=== PATIENT | male | born 1955 | race Caucasian/White ===

== ENCOUNTER 2016-02-24 10:28 | Emergency (ER) | payer MEDICARE ==
[2016-02-24 10:49] VITALS: RESP 18
[2016-02-24] MEDS ORDERED: DIPHENOX-ATROP STARTER PACK 8 TAB BTL PO STA (11:06)
[2016-02-24] MEDS ORDERED: DIPHENOX-ATROP 2.5-0.025 MG 1 EACH TAB PO STA (11:06)
[2016-02-24] MEDS ORDERED: SODIUM CHLORIDE 0.9% 1,000 ML IV ONE (11:06)
--- NOTE | 2016-02-24 11:08 | ED ---
General Adult HPI - General Chief complaint: Nausea/Vomiting/Diarrhea Stated complaint: Vomiting/diarrhea Time Seen by Provider: 02/24/16 10:50 Source: patient, RN notes reviewed Mode of arrival: ambulatory Limitations: no limitations - History of Present Illness Initial comments: This is a 60-year-old male with a past medical history significant for prerenal renal failure. Patient comes in today because he has been vomiting for the last couple of days though he has not vomited at all in the last 24 hours. Patient states he started having significant diarrhea yesterday and continues today. Patient comes in because he believes he is dehydrated and is worried about having cause more renal failure. Patient denies any other significant medical problems he denies any drinking or smoking. Patient denies any chest pain palpitations difficulty breathing shortness of breath per patient denies any abdominal pain. Patient denies headache patient denies numbness weakness. Patient denies any lightheadedness dizziness or near syncopal episode. - Related Data Home Medications Medication Instructions Recorded Confirmed Escitalopram [Lexapro] 30 mg PO DAILY 06/05/13 02/24/16 Nitroglycerin Sl Tabs [Nitrostat] 0.4 mg SUBLINGUAL Q5M PRN 10/30/14 02/24/16 Albuterol Inhaler [Ventolin Hfa 1 - 2 puff INHALATION RT-Q6H PRN 07/22/15 Inhaler] Diphenox-Atrop 2.5-0.025 mg 2 tab PO QID PRN 07/22/15 02/24/16 [Lomotil] Levothyroxine Sodium [Synthroid] 50 mcg PO DAILY 07/22/15 02/24/16 Omeprazole [PriLOSEC] 40 mg PO DAILY 07/22/15 02/24/16 Promethazine [Phenergan] 25 mg PO Q8H PRN 07/22/15 02/24/16 Dicyclomine [Bentyl] 20 mg PO QID 10/03/15 02/24/16 cloNIDine HCL [Clonidine HCl] 0.1 mg PO TID 11/16/15 02/24/16 Allergies Allergy/AdvReac Type Severity Reaction Status Date / Time Beta-Blockers Allergy Rash/Hives Verified 02/24/16 10:49 (Beta-Adrenergic Bloc paroxetine HCl [From Paxil] AdvReac Severe ABD PAIN & Verified 02/24/16 10:49 CRAMPING Review of Systems ROS Statement: Those systems with pertinent positive or pertinent negative responses have been documented in the HPI. ROS Other: All systems not noted in ROS Statement are negative. Past Medical History Past Medical History: Coronary Artery Disease (CAD), Chest Pain / Angina, Eye Disorder, Hypertension, Myocardial Infarction ([place]), Musculoskeletal Disorder, Osteoarthritis (OA), Pneumonia, Renal Disease Additional Past Medical History / Comment(s): READING GLASSES, lumbar sacral spinal stenosis,DIVERTICULITIS, 10 MIs, blood clot in left ascending artery. Last Myocardial Infarction Date:: 2013 History of Any Multi-Drug Resistant Organisms: None Reported Past Surgical History: Back Surgery, Cholecystectomy, Heart Catheterization With Stent, Hernia Repair Additional Past Surgical History / Comment(s): COLONOSCOPY.EGD, ORIF LT ANKLE. BACK SURG. LT HAND SURGERY. RT KNEE ARTHROSC. RT ELBOW SURG. LUMBAR SPINE FUSION L3-L5 IN 1999. LUMBAR SPINE CYST REMOVAL AT L2 IN 2013. HIATAL HERNIA REPAIR, right shoulder arthroscopy, back injections, Past Anesthesia/Blood Transfusion Reactions: No Reported Reaction Date of Last Stent Placement:: 2013 Past Psychological History: No Psychological Hx Reported Smoking Status: Former smoker Past Alcohol Use History: None Reported Additional Past Alcohol Use History / Comment(s): quit smoking in 1983 SMOKED 10 -11 YEARS-1 PPD Past Drug Use History: Marijuana Additional Drug Use History / Comment(s): CURRENTLY USES MEDICAL MARIJUANA- USUALLY 2 JOINTS A DAY - Past Family History Mother Family Medical History: Thyroid Disorder Father Family Medical History: Diabetes Mellitus, Myocardial Infarction ([place]) Additional Family Medical History / Comment(s): TRIPLE BYPASS Sister(s) Family Medical History: Cancer Additional Family Medical History / Comment(s): SKIN CA General Exam - General Exam Comments Initial Comments: GENERAL: Patient is well-developed and well-nourished. Patient is nontoxic and well- hydrated and is in mild distress. ENT: Neck is soft and supple. No significant lymphadenopathy is noted. Oropharynx is clear. Slightly dry mucous membranes. Neck has full range of motion without eliciting any EYES: The sclera were anicteric and conjunctiva were pink and moist. Extraocular movements were intact and pupils were equal round and reactive to light. Eyelids were unremarkable. PULMONARY: Unlabored respirations. Good breath sounds bilaterally. No audible rales rhonchi or wheezing was noted. CARDIOVASCULAR: There is a regular rate and rhythm without any murmurs gallops or rubs. ABDOMEN: Soft and nontender with normal bowel sounds. SKIN: Skin is clear with no lesions or rashes and otherwise unremarkable. NEUROLOGIC: Patient is alert and oriented x3. Cranial nerves II through XII are grossly intact. Motor and sensory are also intact. Normal speech, volume and content. Symmetrical smile. MUSCULOSKELETAL: Normal extremities with adequate strength and full range of motion. LYMPHATICS: No significant lymphadenopathy is noted PSYCHIATRIC: Normal psychiatric evaluation. Limitations: no limitations Course Vital Signs 02/24/16 10:45 Temperature 99.0 F Pulse Rate 114 H Respiratory 18 Rate Blood Pressure 147/105 Medical Decision Making - Medical Decision Making Patient's creatinine is 1.4 to slightly elevated from norm. Patient was given a liter fluid in the emergency department. Patient was feeling better in the emergency department after he had some Lomotil as well. Patient will follow up with his primary medical care doctor in 2 days. - Lab Data Result diagrams: 02/24/16 11:13 02/24/16 11:13 Lab Results 02/24/16 02/24/16 Range/Units 11:13 11:13 WBC 10.5 (3.8-10.6) k/uL RBC 5.85 (4.30-5.90) m/uL Hgb 17.6 H D (13.0-17.5) gm/dL Hct 48.4 (39.0-53.0) % MCV 82.7 D (80.0-100.0) fL MCH 30.0 (25.0-35.0) pg MCHC 36.3 (31.0-37.0) g/dL RDW 13.3 (11.5-15.5) % Plt Count 294 (150-450) k/uL Neutrophils % 74 % Lymphocytes % 15 % Monocytes % 7 % Eosinophils % 1 % Basophils % 0 % Neutrophils # 7.8 H (1.3-7.7) k/uL Lymphocytes # 1.6 (1.0-4.8) k/uL Monocytes # 0.8 (0-1.0) k/uL Eosinophils # 0.1 (0-0.7) k/uL Basophils # 0.0 (0-0.2) k/uL Hyperchromasia Slight Sodium 136 L (137-145) mmol/L Potassium 3.8 (3.5-5.1) mmol/L Chloride 96 L (98-107) mmol/L Carbon Dioxide 21 L (22-30) mmol/L Anion Gap 19 mmol/L BUN 48 H (9-20) mg/dL Creatinine 1.42 H (0.66-1.25) mg/dL Est GFR (MDRD) Af Amer >60 (>60 ml/min/1.73 sqM) Est GFR (MDRD) Non-Af 51 (>60 ml/min/1.73 sqM) Glucose 123 H (74-99) mg/dL Calcium 9.8 (8.4-10.2) mg/dL Total Bilirubin 1.0 (0.2-1.3) mg/dL AST 36 (17-59) U/L ALT 59 (21-72) U/L Alkaline Phosphatase 115 (38-126) U/L Total Protein 7.9 (6.3-8.2) g/dL Albumin 4.8 (3.5-5.0) g/dL Disposition Clinical Impression: Renal insufficiency, Diarrhea, Dehydration Disposition: HOME SELF-CARE Instructions: Acute Diarrhea (ED) Additional Instructions: Patient she get blood drawn on the . And follow-up with his primary that afternoon. Referrals: Miki Nava DO [Primary Care Provider] - 1-2 days Time of Disposition: 12:16
[2016-02-24 11:43] LABS: Basophils % (A) 0 %; CH 30.9; CHCM 37.4; Eosinophils # (A) 0.1 k/uL (0-0.7); Eosinophils % (A) 1 %; HCT 48.4 % (39.0-53.0); HDW 2.91; Hyperchromasia Slight; Luc # (Auto) 0.23; Luc % (Auto) 2; Lymphocytes # (A) 1.6 k/uL (1.0-4.8); Lymphocytes % (A) 15 %; MCHC 36.3 g/dL (31.0-37.0); Mean Platelet Volume 6.7; Monocytes # (A) 0.8 k/uL (0-1.0); Monocytes % (A) 7 %; Neutrophils # (A) 7.8 k/uL (1.3-7.7); Neutrophils % (A) 74 %; RBC 5.85 m/uL (4.30-5.90); RDW 13.3 % (11.5-15.5); WBC 10.5 k/uL (3.8-10.6); WBC (Perox) 11.15
[2016-02-24 11:52] LABS: HGB 17.6 gm/dL (13.0-17.5); MCV 82.7 fL (80.0-100.0)
[2016-02-24 11:56] LABS: ALT 59 U/L (21-72); AST 36 U/L (17-59); Alkaline Phosphatase 115 U/L (38-126); Anion Gap 19 mmol/L; Blood Urea Nitrogen 48 mg/dL (9-20); Calcium 9.8 mg/dL (8.4-10.2); Carbon Dioxide 21 mmol/L (22-30); Chloride 96 mmol/L (98-107); Glucose 123 mg/dL (74-99); Non-African American GFR(MDRD) 51 (>60 ml/min/1.73 sqM); Potassium 3.8 mmol/L (3.5-5.1); Sodium 136 mmol/L (137-145); Total Protein 7.9 g/dL (6.3-8.2)
[2016-02-24 12:44] VITALS: BP 157/89; PULSE 68; TEMP 97.9
== END 2016-02-24 12:44 | disposition home or self-care (01) ==
LOC: EC 10:28
DX: N28.9 Disorder of kidney and ureter, unspecified (principal); E86.0 Dehydration; R19.7 Diarrhea, unspecified; Z79.899 Other long term (current) drug therapy; Z88.8 Allergy status to other drugs, medicaments and biological substances; Z87.891 Personal history of nicotine dependence; I10 Essential (primary) hypertension
CPT/HCPCS: 36415; 80053; 85025; 96360; 99284

== ENCOUNTER → 2016-02-26 | Outpatient (CLI) | payer MEDICARE ==
[2016-02-26 13:50] LABS: ALT 47 U/L (21-72); AST 35 U/L (17-59); Alkaline Phosphatase 109 U/L (38-126); Anion Gap 10 mmol/L; Blood Urea Nitrogen 17 mg/dL (9-20); Calcium 9.5 mg/dL (8.4-10.2); Carbon Dioxide 32 mmol/L (22-30); Chloride 98 mmol/L (98-107); Glucose 91 mg/dL (74-99); Non-African American GFR(MDRD) >60 (>60 ml/min/1.73 sqM); Potassium 4.3 mmol/L (3.5-5.1); Sodium 140 mmol/L (137-145); Total Bilirubin 0.5 mg/dL (0.2-1.3); Total Protein 6.7 g/dL (6.3-8.2)
== END | disposition home or self-care (01) ==
LOC: LABWHC1 12:36
PROVIDERS: ATTEND Emergency Medicine
DX: R19.7 Diarrhea, unspecified (principal); E86.0 Dehydration
CPT/HCPCS: 36415; 80053

== ENCOUNTER 2016-05-04 08:12 | Inpatient (IN) | payer MEDICARE ==
[2016-05-04] MEDS ORDERED: ONDANSETRON 4 MG/2 ML VIAL IVP STA (08:24)
[2016-05-04] MEDS ORDERED: SODIUM CHLORIDE 0.9% 1,000 ML IV ONE ×2 (08:24→09:16)
[2016-05-04] MEDS ORDERED: DICYCLOMINE 10 MG/ML 2 ML AMP IM STA (08:24)
--- NOTE | 2016-05-04 08:33 | ED ---
Nausea/Vomiting/Diarrhea HPI - General Chief complaint: Nausea/Vomiting/Diarrhea Stated complaint: Vomiting/dehydration Time Seen by Provider: 05/04/16 08:19 Source: patient Mode of arrival: wheelchair Limitations: no limitations - History of Present Illness Initial comments: This is a 61-year-old male with a history of what appears to be irritable bowel syndrome with multiple hospital visits and admissions in the past who presents emergency department for nausea, vomiting, and diarrhea. He states that the symptoms started yesterday. He's had multiple episodes of vomiting and has not been able to count them. He states that the last couple of times that he's vomited he has noticed some blood mixed in his vomit. It did not start out this way. He also admits to generalized abdominal cramping and one episode of diarrhea that was nonbloody. He does not state that the abdominal pain is located in the 1 spot of the abdomen. He states that just feels a generalized cramping. The patient is on Bentyl at home and also Protonix. He is seen Dr. Garland in the past who has worked him up for this recurring problem. He's also had an upper GI study performed. The patient denies any fevers or chills. No chest pain or shortness of breath. No dysuria or hematuria. He states that when this happens he gets very dehydrated and gets kidney failure. - Related Data Home Medications Medication Instructions Recorded Confirmed Escitalopram [Lexapro] 20 mg PO DAILY 06/05/13 05/04/16 Nitroglycerin Sl Tabs [Nitrostat] 0.4 mg SUBLINGUAL Q5M PRN 10/30/14 05/04/16 Albuterol Inhaler [Ventolin Hfa 1 - 2 puff INHALATION RT-Q6H PRN 07/22/15 Inhaler] cloNIDine HCL [Clonidine HCl] 0.1 mg PO TID 11/16/15 05/04/16 Levothyroxine Sodium [Synthroid] 75 mcg PO DAILY 05/04/16 05/04/16 Omeprazole 20 mg PO DAILY 05/04/16 05/04/16 Allergies Allergy/AdvReac Type Severity Reaction Status Date / Time Beta-Blockers Allergy Rash/Hives Verified 05/04/16 08:17 (Beta-Adrenergic Bloc paroxetine HCl [From Paxil] AdvReac Severe ABD PAIN & Verified 05/04/16 08:17 CRAMPING Review of Systems ROS Statement: Those systems with pertinent positive or pertinent negative responses have been documented in the HPI. ROS Other: All systems not noted in ROS Statement are negative. Past Medical History Past Medical History: Coronary Artery Disease (CAD), Chest Pain / Angina, Eye Disorder, Hypertension, Myocardial Infarction ([place]), Musculoskeletal Disorder, Osteoarthritis (OA), Pneumonia, Renal Disease Additional Past Medical History / Comment(s): READING GLASSES, lumbar sacral spinal stenosis,DIVERTICULITIS, 10 MIs, blood clot in left ascending artery. Last Myocardial Infarction Date:: 2013 History of Any Multi-Drug Resistant Organisms: None Reported Past Surgical History: Back Surgery, Cholecystectomy, Heart Catheterization With Stent, Hernia Repair Additional Past Surgical History / Comment(s): COLONOSCOPY.EGD, ORIF LT ANKLE. BACK SURG. LT HAND SURGERY. RT KNEE ARTHROSC. RT ELBOW SURG. LUMBAR SPINE FUSION L3-L5 IN 1999. LUMBAR SPINE CYST REMOVAL AT L2 IN 2013. HIATAL HERNIA REPAIR, right shoulder arthroscopy, back injections, Past Anesthesia/Blood Transfusion Reactions: No Reported Reaction Date of Last Stent Placement:: 2013 Past Psychological History: No Psychological Hx Reported Smoking Status: Former smoker Past Alcohol Use History: None Reported Additional Past Alcohol Use History / Comment(s): quit smoking in 1983 SMOKED 10 -11 YEARS-1 PPD Past Drug Use History: Marijuana Additional Drug Use History / Comment(s): CURRENTLY USES MEDICAL MARIJUANA- USUALLY 2 JOINTS A DAY - Past Family History Mother Family Medical History: Thyroid Disorder Father Family Medical History: Diabetes Mellitus, Myocardial Infarction ([place]) Additional Family Medical History / Comment(s): TRIPLE BYPASS Sister(s) Family Medical History: Cancer Additional Family Medical History / Comment(s): SKIN CA General Exam - General Exam Comments Initial Comments: Constitutional: Awake alert the patient appears uncomfortable Head: Normocephalic atraumatic Eyes: no conjunctival injection No scleral icterus EOMI Neck: No JVD Supple Heart: Tachycardia normal S1-S2 no murmurs Lungs: Clear to auscultation bilaterally No wheezing No rales Abdomen: Soft nondistended no objective tenderness on examination Extremities: Non edematous DP pulses intact Radial pulses intact Neuro: A&Ox3 No focal neurologic deficits Psych: Appropriate mood and affect Limitations: no limitations Course Vital Signs 05/04/16 05/04/1605/04/17 08:14 09:17 10:44 Temperature 96.4 F L 97.9 F Pulse Rate 114 H 94 95 Respiratory 22 18 18 Rate Blood Pressure 138/98 165/110 165/95 O2 Sat by Pulse 99 97 94 L Oximetry 05/04/16 11:30 Temperature Pulse Rate 94 Respiratory 18 Rate Blood Pressure 170/107 O2 Sat by Pulse 96 Oximetry - Reevaluation(s) Reevaluation #1: 05/04/16 08:42 EKG showing sinus tachycardia with a rate of 106. No ST segment changes or T- wave inversions. QTC is 470. Other intervals are normal. No ectopy. Medical Decision Making - Medical Decision Making This is a 61-year-old male presents emergency room for nausea and vomiting. He states that he's had this multiple times. The patient has multiple metabolic derangements including an acute kidney injury and lactic acidosis which is typical for him when this happens. The patient has not been hypotensive and has no signs of sepsis and thus I do not feel that the lactic acidosis is from a infectious cause. I did get a computed tomography scan because of his significant leukocytosis and it shows a possible small bowel obstruction proximally. I spoke with Dr. Malagon about this who recommended an NG tube and we placed on consult. Dr. Nava accepts the admission for fluid hydration. The patient is currently comfortable and has not had any episodes of vomiting since getting Zofran. Will be admitted for monitoring. All questions were answered. - Lab Data Result diagrams: 05/04/16 08:32 05/04/16 08:32 Lab Results 05/04/16 05/04/16 05/04/16 Range/Units 08:32 08:32 08:32 WBC 25.1 H* (3.8-10.6) k/uL RBC 6.34 H (4.30-5.90) m/uL Hgb 18.7 H D (13.0-17.5) gm/dL Hct 52.3 (39.0-53.0) % MCV 82.5 (80.0-100.0) fL MCH 29.6 (25.0-35.0) pg MCHC 35.8 (31.0-37.0) g/dL RDW 13.9 (11.5-15.5) % Plt Count 374 (150-450) k/uL Neutrophils % (Manual) 80.0 % Band Neutrophils % 2.0 % Lymphocytes % (Manual) 10.5 % Monocytes % (Manual) 7.5 % Neutrophils # (Manual) 20.6 H (1.3-7.7) k/uL Lymphocytes # (Manual) 2.6 (1.0-4.8) k/uL Monocytes # (Manual) 1.9 H (0-1.0) k/uL Nucleated RBCs 0 (0-0) /100 WBC Manual Slide Review Performed Large Platelets Present Hyperchromasia Slight Sodium 139 (137-145) mmol/L Potassium 3.8 (3.5-5.1) mmol/L Chloride 93 L (98-107) mmol/L Carbon Dioxide 13 L (22-30) mmol/L Anion Gap 33 mmol/L BUN 30 H (9-20) mg/dL Creatinine 4.96 H (0.66-1.25) mg/dL Est GFR (MDRD) Af Amer 14 (>60 ml/min/1.73 sqM) Est GFR (MDRD) Non-Af 12 (>60 ml/min/1.73 sqM) Glucose 182 H (74-99) mg/dL Plasma Lactic Acid [place] (0.7-2.0) mmol/L Calcium 12.0 H (8.4-10.2) mg/dL Magnesium 2.2 (1.6-2.3) mg/dL Total Bilirubin 1.5 H (0.2-1.3) mg/dL AST 45 (17-59) U/L ALT 47 (21-72) U/L Alkaline Phosphatase 175 H (38-126) U/L Total Protein 11.0 H (6.3-8.2) g/dL Albumin 6.3 H (3.5-5.0) g/dL Amylase 87 (30-110) U/L Lipase 122 (23-300) U/L Blood Type B Negative Blood Type Recheck No Antibody Screen NEGATIVE Spec Expiration Date 05/07/2016 - 233105/04/16 Range/Units 08:32 WBC (3.8-10.6) k/uL RBC (4.30-5.90) m/uL Hgb (13.0-17.5) gm/dL Hct (39.0-53.0) % MCV (80.0-100.0) fL MCH (25.0-35.0) pg MCHC (31.0-37.0) g/dL RDW (11.5-15.5) % Plt Count (150-450) k/uL Neutrophils % (Manual) % Band Neutrophils % % Lymphocytes % (Manual) % Monocytes % (Manual) % Neutrophils # (Manual) (1.3-7.7) k/uL Lymphocytes # (Manual) (1.0-4.8) k/uL Monocytes # (Manual) (0-1.0) k/uL Nucleated RBCs (0-0) /100 WBC Manual Slide Review Large Platelets Hyperchromasia Sodium (137-145) mmol/L Potassium (3.5-5.1) mmol/L Chloride (98-107) mmol/L Carbon Dioxide (22-30) mmol/L Anion Gap mmol/L BUN (9-20) mg/dL Creatinine (0.66-1.25) mg/dL Est GFR (MDRD) Af Amer (>60 ml/min/1.73 sqM) Est GFR (MDRD) Non-Af (>60 ml/min/1.73 sqM) Glucose (74-99) mg/dL Plasma Lactic Acid [place] 5.2 H* (0.7-2.0) mmol/L Calcium (8.4-10.2) mg/dL Magnesium (1.6-2.3) mg/dL Total Bilirubin (0.2-1.3) mg/dL AST (17-59) U/L ALT (21-72) U/L Alkaline Phosphatase (38-126) U/L Total Protein (6.3-8.2) g/dL Albumin (3.5-5.0) g/dL Amylase (30-110) U/L Lipase (23-300) U/L Blood Type Blood Type Recheck Antibody Screen Spec Expiration Date Disposition Clinical Impression: JOSIE (acute kidney injury), Lactic acidosis, SBO (small bowel obstruction) Disposition: ADMITTED IP TO THIS [facility] Condition: Stable
[2016-05-04 08:53] LABS: CH 30.9; CHCM 37.5; HCT 52.3 % (39.0-53.0); HDW 2.93; HGB 18.7 gm/dL (13.0-17.5); Hyperchromasia Slight; MCH 29.6 pg (25.0-35.0); MCHC 35.8 g/dL (31.0-37.0); MCV 82.5 fL (80.0-100.0); Mean Platelet Volume 6.9; RBC 6.34 m/uL (4.30-5.90); RDW 13.9 % (11.5-15.5); WBC (Perox) 27.22
[2016-05-04 08:55] LABS: WBC 25.1 k/uL (3.8-10.6)
[2016-05-04 08:59] LABS: Magnesium 2.2 mg/dL (1.6-2.3); Potassium 3.8 mmol/L (3.5-5.1); Total Bilirubin 1.5 mg/dL (0.2-1.3)
[2016-05-04 09:13] LABS: Add Differential Manual Differential
[2016-05-04 09:15] LABS: Large Platelets Present; Manual Review Performed; Nucleated Red Blood Cells 0 /100 WBC (0-0); Total Cells Counted 200
--- NOTE | 2016-05-04 09:17 | XR ---
EXAMINATION TYPE: XR abdomen acute w cxr DATE OF EXAM: 05/04/2016 9:01 AM COMPARISON: Previous exam, multiple view abdomen with chest x-ray 30 March 2015 HISTORY: Pain TECHNIQUE: Supine, upright, and left side down lateral decubitus views of the abdomen are obtained. FINDINGS: Surgical clips are present within the abdomen as on prior exam, postop change status post lumbar fusion. Sclerotic density and lucency may be indicative of osteonecrosis within the femoral he ads, there is no collapse. There are air-fluid levels without bowel obstruction. No pneumoperitoneum. Lung bases are clear. Cardiomediastinal silhouette, pulmonary vascularity and farhad no evident pneumo thorax or pleural effusion. IMPRESSION: Nonobstructive bowel gas pattern.
[2016-05-04] MEDS: SODIUM CHLORIDE 0.9% 1,000 ML IV SCH ×2 (09:21→16:51)
--- NOTE | 2016-05-04 10:06 | CT ---
EXAMINATION TYPE: CT abdomen pelvis wo con DATE OF EXAM: 05/04/2016 9:51 AM HISTORY: hematemesis CT DLP: 1133 mGycm. Automated Exposure Control for Dose Reduction was Utilized. TECHNIQUE: CT scan of the abdomen and pelvis is performed without oral or IV contrast. COMPARISON: CT abdomen and pelvis January 09, 2016. FINDINGS: Within the limitations of a non-contrast study, the following observations are made. LUNG BASES: Some linear scarring in both lung bases is redemonstrated and felt stable. Coronary arter y calcification or stent in the RCA distribution is redemonstrated. LIVER/GB: Cholecystectomy clips are again seen. Liver is diffusely low dense consistent with fatty in filtration. There is simple appearing 1.5 cm cyst in the inferior right hepatic lobe on axial image 2 8 redemonstrated. PANCREAS: No significant abnormality is seen. SPLEEN: There is 1.2 cm splenule in the inferior splenic hilum on axial image 32 redemonstrated. ADRENALS: No significant abnormality is seen. KIDNEYS: No renal stones or hydronephrosis is evident bilaterally. BOWEL: Evaluation bowel is suboptimal due to lack of enteric contrast. There is stable small hiatal h ernia. There is air-fluid level in distended stomach. There is air-fluid level and prominent first po rtion of duodenum. There is fluid prominence of the duodenal sweep. After ligament of Treitz proximal jejunum extends to right of abdomen with transition into nondistended small bowel in the remainder o f abdomen. There is nondistended colon identified. Normal-appearing appendix is seen from cecum. Ther e is occasional diverticula in the colon. No acute diverticulitis is evident. GENITAL ORGANS: No gross abnormality seen. LYMPH NODES: No greater than 1cm abdominal or pelvic lymph nodes are appreciated. OSSEOUS STRUCTURES: Postsurgical change in lower lumbar spine with bilateral laminectomy defects and spinous process resection is redemonstrated. There are posterior interpedicular rods and screws from L3 through L5 levels bilaterally redemonstrated. There is hemangioma in the right L1 vertebral body l evel redemonstrated. There is multilevel spurring in the visualized thoracic spine. There is linear sclerosis in both femoral heads superior aspect consistent with bilateral avascular n ecrosis. OTHER: Surgical clips left midabdomen is noted anteriorly on axial image 38. Additional clip is seen just right of midline on axial image 29. There is moderate calcified atherosclerotic change of aorta and branch vessels. IMPRESSION: There is dilated fluid still filled stomach with distention of duodenal sweep, just past ligament of Treitz jejunum goes back to right of midline with transition into nondistended bowel. A p roximal small bowel obstruction related to adhesions needs to BE considered. Advise nasogastric tube decompression and surgical consultation.
[2016-05-04] MEDS ORDERED: ACETAMINOPHEN IV (For NPO) 1,000 MG in EMPTY BAG 1 BAG IVPB ONE (11:36)
[2016-05-04] MEDS ORDERED: FAMOTIDINE 20 MG/2 ML VIAL IV STA (11:50)
[2016-05-04] MEDS ORDERED: NALOXONE 0.4 MG/ML 1 ML VIAL IV PRN (11:52)
[2016-05-04 13:54] LABS: Appearance,Urine Cloudy (Clear); Bacteria,Urine Rare /hpf; Bilirubin,Urine Negative (Negative); Glucose,Urine (UA) Negative (Negative); Ketones,Urine Trace (Negative); Leukocyte Esterase,Urine Negative (Negative); Mucus,Urine Few /hpf; Nitrite,Urine Negative (Negative); PH, Urine 5.5 (5.0-8.0); Particle Count 18183; Protein,Urine 2+ (Negative); RBC,Urine 1 /hpf (0-5); Specific Gravity,Urine 1.015 (1.001-1.035); UA Billing (MACRO vs. MICRO) MICRO; Urobilinogen,Urine <2.0 mg/dL (<2.0); WBC,Urine 9 /hpf (0-5)
[2016-05-04] MEDS: ACETAMINOPHEN IV (For NPO) 1,000 MG in EMPTY BAG 1 BAG IVPB PRN (18:10)
[2016-05-04] MEDS: hydrALAZINE HCL 20 MG/ML 1 ML VIAL IVP PRN (18:13)
[2016-05-04] MEDS: ONDANSETRON 4 MG/2 ML VIAL IVP PRN (19:45)
[2016-05-04] MEDS: FAMOTIDINE 20 MG TAB PO SCH (21:29)
[2016-05-05] MEDS: ACETAMINOPHEN IV (For NPO) 1,000 MG in EMPTY BAG 1 BAG IVPB PRN ×2 (00:03→07:31)
[2016-05-05] MEDS: SODIUM CHLORIDE 0.9% 1,000 ML IV SCH ×3 (00:44→16:51)
[2016-05-05] MEDS: LEVOTHYROXINE 75 MCG TAB PO SCH (05:07)
[2016-05-05] MEDS: FAMOTIDINE 20 MG TAB PO SCH (07:31)
[2016-05-05] MEDS: ESCITALOPRAM 20 MG TAB PO SCH (07:31)
[2016-05-05] MEDS: ONDANSETRON 4 MG/2 ML VIAL IVP PRN ×3 (07:35→23:05)
[2016-05-05 07:57] LABS: Basophils # (A) 0.1 k/uL (0-0.2); Basophils % (A) 0 %; CH 30.7; CHCM 36.9; Eosinophils % (A) 0 %; HCT 43.5 % (39.0-53.0); HDW 2.95; Luc # (Auto) 0.31; Luc % (Auto) 2; Lymphocytes # (A) 1.9 k/uL (1.0-4.8); Lymphocytes % (A) 12 %; MCH 29.9 pg (25.0-35.0); MCHC 35.7 g/dL (31.0-37.0); MCV 83.7 fL (80.0-100.0); Mean Platelet Volume 7.5; Monocytes # (A) 0.9 k/uL (0-1.0); Monocytes % (A) 6 %; Neutrophils # (A) 12.7 k/uL (1.3-7.7); Neutrophils % (A) 80 %; RDW 13.9 % (11.5-15.5); WBC 15.9 k/uL (3.8-10.6)
[2016-05-05 08:08] LABS: HGB 15.5 gm/dL (13.0-17.5)
[2016-05-05 08:20] LABS: Calcium 9.6 mg/dL (8.4-10.2); Potassium 4.2 mmol/L (3.5-5.1); Total Bilirubin 1.5 mg/dL (0.2-1.3); Total Protein 7.4 g/dL (6.3-8.2)
[2016-05-05] MEDS ORDERED: Magnesium Replacement Protocol 1 EACH MISC MISCELLANE PRN (08:28)
[2016-05-05] MEDS: hydrALAZINE HCL 20 MG/ML 1 ML VIAL IVP PRN ×2 (09:05→15:29)
[2016-05-05] MEDS: MAGNESIUM SULFATE-D5W PMX 1 GM in DEXTROSE/WATER 1 100ML.BAG IVPB SCH ×2 (09:08→09:38)
[2016-05-05] MEDS: PANTOPRAZOLE 40 MG/10 ML VIAL IVP SCH (09:44)
[2016-05-05] MEDS: IOHEXOL 350 MG/ML 25 ML BOTTLE (ORAL USE) PO PRN ×2 (11:51→13:05)
--- NOTE | 2016-05-05 13:12 | P.GSCN ---
History of Present Illness Consult date: 05/04/16 Reason for Consult: Possible small bowel obstruction Requesting physician: Ebenezer Doran History of present illness: Patient is a 61-year-old male, referred from Dr. Nava, with a medical history significant for diverticulitis and irritable bowel syndrome. Surgical history significant for cholecystectomy, hernia repair, colonoscopy, and EGD. Patient presented to the hospital with chief complaint of nausea and vomiting that started 1 day prior to admission associated with abdominal cramping and one episode of diarrhea that was nonbloody. No history of fevers, chills, shortness of breath, or chest pain. Acute abdominal series with nonobstructive bowel gas pattern. CT of the abdomen and pelvis with evidence of proximal bowel obstruction possible secondary to adhesions. Surgical consult requested for possible small bowel obstruction. Upon evaluation, patient is feeling better. Patient denies chills, nausea, or vomiting. Patient denies abdominal pain. Patient reports flatus without bowel movement. Nasogastric drainage with 1400 mL of brownish output in last 24 hours. Urine output adequate. Patient is urinating without difficulty. WBC decreased to 15.9. Hemoglobin 15.5. Past Medical History Past Medical History: Coronary Artery Disease (CAD), Chest Pain / Angina, Hyperlipidemia, Hypertension, Myocardial Infarction ([place]), Musculoskeletal Disorder, Osteoarthritis (OA), Pneumonia, Renal Disease Additional Past Medical History / Comment(s): Past abdominal pain with N/V and dehydration, renal problems with dehydration, lumbar sacral spinal stenosis, chronic low back pain with bilateral sciatica, pinched nerves in back, DIVERTICULITIS, 10 MIs, blood clot in left ascending artery, IBS, bronchitis, migraines, numbness/tingling bilateral feet. Last Myocardial Infarction Date:: 2013 History of Any Multi-Drug Resistant Organisms: None Reported Past Surgical History: Back Surgery, Cholecystectomy, Heart Catheterization With Stent, Hernia Repair, Orthopedic Surgery Additional Past Surgical History / Comment(s): COLONOSCOPY, EGD, ORIF LT ANKLE. BACK SURGERIES L/S fusion L3-L5, LT HAND SURGERY, RT KNEE ARTHROSC, RT ELBOW SURG, LUMBAR SPINE CYST REMOVAL AT L2 IN 2013, HIATAL HERNIA REPAIR, right shoulder arthroscopy, back injections. Past Anesthesia/Blood Transfusion Reactions: No Reported Reaction Date of Last Stent Placement:: 2013 Past Psychological History: No Psychological Hx Reported Additional Psychological History / Comment(s): Pt resides with his spouse. He uses a cane to ambulate. He drives. Smoking Status: Former smoker Past Alcohol Use History: None Reported Additional Past Alcohol Use History / Comment(s): Pt started smoking in 1971 and quit smoking in 1983. Past Drug Use History: Marijuana Additional Drug Use History / Comment(s): CURRENTLY USES MEDICAL MARIJUANA- USUALLY 2 JOINTS A DAY - Past Family History Mother Family Medical History: Thyroid Disorder Father Family Medical History: Diabetes Mellitus, Myocardial Infarction ([place]) Additional Family Medical History / Comment(s): [place], [place] in his 50's or 60's. from MVA when he was in his 80's Sister(s) Family Medical History: Cancer Additional Family Medical History / Comment(s): SKIN CA Medications and Allergies Home Medications Medication Instructions Recorded Confirmed Type Escitalopram [Lexapro] 20 mg PO DAILY 06/05/13 05/04/16 History Nitroglycerin Sl Tabs [Nitrostat] 0.4 mg SUBLINGUAL Q5M PRN 10/30/14 05/04/16 History Albuterol Inhaler [Ventolin Hfa 1 - 2 puff INHALATION RT-Q6H PRN 07/22/15 History Inhaler] cloNIDine HCL [Clonidine HCl] 0.1 mg PO TID 11/16/15 05/04/16 History Levothyroxine Sodium [Synthroid] 75 mcg PO DAILY 05/04/16 05/04/16 History Omeprazole 20 mg PO DAILY 05/04/16 05/04/16 History Allergies Allergy/AdvReac Type Severity Reaction Status Date / Time Beta-Blockers Allergy Rash/Hives Verified 05/04/16 08:17 (Beta-Adrenergic Bloc paroxetine HCl [From Paxil] AdvReac Severe ABD PAIN & Verified 05/04/16 08:17 CRAMPING Surgical - Exam Vital Signs Temp Pulse Resp BP Pulse Ox 96.4 F L 114 H 22 138/98 99 05/04/16 08:14 05/04/16 08:14 05/04/16 08:14 05/04/16 08:14 05/04/16 08:14 GENERAL: Pt awake and alert, well-appearing, well-nourished, and in no acute distress. HEAD: Atraumatic, normocephalic. EYES: Pupils equal, round, and reactive to light, extraocular movements intact, sclera anicteric, conjunctiva are normal. ENT: Moist mucous membranes. Nasogastric tube to low intermittent suction with brownish output. NECK:Supple without lymphadenopathy or JVD. LUNGS: Breath sounds clear to auscultation bilaterally. No wheezes, rales, or rhonchi. HEART: Heart S1, S2, no S3 or S4. Regular rate and rhythm. No murmurs, rubs or gallops. ABDOMEN: Soft, nontender, nondistended, normoactive bowel sounds. No guarding, no rebound. No masses or organomegaly appreciated. EXTREMITIES: Palpable peripheral pulses. No edema. No calf tenderness. NEUROLOGICAL: Pt oriented x 3. No focal deficits noted. Strength and sensation grossly intact. PSYCH: Normal mood, normal affect. SKIN: Warm, dry, intact. No rashes or lesions. Results - Labs 05/05/16 07:23 05/05/16 07:23 Abnormal Lab Results - Last 24 Hours (Table) 05/04/16 05/05/16 05/05/16 Range/Units 13:36 07:23 07:23 WBC 15.9 H (3.8-10.6) k/uL Neutrophils # 12.7 H (1.3-7.7) k/uL BUN 30 H (9-20) mg/dL Creatinine 1.49 H (0.66-1.25) mg/dL Glucose 112 H (74-99) mg/dL Total Bilirubin 1.5 H (0.2-1.3) mg/dL AST 125 H (17-59) U/L Urine Protein 2+ H (Negative) Urine Ketones Trace H (Negative) Urine Blood Moderate H (Negative) Urine WBC 9 H (0-5) /hpf Urine Bacteria Rare H (None) /hpf Hyaline Casts 7 H (0-2) /lpf Urine Mucus Few H (None) /hpf Diabetes panel 05/05/16 Range/Units 07:23 Sodium 141 (137-145) mmol/L Potassium 4.2 (3.5-5.1) mmol/L Chloride 104 (98-107) mmol/L Carbon Dioxide 22 (22-30) mmol/L BUN 30 H (9-20) mg/dL Creatinine 1.49 H (0.66-1.25) mg/dL Glucose 112 H (74-99) mg/dL Calcium 9.6 (8.4-10.2) mg/dL AST 125 H (17-59) U/L ALT 48 (21-72) U/L Alkaline Phosphatase 115 (38-126) U/L Total Protein 7.4 (6.3-8.2) g/dL Albumin 4.5 (3.5-5.0) g/dL Calcium panel 05/05/16 Range/Units 07:23 Calcium 9.6 (8.4-10.2) mg/dL Albumin 4.5 (3.5-5.0) g/dL Pituitary panel 05/05/16 Range/Units 07:23 Sodium 141 (137-145) mmol/L Potassium 4.2 (3.5-5.1) mmol/L Chloride 104 (98-107) mmol/L Carbon Dioxide 22 (22-30) mmol/L BUN 30 H (9-20) mg/dL Creatinine 1.49 H (0.66-1.25) mg/dL Glucose 112 H (74-99) mg/dL Calcium 9.6 (8.4-10.2) mg/dL Adrenal panel 05/05/16 Range/Units 07:23 Sodium 141 (137-145) mmol/L Potassium 4.2 (3.5-5.1) mmol/L Chloride 104 (98-107) mmol/L Carbon Dioxide 22 (22-30) mmol/L BUN 30 H (9-20) mg/dL Creatinine 1.49 H (0.66-1.25) mg/dL Glucose 112 H (74-99) mg/dL Calcium 9.6 (8.4-10.2) mg/dL Total Bilirubin 1.5 H (0.2-1.3) mg/dL AST 125 H (17-59) U/L ALT 48 (21-72) U/L Alkaline Phosphatase 115 (38-126) U/L Total Protein 7.4 (6.3-8.2) g/dL Albumin 4.5 (3.5-5.0) g/dL - Imaging Abdominal x-ray: report reviewed CT scan - chest: report reviewed US - abdomen: report reviewed Assessment and Plan Plan: Impression: 1. Abdominal pain associated with nausea and vomiting, present on admission, suspect secondary to small bowel obstruction. Plan: 1. Repeat computed tomography scan of abdomen and pelvis with oral contrast. Continue IV hydration. Continue PPI. Continue supportive treatment and pain management. Keep patient nothing by mouth. Continue to follow medical service. The above impression and plan have been discussed and directed by Dr. Fermin. Adryan KONG acting as scribe for Dr. Fermin.
--- NOTE | 2016-05-05 15:29 | P.HPIM ---
History of Present Illness H&P Date: 05/05/16 Chief Complaint: Nausea and vomiting Patient is a 61-year-old male, patient of Dr. Miki Nava in the outpatient setting with medical history significant for coronary artery disease with previous stent placement, angina, GERD, hypertension, myocardial infarction , osteoarthritis, renal disease, lumbosacral spinal stenosis, and opiate dependence with last opioid ingestion several months ago. Patient presented to the emergency department with complaints of abdominal pain associated with nausea, vomiting, and diarrhea onset 1 day. No history of fevers, chills, shortness of breath, chest pain, melena, hematemesis, or hematochezia. Admission lab work with evidence of severe dehydration and acute kidney injury. CT of abdomen and pelvis with evidence of possible small bowel obstruction. Patient was fluid resuscitated with 2 L of normal saline, nasogastric tube was inserted for small bowel decompression, and consult was requested to Dr. Fermin for surgical service. This morning, patient is feeling better. Currently denies nausea, vomiting, or diarrhea. Patient denies abdominal pain. Afebrile. Nasogastric tube remains in place to low intermittent suction with 1400 mL of brownish output in last 24 hours. Patient is urinating without difficulty. Passing flatus without bowel movement. Past Medical History Past Medical History: Coronary Artery Disease (CAD), Chest Pain / Angina, Hyperlipidemia, Hypertension, Myocardial Infarction ([place]), Musculoskeletal Disorder, Osteoarthritis (OA), Pneumonia, Renal Disease Additional Past Medical History / Comment(s): Past abdominal pain with N/V and dehydration, renal problems with dehydration, lumbar sacral spinal stenosis, chronic low back pain with bilateral sciatica, pinched nerves in back, DIVERTICULITIS, 10 MIs, blood clot in left ascending artery, IBS, bronchitis, migraines, numbness/tingling bilateral feet. Last Myocardial Infarction Date:: 2013 History of Any Multi-Drug Resistant Organisms: None Reported Past Surgical History: Back Surgery, Cholecystectomy, Heart Catheterization With Stent, Hernia Repair, Orthopedic Surgery Additional Past Surgical History / Comment(s): COLONOSCOPY, EGD, ORIF LT ANKLE. BACK SURGERIES L/S fusion L3-L5, LT HAND SURGERY, RT KNEE ARTHROSC, RT ELBOW SURG, LUMBAR SPINE CYST REMOVAL AT L2 IN 2014, HIATAL HERNIA REPAIR, right shoulder arthroscopy, back injections. Past Anesthesia/Blood Transfusion Reactions: No Reported Reaction Date of Last Stent Placement:: 2013 Past Psychological History: No Psychological Hx Reported Additional Psychological History / Comment(s): Pt resides with his spouse. He uses a cane to ambulate. He drives. Smoking Status: Former smoker Past Alcohol Use History: None Reported Additional Past Alcohol Use History / Comment(s): Pt started smoking in 1971 and quit smoking in 1983. Past Drug Use History: Marijuana Additional Drug Use History / Comment(s): CURRENTLY USES MEDICAL MARIJUANA- USUALLY 2 JOINTS A DAY - Past Family History Mother Family Medical History: Thyroid Disorder Father Family Medical History: Diabetes Mellitus, Myocardial Infarction ([place]) Additional Family Medical History / Comment(s): TRIPLE [place], [place] in his 50's or 60's. from MVA when he was in his 80's Sister(s) Family Medical History: Cancer Additional Family Medical History / Comment(s): SKIN CA Medications and Allergies Home Medications Medication Instructions Recorded Confirmed Type Escitalopram [Lexapro] 20 mg PO DAILY 06/05/13 05/04/16 History Nitroglycerin Sl Tabs [Nitrostat] 0.4 mg SUBLINGUAL Q5M PRN 10/30/14 05/04/16 History Albuterol Inhaler [Ventolin Hfa 1 - 2 puff INHALATION RT-Q6H PRN 07/22/15 History Inhaler] cloNIDine HCL [Clonidine HCl] 0.1 mg PO TID 11/16/15 05/04/16 History Levothyroxine Sodium [Synthroid] 75 mcg PO DAILY 05/04/16 05/04/16 History Omeprazole 20 mg PO DAILY 05/04/16 05/04/16 History Allergies Allergy/AdvReac Type Severity Reaction Status Date / Time Beta-Blockers Allergy Rash/Hives Verified 05/04/16 08:17 (Beta-Adrenergic Bloc paroxetine HCl [From Paxil] AdvReac Severe ABD PAIN & Verified 05/04/16 08:17 CRAMPING Physical Exam Vitals: Vital Signs Temp Pulse Resp BP Pulse Ox 05/05/16 12:12 110 H 157/91 05/05/16 07:00 97.4 F L 94 17 166/96 96 05/04/16 21:51 97.9 F 118 H 16 120/73 93 L 05/04/16 19:16 108 H 16 164/74 95 Intake and Output 0305/05/16 05/05/16 06:59 14:59 22:59 Intake Total 1000 2600 Output Total 1400 800 Balance -400 1800 Intake: IV 1000 1000 Sodium Chloride 0.9% 1, 1000 1000 000 ml @ 125 mls/hr IV . Q8H CYNDIE Rx#:[id number] Intake, IV Titration 400 Amount ACETAMINOPHEN IV (For NPO 400 ) 1,000 mg In Empty Bag 1 bag @ 400 mls/hr IVPB Q6HR PRN Rx#:[id number] Oral 1200 Output: Gastric Drainage 1400 800 Other: Voiding Method Urinal # Voids 2 3 # Bowel Movements 2 GENERAL: Pt awake and alert, well-appearing, well-nourished, and in no acute distress. HEAD: Atraumatic, normocephalic. EYES: Pupils equal, round, and reactive to light, extraocular movements intact, sclera anicteric, conjunctiva are normal. ENT: Moist mucous membranes. Nasogastric tube to low intermittent suction with brownish output. NECK:Supple without lymphadenopathy or JVD. LUNGS: Breath sounds clear to auscultation bilaterally. No wheezes, rales, or rhonchi. HEART: Heart S1, S2, no S3 or S4. Regular rate and rhythm. No murmurs, rubs or gallops. ABDOMEN: Soft, nontender, nondistended, normoactive bowel sounds. No guarding, no rebound. No masses or organomegaly appreciated. EXTREMITIES: Palpable peripheral pulses. No edema. No calf tenderness. NEUROLOGICAL: Pt oriented x 3. No focal deficits noted. Strength and sensation grossly intact. PSYCH: Normal mood, normal affect. SKIN: Warm, dry, intact. No rashes or lesions. Results CBC & Chem 7: 05/05/16 07:23 05/05/16 07:23 Labs: Abnormal Lab Results - Last 24 Hours (Table) 05/05/16 05/05/16 Range/Units 07:23 07:23 WBC 15.9 H (3.8-10.6) k/uL Neutrophils # 12.7 H (1.3-7.7) k/uL BUN 30 H (9-20) mg/dL Creatinine 1.49 H (0.66-1.25) mg/dL Glucose 112 H (74-99) mg/dL Total Bilirubin 1.5 H (0.2-1.3) mg/dL AST 125 H (17-59) U/L Abdominal x-ray: report reviewed CT scan - chest: report reviewed CT scan - pelvis: report reviewed Thrombosis Risk Factor Assmnt - DVT/VTE Prophylaxis DVT/VTE Prophylaxis: Pharmacologic Prophylaxis ordered - Choose All That Apply Any of the Below Risk Factors Present?: Yes Each Factor Represents 1 point: Obesity (BMI >25) Other Risk Factors: Yes Each Risk Factor Represents 2 Points: Age 61-74 years Other congenital or acquired thrombophilia - If yes, enter type in comment: No Thrombosis Risk Factor Assessment Total Risk Factor Score: 3 Thrombosis Risk Factor Assessment Level: Moderate Risk Assessment and Plan Plan: Impression: 1. Abdominal pain associated with nausea and vomiting, present on admission, suspect secondary to small bowel obstruction. 2. Acute renal failure suspect secondary to hypovolemic intravascular perfusion suspect secondary to GI losses. 2. Leukocytosis, present on admission, suspect reactive. 3. Hypercalcemia suspect due to acute renal failure, suspect secondary to dehydration. 4. Coronary artery disease with history of myocardial infarction. 5. Hypertension. 6. Lumbosacral spinal stenosis with history of chronic back pain. 7. Anxiety and depression, stable. 8. History of diverticulitis. 9. History of nicotine dependence. 10. History of opiate dependence. 11. Medical marijuana use. Plan: 1. Repeat computed tomography scan of abdomen and pelvis with oral contrast. Continue IV hydration. Continue PPI. Continue supportive treatment and pain management. Keep patient nothing by mouth. Continue to follow with surgical service. The above impression and plan have been discussed and directed by Dr. Fermin. Adryan KONG acting as scribe for Dr. Fermin.
--- NOTE | 2016-05-05 15:47 | CT ---
EXAMINATION TYPE: CT abdomen pelvis wo con DATE OF EXAM: 05/05/2016 1:36 PM COMPARISON: Prior CT abdomen pelvis April HISTORY: Patient has no complaints at time of study. Follow up study for known small bowel obstructi on. CT DLP: 866.4 mGycm Automated exposure control for dose reduction was used. TECHNIQUE: Helical acquisition of images from the lung bases through the pelvis. FINDINGS: LUNG BASES: No significant abnormality is appreciated. AORTA: Stable LIVER/GB: Stable PANCREAS: Stable SPLEEN: Stable ADRENALS: Stable KIDNEYS: Stable REPRODUCTIVE ORGANS: No significant abnormality is seen. URINARY BLADDER: No significant abnormality is seen. BOWEL: Colonic wall thickening especially in the sigmoid is indeterminate and could be due to lack o f distention or muscular hypertrophy, colonic interposition anterior to the inferior aspect of the li maria elena is noted. NG tube is present with distal tip likely in the stomach. No bowel obstruction evident. FREE AIR: No Free Air is visible. ASCITES: None visible. PELVIC ADENOPATHY: None visualized. RETROPERITONEAL ADENOPATHY: No Retroperitoneal Adenopathy visible. OSSEOUS STRUCTURES: Stable IMPRESSION: Bowel obstruction is not evident.
[2016-05-05] MEDS: ACETAMINOPHEN IV (For NPO) 1,000 MG in EMPTY BAG 1 BAG IVPB SCH ×2 (18:06→23:06)
[2016-05-05] MEDS: HEPARIN SODIUM,PORCINE 5,000 UNIT/ML 1 ML VIAL SQ SCH (20:37)
[2016-05-06] MEDS: hydrALAZINE HCL 20 MG/ML 1 ML VIAL IVP PRN ×2 (04:12→23:02)
[2016-05-06] MEDS: ACETAMINOPHEN IV (For NPO) 1,000 MG in EMPTY BAG 1 BAG IVPB SCH ×2 (05:06→13:16)
[2016-05-06] MEDS: LEVOTHYROXINE 75 MCG TAB PO SCH (05:13)
[2016-05-06] MEDS: SODIUM CHLORIDE 0.9% 1,000 ML IV SCH ×2 (05:17→11:10)
[2016-05-06] MEDS: PANTOPRAZOLE 40 MG/10 ML VIAL IVP SCH (07:50)
[2016-05-06] MEDS: HEPARIN SODIUM,PORCINE 5,000 UNIT/ML 1 ML VIAL SQ SCH ×2 (07:50→21:10)
[2016-05-06] MEDS: ONDANSETRON 4 MG/2 ML VIAL IVP PRN (07:50)
[2016-05-06 08:39] LABS: Basophils % (A) 0 %; CH 30.4; CHCM 35.9; Eosinophils % (A) 0 %; HCT 43.2 % (39.0-53.0); HDW 2.89; HGB 14.7 gm/dL (13.0-17.5); Luc # (Auto) 0.26; Luc % (Auto) 3; Lymphocytes # (A) 1.9 k/uL (1.0-4.8); Lymphocytes % (A) 18 %; MCH 28.9 pg (25.0-35.0); MCHC 34.1 g/dL (31.0-37.0); Mean Platelet Volume 6.8; Monocytes # (A) 0.7 k/uL (0-1.0); Monocytes % (A) 7 %; Neutrophils # (A) 7.4 k/uL (1.3-7.7); Neutrophils % (A) 72 %; RBC 5.09 m/uL (4.30-5.90); WBC 10.4 k/uL (3.8-10.6); WBC (Perox) 10.91
[2016-05-06 09:01] LABS: ALT 52 U/L (21-72); AST 118 U/L (17-59); Alkaline Phosphatase 99 U/L (38-126); Anion Gap 13 mmol/L; Blood Urea Nitrogen 20 mg/dL (9-20); Calcium 9.3 mg/dL (8.4-10.2); Carbon Dioxide 22 mmol/L (22-30); Chloride 105 mmol/L (98-107); Glucose 106 mg/dL (74-99); Non-African American GFR(MDRD) >60 (>60 ml/min/1.73 sqM); Potassium 3.7 mmol/L (3.5-5.1); Sodium 140 mmol/L (137-145); Total Bilirubin 1.5 mg/dL (0.2-1.3); Total Protein 6.8 g/dL (6.3-8.2)
[2016-05-06] MEDS: cloNIDine HCL 0.1 MG TAB PO SCH ×3 (11:11→21:56)
[2016-05-06] MEDS: ESCITALOPRAM 20 MG TAB PO SCH (11:11)
--- NOTE | 2016-05-06 13:05 | P.PN ---
Subjective Patient is a 61-year-old male admitted with possible small bowel obstruction. Repeat Computed tomography scan of abdomen and pelvis from yesterday afternoon shows no evidence of bowel obstruction. Nasogastric tube has been removed. Patient is feeling better. Patient reports mild left upper quadrant abdominal pain. Denies chills, fevers, nausea, vomiting, shortness of breath, or chest pain. Patient is passing flatus and had 2 bowel movements. Patient urinating without difficulty. Patient is tolerating a clear liquid diet. Patient is asking to have his diet advanced, reports hunger. Afebrile. No evidence of leukocytosis. Objective - Vital Signs Vital signs: Vital Signs Temp 97.7 F 05/06/16 07:00 Pulse 102 H 05/06/16 07:00 Resp 17 05/06/16 07:00 BP 128/69 05/06/16 07:00 Pulse Ox 94 L 05/06/16 07:00 Intake & Output 05/05/16 05/06/16 05/06/16 18:59 06:59 18:59 Intake Total 2600 1120 720 Output Total 800 1600 400 Balance 1800 -480 320 Weight 99.79 kg Intake: IV 1000 1000 Sodium Chloride 0.9% 1, 1000 1000 000 ml @ 125 mls/hr IV . Q8H CYNDIE Rx#:[id number] Intake, IV Titration 400 Amount ACETAMINOPHEN IV (For NPO 400 ) 1,000 mg In Empty Bag 1 bag @ 400 mls/hr IVPB Q6HR PRN Rx#:[id number] Oral 1200 120 720 Output: Gastric Drainage 800 1000 400 Urine 600 Other: Voiding Method Urinal Urinal Urinal # Voids 3 2 # Bowel Movements 2 - Exam GENERAL: Pt awake and alert, well-appearing, well-nourished, and in no acute distress. HEAD: Atraumatic, normocephalic. EYES: Pupils equal, round, and reactive to light, extraocular movements intact, sclera anicteric, conjunctiva are normal. ENT: Moist mucous membranes. NECK:Supple without lymphadenopathy or JVD. LUNGS: Breath sounds clear to auscultation bilaterally. No wheezes, rales, or rhonchi. HEART: Heart S1, S2, no S3 or S4. Regular rate and rhythm. No murmurs, rubs or gallops. ABDOMEN: Soft, nontender, nondistended, normoactive bowel sounds. No guarding, no rebound. No masses or organomegaly appreciated. EXTREMITIES: Palpable peripheral pulses. No edema. No calf tenderness. NEUROLOGICAL: Pt oriented x 3. No focal deficits noted. Strength and sensation grossly intact. PSYCH: Normal mood, normal affect. SKIN: Warm, dry, intact. No rashes or lesions. - Labs CBC & Chem 7: 05/06/16 07:36 05/06/16 07:36 Labs: Abnormal Lab Results - Last 24 Hours (Table) 05/06/16 Range/Units 07:36 Glucose 106 H (74-99) mg/dL Total Bilirubin 1.5 H (0.2-1.3) mg/dL AST 118 H (17-59) U/L Assessment and Plan Plan: Impression: 1. Abdominal pain associated with nausea and vomiting, present on admission, suspect secondary to small bowel obstruction, resolved. Plan: 1. Advance diet to full liquids. Continue IV hydration. Continue PPI. Continue supportive treatment and pain management. Continue to follow with medical service. The above impression and plan have been discussed and directed by Dr. Fermin. Adryan KONG acting as scribe for Dr. Fermin.
--- NOTE | 2016-05-06 13:37 | P.PN ---
Subjective Patient is a 61-year-old male admitted with possible small bowel obstruction. Repeat Computed tomography scan of abdomen and pelvis from yesterday afternoon shows no evidence of bowel obstruction. Nasogastric tube has been removed. Patient is feeling better. Patient reports mild left upper quadrant abdominal pain. Denies chills, fevers, nausea, vomiting, shortness of breath, or chest pain. Patient is passing flatus and had 2 bowel movements. Patient urinating without difficulty. Patient is tolerating a clear liquid diet. Patient is asking to have his diet advanced, reports hunger. Afebrile. No evidence of leukocytosis. Objective - Vital Signs Vital signs: Vital Signs Temp 97.7 F 05/06/16 07:00 Pulse 102 H 05/06/16 07:00 Resp 17 05/06/16 07:00 BP 128/69 05/06/16 07:00 Pulse Ox 94 L 05/06/16 07:00 Intake & Output 05/05/16 05/06/16 05/06/16 18:59 06:59 18:59 Intake Total 2600 1120 720 Output Total 800 1600 400 Balance 1800 -480 320 Weight 99.79 kg Intake: IV 1000 1000 Sodium Chloride 0.9% 1, 1000 1000 000 ml @ 125 mls/hr IV . Q8H CYNDIE Rx#:[id number] Intake, IV Titration 400 Amount ACETAMINOPHEN IV (For NPO 400 ) 1,000 mg In Empty Bag 1 bag @ 400 mls/hr IVPB Q6HR PRN Rx#:[id number] Oral 1200 120 720 Output: Gastric Drainage 800 1000 400 Urine 600 Other: Voiding Method Urinal Urinal Urinal # Voids 3 2 # Bowel Movements 2 - Exam GENERAL: Pt awake and alert, well-appearing, well-nourished, and in no acute distress. HEAD: Atraumatic, normocephalic. EYES: Pupils equal, round, and reactive to light, extraocular movements intact, sclera anicteric, conjunctiva are normal. ENT: Moist mucous membranes. NECK:Supple without lymphadenopathy or JVD. LUNGS: Breath sounds clear to auscultation bilaterally. No wheezes, rales, or rhonchi. HEART: Heart S1, S2, no S3 or S4. Regular rate and rhythm. No murmurs, rubs or gallops. ABDOMEN: Soft, nontender, nondistended, normoactive bowel sounds. No guarding, no rebound. No masses or organomegaly appreciated. EXTREMITIES: Palpable peripheral pulses. No edema. No calf tenderness. NEUROLOGICAL: Pt oriented x 3. No focal deficits noted. Strength and sensation grossly intact. PSYCH: Normal mood, normal affect. SKIN: Warm, dry, intact. No rashes or lesions. - Labs CBC & Chem 7: 05/06/16 07:36 05/06/16 07:36 Labs: Abnormal Lab Results - Last 24 Hours (Table) 05/06/16 Range/Units 07:36 Glucose 106 H (74-99) mg/dL Total Bilirubin 1.5 H (0.2-1.3) mg/dL AST 118 H (17-59) U/L Assessment and Plan Plan: Impression and plan: 1. Abdominal pain associated with nausea and vomiting, present on admission, suspect secondary to small bowel obstruction, resolved. 2. Acute renal failure suspect secondary to hypovolemic intravascular perfusion suspect secondary to GI losses, resolved. 2. Leukocytosis, present on admission, suspect reactive, resolved. 3. Hypercalcemia suspect due to acute renal failure, suspect secondary to dehydration, resolved. 4. Coronary artery disease with history of myocardial infarction. 5. Hypertension. Will restart clonidine home dose 0.1 mg by mouth 3 times a day. 6. Lumbosacral spinal stenosis with history of chronic back pain. 7. Anxiety and depression, stable. Continue Lexapro. 8. History of diverticulitis. 9. History of nicotine dependence. 10. History of opiate dependence. 11. Medical marijuana use. Advance diet per surgery recommendations. Continue current medications. Increase activity. Continue GI and DVT prophylaxis. Repeat CMP in a.m. The above impression and plan have been discussed and directed by Dr. Nava. Adryan KONG acting as scribe for Dr. Nava.
[2016-05-06 16:17] VITALS: RESP 16
[2016-05-07] MEDS: SODIUM CHLORIDE 0.9% 1,000 ML IV SCH ×3 (05:25→11:34)
[2016-05-07] MEDS: LEVOTHYROXINE 75 MCG TAB PO SCH (06:14)
[2016-05-07] MEDS: HEPARIN SODIUM,PORCINE 5,000 UNIT/ML 1 ML VIAL SQ SCH (07:35)
[2016-05-07] MEDS: ESCITALOPRAM 20 MG TAB PO SCH (07:35)
[2016-05-07] MEDS: PANTOPRAZOLE 40 MG/10 ML VIAL IVP SCH (07:35)
[2016-05-07] MEDS: cloNIDine HCL 0.1 MG TAB PO SCH (07:36)
[2016-05-07 08:06] VITALS: PULSE 87; TEMP 98.1
[2016-05-07 08:25] LABS: ALT 55 U/L (21-72); AST 101 U/L (17-59); Alkaline Phosphatase 95 U/L (38-126); Anion Gap 13 mmol/L; Blood Urea Nitrogen 15 mg/dL (9-20); Calcium 9.3 mg/dL (8.4-10.2); Carbon Dioxide 25 mmol/L (22-30); Chloride 105 mmol/L (98-107); Glucose 111 mg/dL (74-99); Non-African American GFR(MDRD) >60 (>60 ml/min/1.73 sqM); Potassium 3.7 mmol/L (3.5-5.1); Sodium 143 mmol/L (137-145); Total Protein 6.5 g/dL (6.3-8.2)
[2016-05-07 09:36] VITALS: BP 134/74
--- NOTE | 2016-05-07 14:11 | P.DS ---
Providers Date of admission: 05/04/16 11:52 Expected date of discharge: 05/07/16 Attending physician: Miki Nava Consults: Dr. Fermin from general surgery Primary care physician: Miki Nava [place] [facility] Course: Patient is a 61-year-old male, patient of Dr. Miki Nava in the outpatient setting with medical history significant for coronary artery disease with previous stent placement, angina, GERD, hypertension, myocardial infarction , osteoarthritis, renal disease, lumbosacral spinal stenosis, and opiate dependence with last opioid ingestion several months ago. Patient presented to the emergency department with complaints of abdominal pain associated with nausea, vomiting, and diarrhea onset 1 day. No history of fevers, chills, shortness of breath, chest pain, melena, hematemesis, or hematochezia. Admission lab work with evidence of severe dehydration and acute kidney injury. CT of abdomen and pelvis with evidence of possible small bowel obstruction. Patient was fluid resuscitated with 2 L of normal saline, nasogastric tube was inserted for small bowel decompression, and consult was requested to Dr. Fermin for surgical service. Patient improved dramatically and repeat CT of abdomen and pelvis with no evidence of small bowel obstruction. Patient was felt stable for discharge to home with close follow-up with the outpatient setting. Discharge diagnoses: 1. Abdominal pain associated with nausea and vomiting, present on admission, suspect secondary to small bowel obstruction, resolved. 2. Acute renal failure suspect secondary to hypovolemic intravascular perfusion suspect secondary to GI losses, resolved. 2. Leukocytosis, present on admission, suspect reactive, resolved. 3. Hypercalcemia suspect due to acute renal failure, suspect secondary to dehydration, resolved. 4. Coronary artery disease with history of myocardial infarction. 5. Hypertension. Will restart clonidine home dose 0.1 mg by mouth 3 times a day. 6. Lumbosacral spinal stenosis with history of chronic back pain. 7. Anxiety and depression, stable. Continue Lexapro. 8. History of diverticulitis. 9. History of nicotine dependence. 10. History of opiate dependence. 11. Medical marijuana use. The above impression and plan have been discussed and directed by Dr. Nava. Adryan KONG acting as scribe for Dr. Nava. Pertinent Studies: EKG; acute abdomen series; abdomen/pelvis CT Patient Condition at Discharge: Stable Plan - Discharge Summary Discharge Medication List Escitalopram [Lexapro] 20 mg PO DAILY 06/05/13 [History] Nitroglycerin Sl Tabs [Nitrostat] 0.4 mg SUBLINGUAL Q5M PRN 10/30/14 [History] Albuterol Inhaler [Ventolin Hfa Inhaler] 1 - 2 puff INHALATION RT-Q6H PRN [History] cloNIDine HCL [Clonidine HCl] 0.1 mg PO TID 11/16/15 [History] Levothyroxine Sodium [Synthroid] 75 mcg PO DAILY 05/04/16 [History] Omeprazole 20 mg PO DAILY 05/04/16 [History] Follow up Appointment(s)/Referral(s): Miki Nava DO [Primary Care Provider] - 2 Weeks Kirill Fermin MD [STAFF PHYSICIAN] - 1 Week Patient Instructions/Handouts: Acute Kidney Injury (DC), Bowel Obstruction (DC) Activity/Diet/Wound Care/Special Instructions: May resume metamucil upon discharge. Discharge Disposition: HOME SELF-CARE
[2016-05-08] MEDS ORDERED: PANTOPRAZOLE 40 MG TABLET PO SCH (09:00)
== END 2016-05-07 12:10 | disposition home or self-care (01) | DRG 389 ==
LOC: EC 08:12 → 5MS5E 11:52
PROVIDERS: ADMIT Family Medicine; ATTEND Family Medicine
DX: K56.60 Unspecified intestinal obstruction (principal); N17.9 Acute kidney failure, unspecified; E87.2 Acidosis; E83.52 Hypercalcemia; I25.10 Atherosclerotic heart disease of native coronary artery without angina pectoris; E78.5 Hyperlipidemia, unspecified; K21.9 Gastro-esophageal reflux disease without esophagitis; M19.91 Primary osteoarthritis, unspecified site; M48.07 Spinal stenosis, lumbosacral region; E86.0 Dehydration; I10 Essential (primary) hypertension; K58.9 Irritable bowel syndrome, unspecified; G89.29 Other chronic pain; G43.909 Migraine, unspecified, not intractable, without status migrainosus; F32.9 Major depressive disorder, single episode, unspecified; F11.21 Opioid dependence, in remission; F41.9 Anxiety disorder, unspecified; I25.2 Old myocardial infarction; Z98.1 Arthrodesis status; Z95.5 Presence of coronary angioplasty implant and graft; Z79.899 Other long term (current) drug therapy; Z90.49 Acquired absence of other specified parts of digestive tract; Z87.891 Personal history of nicotine dependence
CPT/HCPCS: 36415; 74022; 74176; 80053; 81001; 82150; 83605; 83690; 83735; 85025; 86850; 86900; 86901; 93005; 96361; 96372; 96374; 96375; 99285

== ENCOUNTER 2016-05-14 01:06 | Observation (INO) | payer MEDICARE ==
[2016-05-14] MEDS ORDERED: SODIUM CHLORIDE 0.9% 1,000 ML IV STA (01:41)
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
--- NOTE | 2016-05-14 01:59 | XR ---
Exam: XR CXR 2 VIEWS History: Weakness. Comparison: 05/04/16. Technique: 2 views. Findings: No definite focal consolidation or significant effusion. Heart shadow is top normal. Minimal prominence of interstitial lung markings, probably accentuated by technique. Impression: No focal consolidation or significant effusion.
[2016-05-14 02:05] LABS: Basophils # (A) 0.1 k/uL (0-0.2); Basophils % (A) 1 %; CH 31.1; CHCM 35.8; Eosinophils # (A) 0.2 k/uL (0-0.7); Eosinophils % (A) 2 %; HCT 39.8 % (39.0-53.0); HDW 2.84; HGB 13.5 gm/dL (13.0-17.5); Luc # (Auto) 0.21; Luc % (Auto) 2; Lymphocytes # (A) 2.8 k/uL (1.0-4.8); Lymphocytes % (A) 32 %; MCH 29.7 pg (25.0-35.0); MCV 87.3 fL (80.0-100.0); Mean Platelet Volume 7.1; Monocytes # (A) 0.6 k/uL (0-1.0); Monocytes % (A) 6 %; Neutrophils % (A) 57 %; RBC 4.57 m/uL (4.30-5.90); RDW 14.2 % (11.5-15.5); WBC 8.8 k/uL (3.8-10.6); WBC (Perox) 8.81
[2016-05-14 02:20] LABS: Partial Thromboplastin Time 23.1 sec (22.0-30.0); Prothrombin Time 10.1 sec (9.0-12.0)
[2016-05-14 02:21] LABS: ALT 52 U/L (21-72); AST 29 U/L (17-59); Alkaline Phosphatase 109 U/L (38-126); Anion Gap 9 mmol/L; Blood Urea Nitrogen 15 mg/dL (9-20); Calcium 9.6 mg/dL (8.4-10.2); Carbon Dioxide 25 mmol/L (22-30); Chloride 104 mmol/L (98-107); Glucose 102 mg/dL (74-99); Magnesium 2.1 mg/dL (1.6-2.3); Non-African American GFR(MDRD) >60 (>60 ml/min/1.73 sqM); Phosphorous 2.7 mg/dL (2.5-4.5); Potassium 3.9 mmol/L (3.5-5.1); Sodium 138 mmol/L (137-145); Total Bilirubin 0.4 mg/dL (0.2-1.3); Total Protein 6.7 g/dL (6.3-8.2)
[2016-05-14 02:36] LABS: Creatine Kinase 356 U/L (55-170)
[2016-05-14 02:47] LABS: Troponin I <0.012 ng/mL (0.000-0.034)
[2016-05-14] MEDS ORDERED: ASPIRIN 81 MG CHEW PO STA (02:48)
[2016-05-14] MEDS ORDERED: HEPARIN SODIUM,PORCINE 5,000 UNIT/ML 1 ML VIAL IV ONE (02:48)
[2016-05-14] MEDS ORDERED: HYDROmorphone 2 MG/ML 1 ML SYRINGE IVP STA ×2 (02:48)
[2016-05-14] MEDS ORDERED: HEPARIN SODIUM,PORCINE 5,000 UNIT/ML 1 ML VIAL IV PRN (02:48)
[2016-05-14] MEDS ORDERED: NITROGLYCERIN SL TABS 0.4 MG TAB SUBLINGUAL PRN ×2 (02:48→10:55)
[2016-05-14] MEDS ORDERED: HEPARIN SODIUM,PORCINE/D5W PMX 25,000 UNIT in DEXTROSE/WATER 1 500ML.BAG IV SCH (03:00)
[2016-05-14 03:03] LABS: Creatine Kinase MB 4.5 ng/mL (0.0-2.4)
[2016-05-14 03:43] VITALS: BMI 32.1
[2016-05-14] MEDS: HYDROmorphone 1 MG/ML 1 ML SYRINGE IVP PRN ×2 (05:47→10:31)
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
[2016-05-14 08:49] VITALS: RESP 16; TEMP 96.8
[2016-05-14] MEDS ORDERED: cloNIDine HCL 0.1 MG TAB PO SCH (09:00)
[2016-05-14 09:24] LABS: Mean Platelet Volume 6.8
[2016-05-14 09:46] LABS: Creatine Kinase 372 U/L (55-170)
[2016-05-14 09:58] LABS: Troponin I <0.012 ng/mL (0.000-0.034)
[2016-05-14 10:15] LABS: Creatine Kinase MB 4.7 ng/mL (0.0-2.4)
[2016-05-14] MEDS ORDERED: DICYCLOMINE 20 MG TAB PO PRN (10:55)
[2016-05-14] MEDS ORDERED: DIPHENOX-ATROP 2.5-0.025 MG 1 EACH TAB PO PRN (10:55)
[2016-05-14] MEDS ORDERED: LEVOTHYROXINE 75 MCG TAB PO SCH (11:00)
[2016-05-14] MEDS ORDERED: PANTOPRAZOLE 40 MG/10 ML VIAL IVP SCH (11:00)
--- NOTE | 2016-05-14 11:11 | ECHOF ---
Referral Reason:Chest Pain MEASUREMENTS -------- HEIGHT: 157.5 cm WEIGHT: 101.2 kg BP: 159/90 RVIDd: 3.9 cm (< 3.3) IVSd: 1.5 cm (0.6 - 1.1) LVIDd: 4.8 cm (3.9 - 5.3) LVPWd: 1.4 cm (0.6 - 1.1) IVSs: 1.6 cm LVIDs: 3.6 cm LVPWs: 1.7 cm LA Diam: 4.7 cm (2.7 - 3.8) LAESV Index (A-L): 36.95 ml/m Ao Diam: 4.1 cm (2.0 - 3.7) AV Cusp: 2.1 cm (1.5 - 2.6) LA Diam: 4.5 cm (2.7 - 3.8) MV EXCURSION: 21.388 mm (> 18.000) MV EF SLOPE: 109 mm/s (70 - 150) EPSS: 0.6 cm MV E [place]: 0.55 m/s MV DecT: 226 ms MV A [place]: 0.56 m/s MV E/A Ratio: 0.98 RAP: 5.00 mmHg RVSP: 16.42 mmHg FINDINGS -------- Sinus rhythm. This was a technically adequate study. There is moderate concentric left ventricular hypertrophy. Overall left ventricular systolic function is low-normal with, an EF between 50 - 55 %. The right ventricle is normal in size. LA is moderately dilated 34-39 ml/m2 The right atrial size is normal. There is mild aortic valve sclerosis. There is no evidence of aortic regurgitation. Mild mitral annular calcification present. Mild mitral regurgitation is present. Mild tricuspid regurgitation present. There is no evidence of pulmonary hypertension. The right ventricular systolic pressure, as measured by Doppler, is 16.42mmHg. There is no pulmonic regurgitation present. The aortic root size is normal. There is no pericardial effusion. CONCLUSIONS -------- 1. There is moderate concentric left ventricular hypertrophy. 2. Overall left ventricular systolic function is low-normal with, an EF between 50 - 55 %. 3. LA is moderately dilated 34-39 ml/m2 4. There is mild aortic valve sclerosis. 5. Mild mitral annular calcification present. 6. Mild mitral regurgitation is present. 7. Mild tricuspid regurgitation present. 8. There is no evidence of pulmonary hypertension. 9. The right ventricular systolic pressure, as measured by Doppler, is 16.42mmHg. PARTS SALES MANAGER: Cherelle Moura RDCS
[2016-05-14] MEDS ORDERED: LOSARTAN 25 MG TAB PO SCH (11:45)
[2016-05-14] MEDS ORDERED: LOSARTAN 50 MG TAB PO SCH (12:00)
[2016-05-14 12:10] VITALS: BP 153/86; PULSE 62
--- NOTE | 2016-05-14 14:17 | HP ---
DATE OF ADMISSION: HISTORY AND PHYSICAL AND DISCHARGE SUMMARY This patient is a pleasant 61-year-old gentleman who came in with complaints of chest pressure-like sensation, which started yesterday. It lasted about 2 seconds, exertional when he was working in his garage. Denied any nausea. Denied any diaphoresis associated with that. Patient used to be on statin, which he cannot take anymore because of possible statin-induced rhabdomyolysis. Patient had a stent to RCA in 2013 and patient's chest pain is pressure-like sensation about 7/10 in severity, nonradiating. Patient was having some shortness of breath, not associated with chest pain, but has been lately getting deconditioned and short of breath and after he gained weight. Patient's chest pain is nonpleuritic in nature, not associated with food and denied any cough, runny nose. Patient's troponins are negative. EKG did not show any acute ST-T wave changes. The patient had a recent stress test in month of January and Cardiology is recommending an echocardiogram. If that is okay, patient will be discharged. Patient denied any nausea associated with that. REVIEW OF SYSTEMS: CONSTITUTIONAL: No fever, no malaise, no fatigue. HEENT: No recent visual problems or hearing problems. Denied any sore throat. CARDIOVASCULAR: As described in HPI. PULMONARY: No shortness of breath, no cough, no hemoptysis. GASTROINTESTINAL: No diarrhea, no nausea, no vomiting, no abdominal pain. Normoactive bowel sounds. NEUROLOGICAL: No headaches, no weakness, no numbness. HEMATOLOGICAL: Denies any bleeding or petechiae. GENITOURINARY: Denies any burning micturition, frequency, or urgency. MUSCULOSKELETAL/RHEUMATOLOGICAL: Denies any joint pain, swelling, or any muscle pain. ENDOCRINE: Denies any polyuria or polydipsia. The rest of the 14 point review of systems is negative. PAST MEDICAL HISTORY: Coronary artery disease, hyperlipidemia, hypertension, myocardial infarction in the past, osteoarthritis, pneumonia and renal disease and lumbosacral spinal stenosis, chronic low back pain, diverticulitis, irritable bowel syndrome. Had a myocardial infarction in 2013, stent to RCA, back surgery, cholecystectomy. SOCIAL HISTORY: Former smoker. Denied any alcohol abuse or any drug abuse. Quit smoking in 1983. Patient occasionally uses marijuana. FAMILY HISTORY: Mother had hypothyroidism. Father had diabetes mellitus and myocardial infarction. Sister had cancer and thyroid disorder. HOME MEDICATIONS: 1. Escitalopram. 2. Nitroglycerin. 3. Clonidine. 4. Levothyroxine. 5. Amitriptyline. 6. Aspirin. 7. Dicyclomine. 8. Diphenoxylate. 9. Ondansetron. ALLERGIES: Allergic to BETA BLOCKERS and PAROXETINE. PHYSICAL EXAMINATION: Temperature 96.8, pulse of 62, respiratory rate of 16, blood pressure is 153/86, saturating at 96% on room air. GENERAL: The patient is alert and oriented x3, not in any acute distress. Well developed, well nourished. HEENT: Pupils are round and equally reacting to light. EOMI. No scleral icterus. No conjunctival pallor. Normocephalic, atraumatic. No pharyngeal erythema. No thyromegaly. CARDIOVASCULAR: S1 and S2 present. No murmurs, rubs, or gallops. PULMONARY: Chest is clear to auscultation, no wheezing or crackles. ABDOMEN: Soft, nontender, nondistended, normoactive bowel sounds. No palpable organomegaly. MUSCULOSKELETAL: No joint swelling or deformity. EXTREMITIES: No cyanosis, clubbing, or pedal edema. NEUROLOGICAL: Gross neurological examination did not reveal any focal deficits. SKIN: No rashes. LABORATORY DATA: CBC, CMP, essentially within normal limits. Troponins as mentioned above. Echocardiogram was ordered and echocardiogram did not show any significant new abnormalities. Chest x-ray was reviewed. Did not show any pneumonic process. ASSESSMENT AND PLAN: 1. Chest pain, appears to be atypical. Patient was ruled out acute coronary syndrome and unstable angina. Patient will be discharged today. I am not sure of the exact etiology of his chest pain, may be musculoskeletal. 2. History of coronary artery disease. 3. Hyperlipidemia. 4. Depression. 5. Gastroesophageal reflux disease. All the other chronic medical problems are stable at this point of time. Patient will follow with Dr. Miki Nava in 3 to 7 days. Activity as tolerated. Cardiac diet. Counseling regarding obesity was provided. Patient may benefit from sleep study as an outpatient.
[2016-05-14] MEDS ORDERED: AMITRIPTYLINE HCL 50 MG TAB PO SCH (21:00)
[2016-05-15] MEDS ORDERED: ASPIRIN 325 MG TAB PO SCH (09:00)
[2016-05-15] MEDS ORDERED: ESCITALOPRAM 20 MG TAB PO SCH (09:00)
[2016-05-15] MEDS ORDERED: ASPIRIN 81 MG CHEW PO SCH (09:00)
[2016-05-15] MEDS ORDERED: NON-FORMULARY DRUG (Omeprazole [Omeprazole] 20 MG) PO SCH (09:00)
== END 2016-05-14 14:57 | disposition home or self-care (01) ==
LOC: EC 01:06 → 6SEL 02:49
PROVIDERS: ADMIT Family Medicine; ATTEND Family Medicine
DX: R07.89 Other chest pain (principal); I25.10 Atherosclerotic heart disease of native coronary artery without angina pectoris; I10 Essential (primary) hypertension; E78.5 Hyperlipidemia, unspecified; I25.2 Old myocardial infarction; E66.9 Obesity, unspecified; F12.90 Cannabis use, unspecified, uncomplicated; F32.9 Major depressive disorder, single episode, unspecified; K21.9 Gastro-esophageal reflux disease without esophagitis; K58.9 Irritable bowel syndrome, unspecified; Z79.82 Long term (current) use of aspirin; Z79.899 Other long term (current) drug therapy; Z87.891 Personal history of nicotine dependence; Z95.5 Presence of coronary angioplasty implant and graft; R06.02 Shortness of breath; M19.90 Unspecified osteoarthritis, unspecified site
CPT/HCPCS: 99291 ×2; 96374 ×2; 96376 ×2; 96361 ×2; 36415; 93005; 93306; 83880; 80053; 82550; 82553; 83735; 84100; 84484; 85025; 85049; 85610; 85730; 71020; G0378; J1170 ×2; J1644 ×2; C9113

== ENCOUNTER 2016-05-31 16:52 | Inpatient (IN) | payer MEDICARE ==
[2016-05-31] MEDS ORDERED: SODIUM CHLORIDE 0.9% 500 ML IV STA (17:17)
[2016-05-31] MEDS ORDERED: SODIUM CHLORIDE 0.9% 1,000 ML IV STA ×2 (17:17)
[2016-05-31] MEDS ORDERED: PANTOPRAZOLE 40 MG/10 ML VIAL IVP STA (17:17)
[2016-05-31] MEDS ORDERED: LORazepam 2 MG/ML SYRINGE IV STA (17:17)
[2016-05-31] MEDS ORDERED: HYDROmorphone 1 MG/ML 1 ML SYRINGE IVP STA (17:17)
[2016-05-31] MEDS ORDERED: ONDANSETRON 4 MG/2 ML VIAL IVP STA (17:17)
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
--- NOTE | 2016-05-31 17:51 | XR ---
EXAMINATION TYPE: XR chest 2V DATE OF EXAM: 05/31/2016 5:46 PM COMPARISON: Prior chest x-ray May 14, 2016. HISTORY: Weakness and diaphoresis. TECHNIQUE: Frontal and lateral views of the chest are obtained. FINDINGS: There is no focal air space opacity, pleural effusion, or pneumothorax seen. The cardiac silhouette size is stable and mildly enlarged. The osseous structures are intact. Cholecystectomy c lips are redemonstrated. IMPRESSION: Mild cardiomegaly without acute pulmonary process. No significant change from prior.
[2016-05-31 17:52] LABS: Basophils % (A) 0 %; CH 30.7; CHCM 36.4; Eosinophils % (A) 0 %; HCT 49.7 % (39.0-53.0); Luc # (Auto) 0.07; Luc % (Auto) 1; Lymphocytes % (A) 8 %; MCH 29.3 pg (25.0-35.0); MCHC 34.6 g/dL (31.0-37.0); MCV 84.8 fL (80.0-100.0); Mean Platelet Volume 7.2; Monocytes # (A) 0.4 k/uL (0-1.0); Monocytes % (A) 3 %; Neutrophils # (A) 11.3 k/uL (1.3-7.7); Neutrophils % (A) 88 %; RBC 5.86 m/uL (4.30-5.90); RDW 13.9 % (11.5-15.5); WBC 12.8 k/uL (3.8-10.6); WBC (Perox) 12.73
[2016-05-31 17:53] LABS: HGB 17.2 gm/dL (13.0-17.5)
[2016-05-31 18:00] LABS: Partial Thromboplastin Time 22.3 sec (22.0-30.0); Prothrombin Time 10.4 sec (9.0-12.0)
[2016-05-31 18:04] LABS: Calcium 11.7 mg/dL (8.4-10.2); Magnesium 1.7 mg/dL (1.6-2.3); Phosphorous 2.7 mg/dL (2.5-4.5); Potassium 4.2 mmol/L (3.5-5.1); Total Protein 9.9 g/dL (6.3-8.2)
[2016-05-31 18:25] LABS: Troponin I 0.022 ng/mL (0.000-0.034)
[2016-05-31 18:27] LABS: Creatine Kinase MB 3.7 ng/mL (0.0-2.4)
[2016-05-31] MEDS ORDERED: ONDANSETRON 4 MG/2 ML VIAL IVP PRN (19:17)
[2016-05-31] MEDS ORDERED: METOCLOPRAMIDE 5 MG/ML 2 ML VIAL IVP STA (19:17)
[2016-05-31] MEDS ORDERED: SODIUM CHLORIDE 0.9% 1,000 ML IV ONE (19:17)
[2016-05-31] MEDS ORDERED: DICYCLOMINE 10 MG/ML 2 ML AMP IM STA (19:17)
[2016-05-31] MEDS ORDERED: HYDROmorphone 2 MG/ML 1 ML SYRINGE IVP STA (20:53)
[2016-05-31 21:27] LABS: Appearance,Urine Cloudy (Clear); Bacteria,Urine Rare /hpf; Bilirubin,Urine Negative (Negative); Glucose,Urine (UA) Negative (Negative); Ketones,Urine Negative (Negative); Leukocyte Esterase,Urine Negative (Negative); Mucus,Urine Rare /hpf; Nitrite,Urine Negative (Negative); PH, Urine 5.5 (5.0-8.0); Particle Count 9193; Protein,Urine 2+ (Negative); RBC,Urine 1 /hpf (0-5); Specific Gravity,Urine 1.011 (1.001-1.035); Squamous Epithelial Cell,Urine <1 /hpf (0-4); UA Billing (MACRO vs. MICRO) MICRO; Urobilinogen,Urine <2.0 mg/dL (<2.0); WBC,Urine 3 /hpf (0-5)
[2016-05-31 22:34] VITALS: BMI 30.9
[2016-05-31] MEDS: METOCLOPRAMIDE 5 MG/ML 2 ML VIAL IVP SCH (23:29)
[2016-06-01] MEDS: ESCITALOPRAM 10 MG TAB PO SCH ×2 (00:38→08:06)
[2016-06-01] MEDS: AMITRIPTYLINE HCL 50 MG TAB PO SCH ×2 (00:38→19:48)
[2016-06-01] MEDS: KETOROLAC 30 MG/ML 1 ML VIAL IVP PRN ×2 (01:59→19:49)
[2016-06-01] MEDS: LEVOTHYROXINE 75 MCG TAB PO SCH ×2 (05:48→08:06)
[2016-06-01] MEDS: METOCLOPRAMIDE 5 MG/ML 2 ML VIAL IVP SCH ×3 (05:48→18:04)
[2016-06-01] MEDS: ENOXAPARIN 40 MG/0.4 ML SYRINGE SQ SCH (08:06)
[2016-06-01] MEDS: cloNIDine HCL 0.1 MG TAB PO SCH ×3 (08:06→19:48)
[2016-06-01] MEDS: LOSARTAN 50 MG TAB PO SCH (08:06)
[2016-06-01 09:21] LABS: Basophils % (A) 0 %; CH 30.5; CHCM 35.5; Eosinophils # (A) 0.1 k/uL (0-0.7); Eosinophils % (A) 1 %; HCT 40.7 % (39.0-53.0); HDW 3.04; HGB 14.5 gm/dL (13.0-17.5); Luc # (Auto) 0.15; Luc % (Auto) 2; Lymphocytes % (A) 22 %; MCH 30.7 pg (25.0-35.0); MCHC 35.5 g/dL (31.0-37.0); MCV 86.4 fL (80.0-100.0); Mean Platelet Volume 7.1; Monocytes # (A) 0.4 k/uL (0-1.0); Monocytes % (A) 4 %; Neutrophils # (A) 6.5 k/uL (1.3-7.7); Neutrophils % (A) 71 %; RBC 4.71 m/uL (4.30-5.90); RDW 13.9 % (11.5-15.5); WBC 9.2 k/uL (3.8-10.6); WBC (Perox) 9.84
[2016-06-01 09:30] LABS: Anion Gap 11 mmol/L; Blood Urea Nitrogen 24 mg/dL (9-20); Calcium 8.8 mg/dL (8.4-10.2); Carbon Dioxide 21 mmol/L (22-30); Chloride 107 mmol/L (98-107); Glucose 145 mg/dL (74-99); Non-African American GFR(MDRD) >60 (>60 ml/min/1.73 sqM); Potassium 3.7 mmol/L (3.5-5.1); Sodium 139 mmol/L (137-145)
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
[2016-06-01] MEDS ORDERED: PRAVASTATIN SODIUM 40 MG TAB PO SCH (21:00)
[2016-06-01 22:53] VITALS: TEMP 98.1
[2016-06-01] MEDS ORDERED: PANTOPRAZOLE 40 MG TABLET PO SCH (23:40)
[2016-06-02] MEDS: METOCLOPRAMIDE 5 MG/ML 2 ML VIAL IVP SCH ×2 (02:41→03:32)
[2016-06-02] MEDS: LEVOTHYROXINE 75 MCG TAB PO SCH (06:28)
[2016-06-02] MEDS: KETOROLAC 30 MG/ML 1 ML VIAL IVP PRN (06:28)
[2016-06-02] MEDS: ESCITALOPRAM 10 MG TAB PO SCH (07:33)
[2016-06-02] MEDS: ENOXAPARIN 40 MG/0.4 ML SYRINGE SQ SCH (07:33)
[2016-06-02] MEDS: cloNIDine HCL 0.1 MG TAB PO SCH (07:33)
[2016-06-02] MEDS: LOSARTAN 50 MG TAB PO SCH (07:34)
[2016-06-02 07:45] VITALS: BP 174/108; PULSE 83; RESP 16
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
--- NOTE | 2016-06-02 11:38 | P.DS ---
Providers Date of admission: 05/31/16 19:17 Expected date of discharge: 06/02/16 Attending physician: Miki Nava Consults: Gastrointestinal service Primary care physician: Miki Nava [facility] Course: Patient is a 61-year-old male, patient of Dr. Miki Nava in the outpatient setting with medical history significant for coronary artery disease with previous stent placement, angina, GERD, hypertension, myocardial infarction , osteoarthritis, renal disease, lumbosacral spinal stenosis, and remote opiate dependence. Patient presented to the emergency department with complaints of severe abdominal cramping associated with nausea and vomiting. No history of fevers, chills, shortness of breath, chest pain, diarrhea, constipation, melena , hematemesis, or hematochezia. Patient has had numerous admissions for similar presentation with last admission about 3 weeks ago. Admission lab work with evidence of severe dehydration and acute kidney injury. In the emergency department, patient was fluid resuscitated with 2.5 L of normal saline, treated with antiemetics and pain medicine and transferred to the medical floor. Patient improved significantly overnight with symptoms completely resolved the next day. Patient was evaluated by gastrointestinal service during his hospital stay was planning for patient to undergo EGD on 06/04/2016. If EGD is negative GI service is considering repeating small bowel follow- through with possible small bowel enterography versus conservative measures with medical treatment for suspected underlying history of IBS. Patient was deemed stable for discharge to home with follow-up in the outpatient setting. Discharge diagnoses: 1. Abdominal pain associated with intractable nausea and vomiting, present on admission, etiology unknown. 2. Lactic acidosis, present on admission, suspect secondary to severe dehydration, resolved. 3. Acute renal failure suspect secondary to hypovolemic intravascular perfusion suspect secondary to GI losses, resolved. 4. Leukocytosis, present on admission, suspect reactive, resolved. 5. Hypercalcemia suspect due to acute renal failure, suspect secondary to dehydration, resolved. 6. Coronary artery disease with history of myocardial infarction. 7. Hypertension. 8. Lumbosacral spinal stenosis with history of chronic back pain. 9. Anxiety and depression, stable. 10. History of diverticulitis. 11. History of nicotine dependence. 12. History of opiate dependence. 13.. Medical marijuana use. The above impression and plan have been discussed and directed by Dr. Nava. Adryan KONG acting as scribe for Dr. Nava. Pertinent Studies: EKG; chest x-ray Patient Condition at Discharge: Fair Plan - Discharge Summary Discharge Medication List Escitalopram [Lexapro] 30 mg PO DAILY 06/05/13 [History] cloNIDine HCL [Clonidine HCl] 0.1 mg PO TID 11/16/15 [History] Levothyroxine Sodium [Synthroid] 75 mcg PO DAILY 05/04/16 [History] Omeprazole 20 mg PO HS 05/04/16 [History] Amitriptyline HCl [Elavil] 50 mg PO HS 05/14/16 [History] Clotrimazole/Betameth Cream [Lotrisone] 1 applic TOPICAL BID 05/31/16 [History] Dicyclomine [Bentyl] 20 cap PO AC-TID PRN 05/31/16 [History] Ibuprofen [Motrin] 800 mg PO Q8HR PRN 05/31/16 [History] Losartan [Cozaar] 50 mg PO DAILY 05/31/16 [History] Pravastatin Sodium [Pravachol] 40 mg PO HS 05/31/16 [History] Follow up Appointment(s)/Referral(s): Miki Nava DO [Primary Care Provider] - 06/10/16 11:40 am Caridad Patrick MD [STAFF PHYSICIAN] - 06/10/16 4:30 pm Ambulatory/Diagnostic Orders: Miscellaneous Radiology Order [RAD.AMB] Time Frame: 1 Week, Location: Determined By Patient Activity/Diet/Wound Care/Special Instructions: EGD - Kim Marquez on Tuesday06/04/[address] Patrick- the hospital will call you on with instructions Discharge Disposition: HOME SELF-CARE
== END 2016-06-02 10:26 | disposition home or self-care (01) | DRG 683 ==
LOC: EC 16:52 → 5MS5E 19:17
PROVIDERS: ADMIT Family Medicine; ATTEND Family Medicine
DX: N17.9 Acute kidney failure, unspecified (principal); E87.2 Acidosis; E78.5 Hyperlipidemia, unspecified; E83.52 Hypercalcemia; E86.0 Dehydration; F12.90 Cannabis use, unspecified, uncomplicated; F32.9 Major depressive disorder, single episode, unspecified; F41.9 Anxiety disorder, unspecified; I10 Essential (primary) hypertension; I25.10 Atherosclerotic heart disease of native coronary artery without angina pectoris; I25.2 Old myocardial infarction; K21.9 Gastro-esophageal reflux disease without esophagitis; K57.90 Diverticulosis of intestine, part unspecified, without perforation or abscess without bleeding; K58.9 Irritable bowel syndrome, unspecified; M48.07 Spinal stenosis, lumbosacral region; G43.909 Migraine, unspecified, not intractable, without status migrainosus; G62.9 Polyneuropathy, unspecified; G89.29 Other chronic pain; M19.90 Unspecified osteoarthritis, unspecified site; M54.32 Sciatica, left side; M54.31 Sciatica, right side; E86.1 Hypovolemia; R11.2 Nausea with vomiting, unspecified; R10.9 Unspecified abdominal pain; Z79.899 Other long term (current) drug therapy; Z88.8 Allergy status to other drugs, medicaments and biological substances; Z95.5 Presence of coronary angioplasty implant and graft; Z87.891 Personal history of nicotine dependence; Z98.1 Arthrodesis status; Z82.49 Family history of ischemic heart disease and other diseases of the circulatory system
CPT/HCPCS: 36415; 71020; 80048; 80053; 81001; 82550; 82553; 83605; 83735; 84100; 84484; 85025; 85610; 85730; 87086; 93005; 96361; 96372; 96374; 96375; 96376; 99285

== ENCOUNTER 2016-06-04 12:25 | Day surgery (SDC) | payer MEDICARE ==
[2016-06-02 14:28] VITALS: BMI 30.2
[~2016-06-04 12:25] MED LIST: LACTATED RINGERS 1,000 ML IV SCH; LIDOCAINE 1% 20 ML VIAL (10MG/ML) FOR IV START INTRADERMA PRN
[2016-06-04 12:43] VITALS: TEMP 97.7
[2016-06-04] MEDS ORDERED: LIDOCAINE 1% INJ 10MG/ML (20 ML MDV) ONE (13:14)
[2016-06-04] MEDS ORDERED: PROPOFOL 10 MG/ML 20 ML VIAL IV ONE (13:14)
--- NOTE | 2016-06-04 13:26 | P.PCN ---
Date of Procedure: 06/04/16 Procedure(s) Performed: BRIEF HISTORY: Patient is a 61-year-old, pleasant, white male, scheduled for an upper endoscopy as a part of evaluation of abdominal pain, abdominal cramping and intermittent nausea vomiting, on and off for the last 1 month duration. He was in the hospital 3 different times in the last 1 month and recently was about 3 years ago. He scheduled for an upper endoscopy to evaluate further. PROCEDURE PERFORMED: Esophagogastroduodenoscopy with biopsy. PREOPERATIVE DIAGNOSIS: Abdominal pain, nausea and vomiting. IV sedation per anesthesia. PROCEDURE: After informed consent was obtained, the patient was brought into the endoscopy unit. IV sedation was administered by Anesthesia under continuous monitoring. Initially the Olympus GIF-140 video endoscope was inserted into the mouth. Esophagus intubated without any difficulty. It was gradually advanced into the stomach and duodenum and carefully examined. The bulb and the second part of the duodenum appeared normal. The scope at this time was withdrawn to the stomach, adequately insufflated with air, and upon careful examination, mucosa of the antrum had mild gastritis and biopsies were done from this area. The body, cardia and the fundus appeared normal. The scope was then withdrawn into the esophagus. Small sliding Hiatal hernia noted. The GE junction was located at 39 cm from the incisors. The esophagus appeared normal. There were no erosions or ulcerations seen and the patient tolerated the procedure well. IMPRESSION: 1. Mild antral gastritis but no evidence of peptic ulcer disease . 2. Small hiatal hernia. RECOMMENDATIONS: The findings of this examination were discussed with the patient as well as his family. He was advised to follow with the biopsy results. He'll continue his with the same medications and he'll be seen in office in 2 weeks.
[2016-06-04 13:45] VITALS: BP 121/80; PULSE 69; RESP 16
== END 2016-06-04 14:05 | disposition home or self-care (01) ==
LOC: ORWHC2ENDO 12:25
PROVIDERS: ATTEND Internal Medicine Gastroenterology
DX: K29.50 Unspecified chronic gastritis without bleeding (principal); K44.9 Diaphragmatic hernia without obstruction or gangrene; I25.10 Atherosclerotic heart disease of native coronary artery without angina pectoris; I10 Essential (primary) hypertension; Z87.891 Personal history of nicotine dependence; E78.5 Hyperlipidemia, unspecified; I25.2 Old myocardial infarction; E07.9 Disorder of thyroid, unspecified; F39 Unspecified mood [affective] disorder; Z79.899 Other long term (current) drug therapy; Z79.1 Long term (current) use of non-steroidal anti-inflammatories (NSAID); Z88.8 Allergy status to other drugs, medicaments and biological substances
CPT/HCPCS: 88305; 88342; 43239; J2001; J2704

== ENCOUNTER 2016-06-24 09:11 | Day surgery (SDC) | payer MEDICARE ==
[2016-06-22 14:00] VITALS: BMI 30.2
--- NOTE | 2016-06-23 17:27 | HP ---
DATE OF SURGERY: 06/24/2016 Anjum Rueda is a 61-year-old patient seen with progressive right knee pain. After options regarding treatment were discussed with him, he elected to proceed with right knee arthroscopy. Consent was obtained. Medical clearance provided by Dr. Miki Nava. Past medical history is hypothyroidism, gastroesophageal reflux disease, depression. Past surgical history is left ankle surgery, right knee arthroscopy, right elbow surgery, lumbar spine surgery, cholecystectomy, cardiac catheterization with stent insertion. DAILY MEDICATIONS: 1. Clonidine. 2. Aspirin. 3. Levothyroxine. 4. Nitrostat. 5. Omeprazole. ALLERGIES: CODEINE, BETA SAMEERA, PAXIL, INDERAL. SOCIAL HISTORY: Patient denies tobacco use currently. PHYSICAL EVALUATION OF THE RIGHT KNEE: Range of motion is -3 to 120 degrees. Mild effusion, tenderness to medial joint line. Positive medial Dariel's. Tenderness lateral joint line. Positive lateral Dariel's. Ligaments stable. Hip rotation without pain. Distal neurovascular exam intact. Crepitus along the patellar compartment with range of motion. Radiographs of the right knee revealed moderate medial compartment osteoarthritis. An MRI of the right knee revealed lateral meniscal tear. IMPRESSION: Internal derangement of right knee with meniscal tear. PLAN: Right knee arthroscopy with partial meniscectomy and debridement.
[~2016-06-24 09:11] MED LIST changes: +DEXAMETHASONE SOD PHOSPHATE 10 MG/ML 1 ML VIAL IV ONE; -LIDOCAINE 1% 20 ML VIAL (10MG/ML) FOR IV START INTRADERMA PRN; +MIDAZOLAM 2 MG/2 ML VIAL IV PRN; +ONDANSETRON 4 MG/2 ML VIAL IVP ONE; +ceFAZolin 2 GM in SODIUM CHLORIDE 0.9% 100 ML IVPB ONE
[2016-06-24] MEDS ORDERED: ePHEDrine 50 MG/ML 1 ML AMP ONE (11:16)
[2016-06-24] MEDS ORDERED: LIDOCAINE 1% INJ 10MG/ML (20 ML MDV) ONE (11:16)
[2016-06-24] MEDS ORDERED: MIDAZOLAM 2 MG/2 ML VIAL ONE (11:16)
[2016-06-24] MEDS ORDERED: fentaNYL (PF) 50 MCG/ML 2 ML AMP ONE (11:16)
[2016-06-24] MEDS ORDERED: SUCCINYLCHOLINE CHLORIDE 100 MG/5 ML SYR IV ONE (11:16)
[2016-06-24] MEDS ORDERED: PROPOFOL 10 MG/ML 20 ML VIAL IV ONE (11:16)
[2016-06-24] MEDS ORDERED: BUPIVACAIN-EPI 0.25%-1:200,000 30 ML VIAL INTRAARTIC ONE ×2 (11:22→11:50)
--- NOTE | 2016-06-24 12:06 | P.OP ---
Date of Procedure: 06/24/16 Preoperative Diagnosis: Internal derangement right knee Postoperative Diagnosis: 1. Tear medial and lateral meniscus right knee 2. Grade 2 chondromalacia medial femoral condyle right knee 3. Grade 3/4 chondromalacia medial tibial plateau right knee 4. Grade 2/3 chondromalacia patella right knee 5. Grade 1/2 chondromalacia lateral tibial plateau right knee 6. Reactive synovitis medial and suprapatellar compartments right knee Procedure(s) Performed: 1. Arthroscopic partial medial and lateral meniscectomy right knee 2. Arthroscopic chondroplasty medial femoral condyle right knee 3. Arthroscopic chondroplasty medial tibial plateau right knee 4. Arthroscopic chondroplasty patella right knee 5. Arthroscopic chondroplasty lateral tibial plateau right knee 6. Arthroscopic partial synovectomy medial and suprapatellar compartments right knee Implants: Anesthesia: CHRIS local Surgeon: [facility] Care Coordinator #1: Milo Correa Estimated Blood Loss (ml): 10 Pathology: none sent Condition: stable Disposition: PACU Indications for Procedure: 61-year-old patient seen with progressive right knee pain. After having treatment options discussed, he elected to proceed with right knee arthroscopy. Operative Findings: See description of procedure Description of Procedure: Patient was taken to the operative suite. Patient underwent a general anesthetic by the department of anesthesia. Patient was given preoperative antibiotics. The right lower extremity was placed in a well-padded arthroscopic leg weeks. The right leg was prepped and draped in the normal sterile orthopedic fashion. A lateral parapatellar and suprapatellar incision was made. Trochars were inserted. Arthroscopy was initiated. Suprapatellar pouch revealed thick reactive synovitis. The patellofemoral joint appeared to articulate congruently. There was grade 2/3 chondromalacia of the patella. The scope was guided into the medial gutter. No loose bodies or plica were identified. The scope was then guided into the medial compartment. A medial parapatellar incision was made. Trocar inserted followed by probe. There was radial tearing posterior horn medial meniscus. Grade 2 chondromalacia changes medial femoral condyle and grade 3/4 chondromalacia changes of the tibial plateau with osteochondral tears present. Thick synovitis anteriorly. No loose bodies. A partial medial meniscectomy was performed on a stable tissue. A chondroplasty was performed both of the medial femoral condyle and tibial plateau getting stone to stable articular tissue. A partial synovectomy was performed. The residual meniscus was probed and found to be stable. The residual osteochondral surface was stable. There were 2 areas of eburnation along the medial aspect of the medial tibial plateau with bone exposure. Scope and probe were then guided into the intercondylar notch. Cruciates were identified, probed and found to be stable. The scope and probe were then guided into lateral compartment. There was a complex tear of the posterior horn lateral meniscus which extended into the midbody. Grade 1/2, changes of the tibial plateau a small osteochondral tears were noted.. Lateral femoral condyle was stable. I performed a partial lateral meniscectomy down to stable tissue. I performed a chondroplasty the tibial plateau down to stable tissue. The residual meniscus and osteochondral surface were probed and found to be stable. The scope was in guided back into the suprapatellar compartment. A motorized shaver was now introduced into the super patellar compartment. I performed a chondroplasty of the patella getting down to stable tissue. I debrided piecemeal fragments of meniscus and contour. I performed a partial synovectomy. Shaver was removed. Instruments were now removed from the joint. The joint was infiltrated with .25% Marcaine. Steri-Strips were applied to the portal sites. Sterile dressings were applied. The patient was placed into a SAMSON hose. No tourniquet was utilized. The patient was awakened, transferred to a bed and taken to recovery stable satisfactory condition.
[2016-06-24 12:13] VITALS: TEMP 97
[2016-06-24] MEDS ORDERED: KETOROLAC 30 MG/ML 1 ML VIAL IVP ONE (12:22)
[2016-06-24] MEDS: HYDROmorphone 1 MG/ML 1 ML SYRINGE IVP PRN ×4 (12:28→12:46)
[2016-06-24 13:13] VITALS: BP 124/82; PULSE 87; RESP 18
== END 2016-06-24 13:34 | disposition home or self-care (01) ==
LOC: OR 09:11
PROVIDERS: ATTEND Orthopaedic Surgery
DX: S83.241A Other tear of medial meniscus, current injury, right knee, initial encounter (principal); S83.281A Other tear of lateral meniscus, current injury, right knee, initial encounter; X58.XXXA Exposure to other specified factors, initial encounter; M22.41 Chondromalacia patellae, right knee; M65.861 Other synovitis and tenosynovitis, right lower leg; E03.9 Hypothyroidism, unspecified; K21.9 Gastro-esophageal reflux disease without esophagitis; F32.9 Major depressive disorder, single episode, unspecified; K44.9 Diaphragmatic hernia without obstruction or gangrene; Z79.82 Long term (current) use of aspirin; Z79.899 Other long term (current) drug therapy; Z88.5 Allergy status to narcotic agent; Z88.8 Allergy status to other drugs, medicaments and biological substances
CPT/HCPCS: 29880; J2250; J1100; J0690; J2405; J2001; J3010; J1885; J1170; J0330; J2704

== ENCOUNTER → 2016-07-06 | Outpatient (CLI) | payer MEDICARE ==
--- NOTE | 2016-07-06 11:32 | FL ---
EXAMINATION TYPE: FL small bowel follow through DATE OF EXAM: 07/06/2016 10:42 AM CLINICAL HISTORY: History of prior small bowel obstruction April 2016 presents with recurrent pain. H istory of hiatal hernia surgery in gallbladder surgery. Irritable bowel syndrome per order. TECHNIQUE: A single contrast small bowel follow through is performed utilizing barium. A total of 0.28 minutes of fluoroscopic time was utilized during procedure. COMPARISON: CT abdomen and pelvis May 05, 2016. FINDINGS: Binder Stripper Machine image of the abdomen shows overall nonobstructive bowel gas pattern. Cholecystectomy clips are present. Additional surgical clips are scattered throughout the upper abdomen. There are s mall caliber clips near gastroesophageal junction from prior hiatal hernia repair surgery. Postsurgic al change in the mid to lower lumbar spine is redemonstrated. Sclerosis of bilateral femoral heads is consistent with avascular necrosis. The small bowel study shows normal transit to the colon in less than 120 minutes. There is a normal mucosal fold pattern throughout the small bowel. There is no evidence of any stricture or filling de fect noted. The terminal ileum is spotted and appears unremarkable. IMPRESSION: Small bowel follow-through felt within normal limits. Other findings as noted above.
== END | disposition home or self-care (01) ==
LOC: RADFLMAIN 08:00
PROVIDERS: ATTEND Internal Medicine Gastroenterology
DX: K58.9 Irritable bowel syndrome, unspecified (principal)
CPT/HCPCS: 74250

== ENCOUNTER 2016-07-10 18:18 | Inpatient (IN) | payer MEDICARE ==
[2016-07-10] MEDS ORDERED: HYDROmorphone 2 MG/ML 1 ML SYRINGE IVP STA (18:43)
[2016-07-10] MEDS ORDERED: ONDANSETRON 4 MG/2 ML VIAL IVP STA (18:43)
--- NOTE | 2016-07-10 18:48 | ED ---
Nausea/Vomiting/Diarrhea HPI - General Source: patient, RN notes reviewed Mode of arrival: wheelchair Limitations: no limitations <Selene Sanon - Last Filed: 07/10/16 20:13> <Acosta Marquez - Last Filed: 07/10/16 20:24> - General Chief complaint: Nausea/Vomiting/Diarrhea Stated complaint: cramps all over/nausea/vomiting Time Seen by Provider: 07/10/16 18:33 - History of Present Illness Initial comments: Patient is a 61-year-old male presents to the emergency room for evaluation of abdominal pain, nausea and vomiting. Patient states he has had similar symptoms in the past. Patient states symptoms began this morning. Patient states he's been having extreme diffuse abdominal pain, all over body cramping and vomiting. Patient states he usually becomes dehydrated and goes in to renal failure. Patient states he has a history of cholecystectomy and hiatal hernia repair. Patient denies any pain or burning during urination, trouble urinating or blood in urine. Patient denies chest pain. Patient states he feels short of breath secondary to retching. Patient denies fevers or chills. ( Selene Sanon) - Related Data Home Medications Medication Instructions Recorded Confirmed Escitalopram [Lexapro] 30 mg PO DAILY 06/05/13 07/10/16 cloNIDine HCL [Clonidine HCl] 0.1 mg PO TID 11/16/15 07/10/16 Levothyroxine Sodium [Synthroid] 75 mcg PO DAILY 05/04/16 07/10/16 Omeprazole 20 mg PO DAILY 05/04/16 07/10/16 Amitriptyline HCl [Elavil] 50 mg PO HS 05/14/16 07/10/16 Dicyclomine [Bentyl] 20 cap PO AC-TID PRN 05/31/16 07/10/16 Ibuprofen [Motrin] 800 mg PO Q8HR PRN 05/31/16 07/10/16 Losartan [Cozaar] 50 mg PO DAILY 05/31/16 07/10/16 Aspirin [Adult Low Dose Aspirin EC] 81 mg PO DAILY 06/24/16 07/10/16 Allergies Allergy/AdvReac Type Severity Reaction Status Date / Time Beta-Blockers Allergy Rash/Hives Verified 07/10/16 20:16 (Beta-Adrenergic Bloc paroxetine HCl [From Paxil] AdvReac Unknown Abdominal Verified 07/10/16 20:16 Pain Review of Systems ROS Other: All systems not noted in ROS Statement are negative. <Selene Sanon - Last Filed: 07/10/16 20:13> ROS Other: All systems not noted in ROS Statement are negative. <Acosta Marquez - Last Filed: 07/10/16 20:24> ROS Statement: Those systems with pertinent positive or pertinent negative responses have been documented in the HPI. Past Medical History Past Medical History: Coronary Artery Disease (CAD), Chest Pain / Angina, Hyperlipidemia, Hypertension, Myocardial Infarction (MS), Musculoskeletal Disorder, Osteoarthritis (OA), Pneumonia, Renal Disease Additional Past Medical History / Comment(s): Past abdominal pain with N/V and dehydration, renal problems with dehydration, lumbar sacral spinal stenosis, chronic low back pain with bilateral sciatica, pinched nerves in back, DIVERTICULITIS, 10 MIs, blood clot in left ascending artery, IBS, bronchitis, migraines, numbness/tingling bilateral feet. Last Myocardial Infarction Date:: 2013 History of Any Multi-Drug Resistant Organisms: None Reported Past Surgical History: Back Surgery, Cholecystectomy, Heart Catheterization With Stent, Hernia Repair, Orthopedic Surgery Additional Past Surgical History / Comment(s): COLONOSCOPY, EGD, ORIF LT ANKLE. BACK SURGERIES L/S fusion L3-L5, LT HAND SURGERY, RT KNEE ARTHROSC, RT ELBOW SURG, LUMBAR SPINE CYST REMOVAL AT L2 IN 2013, HIATAL HERNIA REPAIR, right shoulder arthroscopy, back injections. Past Anesthesia/Blood Transfusion Reactions: No Reported Reaction Date of Last Stent Placement:: 2013 Past Psychological History: No Psychological Hx Reported Additional Psychological History / Comment(s): Pt resides with his spouse. He uses a cane to ambulate. He drives. Smoking Status: Former smoker Past Alcohol Use History: None Reported Additional Past Alcohol Use History / Comment(s): Pt started smoking in 1971 and quit smoking in 1983. Past Drug Use History: None Reported Additional Drug Use History / Comment(s): CURRENTLY USES MEDICAL MARIJUANA- USUALLY 2 JOINTS A DAY - Past Family History Mother Family Medical History: Thyroid Disorder Father Family Medical History: Diabetes Mellitus, Myocardial Infarction (MS) Additional Family Medical History / Comment(s): TRIPLE BYPASS, MS in his 50's or 60's. from MVA when he was in his 80's Sister(s) Family Medical History: Cancer, Thyroid Disorder Additional Family Medical History / Comment(s): SKIN CA <Selene Sanon - Last Filed: 07/10/16 20:13> General Exam Limitations: no limitations General appearance: alert, anxious Head exam: Present: atraumatic, normocephalic, normal inspection Eye exam: Present: normal appearance ENT exam: Present: normal exam Neck exam: Present: normal inspection Respiratory exam: Present: normal lung sounds bilaterally. Absent: respiratory distress Cardiovascular Exam: Present: normal rhythm, tachycardia, normal heart sounds GI/Abdominal exam: Present: soft, tenderness (Diffuse tenderness), normal bowel sounds. Absent: distended, guarding, rebound, rigid Extremities exam: Present: normal inspection Back exam: Present: normal inspection Neurological exam: Present: alert, oriented X3, CN II-XII intact, normal gait Psychiatric exam: Present: normal affect, normal mood Skin exam: Present: warm, dry, intact, normal color. Absent: rash <Selene Sanon - Last Filed: 07/10/16 20:13> <Acosta Marquez - Last Filed: 07/10/16 20:24> - General Exam Comments Initial Comments: Moving around in bed in exam room, anxious (Selene Sanon) Medical Decision Making - Lab Data Result diagrams: 07/10/16 18:45 07/10/16 18:45 - Radiology Data Radiology results: report reviewed, image reviewed <Selene Sanon - Last Filed: 07/10/16 20:13> - Lab Data Result diagrams: 07/10/16 18:45 07/10/16 18:45 <Acosta Marquez - Last Filed: 07/10/16 20:24> - Medical Decision Making Patient is a 61-year-old male since emergency room for evaluation of diffuse abdominal pain and vomiting. Patient does appear to have acute on chronic renal failure. WBC elevated. Will admit patient for acute on chronic renal failure and intractable vomiting. Case discussed with Dr. Marquez. Case discussed with [employer], who agreed to admit for Dr. Nava. (Selene Sanon) EKG was done and reviewed at 1903 showing sinus tachycardia age undetermined inferior infarct. Rate 106 AR interval is 174 QRS 102 QT 346 QTc [address] No acute ST elevation. Probable old inferior infarct. This EKG was compared to one done on 05/14/[address] Marquez (Acosta Marquez) - Lab Data Lab Results 07/10/16 07/10/16 07/10/16 Range/Units 18:45 18:45 18:45 WBC 24.2 H (3.8-10.6) k/uL RBC 5.92 H (4.30-5.90) m/uL Hgb 17.5 (13.0-17.5) gm/dL Hct 50.8 (39.0-53.0) % MCV 85.7 (80.0-100.0) fL MCH 29.6 (25.0-35.0) pg MCHC 34.5 (31.0-37.0) g/dL RDW 13.9 (11.5-15.5) % Plt Count 296 (150-450) k/uL Neutrophils % 89 % Lymphocytes % 5 % Monocytes % 4 % Eosinophils % 0 % Basophils % 0 % Neutrophils # 21.5 H (1.3-7.7) k/uL Lymphocytes # 1.3 (1.0-4.8) k/uL Monocytes # 1.0 (0-1.0) k/uL Eosinophils # 0.1 (0-0.7) k/uL Basophils # 0.1 (0-0.2) k/uL PT 10.5 (9.0-12.0) sec INR 1.0 (<1.1) APTT 23.1 (22.0-30.0) sec Sodium 136 L (137-145) mmol/L Potassium 5.6 H (3.5-5.1) mmol/L Chloride 98 (98-107) mmol/L Carbon Dioxide 14 L (22-30) mmol/L Anion Gap 24 mmol/L BUN 26 H (9-20) mg/dL Creatinine 2.11 H (0.66-1.25) mg/dL Est GFR (MDRD) Af Amer 39 (>60 ml/min/1.73 sqM) Est GFR (MDRD) Non-Af 32 (>60 ml/min/1.73 sqM) Glucose 155 H (74-99) mg/dL Calcium 11.0 H (8.4-10.2) mg/dL Magnesium 1.8 (1.6-2.3) mg/dL Total Bilirubin 1.8 H (0.2-1.3) mg/dL AST 50 (17-59) U/L ALT 31 (21-72) U/L Alkaline Phosphatase 165 H (38-126) U/L Troponin I (0.000-0.034) ng/mL Total Protein 9.7 H (6.3-8.2) g/dL Albumin 5.8 H (3.5-5.0) g/dL Amylase 67 (30-110) U/L Lipase 78 (23-300) U/L 07/10/16 Range/Units 18:45 WBC (3.8-10.6) k/uL RBC (4.30-5.90) m/uL Hgb (13.0-17.5) gm/dL Hct (39.0-53.0) % MCV (80.0-100.0) fL MCH (25.0-35.0) pg MCHC (31.0-37.0) g/dL RDW (11.5-15.5) % Plt Count (150-450) k/uL Neutrophils % % Lymphocytes % % Monocytes % % Eosinophils % % Basophils % % Neutrophils # (1.3-7.7) k/uL Lymphocytes # (1.0-4.8) k/uL Monocytes # (0-1.0) k/uL Eosinophils # (0-0.7) k/uL Basophils # (0-0.2) k/uL PT (9.0-12.0) sec INR (<1.1) APTT (22.0-30.0) sec Sodium (137-145) mmol/L Potassium (3.5-5.1) mmol/L Chloride (98-107) mmol/L Carbon Dioxide (22-30) mmol/L Anion Gap mmol/L BUN (9-20) mg/dL Creatinine (0.66-1.25) mg/dL Est GFR (MDRD) Af Amer (>60 ml/min/1.73 sqM) Est GFR (MDRD) Non-Af (>60 ml/min/1.73 sqM) Glucose (74-99) mg/dL Calcium (8.4-10.2) mg/dL Magnesium (1.6-2.3) mg/dL Total Bilirubin (0.2-1.3) mg/dL AST (17-59) U/L ALT (21-72) U/L Alkaline Phosphatase (38-126) U/L Troponin I 0.012 (0.000-0.034) ng/mL Total Protein (6.3-8.2) g/dL Albumin (3.5-5.0) g/dL Amylase (30-110) U/L Lipase (23-300) U/L Disposition Decision Date: 07/10/16 <Selene Sanon - Last Filed: 07/10/16 20:13> <Acosta Marquez - Last Filed: 07/10/16 20:24> Clinical Impression: Intractable vomiting, Acute on chronic renal failure Disposition: ADMITTED IP TO THIS [facility] Condition: Stable Referrals: Miki Nava DO [Primary Care Provider] - 1-2 days
[2016-07-10 19:06] LABS: Basophils # (A) 0.1 k/uL (0-0.2); Basophils % (A) 0 %; CH 30.6; CHCM 35.8; Eosinophils # (A) 0.1 k/uL (0-0.7); Eosinophils % (A) 0 %; HCT 50.8 % (39.0-53.0); HDW 2.71; HGB 17.5 gm/dL (13.0-17.5); Luc # (Auto) 0.19; Luc % (Auto) 1; Lymphocytes # (A) 1.3 k/uL (1.0-4.8); Lymphocytes % (A) 5 %; MCH 29.6 pg (25.0-35.0); MCHC 34.5 g/dL (31.0-37.0); MCV 85.7 fL (80.0-100.0); Mean Platelet Volume 6.9; Monocytes % (A) 4 %; Neutrophils # (A) 21.5 k/uL (1.3-7.7); Neutrophils % (A) 89 %; RBC 5.92 m/uL (4.30-5.90); RDW 13.9 % (11.5-15.5); WBC 24.2 k/uL (3.8-10.6); WBC (Perox) 24.76
[2016-07-10 19:15] LABS: Partial Thromboplastin Time 23.1 sec (22.0-30.0); Prothrombin Time 10.5 sec (9.0-12.0)
[2016-07-10 19:17] LABS: Magnesium 1.8 mg/dL (1.6-2.3); Potassium 5.6 mmol/L (3.5-5.1); Total Bilirubin 1.8 mg/dL (0.2-1.3); Total Protein 9.7 g/dL (6.3-8.2)
[2016-07-10] MEDS ORDERED: NALOXONE 0.4 MG/ML 1 ML VIAL IV PRN (19:51)
[2016-07-10] MEDS ORDERED: ONDANSETRON 4 MG/2 ML VIAL IVP PRN (19:51)
[2016-07-10] MEDS ORDERED: SODIUM CHLORIDE 0.9% 1,000 ML IV STA ×2 (20:15→20:43)
[2016-07-10] MEDS: SODIUM CHLORIDE 0.9% 1,000 ML IV SCH (20:17)
--- NOTE | 2016-07-10 20:17 | XR ---
EXAMINATION TYPE: XR abdomen acute w cxr DATE OF EXAM: 07/10/2016 8:02 PM COMPARISON: 05/04/2016 HISTORY: Pain TECHNIQUE: 4 views FINDINGS: The lungs are clear. There is no heart failure. Diaphragm is normal. There are clips from cholecystec noe. There is no sign of intestinal obstruction or pneumoperitoneum. Fecal pattern is normal. There is amorphous density in the right lower quadrant but is probably some residual oral contrast. There i s lumbar spine fusion surgery noted. There is no evidence of a mass. IMPRESSION: Normal chest. Nonacute abdomen. No adverse change compared to old exam.
[2016-07-10] MEDS: HYDROmorphone 1 MG/ML 1 ML SYRINGE IV PRN (21:40)
[2016-07-10] MEDS ORDERED: DICYCLOMINE 20 MG TAB PO PRN (22:35)
[2016-07-10] MEDS ORDERED: hydrALAZINE HCL 20 MG/ML 1 ML VIAL IVP PRN (22:48)
[2016-07-11] MEDS: HYDROmorphone 1 MG/ML 1 ML SYRINGE IV PRN ×8 (00:13→21:43)
[2016-07-11] MEDS: metroNIDAZOLE-NS PMX 500 MG in SALINE 1 100ML.BAG IVPB SCH ×2 (00:16→09:01)
[2016-07-11] MEDS: AMITRIPTYLINE HCL 50 MG TAB PO SCH ×2 (00:16→20:50)
[2016-07-11] MEDS: cloNIDine HCL 0.1 MG TAB PO SCH ×2 (00:16→08:16)
[2016-07-11] MEDS: LEVOTHYROXINE 75 MCG TAB PO SCH (06:27)
[2016-07-11] MEDS: SODIUM CHLORIDE 0.9% 1,000 ML IV SCH ×4 (06:27→23:10)
[2016-07-11] MEDS: PANTOPRAZOLE 40 MG/10 ML VIAL IVP SCH (06:31)
[2016-07-11 08:06] LABS: Basophils % (A) 0 %; CH 30.5; CHCM 35.7; Eosinophils # (A) 0.1 k/uL (0-0.7); Eosinophils % (A) 1 %; HDW 2.77; HGB 14.6 gm/dL (13.0-17.5); Luc # (Auto) 0.22; Luc % (Auto) 2; Lymphocytes # (A) 2.2 k/uL (1.0-4.8); Lymphocytes % (A) 16 %; MCH 29.8 pg (25.0-35.0); MCHC 34.7 g/dL (31.0-37.0); MCV 85.7 fL (80.0-100.0); Mean Platelet Volume 6.8; Monocytes # (A) 0.8 k/uL (0-1.0); Monocytes % (A) 6 %; Neutrophils # (A) 10.2 k/uL (1.3-7.7); Neutrophils % (A) 75 %; RDW 13.5 % (11.5-15.5); WBC 13.6 k/uL (3.8-10.6); WBC (Perox) 14.11
[2016-07-11] MEDS: ASPIRIN 81 MG CHEW PO SCH (08:16)
[2016-07-11] MEDS: ESCITALOPRAM 20 MG TAB PO SCH (08:16)
[2016-07-11 08:17] LABS: ALT 36 U/L (21-72); AST 63 U/L (17-59); Alkaline Phosphatase 105 U/L (38-126); Anion Gap 12 mmol/L; Blood Urea Nitrogen 19 mg/dL (9-20); Calcium 9.2 mg/dL (8.4-10.2); Carbon Dioxide 21 mmol/L (22-30); Chloride 102 mmol/L (98-107); Glucose 121 mg/dL (74-99); Magnesium 1.9 mg/dL (1.6-2.3); Non-African American GFR(MDRD) >60 (>60 ml/min/1.73 sqM); Potassium 4.4 mmol/L (3.5-5.1); Sodium 135 mmol/L (137-145); Total Bilirubin 1.1 mg/dL (0.2-1.3); Total Protein 7.1 g/dL (6.3-8.2)
[2016-07-11] MEDS ORDERED: LOSARTAN 50 MG TAB PO SCH (09:00)
--- NOTE | 2016-07-11 22:09 | HP ---
DATE OF ADMISSION: 07/10/2016 Patient is a 61-year-old gentleman who came in with severe nausea, vomiting and multiple episodes yesterday and denied any hematemesis and hematochezia. The patient has some abdominal discomfort, which improved at this point of time. Patient has crampy abdominal pain, generalized body cramps and patient felt severely dehydrated. Patient came to the ER and found to have elevated creatinine. Patient denied any fever, chills abdominal pain completely resolved. Diarrhea is improving at this point of time. Patient's creatinine improved. The patient has lactic acidosis, which improved. Anion metabolic acidosis, which improved. WBC count was 24,200 which has come down to 13,600 today. Patient is concerned about his nausea, vomiting and wanted to stay one more night. Although symptoms resolved at this point of time. I do not have any Clostridium difficile testing available. Patient was hyperkalemic with slight hemolysis with the potassium of 5.6. Repeat one today is 4.4. REVIEW OF SYSTEMS: CONSTITUTIONAL: No fever, no malaise, no fatigue. HEENT: No recent visual problems or hearing problems. Denied any sore throat. CARDIOVASCULAR: No chest pain, orthopnea, PND, no palpitations, no syncope. PULMONARY: No shortness of breath, no cough, no hemoptysis. GASTROINTESTINAL: As described in HPI. NEUROLOGICAL: No headaches, no weakness, no numbness. HEMATOLOGICAL: Denies any bleeding or petechiae. GENITOURINARY: Denies any burning micturition, frequency, or urgency. MUSCULOSKELETAL/RHEUMATOLOGICAL: Denies any joint pain, swelling, or any muscle pain. ENDOCRINE: Denies any polyuria or polydipsia. The rest of the 14 point review of systems is negative. Home medications include: 1. Escitalopram. 2. Clonidine. 3. Levothyroxine. 4. Omeprazole. 5. Amitriptyline. 6. Dicyclomine. Patient has chronic diarrhea, uses this medication whenever he has diarrhea. 7. Ibuprofen. 8. Losartan. 9. Ibuprofen discontinued at this point of time. 10. Patient is on Protonix secondary to gastritis or peptic ulcer disease. 11. Aspirin. ALLERGIES: BETA BLOCKERS AND PAROXETINE. PAST MEDICAL HISTORY: Coronary artery disease, hyperlipidemia, hypertension, myocardial infarction. Osteoarthritis, pneumonia, myocardial infarction in the past, irritable bowel syndrome, migraines, back surgery, cholecystectomy, cardiac catheterization and stent placement, hernia repair, orthopedic surgery, former smoker. Denied any alcohol abuse. The patient is on medical marijuana. FAMILY HISTORY: Mother had hypothyroidism. Father had diabetes mellitus, myocardial infarction and sister had hypothyroidism and cancer that is ( ) cancer. PHYSICAL EXAMINATION: Temperature 97.1, pulse of 88, respiratory rate of 16, blood pressure 144/78, saturating at 94% on room air. GENERAL: The patient is alert and oriented x3, not in any acute distress. Well developed, well nourished. HEENT: Pupils are round and equally reacting to light. EOMI. No scleral icterus. No conjunctival pallor. Normocephalic, atraumatic. No pharyngeal erythema. No thyromegaly. CARDIOVASCULAR: S1 and S2 present. No murmurs, rubs, or gallops. PULMONARY: Chest is clear to auscultation, no wheezing or crackles. ABDOMEN: The patient has mild abdominal distention, and tympanic abdomen. MUSCULOSKELETAL: No joint swelling or deformity. EXTREMITIES: No cyanosis, clubbing, or pedal edema. NEUROLOGICAL: Gross neurological examination did not reveal any focal deficits. SKIN: No rashes. LABORATORY DATA: Significant ones discussed in the HPI itself. ASSESSMENT AND PLAN: 1. Acute renal failure secondary to nausea, vomiting and which is again secondary to either gastritis or peptic ulcer disease or event viral gastroenteritis which is improving at this point in time. C with IV fluids. Lactic acidosis improved. I do not believe patient will need antibiotics. Antibiotics will be discontinued. Avoid NSAIDS. Continue with Protonix. Possibility of discharge tomorrow. His primary care physician, Dr. Miki Nava will evaluate him tomorrow before discharge. 2. Leukocytosis, reactive response. I do not believe patient has colitis at this point of time. 3. Anion gap metabolic acidosis secondary to lactic acidosis. 4. History of coronary artery disease, continue home medications. 5. Acute renal failure, because of acute renal failure I am holding off losartan. 6. Hypertension. Hold off losartan as mentioned above. 7. Hypothyroidism, continue with levothyroxine. 8. Patient has chronic diarrhea, which is being evaluated as an outpatient by Dr. Caridad Patrick. At this point of time, patient does not have any diarrhea. Patient does have abdominal distention and a bit tympanic at this time. Which I failed to dictate earlier.
[2016-07-12] MEDS: HYDROmorphone 1 MG/ML 1 ML SYRINGE IV PRN ×3 (00:43→06:13)
[2016-07-12] MEDS: SODIUM CHLORIDE 0.9% 1,000 ML IV SCH (04:07)
[2016-07-12] MEDS: LEVOTHYROXINE 75 MCG TAB PO SCH (06:13)
[2016-07-12 07:48] VITALS: BP 143/92; PULSE 80; RESP 20; TEMP 97.1
[2016-07-12 07:58] LABS: CH 30.2; CHCM 34.1; HCT 40.6 % (39.0-53.0); HGB 13.5 gm/dL (13.0-17.5); MCH 29.5 pg (25.0-35.0); MCHC 33.3 g/dL (31.0-37.0); MCV 88.7 fL (80.0-100.0); Mean Platelet Volume 6.7; RBC 4.58 m/uL (4.30-5.90); RDW 13.6 % (11.5-15.5); WBC 9.8 k/uL (3.8-10.6)
[2016-07-12 08:59] LABS: Anion Gap 10 mmol/L; Blood Urea Nitrogen 17 mg/dL (9-20); Calcium 9.8 mg/dL (8.4-10.2); Carbon Dioxide 28 mmol/L (22-30); Chloride 99 mmol/L (98-107); Glucose 88 mg/dL (74-99); Non-African American GFR(MDRD) >60 (>60 ml/min/1.73 sqM); Sodium 137 mmol/L (137-145)
[2016-07-12] MEDS: ESCITALOPRAM 20 MG TAB PO SCH (09:02)
[2016-07-12] MEDS: ASPIRIN 81 MG CHEW PO SCH (09:02)
[2016-07-12] MEDS: PANTOPRAZOLE 40 MG/10 ML VIAL IVP SCH (09:02)
--- NOTE | 2016-09-01 18:23 | DS ---
DATE OF ADMISSION: 07/10/16 DATE OF DISCHARGE: 07/12/16 DISCHARGE MEDICATIONS: 1. Elavil 50 mg at bedtime. 2. Aspirin 81 once daily. 3. Bentyl 20 mg before meals. 4. Lexapro 30 mg daily. 5. Lotrin 800 q8. 6. Synthroid 75 one daily. 7. Cozaar 50 once daily. 8. Omeprazole 20 once daily. 9. Clonidine 0.1 t.i.d. The patient is to follow-up with me in one week. HOSPITAL COURSE/DIAGNOSES: Mr. Rueda is here for another admission to the hospital. Pleasant 61 -year-old white male who was admitted for severe nausea and vomiting. He denied any hematemesis and hematochezia. His abdominal cramps and pain have completely resolved after administration of opiate medication in the emergency department in the form of Dilaudid. His cramps went entirely away. His nausea and vomiting completely stopped. His repeat on his labs after hydration with several units of fluid have completely returned to normal. He does have acute kidney secondary to hypovolemia and dehydration but this is completely resolved as it always does. He was advised by Dr. Perez to change his blood pressure medications at this time with normal kidney function. We are going to cautiously keep him on the medication and try to avoid further opiate administration which I believe is causing his problem to begin with. He has had extensive workup with infectious disease. The patient will follow up in the office in one week. FINAL DIAGNOSES: 1. Acute gastroenteritis. 2. Acute diarrhea. 3. Acute kidney injury secondary to dehydration. 4. Chronic opioid abuse, misuse. MTDD
== END 2016-07-12 11:00 | disposition home or self-care (01) | DRG 683 ==
LOC: EC 18:18 → 4MS4W 19:49
PROVIDERS: ADMIT Family Medicine; ATTEND Family Medicine
DX: N17.9 Acute kidney failure, unspecified (principal); E87.2 Acidosis; E86.0 Dehydration; K52.9 Noninfective gastroenteritis and colitis, unspecified; E87.5 Hyperkalemia; K29.70 Gastritis, unspecified, without bleeding; R14.0 Abdominal distension (gaseous); D72.829 Elevated white blood cell count, unspecified; I12.9 Hypertensive chronic kidney disease with stage 1 through stage 4 chronic kidney disease, or unspecified chronic kidney disease; N18.9 Chronic kidney disease, unspecified; I25.10 Atherosclerotic heart disease of native coronary artery without angina pectoris; M54.42 Lumbago with sciatica, left side; M48.06 Spinal stenosis, lumbar region; R06.02 Shortness of breath; E03.9 Hypothyroidism, unspecified; E78.5 Hyperlipidemia, unspecified; I25.2 Old myocardial infarction; M54.41 Lumbago with sciatica, right side; R00.0 Tachycardia, unspecified; F11.10 Opioid abuse, uncomplicated; K27.9 Peptic ulcer, site unspecified, unspecified as acute or chronic, without hemorrhage or perforation; E86.1 Hypovolemia; G89.29 Other chronic pain; M19.90 Unspecified osteoarthritis, unspecified site; F12.90 Cannabis use, unspecified, uncomplicated; G43.909 Migraine, unspecified, not intractable, without status migrainosus; R20.0 Anesthesia of skin; Z79.82 Long term (current) use of aspirin; Z79.899 Other long term (current) drug therapy; Z82.49 Family history of ischemic heart disease and other diseases of the circulatory system; Z83.3 Family history of diabetes mellitus; Z90.49 Acquired absence of other specified parts of digestive tract; Z87.891 Personal history of nicotine dependence; Z98.1 Arthrodesis status; Z88.8 Allergy status to other drugs, medicaments and biological substances; Z86.19 Personal history of other infectious and parasitic diseases; Z87.19 Personal history of other diseases of the digestive system; Z87.09 Personal history of other diseases of the respiratory system; Z87.81 Personal history of (healed) traumatic fracture; Z95.5 Presence of coronary angioplasty implant and graft; Z87.01 Personal history of pneumonia (recurrent); Z80.8 Family history of malignant neoplasm of other organs or systems; Z79.1 Long term (current) use of non-steroidal anti-inflammatories (NSAID)
CPT/HCPCS: 36415; 74022; 80048; 80053; 82150; 83605; 83690; 83735; 84484; 85025; 85027; 85610; 85730; 93005; 94760; 96361; 96374; 96375; 99285

== ENCOUNTER → 2016-07-19 | Outpatient (CLI) | payer MEDICARE ==
[2016-07-19 15:26] VITALS: BP 152/100; PULSE 81; RESP 16; TEMP 98.4
--- NOTE | 2016-07-20 13:09 | P.PN ---
Subjective This is follow-up visit for this patient with a history of severe and chronic low back pain secondary to lumbar degenerative disc diseases , lumbar spondylosis with facet arthropathy, And failed back surgery syndrome and lumbar area, we have done interventional pain management injection,, caudal epidural steroid injections, and later on we did diagnostic medial branch block ,and followed with radiofrequency ablation of the medial branch , he got good pain relief for more than a year , and he is currently complaining of severe low back pain , radiation to the buttock,, denies excessive drowsiness or sleepiness, denies suicidal ideation, and reports that the current pain (medical marijuana ) medication is NOT helping To control the pain and improve activity of daily living ,Patient denies any motor or sensory deficit , patient denies any fever or night sweats, denies any change in the bowel movements or urination Objective - Vital Signs Vital signs: Vital Signs Temp 98.4 F 07/19/16 15:18 Pulse 81 07/19/16 15:18 Resp 16 07/19/16 15:18 BP 152/100 07/19/16 15:18 Pulse Ox 96 07/19/16 15:18 Intake & Output 07/19/16 07/20/16 07/20/16 18:59 06:59 18:59 Weight 96.615 kg - Exam Physical Examinations : 1-Constitutiona : Cooperative , not in acute distress . 2-HEENT : nech ; supple , no Lymphadenopathy , normal thyroid size . eyes : no ptosis , no icterus, no photophobia . ENT : normal of hearing , normal oropharynx , no Thrush . 3- Respiratory : Chest clear to auscultations Bilaterally , no wheezing , no Rhonchi . 4- Cardiovascular : regular rate and rhythem , S1 , S2 , no S3 , no S4. 5- Gastrointestinal : abdomen soft no tenderness , bowel sounds positive all four quadrents , no organomegally . 6- Genitourinary : Defferred . 7- neurologic : Cranial nerve II to XII intact , no focal neurological deffecit . 8-psychatric : alert , oriented X 3 , appropriate affect , intact judgment and insight . 9-Lymphatic : no Lymphadenopathy . 10- musculoskeltal : , Lumber spine = normal moter stegnth lower extremities ,thigh and legs .5/5 deep tendon reflexes : normal Knee Jerk , normal ankle Jerk . positive lumber facet Loading Test strait leg raising test positive at 30 degree , RT ,LT , Fabere test positive RT and positive LT . Assessment and Plan Plan: Assessment and plan= -chronic low back pain secondary to lumbar degenerative disc disease , lumbar spondylosis with lumbar facet arthropathy without myelopathy, failed back surgery syndrome and lumbar , patient had a good result after the radiofrequency ablation of the medial branch lumbar area, and the pain relief lasted more than one year , currently patient had a mostly secondary to a facetogenic component, he will be good candidate to have, repeates radiofrequency ablation of the medial branch lumbar area, L4 5 and L5-S1, Time with Patient: Less than 30
== END ==
LOC: PNWHC3 14:10
PROVIDERS: ATTEND Specialist
DX: M51.36 Other intervertebral disc degeneration, lumbar region (principal); M47.816 Spondylosis without myelopathy or radiculopathy, lumbar region; M46.86 Other specified inflammatory spondylopathies, lumbar region; G89.29 Other chronic pain; Z79.891 Long term (current) use of opiate analgesic
CPT/HCPCS: 99211

== ENCOUNTER → 2016-07-20 | Outpatient (CLI) | payer MEDICARE ==
[2016-07-20 14:09] LABS: ALT 49 U/L (21-72); AST 26 U/L (17-59); Cholesterol 200 mg/dL (<200); HDL Cholesterol 56 mg/dL (40-60); Triglycerides 107 mg/dL (<150)
== END | disposition home or self-care (01) ==
LOC: LABWHC1 13:33
PROVIDERS: ATTEND Internal Medicine Cardiovascular Disease
DX: E78.2 Mixed hyperlipidemia (principal)
CPT/HCPCS: 36415; 80061; 84450; 84460

== ENCOUNTER 2016-07-22 17:53 | Emergency (ER) | payer MEDICARE ==
[2016-07-22] MEDS ORDERED: HYDROmorphone 1 MG/ML 1 ML SYRINGE IVP STA (18:49)
[2016-07-22] MEDS ORDERED: ONDANSETRON 4 MG/2 ML VIAL IVP STA (18:49)
[2016-07-22] MEDS ORDERED: SODIUM CHLORIDE 0.9% 1,000 ML IV STA (18:49)
[2016-07-22 19:05] LABS: Basophils # (A) 0.1 k/uL (0-0.2); Basophils % (A) 1 %; CHCM 37.2; Eosinophils # (A) 0.1 k/uL (0-0.7); Eosinophils % (A) 1 %; HDW 2.78; Luc # (Auto) 0.12; Luc % (Auto) 1; Lymphocytes # (A) 1.5 k/uL (1.0-4.8); Lymphocytes % (A) 12 %; MCH 29.4 pg (25.0-35.0); MCHC 35.2 g/dL (31.0-37.0); Mean Platelet Volume 7.2; Monocytes # (A) 0.5 k/uL (0-1.0); Monocytes % (A) 4 %; Neutrophils # (A) 10.2 k/uL (1.3-7.7); Neutrophils % (A) 82 %; RBC 5.64 m/uL (4.30-5.90); RDW 14.2 % (11.5-15.5); WBC 12.5 k/uL (3.8-10.6); WBC (Perox) 11.74
--- NOTE | 2016-07-22 19:14 | ED ---
Nausea/Vomiting/Diarrhea HPI - General Chief complaint: Nausea/Vomiting/Diarrhea Stated complaint: VOMITING, NAUSEA Time Seen by Provider: 07/22/16 18:44 Source: patient, RN notes reviewed, old records reviewed Mode of arrival: wheelchair Limitations: no limitations - History of Present Illness Initial comments: This is a 61-year-old male presenting to emergency Department chief complaint of 1 day of nausea and vomiting. Patient reports that he feels dehydrated. He states that he's had a history of kidney failure and the symptoms occur when this occurred. Patient reports that all the symptoms began this morning. Patient reports he's had diffuse abdominal pain and it's cramping sensation. He has a history of cholecystectomy and hiatal hernia repair, he reports that they told him that his hiatal hernia has returned. Patient denies any difficulty urinating or blood in the urine. Denies any chest pain or shortness of breath. - Related Data Home Medications Medication Instructions Recorded Confirmed Escitalopram [Lexapro] 30 mg PO DAILY 06/05/13 07/22/16 cloNIDine HCL [Clonidine HCl] 0.1 mg PO TID 11/16/15 07/22/16 Levothyroxine Sodium [Synthroid] 75 mcg PO DAILY 05/04/16 07/22/16 Omeprazole 20 mg PO DAILY 05/04/16 07/22/16 Amitriptyline HCl [Elavil] 50 mg PO HS 05/14/16 07/22/16 Dicyclomine [Bentyl] 20 cap PO AC-TID PRN 05/31/16 07/22/16 Losartan [Cozaar] 50 mg PO DAILY 05/31/16 07/22/16 Aspirin [Adult Low Dose Aspirin EC] 81 mg PO DAILY 06/24/16 07/22/16 Diphenoxylate HCl/Atropine 1 - 2 tab PO Q8H PRN 07/19/16 07/22/16 [Lomotil 2.5-0.025 mg Tablet] Nitroglycerin Sl Tabs [Nitrostat] 1 tab SUBLINGUAL DIRECTED PRN 07/19/16 Ondansetron [Zofran] 4 mg PO Q8H PRN 07/19/16 07/22/16 Previous Rx's Medication Instructions Recorded Ondansetron Odt [Zofran Odt] 4 mg PO Q8HR PRN #12 tab 07/22/16 Allergies Allergy/AdvReac Type Severity Reaction Status Date / Time Beta-Blockers Allergy Rash/Hives Verified 07/22/16 19:58 (Beta-Adrenergic Bloc paroxetine HCl [From Paxil] AdvReac Unknown Abdominal Verified 07/22/16 19:58 Pain Review of Systems ROS Statement: Those systems with pertinent positive or pertinent negative responses have been documented in the HPI. ROS Other: All systems not noted in ROS Statement are negative. Past Medical History Past Medical History: Coronary Artery Disease (CAD), Chest Pain / Angina, Hyperlipidemia, Hypertension, Myocardial Infarction ([place]), Musculoskeletal Disorder, Osteoarthritis (OA), Pneumonia, Renal Disease, Thyroid Disorder Additional Past Medical History / Comment(s): Past abdominal pain with N/V and dehydration, renal problems with dehydration, lumbar sacral spinal stenosis, chronic low back pain with bilateral sciatica, pinched nerves in back, DIVERTICULITIS, 10 MIs, blood clot in left ascending artery, IBS, bronchitis, migraines, numbness/tingling bilateral feet. Last Myocardial Infarction Date:: 2013 History of Any Multi-Drug Resistant Organisms: None Reported Past Surgical History: Back Surgery, Cholecystectomy, Heart Catheterization With Stent, Hernia Repair, Orthopedic Surgery Additional Past Surgical History / Comment(s): COLONOSCOPY, EGD, ORIF LT ANKLE. BACK SURGERIES L/S fusion L3-L5, LT HAND SURGERY, RT KNEE ARTHROSC, RT ELBOW SURG, LUMBAR SPINE CYST REMOVAL AT L2 IN 2013, HIATAL HERNIA REPAIR, right shoulder arthroscopy, back injections. Past Anesthesia/Blood Transfusion Reactions: No Reported Reaction Date of Last Stent Placement:: 2013 Past Psychological History: No Psychological Hx Reported Smoking Status: Former smoker - Past Family History Mother Family Medical History: Thyroid Disorder Father Family Medical History: Diabetes Mellitus, Myocardial Infarction ([place]) Additional Family Medical History / Comment(s): TRIPLE BYPASS, [place] in his 50's or 60's. from MVA when he was in his 80's Sister(s) Family Medical History: Cancer, Thyroid Disorder Additional Family Medical History / Comment(s): SKIN CA General Exam - General Exam Comments Initial Comments: 61-year-old male. She was writhing about in pain. Limitations: no limitations General appearance: alert, in no apparent distress Head exam: Present: atraumatic, normocephalic, normal inspection Eye exam: Present: normal appearance, PERRL, EOMI. Absent: scleral icterus, conjunctival injection, periorbital swelling ENT exam: Present: normal exam, mucous membranes moist Neck exam: Present: normal inspection. Absent: tenderness, meningismus, lymphadenopathy Respiratory exam: Present: normal lung sounds bilaterally. Absent: respiratory distress, wheezes, rales, rhonchi, stridor Cardiovascular Exam: Present: regular rate, normal rhythm, normal heart sounds. Absent: systolic murmur, diastolic murmur, rubs, gallop, clicks GI/Abdominal exam: Present: soft (Diffuse abdominal tenderness.), tenderness, normal bowel sounds. Absent: distended, guarding, rebound, rigid Extremities exam: Present: normal inspection, full ROM, normal capillary refill. Absent: tenderness, pedal edema, joint swelling, calf tenderness Back exam: Present: normal inspection Neurological exam: Present: alert, oriented X3, CN II-XII intact Psychiatric exam: Present: normal affect, normal mood Skin exam: Present: warm, dry, intact, normal color. Absent: rash Course Vital Signs 07/22/16 07/22/16 07/22/16 18:09 19:22 20:47 Temperature 98.3 F 97.9 F 97.9 F Pulse Rate 110 H 90 67 Respiratory 20 18 18 Rate Blood Pressure 175/118 143/89 155/90 O2 Sat by Pulse 99 96 96 Oximetry Medical Decision Making - Medical Decision Making 61-year-old male with chief complaint of nausea, vomiting and diffuse abdominal cramping pain. Patient's lab work was reviewed. Patient does have an elevated lactic acid of 4.6. White count was 12.5. He does have the elevated kidney function BUN of 25 and creatinine 1.7. Patient lab work was discussed with Dr. Rodriguez. He also examined the patient as well. Patient is resting comfortably but after nausea medication and pain medication. We will discuss this case with Dr. Nava the patient's physician. Patient's physician, Dr. Nava states that he frequently comes to the emergency department for abdominal pain. Patient's primary care provider states that he is taking Dilaudid. Patient reports that he will be off of opiates for the next few days and then come to emergency department for further pain medication. Patient primary care provider is not concerned with his lactic acid her elevated BUN and creatinine at this time. Patient's primary care provider reports it's been much worse. Discussed with us to hydrate the patient and have him take nausea medication and follow-up L patiently with him tomorrow or the next day. Patient agrees to going home today. Patient understands treatment plan will comply. Return parameters were discussed. - Lab Data Result diagrams: 07/22/16 18:55 07/22/16 18:55 Lab Results 07/22/16 07/22/16 07/22/16 Range/Units 18:55 18:55 18:55 WBC 12.5 H (3.8-10.6) k/uL RBC 5.64 (4.30-5.90) m/uL Hgb 16.6 D (13.0-17.5) gm/dL Hct 47.0 (39.0-53.0) % MCV 83.4 D (80.0-100.0) fL MCH 29.4 (25.0-35.0) pg MCHC 35.2 (31.0-37.0) g/dL RDW 14.2 (11.5-15.5) % Plt Count 336 (150-450) k/uL Neutrophils % 82 % Lymphocytes % 12 % Monocytes % 4 % Eosinophils % 1 % Basophils % 1 % Neutrophils # 10.2 H (1.3-7.7) k/uL Lymphocytes # 1.5 (1.0-4.8) k/uL Monocytes # 0.5 (0-1.0) k/uL Eosinophils # 0.1 (0-0.7) k/uL Basophils # 0.1 (0-0.2) k/uL Sodium 138 (137-145) mmol/L Potassium 4.1 (3.5-5.1) mmol/L Chloride 98 (98-107) mmol/L Carbon Dioxide 16 L (22-30) mmol/L Anion Gap 24 mmol/L BUN 25 H (9-20) mg/dL Creatinine 1.70 H (0.66-1.25) mg/dL Est GFR (MDRD) Af Amer 50 (>60 ml/min/1.73 sqM) Est GFR (MDRD) Non-Af 41 (>60 ml/min/1.73 sqM) Glucose 140 H (74-99) mg/dL Plasma Lactic Acid Chacorta (0.7-2.0) mmol/L Calcium 12.4 H (8.4-10.2) mg/dL Total Bilirubin 0.8 (0.2-1.3) mg/dL AST 31 (17-59) U/L ALT 58 (21-72) U/L Alkaline Phosphatase 145 H (38-126) U/L Total Creatine Kinase 142 (55-170) U/L CK-MB (CK-2) 2.5 H* (0.0-2.4) ng/mL CK-MB (CK-2) Rel Index 1.8 Troponin I <0.012 (0.000-0.034) ng/mL Total Protein 9.2 H (6.3-8.2) g/dL Albumin 5.8 H (3.5-5.0) g/dL Amylase 45 (30-110) U/L Lipase 71 (23-300) U/L 07/22/16 Range/Units 18:55 WBC (3.8-10.6) k/uL RBC (4.30-5.90) m/uL Hgb (13.0-17.5) gm/dL Hct (39.0-53.0) % MCV (80.0-100.0) fL MCH (25.0-35.0) pg MCHC (31.0-37.0) g/dL RDW (11.5-15.5) % Plt Count (150-450) k/uL Neutrophils % % Lymphocytes % % Monocytes % % Eosinophils % % Basophils % % Neutrophils # (1.3-7.7) k/uL Lymphocytes # (1.0-4.8) k/uL Monocytes # (0-1.0) k/uL Eosinophils # (0-0.7) k/uL Basophils # (0-0.2) k/uL Sodium (137-145) mmol/L Potassium (3.5-5.1) mmol/L Chloride (98-107) mmol/L Carbon Dioxide (22-30) mmol/L Anion Gap mmol/L BUN (9-20) mg/dL Creatinine (0.66-1.25) mg/dL Est GFR (MDRD) Af Amer (>60 ml/min/1.73 sqM) Est GFR (MDRD) Non-Af (>60 ml/min/1.73 sqM) Glucose (74-99) mg/dL Plasma Lactic Acid Chcaorta 4.8 H* (0.7-2.0) mmol/L Calcium (8.4-10.2) mg/dL Total Bilirubin (0.2-1.3) mg/dL AST (17-59) U/L ALT (21-72) U/L Alkaline Phosphatase (38-126) U/L Total Creatine Kinase (55-170) U/L CK-MB (CK-2) (0.0-2.4) ng/mL CK-MB (CK-2) Rel Index Troponin I (0.000-0.034) ng/mL Total Protein (6.3-8.2) g/dL Albumin (3.5-5.0) g/dL Amylase (30-110) U/L Lipase (23-300) U/L - Radiology Data Radiology results: report reviewed Chest x-ray and KUB x-ray reviewed and are negative for any acute process. Disposition Clinical Impression: Abdominal pain Disposition: HOME SELF-CARE Condition: Good Instructions: Abdominal Pain (ED) Additional Instructions: Patient advised to rest, take nausea medication. Follow-up with primary care provider within the next 1-2 days. Return to the emergency department if any alarming signs or symptoms occur. Prescriptions: Ondansetron Odt [Zofran Odt] 4 mg PO Q8HR PRN #12 tab PRN Reason: Nausea Referrals: Miki Nava DO [Primary Care Provider] - 1-2 days Time of Disposition: 20:32
[2016-07-22 19:22] LABS: Calcium 12.4 mg/dL (8.4-10.2); Potassium 4.1 mmol/L (3.5-5.1); Total Bilirubin 0.8 mg/dL (0.2-1.3); Total Protein 9.2 g/dL (6.3-8.2)
[2016-07-22 19:23] VITALS: RESP 18; TEMP 97.9
[2016-07-22 19:23] LABS: HGB 16.6 gm/dL (13.0-17.5); MCV 83.4 fL (80.0-100.0)
[2016-07-22] MEDS ORDERED: SODIUM CHLORIDE 0.9% 1,000 ML IV ONE (19:41)
[2016-07-22 19:45] LABS: Creatine Kinase 142 U/L (55-170)
--- NOTE | 2016-07-22 19:50 | XR ---
Abdomen HISTORY: Pain Frontal view of the abdomen on 2 images correlated to 07/06/2016 upper GI small bowel follow-through, abdomen film 07/10/2016 Surgical clips are present in the right upper quadrant and abdomen. Postop change noted the lumbar sp ine. No pneumoperitoneum or bowel obstruction. IMPRESSION: Nonobstructive bowel gas pattern, follow-up as indicated
--- NOTE | 2016-07-22 19:51 | XR ---
EXAMINATION TYPE: XR chest 2V DATE OF EXAM: 07/22/2016 COMPARISON: Prior chest x-ray 05/31/2016 HISTORY: Abdominal pain TECHNIQUE: Frontal and lateral views of the chest are obtained. FINDINGS: There is no focal air space opacity, pleural effusion, or pneumothorax seen. The cardiac silhouette size is stable. The osseous structures are intact. IMPRESSION: No acute cardiopulmonary process.
[2016-07-22 19:57] LABS: Troponin I <0.012 ng/mL (0.000-0.034)
[2016-07-22 19:58] LABS: Creatine Kinase MB 2.5 ng/mL (0.0-2.4)
[2016-07-22 20:48] VITALS: BP 155/90; PULSE 67
== END 2016-07-22 20:48 | disposition home or self-care (01) ==
LOC: EC 17:53
DX: R10.84 Generalized abdominal pain (principal); R11.2 Nausea with vomiting, unspecified; R74.0 Nonspecific elevation of levels of transaminase and lactic acid dehydrogenase [LDH]; R94.4 Abnormal results of kidney function studies; I25.10 Atherosclerotic heart disease of native coronary artery without angina pectoris; E78.5 Hyperlipidemia, unspecified; I10 Essential (primary) hypertension; I25.2 Old myocardial infarction; M19.90 Unspecified osteoarthritis, unspecified site; E07.9 Disorder of thyroid, unspecified; K58.9 Irritable bowel syndrome, unspecified; Z87.891 Personal history of nicotine dependence; Z79.899 Other long term (current) drug therapy; Z79.82 Long term (current) use of aspirin; Z88.8 Allergy status to other drugs, medicaments and biological substances; Z95.5 Presence of coronary angioplasty implant and graft
CPT/HCPCS: 36415; 80053; 82150; 82550; 82553; 83605; 83690; 84484; 85025; 87040; 71020; 74000; 99284; 96374; 96375; 96361 ×2; J2405; J1170

== ENCOUNTER → 2016-08-06 | Outpatient (CLI) | payer MEDICARE | END | disposition home or self-care (01) | LOC: LABWHC1 09:12 | PROVIDERS: ATTEND Family Medicine | DX: E86.0 Dehydration (principal) | CPT/HCPCS: 36415; 87040 ==

== ENCOUNTER 2016-08-09 17:36 | Inpatient (IN) | payer MEDICARE ==
[2016-08-09] MEDS ORDERED: DICYCLOMINE 10 MG/ML 2 ML AMP IM STA (18:20)
[2016-08-09] MEDS ORDERED: SODIUM CHLORIDE 0.9% 1,000 ML IV ONE (18:20)
[2016-08-09] MEDS ORDERED: METOCLOPRAMIDE 5 MG/ML 2 ML VIAL IVP STA (18:20)
[2016-08-09] MEDS ORDERED: diphenhydrAMINE 50 MG/ML 1 ML VIAL IVP STA (18:20)
[2016-08-09 18:48] LABS: Basophils % (A) 0 %; CH 30.1; Eosinophils # (A) 0.1 k/uL (0-0.7); Eosinophils % (A) 0 %; HCT 52.3 % (39.0-53.0); HDW 2.97; Luc # (Auto) 0.17; Luc % (Auto) 1; Lymphocytes # (A) 1.4 k/uL (1.0-4.8); Lymphocytes % (A) 6 %; MCH 30.5 pg (25.0-35.0); MCHC 36.2 g/dL (31.0-37.0); Mean Platelet Volume 7.5; Monocytes # (A) 0.8 k/uL (0-1.0); Monocytes % (A) 4 %; Neutrophils # (A) 19.1 k/uL (1.3-7.7); Neutrophils % (A) 88 %; RBC 6.23 m/uL (4.30-5.90); RDW 13.8 % (11.5-15.5); WBC 21.6 k/uL (3.8-10.6); WBC (Perox) 22.25
--- NOTE | 2016-08-09 18:56 | ED ---
General Adult HPI - General Chief complaint: Abdominal Pain Stated complaint: Vomiting/stomach cramping Time Seen by Provider: 08/09/16 18:00 Source: patient Mode of arrival: wheelchair Limitations: no limitations - History of Present Illness Initial comments: This is a 61-year-old male with a history of recurrent hospital admissions for intractable nausea, vomiting, diarrhea and dehydration. The patient is actively being worked up by Dr. Garland for this problem. It appears that they believe he may have irritable bowel syndrome. There is unclear etiology of his symptoms. He seems to come in every couple of weeks for the symptoms. Patient states he started having vomiting and diarrhea yesterday. He denies any blood in the vomit. No lightheadedness or dizziness. No chest pain or shortness of breath. He does have a history of small bowel diverticulosis. He admits to abdominal discomfort however he believes this is from the vomiting. No other complaints. - Related Data Home Medications Medication Instructions Recorded Confirmed Escitalopram [Lexapro] 30 mg PO DAILY 06/05/13 08/09/16 cloNIDine HCL [Clonidine HCl] 0.1 mg PO BID 11/16/15 08/09/16 Levothyroxine Sodium [Synthroid] 75 mcg PO DAILY 05/04/16 08/09/16 Omeprazole 20 mg PO DAILY 05/04/16 08/09/16 Amitriptyline HCl [Elavil] 50 mg PO HS 05/14/16 08/09/16 Dicyclomine [Bentyl] 20 mg PO AC-TID PRN 05/31/16 08/09/16 Losartan [Cozaar] 50 mg PO DAILY 05/31/16 08/09/16 Aspirin [Adult Low Dose Aspirin EC] 81 mg PO DAILY 06/24/16 08/09/16 Diphenoxylate HCl/Atropine 1 tab PO Q8H PRN 07/19/16 08/09/16 [Lomotil 2.5-0.025 mg Tablet] Nitroglycerin Sl Tabs [Nitrostat] 0.4 mg SUBLINGUAL Q5M PRN 07/19/16 08/09/16 Previous Rx's Medication Instructions Recorded Ondansetron Odt [Zofran Odt] 4 mg PO Q8HR PRN #12 tab 07/22/16 Allergies Allergy/AdvReac Type Severity Reaction Status Date / Time Beta-Blockers Allergy Rash/Hives Verified 07/22/16 19:58 (Beta-Adrenergic Bloc paroxetine HCl [From Paxil] AdvReac Unknown Abdominal Verified 07/22/16 19:58 Pain Review of Systems ROS Statement: Those systems with pertinent positive or pertinent negative responses have been documented in the HPI. ROS Other: All systems not noted in ROS Statement are negative. Past Medical History Past Medical History: Coronary Artery Disease (CAD), Chest Pain / Angina, Hyperlipidemia, Hypertension, Myocardial Infarction ([place]), Musculoskeletal Disorder, Osteoarthritis (OA), Pneumonia, Renal Disease, Thyroid Disorder Additional Past Medical History / Comment(s): Past abdominal pain with N/V and dehydration, renal problems with dehydration, lumbar sacral spinal stenosis, chronic low back pain with bilateral sciatica, pinched nerves in back, DIVERTICULITIS, 10 MIs, blood clot in left ascending artery, IBS, bronchitis, migraines, numbness/tingling bilateral feet. Last Myocardial Infarction Date:: 2013 History of Any Multi-Drug Resistant Organisms: None Reported Past Surgical History: Back Surgery, Cholecystectomy, Heart Catheterization With Stent, Hernia Repair, Orthopedic Surgery Additional Past Surgical History / Comment(s): COLONOSCOPY, EGD, ORIF LT ANKLE. BACK SURGERIES L/S fusion L3-L5, LT HAND SURGERY, RT KNEE ARTHROSC, RT ELBOW SURG, LUMBAR SPINE CYST REMOVAL AT L2 IN 2013, HIATAL HERNIA REPAIR, right shoulder arthroscopy, back injections. Past Anesthesia/Blood Transfusion Reactions: No Reported Reaction Date of Last Stent Placement:: 2013 Past Psychological History: No Psychological Hx Reported Smoking Status: Former smoker Past Alcohol Use History: None Reported Past Drug Use History: None Reported - Past Family History Mother Family Medical History: Thyroid Disorder Father Family Medical History: Diabetes Mellitus, Myocardial Infarction ([place]) Additional Family Medical History / Comment(s): TRIPLE [place]PASS, [place] in his 50's or 60's. from MVA when he was in his 80's Sister(s) Family Medical History: Cancer, Thyroid Disorder Additional Family Medical History / Comment(s): SKIN CA General Exam - General Exam Comments Initial Comments: Constitutional: Awake alert appears uncomfortable and the patient is actively retching Head: Normocephalic atraumatic Eyes: no conjunctival injection No scleral icterus EOMI Neck: No JVD Supple Heart: Regular rate rhythm normal S1-S2 no murmurs Lungs: Clear to auscultation bilaterally No wheezing No rales Abdomen: Soft nondistended mild epigastric tenderness without rebound or guarding Extremities: Non edematous DP pulses intact Radial pulses intact Neuro: A&Ox3 No focal neurologic deficits Psych: Appropriate mood and affect Limitations: no limitations Course Vital Signs 08/09/16 17:54 Temperature 96.7 F L Pulse Rate 124 H Respiratory 22 Rate Blood Pressure 136/91 O2 Sat by Pulse 97 Oximetry EKG Findings - EKG Comments: EKG Findings:: EKG showing normal sinus rhythm with rate of 99. No abnormal ST segment changes or T-wave inversions. QTC is 451. Other intervals are normal. No ectopy. Medical Decision Making - Medical Decision Making This is a 61-year-old male with acute nausea and vomiting. Labwork was performed and showed severe hemoconcentration and acute kidney injury. His baseline creatinine is around 0.8 and his creatinine today is 2.6. He is given a liter of fluids. He was still complaining of some abdominal cramping and nausea and thus allotted and Zofran were ordered. Going to keep the patient in the hospital for fluid administration and GI consultation. Dr. Barbosa accepts the admission for Dr. Nava. Dr. Garland was placed on consult. - Lab Data Result diagrams: 08/09/16 18:35 08/09/16 18:35 Lab Results 08/09/16 08/09/16 Range/Units 18:35 18:35 WBC 21.6 H (3.8-10.6) k/uL RBC 6.23 H (4.30-5.90) m/uL Hgb 19.0 H (13.0-17.5) gm/dL Hct 52.3 (39.0-53.0) % MCV 84.0 (80.0-100.0) fL MCH 30.5 (25.0-35.0) pg MCHC 36.2 (31.0-37.0) g/dL RDW 13.8 (11.5-15.5) % Plt Count 369 (150-450) k/uL Neutrophils % 88 % Lymphocytes % 6 % Monocytes % 4 % Eosinophils % 0 % Basophils % 0 % Neutrophils # 19.1 H (1.3-7.7) k/uL Lymphocytes # 1.4 (1.0-4.8) k/uL Monocytes # 0.8 (0-1.0) k/uL Eosinophils # 0.1 (0-0.7) k/uL Basophils # 0.0 (0-0.2) k/uL Sodium 143 (137-145) mmol/L Potassium 4.4 (3.5-5.1) mmol/L Chloride 96 L (98-107) mmol/L Carbon Dioxide 16 L (22-30) mmol/L Anion Gap 31 mmol/L BUN 17 (9-20) mg/dL Creatinine 2.60 H (0.66-1.25) mg/dL Est GFR (MDRD) Af Amer 30 (>60 ml/min/1.73 sqM) Est GFR (MDRD) Non-Af 25 (>60 ml/min/1.73 sqM) Glucose 172 H (74-99) mg/dL Calcium 12.7 H (8.4-10.2) mg/dL Magnesium 2.2 (1.6-2.3) mg/dL Total Bilirubin 1.2 (0.2-1.3) mg/dL AST 37 (17-59) U/L ALT 48 (21-72) U/L Alkaline Phosphatase 174 H (38-126) U/L Total Protein 10.8 H (6.3-8.2) g/dL Albumin >6.0 H (3.5-5.0) g/dL Amylase 73 (30-110) U/L Lipase 128 (23-300) U/L Disposition Clinical Impression: JOSIE (acute kidney injury), Nausea & vomiting Disposition: ADMITTED IP TO THIS [facility] Condition: Stable Referrals: Miki Nava DO [Primary Care Provider] - 1-2 days
[2016-08-09 18:57] LABS: ALT 48 U/L (21-72); AST 37 U/L (17-59); Alkaline Phosphatase 174 U/L (38-126); Amylase 73 U/L (30-110); Anion Gap 31 mmol/L; Blood Urea Nitrogen 17 mg/dL (9-20); Calcium 12.7 mg/dL (8.4-10.2); Carbon Dioxide 16 mmol/L (22-30); Chloride 96 mmol/L (98-107); Glucose 172 mg/dL (74-99); Magnesium 2.2 mg/dL (1.6-2.3); Non-African American GFR(MDRD) 25 (>60 ml/min/1.73 sqM); Potassium 4.4 mmol/L (3.5-5.1); Sodium 143 mmol/L (137-145); Total Bilirubin 1.2 mg/dL (0.2-1.3); Total Protein 10.8 g/dL (6.3-8.2)
--- NOTE | 2016-08-09 19:09 | XR ---
EXAMINATION TYPE: XR abdomen acute w cxr DATE OF EXAM: 08/09/2016 COMPARISON: 07/10/2016 HISTORY: Vomiting TECHNIQUE: 3 views FINDINGS: Lungs are clear of infiltrate. There is no heart failure. Heart size is normal. There is no sign of intestinal obstruction or pneumoperitoneum. Fecal pattern is normal. There are ro ds and screws fusing the lower lumbar spine. There are clips from cholecystectomy. IMPRESSION: Nonacute abdomen. No active cardiopulmonary disease. No adverse change compared to old exam.
[2016-08-09] MEDS ORDERED: HYDROmorphone 1 MG/ML 1 ML SYRINGE IVP STA (19:23)
[2016-08-09] MEDS ORDERED: ONDANSETRON 4 MG/2 ML VIAL IVP STA (19:23)
[2016-08-09] MEDS ORDERED: ONDANSETRON 4 MG/2 ML VIAL IVP PRN (19:27)
[2016-08-09] MEDS ORDERED: MORPHINE SULFATE 4 MG/ML SYRINGE IV PRN (19:27)
[2016-08-09] MEDS ORDERED: NALOXONE 0.4 MG/ML 1 ML VIAL IV PRN (19:27)
[2016-08-09] MEDS: SODIUM CHLORIDE 0.9% 1,000 ML IV SCH (20:30)
[2016-08-09] MEDS: AMITRIPTYLINE HCL 50 MG TAB PO SCH (22:28)
[2016-08-09] MEDS: cloNIDine HCL 0.1 MG TAB PO SCH (22:28)
[2016-08-10] MEDS ORDERED: DICYCLOMINE 20 MG TAB PO PRN (00:19)
[2016-08-10] MEDS ORDERED: DIPHENOX-ATROP 2.5-0.025 MG 1 EACH TAB PO PRN (00:19)
[2016-08-10] MEDS ORDERED: NITROGLYCERIN SL TABS 0.4 MG TAB SUBLINGUAL PRN (00:19)
[2016-08-10] MEDS: TEMAZEPAM 15 MG CAP PO PRN ×2 (00:40→23:36)
[2016-08-10] MEDS: HYDROmorphone 1 MG/ML 1 ML SYRINGE IVP PRN ×6 (00:42→23:36)
[2016-08-10] MEDS: SODIUM CHLORIDE 0.9% 1,000 ML IV SCH ×3 (04:56→17:21)
[2016-08-10] MEDS: LEVOTHYROXINE 75 MCG TAB PO SCH ×2 (06:27→08:09)
[2016-08-10 08:01] LABS: Calcium 9.5 mg/dL (8.4-10.2); Potassium 4.6 mmol/L (3.5-5.1)
[2016-08-10 08:05] LABS: Basophils % (A) 0 %; CH 30.4; CHCM 35.9; Eosinophils % (A) 0 %; HCT 42.4 % (39.0-53.0); Luc # (Auto) 0.17; Luc % (Auto) 1; Lymphocytes % (A) 15 %; MCH 29.7 pg (25.0-35.0); MCHC 34.9 g/dL (31.0-37.0); MCV 85.1 fL (80.0-100.0); Mean Platelet Volume 7.3; Monocytes # (A) 0.7 k/uL (0-1.0); Monocytes % (A) 5 %; Neutrophils # (A) 10.1 k/uL (1.3-7.7); Neutrophils % (A) 78 %; RBC 4.98 m/uL (4.30-5.90); RDW 14.2 % (11.5-15.5); WBC 13.1 k/uL (3.8-10.6); WBC (Perox) 12.78
[2016-08-10] MEDS: cloNIDine HCL 0.1 MG TAB PO SCH ×2 (08:08→20:01)
[2016-08-10] MEDS: HEPARIN SODIUM,PORCINE 5,000 UNIT/ML 1 ML VIAL SQ SCH ×2 (08:09→20:01)
[2016-08-10] MEDS: PANTOPRAZOLE 40 MG/10 ML VIAL IVP SCH ×2 (08:09→20:01)
[2016-08-10 08:28] LABS: HGB 14.8 gm/dL (13.0-17.5)
[2016-08-10 16:34] LABS: Appearance,Urine Clear (Clear); Bilirubin,Urine Negative (Negative); Glucose,Urine (UA) Negative (Negative); Ketones,Urine Negative (Negative); Leukocyte Esterase,Urine Negative (Negative); Nitrite,Urine Negative (Negative); PH, Urine 5.5 (5.0-8.0); Protein,Urine Negative (Negative); Specific Gravity,Urine 1.003 (1.001-1.035); UA Billing (MACRO vs. MICRO) CHEM; Urobilinogen,Urine <2.0 mg/dL (<2.0)
[2016-08-10] MEDS: AMITRIPTYLINE HCL 50 MG TAB PO SCH (20:01)
[2016-08-10 23:18] VITALS: RESP 18
[2016-08-11] MEDS: SODIUM CHLORIDE 0.9% 1,000 ML IV SCH ×2 (03:46→10:29)
[2016-08-11] MEDS: HYDROmorphone 1 MG/ML 1 ML SYRINGE IVP PRN ×3 (03:47→11:43)
[2016-08-11 07:13] LABS: Basophils # (A) 0.1 k/uL (0-0.2); Basophils % (A) 1 %; CH 30.3; CHCM 35.5; Eosinophils # (A) 0.1 k/uL (0-0.7); Eosinophils % (A) 1 %; HDW 2.81; HGB 13.6 gm/dL (13.0-17.5); Luc # (Auto) 0.15; Luc % (Auto) 2; Lymphocytes # (A) 2.7 k/uL (1.0-4.8); Lymphocytes % (A) 33 %; MCH 30.6 pg (25.0-35.0); MCHC 35.7 g/dL (31.0-37.0); MCV 85.6 fL (80.0-100.0); Mean Platelet Volume 7.6; Monocytes # (A) 0.5 k/uL (0-1.0); Monocytes % (A) 6 %; Neutrophils # (A) 4.7 k/uL (1.3-7.7); Neutrophils % (A) 58 %; RBC 4.44 m/uL (4.30-5.90); WBC 8.1 k/uL (3.8-10.6)
[2016-08-11 07:32] VITALS: BP 150/68; PULSE 78; TEMP 97.5
[2016-08-11 07:34] LABS: Anion Gap 9 mmol/L; Blood Urea Nitrogen 20 mg/dL (9-20); Calcium 9.1 mg/dL (8.4-10.2); Carbon Dioxide 26 mmol/L (22-30); Chloride 105 mmol/L (98-107); Glucose 97 mg/dL (74-99); Non-African American GFR(MDRD) >60 (>60 ml/min/1.73 sqM); Potassium 4.9 mmol/L (3.5-5.1); Sodium 140 mmol/L (137-145)
[2016-08-11] MEDS: HEPARIN SODIUM,PORCINE 5,000 UNIT/ML 1 ML VIAL SQ SCH (07:44)
[2016-08-11] MEDS: PANTOPRAZOLE 40 MG/10 ML VIAL IVP SCH (07:44)
[2016-08-11] MEDS: LEVOTHYROXINE 75 MCG TAB PO SCH (07:45)
[2016-08-11] MEDS: cloNIDine HCL 0.1 MG TAB PO SCH (07:45)
--- NOTE | 2016-08-11 18:44 | HP ---
HISTORY AND PHYSICAL DATE OF ADMISSION/SERVICE: 08/09/2016 CHIEF COMPLAINT: Abdominal pain, vomiting and cramping. HISTORY OF PRESENT ILLNESS: This 61-year-old gentleman with a past medical history of multiple medical problems and a long-standing history of irritable bowel syndrome, history of CAD, hypertension, hyperlipidemia, history of pneumonia, history of diverticulosis, being followed by Dr. Nava in the outpatient setting, was complaining of abdominal pain and vomiting. The patient came to [facility] and was admitted for further evaluation and treatment. Dr. Patrick has diagnosed the patient with irritable bowel syndrome. There is no history of any fever, rigor or chills. No history of headache, loss of consciousness, seizures. The pain was diffuse in character. The patient had acute abdominal series on admission which showed non-acute abdomen. PAST MEDICAL HISTORY: 1. History of CAD. 2. Hypertension. 3. Hyperlipidemia. 4. History of myocardial infarction. 5. History of pneumonia. 6. History of renal disease. 7. History of diverticulitis. 8. History of back surgery. HOME MEDICATIONS: 1. Clonidine 0.1 p.o. b.i.d. 2. Zofran 4 mg q.8 p.r.n. 3. Omeprazole 20 mg daily. 4. Nitro 0.4 sublingually p.r.n. 5. Cozaar 50 mg daily. 6. Synthroid 75 mcg p.o. daily. 7. Lexapro 30 mg daily. 8. Lomotil 1 tablet q.8 p.r.n. 9. Bentyl 20 mg t.i.d. p.r.n. 10. Aspirin 81 mg daily. 11. Elavil 50 mg at bedtime. ALLERGIES: BETA BLOCKERS AND PAXIL. FAMILY HISTORY: History of diabetes mellitus and myocardial infarction and CABG in the family. SOCIAL HISTORY: Previous history of smoking. Occasional THC. REVIEW OF SYSTEMS: ENT: No diminished hearing. No diminished vision. CARDIOVASCULAR SYSTEM: No angina, palpitations. RESPIRATORY SYSTEM: No cough, hemoptysis. GI: No nausea, vomiting. As mentioned earlier. : No dysuria, retention. NERVOUS SYSTEM: No numbness, weakness. ALLERGY/IMMUNOLOGY: No asthma, hayfever. ENDOCRINE: Hypothyroidism. MUSCULOSKELETAL: As mentioned earlier. HEMATOLOGY/ONCOLOGY: No history of anemia. CONSTITUTIONAL: As mentioned earlier. DERMATOLOGIC: Negative. RHEUMATOLOGIC: Negative. PSYCHIATRY: As mentioned earlier. PHYSICAL EXAMINATION: Patient is alert and oriented x3. Pulse is 99, blood pressure 158/100, respirations 18, temperature 98.2, pulse ox 97% on room air. HEENT: Conjunctivae normal. Oral mucosa moist. NECK: No jugular venous congestion. No carotid bruit. No lymph node enlargement. CARDIAC: S1, S2 muffled. No S3. No S4. RESPIRATORY: Breath sounds diminished at the bases. No rhonchi. No crackles. ABDOMEN: Soft. Mild diffuse tenderness present. Otherwise, no guarding. No rigidity. No mass palpable. LEGS: No edema. No swelling. NERVOUS SYSTEM: Higher functions as mentioned earlier. Moves all 4 limbs. No focal motor or sensory deficit. LYMPHATICS: No lymph node palpable in neck, axillae or groin. SKIN: No ulcer, rash or bleeding. LABS AT THIS TIME: WBC 21.6. Creatinine is 2.6. Calcium is 12.7. Alkaline phosphatase 174. ASSESSMENT: 1. Acute abdominal pain, nausea, vomiting, possible acute gastritis. 2. Acute renal failure, possibly prerenal renal failure and acute tubular necrosis. 3. Increased white count. Rule out infection. 4. Increased hemoglobin.\ 5. History of irritable bowel syndrome. RECOMMENDATIONS AND DISCUSSION: In this 61-year-old gentleman who presented with multiple complex medical issues, we will monitor the patient closely, continue the current medications, continue with IV fluids, monitor creatinine closely. Will obtain the cultures. Symptomatic treatment provided. Will continue to monitor. Discussed with the patient. Prognosis guarded. We will follow the patient closely with you. Patient may be asked to follow up with Dr. Nava closely after discharge. BASIL
--- NOTE | 2016-08-11 18:51 | PN ---
DATE OF SERVICE: 08/11/2016 This 61-year-old gentleman who was admitted with dehydration, abdominal pain, gastritis and renal failure is being closely monitored. The patient is on IV fluids. No chest pain. No palpitations. No fever. On exam, alert and oriented x3. The pulse is 78, blood pressure 142/81, respiratory rate 16, temperature 98.1, pulse ox 94% on room air. HEENT: Conjunctivae normal. NECK: No jugular venous distention. CARDIOVASCULAR: S1, S2 muffled. RESPIRATORY: Breath sounds diminished at the bases. No rhonchi. No crackles. ABDOMEN: Soft, non-tender. No mass palpable. LEGS: No edema. No swelling. NERVOUS SYSTEM: No focal deficit. LABS: WBC 13.1. Creatinine is 2.16. ASSESSMENT: 1. Acute renal failure; possible acute tubular necrosis. 2. Vomiting and abdominal pain; acute gastritis. 3. Increased white count. 4. History of irritable bowel syndrome. 5. Multiple medical issues. RECOMMENDATIONS AND DISCUSSION: In this 61-year-old gentlemen who presented with multiple complex medical issues, we will monitor the patient closely, continue the current medications, continue with symptomatic treatment. Otherwise , at this time I recommend continuing with the IV fluids. Monitor creatinine closely. Further recommendations to follow. MTDD
--- NOTE | 2016-08-11 22:39 | DS ---
DATE OF DISCHARGE: 08/11/2016 FINAL DIAGNOSES: 1. Abdominal pain, nausea, vomiting; possible acute gastritis. 2. Acute renal failure, possibly prerenal renal failure, with acute tubular necrosis. 3. Increased white count, reactive. 4. Increased hemoglobin, improved. 5. History of irritable bowel syndrome. 6. Multiple complex medical issues. DISCHARGE DISPOSITION: The patient will be discharged in stable condition with guarded prognosis. HISTORY OF PRESENT ILLNESS: This 61-year-old gentleman with a past medical history of multiple medical problems, admitted with abdominal pain and vomiting , had features of acute gastritis. Treated symptomatically. The patient also had acute renal failure. With IV fluids he improved significantly. On exam, vitals are stable. CARDIOVASCULAR: S1, S2 muffled. ABDOMEN: Soft. NERVOUS SYSTEM: No focal deficit. DISCHARGE ADVICE AND MEDICATIONS: 1. Diet is cardiac. 2. Activity limited until followup. 3. Follow up with Dr. Nava in 2 to 3 days with CBC, BMP. 4. Elavil 50 mg at bedtime. 5. Ecotrin 81 mg p.o. daily. 6. Clonidine 0.1 mg p.o. b.i.d. 7. Bentyl 20 mg before meals t.i.d. p.r.n. 8. Lexapro 30 mg p.o. daily. 9. Synthroid 75 mcg p.o. daily. 10. Cozaar 50 mg p.o. daily. 11. Nitro 0.4 sublingually p.r.n. 12. Omeprazole 20 mg p.o. daily. 13. Zofran 4 mg q.8 p.r.n. Once again, the patient will be discharged in stable condition with guarded prognosis. MTDD
== END 2016-08-11 13:41 | disposition home or self-care (01) | DRG 684 ==
LOC: EC 17:36 → 4MS4W 19:27
PROVIDERS: ADMIT Hospitalist; ATTEND Hospitalist
DX: N17.0 Acute kidney failure with tubular necrosis (principal); I10 Essential (primary) hypertension; K29.00 Acute gastritis without bleeding; K57.10 Diverticulosis of small intestine without perforation or abscess without bleeding; I25.10 Atherosclerotic heart disease of native coronary artery without angina pectoris; D72.829 Elevated white blood cell count, unspecified; K58.0 Irritable bowel syndrome with diarrhea; E86.0 Dehydration; F12.90 Cannabis use, unspecified, uncomplicated; E78.5 Hyperlipidemia, unspecified; M48.07 Spinal stenosis, lumbosacral region; G89.29 Other chronic pain; G43.909 Migraine, unspecified, not intractable, without status migrainosus; M54.31 Sciatica, right side; M54.32 Sciatica, left side; M19.90 Unspecified osteoarthritis, unspecified site; I25.2 Old myocardial infarction; Z83.3 Family history of diabetes mellitus; Z87.01 Personal history of pneumonia (recurrent); Z87.891 Personal history of nicotine dependence; Z79.82 Long term (current) use of aspirin; Z79.899 Other long term (current) drug therapy; Z82.49 Family history of ischemic heart disease and other diseases of the circulatory system; Z88.8 Allergy status to other drugs, medicaments and biological substances; Z87.19 Personal history of other diseases of the digestive system; Z86.19 Personal history of other infectious and parasitic diseases; Z87.09 Personal history of other diseases of the respiratory system; Z87.81 Personal history of (healed) traumatic fracture; Z95.5 Presence of coronary angioplasty implant and graft; Z98.1 Arthrodesis status; Z80.8 Family history of malignant neoplasm of other organs or systems; Z83.49 Family history of other endocrine, nutritional and metabolic diseases; Z87.448 Personal history of other diseases of urinary system; Z86.39 Personal history of other endocrine, nutritional and metabolic disease
CPT/HCPCS: 36415; 74022; 80048; 80053; 80306; 81003; 82150; 83690; 83735; 85025; 87086; 93005

== ENCOUNTER 2016-08-26 07:19 | Day surgery (SDC) | payer MEDICARE ==
[2016-08-20 12:51] VITALS: BMI 30.2
[2016-08-26] MEDS ORDERED: LACTATED RINGERS 1,000 ML IV SCH (07:30)
[2016-08-26] MEDS ORDERED: LIDOCAINE 1% 20 ML VIAL (10MG/ML) FOR IV START INTRADERMA ONE (07:58)
[2016-08-26 08:01] VITALS: RESP 16; TEMP 97.8
[2016-08-26] MEDS ORDERED: IV FLUID CONTINUATION 700 ML IV ONE (09:05)
--- NOTE | 2016-08-26 09:12 | FL ---
EXAMINATION TYPE: FL guided pain mgmt statistic DATE OF EXAM: 08/26/2016 HISTORY: Flouroscopy time 17 seconds of fluoroscopy provided. IMPRESSION: 1. Fluoroscopy time.
[2016-08-26 09:18] VITALS: BP 115/65; PULSE 70
--- NOTE | 2016-08-26 12:57 | P.PCN ---
Date of Procedure: 08/26/16 Preoperative Diagnosis: Postoperative Diagnosis: Procedure(s) Performed: Implants: Surgeon: Husam Apple Pathology: none sent Condition: stable Disposition: PACU Indications for Procedure: Operative Findings: Description of Procedure: PREOPERATIVE DIAGNOSIS: Lumbar spondylosis without myelopathy and facet arthropathy POSTOPERATIVE DIAGNOSIS: Lumbar spondylosis without myelopathy and facet arthropathy PROCEDURES: Left Radiofrequency thermocoagulation, L2-L3, L4-L5, and L5-S1 medial branch, with fluoroscopic guidance. ANESTHESIA: 1% lidocaine plain; Conscious sedation with versed/fentanyl EBL: Minimal PROCEDURE INDICATION: The patient with low back pain secondary to lumbar arthropathy who had more than 50% relief of pain with previous diagnostic lumbar medial branch block with bupivacaine. Patient presents for repeat left lumbar RFA today; no use of blood thinners. PROCEDURE DESCRIPTION / TECHNIQUE: The patient was seen and identified in the preoperative area. Risks, benefits, complications, and alternatives were discussed with the patient (including but not limited to incomplete pain relief , bleeding, infection, nerve damage, and allergies to medications), the patient agreed to proceed with the procedure and signed the consent after all questions were answered. Patient was taken to the OR and time out was completed to verify proper patient , position, laterality of pain, and allergies. Pt was placed in the prone position. IV was started. Vital signs remained stable throughout the procedure. A pillow was placed under the patients chest to decrease lordosis. The lumbosacral area was prepped and draped in the usual sterile fashion. Vital signs were closely monitored during the procedure. Conscious sedation was used during the procedure to decrease patients anxiety. Using AP and then oblique fluoroscopy, the eye of the Saroj dog corresponding to the connection between the superior and transverse articular processes of left L3, L5 and top of the sacrum were identified, marked, and localized with 1% lidocaine. Subsequently, a 20 gauge, 100-mm radiofrequency cannula with a 10-mm active tip was advanced guided by fluoroscopy to each of the eyes of the Saroj dog at left L2, L4, and L5 medial branches. Each site then underwent sensory testing at 50 Hz and 0 to 1 volt and motor testing at 2 Hz and 0 to 3 volt with local stimulation, but no radicular symptoms down the legs. Thereafter the left L2, L4, and L5 medial branch sites underwent radiofrequency thermocoagulation at 80 degrees Celsius for 90 seconds after injecting 0.5 ml of PF lidocaine 1%. After thermocoagulation, 1 ml of the block solution containing Kenalog 40 mg and 2 mL of preservative-free normal saline was injected at the left L2, L4, and L5 medial branch levels after negative aspiration of CSF and blood and with no paresthesias. Cannulas were retracted while injecting lidocaine 1% until the needles were removed. At the end of the procedure, the skin was cleansed and bandages were applied. COMPLICATIONS: No acute complications. DISPOSITION / PLANS: The patient was placed in a supine position and transferred to the recovery area in a stable condition for observation and was discharged from the recovery room after meeting discharge criteria. Home discharge instructions given to the patient by the staff. The patient was reexamined prior to discharge. The patient will schedule a right lumbar RFA in 2 -4 weeks. L2, L4, and L5 were done today due to difficult visualization as patient has interpedicular screws at multiple levels.
== END 2016-08-26 09:26 | disposition home or self-care (01) ==
LOC: ORPAIN 07:19
PROVIDERS: ATTEND Anesthesiology
DX: G89.29 Other chronic pain (principal); M47.816 Spondylosis without myelopathy or radiculopathy, lumbar region; M46.96 Unspecified inflammatory spondylopathy, lumbar region; I10 Essential (primary) hypertension; Z88.8 Allergy status to other drugs, medicaments and biological substances; Z79.01 Long term (current) use of anticoagulants; Z79.82 Long term (current) use of aspirin; Z95.5 Presence of coronary angioplasty implant and graft
CPT/HCPCS: 64635; 64636 ×2; 99152; J2250; J3301; J3010; 99153

== ENCOUNTER 2016-09-05 16:23 | Emergency (ER) | payer MEDICARE ==
[2016-09-05] MEDS ORDERED: METOCLOPRAMIDE 5 MG/ML 2 ML VIAL IVP STA (16:54)
[2016-09-05] MEDS ORDERED: FAMOTIDINE 20 MG/2 ML VIAL IV STA (16:54)
[2016-09-05] MEDS ORDERED: SODIUM CHLORIDE 0.9% 1,000 ML IV STA (16:54)
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
[2016-09-05] MEDS ORDERED: MORPHINE SULFATE 4 MG/ML SYRINGE IV STA (17:02)
[2016-09-05 17:29] LABS: Basophils % (A) 0 %; CH 30.5; CHCM 36.1; Eosinophils % (A) 0 %; HDW 2.78; HGB 15.3 gm/dL (13.0-17.5); Luc # (Auto) 0.14; Luc % (Auto) 1; Lymphocytes # (A) 1.2 k/uL (1.0-4.8); Lymphocytes % (A) 7 %; MCH 30.2 pg (25.0-35.0); MCHC 35.6 g/dL (31.0-37.0); MCV 84.9 fL (80.0-100.0); Monocytes % (A) 6 %; Neutrophils # (A) 14.3 k/uL (1.3-7.7); Neutrophils % (A) 86 %; RBC 5.06 m/uL (4.30-5.90); RDW 13.7 % (11.5-15.5); WBC 16.7 k/uL (3.8-10.6); WBC (Perox) 16.84
[2016-09-05 17:41] LABS: ALT 38 U/L (21-72); AST 20 U/L (17-59); Alkaline Phosphatase 115 U/L (38-126); Amylase 34 U/L (30-110); Anion Gap 16 mmol/L; Blood Urea Nitrogen 16 mg/dL (9-20); Calcium 10.4 mg/dL (8.4-10.2); Carbon Dioxide 22 mmol/L (22-30); Chloride 103 mmol/L (98-107); Glucose 83 mg/dL (74-99); Non-African American GFR(MDRD) >60 (>60 ml/min/1.73 sqM); Potassium 3.7 mmol/L (3.5-5.1); Sodium 141 mmol/L (137-145); Total Bilirubin 0.6 mg/dL (0.2-1.3); Total Protein 7.9 g/dL (6.3-8.2)
[2016-09-05 18:05] VITALS: RESP 18
--- NOTE | 2016-09-05 18:08 | XR ---
EXAMINATION TYPE: XR KUB DATE OF EXAM: 09/05/2016 CLINICAL DATA: 61-year-old male with pain and vomiting, H COMPARISON: 07/22/2016 FINDINGS: Lung bases are clear. No evidence for free intraperitoneal air. Cholecystectomy clips are present. Additional lumbar fusion hardware with laminectomies. No dilated small bowel. A view small air-fluid levels are noted in the lower abdomen. Moderate stool in the right hemicolon. IMPRESSION: 1. No evidence for free air. Overall nonobstructive bowel gas pattern. 2. A few small air-fluid levels in the lower abdomen could reflect an enteritis or regional ileus.
[2016-09-05 18:34] VITALS: BP 133/80; PULSE 80; TEMP 98.6
== END 2016-09-05 18:39 | disposition home or self-care (01) ==
LOC: EC 16:23
DX: R11.2 Nausea with vomiting, unspecified (principal); M54.9 Dorsalgia, unspecified; R10.9 Unspecified abdominal pain; I25.10 Atherosclerotic heart disease of native coronary artery without angina pectoris; E78.5 Hyperlipidemia, unspecified; I10 Essential (primary) hypertension; I25.2 Old myocardial infarction; E07.9 Disorder of thyroid, unspecified; K58.9 Irritable bowel syndrome, unspecified; Z87.891 Personal history of nicotine dependence; Z79.82 Long term (current) use of aspirin; Z79.899 Other long term (current) drug therapy; Z88.8 Allergy status to other drugs, medicaments and biological substances
CPT/HCPCS: 36415; 80053; 82150; 83690; 85025; 74000; 99284; 96374; 96375 ×2; 96361; J2270; J2765

== ENCOUNTER 2016-09-10 15:29 | Emergency (ER) | payer MEDICARE ==
[2016-09-10] MEDS ORDERED: SODIUM CHLORIDE 0.9% 1,000 ML IV STA (16:17)
[2016-09-10] MEDS ORDERED: SODIUM CHLORIDE 0.9% 500 ML IV STA (16:17)
[2016-09-10] MEDS ORDERED: METOCLOPRAMIDE 5 MG/ML 2 ML VIAL IVP STA (16:17)
[2016-09-10] MEDS ORDERED: MORPHINE SULFATE 4 MG/ML SYRINGE IVP STA (16:18)
[2016-09-10] MEDS ORDERED: FAMOTIDINE 20 MG/2 ML VIAL IV STA (16:18)
[2016-09-10 17:40] LABS: Basophils % (A) 0 %; CH 31.2; CHCM 37.2; Eosinophils % (A) 0 %; HCT 45.6 % (39.0-53.0); HDW 2.79; HGB 16.6 gm/dL (13.0-17.5); Luc # (Auto) 0.15; Luc % (Auto) 1; Lymphocytes # (A) 1.4 k/uL (1.0-4.8); Lymphocytes % (A) 7 %; MCH 30.6 pg (25.0-35.0); MCHC 36.4 g/dL (31.0-37.0); MCV 84.3 fL (80.0-100.0); Mean Platelet Volume 7.2; Monocytes % (A) 6 %; Neutrophils # (A) 15.7 k/uL (1.3-7.7); Neutrophils % (A) 86 %; RBC 5.41 m/uL (4.30-5.90); RDW 13.7 % (11.5-15.5); WBC 18.4 k/uL (3.8-10.6); WBC (Perox) 18.17
[2016-09-10 18:00] LABS: Calcium 11.3 mg/dL (8.4-10.2); Potassium 4.1 mmol/L (3.5-5.1); Total Protein 8.9 g/dL (6.3-8.2)
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
[2016-09-10 19:12] VITALS: BP 142/63; PULSE 74; RESP 16; TEMP 98.2
== END 2016-09-10 19:11 | disposition home or self-care (01) ==
LOC: EC 15:29
DX: E86.0 Dehydration (principal); N17.9 Acute kidney failure, unspecified; I25.10 Atherosclerotic heart disease of native coronary artery without angina pectoris; E78.5 Hyperlipidemia, unspecified; I10 Essential (primary) hypertension; I25.2 Old myocardial infarction; M19.90 Unspecified osteoarthritis, unspecified site; K58.9 Irritable bowel syndrome, unspecified; E07.9 Disorder of thyroid, unspecified; Z87.891 Personal history of nicotine dependence; Z79.82 Long term (current) use of aspirin; Z79.899 Other long term (current) drug therapy; Z88.8 Allergy status to other drugs, medicaments and biological substances; Z90.49 Acquired absence of other specified parts of digestive tract
CPT/HCPCS: 36415; 80053; 82150; 83690; 85025; 99284; 96374; 96375 ×2; 96361 ×2; J2270; J2765

== ENCOUNTER → 2016-09-13 | Outpatient (CLI) | payer MEDICARE ==
[2016-09-13 11:24] LABS: Basophils % (A) 0 %; CH 30.3; Eosinophils # (A) 0.2 k/uL (0-0.7); Eosinophils % (A) 2 %; HCT 42.9 % (39.0-53.0); HDW 2.73; Luc # (Auto) 0.14; Luc % (Auto) 2; Lymphocytes # (A) 2.2 k/uL (1.0-4.8); Lymphocytes % (A) 27 %; MCH 30.4 pg (25.0-35.0); MCV 86.7 fL (80.0-100.0); Mean Platelet Volume 6.8; Monocytes # (A) 0.4 k/uL (0-1.0); Monocytes % (A) 5 %; Neutrophils # (A) 5.2 k/uL (1.3-7.7); Neutrophils % (A) 63 %; RBC 4.95 m/uL (4.30-5.90); RDW 13.7 % (11.5-15.5); WBC 8.2 k/uL (3.8-10.6); WBC (Perox) 8.14
[2016-09-13 11:52] LABS: Anion Gap 10 mmol/L; Blood Urea Nitrogen 21 mg/dL (9-20); Carbon Dioxide 27 mmol/L (22-30); Chloride 104 mmol/L (98-107); Glucose 106 mg/dL (74-99); Iron 64 ug/dL (49-181); Non-African American GFR(MDRD) >60 (>60 ml/min/1.73 sqM); Phosphorous 3.4 mg/dL (2.5-4.5); Potassium 5.1 mmol/L (3.5-5.1); Sodium 141 mmol/L (137-145); Uric Acid 7.2 mg/dL (3.5-8.5)
[2016-09-13 12:00] LABS: % Iron Saturation 17.7 % (20-50); Total Iron Binding Capacity 361 ug/dL (261-462)
== END | disposition home or self-care (01) ==
LOC: LABWHC1 10:53
PROVIDERS: ATTEND Internal Medicine Nephrology
DX: N17.9 Acute kidney failure, unspecified (principal); D50.9 Iron deficiency anemia, unspecified; E55.9 Vitamin D deficiency, unspecified; N25.81 Secondary hyperparathyroidism of renal origin; M10.9 Gout, unspecified; N39.0 Urinary tract infection, site not specified
CPT/HCPCS: 36415; 80048; 82306; 82728; 83540; 83550; 83735; 83970; 84100; 84550; 85025

== ENCOUNTER 2016-09-20 15:37 | Inpatient (IN) | payer MEDICARE ==
[2016-09-20] MEDS ORDERED: ONDANSETRON 4 MG/2 ML VIAL IVP STA (16:54)
[2016-09-20] MEDS ORDERED: SODIUM CHLORIDE 0.9% 500 ML IV STA (16:54)
[2016-09-20] MEDS ORDERED: SODIUM CHLORIDE 0.9% 1,000 ML IV STA (16:54)
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
[2016-09-20 17:25] LABS: Basophils # (A) 0.1 k/uL (0-0.2); Basophils % (A) 0 %; CH 30.8; CHCM 35.9; Eosinophils # (A) 0.1 k/uL (0-0.7); Eosinophils % (A) 0 %; HCT 50.6 % (39.0-53.0); HDW 2.81; HGB 17.7 gm/dL (13.0-17.5); Luc # (Auto) 0.26; Luc % (Auto) 1; Lymphocytes # (A) 1.7 k/uL (1.0-4.8); Lymphocytes % (A) 8 %; MCHC 34.9 g/dL (31.0-37.0); MCV 85.9 fL (80.0-100.0); Mean Platelet Volume 7.2; Monocytes # (A) 1.3 k/uL (0-1.0); Monocytes % (A) 6 %; Neutrophils # (A) 19.5 k/uL (1.3-7.7); Neutrophils % (A) 85 %; RBC 5.89 m/uL (4.30-5.90); RDW 13.9 % (11.5-15.5); WBC (Perox) 23.49
[2016-09-20 17:32] LABS: Magnesium 1.8 mg/dL (1.6-2.3); Potassium 4.4 mmol/L (3.5-5.1); Total Bilirubin 1.2 mg/dL (0.2-1.3)
[2016-09-20 19:52] LABS: Appearance,Urine Turbid (Clear); Bilirubin,Urine Negative (Negative); Glucose,Urine (UA) Trace (Negative); Ketones,Urine Negative (Negative); Leukocyte Esterase,Urine Negative (Negative); Mucus,Urine Moderate /hpf; Nitrite,Urine Negative (Negative); Particle Count 20150; Protein,Urine 3+ (Negative); RBC,Urine 3 /hpf (0-5); Specific Gravity,Urine 1.012 (1.001-1.035); UA Billing (MACRO vs. MICRO) MICRO
--- NOTE | 2016-09-20 20:25 | XR ---
EXAMINATION TYPE: XR chest 2V DATE OF EXAM: 09/20/2016 COMPARISON: 07/22/2016 HISTORY: Dehydration. Difficulty breathing TECHNIQUE: Frontal and lateral views of the chest are obtained. FINDINGS: Heart and mediastinum are normal. Lungs are clear of consolidation. There are small linear density at the left lung base. There are no hilar masses. There is no pleural effusion. IMPRESSION: Minimal scarring or subsegmental atelectasis at the left lung base. Normal heart. No migue nge.
[2016-09-20] MEDS ORDERED: ONDANSETRON 4 MG/2 ML VIAL IVP PRN (20:51)
[2016-09-20] MEDS ORDERED: SODIUM CHLORIDE 0.9% 1,000 ML IV ONE (20:52)
[2016-09-20] MEDS: SODIUM CHLORIDE 0.9% 1,000 ML IV SCH (21:25)
[2016-09-20] MEDS ORDERED: PANTOPRAZOLE 40 MG/10 ML VIAL IVP STA (22:03)
[2016-09-20 23:26] VITALS: RESP 16; BMI 28.1
[2016-09-21] MEDS ORDERED: DIPHENOX-ATROP 2.5-0.025 MG 1 EACH TAB PO PRN (08:07)
[2016-09-21] MEDS ORDERED: DICYCLOMINE 20 MG TAB PO PRN (08:07)
[2016-09-21] MEDS ORDERED: ONDANSETRON ODT 4 MG TAB PO PRN (08:07)
[2016-09-21] MEDS: cloNIDine HCL 0.1 MG TAB PO SCH ×2 (08:32→20:39)
[2016-09-21] MEDS: ESCITALOPRAM 10 MG TAB PO SCH (08:54)
[2016-09-21] MEDS: LOSARTAN 50 MG TAB PO SCH (08:54)
[2016-09-21] MEDS: LEVOTHYROXINE 75 MCG TAB PO SCH (08:54)
[2016-09-21] MEDS: ASPIRIN 81 MG CHEW PO SCH (08:54)
[2016-09-21] MEDS: PANTOPRAZOLE 40 MG TABLET PO SCH (08:54)
[2016-09-21 09:19] LABS: ALT 43 U/L (21-72); AST 36 U/L (17-59); Alkaline Phosphatase 84 U/L (38-126); Anion Gap 8 mmol/L; Basophils % (A) 0 %; Blood Urea Nitrogen 16 mg/dL (9-20); CH 31.3; CHCM 35.2; Calcium 8.9 mg/dL (8.4-10.2); Carbon Dioxide 19 mmol/L (22-30); Chloride 108 mmol/L (98-107); Eosinophils # (A) 0.1 k/uL (0-0.7); Eosinophils % (A) 1 %; Glucose 109 mg/dL (74-99); HCT 40.2 % (39.0-53.0); HDW 2.63; Luc # (Auto) 0.15; Luc % (Auto) 2; Lymphocytes # (A) 1.9 k/uL (1.0-4.8); Lymphocytes % (A) 18 %; MCH 29.8 pg (25.0-35.0); MCHC 33.4 g/dL (31.0-37.0); MCV 89.1 fL (80.0-100.0); Mean Platelet Volume 7.5; Monocytes # (A) 0.5 k/uL (0-1.0); Monocytes % (A) 5 %; Neutrophils # (A) 7.7 k/uL (1.3-7.7); Neutrophils % (A) 74 %; Non-African American GFR(MDRD) 59 (>60 ml/min/1.73 sqM); Potassium 4.8 mmol/L (3.5-5.1); RBC 4.51 m/uL (4.30-5.90); RDW 14.8 % (11.5-15.5); Sodium 135 mmol/L (137-145); Total Protein 6.5 g/dL (6.3-8.2); WBC 10.3 k/uL (3.8-10.6); WBC (Perox) 10.18
[2016-09-21 09:24] LABS: HGB 13.4 gm/dL (13.0-17.5)
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
--- NOTE | 2016-09-21 12:58 | P.NPCON ---
History of Present Illness - Reason for Consult acute renal failure - History of Present Illness Reason for consultation: Acute kidney injury History of present illness: Patient is a 61-year-old male seen in renal consultation for acute kidney injury. Patient presented to hospital for nausea and vomiting that has been quite intermittent for him. Patient states he woke up yesterday morning and was dry heaving. He had multiple episodes of emesis and was not able to tolerate much oral intake. He denies any diarrhea. He denies use of NSAIDs. Denies any family history of renal disease. No fever or chills. Admits to good urine output. No hematuria or dysuria. His baseline creatinine is 1 and was elevated at 2.15 on admission. He is currently maintained on normal saline at 100 mL an hour and creatinine is down to 1.24 this morning. He is currently resting in bed. Hemodynamically he is stable. No other complaints at this time. Vital signs are stable. General: The patient appeared well nourished and normally developed. HEENT: Head exam is unremarkable. Neck is without jugular venous distension. LUNGS: Lungs are clear to auscultation and percussion. Breath sounds decreased. HEART: Rate and Rhythm are regular. First and second heart sounds normal. No murmurs, rubs or gallops. ABDOMEN: Abdominal exam reveals normal bowel sounds. Non-tender and non- distended. No evidence of peritonitis. EXTREMITITES: No clubbing, cyanosis, or edema. Past Medical History Past Medical History: Coronary Artery Disease (CAD), Chest Pain / Angina, Hyperlipidemia, Hypertension, Myocardial Infarction (AR), Musculoskeletal Disorder, Osteoarthritis (OA), Renal Disease, Thyroid Disorder Additional Past Medical History / Comment(s): lumbar sacral spinal stenosis, chronic low back pain with bilateral sciatica, pinched nerves in back, DIVERTICULITIS, IBS, bronchitis, migraines, numbness/tingling bilateral feet. Last Myocardial Infarction Date:: 2013 History of Any Multi-Drug Resistant Organisms: None Reported Past Surgical History: Back Surgery, Cholecystectomy, Heart Catheterization With Stent, Hernia Repair, Orthopedic Surgery Additional Past Surgical History / Comment(s): COLONOSCOPY, EGD, ORIF LT ANKLE. BACK SURGERIES L/S fusion L3-L5, LT HAND SURGERY, RT KNEE ARTHROSC, RT ELBOW SURG, LUMBAR SPINE CYST REMOVAL AT L2 IN 2014, HIATAL HERNIA REPAIR, right shoulder arthroscopy, back injections. Past Anesthesia/Blood Transfusion Reactions: No Reported Reaction Date of Last Stent Placement:: 2013 Past Psychological History: No Psychological Hx Reported Additional Psychological History / Comment(s): pt resides with his spouse in a ranch style home that has 2 front steps. He uses a cane as needed. He drives.has 2 pet dogs(1 pit bull and 1 english comer) Smoking Status: Former smoker Past Alcohol Use History: None Reported Additional Past Alcohol Use History / Comment(s): smoked from 1971 to 1983 Past Drug Use History: Marijuana Additional Drug Use History / Comment(s): smokes 3 joints a day - Past Family History Mother Family Medical History: Thyroid Disorder Father Family Medical History: Diabetes Mellitus, Myocardial Infarction (AR) Additional Family Medical History / Comment(s): TRIPLE BYPASS, [place] in his 50's or 60's. from MVA when he was in his 80's Sister(s) Family Medical History: Cancer, Thyroid Disorder Additional Family Medical History / Comment(s): SKIN CA Medications and Allergies Home Medications Medication Instructions Recorded Confirmed Type Escitalopram [Lexapro] 30 mg PO DAILY 06/05/13 09/20/16 History cloNIDine HCL [Clonidine HCl] 0.1 mg PO BID 11/16/15 09/20/16 History Levothyroxine Sodium [Synthroid] 75 mcg PO DAILY 05/04/16 09/20/16 History Omeprazole 20 mg PO DAILY 05/04/16 09/20/16 History Amitriptyline HCl [Elavil] 50 mg PO HS 05/14/16 09/20/16 History Dicyclomine [Bentyl] 20 mg PO AC-TID PRN 05/31/16 09/20/16 History Losartan [Cozaar] 50 mg PO DAILY 05/31/16 09/20/16 History Aspirin [Adult Low Dose Aspirin EC] 81 mg PO DAILY 06/24/16 09/20/16 History Diphenoxylate HCl/Atropine 1 tab PO Q8H PRN 07/19/16 09/20/16 History [Lomotil 2.5-0.025 mg Tablet] Nitroglycerin Sl Tabs [Nitrostat] 0.4 mg SUBLINGUAL Q5M PRN 07/19/16 09/20/16 History Allergies Allergy/AdvReac Type Severity Reaction Status Date / Time Beta-Blockers Allergy Rash/Hives Verified 09/20/16 16:55 (Beta-Adrenergic Bloc paroxetine HCl [From Paxil] AdvReac Unknown Abdominal Verified 09/20/16 16:55 Pain Physical Exam Vitals: Vital Signs Temp Pulse Pulse Resp BP BP BP 09/21/16 09:26 85 145/88 09/21/16 08:00 85 16 09/21/16 07:00 98.1 F 86 16 173/100 172/87 09/21/16 00:00 78 16 09/20/16 23:25 98.2 F 78 16 148/83 09/20/16 22:55 98.0 F 76 20 146/65 09/20/16 22:05 83 18 146/84 09/20/16 20:46 98.8 F 87 16 130/78 09/20/16 19:57 86 18 143/91 09/20/16 16:04 97.0 F L 119 H 26 H 147/105 Pulse Ox 09/21/16 09:26 09/21/16 08:00 09/21/16 07:00 95 09/21/16 00:00 09/20/16 23:25 97 09/20/16 22:55 99 09/20/16 22:05 96 09/20/16 20:46 96 09/20/16 19:57 97 09/20/16 16:04 98 Intake and Output 09/20/16 09/21/16 09/21/16 22:59 06:59 14:59 Intake Total 800 Output Total 360 900 Balance -360 -100 Intake: Intake, IV Titration 800 Amount Sodium Chloride 0.9% 1, 800 000 ml @ 100 mls/hr IV . Q10H [facility] Rx#:[id number] Output: Urine 360 900 Straight 30 Other: Voiding Method Toilet Toilet Urinal Urinal # Voids 5 Weight 91.5 kg Results - Lab Results Most recent lab results Calcium 8.9 mg/dL (8.4-10.2) 09/21/16 08:35 Magnesium 1.8 mg/dL (1.6-2.3) 09/20/16 17:10 09/21/16 08:35 09/21/16 08:35 Assessment and Plan Plan: Assessment: #1. Nonoliguric acute kidney injury mostly prerenal secondary to severe intravascular volume depletion from nausea and vomiting. Improving with IV hydration. Creatinine was 2.15 on admission and is down to 1.24 today. #2. Nausea and vomiting. Questionable gastroenteritis. #3. Metabolic acidosis secondary to acute kidney injury. Improved. #4. Benign hypertension. Plan: Continue normal saline to be run at 100 mL an hour. Encouraged oral intake as able to tolerate. Repeat electrolytes in the morning. He is noted to have proteinuria on urinalysis which can be nonspecific in the setting of acute kidney injury. Prior urinalysis did not reveal any proteinuria. Will reevaluate once GFR returns to baseline. Thank you for the consultation. I will continue to follow the patient with you during his hospital stay.
[2016-09-21] MEDS: SODIUM CHLORIDE 0.9% 1,000 ML IV SCH ×2 (20:40→20:42)
[2016-09-21] MEDS ORDERED: ACETAMINOPHEN TAB 325 MG TAB PO STA (20:43)
[2016-09-21] MEDS ORDERED: AMITRIPTYLINE HCL 50 MG TAB PO SCH (21:00)
[2016-09-22] MEDS ORDERED: KETOROLAC 30 MG/ML 1 ML VIAL IVP STA (00:11)
[2016-09-22] MEDS ORDERED: CYCLOBENZAPRINE 10 MG TAB PO STA (00:11)
[2016-09-22] MEDS: SODIUM CHLORIDE 0.9% 1,000 ML IV SCH (05:40)
[2016-09-22] MEDS: LEVOTHYROXINE 75 MCG TAB PO SCH (06:17)
[2016-09-22 07:41] VITALS: BP 178/91; PULSE 75; TEMP 97.6
[2016-09-22 08:20] LABS: Anion Gap 9 mmol/L; Blood Urea Nitrogen 15 mg/dL (9-20); Calcium 9.3 mg/dL (8.4-10.2); Carbon Dioxide 24 mmol/L (22-30); Chloride 106 mmol/L (98-107); Creatine Kinase 325 U/L (55-170); Glucose 99 mg/dL (74-99); Non-African American GFR(MDRD) >60 (>60 ml/min/1.73 sqM); Potassium 4.9 mmol/L (3.5-5.1); Sodium 139 mmol/L (137-145)
[2016-09-22] MEDS: ESCITALOPRAM 10 MG TAB PO SCH (09:32)
[2016-09-22] MEDS: LOSARTAN 50 MG TAB PO SCH (09:32)
[2016-09-22] MEDS: PANTOPRAZOLE 40 MG TABLET PO SCH (09:32)
[2016-09-22] MEDS: ASPIRIN 81 MG CHEW PO SCH (09:32)
[2016-09-22] MEDS: cloNIDine HCL 0.1 MG TAB PO SCH (09:32)
--- NOTE | 2016-09-22 09:58 | P.PN ---
Subjective Principal diagnosis: Nausea vomiting dehydration and acute kidney injury 61-year-old male well-known to the GI service for history of IBS chronic nausea vomiting abdominal pain with history of of opioid dependency. He did with acute kidney injury nausea muscle cramps. Feels better this morning. Tolerating diet. Intermittent nausea no emesis. Creatinine improved to 0.9. Objective - Vital Signs Vital signs: Vital Signs Temp 97.6 F 09/22/16 07:00 Pulse 75 09/22/16 08:00 Resp 16 09/22/16 08:00 BP 178/91 09/22/16 07:00 Pulse Ox 99 09/22/16 07:00 Intake & Output 09/21/16 09/22/16 09/22/16 18:59 06:59 18:59 Intake Total 700 1200 Balance 700 1200 Intake: Intake, IV Titration 700 1200 Amount Sodium Chloride 0.9% 1, 700 1200 000 ml @ 100 mls/hr IV . Q10H [facility] Rx#:[id number] Other: Voiding Method Toilet Toilet Toilet Urinal Urinal Urinal # Voids 2 3 - Exam General appearance: The patient is alert, oriented, in no acute distress. HET: Head is normocephalic and atraumatic. Pupils are equal and reactive. Oropharynx is clear without lesions. Neck: Supple without lymphadenopathy. Trachea midline. Heart: S1 S2. Regular rate and rhythm. Lungs: No crackles or wheezes are heard. Abdomen: Soft, nontender, nondistended with bowel sounds. No peritoneal signs. No palpable organomegaly or masses. Extremities: Normal skin color and turgor. No cyanosis, rash, ulceration, clubbing, or edema. Radial and pedal pulses are 2/4 bilaterally. Neurological: No focal deficits. Strength and sensation are grossly intact. - Labs CBC & Chem 7: 09/21/16 08:35 09/22/16 07:40 Labs: Abnormal Lab Results - Last 24 Hours (Table) 09/21/16 09/22/16 Range/Units 08:35 07:40 Creatine Kinase 1093 H 325 H (55-170) U/L Microbiology - Last 24 Hours (Table) 09/20/16 21:28 Blood Culture - Preliminary Blood No Growth after 24 hours Assessment and Plan (1) Nausea & vomiting Narrative/Plan: 61-year-old male presents with acute kidney injury with nausea vomiting muscle cramps without fever or bleeding. Etiology of presentation is unclear possible gastroenteritis possible dehydration exacerbated nausea vomiting. History of IBS mixed with chronic nausea vomiting abdominal pain greater than 5 years duration. Status: Acute (2) JOSIE (acute kidney injury) Status: Acute Plan: 1. Overall patient is feeling better. Charge per medicine. Dr. Patrick discuss antinausea medications with patient on discharge will provide Phenergan 12.5 mg 4 times daily as needed. Return to office in 2-3 weeks for reevaluation. Continue with GI prophylaxis. IV hydration. Biochemically improving. Assessment and plan a care discussed with Dr. Patrick
[2016-09-22] MEDS ORDERED: PROMETHAZINE 25 MG TAB PO PRN (10:00)
--- NOTE | 2016-09-22 11:56 | P.PN ---
Subjective Patient is seen in follow-up for acute kidney injury. Baseline creatinine is 1 and was elevated at 2.15 this admission. With IV hydration his creatinine is down to 0.93. Patient presented with nausea and vomiting which is now resolved. He is tolerating oral intake. Admits to good urine output. Denies chest pain or shortness of breath. No active complaints at this time. Vital signs are stable. General: The patient appeared well nourished and normally developed. HEENT: Head exam is unremarkable. Neck is without jugular venous distension. LUNGS: Lungs are clear to auscultation and percussion. Breath sounds decreased. HEART: Rate and Rhythm are regular. First and second heart sounds normal. No murmurs, rubs or gallops. ABDOMEN: Abdominal exam reveals normal bowel sounds. Non-tender and non- distended. No evidence of peritonitis. EXTREMITITES: No clubbing, cyanosis, or edema. Objective - Vital Signs Vital signs: Vital Signs Temp 97.6 F 09/22/16 07:00 Pulse 75 09/22/16 08:00 Resp 16 09/22/16 08:00 BP 178/91 09/22/16 07:00 Pulse Ox 99 09/22/16 07:00 Intake & Output 09/21/16 09/22/16 09/22/16 18:59 06:59 18:59 Intake Total 700 1200 Balance 700 1200 Intake: Intake, IV Titration 700 1200 Amount Sodium Chloride 0.9% 1, 700 1200 000 ml @ 100 mls/hr IV . Q10H [facility] Rx#:[id number] Other: Voiding Method Toilet Toilet Toilet Urinal Urinal Urinal # Voids 2 3 - Labs CBC & Chem 7: 09/21/16 08:35 09/22/16 07:40 Labs: Abnormal Lab Results - Last 24 Hours (Table) 09/21/16 09/22/16 Range/Units 08:35 07:40 Creatine Kinase 1093 H 325 H (55-170) U/L Microbiology - Last 24 Hours (Table) 09/20/16 21:28 Blood Culture - Preliminary Blood No Growth after 24 hours Assessment and Plan Plan: Assessment: #1. Nonoliguric acute kidney injury mostly prerenal secondary to severe intravascular volume depletion from nausea and vomiting. Improving with IV hydration. Creatinine was 2.15 on admission and is down to 0.93 today. #2. Nausea and vomiting. Questionable gastroenteritis. #3. Metabolic acidosis secondary to acute kidney injury. Improved. #4. Benign hypertension. Blood pressures in the higher side. Partially related to IV fluids. Plan: Hep-Lock IV fluids. Encouraged oral intake as able to tolerate. Repeat electrolytes in the morning. He is noted to have proteinuria on urinalysis which can be nonspecific in the setting of acute kidney injury. Prior urinalysis did not reveal any proteinuria. Will reevaluate as outpatient once GFR returns to baseline. Potential discharge today.
--- NOTE | 2016-09-22 13:11 | HP ---
DATE OF SERVICE: 09/21/2016 Patient is a pleasant 61-year-old white male who was admitted last evening with acute nausea, vomiting and apparent kidney injury with rising creatinine. Patient had 3 days of nausea and he woke up yesterday morning with dry heaves and vomiting, multiple episodes of emesis and dehydration. Patient has had numerous bouts of emesis and intermittent nausea and vomiting related to this above problem. He has suffered from opiate withdrawal as well as irritable bowel syndrome, GERD, and acute kidney injury on multiple occasions. Past medical history is significant for coronary artery disease, GERD, hyperlipidemia, hypertension, history of myocardial infarction, musculoskeletal disease in the form of degenerative osteoarthritis, degenerative spinal disease , lumbar and sacral stenosis, chronic low back pain with history of chronic pain and chronic pain abuse. He has been on medication such as OxyContin, [place] , Vicodin, fentanyl patch, Dilaudid, morphine. He is on a pattern of every 10 to 14 days receiving an injection through the ER of some type of narcotic analgesic, mostly in the form of morphine or Dilaudid. History of diverticulitis, IBS. Past surgical history is significant for lumbar fusion, lumbar injections, cholecystectomy, heart catheterization with stent, hernia repair and orthopedic surgeries including hand surgery, right knee arthroscopy, elbow surgery, right shoulder surgery. Former alcohol abuse, former smoker, quite in 1983. Past marijuana use and probable current marijuana use. Family history of thyroid disorder in his mom. Father of myocardial infarction. MEDICATIONS: 1. Lexapro. 2. Clonidine. 3. Synthroid. 4. Omeprazole. 5. Elavil. 6. Bentyl. 7. Cozaar. 8. Aspirin. 9. Lomotil. 10. Nitrostat sublingual. Allergy to BETA BLOCKERS and PAXIL. PHYSICAL EXAM: Patient is alert and oriented x3. Feels much better this morning. He is answering questions appropriately. HEENT is normocephalic and atraumatic. Neck is supple, no JVD. HEART: Regular rate and rhythm. Lungs clear to auscultation. ABDOMEN: Soft, nontender, no rebound, rigidity, guarding. There is no rashes. Skin is arm, dry to palpation. EXTREMITIES: No cyanosis, clubbing or jaundice. PSYCHOLOGICAL: Answers questions appropriately. IMPRESSION: 1. Acute kidney injury secondary to intravascular volume depletion. 2. Persistent intermittent nausea and vomiting. 3. Metabolic acidosis. 4. Hypertension. 5. Coronary artery disease. 6. Gastroesophageal reflux disease. 7. Irritable bowel syndrome. 8. Chronic opioid misuse and use which he has been weaning off for several months. PLAN: Continue with Nephrology consult, GI consultation, hydration. Continue to follow patient's overall progress. [facility]IL
--- NOTE | 2016-09-24 20:25 | DS ---
DATE OF ADMISSION: 09/20/2016 DATE OF DISCHARGE: 09/22/2016 DISCHARGE MEDICATIONS include: 1. Phenergan 12.5 mg q.6 p.r.n. nausea. 2. Lexapro 30 mg daily. 3. Klonopin 0.1 b.i.d. 4. Synthroid 75 one daily. 5. Omeprazole 20 one daily. 6. Amitriptyline 50 at bedtime. 7. Cozaar 50 once daily. 8. Bentyl 20 mg p.o. before meals t.i.d. for abdominal cramping. 9. Aspirin 81 mg once daily. 10. Nitroglycerin sublingually p.r.n. 11. Lomotil 2.5 caps p.r.n. 12. Zofran ODT 4 mg q.8 p.r.n. FINAL DIAGNOSES: 1. Acute kidney injury secondary to intravascular volume depletion. 2. Persistent ( ) nausea and vomiting. 3. Metabolic acidosis. 4. Hypertension. 5. Coronary artery disease, stable. 6. Gastroesophageal reflux disease. 7. Irritable bowel syndrome. 8. Chronic opioid misuse and abuse. HOSPITAL COURSE: This is a pleasant 61-year-old white male who was admitted ( ) last evening with acute nausea, vomiting and apparent acute kidney injury. He was hydrated and seen by Nephrology as well as GI. Both have cleared patient for discharge, with almost complete resolution of renal failure. Plan is to discharge patient with above medication. [facility]
== END 2016-09-22 15:05 | disposition home or self-care (01) | DRG 683 ==
LOC: EC 15:37 → 4MS4W 20:49 → 5MS5E 22:16
PROVIDERS: ADMIT Family Medicine; ATTEND Family Medicine
DX: N17.9 Acute kidney failure, unspecified (principal); E87.2 Acidosis; E78.5 Hyperlipidemia, unspecified; D72.829 Elevated white blood cell count, unspecified; E86.0 Dehydration; F12.90 Cannabis use, unspecified, uncomplicated; I10 Essential (primary) hypertension; I25.10 Atherosclerotic heart disease of native coronary artery without angina pectoris; I25.2 Old myocardial infarction; K21.9 Gastro-esophageal reflux disease without esophagitis; K58.0 Irritable bowel syndrome with diarrhea; G43.909 Migraine, unspecified, not intractable, without status migrainosus; G62.9 Polyneuropathy, unspecified; G89.29 Other chronic pain; M19.90 Unspecified osteoarthritis, unspecified site; M48.06 Spinal stenosis, lumbar region; M54.41 Lumbago with sciatica, right side; M54.42 Lumbago with sciatica, left side; E07.9 Disorder of thyroid, unspecified; K57.90 Diverticulosis of intestine, part unspecified, without perforation or abscess without bleeding; R11.2 Nausea with vomiting, unspecified; Z79.82 Long term (current) use of aspirin; Z79.899 Other long term (current) drug therapy; Z87.891 Personal history of nicotine dependence; Z88.8 Allergy status to other drugs, medicaments and biological substances; Z95.5 Presence of coronary angioplasty implant and graft; Z82.49 Family history of ischemic heart disease and other diseases of the circulatory system
CPT/HCPCS: 36415; 51798; 71020; 80048; 80053; 80306; 81001; 82150; 82550; 83690; 83735; 85025; 87040; 96361; 96374; 96375; 99285

== ENCOUNTER 2016-09-28 15:48 | Emergency (ER) | payer MEDICARE ==
[2016-09-28] MEDS ORDERED: METOCLOPRAMIDE 5 MG/ML 2 ML VIAL IVP STA (16:17)
[2016-09-28] MEDS ORDERED: diphenhydrAMINE 50 MG/ML 1 ML VIAL IVP STA (16:17)
[2016-09-28] MEDS ORDERED: SODIUM CHLORIDE 0.9% 2,000 ML IV STA (16:17)
[2016-09-28] MEDS ORDERED: MORPHINE SULFATE 2 MG/ML SYRINGE IVP ONE (16:17)
[2016-09-28 16:46] LABS: Basophils # (A) 0.1 k/uL (0-0.2); Basophils % (A) 0 %; CH 30.8; CHCM 36.1; Eosinophils % (A) 0 %; HCT 49.8 % (39.0-53.0); HDW 2.93; Luc # (Auto) 0.33; Luc % (Auto) 2; Lymphocytes # (A) 1.8 k/uL (1.0-4.8); Lymphocytes % (A) 8 %; MCH 29.9 pg (25.0-35.0); MCHC 34.9 g/dL (31.0-37.0); MCV 85.6 fL (80.0-100.0); Monocytes # (A) 1.2 k/uL (0-1.0); Monocytes % (A) 6 %; Neutrophils # (A) 18.1 k/uL (1.3-7.7); Neutrophils % (A) 84 %; RBC 5.82 m/uL (4.30-5.90); RDW 13.8 % (11.5-15.5); WBC 21.5 k/uL (3.8-10.6); WBC (Perox) 22.27
[2016-09-28 16:49] LABS: HGB 17.4 gm/dL (13.0-17.5)
[2016-09-28 16:52] LABS: Calcium 12.3 mg/dL (8.4-10.2); Potassium 4.2 mmol/L (3.5-5.1); Total Protein 9.5 g/dL (6.3-8.2)
[2016-09-28] MEDS ORDERED: PANTOPRAZOLE 40 MG/10 ML VIAL IVP STA (17:28)
--- NOTE | 2016-09-28 17:32 | ED ---
General Adult HPI - General Chief complaint: Nausea/Vomiting/Diarrhea Stated complaint: Vomiting Time Seen by Provider: 09/28/16 15:57 Source: patient, EMS, RN notes reviewed, old records reviewed Mode of arrival: EMS Limitations: no limitations - History of Present Illness Initial comments: This is a 61-year-old male presenting to the emergency department with chief complaint of increased nausea and vomiting and cramping for the past day. Patient was recently discharged for similar episode. He was noted to have elevated creatinine and white blood cell count at the time. Patient has been admitted multiple times for similar symptoms. The patient's reports a primary care provider is concerned that maybe it related to receiving narcotics , and when he starts to withdrawal he has these episodes. Patient is not currently receiving any narcotic pain medications primary care provider wants him to see if this will stop having the symptoms. Patient reports that he's had multiple episodes of vomiting and feels very dehydrated. Patient denies any recent fever or chills, chest pain, shortness of breath. - Related Data Home Medications Medication Instructions Recorded Confirmed Escitalopram [Lexapro] 30 mg PO DAILY 06/05/13 09/28/16 cloNIDine HCL [Clonidine HCl] 0.1 mg PO BID 11/16/15 09/28/16 Levothyroxine Sodium [Synthroid] 75 mcg PO DAILY 05/04/16 09/28/16 Omeprazole 20 mg PO DAILY 05/04/16 09/28/16 Amitriptyline HCl [Elavil] 50 mg PO HS 05/14/16 09/28/16 Dicyclomine [Bentyl] 20 mg PO AC-TID PRN 05/31/16 09/28/16 Losartan [Cozaar] 50 mg PO DAILY 05/31/16 09/28/16 Aspirin [Adult Low Dose Aspirin EC] 81 mg PO DAILY 06/24/16 09/28/16 Diphenoxylate HCl/Atropine 1 tab PO Q8H PRN 07/19/16 09/28/16 [Lomotil 2.5-0.025 mg Tablet] Nitroglycerin Sl Tabs [Nitrostat] 0.4 mg SUBLINGUAL Q5M PRN 07/19/16 09/28/16 Cholecalciferol [Vitamin D3] 1,000 unit PO DAILY 09/23/16 09/28/16 Ferrous Sulfate [Feosol] 325 mg PO DAILY 09/23/16 09/28/16 Previous Rx's Medication Instructions Recorded Ondansetron Odt [Zofran Odt] 4 mg PO Q8HR PRN #10 tab 09/10/16 Promethazine [Phenergan] 12.5 mg PO Q6HR PRN #120 tablet 09/22/16 Allergies Allergy/AdvReac Type Severity Reaction Status Date / Time Beta-Blockers Allergy Rash/Hives Verified 09/23/16 13:15 (Beta-Adrenergic Bloc paroxetine HCl [From Paxil] AdvReac Unknown Abdominal Verified 09/23/16 13:15 Pain Review of Systems ROS Statement: Those systems with pertinent positive or pertinent negative responses have been documented in the HPI. ROS Other: All systems not noted in ROS Statement are negative. Past Medical History Past Medical History: Coronary Artery Disease (CAD), Chest Pain / Angina, Hyperlipidemia, Hypertension, Myocardial Infarction ([place]), Musculoskeletal Disorder, Osteoarthritis (OA), Renal Disease, Thyroid Disorder Additional Past Medical History / Comment(s): lumbar sacral spinal stenosis, chronic low back pain with bilateral sciatica, pinched nerves in back, DIVERTICULITIS, IBS, bronchitis, migraines, numbness/tingling bilateral feet. Last Myocardial Infarction Date:: 2013 History of Any Multi-Drug Resistant Organisms: None Reported Past Surgical History: Back Surgery, Cholecystectomy, Heart Catheterization With Stent, Hernia Repair, Orthopedic Surgery Additional Past Surgical History / Comment(s): COLONOSCOPY, EGD, ORIF LT ANKLE. BACK SURGERIES L/S fusion L3-L5, LT HAND SURGERY, RT KNEE ARTHROSC, RT ELBOW SURG, LUMBAR SPINE CYST REMOVAL AT L2 IN 2013, HIATAL HERNIA REPAIR, right shoulder arthroscopy, back injections. Past Anesthesia/Blood Transfusion Reactions: No Reported Reaction Date of Last Stent Placement:: 2013 Past Psychological History: No Psychological Hx Reported Smoking Status: Former smoker - Past Family History Mother Family Medical History: Thyroid Disorder Father Family Medical History: Diabetes Mellitus, Myocardial Infarction ([place]) Additional Family Medical History / Comment(s): TRIPLE BYPASS, [place] in his 50's or 60's. from MVA when he was in his 80's Sister(s) Family Medical History: Cancer, Thyroid Disorder Additional Family Medical History / Comment(s): SKIN CA General Exam - General Exam Comments Initial Comments: Is a 61-year-old male. Patient is actively vomiting when walking in exam room. Patient appears in mild to moderate discomfort. Limitations: no limitations General appearance: alert Head exam: Present: atraumatic, normocephalic, normal inspection Eye exam: Present: normal appearance, PERRL, EOMI. Absent: scleral icterus, conjunctival injection, periorbital swelling ENT exam: Present: normal exam, mucous membranes moist Neck exam: Present: normal inspection. Absent: tenderness, meningismus, lymphadenopathy Respiratory exam: Present: normal lung sounds bilaterally. Absent: respiratory distress, wheezes, rales, rhonchi, stridor Cardiovascular Exam: Present: regular rate, normal rhythm, normal heart sounds. Absent: systolic murmur, diastolic murmur, rubs, gallop, clicks GI/Abdominal exam: Present: soft, tenderness (Mild to moderate abdominal tenderness. Patient is tender over her entire abdomen.), normal bowel sounds. Absent: distended, guarding, rebound, rigid Extremities exam: Present: normal inspection, full ROM, normal capillary refill. Absent: tenderness, pedal edema, joint swelling, calf tenderness Back exam: Present: normal inspection Neurological exam: Present: alert, oriented X3, CN II-XII intact Psychiatric exam: Present: normal affect, normal mood Skin exam: Present: warm, dry, intact, normal color. Absent: rash Course Vital Signs 09/28/16 09/28/16 09/28/16 15:57 16:38 17:01 Temperature 98.7 F Pulse Rate 116 H 101 H Respiratory 26 H 22 Rate Blood Pressure 163/115 188/108 O2 Sat by Pulse 98 97 Oximetry Medical Decision Making - Medical Decision Making This is a 61-year-old male presents emergency Department with chief complaint of vomiting, abdominal pain and concern for dehydration. He has been admitted multiple times for similar complaints. Patient received Reglan, Benadryl and Protonix and some morphine and emergency department. Patient also received 2 L of fluid. She is noted to have a elevated white blood count of 22,000, as well as increased creatinine of 2.2. The patient flatly all of his lab work on admission has been similar to this with elevated white count and the acute kidney injury. Injury instructions. Patient does have better blood work the following morning after receiving approximately 3 L of fluids. We discussed this case with Dr. Doran. Dr. Velazquez called Dr. Nava, patient's primary care physician. Dr. Nava recommends that the patient is comfortable we can hydrate the patient with 3 L of fluid and have her follow-up tomorrow morning in the office for repeat blood redrawn. Patient was reevaluated and is agreeable to this plan. Patient will be discharged after receiving 3 L of fluids. - Lab Data Result diagrams: 09/28/16 16:29 09/28/16 16:29 Lab Results 09/28/16 09/28/16 Range/Units 16:29 16:29 WBC 21.5 H (3.8-10.6) k/uL RBC 5.82 (4.30-5.90) m/uL Hgb 17.4 D (13.0-17.5) gm/dL Hct 49.8 (39.0-53.0) % MCV 85.6 (80.0-100.0) fL MCH 29.9 (25.0-35.0) pg MCHC 34.9 (31.0-37.0) g/dL RDW 13.8 (11.5-15.5) % Plt Count 409 (150-450) k/uL Neutrophils % 84 % Lymphocytes % 8 % Monocytes % 6 % Eosinophils % 0 % Basophils % 0 % Neutrophils # 18.1 H (1.3-7.7) k/uL Lymphocytes # 1.8 (1.0-4.8) k/uL Monocytes # 1.2 H (0-1.0) k/uL Eosinophils # 0.0 (0-0.7) k/uL Basophils # 0.1 (0-0.2) k/uL Sodium 145 (137-145) mmol/L Potassium 4.2 (3.5-5.1) mmol/L Chloride 103 (98-107) mmol/L Carbon Dioxide 16 L (22-30) mmol/L Anion Gap 26 mmol/L BUN 22 H (9-20) mg/dL Creatinine 2.20 H (0.66-1.25) mg/dL Est GFR (MDRD) Af Amer 37 (>60 ml/min/1.73 sqM) Est GFR (MDRD) Non-Af 30 (>60 ml/min/1.73 sqM) Glucose 121 H (74-99) mg/dL Calcium 12.3 H (8.4-10.2) mg/dL Total Bilirubin 1.0 (0.2-1.3) mg/dL AST 30 (17-59) U/L ALT 45 (21-72) U/L Alkaline Phosphatase 150 H (38-126) U/L Total Protein 9.5 H (6.3-8.2) g/dL Albumin 5.9 H (3.5-5.0) g/dL Amylase 62 (30-110) U/L Lipase 139 (23-300) U/L Disposition Clinical Impression: Leukocytosis, Dehydration, Vomiting Disposition: HOME SELF-CARE Condition: Good Instructions: Acute Nausea and Vomiting (ED) Additional Instructions: Patient advised to follow-up with primary care physician, patient needs to have blood work redrawn tomorrow morning at discretion of PCP. Patient is to return to the emergency department if any alarming signs or symptoms occur. Referrals: Miki Nava DO [Primary Care Provider] - 1-2 days Time of Disposition: 18:20
[2016-09-28] MEDS ORDERED: SODIUM CHLORIDE 0.9% 1,000 ML IV ONE (18:16)
[2016-09-28 19:21] VITALS: BP 163/95; PULSE 85; RESP 18; TEMP 98.1
== END 2016-09-28 19:21 | disposition home or self-care (01) ==
LOC: EC 15:48
DX: E86.0 Dehydration (principal); D72.829 Elevated white blood cell count, unspecified; I25.10 Atherosclerotic heart disease of native coronary artery without angina pectoris; I10 Essential (primary) hypertension; M19.90 Unspecified osteoarthritis, unspecified site; E07.9 Disorder of thyroid, unspecified; Z87.19 Personal history of other diseases of the digestive system; Z87.891 Personal history of nicotine dependence; Z90.49 Acquired absence of other specified parts of digestive tract; Z98.890 Other specified postprocedural states; Z88.8 Allergy status to other drugs, medicaments and biological substances; Z79.82 Long term (current) use of aspirin; Z79.899 Other long term (current) drug therapy
CPT/HCPCS: 36415; 80053; 82150; 83690; 85025; 99285; 96374; 96375 ×3; 96361 ×3; J1200; J2765; J2270; C9113

== ENCOUNTER 2016-09-29 11:41 | Day surgery (SDC) | payer MEDICARE ==
[2016-09-23 13:27] VITALS: BMI 30.5
[2016-09-29 09:21] VITALS: TEMP 98.8
[2016-09-29 11:12] VITALS: RESP 18
--- NOTE | 2016-09-29 11:17 | FL ---
EXAMINATION TYPE: FL guided pain mgmt statistic DATE OF EXAM: 09/29/2016 COMPARISON: NONE HISTORY: Back pain. TECHNIQUE: Fluoroscopy. FINDINGS/IMPRESSION: Fluoroscopic guidance was provided during procedure performed by Dr. Barger. A total of 14 seconds of fluoroscopic time was utilized during the procedure and 5 spot images was a cquired.
[2016-09-29 11:27] VITALS: BP 138/88; PULSE 78
[~2016-09-29 11:41] MED LIST changes: -DEXAMETHASONE SOD PHOSPHATE 10 MG/ML 1 ML VIAL IV ONE; +IV FLUID CONTINUATION 250 ML IV ONE; +LIDOCAINE 1% 20 ML VIAL (10MG/ML) FOR IV START INTRADERMA ONE; -MIDAZOLAM 2 MG/2 ML VIAL IV PRN; -ONDANSETRON 4 MG/2 ML VIAL IVP ONE; -ceFAZolin 2 GM in SODIUM CHLORIDE 0.9% 100 ML IVPB ONE
--- NOTE | 2016-09-29 20:30 | P.PCN ---
Date of Procedure: 09/29/16 Preoperative Diagnosis: Postoperative Diagnosis: Procedure(s) Performed: PREOPERATIVE DIAGNOSIS: 1-Lumbar Spondylosis with Facet Arthropathy without myelopathy. 2- Lumber degenerative disc disease POSTOPERATIVE DIAGNOSIS: 1- Lumbar Spondylosis with Facet Arthropathy without myelopathy. 2- Lumber degenerative disc disease PROCEDURES : Right Radiofrequency thermocoagulation, L2-3, L4-L5, and L5-S1 medial branch, with fluoroscopic guidance ( 3 Levels ) ANESTHESIA: IV sedation with versed 2 mg and fentaneyl 200 mcg and local infiltration with lidocaine 1% 6 ml EBL: Minimal PROCEDURE INDICATION: The patient with low back pain secondary to lumbar facet arthropathy who had more than 50% relief of her pain with previous diagnostic lumbar medial branch block with bupivacaine. PROCEDURE DESCRIPTION / TECHNIQUE: The patient was seen and identified in the preoperative area. Risks, benefits, complications, including but not limited to risk of infection ,bleeding , allergic reactions to the medications and no complete pain releife , and alternatives were discussed with the patient, the patient agreed to proceed with the procedure and signed the consent. IV was started. Vital signs remained stable throughout the procedure. Patient was taken to the OR and time out was completed. The patient was placed in the prone position on the procedure table. The lumber area was prepped and draped in the usual sterile fashion. . Vital signs were closely monitored during the procedure .IV sedation was used during the procedure to decrease patients anxiety. Using AP and then oblique fluoroscopy, the ``eye of the Saroj dog corresponding to the connection between the superior and transverse articular processes of right L2, L4, and L5 were identified, marked, and localized with 1 % lidocaine. Subsequently, a [id number] radiofrequency cannula with a 10- mm active tip was advanced guided by fluoroscopy to each of the ``eyes of the Saroj dog at right L2, L4, and L5. Each site then underwent sensory testing at 50 Hz and 0 to 1 volt and motor testing at 2.5 Hz and 0 to 3 volt with local stimulation, but no radicular symptoms down the legs. Thereafter the right L2-3, L4-5, and L5-S1 sites underwent radiofrequency thermocoagulation at 80 degrees celsius for 90 seconds after injecting 0.5 ml of PF lidocaine 1%. then After the thermocoagulation done , 1 ml of the block solution containing Kenalog 40 mg and 3 ml of marain 0.5% was injected at the right L2-3 , L4-5 , and L5-S1, levels after negative aspiration of CSF and blood and with no paresthesias. Cannulas were retracted while injecting lidocaine 1% until the needle is out. At the end of the procedure, the skin was cleansed and bandages were applied. COMPLICATIONS: No acute complications. DISPOSITION / PLANS: The patient was placed in a supine position and transferred to the recovery area in a stable condition for observation and was discharged from the recovery room after meeting discharge criteria. Home discharge instructions given to the patient by the staff. The patient was reexamined prior to discharge. The patient will schedule a follow up in the clinic in 2-4 weeks. Implants: Indications for Procedure: Operative Findings: Description of Procedure:
== END 2016-09-29 11:42 | disposition home or self-care (01) ==
LOC: ORPAIN 11:41
PROVIDERS: ATTEND Specialist
DX: M47.816 Spondylosis without myelopathy or radiculopathy, lumbar region (principal); M46.96 Unspecified inflammatory spondylopathy, lumbar region; M51.36 Other intervertebral disc degeneration, lumbar region; Z88.8 Allergy status to other drugs, medicaments and biological substances
CPT/HCPCS: 64635; 64636 ×2; 99152; J2250; J1100; J3010; 99153

== ENCOUNTER 2016-10-07 17:39 | Emergency (ER) | payer MEDICARE ==
[2016-10-07] MEDS ORDERED: FAMOTIDINE 20 MG/2 ML VIAL IV STA (17:51)
[2016-10-07] MEDS ORDERED: SODIUM CHLORIDE 0.9% 2,000 ML IV STA (17:51)
[2016-10-07] MEDS ORDERED: MORPHINE SULFATE 4 MG/ML SYRINGE IVP STA (17:51)
[2016-10-07] MEDS ORDERED: ONDANSETRON 4 MG/2 ML VIAL IVP STA (17:51)
--- NOTE | 2016-10-07 18:42 | ED ---
Nausea/Vomiting/Diarrhea HPI - General Chief complaint: Nausea/Vomiting/Diarrhea Stated complaint: Dehydration Time Seen by Provider: 10/07/16 17:50 Source: patient, RN notes reviewed Mode of arrival: wheelchair Limitations: no limitations - History of Present Illness Initial comments: 61-year-old male presents emergency Department with nausea vomiting with abdominal discomfort. Patient has recurrent episodes of nausea vomiting and has been seen emergency Department several times. Patient states she is scheduled see a specialist for this next week. Patient denies any fever or chills denies chest pain, shortness breath, headache, dizziness. Patient's diffuse abdominal discomfort and states that his been vomiting for the last few hours. She states is in the hospital last week. He denies any dysuria or hematuria. - Related Data Home Medications Medication Instructions Recorded Confirmed cloNIDine HCL [Clonidine HCl] 0.1 mg PO BID 11/16/15 10/07/16 Levothyroxine Sodium [Synthroid] 75 mcg PO DAILY 05/04/16 10/07/16 Omeprazole 20 mg PO DAILY 05/04/16 10/07/16 Amitriptyline HCl [Elavil] 50 mg PO HS 05/14/16 10/07/16 Dicyclomine [Bentyl] 20 mg PO AC-TID PRN 05/31/16 10/07/16 Losartan [Cozaar] 50 mg PO DAILY 05/31/16 10/07/16 Aspirin [Adult Low Dose Aspirin EC] 81 mg PO DAILY 06/24/16 10/07/16 Diphenoxylate HCl/Atropine 1 tab PO Q8H PRN 07/19/16 10/07/16 [Lomotil 2.5-0.025 mg Tablet] Nitroglycerin Sl Tabs [Nitrostat] 0.4 mg SUBLINGUAL Q5M PRN 07/19/16 10/07/16 Cholecalciferol [Vitamin D3] 1,000 unit PO DAILY 09/23/16 10/07/16 Ferrous Sulfate [Feosol] 325 mg PO DAILY 09/23/16 10/07/16 Escitalopram [Lexapro] 30 mg PO DAILY 10/07/16 10/07/16 Promethazine HCl 12.5 mg PO Q6H PRN 10/07/16 10/07/16 Previous Rx's Medication Instructions Recorded Ondansetron Odt [Zofran Odt] 4 mg PO Q8HR PRN #10 tab 09/10/16 Allergies Allergy/AdvReac Type Severity Reaction Status Date / Time Beta-Blockers Allergy Rash/Hives Verified 10/07/16 17:46 (Beta-Adrenergic Bloc paroxetine HCl [From Paxil] AdvReac Unknown Abdominal Verified 10/07/16 17:46 Pain Review of Systems ROS Statement: Those systems with pertinent positive or pertinent negative responses have been documented in the HPI. ROS Other: All systems not noted in ROS Statement are negative. Past Medical History Past Medical History: Coronary Artery Disease (CAD), Chest Pain / Angina, Hyperlipidemia, Hypertension, Myocardial Infarction ([place]), Musculoskeletal Disorder, Osteoarthritis (OA), Renal Disease, Thyroid Disorder Additional Past Medical History / Comment(s): lumbar sacral spinal stenosis, chronic low back pain with bilateral sciatica, pinched nerves in back, DIVERTICULITIS, IBS, bronchitis, migraines, numbness/tingling bilateral feet. Last Myocardial Infarction Date:: 2013 History of Any Multi-Drug Resistant Organisms: None Reported Past Surgical History: Back Surgery, Cholecystectomy, Heart Catheterization With Stent, Hernia Repair, Orthopedic Surgery Additional Past Surgical History / Comment(s): COLONOSCOPY, EGD, ORIF LT ANKLE. BACK SURGERIES L/S fusion L3-L5, LT HAND SURGERY, RT KNEE ARTHROSC, RT ELBOW SURG, LUMBAR SPINE CYST REMOVAL AT L2 IN 2013, HIATAL HERNIA REPAIR, right shoulder arthroscopy, back injections. Past Anesthesia/Blood Transfusion Reactions: No Reported Reaction Date of Last Stent Placement:: 2013 Past Psychological History: No Psychological Hx Reported Smoking Status: Former smoker Past Alcohol Use History: None Reported Past Drug Use History: Marijuana - Past Family History Mother Family Medical History: Thyroid Disorder Father Family Medical History: Diabetes Mellitus, Myocardial Infarction ([place]) Additional Family Medical History / Comment(s): TRIPLE BYPASS, [place] in his 50's or 60's. from MVA when he was in his 80's Sister(s) Family Medical History: Cancer, Thyroid Disorder Additional Family Medical History / Comment(s): SKIN CA General Exam Limitations: no limitations General appearance: alert, in no apparent distress Head exam: Present: atraumatic, normocephalic, normal inspection Eye exam: Present: normal appearance, PERRL, EOMI. Absent: scleral icterus, conjunctival injection, periorbital swelling ENT exam: Present: normal exam, normal oropharynx, mucous membranes dry Neck exam: Present: normal inspection, full ROM. Absent: tenderness, meningismus, lymphadenopathy Respiratory exam: Present: normal lung sounds bilaterally. Absent: respiratory distress, wheezes, rales, rhonchi, stridor Cardiovascular Exam: Present: normal rhythm, tachycardia, normal heart sounds. Absent: systolic murmur, diastolic murmur, rubs, gallop, clicks GI/Abdominal exam: Present: soft, tenderness (Diffuse mild), normal bowel sounds. Absent: distended, guarding, rebound, rigid Back exam: Absent: CVA tenderness (R), CVA tenderness (L) Skin exam: Present: warm, dry, intact, normal color. Absent: rash Course Vital Signs 10/07/16 10/07/16 10/07/16 17:44 18:47 19:25 Temperature 97 F L Pulse Rate 120 H 100 81 Respiratory 20 22 16 Rate Blood Pressure 164/110 166/105 150/96 O2 Sat by Pulse 98 98 99 Oximetry Medical Decision Making - Medical Decision Making 61-year-old male presented for nausea vomiting abdominal discomfort. Patient is feeling much improved after IV fluids, pain medication and antiemetics. Dr. Sherman discussed the case with Dr. Nava who recommended IV fluids and follow- up tomorrow. Patient does have acute renal failure, leukocytosis. Patient had recurrent episodes of this. Return parameters were discussed. - Lab Data Result diagrams: 10/07/16 18:29 10/07/16 18:29 Lab Results 10/07/16 10/07/16 Range/Units 18:29 18:29 WBC 19.4 H (3.8-10.6) k/uL RBC 6.17 H (4.30-5.90) m/uL Hgb 18.5 H D (13.0-17.5) gm/dL Hct 53.1 H (39.0-53.0) % MCV 86.1 (80.0-100.0) fL MCH 30.0 (25.0-35.0) pg MCHC 34.8 (31.0-37.0) g/dL RDW 13.8 (11.5-15.5) % Plt Count 439 (150-450) k/uL Neutrophils % 82 % Lymphocytes % 13 % Monocytes % 3 % Eosinophils % 1 % Basophils % 0 % Neutrophils # 16.0 H (1.3-7.7) k/uL Lymphocytes # 2.4 (1.0-4.8) k/uL Monocytes # 0.7 (0-1.0) k/uL Eosinophils # 0.1 (0-0.7) k/uL Basophils # 0.1 (0-0.2) k/uL Sodium 145 (137-145) mmol/L Potassium 5.0 (3.5-5.1) mmol/L Chloride 103 (98-107) mmol/L Carbon Dioxide 14 L (22-30) mmol/L Anion Gap 28 mmol/L BUN 15 (9-20) mg/dL Creatinine 2.27 H (0.66-1.25) mg/dL Est GFR (MDRD) Af Amer 36 (>60 ml/min/1.73 sqM) Est GFR (MDRD) Non-Af 29 (>60 ml/min/1.73 sqM) Glucose 183 H (74-99) mg/dL Calcium 12.5 H (8.4-10.2) mg/dL Total Bilirubin 1.0 (0.2-1.3) mg/dL AST 32 (17-59) U/L ALT 32 (21-72) U/L Alkaline Phosphatase 157 H (38-126) U/L Total Protein 10.3 H (6.3-8.2) g/dL Albumin >6.0 H (3.5-5.0) g/dL Amylase 70 (30-110) U/L Lipase 118 (23-300) U/L Disposition Clinical Impression: JOSIE (acute kidney injury), Nausea & vomiting, Leukocytosis, Dehydration, moderate Disposition: HOME SELF-CARE Condition: Stable Instructions: Acute Nausea and Vomiting (ED) Additional Instructions: Please return to the Emergency Department if symptoms worsen or any other concerns. Referrals: Miki Nava DO [Primary Care Provider] - 1-2 days Time of Disposition: 20:39
[2016-10-07] MEDS ORDERED: METOCLOPRAMIDE 5 MG/ML 2 ML VIAL IVP STA (18:52)
[2016-10-07 18:55] LABS: ALT 32 U/L (21-72); AST 32 U/L (17-59); Alkaline Phosphatase 157 U/L (38-126); Amylase 70 U/L (30-110); Anion Gap 28 mmol/L; Basophils # (A) 0.1 k/uL (0-0.2); Basophils % (A) 0 %; Blood Urea Nitrogen 15 mg/dL (9-20); CH 30.7; CHCM 35.8; Calcium 12.5 mg/dL (8.4-10.2); Carbon Dioxide 14 mmol/L (22-30); Chloride 103 mmol/L (98-107); Eosinophils # (A) 0.1 k/uL (0-0.7); Eosinophils % (A) 1 %; Glucose 183 mg/dL (74-99); HCT 53.1 % (39.0-53.0); HDW 2.89; Luc # (Auto) 0.19; Luc % (Auto) 1; Lymphocytes # (A) 2.4 k/uL (1.0-4.8); Lymphocytes % (A) 13 %; MCHC 34.8 g/dL (31.0-37.0); MCV 86.1 fL (80.0-100.0); Mean Platelet Volume 7.3; Monocytes # (A) 0.7 k/uL (0-1.0); Monocytes % (A) 3 %; Neutrophils % (A) 82 %; Non-African American GFR(MDRD) 29 (>60 ml/min/1.73 sqM); RBC 6.17 m/uL (4.30-5.90); RDW 13.8 % (11.5-15.5); Sodium 145 mmol/L (137-145); WBC 19.4 k/uL (3.8-10.6); WBC (Perox) 20.63
[2016-10-07 19:02] LABS: HGB 18.5 gm/dL (13.0-17.5)
[2016-10-07 19:04] LABS: Total Protein 10.3 g/dL (6.3-8.2)
[2016-10-07] MEDS: MORPHINE SULFATE 2 MG/ML SYRINGE IVP ONE ×2 (19:28→19:39)
[2016-10-07] MEDS ORDERED: MORPHINE SULFATE 2 MG/ML SYRINGE IVP ONE (19:39)
[2016-10-07] MEDS ORDERED: SODIUM CHLORIDE 0.9% 1,000 ML IV ONE (20:01)
[2016-10-07 20:48] VITALS: BP 135/85; PULSE 88; RESP 18; TEMP 98.3
== END 2016-10-07 21:47 | disposition home or self-care (01) ==
LOC: EC 17:39
DX: N17.9 Acute kidney failure, unspecified (principal); D72.829 Elevated white blood cell count, unspecified; E86.0 Dehydration; E07.9 Disorder of thyroid, unspecified; I25.10 Atherosclerotic heart disease of native coronary artery without angina pectoris; I25.2 Old myocardial infarction; Z90.49 Acquired absence of other specified parts of digestive tract; Z87.891 Personal history of nicotine dependence; Z95.5 Presence of coronary angioplasty implant and graft; Z79.82 Long term (current) use of aspirin; Z88.8 Allergy status to other drugs, medicaments and biological substances; Z53.8 Procedure and treatment not carried out for other reasons
CPT/HCPCS: 36415; 80053; 82150; 83690; 85025; 99284; 96374; 96375 ×3; 96376; 96361 ×3; J2270 ×2; J2765; J2405

== ENCOUNTER 2016-10-09 21:11 | Inpatient (IN) | payer MEDICARE ==
[2016-10-09] MEDS ORDERED: SODIUM CHLORIDE 0.9% 1,000 ML IV STA ×2 (21:37)
[2016-10-09] MEDS ORDERED: ONDANSETRON 4 MG/2 ML VIAL IVP STA (21:37)
--- NOTE | 2016-10-09 21:41 | ED ---
General Adult HPI - General Chief complaint: Nausea/Vomiting/Diarrhea Stated complaint: Nause/Vomiting/Cramping Time Seen by Provider: 10/09/16 21:31 Source: patient, RN notes reviewed, old records reviewed Mode of arrival: ambulatory Limitations: no limitations - History of Present Illness Initial comments: 61-year-old male with history of chronic nausea and vomiting presents with nausea vomiting for the past 24 hours. Patient states he vomited 6 times today. He does have a history of repeated episodes of nausea vomiting, kidney injury, dehydration. Denies abdominal pain at this time. States he did have some crampy abdominal pain earlier in the day which is resolved. Patient is not unable to tolerate anything by mouth for the last 12 hours. Denies any change in his bowels. No diarrhea. No fever. No chest pain or shortness of breath. Patient is not currently on any opiates, he states in the past he was on prescription opiates, he's been off these for approximately one year. - Related Data Home Medications Medication Instructions Recorded Confirmed cloNIDine HCL [Clonidine HCl] 0.1 mg PO BID 11/16/15 10/09/16 Levothyroxine Sodium [Synthroid] 75 mcg PO DAILY 05/04/16 10/09/16 Omeprazole 20 mg PO DAILY 05/04/16 10/09/16 Amitriptyline HCl [Elavil] 50 mg PO HS 05/14/16 10/09/16 Dicyclomine [Bentyl] 20 mg PO AC-TID PRN 05/31/16 10/09/16 Losartan [Cozaar] 50 mg PO DAILY 05/31/16 10/09/16 Aspirin [Adult Low Dose Aspirin EC] 81 mg PO DAILY 06/24/16 10/09/16 Diphenoxylate HCl/Atropine 1 tab PO Q8H PRN 07/19/16 10/09/16 [Lomotil 2.5-0.025 mg Tablet] Nitroglycerin Sl Tabs [Nitrostat] 0.4 mg SUBLINGUAL Q5M PRN 07/19/16 10/09/16 Cholecalciferol [Vitamin D3] 1,000 unit PO DAILY 09/23/16 10/09/16 Ferrous Sulfate [Feosol] 325 mg PO DAILY 09/23/16 10/09/16 Escitalopram [Lexapro] 30 mg PO DAILY 10/07/16 10/09/16 Promethazine HCl 12.5 mg PO Q6H PRN 10/07/16 10/09/16 Previous Rx's Medication Instructions Recorded Ondansetron Odt [Zofran Odt] 4 mg PO Q8HR PRN #10 tab 09/10/16 Allergies Allergy/AdvReac Type Severity Reaction Status Date / Time Beta-Blockers Allergy Rash/Hives Verified 10/09/16 21:23 (Beta-Adrenergic Bloc paroxetine HCl [From Paxil] AdvReac Unknown Abdominal Verified 10/09/16 21:23 Pain Review of Systems ROS Statement: Those systems with pertinent positive or pertinent negative responses have been documented in the HPI. ROS Other: All systems not noted in ROS Statement are negative. Past Medical History Past Medical History: Coronary Artery Disease (CAD), Chest Pain / Angina, Hyperlipidemia, Hypertension, Myocardial Infarction (CA), Musculoskeletal Disorder, Osteoarthritis (OA), Renal Disease, Thyroid Disorder Additional Past Medical History / Comment(s): lumbar sacral spinal stenosis, chronic low back pain with bilateral sciatica, pinched nerves in back, DIVERTICULITIS, IBS, bronchitis, migraines, numbness/tingling bilateral feet. Last Myocardial Infarction Date:: 2013 History of Any Multi-Drug Resistant Organisms: None Reported Past Surgical History: Back Surgery, Cholecystectomy, Heart Catheterization With Stent, Hernia Repair, Orthopedic Surgery Additional Past Surgical History / Comment(s): COLONOSCOPY, EGD, ORIF LT ANKLE. BACK SURGERIES L/S fusion L3-L5, LT HAND SURGERY, RT KNEE ARTHROSC, RT ELBOW SURG, LUMBAR SPINE CYST REMOVAL AT L2 IN 2013, HIATAL HERNIA REPAIR, right shoulder arthroscopy, back injections. Past Anesthesia/Blood Transfusion Reactions: No Reported Reaction Date of Last Stent Placement:: 2013 Past Psychological History: No Psychological Hx Reported Smoking Status: Former smoker Past Alcohol Use History: None Reported Past Drug Use History: Marijuana - Past Family History Mother Family Medical History: Thyroid Disorder Father Family Medical History: Diabetes Mellitus, Myocardial Infarction (CA) Additional Family Medical History / Comment(s): TRIPLE BYPASS, CA in his 50's or 60's. from MVA when he was in his 80's Sister(s) Family Medical History: Cancer, Thyroid Disorder Additional Family Medical History / Comment(s): SKIN CA General Exam Limitations: no limitations General appearance: alert, in no apparent distress Head exam: Present: atraumatic, normocephalic Eye exam: Present: normal appearance, PERRL ENT exam: Present: normal exam, mucous membranes dry Neck exam: Present: normal inspection. Absent: tenderness, meningismus Respiratory exam: Present: normal lung sounds bilaterally. Absent: respiratory distress, wheezes Cardiovascular Exam: Present: normal rhythm, tachycardia GI/Abdominal exam: Present: soft, normal bowel sounds. Absent: distended, tenderness, guarding Extremities exam: Present: normal inspection, full ROM, normal capillary refill. Absent: pedal edema Neurological exam: Present: alert, oriented X3, CN II-XII intact. Absent: motor sensory deficit Psychiatric exam: Present: normal affect, normal mood Skin exam: Present: warm, dry, intact. Absent: cyanosis, diaphoretic Course Vital Signs 10/09/16 21:20 Temperature 97 F L Pulse Rate 112 H Respiratory 20 Rate Blood Pressure 179/103 O2 Sat by Pulse 96 Oximetry - Reevaluation(s) Reevaluation #1: 10/09/16 22:38 I reevaluation, patient is having persistent nausea and vomiting. Medical Decision Making - Medical Decision Making 61-year-old male presenting with nausea and vomiting. Patient does have chronic history of vomiting with unknown exact cause. X-rays obtained, negative for obstruction. Laboratory studies reveal a white blood cell count 15.4 which is likely reactive, hemoglobin is 17.9 secondary to concentration and dehydration. Creatinine 2.1 elevated from baseline of 1. Lactic acid is 3.9. Patient received 2 L IV bolus in the emergency department. On reevaluation. He is still having significant vomiting. He is given additional antiemetics. He will be admitted for rehydration and repeat laboratory studies. Diagnosis: Acute kidney injury, dehydration, lactic acidosis - Lab Data Result diagrams: 10/09/16 21:50 10/09/16 21:50 Lab Results 10/09/16 10/09/16 10/09/16 Range/Units 21:50 21:50 21:50 WBC 15.4 H (3.8-10.6) k/uL RBC 5.92 H (4.30-5.90) m/uL Hgb 17.9 H (13.0-17.5) gm/dL Hct 50.7 (39.0-53.0) % MCV 85.6 (80.0-100.0) fL MCH 30.2 (25.0-35.0) pg MCHC 35.3 (31.0-37.0) g/dL RDW 13.8 (11.5-15.5) % Plt Count 361 (150-450) k/uL Neutrophils % 84 % Lymphocytes % 10 % Monocytes % 5 % Eosinophils % 0 % Basophils % 0 % Neutrophils # 13.0 H (1.3-7.7) k/uL Lymphocytes # 1.5 (1.0-4.8) k/uL Monocytes # 0.7 (0-1.0) k/uL Eosinophils # 0.1 (0-0.7) k/uL Basophils # 0.0 (0-0.2) k/uL Sodium 138 (137-145) mmol/L Potassium 4.6 (3.5-5.1) mmol/L Chloride 96 L (98-107) mmol/L Carbon Dioxide 19 L (22-30) mmol/L Anion Gap 23 mmol/L BUN 25 H (9-20) mg/dL Creatinine 2.10 H (0.66-1.25) mg/dL Est GFR (MDRD) Af Amer 39 (>60 ml/min/1.73 sqM) Est GFR (MDRD) Non-Af 32 (>60 ml/min/1.73 sqM) Glucose 115 H (74-99) mg/dL Plasma Lactic Acid Chacorta 3.9 H* (0.7-2.0) mmol/L Calcium 12.3 H (8.4-10.2) mg/dL Total Bilirubin 1.3 (0.2-1.3) mg/dL AST 31 (17-59) U/L ALT 51 (21-72) U/L Alkaline Phosphatase 143 H (38-126) U/L Total Protein 10.0 H (6.3-8.2) g/dL Albumin >6.0 H (3.5-5.0) g/dL Lipase 127 (23-300) U/L Disposition Clinical Impression: Lactic acidosis, Dehydration, Acute kidney injury (nontraumatic) Disposition: ADMITTED IP TO THIS [facility] Condition: Stable Referrals: Miki Nava DO [Primary Care Provider] - 1-2 days Decision to Admit Reason: Admit from EC Decision Date: 10/09/16 Decision Time: 22:40
[2016-10-09 22:11] LABS: Basophils % (A) 0 %; CHCM 36.4; Eosinophils # (A) 0.1 k/uL (0-0.7); Eosinophils % (A) 0 %; HCT 50.7 % (39.0-53.0); HGB 17.9 gm/dL (13.0-17.5); Luc # (Auto) 0.14; Luc % (Auto) 1; Lymphocytes # (A) 1.5 k/uL (1.0-4.8); Lymphocytes % (A) 10 %; MCH 30.2 pg (25.0-35.0); MCHC 35.3 g/dL (31.0-37.0); MCV 85.6 fL (80.0-100.0); Monocytes # (A) 0.7 k/uL (0-1.0); Monocytes % (A) 5 %; Neutrophils % (A) 84 %; RBC 5.92 m/uL (4.30-5.90); RDW 13.8 % (11.5-15.5); WBC 15.4 k/uL (3.8-10.6); WBC (Perox) 15.78
[2016-10-09 22:17] LABS: Calcium 12.3 mg/dL (8.4-10.2); Potassium 4.6 mmol/L (3.5-5.1); Total Bilirubin 1.3 mg/dL (0.2-1.3)
--- NOTE | 2016-10-09 22:19 | XR ---
EXAM: XR Abdomen, 1 View CLINICAL HISTORY: Vomiting and abdominal pain. TECHNIQUE: Frontal supine view of the abdomen/pelvis. COMPARISON: 09/05/2016. FINDINGS: Gastrointestinal tract: Mild mucosal thickening of a few small bowel loops is suggested, likely representing enteritis. No definitive evidence of free air. No dilation. Bones/joints: Postsurgical changes are again seen involving the lower lumbar spine. Mild degenerative changes involving both hips. Degenerative changes of the lumbar spine are unchanged. Soft tissues: Surgical clips are again seen in the right upper quadrant, consistent with cholecystectomy. IMPRESSION: Mild mucosal thickening of a few small bowel loops, likely representing infectious versus inflammatory enteritis. No evidence of obstruction. Clinical correlation recommended.
[2016-10-09] MEDS ORDERED: SODIUM CHLORIDE 0.9% 1,000 ML IV ONE (22:26)
[2016-10-09] MEDS ORDERED: HYDROmorphone 1 MG/ML 1 ML SYRINGE IVP STA (22:28)
[2016-10-09] MEDS ORDERED: METOCLOPRAMIDE 5 MG/ML 2 ML VIAL IVP STA (22:28)
[2016-10-09] MEDS ORDERED: NALOXONE 0.4 MG/ML 1 ML VIAL IV PRN (22:34)
[2016-10-09] MEDS ORDERED: ONDANSETRON 4 MG/2 ML VIAL IVP PRN (22:34)
[2016-10-09] MEDS ORDERED: cloNIDine HCL 0.1 MG TAB PO STA (23:43)
[2016-10-09 23:55] VITALS: BMI 30.2
--- NOTE | 2016-10-10 00:42 | XR ---
EXAM: XR Chest, 1 View CLINICAL HISTORY: Congestive heart failure TECHNIQUE: Frontal view of the chest. COMPARISON: 09/20/2016 FINDINGS: Lungs: Unremarkable. No consolidation. Pleural space: Unremarkable. No pneumothorax. Heart: Stable cardiomediastinal silhouette. Mediastinum: See above. Bones/joints: No acute osseous abnormality. Tubes, lines and devices: Telemetry leads overlie the patient. IMPRESSION: No acute cardiopulmonary process.
[2016-10-10] MEDS ORDERED: ONDANSETRON ODT 4 MG TAB PO PRN (00:48)
[2016-10-10] MEDS ORDERED: DICYCLOMINE 20 MG TAB PO PRN (00:48)
[2016-10-10] MEDS ORDERED: NITROGLYCERIN SL TABS 0.4 MG TAB SUBLINGUAL PRN (00:48)
[2016-10-10] MEDS ORDERED: hydrALAZINE HCL 20 MG/ML 1 ML VIAL IVP PRN (00:49)
[2016-10-10] MEDS ORDERED: cloNIDine HCL 0.1 MG TAB PO PRN (00:49)
[2016-10-10 00:55] LABS: Amorphous Sediment,Urine Rare /hpf; Appearance,Urine Clear (Clear); Bilirubin,Urine Negative (Negative); Glucose,Urine (UA) Negative (Negative); Ketones,Urine Negative (Negative); Leukocyte Esterase,Urine Negative (Negative); Mucus,Urine Rare /hpf; Nitrite,Urine Negative (Negative); PH, Urine 5.5 (5.0-8.0); Particle Count 5784; Protein,Urine 1+ (Negative); RBC,Urine 1 /hpf (0-5); Specific Gravity,Urine 1.005 (1.001-1.035); Squamous Epithelial Cell,Urine <1 /hpf (0-4); UA Billing (MACRO vs. MICRO) MICRO; Urobilinogen,Urine <2.0 mg/dL (<2.0); WBC,Urine 6 /hpf (0-5)
[2016-10-10] MEDS: SODIUM CHLORIDE 0.9% 1,000 ML IV SCH ×4 (01:18→17:18)
[2016-10-10] MEDS: HYDROmorphone 1 MG/ML 1 ML SYRINGE IV PRN ×7 (01:48→22:53)
[2016-10-10 06:35] LABS: Basophils % (A) 0 %; CH 30.6; CHCM 35.7; Eosinophils # (A) 0.1 k/uL (0-0.7); Eosinophils % (A) 1 %; HCT 37.8 % (39.0-53.0); HDW 2.78; Luc # (Auto) 0.22; Luc % (Auto) 2; Lymphocytes # (A) 2.7 k/uL (1.0-4.8); Lymphocytes % (A) 23 %; MCH 31.1 pg (25.0-35.0); MCHC 36.2 g/dL (31.0-37.0); Mean Platelet Volume 6.7; Monocytes # (A) 0.6 k/uL (0-1.0); Monocytes % (A) 5 %; Neutrophils # (A) 8.2 k/uL (1.3-7.7); Neutrophils % (A) 70 %; RDW 13.9 % (11.5-15.5); WBC 11.9 k/uL (3.8-10.6); WBC (Perox) 12.86
[2016-10-10 06:38] LABS: HGB 13.7 gm/dL (13.0-17.5)
[2016-10-10 06:44] LABS: ALT 33 U/L (21-72); AST 23 U/L (17-59); Alkaline Phosphatase 82 U/L (38-126); Anion Gap 10 mmol/L; Blood Urea Nitrogen 24 mg/dL (9-20); Carbon Dioxide 23 mmol/L (22-30); Chloride 104 mmol/L (98-107); Glucose 98 mg/dL (74-99); Non-African American GFR(MDRD) 51 (>60 ml/min/1.73 sqM); Potassium 4.4 mmol/L (3.5-5.1); Sodium 137 mmol/L (137-145); Total Bilirubin 0.9 mg/dL (0.2-1.3); Total Protein 6.6 g/dL (6.3-8.2)
[2016-10-10] MEDS: ASPIRIN 81 MG CHEW PO SCH (08:26)
[2016-10-10] MEDS: cloNIDine HCL 0.1 MG TAB PO SCH ×2 (08:26→20:59)
[2016-10-10] MEDS ORDERED: ESCITALOPRAM 10 MG TAB PO SCH (09:00)
[2016-10-10] MEDS ORDERED: NON-FORMULARY DRUG (Omeprazole [Omeprazole] 20 MG) PO SCH (09:00)
[2016-10-10] MEDS ORDERED: LOSARTAN 50 MG TAB PO SCH (09:00)
--- NOTE | 2016-10-10 09:30 | HP ---
HISTORY AND PHYSICAL I am covering for Dr. Miki Nava. DATE OF SERVICE: 10/09/2016. CHIEF COMPLAINT: Nausea, vomiting and renal failure. HISTORY OF PRESENT ILLNESS: This 61-year-old gentleman with a past medical history of CAD, hypertension, hyperlipidemia, history of renal failure, history of irritable bowel syndrome, recurrent nausea and vomiting, being followed by Dr. Nava in the outpatient setting, had episodes of upper abdominal cramping and repeated episodes of vomiting. Today the patient came to [facility]. Creatinine was elevated. The patient was found to be dehydrated. IV fluids were given at 150 mL/hour. There is no history of fever or rigors. No history of headache, loss of consciousness or seizures. PAST MEDICAL HISTORY: Hypertension, hyperlipidemia, myocardial infarction, history of CAD. MEDICATIONS: 1. Clonidine 0.1 p.o. b.i.d. 2. Promethazine 12.5 every 6 hours as needed. 3. Zofran 4 mg every 8 hours. 4. Omeprazole 20 mg p.o. daily. 5. Nitrostat 0.4 sublingual p.r.n. 6. Cozaar 50 mg daily. 7. Synthroid 100 mcg p.o. daily. 8. Iron sulfate 320 mg p.o. daily. 9. Lexapro 30 mg p.o. daily. 10.Lomotil 1 tab every 8 hours p.r.n. 11.Bentyl 20 mg t.i.d. p.r.n. 12.Vitamin D 3000 daily. 13.Aspirin 81 mg. 14.Elavil 50 mg p.o. at bedtime. ALLERGIES: Beta blockers, Paxil. FAMILY HISTORY: History of diabetes, myocardial infarction and CABG. SOCIAL HISTORY: History of THC use. Previous history of smoking. REVIEW OF SYSTEMS: ENT: No diminished hearing or vision. CARDIOVASCULAR: None. GI: As mentioned earlier. RESPIRATORY: No cough or hemoptysis. : As mentioned earlier. NERVOUS SYSTEM: No numbness or weakness. ALLERGY/IMMUNOLOGY: No asthma or hay fever. MUSCULOSKELETAL: As mentioned earlier. HEMATOLOGY: No history of anemia. ENDOCRINE: Hypothyroidism. CONSTITUTIONAL: As mentioned. HEMATOLOGY: Negative. DERMATOLOGY: Negative. PSYCHIATRY: As mentioned. PHYSICAL EXAMINATION: GENERAL: Alert, oriented x3. VITAL SIGNS: Pulse is 93, blood pressure 154/94, respirations 18, temperature 98.4, pulse ox 98% on room air. HEENT: HEENT: Conjunctivae normal. Oral mucosa is dry. NECK: No JVD. No carotid bruits. No lymph node enlargement. CARDIOVASCULAR SYSTEM: S1, S2. No murmur. No S3. No rhonchi at the bases. Few rhonchi. No crackles. ABDOMEN: Soft, nontender. No mass palpable. No ascites. EXTREMITIES: Legs no edema. NERVOUS SYSTEMS: Higher functions as mentioned. Moves all four limbs. No focal motor or sensory deficits. LYMPHATICS: No lymph nodes palpable in the neck or axilla. SKIN: No rashes. LAB DATA: WBC 15, hemoglobin 17.9, creatinine 2.10. Other labs are noted. ASSESSMENT: 1. Dehydration with acute renal failure. Possible acute tubular necrosis. Prerenal factors. 2. Increased WBC of undetermined etiology. 3. Vomiting. Possible acute gastritis. 4. History of irritable bowel syndrome. 5. History of coronary artery disease. 6. History of hypertension. 7. Gastroesophageal reflux disease. 8. Chronic opiate use and abuse per chart. RECOMMENDATIONS AND DISCUSSION: In this 61-year-old gentleman who presented with multiple complex medical issues, we will monitor patient closely. Also recommend UA with micro and urine drug screen also. Otherwise continue with IV fluids. Resume the rest of the medications. Hold Cozaar for now. Guarded prognosis because of multiple complex medical issues. Further recommendations to follow. The patient is followed by Dr. Nava in the outpatient setting. I would recommend close followup with Dr. Nava in the outpatient setting as well. Discussed with the patient who understands. Further recommendations to follow. MMODL / IJN: [id number] /
[2016-10-10] MEDS: LEVOTHYROXINE 75 MCG TAB PO SCH (10:04)
[2016-10-10] MEDS: PANTOPRAZOLE 40 MG/10 ML VIAL IV SCH (10:05)
[2016-10-10 15:30] LABS: Appearance,Urine Clear (Clear); Bilirubin,Urine Negative (Negative); Glucose,Urine (UA) Negative (Negative); Ketones,Urine Negative (Negative); Leukocyte Esterase,Urine Negative (Negative); Nitrite,Urine Negative (Negative); PH, Urine 5.5 (5.0-8.0); Protein,Urine Negative (Negative); Specific Gravity,Urine 1.004 (1.001-1.035); UA Billing (MACRO vs. MICRO) CHEM; Urobilinogen,Urine <2.0 mg/dL (<2.0)
[2016-10-10] MEDS ORDERED: ESCITALOPRAM 20 MG TAB PO SCH (19:12)
[2016-10-10] MEDS ORDERED: AMITRIPTYLINE HCL 50 MG TAB PO SCH (21:00)
--- NOTE | 2016-10-10 21:18 | PN ---
PROGRESS NOTE I am covering for Dr. Nava. DATE OF SERVICE: 10/10/2016 This is a progress note. This 61-year-old gentleman who was admitted with acute renal failure. He is being closely monitored. The creatinine is improved to 1.4 and after IV fluids, plasma lactic acid also improved. No chest pain. No palpitations. No fever. EXAM: Alert and oriented times three. Pulse 86, blood pressure 140/88, respiration 17, temperature 98.2, pulse ox 94% room air. HEENT: Conjunctivae normal. Neck: No jugular venous distention. Cardiovascular: S1, S2 muffled. Respiratory: Breath sounds diminished in the bases. Bilateral scattered rhonchi. No crackles. ABDOMEN: Soft, nontender. Legs no edema. central nervous system: No focal deficits. LABS: WBC 11.9, and creatinine is 1.4, BUN is 24. ASSESSMENT: 1. Dehydration with acute renal failure. Possible acute tubular necrosis. Prerenal factors. 2. Increased WBC, of indeterminate etiology. 3. Vomiting possible acute gastritis. 4. History of irritable bowel syndrome. 5. History of coronary artery disease. 6. History of hypertension. 7. Gastroesophageal reflux disease. 8. Chronic opiate use and abuse per chart. Recommend to continue current medications. Continue symptomatic treatment. Otherwise at this time I would recommend to continue with IV fluids. Symptomatic treatment. Monitor creatinine closely. Guarded prognosis because of multiple complex medical issues. Further recommendations to follow. MMARNAVL / MAURO: [id number] /
[2016-10-11] MEDS: HYDROmorphone 1 MG/ML 1 ML SYRINGE IV PRN ×4 (01:53→11:49)
[2016-10-11 07:13] LABS: Basophils # (A) 0.1 k/uL (0-0.2); Basophils % (A) 1 %; CH 30.5; CHCM 34.8; Eosinophils # (A) 0.1 k/uL (0-0.7); Eosinophils % (A) 1 %; HCT 39.2 % (39.0-53.0); HDW 2.77; HGB 13.7 gm/dL (13.0-17.5); Luc # (Auto) 0.26; Luc % (Auto) 3; Lymphocytes # (A) 3.2 k/uL (1.0-4.8); Lymphocytes % (A) 34 %; MCH 30.7 pg (25.0-35.0); MCHC 34.9 g/dL (31.0-37.0); MCV 87.8 fL (80.0-100.0); Monocytes # (A) 0.6 k/uL (0-1.0); Monocytes % (A) 6 %; Neutrophils # (A) 5.3 k/uL (1.3-7.7); Neutrophils % (A) 56 %; RBC 4.46 m/uL (4.30-5.90); RDW 13.8 % (11.5-15.5); WBC 9.5 k/uL (3.8-10.6); WBC (Perox) 9.98
[2016-10-11 07:36] LABS: Anion Gap 9 mmol/L; Blood Urea Nitrogen 14 mg/dL (9-20); Calcium 9.6 mg/dL (8.4-10.2); Carbon Dioxide 27 mmol/L (22-30); Chloride 102 mmol/L (98-107); Glucose 85 mg/dL (74-99); Non-African American GFR(MDRD) >60 (>60 ml/min/1.73 sqM); Potassium 4.9 mmol/L (3.5-5.1); Sodium 138 mmol/L (137-145)
[2016-10-11 08:26] VITALS: BP 156/92; PULSE 77; RESP 18; TEMP 98.9
[2016-10-11] MEDS: SODIUM CHLORIDE 0.9% 1,000 ML IV SCH ×2 (08:51→11:01)
[2016-10-11] MEDS: PANTOPRAZOLE 40 MG/10 ML VIAL IV SCH (08:52)
[2016-10-11] MEDS: LEVOTHYROXINE 75 MCG TAB PO SCH (08:52)
[2016-10-11] MEDS: cloNIDine HCL 0.1 MG TAB PO SCH (08:52)
[2016-10-11] MEDS: ASPIRIN 81 MG CHEW PO SCH (08:52)
[2016-10-11] MEDS ORDERED: LEVOTHYROXINE 75 MCG TAB PO SCH (08:57)
--- NOTE | 2016-10-12 00:46 | P.DS ---
Providers Date of admission: 10/09/16 22:36 Attending physician: Miki Nava Primary care physician: Miki Nava [place] [facility] Course: This 67-year-old gentleman who is being followed by Dr. Nava in the outpatient setting was admitted with the nausea abdominal pain and dehydration. He is noted features of acute renal failure. Treated with IV fluids. Patient possibly had acute tubular necrosis due to prerenal factors. Patient improved significantly. WBC was increased improved. On exam vitals stable. S1-S2 normal. Chest clear to auscultation. Abdomen soft nontender. Creatinine normalized. The patient will be discharged in a stable condition with guarded prognosis to follow-up with Dr. Nava in the outpatient setting with labs. Final diagnosis 1. Dehydration with acute renal failure possibly acute tubular necrosis and prerenal factors. Improved. 2. Increased WBC of undetermined etiology. 3. Vomiting possible acute gastritis improved 4. History of irritable bowel syndrome. 5. History of CAD. 6. History of hypertension 7. GERD 8. Chronic opiate use and abuse per chart Patient Condition at Discharge: Stable Plan - Discharge Summary New Discharge Prescriptions: Continue cloNIDine HCL [Clonidine HCl] 0.1 mg PO BID Levothyroxine Sodium [Synthroid] 75 mcg PO DAILY Omeprazole 20 mg PO DAILY Amitriptyline HCl [Elavil] 50 mg PO HS Losartan [Cozaar] 50 mg PO DAILY Dicyclomine [Bentyl] 20 mg PO AC-TID PRN PRN Reason: Abdominal Cramping Aspirin [Adult Low Dose Aspirin EC] 81 mg PO DAILY Nitroglycerin Sl Tabs [Nitrostat] 0.4 mg SUBLINGUAL Q5M PRN PRN Reason: Chest Pain Diphenoxylate HCl/Atropine [Lomotil 2.5-0.025 mg Tablet] 1 tab PO Q8H PRN PRN Reason: Diarrhea Ondansetron Odt [Zofran ODT] 4 mg PO Q8HR PRN #10 tab PRN Reason: Nausea Ferrous Sulfate [Iron (65 MG Elemental)] 325 mg PO DAILY Cholecalciferol [Vitamin D3] 1,000 unit PO DAILY Escitalopram [Lexapro] 30 mg PO DAILY Promethazine HCl 12.5 mg PO Q6H PRN PRN Reason: Nausea Discharge Medication List cloNIDine HCL [Clonidine HCl] 0.1 mg PO BID 11/16/15 [History] Levothyroxine Sodium [Synthroid] 75 mcg PO DAILY 05/04/16 [History] Omeprazole 20 mg PO DAILY 05/04/16 [History] Amitriptyline HCl [Elavil] 50 mg PO HS 05/14/16 [History] Dicyclomine [Bentyl] 20 mg PO AC-TID PRN 05/31/16 [History] Losartan [Cozaar] 50 mg PO DAILY 05/31/16 [History] Aspirin [Adult Low Dose Aspirin EC] 81 mg PO DAILY 06/24/16 [History] Diphenoxylate HCl/Atropine [Lomotil 2.5-0.025 mg Tablet] 1 tab PO Q8H PRN [History] Nitroglycerin Sl Tabs [Nitrostat] 0.4 mg SUBLINGUAL Q5M PRN 07/19/16 [History] Ondansetron Odt [Zofran ODT] 4 mg PO Q8HR PRN #10 tab 09/10/16 [Rx] Cholecalciferol [Vitamin D3] 1,000 unit PO DAILY 09/23/16 [History] Ferrous Sulfate [Iron (65 MG Elemental)] 325 mg PO DAILY 09/23/16 [History] Escitalopram [Lexapro] 30 mg PO DAILY 10/07/16 [History] Promethazine HCl 12.5 mg PO Q6H PRN 10/07/16 [History] Follow up Appointment(s)/Referral(s): Miki Nava DO [Primary Care Provider] - 1-2 days (Patient to call Dr. Nava's office Tuesday morning to schedule follow up appointment. The office is closed at time of discharge.) Ambulatory/Diagnostic Orders: Complete Blood Count w/diff [LAB.AMB] Location: Determined By Patient Patient Instructions/Handouts: Dehydration (DC), Acute Kidney Injury (DC), Lactic Acidosis (GEN) Activity/Diet/Wound Care/Special Instructions: diet soft bland act as tolerated Discharge Disposition: HOME SELF-CARE
== END 2016-10-11 12:45 | disposition home or self-care (01) | DRG 683 ==
LOC: EC 21:11 → OBSVTOIN 22:36 → 6SEL 22:36 → 5MS5E 10-10 18:45
PROVIDERS: ADMIT Family Medicine; ATTEND Family Medicine
DX: N17.0 Acute kidney failure with tubular necrosis (principal); E87.2 Acidosis; K29.00 Acute gastritis without bleeding; E78.5 Hyperlipidemia, unspecified; E86.0 Dehydration; I10 Essential (primary) hypertension; I25.10 Atherosclerotic heart disease of native coronary artery without angina pectoris; I25.2 Old myocardial infarction; K21.9 Gastro-esophageal reflux disease without esophagitis; K58.0 Irritable bowel syndrome with diarrhea; Z79.82 Long term (current) use of aspirin; Z79.891 Long term (current) use of opiate analgesic; Z79.899 Other long term (current) drug therapy; Z82.49 Family history of ischemic heart disease and other diseases of the circulatory system; Z83.3 Family history of diabetes mellitus; Z87.891 Personal history of nicotine dependence
CPT/HCPCS: 36415; 71010; 74000; 80048; 80053; 80306; 81001; 81003; 83605; 83690; 85025; 96361; 96374; 96375; 99285

== ENCOUNTER 2016-10-18 16:29 | Emergency (ER) | payer MEDICARE ==
[2016-10-18] MEDS ORDERED: SODIUM CHLORIDE 0.9% 1,000 ML IV STA ×2 (17:37→18:53)
[2016-10-18] MEDS ORDERED: HALOPERIDOL LACTATE 5 MG/ML 1 ML VIAL IVP STA (17:38)
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
[2016-10-18 18:24] LABS: Potassium 4.8 mmol/L (3.5-5.1); Total Protein 9.5 g/dL (6.3-8.2)
[2016-10-18 18:38] LABS: CH 31.4; CHCM 37.3; HCT 50.5 % (39.0-53.0); HDW 2.87; MCH 30.8 pg (25.0-35.0); MCHC 36.4 g/dL (31.0-37.0); MCV 84.4 fL (80.0-100.0); Mean Platelet Volume 8.2; RBC 5.98 m/uL (4.30-5.90); RDW 13.6 % (11.5-15.5); WBC 14.1 k/uL (3.8-10.6); WBC (Perox) 16.08
[2016-10-18 18:42] LABS: HGB 18.4 gm/dL (13.0-17.5)
--- NOTE | 2016-10-18 18:44 | XR ---
EXAMINATION TYPE: XR abdomen 2V DATE OF EXAM: 10/18/2016 COMPARISON: 10/09/2016 HISTORY: Abdominal pain TECHNIQUE: 2 views FINDINGS: There is no sign of intestinal obstruction or pneumoperitoneum. Fecal pattern is normal. Th ere are clips from cholecystectomy. There are clips over left and right kidney. There is multilevel p osterior lumbar spine fusion surgery. Lung bases are clear. IMPRESSION: Nonacute abdomen. No change.
[2016-10-18 18:56] LABS: Add Differential Manual Differential; Manual Review Performed; Nucleated Red Blood Cells 0 /100 WBC (0-0); RBC Morphology Normal; Total Cells Counted 100
[2016-10-18 21:24] VITALS: BP 153/89; PULSE 94; RESP 18; TEMP 98.5
== END 2016-10-18 21:23 | disposition home or self-care (01) ==
LOC: EC 16:29
DX: N17.9 Acute kidney failure, unspecified (principal); E86.0 Dehydration; R10.84 Generalized abdominal pain; I10 Essential (primary) hypertension; E07.9 Disorder of thyroid, unspecified; I25.2 Old myocardial infarction; Z87.891 Personal history of nicotine dependence; Z79.82 Long term (current) use of aspirin; Z79.899 Other long term (current) drug therapy; Z88.8 Allergy status to other drugs, medicaments and biological substances; Z87.19 Personal history of other diseases of the digestive system
CPT/HCPCS: 36415; 80053; 85025; 74020; 99284; 96374; 96361 ×3; J1630

== ENCOUNTER 2016-11-03 08:08 | Inpatient (IN) | payer MEDICARE ==
[2016-11-03] MEDS ORDERED: NITROGLYCERIN SL TABS 0.4 MG TAB SUBLINGUAL STA ×3 (08:23)
[2016-11-03] MEDS ORDERED: ASPIRIN 81 MG PO STA (08:23)
[2016-11-03] MEDS ORDERED: SODIUM CHLORIDE 0.9% 1,000 ML IV STA (08:23)
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
[2016-11-03 08:49] LABS: Basophils # (A) 0.1 k/uL (0-0.2); Basophils % (A) 1 %; CH 32.1; CHCM 36.6; Eosinophils # (A) 0.1 k/uL (0-0.7); Eosinophils % (A) 1 %; HDW 2.71; HGB 17.8 gm/dL (13.0-17.5); Luc # (Auto) 0.09; Luc % (Auto) 1; Lymphocytes # (A) 1.7 k/uL (1.0-4.8); Lymphocytes % (A) 9 %; MCH 29.7 pg (25.0-35.0); MCHC 33.7 g/dL (31.0-37.0); MCV 88.2 fL (80.0-100.0); Mean Platelet Volume 7.4; Monocytes # (A) 0.5 k/uL (0-1.0); Monocytes % (A) 3 %; Neutrophils # (A) 16.5 k/uL (1.3-7.7); Neutrophils % (A) 87 %; RDW 14.7 % (11.5-15.5); WBC 18.9 k/uL (3.8-10.6); WBC (Perox) 20.33
[2016-11-03 09:01] LABS: INR 1.1 (<1.2); Partial Thromboplastin Time 22.9 sec (22.0-30.0); Prothrombin Time 10.8 sec (9.0-12.0)
[2016-11-03 09:03] LABS: Potassium 4.5 mmol/L (3.5-5.1)
[2016-11-03 09:04] LABS: Calcium 11.9 mg/dL (8.4-10.2); Magnesium 1.8 mg/dL (1.6-2.3); Total Bilirubin 1.2 mg/dL (0.2-1.3); Total Protein 10.4 g/dL (6.3-8.2)
--- NOTE | 2016-11-03 09:06 | XR ---
EXAMINATION TYPE: XR chest 2V DATE OF EXAM: 11/03/2016 COMPARISON: 10/10/2016 TECHNIQUE: PA and lateral views submitted. HISTORY: Chest pain FINDINGS: The lungs are clear and there is no pneumothorax, pleural effusion, or focal pneumonia. Hyperinflat ion suggests COPD. Atherosclerotic change of aorta. Arthropathy of the shoulders. IMPRESSION: 1. No acute process.
[2016-11-03 09:35] LABS: Creatine Kinase MB 16.2 ng/mL (0.0-2.4); Troponin I 0.781 ng/mL (0.000-0.034)
[2016-11-03] MEDS ORDERED: HEPARIN SODIUM,PORCINE 5,000 UNIT/ML 1 ML VIAL IV ONE (09:37)
[2016-11-03] MEDS ORDERED: SODIUM CHLORIDE 0.9% 500 ML IV STA (09:37)
[2016-11-03] MEDS ORDERED: NITROGLYCERIN SL TABS 0.4 MG TAB SUBLINGUAL PRN ×2 (09:45→12:57)
[2016-11-03] MEDS ORDERED: SODIUM CHLORIDE 0.9% 1,000 ML IV SCH (09:45)
[2016-11-03] MEDS ORDERED: ONDANSETRON ODT 4 MG TAB PO PRN (09:46)
[2016-11-03] MEDS ORDERED: PANTOPRAZOLE 40 MG/10 ML VIAL IVP STA (10:45)
[2016-11-03] MEDS: HEPARIN SODIUM,PORCINE/D5W PMX 25,000 UNIT in DEXTROSE/WATER 1 500ML.BAG IV SCH (11:00)
--- NOTE | 2016-11-03 11:07 | NM ---
EXAMINATION TYPE: NM pul vent and perfuse DATE OF EXAM: 11/03/2016 COMPARISON: 12/23/2013 HISTORY: Chest pain TECHNIQUE: Utilizing inhalation of 70.9 mCi Tc 99m DTPA aerosol and intravenous injection of 5.5 mCi of Tc 99m MAA, ventilation and perfusion images are acquired post injection in multiple projections. FINDINGS: Normal radiotracer distribution is noted in the lungs. There is no evidence of mismatched defects. IMPRESSION: No evidence for pulmonary embolism.
[2016-11-03] MEDS: cloNIDine HCL 0.1 MG TAB PO SCH ×2 (11:44→16:43)
[2016-11-03] MEDS: NITROGLYCERIN OINT 1 INCH/GM PACKET TOPICAL SCH ×2 (12:14→17:14)
[2016-11-03] MEDS: LOSARTAN 50 MG TAB PO SCH (12:22)
[2016-11-03] MEDS ORDERED: Magnesium Replacement Protocol 1 EACH MISC MISCELLANE PRN (12:35)
[2016-11-03] MEDS ORDERED: ONDANSETRON 4 MG/2 ML VIAL IVP PRN (12:56)
[2016-11-03] MEDS ORDERED: DIPHENOX-ATROP 2.5-0.025 MG 1 EACH TAB PO PRN (12:57)
[2016-11-03] MEDS ORDERED: DICYCLOMINE 20 MG TAB PO PRN (12:57)
[2016-11-03] MEDS ORDERED: PROMETHAZINE 25 MG TAB PO PRN (12:57)
[2016-11-03] MEDS: SODIUM CHLORIDE 0.9% 1,000 ML IV SCH ×2 (13:07→22:10)
[2016-11-03] MEDS: MAGNESIUM SULFATE-D5W PMX 1 GM in DEXTROSE/WATER 1 100ML.BAG IVPB SCH ×2 (13:09→15:01)
[2016-11-03] MEDS: LORazepam 2 MG/ML INJ IV PRN ×2 (13:09→19:57)
--- NOTE | 2016-11-03 13:18 | P.HPIM ---
History of Present Illness H&P Date: 11/03/16 Chief Complaint: Chest pain, nausea 61-year-old male who presented to the emergency room on 11/03/2016 with a chief complaint of chest pain and nausea. The patient states he has had nausea, vomiting, and diarrhea since Tuesday. He stated he began to experience chest pain this morning and came to the emergency room for evaluation. In the emergency room a chest x-ray was completed which was unremarkable. An EKG was performed which showed sinus rhythm with Q waves in the inferior leads. His troponin was elevated at 0.781 and his CK-MB was elevated at 16.2. His d-dimer was elevated at 1.05. A VQ scan was performed which was negative for pulmonary embolism. The patient has a history of chronic kidney disease. His creatinine was elevated on admission of 4.73 with a BUN of 29. His creatinine on 10-18-16 was 1.80. The patient was started on a heparin drip and admitted to the hospital under the care of Dr. Nava. Consults were placed to cardiology and nephrology. The patient had a recent admission to the hospital from 10/09/2016 to 2016 for nausea, vomiting, and acute kidney injury. The patient was given IV fluids and his creatinine returned to the baseline. The patient has a history of irritable bowel syndrome and persistant GI symptoms of nausea, vomiting, and diarrhea for at least five years. The patient takes Bentyl and Lomotil at home. He underwent a GI workup earlier this year. EGD was performed in May of 2016 which showed mild antral gastritis, small hiatal hernia, and no evidence of peptic ulcer disease. The patieent has a history of coronary artery disease. He states he has had " 10 heart attacks". He has had 2 stents placed in 2007 and 2013 per the patient. His last available echo is from 05/14/16 which showed an EF between 50-55 % and moderate left ventricular hypertrophy. He also has a history of hypertension, chronic renal disease, osteoarthritis, and hyperlipidemia. He has a history of chronic back pain. The patient uses medical marijuana. Upon reviewing old records, the patient also has a history of opioid dependency and abuse for many years . Upon evaluation in assessment, the patient is complaining of leg cramps and requesting 2 mg of Dilaudid. He states he does not have chest pain or pressure at this time. He denies shortness of breath. He does complain of some acid reflux which he relates to his vomiting. He denies abdominal pain. He states he does not have much of an appetite. He was started on a cardiac diet. Per nursing, the patient only ate a few bites of his lunch. Review of Systems Those systems with pertinent positive or pertinent negative responses have been documented in the HPI Past Medical History Past Medical History: Coronary Artery Disease (CAD), Chest Pain / Angina, GERD/ Reflux, Hyperlipidemia, Hypertension, Myocardial Infarction (IN), Musculoskeletal Disorder, Osteoarthritis (OA), Pneumonia, Renal Disease, Thyroid Disorder Additional Past Medical History / Comment(s): Pt recently admitted to [facility] on 10/09/16 with abdominal pain, nausea/vomiting and dehydration. Other hx: Pt states he has had numerous MIs, lumbar sacral spinal stenosis, chronic low back pain with bilateral sciatica, pinched nerves in back, DIVERTICULITIS, IBS, bronchitis, migraines, numbness/tingling bilateral feet. Last Myocardial Infarction Date:: 2013 History of Any Multi-Drug Resistant Organisms: None Reported Past Surgical History: Back Surgery, Cholecystectomy, Heart Catheterization With Stent, Hernia Repair, Orthopedic Surgery Additional Past Surgical History / Comment(s): COLONOSCOPY, EGD, ORIF LT ANKLE. BACK SURGERIES fusion L3-L5, LT HAND SURGERY, RT KNEE ARTHROSC, RT ELBOW SURG, LUMBAR SPINE CYST REMOVAL AT L2 IN 2013, HIATAL HERNIA REPAIR, right shoulder arthroscopy, back injections. Past Anesthesia/Blood Transfusion Reactions: No Reported Reaction Date of Last Stent Placement:: 2013 Past Psychological History: No Psychological Hx Reported Additional Psychological History / Comment(s): pt resides with his spouse in a ranch style home that has 2 front steps. He uses a cane as needed. He drives.has 2 pet dogs(1 pit bull and 1 slovak comer) Smoking Status: Former smoker Past Alcohol Use History: None Reported Additional Past Alcohol Use History / Comment(s): smoked from 1971 to 1983 Past Drug Use History: Marijuana Additional Drug Use History / Comment(s): Smokes marijuana nearly daily. Last smoked on 10/31/16. Pt states he used alot of opiates in the past for back pain but has been weaned off now. UDS dated 10/10/16 +opiate. - Past Family History Mother Family Medical History: Thyroid Disorder Father Family Medical History: Diabetes Mellitus, Myocardial Infarction ([place]) Additional Family Medical History / Comment(s): TRIPLE [place]PASS, [place] in his 50's or 60's. from MVA when he was in his 80's Sister(s) Family Medical History: Cancer, Thyroid Disorder Additional Family Medical History / Comment(s): SKIN CA Medications and Allergies Home Medications Medication Instructions Recorded Confirmed Type cloNIDine HCL [Clonidine HCl] 0.1 mg PO TID 11/16/15 11/03/16 History Levothyroxine Sodium [Synthroid] 75 mcg PO DAILY 05/04/16 11/03/16 History Omeprazole 20 mg PO DAILY 05/04/16 11/03/16 History Amitriptyline HCl [Elavil] 50 mg PO HS 05/14/16 11/03/16 History Dicyclomine [Bentyl] 20 mg PO AC-TID PRN 05/31/16 11/03/16 History Losartan [Cozaar] 50 mg PO DAILY 05/31/16 11/03/16 History Aspirin [Adult Low Dose Aspirin EC] 81 mg PO DAILY 06/24/16 11/03/16 History Diphenoxylate HCl/Atropine 1 tab PO Q8H PRN 07/19/16 11/03/16 History [Lomotil 2.5-0.025 mg Tablet] Nitroglycerin Sl Tabs [Nitrostat] 0.4 mg SUBLINGUAL Q5M PRN 07/19/16 11/03/16 History Ondansetron Odt [Zofran ODT] 4 mg PO Q8HR PRN #10 tab 09/10/16 11/03/16 Rx Cholecalciferol [Vitamin D3] 2,000 unit PO DAILY 09/23/16 11/03/16 History Ferrous Sulfate [Iron (65 MG 325 mg PO DAILY 09/23/16 11/03/16 History Elemental)] Escitalopram [Lexapro] 30 mg PO DAILY 10/07/16 11/03/16 History Promethazine HCl 12.5 mg PO Q6H PRN 10/07/16 11/03/16 History Allergies Allergy/AdvReac Type Severity Reaction Status Date / Time Beta-Blockers Allergy Rash/Hives Verified 11/03/16 08:49 (Beta-Adrenergic Bloc paroxetine HCl [From Paxil] AdvReac Unknown Abdominal Verified 11/03/16 08:49 Pain Physical Exam Vitals: Vital Signs Temp Pulse Resp BP Pulse Ox 11/03/16 11:00 99.1 F 101 H 22 163/98 99 11/03/16 09:42 98 20 139/98 98 11/03/16 08:41 107 H 139/87 11/03/16 08:17 96.9 F L 82 18 175/119 95 Intake and Output 11/02/16 11/03/16 11/03/16 22:59 06:59 14:59 Other: Weight 99.79 kg Patient Weight 11/04/16 06:59 Weight 99.79 kg GENERAL: Alert and oriented. Appears in no acute distress. Pleasant and cooperative. RESPIRATORY: Lungs clear bilaterally. No use of accessory muscles. Patient maintaining oxygen saturation greater than 92%. CARDIOVASCULAR: Slightly tachycardic. S1 and S2 noted. No JVD noted. EXTREMITIES: No edema noted. Palpable pedal pulses +2. ABDOMEN: No distention noted. Abdomen soft and round. Normal active bowel sounds auscultated 4 quadrants. No pain or tenderness noted upon palpation. Results CBC & Chem 7: 11/04/16 05:52 11/04/16 05:52 Labs: Abnormal Lab Results - Last 24 Hours (Table) 11/03/16 11/03/16 11/03/16 Range/Units 08:38 08:38 08:38 WBC 18.9 H (3.8-10.6) k/uL RBC 6.00 H (4.30-5.90) m/uL Hgb 17.8 H (13.0-17.5) gm/dL Neutrophils # 16.5 H (1.3-7.7) k/uL D-Dimer (<0.60) mg/L FEU Chloride 89 L (98-107) mmol/L Carbon Dioxide 17 L (22-30) mmol/L BUN 29 H (9-20) mg/dL Creatinine 4.73 H (0.66-1.25) mg/dL Glucose 228 H (74-99) mg/dL Calcium 11.9 H (8.4-10.2) mg/dL Alkaline Phosphatase 130 H (38-126) U/L Total Creatine Kinase 416 H (55-170) U/L CK-MB (CK-2) 16.2 H* (0.0-2.4) ng/mL Troponin I 0.781 H* (0.000-0.034) ng/mL Total Protein 10.4 H (6.3-8.2) g/dL Albumin 6.2 H (3.5-5.0) g/dL 11/03/16 Range/Units 08:38 WBC (3.8-10.6) k/uL RBC (4.30-5.90) m/uL Hgb (13.0-17.5) gm/dL Neutrophils # (1.3-7.7) k/uL D-Dimer 1.05 H (<0.60) mg/L FEU Chloride (98-107) mmol/L Carbon Dioxide (22-30) mmol/L BUN (9-20) mg/dL Creatinine (0.66-1.25) mg/dL Glucose (74-99) mg/dL Calcium (8.4-10.2) mg/dL Alkaline Phosphatase (38-126) U/L Total Creatine Kinase (55-170) U/L CK-MB (CK-2) (0.0-2.4) ng/mL Troponin I (0.000-0.034) ng/mL Total Protein (6.3-8.2) g/dL Albumin (3.5-5.0) g/dL Thrombosis Risk Factor Assmnt - Choose All That Apply Any of the Below Risk Factors Present?: Yes Each Factor Represents 1 point: Acute [place], Obesity (BMI >25) Other Risk Factors: Yes Each Risk Factor Represents 2 Points: Age 61-74 years Other congenital or acquired thrombophilia - If yes, enter type in comment: No Thrombosis Risk Factor Assessment Total Risk Factor Score: 4 Thrombosis Risk Factor Assessment Level: Moderate Risk Assessment and Plan Plan: ASSESSMENT: -Non-ST elevated myocardial infarction, present on admission, ruled out by cardiology, EKG shows PRIOR inferior IN and nonspecific ST-T wave abnormalities -Acute on chronic kidney disease, creatinine 4.73 on admission -Metabolic acidosis, secondary to acute kidney injury -Leg cramps, electrolytes within normal range, suspect due to dehydration secondary to nausea, vomiting, and diarrhea or from statin therapy. -Coronary artery disease with previous stenting 2 -Elevated d-dimer, present on admission, VQ scan negative for PE -Leukocytosis, present on admission, no evidence of sepsis -History of chronic pain with opioid dependency and abuse per previous records -Essential hypertension -Hyperlipidemia -Obesity, BMI 30.7 PLAN: -Cardiology on consult. Appreciate recommendations and input -Nephrology on consult. Appreciate recommendations and input -Continue heparin drip -Obtain echo -NO narcotics per Dr. Nava -Will order 1 mg Ativan every [address] Nava -Spoke with pharmacy regarding possible muscle rub/cream. Will order Menthol cream to be applied to legs QID PRN for muscle cramps. -Monitor electrolytes -Replace magnesium per protocol -Increase IV fluids to 125 mL an hour -Resume home meds as appropriate -Resume home meds for nausea. Patient takes Zofran and Phenergan PO PRN -Monitor labs -GI prophylaxis: Protonix 40 mg IV daily -DVT prophylaxis: Patient currently on heparin drip -Monitor vital signs and address as appropriate The above impression and plan of care have been discussed and directed by signing physician. Viv Barragan, nurse practitioner, acting as scribe for signing physician.
[2016-11-03] MEDS ORDERED: MENTHOL-ZINC OXIDE OINT 113 GM TUBE TOPICAL PRN (13:34)
[2016-11-03] MEDS ORDERED: hydrALAZINE HCL 20 MG/ML 1 ML VIAL IVP PRN (13:53)
--- NOTE | 2016-11-03 14:22 | P.CRDCN ---
History of Present Illness Consult date: 11/03/16 Requesting physician: Miki Nava Reason for Consult (text): Non-STEMI Chief complaint: chest pressure History of present illness: This is a pleasant 1-year-old gentleman who follows with Dr. Patrick in the office. Has known history of hyperlipidemia, coronary artery disease, prior MT and prior stenting, most recent to the RCA in 2013, statin-induced myopathy. Patient presented to the emergency department with complaints of chest pressure. He also complained of nausea and vomiting that started yesterday. This morning around 4 AM he was in bed after vomiting and developed pressure in his chest. Upon presentation, EKG shows sinus rhythm with prior inferior MT and nonspecific ST-T wave abnormalities, similar to previous. A value showed elevated white blood cell count 18.9, BUN of 29, creatinine 4.73 which is significantly elevated from his baseline and a BNP of 2270. First troponin came back to be abnormal at 0.781. His d-dimer was elevated however subsequent VQ scan showed no evidence for PE. Chest x-ray showed no acute process. The pressure was elevated on admission however patient did not take his morning blood pressure medications at that time. Upon examination, patient is resting comfortably in bed. He denies further complaints of chest pressure. He does say that the pressure he felt this morning was similar to the discomfort he felt prior to his most recent stent in 2013. His been initiated on a heparin drip and IV fluids going at 125 mL an hour. Past Medical History Past Medical History: Coronary Artery Disease (CAD), Chest Pain / Angina, GERD/ Reflux, Hyperlipidemia, Hypertension, Myocardial Infarction (MT), Musculoskeletal Disorder, Osteoarthritis (OA), Pneumonia, Renal Disease, Thyroid Disorder Additional Past Medical History / Comment(s): Pt recently admitted to [facility] on 10/09/16 with abdominal pain, nausea/vomiting and dehydration. Other hx: Pt states he has had numerous MIs, lumbar sacral spinal stenosis, chronic low back pain with bilateral sciatica, pinched nerves in back, DIVERTICULITIS, IBS, bronchitis, migraines, numbness/tingling bilateral feet. Last Myocardial Infarction Date:: 2013 History of Any Multi-Drug Resistant Organisms: None Reported Past Surgical History: Back Surgery, Cholecystectomy, Heart Catheterization With Stent, Hernia Repair, Orthopedic Surgery Additional Past Surgical History / Comment(s): COLONOSCOPY, EGD, ORIF LT ANKLE. BACK SURGERIES fusion L3-L5, LT HAND SURGERY, RT KNEE ARTHROSC, RT ELBOW SURG, LUMBAR SPINE CYST REMOVAL AT L2 IN 2014, HIATAL HERNIA REPAIR, right shoulder arthroscopy, back injections. Past Anesthesia/Blood Transfusion Reactions: No Reported Reaction Date of Last Stent Placement:: 2013 Past Psychological History: No Psychological Hx Reported Additional Psychological History / Comment(s): pt resides with his spouse in a ranch style home that has 2 front steps. He uses a cane as needed. He drives.has 2 pet dogs(1 pit bull and 1 swedish comer) Smoking Status: Former smoker Past Alcohol Use History: None Reported Additional Past Alcohol Use History / Comment(s): smoked from 1971 to 1983 Past Drug Use History: Marijuana Additional Drug Use History / Comment(s): Smokes marijuana nearly daily. Last smoked on 10/31/16. Pt states he used alot of opiates in the past for back pain but has been weaned off now. UDS dated 10/10/16 +opiate. - Past Family History Mother Family Medical History: Thyroid Disorder Father Family Medical History: Diabetes Mellitus, Myocardial Infarction ([place]) Additional Family Medical History / Comment(s): TRIPLE [place], [place] in his 50's or 60's. from MVA when he was in his 80's Sister(s) Family Medical History: Cancer, Thyroid Disorder Additional Family Medical History / Comment(s): SKIN CA Medications and Allergies Home Medications Medication Instructions Recorded Confirmed Type cloNIDine HCL [Clonidine HCl] 0.1 mg PO TID 11/16/15 11/03/16 History Levothyroxine Sodium [Synthroid] 75 mcg PO DAILY 05/04/16 11/03/16 History Omeprazole 20 mg PO DAILY 05/04/16 11/03/16 History Amitriptyline HCl [Elavil] 50 mg PO HS 05/14/16 11/03/16 History Dicyclomine [Bentyl] 20 mg PO AC-TID PRN 05/31/16 11/03/16 History Losartan [Cozaar] 50 mg PO DAILY 05/31/16 11/03/16 History Aspirin [Adult Low Dose Aspirin EC] 81 mg PO DAILY 06/24/16 11/03/16 History Diphenoxylate HCl/Atropine 1 tab PO Q8H PRN 07/19/16 11/03/16 History [Lomotil 2.5-0.025 mg Tablet] Nitroglycerin Sl Tabs [Nitrostat] 0.4 mg SUBLINGUAL Q5M PRN 07/19/16 11/03/16 History Ondansetron Odt [Zofran ODT] 4 mg PO Q8HR PRN #10 tab 09/10/16 11/03/16 Rx Cholecalciferol [Vitamin D3] 2,000 unit PO DAILY 09/23/16 11/03/16 History Ferrous Sulfate [Iron (65 MG 325 mg PO DAILY 09/23/16 11/03/16 History Elemental)] Escitalopram [Lexapro] 30 mg PO DAILY 10/07/16 11/03/16 History Promethazine HCl 12.5 mg PO Q6H PRN 10/07/16 11/03/16 History Allergies Allergy/AdvReac Type Severity Reaction Status Date / Time Beta-Blockers Allergy Rash/Hives Verified 11/03/16 08:49 (Beta-Adrenergic Bloc paroxetine HCl [From Paxil] AdvReac Unknown Abdominal Verified 11/03/16 08:49 Pain Physical Exam Vitals: Vital Signs Temp Pulse Resp BP Pulse Ox 11/03/16 11:00 99.1 F 101 H 22 163/98 99 11/03/16 09:42 98 20 139/98 98 11/03/16 08:41 107 H 139/87 11/03/16 08:17 96.9 F L 82 18 175/119 95 Intake and Output 11/02/16 11/03/16 11/03/16 22:59 06:59 14:59 Intake Total 200 Balance 200 Intake: Oral 200 Other: Weight 99.79 kg Patient Weight 11/04/16 06:59 Weight 99.79 kg PHYSICAL EXAMINATION: HEENT: Head is atraumatic, normocephalic. Pupils equal, round. Neck is supple. There is no elevated jugular venous pressure. HEART EXAMINATION: Heart sounds regular, S1 and S2 normal. No murmur or gallop heard. CHEST EXAMINATION: Lungs are clear to auscultation and precussion. No chest wall tenderness is noted on palpation or with deep breathing. ABDOMEN: Soft, nontender. Bowel sounds are heard. No organomegaly noted. EXTREMITIES: 2+ peripheral pulses with no evidence of peripheral edema and no calf tenderness noted. NEUROLOGIC patient is awake, alert and oriented x3. . Results 11/03/16 08:38 11/03/16 08:38 Cardiac Enzymes 11/03/16 11/03/16 Range/Units 08:38 08:38 AST 39 (17-59) U/L CK-MB (CK-2) 16.2 H* (0.0-2.4) ng/mL Troponin I 0.781 H* (0.000-0.034) ng/mL Coagulation 11/03/16 Range/Units 08:38 PT 10.8 (9.0-12.0) sec APTT 22.9 (22.0-30.0) sec CBC 11/03/16 Range/Units 08:38 WBC 18.9 H (3.8-10.6) k/uL RBC 6.00 H (4.30-5.90) m/uL Hgb 17.8 H (13.0-17.5) gm/dL Hct 53.0 (39.0-53.0) % Plt Count 321 (150-450) k/uL Comprehensive Metabolic Panel 11/03/16 Range/Units 08:38 Sodium 138 (137-145) mmol/L Potassium 4.5 (3.5-5.1) mmol/L Chloride 89 L (98-107) mmol/L Carbon Dioxide 17 L (22-30) mmol/L BUN 29 H (9-20) mg/dL Creatinine 4.73 H (0.66-1.25) mg/dL Glucose 228 H (74-99) mg/dL Calcium 11.9 H (8.4-10.2) mg/dL AST 39 (17-59) U/L ALT 40 (21-72) U/L Alkaline Phosphatase 130 H (38-126) U/L Total Protein 10.4 H (6.3-8.2) g/dL Albumin 6.2 H (3.5-5.0) g/dL Current Medications Generic Name Dose Route Start Last Admin Trade Name Freq PRN Reason Stop Dose Admin Amitriptyline HCl 50 mg 11/03/16 21:00 Elavil PO HS CYNDIE Aspirin 325 mg 11/04/16 09:00 Aspirin PO DAILY CYNDIE Calamine/Phenol 1 applic 11/03/16 13:34 Risamine Oint TOPICAL QID PRN muscle cramps Cholecalciferol 2,000 unit 11/04/16 12:00 Vitamin D3 PO 1200 CYNDIE Clonidine 0.1 mg 11/03/16 10:00 11/03/16 11:44 Catapres PO 0.1 mg TID CYNDIE Administration Dicyclomine HCl 20 mg 11/03/16 12:57 Bentyl PO AC-TID PRN Abdominal Cramping Diphenoxylate HCl/Atropine 1 each 11/03/16 12:57 Lomotil PO Q8H PRN Diarrhea Escitalopram Oxalate 30 mg 11/04/16 09:00 Lexapro PO DAILY CYNDIE Ferrous Sulfate 325 mg 11/04/16 12:00 Feosol PO 1200 CYNDIE Heparin Sodium (Porcine) 0 unit 11/03/16 09:37 Heparin IV PER PROTOCOL PRN Low PTT Protocol Hydralazine HCl 10 mg 11/03/16 13:53 Apresoline IVP Q6HR PRN Blood Pressure - High Heparin Sodium/Dextrose 25,000 500 mls @ 19.95 mls/hr 11/03/16 09:45 11:00 unit/ IV Solution IV 10 units/kg/hr .Q24H CYNDIE 19.95 mls/hr Protocol Administration 10 UNITS/KG/HR Magnesium Sulfate/Dextrose 1 100 mls @ 100 mls/hr 11/03/16 12:45 11/03/16 13: 09 gm/ IV Solution IVPB 11/03/16 14:44 100 mls/hr Q1H CYNDIE Administration Sodium Chloride 1,000 mls @ 125 mls/hr 11/03/16 13:00 11/03/16 13:07 Saline 0.9% IV Not Given .Q8H CYNDIE Levothyroxine Sodium 75 mcg 11/04/16 06:30 Synthroid PO 0630 CYNDIE Lorazepam 1 mg 11/03/16 12:44 11/03/16 13:09 Ativan IV 1 mg Q6HR PRN Administration Anxiety Losartan Potassium 50 mg 11/03/16 10:00 11/03/16 12:22 Cozaar PO 50 mg DAILY CYNDIE Administration Miscellaneous Information 1 each 11/03/16 12:35 Magnesium Per Protocol MISCELLANE DAILY PRN Per Protocol Protocol Nitroglycerin 1 inch 11/03/16 12:00 11/03/16 12:14 Nitro-Bid Oint TOPICAL Not Given Q6HR [facility] Nitroglycerin 0.4 mg 11/03/16 12:57 Nitrostat SUBLINGUAL Q5M PRN Chest Pain Ondansetron HCl 4 mg 11/03/16 09:46 11/03/16 10:50 Zofran Odt PO 4 mg Q8HR PRN Administration Nausea Pantoprazole Sodium 40 mg 11/04/16 09:00 Protonix IVP DAILY CYNDIE Promethazine HCl 12.5 mg 11/03/16 12:57 Phenergan PO Q6H PRN Nausea Intake and Output 11/02/16 11/03/16 11/03/16 22:59 06:59 14:59 Intake Total 200 Balance 200 Intake: Oral 200 Other: Weight 99.79 kg Patient Weight 11/04/16 06:59 Weight 99.79 kg 11/03/16 08:38 11/03/16 08:38 EKG Interpretations (text) Sinus rhythm with evidence of prior inferior MT and nonspecific ST-T wave abnormalities Assessment and Plan Plan: Assessment and plan #1 elevated troponin #2 acute renal failure #3 hypertension #4 hyperlipidemia #5 coronary artery disease with prior stenting #6 history of statin induced myopathy #7 chest pressure #8 dehydration From cardiology's perspective, we'll obtain a 2-D echo with Doppler. We will review subsequent troponin levels to monitor trend. Hydrate the patient. Continue to monitor renal function. Further recommendations to follow. PYR[employer]CH[employer]ER note has been reviewed, I agree with a documented findings and plan of care. Patient was seen and examined.
[2016-11-03 16:57] LABS: Creatine Kinase MB 23.1 ng/mL (0.0-2.4); Troponin I 0.814 ng/mL (0.000-0.034)
[2016-11-03] MEDS: HEPARIN SODIUM,PORCINE 5,000 UNIT/ML 1 ML VIAL IV PRN (18:10)
[2016-11-03] MEDS: AMITRIPTYLINE HCL 50 MG TAB PO SCH (19:57)
[2016-11-03 22:12] LABS: Creatine Kinase MB 27.1 ng/mL (0.0-2.4); Troponin I 0.719 ng/mL (0.000-0.034)
[2016-11-04] MEDS: cloNIDine HCL 0.1 MG TAB PO SCH ×4 (00:24→21:20)
[2016-11-04] MEDS: NITROGLYCERIN OINT 1 INCH/GM PACKET TOPICAL SCH ×5 (00:27→23:21)
[2016-11-04] MEDS: LORazepam 2 MG/ML INJ IV PRN ×3 (02:17→22:06)
[2016-11-04] MEDS: HEPARIN SODIUM,PORCINE/D5W PMX 25,000 UNIT in DEXTROSE/WATER 1 500ML.BAG IV SCH (05:25)
[2016-11-04] MEDS: LEVOTHYROXINE 75 MCG TAB PO SCH (05:47)
[2016-11-04] MEDS: SODIUM CHLORIDE 0.9% 1,000 ML IV SCH ×3 (05:48→22:26)
[2016-11-04 06:40] LABS: Basophils # (A) 0.1 k/uL (0-0.2); Basophils % (A) 0 %; CH 30.9; CHCM 34.7; Eosinophils # (A) 0.1 k/uL (0-0.7); Eosinophils % (A) 1 %; HCT 41.2 % (39.0-53.0); HGB 14.2 gm/dL (13.0-17.5); Luc # (Auto) 0.22; Luc % (Auto) 2; Lymphocytes # (A) 2.2 k/uL (1.0-4.8); Lymphocytes % (A) 17 %; MCH 30.9 pg (25.0-35.0); MCHC 34.5 g/dL (31.0-37.0); MCV 89.5 fL (80.0-100.0); Monocytes # (A) 0.6 k/uL (0-1.0); Monocytes % (A) 5 %; Neutrophils # (A) 9.9 k/uL (1.3-7.7); Neutrophils % (A) 76 %; RDW 13.9 % (11.5-15.5); WBC 13.1 k/uL (3.8-10.6); WBC (Perox) 13.22
[2016-11-04 07:05] LABS: Calcium 9.6 mg/dL (8.4-10.2); Magnesium 2.6 mg/dL (1.6-2.3); Total Bilirubin 0.5 mg/dL (0.2-1.3); Total Protein 6.7 g/dL (6.3-8.2)
[2016-11-04] MEDS: HEPARIN SODIUM,PORCINE 5,000 UNIT/ML 1 ML VIAL IV PRN (07:44)
[2016-11-04] MEDS: ASPIRIN 325 MG TAB PO SCH (08:45)
[2016-11-04] MEDS: LOSARTAN 50 MG TAB PO SCH (08:45)
[2016-11-04] MEDS: ESCITALOPRAM 10 MG TAB PO SCH (08:46)
[2016-11-04] MEDS: CHOLECALCIFEROL 1,000 UNIT TAB PO SCH (08:47)
[2016-11-04] MEDS: FERROUS SULFATE 325 MG TAB PO SCH (08:47)
[2016-11-04] MEDS ORDERED: PANTOPRAZOLE 40 MG/10 ML VIAL IVP SCH (09:00)
--- NOTE | 2016-11-04 09:38 | P.PN ---
Subjective Principal diagnosis: 11-03-16 61-year-old male who presented to the emergency room on 11/03/2016 with a chief complaint of chest pain and nausea. The patient states he has had nausea, vomiting, and diarrhea since Tuesday. He stated he began to experience chest pain this morning and came to the emergency room for evaluation. In the emergency room a chest x-ray was completed which was unremarkable. An EKG was performed which showed sinus rhythm with Q waves in the inferior leads. His troponin was elevated at 0.781 and his CK-MB was elevated at 16.2. His d-dimer was elevated at 1.05. A VQ scan was performed which was negative for pulmonary embolism. The patient has a history of chronic kidney disease. His creatinine was elevated on admission of 4.73 with a BUN of 29. His creatinine on 10-18-16 was 1.80. The patient was started on a heparin drip and admitted to the hospital under the care of Dr. Nava. Consults were placed to cardiology and nephrology. The patient had a recent admission to the hospital from 10/09/2016 to 2016 for nausea, vomiting, and acute kidney injury. The patient was given IV fluids and his creatinine returned to the baseline. The patient has a history of irritable bowel syndrome and persistant GI symptoms of nausea, vomiting, and diarrhea for at least five years. The patient takes Bentyl and Lomotil at home. He underwent a GI workup earlier this year. EGD was performed in May of 2016 which showed mild antral gastritis, small hiatal hernia, and no evidence of peptic ulcer disease. The patient has a history of coronary artery disease. He states he has had "10 heart attacks". He has had 2 stents placed in 2007 and 2013 per the patient. His last available echo is from 05/14/16 which showed an EF between 50-55% and moderate left ventricular hypertrophy. He also has a history of hypertension, chronic renal disease, osteoarthritis, and hyperlipidemia. He has a history of chronic back pain. The patient uses medical marijuana. Upon reviewing old records, the patient also has a history of opioid dependency and abuse for many years . Upon evaluation in assessment, the patient is complaining of leg cramps and requesting 2 mg of Dilaudid. He states he does not have chest pain or pressure at this time. He denies shortness of breath. He does complain of some acid reflux which he relates to his vomiting. He denies abdominal pain. He states he does not have much of an appetite. He was started on a cardiac diet. Per nursing, the patient only ate a few bites of his lunch. 11-04-16 Patient seen and examined at the bedside. Patient states he is feeling much better today. He states his leg cramps have resolved. Denies chest pain or pressure. Patient receiving IV fluid at 125 mL an hour. His creatinine has improved this morning. It is down to 2.78 from 4.73. His vital signs have been stable. He is afebrile. He is maintaining oxygen saturation greater than 92% on room air. His lab work from this morning was reviewed. His WBC is down to 13.1 from 18.9. Spoke with Ericka, cardiology WEATHERIZATION ADMINISTRATOR, and okay to discontinue heparin drip Objective - Vital Signs Vital signs: Vital Signs Temp 97.5 F L 11/04/16 04:00 Pulse 78 11/04/16 04:00 Resp 18 11/04/16 04:00 BP 115/65 11/04/16 04:00 Pulse Ox 96 11/04/16 04:00 Intake & Output 11/03/16 11/04/16 11/04/16 18:59 06:59 18:59 Intake Total 947.975 4548.122 60.959 Output Total 800 200 Balance 861.245 6601.122 -139.041 Weight 99.79 kg 99.4 kg Intake: IV 2360 Heparin Sodium,Porcine/ 360 D5w Pmx 25,000 unit In Dextrose/Water 1 500ml. bag @ 10 UNITS/KG/HR 19. 95 mls/hr IV .Q24H [facility] Rx #:[id number] Sodium Chloride 0.9% 1, 2000 000 ml @ 125 mls/hr IV . Q8H [facility] Rx#:[id number] Intake, IV Titration 141.978 293.122 60.959 Amount Heparin Sodium,Porcine/ 141.978 293.122 60.959 D5w Pmx 25,000 unit In Dextrose/Water 1 500ml. bag @ 10 UNITS/KG/HR 19. 95 mls/hr IV .Q24H [facility] Rx #:[id number] Oral 436 100 0 Output: Urine 800 200 Other: Voiding Method Urinal - Exam GENERAL: Alert and oriented. Appears in no acute distress. Pleasant and cooperative. RESPIRATORY: Lungs clear bilaterally. No use of accessory muscles. Patient maintaining oxygen saturation greater than 92%. CARDIOVASCULAR: Rhythm regular. S1 and S2 noted. No JVD noted. EXTREMITIES: No edema noted. Palpable pedal pulses +2. ABDOMEN: No distention noted. Abdomen soft and round. Normal active bowel sounds auscultated 4 quadrants. No pain or tenderness noted upon palpation. - Labs CBC & Chem 7: 11/04/16 05:52 11/04/16 05:52 Labs: Abnormal Lab Results - Last 24 Hours (Table) 11/03/16 11/03/16 11/03/16 Range/Units 08:38 08:38 15:07 WBC (3.8-10.6) k/uL Neutrophils # (1.3-7.7) k/uL APTT (22.0-30.0) sec Sodium (137-145) mmol/L Carbon Dioxide (22-30) mmol/L BUN (9-20) mg/dL Creatinine (0.66-1.25) mg/dL Glucose (74-99) mg/dL Magnesium (1.6-2.3) mg/dL Total Creatine Kinase 416 H 982 H (55-170) U/L CK-MB (CK-2) 16.2 H* 23.1 H* (0.0-2.4) ng/mL Troponin I 0.781 H* 0.814 H* (0.000-0.034) ng/mL Albumin 6.2 H (3.5-5.0) g/dL Triglycerides (<150) mg/dL Cholesterol (<200) mg/dL LDL Cholesterol, Calc (0-99) mg/dL 11/03/16 11/03/16 11/04/16 Range/Units 17:00 21:05 01:01 WBC (3.8-10.6) k/uL Neutrophils # (1.3-7.7) k/uL APTT 30.1 H 49.7 H (22.0-30.0) sec Sodium (137-145) mmol/L Carbon Dioxide (22-30) mmol/L BUN (9-20) mg/dL Creatinine (0.66-1.25) mg/dL Glucose (74-99) mg/dL Magnesium (1.6-2.3) mg/dL Total Creatine Kinase 1198 H (55-170) U/L CK-MB (CK-2) 27.1 H* (0.0-2.4) ng/mL Troponin I 0.719 H* (0.000-0.034) ng/mL Albumin (3.5-5.0) g/dL Triglycerides (<150) mg/dL Cholesterol (<200) mg/dL LDL Cholesterol, Calc (0-99) mg/dL 11/04/16 11/04/16 11/04/16 Range/Units 05:52 05:52 05:52 WBC 13.1 H (3.8-10.6) k/uL Neutrophils # 9.9 H (1.3-7.7) k/uL APTT 41.6 H (22.0-30.0) sec Sodium 135 L (137-145) mmol/L Carbon Dioxide 21 L (22-30) mmol/L BUN 39 H (9-20) mg/dL Creatinine 2.78 H (0.66-1.25) mg/dL Glucose 107 H (74-99) mg/dL Magnesium 2.6 H (1.6-2.3) mg/dL Total Creatine Kinase (55-170) U/L CK-MB (CK-2) (0.0-2.4) ng/mL Troponin I (0.000-0.034) ng/mL Albumin (3.5-5.0) g/dL Triglycerides 191 H (<150) mg/dL Cholesterol 200 H (<200) mg/dL LDL Cholesterol, Calc 107 H (0-99) mg/dL Assessment and Plan Plan: ASSESSMENT: -Non-ST elevated myocardial infarction, present on admission, ruled out by cardiology, EKG shows PRIOR inferior AR and nonspecific ST-T wave abnormalities -Acute on chronic kidney disease, creatinine 4.73 on admission, improving -Metabolic acidosis, secondary to acute kidney injury -Leg cramps, electrolytes within normal range, suspect due to dehydration secondary to nausea, vomiting, and diarrhea, resolved -Coronary artery disease with previous stenting 2 -Elevated d-dimer, present on admission, VQ scan negative for PE -Leukocytosis, present on admission, no evidence of sepsis, improving -History of chronic pain with opioid dependency and abuse per previous records -Essential hypertension -Hyperlipidemia -Obesity, BMI 30.7 PLAN: -Cardiology on consult. Appreciate recommendations and input -Nephrology on consult. Appreciate recommendations and input -Discontinue heparin drip -Await results of echo -NO narcotics per Dr. Nava -Will order 1 mg Ativan every [address] Nava -Monitor electrolytes -Continue IV fluids at 125cc/hr -Continue home meds for nausea. Patient takes Zofran and Phenergan PO PRN -Monitor labs -GI prophylaxis: Protonix 40 mg PO daily -DVT prophylaxis: Heparin 5000 units subcu Q8 hours -Monitor vital signs and address as appropriate -Anticipate discharge in the next 24-48 hrs. The above impression and plan of care have been discussed and directed by signing physician. Viv Barragan, nurse practitioner, acting as scribe for signing physician.
--- NOTE | 2016-11-04 10:08 | P.NPCON ---
History of Present Illness - Reason for Consult acute renal failure - History of Present Illness Reason for consultation: Acute kidney injury History of present illness: Patient is a 61-year-old male seen in renal consultation for acute kidney injury. His baseline creatinine is 1 and was elevated at 4.7 on admission. It is down to 2.78 today. Patient has had multiple hospitalizations and multiple acute kidney injury episodes in the past. Patient presented to the hospital with chest pain. Patient states he's been having sharp left-sided chest pain which resolved spontaneously for the last few days. However Tuesday morning he woke up with a chest pressure and presented to the hospital. His oral intake for the last 2-3 days has been poor. States he had dinner last night. He was also having quite a bit of vomiting prior to admission. A VQ scan was done which revealed no evidence of PE. States his chest pain is currently resolved. He admits to good urine output. No hematuria or dysuria. His urinalysis from earlier this month was benign. His blood pressures have been well controlled although there was one reading of 94/52. Currently he is maintained on normal saline at 1 25 mL an hour as well as a heparin drip. Denies use of NSAIDs. Vital signs are stable. General: The patient appeared well nourished and normally developed. HEENT: Head exam is unremarkable. Neck is without jugular venous distension. LUNGS: Lungs are clear to auscultation and percussion. Breath sounds decreased. HEART: Rate and Rhythm are regular. First and second heart sounds normal. No murmurs, rubs or gallops. ABDOMEN: Abdominal exam reveals normal bowel sounds. Non-tender and non- distended. No evidence of peritonitis. EXTREMITITES: No clubbing, cyanosis, or edema. Past Medical History Past Medical History: Coronary Artery Disease (CAD), Chest Pain / Angina, GERD/ Reflux, Hyperlipidemia, Hypertension, Myocardial Infarction ([place]), Musculoskeletal Disorder, Osteoarthritis (OA), Pneumonia, Renal Disease, Thyroid Disorder Additional Past Medical History / Comment(s): Pt recently admitted to [facility] on 10/09/16 with abdominal pain, nausea/vomiting and dehydration. Other hx: Pt states he has had numerous MIs, lumbar sacral spinal stenosis, chronic low back pain with bilateral sciatica, pinched nerves in back, DIVERTICULITIS, IBS, bronchitis, migraines, numbness/tingling bilateral feet. Last Myocardial Infarction Date:: 2013 History of Any Multi-Drug Resistant Organisms: None Reported Past Surgical History: Back Surgery, Cholecystectomy, Heart Catheterization With Stent, Hernia Repair, Orthopedic Surgery Additional Past Surgical History / Comment(s): COLONOSCOPY, EGD, ORIF LT ANKLE. BACK SURGERIES fusion L3-L5, LT HAND SURGERY, RT KNEE ARTHROSC, RT ELBOW SURG, LUMBAR SPINE CYST REMOVAL AT L2 IN 2014, HIATAL HERNIA REPAIR, right shoulder arthroscopy, back injections. Past Anesthesia/Blood Transfusion Reactions: No Reported Reaction Date of Last Stent Placement:: 2013 Past Psychological History: No Psychological Hx Reported Additional Psychological History / Comment(s): pt resides with his spouse in a ranch style home that has 2 front steps. He uses a cane as needed. He drives.has 2 pet dogs(1 pit bull and 1 kiswahili comer) Smoking Status: Former smoker Past Alcohol Use History: None Reported Additional Past Alcohol Use History / Comment(s): smoked from 1971 to 1983 Past Drug Use History: Marijuana Additional Drug Use History / Comment(s): Smokes marijuana nearly daily. Last smoked on 10/31/16. Pt states he used alot of opiates in the past for back pain but has been weaned off now. UDS dated 10/10/16 +opiate. - Past Family History Mother Family Medical History: Thyroid Disorder Father Family Medical History: Diabetes Mellitus, Myocardial Infarction ([place]) Additional Family Medical History / Comment(s): [place], [place] in his 50's or 60's. from MVA when he was in his 80's Sister(s) Family Medical History: Cancer, Thyroid Disorder Additional Family Medical History / Comment(s): SKIN CA Medications and Allergies Home Medications Medication Instructions Recorded Confirmed Type cloNIDine HCL [Clonidine HCl] 0.1 mg PO TID 11/16/15 11/03/16 History Levothyroxine Sodium [Synthroid] 75 mcg PO DAILY 05/04/16 11/03/16 History Omeprazole 20 mg PO DAILY 05/04/16 11/03/16 History Amitriptyline HCl [Elavil] 50 mg PO HS 05/14/16 11/03/16 History Dicyclomine [Bentyl] 20 mg PO AC-TID PRN 05/31/16 11/03/16 History Losartan [Cozaar] 50 mg PO DAILY 05/31/16 11/03/16 History Aspirin [Adult Low Dose Aspirin EC] 81 mg PO DAILY 06/24/16 11/03/16 History Diphenoxylate HCl/Atropine 1 tab PO Q8H PRN 07/19/16 11/03/16 History [Lomotil 2.5-0.025 mg Tablet] Nitroglycerin Sl Tabs [Nitrostat] 0.4 mg SUBLINGUAL Q5M PRN 07/19/16 11/03/16 History Ondansetron Odt [Zofran ODT] 4 mg PO Q8HR PRN #10 tab 09/10/16 11/03/16 Rx Cholecalciferol [Vitamin D3] 2,000 unit PO DAILY 09/23/16 11/03/16 History Ferrous Sulfate [Iron (65 MG 325 mg PO DAILY 09/23/16 11/03/16 History Elemental)] Escitalopram [Lexapro] 30 mg PO DAILY 10/07/16 11/03/16 History Promethazine HCl 12.5 mg PO Q6H PRN 10/07/16 11/03/16 History Allergies Allergy/AdvReac Type Severity Reaction Status Date / Time Beta-Blockers Allergy Rash/Hives Verified 11/03/16 08:49 (Beta-Adrenergic Bloc paroxetine HCl [From Paxil] AdvReac Unknown Abdominal Verified 11/03/16 08:49 Pain Physical Exam Vitals: Vital Signs Temp Pulse Pulse Resp BP BP Pulse Ox 11/04/16 04:00 97.5 F L 78 18 115/65 96 11/04/16 00:00 96.9 F L 75 18 94/52 96 11/03/16 19:50 97.4 F L 83 16 111/63 97 11/03/16 16:00 97 F L 88 16 129/68 96 11/03/16 12:00 98.1 F 96 18 156/98 97 11/03/16 11:00 99.1 F 101 H 22 163/98 99 Intake and Output 11/03/16 11/04/16 11/04/16 22:59 06:59 14:59 Intake Total 3242.432 3220.122 60.959 Output Total 800 200 Balance 1637.978 693.122 -139.041 Intake: IV 1160 1200 Heparin Sodium,Porcine/ 160 200 D5w Pmx 25,000 unit In Dextrose/Water 1 500ml. bag @ 10 UNITS/KG/HR 19. 95 mls/hr IV .Q24H [facility] Rx #:[id number] Sodium Chloride 0.9% 1, 1000 1000 000 ml @ 125 mls/hr IV . Q8H [facility] Rx#:[id number] Intake, IV Titration 141.978 293.122 60.959 Amount Heparin Sodium,Porcine/ 141.978 293.122 60.959 D5w Pmx 25,000 unit In Dextrose/Water 1 500ml. bag @ 10 UNITS/KG/HR 19. 95 mls/hr IV .Q24H [facility] Rx #:[id number] Oral 336 0 0 Output: Urine 800 200 Other: Voiding Method Urinal Urinal Weight 99.4 kg Results - Lab Results Most recent lab results Calcium 9.6 mg/dL (8.4-10.2) 11/04/16 05:52 Magnesium 2.6 mg/dL (1.6-2.3) H 11/04/16 05:52 11/04/16 05:52 11/04/16 05:52 Assessment and Plan Plan: Assessment: #1. Nonoliguric acute kidney injury mostly prerenal from intravascular volume depletion from vomiting further worsened with the use of Cozaar. Creatinine was 1.73 on admission and is down to 2.78 today. UA from earlier this month was benign. #2. Benign hypertension. Blood pressures are now on the lower side. #3. Chest pain with elevated troponin levels. Cardiology following. He does have history of coronary artery disease with stent placement in the past. #4. Mild rhabdomyolysis with CK level of 1198 from yesterday. Not on statin. No falls or crush injuries. #5. Non-gap metabolic acidosis from acute kidney injury as well as IV fluids. Plan: Continue normal saline at 1 25 mL an hour. Discontinue Cozaar for now. Hold clonidine for systolic blood pressure less than 120. Follow-up echocardiogram results. Repeat CK level in the morning. Repeat electrolytes in the morning. Repeat UA. Thank you for the consultation. I will continue to follow the patient with you during his hospital stay.
--- NOTE | 2016-11-04 10:13 | ECHOF ---
Referral Reason:nstemi MEASUREMENTS -------- HEIGHT: 180.3 cm WEIGHT: 99.8 kg BP: 163/98 IVSd: 1.7 cm (0.6 - 1.1) LVIDd: 4.1 cm (3.9 - 5.3) LVPWd: 1.7 cm (0.6 - 1.1) IVSs: 2.5 cm LVIDs: 3.3 cm LVPWs: 1.7 cm Ao Diam: 3.3 cm (2.0 - 3.7) AV Cusp: 2.0 cm (1.5 - 2.6) LA Diam: 3.7 cm (2.7 - 3.8) MV EXCURSION: 22.646 mm (> 18.000) MV EF SLOPE: 62 mm/s (70 - 150) EPSS: 0.3 cm MV E Cholo: 0.42 m/s MV DecT: 242 ms MV A [place]: 0.71 m/s MV E/A Ratio: 0.59 RAP: 5.00 mmHg RVSP: 17.49 mmHg FINDINGS -------- Sinus rhythm. This was a technically good study. The left ventricular size is normal. There is moderate concentric left ventricular hypertrophy. Overall left ventricular systolic function is normal with, an EF between 55 - 60 %. The right ventricle is normal in size and function. The left atrium is normal in size. The right atrium is normal in size. The aortic valve is trileaflet, and appears structurally normal. No aortic stenosis or regurgitation. There is trace mitral regurgitation. Trace tricuspid regurgitation present. The right ventricular systolic pressure, as measured by Doppler, is 17.49mmHg. Pulmonic valve appears structurally normal. The aortic root, ascending aorta and aortic arch are normal. The pericardium is normal. CONCLUSIONS -------- 1. Sinus rhythm. 2. There is trace mitral regurgitation. 3. Trace tricuspid regurgitation present. 4. The right ventricular systolic pressure, as measured by Doppler, is 17.49mmHg. 5. Pulmonic valve appears structurally normal. 6. The aortic root, ascending aorta and aortic arch are normal. 7. The pericardium is normal. 8. This was a technically good study. 9. The left ventricular size is normal. 10. There is moderate concentric left ventricular hypertrophy. 11. Overall left ventricular systolic function is normal with, an EF between 55 - 60 %. 12. The right ventricle is normal in size and function. 13. The left atrium is normal in size. 14. The right atrium is normal in size. 15. The aortic valve is trileaflet, and appears structurally normal. No aortic stenosis or regurgitation. SUPERVISOR EDGING: Amy Martin RDCS
[2016-11-04 13:30] LABS: Appearance,Urine Cloudy (Clear); Bacteria,Urine Rare /hpf; Bilirubin,Urine Negative (Negative); Glucose,Urine (UA) 3+ (Negative); Ketones,Urine Negative (Negative); Leukocyte Esterase,Urine Negative (Negative); Mucus,Urine Rare /hpf; Nitrite,Urine Negative (Negative); PH, Urine 5.5 (5.0-8.0); Particle Count 1265; Protein,Urine Negative (Negative); Specific Gravity,Urine 1.011 (1.001-1.035); Squamous Epithelial Cell,Urine <1 /hpf (0-4); UA Billing (MACRO vs. MICRO) MICRO; Uric Acid Crystals,Urine Few /hpf; Urobilinogen,Urine <2.0 mg/dL (<2.0); WBC,Urine 1 /hpf (0-5)
--- NOTE | 2016-11-04 14:49 | P.PN ---
Subjective Principal diagnosis: ARF This is a pleasant 1-year-old gentleman who follows with Dr. aPtrick in the office. Has known history of hyperlipidemia, coronary artery disease, prior UT and prior stenting, most recent to the RCA in 2013, statin-induced myopathy. Patient presented to the emergency department with complaints of chest pressure. He also complained of nausea and vomiting that started yesterday. This morning around 4 AM he was in bed after vomiting and developed pressure in his chest. Upon presentation, EKG shows sinus rhythm with prior inferior UT and nonspecific ST-T wave abnormalities, similar to previous. Laboratory values showed elevated white blood cell count 18.9, BUN of 29, creatinine 4.73 which is significantly elevated from his baseline and a BNP of 2270. First troponin came back to be abnormal at 0.781. Subsequent troponins of 0.814 and 0.719. His d-dimer was elevated however subsequent VQ scan showed no evidence for PE. Chest x-ray showed no acute process. Blood pressure was elevated on admission however patient did not take his morning blood pressure medications at that time. Labs this morning show improvement in renal function with a BUN of 39 and creatinine 2.78, nephrology has been consult it. She underwent echocardiogram shows normal LV systolic function with an ejection fraction of 55 -60% without significant valvular abnormalities. He remains on a heparin drip and IV fluids going at 125 mL an hour. Upon examination, patient is resting comfortably in bed. He is feeling quite a bit better today denies further complaints of chest pressure which was relieved on admission. His appetite has improved and he has no further complaints of nausea or vomiting. Objective - Vital Signs Vital signs: Vital Signs Temp 97.2 F L 11/04/16 12:00 Pulse 102 H 11/04/16 12:00 Resp 16 11/04/16 12:00 BP 131/74 11/04/16 12:00 Pulse Ox 95 11/04/16 12:00 Intake & Output 11/03/16 11/04/16 11/04/16 18:59 06:59 18:59 Intake Total 277.328 6114.122 1455.959 Output Total 800 600 Balance 059.785 8355.122 855.959 Weight 99.79 kg 99.4 kg Intake: IV 2360 1158 Heparin Sodium,Porcine/ 360 158 D5w Pmx 25,000 unit In Dextrose/Water 1 500ml. bag @ 10 UNITS/KG/HR 19. 95 mls/hr IV .Q24H [facility] Rx #:[id number] Sodium Chloride 0.9% 1, 2000 1000 000 ml @ 125 mls/hr IV . Q8H [facility] Rx#:[id number] Intake, IV Titration 141.978 293.122 60.959 Amount Heparin Sodium,Porcine/ 141.978 293.122 60.959 D5w Pmx 25,000 unit In Dextrose/Water 1 500ml. bag @ 10 UNITS/KG/HR 19. 95 mls/hr IV .Q24H [facility] Rx #:[id number] Oral 436 100 237 Output: Urine 800 600 Other: Voiding Method Urinal - Exam PHYSICAL EXAMINATION: HEENT: Head is atraumatic, normocephalic. Pupils equal, round. Neck is supple. There is no elevated jugular venous pressure. HEART EXAMINATION: Heart sounds regular, S1 and S2 normal. No murmur or gallop heard. CHEST EXAMINATION: Lungs are clear to auscultation and precussion. No chest wall tenderness is noted on palpation or with deep breathing. ABDOMEN: Soft, nontender. Bowel sounds are heard. No organomegaly noted. EXTREMITIES: 2+ peripheral pulses with no evidence of peripheral edema and no calf tenderness noted. NEUROLOGIC patient is awake, alert and oriented x3. - Labs CBC & Chem 7: 11/04/16 05:52 11/04/16 05:52 Labs: Abnormal Lab Results - Last 24 Hours (Table) 11/03/16 11/03/16 11/03/16 Range/Units 15:07 17:00 21:05 WBC (3.8-10.6) k/uL Neutrophils # (1.3-7.7) k/uL APTT 30.1 H (22.0-30.0) sec Sodium (137-145) mmol/L Carbon Dioxide (22-30) mmol/L BUN (9-20) mg/dL Creatinine (0.66-1.25) mg/dL Glucose (74-99) mg/dL Magnesium (1.6-2.3) mg/dL Total Creatine Kinase 982 H 1198 H (55-170) U/L CK-MB (CK-2) 23.1 H* 27.1 H* (0.0-2.4) ng/mL Troponin I 0.814 H* 0.719 H* (0.000-0.034) ng/mL Triglycerides (<150) mg/dL Cholesterol (<200) mg/dL LDL Cholesterol, Calc (0-99) mg/dL Urine Glucose (UA) (Negative) Uric Acid Crystals (None) /hpf Urine Bacteria (None) /hpf Urine Mucus (None) /hpf 11/04/16 11/04/16 11/04/16 Range/Units 01:01 05:52 05:52 WBC 13.1 H (3.8-10.6) k/uL Neutrophils # 9.9 H (1.3-7.7) k/uL APTT 49.7 H (22.0-30.0) sec Sodium 135 L (137-145) mmol/L Carbon Dioxide 21 L (22-30) mmol/L BUN 39 H (9-20) mg/dL Creatinine 2.78 H (0.66-1.25) mg/dL Glucose 107 H (74-99) mg/dL Magnesium 2.6 H (1.6-2.3) mg/dL Total Creatine Kinase (55-170) U/L CK-MB (CK-2) (0.0-2.4) ng/mL Troponin I (0.000-0.034) ng/mL Triglycerides 191 H (<150) mg/dL Cholesterol 200 H (<200) mg/dL LDL Cholesterol, Calc 107 H (0-99) mg/dL Urine Glucose (UA) (Negative) Uric Acid Crystals (None) /hpf Urine Bacteria (None) /hpf Urine Mucus (None) /hpf 11/04/16 11/04/16 Range/Units 05:52 12:40 WBC (3.8-10.6) k/uL Neutrophils # (1.3-7.7) k/uL APTT 41.6 H (22.0-30.0) sec Sodium (137-145) mmol/L Carbon Dioxide (22-30) mmol/L BUN (9-20) mg/dL Creatinine (0.66-1.25) mg/dL Glucose (74-99) mg/dL Magnesium (1.6-2.3) mg/dL Total Creatine Kinase (55-170) U/L CK-MB (CK-2) (0.0-2.4) ng/mL Troponin I (0.000-0.034) ng/mL Triglycerides (<150) mg/dL Cholesterol (<200) mg/dL LDL Cholesterol, Calc (0-99) mg/dL Urine Glucose (UA) 3+ H (Negative) Uric Acid Crystals Few H (None) /hpf Urine Bacteria Rare H (None) /hpf Urine Mucus Rare H (None) /hpf Assessment and Plan Plan: Assessment and plan #1 elevated troponin, which is likely related to acute renal failure #2 acute renal failure #3 hypertension #4 hyperlipidemia #5 coronary artery disease with prior stenting #6 history of statin induced myopathy #7 chest pressure #8 dehydration From cardiology's perspective, continue to hydrate the patient. Patient has had no recurrence of chest pressure. Discontinue IV heparin. We will continue to follow the patient and provide further recommendations accordingly. LADLE REPAIRMAN note has been reviewed, I agree with a documented findings and plan of care. Patient was seen and examined.
[2016-11-04] MEDS: HEPARIN SODIUM,PORCINE 5,000 UNIT/ML 1 ML VIAL SQ SCH ×2 (16:12→23:21)
[2016-11-04] MEDS: AMITRIPTYLINE HCL 50 MG TAB PO SCH (20:33)
[2016-11-04 23:56] VITALS: RESP 16
[2016-11-05] MEDS: LORazepam 2 MG/ML INJ IV PRN ×2 (03:28→11:39)
[2016-11-05] MEDS: SODIUM CHLORIDE 0.9% 1,000 ML IV SCH (05:48)
[2016-11-05 05:54] LABS: Basophils % (A) 1 %; CH 31.7; CHCM 35.6; Eosinophils # (A) 0.1 k/uL (0-0.7); Eosinophils % (A) 1 %; HCT 38.2 % (39.0-53.0); HDW 2.68; HGB 13.2 gm/dL (13.0-17.5); Luc # (Auto) 0.14; Luc % (Auto) 2; Lymphocytes # (A) 1.8 k/uL (1.0-4.8); Lymphocytes % (A) 28 %; MCH 31.1 pg (25.0-35.0); MCHC 34.7 g/dL (31.0-37.0); MCV 89.6 fL (80.0-100.0); Mean Platelet Volume 7.4; Monocytes # (A) 0.6 k/uL (0-1.0); Monocytes % (A) 9 %; Neutrophils # (A) 3.9 k/uL (1.3-7.7); Neutrophils % (A) 60 %; RBC 4.26 m/uL (4.30-5.90); RDW 14.4 % (11.5-15.5); WBC 6.6 k/uL (3.8-10.6); WBC (Perox) 6.92
[2016-11-05 06:04] LABS: ALT 34 U/L (21-72); AST 31 U/L (17-59); Alkaline Phosphatase 75 U/L (38-126); Anion Gap 9 mmol/L; Blood Urea Nitrogen 27 mg/dL (9-20); Calcium 9.4 mg/dL (8.4-10.2); Carbon Dioxide 23 mmol/L (22-30); Chloride 107 mmol/L (98-107); Creatine Kinase 528 U/L (55-170); Glucose 98 mg/dL (74-99); Non-African American GFR(MDRD) 54 (>60 ml/min/1.73 sqM); Potassium 4.5 mmol/L (3.5-5.1); Sodium 139 mmol/L (137-145); Total Bilirubin 0.3 mg/dL (0.2-1.3)
[2016-11-05] MEDS: NITROGLYCERIN OINT 1 INCH/GM PACKET TOPICAL SCH ×3 (06:28→11:45)
[2016-11-05] MEDS: LEVOTHYROXINE 75 MCG TAB PO SCH (06:30)
[2016-11-05] MEDS ORDERED: PANTOPRAZOLE 40 MG TABLET PO SCH (07:30)
[2016-11-05] MEDS: HEPARIN SODIUM,PORCINE 5,000 UNIT/ML 1 ML VIAL SQ SCH (08:44)
[2016-11-05] MEDS: ESCITALOPRAM 10 MG TAB PO SCH (08:45)
[2016-11-05] MEDS: ASPIRIN 325 MG TAB PO SCH (08:45)
[2016-11-05] MEDS: cloNIDine HCL 0.1 MG TAB PO SCH (08:45)
--- NOTE | 2016-11-05 10:09 | P.PN ---
Subjective Patient is seen in follow-up for acute kidney injury. Creatinine was 4.7 on admission and is down to 1.33 today. Patient presented with nausea and vomiting and is currently maintained on IV fluids. He was also having chest pain which is now resolved. Currently sitting up in bed. No active complaints at this time. Vital signs are stable. General: The patient appeared well nourished and normally developed. HEENT: Head exam is unremarkable. Neck is without jugular venous distension. LUNGS: Lungs are clear to auscultation and percussion. Breath sounds decreased. HEART: Rate and Rhythm are regular. First and second heart sounds normal. No murmurs, rubs or gallops. ABDOMEN: Abdominal exam reveals normal bowel sounds. Non-tender and non- distended. No evidence of peritonitis. EXTREMITITES: No clubbing, cyanosis, or edema. Objective - Vital Signs Vital signs: Vital Signs Temp 97.4 F L 11/05/16 03:30 Pulse 86 11/05/16 03:30 Resp 16 11/05/16 03:30 BP 136/78 11/05/16 03:30 Pulse Ox 97 11/05/16 09:14 Intake & Output 11/04/16 11/05/16 11/05/16 18:59 06:59 18:59 Intake Total 6907.327 7007 180 Output Total 900 625 Balance 864.769 1320 180 Weight 100.8 kg Intake: IV 1158 1500 Heparin Sodium,Porcine/ 158 D5w Pmx 25,000 unit In Dextrose/Water 1 500ml. bag @ 10 UNITS/KG/HR 19. 95 mls/hr IV .Q24H [facility] Rx #:[id number] Sodium Chloride 0.9% 1, 1000 1500 000 ml @ 125 mls/hr IV . Q8H [facility] Rx#:[id number] Intake, IV Titration 60.959 Amount Heparin Sodium,Porcine/ 60.959 D5w Pmx 25,000 unit In Dextrose/Water 1 500ml. bag @ 10 UNITS/KG/HR 19. 95 mls/hr IV .Q24H CYND[facility] Rx #:[id number] Oral 474 1500 180 Output: Urine 900 625 Other: Voiding Method Urinal # Voids 1 # Bowel Movements 1 - Labs CBC & Chem 7: 11/05/16 05:31 11/05/16 05:31 Labs: Abnormal Lab Results - Last 24 Hours (Table) 11/04/16 11/05/16 11/05/16 Range/Units 12:40 05:31 05:31 RBC 4.26 L (4.30-5.90) m/uL Hct 38.2 L (39.0-53.0) % BUN 27 H (9-20) mg/dL Creatinine 1.33 H (0.66-1.25) mg/dL Creatine Kinase 528 H (55-170) U/L Total Protein 6.0 L (6.3-8.2) g/dL Urine Glucose (UA) 3+ H (Negative) Uric Acid Crystals Few H (None) /hpf Urine Bacteria Rare H (None) /hpf Urine Mucus Rare H (None) /hpf Assessment and Plan Plan: Assessment: #1. Nonoliguric acute kidney injury mostly prerenal from intravascular volume depletion from vomiting further worsened with the use of Cozaar. Creatinine was 4.73 on admission and is down to 1.33 today. UA from earlier this month was benign. #2. Benign hypertension. Blood pressures are now on the lower side. #3. Chest pain with elevated troponin levels. Cardiology following. He does have history of coronary artery disease with stent placement in the past. #4. Mild rhabdomyolysis with CK level of 1198. Not on statin. No falls or crush injuries. CK level trending down. #5. Non-gap metabolic acidosis from acute kidney injury as well as IV fluids. Improved. Plan: Hep-Lock IV fluids. Hold clonidine for systolic blood pressure less than 120. May resume Cozaar if systolic blood pressure >140. Potential discharge today - to f/u as outpatient in 2-3 weeks.
[2016-11-05] MEDS: FERROUS SULFATE 325 MG TAB PO SCH (11:40)
[2016-11-05] MEDS: CHOLECALCIFEROL 1,000 UNIT TAB PO SCH (11:40)
--- NOTE | 2016-11-05 12:57 | P.PN ---
Subjective Principal diagnosis: ARF This is a pleasant 1-year-old gentleman who follows with Dr. Patrick in the office. Has known history of hyperlipidemia, coronary artery disease, prior IN and prior stenting, most recent to the RCA in 2013, statin-induced myopathy. Patient presented to the emergency department with complaints of chest pressure. He also complained of nausea and vomiting that started yesterday. This morning around 4 AM he was in bed after vomiting and developed pressure in his chest. Upon presentation, EKG shows sinus rhythm with prior inferior IN and nonspecific ST-T wave abnormalities, similar to previous. Laboratory values showed elevated white blood cell count 18.9, BUN of 29, creatinine 4.73 which is significantly elevated from his baseline and a BNP of 2270. First troponin came back to be abnormal at 0.781. Subsequent troponins of 0.814 and 0.719. His d-dimer was elevated however subsequent VQ scan showed no evidence for PE. Chest x-ray showed no acute process. Blood pressure was elevated on admission however patient did not take his morning blood pressure medications at that time. Labs this morning show continued improvement in renal function with a BUN of 27 and creatinine 1.33, nephrology is on consult. He underwent echocardiogram shows normal LV systolic function with an ejection fraction of 55 -60% without significant valvular abnormalities. He remains on IV fluids going at 125 mL an hour. Upon examination, patient is sitting up on the edge of the bed. He is feeling quite a bit better today denies further complaints of chest pressure which was relieved on admission. His appetite has improved and he has no further complaints of nausea or vomiting. He has been up ambulating in the halls without complaints of shortness of breath, dizziness, or chest discomfort. Objective - Vital Signs Vital signs: Vital Signs Temp 97.9 F 11/05/16 08:00 Pulse 76 11/05/16 08:00 Resp 16 11/05/16 08:00 BP 125/82 11/05/16 08:00 Pulse Ox 97 11/05/16 09:14 Intake & Output 11/04/16 11/05/16 11/05/16 18:59 06:59 18:59 Intake Total 3860.974 6885 180 Output Total 900 625 Balance 461.382 2227 180 Weight 100.8 kg Intake: IV 1158 1500 Heparin Sodium,Porcine/ 158 D5w Pmx 25,000 unit In Dextrose/Water 1 500ml. bag @ 10 UNITS/KG/HR 19. 95 mls/hr IV .Q24H [facility] Rx #:[id number] Sodium Chloride 0.9% 1, 1000 1500 000 ml @ 125 mls/hr IV . Q8H [facility] Rx#:[id number] Intake, IV Titration 60.959 Amount Heparin Sodium,Porcine/ 60.959 D5w Pmx 25,000 unit In Dextrose/Water 1 500ml. bag @ 10 UNITS/KG/HR 19. 95 mls/hr IV .Q24H [facility] Rx #:[id number] Oral 474 1500 180 Output: Urine 900 625 Other: Voiding Method Urinal # Voids 1 # Bowel Movements 1 - Exam PHYSICAL EXAMINATION: HEENT: Head is atraumatic, normocephalic. Pupils equal, round. Neck is supple. There is no elevated jugular venous pressure. HEART EXAMINATION: Heart sounds regular, S1 and S2 normal. No murmur or gallop heard. CHEST EXAMINATION: Lungs reveal expiratory wheezing to bilateral lower lobes. No chest wall tenderness is noted on palpation or with deep breathing. ABDOMEN: Soft, nontender. Bowel sounds are heard. No organomegaly noted. EXTREMITIES: 2+ peripheral pulses with no evidence of peripheral edema and no calf tenderness noted. NEUROLOGIC patient is awake, alert and oriented x3. - Labs CBC & Chem 7: 11/05/16 05:31 11/05/16 05:31 Labs: Abnormal Lab Results - Last 24 Hours (Table) 11/04/16 11/05/16 11/05/16 Range/Units 12:40 05:31 05:31 RBC 4.26 L (4.30-5.90) m/uL Hct 38.2 L (39.0-53.0) % BUN 27 H (9-20) mg/dL Creatinine 1.33 H (0.66-1.25) mg/dL Creatine Kinase 528 H (55-170) U/L Total Protein 6.0 L (6.3-8.2) g/dL Urine Glucose (UA) 3+ H (Negative) Uric Acid Crystals Few H (None) /hpf Urine Bacteria Rare H (None) /hpf Urine Mucus Rare H (None) /hpf Assessment and Plan Plan: Assessment and plan #1 elevated troponin, which is likely related to acute renal failure #2 acute renal failure #3 hypertension #4 hyperlipidemia #5 coronary artery disease with prior stenting #6 history of statin induced myopathy #7 chest pressure #8 dehydration From cardiology's perspective, patient is stable for discharge home. He will follow-up in the office with Dr. Patrick as an outpatient. PROCESS DEVELOPMENT ENGINEER note has been reviewed, I agree with a documented findings and plan of care. Patient was seen and examined.
--- NOTE | 2016-11-05 13:44 | P.DS ---
Providers Date of admission: 11/03/16 09:46 Expected date of discharge: 11/05/16 Attending physician: Miki Nava Consults: 11/03/16 09:45 Consult Physician Urgent Consulting Provider: Martin Jain Consult Reason/Comments: nstemi Do you want consulting provider notified?: Already Contacted Consult Physician Urgent Consulting Provider: Rafaela Browne Consult Reason/Comments: arf Do you want consulting provider notified?: Yes Primary care physician: Miki Nava [facility] Course: 61-year-old male who presented to the emergency room on 11/03/2016 with a chief complaint of chest pain and nausea. The patient states he has had nausea, vomiting, and diarrhea since Tuesday. He stated he began to experience chest pain this morning and came to the emergency room for evaluation. In the emergency room a chest x-ray was completed which was unremarkable. An EKG was performed which showed sinus rhythm with Q waves in the inferior leads. His troponin was elevated at 0.781 and his CK-MB was elevated at 16.2. His d-dimer was elevated at 1.05. A VQ scan was performed which was negative for pulmonary embolism. The patient has a history of chronic kidney disease. His creatinine was elevated on admission of 4.73 with a BUN of 29. His creatinine on 10-18-16 was 1.80. The patient had a recent admission to the hospital from 10/09/2016 to 2016 for nausea, vomiting, and acute kidney injury. The patient was given IV fluids and his creatinine returned to the baseline. The patient has a history of irritable bowel syndrome and persistant GI symptoms of nausea, vomiting, and diarrhea for at least five years. The patient takes Bentyl and Lomotil at home. He underwent a GI workup earlier this year. EGD was performed in May of 2016 which showed mild antral gastritis, small hiatal hernia, and no evidence of peptic ulcer disease. The patient has a history of coronary artery disease. He states he has had "10 heart attacks". He has had 2 stents placed in 2007 and 2013 per the patient. His last available echo is from 05/14/16 which showed an EF between 50-55% and moderate left ventricular hypertrophy. He also has a history of hypertension, chronic renal disease, osteoarthritis, and hyperlipidemia. He has a history of chronic back pain. The patient uses medical marijuana. Upon reviewing old records, the patient also has a history of opioid dependency and abuse for many years . The patient was started on a heparin drip and admitted to the hospital under the care of Dr. Nava. Consults were placed to cardiology and nephrology. Cardiology felt that his EKG did not show a new NSTEMI but rather it was from a prior CA. His heparin drip was discontinued. The patient has remained chest pain-free. His nausea and vomiting have subsided. He had leg cramps initially which were most likely due to dehydration and have resolved at this time. The patient does not take a statin due to myopathy. He received IV hydration at 125 mL an hour during his admission. His creatinine is 1.3 this morning and his acute kidney injury has resolved. The patient is stable for discharge per Dr. Nava. He is to follow-up in the office. Per Dr. Nava, the patient may have a prescription for Ativan 1 mg to take as needed and the patient was informed that this would be only a temporary medication. DISCHARGE DIAGNOSIS: -Non-ST elevated myocardial infarction, present on admission, ruled out by cardiology, EKG shows PRIOR inferior CA and nonspecific ST-T wave abnormalities -Acute kidney injury, creatinine 4.73 on admission, resolved -Metabolic acidosis, secondary to acute kidney injury, resolving -Leg cramps, electrolytes within normal range, suspect due to dehydration secondary to nausea, vomiting, and diarrhea, resolved -Coronary artery disease with previous stenting 2 -Elevated d-dimer, present on admission, VQ scan negative for PE -Leukocytosis, present on admission, no evidence of sepsis, improving -History of chronic pain with opioid dependency and abuse per previous records -Essential hypertension -Hyperlipidemia -Obesity, BMI 30.7 The above impression and plan of care have been discussed and directed by signing physician. Viv Barragan, nurse practitioner, acting as scribe for signing physician. Patient Condition at Discharge: Stable Plan - Discharge Summary New Discharge Prescriptions: New LORazepam [Ativan] 1 mg PO BID PRN #20 tab PRN Reason: Anxiety Continue cloNIDine HCL [Clonidine HCl] 0.1 mg PO TID Levothyroxine Sodium [Synthroid] 75 mcg PO DAILY Omeprazole 20 mg PO DAILY Amitriptyline HCl [Elavil] 50 mg PO HS Losartan [Cozaar] 50 mg PO DAILY Dicyclomine [Bentyl] 20 mg PO AC-TID PRN PRN Reason: Abdominal Cramping Aspirin [Adult Low Dose Aspirin EC] 81 mg PO DAILY Nitroglycerin Sl Tabs [Nitrostat] 0.4 mg SUBLINGUAL Q5M PRN PRN Reason: Chest Pain Diphenoxylate HCl/Atropine [Lomotil 2.5-0.025 mg Tablet] 1 tab PO Q8H PRN PRN Reason: Diarrhea Ondansetron Odt [Zofran ODT] 4 mg PO Q8HR PRN #10 tab PRN Reason: Nausea Ferrous Sulfate [Iron (65 MG Elemental)] 325 mg PO DAILY Cholecalciferol [Vitamin D3] 2,000 unit PO DAILY Escitalopram [Lexapro] 30 mg PO DAILY Promethazine HCl 12.5 mg PO Q6H PRN PRN Reason: Nausea Discharge Medication List cloNIDine HCL [Clonidine HCl] 0.1 mg PO TID 11/16/15 [History] Levothyroxine Sodium [Synthroid] 75 mcg PO DAILY 05/04/16 [History] Omeprazole 20 mg PO DAILY 05/04/16 [History] Amitriptyline HCl [Elavil] 50 mg PO HS 05/14/16 [History] Dicyclomine [Bentyl] 20 mg PO AC-TID PRN 05/31/16 [History] Losartan [Cozaar] 50 mg PO DAILY 05/31/16 [History] Aspirin [Adult Low Dose Aspirin EC] 81 mg PO DAILY 06/24/16 [History] Diphenoxylate HCl/Atropine [Lomotil 2.5-0.025 mg Tablet] 1 tab PO Q8H PRN [History] Nitroglycerin Sl Tabs [Nitrostat] 0.4 mg SUBLINGUAL Q5M PRN 07/19/16 [History] Ondansetron Odt [Zofran ODT] 4 mg PO Q8HR PRN #10 tab 09/10/16 [Rx] Cholecalciferol [Vitamin D3] 2,000 unit PO DAILY 09/23/16 [History] Ferrous Sulfate [Iron (65 MG Elemental)] 325 mg PO DAILY 09/23/16 [History] Escitalopram [Lexapro] 30 mg PO DAILY 10/07/16 [History] Promethazine HCl 12.5 mg PO Q6H PRN 10/07/16 [History] LORazepam [Ativan] 1 mg PO BID PRN #20 tab 11/05/16 [Rx] Follow up Appointment(s)/Referral(s): Miki Nava DO [Primary Care Provider] - 1-2 days Kashmir Patrick MD [STAFF PHYSICIAN] - 1 Week Discharge Disposition: HOME SELF-CARE
[2016-11-05 14:42] VITALS: BP 107/63; PULSE 74; TEMP 98
== END 2016-11-05 15:02 | disposition home or self-care (01) | DRG 683 ==
LOC: EC 08:08 → 6SEL 09:46
PROVIDERS: ADMIT Family Medicine; ATTEND Family Medicine
DX: N17.9 Acute kidney failure, unspecified (principal); E87.2 Acidosis; I13.10 Hypertensive heart and chronic kidney disease without heart failure, with stage 1 through stage 4 chronic kidney disease, or unspecified chronic kidney disease; M62.82 Rhabdomyolysis; F11.20 Opioid dependence, uncomplicated; I25.2 Old myocardial infarction; E86.0 Dehydration; T46.5X5A Adverse effect of other antihypertensive drugs, initial encounter; R07.9 Chest pain, unspecified; R74.8 Abnormal levels of other serum enzymes; R00.0 Tachycardia, unspecified; M48.06 Spinal stenosis, lumbar region; M54.41 Lumbago with sciatica, right side; M54.42 Lumbago with sciatica, left side; F12.90 Cannabis use, unspecified, uncomplicated; M19.90 Unspecified osteoarthritis, unspecified site; E66.9 Obesity, unspecified; R11.2 Nausea with vomiting, unspecified; K58.0 Irritable bowel syndrome with diarrhea; G89.29 Other chronic pain; E07.9 Disorder of thyroid, unspecified; I25.10 Atherosclerotic heart disease of native coronary artery without angina pectoris; N18.9 Chronic kidney disease, unspecified; E78.5 Hyperlipidemia, unspecified; K21.9 Gastro-esophageal reflux disease without esophagitis; K29.60 Other gastritis without bleeding; D72.829 Elevated white blood cell count, unspecified; K44.9 Diaphragmatic hernia without obstruction or gangrene; Z88.8 Allergy status to other drugs, medicaments and biological substances; Z87.01 Personal history of pneumonia (recurrent); Z87.81 Personal history of (healed) traumatic fracture; Z87.19 Personal history of other diseases of the digestive system; Z79.899 Other long term (current) drug therapy; Z79.82 Long term (current) use of aspirin; Z95.5 Presence of coronary angioplasty implant and graft; Z82.49 Family history of ischemic heart disease and other diseases of the circulatory system; Z83.3 Family history of diabetes mellitus; Z86.19 Personal history of other infectious and parasitic diseases; Z87.09 Personal history of other diseases of the respiratory system; Z86.69 Personal history of other diseases of the nervous system and sense organs; Z87.891 Personal history of nicotine dependence; Z90.49 Acquired absence of other specified parts of digestive tract; Z98.1 Arthrodesis status
CPT/HCPCS: 36415; 71020; 78582; 80053; 80061; 81001; 82150; 82272; 82550; 82553; 83690; 83735; 83880; 84484; 85025; 85379; 85610; 85730; 93005; 93306; 94760; 96361; 96365; 96375; 96376; 99291

== ENCOUNTER 2016-12-16 12:55 | Inpatient (IN) | payer MEDICARE ==
[2016-12-16] MEDS ORDERED: ONDANSETRON 4 MG/2 ML VIAL IVP STA (13:39)
[2016-12-16] MEDS ORDERED: FAMOTIDINE 20 MG/2 ML VIAL IV STA (13:39)
--- NOTE | 2016-12-16 13:47 | ED ---
General Adult HPI - General Chief complaint: Nausea/Vomiting/Diarrhea Stated complaint: Vomiting/Abd Pain Time Seen by Provider: 12/16/16 13:30 Source: patient, RN notes reviewed Mode of arrival: ambulatory Limitations: no limitations - History of Present Illness Initial comments: 61-year-old male presents emergency Department chief complaint of nausea vomiting and abdominal cramping. Patient states this happened he all day yesterday and into the night. Patient states he feels as if on Tuesday he pushed himself too far when he went to set up a pierced hand. Patient states that he just feels gassy. Patient states he has not had a bowel movement in 3 days either. Patient was concerned due to the pain in the gas so he thought that he should be evaluated.Patient denies any recent fever, chills, shortness of breath, chest pain, back pain, numbness or tingling, dysuria or hematuria, constipation or diarrhea, headaches or visual changes, or any other current symptoms. - Related Data Home Medications Medication Instructions Recorded Confirmed cloNIDine HCL [Clonidine HCl] 0.1 mg PO TID 11/16/15 12/16/16 Levothyroxine Sodium [Synthroid] 75 mcg PO DAILY 05/04/16 12/16/16 Omeprazole 20 mg PO DAILY 05/04/16 12/16/16 Amitriptyline HCl [Elavil] 50 mg PO HS 05/14/16 12/16/16 Dicyclomine [Bentyl] 20 mg PO AC-TID PRN 05/31/16 12/16/16 Losartan [Cozaar] 50 mg PO DAILY 05/31/16 12/16/16 Aspirin [Adult Low Dose Aspirin EC] 81 mg PO DAILY 06/24/16 12/16/16 Diphenoxylate HCl/Atropine 1 tab PO Q8H PRN 07/19/16 12/16/16 [Lomotil 2.5-0.025 mg Tablet] Nitroglycerin Sl Tabs [Nitrostat] 0.4 mg SUBLINGUAL Q5M PRN 07/19/16 12/16/16 Cholecalciferol [Vitamin D3] 2,000 unit PO DAILY 09/23/16 12/16/16 Escitalopram [Lexapro] 30 mg PO DAILY 12/16/16 12/16/16 Previous Rx's Medication Instructions Recorded Ondansetron Odt [Zofran ODT] 4 mg PO Q8HR PRN #10 tab 09/10/16 Allergies Allergy/AdvReac Type Severity Reaction Status Date / Time Beta-Blockers Allergy Rash/Hives Verified 12/16/16 13:52 (Beta-Adrenergic Bloc paroxetine HCl [From Paxil] AdvReac Unknown Abdominal Verified 12/16/16 13:52 Pain Review of Systems ROS Statement: Those systems with pertinent positive or pertinent negative responses have been documented in the HPI. ROS Other: All systems not noted in ROS Statement are negative. Past Medical History Past Medical History: Coronary Artery Disease (CAD), Chest Pain / Angina, GERD/ Reflux, Hyperlipidemia, Hypertension, Myocardial Infarction ([place]), Musculoskeletal Disorder, Osteoarthritis (OA), Pneumonia, Renal Disease, Thyroid Disorder Additional Past Medical History / Comment(s): Pt recently admitted to [facility] on 10/09/16 with abdominal pain, nausea/vomiting and dehydration. Other hx: Pt states he has had numerous MIs, lumbar sacral spinal stenosis, chronic low back pain with bilateral sciatica, pinched nerves in back, DIVERTICULITIS, IBS, bronchitis, migraines, numbness/tingling bilateral feet. Last Myocardial Infarction Date:: 2013 History of Any Multi-Drug Resistant Organisms: None Reported Past Surgical History: Back Surgery, Cholecystectomy, Heart Catheterization With Stent, Hernia Repair, Orthopedic Surgery Additional Past Surgical History / Comment(s): COLONOSCOPY, EGD, ORIF LT ANKLE. BACK SURGERIES fusion L3-L5, LT HAND SURGERY, RT KNEE ARTHROSC, RT ELBOW SURG, LUMBAR SPINE CYST REMOVAL AT L2 IN 2013, HIATAL HERNIA REPAIR, right shoulder arthroscopy, back injections. Past Anesthesia/Blood Transfusion Reactions: No Reported Reaction Date of Last Stent Placement:: 2013 Past Psychological History: No Psychological Hx Reported Smoking Status: Former smoker Past Alcohol Use History: None Reported Past Drug Use History: Marijuana - Past Family History Mother Family Medical History: Thyroid Disorder Father Family Medical History: Diabetes Mellitus, Myocardial Infarction ([place]) Additional Family Medical History / Comment(s): TRIPLE BYPASS, [place] in his 50's or 60's. from MVA when he was in his 80's Sister(s) Family Medical History: Cancer, Thyroid Disorder Additional Family Medical History / Comment(s): SKIN CA General Exam - General Exam Comments Initial Comments: General: The patient is awake and alert, in no distress, and does not appear acutely ill. Eye: Pupils are equal, round and reactive to light, extra-ocular movements are intact; there is normal conjunctiva bilaterally. No signs of icterus. Ears, nose, mouth and throat: There are moist mucous membranes and no oral lesions. Neck: The neck is supple, there is no tenderness. Cardiovascular: There is a regular rate and rhythm. No murmur, rub or gallop is appreciated. Respiratory: Lungs are clear to auscultation, respirations are non-labored, breath sounds are equal. No wheezes, stridor, rales, or rhonchi. Gastrointestinal: Soft, non-distended, non-tender abdomen without masses or organomegaly noted. There is no rebound or guarding present. No CVA tenderness. Bowel sounds are unremarkable. Back: There is no tenderness to palpation in the midline. There is no obvious deformity. No rashes noted. Musculoskeletal: Normal ROM, no tenderness, There is no pedal edema. There is no calf tenderness or swelling. Sensation intact. Pulses equal bilaterally 2+. Neurological: CN II-XII intact, There are no obvious motor or sensory deficits. Coordination appears grossly intact. Speech is normal. Skin: Skin is warm and dry and no rashes or lesions are noted. Psychiatric: Cooperative, appropriate mood & affect, normal judgment. Limitations: no limitations Course Vital Signs 12/16/16 12/16/16 12/16/16 13: 13:50 15:37 Temperature 97.8 F 98.1 F 99.3 F Pulse Rate 95 98 89 Respiratory 20 18 18 Rate Blood Pressure 181/94 152/99 143/96 O2 Sat by Pulse 98 98 95 Oximetry Medical Decision Making - Medical Decision Making 61-year-old male presents to the emergency Department chief complaint abdominal pain. At this time the patient's lab work has been reviewed. At this time patient does appear to have acute on chronic kidney injury. At this time we will admit the patient for IV hydration. As well as leukocytosis which is most likely reactive. The CAT scan has been reviewed. Patient is agreement this plan all questions have been answered. Patient will be admitted at this time. - Lab Data Result diagrams: 12/16/16 13:50 12/16/16 13:50 Lab Results 12/16/16 12/16/16 12/16/16 Range/Units 13:50 13:50 14:35 WBC 20.4 H (3.8-10.6) k/uL RBC 5.43 (4.30-5.90) m/uL Hgb 16.3 D (13.0-17.5) gm/dL Hct 47.1 (39.0-53.0) % MCV 86.7 (80.0-100.0) fL MCH 30.1 (25.0-35.0) pg MCHC 34.7 (31.0-37.0) g/dL RDW 13.2 (11.5-15.5) % Plt Count 311 (150-450) k/uL Neutrophils % 83 % Lymphocytes % 11 % Monocytes % 5 % Eosinophils % 1 % Basophils % 0 % Neutrophils # 16.8 H (1.3-7.7) k/uL Lymphocytes # 2.2 (1.0-4.8) k/uL Monocytes # 1.0 (0-1.0) k/uL Eosinophils # 0.2 (0-0.7) k/uL Basophils # 0.1 (0-0.2) k/uL Sodium 132 L (137-145) mmol/L Potassium 4.4 (3.5-5.1) mmol/L Chloride 91 L (98-107) mmol/L Carbon Dioxide 21 L (22-30) mmol/L Anion Gap 20 mmol/L BUN 62 H (9-20) mg/dL Creatinine 2.83 H (0.66-1.25) mg/dL Est GFR (MDRD) Af Amer 28 (>60 ml/min/1.73 sqM) Est GFR (MDRD) Non-Af 23 (>60 ml/min/1.73 sqM) Glucose 125 H (74-99) mg/dL Calcium 10.8 H (8.4-10.2) mg/dL Total Bilirubin 1.2 (0.2-1.3) mg/dL AST 43 (17-59) U/L ALT 45 (21-72) U/L Alkaline Phosphatase 102 (38-126) U/L Total Protein 8.8 H (6.3-8.2) g/dL Albumin 5.3 H (3.5-5.0) g/dL Amylase 41 (30-110) U/L Lipase 94 (23-300) U/L Urine Color Yellow Urine Appearance Clear (Clear) Urine pH 5.0 (5.0-8.0) Ur Specific [place] 1.017 (1.001-1.035) Urine Protein 1+ H (Negative) Urine Glucose (UA) Negative (Negative) Urine Ketones Negative (Negative) Urine Blood Negative (Negative) Urine Nitrite Negative (Negative) Urine Bilirubin Negative (Negative) Urine Urobilinogen <2.0 (<2.0) mg/dL Ur Leukocyte Esterase Negative (Negative) Urine RBC <1 (0-5) /hpf Urine WBC 3 (0-5) /hpf Urine Bacteria Rare H (None) /hpf Hyaline Casts 64 H (0-2) /lpf Urine Mucus Rare H (None) /hpf Urine Sperm Occasional H (None) /hpf - Radiology Data Radiology results: report reviewed, image reviewed Disposition Clinical Impression: [id number] kidney injury, Intractable vomiting, Dehydration, moderate Disposition: ADMITTED IP TO THIS [facility] Condition: Stable Referrals: Miki Nava DO [Primary Care Provider] - 1-2 days Time of Disposition: 16:02 Decision Date: 12/16/16 Decision Time: 16:02
[2016-12-16 14:06] LABS: Basophils # (A) 0.1 k/uL (0-0.2); Basophils % (A) 0 %; CH 31.5; CHCM 36.5; Eosinophils # (A) 0.2 k/uL (0-0.7); Eosinophils % (A) 1 %; HCT 47.1 % (39.0-53.0); HDW 2.65; Luc # (Auto) 0.19; Luc % (Auto) 1; Lymphocytes # (A) 2.2 k/uL (1.0-4.8); Lymphocytes % (A) 11 %; MCH 30.1 pg (25.0-35.0); MCHC 34.7 g/dL (31.0-37.0); MCV 86.7 fL (80.0-100.0); Mean Platelet Volume 6.8; Monocytes % (A) 5 %; Neutrophils # (A) 16.8 k/uL (1.3-7.7); Neutrophils % (A) 83 %; RBC 5.43 m/uL (4.30-5.90); RDW 13.2 % (11.5-15.5); WBC 20.4 k/uL (3.8-10.6); WBC (Perox) 20.41
[2016-12-16 14:09] LABS: HGB 16.3 gm/dL (13.0-17.5)
[2016-12-16 14:14] LABS: Calcium 10.8 mg/dL (8.4-10.2); Potassium 4.4 mmol/L (3.5-5.1); Total Bilirubin 1.2 mg/dL (0.2-1.3); Total Protein 8.8 g/dL (6.3-8.2)
--- NOTE | 2016-12-16 14:27 | XR ---
EXAMINATION TYPE: XR abdomen 2V DATE OF EXAM: 12/16/2016 CLINICAL HISTORY: Lower abdominal pain with constipation. TECHNIQUE: Supine and upright views of the abdomen are obtained. COMPARISON: Abdominal x-ray October 18, 2016 FINDINGS: Scattered gas is seen in non-distended small bowel loops. Gas and fecal material is seen in non-distended colon. Cholecystectomy clips are redemonstrated. Surgical sutures near upper epigast devon region are again seen. Surgical clips left upper quadrant is redemonstrated. No pneumoperitoneum is identified. Posterior fusion hardware L3-L5 levels is redemonstrated. Moderate joint space loss in both hips is seen. Cannot exclude new early left basilar atelectasis and/or infiltrate. Correlate cl inically. IMPRESSION: Overall nonobstructive bowel gas pattern.
[2016-12-16] MEDS ORDERED: KETOROLAC 30 MG/ML 1 ML VIAL IVP STA (14:44)
[2016-12-16 14:59] LABS: Appearance,Urine Clear (Clear); Bacteria,Urine Rare /hpf; Bilirubin,Urine Negative (Negative); Glucose,Urine (UA) Negative (Negative); Ketones,Urine Negative (Negative); Leukocyte Esterase,Urine Negative (Negative); Mucus,Urine Rare /hpf; Nitrite,Urine Negative (Negative); Particle Count 6424; Protein,Urine 1+ (Negative); RBC,Urine <1 /hpf (0-5); Specific Gravity,Urine 1.017 (1.001-1.035); Sperm,Urine Occasional /hpf; UA Billing (MACRO vs. MICRO) MICRO; Urobilinogen,Urine <2.0 mg/dL (<2.0); WBC,Urine 3 /hpf (0-5)
[2016-12-16] MEDS ORDERED: SODIUM CHLORIDE 0.9% 1,000 ML IV STA (15:15)
--- NOTE | 2016-12-16 15:40 | CT ---
EXAMINATION TYPE: CT abdomen pelvis wo con DATE OF EXAM: 12/16/2016 HISTORY: Vomiting, abdominal pain CT DLP: 1126.6 mGycm. Automated Exposure Control for Dose Reduction was Utilized. TECHNIQUE: CT scan of the abdomen and pelvis is performed without oral and IV contrast. COMPARISON: CT abdomen pelvis September 04, 2016 FINDINGS: Within the limitations of a non-contrast study, the following observations are made. Evalu ation is suboptimal as axial images are noncontiguous. LUNG BASES: Linear scarring anteriorly right lung base and medially left lung base is stable. There i s coronary artery calcification in the mid to distal RCA redemonstrated. LIVER/GB: Visualized liver is heterogeneously hypodense consistent with diffuse fatty infiltration. T here is simple appearing 1 cm cyst inferiorly right hepatic lobe seen on coronal image 48. Cholecyste ctomy clips are noted. PANCREAS: No significant abnormality is seen. SPLEEN: Few small splenules inferiorly near spleen are redemonstrated. ADRENALS: No significant abnormality is seen. KIDNEYS: No renal stones or hydronephrosis is seen bilaterally. BOWEL: Small sized hiatal hernia is redemonstrated. There is no suspicious small or large bowel dilat ation. Appendix is within normal limits from cecum GENITAL ORGANS: No gross abnormality seen. LYMPH NODES: No greater than 1cm abdominal or pelvic lymph nodes are appreciated. OSSEOUS STRUCTURES: Osseous structures are demineralized.. There is posterior interpedicular rods and screws transfixing L3-L5 levels, artificial disc material is felt present at these levels. There is spinous process resection L4 level redemonstrated. Hemangioma right L1 level is redemonstrated. There is moderate joint space loss in both hips. There is avascular necrosis of both femoral heads redemon strated. OTHER: There is stable small fat-containing right inguinal hernia. IMPRESSION: No bowel obstruction is seen. No suspicious new finding is seen to account for patient's symptoms.
[2016-12-16] MEDS ORDERED: NALOXONE 0.4 MG/ML 1 ML VIAL IV PRN (16:02)
[2016-12-16] MEDS ORDERED: ONDANSETRON 4 MG/2 ML VIAL IVP PRN (16:02)
[2016-12-16] MEDS ORDERED: DICYCLOMINE 20 MG TAB PO PRN (16:03)
[2016-12-16] MEDS ORDERED: ONDANSETRON ODT 4 MG TAB PO PRN (16:03)
[2016-12-16] MEDS ORDERED: DIPHENOX-ATROP 2.5-0.025 MG 1 EACH TAB PO PRN (16:03)
[2016-12-16] MEDS ORDERED: NITROGLYCERIN SL TABS 0.4 MG TAB SUBLINGUAL PRN (16:03)
[2016-12-16] MEDS: SODIUM CHLORIDE 0.9% 1,000 ML IV SCH (20:45)
[2016-12-16] MEDS: LORazepam 1 MG TAB PO PRN (20:45)
[2016-12-16] MEDS: AMITRIPTYLINE HCL 50 MG TAB PO SCH (20:45)
[2016-12-16] MEDS: cloNIDine HCL 0.1 MG TAB PO SCH (22:03)
[2016-12-16] MEDS: KETOROLAC 30 MG/ML 1 ML VIAL IVP PRN (22:07)
[2016-12-17] MEDS: KETOROLAC 30 MG/ML 1 ML VIAL IVP PRN ×4 (03:57→22:51)
[2016-12-17] MEDS: SODIUM CHLORIDE 0.9% 1,000 ML IV SCH ×3 (03:57→11:59)
[2016-12-17] MEDS: LORazepam 1 MG TAB PO PRN ×3 (04:30→20:22)
[2016-12-17] MEDS: LEVOTHYROXINE 75 MCG TAB PO SCH (06:04)
[2016-12-17 07:41] LABS: Basophils % (A) 0 %; CH 31.2; CHCM 35.4; Eosinophils # (A) 0.1 k/uL (0-0.7); Eosinophils % (A) 1 %; HCT 44.4 % (39.0-53.0); HDW 2.61; Luc # (Auto) 0.18; Luc % (Auto) 2; Lymphocytes # (A) 2.7 k/uL (1.0-4.8); Lymphocytes % (A) 27 %; MCH 29.9 pg (25.0-35.0); MCHC 33.9 g/dL (31.0-37.0); MCV 88.4 fL (80.0-100.0); Mean Platelet Volume 7.1; Monocytes # (A) 0.8 k/uL (0-1.0); Monocytes % (A) 8 %; Neutrophils # (A) 6.3 k/uL (1.3-7.7); Neutrophils % (A) 62 %; RBC 5.02 m/uL (4.30-5.90); RDW 13.3 % (11.5-15.5); WBC 10.1 k/uL (3.8-10.6); WBC (Perox) 9.45
[2016-12-17 07:57] LABS: Calcium 9.3 mg/dL (8.4-10.2); Potassium 4.3 mmol/L (3.5-5.1)
[2016-12-17] MEDS: PANTOPRAZOLE 40 MG TABLET PO SCH (08:38)
[2016-12-17] MEDS: LOSARTAN 50 MG TAB PO SCH (08:39)
[2016-12-17] MEDS: cloNIDine HCL 0.1 MG TAB PO SCH ×3 (08:39→20:22)
[2016-12-17] MEDS: ASPIRIN 81 MG PO SCH (08:39)
[2016-12-17] MEDS: ESCITALOPRAM 10 MG TAB PO SCH (08:39)
--- NOTE | 2016-12-17 11:39 | P.HPIM ---
History of Present Illness H&P Date: 12/17/16 Chief Complaint: Nausea, Vomiting 61 year old male who presented to emergency room on 12/16/2016 with a chief complaint of nausea and vomiting and abdominal pain. In the emergency room an abdominal x-ray was completed which revealed a nonobstructive gas pattern. A computed tomography scan of the abdomen and pelvis was completed which was negative for a bowel obstruction and did not reveal any other acute abnormalities. He was started on IV fluids at 100 mL an hour. His sodium was 132. Potassium 4.4. BUN 62. Creatinine 2.83. White count was 20.4. Hemoglobin 16.3. The patient was recently hospitalized from 11/03/2016 until 11/05/2016 with similar symptoms of nausea and vomiting abdominal pain. The patient was found to be dehydrated with an acute kidney injury. He was given IV fluids and his symptoms resolved and he was discharged home in stable condition. The patient has a history of coronary artery disease, gastroesophageal reflux disease, hypertension, hyperlipidemia, and a history of opioid abuse. The patient has a history of multiple heart attacks in the patient states he has had "over 10 heart attacks". He states he had stent placement in 2007 and 2013. Echocardiogram from October 2016 reveals an ejection fraction between 55-60%. The patient also has a history of irritable bowel syndrome and persistent GI symptoms of nausea, vomiting, diarrhea for approximately the last 5 years. The patient takes Bentyl and Lomotil at home. He underwent a GI workup earlier this year. EGD was performed in May 2016 which showed mild antral gastritis, small hiatal hernia, no evidence of peptic ulcer disease. The patient was seen and examined at the bedside this morning. He states that Tuesday morning he started feeling unwell and had one episode of emesis. He states he started feeling better on Tuesday and went to help his son and was doing strenuous activity all day out in a field. He states Tuesday morning he started having abdominal pain and episodes of nausea and vomiting. He states he was drinking some fluids but states it was probably not enough and feels he overdid and became dehydrated. He denies nausea or vomiting at this time. He states he tolerated his breakfast well. He states his abdominal pain has improved. He denies any chest pain or shortness of breath. He is receiving IV fluids at 100 mL an hour. His creatinine today has improved from 2.83 to 1.59. His white count is improved from 20.4 to 10.1. He is afebrile. His blood pressure is stable. He's maintaining an oxygen saturation greater than 92% on room air. Review of Systems GENERAL: Patient denies fever. Denies chills. EYES: Denies blurred vision. Denies vision changes. Denies eye pain. EARS, NOSE, MOUTH, & THROAT: Denies headache. Denies sore throat. Denies ear pain. RESPIRATORY: Denies cough. Denies shortness of breath. Denies sputum production. Denies hemoptysis. CARDIOVASCULAR: Denies chest pain or pressure. Denies palpitations. Denies arrhythmias. GASTROINTESTINAL: Positive for recent episodes of nausea and vomiting, which have resolved. Positive for abdominal pain yesterday but currently denies abdominal pain. Denies heartburn. Denies blood in the stool. GENITOURINARY: Denies urinary frequency. Denies burning. Denies dysuria. Denies cloudy urine. Denies blood in the urine. MUSCULOSKELETAL: Positive for muscle cramps, which patient relates to dehydration. Denies joint swelling. Denies decreased range of motion beyond patients baseline. INTEGUMENTARY: Denies pruitis. Denies rash. PSYCHIATRIC: Denies suicidal or homicial ideations. ENDOCRINE: Denies weight change. Denies polydipsia. Denies polyuria. HEMATOLOGIC: Denies bleeding disorders. Past Medical History Past Medical History: Coronary Artery Disease (CAD), Chest Pain / Angina, GERD/ Reflux, Hyperlipidemia, Hypertension, Myocardial Infarction ([place]), Musculoskeletal Disorder, Osteoarthritis (OA), Pneumonia, Renal Disease, Thyroid Disorder Additional Past Medical History / Comment(s): Pt recently admitted to [facility] on 10/09/16 with abdominal pain, nausea/vomiting and dehydration. Other hx: Pt states he has had numerous MIs, lumbar sacral spinal stenosis, chronic low back pain with bilateral sciatica, pinched nerves in back, DIVERTICULITIS, IBS, bronchitis, migraines, numbness/tingling bilateral feet.SMALL HIATAL HERNIA PER EGD Last Myocardial Infarction Date:: 2013 History of Any Multi-Drug Resistant Organisms: None Reported Past Surgical History: Back Surgery, Cholecystectomy, Heart Catheterization With Stent, Hernia Repair, Orthopedic Surgery Additional Past Surgical History / Comment(s): COLONOSCOPY, EGD, ORIF LT ANKLE. BACK SURGERIES fusion L3-L5, LT HAND SURGERY, RT KNEE ARTHROSC, RT ELBOW SURG, LUMBAR SPINE CYST REMOVAL AT L2 IN 2014, HIATAL HERNIA REPAIR, right shoulder arthroscopy, back injections. Past Anesthesia/Blood Transfusion Reactions: No Reported Reaction Date of Last Stent Placement:: 2013 Smoking Status: Former smoker - Past Family History Mother Family Medical History: Thyroid Disorder Father Family Medical History: Diabetes Mellitus, Myocardial Infarction ([place]) Additional Family Medical History / Comment(s): TRIPLE BYPASS, [place] in his 50's or 60's. from MVA when he was in his 80's Sister(s) Family Medical History: Cancer, Thyroid Disorder Additional Family Medical History / Comment(s): SKIN CA Medications and Allergies Home Medications Medication Instructions Recorded Confirmed Type cloNIDine HCL [Clonidine HCl] 0.1 mg PO TID 11/16/15 12/16/16 History Levothyroxine Sodium [Synthroid] 75 mcg PO DAILY 05/04/16 12/16/16 History Omeprazole 20 mg PO DAILY 05/04/16 12/16/16 History Amitriptyline HCl [Elavil] 50 mg PO HS 05/14/16 12/16/16 History Dicyclomine [Bentyl] 20 mg PO AC-TID PRN 05/31/16 12/16/16 History Losartan [Cozaar] 50 mg PO DAILY 05/31/16 12/16/16 History Aspirin [Adult Low Dose Aspirin EC] 81 mg PO DAILY 06/24/16 12/16/16 History Diphenoxylate HCl/Atropine 1 tab PO Q8H PRN 07/19/16 12/16/16 History [Lomotil 2.5-0.025 mg Tablet] Nitroglycerin Sl Tabs [Nitrostat] 0.4 mg SUBLINGUAL Q5M PRN 07/19/16 12/16/16 History Ondansetron Odt [Zofran ODT] 4 mg PO Q8HR PRN #10 tab 09/10/16 12/16/16 Rx Cholecalciferol [Vitamin D3] 2,000 unit PO DAILY 09/23/16 12/16/16 History Escitalopram [Lexapro] 30 mg PO DAILY 12/16/16 12/16/16 History Allergies Allergy/AdvReac Type Severity Reaction Status Date / Time Beta-Blockers Allergy Rash/Hives Verified 12/16/16 13:52 (Beta-Adrenergic Bloc paroxetine HCl [From Paxil] AdvReac Unknown Abdominal Verified 12/16/16 13:52 Pain Physical Exam Vitals: Vital Signs Temp Pulse Pulse Resp BP BP BP 12/17/16 07:00 97.8 F 78 136/86 12/16/16 21:00 98.3 F 93 18 148/95 12/16/16 17:29 98.5 F 88 16 148/87 12/16/16 15:37 99.3 F 89 18 143/96 12/16/16 13:50 98.1 F 98 18 152/99 12/16/16 13:09 97.8 F 95 20 181/94 Pulse Ox 12/17/16 07:00 97 12/16/16 21:00 12/16/16 17:29 95 12/16/16 15:37 95 12/16/16 13:50 98 12/16/16 13:09 98 Intake and Output 12/16/16 12/17/16 12/17/16 22:59 06:59 14:59 Intake Total 400 1000 Balance 400 1000 Intake: Intake, IV Titration 400 800 Amount Sodium Chloride 0.9% 1, 800 000 ml @ 100 mls/hr IV . Q10H CYNDIE Rx#:[id number] Sodium Chloride 0.9% 1, 400 000 ml @ 999 mls/hr IV . Q1H1M STA Rx#:[id number] Oral 200 Other: Voiding Method Toilet Toilet GENERAL: This is a 61-year-old male in no apparent distress at the time of examination. Pleasant and cooperative. HEENT: Head is atraumatic, normocephalic. Pupils are equal, round, and reactive to light. Sclerae anicteric. Conjunctivae are clear. Mucus membranes of the mouth are moist. Neck is supple. RESPIRATORY: Clear to ausculation. No wheezes, rales, or rhonchi. No use of accessory muscles. Patient maintaining oxygen saturation greater than 92%. No chest wall tenderness is noted on palpation or with deep breathing. CARDIOVASCULAR: Regular rate and rhythm. S1 and S2 noted. No systolic or diastolic murmur auscultated. No JVD noted. No S3 or S4 noted. GASTROINTESTINAL: No distention noted. Abdomen soft and round. Normal active bowel sounds auscultated X 4 quadrants. No pain or tenderness noted upon palpation. INTEGUMENTARY: No cyanosis. No jaundice. No rashes noted. No cellulitis noted. EXTREMITIES: 2+ peripheral pulses. No evidence of peripheral edema. No calf tenderness noted. NEUROLOGIC: Cranial nerves II-XII intact. PSYCHIATRIC: Awake, alert, and oriented X 3. Appropriate affect. Intact judgement and insight. Results CBC & Chem 7: 12/17/16 07:27 12/17/16 07:27 Labs: Abnormal Lab Results - Last 24 Hours (Table) 12/16/16 12/16/16 12/16/16 Range/Units 13:50 13:50 14:35 WBC 20.4 H (3.8-10.6) k/uL Neutrophils # 16.8 H (1.3-7.7) k/uL Sodium 132 L (137-145) mmol/L Chloride 91 L (98-107) mmol/L Carbon Dioxide 21 L (22-30) mmol/L BUN 62 H (9-20) mg/dL Creatinine 2.83 H (0.66-1.25) mg/dL Glucose 125 H (74-99) mg/dL Calcium 10.8 H (8.4-10.2) mg/dL Total Protein 8.8 H (6.3-8.2) g/dL Albumin 5.3 H (3.5-5.0) g/dL Urine Protein 1+ H (Negative) Urine Bacteria Rare H (None) /hpf Hyaline Casts 64 H (0-2) /lpf Urine Mucus Rare H (None) /hpf Urine Sperm Occasional H (None) /hpf 12/17/16 Range/Units 07:27 WBC (3.8-10.6) k/uL Neutrophils # (1.3-7.7) k/uL Sodium 136 L (137-145) mmol/L Chloride (98-107) mmol/L Carbon Dioxide (22-30) mmol/L BUN 51 H (9-20) mg/dL Creatinine 1.59 H (0.66-1.25) mg/dL Glucose 110 H (74-99) mg/dL Calcium (8.4-10.2) mg/dL Total Protein (6.3-8.2) g/dL Albumin (3.5-5.0) g/dL Urine Protein (Negative) Urine Bacteria (None) /hpf Hyaline Casts (0-2) /lpf Urine Mucus (None) /hpf Urine Sperm (None) /hpf Thrombosis Risk Factor Assmnt - Choose All That Apply Any of the Below Risk Factors Present?: Yes Other Risk Factors: Yes Each Risk Factor Represents 2 Points: Age 61-74 years Other congenital or acquired thrombophilia - If yes, enter type in comment: No Thrombosis Risk Factor Assessment Total Risk Factor Score: 2 Thrombosis Risk Factor Assessment Level: Low Risk Assessment and Plan Plan: ASSESSMENT: Acute kidney injury, creatinine 1.59 on admission, baseline 0.8-1.2, likely secondary to dehydration Multiple recent hospital admissions for acute kidney injury secondary to dehydration related to nausea and vomiting Abdominal pain, present on admission, imaging negative for acute process, resolved Nausea and vomiting, which has been persistant for patient over the last 5 years , improving Leukocytosis, present on admission, no evidence of sepsis, resolved Coronary artery disease with previous stenting 2 History of chronic pain with opioid dependency and abuse per previous records Essential hypertension Hyperlipidemia Cannabis use disorder, patient is a daily marijuana smoker PLAN: -Increase IV fluids to 125 mL an hour -Clear liquid diet. Advance as tolerated -Home meds as appropriate -No narcotics to be ordered as patient has history of opioid abuse -Monitor labs. Repeat in a.m. -GI prophylaxis: Protonix 40 mg by mouth daily -DVT prophylaxis: Heparin 5000 units subcu every 8 hours -Monitor vital signs and address as appropriate -Discharge planning: Patient to return home -Further recommendations pending patient's course -Anticipate discharge home tomorrow per Dr. Nava Nurse practitioner note has been reviewed by physician. Signing provider agrees with the documented findings, assessment, and plan of care.
[2016-12-17] MEDS: CHOLECALCIFEROL 1,000 UNIT TAB PO SCH (12:55)
[2016-12-17] MEDS: HEPARIN SODIUM,PORCINE 5,000 UNIT/ML 1 ML VIAL SQ SCH ×2 (16:17→23:47)
[2016-12-17] MEDS: AMITRIPTYLINE HCL 50 MG TAB PO SCH (20:22)
[2016-12-18] MEDS: SODIUM CHLORIDE 0.9% 1,000 ML IV SCH ×3 (04:40→07:28)
[2016-12-18] MEDS: KETOROLAC 30 MG/ML 1 ML VIAL IVP PRN (04:48)
[2016-12-18] MEDS: LORazepam 1 MG TAB PO PRN (04:52)
[2016-12-18] MEDS: LEVOTHYROXINE 75 MCG TAB PO SCH (06:05)
[2016-12-18 07:12] LABS: Basophils % (A) 1 %; CH 30.9; CHCM 34.3; Eosinophils # (A) 0.1 k/uL (0-0.7); Eosinophils % (A) 2 %; HCT 42.9 % (39.0-53.0); HDW 2.62; HGB 14.1 gm/dL (13.0-17.5); Luc # (Auto) 0.11; Luc % (Auto) 2; Lymphocytes # (A) 2.4 k/uL (1.0-4.8); Lymphocytes % (A) 36 %; MCH 29.8 pg (25.0-35.0); MCV 90.3 fL (80.0-100.0); Mean Platelet Volume 6.9; Monocytes # (A) 0.5 k/uL (0-1.0); Monocytes % (A) 8 %; Neutrophils # (A) 3.6 k/uL (1.3-7.7); Neutrophils % (A) 53 %; RBC 4.75 m/uL (4.30-5.90); RDW 13.3 % (11.5-15.5); WBC 6.8 k/uL (3.8-10.6)
[2016-12-18 07:22] LABS: Anion Gap 6 mmol/L; Blood Urea Nitrogen 30 mg/dL (9-20); Calcium 9.4 mg/dL (8.4-10.2); Carbon Dioxide 25 mmol/L (22-30); Chloride 106 mmol/L (98-107); Glucose 104 mg/dL (74-99); Non-African American GFR(MDRD) >60 (>60 ml/min/1.73 sqM); Potassium 4.8 mmol/L (3.5-5.1); Sodium 137 mmol/L (137-145)
[2016-12-18] MEDS: HEPARIN SODIUM,PORCINE 5,000 UNIT/ML 1 ML VIAL SQ SCH (07:29)
[2016-12-18] MEDS: PANTOPRAZOLE 40 MG TABLET PO SCH (07:29)
[2016-12-18 08:28] VITALS: BP 132/97; PULSE 77; RESP 18; TEMP 96.9
[2016-12-18] MEDS: ESCITALOPRAM 10 MG TAB PO SCH (09:00)
[2016-12-18] MEDS: cloNIDine HCL 0.1 MG TAB PO SCH (09:00)
[2016-12-18] MEDS: ASPIRIN 81 MG PO SCH (09:00)
[2016-12-18] MEDS: LOSARTAN 50 MG TAB PO SCH (09:01)
[2016-12-18] MEDS: CHOLECALCIFEROL 1,000 UNIT TAB PO SCH (11:30)
--- NOTE | 2016-12-18 17:37 | P.DS ---
Providers Date of admission: 12/16/16 15:58 Attending physician: Miki Nava Primary care physician: Miki Nava [facility] Course: This 67-year-old gentleman being followed by Dr. Nava in the preceding was admitted with nausea and diarrhea and as well as renal failure. Patient treated symptomatically. Patient was significantly. Patient be discharged in a stable condition with guarded prognosis. On exam vitals are stable. Cardio S1 and S2 normal. Respirator system clear to auscultation. Abdomen soft nontender. Nervous system no focal deficit. Final diagnosis 1. Acute kidney injury possibly secondary to dehydration. 2. Multiple hospital admissions acute kidney injury secondary to dehydration related to. 3.Abdominal pain possibly acute gastritis. 4.CAD stent stable. 5.Chronic pain syndrome and opiate dependency and abuse per previous records. 5.Essential hypertension. 6.Hyperlipidemia. Patient Condition at Discharge: Stable Plan - Discharge Summary Discharge Rx Participant: Yes New Discharge Prescriptions: Continue cloNIDine HCL [Clonidine HCl] 0.1 mg PO TID Levothyroxine Sodium [Synthroid] 75 mcg PO DAILY Omeprazole 20 mg PO DAILY Amitriptyline HCl [Elavil] 50 mg PO HS Losartan [Cozaar] 50 mg PO DAILY Dicyclomine [Bentyl] 20 mg PO AC-TID PRN PRN Reason: Abdominal Cramping Aspirin [Adult Low Dose Aspirin EC] 81 mg PO DAILY Nitroglycerin Sl Tabs [Nitrostat] 0.4 mg SUBLINGUAL Q5M PRN PRN Reason: Chest Pain Diphenoxylate HCl/Atropine [Lomotil 2.5-0.025 mg Tablet] 1 tab PO Q8H PRN PRN Reason: Diarrhea Ondansetron Odt [Zofran ODT] 4 mg PO Q8HR PRN #10 tab PRN Reason: Nausea Cholecalciferol [Vitamin D3] 2,000 unit PO DAILY Escitalopram [Lexapro] 30 mg PO DAILY Discharge Medication List cloNIDine HCL [Clonidine HCl] 0.1 mg PO TID 11/16/15 [History] Levothyroxine Sodium [Synthroid] 75 mcg PO DAILY 05/04/16 [History] Omeprazole 20 mg PO DAILY 05/04/16 [History] Amitriptyline HCl [Elavil] 50 mg PO HS 05/14/16 [History] Dicyclomine [Bentyl] 20 mg PO AC-TID PRN 05/31/16 [History] Losartan [Cozaar] 50 mg PO DAILY 05/31/16 [History] Aspirin [Adult Low Dose Aspirin EC] 81 mg PO DAILY 06/24/16 [History] Diphenoxylate HCl/Atropine [Lomotil 2.5-0.025 mg Tablet] 1 tab PO Q8H PRN [History] Nitroglycerin Sl Tabs [Nitrostat] 0.4 mg SUBLINGUAL Q5M PRN 07/19/16 [History] Ondansetron Odt [Zofran ODT] 4 mg PO Q8HR PRN #10 tab 09/10/16 [Rx] Cholecalciferol [Vitamin D3] 2,000 unit PO DAILY 09/23/16 [History] Escitalopram [Lexapro] 30 mg PO DAILY 12/16/16 [History] Follow up Appointment(s)/Referral(s): Miki Nava DO [Primary Care Provider] - 1-2 days Ambulatory/Diagnostic Orders: Complete Blood Count w/diff [LAB.AMB] Location: Determined By Patient Patient Instructions/Handouts: Acute Kidney Injury (DC) Activity/Diet/Wound Care/Special Instructions: diet cardiac act as tolerated Discharge Disposition: HOME SELF-CARE
== END 2016-12-18 10:45 | disposition home or self-care (01) | DRG 683 ==
LOC: EC 12:55 → 5MS5E 15:58
PROVIDERS: ADMIT Family Medicine; ATTEND Family Medicine
DX: N17.9 Acute kidney failure, unspecified (principal); F11.20 Opioid dependence, uncomplicated; I12.9 Hypertensive chronic kidney disease with stage 1 through stage 4 chronic kidney disease, or unspecified chronic kidney disease; E86.0 Dehydration; R11.2 Nausea with vomiting, unspecified; I25.10 Atherosclerotic heart disease of native coronary artery without angina pectoris; M19.90 Unspecified osteoarthritis, unspecified site; G89.4 Chronic pain syndrome; N18.9 Chronic kidney disease, unspecified; K29.00 Acute gastritis without bleeding; E78.5 Hyperlipidemia, unspecified; K21.9 Gastro-esophageal reflux disease without esophagitis; F12.90 Cannabis use, unspecified, uncomplicated; Z83.3 Family history of diabetes mellitus; Z82.49 Family history of ischemic heart disease and other diseases of the circulatory system; Z95.5 Presence of coronary angioplasty implant and graft; Z79.82 Long term (current) use of aspirin; Z79.899 Other long term (current) drug therapy; Z80.8 Family history of malignant neoplasm of other organs or systems; Z87.891 Personal history of nicotine dependence; Z90.49 Acquired absence of other specified parts of digestive tract; Z98.1 Arthrodesis status; Z87.19 Personal history of other diseases of the digestive system; I25.2 Old myocardial infarction; Z87.01 Personal history of pneumonia (recurrent)
CPT/HCPCS: 36415; 74020; 74176; 80048; 80053; 81001; 82150; 83690; 85025; 96361; 96374; 96375; 99285

== ENCOUNTER 2016-12-19 12:34 | Emergency (ER) | payer MEDICARE ==
[2016-12-19] MEDS ORDERED: ONDANSETRON 4 MG/2 ML VIAL IVP STA (13:30)
[2016-12-19] MEDS ORDERED: SODIUM CHLORIDE 0.9% 1,000 ML IV ONE (13:34)
--- NOTE | 2016-12-19 13:34 | ED ---
General Adult HPI - General Chief complaint: Nausea/Vomiting/Diarrhea Stated complaint: Vomiting Time Seen by Provider: 12/19/16 12:45 Source: patient, RN notes reviewed Mode of arrival: wheelchair Limitations: no limitations - History of Present Illness Initial comments: This is a 61-year-old male who has been to the emergency department and admitted multiple times for dehydration acute renal failure and persistent vomiting. Patient comes in again today stating he has vomiting since last night and feels like he is dehydrated again. Patient states she was in the hospital for a few days and was just released yesterday. Patient complains of diffuse abdominal pain. Patient denies any fever chills per patient denies any difficulty breathing shortness of breath or cough. Patient denies any chest pain. Patient denies any diarrhea. Patient denies headache patient denies lightheadedness dizziness or near syncopal episode. - Related Data Home Medications Medication Instructions Recorded Confirmed cloNIDine HCL [Clonidine HCl] 0.1 mg PO TID 11/16/15 12/19/16 Levothyroxine Sodium [Synthroid] 75 mcg PO DAILY 05/04/16 12/19/16 Omeprazole 20 mg PO DAILY 05/04/16 12/19/16 Amitriptyline HCl [Elavil] 50 mg PO HS 05/14/16 12/19/16 Dicyclomine [Bentyl] 20 mg PO AC-TID PRN 05/31/16 12/19/16 Losartan [Cozaar] 50 mg PO DAILY 05/31/16 12/19/16 Aspirin [Adult Low Dose Aspirin EC] 81 mg PO DAILY 06/24/16 12/19/16 Diphenoxylate HCl/Atropine 1 tab PO Q8H PRN 07/19/16 12/19/16 [Lomotil 2.5-0.025 mg Tablet] Nitroglycerin Sl Tabs [Nitrostat] 0.4 mg SUBLINGUAL Q5M PRN 07/19/16 12/19/16 Cholecalciferol [Vitamin D3] 2,000 unit PO DAILY 09/23/16 12/19/16 Escitalopram [Lexapro] 30 mg PO DAILY 12/16/16 12/19/16 Previous Rx's Medication Instructions Recorded Ondansetron Odt [Zofran ODT] 4 mg PO Q8HR PRN #10 tab 09/10/16 Allergies Allergy/AdvReac Type Severity Reaction Status Date / Time Beta-Blockers Allergy Rash/Hives Verified 12/19/16 12:55 (Beta-Adrenergic Bloc paroxetine HCl [From Paxil] AdvReac Unknown Abdominal Verified 12/19/16 12:55 Pain Review of Systems ROS Statement: Those systems with pertinent positive or pertinent negative responses have been documented in the HPI. ROS Other: All systems not noted in ROS Statement are negative. Past Medical History Past Medical History: Coronary Artery Disease (CAD), Chest Pain / Angina, GERD/ Reflux, Hyperlipidemia, Hypertension, Myocardial Infarction (ID), Musculoskeletal Disorder, Osteoarthritis (OA), Pneumonia, Renal Disease, Thyroid Disorder Additional Past Medical History / Comment(s): Pt recently admitted to [facility] on 10/09/16 with abdominal pain, nausea/vomiting and dehydration. Other hx: Pt states he has had numerous MIs, lumbar sacral spinal stenosis, chronic low back pain with bilateral sciatica, pinched nerves in back, DIVERTICULITIS, IBS, bronchitis, migraines, numbness/tingling bilateral feet.SMALL HIATAL HERNIA PER EGD Last Myocardial Infarction Date:: 2013 History of Any Multi-Drug Resistant Organisms: None Reported Past Surgical History: Back Surgery, Cholecystectomy, Heart Catheterization With Stent, Hernia Repair, Orthopedic Surgery Additional Past Surgical History / Comment(s): COLONOSCOPY, EGD, ORIF LT ANKLE. BACK SURGERIES fusion L3-L5, LT HAND SURGERY, RT KNEE ARTHROSC, RT ELBOW SURG, LUMBAR SPINE CYST REMOVAL AT L2 IN 2013, HIATAL HERNIA REPAIR, right shoulder arthroscopy, back injections. Past Anesthesia/Blood Transfusion Reactions: No Reported Reaction Date of Last Stent Placement:: 2013 Past Psychological History: No Psychological Hx Reported Smoking Status: Former smoker Past Alcohol Use History: None Reported Past Drug Use History: None Reported - Past Family History Mother Family Medical History: Thyroid Disorder Father Family Medical History: Diabetes Mellitus, Myocardial Infarction ([place]) Additional Family Medical History / Comment(s): TRIPLE BYPASS, [place] in his 50's or 60's. from MVA when he was in his 80's Sister(s) Family Medical History: Cancer, Thyroid Disorder Additional Family Medical History / Comment(s): SKIN CA General Exam - General Exam Comments Initial Comments: GENERAL: Patient is well-developed and well-nourished. Patient is nontoxic and well- hydrated and is in mild distress. ENT: Neck is soft and supple. No significant lymphadenopathy is noted. Oropharynx is clear. Moist mucous membranes. Neck has full range of motion without eliciting any pain. EYES: The sclera were anicteric and conjunctiva were pink and moist. Extraocular movements were intact and pupils were equal round and reactive to light. Eyelids were unremarkable. PULMONARY: Unlabored respirations. Good breath sounds bilaterally. No audible rales rhonchi or wheezing was noted. CARDIOVASCULAR: There is a regular rate and rhythm without any murmurs gallops or rubs. ABDOMEN: Soft and nontender with normal bowel sounds. SKIN: Skin is clear with no lesions or rashes and otherwise unremarkable. NEUROLOGIC: Patient is alert and oriented x3. Cranial nerves II through XII are grossly intact. Motor and sensory are also intact. Normal speech, volume and content. Symmetrical smile. MUSCULOSKELETAL: Normal extremities with adequate strength and full range of motion. LYMPHATICS: No significant lymphadenopathy is noted PSYCHIATRIC: Normal psychiatric evaluation. Limitations: no limitations Course Vital Signs 12/19/16 12:42 Temperature 97.7 F Pulse Rate 101 H Respiratory 18 Rate Blood Pressure 139/96 O2 Sat by Pulse 100 Oximetry Medical Decision Making - Medical Decision Making I went back into the room to reevaluate the patient he was no longer vomiting and stated he felt considerably better. Patient's kidney function was normal and he did not appear to be dehydrated numerically so he wanted to go home so I discharged home to follow-up with Dr. Nava. - Lab Data Result diagrams: 12/19/16 13:57 12/19/16 13:57 Lab Results 12/19/16 12/19/16 12/19/16 Range/Units 13:57 13:57 13:57 WBC 9.8 (3.8-10.6) k/uL RBC 5.08 (4.30-5.90) m/uL Hgb 15.1 (13.0-17.5) gm/dL Hct 44.0 (39.0-53.0) % MCV 86.7 (80.0-100.0) fL MCH 29.7 (25.0-35.0) pg MCHC 34.3 (31.0-37.0) g/dL RDW 14.1 (11.5-15.5) % Plt Count 276 (150-450) k/uL Neutrophils % 68 % Lymphocytes % 23 % Monocytes % 7 % Eosinophils % 1 % Basophils % 0 % Neutrophils # 6.7 (1.3-7.7) k/uL Lymphocytes # 2.3 (1.0-4.8) k/uL Monocytes # 0.7 (0-1.0) k/uL Eosinophils # 0.1 (0-0.7) k/uL Basophils # 0.0 (0-0.2) k/uL Sodium 141 (137-145) mmol/L Potassium 4.7 (3.5-5.1) mmol/L Chloride 106 (98-107) mmol/L Carbon Dioxide 23 (22-30) mmol/L Anion Gap 12 mmol/L BUN 17 (9-20) mg/dL Creatinine 1.05 (0.66-1.25) mg/dL Est GFR (MDRD) Af Amer >60 (>60 ml/min/1.73 sqM) Est GFR (MDRD) Non-Af >60 (>60 ml/min/1.73 sqM) Glucose 96 (74-99) mg/dL Calcium 10.9 H (8.4-10.2) mg/dL Total Bilirubin 0.6 (0.2-1.3) mg/dL AST 64 H (17-59) U/L ALT 53 (21-72) U/L Alkaline Phosphatase 96 (38-126) U/L Total Protein 7.7 (6.3-8.2) g/dL Albumin 4.7 (3.5-5.0) g/dL Amylase 44 (30-110) U/L Lipase 118 (23-300) U/L Serum Alcohol <10 mg/dL Disposition Clinical Impression: Acute vomiting Disposition: HOME SELF-CARE Condition: Good Instructions: Acute Nausea and Vomiting (ED) Referrals: Miki Nava DO [Primary Care Provider] - 1-2 days Time of Disposition: 15:25
[2016-12-19 14:45] LABS: Basophils % (A) 0 %; CH 30.4; CHCM 35.2; Eosinophils # (A) 0.1 k/uL (0-0.7); Eosinophils % (A) 1 %; HDW 2.47; HGB 15.1 gm/dL (13.0-17.5); Luc % (Auto) 1; Lymphocytes # (A) 2.3 k/uL (1.0-4.8); Lymphocytes % (A) 23 %; MCH 29.7 pg (25.0-35.0); MCHC 34.3 g/dL (31.0-37.0); MCV 86.7 fL (80.0-100.0); Mean Platelet Volume 7.8; Monocytes # (A) 0.7 k/uL (0-1.0); Monocytes % (A) 7 %; Neutrophils # (A) 6.7 k/uL (1.3-7.7); Neutrophils % (A) 68 %; RBC 5.08 m/uL (4.30-5.90); RDW 14.1 % (11.5-15.5); WBC 9.8 k/uL (3.8-10.6)
[2016-12-19 14:56] LABS: ALT 53 U/L (21-72); AST 64 U/L (17-59); Alkaline Phosphatase 96 U/L (38-126); Amylase 44 U/L (30-110); Anion Gap 12 mmol/L; Blood Urea Nitrogen 17 mg/dL (9-20); Calcium 10.9 mg/dL (8.4-10.2); Carbon Dioxide 23 mmol/L (22-30); Chloride 106 mmol/L (98-107); Glucose 96 mg/dL (74-99); Non-African American GFR(MDRD) >60 (>60 ml/min/1.73 sqM); Potassium 4.7 mmol/L (3.5-5.1); Sodium 141 mmol/L (137-145); Total Bilirubin 0.6 mg/dL (0.2-1.3); Total Protein 7.7 g/dL (6.3-8.2)
[2016-12-19 15:37] VITALS: BP 144/86; PULSE 78; RESP 16; TEMP 99
== END 2016-12-19 15:37 | disposition home or self-care (01) ==
LOC: EC 12:34
DX: R11.10 Vomiting, unspecified (principal); I25.10 Atherosclerotic heart disease of native coronary artery without angina pectoris; K21.9 Gastro-esophageal reflux disease without esophagitis; E78.5 Hyperlipidemia, unspecified; I10 Essential (primary) hypertension; I25.2 Old myocardial infarction; E07.9 Disorder of thyroid, unspecified; Z90.49 Acquired absence of other specified parts of digestive tract; Z95.5 Presence of coronary angioplasty implant and graft; Z88.8 Allergy status to other drugs, medicaments and biological substances; Z79.82 Long term (current) use of aspirin; Z79.899 Other long term (current) drug therapy; Z87.891 Personal history of nicotine dependence
CPT/HCPCS: 99284; 96374; 96361; 36415; 80053; 82150; 83690; 85025; 80320; J2405

== ENCOUNTER 2017-02-14 21:19 | Inpatient (IN) | payer MEDICARE ==
[2017-02-15] MEDS ORDERED: DIAZEPAM 5 MG/ML 2 ML INJ IVP STA (00:52)
[2017-02-15 01:03] LABS: Basophils % (A) 0 %; Eosinophils % (A) 0 %; HCT 51.6 % (39.0-53.0); HGB 17.6 gm/dL (13.0-17.5); Lymphocytes # (A) 1.1 k/uL (1.0-4.8); Lymphocytes % (A) 7 %; MCH 28.9 pg (25.0-35.0); MCHC 34.2 g/dL (31.0-37.0); MCV 84.7 fL (80.0-100.0); Mean Platelet Volume 7.8; Monocytes # (A) 0.5 k/uL (0-1.0); Monocytes % (A) 3 %; Neutrophils # (A) 12.7 k/uL (1.3-7.7); Neutrophils % (A) 88 %; Platelet Count 308 k/uL (150-450); RBC 6.09 m/uL (4.30-5.90); RDW 14.6 % (11.5-15.5); WBC 14.4 k/uL (3.8-10.6)
--- NOTE | 2017-02-15 01:13 | ED ---
General Adult HPI - General Chief complaint: Abdominal Pain Stated complaint: Abd Pain/Crams Time Seen by Provider: 02/15/17 00:41 Source: patient Mode of arrival: wheelchair Limitations: no limitations - History of Present Illness Initial comments: This patient is 61-year-old man who presents today with complaint that he is having muscle spasms and cramps. This been going on for number of hours now. He states that initially started with his abdominal wall. The cramps and spasms are currently in his legs. He does have a long intermittent history of this. Patient also has had vomiting and diarrhea. Patient denies chest pain, dyspnea, diaphoresis. -: hour(s) Location: abdomen, lower extremity Quality: other (Spasms) Consistency: colicky Improves with: none Worsens with: none Associated Symptoms: nausea/vomiting, other (diarrhea) - Related Data Home Medications Medication Instructions Recorded Confirmed cloNIDine HCL [Clonidine HCl] 0.1 mg PO TID 11/16/15 02/15/17 Levothyroxine Sodium [Synthroid] 75 mcg PO DAILY 05/04/16 02/15/17 Omeprazole 20 mg PO DAILY 05/04/16 02/15/17 Amitriptyline HCl [Elavil] 50 mg PO HS 05/14/16 02/15/17 Dicyclomine [Bentyl] 20 mg PO AC-TID PRN 05/31/16 02/15/17 Losartan [Cozaar] 50 mg PO DAILY 05/31/16 02/15/17 Aspirin [Adult Low Dose Aspirin EC] 81 mg PO DAILY 06/24/16 02/15/17 Diphenoxylate HCl/Atropine 1 tab PO Q8H PRN 07/19/16 02/15/17 [Lomotil 2.5-0.025 mg Tablet] Nitroglycerin Sl Tabs [Nitrostat] 0.4 mg SUBLINGUAL Q5M PRN 07/19/16 02/15/17 Cholecalciferol [Vitamin D3] 2,000 unit PO DAILY 09/23/16 02/15/17 Escitalopram [Lexapro] 30 mg PO DAILY 12/16/16 02/15/17 Previous Rx's Medication Instructions Recorded Ondansetron Odt [Zofran ODT] 4 mg PO Q8HR PRN #10 tab 08/04/17 Allergies Allergy/AdvReac Type Severity Reaction Status Date / Time Beta-Blockers Allergy Rash/Hives Verified 02/15/17 07:13 (Beta-Adrenergic Bloc paroxetine HCl [From Paxil] AdvReac Unknown Abdominal Verified 02/15/17 07:13 Pain Review of Systems ROS Statement: Those systems with pertinent positive or pertinent negative responses have been documented in the HPI. ROS Other: All systems not noted in ROS Statement are negative. Constitutional: Denies: fever, chills Respiratory: Denies: cough, dyspnea, wheezes Cardiovascular: Denies: chest pain, palpitations, edema, syncope Gastrointestinal: Reports: abdominal pain, nausea, vomiting, diarrhea. Denies: constipation, hematemesis, melena, hematochezia Genitourinary: Denies: dysuria, hematuria Musculoskeletal: Reports: other (Spasms). Denies: back pain Skin: Denies: rash Neurological: Denies: headache, weakness, numbness Past Medical History Past Medical History: Coronary Artery Disease (CAD), Chest Pain / Angina, GERD/ Reflux, Hyperlipidemia, Hypertension, Myocardial Infarction ([place]), Musculoskeletal Disorder, Osteoarthritis (OA), Pneumonia, Renal Disease, Thyroid Disorder Additional Past Medical History / Comment(s): Pt recently admitted to [facility] on 10/09/16 with abdominal pain, nausea/vomiting and dehydration. Other hx: Pt states he has had numerous MIs, lumbar sacral spinal stenosis, chronic low back pain with bilateral sciatica, pinched nerves in back, DIVERTICULITIS, IBS, bronchitis, migraines, numbness/tingling bilateral feet.SMALL HIATAL HERNIA PER EGD Last Myocardial Infarction Date:: 2013 History of Any Multi-Drug Resistant Organisms: None Reported Past Surgical History: Back Surgery, Cholecystectomy, Heart Catheterization With Stent, Hernia Repair, Orthopedic Surgery Additional Past Surgical History / Comment(s): COLONOSCOPY, EGD, ORIF LT ANKLE. BACK SURGERIES fusion L3-L5, LT HAND SURGERY, RT KNEE ARTHROSC, RT ELBOW SURG, LUMBAR SPINE CYST REMOVAL AT L2 IN 2013, HIATAL HERNIA REPAIR, right shoulder arthroscopy, back injections. Past Anesthesia/Blood Transfusion Reactions: No Reported Reaction Date of Last Stent Placement:: 2013 Past Psychological History: No Psychological Hx Reported Smoking Status: Former smoker Past Alcohol Use History: None Reported Past Drug Use History: Marijuana - Past Family History Mother Family Medical History: Thyroid Disorder Father Family Medical History: Diabetes Mellitus, Myocardial Infarction ([place]) Additional Family Medical History / Comment(s): [place], [place] in his 50's or 60's. from MVA when he was in his 80's Sister(s) Family Medical History: Cancer, Thyroid Disorder Additional Family Medical History / Comment(s): SKIN CA General Exam Limitations: no limitations General appearance: alert, in no apparent distress, anxious Head exam: Present: atraumatic, normocephalic Eye exam: Present: normal appearance. Absent: scleral icterus, conjunctival injection ENT exam: Present: normal oropharynx Neck exam: Present: normal inspection, full ROM Respiratory exam: Present: normal lung sounds bilaterally. Absent: respiratory distress, wheezes, rales, rhonchi, stridor Cardiovascular Exam: Present: regular rate, normal rhythm, normal heart sounds. Absent: systolic murmur, diastolic murmur, rubs, gallop GI/Abdominal exam: Present: soft. Absent: distended, tenderness, guarding, rebound, rigid, mass Extremities exam: Present: normal inspection, normal capillary refill. Absent: pedal edema, calf tenderness Back exam: Present: normal inspection. Absent: CVA tenderness (R), CVA tenderness (L) Neurological exam: Present: alert Skin exam: Present: warm, dry, intact, normal color. Absent: rash Course Vital Signs 02/14/17 02/15/17 02/15/17 21:49 03:11 07:00 Temperature 96.9 F L Pulse Rate 105 H 60 Respiratory 19 18 Rate Blood Pressure 136/89 160/80 148/87 O2 Sat by Pulse 98 98 Oximetry EKG Findings - EKG Results: EKG: interpreted by ERMD, sinus rhythm, normal axis, normal ST/T, not changed from: (Similar to comparison EKG) EKG shows: tachycardia (Rate approximately 101 bpm) - [place], Pacemaker, Normal: Myocardial infarction: inferior [place] (old age indeterminate) (Q waves in 2-3 and aVF.) Medical Decision Making - Medical Decision Making Patient is 61-year-old man presenting with spasms diffusely and found to have multiple lab abnormalities. Patient has history of multiple presentations for the same. Case discussed with his primary physician, who did reinforce that patient should not receive narcotics given past history of problems with improper use. In addition, we discussed nephrology and it turns at the patient has resolution with IV fluids of multiple similar episodes in the past and at this point consult held as expected that fluids will correct his creatinine. The patient did receive Valium for the spasms which did give some relief. - Lab Data Result diagrams: 02/15/17 00:20 02/15/17 00:20 Lab Results 02/15/17 02/15/17 02/15/17 Range/Units 00:20 00:20 00:20 WBC 14.4 H (3.8-10.6) k/uL RBC 6.09 H (4.30-5.90) m/uL Hgb 17.6 H (13.0-17.5) gm/dL Hct 51.6 (39.0-53.0) % MCV 84.7 (80.0-100.0) fL MCH 28.9 (25.0-35.0) pg MCHC 34.2 (31.0-37.0) g/dL RDW 14.6 (11.5-15.5) % Plt Count 308 (150-450) k/uL Neutrophils % 88 % Lymphocytes % 7 % Monocytes % 3 % Eosinophils % 0 % Basophils % 0 % Neutrophils # 12.7 H (1.3-7.7) k/uL Lymphocytes # 1.1 (1.0-4.8) k/uL Monocytes # 0.5 (0-1.0) k/uL Eosinophils # 0.0 (0-0.7) k/uL Basophils # 0.0 (0-0.2) k/uL Sodium 140 (137-145) mmol/L Potassium 4.3 (3.5-5.1) mmol/L Chloride 92 L (98-107) mmol/L Carbon Dioxide 19 L (22-30) mmol/L Anion Gap 29 mmol/L BUN 23 H (9-20) mg/dL Creatinine 3.20 H (0.66-1.25) mg/dL Est GFR (MDRD) Af Amer 24 (>60 ml/min/1.73 sqM) Est GFR (MDRD) Non-Af 20 (>60 ml/min/1.73 sqM) Glucose 137 H (74-99) mg/dL Calcium 12.2 H (8.4-10.2) mg/dL Magnesium 1.9 (1.6-2.3) mg/dL Total Bilirubin 1.3 (0.2-1.3) mg/dL AST 26 (17-59) U/L ALT 43 (21-72) U/L Alkaline Phosphatase 131 H (38-126) U/L Total Creatine Kinase 151 (55-170) U/L CK-MB (CK-2) 4.2 H* (0.0-2.4) ng/mL CK-MB (CK-2) Rel Index 2.8 Troponin I 0.028 (0.000-0.034) ng/mL Total Protein 9.6 H (6.3-8.2) g/dL Albumin 5.9 H (3.5-5.0) g/dL Amylase 63 (30-110) U/L Lipase 97 (23-300) U/L Disposition Clinical Impression: Acute on chronic renal failure, Nausea & vomiting, Muscle spasm Disposition: ADMITTED IP TO THIS HOSP Condition: Fair
[2017-02-15 01:16] LABS: Albumin 5.9 g/dL (3.5-5.0); Calcium 12.2 mg/dL (8.4-10.2); Magnesium 1.9 mg/dL (1.6-2.3); Potassium 4.3 mmol/L (3.5-5.1); Total Bilirubin 1.3 mg/dL (0.2-1.3); Total Protein 9.6 g/dL (6.3-8.2)
--- NOTE | 2017-02-15 01:20 | XR ---
EXAMINATION TYPE: XR abdomen acute w cxr DATE OF EXAM: 02/15/2017 COMPARISON: 12/16/2016 HISTORY: Vomiting and cramping TECHNIQUE: 5 views FINDINGS: There is no heart failure nor confluent pneumonic infiltrate. There is some coarsening of interstitia l markings. There is no sign of intestinal obstruction or pneumoperitoneum. Fecal pattern is normal. There are clips from cholecystectomy. There are chest leads. There is no sign of pleural effusion. Th ere is multilevel lumbar fusion surgery. IMPRESSION: Mild pulmonary fibrotic changes. Nonacute abdomen.
[2017-02-15 02:14] LABS: Troponin I 0.028 ng/mL (0.000-0.034)
[2017-02-15 02:23] LABS: Creatine Kinase MB 4.2 ng/mL (0.0-2.4)
[2017-02-15] MEDS ORDERED: ONDANSETRON 4 MG/2 ML VIAL IVP STA (03:14)
[2017-02-15] MEDS ORDERED: PANTOPRAZOLE 40 MG TABLET PO STA (03:48)
[2017-02-15] MEDS ORDERED: NALOXONE 0.4 MG/ML 1 ML VIAL IV PRN (05:36)
[2017-02-15] MEDS ORDERED: ONDANSETRON 4 MG/2 ML VIAL IVP PRN (05:36)
[2017-02-15] MEDS ORDERED: ENALAPRILAT 1.25 MG/ML 1 ML VIAL IVP STA (06:47)
[2017-02-15] MEDS: SODIUM CHLORIDE 0.9% 1,000 ML IV SCH ×2 (08:04→15:09)
[2017-02-15] MEDS ORDERED: NITROGLYCERIN SL TABS 0.4 MG TAB SUBLINGUAL PRN (11:39)
[2017-02-15] MEDS ORDERED: ONDANSETRON ODT 4 MG TAB PO PRN (11:39)
[2017-02-15] MEDS ORDERED: DICYCLOMINE 20 MG TAB PO PRN (11:39)
[2017-02-15] MEDS ORDERED: DIPHENOX-ATROP 2.5-0.025 MG 1 EACH TAB PO PRN (11:39)
[2017-02-15] MEDS: FAMOTIDINE 20 MG TAB PO SCH ×2 (11:44→20:11)
--- NOTE | 2017-02-15 13:07 | P.HPIM ---
History of Present Illness H&P Date: 02/15/17 Chief Complaint: Leg cramps 61-year-old male presented to emergency room on 02/15/2017 with a chief complaint of leg cramps, nausea, and vomiting. In the emergency room an abdominal x-ray was completed which was negative for an acute process. Chest x-ray was completed which revealed mild pulmonary fibrotic changes. EKG was completed revealing sinus tachycardia and no significant changes from previous EKG. Laboratory studies revealed sodium 140. Potassium 4.3. B UN 23. Creatinine 3.2. Diabetes 14.4. Hemoglobin 17.6. Magnesium 1.9. Troponin 0.028. The patient has a history of coronary artery disease, gastroesophageal reflux disease, hypertension, hyperlipidemia, and history of opioid abuse. Patient has a history of multiple heart attacks and the patient states he has had "over 10 heart attacks". He states he had a stent placement in 2007 and 2013. Most recent echocardiogram is from October 2016 which reveals an ejection fraction of 55-60%. The patient has had multiple hospitalizations with similar symptoms of nausea, vomiting, and abdominal pain including October 2016 and December 2016. During his hospitalizations, the patient has found to be in acute renal failure. He was hydrated with IV fluids and his kidney function normalizes and his symptoms subside. The patient also has a history of irritable bowel syndrome and persistent GI symptoms of nausea, vomiting, and diarrhea lasting for the past 5 years. The patient takes Bentyl and Lomotil at home. He underwent GI workup in 2016 including EGD in May 2016 which showed mild antral gastritis, small hiatal hernia, and no evidence of peptic ulcer disease. The patient's GI symptoms seem to coincide with his daily cannabis use. The patient has been encouraged multiple times to discontinue marijuana use. The patient was seen and examined at the bedside in the emergency room. He is currently awaiting a bed assignment on general medical floor. He states he is feeling slightly better than when he presented to the emergency room. He states his abdominal pain has improved. He was having episodes of nausea and vomiting earlier, which he states has resolved at the moment. He states he did notice a small amount of blood in his emesis at home. He continues to complain of leg cramps. The patient is requesting medication to help him sleep at night and is requesting the "same medication Dr. Nava gave me last time". The patient states he continues to smoke marijuana on a daily basis, but states he has decreased the amount. He reports the last time he smoked marijuana was Tuesday night and his symptoms started Tuesday morning. Review of Systems GENERAL: Patient denies fever. Denies chills. EYES: Denies blurred vision. Denies vision changes. Denies eye pain. EARS, NOSE, MOUTH, & THROAT: Denies headache. Denies sore throat. Denies ear pain. RESPIRATORY: Denies cough. Denies shortness of breath. Denies sputum production. Denies hemoptysis. CARDIOVASCULAR: Denies chest pain or pressure. Denies palpitations. Denies arrhythmias. GASTROINTESTINAL: Positive for nausea, vomiting, diarrhea, heartburn, and abdominal pain. Positive for episode of blood in emesis. GENITOURINARY: Denies urinary frequency. Denies burning. Denies dysuria. Denies cloudy urine. Denies blood in the urine. MUSCULOSKELETAL: Positive for bilateral lower extremity cramping and spasms. Denies joint swelling. Denies decreased range of motion beyond patients baseline. INTEGUMENTARY: Denies pruitis. Denies rash. PSYCHIATRIC: Denies suicidal or homicial ideations. ENDOCRINE: Denies weight change. Denies polydipsia. Denies polyuria. HEMATOLOGIC: Denies bleeding disorders. Past Medical History Past Medical History: Coronary Artery Disease (CAD), Chest Pain / Angina, GERD/ Reflux, Hyperlipidemia, Hypertension, Myocardial Infarction ([place]), Musculoskeletal Disorder, Osteoarthritis ([place]), Pneumonia, Renal Disease, Thyroid Disorder Additional Past Medical History / Comment(s): Pt states he has had numerous MIs , lumbar sacral spinal stenosis, chronic low back pain with bilateral sciatica, pinched nerves in back, abdominal pain, DIVERTICULITIS, IBS, renal insufficiency with dehydration, bronchitis, migraines, numbness/tingling bilateral feet.SMALL HIATAL HERNIA. Last Myocardial Infarction Date:: 2013 History of Any Multi-Drug Resistant Organisms: None Reported Past Surgical History: Back Surgery, Cholecystectomy, Heart Catheterization With Stent, Hernia Repair, Orthopedic Surgery Additional Past Surgical History / Comment(s): COLONOSCOPY, EGD, ORIF LT ANKLE, 2ND L ANKLE SX, BACK SURGERIES fusion L3-L5, LT HAND SURGERY D/T FRACTURE, RT KNEE ARTHROSCOPIC X 2, RT ELBOW TENDON RELEASE SURG, LUMBAR SPINE CYST REMOVAL AT L2 IN 2014, HIATAL HERNIA REPAIR, right shoulder arthroscopy, back injections. Past Anesthesia/Blood Transfusion Reactions: No Reported Reaction Date of Last Stent Placement:: 2013 Smoking Status: Former smoker - Past Family History Mother Family Medical History: Thyroid Disorder Additional Family Medical History / Comment(s): Mother is living. Father Family Medical History: Diabetes Mellitus, Myocardial Infarction ([place]) Additional Family Medical History / Comment(s): [place] in his 50's or 60's. from MVA when he was in his 80's Sister(s) Family Medical History: Cancer, Thyroid Disorder Additional Family Medical History / Comment(s): SKIN CA Medications and Allergies Home Medications Medication Instructions Recorded Confirmed Type cloNIDine HCL [Clonidine HCl] 0.1 mg PO TID 11/16/15 02/15/17 History Levothyroxine Sodium [Synthroid] 75 mcg PO DAILY 05/04/16 02/15/17 History Omeprazole 20 mg PO DAILY 05/04/16 02/15/17 History Amitriptyline HCl [Elavil] 50 mg PO HS 05/14/16 02/15/17 History Dicyclomine [Bentyl] 20 mg PO AC-TID PRN 05/31/16 02/15/17 History Losartan [Cozaar] 50 mg PO DAILY 05/31/16 02/15/17 History Aspirin [Adult Low Dose Aspirin EC] 81 mg PO DAILY 06/24/16 02/15/17 History Diphenoxylate HCl/Atropine 1 tab PO Q8H PRN 07/19/16 02/15/17 History [Lomotil 2.5-0.025 mg Tablet] Nitroglycerin Sl Tabs [Nitrostat] 0.4 mg SUBLINGUAL Q5M PRN 07/19/16 02/15/17 History Ondansetron Odt [Zofran ODT] 4 mg PO Q8HR PRN #10 tab 09/10/16 02/15/17 Rx Cholecalciferol [Vitamin D3] 2,000 unit PO DAILY 09/23/16 02/15/17 History Escitalopram [Lexapro] 30 mg PO DAILY 12/16/16 02/15/17 History Allergies Allergy/AdvReac Type Severity Reaction Status Date / Time Beta-Blockers Allergy Rash/Hives Verified 02/15/17 07:13 (Beta-Adrenergic Bloc paroxetine HCl [From Paxil] AdvReac Unknown Abdominal Verified 02/15/17 07:13 Pain Physical Exam Vitals: Vital Signs Temp Pulse Resp BP Pulse Ox 02/15/17 11:20 94 18 170/90 98 02/15/17 10:16 94 18 188/100 97 02/15/17 08:07 96 20 157/89 02/15/17 07:44 67 18 139/79 97 02/15/17 07:00 60 18 148/87 98 02/15/17 03:11 160/80 02/14/17 21:49 96.9 F L 105 H 19 136/89 98 Intake and Output 02/14/17 02/15/17 02/15/17 22:59 06:59 14:59 Other: Weight 99.79 kg GENERAL: This is a 61-year-old male in no apparent distress at the time of examination. Pleasant and cooperative. HEENT: Head is atraumatic, normocephalic. Pupils are equal, round, and reactive to light. Sclerae anicteric. Conjunctivae are clear. Mucus membranes of the mouth are moist. Neck is supple. RESPIRATORY: Clear to ausculation. No wheezes, rales, or rhonchi. No use of accessory muscles. Patient maintaining oxygen saturation greater than 92%. No chest wall tenderness is noted on palpation or with deep breathing. CARDIOVASCULAR: Regular rate and rhythm. S1 and S2 noted. No systolic or diastolic murmur auscultated. No JVD noted. No S3 or S4 noted. GASTROINTESTINAL: No distention noted. Abdomen soft and round. Normal active bowel sounds auscultated x 4 quadrants. Pain and tenderness noted upon palpation. INTEGUMENTARY: No cyanosis. No jaundice. No rashes noted. No cellulitis noted. EXTREMITIES: 2+ peripheral pulses. No evidence of peripheral edema. No calf tenderness noted. NEUROLOGIC: Cranial nerves II-XII intact. PSYCHIATRIC: Awake, alert, and oriented X 3. Appropriate affect. Intact judgement and insight. Results CBC & Chem 7: 02/15/17 00:20 02/15/17 00:20 Labs: Abnormal Lab Results - Last 24 Hours (Table) 02/15/17 02/15/17 02/15/17 Range/Units 00:20 00:20 00:20 WBC 14.4 H (3.8-10.6) k/uL RBC 6.09 H (4.30-5.90) m/uL Hgb 17.6 H (13.0-17.5) gm/dL Neutrophils # 12.7 H (1.3-7.7) k/uL Chloride 92 L (98-107) mmol/L Carbon Dioxide 19 L (22-30) mmol/L BUN 23 H (9-20) mg/dL Creatinine 3.20 H (0.66-1.25) mg/dL Glucose 137 H (74-99) mg/dL Calcium 12.2 H (8.4-10.2) mg/dL Alkaline Phosphatase 131 H (38-126) U/L CK-MB (CK-2) 4.2 H* (0.0-2.4) ng/mL Total Protein 9.6 H (6.3-8.2) g/dL Albumin 5.9 H (3.5-5.0) g/dL Thrombosis Risk Factor Assmnt - Choose All That Apply Any of the Below Risk Factors Present?: Yes Each Factor Represents 1 point: Obesity (BMI >25) Other Risk Factors: Yes Each Risk Factor Represents 2 Points: Age 61-74 years Other congenital or acquired thrombophilia - If yes, enter type in comment: No Thrombosis Risk Factor Assessment Total Risk Factor Score: 3 Thrombosis Risk Factor Assessment Level: Moderate Risk Assessment and Plan Plan: ASSESSMENT: Acute kidney injury, creatinine 3.20 on admission, baseline 0.8-1.2, likely secondary to dehydration Nausea, vomiting, and abdominal pain, present on admission, abdominal x-ray negative, possible cannabinoid hyperemesis syndrome Bilateral lower extremity myalgias, likely secondary to dehydration Leukocytosis, present on admission, no evidence of sepsis Coronary artery disease with previous stenting 2 History of chronic pain with opioid dependency and abuse Essential hypertension Hyperlipidemia Cannabis use disorder, patient is a daily marijuana smoker Obesity: BMI 30.7 PLAN: -Defer consult to nephrology at this time -Continue IV fluids at 125 mL an hour -Home meds as appropriate -Monitor labs. Recheck in a.m. -No narcotics to be ordered as patient has history of opioid abuse -Patient requesting Ativan at HS. Coay per Dr. Nava -Urinalysis and urine drug screen -Encourage cannabis cessation -GI prophylaxis: Pepcid 40 mg by mouth twice a day -DVT prophylaxis: Heparin 5000 units subcu every 8 hours -Monitor vital signs and address as appropriate -Discharge planning: patient to return home when stable -Further recommendations pending patient's course Nurse practitioner note has been reviewed by physician. Signing provider agrees with the documented findings, assessment, and plan of care.
[2017-02-15] MEDS ORDERED: LORazepam 2 MG/ML INJ IV PRN (13:13)
[2017-02-15 13:26] LABS: Amphetamine Screen,Urine Not Detected (NotDetected); Barbiturate Screen,Urine Not Detected (NotDetected); Benzodiazepines Screen,Urine Detected (NotDetected); Cocaine Screen,Urine Not Detected (NotDetected); Methadone Screen, Urine Not Detected (NotDetected); Opiate Screen,Urine Not Detected (NotDetected); Oxycodone Screen, Urine Not Detected (NotDetected); Phencyclidine Screen,Urine Not Detected (NotDetected); Tricyclic Antidepressant,Urine Not Detected (NotDetected); Urn Cannabinoid Scrn Detected (NotDetected)
[2017-02-15 13:42] LABS: Appearance,Urine Cloudy (Clear); Bacteria,Urine Rare /hpf; Bilirubin,Urine Negative (Negative); Blood,Urine Trace (Negative); Color,Urine Yellow; Glucose,Urine (UA) Trace (Negative); Granular Casts,Urine 1 /lpf (0); Hyaline Casts,Urine 57 /lpf (0-2); Ketones,Urine Trace (Negative); Leukocyte Esterase,Urine Negative (Negative); Mucus,Urine Few /hpf; Nitrite,Urine Negative (Negative); Protein,Urine 2+ (Negative); RBC,Urine 2 /hpf (0-5); Specific Gravity,Urine 1.018 (1.001-1.035); Squamous Epithelial Cell,Urine 1 /hpf (0-4); Urobilinogen,Urine <2.0 mg/dL (<2.0); WBC,Urine 12 /hpf (0-5); White Blood Cell Casts,Urine 4 /lpf (0)
[2017-02-15 14:20] VITALS: RESP 16
[2017-02-15] MEDS: LOSARTAN 50 MG TAB PO SCH (14:51)
[2017-02-15] MEDS: HEPARIN SODIUM,PORCINE 5,000 UNIT/ML 1 ML VIAL SQ SCH ×2 (15:29→22:11)
[2017-02-15] MEDS: cloNIDine HCL 0.1 MG TAB PO SCH ×2 (15:31→22:11)
[2017-02-15] MEDS ORDERED: AMITRIPTYLINE HCL 50 MG TAB PO SCH (21:00)
[2017-02-16 00:29] VITALS: TEMP 97.4
[2017-02-16] MEDS: SODIUM CHLORIDE 0.9% 1,000 ML IV SCH ×2 (05:53→08:05)
[2017-02-16] MEDS ORDERED: LEVOTHYROXINE 75 MCG TAB PO SCH (06:30)
[2017-02-16] MEDS ORDERED: PANTOPRAZOLE 40 MG TABLET PO SCH (07:30)
[2017-02-16 07:34] VITALS: BP 134/87; PULSE 80
[2017-02-16] MEDS: HEPARIN SODIUM,PORCINE 5,000 UNIT/ML 1 ML VIAL SQ SCH (08:05)
[2017-02-16] MEDS: FAMOTIDINE 20 MG TAB PO SCH (08:05)
[2017-02-16] MEDS: LOSARTAN 50 MG TAB PO SCH (08:05)
[2017-02-16] MEDS: cloNIDine HCL 0.1 MG TAB PO SCH (08:05)
[2017-02-16 08:20] LABS: Basophils % (A) 0 %; Eosinophils # (A) 0.1 k/uL (0-0.7); Eosinophils % (A) 1 %; HCT 41.6 % (39.0-53.0); Lymphocytes # (A) 1.8 k/uL (1.0-4.8); Lymphocytes % (A) 18 %; MCH 29.9 pg (25.0-35.0); MCHC 34.5 g/dL (31.0-37.0); MCV 86.7 fL (80.0-100.0); Mean Platelet Volume 7.2; Monocytes # (A) 0.7 k/uL (0-1.0); Monocytes % (A) 7 %; Neutrophils # (A) 7.1 k/uL (1.3-7.7); Neutrophils % (A) 72 %; Platelet Count 232 k/uL (150-450); RDW 13.4 % (11.5-15.5); WBC 9.8 k/uL (3.8-10.6)
[2017-02-16 08:21] LABS: ALT 38 U/L (21-72); AST 39 U/L (17-59); Albumin 4.1 g/dL (3.5-5.0); Alkaline Phosphatase 84 U/L (38-126); Anion Gap 11 mmol/L; Blood Urea Nitrogen 28 mg/dL (9-20); Calcium 9.7 mg/dL (8.4-10.2); Carbon Dioxide 21 mmol/L (22-30); Chloride 105 mmol/L (98-107); Glucose 103 mg/dL (74-99); Potassium 4.2 mmol/L (3.5-5.1); Sodium 137 mmol/L (137-145); Total Protein 6.5 g/dL (6.3-8.2)
[2017-02-16 08:26] LABS: HGB 14.3 gm/dL (13.0-17.5)
[2017-02-16] MEDS ORDERED: ESCITALOPRAM 10 MG TAB PO SCH (09:00)
[2017-02-16] MEDS ORDERED: ASPIRIN 81 MG PO SCH (09:00)
--- NOTE | 2017-02-16 10:44 | P.DS ---
Providers Date of admission: 02/15/17 05:45 Expected date of discharge: 02/16/17 Attending physician: Miki Nava Primary care physician: Miki Nava [facility] Course: 61-year-old male presented to emergency room on 02/15/2017 with a chief complaint of leg cramps, nausea, and vomiting. In the emergency room an abdominal x-ray was completed which was negative for an acute process. Chest x-ray was completed which revealed mild pulmonary fibrotic changes. EKG was completed revealing sinus tachycardia and no significant changes from previous EKG. Laboratory studies revealed sodium 140. Potassium 4.3. B UN 23. Creatinine 3.2. WBC 14.4. Hemoglobin 17.6. Magnesium 1.9. Troponin 0.028. The patient has a history of coronary artery disease, gastroesophageal reflux disease, hypertension, hyperlipidemia, and history of opioid abuse. Patient has a history of multiple heart attacks and the patient states he has had "over 10 heart attacks". He states he had a stent placement in 2007 and 2013. Most recent echocardiogram is from October 2016 which reveals an ejection fraction of 55-60%. The patient has had multiple hospitalizations with similar symptoms of nausea, vomiting, and abdominal pain including October 2016 and December 2016. During his hospitalizations, the patient has found to be in acute renal failure. He was hydrated with IV fluids and his kidney function normalizes and his symptoms subside. The patient also has a history of irritable bowel syndrome and persistent GI symptoms of nausea, vomiting, and diarrhea lasting for the past 5 years. The patient takes Bentyl and Lomotil at home. He underwent GI workup in 2016 including EGD in May 2016 which showed mild antral gastritis, small hiatal hernia, and no evidence of peptic ulcer disease. The patient's GI symptoms seem to coincide with his daily cannabis use. The patient has been encouraged multiple times to discontinue marijuana use. The patient states he continues to smoke marijuana on a daily basis, but states he has decreased the amount. He reports the last time he smoked marijuana was Tuesday night and his symptoms started Tuesday morning. He was evaluated on 02/16/[address] Nava and was deemed stable for discharge. He is no longer having nausea or vomiting. His leg cramps have improved. His creatinine is down to 1.26 this morning. He is to follow up with Dr. Nava on an outpatient basis. He was encouraged to avoid marijuana use. DISCHARGE DIAGNOSIS: Acute kidney injury, creatinine 3.20 on admission, baseline 0.8-1.2, likely secondary to dehydration, resolved at the time of discharge Nausea, vomiting, and abdominal pain, present on admission, abdominal x-ray negative, possible cannabinoid hyperemesis syndrome, resolved at the time of discharge Bilateral lower extremity myalgias, likely secondary to dehydration, resolved at the time of discharge Leukocytosis, present on admission, no evidence of sepsis Coronary artery disease with previous stenting 2 History of chronic pain with opioid dependency and abuse Essential hypertension Hyperlipidemia Cannabis use disorder, patient is a daily marijuana smoker Obesity: BMI 30.7 Nurse practitioner note has been reviewed by physician. Signing provider agrees with the documented findings, assessment, and plan of care. Patient Condition at Discharge: Stable Plan - Discharge Summary Discharge Rx Participant: No New Discharge Prescriptions: Continue cloNIDine HCL [Clonidine HCl] 0.1 mg PO TID Levothyroxine Sodium [Synthroid] 75 mcg PO DAILY Omeprazole 20 mg PO DAILY Amitriptyline HCl [Elavil] 50 mg PO HS Losartan [Cozaar] 50 mg PO DAILY Dicyclomine [Bentyl] 20 mg PO AC-TID PRN PRN Reason: Abdominal Cramping Aspirin [Adult Low Dose Aspirin EC] 81 mg PO DAILY Nitroglycerin Sl Tabs [Nitrostat] 0.4 mg SUBLINGUAL Q5M PRN PRN Reason: Chest Pain Diphenoxylate HCl/Atropine [Lomotil 2.5-0.025 mg Tablet] 1 tab PO Q8H PRN PRN Reason: Diarrhea Ondansetron Odt [Zofran ODT] 4 mg PO Q8HR PRN #10 tab PRN Reason: Nausea Cholecalciferol [Vitamin D3] 2,000 unit PO DAILY Escitalopram [Lexapro] 30 mg PO DAILY Discharge Medication List cloNIDine HCL [Clonidine HCl] 0.1 mg PO TID 11/16/15 [History] Levothyroxine Sodium [Synthroid] 75 mcg PO DAILY 05/04/16 [History] Omeprazole 20 mg PO DAILY 05/04/16 [History] Amitriptyline HCl [Elavil] 50 mg PO HS 05/14/16 [History] Dicyclomine [Bentyl] 20 mg PO AC-TID PRN 05/31/16 [History] Losartan [Cozaar] 50 mg PO DAILY 05/31/16 [History] Aspirin [Adult Low Dose Aspirin EC] 81 mg PO DAILY 06/24/16 [History] Diphenoxylate HCl/Atropine [Lomotil 2.5-0.025 mg Tablet] 1 tab PO Q8H PRN [History] Nitroglycerin Sl Tabs [Nitrostat] 0.4 mg SUBLINGUAL Q5M PRN 07/19/16 [History] Ondansetron Odt [Zofran ODT] 4 mg PO Q8HR PRN #10 tab 09/10/16 [Rx] Cholecalciferol [Vitamin D3] 2,000 unit PO DAILY 09/23/16 [History] Escitalopram [Lexapro] 30 mg PO DAILY 12/16/16 [History] Follow up Appointment(s)/Referral(s): Miki Nava DO [Primary Care Provider] - 1 Week Activity/Diet/Wound Care/Special Instructions: Avoid marijuana use Discharge Disposition: HOME SELF-CARE
[2017-02-16] MEDS ORDERED: CHOLECALCIFEROL 1,000 UNIT TAB PO SCH (12:00)
== END 2017-02-16 11:34 | disposition home or self-care (01) | DRG 683 ==
LOC: EC 21:19 → 4MS4W 02-15 05:45
PROVIDERS: ADMIT Family Medicine; ATTEND Family Medicine
DX: N17.9 Acute kidney failure, unspecified (principal); F11.20 Opioid dependence, uncomplicated; D72.829 Elevated white blood cell count, unspecified; E86.0 Dehydration; F12.90 Cannabis use, unspecified, uncomplicated; I25.10 Atherosclerotic heart disease of native coronary artery without angina pectoris; I25.2 Old myocardial infarction; E66.9 Obesity, unspecified; E78.5 Hyperlipidemia, unspecified; K21.9 Gastro-esophageal reflux disease without esophagitis; K58.0 Irritable bowel syndrome with diarrhea; E07.9 Disorder of thyroid, unspecified; G43.909 Migraine, unspecified, not intractable, without status migrainosus; G89.29 Other chronic pain; K44.9 Diaphragmatic hernia without obstruction or gangrene; M19.90 Unspecified osteoarthritis, unspecified site; M54.41 Lumbago with sciatica, right side; M54.42 Lumbago with sciatica, left side; M79.1 Myalgia; I10 Essential (primary) hypertension; M48.07 Spinal stenosis, lumbosacral region; K57.90 Diverticulosis of intestine, part unspecified, without perforation or abscess without bleeding; F12.988 Cannabis use, unspecified with other cannabis-induced disorder; R11.2 Nausea with vomiting, unspecified; Z68.30 Body mass index [BMI] 30.0-30.9, adult; Z79.82 Long term (current) use of aspirin; Z79.899 Other long term (current) drug therapy; Z87.891 Personal history of nicotine dependence; Z95.5 Presence of coronary angioplasty implant and graft; Z88.8 Allergy status to other drugs, medicaments and biological substances; Z98.1 Arthrodesis status; Z82.49 Family history of ischemic heart disease and other diseases of the circulatory system
CPT/HCPCS: 36415; 74022; 80053; 80306; 81001; 82150; 82550; 82553; 83690; 83735; 84484; 85025; 93005; 96360; 96361; 96374; 96375; 96376; 99285

== ENCOUNTER → 2017-02-17 | Outpatient (CLI) | payer MEDICARE ==
[2017-02-17 12:53] VITALS: PULSE 82; RESP 16
--- NOTE | 2017-02-17 13:25 | P.PN ---
Subjective Progress Note Date: 02/17/17 This is follow-up visit for this patient with a history of severe and chronic low back pain secondary to lumbar degenerative disc diseases , lumbar spondylosis with facet arthropathy, And patient had postlaminectomy surgery syndrome ,we have done radiofrequency ablation of the medial branch lumbar area in August 2016, and this helped his low back pain significantly currently is complaining of severe radicular pain to the left lower extremity associated with numbness and tingling sensation Patient denies any motor or sensory deficit , patient denies any fever or night sweats, denies any change in the bowel movements or urination Physical Examinations : 1-Constitutiona : Cooperative , not in acute distress . 2-HEENT : nech ; supple , no Lymphadenopathy , no Thyromegaly , normal thyroid size . eyes : no ptosis , no icterus, no photophobia . ENT : normal of hearing , normal oropharynx , no Thrush . 3- Respiratory : Chest clear to auscultations Bilaterally , no wheezing , no Rhonchi . 4- Cardiovascular : regular rate and rhythem , S1 , S2 , no S3 , no S4. 5- Gastrointestinal : abdomen soft no tenderness , bowel sounds positive all four quadrents , no organomegally . 6- Genitourinary : Defferred . 7- neurologic : Cranial nerve II to XII intact , no focal neurological deffecit . 8-psychatric : alert , oriented X 3 , appropriate affect , intact judgment and insight . 9-Lymphatic : no Lymphadenopathy . 10- musculoskeltal : exams of the cervical spine = motor strength normal bilateral upper extremities facet loading test cervical area positive. exams of the Lumber spine = motor strength lower extremities ,thigh and legs .5/5 deep tendon reflexes : normal Knee Jerk , normal ankle Jerk . lumber facet Loading Test negative strait leg raising test positive at 30 degree , RT ,LT , Fabere test positive RT and positive LT . Range of motion: Range of motion in flexion of the lumbar spine 30 degrees Range of motion range of motion of extension of the lumbar spine 10 Assessment and plan = Chronic low back pain secondary to lumbar degenerative disc disease , lumbar spondylosis with facet arthropathy without myelopathy , postlaminectomy pain syndrome lumbar area, low back pain improved after the radiofrequency ablation of the medial branch which was done more than 6 months ago, currently patient complaining of radicular symptoms L5 and S1 distribution, mainly on the left side. This reason patient could benefit from caudal epidural steroid injections with lysis of epidural adhesions Procedure risk and benefits and alternatives discussed with the patient and he agreed with proceeding also patient could benefit from Neurontin 100 mg every 8 hours ,it will be increasd, in the future to 300 mg every 8 hours Objective - Vital Signs Vital signs: Vital Signs Temp Pulse 82 02/17/17 12:36 Resp 16 02/17/17 12:36 BP Pulse Ox 98 02/17/17 12:36 Intake & Output 02/16/17 02/17/17 02/17/17 18:59 06:59 18:59 Weight 99.79 kg
== END | disposition home or self-care (01) ==
LOC: PNWHC3 12:18
PROVIDERS: ATTEND Specialist
DX: G89.29 Other chronic pain (principal); M54.5 Low back pain; M51.36 Other intervertebral disc degeneration, lumbar region; M47.816 Spondylosis without myelopathy or radiculopathy, lumbar region; M46.86 Other specified inflammatory spondylopathies, lumbar region; M96.1 Postlaminectomy syndrome, not elsewhere classified
CPT/HCPCS: 99211

== ENCOUNTER 2017-03-16 08:43 | Day surgery (SDC) | payer MEDICARE ==
[2017-03-14 08:57] VITALS: BMI 30.2
[2017-03-16 09:48] VITALS: TEMP 96.7
[2017-03-16] MEDS: LACTATED RINGERS 1,000 ML IV ONE ×2 (09:56→10:38)
[2017-03-16] MEDS ORDERED: LIDOCAINE 1% 20 ML VIAL (10MG/ML) FOR IV START INTRADERMA ONE (09:57)
--- NOTE | 2017-03-16 10:58 | P.PCN ---
Date of Procedure: 03/16/17 Procedure(s) Performed: PREOPERATIVE DIAGNOSIS: Lumbar post laminectomy syndrome. POSTOPERATIVE DIAGNOSIS: Lumbar post laminectomy syndrome. PROCEDURE: 1. Caudal epidural steroid injection under fluoroscopic guidance. 2. Caudal epidurogra ANESTHESIA: Local with 1% lidocaine; 5ml for subcutaneous infiltrations and IV versed 2 mg ,and fentanyl 100 mcg EBL: None. PROCEDURE INDICATION: The patient with neuropathic pain radiating distally returns for caudal epidural steroid injection. PROCEDURE DESCRIPTION: The patient was seen and identified in the preoperative area. Risks, benefits, complications, and alternatives were discussed with the patient. The patient agreed to proceed with the procedure and signed the consent. IV was started, and vital signs were stable. Patient was taken to the OR and time out was completed. The patient was placed in the prone position on procedure table and a pillow was placed under the abdomen to reduce lumbar lordosis. The lumbosacral area was prepped and draped in the usual sterile fashion. Critical pause was taken. Vital signs were closely monitored during the procedure. Using lateral fluoroscopy the anterior-posterior plates of the sacrum were identified and the skin and deeper tissues corresponding into sacrococcygeal ligament were anesthetized using approximately 3 mL of 1% lidocaine. Then under fluoroscopy, a 3-1/2-inch 20-gauge Tuohy epidural needle was guided through the sacrococcygeal ligament, and into the epidural space. After negative aspiration , a 2 mL of omnipaque-180 contrast dye was injected with excellent epidurogram. Again after negative aspiration for CSF, blood, and with no paresthesias, Kenalog 80mg, 2ml of 1% preservative free Lidocaine with 6 ml of preservative free normal saline(total of 10ml)solution was injected with washout of epidurogram. Needle was withdrawn intact. Skin was cleansed, and bandage was applied. COMPLICATIONS: None DISPOSITION / PLANS: The patient was placed in a supine position and transferred to the recovery area in a stable condition for observation and was discharged from the recovery room after meeting discharge criteria. Home discharge instructions given to the patient by the staff. The patient was reexamined prior to discharge. The patient will schedule a follow up in the clinic in 2-4 weeks.
[2017-03-16] MEDS ORDERED: IV FLUID CONTINUATION 1,000 ML IV ONE (11:10)
[2017-03-16 11:19] VITALS: RESP 16
--- NOTE | 2017-03-16 11:19 | FL ---
EXAMINATION TYPE: FL guided pain mgmt statistic DATE OF EXAM: 03/16/2017 HISTORY: Flouroscopy time 7 seconds of fluoroscopy provided. IMPRESSION: 1. Fluoroscopy time.
[2017-03-16 11:47] VITALS: BP 143/90; PULSE 69
== END 2017-03-16 11:45 | disposition home or self-care (01) ==
LOC: ORPAIN 08:43
PROVIDERS: ATTEND Specialist
DX: M96.1 Postlaminectomy syndrome, not elsewhere classified (principal); Z88.8 Allergy status to other drugs, medicaments and biological substances
CPT/HCPCS: 62323; J2250; J3301; Q9965; J3010; 99152

== ENCOUNTER 2017-04-07 06:32 | Day surgery (SDC) | payer MEDICARE ==
[2017-04-05 10:34] VITALS: BMI 30.9
[~2017-04-07 06:32] MED LIST changes: -IV FLUID CONTINUATION 250 ML IV ONE; -LIDOCAINE 1% 20 ML VIAL (10MG/ML) FOR IV START INTRADERMA ONE
[2017-04-07] MEDS ORDERED: LIDOCAINE 1% 20 ML VIAL (10MG/ML) FOR IV START INTRADERMA ONE (06:53)
[2017-04-07 06:57] VITALS: RESP 16; TEMP 98
--- NOTE | 2017-04-07 07:24 | P.PCN ---
Date of Procedure: 04/07/17 Procedure(s) Performed: PREOPERATIVE DIAGNOSIS: Lumbar post laminectomy syndrome. POSTOPERATIVE DIAGNOSIS: Lumbar post laminectomy syndrome. PROCEDURE: 1. Caudal epidural steroid injection under fluoroscopic guidance. 2. Caudal epidurogra ANESTHESIA: Local with 1% lidocaine; 5ml for subcutaneous infiltrations and IV versed 4 mg ,and fentanyl 100 mcg EBL: None. PROCEDURE INDICATION: The patient with neuropathic pain radiating distally returns for caudal epidural steroid injection. PROCEDURE DESCRIPTION: The patient was seen and identified in the preoperative area. Risks, benefits, complications, and alternatives were discussed with the patient. The patient agreed to proceed with the procedure and signed the consent. IV was started, and vital signs were stable. Patient was taken to the OR and time out was completed. The patient was placed in the prone position on procedure table and a pillow was placed under the abdomen to reduce lumbar lordosis. The lumbosacral area was prepped and draped in the usual sterile fashion. Critical pause was taken. Vital signs were closely monitored during the procedure. Using lateral fluoroscopy the anterior-posterior plates of the sacrum were identified and the skin and deeper tissues corresponding into sacrococcygeal ligament were anesthetized using approximately 3 mL of 1% lidocaine. Then under fluoroscopy, a 3-1/2-inch 20-gauge Tuohy epidural needle was guided through the sacrococcygeal ligament, and into the epidural space. After negative aspiration , a 2 mL of omnipaque-180 contrast dye was injected with excellent epidurogram. Again after negative aspiration for CSF, blood, and with no paresthesias, Kenalog 80mg, 2ml of 1% preservative free Lidocaine with 6 ml of preservative free normal saline(total of 10ml)solution was injected with washout of epidurogram. Needle was withdrawn intact. Skin was cleansed, and bandage was applied. COMPLICATIONS: None DISPOSITION / PLANS: The patient was placed in a supine position and transferred to the recovery area in a stable condition for observation and was discharged from the recovery room after meeting discharge criteria. Home discharge instructions given to the patient by the staff. The patient was reexamined prior to discharge. The patient will schedule a follow up in the clinic in few weeks. Patient was given prescription refill for Neurontin 100 mg tablet 2 tablets by mouth every 8 hours dispense 180 with 3 refills
[2017-04-07] MEDS ORDERED: IV FLUID CONTINUATION 1,000 ML IV ONE (07:27)
[2017-04-07 07:41] VITALS: BP 148/92; PULSE 69
--- NOTE | 2017-04-07 15:37 | FL ---
EXAMINATION TYPE: FL guided pain mgmt statistic DATE OF EXAM: 04/07/2017 CLINICAL HISTORY: Neck and sacral pain. TECHNIQUE: Fluoroscopy. COMPARISON: None. FINDINGS: Fluoroscopic guidance was provided during pain relief procedure performed by Dr. Barger . A total of 5 seconds of fluoroscopic time was utilized during the procedure and two spot images ar e acquired. Images acquired shows needle localization from posterior inferior approach towards mid s acrum. IMPRESSION: As Above.
== END 2017-04-07 07:54 | disposition home or self-care (01) ==
LOC: ORPAIN 06:32
PROVIDERS: ATTEND Specialist
DX: M96.1 Postlaminectomy syndrome, not elsewhere classified (principal); M53.3 Sacrococcygeal disorders, not elsewhere classified; I25.10 Atherosclerotic heart disease of native coronary artery without angina pectoris; I10 Essential (primary) hypertension; E07.9 Disorder of thyroid, unspecified; Z88.8 Allergy status to other drugs, medicaments and biological substances
CPT/HCPCS: 62323; J2250; J3301; Q9965; J3010; 99152

== ENCOUNTER 2017-06-27 05:53 | Day surgery (SDC) | payer MEDICARE ==
[2017-06-22 11:49] VITALS: BMI 31.4
[2017-06-27 06:22] VITALS: RESP 16; TEMP 98.2
[2017-06-27] MEDS ORDERED: LACTATED RINGERS 1,000 ML IV ONE (06:32)
[2017-06-27] MEDS ORDERED: LIDOCAINE 1% 20 ML VIAL (10MG/ML) FOR IV START INTRADERMA ONE (06:32)
--- NOTE | 2017-06-27 07:17 | P.PCN ---
Date of Procedure: 06/27/17 Postoperative Diagnosis: PREOPERATIVE DIAGNOSIS: Lumbar post laminectomy syndrome. POSTOPERATIVE DIAGNOSIS: Lumbar post laminectomy syndrome. PROCEDURE: 1. Caudal epidural steroid injection under fluoroscopic guidance. 2. Caudal epidurogra ANESTHESIA: Local with 1% lidocaine. IV sedation. EBL: None. Surgeon: Gianluca Benavides MD PROCEDURE INDICATION: This is a very pleasant 62-year-old gentleman with a history of post laminotomy syndrome. He reports significant benefit from his previous caudal epidural steroid injection. He has burning in his feet and legs. He also is requesting an increase in his dosage of gabapentin from 200 mg by mouth 3 times a day 2 300 mg by mouth 3 times a day. PROCEDURE DESCRIPTION: The patient was seen and identified in the preoperative area. Risks, benefits, complications, and alternatives were discussed with the patient. The patient agreed to proceed with the procedure and signed the consent. IV was started, and vital signs were stable. Patient was taken to the OR and time out was completed. The patient was placed in the prone position on procedure table and a pillow was placed under the abdomen to reduce lumbar lordosis. The lumbosacral area was prepped and draped in the usual sterile fashion. Critical pause was taken. Vital signs were closely monitored during the procedure. Using lateral fluoroscopy the anterior-posterior plates of the sacrum were identified and the skin and deeper tissues corresponding into sacrococcygeal ligament were anesthetized using approximately 3 mL of 1% lidocaine. Then under fluoroscopy, a 3-1/2-inch 20-gauge spinal needle was guided through the sacrococcygeal ligament, and into the epidural space. After negative aspiration , a 2 mL of omnipaque-180 contrast dye was injected with excellent epidurogram. Again after negative aspiration, depomedrol 80mg,with 4 ml of preservative free normal saline solution was injected with washout of epidurogram. Needle was withdrawn intact. Skin was cleansed, and bandage was applied. COMPLICATIONS: None DISPOSITION / PLANS: The patient was placed in a supine position and transferred to the recovery area in a stable condition for observation and was discharged from the recovery room after meeting discharge criteria. Home discharge instructions given to the patient by the staff. The patient was reexamined prior to discharge. The patient will schedule a follow up in the clinic in 2-4 weeks. He will be evaluated for possible repeat of radiofrequency ablation of the lumbar medial branch nerves. He had this performed approximately 8 or 9 months ago. Surgeon: Gianluca Benavides
[2017-06-27] MEDS ORDERED: IV FLUID CONTINUATION 1,000 ML IV ONE (07:28)
[2017-06-27 07:58] VITALS: BP 117/76; PULSE 66
--- NOTE | 2017-06-27 08:20 | FL ---
Fluoroscopy HISTORY: Pain 2 seconds fluoroscopy time supplied to the referring clinician. 1 intraoperative C-arm images docume nt the procedure. See dictated report from anesthesia.
== END 2017-06-27 08:02 | disposition home or self-care (01) ==
LOC: ORPAIN 05:53
PROVIDERS: ATTEND Pain Medicine Pain Medicine
DX: M96.1 Postlaminectomy syndrome, not elsewhere classified (principal); Z79.899 Other long term (current) drug therapy; Z88.8 Allergy status to other drugs, medicaments and biological substances
CPT/HCPCS: 62323; J2250; J1030

== ENCOUNTER 2017-07-13 16:57 | Inpatient (IN) | payer MEDICARE ==
[2017-07-13] MEDS ORDERED: SODIUM CHLORIDE 0.9% 500 ML IV STA (17:13)
[2017-07-13 17:33] LABS: Glucose,Whole Blood 118 mg/dL (75-99)
--- NOTE | 2017-07-13 17:49 | ED ---
General Adult HPI - General Source: patient Mode of arrival: wheelchair Limitations: no limitations <Kirstin Schofield - Last Filed: 07/13/17 19:39> <Omar Shane - Last Filed: 07/13/17 19:53> - General Chief complaint: Dizziness Stated complaint: chest pain/dizzy/syncope Time Seen by Provider: 07/13/17 17:07 - History of Present Illness Initial comments: 62-year-old male patient with past medical history significant for coronary artery disease, hypertension, myocardial infarction, and kidney disease presents to the emergency department today for evaluation after experiencing 2 syncopal episodes. Patient states that both times he got up and walked into the kitchen and next he knew he woke up on the floor. Patient states that he did have chest pressure and some shortness of breath today that has now resolved. Patient states he is also been experiencing generalized abdominal cramping has had one episode of diarrhea and one episode of vomiting. Patient states he has been experiencing some leg pain. He has been feeling very dizzy today. Yesterday he did also have some sharp left-sided chest pain that did resolve on its own. He denies any fever or chills. Denies any difficulty with urination. Patient denies any recent rash, shortness breath, back pain, numbness , tingling, dizziness, weakness, hematuria, dysuria, urinary urgency, urinary frequency, headache, visual changes, or any other complaints. (Kirstin Schofield) - Related Data Home Medications Medication Instructions Recorded Confirmed cloNIDine HCL [Clonidine HCl] 0.1 mg PO TID 11/16/15 07/13/17 Levothyroxine Sodium [Synthroid] 75 mcg PO DAILY 05/04/16 07/13/17 Omeprazole 20 mg PO DAILY 05/04/16 07/13/17 Dicyclomine [Bentyl] 20 mg PO AC-TID PRN 05/31/16 07/13/17 Losartan [Cozaar] 50 mg PO DAILY 05/31/16 07/13/17 Aspirin [Adult Low Dose Aspirin EC] 81 mg PO DAILY 06/24/16 06/22/17 Diphenoxylate HCl/Atropine 1 tab PO Q8H PRN 07/19/16 07/13/17 [Lomotil 2.5-0.025 mg Tablet] Nitroglycerin Sl Tabs [Nitrostat] 0.4 mg SUBLINGUAL Q5M PRN 07/19/16 07/13/17 Cholecalciferol [Vitamin D3] 2,000 unit PO DAILY 09/23/16 07/13/17 Escitalopram [Lexapro] 30 mg PO DAILY 12/16/16 07/13/17 Ferrous Sulfate [Feosol] 325 mg PO DAILY 03/01/17 07/13/17 LORazepam [Ativan] 1 mg PO HS PRN 04/05/17 07/13/17 Gabapentin [Neurontin] 300 mg PO TID 07/13/17 07/13/17 Allergies Allergy/AdvReac Type Severity Reaction Status Date / Time Beta-Blockers Allergy Rash/Hives Verified 07/13/17 17:20 (Beta-Adrenergic Bloc paroxetine HCl [From Paxil] AdvReac Unknown Abdominal Verified 07/13/17 17:20 Pain Review of Systems ROS Other: All systems not noted in ROS Statement are negative. <Kirstin Schofield - Last Filed: 07/13/17 19:39> ROS Other: All systems not noted in ROS Statement are negative. <Omar Shane - Last Filed: 07/13/17 19:53> ROS Statement: Those systems with pertinent positive or pertinent negative responses have been documented in the HPI. Past Medical History Past Medical History: Coronary Artery Disease (CAD), Chest Pain / Angina, GERD/ Reflux, Hyperlipidemia, Hypertension, Myocardial Infarction (NM), Musculoskeletal Disorder, Osteoarthritis (OA), Renal Disease, Thyroid Disorder Additional Past Medical History / Comment(s): Chronic low back pain DIVERTICULITIS, IBS, renal insufficiency with dehydration. Hx bronchitis & pneumonia, migraines, SMALL HIATAL HERNIA. Last Myocardial Infarction Date:: 2013 History of Any Multi-Drug Resistant Organisms: None Reported Past Surgical History: Back Surgery, Cholecystectomy, Heart Catheterization With Stent, Hernia Repair, Orthopedic Surgery Additional Past Surgical History / Comment(s): COLONOSCOPY, EGD, ORIF LT ANKLE, L ANKLE SX, BACK SURGERIES fusion L3-L5, LT HAND SURGERY D/T FRACTURE, RT KNEE ARTHROSCOPIC X 2, RT ELBOW TENDON RELEASE SURG, LUMBAR SPINE CYST REMOVAL, HIATAL HERNIA REPAIR, right shoulder arthroscopy, back injections. Past Anesthesia/Blood Transfusion Reactions: No Reported Reaction Date of Last Stent Placement:: 2013 Past Psychological History: No Psychological Hx Reported Smoking Status: Former smoker Past Alcohol Use History: None Reported Past Drug Use History: Marijuana - Past Family History Mother Family Medical History: Thyroid Disorder Additional Family Medical History / Comment(s): Mother is living. Father Family Medical History: Diabetes Mellitus, Myocardial Infarction (NM) Additional Family Medical History / Comment(s): TRIPLE BYPASS, [place] in his 50's or 60's. from MVA when he was in his 80's Sister(s) Family Medical History: Cancer, Thyroid Disorder Additional Family Medical History / Comment(s): SKIN CA/ #2 sister had thyroid cancer <Kirstin Schofield - Last Filed: 07/13/17 19:39> General Exam Limitations: no limitations General appearance: alert, in no apparent distress, other (Physical well- developed, well-nourished adult male patient in no acute distress. Vital signs upon presentation are temperature 98.4F, pulse 79, respirations 18, blood pressure 100/63, pulse ox 97% on room air.) Eye exam: Present: normal appearance, PERRL, EOMI. Absent: scleral icterus, conjunctival injection, periorbital swelling ENT exam: Present: normal exam, normal oropharynx, mucous membranes moist Respiratory exam: Present: normal lung sounds bilaterally. Absent: respiratory distress, wheezes, rales, rhonchi, stridor Cardiovascular Exam: Present: regular rate, normal rhythm, normal heart sounds. Absent: systolic murmur, diastolic murmur, rubs, gallop, clicks GI/Abdominal exam: Present: soft, normal bowel sounds. Absent: distended, tenderness, guarding, rebound, rigid Neurological exam: Present: alert, oriented X3, CN II-XII intact Psychiatric exam: Present: normal affect, normal mood Skin exam: Present: warm, dry, intact, normal color. Absent: rash <Kirstin Schofield - Last Filed: 07/13/17 19:39> Course <Kirstin Schofield - Last Filed: 07/13/17 19:39> <Omar Shane - Last Filed: 07/13/17 19:53> Vital Signs 07/13/17 07/13/17 07/13/17 16:59 17:30 17:45 Temperature 98.4 F 98.2 F 98.2 F Pulse Rate 79 73 68 Respiratory 18 17 15 Rate Blood Pressure 100/63 99/58 000/59 O2 Sat by Pulse 97 97 98 Oximetry 07/13/17 07/13/17 18:00 19:14 Temperature 98.2 F Pulse Rate 68 72 Respiratory 18 18 Rate Blood Pressure 101/60 89/51 O2 Sat by Pulse 97 97 Oximetry - Reevaluation(s) Reevaluation #1: 07/13/17 19:37 Respect history supervision: I did personally do a [id number] evaluation the patient did discuss the findings with him and his . Patient 2 syncopal episodes today and episodes of chest pressure yesterday and today. He also demonstrates evidence of renal insufficiency/failure though his numbers are similar to when she's had in the past and is not been like this recently. The patient will be admitted case is discussed with Dr. Nava. Cardiology will be consulted. (Omar Shane) EKG Findings - EKG Comments: EKG Findings:: EKG obtained at 1725 shows normal sinus rhythm ventricular rate is 71, DC interval 208, QR zoroastrian 102, QT 420, QTC 456. No evidence of ST elevation or depression. This read is compared to EKG obtained at 02/15/2017, changes appear chronic. <Kirstin Schofield - Last Filed: 07/13/17 19:39> Medical Decision Making - Lab Data Result diagrams: 07/13/17 17:40 07/13/17 17:40 - Radiology Data Radiology results: report reviewed, image reviewed <Kirstin Schofield - Last Filed: 07/13/17 19:39> - Lab Data Result diagrams: 07/13/17 17:40 07/13/17 17:40 <Omar Shane - Last Filed: 07/13/17 19:53> - Medical Decision Making 61-year-old male patient presented to the emergency department today for evaluation after expressing 2 syncopal episodes at home. Patient is also complaining of some chest heaviness and shortness of breath with this. Physical examination was relatively unremarkable. Patient did exhibit some hypotension here in the emergency department. He was given 1 L bolus. Labs reviewed and showed a white blood cell count of 11.2. BUN and creatinine are elevated at 46 and 3.70 respectively. CK-MB is 6.2. Given patient's history of CAD and NM we will start patient on heparin for anticoagulation. Chest x- ray did show possible infiltrate versus atelectasis in the left lower lung. Patient is not coughing has had no fevers therefore clinically I believe this is more related to atelectasis and infiltrate. We'll consult cardiology for chest pain and syncope. He'll be admitted to Dr. Nava. (Kirstin Schofield) - Lab Data Lab Results 07/13/17 07/13/17 07/13/17 Range/Units 17:31 17:40 17:40 WBC (3.8-10.6) k/uL RBC (4.30-5.90) m/uL Hgb (13.0-17.5) gm/dL Hct (39.0-53.0) % MCV (80.0-100.0) fL MCH (25.0-35.0) pg MCHC (31.0-37.0) g/dL RDW (11.5-15.5) % Plt Count (150-450) k/uL Neutrophils % % Lymphocytes % % Monocytes % % Eosinophils % % Basophils % % Neutrophils # (1.3-7.7) k/uL Lymphocytes # (1.0-4.8) k/uL Monocytes # (0-1.0) k/uL Eosinophils # (0-0.7) k/uL Basophils # (0-0.2) k/uL PT (9.0-12.0) sec INR (<1.2) APTT (22.0-30.0) sec D-Dimer (<0.60) mg/L FEU Sodium 136 L (137-145) mmol/L Potassium 4.1 (3.5-5.1) mmol/L Chloride 100 (98-107) mmol/L Carbon Dioxide 18 L (22-30) mmol/L Anion Gap 18 mmol/L BUN 46 H (9-20) mg/dL Creatinine 3.70 H (0.66-1.25) mg/dL Est GFR (CKD-EPI)AfAm 19 (>60 ml/min/1.73 sqM) Est GFR (CKD-EPI)NonAf 16 (>60 ml/min/1.73 sqM) Glucose 104 H (74-99) mg/dL POC Glucose (mg/dL) 118 H (75-99) mg/dL POC Glu Computer Teacher ID Sydney Davis Calcium 9.4 (8.4-10.2) mg/dL Magnesium 2.0 (1.6-2.3) mg/dL Total Bilirubin 0.6 (0.2-1.3) mg/dL AST 23 (17-59) U/L ALT 32 (21-72) U/L Alkaline Phosphatase 85 (38-126) U/L Total Creatine Kinase 359 H (55-170) U/L CK-MB (CK-2) 6.2 H* (0.0-2.4) ng/mL CK-MB (CK-2) Rel Index 1.7 Troponin I 0.018 (0.000-0.034) ng/mL Total Protein 6.7 (6.3-8.2) g/dL Albumin 4.5 (3.5-5.0) g/dL Amylase 67 (30-110) U/L Lipase 139 (23-300) U/L 07/13/17 07/13/17 Range/Units 17:40 17:40 WBC 11.2 H (3.8-10.6) k/uL RBC 4.35 (4.30-5.90) m/uL Hgb 14.1 (13.0-17.5) gm/dL Hct 38.6 L (39.0-53.0) % MCV 88.8 (80.0-100.0) fL MCH 32.3 (25.0-35.0) pg MCHC 36.4 (31.0-37.0) g/dL RDW 13.9 (11.5-15.5) % Plt Count 273 (150-450) k/uL Neutrophils % 69 % Lymphocytes % 21 % Monocytes % 7 % Eosinophils % 1 % Basophils % 0 % Neutrophils # 7.7 (1.3-7.7) k/uL Lymphocytes # 2.4 (1.0-4.8) k/uL Monocytes # 0.8 (0-1.0) k/uL Eosinophils # 0.1 (0-0.7) k/uL Basophils # 0.0 (0-0.2) k/uL PT 9.9 (9.0-12.0) sec INR 1.0 (<1.2) APTT 22.5 (22.0-30.0) sec D-Dimer 0.19 (<0.60) mg/L FEU Sodium (137-145) mmol/L Potassium (3.5-5.1) mmol/L Chloride (98-107) mmol/L Carbon Dioxide (22-30) mmol/L Anion Gap mmol/L BUN (9-20) mg/dL Creatinine (0.66-1.25) mg/dL Est GFR (CKD-EPI)AfAm (>60 ml/min/1.73 sqM) Est GFR (CKD-EPI)NonAf (>60 ml/min/1.73 sqM) Glucose (74-99) mg/dL POC Glucose (mg/dL) (75-99) mg/dL POC Glu Computer Teacher ID Calcium (8.4-10.2) mg/dL Magnesium (1.6-2.3) mg/dL Total Bilirubin (0.2-1.3) mg/dL AST (17-59) U/L ALT (21-72) U/L Alkaline Phosphatase (38-126) U/L Total Creatine Kinase (55-170) U/L CK-MB (CK-2) (0.0-2.4) ng/mL CK-MB (CK-2) Rel Index Troponin I (0.000-0.034) ng/mL Total Protein (6.3-8.2) g/dL Albumin (3.5-5.0) g/dL Amylase (30-110) U/L Lipase (23-300) U/L - Radiology Data Two-view x-ray of the chest was obtained. Report was reviewed in its entirety. Impression by Dr. Samuel Tong shows no definite acute process, although left costophrenic angle finding is as discussed, possible infiltrate versus atelectasis. Six-week follow-up chest is advised. (Kirstin Schofield) Disposition Decision to Admit Reason: Admit from EC Decision Date: 07/13/17 Decision Time: 19:43 <Kirstin Schofield - Last Filed: 07/13/17 19:39> <Omar Shane - Last Filed: 07/13/17 19:53> Clinical Impression: Syncope, Chest pain, Hypotension, Renal insufficiency syndrome Disposition: ADMITTED IP TO THIS [facility] Condition: Serious Referrals: Miki Nava DO [Primary Care Provider] - 1-2 days
[2017-07-13 18:05] LABS: Basophils % (A) 0 %; Eosinophils # (A) 0.1 k/uL (0-0.7); Eosinophils % (A) 1 %; HCT 38.6 % (39.0-53.0); HGB 14.1 gm/dL (13.0-17.5); Lymphocytes # (A) 2.4 k/uL (1.0-4.8); Lymphocytes % (A) 21 %; MCH 32.3 pg (25.0-35.0); MCHC 36.4 g/dL (31.0-37.0); MCV 88.8 fL (80.0-100.0); Mean Platelet Volume 7.1; Monocytes # (A) 0.8 k/uL (0-1.0); Monocytes % (A) 7 %; Neutrophils # (A) 7.7 k/uL (1.3-7.7); Neutrophils % (A) 69 %; Platelet Count 273 k/uL (150-450); RBC 4.35 m/uL (4.30-5.90); RDW 13.9 % (11.5-15.5); WBC 11.2 k/uL (3.8-10.6)
[2017-07-13 18:21] LABS: D-Dimer 0.19 mg/L FEU (<0.60); Partial Thromboplastin Time 22.5 sec (22.0-30.0); Prothrombin Time 9.9 sec (9.0-12.0)
[2017-07-13 18:24] LABS: Albumin 4.5 g/dL (3.5-5.0); Calcium 9.4 mg/dL (8.4-10.2); Potassium 4.1 mmol/L (3.5-5.1); Total Bilirubin 0.6 mg/dL (0.2-1.3); Total Protein 6.7 g/dL (6.3-8.2)
[2017-07-13 18:34] LABS: Troponin I 0.018 ng/mL (0.000-0.034)
--- NOTE | 2017-07-13 18:38 | XR ---
EXAMINATION: XR chest 2V DATE AND TIME: 07/13/2017 6:02 PM ORDERING PROVIDER: Kirstin Schofield CLINICAL INDICATION: Chest Pain TECHNIQUE: PA and lateral COMPARISON: 11/03/2016 DESCRIPTION: The lungs are nearly entirely clear and well expanded. However, at the left costophrenic angle there is a 3 cm horizontally oriented ill-defined opacity which appears to project posteriorly within the l eft lower lobe on the lateral radiograph. This radiographically is most likely to represent subsegmen nestor atelectasis, although clinical exclusion of bronchopneumonia will be useful. The pleural spaces are negative. The cardiac silhouette is not top normal in size. The mediastinal and pleural silhouettes are unremarkable. The skeletal structures are intact without focal findings. The soft tissues are unremarkable. IMPRESSION: NO DEFINITE ACUTE PROCESS, ALTHOUGH LEFT COSTOPHRENIC ANGLE FINDING DISCUSSED. 6 week follow-up PA and lateral chest radiographs at full inspiration advised to prove resolution.
[2017-07-13 18:47] LABS: Creatine Kinase MB 6.2 ng/mL (0.0-2.4)
[2017-07-13] MEDS ORDERED: SODIUM CHLORIDE 0.9% 500 ML IV ONE (19:21)
[2017-07-13] MEDS ORDERED: NITROGLYCERIN SL TABS 0.4 MG TAB SUBLINGUAL PRN (19:33)
[2017-07-13] MEDS ORDERED: HEPARIN SODIUM,PORCINE 5,000 UNIT/ML 1 ML VIAL IV ONE (19:33)
[2017-07-13] MEDS ORDERED: DICYCLOMINE 20 MG TAB PO PRN (19:43)
[2017-07-13] MEDS ORDERED: HEPARIN SODIUM,PORCINE/D5W PMX 25,000 UNIT in DEXTROSE/WATER 1 500ML.BAG IV SCH (19:45)
[2017-07-13] MEDS: cloNIDine HCL 0.1 MG TAB PO SCH (22:01)
[2017-07-13] MEDS: LORazepam 1 MG TAB PO PRN (22:03)
[2017-07-13] MEDS: GABAPENTIN 300 MG CAP PO SCH (22:03)
[2017-07-14 01:05] LABS: Creatine Kinase 329 U/L (55-170)
[2017-07-14 01:18] LABS: Troponin I <0.012 ng/mL (0.000-0.034)
[2017-07-14 01:25] LABS: Creatine Kinase MB 5.8 ng/mL (0.0-2.4)
[2017-07-14 06:08] LABS: Cholesterol 175 mg/dL (<200); HDL Cholesterol 46 mg/dL (40-60); LDL Cholesterol,Calculated 98 mg/dL (0-99); Triglycerides 154 mg/dL (<150)
[2017-07-14 06:20] LABS: Creatine Kinase 282 U/L (55-170)
[2017-07-14] MEDS: LEVOTHYROXINE 75 MCG TAB PO SCH (06:26)
[2017-07-14] MEDS: PANTOPRAZOLE 40 MG TABLET PO SCH (06:26)
[2017-07-14 06:27] LABS: Troponin I <0.012 ng/mL (0.000-0.034)
[2017-07-14 06:33] LABS: Creatine Kinase MB 5.1 ng/mL (0.0-2.4)
[2017-07-14] MEDS ORDERED: KETOROLAC 30 MG/ML 1 ML VIAL IVP STA (08:59)
[2017-07-14] MEDS ORDERED: ASPIRIN 325 MG TAB PO SCH (09:00)
--- NOTE | 2017-07-14 11:23 | P.CRDCN ---
History of Present Illness Consult date: 07/14/17 Requesting physician: Miki Nava Consult reason: sycope, chest pain Chief complaint: Chest pain, syncope History of present illness: This is a 62-year-old gentleman who follows with Dr. Garland in the office. He has a known history of coronary artery disease with prior stent placement in 2007 and 2013 according to the patient, history also of hypertension, hyperlipidemia, patient has been intolerant of statins, was initiated on Crestor after that and developed significant lower extremity muscle weakness. After the Crestor was discontinued symptoms seemed to resolve. Patient also has chronic pain issues for which he follows with the pain specialist, he was recently started on Neurontin as an outpatient. Patient presents to the hospital on this occasion with symptoms of chest tightness as well as 2 syncopal episodes. He states that the day before yesterday patient was in the kitchen and experienced a brief episode of chest tightness which somewhat reminded him of what he had prior to his stent placement. Yesterday according to the patient, he was walking in his house became dizzy and passed out on 2 separate occasions a waking up on the floor. He states that he did not injure himself. He was mildly confused upon wakening but oriented himself quickly after he woke up. Patient also has been having diarrhea quite regularly at home with symptoms of abdominal pain. This appears to be a chronic issue for the patient as he has had multiple hospital admissions with abdominal pain. He does have a history of chronic pain syndrome and opiate dependency. also has been noted to have hospital admissions related to acute kidney injury secondary to dehydration duration related to vomiting and diarrhea. EKG on admission showed normal sinus rhythm with inferior Q waves. Repeat EKG this morning shows normal sinus rhythm with first-degree AV block and inferior Q waves. Asked x-ray does not reveal any acute process. Blood pressure 114/70 with a heart rate in the 60s to 70s, temperature 97.7, he is 98% on 2 L oxygen. White blood cell count 11.2, hemoglobin 14.1, platelet count 273. D-dimer 0.19. Sodium 136, potassium 4.1, BUN 46, creatinine 3.7. Troponin 0.018, 0.012, 0.012. It appears that the most recent stress test was performed in the office on February 022015. At the time of my examination this morning, patient denies any dizziness or lightheadedness, no chest discomfort. Past Medical History Past Medical History: Coronary Artery Disease (CAD), Chest Pain / Angina, GERD/ Reflux, Hyperlipidemia, Hypertension, Myocardial Infarction ([place]), Musculoskeletal Disorder, Osteoarthritis (OA), Renal Disease, Thyroid Disorder Additional Past Medical History / Comment(s): Chronic low back pain DIVERTICULITIS, IBS, renal insufficiency with dehydration. Hx bronchitis & pneumonia, migraines, SMALL HIATAL HERNIA.lumbar ddd(pain clinic procedures) Last Myocardial Infarction Date:: 2013 History of Any Multi-Drug Resistant Organisms: None Reported Past Surgical History: Back Surgery, Cholecystectomy, Heart Catheterization With Stent, Hernia Repair, Orthopedic Surgery Additional Past Surgical History / Comment(s): COLONOSCOPY, EGD, ORIF LT ANKLE, L ANKLE SX, BACK SURGERIES fusion L3-L5, LT HAND SURGERY D/T FRACTURE, RT KNEE ARTHROSCOPIC X 2, RT ELBOW TENDON RELEASE SURG, LUMBAR SPINE CYST REMOVAL, HIATAL HERNIA REPAIR, right shoulder arthroscopy, back injections. Past Anesthesia/Blood Transfusion Reactions: No Reported Reaction Date of Last Stent Placement:: 2013 Smoking Status: Former smoker - Past Family History Mother Family Medical History: Thyroid Disorder Additional Family Medical History / Comment(s): Mother is living. Father Family Medical History: Diabetes Mellitus, Myocardial Infarction ([place]) Additional Family Medical History / Comment(s): [place], [place] in his 50's or 60's. from MVA when he was in his 80's Sister(s) Family Medical History: Cancer, Thyroid Disorder Additional Family Medical History / Comment(s): SKIN CA/ #2 sister had thyroid cancer Medications and Allergies Home Medications Medication Instructions Recorded Confirmed Type cloNIDine HCL [Clonidine HCl] 0.1 mg PO TID 11/16/15 07/13/17 History Levothyroxine Sodium [Synthroid] 75 mcg PO DAILY 05/04/16 07/13/17 History Omeprazole 20 mg PO DAILY 05/04/16 07/13/17 History Dicyclomine [Bentyl] 20 mg PO AC-TID PRN 05/31/16 07/13/17 History Losartan [Cozaar] 50 mg PO DAILY 05/31/16 07/13/17 History Aspirin [Adult Low Dose Aspirin EC] 81 mg PO DAILY 06/24/16 06/22/17 History Diphenoxylate HCl/Atropine 1 tab PO Q8H PRN 07/19/16 07/13/17 History [Lomotil 2.5-0.025 mg Tablet] Nitroglycerin Sl Tabs [Nitrostat] 0.4 mg SUBLINGUAL Q5M PRN 07/19/16 07/13/17 History Cholecalciferol [Vitamin D3] 2,000 unit PO DAILY 09/23/16 07/13/17 History Escitalopram [Lexapro] 30 mg PO DAILY 12/16/16 07/13/17 History Ferrous Sulfate [Feosol] 325 mg PO DAILY 03/01/17 07/13/17 History LORazepam [Ativan] 1 mg PO HS PRN 04/05/17 07/13/17 History Gabapentin [Neurontin] 300 mg PO TID 07/13/17 07/13/17 History Allergies Allergy/AdvReac Type Severity Reaction Status Date / Time Beta-Blockers Allergy Rash/Hives Verified 07/13/17 17:20 (Beta-Adrenergic Bloc paroxetine HCl [From Paxil] AdvReac Unknown Abdominal Verified 07/13/17 17:20 Pain Physical Exam Vitals: Vital Signs Temp Pulse Pulse Pulse Resp BP BP 07/14/17 08:19 97.7 F 68 59 L 16 114/71 07/14/17 03:06 68 65 16 110/66 07/14/17 00:00 68 74 16 102/50 07/13/17 20:49 98.4 F 57 L 16 126/72 07/13/17 19:14 72 18 89/51 07/13/17 18:00 98.2 F 68 18 101/60 07/13/17 17:45 98.2 F 68 15 000/59 07/13/17 17:30 98.2 F 73 17 99/58 07/13/17 16:59 98.4 F 79 18 100/63 Pulse Ox 07/14/17 08:19 98 07/14/17 03:06 99 07/14/17 00:00 99 07/13/17 20:49 97 07/13/17 19:14 97 07/13/17 18:00 97 07/13/17 17:45 98 07/13/17 17:30 97 07/13/17 16:59 97 Intake and Output 07/13/17 07/14/17 07/14/17 22:59 06:59 14:59 Intake Total 138.333 Output Total 700 Balance -561.667 Intake: Intake, IV Titration 138.333 Amount Heparin Sodium,Porcine/ 138.333 D5w Pmx 25,000 unit In Dextrose/Water 1 500ml. bag @ 10.022 UNITS/KG/HR 20 mls/hr IV .Q24H [facility] Rx #:[id number] Oral 0 Output: Urine 700 Other: Voiding Method Toilet Toilet Urinal Urinal # Voids 2 Weight 99.79 kg 100.3 kg PHYSICAL EXAMINATION: GENERAL: 22-year-old gentleman in no apparent distress at the time of my examination. HEENT: Head is atraumatic, normocephalic. Pupils equal, round. Sclera anicteric. Conjunctiva are clear. Mucous membranes of the mouth are moist. Neck is supple. There is no elevated jugular venous pressure.] bruit is heard. HEART EXAMINATION: Heart S1, S2 normal. No murmur or gallop heard. CHEST EXAMINATION: Lungs are clear to auscultation and precussion. No chest wall tenderness is noted on palpation or with deep breathing. ABDOMEN: Soft, nontender. Bowel sounds are heard. No organomegaly noted. EXTREMITIES: 2+ peripheral pulses with no evidence of peripheral edema and no calf tenderness noted. NEUROLOGIC patient is awake, alert and oriented -3. . Results 07/13/17 17:40 07/13/17 17:40 Cardiac Enzymes 07/13/17 07/13/17 07/14/17 Range/Units 17:40 17:40 00:20 AST 23 (17-59) U/L CK-MB (CK-2) 6.2 H* 5.8 H* (0.0-2.4) ng/mL Troponin I 0.018 <0.012 (0.000-0.034) ng/mL 07/14/17 Range/Units 05:34 AST (17-59) U/L CK-MB (CK-2) 5.1 H* (0.0-2.4) ng/mL Troponin I <0.012 (0.000-0.034) ng/mL Coagulation 07/13/17 07/14/17 Range/Units 17:40 02:09 PT 9.9 (9.0-12.0) sec APTT 22.5 34.8 H (22.0-30.0) sec Lipids 07/14/17 Range/Units 05:34 Triglycerides 154 H (<150) mg/dL Cholesterol 175 (<200) mg/dL HDL Cholesterol 46 (40-60) mg/dL CBC 07/13/17 Range/Units 17:40 WBC 11.2 H (3.8-10.6) k/uL RBC 4.35 (4.30-5.90) m/uL Hgb 14.1 (13.0-17.5) gm/dL Hct 38.6 L (39.0-53.0) % Plt Count 273 (150-450) k/uL Comprehensive Metabolic Panel 07/13/17 Range/Units 17:40 Sodium 136 L (137-145) mmol/L Potassium 4.1 (3.5-5.1) mmol/L Chloride 100 (98-107) mmol/L Carbon Dioxide 18 L (22-30) mmol/L BUN 46 H (9-20) mg/dL Creatinine 3.70 H (0.66-1.25) mg/dL Glucose 104 H (74-99) mg/dL Calcium 9.4 (8.4-10.2) mg/dL AST 23 (17-59) U/L ALT 32 (21-72) U/L Alkaline Phosphatase 85 (38-126) U/L Total Protein 6.7 (6.3-8.2) g/dL Albumin 4.5 (3.5-5.0) g/dL Current Medications Generic Name Dose Route Start Last Admin Trade Name Freq PRN Reason Stop Dose Admin Aspirin 325 mg 07/14/17 09:00 Aspirin PO DAILY [facility] Cholecalciferol 2,000 unit 07/14/17 12:00 Vitamin D3 PO DAILY@1200 [facility] Clonidine 0.1 mg 07/13/17 22:00 07/13/17 22:01 Catapres PO Not Given TID [facility] Dicyclomine HCl 20 mg 07/13/17 19:43 Bentyl PO AC-TID PRN Abdominal Cramping Escitalopram Oxalate 30 mg 07/14/17 09:00 Lexapro PO DAILY [facility] Ferrous Sulfate 325 mg 07/14/17 09:00 Feosol PO DAILY [facility] Gabapentin 300 mg 07/13/17 22:00 07/13/17 22:03 Neurontin PO 300 mg TID [facility] Administration Heparin Sodium/Dextrose 25,000 500 mls @ 20 mls/hr 07/13/17 19:45 07/14/17 03 :03 unit/ IV Solution IV 13 units/kg/hr .Q24H [facility] 25.94 mls/hr Protocol Titration 10.022 UNITS/KG/HR Sodium Chloride 1,000 mls @ 150 mls/hr 07/14/17 09:00 Saline 0.9% IV .Q6H40M [facility] Levothyroxine Sodium 75 mcg 07/14/17 06:30 07/14/17 06:26 Synthroid PO 75 mcg DAILY@0630 [facility] Administration Lorazepam 1 mg 07/13/17 19:43 07/13/17 22:03 Ativan PO 1 mg HS PRN Administration FOR ANXIETY/SLEEP Nitroglycerin 0.4 mg 07/13/17 19:33 Nitrostat SUBLINGUAL Q5M PRN Chest Pain Pantoprazole Sodium 40 mg 07/14/17 07:30 07/14/17 06:26 Protonix PO 40 mg AC-BRKFST [facility] Administration Intake and Output 07/13/17 07/14/17 07/14/17 22:59 06:59 14:59 Intake Total 138.333 Output Total 700 Balance -561.667 Intake: Intake, IV Titration 138.333 Amount Heparin Sodium,Porcine/ 138.333 D5w Pmx 25,000 unit In Dextrose/Water 1 500ml. bag @ 10.022 UNITS/KG/HR 20 mls/hr IV .Q24H [facility] Rx #:[id number] Oral 0 Output: Urine 700 Other: Voiding Method Toilet Toilet Urinal Urinal # Voids 2 Weight 99.79 kg 100.3 kg 07/13/17 17:40 07/13/17 17:40 EKG Interpretations (text) EKG shows normal sinus rhythm with inferior Q waves. Assessment and Plan Plan: Assessment and plan #1 chest discomfort in the form of chest tightness, somewhat atypical for acute coronary syndrome. Troponin 0.018, 0.012, 0.012. D-dimer negative. EKG shows normal sinus rhythm with inferior Q waves. #2 acute renal failure likely secondary to dehydration from vomiting and diarrhea. Patient has had multiple hospitalizations with similar situation, renal failure improves after hydration. #3 known history of coronary artery disease with prior stent placement #4 hypertension #5 syncope, rule out cardiac causes #6 hyperlipidemia #7 chronic pain syndrome with history of opiate abuse Plan We will obtain an echocardiogram with Doppler study. The most recent echo was performed in October 2016 which revealed an ejection fraction of 55-60%. Continue hydration at 150 mL per hour and recheck lytes BUN and creatinine in the morning. We will discontinue the IV heparin. Check orthostatic blood pressure and heart rate every shift. Continue to monitor for any tachycardia or bradycardia arrhythmias. Patient may also need a stress test to rule out progression of coronary artery disease. Further recommendations to follow. DNP note has been reviewed, I agree with a documented findings and plan of care. Patient was seen and examined.
[2017-07-14] MEDS: ESCITALOPRAM 10 MG TAB PO SCH (12:36)
[2017-07-14] MEDS: cloNIDine HCL 0.1 MG TAB PO SCH ×3 (12:36→20:32)
[2017-07-14] MEDS: GABAPENTIN 300 MG CAP PO SCH ×3 (12:36→20:32)
[2017-07-14] MEDS: CHOLECALCIFEROL 1,000 UNIT TAB PO SCH (12:36)
[2017-07-14] MEDS: FERROUS SULFATE 325 MG TAB PO SCH (12:36)
[2017-07-14] MEDS: SODIUM CHLORIDE 0.9% 1,000 ML IV SCH ×3 (12:38→20:32)
[2017-07-14 13:00] LABS: Calcium 9.1 mg/dL (8.4-10.2); Potassium 4.6 mmol/L (3.5-5.1); Total Bilirubin 0.9 mg/dL (0.2-1.3); Total Protein 6.1 g/dL (6.3-8.2)
--- NOTE | 2017-07-14 13:13 | P.HPIM ---
History of Present Illness H&P Date: 07/14/17 Chief Complaint: Chest pain/syncope 62-year-old male who presented to the emergency room with a chief complaint of chest pain. The patient reports he was at home in his kitchen doing dishes when he began to have chest pain that he describes as a heavy pressure. He also states he had associated shortness of breath. He states that he went to sit down and it subsided for a little while but then he decided to come to the emergency room for further evaluation. The patient also reports 2 days ago he was outside mowing the grass and he began to feel very lightheaded and dizzy. The patient reports 2 syncopal episodes at this time. The patient also reports he was started on gabapentin recently. He states his dose was started at 100 mg and he is up to 300 mg 3 times a day. He reports abdominal pain with diarrhea shortly after taking his Neurontin. The patient has a history of coronary artery disease, gastroesophageal reflux disease, hypertension, hyperlipidemia, and history of opioid abuse. Patient has a history of multiple heart attacks and the patient states he has had "over 10 heart attacks". He states he had a stent placement in 2007 and 2013. Most recent echocardiogram is from October 2016 which reveals an ejection fraction of 55-60%. The patient has had multiple hospitalizations secondary to nausea, vomiting, and abdominal pain. During his hospitalizations, the patient has found to be in acute renal failure. He is hydrated with IV fluids and his kidney function normalizes and his symptoms subside. The patient also has a history of irritable bowel syndrome and persistent GI symptoms of nausea, vomiting, and diarrhea lasting for the past 5 years. He underwent GI workup in 2016 including EGD in May 2016 which showed mild antral gastritis, small hiatal hernia, and no evidence of peptic ulcer disease. The patient's GI symptoms seem to coincide with his daily cannabis use. The patient has been encouraged multiple times to discontinue marijuana use. Chest x-ray: Negative for an acute process. However at the left costophrenic angle is a 3 cm horizontally oriented ill-defined opacity which appears to project posteriorly within the left lobe on the lateral radiograph. Most likely representing atelectasis. 6 week follow-up x-ray recommended. Laboratory data: WBC 11.2. Hemoglobin 14.1. Platelet count 273. Sodium 136. Potassium 4.1. BUN 46. Creatinine 3.70. Glucose 104. Magnesium 2.0. Troponin: 0.018, less than 0.012, less than 0.012 CK-MB: 6.2, 5.8, 5.1 Total creatinine kinase: 359, 329, 282 D-dimer: 0.19 The patient was admitted to the hospital under the care of Dr. Nava. Consultations were placed to cardiology. Review of Systems Constitutional: Denies chills, Denies fatigue, Denies fever, Denies lethargy, Denies sweats, Denies weakness Ears, nose, mouth and throat: Denies dysphagia, Denies headache, Denies sinus pain, Denies sinus pressure Cardiovascular: Reports chest pain, Reports lightheadedness, Reports shortness of breath, Reports syncope, Denies irregular heart beat, Denies leg edema, Denies palpitations Respiratory: Denies congestion, Denies cough, Denies cough with sputum, Denies excessive sputum, Denies home oxygen, Denies wheezing Gastrointestinal: Reports abdominal pain, Reports diarrhea, Denies heartburn, Denies hematemesis, Denies hematochezia Musculoskeletal: Denies arm numbness/tingling, Denies fractures, Denies leg numbness/tingling Integumentary: Denies pruritus, Denies rash, Denies sores, Denies wounds Neurological: Reports syncope, Denies double vision, Denies headaches, Denies hearing difficulties, Denies lack of coordination, Denies loss of vision, Denies memory loss, Denies numbness, Denies paralysis, Denies seizures Psychiatric: Denies anxiety, Denies confusion, Denies hallucinations, Denies insomnia, Denies sleep disturbances Past Medical History Past Medical History: Coronary Artery Disease (CAD), Chest Pain / Angina, GERD/ Reflux, Hyperlipidemia, Hypertension, Myocardial Infarction ([place]), Musculoskeletal Disorder, Osteoarthritis (OA), Renal Disease, Thyroid Disorder Additional Past Medical History / Comment(s): Chronic low back pain DIVERTICULITIS, IBS, renal insufficiency with dehydration. Hx bronchitis & pneumonia, migraines, SMALL HIATAL HERNIA.lumbar ddd(pain clinic procedures) Last Myocardial Infarction Date:: 2013 History of Any Multi-Drug Resistant Organisms: None Reported Past Surgical History: Back Surgery, Cholecystectomy, Heart Catheterization With Stent, Hernia Repair, Orthopedic Surgery Additional Past Surgical History / Comment(s): COLONOSCOPY, EGD, ORIF LT ANKLE, L ANKLE SX, BACK SURGERIES fusion L3-L5, LT HAND SURGERY D/T FRACTURE, RT KNEE ARTHROSCOPIC X 2, RT ELBOW TENDON RELEASE SURG, LUMBAR SPINE CYST REMOVAL, HIATAL HERNIA REPAIR, right shoulder arthroscopy, back injections. Past Anesthesia/Blood Transfusion Reactions: No Reported Reaction Date of Last Stent Placement:: 2013 Smoking Status: Former smoker - Past Family History Mother Family Medical History: Thyroid Disorder Additional Family Medical History / Comment(s): Mother is living. Father Family Medical History: Diabetes Mellitus, Myocardial Infarction ([place]) Additional Family Medical History / Comment(s): [place], [place] in his 50's or 60's. from MVA when he was in his 80's Sister(s) Family Medical History: Cancer, Thyroid Disorder Additional Family Medical History / Comment(s): SKIN CA/ #2 sister had thyroid cancer Medications and Allergies Home Medications Medication Instructions Recorded Confirmed Type cloNIDine HCL [Clonidine HCl] 0.1 mg PO TID 11/16/15 07/13/17 History Levothyroxine Sodium [Synthroid] 75 mcg PO DAILY 05/04/16 07/13/17 History Omeprazole 20 mg PO DAILY 05/04/16 07/13/17 History Dicyclomine [Bentyl] 20 mg PO AC-TID PRN 05/31/16 07/13/17 History Losartan [Cozaar] 50 mg PO DAILY 05/31/16 07/13/17 History Aspirin [Adult Low Dose Aspirin EC] 81 mg PO DAILY 06/24/16 06/22/17 History Diphenoxylate HCl/Atropine 1 tab PO Q8H PRN 07/19/16 07/13/17 History [Lomotil 2.5-0.025 mg Tablet] Nitroglycerin Sl Tabs [Nitrostat] 0.4 mg SUBLINGUAL Q5M PRN 07/19/16 07/13/17 History Cholecalciferol [Vitamin D3] 2,000 unit PO DAILY 09/23/16 07/13/17 History Escitalopram [Lexapro] 30 mg PO DAILY 12/16/16 07/13/17 History Ferrous Sulfate [Feosol] 325 mg PO DAILY 03/01/17 07/13/17 History LORazepam [Ativan] 1 mg PO HS PRN 04/05/17 07/13/17 History Gabapentin [Neurontin] 300 mg PO TID 07/13/17 07/13/17 History Allergies Allergy/AdvReac Type Severity Reaction Status Date / Time Beta-Blockers Allergy Rash/Hives Verified 07/13/17 17:20 (Beta-Adrenergic Bloc paroxetine HCl [From Paxil] AdvReac Unknown Abdominal Verified 07/13/17 17:20 Pain Physical Exam Vitals: Vital Signs Temp Pulse Pulse Pulse Resp BP BP 07/14/17 12:15 110/83 07/14/17 12:00 97.6 F 68 69 16 07/14/17 08:19 97.7 F 68 59 L 16 07/14/17 03:06 68 65 16 07/14/17 00:00 68 74 16 07/13/17 20:49 98.4 F 57 L 16 126/72 07/13/17 19:14 72 18 89/51 07/13/17 18:00 98.2 F 68 18 101/60 07/13/17 17:45 98.2 F 68 15 000/59 07/13/17 17:30 98.2 F 73 17 99/58 07/13/17 16:59 98.4 F 79 18 100/63 BP BP BP Pulse Ox 07/14/17 12:15 123/69 111/73 07/14/17 12:00 118/66 99 07/14/17 08:19 114/71 98 07/14/17 03:06 110/66 99 07/14/17 00:00 102/50 99 07/13/17 20:49 97 07/13/17 19:14 97 07/13/17 18:00 97 07/13/17 17:45 98 07/13/17 17:30 97 07/13/17 16:59 97 Intake and Output 07/13/17 07/14/17 07/14/17 22:59 06:59 14:59 Intake Total 138.333 Output Total 700 Balance -561.667 Intake: Intake, IV Titration 138.333 Amount Heparin Sodium,Porcine/ 138.333 D5w Pmx 25,000 unit In Dextrose/Water 1 500ml. bag @ 10.022 UNITS/KG/HR 20 mls/hr IV .Q24H [facility] Rx #:[id number] Oral 0 Output: Urine 700 Other: Voiding Method Toilet Toilet Urinal Urinal # Voids 2 Weight 99.79 kg 100.3 kg 62-year-old male - Constitutional General appearance: cooperative, no acute distress - EENT Eyes: EOMI, PERRLA ENT: hearing grossly normal, no pharyngeal erythema, no thrush - Neck Neck: normal ROM, no rigidity, no stridor - Respiratory Respiratory: bilateral: CTA, negative: rales, rhonchi, wheezing - Cardiovascular Rhythm: regular Heart sounds: normal: S1, S2 Abnormal Heart Sounds: no systolic murmur, no diastolic murmur - Gastrointestinal General gastrointestinal: no distended, no hyperactive bowel sounds, normal bowel sounds, no rigid, soft - Integumentary Integumentary: no cellulitis, no cyanotic, no jaundiced, normal - Neurologic Neurologic: CNII-XII intact - Musculoskeletal Musculoskeletal: strength equal bilaterally - Psychiatric Psychiatric: A&O x's 3, appropriate affect, intact judgment & insight Results CBC & Chem 7: 07/13/17 17:40 07/13/17 17:40 Labs: Abnormal Lab Results - Last 24 Hours (Table) 07/13/17 07/13/17 07/13/17 Range/Units 17:31 17:40 17:40 WBC (3.8-10.6) k/uL Hct (39.0-53.0) % APTT (22.0-30.0) sec Sodium 136 L (137-145) mmol/L Carbon Dioxide 18 L (22-30) mmol/L BUN 46 H (9-20) mg/dL Creatinine 3.70 H (0.66-1.25) mg/dL Glucose 104 H (74-99) mg/dL POC Glucose (mg/dL) 118 H (75-99) mg/dL Total Creatine Kinase 359 H (55-170) U/L CK-MB (CK-2) 6.2 H* (0.0-2.4) ng/mL Triglycerides (<150) mg/dL 07/13/17 07/14/17 07/14/17 Range/Units 17:40 00:20 02:09 WBC 11.2 H (3.8-10.6) k/uL Hct 38.6 L (39.0-53.0) % APTT 34.8 H (22.0-30.0) sec Sodium (137-145) mmol/L Carbon Dioxide (22-30) mmol/L BUN (9-20) mg/dL Creatinine (0.66-1.25) mg/dL Glucose (74-99) mg/dL POC Glucose (mg/dL) (75-99) mg/dL Total Creatine Kinase 329 H (55-170) U/L CK-MB (CK-2) 5.8 H* (0.0-2.4) ng/mL Triglycerides (<150) mg/dL 07/14/17 07/14/17 07/14/17 Range/Units 05:34 05:34 10:42 WBC (3.8-10.6) k/uL Hct (39.0-53.0) % APTT 40.3 H (22.0-30.0) sec Sodium (137-145) mmol/L Carbon Dioxide (22-30) mmol/L BUN (9-20) mg/dL Creatinine (0.66-1.25) mg/dL Glucose (74-99) mg/dL POC Glucose (mg/dL) (75-99) mg/dL Total Creatine Kinase 282 H (55-170) U/L CK-MB (CK-2) 5.1 H* (0.0-2.4) ng/mL Triglycerides 154 H (<150) mg/dL Thrombosis Risk Factor Assmnt - Choose All That Apply Each Factor Represents 1 point: Obesity (BMI >25) Each Risk Factor Represents 2 Points: Age 61-74 years Thrombosis Risk Factor Assessment Total Risk Factor Score: 3 Thrombosis Risk Factor Assessment Level: Moderate Risk Assessment and Plan Plan: ASSESSMENT: Chest pain with shortness of breath, troponin 0.018, 0.012, 0.012, rule out acute coronary syndrome Syncope 2, rule out cardiac etiology Acute renal failure likely secondary to hypovolemia secondary to diarrhea and decreased oral intake, creatinine 3.70 on admission, baseline 1.0 Multiple hospitalizations secondary to acute renal failure secondary to hypovolemia due to diarrhea and decreased oral intake, which improved with IV hydration Chronic abdominal pain with diarrhea, GI workup negative, suspected cannabinoid hyperemesis syndrome Coronary artery disease with previous stenting 2 History of chronic pain with opioid dependency and abuse Essential hypertension Hyperlipidemia Cannabis use disorder, patient is a daily marijuana smoker Obesity: BMI 30.7 PLAN: Cardiology on consult. Appreciate recommendations and input Echocardiogram ordered. Await results IV fluid @ 150 mL an hour Monitor renal function. Daily CMP Patient is not to be prescribed narcotics during hospitalization. Patient may have Toradol IV per Dr Nava, only 15mg due to renal failure Home meds as appropriate Monitor labs GI prophylaxis: Protonix 40 mg PO Daily DVT prophylaxis: Heparin 5000 units subcu every 8 hours Monitor vital signs and address as appropriate Discharge planning: Patient to return home when stable Further recommendations pending patient's course Nurse practitioner note has been reviewed by physician. Signing provider agrees with the documented findings, assessment, and plan of care.
[2017-07-14] MEDS: KETOROLAC 30 MG/ML 1 ML VIAL IVP PRN ×2 (15:42→22:03)
[2017-07-14] MEDS: LORazepam 1 MG TAB PO PRN (22:03)
[2017-07-15] MEDS: SODIUM CHLORIDE 0.9% 1,000 ML IV SCH (00:20)
[2017-07-15] MEDS: KETOROLAC 30 MG/ML 1 ML VIAL IVP PRN (04:47)
[2017-07-15] MEDS: PANTOPRAZOLE 40 MG TABLET PO SCH (05:53)
[2017-07-15] MEDS: LEVOTHYROXINE 75 MCG TAB PO SCH (05:53)
[2017-07-15 06:54] LABS: ALT 29 U/L (21-72); AST 20 U/L (17-59); Albumin 3.8 g/dL (3.5-5.0); Alkaline Phosphatase 69 U/L (38-126); Anion Gap 9 mmol/L; Blood Urea Nitrogen 22 mg/dL (9-20); Carbon Dioxide 26 mmol/L (22-30); Chloride 106 mmol/L (98-107); Glucose 98 mg/dL (74-99); Sodium 141 mmol/L (137-145); Total Bilirubin 0.6 mg/dL (0.2-1.3); Total Protein 5.9 g/dL (6.3-8.2)
[2017-07-15] MEDS: FERROUS SULFATE 325 MG TAB PO SCH (08:28)
[2017-07-15] MEDS: GABAPENTIN 300 MG CAP PO SCH (08:28)
[2017-07-15] MEDS: ESCITALOPRAM 10 MG TAB PO SCH (08:28)
[2017-07-15] MEDS: cloNIDine HCL 0.1 MG TAB PO SCH (08:28)
[2017-07-15] MEDS: CHOLECALCIFEROL 1,000 UNIT TAB PO SCH (08:30)
[2017-07-15] MEDS ORDERED: ASPIRIN 81 MG PO SCH (09:00)
--- NOTE | 2017-07-15 10:02 | ECHOF ---
Referral Reason:chest pain MEASUREMENTS -------- HEIGHT: 162.6 cm WEIGHT: 100.2 kg BP: 114/71 RVIDd: 3.6 cm (< 3.3) IVSd: 1.3 cm (0.6 - 1.1) LVIDd: 4.7 cm (3.9 - 5.3) LVPWd: 1.4 cm (0.6 - 1.1) IVSs: 1.7 cm LVIDs: 4.0 cm LVPWs: 1.5 cm LA Diam: 3.6 cm (2.7 - 3.8) LAESV Index (A-L): 28.08 ml/m Ao Diam: 4.1 cm (2.0 - 3.7) AV Cusp: 2.3 cm (1.5 - 2.6) LA Diam: 4.7 cm (2.7 - 3.8) MV EXCURSION: 24.729 mm (> 18.000) MV EF SLOPE: 125 mm/s (70 - 150) EPSS: 0.2 cm MV E Ch[place]: 0.65 m/s MV DecT: 226 ms MV A [place]: 0.67 m/s MV E/A Ratio: 0.97 RAP: 5.00 mmHg RVSP: 17.81 mmHg FINDINGS -------- Sinus rhythm. This was a technically good study. The left ventricular size is normal. There is mild concentric left ventricular hypertrophy. Overa ll left ventricular systolic function is low-normal with, an EF between 50 - 55 %. The right ventricle is normal in size. The left atrial size is normal. Normal LA size by volume 22+/-6 ml/m2. The right atrial size is normal. The aortic valve is trileaflet, and appears structurally normal. No aortic stenosis or regurgitation. Mild mitral annular calcification present. Mild mitral regurgitation is present. Mild tricuspid regurgitation present. There is no evidence of pulmonary hypertension. The right v entricular systolic pressure, as measured by Doppler, is 17.81mmHg. There is no pulmonic regurgitation present. The aortic root size is normal. There is no pericardial effusion. CONCLUSIONS -------- 1. This was a technically good study. 2. The left ventricular size is normal. 3. There is mild concentric left ventricular hypertrophy. 4. Overall left ventricular systolic function is low-normal with, an EF between 50 - 55 %. 5. The right ventricle is normal in size. 6. The left atrial size is normal. 7. Normal LA size by volume 22+/-6 ml/m2. 8. The right atrial size is normal. 9. The aortic valve is trileaflet, and appears structurally normal. No aortic stenosis or regurgitati on. 10. Mild mitral annular calcification present. 11. Mild mitral regurgitation is present. 12. Mild tricuspid regurgitation present. 13. There is no evidence of pulmonary hypertension. 14. The right ventricular systolic pressure, as measured by Doppler, is 17.81mmHg. 15. There is no pulmonic regurgitation present. 16. The aortic root size is normal. 17. There is no pericardial effusion. NURSE PLASTICS: Cherelle Moura RDCS
--- NOTE | 2017-07-15 10:52 | P.PN ---
Subjective Progress Note Date: 07/15/17 Principal diagnosis: Syncope This is a 62-year-old gentleman who follows with Dr. Garland in the office. He has a known history of coronary artery disease with prior stent placement in 2007 and 2013 according to the patient, history also of hypertension, hyperlipidemia, patient has been intolerant of statins, was initiated on Crestor after that and developed significant lower extremity muscle weakness. After the Crestor was discontinued symptoms seemed to resolve. Patient also has chronic pain issues for which he follows with the pain specialist, he was recently started on Neurontin as an outpatient. Patient presents to the hospital on this occasion with symptoms of chest tightness as well as 2 syncopal episodes. He states that the day before yesterday patient was in the kitchen and experienced a brief episode of chest tightness which somewhat reminded him of what he had prior to his stent placement. Yesterday according to the patient, he was walking in his house became dizzy and passed out on 2 separate occasions a waking up on the floor. He states that he did not injure himself. He was mildly confused upon wakening but oriented himself quickly after he woke up. Patient also has been having diarrhea quite regularly at home with symptoms of abdominal pain. This appears to be a chronic issue for the patient as he has had multiple hospital admissions with abdominal pain. He does have a history of chronic pain syndrome and opiate dependency. also has been noted to have hospital admissions related to acute kidney injury secondary to dehydration duration related to vomiting and diarrhea. EKG on admission showed normal sinus rhythm with inferior Q waves. Repeat EKG this morning shows normal sinus rhythm with first-degree AV block and inferior Q waves. Asked x-ray does not reveal any acute process. Blood pressure 114/70 with a heart rate in the 60s to 70s, temperature 97.7, he is 98% on 2 L oxygen. White blood cell count 11.2, hemoglobin 14.1, platelet count 273. D-dimer 0.19. Sodium 136, potassium 4.1, BUN 46, creatinine 3.7. Troponin 0.018, 0.012, 0.012. It appears that the most recent stress test was performed in the office on February 022015. At the time of my examination this morning, patient denies any dizziness or lightheadedness, no chest discomfort. 07/15/2017 Patient seen and examined this morning, he's been up ambulating in the hallway without any difficulty. Denies any chest discomfort, no dizziness or lightheadedness. Orthostatics were obtained which came back to be negative. Blood pressure 128/78, heart rate in the 60s, 97% on room air. Sodium 141, potassium 4.5, BUN 22, creatinine 0.8. No significant tachycardia or bradycardia arrhythmias have been noted on the monitor. Objective - Vital Signs Vital signs: Vital Signs Temp 97.2 F L 07/15/17 04:00 Pulse 68 07/15/17 04:00 Resp 18 07/15/17 04:00 BP 128/79 07/15/17 04:00 Pulse Ox 97 07/15/17 04:00 Intake & Output 07/14/17 07/15/17 07/15/17 18:59 06:59 18:59 Intake Total 1580 840 180 Output Total 1700 550 Balance -120 290 180 Weight 99.9 kg Intake: Intake, IV Titration 1350 Amount Sodium Chloride 0.9% 1, 1350 000 ml @ 150 mls/hr IV . Q6H40M [facility] Rx#:[id number] Oral 230 840 180 Output: Urine 1700 550 Other: Voiding Method Toilet Toilet Urinal Urinal # Voids 3 - Exam PHYSICAL EXAMINATION: GENERAL: 22-year-old gentleman in no apparent distress at the time of my examination. HEENT: Head is atraumatic, normocephalic. Pupils equal, round. Sclera anicteric. Conjunctiva are clear. Mucous membranes of the mouth are moist. Neck is supple. There is no elevated jugular venous pressure.] bruit is heard. HEART EXAMINATION: Heart S1, S2 normal. No murmur or gallop heard. CHEST EXAMINATION: Lungs are clear to auscultation and precussion. No chest wall tenderness is noted on palpation or with deep breathing. ABDOMEN: Soft, nontender. Bowel sounds are heard. No organomegaly noted. EXTREMITIES: 2+ peripheral pulses with no evidence of peripheral edema and no calf tenderness noted. NEUROLOGIC patient is awake, alert and oriented -3. - Labs CBC & Chem 7: 07/13/17 17:40 07/15/17 06:15 Labs: Abnormal Lab Results - Last 24 Hours (Table) 07/14/17 07/14/17 07/15/17 Range/Units 10:42 10:42 06:15 APTT 40.3 H (22.0-30.0) sec BUN 33 H 22 H (9-20) mg/dL Glucose 110 H (74-99) mg/dL Total Protein 6.1 L 5.9 L (6.3-8.2) g/dL Assessment and Plan Plan: Assessment and plan #1 chest discomfort in the form of chest tightness, somewhat atypical for acute coronary syndrome. Troponin 0.018, 0.012, 0.012. D-dimer negative. EKG shows normal sinus rhythm with inferior Q waves. #2 acute renal failure likely secondary to dehydration from vomiting and diarrhea. Patient has had multiple hospitalizations with similar situation, renal failure improves after hydration. #3 known history of coronary artery disease with prior stent placement #4 hypertension #5 syncope, rule out cardiac causes #6 hyperlipidemia #7 chronic pain syndrome with history of opiate abuse Plan Echocardiogram with Doppler study was performed which revealed an ejection fraction of 50-55%. BUN today 22, creatinine 0.8. From cardiology's perspective, patient may be able to be discharged home today. He will have a 30 day event monitor on discharge and then a follow-up appointment will be made with Dr. Patrick in 6 weeks. DNP note has been reviewed, I agree with a documented findings and plan of care. Patient was seen and examined.
[2017-07-15 11:12] VITALS: BP 163/86; PULSE 85; RESP 16; TEMP 97.8
--- NOTE | 2017-07-15 12:20 | P.DS ---
Providers Date of admission: 07/13/17 19:37 Expected date of discharge: 07/15/17 Attending physician: Miki Nava Consults: 07/13/17 19:33 Consult Physician Urgent Consulting Provider: [facility] Consult Reason/Comments: Chest Pain; Syncope Do you want consulting provider notified?: Yes Primary care physician: Miki Nava [facility] Hospital Course: 62-year-old male who presented to the emergency room with a chief complaint of chest pain. The patient reports he was at home in his kitchen doing dishes when he began to have chest pain that he describes as a heavy pressure. He also states he had associated shortness of breath. He states that he went to sit down and it subsided for a little while but then he decided to come to the emergency room for further evaluation. The patient also reports 2 days ago he was outside mowing the grass and he began to feel very lightheaded and dizzy. The patient reports 2 syncopal episodes at this time. The patient also reports he was started on gabapentin recently. He states his dose was started at 100 mg and he is up to 300 mg 3 times a day. He reports abdominal pain with diarrhea shortly after taking his Neurontin. The patient has a history of coronary artery disease, gastroesophageal reflux disease, hypertension, hyperlipidemia, and history of opioid abuse. Patient has a history of multiple heart attacks and the patient states he has had "over 10 heart attacks". He states he had a stent placement in 2007 and 2013. Most recent echocardiogram is from October 2016 which reveals an ejection fraction of 55-60%. The patient has had multiple hospitalizations secondary to nausea, vomiting, and abdominal pain. During his hospitalizations, the patient has found to be in acute renal failure. He is hydrated with IV fluids and his kidney function normalizes and his symptoms subside. The patient also has a history of irritable bowel syndrome and persistent GI symptoms of nausea, vomiting, and diarrhea lasting for the past 5 years. He underwent GI workup in 2017 including EGD in May 2016 which showed mild antral gastritis, small hiatal hernia, and no evidence of peptic ulcer disease. The patient's GI symptoms seem to coincide with his daily cannabis use. The patient has been encouraged multiple times to discontinue marijuana use. Chest x-ray: Negative for an acute process. However at the left costophrenic angle is a 3 cm horizontally oriented ill-defined opacity which appears to project posteriorly within the left lobe on the lateral radiograph. Most likely representing atelectasis. 6 week follow-up x-ray recommended. Laboratory data: WBC 11.2. Hemoglobin 14.1. Platelet count 273. Sodium 136. Potassium 4.1. BUN 46. Creatinine 3.70. Glucose 104. Magnesium 2.0. Troponin: 0.018, less than 0.012, less than 0.012 CK-MB: 6.2, 5.8, 5.1 Total creatinine kinase: 359, 329, 282 D-dimer: 0.19 The patient was admitted to the hospital under the care of Dr. Nava. Consultations were placed to cardiology. Cardiology evaluated the patient. No arrhythmias were seen on telemetry tracings. Cardiology states they may do a stress test on an outpatient basis. The patient was cleared for discharge from a cardiac standpoint. No acute intervention during hospitalization from their standpoint. Patient is to receive an event monitor per cardiology at the time of discharge. The patient received IV hydration during hospitalization. His renal function has normalized and is back to his baseline. The patient denies any further episodes of chest pain or pressure. The patient was deemed stable for discharge per Dr. Nava. He is to follow up on an outpatient basis. DISCHARGE DIAGNOSIS: Chest pain with shortness of breath, troponin 0.018, 0.012, 0.012, acute coronary syndrome ruled out per cardiology Syncope 2, etiology unclear, patient to receive event monitor at the time of discharge Acute renal failure likely secondary to hypovolemia secondary to diarrhea and decreased oral intake, creatinine 3.70 on admission, baseline 1.0 Multiple hospitalizations secondary to acute renal failure secondary to hypovolemia due to diarrhea and decreased oral intake, which improved with IV hydration Chronic abdominal pain with diarrhea, GI workup negative, suspected cannabinoid hyperemesis syndrome Coronary artery disease with previous stenting 2 History of chronic pain with opioid dependency and abuse Essential hypertension Hyperlipidemia Cannabis use disorder, patient is a daily marijuana smoker Obesity: BMI 30.7 Nurse practitioner note has been reviewed by physician. Signing provider agrees with the documented findings, assessment, and plan of care. Patient Condition at Discharge: Stable Plan - Discharge Summary Discharge Rx Participant: Yes New Discharge Prescriptions: Continue cloNIDine HCL [Clonidine HCl] 0.1 mg PO TID Levothyroxine Sodium [Synthroid] 75 mcg PO DAILY Omeprazole 20 mg PO DAILY Losartan [Cozaar] 50 mg PO DAILY Dicyclomine [Bentyl] 20 mg PO AC-TID PRN PRN Reason: Abdominal Cramping Aspirin [Adult Low Dose Aspirin EC] 81 mg PO DAILY Nitroglycerin Sl Tabs [Nitrostat] 0.4 mg SUBLINGUAL Q5M PRN PRN Reason: Chest Pain Diphenoxylate HCl/Atropine [Lomotil 2.5-0.025 mg Tablet] 1 tab PO Q8H PRN PRN Reason: Diarrhea Cholecalciferol [Vitamin D3] 2,000 unit PO DAILY Escitalopram [Lexapro] 30 mg PO DAILY Ferrous Sulfate [Iron (65 MG Elemental)] 325 mg PO DAILY LORazepam [Ativan] 1 mg PO HS PRN PRN Reason: FOR ANXIETY/SLEEP Gabapentin [Neurontin] 300 mg PO TID Discharge Medication List cloNIDine HCL [Clonidine HCl] 0.1 mg PO TID 11/16/15 [History] Levothyroxine Sodium [Synthroid] 75 mcg PO DAILY 05/04/16 [History] Omeprazole 20 mg PO DAILY 05/04/16 [History] Dicyclomine [Bentyl] 20 mg PO AC-TID PRN 05/31/16 [History] Losartan [Cozaar] 50 mg PO DAILY 05/31/16 [History] Aspirin [Adult Low Dose Aspirin EC] 81 mg PO DAILY 06/24/16 [History] Diphenoxylate HCl/Atropine [Lomotil 2.5-0.025 mg Tablet] 1 tab PO Q8H PRN [History] Nitroglycerin Sl Tabs [Nitrostat] 0.4 mg SUBLINGUAL Q5M PRN 07/19/16 [History] Cholecalciferol [Vitamin D3] 2,000 unit PO DAILY 09/23/16 [History] Escitalopram [Lexapro] 30 mg PO DAILY 12/16/16 [History] Ferrous Sulfate [Iron (65 MG Elemental)] 325 mg PO DAILY 03/01/17 [History] LORazepam [Ativan] 1 mg PO HS PRN 04/05/17 [History] Gabapentin [Neurontin] 300 mg PO TID 07/13/17 [History] Follow up Appointment(s)/Referral(s): Miki Nava DO [Primary Care Provider] - 07/22/17 10:50 am (Tuesday) Kashmir Patrick MD [STAFF PHYSICIAN] - 08/26/17 9:45 am (TUESDAY) Patient Instructions/Handouts: Holter Monitoring (DC), Syncope (DC) Activity/Diet/Wound Care/Special Instructions: 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
== END 2017-07-15 10:58 | disposition home or self-care (01) | DRG 313 ==
LOC: EC 16:57 → 6SEL 19:37
PROVIDERS: ADMIT Family Medicine; ATTEND Family Medicine
DX: R07.89 Other chest pain (principal); J98.11 Atelectasis; N17.9 Acute kidney failure, unspecified; E66.9 Obesity, unspecified; E78.5 Hyperlipidemia, unspecified; E86.0 Dehydration; F12.90 Cannabis use, unspecified, uncomplicated; G89.4 Chronic pain syndrome; I10 Essential (primary) hypertension; I25.10 Atherosclerotic heart disease of native coronary artery without angina pectoris; I25.2 Old myocardial infarction; I44.0 Atrioventricular block, first degree; K21.9 Gastro-esophageal reflux disease without esophagitis; K58.0 Irritable bowel syndrome with diarrhea; E07.9 Disorder of thyroid, unspecified; G43.909 Migraine, unspecified, not intractable, without status migrainosus; M19.90 Unspecified osteoarthritis, unspecified site; M51.36 Other intervertebral disc degeneration, lumbar region; I95.9 Hypotension, unspecified; M54.5 Low back pain; R55 Syncope and collapse; K57.90 Diverticulosis of intestine, part unspecified, without perforation or abscess without bleeding; Z68.30 Body mass index [BMI] 30.0-30.9, adult; Z79.82 Long term (current) use of aspirin; Z79.899 Other long term (current) drug therapy; Z95.5 Presence of coronary angioplasty implant and graft; Z87.891 Personal history of nicotine dependence; Z87.01 Personal history of pneumonia (recurrent); Z88.8 Allergy status to other drugs, medicaments and biological substances; Z90.49 Acquired absence of other specified parts of digestive tract; Z80.8 Family history of malignant neoplasm of other organs or systems; Z82.49 Family history of ischemic heart disease and other diseases of the circulatory system; Z83.3 Family history of diabetes mellitus; Z83.49 Family history of other endocrine, nutritional and metabolic diseases
CPT/HCPCS: 36415; 71046; 80053; 80061; 82150; 82550; 82553; 83690; 83735; 84484; 85025; 85379; 85610; 85730; 93005; 93306; 96365; 96366; 96376; 99285

== ENCOUNTER 2017-07-28 11:05 | Inpatient (IN) | payer MEDICARE ==
[2017-07-28] MEDS ORDERED: SODIUM CHLORIDE 0.9% 2,000 ML IV STA (11:16)
[2017-07-28] MEDS ORDERED: ONDANSETRON 4 MG/2 ML VIAL IVP STA (11:16)
[2017-07-28] MEDS ORDERED: MORPHINE SULFATE 2 MG/ML SYRINGE IVP STA (11:17)
--- NOTE | 2017-07-28 12:01 | ED ---
Nausea/Vomiting/Diarrhea HPI - General Chief complaint: Nausea/Vomiting/Diarrhea Stated complaint: POSS DEHYDRATION, KIDNEY PROBLEM Time Seen by Provider: 07/28/17 11:16 Source: patient, RN notes reviewed Mode of arrival: ambulatory Limitations: no limitations - History of Present Illness Initial comments: This a 62-year-old male presents emergency Department chief complaint of nausea vomiting dehydration. Patient states he's been sick for last day or so. Patient states that he's had problems with his kidneys when he gets dehydrated. Patient also states that he's had ongoing vomiting and which this was found to be was by cannabis use. Patient denies any fever or chills. He does have some diarrhea. Patient complains of diffuse abdominal pain. Patient denies any chest pain or shortness of breath. - Related Data Home Medications Medication Instructions Recorded Confirmed cloNIDine HCL [Clonidine HCl] 0.1 mg PO TID 11/16/15 07/28/17 Levothyroxine Sodium [Synthroid] 75 mcg PO DAILY 05/04/16 07/28/17 Omeprazole 20 mg PO DAILY 05/04/16 07/28/17 Dicyclomine [Bentyl] 20 mg PO AC-TID PRN 05/31/16 07/28/17 Losartan [Cozaar] 50 mg PO DAILY 05/31/16 07/28/17 Aspirin [Adult Low Dose Aspirin EC] 81 mg PO DAILY 06/24/16 07/28/17 Diphenoxylate HCl/Atropine 1 tab PO Q8H PRN 07/19/16 07/28/17 [Lomotil 2.5-0.025 mg Tablet] Nitroglycerin Sl Tabs [Nitrostat] 0.4 mg SUBLINGUAL Q5M PRN 07/19/16 07/28/17 Cholecalciferol [Vitamin D3] 2,000 unit PO DAILY 09/23/16 07/28/17 Escitalopram [Lexapro] 30 mg PO DAILY 12/16/16 07/28/17 Ferrous Sulfate [Iron (65 MG 325 mg PO DAILY 03/01/17 07/28/17 Elemental)] LORazepam [Ativan] 1 mg PO HS PRN 04/05/17 07/28/17 Allergies Allergy/AdvReac Type Severity Reaction Status Date / Time Beta-Blockers Allergy Rash/Hives Verified 07/28/17 12:09 (Beta-Adrenergic Bloc paroxetine HCl [From Paxil] AdvReac Unknown Abdominal Verified 07/28/17 12:09 Pain Review of Systems ROS Statement: Those systems with pertinent positive or pertinent negative responses have been documented in the HPI. ROS Other: All systems not noted in ROS Statement are negative. Past Medical History Past Medical History: Coronary Artery Disease (CAD), Chest Pain / Angina, GERD/ Reflux, Hyperlipidemia, Hypertension, Myocardial Infarction ([place]), Musculoskeletal Disorder, Osteoarthritis (OA), Renal Disease, Thyroid Disorder Additional Past Medical History / Comment(s): Chronic low back pain DIVERTICULITIS, IBS, renal insufficiency with dehydration. Hx bronchitis & pneumonia, migraines, SMALL HIATAL HERNIA.lumbar ddd(pain clinic procedures) Last Myocardial Infarction Date:: 2013 History of Any Multi-Drug Resistant Organisms: None Reported Past Surgical History: Back Surgery, Cholecystectomy, Heart Catheterization With Stent, Hernia Repair, Orthopedic Surgery Additional Past Surgical History / Comment(s): COLONOSCOPY, EGD, ORIF LT ANKLE, L ANKLE SX, BACK SURGERIES fusion L3-L5, LT HAND SURGERY D/T FRACTURE, RT KNEE ARTHROSCOPIC X 2, RT ELBOW TENDON RELEASE SURG, LUMBAR SPINE CYST REMOVAL, HIATAL HERNIA REPAIR, right shoulder arthroscopy, back injections. Past Anesthesia/Blood Transfusion Reactions: No Reported Reaction Date of Last Stent Placement:: 2013 Past Psychological History: No Psychological Hx Reported Smoking Status: Former smoker - Past Family History Mother Family Medical History: Thyroid Disorder Additional Family Medical History / Comment(s): Mother is living. Father Family Medical History: Diabetes Mellitus, Myocardial Infarction ([place]) Additional Family Medical History / Comment(s): [place], [place] in his 50's or 60's. from MVA when he was in his 80's Sister(s) Family Medical History: Cancer, Thyroid Disorder Additional Family Medical History / Comment(s): SKIN CA/ #2 sister had thyroid cancer General Exam Limitations: no limitations General appearance: alert, in no apparent distress Head exam: Present: atraumatic, normocephalic, normal inspection Eye exam: Present: normal appearance, PERRL, EOMI. Absent: scleral icterus, conjunctival injection, periorbital swelling Respiratory exam: Present: normal lung sounds bilaterally. Absent: respiratory distress, wheezes, rales, rhonchi, stridor Cardiovascular Exam: Present: regular rate, normal rhythm, normal heart sounds. Absent: systolic murmur, diastolic murmur, rubs, gallop, clicks GI/Abdominal exam: Present: soft, tenderness (Mild to moderate diffuse), normal bowel sounds. Absent: distended, guarding, rebound, rigid Back exam: Absent: CVA tenderness (R), CVA tenderness (L) Skin exam: Present: warm, dry, intact, normal color. Absent: rash Course Vital Signs 07/28/17 07/28/17 11:10 13:12 Temperature 97.9 F Pulse Rate 105 H 78 Respiratory 18 16 Rate Blood Pressure 164/124 167/84 O2 Sat by Pulse 99 98 Oximetry Medical Decision Making - Lab Data Result diagrams: 07/28/17 11:54 07/28/17 11:54 Lab Results 07/28/17 07/28/17 Range/Units 11:54 11:54 WBC 16.1 H (3.8-10.6) k/uL RBC 5.47 (4.30-5.90) m/uL Hgb 17.1 (13.0-17.5) gm/dL Hct 48.1 (39.0-53.0) % MCV 87.8 (80.0-100.0) fL MCH 31.2 (25.0-35.0) pg MCHC 35.6 (31.0-37.0) g/dL RDW 13.2 (11.5-15.5) % Plt Count 337 (150-450) k/uL Neutrophils % 85 % Lymphocytes % 9 % Monocytes % 4 % Eosinophils % 0 % Basophils % 0 % Neutrophils # 13.8 H (1.3-7.7) k/uL Lymphocytes # 1.5 (1.0-4.8) k/uL Monocytes # 0.7 (0-1.0) k/uL Eosinophils # 0.0 (0-0.7) k/uL Basophils # 0.0 (0-0.2) k/uL Sodium 142 (137-145) mmol/L Potassium 4.5 (3.5-5.1) mmol/L Chloride 103 (98-107) mmol/L Carbon Dioxide 12 L (22-30) mmol/L Anion Gap 27 mmol/L BUN 30 H (9-20) mg/dL Creatinine 2.88 H (0.66-1.25) mg/dL Est GFR (CKD-EPI)AfAm 26 (>60 ml/min/1.73 sqM) Est GFR (CKD-EPI)NonAf 22 (>60 ml/min/1.73 sqM) Glucose 188 H (74-99) mg/dL Calcium 11.6 H (8.4-10.2) mg/dL Total Bilirubin 1.2 (0.2-1.3) mg/dL AST 24 (17-59) U/L ALT 32 (21-72) U/L Alkaline Phosphatase 112 (38-126) U/L Total Protein 9.2 H (6.3-8.2) g/dL Albumin 5.9 H (3.5-5.0) g/dL Amylase 61 (30-110) U/L Lipase 126 (23-300) U/L Disposition Clinical Impression: Intractable vomiting with nausea, Acute kidney failure Disposition: ADMITTED IP TO THIS [facility] Condition: Stable Referrals: Miki Nava DO [Primary Care Provider] - 1-2 days
[2017-07-28 12:11] LABS: Basophils % (A) 0 %; Eosinophils % (A) 0 %; HCT 48.1 % (39.0-53.0); HGB 17.1 gm/dL (13.0-17.5); Lymphocytes # (A) 1.5 k/uL (1.0-4.8); Lymphocytes % (A) 9 %; MCH 31.2 pg (25.0-35.0); MCHC 35.6 g/dL (31.0-37.0); MCV 87.8 fL (80.0-100.0); Mean Platelet Volume 7.2; Monocytes # (A) 0.7 k/uL (0-1.0); Monocytes % (A) 4 %; Neutrophils # (A) 13.8 k/uL (1.3-7.7); Neutrophils % (A) 85 %; Platelet Count 337 k/uL (150-450); RBC 5.47 m/uL (4.30-5.90); RDW 13.2 % (11.5-15.5); WBC 16.1 k/uL (3.8-10.6)
[2017-07-28] MEDS ORDERED: METOCLOPRAMIDE 5 MG/ML 2 ML VIAL IVP STA (12:23)
[2017-07-28 12:36] LABS: Albumin 5.9 g/dL (3.5-5.0); Calcium 11.6 mg/dL (8.4-10.2); Potassium 4.5 mmol/L (3.5-5.1); Total Bilirubin 1.2 mg/dL (0.2-1.3); Total Protein 9.2 g/dL (6.3-8.2)
[2017-07-28] MEDS ORDERED: NALOXONE 0.4 MG/ML 1 ML VIAL IV PRN (13:53)
[2017-07-28] MEDS ORDERED: ONDANSETRON 4 MG/2 ML VIAL IVP PRN (13:54)
[2017-07-28 14:12] LABS: Appearance,Urine Cloudy (Clear); Bacteria,Urine Rare /hpf; Bilirubin,Urine 1+ (Negative); Blood,Urine Trace (Negative); Color,Urine Dark Yellow; Glucose,Urine (UA) Trace (Negative); Hyaline Casts,Urine 71 /lpf (0-2); Ketones,Urine Trace (Negative); Leukocyte Esterase,Urine Trace (Negative); Mucus,Urine Many /hpf; Nitrite,Urine Negative (Negative); PH, Urine 5.5 (5.0-8.0); Protein,Urine 2+ (Negative); RBC,Urine 3 /hpf (0-5); Squamous Epithelial Cell,Urine 1 /hpf (0-4); WBC,Urine 4 /hpf (0-5)
[2017-07-28] MEDS: SODIUM CHLORIDE 0.9% 1,000 ML IV SCH (14:27)
[2017-07-28] MEDS ORDERED: NITROGLYCERIN SL TABS 0.4 MG TAB SUBLINGUAL PRN (17:01)
[2017-07-28] MEDS ORDERED: DICYCLOMINE 20 MG TAB PO PRN (17:01)
[2017-07-28] MEDS ORDERED: LORazepam 1 MG TAB PO PRN (17:01)
[2017-07-28] MEDS ORDERED: LOSARTAN 50 MG TAB PO SCH (17:15)
[2017-07-28] MEDS: ACETAMINOPHEN TAB 500 MG TAB PO PRN ×2 (17:17→22:28)
[2017-07-28] MEDS: PANTOPRAZOLE 40 MG TABLET PO SCH (17:18)
[2017-07-28] MEDS: LEVOTHYROXINE 75 MCG TAB PO SCH (17:18)
[2017-07-28] MEDS: cloNIDine HCL 0.1 MG TAB PO SCH ×2 (17:18→22:28)
[2017-07-28] MEDS: ESCITALOPRAM 10 MG TAB PO SCH (17:18)
[2017-07-28] MEDS: ASPIRIN 81 MG PO SCH (17:18)
[2017-07-29] MEDS: ACETAMINOPHEN TAB 500 MG TAB PO PRN ×2 (04:44→16:36)
[2017-07-29] MEDS: SODIUM CHLORIDE 0.9% 1,000 ML IV SCH ×2 (05:22→15:54)
[2017-07-29] MEDS: LEVOTHYROXINE 75 MCG TAB PO SCH (06:48)
[2017-07-29] MEDS: ASPIRIN 81 MG PO SCH (07:51)
[2017-07-29 07:52] LABS: HCT 37.6 % (39.0-53.0); MCH 32.5 pg (25.0-35.0); MCHC 35.2 g/dL (31.0-37.0); MCV 92.3 fL (80.0-100.0); Mean Platelet Volume 6.9; Platelet Count 218 k/uL (150-450); RBC 4.08 m/uL (4.30-5.90); RDW 13.6 % (11.5-15.5); WBC 8.7 k/uL (3.8-10.6)
[2017-07-29] MEDS: cloNIDine HCL 0.1 MG TAB PO SCH ×2 (07:52→15:54)
[2017-07-29] MEDS: PANTOPRAZOLE 40 MG TABLET PO SCH (07:52)
[2017-07-29] MEDS: ESCITALOPRAM 10 MG TAB PO SCH (07:52)
[2017-07-29 08:05] LABS: HGB 13.2 gm/dL (13.0-17.5)
[2017-07-29 08:29] LABS: Potassium 4.6 mmol/L (3.5-5.1)
--- NOTE | 2017-07-29 08:57 | P.CONS ---
History of Present Illness - Reason for Consult Consult date: 07/29/17 nausea vomiting Requesting physician: Miki Nava - History of Present Illness 62-year-old gentleman known to Dr. Darnell mosher with a past medical history of opiate dependency 15 years duration discontinued 2015, IBS-mixed, chronic nausea vomiting abdominal pain greater than 5 years, cholecystectomy, PSBO, CAD , hyperlipidemia, hypertension, chronic back pain, VT, and neuropathy. Patient admitted with intractable nausea vomiting abdominal cramping. He was hospitalized 2 weeks ago with chest pain shortness of breath and lightheadedness dizziness as well as intermittent nausea vomiting abdominal cramping. Patient states 4 months ago he was prescribed gabapentin and since then he has been experiencing nausea vomiting and abdominal cramps prior to that his symptoms of nausea vomiting abdominal pain were controlled. He discontinued gabapentin 3 days ago. Over the last few days he's had persistent intermittent nausea vomiting abdominal cramping and loose stools. Denies fever chills hematemesis hematochezia or melena. EGD May 2016 no evidence of peptic ulcer disease small hiatal hernia. Admission BUN creatinine elevated at 30 and 2.8. White count 16.1 hemoglobin 17.1. Presently white count is 8.7. Hemoglobin 13.2. Creatinine improved 1.1. BUN 23. Feels better today denies abdominal pain. Requesting diet advancement. No bowel movements 24 hours. Patient feels his symptoms are possibly related to gabapentin. Review of Systems Constitutional: Denies fever, chills, sweats, weight gain, or loss. HEENT: Negative for migraines, blurred vision or loss, earaches, drainage, tinnitus, oral mucosal lesions, dysphagia, or odynophagia. Cardiac: Negative for chest pain, arrhythmias, or palpitation. Respiratory: Negative for shortness of breath, hemoptysis, cough, or sputum production. Gastrointestinal: See HPI for pertinent findings. Genitourinary: Negative for hematuria, urgency, frequency, polyuria, dysuria, or penile discharge. Musculoskeletal: Negative for muscle aches, swelling, arthritis, and arthralgias. Neurologic: Negative for stroke or TIA. Endocrine: Negative for thyroid problems. Skin: Negative for rash or itching. Psychiatric: Negative history for depression and anxiety Past Medical History Past Medical History: Coronary Artery Disease (CAD), Chest Pain / Angina, GERD/ Reflux, Hyperlipidemia, Hypertension, Myocardial Infarction (VT), Musculoskeletal Disorder, Osteoarthritis (OA), Renal Disease, Syncope, Thyroid Disorder Additional Past Medical History / Comment(s): Chronic low back pain DIVERTICULITIS, IBS, renal insufficiency with dehydration. Hx bronchitis & pneumonia, migraines, SMALL HIATAL HERNIA.lumbar ddd(pain clinic procedures) Last Myocardial Infarction Date:: 2013 History of Any Multi-Drug Resistant Organisms: None Reported Past Surgical History: Back Surgery, Cholecystectomy, Heart Catheterization With Stent, Hernia Repair, Orthopedic Surgery Additional Past Surgical History / Comment(s): COLONOSCOPY, EGD, ORIF LT ANKLE, L ANKLE SX, BACK SURGERIES fusion L3-L5, LT HAND SURGERY D/T FRACTURE, RT KNEE ARTHROSCOPIC X 2, RT ELBOW TENDON RELEASE SURG, LUMBAR SPINE CYST REMOVAL, HIATAL HERNIA REPAIR, right shoulder arthroscopy, back injections. Past Anesthesia/Blood Transfusion Reactions: No Reported Reaction Date of Last Stent Placement:: 2013 Past Psychological History: Depression Additional Psychological History / Comment(s): pt resides with his spouse in a ranch style home that has 2 front steps. He uses a cane as needed. He drives.has 2 pet dogs(1 pit bull and 1 serbian comer) Smoking Status: Former smoker Past Alcohol Use History: None Reported Additional Past Alcohol Use History / Comment(s): Smoked from 1971 to 1983 SMOKED 1PPD Past Drug Use History: Marijuana Additional Drug Use History / Comment(s): was smoking MEDICAL marijuana nearly daily but quit 2 days ago(07-26-). Pt states he used opiates in the past- does not take since 2014 - Past Family History Mother Family Medical History: Thyroid Disorder Additional Family Medical History / Comment(s): Mother is living. Father Family Medical History: Coronary Artery Disease (CAD), Diabetes Mellitus Additional Family Medical History / Comment(s): triple bypass Sister(s) Family Medical History: Cancer, Thyroid Disorder Additional Family Medical History / Comment(s): SKIN CA/ #2 sister had thyroid cancer Medications and Allergies Home Medications Medication Instructions Recorded Confirmed Type cloNIDine HCL [Clonidine HCl] 0.1 mg PO TID 11/16/15 07/28/17 History Levothyroxine Sodium [Synthroid] 75 mcg PO DAILY 05/04/16 07/28/17 History Omeprazole 20 mg PO DAILY 05/04/16 07/28/17 History Dicyclomine [Bentyl] 20 mg PO AC-TID PRN 04/24/17 06/21/18 History Losartan [Cozaar] 50 mg PO DAILY 05/31/16 07/28/17 History Aspirin [Adult Low Dose Aspirin EC] 81 mg PO DAILY 06/24/16 07/28/17 History Diphenoxylate HCl/Atropine 1 tab PO Q8H PRN 07/19/16 07/28/17 History [Lomotil 2.5-0.025 mg Tablet] Nitroglycerin Sl Tabs [Nitrostat] 0.4 mg SUBLINGUAL Q5M PRN 07/19/16 07/28/17 History Cholecalciferol [Vitamin D3] 2,000 unit PO DAILY 09/23/16 07/28/17 History Escitalopram [Lexapro] 30 mg PO DAILY 12/16/16 07/28/17 History Ferrous Sulfate [Iron (65 MG 325 mg PO DAILY 03/01/17 07/28/17 History Elemental)] LORazepam [Ativan] 1 mg PO HS PRN 04/05/17 07/28/17 History Allergies Allergy/AdvReac Type Severity Reaction Status Date / Time Beta-Blockers Allergy Rash/Hives Verified 07/28/17 12:09 (Beta-Adrenergic Bloc paroxetine HCl [From Paxil] AdvReac Unknown Abdominal Verified 07/28/17 12:09 Pain Physical Exam Vitals: Vital Signs Temp Pulse Pulse Resp BP BP Pulse Ox 07/29/17 06:02 97.3 F L 63 17 102/62 97 07/28/17 22:55 97.5 F L 71 16 123/72 95 07/28/17 15:00 99.3 F 88 16 153/101 96 07/28/17 14:23 99.7 F H 78 18 154/86 98 07/28/17 13:12 78 16 167/84 98 07/28/17 11:10 97.9 F 105 H 18 164/124 99 Intake and Output 07/28/17 07/29/17 07/29/17 22:59 06:59 14:59 Intake Total 540 420 Output Total 525 475 Balance 15 -55 Intake: Oral 540 420 Output: Urine 525 475 Other: Voiding Method Toilet Toilet General appearance: The patient is alert, oriented, in no acute distress. HET: Head is normocephalic and atraumatic. Pupils are equal and reactive. Oropharynx is clear without lesions. Neck: Supple without lymphadenopathy. Trachea midline. Heart: S1 S2. Regular rate and rhythm. Lungs: No crackles or wheezes are heard. Abdomen: Soft, nontender, nondistended with bowel sounds. No peritoneal signs. No palpable organomegaly or masses. Extremities: Normal skin color and turgor. No cyanosis, rash, ulceration, clubbing, or edema. Radial and pedal pulses are 2/4 bilaterally. Neurological: No focal deficits. Strength and sensation are grossly intact. Results CBC & Chem 7: 07/29/17 07:40 07/29/17 07:40 Labs: Abnormal Lab Results - Last 24 Hours (Table) 07/28/17 07/28/17 07/28/17 Range/Units 11:54 11:54 13:37 WBC 16.1 H (3.8-10.6) k/uL RBC (4.30-5.90) m/uL Hct (39.0-53.0) % Neutrophils # 13.8 H (1.3-7.7) k/uL Carbon Dioxide 12 L (22-30) mmol/L BUN 30 H (9-20) mg/dL Creatinine 2.88 H (0.66-1.25) mg/dL Glucose 188 H (74-99) mg/dL Calcium 11.6 H (8.4-10.2) mg/dL Total Protein 9.2 H (6.3-8.2) g/dL Albumin 5.9 H (3.5-5.0) g/dL Urine Protein 2+ H (Negative) Urine Glucose (UA) Trace H (Negative) Urine Ketones Trace H (Negative) Urine Blood Trace H (Negative) Urine Bilirubin 1+ H (Negative) Ur Leukocyte Esterase Trace H (Negative) Urine Bacteria Rare H (None) /hpf Hyaline Casts 71 H (0-2) /lpf Urine Mucus Many H (None) /hpf 07/29/17 07/29/17 Range/Units 07:40 07:40 WBC (3.8-10.6) k/uL RBC 4.08 L (4.30-5.90) m/uL Hct 37.6 L (39.0-53.0) % Neutrophils # (1.3-7.7) k/uL Carbon Dioxide (22-30) mmol/L BUN 23 H (9-20) mg/dL Creatinine (0.66-1.25) mg/dL Glucose 100 H (74-99) mg/dL Calcium (8.4-10.2) mg/dL Total Protein (6.3-8.2) g/dL Albumin (3.5-5.0) g/dL Urine Protein (Negative) Urine Glucose (UA) (Negative) Urine Ketones (Negative) Urine Blood (Negative) Urine Bilirubin (Negative) Ur Leukocyte Esterase (Negative) Urine Bacteria (None) /hpf Hyaline Casts (0-2) /lpf Urine Mucus (None) /hpf Assessment and Plan (1) Intractable vomiting with nausea Narrative/Plan: 62-year-old male admitted with intractable nausea vomiting abdominal pain dehydration suspect medication gabapentin related as well as an effect from acute kidney injury. GI symptoms abdominal pain resolving with improvement in kidney function. Current Visit: Yes Status: Acute Code(s): R11.2 - NAUSEA WITH VOMITING, UNSPECIFIED SNOMED Code(s): 287422373 (2) Mixed irritable bowel syndrome Current Visit: Yes Status: Acute Code(s): K58.2 - MIXED IRRITABLE BOWEL SYNDROME SNOMED Code(s): 575958725 (3) JOSIE (acute kidney injury) Current Visit: No Status: Acute Code(s): N17.9 - ACUTE KIDNEY FAILURE, UNSPECIFIED SNOMED Code(s): 55472413 (4) Abdominal pain Current Visit: No Status: Acute Code(s): R10.9 - UNSPECIFIED ABDOMINAL PAIN SNOMED Code(s): 34285730 Plan: 1. Will advance diet; patient is requesting. Inpatient endoscopic exams not planned at this time. Continue supportive measures. Thank you for this kind referral and the opportunity to participate in the care of your patient. This consultation was discussed with Dr. West. The impression and plan of care have been directed as dictated.
[2017-07-29] MEDS ORDERED: FERROUS SULFATE 325 MG TAB PO SCH (09:00)
--- NOTE | 2017-07-29 11:35 | CONS ---
CONSULTATION REASON FOR CONSULT: Renal failure. HISTORY OF PRESENT ILLNESS: The patient is a 62-year-old male who has had a previous history of multiple episodes of acute kidney injury associated with intravascular volume depletion. He was admitted again with the history of nausea and vomiting and abdominal cramps. He did have some diarrhea which is now improved. Patient relates this to having been on gabapentin, which he is now off of. No fevers. No urinary symptoms. Serum creatinine was 2.8 mg/dL on admission and it is now down to 1.10. The patient is maintained on IV fluids. His blood pressure has been slightly on the lower side. Overall, patient states he is feeling better. PAST MEDICAL HISTORY: Significant for multiple episodes of acute kidney injury associated with intravascular volume depletion, history of opiate dependency and IBS, coronary artery disease, hypertension, chronic back pain, history of [place], bronchitis, diverticulitis. PAST SURGICAL HISTORY: Colonoscopy, cholecystectomy, cardiac catheterization, coronary stent placement, hernia repair, right knee arthroscopy, left hand surgery, back surgeries with fusion, right elbow surgery, lumbar spinal cyst removal, right shoulder arthroscopy. SOCIAL HISTORY: Negative for smoking, drug abuse or alcohol abuse. Patient did use marijuana and he is a former smoker. MEDICATIONS: Medications prior to admission included clonidine, Bentyl, Cozaar, Synthroid, omeprazole, vitamin D3, Lexapro, Ativan, iron. ALLERGIES: Allergies include BETA BLOCKERS, which cause rash and hives and PAXIL causes abdominal pain. REVIEW OF SYSTEMS: As per HPI. Other systems negative. PHYSICAL EXAMINATION: On examination, patient is comfortable, awake, alert, oriented x3. He is not in any acute distress. Blood pressure is 102/62, heart rate 63 per minute. He is afebrile. EXAMINATION OF THE HEART: S1, S2. EXAMINATION OF THE LUNGS: Bilateral breath sounds are heard. Abdomen is soft, nontender. Examination of the lower extremities shows no evidence of edema. ANIMAL CARE SPECIALIST exam is grossly intact. Patient moving all 4 extremities. LABS: Labs show sodium 137, potassium 4.6, chloride 103, BUN 23, serum creatinine 1.1, hemoglobin 13.2 g/dL. UA shows 2+ protein, trace ketones, trace blood. ASSESSMENT: 1. Acute kidney injury secondary to intravascular volume depletion, currently significantly improved. Will continue the IV fluids for now. Patient is not on any nephrotoxic medications. 2. Hypothyroidism, maintained on supplementation. 3. History of irritable bowel syndrome and chronic abdominal pain seems to have improved. 4. Hypertension, currently controlled. 5. Gastroesophageal reflux disease, now on omeprazole. PLAN: Continue IV fluids. The blood pressure is currently low. Therefore, we can hold off on the angiotensin receptor blockers, however, if patient's blood pressure is high we can resume the Cozaar given that the renal function has significantly improved. Thank you for this consultation. We will continue to follow the patient with you during his hospitalization. MMODL / IJN: [id number] /
[2017-07-29 15:38] VITALS: BP 113/63; PULSE 59; RESP 14; TEMP 97
== END 2017-07-29 16:55 | disposition home or self-care (01) | DRG 392 ==
LOC: EC 11:05 → 4MS4W 14:01
PROVIDERS: ADMIT Family Medicine; ATTEND Family Medicine
DX: R11.2 Nausea with vomiting, unspecified (principal); N17.9 Acute kidney failure, unspecified; T42.6X5A Adverse effect of other antiepileptic and sedative-hypnotic drugs, initial encounter; E86.0 Dehydration; F12.90 Cannabis use, unspecified, uncomplicated; I10 Essential (primary) hypertension; I25.10 Atherosclerotic heart disease of native coronary artery without angina pectoris; I25.2 Old myocardial infarction; K21.9 Gastro-esophageal reflux disease without esophagitis; K58.2 Mixed irritable bowel syndrome; E03.9 Hypothyroidism, unspecified; E78.5 Hyperlipidemia, unspecified; Z79.82 Long term (current) use of aspirin; Z80.8 Family history of malignant neoplasm of other organs or systems; Z82.49 Family history of ischemic heart disease and other diseases of the circulatory system; Z83.3 Family history of diabetes mellitus; Z87.891 Personal history of nicotine dependence; Z95.5 Presence of coronary angioplasty implant and graft; Z79.84 Long term (current) use of oral hypoglycemic drugs; Z88.8 Allergy status to other drugs, medicaments and biological substances; F11.21 Opioid dependence, in remission; M51.36 Other intervertebral disc degeneration, lumbar region; G89.29 Other chronic pain; M19.90 Unspecified osteoarthritis, unspecified site; G62.9 Polyneuropathy, unspecified; Z98.1 Arthrodesis status; Z87.01 Personal history of pneumonia (recurrent); K44.9 Diaphragmatic hernia without obstruction or gangrene
CPT/HCPCS: 36415; 80048; 80053; 81001; 82150; 83690; 85025; 85027; 96361; 96374; 96375; 99284

== ENCOUNTER → 2017-08-11 | Outpatient (CLI) | payer MEDICARE ==
[2017-08-11 14:58] VITALS: BP 145/91; PULSE 88; RESP 18
--- NOTE | 2017-08-13 22:10 | P.PAINPG ---
Subjective Progress Note Date: 08/11/17 Principal diagnosis: Low back pain, lumbar facet syndrome, lumbar spondylosis this is very pleasant 62-year-old gentleman with a history of low back pain. He 's undergone previous diagnostic Medial branch nerve blocks and radiofrequency ablation in the past. these have been very helpful in relieving his low back pain. Currently, he complains of right-sided low back pain consistent with his previous patterns of facet mediated pain. He denies any lumbar radicular symptoms, he denies bowel or bladder dysfunction. He is interested in having a radiofrequency ablation to help with his pain. Objective - Vital Signs Vital signs: Vital Signs Temp Pulse 88 08/11/17 14:51 Resp 18 08/11/17 14:51 BP 145/91 08/11/17 14:51 Pulse Ox 97 08/11/17 14:51 - Exam General: he is alert and oriented. He appears in no acute distress. He is not sedated. Respiratory: clear to auscultation bilaterally cardiovascular: regular in rate and rhythm abdomen: nontender nondistended extremities: no clubbing cyanosis or edema muscle skeletal: straight leg raise is negative bilaterally. The settling maneuvers are positive in the lumbar spine on the right as well as the left but much more on the right. Neurologic: he demonstrates no focal motor or sensory deficits in the lower extremities. Assessment and Plan (1) Spondylosis of lumbar region without myelopathy or radiculopathy Narrative/Plan: We will schedule a patient for repeat of right lumbar medial branch radiofrequency ablation at L4, L5, sacral ala Current Visit: Yes Status: Acute Code(s): M47.816 - SPONDYLOSIS W/O MYELOPATHY OR RADICULOPATHY, LUMBAR REGION SNOMED Code(s): 17508894 PQRS Measure Charge Sheet Measure #226: Tobacco Use: Screen & Cessation Intervention: Pt not a tobacco user Measure #111: Pneumonia Vaccination: Pneumococcal vaccine NOT administered or previously given Measure #47: Advance Care Plan: Advance care planning discussed & documented, pt chose/unable to give Measure #412: Opioid Treatment Agreement: No documentation of signed opioid treatment agreement Measure #408: Opioid Therapy Follow-up Evaluation: Patient had NO f/u eval minimum every 3 months during opioid therapy Measure #317: Preventitive Care & Scrn High Bld Press & F/U: Normal blood pressure, f/u not required Measure #128: Body Mass Index (BMI) Screening & Follow-up: BMI documented within normal parameters Measure #131: Pain Assessment & Follow-up: Pain positive & plan documented Measure #431: Unhealthy Alcohol Use Preventative Care & Scrn: Patient not identified as an unhealthy alcohol user PQRS Narrative: Smoking Status Former smoker Do You Want the Pneumonia No Vaccine AT THIS TIME? Narcotic Agreement Date Signed 12/25/14 Blood Pressure 145/91 Pain Intensity [Lower Back] 5 Scale Used Numeric (1 - 10) Home Medications: Ambulatory Orders cloNIDine HCL [Clonidine HCl] 0.1 mg PO TID 11/16/15 Levothyroxine Sodium [Synthroid] 75 mcg PO DAILY 05/04/16 Omeprazole 20 mg PO DAILY 05/04/16 Dicyclomine [Bentyl] 20 mg PO AC-TID PRN 05/31/16 Aspirin [Adult Low Dose Aspirin EC] 81 mg PO DAILY 06/24/16 Nitroglycerin Sl Tabs [Nitrostat] 0.4 mg SUBLINGUAL Q5M PRN 07/19/16 Cholecalciferol [Vitamin D3] 2,000 unit PO DAILY 09/23/16 Escitalopram [Lexapro] 30 mg PO DAILY 12/16/16 Ferrous Sulfate [Iron (65 MG Elemental)] 325 mg PO DAILY 03/01/17 LORazepam [Ativan] 1 mg PO HS PRN 04/05/17 Acetaminophen Tab [Tylenol] 500 mg PO Q6HR PRN tab 07/29/17 Controlled Substance Measures - Controlled Substance Measures Is patient prescribed a controlled substance at discharge?: No
== END | disposition home or self-care (01) ==
LOC: PNWHC3 13:55
PROVIDERS: ATTEND Pain Medicine Pain Medicine
DX: M47.816 Spondylosis without myelopathy or radiculopathy, lumbar region (principal); Z87.891 Personal history of nicotine dependence; Z79.891 Long term (current) use of opiate analgesic; Z79.82 Long term (current) use of aspirin; Z79.899 Other long term (current) drug therapy
CPT/HCPCS: 99211

== ENCOUNTER 2017-08-30 07:11 | Day surgery (SDC) | payer MEDICARE ==
[2017-08-24 10:23] VITALS: BMI 30.2
[2017-08-30] MEDS ORDERED: LIDOCAINE 1% 20 ML VIAL (10MG/ML) FOR IV START INTRADERMA ONE (08:23)
[2017-08-30 08:27] VITALS: RESP 16; TEMP 97.5
--- NOTE | 2017-08-30 09:23 | P.PCN ---
Date of Procedure: 08/30/17 Surgeon: Yuko Jolley Pathology: none sent Condition: stable Disposition: PACU Description of Procedure: PREOPERATIVE DIAGNOSIS: Lumbar spondylosis without myelopathy, morbid obesity POSTOPERATIVE DIAGNOSIS: Lumbar spondylosis without myelopathy,morbid obesity PROCEDURES : Right Radiofrequency thermocoagulation L2-3,L3-4, and L5-S1 medial branch, with fluoroscopic guidance ANESTHESIA: IV moderate conscious sedation with versed and fentanyl and local infiltration with lidocaine 1% 5 ml EBL: Minimal PROCEDURE INDICATION: The patient with low back pain secondary to lumbar facet arthropathy who had more than 50% relief of her pain with previous diagnostic lumbar medial branch block with bupivacaine. PROCEDURE DESCRIPTION / TECHNIQUE: The patient was seen and identified in the preoperative area. Risks, benefits, complications, including but not limited to risk of infection ,bleeding , allergic reactions to the medications and no complete pain relief , and alternatives were discussed with the patient, the patient agreed to proceed with the procedure and signed the consent. IV was started. Vital signs remained stable throughout the procedure. Patient was taken to the OR and time out was completed. The patient was placed in the prone position on the procedure table. The lumber area was prepped and draped in the usual sterile fashion. . Vital signs were closely monitored during the procedure .IV sedation was used during the procedure to decrease patients anxiety. The patient had lumbar fusion between L4 and L5 and S1 and the RFA was done at the L5-S1 level and at the 2 levels above his fusion as mentioned above. The target points were identified as follows: For the L5-S1 level which corresponds to the dorsal ramus of L5 the target point was at the superior medial aspect of the sacral ala on the Rt side of the spine on the AP view of fluoroscopy and for the L2, L3, and L4 medial branches the target points were at the connection between the transverse process and the superior articular process of L2, and L3, vertebra respectively on the Rtoblique view of fluoroscopy. skin was marked, and localized with 1% lidocaineat these points. Subsequently, an 18 [id number] radiofrequency needles with a 10-mm curved active tips were advanced guided by fluoroscopy to each of the target points mentioned above in a superior medial direction to get the active tips as parallel as possible to the medial branches tracks. AP, oblique, and lateral views of fluoroscopy were used to verify needle tips position. Each level then underwent motor testing at 2.5 Hz and 0 to 3 volt with local stimulation, but no radicular symptoms down the legs. Thereafter radiofrequency thermocoagulation at 80 degrees celsius for 90 seconds after injecting 1 ml of PF lidocaine 1%. After the thermocoagulation was done I then injected 0.5 MLS of a solution made up of Ropivacaine 0.5%(3 mls) with 40 mg of Kenalog at each level. At the end of the procedure, the skin was cleansed and bandages were applied. COMPLICATIONS: No acute complications. DISPOSITION / PLANS: The patient was placed in a supine position and transferred to the recovery area in a stable condition for observation and was discharged from the recovery room after meeting discharge criteria. Home discharge instructions given to the patient by the staff. The patient was reexamined prior to discharge. The patient will schedule a follow up in the clinic in 2-4 weeks.
[2017-08-30] MEDS ORDERED: IV FLUID CONTINUATION 1,000 ML IV ONE ×2 (09:38)
--- NOTE | 2017-08-30 09:38 | FL ---
EXAMINATION TYPE: FL guided pain mgmt statistic DATE OF EXAM: 08/30/2017 HISTORY: Flouroscopy time 18 seconds of fluoroscopy provided. IMPRESSION: 1. Fluoroscopy time.
[2017-08-30 09:46] VITALS: BP 149/93; PULSE 65
== END 2017-08-30 09:55 | disposition home or self-care (01) ==
LOC: ORPAIN 07:11
PROVIDERS: ATTEND Anesthesiology
DX: M47.816 Spondylosis without myelopathy or radiculopathy, lumbar region (principal); E66.01 Morbid (severe) obesity due to excess calories; Z68.30 Body mass index [BMI] 30.0-30.9, adult; Z87.19 Personal history of other diseases of the digestive system; Z88.8 Allergy status to other drugs, medicaments and biological substances
CPT/HCPCS: 64635; 64636 ×2; J2250; J1030; J2001; J3010; 99152

== ENCOUNTER 2017-09-15 06:54 | Day surgery (SDC) | payer MEDICARE ==
[2017-09-09 09:00] VITALS: BMI 30.2
[2017-09-15 07:23] VITALS: RESP 16; TEMP 98.1
[2017-09-15] MEDS ORDERED: LIDOCAINE 1% 20 ML VIAL (10MG/ML) FOR IV START INTRADERMA ONE (07:38)
--- NOTE | 2017-09-15 08:35 | P.PCN ---
Date of Procedure: 09/15/17 Description of Procedure: Date of Procedure: 09/15/2017 Surgeon: Kade Boothe Condition: stable Disposition: PACU Description of Procedure: PREOPERATIVE DIAGNOSIS: Lumbar spondylosis without myelopathy, morbid obesity POSTOPERATIVE DIAGNOSIS: Lumbar spondylosis without myelopathy,morbid obesity PROCEDURES : Left Radiofrequency thermocoagulation L2-3,L3-4, and L5-S1 medial branch, with fluoroscopic guidance ANESTHESIA: IV moderate conscious sedation with versed 2 mg and fentanyl 100 mcq and local infiltration with lidocaine 1% 5 ml EBL: Minimal PROCEDURE INDICATION: The patient with low back pain secondary to lumbar facet arthropathy who had more than 50% relief of her pain with previous diagnostic lumbar medial branch block with bupivacaine. PROCEDURE DESCRIPTION / TECHNIQUE: The patient was seen and identified in the preoperative area. Risks, benefits, complications, including but not limited to risk of infection ,bleeding , allergic reactions to the medications and no complete pain relief , and alternatives were discussed with the patient, the patient agreed to proceed with the procedure and signed the consent. IV was started. Vital signs remained stable throughout the procedure. Patient was taken to the OR and time out was completed. The patient was placed in the prone position on the procedure table. The lumber area was prepped and draped in the usual sterile fashion. . Vital signs were closely monitored during the procedure .IV sedation was used during the procedure to decrease patients anxiety. The patient had lumbar fusion between L4 and L5 and S1 and the RFA was done at the L5-S1 level and at the 2 levels above his fusion as mentioned above. The target points were identified as follows: For the L5-S1 level which corresponds to the dorsal ramus of L5 the target point was at the superior medial aspect of the sacral ala on the left side of the spine on the AP view of fluoroscopy and for the L2, L3, and L4 medial branches the target points were at the connection between the transverse process and the superior articular process of L2, and L3, vertebra respectively on the oblique view of fluoroscopy. skin was marked, and localized with 1% lidocaine at these points. Subsequently, an 18 [id number] radiofrequency needles with a 10-mm curved active tips were advanced guided by fluoroscopy to each of the target points mentioned above in a superior medial direction to get the active tips as parallel as possible to the medial branches tracks. AP, oblique, and lateral views of fluoroscopy were used to verify needle tips position. Each level then underwent motor testing at 2.5 Hz and 0 to 3 volt with local stimulation, but no radicular symptoms down the legs. Thereafter radiofrequency thermocoagulation at 80 degrees celsius for 90 seconds after injecting 1 ml of PF lidocaine 1%. After the thermocoagulation was done I then injected 0.5 MLS of a solution made up of Ropivacaine 0.5%(3 mls) with 40 mg of Kenalog at each level. At the end of the procedure, the skin was cleansed and bandages were applied. COMPLICATIONS: No acute complications. DISPOSITION / PLANS: The patient was placed in a supine position and transferred to the recovery area in a stable condition for observation and was discharged from the recovery room after meeting discharge criteria. Home discharge instructions given to the patient by the staff. The patient was reexamined prior to discharge. The patient will schedule a follow up in the clinic in 2-4 weeks.
[2017-09-15] MEDS ORDERED: IV FLUID CONTINUATION 1,000 ML IV ONE ×2 (08:39)
[2017-09-15 08:46] VITALS: BP 133/68; PULSE 61
--- NOTE | 2017-09-15 09:55 | FL ---
Fluoroscopy HISTORY: Pain 42 seconds fluoroscopy time supplied to the referring clinician. 3 intraoperative C-arm images docum ent the procedure. See dictated report from anesthesia.
== END 2017-09-15 09:02 | disposition home or self-care (01) ==
LOC: ORPAIN 06:54
PROVIDERS: ATTEND Anesthesiology
DX: M47.816 Spondylosis without myelopathy or radiculopathy, lumbar region (principal); E66.01 Morbid (severe) obesity due to excess calories; Z68.30 Body mass index [BMI] 30.0-30.9, adult; Z88.8 Allergy status to other drugs, medicaments and biological substances; Z98.1 Arthrodesis status
CPT/HCPCS: 64635; 64636 ×2; J2250; J3301; J2001; J3010; 99152

== ENCOUNTER → 2017-10-05 | Outpatient (CLI) | payer MEDICARE ==
[2017-10-05 12:05] VITALS: BP 145/100; PULSE 90; RESP 16
--- NOTE | 2017-10-05 12:32 | P.PAINPG ---
Subjective Progress Note Date: 10/05/17 This 62 years old male with a chronic history of severe low back pain patient diagnosed with lumbar spondylosis, with done diagnostic medial branch block which was positive later on was followed with the radiofrequency ablation of the medial branch lumbar area, he reported that his pain improved significantly , he denies any motor or sensory deficit he is able to do activities of daily livings, he had no fever or night sweats he has no change in the bowel movement or urination Objective - Vital Signs Vital signs: Vital Signs Temp Pulse 90 10/05/17 11:59 Resp 16 10/05/17 11:59 BP 145/100 10/05/17 11:59 Pulse Ox 96 10/05/17 11:59 Intake & Output 10/04/17 10/05/17 10/05/17 18:59 06:59 18:59 Weight 98.883 kg - Exam Physical Examinations : 1-Constitutiona : Cooperative , not in acute distress . Lymphadenopathy . 2- musculoskeltal : Lumber spine moter stegnth lower extremities ,thigh and legs 5/5 Right side , 5/5 Left side Assessment and Plan Plan: Assessment and plan= chronic low back pain secondary to , lumbar spondylosis with lumbar facet arthropathy Patient doing very well after the radiofrequency ablation of the medial branch lumbar area, he will follow up with the pain clinic when necessary. Time with Patient: Less than 30 PQRS Measure Charge Sheet Measure #130: Documentation of Current Meds in Medical Chart: Patient's medications documented in chart Measure #226: Tobacco Use: Screen & Cessation Intervention: Pt not a tobacco user Measure #111: Pneumonia Vaccination: Pneumococcal vaccine NOT administered or previously given Measure #47: Advance Care Plan: Advance care planning discussed & documented, pt chose/unable to give Measure #412: Opioid Treatment Agreement: No documentation of signed opioid treatment agreement Measure #408: Opioid Therapy Follow-up Evaluation: Patient had NO f/u eval minimum every 3 months during opioid therapy Measure #317: Preventitive Care & Scrn High Bld Press & F/U: Pre-hypertensive or hypertensive BP documented, pt will f/u with PCP Measure #128: Body Mass Index (BMI) Screening & Follow-up: BMI documented ABOVE normal parameters - f/u documented Measure #131: Pain Assessment & Follow-up: Pain positive & plan documented, Pain negative & plan not documented Measure #431: Unhealthy Alcohol Use Preventative Care & Scrn: Patient not identified as an unhealthy alcohol user PQRS Narrative: Smoking Status Former smoker Do You Want the Pneumonia No Vaccine AT THIS TIME? Narcotic Agreement Date Signed 12/25/14 Blood Pressure 145/100 Pain Intensity [Bilateral 4 Lower Back] Scale Used Numeric (1 - 10) Home Medications: Ambulatory Orders cloNIDine HCL [Clonidine HCl] 0.1 mg PO BID 11/16/15 Levothyroxine Sodium [Synthroid] 75 mcg PO DAILY 05/04/16 Omeprazole 20 mg PO DAILY 05/04/16 Aspirin [Adult Low Dose Aspirin EC] 81 mg PO DAILY 06/24/16 Nitroglycerin Sl Tabs [Nitrostat] 0.4 mg SUBLINGUAL Q5M PRN 07/19/16 Cholecalciferol [Vitamin D3] 2,000 unit PO DAILY 09/23/16 Escitalopram [Lexapro] 30 mg PO DAILY 12/16/16 Ferrous Sulfate [Iron (65 MG Elemental)] 325 mg PO DAILY 03/01/17 LORazepam [Ativan] 1 mg PO HS PRN 04/05/17 Acetaminophen Tab [Tylenol] 500 mg PO Q6HR PRN tab 07/29/17 Controlled Substance Measures - Controlled Substance Measures Is patient prescribed a controlled substance at discharge?: No When asked, does pt state using other controlled substances?: No If prescribed controlled substance>3 days was MAPS reviewed?: No If Rx opioid, was Start Talking consent form obtained?: No If opioid is for acute pain is fill amount 7 days or less?: No Was information provided regarding opioid addiction?: No
== END | disposition home or self-care (01) ==
LOC: PNWHC3 11:38
PROVIDERS: ATTEND Specialist
DX: G89.29 Other chronic pain (principal); M54.5 Low back pain; M47.816 Spondylosis without myelopathy or radiculopathy, lumbar region; M46.86 Other specified inflammatory spondylopathies, lumbar region; Z87.891 Personal history of nicotine dependence
CPT/HCPCS: 99211

== ENCOUNTER 2017-11-03 15:21 | Inpatient (IN) | payer MEDICARE ==
[2017-11-03] MEDS ORDERED: ONDANSETRON 4 MG/2 ML VIAL IVP STA (15:41)
[2017-11-03] MEDS ORDERED: SODIUM CHLORIDE 0.9% 1,000 ML IV ONE ×2 (15:41→18:31)
[2017-11-03] MEDS ORDERED: DIAZEPAM 5 MG/ML 2 ML INJ IVP STA (15:42)
--- NOTE | 2017-11-03 15:45 | ED ---
General Adult HPI - General Chief complaint: Nausea/Vomiting/Diarrhea Stated complaint: dehydration Time Seen by Provider: 11/03/17 15:25 Source: patient, RN notes reviewed Mode of arrival: wheelchair Limitations: no limitations - History of Present Illness Initial comments: This is a 62-year-old male who presents emergency Department complaining of vomiting since yesterday morning. Patient states he used to be addicted to opiates and so he got himself off full feeds by smoking quite a bit of marijuana. Patient states that the marijuana makes him have a lot of vomiting so he is decreased the amount of marijuana that he does but he has taken up alcohol on occasion to help with the pain. Patient states she drank about a sixpack 2 nights ago woke up very nauseated and vomiting. Patient denies any abdominal pain. Patient states he has a little bit of diarrhea. Patient denies any chest pain palpitations difficulty breathing or shortness of breath. Patient states she does continue to smoke marijuana but not as much as he used to. - Related Data Home Medications Medication Instructions Recorded Confirmed cloNIDine HCL [Clonidine HCl] 0.1 mg PO BID 11/16/15 11/03/17 Levothyroxine Sodium [Synthroid] 75 mcg PO DAILY 05/04/16 11/03/17 Omeprazole 20 mg PO DAILY 05/04/16 11/03/17 Nitroglycerin Sl Tabs [Nitrostat] 0.4 mg SUBLINGUAL Q5M PRN 07/19/16 11/03/17 Escitalopram [Lexapro] 30 mg PO DAILY 12/16/16 11/03/17 LORazepam [Ativan] 1 mg PO HS PRN 11/03/17 11/03/17 Losartan [Cozaar] 25 mg PO DAILY 11/03/17 11/03/17 Allergies Allergy/AdvReac Type Severity Reaction Status Date / Time Beta-Blockers Allergy Rash/Hives Verified 11/03/17 15:44 (Beta-Adrenergic Bloc paroxetine HCl [From Paxil] AdvReac Unknown Abdominal Verified 11/03/17 15:44 Pain gabapentin AdvReac Abdominal Verified 11/03/17 15:44 Pain Review of Systems ROS Statement: Those systems with pertinent positive or pertinent negative responses have been documented in the HPI. ROS Other: All systems not noted in ROS Statement are negative. Past Medical History Past Medical History: Coronary Artery Disease (CAD), Chest Pain / Angina, GERD/ Reflux, Hyperlipidemia, Hypertension, Myocardial Infarction ([place]), Musculoskeletal Disorder, Osteoarthritis (OA), Renal Disease, Syncope, Thyroid Disorder Additional Past Medical History / Comment(s): Chronic low back pain DIVERTICULITIS, IBS, renal insufficiency with dehydration. Hx bronchitis & pneumonia, migraines, SMALL HIATAL HERNIA.lumbar ddd(pain clinic procedures) Last Myocardial Infarction Date:: 2013 History of Any Multi-Drug Resistant Organisms: None Reported Past Surgical History: Back Surgery, Cholecystectomy, Heart Catheterization With Stent, Hernia Repair, Orthopedic Surgery Additional Past Surgical History / Comment(s): COLONOSCOPY, EGD, ORIF LT ANKLE, L ANKLE SX, BACK SURGERIES fusion L3-L5, LT HAND SURGERY D/T FRACTURE, RT KNEE ARTHROSCOPIC X 2, RT ELBOW TENDON RELEASE SURG, LUMBAR SPINE CYST REMOVAL, HIATAL HERNIA REPAIR, right shoulder arthroscopy, back injections. PAIN CLINIC Past Anesthesia/Blood Transfusion Reactions: No Reported Reaction Date of Last Stent Placement:: 2013 Past Psychological History: Depression Smoking Status: Former smoker Past Alcohol Use History: Rare Past Drug Use History: Marijuana - Past Family History Mother Family Medical History: Thyroid Disorder Additional Family Medical History / Comment(s): Mother is living. Father Family Medical History: Coronary Artery Disease (CAD), Diabetes Mellitus Additional Family Medical History / Comment(s): triple bypass Sister(s) Family Medical History: Cancer, Thyroid Disorder Additional Family Medical History / Comment(s): SKIN CA/ #2 sister had thyroid cancer General Exam - General Exam Comments Initial Comments: GENERAL: Patient is well-developed and well-nourished. Patient is nontoxic and well- hydrated and is in mild distress. ENT: Neck is soft and supple. No significant lymphadenopathy is noted. Oropharynx is clear. Moist mucous membranes. Neck has full range of motion without eliciting any pain. EYES: The sclera were anicteric and conjunctiva were pink and moist. Extraocular movements were intact and pupils were equal round and reactive to light. Eyelids were unremarkable. PULMONARY: Unlabored respirations. Good breath sounds bilaterally. No audible rales rhonchi or wheezing was noted. CARDIOVASCULAR: There is a regular rate and rhythm without any murmurs gallops or rubs. ABDOMEN: Soft and nontender with normal bowel sounds. No palpable organomegaly was noted. There is no palpable pulsatile mass. SKIN: Skin is clear with no lesions or rashes and otherwise unremarkable. NEUROLOGIC: Patient is alert and oriented x3. Cranial nerves II through XII are grossly intact. Motor and sensory are also intact. Normal speech, volume and content. Symmetrical smile. MUSCULOSKELETAL: Normal extremities with adequate strength and full range of motion. LYMPHATICS: No significant lymphadenopathy is noted PSYCHIATRIC: Normal psychiatric evaluation. Limitations: no limitations Course Vital Signs 11/03/17 11/03/17 15:27 17:37 Temperature 97.6 F Pulse Rate 104 H 96 Respiratory 20 16 Rate Blood Pressure 151/98 147/89 O2 Sat by Pulse 96 99 Oximetry Medical Decision Making - Medical Decision Making Patient's creatinine was elevated at 5.6. I spoke with Dr. Nava he agreed to admit the patient admitted the patient I consult nephrology. - Lab Data Result diagrams: 11/03/17 15:51 11/03/17 15:51 Lab Results 11/03/17 11/03/17 11/03/17 Range/Units 15:51 15:51 17:30 WBC 18.1 H (3.8-10.6) k/uL RBC 5.95 H (4.30-5.90) m/uL Hgb 18.4 H (13.0-17.5) gm/dL Hct 52.4 (39.0-53.0) % MCV 88.0 (80.0-100.0) fL MCH 30.8 (25.0-35.0) pg MCHC 35.0 (31.0-37.0) g/dL RDW 12.8 (11.5-15.5) % Plt Count 255 (150-450) k/uL Neutrophils % 83 % Lymphocytes % 9 % Monocytes % 7 % Eosinophils % 0 % Basophils % 0 % Neutrophils # 15.1 H (1.3-7.7) k/uL Lymphocytes # 1.6 (1.0-4.8) k/uL Monocytes # 1.2 H (0-1.0) k/uL Eosinophils # 0.1 (0-0.7) k/uL Basophils # 0.0 (0-0.2) k/uL Sodium 138 (137-145) mmol/L Potassium 4.0 (3.5-5.1) mmol/L Chloride 97 L (98-107) mmol/L Carbon Dioxide 17 L (22-30) mmol/L Anion Gap 24 mmol/L BUN 37 H (9-20) mg/dL Creatinine 5.65 H (0.66-1.25) mg/dL Est GFR (CKD-EPI)AfAm 11 (>60 ml/min/1.73 sqM) Est GFR (CKD-EPI)NonAf 10 (>60 ml/min/1.73 sqM) Glucose 148 H (74-99) mg/dL Calcium 11.3 H (8.4-10.2) mg/dL Total Bilirubin 1.1 (0.2-1.3) mg/dL AST 32 (17-59) U/L ALT 22 (21-72) U/L Alkaline Phosphatase 93 (38-126) U/L Total Protein 9.5 H (6.3-8.2) g/dL Albumin 5.7 H (3.5-5.0) g/dL Urine Color Yellow Urine Appearance Cloudy (Clear) Urine pH 5.5 (5.0-8.0) Ur Specific [place] 1.016 (1.001-1.035) Urine Protein 2+ H (Negative) Urine Glucose (UA) Trace H (Negative) Urine Ketones Negative (Negative) Urine Blood Moderate H (Negative) Urine Nitrite Negative (Negative) Urine Bilirubin 1+ H (Negative) Urine Urobilinogen 2.0 (<2.0) mg/dL Ur Leukocyte Esterase Small H (Negative) Urine RBC 4 (0-5) /hpf Urine WBC 11 H (0-5) /hpf Ur Squamous Epith Cells 1 (0-4) /hpf Amorphous Sediment Rare H (None) /hpf Hyaline Casts 28 H (0-2) /lpf Urine Mucus Rare H (None) /hpf Serum Alcohol <10 mg/dL Disposition Clinical Impression: Acute renal failure, Acute vomiting Disposition: ADMITTED IP TO THIS HOSP Referrals: Miki Nava DO [Primary Care Provider] - 1-2 days Time of Disposition: 18:30
[2017-11-03 16:28] LABS: ALT 22 U/L (21-72); AST 32 U/L (17-59); Albumin 5.7 g/dL (3.5-5.0); Alcohol <10 mg/dL; Alkaline Phosphatase 93 U/L (38-126); Anion Gap 24 mmol/L; Basophils % (A) 0 %; Blood Urea Nitrogen 37 mg/dL (9-20); Calcium 11.3 mg/dL (8.4-10.2); Carbon Dioxide 17 mmol/L (22-30); Chloride 97 mmol/L (98-107); Eosinophils # (A) 0.1 k/uL (0-0.7); Eosinophils % (A) 0 %; Glucose 148 mg/dL (74-99); HCT 52.4 % (39.0-53.0); HGB 18.4 gm/dL (13.0-17.5); Lymphocytes # (A) 1.6 k/uL (1.0-4.8); Lymphocytes % (A) 9 %; MCH 30.8 pg (25.0-35.0); Mean Platelet Volume 7.7; Monocytes # (A) 1.2 k/uL (0-1.0); Monocytes % (A) 7 %; Neutrophils # (A) 15.1 k/uL (1.3-7.7); Neutrophils % (A) 83 %; Platelet Count 255 k/uL (150-450); RBC 5.95 m/uL (4.30-5.90); RDW 12.8 % (11.5-15.5); Sodium 138 mmol/L (137-145); Total Bilirubin 1.1 mg/dL (0.2-1.3); Total Protein 9.5 g/dL (6.3-8.2); WBC 18.1 k/uL (3.8-10.6)
[2017-11-03] MEDS ORDERED: KETOROLAC 60 MG/2 ML VIAL IVP STA (17:02)
[2017-11-03] MEDS ORDERED: HYDROmorphone 1 MG/ML 1 ML SYRINGE IVP STA (18:00)
[2017-11-03 18:26] LABS: Amorphous Sediment,Urine Rare /hpf; Appearance,Urine Cloudy (Clear); Bilirubin,Urine 1+ (Negative); Blood,Urine Moderate (Negative); Color,Urine Yellow; Glucose,Urine (UA) Trace (Negative); Hyaline Casts,Urine 28 /lpf (0-2); Ketones,Urine Negative (Negative); Leukocyte Esterase,Urine Small (Negative); Mucus,Urine Rare /hpf; Nitrite,Urine Negative (Negative); PH, Urine 5.5 (5.0-8.0); Protein,Urine 2+ (Negative); RBC,Urine 4 /hpf (0-5); Specific Gravity,Urine 1.016 (1.001-1.035); Squamous Epithelial Cell,Urine 1 /hpf (0-4); WBC,Urine 11 /hpf (0-5)
[2017-11-03] MEDS ORDERED: ONDANSETRON 4 MG/2 ML VIAL IVP PRN (18:32)
[2017-11-03] MEDS ORDERED: SODIUM CHLORIDE 0.9% 1,000 ML IV STA (18:33)
[2017-11-03 19:55] VITALS: BMI 30.7
[2017-11-03] MEDS ORDERED: ACETAMINOPHEN IV (For NPO) 1,000 MG in EMPTY BAG 1 BAG IVPB PRN (20:21)
[2017-11-03] MEDS: LORazepam 1 MG TAB PO PRN (21:12)
[2017-11-03] MEDS: cloNIDine HCL 0.1 MG TAB PO SCH (21:13)
[2017-11-03] MEDS: LOSARTAN 25 MG TAB PO SCH (21:13)
[2017-11-04] MEDS: LEVOTHYROXINE 75 MCG TAB PO SCH (06:17)
[2017-11-04] MEDS: PANTOPRAZOLE 40 MG TABLET PO SCH (06:17)
[2017-11-04 06:45] LABS: MCH 31.2 pg (25.0-35.0); MCHC 34.1 g/dL (31.0-37.0); MCV 91.5 fL (80.0-100.0); Mean Platelet Volume 6.9; Platelet Count 166 k/uL (150-450); RBC 4.48 m/uL (4.30-5.90); RDW 13.4 % (11.5-15.5); WBC 11.8 k/uL (3.8-10.6)
[2017-11-04 06:53] LABS: Calcium 8.9 mg/dL (8.4-10.2); Potassium 3.7 mmol/L (3.5-5.1)
--- NOTE | 2017-11-04 08:15 | P.NPCON ---
History of Present Illness - Reason for Consult acute renal failure - History of Present Illness Reason for consultation: Acute kidney injury History of present illness: Patient is a 62-year-old male seen in consultation for acute kidney injury. Creatinine was 5.65 on admission and is down to 2.9 today. He is currently maintained on normal saline at 150 mL an hour. Patient also received 1 L of normal saline bolus on admission. Patient presented to the hospital with poor oral intake along with gagging and vomiting along with intermittent episodes of diarrhea. Overall he's feeling better today. He did eat dinner last night. No further vomiting or diarrhea. Denies chest pain or shortness of breath. Hemodynamically stable. Denies use of NSAIDs. However he did receive a dose of Toradol 30 mg yesterday. No history of diabetes. Denies family history of renal disease. Admits to good urine output. No hematuria or dysuria. Patient has been admitted with similar complaints and multiple episodes of acute kidney injury in the past which tends to improve with IV hydration. His baseline creatinine is near 1. Vital signs are stable. General: The patient appeared well nourished and normally developed. HEENT: Head exam is unremarkable. Neck is without jugular venous distension. LUNGS: Lungs are clear to auscultation and percussion. Breath sounds decreased. HEART: Rate and Rhythm are regular. First and second heart sounds normal. No murmurs, rubs or gallops. ABDOMEN: Abdominal exam reveals normal bowel sounds. Non-tender and non- distended. No evidence of peritonitis. EXTREMITITES: No clubbing, cyanosis, or edema. Past Medical History Past Medical History: Coronary Artery Disease (CAD), Chest Pain / Angina, GERD/ Reflux, Hyperlipidemia, Hypertension, Myocardial Infarction ([place]), Musculoskeletal Disorder, Osteoarthritis (OA), Renal Disease, Syncope, Thyroid Disorder Additional Past Medical History / Comment(s): Chronic low back pain DIVERTICULITIS, IBS, renal insufficiency with dehydration. Hx bronchitis & pneumonia, migraines, SMALL HIATAL HERNIA.lumbar ddd(pain clinic procedures) Last Myocardial Infarction Date:: 2013 History of Any Multi-Drug Resistant Organisms: None Reported Past Surgical History: Back Surgery, Cholecystectomy, Heart Catheterization With Stent, Hernia Repair, Orthopedic Surgery Additional Past Surgical History / Comment(s): COLONOSCOPY, EGD, ORIF LT ANKLE, L ANKLE SX, BACK SURGERIES fusion L3-L5, LT HAND SURGERY D/T FRACTURE, RT KNEE ARTHROSCOPIC X 2, RT ELBOW TENDON RELEASE SURG, LUMBAR SPINE CYST REMOVAL, HIATAL HERNIA REPAIR, right shoulder arthroscopy, back injections. PAIN CLINIC Past Anesthesia/Blood Transfusion Reactions: No Reported Reaction Date of Last Stent Placement:: 2013 Past Psychological History: Depression Additional Psychological History / Comment(s): pt resides with his spouse in a ranch style home that has 2 front steps. He uses a cane as needed. He drives.has 2 pet dogs(1 pit bull and 1 estonian comer) Smoking Status: Former smoker Past Alcohol Use History: Rare Additional Past Alcohol Use History / Comment(s): Smoked from 1971 to 1983 SMOKED 1PPD Past Drug Use History: Marijuana Additional Drug Use History / Comment(s): was smoking MEDICAL marijuana - OCCASIONAL USE Pt states he used opiates in the past- does not take since 2014 -INSTRUCTED TO REFRAIN FROM USE FOR AT LEAST 24 HOURS PRIOR TO PROCEDURE - Past Family History Mother Family Medical History: Thyroid Disorder Additional Family Medical History / Comment(s): Mother is living. Father Family Medical History: Coronary Artery Disease (CAD), Diabetes Mellitus Additional Family Medical History / Comment(s): triple bypass Sister(s) Family Medical History: Cancer, Thyroid Disorder Additional Family Medical History / Comment(s): SKIN CA/ #2 sister had thyroid cancer Medications and Allergies Home Medications Medication Instructions Recorded Confirmed Type cloNIDine HCL [Clonidine HCl] 0.1 mg PO BID 11/16/15 11/03/17 History Levothyroxine Sodium [Synthroid] 75 mcg PO DAILY 05/04/16 11/03/17 History Omeprazole 20 mg PO DAILY 05/04/16 11/03/17 History Nitroglycerin Sl Tabs [Nitrostat] 0.4 mg SUBLINGUAL Q5M PRN 07/19/16 11/03/17 History Escitalopram [Lexapro] 30 mg PO DAILY 12/16/16 11/03/17 History LORazepam [Ativan] 1 mg PO HS PRN 11/03/17 11/03/17 History Losartan [Cozaar] 25 mg PO DAILY 11/03/17 11/03/17 History Allergies Allergy/AdvReac Type Severity Reaction Status Date / Time Beta-Blockers Allergy Rash/Hives Verified 11/03/17 15:44 (Beta-Adrenergic Bloc paroxetine HCl [From Paxil] AdvReac Unknown Abdominal Verified 11/03/17 15:44 Pain gabapentin AdvReac Abdominal Verified 11/03/17 15:44 Pain Physical Exam Vitals: Vital Signs Temp Pulse Pulse Resp BP BP Pulse Ox 11/04/17 07:59 99.1 F 76 16 112/55 11/04/17 04:00 80 16 113/55 94 L 11/04/17 00:00 97.1 F L 87 16 126/67 94 L 11/03/17 20:00 16 11/03/17 18:54 98.1 F 85 16 174/99 94 L 11/03/17 18:41 99 18 145/106 95 11/03/17 17:37 96 16 147/89 99 11/03/17 15:27 97.6 F 104 H 20 151/98 96 Intake and Output 11/03/17 11/04/17 11/04/17 22:59 06:59 14:59 Intake Total 1000 1200 Output Total 450 200 Balance 1000 750 -200 Intake: IV 1000 1200 Sodium Chloride 0.9% 1, 1200 000 ml @ 150 mls/hr IV . Q6H40M STA Rx#:[id number] Sodium Chloride 0.9% 1, 1000 000 ml @ 999 mls/hr IV . Q1H1M ONE Rx#:[id number] Output: Urine 450 200 Other: # Voids 1 Weight 95.7 kg 97.4 kg Results - Lab Results Most recent lab results Calcium 8.9 mg/dL (8.4-10.2) 11/04/17 06:13 11/04/17 06:13 11/04/17 06:13 Assessment and Plan Plan: Assessment: 1. Nonoliguric acute kidney injury mostly prerenal secondary to intravascular volume depletion from vomiting and diarrhea. Improved with IV hydration. Rettman was 5.65 on admission and is down to 2.9 today. Baseline creatinine is 1. 2. Hypercalcemia secondary to volume contraction. Improved with IV hydration. 3. Metabolic acidosis secondary to acute kidney injury. Improved. 4. Nausea and vomiting. Possible viral gastroenteritis. Improved. 5. Benign hypertension. Controlled. Plan: I will decrease rate of normal saline to 100 mL an hour. Encourage oral intake. Hold Cozaar if systolic blood pressure less than 120. Repeat electrolytes in the morning. Avoid nephrotoxins. Thank you for the consultation. I will continue to follow the patient with you during his hospital stay.
[2017-11-04] MEDS: LOSARTAN 25 MG TAB PO SCH (08:33)
[2017-11-04] MEDS: SODIUM CHLORIDE 0.9% 1,000 ML IV SCH ×2 (08:39→17:40)
[2017-11-04] MEDS: cloNIDine HCL 0.1 MG TAB PO SCH ×2 (08:40→21:39)
[2017-11-04] MEDS: ESCITALOPRAM 10 MG TAB PO SCH (08:40)
--- NOTE | 2017-11-04 11:01 | P.HPIM ---
History of Present Illness H&P Date: 11/04/17 Chief Complaint: Nausea, vomiting 62-year-old male who presented to the emergency room with a chief complaint of nausea and vomiting. The patient states on Tuesday he had approximately 6-8 beers and the following morning started feeling unwell. He reports that he was having dry heaves. He reports decreased PO intake. His symptoms did not improve so he came to the emergency room for further evaluation. The patient has been admitted multiple times due to nausea, vomiting, and acute renal failure. During his hospitalizations, the patient has found to be in acute renal failure. He is hydrated with IV fluids and his kidney function normalizes and his symptoms subside. The patient also has a history of irritable bowel syndrome and persistent GI symptoms of nausea, vomiting, and diarrhea lasting for the past 5 years. He underwent GI workup in 2016 including EGD in May 2016 which showed mild antral gastritis, small hiatal hernia, and no evidence of peptic ulcer disease. The patient's GI symptoms seem to coincide with his daily cannabis use. The patient has been encouraged multiple times to discontinue marijuana use. The patient states he has decreased the amount of marijuana use but continues to use it regularly. The patient has a history of coronary artery disease, gastroesophageal reflux disease, hypertension, hyperlipidemia, and history of opioid abuse. Patient has a history of multiple heart attacks and the patient states he has had "over 10 heart attacks". He states he had a stent placement in 2007 and 2013. Most recent echocardiogram is from October 2016 which reveals an ejection fraction of 55-60%. Laboratory data on admission reveals white count 18.1. Hemoglobin 18.4. Platelet count 255. Sodium 138. Potassium 4.0. BUN 37. Creatinine 5.67. The patient was admitted to the hospital under the care of Dr. Nvaa. Consultations were placed to nephrology. Review of Systems Those systems with pertinent positive or pertinent negative responses have been documented in the HPI Past Medical History Past Medical History: Coronary Artery Disease (CAD), Chest Pain / Angina, GERD/ Reflux, Hyperlipidemia, Hypertension, Myocardial Infarction (CA), Musculoskeletal Disorder, Osteoarthritis (OA), Renal Disease, Syncope, Thyroid Disorder Additional Past Medical History / Comment(s): Chronic low back pain DIVERTICULITIS, IBS, renal insufficiency with dehydration. Hx bronchitis & pneumonia, migraines, SMALL HIATAL HERNIA.lumbar ddd(pain clinic procedures) Last Myocardial Infarction Date:: 2013 History of Any Multi-Drug Resistant Organisms: None Reported Past Surgical History: Back Surgery, Cholecystectomy, Heart Catheterization With Stent, Hernia Repair, Orthopedic Surgery Additional Past Surgical History / Comment(s): COLONOSCOPY, EGD, ORIF LT ANKLE, L ANKLE SX, BACK SURGERIES fusion L3-L5, LT HAND SURGERY D/T FRACTURE, RT KNEE ARTHROSCOPIC X 2, RT ELBOW TENDON RELEASE SURG, LUMBAR SPINE CYST REMOVAL, HIATAL HERNIA REPAIR, right shoulder arthroscopy, back injections. PAIN CLINIC Past Anesthesia/Blood Transfusion Reactions: No Reported Reaction Date of Last Stent Placement:: 2013 Past Psychological History: Depression Additional Psychological History / Comment(s): pt resides with his spouse in a ranch style home that has 2 front steps. He uses a cane as needed. He drives.has 2 pet dogs(1 pit bull and 1 occitan comer) Smoking Status: Former smoker Past Alcohol Use History: Rare Additional Past Alcohol Use History / Comment(s): Smoked from 1971 to 1983 SMOKED 1PPD Past Drug Use History: Marijuana Additional Drug Use History / Comment(s): was smoking MEDICAL marijuana - OCCASIONAL USE Pt states he used opiates in the past- does not take since 2014 -INSTRUCTED TO REFRAIN FROM USE FOR AT LEAST 24 HOURS PRIOR TO PROCEDURE - Past Family History Mother Family Medical History: Thyroid Disorder Additional Family Medical History / Comment(s): Mother is living. Father Family Medical History: Coronary Artery Disease (CAD), Diabetes Mellitus Additional Family Medical History / Comment(s): triple bypass Sister(s) Family Medical History: Cancer, Thyroid Disorder Additional Family Medical History / Comment(s): SKIN CA/ #2 sister had thyroid cancer Medications and Allergies Home Medications Medication Instructions Recorded Confirmed Type cloNIDine HCL [Clonidine HCl] 0.1 mg PO BID 11/16/15 11/03/17 History Levothyroxine Sodium [Synthroid] 75 mcg PO DAILY 05/04/16 11/03/17 History Omeprazole 20 mg PO DAILY 05/04/16 11/03/17 History Nitroglycerin Sl Tabs [Nitrostat] 0.4 mg SUBLINGUAL Q5M PRN 07/19/16 11/03/17 History Escitalopram [Lexapro] 30 mg PO DAILY 12/16/16 11/03/17 History LORazepam [Ativan] 1 mg PO HS PRN 11/03/17 11/03/17 History Losartan [Cozaar] 25 mg PO DAILY 11/03/17 11/03/17 History Allergies Allergy/AdvReac Type Severity Reaction Status Date / Time Beta-Blockers Allergy Rash/Hives Verified 11/03/17 15:44 (Beta-Adrenergic Bloc paroxetine HCl [From Paxil] AdvReac Unknown Abdominal Verified 11/03/17 15:44 Pain gabapentin AdvReac Abdominal Verified 11/03/17 15:44 Pain Physical Exam Vitals: Vital Signs Temp Pulse Pulse Resp BP BP Pulse Ox 11/04/17 07:59 99.1 F 76 16 112/55 11/04/17 04:00 80 16 113/55 94 L 11/04/17 00:00 97.1 F L 87 16 126/67 94 L 11/03/17 20:00 16 11/03/17 18:54 98.1 F 85 16 174/99 94 L 11/03/17 18:41 99 18 145/106 95 11/03/17 17:37 96 16 147/89 99 11/03/17 15:27 97.6 F 104 H 20 151/98 96 Intake and Output 11/03/17 11/04/17 11/04/17 22:59 06:59 14:59 Intake Total 1000 1200 260 Output Total 450 200 Balance 1000 750 60 Intake: IV 1000 1200 Sodium Chloride 0.9% 1, 1200 000 ml @ 150 mls/hr IV . Q6H40M STA Rx#:[id number] Sodium Chloride 0.9% 1, 1000 000 ml @ 999 mls/hr IV . Q1H1M ONE Rx#:[id number] Oral 260 Output: Urine 450 200 Other: # Voids 1 Weight 95.7 kg 97.4 kg GENERAL: This is a 62-year-old male in no apparent distress at the time of examination. Pleasant and cooperative. HEENT: Head is atraumatic, normocephalic. Pupils are equal, round, and reactive to light. Sclerae anicteric. Conjunctivae are clear. Mucus membranes of the mouth are moist. Neck is supple. RESPIRATORY: Clear to ausculation. No wheezes, rales, or rhonchi. No use of accessory muscles. Patient maintaining oxygen saturation greater than 92%. No chest wall tenderness is noted on palpation or with deep breathing. CARDIOVASCULAR: Regular rate and rhythm. S1 and S2 noted. No systolic or diastolic murmur auscultated. No JVD noted. No S3 or S4 noted. GASTROINTESTINAL: No distention noted. Abdomen soft and round. Normal active bowel sounds auscultated x 4 quadrants. No pain or tenderness noted upon palpation. INTEGUMENTARY: No cyanosis. No jaundice. No rashes noted. No cellulitis noted. EXTREMITIES: 2+ peripheral pulses. No evidence of peripheral edema. No calf tenderness noted. NEUROLOGIC: Cranial nerves II-XII intact. PSYCHIATRIC: Awake, alert, and oriented X 3. Appropriate affect. Intact judgement and insight. Results CBC & Chem 7: 11/04/17 06:13 11/04/17 06:13 Labs: Abnormal Lab Results - Last 24 Hours (Table) 11/03/17 11/03/17 11/03/17 Range/Units 15:51 15:51 17:30 WBC 18.1 H (3.8-10.6) k/uL RBC 5.95 H (4.30-5.90) m/uL Hgb 18.4 H (13.0-17.5) gm/dL Neutrophils # 15.1 H (1.3-7.7) k/uL Monocytes # 1.2 H (0-1.0) k/uL Sodium (137-145) mmol/L Chloride 97 L (98-107) mmol/L Carbon Dioxide 17 L (22-30) mmol/L BUN 37 H (9-20) mg/dL Creatinine 5.65 H (0.66-1.25) mg/dL Glucose 148 H (74-99) mg/dL Calcium 11.3 H (8.4-10.2) mg/dL Total Protein 9.5 H (6.3-8.2) g/dL Albumin 5.7 H (3.5-5.0) g/dL Urine Protein 2+ H (Negative) Urine Glucose (UA) Trace H (Negative) Urine Blood Moderate H (Negative) Urine Bilirubin 1+ H (Negative) Ur Leukocyte Esterase Small H (Negative) Urine WBC 11 H (0-5) /hpf Amorphous Sediment Rare H (None) /hpf Hyaline Casts 28 H (0-2) /lpf Urine Mucus Rare H (None) /hpf 11/04/17 11/04/17 Range/Units 06:13 06:13 WBC 11.8 H (3.8-10.6) k/uL RBC (4.30-5.90) m/uL Hgb (13.0-17.5) gm/dL Neutrophils # (1.3-7.7) k/uL Monocytes # (0-1.0) k/uL Sodium 135 L (137-145) mmol/L Chloride (98-107) mmol/L Carbon Dioxide 21 L (22-30) mmol/L BUN 39 H (9-20) mg/dL Creatinine 2.98 H (0.66-1.25) mg/dL Glucose 103 H (74-99) mg/dL Calcium (8.4-10.2) mg/dL Total Protein (6.3-8.2) g/dL Albumin (3.5-5.0) g/dL Urine Protein (Negative) Urine Glucose (UA) (Negative) Urine Blood (Negative) Urine Bilirubin (Negative) Ur Leukocyte Esterase (Negative) Urine WBC (0-5) /hpf Amorphous Sediment (None) /hpf Hyaline Casts (0-2) /lpf Urine Mucus (None) /hpf Thrombosis Risk Factor Assmnt - Choose All That Apply Any of the Below Risk Factors Present?: Yes Each Factor Represents 1 point: Acute CA, Obesity (BMI >25) Other Risk Factors: Yes Each Risk Factor Represents 2 Points: Age 61-74 years Other congenital or acquired thrombophilia - If yes, enter type in comment: No Thrombosis Risk Factor Assessment Total Risk Factor Score: 4 Thrombosis Risk Factor Assessment Level: Moderate Risk Assessment and Plan Plan: ASSESSMENT: Acute renal failure secondary to hypovolemia secondary to diarrhea and decreased oral intake, creatinine 5.65 on admission, baseline creatinine 1.0 Nausea and vomiting, may be secondary to gastroenteritis, also suspect secondary to cannabinoid hyperemesis syndrome Multiple hospitalizations secondary to acute renal failure secondary to hypovolemia due to diarrhea and decreased oral intake, which improved with IV hydration Chronic abdominal pain with diarrhea, GI workup negative, suspected cannabinoid hyperemesis syndrome Coronary artery disease with previous stenting 2 History of chronic pain with opioid dependency and abuse Essential hypertension Hyperlipidemia Cannabis use disorder, patient is a daily marijuana smoker PLAN: Nephrology on consult. Appreciate recommendations and input Continue IV fluids Avoid nephrotoxic agents Recheck kidney function in a.m. Patient is to have no narcotics ordered during hospitalization secondary to previous dependency and abuse Home meds as appropriate Monitor labs GI prophylaxis: Protonix 40 mg PO Daily DVT prophylaxis: SCDs to bilateral lower extremities Monitor vital signs and address as appropriate Discharge planning: Patient to return home when stable Further recommendations pending patient's course Possible discharge home tomorrow if kidney function has returned to baseline Nurse practitioner note has been reviewed by physician. Signing provider agrees with the documented findings, assessment, and plan of care.
[2017-11-04] MEDS: LORATADINE 10 MG TAB PO SCH (14:29)
[2017-11-04] MEDS: guaiFENesin 600 MG TABLET.ER PO SCH ×2 (14:29→21:39)
[2017-11-04] MEDS: ACETAMINOPHEN TAB 325 MG TAB PO PRN (20:28)
[2017-11-04] MEDS: LORazepam 1 MG TAB PO PRN (21:42)
[2017-11-05 06:31] VITALS: RESP 18; TEMP 97.1
[2017-11-05] MEDS: LEVOTHYROXINE 75 MCG TAB PO SCH (06:38)
[2017-11-05] MEDS: SODIUM CHLORIDE 0.9% 1,000 ML IV SCH ×2 (06:38→14:34)
[2017-11-05] MEDS: cloNIDine HCL 0.1 MG TAB PO SCH (07:20)
[2017-11-05] MEDS: PANTOPRAZOLE 40 MG TABLET PO SCH (07:20)
[2017-11-05] MEDS: ESCITALOPRAM 10 MG TAB PO SCH (07:20)
[2017-11-05] MEDS: guaiFENesin 600 MG TABLET.ER PO SCH (07:21)
[2017-11-05] MEDS: LORATADINE 10 MG TAB PO SCH (07:21)
[2017-11-05] MEDS: LOSARTAN 25 MG TAB PO SCH (07:21)
[2017-11-05] MEDS: ACETAMINOPHEN TAB 325 MG TAB PO PRN (07:26)
[2017-11-05 08:20] LABS: Calcium 9.4 mg/dL (8.4-10.2); Potassium 4.3 mmol/L (3.5-5.1)
[2017-11-05] MEDS ORDERED: DOCUSATE 100 MG CAP PO SCH (11:30)
[2017-11-05 14:18] VITALS: BP 141/83; PULSE 78
--- NOTE | 2017-11-05 14:51 | P.DS ---
Providers Date of admission: 11/03/17 18:31 Attending physician: Miki Nava Consults: 11/03/17 18:31 Consult Physician Urgent Consulting Provider: Rafaela Browne Consult Reason/Comments: Acute renal failure Do you want consulting provider notified?: Yes Primary care physician: Miki Nava [facility] Course: HPI : Mr. Rueda is a 62-year-old male who presented to the emergency room with a chief complaint of nausea and vomiting. The patient states on Tuesday he had approximately 6-8 beers and the following morning started feeling unwell. He reports that he was having dry heaves. He reports decreased PO intake. His symptoms did not improve so he came to the emergency room for further evaluation. The patient has been admitted multiple times due to nausea, vomiting, and acute renal failure. During his hospitalizations, the patient has found to be in acute renal failure. He is hydrated with IV fluids and his kidney function normalizes and his symptoms subside. The patient also has a history of irritable bowel syndrome and persistent GI symptoms of nausea, vomiting, and diarrhea lasting for the past 5 years. He underwent GI workup in 2016 including EGD in May 2016 which showed mild antral gastritis, small hiatal hernia, and no evidence of peptic ulcer disease. The patient's GI symptoms seem to coincide with his daily cannabis use. The patient has been encouraged multiple times to discontinue marijuana use. The patient states he has decreased the amount of marijuana use but continues to use it regularly. The patient has a history of coronary artery disease, gastroesophageal reflux disease, hypertension, hyperlipidemia, and history of opioid abuse. Patient has a history of multiple heart attacks and the patient states he has had "over 10 heart attacks". He states he had a stent placement in 2007 and 2013. Most recent echocardiogram is from October 2016 which reveals an ejection fraction of 55-60%. Laboratory data on admission reveals white count 18.1. Hemoglobin 18.4. Platelet count 255. Sodium 138. Potassium 4.0. BUN 37. Creatinine 5.67. The patient was admitted to the hospital under the care of Dr. Nava. Consultations were placed to nephrology. Hospital course: Patient was given IV fluids after which his creatinine decreased from 5.65- to 2.98 to 1.24 this morning. Patient is able to tolerate foods by mouth and feels that his back to his baseline. He has been cleared by nephrology to be discharged home today. Vitals and physical exam within normal limits at the time of discharge. DISCHARGE DIAGNOSIS Acute renal failure secondary to hypovolemia secondary to diarrhea and decreased oral intake, creatinine 5.65 on admission back to baseline creatinine 1.25 today Nausea and vomiting, may be secondary to gastroenteritis, also suspect secondary to cannabinoid hyperemesis syndrome - resolved Multiple hospitalizations secondary to acute renal failure secondary to hypovolemia due to diarrhea and decreased oral intake, which improved with IV hydration Chronic abdominal pain with diarrhea, GI workup negative, suspected cannabinoid hyperemesis syndrome Coronary artery disease with previous stenting 2 History of chronic pain with opioid dependency and abuse Essential hypertension Hyperlipidemia Cannabis use disorder, patient is a daily marijuana smoker Patient counseled on discontinue marijuana use as it is aggravating his symptoms and his is requiring multiple hospitalizations. Patient Condition at Discharge: Stable Plan - Discharge Summary Discharge Rx Participant: No New Discharge Prescriptions: Continue cloNIDine HCL [Clonidine HCl] 0.1 mg PO BID Levothyroxine Sodium [Synthroid] 75 mcg PO DAILY Omeprazole 20 mg PO DAILY Nitroglycerin Sl Tabs [Nitrostat] 0.4 mg SUBLINGUAL Q5M PRN PRN Reason: Chest Pain Escitalopram [Lexapro] 30 mg PO DAILY Losartan [Cozaar] 25 mg PO DAILY LORazepam [Ativan] 1 mg PO HS PRN PRN Reason: Insomnia Discharge Medication List cloNIDine HCL [Clonidine HCl] 0.1 mg PO BID 11/16/15 [History] Levothyroxine Sodium [Synthroid] 75 mcg PO DAILY 05/04/16 [History] Omeprazole 20 mg PO DAILY 05/04/16 [History] Nitroglycerin Sl Tabs [Nitrostat] 0.4 mg SUBLINGUAL Q5M PRN 07/19/16 [History] Escitalopram [Lexapro] 30 mg PO DAILY 12/16/16 [History] LORazepam [Ativan] 1 mg PO HS PRN 11/03/17 [History] Losartan [Cozaar] 25 mg PO DAILY 11/03/17 [History] Follow up Appointment(s)/Referral(s): Miki Nava DO [Primary Care Provider] - 1-2 days
== END 2017-11-05 15:09 | disposition home or self-care (01) | DRG 683 ==
LOC: EC 15:21 → 6SEL 18:31 → 4MS4W 11-04 16:35
PROVIDERS: ADMIT Family Medicine; ATTEND Family Medicine
DX: N17.9 Acute kidney failure, unspecified (principal); K52.1 Toxic gastroenteritis and colitis; E87.2 Acidosis; I25.10 Atherosclerotic heart disease of native coronary artery without angina pectoris; K21.9 Gastro-esophageal reflux disease without esophagitis; E86.1 Hypovolemia; T40.7X1A Poisoning by cannabis (derivatives), accidental (unintentional), initial encounter; I25.2 Old myocardial infarction; M19.90 Unspecified osteoarthritis, unspecified site; M51.36 Other intervertebral disc degeneration, lumbar region; Z87.891 Personal history of nicotine dependence; F12.988 Cannabis use, unspecified with other cannabis-induced disorder; Z80.8 Family history of malignant neoplasm of other organs or systems; Z83.3 Family history of diabetes mellitus; Z82.49 Family history of ischemic heart disease and other diseases of the circulatory system; E07.9 Disorder of thyroid, unspecified; Z79.890 Hormone replacement therapy; Z79.899 Other long term (current) drug therapy; G89.29 Other chronic pain; I10 Essential (primary) hypertension; E78.5 Hyperlipidemia, unspecified; F11.21 Opioid dependence, in remission; Z71.51 Drug abuse counseling and surveillance of drug abuser; G43.909 Migraine, unspecified, not intractable, without status migrainosus; Z95.5 Presence of coronary angioplasty implant and graft; E83.52 Hypercalcemia
CPT/HCPCS: 36415; 80048; 80053; 80320; 81001; 83735; 85025; 85027; 96361; 96374; 96375; 99285

== ENCOUNTER 2017-12-05 20:34 | Emergency (ER) | payer MEDICARE ==
[2017-12-05] MEDS ORDERED: PANTOPRAZOLE 40 MG/10 ML VIAL IVP STA (21:00)
[2017-12-05] MEDS ORDERED: LORazepam 2 MG/ML INJ IV STA (21:00)
[2017-12-05] MEDS ORDERED: ONDANSETRON 4 MG/2 ML VIAL IVP STA (21:00)
[2017-12-05] MEDS ORDERED: SODIUM CHLORIDE 0.9% 500 ML 500 ML IV STA (21:00)
[2017-12-05] MEDS ORDERED: SODIUM CHLORIDE 0.9% 1,000 ML IV STA ×3 (21:00→22:35)
--- NOTE | 2017-12-05 21:01 | ED ---
Nausea/Vomiting/Diarrhea HPI - General Chief complaint: Nausea/Vomiting/Diarrhea Stated complaint: vomiting/dehydration Time Seen by Provider: 12/05/17 20:58 Source: patient, RN notes reviewed, old records reviewed Mode of arrival: ambulatory Limitations: no limitations - History of Present Illness Initial comments: This is a 62 male to the ED complains of persistent nausea vomiting abdominal pain. Patient states he has history of small bowel obstruction, he is unable to keep his medications down at this time. No recent hospital evaluations will he has been to the ER multiple times for symptoms in the past. She denies any fevers, no persistent diarrhea, no other medication changes MD complaint: nausea, vomiting, abdominal pain -: days(s) Description of Vomiting: watery Associated Abdominal Pain: Yes Location: diffuse Severity: severe Severity scale (1-10): 9 Quality: cramping, aching Consistency: constant Improves with: none Associated Symptoms: loss of appetite, nausea/vomiting, weakness - Related Data Home Medications Medication Instructions Recorded Confirmed cloNIDine HCL [Clonidine HCl] 0.1 mg PO BID 11/16/15 11/03/17 Levothyroxine Sodium [Synthroid] 75 mcg PO DAILY 05/04/16 11/03/17 Omeprazole 20 mg PO DAILY 05/04/16 11/03/17 Nitroglycerin Sl Tabs [Nitrostat] 0.4 mg SUBLINGUAL Q5M PRN 07/19/16 11/03/17 Escitalopram [Lexapro] 30 mg PO DAILY 12/16/16 11/03/17 LORazepam [Ativan] 1 mg PO HS PRN 11/03/17 11/03/17 Losartan [Cozaar] 25 mg PO DAILY 11/03/17 11/03/17 Allergies Allergy/AdvReac Type Severity Reaction Status Date / Time Beta-Blockers Allergy Rash/Hives Verified 12/05/17 20:51 (Beta-Adrenergic Bloc paroxetine HCl [From Paxil] AdvReac Unknown Abdominal Verified 12/05/17 20:51 Pain gabapentin AdvReac Abdominal Verified 12/05/17 20:51 Pain Review of Systems ROS Statement: Those systems with pertinent positive or pertinent negative responses have been documented in the HPI. ROS Other: All systems not noted in ROS Statement are negative. Past Medical History Past Medical History: Coronary Artery Disease (CAD), Chest Pain / Angina, GERD/ Reflux, Hyperlipidemia, Hypertension, Myocardial Infarction ([place]), Musculoskeletal Disorder, Osteoarthritis (OA), Renal Disease, Syncope, Thyroid Disorder Additional Past Medical History / Comment(s): Chronic low back pain DIVERTICULITIS, IBS, renal insufficiency with dehydration. Hx bronchitis & pneumonia, migraines, SMALL HIATAL HERNIA.lumbar ddd(pain clinic procedures) Last Myocardial Infarction Date:: 2013 History of Any Multi-Drug Resistant Organisms: None Reported Past Surgical History: Back Surgery, Cholecystectomy, Heart Catheterization With Stent, Hernia Repair, Orthopedic Surgery Additional Past Surgical History / Comment(s): COLONOSCOPY, EGD, ORIF LT ANKLE, L ANKLE SX, BACK SURGERIES fusion L3-L5, LT HAND SURGERY D/T FRACTURE, RT KNEE ARTHROSCOPIC X 2, RT ELBOW TENDON RELEASE SURG, LUMBAR SPINE CYST REMOVAL, HIATAL HERNIA REPAIR, right shoulder arthroscopy, back injections. PAIN CLINIC Past Anesthesia/Blood Transfusion Reactions: No Reported Reaction Date of Last Stent Placement:: 2013 Past Psychological History: Depression Smoking Status: Former smoker Past Alcohol Use History: Rare Past Drug Use History: Marijuana - Past Family History Mother Family Medical History: Thyroid Disorder Additional Family Medical History / Comment(s): Mother is living. Father Family Medical History: Coronary Artery Disease (CAD), Diabetes Mellitus Additional Family Medical History / Comment(s): triple bypass Sister(s) Family Medical History: Cancer, Thyroid Disorder Additional Family Medical History / Comment(s): SKIN CA/ #2 sister had thyroid cancer General Exam Limitations: no limitations General appearance: alert, in no apparent distress, anxious Head exam: Present: atraumatic, normocephalic, normal inspection Eye exam: Present: normal appearance, PERRL, EOMI. Absent: scleral icterus, conjunctival injection, periorbital swelling ENT exam: Present: normal exam, mucous membranes dry Neck exam: Present: normal inspection. Absent: tenderness, meningismus, lymphadenopathy Respiratory exam: Present: normal lung sounds bilaterally. Absent: respiratory distress, wheezes, rales, rhonchi, stridor Cardiovascular Exam: Present: normal rhythm, tachycardia, normal heart sounds. Absent: systolic murmur, diastolic murmur, rubs, gallop, clicks GI/Abdominal exam: Present: soft, normal bowel sounds. Absent: distended, tenderness, guarding, rebound, rigid Extremities exam: Present: normal inspection, full ROM, normal capillary refill. Absent: tenderness, pedal edema, joint swelling, calf tenderness Back exam: Present: normal inspection Neurological exam: Present: alert, oriented X3, CN II-XII intact Psychiatric exam: Present: normal affect, normal mood Skin exam: Present: warm, dry, intact, normal color. Absent: rash Course Vital Signs 12/05/17 12/05/17 12/05/17 20:39 21:50 22:30 Temperature 98.3 F Pulse Rate 122 H 78 Respiratory 20 16 Rate Blood Pressure 163/121 176/115 138/95 O2 Sat by Pulse 98 92 L Oximetry - Reevaluation(s) Reevaluation #1: 12/05/17 21:36 Medical record is reviewed Reevaluation #2: 12/05/17 21:36 Patient won't this emergency room for psych vomiting persistent nausea and vomiting and recurrent SBO's. Reevaluation #3: 12/05/17 23:10 Patient is tolerating oral intake encouraged increased water intake Medical Decision Making - Medical Decision Making 59 female the ER with persistent nausea vomiting abdominal pain. All symptoms resolved currently. Labwork is bumped from prior but patient encouraged increased fluid intake, feels better he will and right without difficulty, tolerating oral fluid intake and can be discharged home - Lab Data Result diagrams: 12/05/17 20:53 12/05/17 20:53 Lab Results 12/05/17 12/05/17 12/05/17 Range/Units 20:53 20:53 20:53 WBC 14.3 H (3.8-10.6) k/uL RBC 5.97 H (4.30-5.90) m/uL Hgb 18.3 H D (13.0-17.5) gm/dL Hct 53.3 H (39.0-53.0) % MCV 89.2 (80.0-100.0) fL MCH 30.7 (25.0-35.0) pg MCHC 34.4 (31.0-37.0) g/dL RDW 13.4 (11.5-15.5) % Plt Count 300 (150-450) k/uL Neutrophils % 84 % Lymphocytes % 10 % Monocytes % 5 % Eosinophils % 1 % Basophils % 0 % Neutrophils # 12.0 H (1.3-7.7) k/uL Lymphocytes # 1.4 (1.0-4.8) k/uL Monocytes # 0.7 (0-1.0) k/uL Eosinophils # 0.1 (0-0.7) k/uL Basophils # 0.0 (0-0.2) k/uL Sodium 140 (137-145) mmol/L Potassium 4.3 (3.5-5.1) mmol/L Chloride 100 (98-107) mmol/L Carbon Dioxide 18 L (22-30) mmol/L Anion Gap 22 mmol/L BUN 21 H (9-20) mg/dL Creatinine 2.42 H (0.66-1.25) mg/dL Est GFR (CKD-EPI)AfAm 32 (>60 ml/min/1.73 sqM) Est GFR (CKD-EPI)NonAf 28 (>60 ml/min/1.73 sqM) Glucose 141 H (74-99) mg/dL Plasma Lactic Acid Chacorta (0.7-2.0) mmol/L Calcium 12.4 H (8.4-10.2) mg/dL Total Bilirubin 1.1 (0.2-1.3) mg/dL AST 29 (17-59) U/L ALT 27 (21-72) U/L Alkaline Phosphatase 125 (38-126) U/L Total Creatine Kinase 123 (55-170) U/L CK-MB (CK-2) 2.4 (0.0-2.4) ng/mL CK-MB (CK-2) Rel Index 2.0 Troponin I <0.012 (0.000-0.034) ng/mL Total Protein 10.0 H (6.3-8.2) g/dL Albumin 5.9 H (3.5-5.0) g/dL Amylase 67 (30-110) U/L Lipase 106 (23-300) U/L Urine Color Urine Appearance (Clear) Urine pH (5.0-8.0) Ur Specific Ross (1.001-1.035) Urine Protein (Negative) Urine Glucose (UA) (Negative) Urine Ketones (Negative) Urine Blood (Negative) Urine Nitrite (Negative) Urine Bilirubin (Negative) Urine Urobilinogen (<2.0) mg/dL Ur Leukocyte Esterase (Negative) Urine RBC (0-5) /hpf Urine WBC (0-5) /hpf Ur Squamous Epith Cells (0-4) /hpf Amorphous Sediment (None) /hpf Urine Bacteria (None) /hpf Hyaline Casts (0-2) /lpf Urine Mucus (None) /hpf Serum Alcohol <10 mg/dL 12/05/17 12/05/17 Range/Units 20:53 22:50 WBC (3.8-10.6) k/uL RBC (4.30-5.90) m/uL Hgb (13.0-17.5) gm/dL Hct (39.0-53.0) % MCV (80.0-100.0) fL MCH (25.0-35.0) pg MCHC (31.0-37.0) g/dL RDW (11.5-15.5) % Plt Count (150-450) k/uL Neutrophils % % Lymphocytes % % Monocytes % % Eosinophils % % Basophils % % Neutrophils # (1.3-7.7) k/uL Lymphocytes # (1.0-4.8) k/uL Monocytes # (0-1.0) k/uL Eosinophils # (0-0.7) k/uL Basophils # (0-0.2) k/uL Sodium (137-145) mmol/L Potassium (3.5-5.1) mmol/L Chloride (98-107) mmol/L Carbon Dioxide (22-30) mmol/L Anion Gap mmol/L BUN (9-20) mg/dL Creatinine (0.66-1.25) mg/dL Est GFR (CKD-EPI)AfAm (>60 ml/min/1.73 sqM) Est GFR (CKD-EPI)NonAf (>60 ml/min/1.73 sqM) Glucose (74-99) mg/dL Plasma Lactic Acid Chacorta 3.6 H* (0.7-2.0) mmol/L Calcium (8.4-10.2) mg/dL Total Bilirubin (0.2-1.3) mg/dL AST (17-59) U/L ALT (21-72) U/L Alkaline Phosphatase (38-126) U/L Total Creatine Kinase (55-170) U/L CK-MB (CK-2) (0.0-2.4) ng/mL CK-MB (CK-2) Rel Index Troponin I (0.000-0.034) ng/mL Total Protein (6.3-8.2) g/dL Albumin (3.5-5.0) g/dL Amylase (30-110) U/L Lipase (23-300) U/L Urine Color Dark Brown Urine Appearance Turbid (Clear) Urine pH 5.5 (5.0-8.0) Ur Specific Ross 1.023 (1.001-1.035) Urine Protein 2+ H (Negative) Urine Glucose (UA) Trace H (Negative) Urine Ketones Trace H (Negative) Urine Blood Small H (Negative) Urine Nitrite Negative (Negative) Urine Bilirubin 1+ H (Negative) Urine Urobilinogen 3.0 (<2.0) mg/dL Ur Leukocyte Esterase Trace H (Negative) Urine RBC 5 (0-5) /hpf Urine WBC 6 H (0-5) /hpf Ur Squamous Epith Cells 1 (0-4) /hpf Amorphous Sediment Rare H (None) /hpf Urine Bacteria Occasional H (None) /hpf Hyaline Casts 675 H (0-2) /lpf Urine Mucus Moderate H (None) /hpf Serum Alcohol mg/dL Disposition Clinical Impression: Dehydration, moderate, JOSIE (acute kidney injury), Acute vomiting Disposition: HOME SELF-CARE Condition: Good Instructions: Acute Nausea and Vomiting (ED) Is patient prescribed a controlled substance at d/c from ED?: No Referrals: Miki Nava DO [Primary Care Provider] - 1-2 days
[2017-12-05 21:28] LABS: Basophils % (A) 0 %; Eosinophils # (A) 0.1 k/uL (0-0.7); Eosinophils % (A) 1 %; HCT 53.3 % (39.0-53.0); HGB 18.3 gm/dL (13.0-17.5); Lymphocytes # (A) 1.4 k/uL (1.0-4.8); Lymphocytes % (A) 10 %; MCH 30.7 pg (25.0-35.0); MCHC 34.4 g/dL (31.0-37.0); MCV 89.2 fL (80.0-100.0); Mean Platelet Volume 7.2; Monocytes # (A) 0.7 k/uL (0-1.0); Monocytes % (A) 5 %; Neutrophils % (A) 84 %; Platelet Count 300 k/uL (150-450); RBC 5.97 m/uL (4.30-5.90); RDW 13.4 % (11.5-15.5); WBC 14.3 k/uL (3.8-10.6)
[2017-12-05] MEDS ORDERED: HYDROmorphone 1 MG/ML 1 ML SYRINGE IVP STA (21:34)
[2017-12-05 21:35] LABS: Creatine Kinase 123 U/L (55-170)
[2017-12-05 21:47] LABS: Creatine Kinase MB 2.4 ng/mL (0.0-2.4); Troponin I <0.012 ng/mL (0.000-0.034)
[2017-12-05 21:54] LABS: ALT 27 U/L (21-72); AST 29 U/L (17-59); Albumin 5.9 g/dL (3.5-5.0); Alcohol <10 mg/dL; Alkaline Phosphatase 125 U/L (38-126); Amylase 67 U/L (30-110); Anion Gap 22 mmol/L; Blood Urea Nitrogen 21 mg/dL (9-20); Calcium 12.4 mg/dL (8.4-10.2); Carbon Dioxide 18 mmol/L (22-30); Chloride 100 mmol/L (98-107); Glucose 141 mg/dL (74-99); Lipase 106 U/L (23-300); Potassium 4.3 mmol/L (3.5-5.1); Sodium 140 mmol/L (137-145); Total Bilirubin 1.1 mg/dL (0.2-1.3)
[2017-12-05 22:39] VITALS: PULSE 78
[2017-12-05 23:06] LABS: Amorphous Sediment,Urine Rare /hpf; Appearance,Urine Turbid (Clear); Bacteria,Urine Occasional /hpf; Bilirubin,Urine 1+ (Negative); Blood,Urine Small (Negative); Color,Urine Dark Brown; Glucose,Urine (UA) Trace (Negative); Hyaline Casts,Urine 675 /lpf (0-2); Ketones,Urine Trace (Negative); Leukocyte Esterase,Urine Trace (Negative); Mucus,Urine Moderate /hpf; Nitrite,Urine Negative (Negative); PH, Urine 5.5 (5.0-8.0); Protein,Urine 2+ (Negative); RBC,Urine 5 /hpf (0-5); Specific Gravity,Urine 1.023 (1.001-1.035); Squamous Epithelial Cell,Urine 1 /hpf (0-4); WBC,Urine 6 /hpf (0-5)
[2017-12-05 23:14] VITALS: RESP 18
[2017-12-05 23:19] VITALS: BP 128/80; TEMP 98
== END 2017-12-05 23:17 | disposition home or self-care (01) ==
LOC: EC 20:34
DX: N17.9 Acute kidney failure, unspecified (principal); E86.0 Dehydration; R11.2 Nausea with vomiting, unspecified; R19.7 Diarrhea, unspecified; R10.84 Generalized abdominal pain; I25.119 Atherosclerotic heart disease of native coronary artery with unspecified angina pectoris; K21.9 Gastro-esophageal reflux disease without esophagitis; I10 Essential (primary) hypertension; I25.2 Old myocardial infarction; M19.90 Unspecified osteoarthritis, unspecified site; E07.9 Disorder of thyroid, unspecified; F32.9 Major depressive disorder, single episode, unspecified; Z87.891 Personal history of nicotine dependence; Z79.899 Other long term (current) drug therapy; Z88.8 Allergy status to other drugs, medicaments and biological substances; Z90.49 Acquired absence of other specified parts of digestive tract; Z95.5 Presence of coronary angioplasty implant and graft
CPT/HCPCS: 36415; 80053; 82150; 82550; 82553; 83605; 83690; 84484; 85025; 81001; 87086; 99284; 96374; 96375 ×3; 96361 ×3; G0480; J2060; J2405; J1170; C9113; 80320

== ENCOUNTER 2017-12-25 01:04 | Emergency (ER) | payer MEDICARE ==
[2017-12-25 01:12] VITALS: BP 134/89; PULSE 121; RESP 26; TEMP 97.8
[2017-12-25] MEDS ORDERED: SODIUM CHLORIDE 0.9% 1,000 ML IV STA (01:30)
[2017-12-25] MEDS ORDERED: MORPHINE SULFATE 4 MG/ML SYRINGE IVP STA (01:31)
[2017-12-25] MEDS ORDERED: RX INFO: IV CONTRAST WAS GIVEN 1 EACH MISC MISCELLANE PRN (01:31)
[2017-12-25] MEDS ORDERED: HEPARIN SODIUM,PORCINE 5,000 UNIT/ML 1 ML VIAL IV PRN (01:34)
[2017-12-25] MEDS ORDERED: HEPARIN SODIUM,PORCINE 5,000 UNIT/ML 1 ML VIAL IV ONE (01:34)
--- NOTE | 2017-12-25 01:37 | ED ---
Extremity Problem HPI - General Chief complaint: Extremity Problem,Nontraumatic Stated complaint: Foot Pain Time Seen by Provider: 12/25/17 01:21 Source: patient Mode of arrival: wheelchair Limitations: no limitations - History of Present Illness Initial comments: Anjum is a 62-year-old gentleman with a history of hypertension hyperlipidemia coronary artery disease who presents to the emergency department today for evaluation of left foot pain. Patient reports that today afternoon he began to feel an aching in his left foot, throughout the evening it became progressively worse. This evening he reports the foot now feels as though he has severe frostbite. Patient reports he's been inside his home and warm all evening despite this his foot is cold to the touch feels tingly and overwhelmingly painful. Patient denies any recent injury to this foot. He is not on any anticoagulant medication he takes a baby aspirin daily. He does have a history of CAD with 2 stents of the heart. He denies any chest pain today. He has no history of atrial fibrillation or arrhythmia. He has no history of blood clots in the past. - Related Data Home Medications Medication Instructions Recorded Confirmed cloNIDine HCL [Clonidine HCl] 0.1 mg PO BID 11/16/15 11/03/17 Levothyroxine Sodium [Synthroid] 75 mcg PO DAILY 05/04/16 11/03/17 Omeprazole 20 mg PO DAILY 05/04/16 11/03/17 Nitroglycerin Sl Tabs [Nitrostat] 0.4 mg SUBLINGUAL Q5M PRN 07/19/16 11/03/17 Escitalopram [Lexapro] 30 mg PO DAILY 12/16/16 11/03/17 LORazepam [Ativan] 1 mg PO HS PRN 11/03/17 11/03/17 Losartan [Cozaar] 25 mg PO DAILY 11/03/17 11/03/17 Allergies Allergy/AdvReac Type Severity Reaction Status Date / Time Beta-Blockers Allergy Rash/Hives Verified 12/25/17 01:12 (Beta-Adrenergic Bloc paroxetine HCl [From Paxil] AdvReac Unknown Abdominal Verified 12/25/17 01:12 Pain gabapentin AdvReac Abdominal Verified 12/25/17 01:12 Pain Review of Systems ROS Statement: Those systems with pertinent positive or pertinent negative responses have been documented in the HPI. ROS Other: All systems not noted in ROS Statement are negative. Past Medical History Past Medical History: Coronary Artery Disease (CAD), Chest Pain / Angina, GERD/ Reflux, Hyperlipidemia, Hypertension, Myocardial Infarction ([place]), Musculoskeletal Disorder, Osteoarthritis (OA), Renal Disease, Syncope, Thyroid Disorder Additional Past Medical History / Comment(s): Chronic low back pain DIVERTICULITIS, IBS, renal insufficiency with dehydration. Hx bronchitis & pneumonia, migraines, SMALL HIATAL HERNIA.lumbar ddd(pain clinic procedures) Last Myocardial Infarction Date:: 2013 History of Any Multi-Drug Resistant Organisms: None Reported Past Surgical History: Back Surgery, Cholecystectomy, Heart Catheterization With Stent, Hernia Repair, Orthopedic Surgery Additional Past Surgical History / Comment(s): COLONOSCOPY, EGD, ORIF LT ANKLE, L ANKLE SX, BACK SURGERIES fusion L3-L5, LT HAND SURGERY D/T FRACTURE, RT KNEE ARTHROSCOPIC X 2, RT ELBOW TENDON RELEASE SURG, LUMBAR SPINE CYST REMOVAL, HIATAL HERNIA REPAIR, right shoulder arthroscopy, back injections. PAIN CLINIC Past Anesthesia/Blood Transfusion Reactions: No Reported Reaction Date of Last Stent Placement:: 2013 Past Psychological History: Depression Smoking Status: Former smoker Past Alcohol Use History: Rare Past Drug Use History: Marijuana - Past Family History Mother Family Medical History: Thyroid Disorder Additional Family Medical History / Comment(s): Mother is living. Father Family Medical History: Coronary Artery Disease (CAD), Diabetes Mellitus Additional Family Medical History / Comment(s): triple bypass Sister(s) Family Medical History: Cancer, Thyroid Disorder Additional Family Medical History / Comment(s): SKIN CA/ #2 sister had thyroid cancer General Exam - General Exam Comments Initial Comments: GENERAL: Patient is well-developed and well-nourished. Patient is in acute pain and appears distressed HENT: Normocephalic, Atraumatic. Neck is soft and supple. No significant lymphadenopathy is noted. Oropharynx is clear. Moist mucous membranes. Neck has full range of motion without eliciting any pain. EYES: The sclera were anicteric and conjunctiva were pink and moist. Extraocular movements were intact and pupils were equal round and reactive to light. Eyelids were unremarkable. PULMONARY: Tachypneic, no wheezing CARDIOVASCULAR: Tachycardic, regular Strong radial pulses bilaterally Right lower extremity a strong DP and PT pulses Left lower extremity with no palpable DP or PT pulses. No DP or PT signals on Doppler Palpable popliteal pulse in the left lower extremity ABDOMEN: Soft and nontender with normal bowel sounds. SKIN: Left foot appears pale and mottled NEUROLOGIC: Patient is alert and oriented x3. Cranial nerves II through XII are grossly intact. Paresthesias of the left lower extremity MUSCULOSKELETAL: Decreased range of motion of the left ankle due to pain LYMPHATICS: No significant lymphadenopathy is noted PSYCHIATRIC: Appropriately anxious Limitations: no limitations Limitations: no limitations Course Vital Signs 12/25/17 01:09 Temperature 97.8 F Pulse Rate 121 H Respiratory 26 H Rate Blood Pressure 134/89 O2 Sat by Pulse 99 Oximetry Medical Decision Making - Medical Decision Making Patient was seen and evaluated immediately upon arrival to the emergency department, physical exam reveals a cold pulseless foot. Doppler was obtained. There were no Doppler signals audible. EKG was obtained and reveals sinus tachycardia Patient care was discussed with ER physician at [facility] who discussed case with Vascular Surgery signs and displays salesperson, they accept patient transfer to ER Dr. Sanz , no CTA indicated at this time per vascular surgery. Labs pending at time of transfer. Critical Care Time Critical Care Time: Yes Total Critical Care Time: 30 Critical Care Time: Critical care time was exclusive of separately billable procedures and treating other patients Critical care was necessary to treat or prevent imminent or life or limb threatening deterioration. Critical care was time spent personally by me on the following activities: development of treatment plan with patient or surrogate, discussions with consultants, discussions with primary provider, evaluation of patient's response to treatment, examination of patient, obtaining history from patient or surrogate, ordering and performing treatments and interventions, ordering and review of laboratory studies, ordering and review of radiographic studies, pulse oximetry, re-evaluation of patient's condition and review of old charts. Disposition Clinical Impression: Ischemic leg Disposition: OTHER INSTITUTION NOT DEFINED Condition: Serious Referrals: Miki Nava DO [Primary Care Provider] - 1-2 days - Out of Hospital Transfer - Req. Specs Out of Hospital Transfer - Requested Specifics: Other Emergency Center ([facility] - vascular surgery)
[2017-12-25] MEDS ORDERED: HEPARIN SOD,PORK IN 0.45% NACL 25,000 UNIT in 0.45% NACL 1 500ML.BAG IV SCH (01:45)
[2017-12-25] MEDS ORDERED: HYDROmorphone 1 MG/ML 1 ML SYRINGE IVP STA (02:01)
[2017-12-25 02:45] LABS: Basophils % (A) 0 %; Eosinophils % (A) 0 %; HCT 53.7 % (39.0-53.0); HGB 18.4 gm/dL (13.0-17.5); Lymphocytes # (A) 1.1 k/uL (1.0-4.8); Lymphocytes % (A) 7 %; MCH 30.6 pg (25.0-35.0); MCHC 34.2 g/dL (31.0-37.0); MCV 89.3 fL (80.0-100.0); Mean Platelet Volume 7.4; Monocytes # (A) 0.8 k/uL (0-1.0); Monocytes % (A) 5 %; Neutrophils # (A) 15.3 k/uL (1.3-7.7); Neutrophils % (A) 88 %; Platelet Count 230 k/uL (150-450); RBC 6.02 m/uL (4.30-5.90); RDW 13.1 % (11.5-15.5); WBC 17.5 k/uL (3.8-10.6)
[2017-12-25 02:55] LABS: Calcium 11.8 mg/dL (8.4-10.2); Potassium 4.8 mmol/L (3.5-5.1); Total Bilirubin 1.2 mg/dL (0.2-1.3); Total Protein 10.4 g/dL (6.3-8.2)
[2017-12-25 03:05] LABS: Partial Thromboplastin Time 22.8 sec (22.0-30.0)
[2017-12-25 03:13] LABS: Creatine Kinase 237 U/L (55-170)
[2017-12-25 03:22] LABS: Albumin 6.4 g/dL (3.5-5.0)
[2017-12-25 03:26] LABS: Troponin I <0.012 ng/mL (0.000-0.034)
== END 2017-12-25 02:13 | disposition short-term general hospital (02) ==
LOC: EC 01:04
DX: I99.8 Other disorder of circulatory system (principal); R00.0 Tachycardia, unspecified; R06.82 Tachypnea, not elsewhere classified; I10 Essential (primary) hypertension; I25.10 Atherosclerotic heart disease of native coronary artery without angina pectoris; E07.9 Disorder of thyroid, unspecified; K21.9 Gastro-esophageal reflux disease without esophagitis; M19.90 Unspecified osteoarthritis, unspecified site; F32.9 Major depressive disorder, single episode, unspecified; I25.2 Old myocardial infarction; Z87.891 Personal history of nicotine dependence; Z88.8 Allergy status to other drugs, medicaments and biological substances; Z79.82 Long term (current) use of aspirin; Z79.899 Other long term (current) drug therapy; Z95.818 Presence of other cardiac implants and grafts; Z98.1 Arthrodesis status; Z82.49 Family history of ischemic heart disease and other diseases of the circulatory system; Z98.890 Other specified postprocedural states
CPT/HCPCS: 93005; 36415; 80053; 82550; 82553; 83605; 84484; 85025; 85610; 85730; 99285; 96365; 96375 ×2; 96376; J2270; J1644 ×2; J1170

== ENCOUNTER 2018-02-07 12:24 | Inpatient (IN) | payer MEDICARE ==
[2018-02-07] MEDS ORDERED: SODIUM CHLORIDE 0.9% 1,000 ML IV ONE ×2 (15:03→16:20)
--- NOTE | 2018-02-07 15:05 | ED ---
General Adult HPI - General Chief complaint: Recheck/Abnormal Lab/Rx Stated complaint: "renal failure and blood clot in leg" Time Seen by Provider: 02/07/18 14:38 Source: patient, RN notes reviewed, old records reviewed Mode of arrival: wheelchair Limitations: no limitations - History of Present Illness Initial comments: 62-year-old male presents for evaluation of left foot pain and concern for renal failure. Patient has history of renal failure in the past, he is concerned that he may have developed some renal failure secondary to nausea and vomiting. He had previous arterial obstruction approximately one month ago in the left leg. This was treated by vascular surgery clinic [facility]. He states he has been on sotalol to that has noticed a dose, he attributes his vomiting and diarrhea to those results are. He states his foot became slightly painful and cold at approximately 8 AM. He is presenting for evaluation at 2 PM. - Related Data Home Medications Medication Instructions Recorded Confirmed cloNIDine HCL [Clonidine HCl] 0.1 mg PO BID 11/16/15 02/07/18 Levothyroxine Sodium [Synthroid] 75 mcg PO DAILY 05/04/16 02/07/18 Omeprazole 20 mg PO DAILY 05/04/16 02/07/18 Nitroglycerin Sl Tabs [Nitrostat] 0.4 mg SUBLINGUAL Q5M PRN 07/19/16 02/07/18 Escitalopram [Lexapro] 20 mg PO DAILY 12/16/16 02/07/18 LORazepam [Ativan] 1 mg PO HS PRN 11/03/17 02/07/18 Aspirin EC [Ecotrin Low Dose] 81 mg PO DAILY 02/07/18 02/07/18 Rivaroxaban [Xarelto] 20 mg PO BID 02/07/18 02/07/18 amLODIPine [Norvasc] 5 mg PO DAILY 02/07/18 02/07/18 Allergies Allergy/AdvReac Type Severity Reaction Status Date / Time Beta-Blockers Allergy Rash/Hives Verified 02/07/18 15:00 (Beta-Adrenergic Bloc paroxetine HCl [From Paxil] AdvReac Unknown Abdominal Verified 02/07/18 15:00 Pain gabapentin AdvReac Abdominal Verified 02/07/18 15:00 Pain Review of Systems ROS Statement: Those systems with pertinent positive or pertinent negative responses have been documented in the HPI. ROS Other: All systems not noted in ROS Statement are negative. Past Medical History Past Medical History: Coronary Artery Disease (CAD), Chest Pain / Angina, GERD/ Reflux, Hyperlipidemia, Hypertension, Myocardial Infarction (ID), Musculoskeletal Disorder, Osteoarthritis (OA), Renal Disease, Syncope, Thyroid Disorder Additional Past Medical History / Comment(s): Chronic low back pain DIVERTICULITIS, IBS, renal insufficiency with dehydration. Hx bronchitis & pneumonia, migraines, SMALL HIATAL HERNIA.lumbar ddd(pain clinic procedures) Last Myocardial Infarction Date:: 2013 History of Any Multi-Drug Resistant Organisms: None Reported Past Surgical History: Back Surgery, Cholecystectomy, Heart Catheterization With Stent, Hernia Repair, Orthopedic Surgery Additional Past Surgical History / Comment(s): COLONOSCOPY, EGD, ORIF LT ANKLE, L ANKLE SX, BACK SURGERIES fusion L3-L5, LT HAND SURGERY D/T FRACTURE, RT KNEE ARTHROSCOPIC X 2, RT ELBOW TENDON RELEASE SURG, LUMBAR SPINE CYST REMOVAL, HIATAL HERNIA REPAIR, right shoulder arthroscopy, back injections. PAIN CLINIC. DVT removed left leg Past Anesthesia/Blood Transfusion Reactions: No Reported Reaction Date of Last Stent Placement:: 2013 Past Psychological History: Depression Smoking Status: Former smoker Past Alcohol Use History: Rare Past Drug Use History: Marijuana - Past Family History Mother Family Medical History: Thyroid Disorder Additional Family Medical History / Comment(s): Mother is living. Father Family Medical History: Coronary Artery Disease (CAD), Diabetes Mellitus Additional Family Medical History / Comment(s): triple bypass Sister(s) Family Medical History: Cancer, Thyroid Disorder Additional Family Medical History / Comment(s): SKIN CA/ #2 sister had thyroid cancer General Exam Limitations: no limitations General appearance: alert, in no apparent distress Head exam: Present: atraumatic, normocephalic Eye exam: Present: normal appearance, PERRL ENT exam: Present: mucous membranes dry Neck exam: Present: normal inspection. Absent: tenderness, meningismus Respiratory exam: Present: normal lung sounds bilaterally. Absent: respiratory distress, wheezes Cardiovascular Exam: Present: normal rhythm, tachycardia GI/Abdominal exam: Present: soft. Absent: distended, tenderness, guarding, rebound Extremities exam: Present: other (Lower extremity within normal limits, left lower extremity, foot is cold to the touch, pale, no DP or PT pulse, no Doppler signal, there is Doppler signal in the popliteal artery, 2+ femoral pulse on the left.). Absent: pedal edema, calf tenderness Neurological exam: Present: alert, oriented X3, CN II-XII intact. Absent: motor sensory deficit Psychiatric exam: Present: normal affect, normal mood Skin exam: Present: warm, dry, intact. Absent: cyanosis, diaphoretic Course Vital Signs 02/07/18 02/07/18 12:59 15:49 Temperature 98.3 F Pulse Rate 118 H 100 Respiratory 20 20 Rate Blood Pressure 150/96 182/100 O2 Sat by Pulse 98 98 Oximetry EKG Findings - EKG Comments: EKG Findings:: EKG: Normal sinus rhythm, rate 94, MO interval 190, QRS duration 98, QTC 447, no ST segment changes Medical Decision Making - Medical Decision Making 62-year-old male presenting for evaluation nausea vomiting diarrhea, concern for renal failure and complaint of left foot pain. Patient recently had arterial occlusion of the left lower extremity, he did receive treatment at outside hospital. At the time of initial evaluation I discussed the case with Dr. Rollins, he is familiar with this patient. At the time of discharge patient had a pulse in his foot. At the time my evaluation he has left femoral pulse, popliteal signal, and no signals in the foot. He recommends heparin and will evaluate the patient tomorrow morning at this institution. Laboratory studies obtained in the emergency department, show white blood cell count 23,000, this may be reactive secondary to vomiting and diarrhea, stable hemoglobin, creatinine elevated 5.34, lactic acid 4.0, uncertain if this is related more to dehydration from vomiting diarrhea rather than the possibility of limb ischemia. Vitals are stable in the emergency department. Patient will be continued on IV heparin, admitted to internal medicine, case discussed with admitting physician, with vascular surgery on consult. - Lab Data Result diagrams: 02/07/18 15:32 02/07/18 15:32 Lab Results 02/07/18 02/07/18 02/07/18 Range/Units 15:32 15:32 15:32 WBC 23.0 H (3.8-10.6) k/uL RBC 5.65 (4.30-5.90) m/uL Hgb 15.6 (13.0-17.5) gm/dL Hct 46.1 (39.0-53.0) % MCV 81.6 D (80.0-100.0) fL MCH 27.6 (25.0-35.0) pg MCHC 33.8 (31.0-37.0) g/dL RDW 14.6 (11.5-15.5) % Plt Count 268 (150-450) k/uL Neutrophils % 87 % Lymphocytes % 7 % Monocytes % 5 % Eosinophils % 0 % Basophils % 0 % Neutrophils # 19.9 H (1.3-7.7) k/uL Lymphocytes # 1.6 (1.0-4.8) k/uL Monocytes # 1.2 H (0-1.0) k/uL Eosinophils # 0.1 (0-0.7) k/uL Basophils # 0.0 (0-0.2) k/uL Poikilocytosis Slight PT 10.0 (9.0-12.0) sec INR 0.9 (<1.2) APTT 20.7 L (22.0-30.0) sec Sodium 139 (137-145) mmol/L Potassium 4.2 (3.5-5.1) mmol/L Chloride 95 L (98-107) mmol/L Carbon Dioxide 17 L (22-30) mmol/L Anion Gap 27 mmol/L BUN 32 H (9-20) mg/dL Creatinine 5.34 H (0.66-1.25) mg/dL Est GFR (CKD-EPI)AfAm 12 (>60 ml/min/1.73 sqM) Est GFR (CKD-EPI)NonAf 11 (>60 ml/min/1.73 sqM) Glucose 127 H (74-99) mg/dL Plasma Lactic Acid Chacorta (0.7-2.0) mmol/L Calcium 12.0 H (8.4-10.2) mg/dL Total Bilirubin 1.0 (0.2-1.3) mg/dL AST 48 (17-59) U/L ALT 26 (21-72) U/L Alkaline Phosphatase 120 (38-126) U/L Total Protein 10.4 H (6.3-8.2) g/dL Albumin 6.3 H (3.5-5.0) g/dL 02/07/18 Range/Units 15:32 WBC (3.8-10.6) k/uL RBC (4.30-5.90) m/uL Hgb (13.0-17.5) gm/dL Hct (39.0-53.0) % MCV (80.0-100.0) fL MCH (25.0-35.0) pg MCHC (31.0-37.0) g/dL RDW (11.5-15.5) % Plt Count (150-450) k/uL Neutrophils % % Lymphocytes % % Monocytes % % Eosinophils % % Basophils % % Neutrophils # (1.3-7.7) k/uL Lymphocytes # (1.0-4.8) k/uL Monocytes # (0-1.0) k/uL Eosinophils # (0-0.7) k/uL Basophils # (0-0.2) k/uL Poikilocytosis PT (9.0-12.0) sec INR (<1.2) APTT (22.0-30.0) sec Sodium (137-145) mmol/L Potassium (3.5-5.1) mmol/L Chloride (98-107) mmol/L Carbon Dioxide (22-30) mmol/L Anion Gap mmol/L BUN (9-20) mg/dL Creatinine (0.66-1.25) mg/dL Est GFR (CKD-EPI)AfAm (>60 ml/min/1.73 sqM) Est GFR (CKD-EPI)NonAf (>60 ml/min/1.73 sqM) Glucose (74-99) mg/dL Plasma Lactic Acid Chacorta 4.0 H* (0.7-2.0) mmol/L Calcium (8.4-10.2) mg/dL Total Bilirubin (0.2-1.3) mg/dL AST (17-59) U/L ALT (21-72) U/L Alkaline Phosphatase (38-126) U/L Total Protein (6.3-8.2) g/dL Albumin (3.5-5.0) g/dL Disposition Clinical Impression: Acute vomiting, Dehydration, Acute kidney injury (nontraumatic), Renal insufficiency, Nausea & vomiting, Limb ischemia Disposition: ADMITTED IP TO THIS [facility] Condition: Serious Is patient prescribed a controlled substance at d/c from ED?: No Referrals: Miki Nava DO [Primary Care Provider] - 1-2 days Decision to Admit Reason: Admit from EC Decision Date: 02/07/18 Decision Time: 16:30
[2018-02-07] MEDS: HEPARIN SOD,PORK IN 0.45% NACL 25,000 UNIT in 0.45% NACL 1 250ML.BAG IV SCH (15:47)
[2018-02-07 15:50] LABS: Basophils % (A) 0 %; Eosinophils # (A) 0.1 k/uL (0-0.7); Eosinophils % (A) 0 %; HCT 46.1 % (39.0-53.0); HGB 15.6 gm/dL (13.0-17.5); Lymphocytes # (A) 1.6 k/uL (1.0-4.8); Lymphocytes % (A) 7 %; MCH 27.6 pg (25.0-35.0); MCHC 33.8 g/dL (31.0-37.0); Mean Platelet Volume 7.6; Monocytes # (A) 1.2 k/uL (0-1.0); Monocytes % (A) 5 %; Neutrophils # (A) 19.9 k/uL (1.3-7.7); Neutrophils % (A) 87 %; Platelet Count 268 k/uL (150-450); Poikilocytosis Slight; RBC 5.65 m/uL (4.30-5.90); RDW 14.6 % (11.5-15.5)
[2018-02-07 15:52] LABS: MCV 81.6 fL (80.0-100.0)
[2018-02-07] MEDS ORDERED: MORPHINE SULFATE 4 MG/ML SYRINGE IVP STA ×2 (15:56→17:56)
[2018-02-07 15:59] LABS: Potassium 4.2 mmol/L (3.5-5.1); Total Protein 10.4 g/dL (6.3-8.2)
[2018-02-07 16:04] LABS: INR 0.9 (<1.2)
[2018-02-07 16:10] LABS: Partial Thromboplastin Time 20.7 sec (22.0-30.0)
[2018-02-07 16:18] LABS: Albumin 6.3 g/dL (3.5-5.0)
[2018-02-07] MEDS ORDERED: NALOXONE 0.4 MG/ML 1 ML VIAL IV PRN (16:31)
[2018-02-07] MEDS ORDERED: ONDANSETRON 4 MG/2 ML VIAL IVP PRN (16:31)
[2018-02-07] MEDS ORDERED: cloNIDine HCL 0.1 MG TAB PO STA (18:03)
[2018-02-07] MEDS ORDERED: NITROGLYCERIN SL TABS 0.4 MG TAB SUBLINGUAL PRN (18:24)
[2018-02-07] MEDS ORDERED: ALPRAZolam 0.25 MG TAB PO PRN (18:25)
[2018-02-07] MEDS ORDERED: HYDROcodone/APAP 5-325MG 1 EACH TAB PO PRN (18:25)
[2018-02-07] MEDS: SODIUM CHLORIDE 0.9% 1,000 ML IV SCH (18:55)
[2018-02-07 20:28] LABS: Basophils # (A) 0.1 k/uL (0-0.2); Basophils % (A) 0 %; Eosinophils # (A) 0.1 k/uL (0-0.7); Eosinophils % (A) 0 %; HCT 38.3 % (39.0-53.0); Lymphocytes # (A) 1.8 k/uL (1.0-4.8); Lymphocytes % (A) 9 %; MCV 84.2 fL (80.0-100.0); Monocytes # (A) 1.1 k/uL (0-1.0); Monocytes % (A) 6 %; Neutrophils # (A) 15.6 k/uL (1.3-7.7); Neutrophils % (A) 82 %; Platelet Count 214 k/uL (150-450); Poikilocytosis Slight; RBC 4.55 m/uL (4.30-5.90); RDW 14.8 % (11.5-15.5)
[2018-02-07 20:31] LABS: HGB 12.3 gm/dL (13.0-17.5)
[2018-02-07] MEDS: MORPHINE SULFATE 4 MG/ML SYRINGE IV PRN (23:07)
[2018-02-07] MEDS: LORazepam 1 MG TAB PO PRN (23:38)
[2018-02-07] MEDS: cloNIDine HCL 0.1 MG TAB PO SCH (23:39)
[2018-02-07] MEDS ORDERED: ACETAMINOPHEN TAB 500 MG TAB PO PRN (23:52)
[2018-02-08 00:02] VITALS: BMI 29.4
[2018-02-08] MEDS: MORPHINE SULFATE 4 MG/ML SYRINGE IV PRN ×6 (02:56→23:57)
[2018-02-08] MEDS: SODIUM CHLORIDE 0.9% 1,000 ML IV SCH ×2 (02:56→13:10)
[2018-02-08 03:04] LABS: Appearance,Urine Cloudy (Clear); Bilirubin,Urine Negative (Negative); Blood,Urine Moderate (Negative); Color,Urine Yellow; Glucose,Urine (UA) 1+ (Negative); Hyaline Casts,Urine 83 /lpf (0-2); Ketones,Urine Negative (Negative); Leukocyte Esterase,Urine Small (Negative); Mucus,Urine Rare /hpf; Nitrite,Urine Negative (Negative); PH, Urine 5.5 (5.0-8.0); Protein,Urine 2+ (Negative); RBC,Urine 2 /hpf (0-5); Specific Gravity,Urine 1.012 (1.001-1.035); Urobilinogen,Urine <2.0 mg/dL (<2.0); WBC,Urine 23 /hpf (0-5)
[2018-02-08 05:15] LABS: Basophils % (A) 0 %; Eosinophils # (A) 0.1 k/uL (0-0.7); Eosinophils % (A) 0 %; HCT 35.2 % (39.0-53.0); HGB 11.5 gm/dL (13.0-17.5); Lymphocytes # (A) 2.2 k/uL (1.0-4.8); Lymphocytes % (A) 15 %; MCHC 32.8 g/dL (31.0-37.0); MCV 85.3 fL (80.0-100.0); Mean Platelet Volume 7.8; Monocytes # (A) 0.9 k/uL (0-1.0); Monocytes % (A) 6 %; Neutrophils # (A) 11.4 k/uL (1.3-7.7); Neutrophils % (A) 76 %; Platelet Count 170 k/uL (150-450); RBC 4.12 m/uL (4.30-5.90); RDW 14.8 % (11.5-15.5); WBC 14.9 k/uL (3.8-10.6)
[2018-02-08 05:27] LABS: Calcium 9.1 mg/dL (8.4-10.2); Magnesium 1.9 mg/dL (1.6-2.3); Potassium 4.4 mmol/L (3.5-5.1)
[2018-02-08] MEDS: HEPARIN SODIUM,PORCINE 5,000 UNIT/ML 1 ML VIAL IV PRN (06:08)
[2018-02-08] MEDS: LEVOTHYROXINE 75 MCG TAB PO SCH (06:08)
--- NOTE | 2018-02-08 07:06 | HP ---
HISTORY AND PHYSICAL DATE OF SERVICE: 02/07/2018 I am covering for Dr. Nava. CHIEF COMPLAINTS: Leg pain as well as nausea, vomiting and renal failure. HISTORY OF PRESENT ILLNESS: This 62-year-old gentleman with a past medical history of CAD, history GERD, hypertension, hyperlipidemia, recurrent episodes, nausea, vomiting and as well as renal failure being followed by Dr. Nava in the outpatient setting. Also, present of the left foot. The patient subsequently transferred to [facility] and Dr. Hanna performed angiogram and as well as subsequently extraction of the blood clots. The detailed report is not available at this time. Patient improved significantly and went home. Patient has recurrent episodes of vomiting and the patient came to [facility] and admitted for further evaluation and treatment. Currently the patient had potassium 4.2 and the sodium is 139. Creatinine was elevated to 5.34. The baseline creatinine was around 1.24 a few months ago. There is no history of any fever, rigors. No history of headache, loss of consciousness or seizures. The patient also complains of numbness of the left foot also. Dr. Hanna was contacted and the patient was recommended to be started on IV heparin and Vascular Surgery will be evaluating the patient closely. There is no history of chest pain. No history of palpitations. No history of headache, loss conscious or seizures. White count is slightly elevated. PAST MEDICAL HISTORY: History of CAD, history of GERD, hypertension, hyperlipidemia, history of myocardial infarction, history of DJD, history hypothyroidism, history of chronic back pain , history of depression, history of recent blood clot as mentioned earlier. MEDICATIONS: 1. Clonidine 0.1 p.o. b.i.d. 2. Norvasc 5 mg p.o. daily. 3. Xarelto 10 mg b.i.d. 4. Omeprazole 20 mg daily. 5. Nitro 0.4 sublingual p.r.n. 6. Synthroid 75 mcg p.o. daily. 7. Ativan 1 mg q.h.s. p.r.n. 8. Lexapro 20 mg daily. 9. Ecotrin 81 mg daily. ALLERGIES: Allergies to BETA BLOCKERS, PAXIL and GABAPENTIN. FAMILY HISTORY: History of CAD, diabetes mellitus and CABG. SOCIAL HISTORY: History of THC, medical marijuana. History of occasional alcohol. Previous history of smoking. REVIEW OF SYSTEMS: ENT: No diminished hearing or diminished vision. CARDIOVASCULAR SYSTEM: No angina. RESPIRATORY SYSTEM: As mentioned earlier. GI: As mentioned earlier. : No dysuria. NERVOUS SYSTEM: No numbness or weakness. ALLERGY/IMMUNOLOGY: No history of asthma or hay fever. MUSCULOSKELETAL: As mentioned earlier. HEMATOLOGY/ONCOLOGY: No history of anemia. ENDOCRINE: No history of diabetes or hypothyroidism. CONSTITUTIONAL: As mentioned earlier. DERMATOLOGY: Negative. RHEUMATOLOGY: Negative. PSYCHIATRY: As mentioned earlier. PHYSICAL EXAMINATION: The patient is alert and oriented x3. Pulse 76, blood pressure 118/83, respirations 16, temperature 98.3, pulse ox 96% on room air. HEENT: Conjunctivae normal. Oral mucosa moist. Neck is no jugular venous distention. No carotid bruit. No lymph node enlargement. CARDIOVASCULAR: S1, S2 muffled. No S3, no S4. RESPIRATORY: Breath sounds diminished at the bases. A few scattered rhonchi. No crackles. ABDOMEN: Soft, nontender. No mass palpable. No guarding. No rigidity. LEGS: Pulses diminished distally. Otherwise, no focal deficit. NERVOUS SYSTEM: Moves all 4 limbs. No focal deficits. Cranial nerves grossly intact. SKIN: No ulcer, rash or bleeding. JOINTS: No active deforming arthropathy. LABS: WBC 19, hemoglobin 12.3. Sodium 139, potassium 4.2. Creatinine is 5.34. Plasma lactic acidosis 4. Calcium is 12. Albumin is 6.3. ASSESSMENT: 1. Severe acute renal failure possibly prerenal acute renal failure with acute tubular necrosis secondary to dehydration and vomiting. 2. Possible acute gastritis. 3. Hypercalcemia, present on admission secondary to dehydration. 4. Increased WBC, possibly reactive. 5. History of recent arterial occlusion of the left leg and as well as arteriography and thrombus extraction elsewhere. 7. Coronary artery disease. 8. History of gastroesophageal reflux disease. 9. Hypertension. 10.Hyperlipidemia. 11.Myocardial infarction. 12.History of degenerative joint disease. 13.History of syncope. 14.History of chronic low back pain. 15.History of irritable bowel syndrome. 16.History of migraines. 17.History of coronary artery disease, stent. 18.History of depression. 19.Remote history of nicotine dependence. 20.Medical marijuana. RECOMMENDATIONS AND DISCUSSION: In this 62-year-old gentleman who presented with multiple medical issues, we will monitor the patient closely. Continue the current medications, continues symptomatic treatment. At this time I recommend continue with IV fluids, nephrology consultation, avoid nephrotoxic medications, IV heparin, repeat labs in the morning, vascular surgery evaluation. The prognosis guarded because of multiple complex medical conditions. Further recommendations to follow. See orders for details. A copy of dictation forwarded to Dr. Nava who is the primary physician. Medications reconciliation done. MMODL / IJN: [id number] / [id number]
[2018-02-08] MEDS: cloNIDine HCL 0.1 MG TAB PO SCH ×2 (08:04→19:54)
[2018-02-08] MEDS: ESCITALOPRAM 20 MG TAB PO SCH (08:05)
[2018-02-08] MEDS: amLODIPine 5 MG TAB PO SCH (08:05)
[2018-02-08] MEDS: ASPIRIN 81 MG PO SCH (08:05)
[2018-02-08] MEDS: PANTOPRAZOLE 40 MG TABLET PO SCH (08:05)
[2018-02-08] MEDS ORDERED: NON-FORMULARY DRUG (Omeprazole [Omeprazole] 20 MG) PO SCH (09:00)
--- NOTE | 2018-02-08 11:13 | P.GSCN ---
History of Present Illness Consult date: 02/08/18 Reason for Consult: Left lower extremity ischemia History of present illness: 62-year-old gentleman with history of left lower extremity acute arterial occlusion with history of thrombolytic therapy and revascularization which was done at [facility] in the last couple of months. He states since that time his lower extremities had been feeling better without significant discomfort and noted over the last couple days acute pain in his left foot. He also has been taking Xarelto since his discharge and has noted some nausea and vomiting with the medication. He states he was dehydrated and his lab values were abnormal which brought him to the hospital. He was seen in the emergency department and noted to have significant pain in his left lower extremity with absence of pulses in his DP and PT without any significant Doppler signal. When evaluated at [facility] after his revascularization it was noted that he had signal to his DP and PT with palpable femoral and popliteal pulses. He denies any fevers, chills, chest pain or shortness of breath. He was admitted to the hospital and started on a heparin drip which she states has improved his discomfort and noted since last night his pain in his left foot and lower extremity has improved dramatically. His foot does not feel as cool this morning. Review of Systems Complains of numbness and tingling in the left foot upon admission which is now slightly improved. - Constitutional Reports as per HPI - EENT Ears, nose, mouth and throat: Reports as per HPI - Cardiovascular Reports as per HPI, Reports claudication, Denies chest pain, Denies shortness of breath - Gastrointestinal Reports as per HPI, Reports nausea, Reports vomiting - Genitourinary Denies hematuria - Musculoskeletal Reports as per HPI - Integumentary Reports as per HPI - Neurological Reports as per HPI - Psychiatric Denies anxiety, Denies depression - Endocrine Denies cold intolerance, Denies heat intolerance - Hematologic/Lymphatic Reports as per HPI Past Medical History Past Medical History: Coronary Artery Disease (CAD), Chest Pain / Angina, GERD/ Reflux, Hyperlipidemia, Hypertension, Myocardial Infarction ([place]), Musculoskeletal Disorder, Osteoarthritis (OA), Renal Disease, Syncope, Thyroid Disorder Additional Past Medical History / Comment(s): Chronic low back pain DIVERTICULITIS, IBS, renal insufficiency with dehydration. Hx bronchitis & pneumonia, migraines, SMALL HIATAL HERNIA.lumbar ddd(pain clinic procedures) Last Myocardial Infarction Date:: 2013 History of Any Multi-Drug Resistant Organisms: None Reported Past Surgical History: Back Surgery, Cholecystectomy, Heart Catheterization With Stent, Hernia Repair, Orthopedic Surgery Additional Past Surgical History / Comment(s): COLONOSCOPY, EGD, ORIF LT ANKLE, L ANKLE SX, BACK SURGERIES fusion L3-L5, LT HAND SURGERY D/T FRACTURE, RT KNEE ARTHROSCOPIC X 2, RT ELBOW TENDON RELEASE SURG, LUMBAR SPINE CYST REMOVAL, HIATAL HERNIA REPAIR, right shoulder arthroscopy, back injections. PAIN CLINIC. DVT removed left leg Past Anesthesia/Blood Transfusion Reactions: No Reported Reaction Date of Last Stent Placement:: 2013 Past Psychological History: Depression Additional Psychological History / Comment(s): pt resides with his spouse in a ranch style home that has 2 front steps. He uses a cane as needed. He drives.has 2 pet dogs(1 pit bull and 1 macedonian comer) Smoking Status: Former smoker Past Alcohol Use History: Rare Additional Past Alcohol Use History / Comment(s): Smoked from 1971 to 1983 SMOKED 1PPD Past Drug Use History: Marijuana Additional Drug Use History / Comment(s): was smoking MEDICAL marijuana - OCCASIONAL USE Pt states he used opiates in the past- does not take since 2014 -INSTRUCTED TO REFRAIN FROM USE FOR AT LEAST 24 HOURS PRIOR TO PROCEDURE - Past Family History Mother Family Medical History: Thyroid Disorder Additional Family Medical History / Comment(s): Mother is living. Father Family Medical History: Coronary Artery Disease (CAD), Diabetes Mellitus Additional Family Medical History / Comment(s): triple bypass Sister(s) Family Medical History: Cancer, Thyroid Disorder Additional Family Medical History / Comment(s): SKIN CA/ #2 sister had thyroid cancer Medications and Allergies Home Medications Medication Instructions Recorded Confirmed Type cloNIDine HCL [Clonidine HCl] 0.1 mg PO BID 11/16/15 02/07/18 History Levothyroxine Sodium [Synthroid] 75 mcg PO DAILY 05/04/16 02/07/18 History Omeprazole 20 mg PO DAILY 05/04/16 02/07/18 History Nitroglycerin Sl Tabs [Nitrostat] 0.4 mg SUBLINGUAL Q5M PRN 07/19/16 02/07/18 History Escitalopram [Lexapro] 20 mg PO DAILY 12/16/16 02/07/18 History LORazepam [Ativan] 1 mg PO HS PRN 11/03/17 02/07/18 History Aspirin EC [Ecotrin Low Dose] 81 mg PO DAILY 02/07/18 02/07/18 History Rivaroxaban [Xarelto] 20 mg PO BID 02/07/18 02/07/18 History amLODIPine [Norvasc] 5 mg PO DAILY 02/07/18 02/07/18 History Allergies Allergy/AdvReac Type Severity Reaction Status Date / Time Beta-Blockers Allergy Rash/Hives Verified 02/07/18 15:00 (Beta-Adrenergic Bloc paroxetine HCl [From Paxil] AdvReac Unknown Abdominal Verified 02/07/18 15:00 Pain gabapentin AdvReac Abdominal Verified 02/07/18 15:00 Pain Surgical - Exam Vital Signs Temp Pulse Resp BP Pulse Ox 98.3 F 118 H 20 150/96 98 02/07/18 12:59 02/07/18 12:59 02/07/18 12:59 02/07/18 12:59 02/07/18 12:59 - General well developed, well nourished, no distress - Eyes PERRL, normal ocular movement - ENT normal pinna, normal nares, no hearing loss - Neck no masses, no bruits - Respiratory normal expansion, normal respiratory effort - Cardiovascular Rhythm: regular - Abdomen Abdomen: soft, non tender, no distended - Integumentary no rash, no growths - Neurologic normal coordination, normal sensation - Psychiatric oriented to time, oriented to person, oriented to place Palpable femoral pulse bilaterally. Positive Doppler signal noted on the left posterior tibial artery which is monophasic. Biphasic signal noted at the anterior tibial artery on the left. Left foot and toes are still cool to the touch. There is slow capillary refill noted. He does have sensation and is able to move his feet and toes without pain. No tenderness to palpation in the calf. Results - Labs 02/08/18 04:22 02/08/18 04:22 Abnormal Lab Results - Last 24 Hours (Table) 02/07/18 02/07/18 02/07/18 Range/Units 15:32 15:32 15:32 WBC 23.0 H (3.8-10.6) k/uL RBC (4.30-5.90) m/uL Hgb (13.0-17.5) gm/dL Hct (39.0-53.0) % Neutrophils # 19.9 H (1.3-7.7) k/uL Monocytes # 1.2 H (0-1.0) k/uL APTT 20.7 L (22.0-30.0) sec Sodium (137-145) mmol/L Chloride 95 L (98-107) mmol/L Carbon Dioxide 17 L (22-30) mmol/L BUN 32 H (9-20) mg/dL Creatinine 5.34 H (0.66-1.25) mg/dL Glucose 127 H (74-99) mg/dL Plasma Lactic Acid Chacorta (0.7-2.0) mmol/L Calcium 12.0 H (8.4-10.2) mg/dL Total Protein 10.4 H (6.3-8.2) g/dL Albumin 6.3 H (3.5-5.0) g/dL Urine Protein (Negative) Urine Glucose (UA) (Negative) Urine Blood (Negative) Ur Leukocyte Esterase (Negative) Urine WBC (0-5) /hpf Hyaline Casts (0-2) /lpf Urine Mucus (None) /hpf 02/07/18 02/07/18 02/08/18 Range/Units 15:32 20:05 02:30 WBC 19.0 H (3.8-10.6) k/uL RBC (4.30-5.90) m/uL Hgb 12.3 L D (13.0-17.5) gm/dL Hct 38.3 L (39.0-53.0) % Neutrophils # 15.6 H (1.3-7.7) k/uL Monocytes # 1.1 H (0-1.0) k/uL APTT (22.0-30.0) sec Sodium (137-145) mmol/L Chloride (98-107) mmol/L Carbon Dioxide (22-30) mmol/L BUN (9-20) mg/dL Creatinine (0.66-1.25) mg/dL Glucose (74-99) mg/dL Plasma Lactic Acid Chacorta 4.0 H* (0.7-2.0) mmol/L Calcium (8.4-10.2) mg/dL Total Protein (6.3-8.2) g/dL Albumin (3.5-5.0) g/dL Urine Protein 2+ H (Negative) Urine Glucose (UA) 1+ H (Negative) Urine Blood Moderate H (Negative) Ur Leukocyte Esterase Small H (Negative) Urine WBC 23 H (0-5) /hpf Hyaline Casts 83 H (0-2) /lpf Urine Mucus Rare H (None) /hpf 02/08/18 02/08/18 Range/Units 04:22 04:22 WBC 14.9 H (3.8-10.6) k/uL RBC 4.12 L (4.30-5.90) m/uL Hgb 11.5 L (13.0-17.5) gm/dL Hct 35.2 L (39.0-53.0) % Neutrophils # 11.4 H (1.3-7.7) k/uL Monocytes # (0-1.0) k/uL APTT (22.0-30.0) sec Sodium 135 L (137-145) mmol/L Chloride (98-107) mmol/L Carbon Dioxide 17 L (22-30) mmol/L BUN 40 H (9-20) mg/dL Creatinine 3.52 H (0.66-1.25) mg/dL Glucose 101 H (74-99) mg/dL Plasma Lactic Acid Chacorta (0.7-2.0) mmol/L Calcium (8.4-10.2) mg/dL Total Protein (6.3-8.2) g/dL Albumin (3.5-5.0) g/dL Urine Protein (Negative) Urine Glucose (UA) (Negative) Urine Blood (Negative) Ur Leukocyte Esterase (Negative) Urine WBC (0-5) /hpf Hyaline Casts (0-2) /lpf Urine Mucus (None) /hpf Diabetes panel 02/07/18 02/08/18 Range/Units 15:32 04:22 Sodium 139 135 L (137-145) mmol/L Potassium 4.2 4.4 (3.5-5.1) mmol/L Chloride 95 L 105 (98-107) mmol/L Carbon Dioxide 17 L 17 L (22-30) mmol/L BUN 32 H 40 H (9-20) mg/dL Creatinine 5.34 H 3.52 H (0.66-1.25) mg/dL Glucose 127 H 101 H (74-99) mg/dL Calcium 12.0 H 9.1 (8.4-10.2) mg/dL AST 48 (17-59) U/L ALT 26 (21-72) U/L Alkaline Phosphatase 120 (38-126) U/L Total Protein 10.4 H (6.3-8.2) g/dL Albumin 6.3 H (3.5-5.0) g/dL Calcium panel 02/07/18 02/08/18 Range/Units 15:32 04:22 Calcium 12.0 H 9.1 (8.4-10.2) mg/dL Albumin 6.3 H (3.5-5.0) g/dL Pituitary panel 02/07/18 02/08/18 Range/Units 15:32 04:22 Sodium 139 135 L (137-145) mmol/L Potassium 4.2 4.4 (3.5-5.1) mmol/L Chloride 95 L 105 (98-107) mmol/L Carbon Dioxide 17 L 17 L (22-30) mmol/L BUN 32 H 40 H (9-20) mg/dL Creatinine 5.34 H 3.52 H (0.66-1.25) mg/dL Glucose 127 H 101 H (74-99) mg/dL Calcium 12.0 H 9.1 (8.4-10.2) mg/dL Adrenal panel 02/07/18 02/08/18 Range/Units 15:32 04:22 Sodium 139 135 L (137-145) mmol/L Potassium 4.2 4.4 (3.5-5.1) mmol/L Chloride 95 L 105 (98-107) mmol/L Carbon Dioxide 17 L 17 L (22-30) mmol/L BUN 32 H 40 H (9-20) mg/dL Creatinine 5.34 H 3.52 H (0.66-1.25) mg/dL Glucose 127 H 101 H (74-99) mg/dL Calcium 12.0 H 9.1 (8.4-10.2) mg/dL Total Bilirubin 1.0 (0.2-1.3) mg/dL AST 48 (17-59) U/L ALT 26 (21-72) U/L Alkaline Phosphatase 120 (38-126) U/L Total Protein 10.4 H (6.3-8.2) g/dL Albumin 6.3 H (3.5-5.0) g/dL Assessment and Plan (1) Acute kidney injury (nontraumatic) Current Visit: Yes Status: Acute Priority: High Code(s): N17.9 - ACUTE KIDNEY FAILURE, UNSPECIFIED SNOMED Code(s): 402788283405174 (2) Acute vomiting Current Visit: Yes Status: Acute Priority: Low Code(s): R11.10 - VOMITING , UNSPECIFIED SNOMED Code(s): 22192363 (3) Dehydration Current Visit: Yes Status: Acute Priority: Medium Code(s): E86.0 - DEHYDRATION SNOMED Code(s): 13779628 (4) Limb ischemia Current Visit: Yes Status: Acute Priority: High Code(s): I99.8 - OTHER DISORDER OF CIRCULATORY SYSTEM SNOMED Code(s): 34841636958668 Plan: Reviewed [facility] surgical intervention angiograms and details. Discussed this with the patient in full detail. Continue heparin drip at this time with transitioning to Coumadin secondary to patient's inability to take Xarelto due to his nausea and vomiting. He is in full agreement of this plan. At this time there is no surgical intervention required and would recommend against any angiograms or contrast loading due to his acute renal failure. Once his renal issues have improved we will then further examined and work up with angiogram for his lower extremity ischemia. We will order arterial Dopplers of his lower extremities. He did have a history of vasospasm at [facility] which he may benefit from Nitropaste to the foot area. He is okay to ambulate and have a diet. We will continue to monitor him from a vascular standpoint. If there is any questions please feel free to call me on my cell: [phone]. Thank you for allowing me to participate in your patient 's care. Time with Patient: Greater than 30
[2018-02-08] MEDS: HEPARIN SOD,PORK IN 0.45% NACL 25,000 UNIT in 0.45% NACL 1 250ML.BAG IV SCH (13:11)
--- NOTE | 2018-02-08 13:41 | P.NPCON ---
History of Present Illness - Reason for Consult acute renal failure - History of Present Illness Reason for consultation: Acute kidney injury History of present illness: Patient is a 62-year-old male seen in consultation for acute kidney injury. Patient presented to the hospital with generalized weakness along with nausea vomiting and diarrhea which she states has been going on for the last month and a half. Patient states he has history of DVTs and was recently started on Xarelto. He's not been tolerating the medication well and feels that it makes him sick. Patient received 2 L of normal saline bolus and is currently maintained on normal saline at 100 mL an hour. Creatinine is down to 3.52 today. He is nonoliguric. Oral intake was poor prior to admission. It is gradually improving. No fever or chills. Denies chest pain or shortness of breath. Hemodynamically stable. Denies use of NSAIDs. Lactic acid level was 4 on admission and repeat was down to 1.1. Vital signs are stable. General: The patient appeared well nourished and normally developed. HEENT: Head exam is unremarkable. Neck is without jugular venous distension. LUNGS: Lungs are clear to auscultation and percussion. Breath sounds decreased. HEART: Rate and Rhythm are regular. First and second heart sounds normal. No murmurs, rubs or gallops. ABDOMEN: Abdominal exam reveals normal bowel sounds. Non-tender and non- distended. No evidence of peritonitis. EXTREMITITES: No clubbing, cyanosis, or edema. Past Medical History Past Medical History: Coronary Artery Disease (CAD), Chest Pain / Angina, GERD/ Reflux, Hyperlipidemia, Hypertension, Myocardial Infarction ([place]), Musculoskeletal Disorder, Osteoarthritis ([place]), Renal Disease, Syncope, Thyroid Disorder Additional Past Medical History / Comment(s): Chronic low back pain DIVERTICULITIS, IBS, renal insufficiency with dehydration. Hx bronchitis & pneumonia, migraines, SMALL HIATAL HERNIA.lumbar ddd(pain clinic procedures) Last Myocardial Infarction Date:: 2013 History of Any Multi-Drug Resistant Organisms: None Reported Past Surgical History: Back Surgery, Cholecystectomy, Heart Catheterization With Stent, Hernia Repair, Orthopedic Surgery Additional Past Surgical History / Comment(s): COLONOSCOPY, EGD, ORIF LT ANKLE, L ANKLE SX, BACK SURGERIES fusion L3-L5, LT HAND SURGERY D/T FRACTURE, RT KNEE ARTHROSCOPIC X 2, RT ELBOW TENDON RELEASE SURG, LUMBAR SPINE CYST REMOVAL, HIATAL HERNIA REPAIR, right shoulder arthroscopy, back injections. PAIN CLINIC. DVT removed left leg Past Anesthesia/Blood Transfusion Reactions: No Reported Reaction Date of Last Stent Placement:: 2013 Past Psychological History: Depression Additional Psychological History / Comment(s): pt resides with his spouse in a ranch style home that has 2 front steps. He uses a cane as needed. He drives.has 2 pet dogs(1 pit bull and 1 polish comer) Smoking Status: Former smoker Past Alcohol Use History: Rare Additional Past Alcohol Use History / Comment(s): Smoked from 1971 to 1983 SMOKED 1PPD Past Drug Use History: Marijuana Additional Drug Use History / Comment(s): was smoking MEDICAL marijuana - OCCASIONAL USE Pt states he used opiates in the past- does not take since 2014 -INSTRUCTED TO REFRAIN FROM USE FOR AT LEAST 24 HOURS PRIOR TO PROCEDURE - Past Family History Mother Family Medical History: Thyroid Disorder Additional Family Medical History / Comment(s): Mother is living. Father Family Medical History: Coronary Artery Disease (CAD), Diabetes Mellitus Additional Family Medical History / Comment(s): triple bypass Sister(s) Family Medical History: Cancer, Thyroid Disorder Additional Family Medical History / Comment(s): SKIN CA/ #2 sister had thyroid cancer Medications and Allergies Home Medications Medication Instructions Recorded Confirmed Type cloNIDine HCL [Clonidine HCl] 0.1 mg PO BID 11/16/15 02/07/18 History Levothyroxine Sodium [Synthroid] 75 mcg PO DAILY 05/04/16 02/07/18 History Omeprazole 20 mg PO DAILY 05/04/16 02/07/18 History Nitroglycerin Sl Tabs [Nitrostat] 0.4 mg SUBLINGUAL Q5M PRN 07/19/16 02/07/18 History Escitalopram [Lexapro] 20 mg PO DAILY 12/16/16 02/07/18 History LORazepam [Ativan] 1 mg PO HS PRN 11/03/17 02/07/18 History Aspirin EC [Ecotrin Low Dose] 81 mg PO DAILY 02/07/18 02/07/18 History Rivaroxaban [Xarelto] 20 mg PO BID 02/07/18 02/07/18 History amLODIPine [Norvasc] 5 mg PO DAILY 02/07/18 02/07/18 History Allergies Allergy/AdvReac Type Severity Reaction Status Date / Time Beta-Blockers Allergy Rash/Hives Verified 02/07/18 15:00 (Beta-Adrenergic Bloc paroxetine HCl [From Paxil] AdvReac Unknown Abdominal Verified 02/07/18 15:00 Pain gabapentin AdvReac Abdominal Verified 02/07/18 15:00 Pain Physical Exam Vitals: Vital Signs Temp Pulse Pulse Pulse Resp BP BP 02/08/18 12:00 98.0 F 78 95 13 123/71 136/86 02/08/18 11:00 76 30 H 141/88 02/08/18 10:00 98.0 F 68 16 105/65 02/08/18 09:00 61 15 124/74 02/08/18 08:00 97.9 F 68 75 20 124/74 127/90 02/08/18 07:00 69 8 L 105/74 02/08/18 06:00 67 14 102/67 02/08/18 05:00 63 15 109/73 02/08/18 04:33 98.2 F 64 13 109/73 02/08/18 04:00 97.8 F 70 19 109/73 02/08/18 00:00 98.2 F 87 22 132/94 02/07/18 22:16 97.7 F 74 18 132/94 02/07/18 21:42 98.3 F 76 16 118/83 02/07/18 19:59 77 143/86 02/07/18 18:53 88 162/99 02/07/18 17:00 90 16 170/117 02/07/18 16:00 90 16 182/110 02/07/18 15:54 91 15 182/110 02/07/18 15:49 100 20 182/100 Pulse Ox 02/08/18 12:00 96 02/08/18 11:00 02/08/18 10:00 96 02/08/18 09:00 96 02/08/18 08:00 97 02/08/18 07:00 97 02/08/18 06:00 92 L 02/08/18 05:00 92 L 02/08/18 04:33 94 L 02/08/18 04:00 95 02/08/18 00:00 95 02/07/18 22:16 96 02/07/18 21:42 96 02/07/18 19:59 02/07/18 18:53 02/07/18 17:00 96 02/07/18 16:00 97 02/07/18 15:54 99 02/07/18 15:49 98 Intake and Output 02/07/18 02/08/18 02/08/18 22:59 06:59 14:59 Intake Total 100 944.241 91.222 Output Total 425 Balance 100 519.241 91.222 Intake: IV 100 800 Sodium Chloride 0.9% 1, 100 800 000 ml @ 100 mls/hr IV . Q10H CYNDIE Rx#:[id number] Intake, IV Titration 144.241 91.222 Amount Heparin Sod,Pork in 0.45% 144.241 91.222 NaCl 25,000 unit In 0.45 % NaCl 1 250ml.bag @ 10.3 UNITS/KG/HR 10.04 mls/hr IV .Q24H CYNDIE Rx#: [id number] Output: Urine 425 Other: Voiding Method Urinal Urinal Weight 95.7 kg 97 kg Results - Lab Results Most recent lab results Calcium 9.1 mg/dL (8.4-10.2) 02/08/18 04:22 Magnesium 1.9 mg/dL (1.6-2.3) 02/08/18 04:22 02/08/18 04:22 02/08/18 04:22 Assessment and Plan Plan: Assessment: 1. Nonoliguric acute kidney injury mostly prerenal secondary to intravascular volume depletion from vomiting and diarrhea. Creatinine was 5.3 on admission and is down to 3.52 today. 2. Metabolic acidosis secondary to acute kidney injury and IV fluids. 3. Hypercalcemia secondary to volume contraction. Improved with IV hydration. 4. Lower extremity ischemia being followed by vascular surgery. 5. Benign hypertension. Controlled. Plan: Maintain normal saline at 100 mL an hour. Add oral sodium bicarbonate. Avoid nephrotoxins. Repeat electrolytes in the morning. Thank you for the consultation. I will continue to follow the patient with you during his hospital stay.
[2018-02-08] MEDS: SODIUM BICARBONATE TAB 650 MG TAB PO SCH ×2 (14:37→19:54)
--- NOTE | 2018-02-08 16:56 | PN ---
PROGRESS NOTE I am covering for Dr. Nava. DATE OF SERVICE: 02/08/2018 This 62-year-old gentleman admitted for left leg pain and severe acute renal failure and subsequent vomiting is being closely monitored in the ICU at this time. The patient had a recent procedure at [facility]. The patient was started on IV heparin. The patient is apparently unable to tolerate Xarelto. Transition to Coumadin was recommended by Dr. Rollins. Nitro paste was also considered a possibility. The creatinine is 3.52 today and sodium is 135. Past medical history reviewed. REVIEW OF SYSTEMS: CARDIOVASCULAR SYSTEM: No angina, palpitations. RESPIRATORY SYSTEM: As mentioned earlier. GI: As mentioned earlier. : No dysuria or retention. NERVOUS SYSTEM: No numbness, weakness. CURRENT MEDICATIONS: Reviewed. They include: 1. Tylenol 500 mg q.6 p.r.n. 2. Xanax 0.25 t.i.d. 3. Norvasc 5 mg p.o. daily. 4. Aspirin 81 mg daily. 5. Catapres 0.1 p.o. b.i.d. 6. Lexapro 20 mg p.o. daily. 7. Heparin daily. 8. Synthroid 75 mcg p.o. daily. 9. Ativan 1 mg at bedtime p.r.n. 10.Morphine sulfate. 11.Narcan 0.2 q.2 p.r.n. 12.Nitrostat 0.4 sublingually p.r.n. 13.Zofran. 14.Protonix. 15.Sodium bicarb 650 p.o. b.i.d. 16.Restoril 15 mg at bedtime p.r.n. PHYSICAL EXAMINATION: Patient is alert, oriented x3. Pulse is 77, blood pressure 139/60, respiration 16, temperature normal, pulse ox 97% on room air. HEENT: Conjunctivae normal. Oral mucosa moist. NECK: No jugular venous distention. No carotid bruit. No lymph node enlargement. CARDIOVASCULAR SYSTEM: S1, S2 muffled. RESPIRATORY SYSTEM: Breath sounds diminished at the bases. Bilateral scattered rhonchi and crackles. ABDOMEN: Soft, non-tender. LEGS: Pulses diminished on the left side. Otherwise, no discoloration noted. NERVOUS SYSTEM: Higher functions as mentioned earlier. Moves all 4 limbs. No focal motor or sensory deficit. LYMPHATICS: No lymph node palpable in neck, axillae or groin. SKIN: No ulcer, rash, bleeding. LABS: WBC 14.9, hemoglobin 11.5, creatinine 3.52. ASSESSMENT: 1. Severe acute renal failure, possibly prerenal acute renal failure with acute tubular necrosis secondary dehydration and vomiting. 2. Possible acute gastritis. 3. Peripheral artery disease of the left leg, on IV heparin. 4. Hypercalcemia, present on admission, possibly secondary to dehydration. 5. Increased white count, possibly reactive. 6. History of recent arterial occlusion of the left leg as well as arteriography and thrombus extraction from [facility]. 7. Coronary artery disease history. 8. History of gastroesophageal reflux disease. 9. Hypertension. 10.Hyperlipidemia. 11.History of myocardial infarction. 12.History of degenerative joint disease. 13.History of syncope. 14.History of chronic low back pain. 15.Irritable bowel syndrome. 16.History of migraine. 17.History of coronary artery disease, stent. 18.History of depression. 19.Remote history of nicotine dependence. 20.Medical marijuana. RECOMMENDATIONS AND DISCUSSION: I recommend to continue current management, continue with the monitoring, symptomatic treatment. Repeat labs. Continue with IV fluids. Continue with the IV heparin. Transition to Coumadin. Guarded prognosis because of multiple complex medical issues. Further recommendations to follow. MMODL / IJN: [id number] /
[2018-02-08] MEDS: LORazepam 1 MG TAB PO PRN (20:39)
[2018-02-08] MEDS: TEMAZEPAM 15 MG CAP PO PRN (23:57)
[2018-02-09] MEDS: SODIUM CHLORIDE 0.9% 1,000 ML IV SCH ×3 (00:07→18:30)
[2018-02-09] MEDS: MORPHINE SULFATE 4 MG/ML SYRINGE IV PRN ×5 (03:57→20:34)
[2018-02-09] MEDS: LEVOTHYROXINE 75 MCG TAB PO SCH (05:58)
[2018-02-09 06:15] LABS: Basophils % (A) 0 %; Eosinophils # (A) 0.1 k/uL (0-0.7); Eosinophils % (A) 1 %; HCT 31.8 % (39.0-53.0); HGB 10.3 gm/dL (13.0-17.5); Hypochromasia Slight; Lymphocytes # (A) 2.1 k/uL (1.0-4.8); Lymphocytes % (A) 25 %; MCH 27.9 pg (25.0-35.0); MCHC 32.6 g/dL (31.0-37.0); MCV 85.6 fL (80.0-100.0); Mean Platelet Volume 7.5; Monocytes # (A) 0.5 k/uL (0-1.0); Monocytes % (A) 6 %; Neutrophils # (A) 5.4 k/uL (1.3-7.7); Neutrophils % (A) 64 %; Platelet Count 160 k/uL (150-450); Poikilocytosis Slight; RBC 3.71 m/uL (4.30-5.90); RDW 14.3 % (11.5-15.5); WBC 8.4 k/uL (3.8-10.6)
[2018-02-09] MEDS: HEPARIN SODIUM,PORCINE 5,000 UNIT/ML 1 ML VIAL IV PRN (06:22)
[2018-02-09 06:23] LABS: Potassium 4.3 mmol/L (3.5-5.1)
[2018-02-09] MEDS: ESCITALOPRAM 20 MG TAB PO SCH (08:13)
[2018-02-09] MEDS: cloNIDine HCL 0.1 MG TAB PO SCH ×2 (08:13→20:34)
[2018-02-09] MEDS: amLODIPine 5 MG TAB PO SCH (08:16)
[2018-02-09] MEDS: ASPIRIN 81 MG PO SCH (08:16)
[2018-02-09] MEDS: SODIUM BICARBONATE TAB 650 MG TAB PO SCH ×2 (08:16→20:34)
[2018-02-09] MEDS: PANTOPRAZOLE 40 MG TABLET PO SCH (08:16)
[2018-02-09] MEDS: HEPARIN SOD,PORK IN 0.45% NACL 25,000 UNIT in 0.45% NACL 1 250ML.BAG IV SCH (11:17)
--- NOTE | 2018-02-09 13:17 | P.PN ---
Subjective Patient is seen in follow-up for acute kidney injury. Renal function is improving with creatinine down to 1.36 today. It was 5.34 on admission. He is maintained on normal saline at 100 mL an hour. No vomiting or diarrhea. Oral intake is good. No active complaints at this time. Vital signs are stable. General: The patient appeared well nourished and normally developed. HEENT: Head exam is unremarkable. Neck is without jugular venous distension. LUNGS: Lungs are clear to auscultation and percussion. Breath sounds decreased. HEART: Rate and Rhythm are regular. First and second heart sounds normal. No murmurs, rubs or gallops. ABDOMEN: Abdominal exam reveals normal bowel sounds. Non-tender and non- distended. No evidence of peritonitis. EXTREMITITES: No clubbing, cyanosis, or edema. Objective - Vital Signs Vital signs: Vital Signs Temp 98.1 F 02/09/18 12:00 Pulse 80 02/09/18 12:00 Resp 18 02/09/18 12:00 BP 136/82 02/09/18 12:00 Pulse Ox 94 L 02/09/18 12:00 Intake & Output 02/08/18 02/09/18 02/09/18 18:59 06:59 18:59 Intake Total 2038.824 5769.436 1027.564 Output Total 450 3950 400 Balance 881.222 -1647.564 627.564 Weight 98.1 kg Intake: IV 800 800 800 Sodium Chloride 0.9% 1, 800 800 800 000 ml @ 100 mls/hr IV . Q10H CYNDIE Rx#:[id number] Intake, IV Titration 91.222 222.436 27.564 Amount Heparin Sod,Pork in 0.45% 91.222 222.436 27.564 NaCl 25,000 unit In 0.45 % NaCl 1 250ml.bag @ 10.3 UNITS/KG/HR 10.04 mls/hr IV .Q24H CYNDIE Rx#: [id number] Oral 440 1280 200 Output: Urine 450 1950 400 Other 2000 Other: Voiding Method Urinal Urinal Urinal - Labs CBC & Chem 7: 02/09/18 05:29 02/09/18 05:29 Labs: Abnormal Lab Results - Last 24 Hours (Table) 02/08/18 02/09/18 02/09/18 Range/Units 13:15 05:29 05:29 RBC 3.71 L (4.30-5.90) m/uL Hgb 10.3 L (13.0-17.5) gm/dL Hct 31.8 L (39.0-53.0) % APTT 66.0 H (22.0-30.0) sec Chloride 109 H (98-107) mmol/L Carbon Dioxide 20 L (22-30) mmol/L BUN 27 H (9-20) mg/dL Creatinine 1.36 H (0.66-1.25) mg/dL Glucose 112 H (74-99) mg/dL 02/09/18 02/09/18 Range/Units 05:36 12:27 RBC (4.30-5.90) m/uL Hgb (13.0-17.5) gm/dL Hct (39.0-53.0) % APTT 39.0 H 70.7 H (22.0-30.0) sec Chloride (98-107) mmol/L Carbon Dioxide (22-30) mmol/L BUN (9-20) mg/dL Creatinine (0.66-1.25) mg/dL Glucose (74-99) mg/dL Assessment and Plan Plan: Assessment: 1. Nonoliguric acute kidney injury mostly prerenal secondary to intravascular volume depletion from vomiting and diarrhea. Creatinine was 5.3 on admission and is down to 1.36 today. 2. Metabolic acidosis secondary to acute kidney injury and IV fluids. Better. 3. Hypercalcemia secondary to volume contraction. Improved with IV hydration. 4. Lower extremity ischemia being followed by vascular surgery. 5. Benign hypertension. Controlled. Plan: Maintain normal saline at 100 mL an hour - can likely Hep-Lock tomorrow. Maintain oral sodium bicarbonate. Avoid nephrotoxins. Repeat electrolytes in the morning.
--- NOTE | 2018-02-09 15:09 | P.PN ---
Subjective Progress Note Date: 02/09/18 Principal diagnosis: Left lower extremity acute ischemia Patient seen and examined. Doing well today. States pain in his left foot is improved since his admission. He does describe pain with ambulation as well as burning sensation in his foot and toes when he walks. He denies any f/c/n/v/cp or sob. He states he is cleared for discharge from nephrology standpoint. Objective - Vital Signs Vital signs: Vital Signs Temp 98.1 F 02/09/18 12:00 Pulse 80 02/09/18 12:00 Resp 18 02/09/18 12:00 BP 136/82 02/09/18 12:00 Pulse Ox 94 L 02/09/18 12:00 Intake & Output 02/08/18 02/09/18 02/09/18 18:59 06:59 18:59 Intake Total 9918.655 3206.436 1027.564 Output Total 450 3950 400 Balance 881.222 -1647.564 627.564 Weight 98.1 kg Intake: IV 800 800 800 Sodium Chloride 0.9% 1, 800 800 800 000 ml @ 100 mls/hr IV . Q10H CYNDIE Rx#:[id number] Intake, IV Titration 91.222 222.436 27.564 Amount Heparin Sod,Pork in 0.45% 91.222 222.436 27.564 NaCl 25,000 unit In 0.45 % NaCl 1 250ml.bag @ 10.3 UNITS/KG/HR 10.04 mls/hr IV .Q24H CYNDIE Rx#: [id number] Oral 440 1280 200 Output: Urine 450 1950 400 Other 2000 Other: Voiding Method Urinal Urinal Urinal - Exam Palpable PT pulse right lower extremity. + multiphasic doppler signal AT and PT on the left. Capillary refill noted. No tenderness of the left foot and toes. - Constitutional General appearance: Present: cooperative, no acute distress - EENT Eyes: Present: PERRLA - Respiratory Respiratory: bilateral: CTA - Cardiovascular Rhythm: regular - Gastrointestinal General gastrointestinal: Absent: distended - Integumentary Integumentary: Absent: calor, cellulitis, jaundiced - Psychiatric Psychiatric: Present: A&O x's 3, appropriate affect - Labs CBC & Chem 7: 02/09/18 05:29 02/09/18 05:29 Labs: Abnormal Lab Results - Last 24 Hours (Table) 02/09/18 02/09/18 02/09/18 Range/Units 05:29 05:29 05:36 RBC 3.71 L (4.30-5.90) m/uL Hgb 10.3 L (13.0-17.5) gm/dL Hct 31.8 L (39.0-53.0) % APTT 39.0 H (22.0-30.0) sec Chloride 109 H (98-107) mmol/L Carbon Dioxide 20 L (22-30) mmol/L BUN 27 H (9-20) mg/dL Creatinine 1.36 H (0.66-1.25) mg/dL Glucose 112 H (74-99) mg/dL 02/09/18 Range/Units 12:27 RBC (4.30-5.90) m/uL Hgb (13.0-17.5) gm/dL Hct (39.0-53.0) % APTT 70.7 H (22.0-30.0) sec Chloride (98-107) mmol/L Carbon Dioxide (22-30) mmol/L BUN (9-20) mg/dL Creatinine (0.66-1.25) mg/dL Glucose (74-99) mg/dL Assessment and Plan (1) Acute kidney injury (nontraumatic) Current Visit: Yes Status: Acute Priority: High Code(s): N17.9 - ACUTE KIDNEY FAILURE, UNSPECIFIED SNOMED Code(s): 130659975684747 (2) Acute vomiting Current Visit: Yes Status: Acute Priority: Low Code(s): R11.10 - VOMITING , UNSPECIFIED SNOMED Code(s): 95211657 (3) Dehydration Current Visit: Yes Status: Acute Priority: Medium Code(s): E86.0 - DEHYDRATION SNOMED Code(s): 33571232 (4) Limb ischemia Current Visit: Yes Status: Acute Priority: High Code(s): I99.8 - OTHER DISORDER OF CIRCULATORY SYSTEM SNOMED Code(s): 27785676316862 Plan: Initiate coumadin today. Ok to bridge as outpatient with lovenox. Discussed options for intervention as outpatient once his renal function is stabilized. Would recommend arterial doppler as outpatient. Follow up in 1-2 weeks with myself or Dr. Randall.
[2018-02-09] MEDS: WARFARIN 10 MG TAB PO SCH (18:17)
--- NOTE | 2018-02-09 20:07 | PN ---
PROGRESS NOTE DATE OF SERVICE: 02/09/2018 This 62-year-old gentleman with a past medical history of multiple medical problems was admitted with left leg pain. The patient had severe acute renal failure also after vomiting. The patient recently had [facility] after IV heparin. The patient seemed to be improving at this time. Dr. Rollins has recommended initiated Coumadin 10 mg p.o. today and monitor closely and possibly Lovenox bridging also. PAST MEDICAL HISTORY: Reviewed. REVIEW OF SYSTEMS: CARDIOVASCULAR: No angina. Respirations: As mentioned earlier. GI: As mentioned earlier. : No dysuria. Central nervous system: No numbness, weakness. CURRENT MEDICATIONS ARE: Reviewed and include: 1. Tylenol 500 mg q.6h p.r.n. 2. Xanax 0.5 t.i.d. 3. Norvasc 5 mg. 4. Aspirin 81 mg. 5. Catapres 0.1 b.i.d. 6. Lexapro 20 mg. 7. Heparin. 8. Synthroid 75 mcg. 9. Ativan. 10.Narcan. 12.Zofran. 13.Protonix. 14.Restoril. 15.Coumadin 10 mg. PHYSICAL EXAM: Patient is alert, oriented x3, pulse 69, blood pressure 130/72, respiration 20, temperature normal, pulse ox 94% on room air. HEENT: Conjunctivae normal. Oral mucosa moist. NECK is no jugular venous distention. No carotid bruit. No lymph node enlargement. CARDIOVASCULAR: S1, S2. RESPIRATORY: Breath sounds diminished in the bases. Scattered rhonchi and crackles. ABDOMEN: Soft, nontender. Legs are no edema. No swelling. CENTRAL NERVOUS SYSTEM: No focal deficits. LAB STUDIES: At this time show WBC 8.1, hemoglobin 10.3, sodium 130, potassium 4.3, and creatinine is 1.36. ASSESSMENT: 1. Severe acute renal failure possibly prerenal acute renal failure with acute tubular necrosis secondary to dehydration and vomiting. 2. Possible acute gastritis. 3. Peripheral artery disease of the left leg on IV heparin. 4. Hypercalcemia, present on admission possibly secondary to dehydration. 5. Increased WBC possibly reactive. 6. History of recent arterial occlusion of the left leg as well as artery graft and thrombus extraction from [facility]. 7. Coronary artery disease history. 8. History of gastroesophageal reflux disease. 9. Hypertension. 10.History of hyperlipidemia. 11.History of myocardial infarction. 12.History of degenerative joint disease. 13.History of syncope. 14.History of chronic low back pain. 15.History of irritable bowel syndrome. 16.History of migraines. 17.History of coronary artery disease, stent. 18.History of depression. 19.Remote history of nicotine dependence. 20.Medical marijuana. RECOMMENDATIONS AND DISCUSSION: Recommend to continue current medications, management and symptomatic treatment. Monitor creatinine closely. Otherwise, continue with IV heparin, Coumadin [address] Rollins is recommending 10 mg tomorrow also and also bridged with Lovenox with INR still subtherapeutic. Otherwise, we will follow the patient in the outpatient setting. Continue the current medication. Overall prognosis is extremely guarded because of multiple complex medical issues. Further recommendations to follow. PAULINA / MAURO: [id number] / MTDD
[2018-02-09 23:33] VITALS: RESP 16
[2018-02-10] MEDS: MORPHINE SULFATE 4 MG/ML SYRINGE IV PRN ×3 (00:53→09:59)
[2018-02-10] MEDS: TEMAZEPAM 15 MG CAP PO PRN (00:53)
[2018-02-10] MEDS: HEPARIN SOD,PORK IN 0.45% NACL 25,000 UNIT in 0.45% NACL 1 250ML.BAG IV SCH (03:09)
[2018-02-10] MEDS: SODIUM CHLORIDE 0.9% 1,000 ML IV SCH ×2 (05:04→08:03)
[2018-02-10 05:19] LABS: Basophils % (A) 0 %; Eosinophils # (A) 0.1 k/uL (0-0.7); Eosinophils % (A) 2 %; HCT 32.7 % (39.0-53.0); HGB 10.6 gm/dL (13.0-17.5); Hypochromasia Slight; Lymphocytes # (A) 2.1 k/uL (1.0-4.8); Lymphocytes % (A) 30 %; MCH 27.7 pg (25.0-35.0); MCHC 32.5 g/dL (31.0-37.0); MCV 85.3 fL (80.0-100.0); Mean Platelet Volume 7.8; Monocytes # (A) 0.5 k/uL (0-1.0); Monocytes % (A) 7 %; Neutrophils # (A) 4.1 k/uL (1.3-7.7); Neutrophils % (A) 58 %; Platelet Count 160 k/uL (150-450); Poikilocytosis Slight; RBC 3.84 m/uL (4.30-5.90); RDW 14.4 % (11.5-15.5)
[2018-02-10 05:31] LABS: Calcium 9.4 mg/dL (8.4-10.2); Potassium 4.4 mmol/L (3.5-5.1)
[2018-02-10] MEDS: LEVOTHYROXINE 75 MCG TAB PO SCH (06:30)
[2018-02-10] MEDS: ESCITALOPRAM 20 MG TAB PO SCH (08:04)
[2018-02-10] MEDS: amLODIPine 5 MG TAB PO SCH (08:04)
[2018-02-10] MEDS: PANTOPRAZOLE 40 MG TABLET PO SCH (08:04)
[2018-02-10] MEDS: SODIUM BICARBONATE TAB 650 MG TAB PO SCH (08:04)
[2018-02-10] MEDS: ASPIRIN 81 MG PO SCH (08:04)
[2018-02-10] MEDS: cloNIDine HCL 0.1 MG TAB PO SCH (08:04)
--- NOTE | 2018-02-10 10:09 | P.PN ---
Subjective Patient is seen in follow-up for acute kidney injury. Renal function is improving with creatinine down to 1.12 today. It was 5.34 on admission. He is maintained on normal saline at 100 mL an hour. No vomiting or diarrhea. Oral intake is good. No active complaints at this time. Potential discharge home today. Vital signs are stable. General: The patient appeared well nourished and normally developed. HEENT: Head exam is unremarkable. Neck is without jugular venous distension. LUNGS: Lungs are clear to auscultation and percussion. Breath sounds decreased. HEART: Rate and Rhythm are regular. First and second heart sounds normal. No murmurs, rubs or gallops. ABDOMEN: Abdominal exam reveals normal bowel sounds. Non-tender and non- distended. No evidence of peritonitis. EXTREMITITES: No clubbing, cyanosis, or edema. Objective - Vital Signs Vital signs: Vital Signs Temp 98.1 F 02/10/18 04:00 Pulse 65 02/10/18 04:00 Resp 16 02/10/18 04:00 BP 127/90 02/10/18 04:00 Pulse Ox 97 02/10/18 04:00 Intake & Output 02/09/18 02/10/18 02/10/18 18:59 06:59 18:59 Intake Total 7724.259 8582 Output Total 400 350 Balance 1527.564 780 Weight 97.3 kg Intake: IV 1200 400 Sodium Chloride 0.9% 1, 1200 400 000 ml @ 100 mls/hr IV . Q10H CYNDIE Rx#:[id number] Intake, IV Titration 27.564 250 Amount Heparin Sod,Pork in 0.45% 27.564 250 NaCl 25,000 unit In 0.45 % NaCl 1 250ml.bag @ 10.3 UNITS/KG/HR 10.04 mls/hr IV .Q24H CYNDIE Rx#: [id number] Oral 700 480 Output: Urine 400 350 Other: Voiding Method Urinal Urinal # Voids 2 1 - Labs CBC & Chem 7: 02/10/18 04:48 02/10/18 04:48 Labs: Abnormal Lab Results - Last 24 Hours (Table) 02/09/18 02/10/18 02/10/18 Range/Units 12:27 04:48 04:48 RBC 3.84 L (4.30-5.90) m/uL Hgb 10.6 L (13.0-17.5) gm/dL Hct 32.7 L (39.0-53.0) % APTT 70.7 H (22.0-30.0) sec Chloride 109 H (98-107) mmol/L Glucose 100 H (74-99) mg/dL 02/10/18 Range/Units 04:48 RBC (4.30-5.90) m/uL Hgb (13.0-17.5) gm/dL Hct (39.0-53.0) % APTT 63.5 H (22.0-30.0) sec Chloride (98-107) mmol/L Glucose (74-99) mg/dL Assessment and Plan Plan: Assessment: 1. Nonoliguric acute kidney injury mostly prerenal secondary to intravascular volume depletion from vomiting and diarrhea. Creatinine was 5.3 on admission and is down to 1.12 today. 2. Metabolic acidosis secondary to acute kidney injury and IV fluids. Better. 3. Hypercalcemia secondary to volume contraction. Improved with IV hydration. 4. Lower extremity ischemia being followed by vascular surgery. 5. Benign hypertension. Controlled. Plan: Hep-Lock IV fluids. Discontinue oral bicarb. Stable to be discharged home from nephrology standpoint. Follow up outpatient in the next 2 weeks.
[2018-02-10 11:51] LABS: Prothrombin Time 10.5 sec (9.0-12.0)
[2018-02-10 13:21] VITALS: TEMP 97
[2018-02-10] MEDS ORDERED: WARFARIN 10 MG TAB PO ONE (16:34)
[2018-02-10] MEDS: WARFARIN 10 MG TAB PO SCH (18:50)
[2018-02-10 18:52] VITALS: BP 145/84; PULSE 69
--- NOTE | 2018-02-10 22:26 | DS ---
DISCHARGE SUMMARY FINAL DIAGNOSES: 1. Severe acute renal failure possibly prerenal, acute renal failure with acute tubular necrosis secondary to dehydration and vomiting. 2. Significant peripheral arteries of the left leg status post IV heparin. 3. Possible acute gastritis. 4. Hypercalcemia, possibly secondary to dehydration present on admission. 5. Increased WBC possibly reactive. 6. History of recent arterial occlusion of the left leg as well as arteriogram and thrombus extraction at [facility]. 7. Coronary artery disease history. 8. History of gastroesophageal reflux disease. 9. Hypertension. 10.History of hyperlipidemia. 11.History of myocardial infarction. 12.History of degenerative joint disease. 13.History of syncope. 14.History of chronic low back pain. 15.History of irritable bowel syndrome. 16.History of migraines. 17.History of coronary artery disease, stent. 18.History of depression. 19.Remote history of nicotine dependence. 20.Medical marijuana. DISCHARGE DISPOSITION: The patient being discharged in stable condition with guarded prognosis. Total time taken: 35 minutes. HISTORY OF PRESENT ILLNESS: This 62-year-old gentleman with past medical history of multiple medical problems being followed by Dr. Miki Nava in the outpatient setting recently had vascular procedure in [facility] for severe arterial occlusion as mentioned earlier. The patient presented with multiple medical problems including vomiting, nausea, acute renal failure, as the patient had previously and as well as some occlusion of the left leg. Dr. Rollins from vascular surgery saw the patient. Intravenous heparin was administered. The patient improved significantly with IV fluids and nephrology evaluation. Creatinine also improved and currently is stands at 1.12, which is normal. The INR is 1. The patient being discharged in stable condition with guarded prognosis. Dr. Rollins is recommending Coumadin 5 mg daily and Lovenox bridging also. Outpatient follow up. On exam, vitals are stable. Cardiovascular: S1. S2. focal Abdomen soft. Central nervous system: No focal deficits. DISCHARGE ADVICE AND MEDICATIONS: 1. Discharge diet is cardiac diet. 2. Activity limited until followup. 3. Follow up with Dr. Nava in 2-3 days with CBC, BMP, PT/INR. 4. No Xarelto. 5. Follow up with Dr. Rollins as advised. MEDICATIONS ARE: 1. Norvasc 5 mg. 2. Ecotrin 81 mg. 3. Clonidine 0.1 p.o. b.i.d. 4. Lexapro 20 mg daily. 5. Synthroid 75 mcg. 6. Ativan 0.1 mg q.h.s. 7. Nitrostat 0.4 mg sublingual p.r.n. 8. Omeprazole 20 mg daily. 9. Tylenol p.r.n. 10.Lovenox 150 mg subcu daily for 5 days until the INR more than 2. 11.Coumadin 5 mg p.o. daily. PT/INR to be closely monitored in the outpatient setting by Dr. aNva. PAULINA / MAURO: [id number] /
== END 2018-02-10 18:59 | disposition home health service (06) | DRG 683 ==
LOC: EC 12:24 → 3SCARD 16:33 → 2SICU 22:35
PROVIDERS: ADMIT Internal Medicine; ATTEND Internal Medicine
DX: N17.0 Acute kidney failure with tubular necrosis (principal); E87.2 Acidosis; E83.52 Hypercalcemia; E86.0 Dehydration; I99.8 Other disorder of circulatory system; E78.5 Hyperlipidemia, unspecified; I10 Essential (primary) hypertension; E03.9 Hypothyroidism, unspecified; F32.9 Major depressive disorder, single episode, unspecified; I25.10 Atherosclerotic heart disease of native coronary artery without angina pectoris; K21.9 Gastro-esophageal reflux disease without esophagitis; M19.90 Unspecified osteoarthritis, unspecified site; M54.5 Low back pain; G89.29 Other chronic pain; K58.0 Irritable bowel syndrome with diarrhea; I73.9 Peripheral vascular disease, unspecified; G43.909 Migraine, unspecified, not intractable, without status migrainosus; M51.36 Other intervertebral disc degeneration, lumbar region; I25.2 Old myocardial infarction; K44.9 Diaphragmatic hernia without obstruction or gangrene; Z79.01 Long term (current) use of anticoagulants; Z79.82 Long term (current) use of aspirin; Z79.890 Hormone replacement therapy; Z79.899 Other long term (current) drug therapy; Z87.891 Personal history of nicotine dependence; Z90.49 Acquired absence of other specified parts of digestive tract; Z87.01 Personal history of pneumonia (recurrent); Z87.19 Personal history of other diseases of the digestive system; Z95.5 Presence of coronary angioplasty implant and graft; Z87.81 Personal history of (healed) traumatic fracture; Z83.49 Family history of other endocrine, nutritional and metabolic diseases; Z82.49 Family history of ischemic heart disease and other diseases of the circulatory system; Z83.3 Family history of diabetes mellitus; Z80.8 Family history of malignant neoplasm of other organs or systems; Z86.718 Personal history of other venous thrombosis and embolism
CPT/HCPCS: 36415; 80048; 80053; 81001; 83605; 83735; 85025; 85610; 85730; 93005; 96365; 96366; 96375; 96376; 99285

== ENCOUNTER → 2018-06-23 | Outpatient (CLI) | payer MEDICARE ==
[2018-06-23 16:17] LABS: INR 2.2 (<1.2); Prothrombin Time 21.1 sec (9.0-12.0)
== END ==
LOC: LABWHC1 15:31
PROVIDERS: ATTEND Family Medicine
DX: Z51.81 Encounter for therapeutic drug level monitoring (principal); Z79.01 Long term (current) use of anticoagulants
CPT/HCPCS: 36415; 85610

== ENCOUNTER 2018-10-30 20:15 | Inpatient (IN) | payer MEDICARE ==
[2018-10-30] MEDS ORDERED: SODIUM CHLORIDE 0.9% 1,000 ML IV STA ×2 (20:41→23:49)
[2018-10-30] MEDS ORDERED: ASPIRIN 81 MG PO STA (20:48)
[2018-10-30] MEDS ORDERED: ONDANSETRON 4 MG/2 ML VIAL IVP STA (20:53)
--- NOTE | 2018-10-30 20:55 | ED ---
General Adult HPI - General Chief complaint: Chest Pain Stated complaint: Dehydrated, chest pain Time Seen by Provider: 10/30/18 20:35 Source: patient Mode of arrival: wheelchair Limitations: no limitations - History of Present Illness Initial comments: Dictation was produced using [employer] dictation software. please excuse any grammatical, word or spelling errors. Chief Complaint: 63 yo male presents with nausea vomiting, diarrhea, chest pain and total body cramping. History of Present Illness: Patient is a 63-year-old male. Over the last several days she's been having multiple complaints. Redirected asked why he is here in emergency department today he states he is currently worried about his nausea, vomiting, diarrhea, chest pain and total body cramps. Patient has multiple comorbidities previous history of coronary artery disease, hypertension, dyslipidemia. She reports that he feels dehydrated. He thinks he is in acute renal failure because he's had it before. Patient states he has chest pain. He states to his anterior chest diffusely. Denies any radiation to the back. Patient denies any radiation to the upper extremities or jaw. Does state that he gets a little diaphoretic with it. Patient has history of multiple cardiac stents performed by oven roaster. He is unable to tell me when his last cardiac stent was placed. He denies any fever, chills or night sweats. Patient denies any abdominal pain. Patient is an unreliable historian at this time., Total body cramping and chest pain. The ROS documented in this emergency department record has been reviewed and confirmed by me. Those systems with pertinent positive or negative responses have been documented in the HPI. All other systems are other negative and/or noncontributory. PHYSICAL EXAM: General Impression: Alert and oriented x3, coughing up spit HEENT: Normocephalic atraumatic, extra-ocular movements intact, pupils equal and reactive to light bilaterally, mucous membranes moist. Cardiovascular: Heart regular rate and rhythm, S1&S2 audible, no murmurs, rubs or gallops Chest: No diffuse wheezing Abdomen: Bowel sounds present, abdomen soft, non-tender, non-distended, no organomegaly, obese Musculoskeletal: Pulses present and equal in all extremities, no peripheral edema Motor: no focal deficits noted Neurological: CN II-XII grossly intact, no focal motor or sensory deficits noted Skin: Intact with no visualized rashes ED course: 63-year-old male presents with nausea, vomiting, diarrhea vital signs upon arrival shows heart rate of 112, respiratory signs within acceptable limits. Patient is unreliable. He has multiple complaints today. When asked what his main complaint is that he states that it's mostly his nausea vomiting diarrhea.Return evaluation obtained. CBC unremarkable. Coag panel unrema rkable. Blood gas was obtained because patient has elevated anion gap acidosis. PH is 7.3 pCO2 34 and bicarb of 20. Patient's creatinine is elevated 1. 9/22. Lactic acidosis. Rest of labs grossly unremarkable. Chart review was performed. Patient was evaluated by by nephrology on multiple occasions for the same complaint. Patient has had multiple bouts of acute kidney injury. After review of nephrology notes it appears that it's likely secondary to poor oral intake. Patient denies any toxic ingestion. Denies any alcohol ingestion. Discussed patient case with Dr. Miki Nava was fully with the patient. He is willing to accept patients care. Request that we give him 2 L of intravenous fluids and he will repeat labs in the morning. EKG interpretation: Ventricular rate 94, normal sinus rhythm,. Interval 90, QS 90, QTC 472. No CT prolongation, no QTC prolongation, no ST or T-wave changes noted. Compared to EKG from 07/08/2089 without any acute processes. Overall, this EKG is unremarkable - Related Data Home Medications Medication Instructions Recorded Confirmed cloNIDine HCL [Clonidine HCl] 0.1 mg PO BID 11/16/15 10/30/18 Levothyroxine Sodium [Synthroid] 75 mcg PO DAILY 05/04/16 10/30/18 Omeprazole 20 mg PO DAILY 05/04/16 10/30/18 Nitroglycerin Sl Tabs [Nitrostat] 0.4 mg SUBLINGUAL Q5M PRN 07/19/16 10/30/18 Escitalopram [Lexapro] 20 mg PO DAILY 12/16/16 10/30/18 amLODIPine [Norvasc] 5 mg PO DAILY 02/07/18 10/30/18 Warfarin [Coumadin] 5 mg PO TUSA 10/30/18 10/30/18 Warfarin [Coumadin] 7.5 mg PO SUMOWETHFR 10/30/18 10/30/18 Allergies Allergy/AdvReac Type Severity Reaction Status Date / Time Beta-Blockers Allergy Rash/Hives Verified 10/30/18 22:13 (Beta-Adrenergic Bloc paroxetine HCl [From Paxil] AdvReac Unknown Abdominal Verified 10/30/18 22:13 Pain gabapentin AdvReac Abdominal Verified 10/30/18 22:13 Pain Review of Systems ROS Statement: Those systems with pertinent positive or pertinent negative responses have been documented in the HPI. ROS Other: All systems not noted in ROS Statement are negative. Past Medical History Past Medical History: Coronary Artery Disease (CAD), Chest Pain / Angina, GERD/Reflux, Hyperlipidemia, Hypertension, Myocardial Infarction ([place]), Musculoskeletal Disorder, Osteoarthritis (OA), Renal Disease, Syncope, Thyroid Disorder Additional Past Medical History / Comment(s): Chronic low back pain DIVERTICULITIS, IBS, renal insufficiency with dehydration. Hx bronchitis & pneumonia, migraines, SMALL HIATAL HERNIA.lumbar ddd(pain clinic procedures) Last Myocardial Infarction Date:: 2013 History of Any Multi-Drug Resistant Organisms: None Reported Past Surgical History: Back Surgery, Cholecystectomy, Heart Catheterization With Stent, Hernia Repair, Orthopedic Surgery Additional Past Surgical History / Comment(s): COLONOSCOPY, EGD, ORIF LT ANKLE, L ANKLE SX, BACK SURGERIES fusion L3-L5, LT HAND SURGERY D/T FRACTURE, RT KNEE ARTHROSCOPIC X 2, RT ELBOW TENDON RELEASE SURG, LUMBAR SPINE CYST REMOVAL, HIATAL HERNIA REPAIR, right shoulder arthroscopy, back injections. PAIN CLINIC. DVT removed left leg Past Anesthesia/Blood Transfusion Reactions: No Reported Reaction Date of Last Stent Placement:: 2013 Past Psychological History: Depression Smoking Status: Former smoker Past Alcohol Use History: Rare Past Drug Use History: Marijuana - Past Family History Mother Family Medical History: Thyroid Disorder Additional Family Medical History / Comment(s): Mother is living. Father Family Medical History: Coronary Artery Disease (CAD), Diabetes Mellitus Additional Family Medical History / Comment(s): triple bypass Sister(s) Family Medical History: Cancer, Thyroid Disorder Additional Family Medical History / Comment(s): SKIN CA/ #2 sister had thyroid cancer General Exam Limitations: no limitations Course Vital Signs 10/30/18 10/30/18 10/30/18 20:28 20:44 21:20 Temperature 97.8 F Pulse Rate 112 H 80 Respiratory 22 24 22 Rate Blood Pressure 158/90 145/97 O2 Sat by Pulse 98 Oximetry 10/30/18 10/30/18 10/30/18 21:40 22:00 22:10 Temperature Pulse Rate 79 80 78 Respiratory 16 8 L 4 L Rate Blood Pressure 145/93 146/87 151/96 O2 Sat by Pulse Oximetry 10/30/18 10/30/18 10/30/18 22:20 22:40 23:00 Temperature Pulse Rate 77 78 73 Respiratory 5 L 4 L 7 L Rate Blood Pressure 139/87 143/87 136/82 O2 Sat by Pulse Oximetry Medical Decision Making - Lab Data Result diagrams: 10/30/18 20:55 10/30/18 20:55 Lab Results 10/30/18 10/30/18 10/30/18 Range/Units 20:55 20:55 20:55 WBC 10.4 (3.8-10.6) k/uL RBC 5.86 (4.30-5.90) m/uL Hgb 15.7 (13.0-17.5) gm/dL Hct 46.4 (39.0-53.0) % MCV 79.1 L (80.0-100.0) fL MCH 26.8 (25.0-35.0) pg MCHC 33.9 (31.0-37.0) g/dL RDW 16.5 H (11.5-15.5) % Plt Count 339 (150-450) k/uL Neutrophils % 84 % Lymphocytes % 10 % Monocytes % 4 % Eosinophils % 1 % Basophils % 1 % Neutrophils # 8.7 H (1.3-7.7) k/uL Lymphocytes # 1.0 (1.0-4.8) k/uL Monocytes # 0.4 (0-1.0) k/uL Eosinophils # 0.1 (0-0.7) k/uL Basophils # 0.1 (0-0.2) k/uL Anisocytosis Slight Microcytosis Slight PT 14.4 H (9.0-12.0) sec INR 1.4 H (<1.2) APTT 27.8 (22.0-30.0) sec VBG pH (7.31-7.41) VBG pCO2 (37-51) mmHg VBG HCO3 (24-28) mmol/L Sodium 140 (137-145) mmol/L Potassium 4.4 (3.5-5.1) mmol/L Chloride 102 (98-107) mmol/L Carbon Dioxide 16 L (22-30) mmol/L Anion Gap 22 mmol/L BUN 22 H (9-20) mg/dL Creatinine 1.95 H (0.66-1.25) mg/dL Est GFR (CKD-EPI)AfAm 41 (>60 ml/min/1.73 sqM) Est GFR (CKD-EPI)NonAf 35 (>60 ml/min/1.73 sqM) Glucose 157 H (74-99) mg/dL Osmolality (280-301) mosm/kg Plasma Lactic Acid Chacorta (0.7-2.0) mmol/L Calcium 11.3 H (8.4-10.2) mg/dL Magnesium 1.9 (1.6-2.3) mg/dL Total Bilirubin 1.3 (0.2-1.3) mg/dL AST 33 (17-59) U/L ALT 28 (21-72) U/L Alkaline Phosphatase 132 H (38-126) U/L Creatine Kinase 329 H (55-170) U/L Troponin I (0.000-0.034) ng/mL Total Protein 9.3 H (6.3-8.2) g/dL Albumin 5.6 H (3.5-5.0) g/dL Lipase 100 (23-300) U/L 10/30/18 10/30/18 10/30/18 Range/Units 20:55 20:55 23:15 WBC (3.8-10.6) k/uL RBC (4.30-5.90) m/uL Hgb (13.0-17.5) gm/dL Hct (39.0-53.0) % MCV (80.0-100.0) fL MCH (25.0-35.0) pg MCHC (31.0-37.0) g/dL RDW (11.5-15.5) % Plt Count (150-450) k/uL Neutrophils % % Lymphocytes % % Monocytes % % Eosinophils % % Basophils % % Neutrophils # (1.3-7.7) k/uL Lymphocytes # (1.0-4.8) k/uL Monocytes # (0-1.0) k/uL Eosinophils # (0-0.7) k/uL Basophils # (0-0.2) k/uL Anisocytosis Microcytosis PT (9.0-12.0) sec INR (<1.2) APTT (22.0-30.0) sec VBG pH (7.31-7.41) VBG pCO2 (37-51) mmHg VBG HCO3 (24-28) mmol/L Sodium (137-145) mmol/L Potassium (3.5-5.1) mmol/L Chloride (98-107) mmol/L Carbon Dioxide (22-30) mmol/L Anion Gap mmol/L BUN (9-20) mg/dL Creatinine (0.66-1.25) mg/dL Est GFR (CKD-EPI)AfAm (>60 ml/min/1.73 sqM) Est GFR (CKD-EPI)NonAf (>60 ml/min/1.73 sqM) Glucose (74-99) mg/dL Osmolality 295 (280-301) mosm/kg Plasma Lactic Acid Chacorta 1.0 (0.7-2.0) mmol/L Calcium (8.4-10.2) mg/dL Magnesium (1.6-2.3) mg/dL Total Bilirubin (0.2-1.3) mg/dL AST (17-59) U/L ALT (21-72) U/L Alkaline Phosphatase (38-126) U/L Creatine Kinase (55-170) U/L Troponin I <0.012 (0.000-0.034) ng/mL Total Protein (6.3-8.2) g/dL Albumin (3.5-5.0) g/dL Lipase (23-300) U/L 10/30/18 Range/Units 23:15 WBC (3.8-10.6) k/uL RBC (4.30-5.90) m/uL Hgb (13.0-17.5) gm/dL Hct (39.0-53.0) % MCV (80.0-100.0) fL MCH (25.0-35.0) pg MCHC (31.0-37.0) g/dL RDW (11.5-15.5) % Plt Count (150-450) k/uL Neutrophils % % Lymphocytes % % Monocytes % % Eosinophils % % Basophils % % Neutrophils # (1.3-7.7) k/uL Lymphocytes # (1.0-4.8) k/uL Monocytes # (0-1.0) k/uL Eosinophils # (0-0.7) k/uL Basophils # (0-0.2) k/uL Anisocytosis Microcytosis PT (9.0-12.0) sec INR (<1.2) APTT (22.0-30.0) sec VBG pH 7.38 (7.31-7.41) VBG pCO2 34 L (37-51) mmHg VBG HCO3 20 L (24-28) mmol/L Sodium (137-145) mmol/L Potassium (3.5-5.1) mmol/L Chloride (98-107) mmol/L Carbon Dioxide (22-30) mmol/L Anion Gap mmol/L BUN (9-20) mg/dL Creatinine (0.66-1.25) mg/dL Est GFR (CKD-EPI)AfAm (>60 ml/min/1.73 sqM) Est GFR (CKD-EPI)NonAf (>60 ml/min/1.73 sqM) Glucose (74-99) mg/dL Osmolality (280-301) mosm/kg Plasma Lactic Acid Chacorta (0.7-2.0) mmol/L Calcium (8.4-10.2) mg/dL Magnesium (1.6-2.3) mg/dL Total Bilirubin (0.2-1.3) mg/dL AST (17-59) U/L ALT (21-72) U/L Alkaline Phosphatase (38-126) U/L Creatine Kinase (55-170) U/L Troponin I (0.000-0.034) ng/mL Total Protein (6.3-8.2) g/dL Albumin (3.5-5.0) g/dL Lipase (23-300) U/L Disposition Clinical Impression: JOSIE (acute kidney injury) Disposition: ADMITTED IP TO THIS HOSP Condition: Fair Referrals: Miki Nava DO [Primary Care Provider] - 1-2 days Decision Time: 23:52
[2018-10-30] MEDS ORDERED: HYDROmorphone 1 MG/ML 1 ML SYRINGE IVP STA (21:00)
--- NOTE | 2018-10-30 21:14 | XR ---
EXAMINATION TYPE: XR chest 1V portable DATE OF EXAM: 10/30/2018 COMPARISON: 07/13/2017 HISTORY: Chest pain TECHNIQUE: Single frontal view of the chest is obtained. FINDINGS: Heart and mediastinum are normal. Lungs are clear. Costophrenic angles are clear. There ar e no hilar masses. Thoracic aorta is atheromatous. There are chest leads. IMPRESSION: No active cardiopulmonary disease. There is clearing of the small infiltrate lateral lef t lung base compared to old exam.
[2018-10-30 21:15] LABS: Anisocytosis Slight; Basophils # (A) 0.1 k/uL (0-0.2); Basophils % (A) 1 %; Eosinophils # (A) 0.1 k/uL (0-0.7); Eosinophils % (A) 1 %; HCT 46.4 % (39.0-53.0); HGB 15.7 gm/dL (13.0-17.5); Lymphocytes % (A) 10 %; MCH 26.8 pg (25.0-35.0); MCHC 33.9 g/dL (31.0-37.0); MCV 79.1 fL (80.0-100.0); Mean Platelet Volume 7.3; Microcytosis Slight; Monocytes # (A) 0.4 k/uL (0-1.0); Monocytes % (A) 4 %; Neutrophils # (A) 8.7 k/uL (1.3-7.7); Neutrophils % (A) 84 %; Platelet Count 339 k/uL (150-450); RBC 5.86 m/uL (4.30-5.90); RDW 16.5 % (11.5-15.5); WBC 10.4 k/uL (3.8-10.6)
[2018-10-30 21:23] LABS: Albumin 5.6 g/dL (3.5-5.0); Calcium 11.3 mg/dL (8.4-10.2); INR 1.4 (<1.2); Magnesium 1.9 mg/dL (1.6-2.3); Partial Thromboplastin Time 27.8 sec (22.0-30.0); Potassium 4.4 mmol/L (3.5-5.1); Prothrombin Time 14.4 sec (9.0-12.0); Total Bilirubin 1.3 mg/dL (0.2-1.3); Total Protein 9.3 g/dL (6.3-8.2)
[2018-10-30] MEDS ORDERED: PANTOPRAZOLE 40 MG TABLET PO STA (22:52)
[2018-10-30 23:27] LABS: VBG PH 7.38 (7.31-7.41)
[2018-10-30] MEDS ORDERED: NITROGLYCERIN SL TABS 0.4 MG TAB SUBLINGUAL PRN (23:52)
[2018-10-31 03:12] LABS: Appearance,Urine Cloudy (Clear); Bacteria,Urine Rare /hpf; Bilirubin,Urine 1+ (Negative); Blood,Urine Negative (Negative); Color,Urine Dark Yellow; Glucose,Urine (UA) Trace (Negative); Granular Casts,Urine 18 /lpf (0); Hyaline Casts,Urine 284 /lpf (0-2); Ketones,Urine Trace (Negative); Leukocyte Esterase,Urine Small (Negative); Mucus,Urine Few /hpf; Nitrite,Urine Negative (Negative); PH, Urine 5.5 (5.0-8.0); Protein,Urine 2+ (Negative); RBC,Urine 2 /hpf (0-5); Specific Gravity,Urine 1.027 (1.001-1.035); Squamous Epithelial Cell,Urine 2 /hpf (0-4); Transitional Epi Cells,Urine <1 /hpf (0-1)
[2018-10-31 04:06] LABS: Calcium 9.6 mg/dL (8.4-10.2); Potassium 4.1 mmol/L (3.5-5.1)
[2018-10-31] MEDS: LEVOTHYROXINE 75 MCG TAB PO SCH (07:11)
[2018-10-31] MEDS ORDERED: PANTOPRAZOLE 40 MG TABLET PO SCH (07:30)
[2018-10-31] MEDS: ASPIRIN 325 MG TAB PO SCH (10:32)
[2018-10-31] MEDS: amLODIPine 5 MG TAB PO SCH (10:32)
[2018-10-31] MEDS: cloNIDine HCL 0.1 MG TAB PO SCH ×2 (10:32→20:56)
[2018-10-31] MEDS ORDERED: LORazepam 2 MG/ML INJ IV PRN ×3 (15:22)
[2018-10-31 15:41] LABS: Magnesium 2.1 mg/dL (1.6-2.3)
[2018-10-31 15:42] LABS: INR 1.4 (<1.2); Prothrombin Time 13.9 sec (9.0-12.0)
--- NOTE | 2018-10-31 15:42 | P.HPIM ---
History of Present Illness H&P Date: 10/31/18 Chief Complaint: Nausea ,vomiting, diarrhea, This 63-year-old gentleman with history of CAD, angina, [place], gastroesophageal reflux disease, hyperlipidemia, hypertension, cannabis gastroparesis, hypothyroidism, acute renal failure, osteoarthritis, alcohol abuse, multilevel back fusions, depression, former smoker and multiple other medical issues, presented to when necessary nausea vomiting, diarrhea. States he had consumed 6 beers On Tuesday and 6 beers on Tuesday, with minimal water intake and feels dehydrated. Denies fever or chills or diaphoresis. Complains of chronic hiatal hernia chronic knee, chronic back pain, denies chest pain. Troponins negative 3, EKG normal sinus rhythm, systolic blood pressures ranging from 120s to 160s. Chest x-ray nonacute. Maintaining O2 sats in the high 90s on 2 L nasal cannula which can be weaned off. Received 2 L IV fluid boluses in the ER. BUN 22, creatinine 1.95 on admission, currently 24/1.35. Elevated LFTs; alk phos 132, creatinine kinase 329. INR 1.4. UA with rare bacteria WBC 5, small leukocytes 2+ urine protein, 284 hyaline casts. Review of Systems ROS Statement: Those systems with pertinent positive or pertinent negative responses have been documented in the HPI. ROS Other: All systems not noted in ROS Statement are negative. Past Medical History Past Medical History: Coronary Artery Disease (CAD), Chest Pain / Angina, GERD/Reflux, Hyperlipidemia, Hypertension, Myocardial Infarction ([place]), Muscu loskeletal Disorder, Osteoarthritis (OA), Pneumonia, Renal Disease, Syncope, Thyroid Disorder Additional Past Medical History / Comment(s): Episodes of acute renal failure associated with dehydration, diverticulitis, IBS, return of hiatal hernia, bronchitis, hypothyroid, chronic low back pain with bilateral sciatica, lumbar DDD, past migraines, DJD, numbness tingling bilateral great toes/feet, 4 DVTs L leg surgically removed. Last Myocardial Infarction Date:: 2013 History of Any Multi-Drug Resistant Organisms: None Reported Past Surgical History: Back Surgery, Cholecystectomy, Heart Catheterization, Heart Catheterization With Stent, Hernia Repair, Orthopedic Surgery Additional Past Surgical History / Comment(s): Back fusions L3-L5, ORIF L ankle, L hand fracture with surgery, R knee arthroscopy x2, R elbow tendon release, R shoulder arthroscopy, lumbar spine cyst removed, pain clinic procedures, taylor fundoplication, EGD, colonoscopy, 2019 arteriogram/thrombus extraction at [facility]. Past Anesthesia/Blood Transfusion Reactions: No Reported Reaction Date of Last Stent Placement:: 2013 Smoking Status: Former smoker - Past Family History Mother Family Medical History: Thyroid Disorder Additional Family Medical History / Comment(s): Mother is living. Father Family Medical History: Coronary Artery Disease (CAD) Additional Family Medical History / Comment(s): Father had CABG. He at the age of 84 yrs in a MVA. Sister(s) Family Medical History: Cancer, Thyroid Disorder Additional Family Medical History / Comment(s): SKIN CA/ #2 sister had thyroid cancer Medications and Allergies Home Medications Medication Instructions Recorded Confirmed Type cloNIDine HCL [Clonidine HCl] 0.1 mg PO BID 11/16/15 10/30/18 History Levothyroxine Sodium [Synthroid] 75 mcg PO DAILY 05/04/16 10/30/18 History Omeprazole 20 mg PO DAILY 05/04/16 10/30/18 History Nitroglycerin Sl Tabs [Nitrostat] 0.4 mg SUBLINGUAL Q5M PRN 07/19/16 10/30/18 History Escitalopram [Lexapro] 20 mg PO DAILY 12/16/16 10/30/18 History amLODIPine [Norvasc] 5 mg PO DAILY 02/07/18 10/30/18 History Warfarin [Coumadin] 5 mg PO TUSA 10/30/18 10/30/18 History Warfarin [Coumadin] 7.5 mg PO SUMOWETHFR 10/30/18 10/30/18 History Allergies Allergy/AdvReac Type Severity Reaction Status Date / Time Beta-Blockers Allergy Rash/Hives Verified 10/30/18 22:13 (Beta-Adrenergic Bloc paroxetine HCl [From Paxil] AdvReac Unknown Abdominal Verified 10/30/18 22:13 Pain gabapentin AdvReac Abdominal Verified 10/30/18 22:13 Pain Physical Exam Vitals: Vital Signs Temp Pulse Pulse Resp BP BP Pulse Ox 10/31/18 14:35 98.4 F 78 16 167/83 98 10/31/18 14:07 97.6 F 74 16 137/79 98 10/31/18 10:00 71 18 158/92 10/31/18 08:00 69 20 150/91 10/31/18 06:00 63 14 116/78 10/31/18 05:00 78 8 L 113/77 10/31/18 04:00 65 15 137/95 96 10/31/18 03:00 68 14 131/77 95 10/31/18 02:00 71 15 134/80 93 L 10/31/18 01:40 70 5 L 142/87 96 10/31/18 01:28 97.9 F 74 18 128/83 97 10/31/18 01:20 78 19 128/83 96 10/31/18 01:10 72 6 L 136/85 95 10/31/18 00:50 75 10 L 129/80 95 10/31/18 00:40 74 5 L 145/72 96 10/31/18 00:20 74 5 L 142/88 95 10/31/18 00:10 72 5 L 122/68 96 10/30/18 23:50 73 15 124/63 95 10/30/18 23:30 77 8 L 137/94 91 L 10/30/18 23:03 76 10 L 145/89 10/30/18 23:00 73 7 L 136/82 10/30/18 22:40 78 4 L 143/87 10/30/18 22:20 77 5 L 139/87 10/30/18 22:10 78 4 L 151/96 10/30/18 22:00 80 8 L 146/87 10/30/18 21:40 79 16 145/93 10/30/18 21:20 80 22 145/97 10/30/18 20:44 24 10/30/18 20:28 97.8 F 112 H 22 158/90 98 Intake and Output 10/31/18 10/31/18 10/31/18 06:59 14:59 22:59 Output Total 80 Balance -80 Output: Urine 80 Other: # Voids 1 GENERAL: This is a 63-year-old male in no acute distress. Pleasant and cooperative. HEENT: Head is atraumatic, normocephalic. Pupils are equal, round, and reactive to light. Sclerae anicteric. Conjunctivae are clear. Mucus membranes of the mouth are moist. Neck is supple. RESPIRATORY: Clear to ausculation. No wheezes, rales, or rhonchi. No use of accessory muscles. Patient maintaining oxygen saturation greater than 92%. No chest wall tenderness is noted on palpation or with deep breathing. CARDIOVASCULAR: Regular rate and rhythm. S1 and S2 noted. No systolic or diastolic murmur auscultated. No JVD noted. No S3 or S4 noted. GASTROINTESTINAL: Soft, No distention noted. Abdomen soft and round. Normal active bowel sounds auscultated x 4 quadrants. No pain or tenderness noted upon palpation. INTEGUMENTARY: No cyanosis. No jaundice. No rashes noted. No cellulitis noted. EXTREMITIES: 2+ peripheral pulses. No evidence of peripheral edema. No calf ten derness noted. NEUROLOGIC: Cranial nerves II-XII intact. PSYCHIATRIC: Awake, alert, and oriented X 3. Appropriate affect. Intact judgement and insight. Results CBC & Chem 7: 10/30/18 20:55 10/31/18 03:26 Labs: Abnormal Lab Results - Last 24 Hours (Table) 10/30/18 10/30/18 10/30/18 Range/Units 20:55 20:55 20:55 MCV 79.1 L (80.0-100.0) fL RDW 16.5 H (11.5-15.5) % Neutrophils # 8.7 H (1.3-7.7) k/uL PT 14.4 H (9.0-12.0) sec INR 1.4 H (<1.2) VBG pCO2 (37-51) mmHg VBG HCO3 (24-28) mmol/L Carbon Dioxide 16 L (22-30) mmol/L BUN 22 H (9-20) mg/dL Creatinine 1.95 H (0.66-1.25) mg/dL Glucose 157 H (74-99) mg/dL Calcium 11.3 H (8.4-10.2) mg/dL Alkaline Phosphatase 132 H (38-126) U/L Creatine Kinase 329 H (55-170) U/L Total Protein 9.3 H (6.3-8.2) g/dL Albumin 5.6 H (3.5-5.0) g/dL Urine Protein (Negative) Urine Glucose (UA) (Negative) Urine Ketones (Negative) Urine Bilirubin (Negative) Ur Leukocyte Esterase (Negative) Urine Bacteria (None) /hpf Hyaline Casts (0-2) /lpf Urine Mucus (None) /hpf 10/30/18 10/31/18 10/31/18 Range/Units 23:15 02:20 03:26 MCV (80.0-100.0) fL RDW (11.5-15.5) % Neutrophils # (1.3-7.7) k/uL PT (9.0-12.0) sec INR (<1.2) VBG pCO2 34 L (37-51) mmHg VBG HCO3 20 L (24-28) mmol/L Carbon Dioxide 19 L (22-30) mmol/L BUN 24 H (9-20) mg/dL Creatinine 1.35 H (0.66-1.25) mg/dL Glucose 141 H (74-99) mg/dL Calcium (8.4-10.2) mg/dL Alkaline Phosphatase (38-126) U/L Creatine Kinase (55-170) U/L Total Protein (6.3-8.2) g/dL Albumin (3.5-5.0) g/dL Urine Protein 2+ H (Negative) Urine Glucose (UA) Trace H (Negative) Urine Ketones Trace H (Negative) Urine Bilirubin 1+ H (Negative) Ur Leukocyte Esterase Small H (Negative) Urine Bacteria Rare H (None) /hpf Hyaline Casts 284 H (0-2) /lpf Urine Mucus Few H (None) /hpf Thrombosis Risk Factor Assmnt - Choose All That Apply Any of the Below Risk Factors Present?: Yes Each Factor Represents 1 point: Obesity (BMI >25) Other Risk Factors: Yes Each Risk Factor Represents 2 Points: Age 61-74 years Each Risk Factor Represents 3 Points: History of DVT/PE Other congenital or acquired thrombophilia - If yes, enter type in comment: No Thrombosis Risk Factor Assessment Total Risk Factor Score: 6 Thrombosis Risk Factor Assessment Level: High Risk Assessment and Plan Assessment: Acute renal failure secondary to dehydration from hypovolemia secondary to diarrhea, decreased oral intake and alcohol abuse. creatinine 1.95 on admission, baseline creatinine 1.0 Nausea and vomiting, may be secondary to gastroenteritis, alcohol abuse in a patient with history of cannabis gastroparesis Multiple hospitalizations secondary to acute renal failure secondary to hypovolemia due to diarrhea and decreased oral intake, which improved with IV hydration Chronic abdominal pain with diarrhea, prior GI workup negative, suspected cannabinoid hyperemesis syndrome Coronary artery disease with previous stenting History of chronic pain with opioid dependency and abuse. Essential hypertension Hyperlipidemia Subtherapeutic INR Elevated LFTs secondary to alcohol abuse Plan: Continue on current medication regime ,monitoring and symptomatic treatment. IV fluid hydration including one banana bag per day. Avoid nephrotoxic agents. Close monitoring of renal function with repeat labs ordered for a.m. CIME protocol. Patient is to have no narcotics ordered during hosital stay secondary to prior dependency/abuse.PT/INR daily. Discharge planning in progress for tomorrow.GI/DVT prophylaxis in place. The impression and plan of care has been dictated as directed. : I performed a history and examination of this patient, discussed the same with the dictator. I agree with the dictator's note ,documented as a scribe. Any additional findings or plans will be noted. Time taken: 35 min.
[2018-10-31] MEDS ORDERED: WARFARIN 5 MG TAB PO SCH (18:00)
[2018-10-31] MEDS: 1: MVI, ADULT NO.4 WITH VIT K 10 ML, THIAMINE 100 MG, FOLIC ACID 1 MG in SODIUM CHLORIDE IV SCH ×4 (18:03)
[2018-10-31] MEDS ORDERED: ESCITALOPRAM 20 MG TAB PO STA (18:24)
[2018-11-01] MEDS: 1: MVI, ADULT NO.4 WITH VIT K 10 ML, THIAMINE 100 MG, FOLIC ACID 1 MG in SODIUM CHLORIDE IV SCH ×8 (04:16→12:21)
[2018-11-01] MEDS: LEVOTHYROXINE 75 MCG TAB PO SCH (05:10)
[2018-11-01] MEDS ORDERED: PANTOPRAZOLE 40 MG TABLET PO SCH (07:30)
[2018-11-01 07:34] LABS: Anisocytosis Slight; Basophils # (A) 0.1 k/uL (0-0.2); Basophils % (A) 1 %; Eosinophils # (A) 0.1 k/uL (0-0.7); Eosinophils % (A) 2 %; HCT 38.6 % (39.0-53.0); HGB 13.4 gm/dL (13.0-17.5); Lymphocytes # (A) 2.2 k/uL (1.0-4.8); Lymphocytes % (A) 30 %; MCH 27.7 pg (25.0-35.0); MCHC 34.7 g/dL (31.0-37.0); MCV 79.8 fL (80.0-100.0); Mean Platelet Volume 7.4; Microcytosis Slight; Monocytes # (A) 0.5 k/uL (0-1.0); Monocytes % (A) 7 %; Neutrophils # (A) 4.2 k/uL (1.3-7.7); Neutrophils % (A) 59 %; Platelet Count 240 k/uL (150-450); RBC 4.84 m/uL (4.30-5.90); RDW 16.7 % (11.5-15.5); WBC 7.2 k/uL (3.8-10.6)
[2018-11-01 07:39] LABS: INR 1.7 (<1.2)
[2018-11-01] MEDS: cloNIDine HCL 0.1 MG TAB PO SCH (07:41)
[2018-11-01] MEDS: amLODIPine 5 MG TAB PO SCH (07:41)
[2018-11-01] MEDS: ASPIRIN 325 MG TAB PO SCH (07:41)
[2018-11-01 07:45] LABS: ALT 26 U/L (21-72); AST 29 U/L (17-59); African American GFR (CKD) >90 (>60 ml/min/1.73 sqM); Albumin 3.8 g/dL (3.5-5.0); Alkaline Phosphatase 75 U/L (38-126); Anion Gap 9 mmol/L; Blood Urea Nitrogen 17 mg/dL (9-20); Calcium 9.1 mg/dL (8.4-10.2); Carbon Dioxide 23 mmol/L (22-30); Chloride 107 mmol/L (98-107); Glucose 106 mg/dL (74-99); Potassium 4.2 mmol/L (3.5-5.1); Sodium 139 mmol/L (137-145); Total Bilirubin 0.7 mg/dL (0.2-1.3); Total Protein 6.4 g/dL (6.3-8.2)
[2018-11-01 08:48] VITALS: BP 152/78; PULSE 69; RESP 16; TEMP 98.1
[2018-11-01] MEDS ORDERED: ESCITALOPRAM 20 MG TAB PO SCH (09:00)
[2018-11-01 09:02] LABS: Prothrombin Time 16.6 sec (9.0-12.0)
--- NOTE | 2018-11-01 14:52 | P.DS ---
Providers Date of admission: 10/31/18 00:00 Expected date of discharge: 11/01/18 Attending physician: Miki Nava Primary care physician: Miki Nava [facility] Course: Final Diagnoses: Acute renal failure secondary to dehydration from hypovolemia secondary to diarrhea, decreased oral intake and alcohol abuse. creatinine 1.95 on admission, baseline creatinine 1.0, improved with IV fluid hydration Nausea and vomiting, may be secondary to gastroenteritis, alcohol abuse in a patient with history of cannabis gastroparesis Multiple hospitalizations secondary to acute renal failure secondary to hypovolemia due to diarrhea and decreased oral intake, which improved with IV hydration Chronic abdominal pain with diarrhea, prior GI workup negative, suspected cannabinoid hyperemesis syndrome Coronary artery disease with previous stenting History of chronic pain with opioid dependency and abuse. Essential hypertension Hyperlipidemia Subtherapeutic INR Elevated LFTs secondary to alcohol abuse Hospital course:This 63-year-old gentleman with history of CAD, angina, PA, gastroesophageal reflux disease, hyperlipidemia, hypertension, cannabis gastroparesis, hypothyroidism, acute renal failure, osteoarthritis, alcohol abuse, multilevel back fusions, depression, former smoker and multiple other medical issues, presented to when necessary nausea vomiting, diarrhea. States he had consumed 6 beers On Tuesday and 6 beers on Tuesday, with minimal water intake and feels dehydrated. Denies fever or chills or diaphoresis. Complains of chronic hiatal hernia chronic knee, chronic back pain, denies chest pain. Troponins negative 3, EKG normal sinus rhythm, systolic blood pressures ranging from 120s to 160s. Chest x-ray nonacute. Maintaining O2 sats in the high 90s on 2 L nasal cannula which can be weaned off. Received 2 L IV fluid boluses in the ER. BUN 22, creatinine 1.95 on admission, currently 24/1.35. Elevated LFTs; alk phos 132, creatinine kinase 329. INR 1.4. UA with rare bacteria WBC 5, small leukocytes 2+ urine protein, 284 hyaline casts. Received gentle IV fluid hydration, creatinine normalized, down to 0.85. Significant clinical improvement. Denies chest pain, palpitations or shortness of breath. Denies lightheadedness dizziness or focal deficits. Patient is being discharged home in a stable condition with guarded prognosis. Exam: GENERAL: Alert and oriented times 3, no acute distress RESPIRATORY: Clear to ausculation. No wheezes, rales, or rhonchi. CARDIOVASCULAR: Regular rate and rhythm. S1 and S2 noted. No murmur. GASTROINTESTINAL: Soft, nontender. No distention noted. Abdomen soft and round. Normal active bowel sounds. NEUROLOGIC: No focal Deficits. The impression and plan of care has been dictated as directed. : I performed a history and examination of this patient, discussed the same with the dictator. I agree with the dictator's note ,documented as a scribe. Any additional findings or plans will be noted. Patient Condition at Discharge: Stable Plan - Discharge Summary Discharge Rx Participant: Yes New Discharge Prescriptions: New Folic Acid 1 mg PO DAILY #30 tablet Multivitamins, Thera [Multivitamin (formulary)] 1 tab PO DAILY #30 tablet Thiamine [Vitamin B-1] 100 mg PO DAILY #30 tablet Continue cloNIDine HCL [Clonidine HCl] 0.1 mg PO BID Levothyroxine Sodium [Synthroid] 75 mcg PO DAILY Omeprazole 20 mg PO DAILY Nitroglycerin Sl Tabs [Nitrostat] 0.4 mg SUBLINGUAL Q5M PRN PRN Reason: Chest Pain Escitalopram [Lexapro] 20 mg PO DAILY amLODIPine [Norvasc] 5 mg PO DAILY Warfarin [Coumadin] 7.5 mg PO SUMOWETHFR Warfarin [Coumadin] 5 mg PO Discharge Medication List cloNIDine HCL [Clonidine HCl] 0.1 mg PO BID 11/16/15 [History] Levothyroxine Sodium [Synthroid] 75 mcg PO DAILY 05/04/16 [History] Omeprazole 20 mg PO DAILY 05/04/16 [History] Nitroglycerin Sl Tabs [Nitrostat] 0.4 mg SUBLINGUAL Q5M PRN 07/19/16 [History] Escitalopram [Lexapro] 20 mg PO DAILY 12/16/16 [History] amLODIPine [Norvasc] 5 mg PO DAILY 02/07/18 [History] Warfarin [Coumadin] 5 mg PO TUSA 10/30/18 [History] Warfarin [Coumadin] 7.5 mg PO SUMOWETHFR 10/30/18 [History] Folic Acid 1 mg PO DAILY #30 tablet 11/01/18 [Rx] Multivitamins, Thera [Multivitamin (formulary)] 1 tab PO DAILY #30 tablet 11/01/18 [Rx] Thiamine [Vitamin B-1] 100 mg PO DAILY #30 tablet 11/01/18 [Rx] Follow up Appointment(s)/Referral(s): Miki Nava DO [Primary Care Provider] - 3 Days (Office closed at time of discharge please call November 02 to set up a follow up appointment) Ambulatory/Diagnostic Orders: Prothrombin Time INR [LAB.AMB] Time Frame: 11/03/18, Location: None Selected Patient Instructions/Handouts: Dehydration (DC), Acute Kidney Injury (DC)
[2018-11-01] MEDS ORDERED: WARFARIN 5 MG TAB PO SCH (18:00)
== END 2018-11-01 13:42 | disposition home or self-care (01) | DRG 683 ==
LOC: EC 20:15 → OBSVTOIN 10-31 → 1SOBS 10-31 → 3SCARD 10-31 10:23 → 3NMEDONC 10-31 12:14 → 4SSUR 10-31 14:15
PROVIDERS: ADMIT Family Medicine; ATTEND Family Medicine
DX: N17.9 Acute kidney failure, unspecified (principal); E87.2 Acidosis; F11.20 Opioid dependence, uncomplicated; K31.84 Gastroparesis; F12.188 Cannabis abuse with other cannabis-induced disorder; E86.0 Dehydration; E86.1 Hypovolemia; F32.9 Major depressive disorder, single episode, unspecified; M47.9 Spondylosis, unspecified; E78.5 Hyperlipidemia, unspecified; E03.9 Hypothyroidism, unspecified; K21.9 Gastro-esophageal reflux disease without esophagitis; I25.2 Old myocardial infarction; I10 Essential (primary) hypertension; F10.10 Alcohol abuse, uncomplicated; G89.29 Other chronic pain; M54.42 Lumbago with sciatica, left side; M54.41 Lumbago with sciatica, right side; K58.0 Irritable bowel syndrome with diarrhea; K44.9 Diaphragmatic hernia without obstruction or gangrene; M51.36 Other intervertebral disc degeneration, lumbar region; I25.10 Atherosclerotic heart disease of native coronary artery without angina pectoris; Z79.890 Hormone replacement therapy; Z79.01 Long term (current) use of anticoagulants; Z79.899 Other long term (current) drug therapy; Z95.5 Presence of coronary angioplasty implant and graft; Z98.1 Arthrodesis status; Z90.49 Acquired absence of other specified parts of digestive tract; Z87.81 Personal history of (healed) traumatic fracture; Z87.891 Personal history of nicotine dependence; Z86.69 Personal history of other diseases of the nervous system and sense organs; Z86.718 Personal history of other venous thrombosis and embolism; Z98.890 Other specified postprocedural states; Z88.8 Allergy status to other drugs, medicaments and biological substances; Z83.49 Family history of other endocrine, nutritional and metabolic diseases; Z82.49 Family history of ischemic heart disease and other diseases of the circulatory system; Z83.3 Family history of diabetes mellitus; Z80.8 Family history of malignant neoplasm of other organs or systems
CPT/HCPCS: 36415; 51798; 71045; 80048; 80053; 81001; 82550; 82803; 83605; 83690; 83735; 83930; 84100; 84484; 85025; 85610; 85730; 93005; 96361; 96374; 96375; 99285

== ENCOUNTER 2019-02-12 23:23 | Observation (INO) | payer MEDICARE ==
--- NOTE | 2019-02-13 00:34 | ED ---
GI Bleed HPI - General Chief complaint: GI Bleed Stated complaint: Abdominal Pain, Rectal Bleeding Time Seen by Provider: 02/13/19 00:15 Source: patient, family Mode of arrival: wheelchair Limitations: no limitations - History of Present Illness Initial comments: This patient is 63-year-old man who presents to be evaluated for a number of symptoms. The patient states that his recent history begins approximately 2 months ago. Patient states that he had been having rectal bleeding going back to before January. He had been scheduled to have endoscopy performed on January 19 but states that he had developed a severe cold and so was not able to have the procedure. The patient states that the rectal bleeding had slowed but then over the past 3 days it seems to be happening more frequently. Today he states he also thought he saw some blood in his urine. Patient has been having some diffuse abdominal cramping, and then felt that it had causes breathing to feel worse than his usual. Denies chest pain, palpitations, lightheadedness or syncope or orthostatic symptoms. Patient states that he does take Coumadin due to peripheral vascular disease. MD complaint: melena Onset/Timin -: week(s) Quality: cramping Consistency: intermittent Improves with: none Worsens with: none Context: history of GI bleed, blood thinners Treatments Prior to Arrival: none - Related Data Home Medications Medication Instructions Recorded Confirmed cloNIDine HCL [Clonidine HCl] 0.1 mg PO BID 11/16/15 02/13/19 Levothyroxine Sodium [Synthroid] 75 mcg PO DAILY 05/04/16 02/13/19 Omeprazole 20 mg PO DAILY 05/04/16 02/13/19 Nitroglycerin Sl Tabs [Nitrostat] 0.4 mg SUBLINGUAL Q5M PRN 07/19/16 02/13/19 Escitalopram [Lexapro] 20 mg PO DAILY 12/16/16 02/13/19 amLODIPine [Norvasc] 5 mg PO DAILY 02/07/18 02/13/19 Albuterol Sulfate [Proair Hfa] 2 puff INHALATION RT-Q6H PRN 02/13/19 02/13/19 Previous Rx's Medication Instructions Recorded Apixaban [Eliquis Starter Pack 0 mg PO DIRECTED 30 Days #1 pack 02/15/19 (for VTE)] Folic Acid 1 mg PO DAILY #30 tab 02/16/19 Multivitamins, Thera [Multivitamin 1 each PO DAILY #30 tab 02/16/19 (formulary)] Pantoprazole Sodium [Protonix] 40 mg PO DAILY #30 tablet. 02/16/19 Thiamine [Vitamin B-1] 100 mg PO DAILY #30 tab 02/16/19 Allergies Allergy/AdvReac Type Severity Reaction Status Date / Time rivaroxaban [From Xarelto] Allergy Severe Abdominal Verified 02/14/19 17:57 Pain Beta-Blockers Allergy Rash/Hives Verified 02/13/19 07:51 (Beta-Adrenergic Bloc paroxetine HCl [From Paxil] AdvReac Unknown Abdominal Verified 02/13/19 07:51 Pain gabapentin AdvReac Abdominal Verified 02/13/19 07:51 Pain Review of Systems ROS Statement: Those systems with pertinent positive or pertinent negative responses have been documented in the HPI. ROS Other: All systems not noted in ROS Statement are negative. Constitutional: Denies: fever, chills Respiratory: Reports: as per HPI, dyspnea, wheezes. Denies: cough, hemoptysis Cardiovascular: Denies: chest pain, palpitations, orthopnea, edema, syncope Gastrointestinal: Reports: as per HPI, abdominal pain, vomiting, hematemesis. Denies: nausea, diarrhea, constipation, melena, hematochezia Genitourinary: Denies: dysuria, hematuria Musculoskeletal: Denies: back pain Skin: Denies: rash Neurological: Denies: headache, weakness, numbness Hematological/Lymphatic: Reports: easy bleeding Past Medical History Past Medical History: Coronary Artery Disease (CAD), Chest Pain / Angina, GERD/Reflux, Hyperlipidemia, Hypertension, Myocardial Infarction (GA), M usculoskeletal Disorder, Osteoarthritis (OA), Pneumonia, Renal Disease, Syncope, Thyroid Disorder Additional Past Medical History / Comment(s): Episodes of acute renal failure associated with dehydration, diverticulitis, IBS, return of hiatal hernia, bronchitis, hypothyroid, chronic low back pain with bilateral sciatica, lumbar DDD, past migraines, DJD, numbness tingling bilateral great toes/feet, 4 DVTs L leg surgically removed. Last Myocardial Infarction Date:: 2013 History of Any Multi-Drug Resistant Organisms: None Reported Past Surgical History: Back Surgery, Cholecystectomy, Heart Catheterization, Heart Catheterization With Stent, Hernia Repair, Orthopedic Surgery Additional Past Surgical History / Comment(s): Back fusions L3-L5, ORIF L ankle, L hand fracture with surgery, R knee arthroscopy x2, R elbow tendon release, R shoulder arthroscopy, lumbar spine cyst removed, pain clinic procedures, taylor fundoplication, EGD, colonoscopy, 2019 arteriogram/thrombus extraction at [facility]. Past Anesthesia/Blood Transfusion Reactions: No Reported Reaction Date of Last Stent Placement:: 2013 Past Psychological History: Depression Smoking Status: Former smoker Past Alcohol Use History: None Reported Past Drug Use History: None Reported - Past Family History Mother Family Medical History: Thyroid Disorder Additional Family Medical History / Comment(s): Mother is living. Father Family Medical History: Coronary Artery Disease (CAD) Additional Family Medical History / Comment(s): Father had CABG. He at the age of 84 yrs in a MVA. Sister(s) Family Medical History: Cancer, Thyroid Disorder Additional Family Medical History / Comment(s): SKIN CA/ #2 sister had thyroid cancer General Exam Limitations: no limitations General appearance: alert, in no apparent distress Head exam: Present: atraumatic, normocephalic Eye exam: Present: normal appearance. Absent: scleral icterus, conjunctival injection ENT exam: Present: normal oropharynx Neck exam: Present: normal inspection Respiratory exam: Present: wheezes. Absent: respiratory distress, rales, rhonchi, stridor Cardiovascular Exam: Present: regular rate, normal rhythm, normal heart sounds. Absent: systolic murmur, diastolic murmur, rubs, gallop GI/Abdominal exam: Present: soft. Absent: distended, tenderness, guarding, rebound, rigid, mass, pulsatile mass, hernia Rectal exam: Present: normal inspection, normal rectal tone. Absent: fecal impaction, hemorrhoids, mass, tenderness Extremities exam: Present: normal inspection, normal capillary refill. Absent: pedal edema, calf tenderness Back exam: Present: normal inspection Skin exam: Present: warm, dry, intact, normal color. Absent: rash Course Vital Signs 02/12/19 02/13/19 02/13/19 23:55 00:28 01:34 Temperature 98 F Pulse Rate 89 84 76 Pulse Rate [ Warp Yarn Sorter ] Respiratory 20 18 18 Rate Blood Pressure 130/80 147/92 138/81 Blood Pressure [Right Arm] O2 Sat by Pulse 96 97 97 Oximetry 02/13/19 02/13/19 02/13/19 04:00 05:34 09:00 Temperature 98 F 98.1 F Pulse Rate 70 73 Pulse Rate [ 60 Warp Yarn Sorter ] Respiratory 18 18 16 Rate Blood Pressure 127/80 124/75 Blood Pressure 128/68 [Right Arm] O2 Sat by Pulse 100 98 98 Oximetry 02/13/19 02/13/19 02/13/19 12:00 13:00 16:00 Temperature 97.2 F L 98.6 F Pulse Rate Pulse Rate [ 63 66 Warp Yarn Sorter ] Respiratory 16 16 18 Rate Blood Pressure Blood Pressure 126/68 133/77 [Right Arm] O2 Sat by Pulse 97 95 Oximetry Medical Decision Making - Lab Data Result diagrams: 02/15/19 09:15 02/15/19 09:15 Lab Results 02/13/19 02/13/19 02/13/19 Range/Units 00:30 00:30 00:30 WBC 9.2 (3.8-10.6) k/uL RBC 5.14 (4.30-5.90) m/uL Hgb 14.4 (13.0-17.5) gm/dL Hct 41.9 (39.0-53.0) % MCV 81.5 (80.0-100.0) fL MCH 28.0 (25.0-35.0) pg MCHC 34.4 (31.0-37.0) g/dL RDW 14.2 (11.5-15.5) % Plt Count 304 (150-450) k/uL Neutrophils % 63 % Lymphocytes % 24 % Monocytes % 7 % Eosinophils % 3 % Basophils % 1 % Neutrophils # 5.8 (1.3-7.7) k/uL Lymphocytes # 2.2 (1.0-4.8) k/uL Monocytes # 0.6 (0-1.0) k/uL Eosinophils # 0.3 (0-0.7) k/uL Basophils # 0.1 (0-0.2) k/uL PT 116.2 H (9.0-12.0) sec INR >10.0 H* (<1.2) APTT 78.8 H (22.0-30.0) sec Sodium 139 (137-145) mmol/L Potassium 4.0 (3.5-5.1) mmol/L Chloride 105 (98-107) mmol/L Carbon Dioxide 18 L (22-30) mmol/L Anion Gap 16 mmol/L BUN 12 (9-20) mg/dL Creatinine 1.04 (0.66-1.25) mg/dL Est GFR (CKD-EPI)AfAm 88 (>60 ml/min/1.73 sqM) Est GFR (CKD-EPI)NonAf 76 (>60 ml/min/1.73 sqM) Glucose 107 H (74-99) mg/dL Plasma Lactic Acid Chacorta (0.7-2.0) mmol/L Calcium 9.4 (8.4-10.2) mg/dL Total Bilirubin 0.6 (0.2-1.3) mg/dL AST 32 (17-59) U/L ALT 23 (4-49) U/L Alkaline Phosphatase 103 (38-126) U/L Troponin I (0.000-0.034) ng/mL Total Protein 7.6 (6.3-8.2) g/dL Albumin 4.8 (3.5-5.0) g/dL Urine Color Urine Appearance (Clear) Urine pH (5.0-8.0) Ur Specific [place] (1.001-1.035) Urine Protein (Negative) Urine Glucose (UA) (Negative) Urine Ketones (Negative) Urine Blood (Negative) Urine Nitrite (Negative) Urine Bilirubin (Negative) Urine Urobilinogen (<2.0) mg/dL Ur Leukocyte Esterase (Negative) Urine RBC (0-5) /hpf Urine WBC (0-5) /hpf Amorphous Sediment (None) /hpf Urine Mucus (None) /hpf Stool Occult Blood (Negative) Blood Type Blood Type Recheck Bld Type Recheck Status Antibody Screen Spec Expiration Date 02/13/19 02/13/19 02/13/19 Range/Units 00:30 00:30 00:30 WBC (3.8-10.6) k/uL RBC (4.30-5.90) m/uL Hgb (13.0-17.5) gm/dL Hct (39.0-53.0) % MCV (80.0-100.0) fL MCH (25.0-35.0) pg MCHC (31.0-37.0) g/dL RDW (11.5-15.5) % Plt Count (150-450) k/uL Neutrophils % % Lymphocytes % % Monocytes % % Eosinophils % % Basophils % % Neutrophils # (1.3-7.7) k/uL Lymphocytes # (1.0-4.8) k/uL Monocytes # (0-1.0) k/uL Eosinophils # (0-0.7) k/uL Basophils # (0-0.2) k/uL PT (9.0-12.0) sec INR (<1.2) APTT (22.0-30.0) sec Sodium (137-145) mmol/L Potassium (3.5-5.1) mmol/L Chloride (98-107) mmol/L Carbon Dioxide (22-30) mmol/L Anion Gap mmol/L BUN (9-20) mg/dL Creatinine (0.66-1.25) mg/dL Est GFR (CKD-EPI)AfAm (>60 ml/min/1.73 sqM) Est GFR (CKD-EPI)NonAf (>60 ml/min/1.73 sqM) Glucose (74-99) mg/dL Plasma Lactic Acid Chacorta 2.0 (0.7-2.0) mmol/L Calcium (8.4-10.2) mg/dL Total Bilirubin (0.2-1.3) mg/dL AST (17-59) U/L ALT (4-49) U/L Alkaline Phosphatase (38-126) U/L Troponin I <0.012 (0.000-0.034) ng/mL Total Protein (6.3-8.2) g/dL Albumin (3.5-5.0) g/dL Urine Color Urine Appearance (Clear) Urine pH (5.0-8.0) Ur Specific [place] (1.001-1.035) Urine Protein (Negative) Urine Glucose (UA) (Negative) Urine Ketones (Negative) Urine Blood (Negative) Urine Nitrite (Negative) Urine Bilirubin (Negative) Urine Urobilinogen (<2.0) mg/dL Ur Leukocyte Esterase (Negative) Urine RBC (0-5) /hpf Urine WBC (0-5) /hpf Amorphous Sediment (None) /hpf Urine Mucus (None) /hpf Stool Occult Blood (Negative) Blood Type B Negative Blood Type Recheck B Neg Bld Type Recheck Status No Antibody Screen NEGATIVE Spec Expiration Date 02/16/2019232902/13/19 02/13/19 02/13/19 Range/Units 00:51 00:53 07:26 WBC 7.3 (3.8-10.6) k/uL RBC 4.91 (4.30-5.90) m/uL Hgb 13.5 (13.0-17.5) gm/dL Hct 40.6 (39.0-53.0) % MCV 82.7 (80.0-100.0) fL MCH 27.5 (25.0-35.0) pg MCHC 33.3 (31.0-37.0) g/dL RDW 14.6 (11.5-15.5) % Plt Count 242 (150-450) k/uL Neutrophils % % Lymphocytes % % Monocytes % % Eosinophils % % Basophils % % Neutrophils # (1.3-7.7) k/uL Lymphocytes # (1.0-4.8) k/uL Monocytes # (0-1.0) k/uL Eosinophils # (0-0.7) k/uL Basophils # (0-0.2) k/uL PT (9.0-12.0) sec INR (<1.2) APTT (22.0-30.0) sec Sodium (137-145) mmol/L Potassium (3.5-5.1) mmol/L Chloride (98-107) mmol/L Carbon Dioxide (22-30) mmol/L Anion Gap mmol/L BUN (9-20) mg/dL Creatinine (0.66-1.25) mg/dL Est GFR (CKD-EPI)AfAm (>60 ml/min/1.73 sqM) Est GFR (CKD-EPI)NonAf (>60 ml/min/1.73 sqM) Glucose (74-99) mg/dL Plasma Lactic Acid Chacorta (0.7-2.0) mmol/L Calcium (8.4-10.2) mg/dL Total Bilirubin (0.2-1.3) mg/dL AST (17-59) U/L ALT (4-49) U/L Alkaline Phosphatase (38-126) U/L Troponin I (0.000-0.034) ng/mL Total Protein (6.3-8.2) g/dL Albumin (3.5-5.0) g/dL Urine Color Yellow Urine Appearance Cloudy (Clear) Urine pH 5.0 (5.0-8.0) Ur Specific [place] 1.008 (1.001-1.035) Urine Protein Trace H (Negative) Urine Glucose (UA) Negative (Negative) Urine Ketones Negative (Negative) Urine Blood Large H (Negative) Urine Nitrite Negative (Negative) Urine Bilirubin Negative (Negative) Urine Urobilinogen <2.0 (<2.0) mg/dL Ur Leukocyte Esterase Negative (Negative) Urine RBC 100 H (0-5) /hpf Urine WBC 3 (0-5) /hpf Amorphous Sediment Rare H (None) /hpf Urine Mucus Rare H (None) /hpf Stool Occult Blood Positive (Negative) Blood Type Blood Type Recheck Bld Type Recheck Status Antibody Screen Spec Expiration Date 02/13/19 02/13/19 02/13/19 Range/Units 07:26 18:07 18:07 WBC 5.8 (3.8-10.6) k/uL RBC 4.50 (4.30-5.90) m/uL Hgb 12.8 L (13.0-17.5) gm/dL Hct 37.2 L (39.0-53.0) % MCV 82.7 (80.0-100.0) fL MCH 28.5 (25.0-35.0) pg MCHC 34.4 (31.0-37.0) g/dL RDW 14.4 (11.5-15.5) % Plt Count 252 (150-450) k/uL Neutrophils % % Lymphocytes % % Monocytes % % Eosinophils % % Basophils % % Neutrophils # (1.3-7.7) k/uL Lymphocytes # (1.0-4.8) k/uL Monocytes # (0-1.0) k/uL Eosinophils # (0-0.7) k/uL Basophils # (0-0.2) k/uL PT 102.1 H 18.1 H (9.0-12.0) sec INR >10.0 H* 1.8 H (<1.2) APTT (22.0-30.0) sec Sodium (137-145) mmol/L Potassium (3.5-5.1) mmol/L Chloride (98-107) mmol/L Carbon Dioxide (22-30) mmol/L Anion Gap mmol/L BUN (9-20) mg/dL Creatinine (0.66-1.25) mg/dL Est GFR (CKD-EPI)AfAm (>60 ml/min/1.73 sqM) Est GFR (CKD-EPI)NonAf (>60 ml/min/1.73 sqM) Glucose (74-99) mg/dL Plasma Lactic Acid Chacorta (0.7-2.0) mmol/L Calcium (8.4-10.2) mg/dL Total Bilirubin (0.2-1.3) mg/dL AST (17-59) U/L ALT (4-49) U/L Alkaline Phosphatase (38-126) U/L Troponin I (0.000-0.034) ng/mL Total Protein (6.3-8.2) g/dL Albumin (3.5-5.0) g/dL Urine Color Urine Appearance (Clear) Urine pH (5.0-8.0) Ur Specific [place] (1.001-1.035) Urine Protein (Negative) Urine Glucose (UA) (Negative) Urine Ketones (Negative) Urine Blood (Negative) Urine Nitrite (Negative) Urine Bilirubin (Negative) Urine Urobilinogen (<2.0) mg/dL Ur Leukocyte Esterase (Negative) Urine RBC (0-5) /hpf Urine WBC (0-5) /hpf Amorphous Sediment (None) /hpf Urine Mucus (None) /hpf Stool Occult Blood (Negative) Blood Type Blood Type Recheck Bld Type Recheck Status Antibody Screen Spec Expiration Date 02/14/19 02/14/19 02/14/19 Range/Units 05:54 05:54 05:54 WBC 5.9 (3.8-10.6) k/uL RBC 4.78 (4.30-5.90) m/uL Hgb 13.2 (13.0-17.5) gm/dL Hct 39.5 (39.0-53.0) % MCV 82.7 (80.0-100.0) fL MCH 27.7 (25.0-35.0) pg MCHC 33.4 (31.0-37.0) g/dL RDW 14.4 (11.5-15.5) % Plt Count 235 (150-450) k/uL Neutrophils % % Lymphocytes % % Monocytes % % Eosinophils % % Basophils % % Neutrophils # (1.3-7.7) k/uL Lymphocytes # (1.0-4.8) k/uL Monocytes # (0-1.0) k/uL Eosinophils # (0-0.7) k/uL Basophils # (0-0.2) k/uL PT 13.2 H (9.0-12.0) sec INR 1.3 H (<1.2) APTT (22.0-30.0) sec Sodium 139 (137-145) mmol/L Potassium 4.3 (3.5-5.1) mmol/L Chloride 109 H (98-107) mmol/L Carbon Dioxide 24 (22-30) mmol/L Anion Gap 6 mmol/L BUN 12 (9-20) mg/dL Creatinine 0.80 (0.66-1.25) mg/dL Est GFR (CKD-EPI)AfAm >90 (>60 ml/min/1.73 sqM) Est GFR (CKD-EPI)NonAf >90 (>60 ml/min/1.73 sqM) Glucose 114 H (74-99) mg/dL Plasma Lactic Acid Chacorta (0.7-2.0) mmol/L Calcium 9.1 (8.4-10.2) mg/dL Total Bilirubin (0.2-1.3) mg/dL AST (17-59) U/L ALT (4-49) U/L Alkaline Phosphatase (38-126) U/L Troponin I (0.000-0.034) ng/mL Total Protein (6.3-8.2) g/dL Albumin (3.5-5.0) g/dL Urine Color Urine Appearance (Clear) Urine pH (5.0-8.0) Ur Specific [place] (1.001-1.035) Urine Protein (Negative) Urine Glucose (UA) (Negative) Urine Ketones (Negative) Urine Blood (Negative) Urine Nitrite (Negative) Urine Bilirubin (Negative) Urine Urobilinogen (<2.0) mg/dL Ur Leukocyte Esterase (Negative) Urine RBC (0-5) /hpf Urine WBC (0-5) /hpf Amorphous Sediment (None) /hpf Urine Mucus (None) /hpf Stool Occult Blood (Negative) Blood Type Blood Type Recheck Bld Type Recheck Status Antibody Screen Spec Expiration Date 02/15/19 02/15/19 Range/Units 09:15 09:15 WBC 6.0 (3.8-10.6) k/uL RBC 4.82 (4.30-5.90) m/uL Hgb 13.4 (13.0-17.5) gm/dL Hct 39.8 (39.0-53.0) % MCV 82.6 (80.0-100.0) fL MCH 27.8 (25.0-35.0) pg MCHC 33.6 (31.0-37.0) g/dL RDW 14.4 (11.5-15.5) % Plt Count 242 (150-450) k/uL Neutrophils % 59 % Lymphocytes % 27 % Monocytes % 8 % Eosinophils % 3 % Basophils % 1 % Neutrophils # 3.5 (1.3-7.7) k/uL Lymphocytes # 1.6 (1.0-4.8) k/uL Monocytes # 0.5 (0-1.0) k/uL Eosinophils # 0.2 (0-0.7) k/uL Basophils # 0.1 (0-0.2) k/uL PT (9.0-12.0) sec INR (<1.2) APTT (22.0-30.0) sec Sodium 140 (137-145) mmol/L Potassium 4.0 (3.5-5.1) mmol/L Chloride 108 H (98-107) mmol/L Carbon Dioxide 21 L (22-30) mmol/L Anion Gap 11 mmol/L BUN 13 (9-20) mg/dL Creatinine 0.81 (0.66-1.25) mg/dL Est GFR (CKD-EPI)AfAm >90 (>60 ml/min/1.73 sqM) Est GFR (CKD-EPI)NonAf >90 (>60 ml/min/1.73 sqM) Glucose 120 H (74-99) mg/dL Plasma Lactic Acid Chac[place] (0.7-2.0) mmol/L Calcium 9.6 (8.4-10.2) mg/dL Total Bilirubin (0.2-1.3) mg/dL AST (17-59) U/L ALT (4-49) U/L Alkaline Phosphatase (38-126) U/L Troponin I (0.000-0.034) ng/mL Total Protein (6.3-8.2) g/dL Albumin (3.5-5.0) g/dL Urine Color Urine Appearance (Clear) Urine pH (5.0-8.0) Ur Specific [place] (1.001-1.035) Urine Protein (Negative) Urine Glucose (UA) (Negative) Urine Ketones (Negative) Urine Blood (Negative) Urine Nitrite (Negative) Urine Bilirubin (Negative) Urine Urobilinogen (<2.0) mg/dL Ur Leukocyte Esterase (Negative) Urine RBC (0-5) /hpf Urine WBC (0-5) /hpf Amorphous Sediment (None) /hpf Urine Mucus (None) /hpf Stool Occult Blood (Negative) Blood Type Blood Type Recheck Bld Type Recheck Status Antibody Screen Spec Expiration Date - EKG Data -: EKG Interpreted by [place] EKG shows normal: sinus rhythm, axis (Normal), intervals (DC interval is 226 ms, prolonged consistent with first-degree AV block. QRS duration 104 ms, QTC 451 ms, both normal.), QRS complexes (Normal), ST-T waves (Normal) Rate: normal (Rate 79 bpm) Disposition Clinical Impression: Lower gastrointestinal hemorrhage, Coumadin toxicity Disposition: ADMITTED IP TO THIS [facility] Condition: Stable
[2019-02-13 00:49] LABS: Basophils # (A) 0.1 k/uL (0-0.2); Basophils % (A) 1 %; Eosinophils # (A) 0.3 k/uL (0-0.7); Eosinophils % (A) 3 %; HCT 41.9 % (39.0-53.0); HGB 14.4 gm/dL (13.0-17.5); Lymphocytes # (A) 2.2 k/uL (1.0-4.8); Lymphocytes % (A) 24 %; MCHC 34.4 g/dL (31.0-37.0); MCV 81.5 fL (80.0-100.0); Mean Platelet Volume 7.7; Monocytes # (A) 0.6 k/uL (0-1.0); Monocytes % (A) 7 %; Neutrophils # (A) 5.8 k/uL (1.3-7.7); Neutrophils % (A) 63 %; Platelet Count 304 k/uL (150-450); RBC 5.14 m/uL (4.30-5.90); RDW 14.2 % (11.5-15.5); WBC 9.2 k/uL (3.8-10.6)
[2019-02-13] MEDS ORDERED: HYDROmorphone 0.5 MG/0.5 ML SYRINGE IVP STA ×2 (00:57→05:26)
[2019-02-13 01:17] LABS: Prothrombin Time 116.2 sec (9.0-12.0)
[2019-02-13 01:18] LABS: Albumin 4.8 g/dL (3.5-5.0); Calcium 9.4 mg/dL (8.4-10.2); Total Bilirubin 0.6 mg/dL (0.2-1.3); Total Protein 7.6 g/dL (6.3-8.2)
[2019-02-13 01:27] LABS: INR >10.0 (<1.2)
[2019-02-13 01:30] LABS: Partial Thromboplastin Time 78.8 sec (22.0-30.0)
[2019-02-13 01:33] LABS: Amorphous Sediment,Urine Rare /hpf; Appearance,Urine Cloudy (Clear); Bilirubin,Urine Negative (Negative); Blood,Urine Large (Negative); Color,Urine Yellow; Glucose,Urine (UA) Negative (Negative); Ketones,Urine Negative (Negative); Leukocyte Esterase,Urine Negative (Negative); Mucus,Urine Rare /hpf; Nitrite,Urine Negative (Negative); Protein,Urine Trace (Negative); RBC,Urine 100 /hpf (0-5); Specific Gravity,Urine 1.008 (1.001-1.035); Urobilinogen,Urine <2.0 mg/dL (<2.0); WBC,Urine 3 /hpf (0-5)
[2019-02-13] MEDS ORDERED: PHYTONADIONE ORAL 5 MG/5 ML ORAL.SYRG PO ONE (01:45)
[2019-02-13] MEDS ORDERED: NALOXONE 0.4 MG/ML 1 ML VIAL IV PRN (02:04)
[2019-02-13] MEDS ORDERED: PANTOPRAZOLE 40 MG/10 ML VIAL IVP STA (02:07)
[2019-02-13] MEDS ORDERED: NITROGLYCERIN SL TABS 0.4 MG TAB SUBLINGUAL PRN (02:08)
[2019-02-13] MEDS: SODIUM CHLORIDE 0.9% 1,000 ML IV SCH ×3 (05:30→20:20)
[2019-02-13 08:21] LABS: HCT 40.6 % (39.0-53.0); HGB 13.5 gm/dL (13.0-17.5); MCH 27.5 pg (25.0-35.0); MCHC 33.3 g/dL (31.0-37.0); MCV 82.7 fL (80.0-100.0); Platelet Count 242 k/uL (150-450); RBC 4.91 m/uL (4.30-5.90); RDW 14.6 % (11.5-15.5); WBC 7.3 k/uL (3.8-10.6)
[2019-02-13 08:27] LABS: Prothrombin Time 102.1 sec (9.0-12.0)
[2019-02-13 08:33] LABS: INR >10.0 (<1.2)
[2019-02-13] MEDS ORDERED: PHYTONADIONE 5 MG in SODIUM CHLORIDE 0.9% 50 ML IVPB STA (08:53)
[2019-02-13] MEDS: PANTOPRAZOLE 40 MG/10 ML VIAL IV SCH (08:56)
[2019-02-13] MEDS: FOLIC ACID 1 MG TAB PO SCH (08:57)
[2019-02-13] MEDS: MULTIVITAMINS, THERA 1 EACH TAB PO SCH (08:57)
[2019-02-13] MEDS: ESCITALOPRAM 20 MG TAB PO SCH (08:57)
[2019-02-13] MEDS: LEVOTHYROXINE 75 MCG TAB PO SCH (08:57)
[2019-02-13] MEDS: THIAMINE 100 MG TAB PO SCH (08:57)
[2019-02-13] MEDS: cloNIDine HCL 0.1 MG TAB PO SCH ×2 (10:53→20:20)
[2019-02-13] MEDS: amLODIPine 5 MG TAB PO SCH (10:53)
[2019-02-13] MEDS: ACETAMINOPHEN IV (For NPO) 1,000 MG in EMPTY BAG 1 BAG IVPB PRN (11:41)
[2019-02-13] MEDS ORDERED: ACETAMINOPHEN IV (For NPO) 1,000 MG in EMPTY BAG 1 BAG IVPB SCH (12:00)
[2019-02-13 18:22] LABS: HCT 37.2 % (39.0-53.0); HGB 12.8 gm/dL (13.0-17.5); MCH 28.5 pg (25.0-35.0); MCHC 34.4 g/dL (31.0-37.0); MCV 82.7 fL (80.0-100.0); Mean Platelet Volume 7.8; Platelet Count 252 k/uL (150-450); RDW 14.4 % (11.5-15.5); WBC 5.8 k/uL (3.8-10.6)
[2019-02-13 18:27] LABS: INR 1.8 (<1.2); Prothrombin Time 18.1 sec (9.0-12.0)
--- NOTE | 2019-02-13 20:27 | P.HPIM ---
History of Present Illness H&P Date: 02/13/19 This is a pleasant 63-year-old white male who is admitted to the hospital emergency department with acute gastrointestinal bleeding. Patient apparently went supratherapeutic and his INR when his dose was increased last week. He comes today with an INR of 10. He is also reported multiple bruising and some nose bleeding as well and also stated some hematuria. His Coumadin has been held at this time. And he is given some vitamin K. And on 9 on room to room boy Review of Systems GENERAL: Patient denies fever. Denies chills. EYES: Denies blurred vision. Denies vision changes. Denies eye pain. EARS, NOSE, MOUTH, & THROAT: Denies headache. Denies sore throat. Denies ear pain. RESPIRATORY: Denies cough. Denies shortness of breath. Denies sputum production. Denies hemoptysis. CARDIOVASCULAR: Denies chest pain or pressure. Denies palpitations. Denies arrhythmias. GASTROINTESTINAL: Denies abdominal pain. Denies diarrhea. Denies constipation. Denies nausea. Denies vomiting. Denies heartburn. Denies blood in the stool. GENITOURINARY: Denies urinary frequency. Denies burning. Denies dysuria. Denies cloudy urine. Denies blood in the urine. MUSCULOSKELETAL: Denies myalgias. Denies joint swelling. Denies decreased range of motion beyond patients baseline. INTEGUMENTARY: Denies pruitis. Denies rash. PSYCHIATRIC: Denies suicidal or homicial ideations. ENDOCRINE: Denies weight change. Denies polydipsia. Denies polyuria. HEMATOLOGIC: Admits to Coumadin anticoagulation with elevated INR Past Medical History Past Medical History: Coronary Artery Disease (CAD), Chest Pain / Angina, GERD/Reflux, Hyperlipidemia, Hypertension, Myocardial Infarction (HI), Musculoskeletal Disorder, Osteoarthritis (OA), Pneumonia, Renal Disease, Syncope, Thyroid Disorder Additional Past Medical History / Comment(s): Episodes of acute renal failure associated with dehydration, diverticulitis, IBS, return of hiatal hernia, bronchitis, hypothyroid, chronic low back pain with bilateral sciatica, lumbar DDD, past migraines, DJD, numbness tingling bilateral great toes/feet, 4 DVTs L leg surgically removed. Last Myocardial Infarction Date:: 2013 History of Any Multi-Drug Resistant Organisms: None Reported Past Surgical History: Back Surgery, Cholecystectomy, Heart Catheterization, Heart Catheterization With Stent, Hernia Repair, Orthopedic Surgery Additional Past Surgical History / Comment(s): Back fusions L3-L5, ORIF L ankle, L hand fracture with surgery, R knee arthroscopy x2, R elbow tendon release, R shoulder arthroscopy, lumbar spine cyst removed, pain clinic procedures, taylor fundoplication, EGD, colonoscopy, 2019 arteriogram/thrombus extraction at [facility]. Past Anesthesia/Blood Transfusion Reactions: No Reported Reaction Date of Last Stent Placement:: 2013 Past Psychological History: Depression Additional Psychological History / Comment(s): Pt resides with his spouse in a ranch style home that has 2 front steps. He uses a cane he uses as needed. He drives. He has 1 pet dog Smoking Status: Former smoker Past Alcohol Use History: None Reported Additional Past Alcohol Use History / Comment(s): Smoked from 1971 to 1983 SMOKED 1PPD Past Drug Use History: None Reported Additional Drug Use History / Comment(s): MEDICAL marijuana - OCCASIONAL USE. Pt states he used opiates in the past- does not take since 2014 - - Past Family History Mother Family Medical History: Thyroid Disorder Additional Family Medical History / Comment(s): Mother is living. Father Family Medical History: Coronary Artery Disease (CAD) Additional Family Medical History / Comment(s): Father had CABG. He at the age of 84 yrs in a MVA. Sister(s) Family Medical History: Cancer, Thyroid Disorder Additional Family Medical History / Comment(s): SKIN CA/ #2 sister had thyroid cancer Medications and Allergies Home Medications Medication Instructions Recorded Confirmed Type cloNIDine HCL [Clonidine HCl] 0.1 mg PO BID 11/16/15 02/13/19 History Levothyroxine Sodium [Synthroid] 75 mcg PO DAILY 05/04/16 02/13/19 History Omeprazole 20 mg PO DAILY 05/04/16 02/13/19 History Nitroglycerin Sl Tabs [Nitrostat] 0.4 mg SUBLINGUAL Q5M PRN 07/19/16 02/13/19 History Escitalopram [Lexapro] 20 mg PO DAILY 12/16/16 02/13/19 History amLODIPine [Norvasc] 5 mg PO DAILY 02/07/18 02/13/19 History Warfarin [Coumadin] 5 mg PO TUTH 10/30/18 02/13/19 History Warfarin [Coumadin] 7.5 mg PO SUMOWEFRSA 10/30/18 02/13/19 History Albuterol Sulfate [Proair Hfa] 2 puff INHALATION RT-Q6H PRN 02/13/19 02/13/19 History Allergies Allergy/AdvReac Type Severity Reaction Status Date / Time Beta-Blockers Allergy Rash/Hives Verified 02/13/19 07:51 (Beta-Adrenergic Bloc paroxetine HCl [From Paxil] AdvReac Unknown Abdominal Verified 02/13/19 07:51 Pain gabapentin AdvReac Abdominal Verified 02/13/19 07:51 Pain Physical Exam Osteopathic Statement: *. No significant issues noted on an osteopathic structural exam other than those noted in the History and Physical/Consult. Vitals: Vital Signs Temp Pulse Pulse Resp BP BP Pulse Ox 02/13/19 16:00 98.6 F 66 18 133/77 95 02/13/19 13:00 97.2 F L 63 16 126/68 97 02/13/19 12:00 16 02/13/19 09:00 98.1 F 60 16 128/68 98 02/13/19 05:34 98 F 73 18 124/75 98 02/13/19 04:00 70 18 127/80 100 02/13/19 01:34 76 18 138/81 97 02/13/19 00:28 84 18 147/92 97 02/12/19 23:55 98 F 89 20 130/80 96 Intake and Output 02/13/19 02/13/19 02/13/19 06:59 14:59 22:59 Intake Total 240 Balance 240 Intake: Oral 240 Other: Voiding Method Urinal Urinal # Bowel Movements 1 Weight 99.79 kg 99.5 kg GENERAL: This is a -63 year-old in no apparent distress at the time of examination. Pleasant and cooperative. HEENT: Head is atraumatic, normocephalic. Pupils are equal, round, and reactive to light. Sclerae anicteric. Conjunctivae are clear. Mucus membranes of the mouth are moist. Neck is supple. RESPIRATORY: Clear to auscultation. No wheezes, rales, or rhonchi. No use of accessory muscles. No chest wall tenderness is noted on palpation or with deep breathing. CARDIOVASCULAR: Regular rate and rhythm. S1 and S2 noted. No systolic or diastolic murmur auscultated. No JVD noted. No S3 or S4 noted. GASTROINTESTINAL: No distention noted. Abdomen soft and round. Normal active bowel sounds auscultated x 4 quadrants. No pain. With evidence of gross blood per rectum. INTEGUMENTARY: No cyanosis. No jaundice. No rashes noted. No cellulitis noted. EXTREMITIES: 2+ peripheral pulses. No evidence of peripheral edema. No calf tenderness noted. NEUROLOGIC: Cranial nerves II-XII intact. PSYCHIATRIC: Awake, alert, and oriented X 3. Appropriate affect. Intact judgement and insight. Results CBC & Chem 7: 02/13/19 18:07 02/13/19 00:30 Labs: Abnormal Lab Results - Last 24 Hours (Table) 02/13/19 02/13/19 02/13/19 Range/Units 00:30 00:30 00:51 Hgb (13.0-17.5) gm/dL Hct (39.0-53.0) % PT 116.2 H (9.0-12.0) sec INR >10.0 H* (<1.2) APTT 78.8 H (22.0-30.0) sec Carbon Dioxide 18 L (22-30) mmol/L Glucose 107 H (74-99) mg/dL Urine Protein Trace H (Negative) Urine Blood Large H (Negative) Urine RBC 100 H (0-5) /hpf Amorphous Sediment Rare H (None) /hpf Urine Mucus Rare H (None) /hpf 02/13/19 02/13/19 02/13/19 Range/Units 07:26 18:07 18:07 Hgb 12.8 L (13.0-17.5) gm/dL Hct 37.2 L (39.0-53.0) % PT 102.1 H 18.1 H (9.0-12.0) sec INR >10.0 H* 1.8 H (<1.2) APTT (22.0-30.0) sec Carbon Dioxide (22-30) mmol/L Glucose (74-99) mg/dL Urine Protein (Negative) Urine Blood (Negative) Urine RBC (0-5) /hpf Amorphous Sediment (None) /hpf Urine Mucus (None) /hpf Thrombosis Risk Factor Assmnt - Choose All That Apply Each Factor Represents 1 point: Obesity (BMI >25) Each Risk Factor Represents 2 Points: Age 61-74 years Each Risk Factor Represents 3 Points: History of DVT/PE Thrombosis Risk Factor Assessment Total Risk Factor Score: 6 Thrombosis Risk Factor Assessment Level: High Risk Assessment and Plan (1) Coumadin toxicity Current Visit: Yes Status: Acute Code(s): T45.511A - POISONING BY ANTICOAGULANTS, ACCIDENTAL, INIT SNOMED Code(s): 04488690 (2) Lower gastrointestinal hemorrhage Current Visit: Yes Status: Acute Code(s): K92.2 - GASTROINTESTINAL HEMORRHAGE, UNSPECIFIED SNOMED Code(s): 17838202 (3) Spondylosis of lumbar region without myelopathy or radiculopathy Current Visit: No Status: Acute Code(s): M47.816 - SPONDYLOSIS W/O MYELOPATHY OR RADICULOPATHY, LUMBAR REGION SNOMED Code(s): 682328914 (4) History of coronary artery stent placement Current Visit: No Status: Chronic Code(s): Z95.5 - PRESENCE OF CORONARY ANGIOPLASTY IMPLANT AND GRAFT SNOMED Code(s): 087369902 (5) Ischemic heart disease Current Visit: No Status: Chronic Code(s): I25.9 - CHRONIC ISCHEMIC HEART DISEASE, UNSPECIFIED SNOMED Code(s): 708755331 (6) Hypothyroid Current Visit: Yes Status: Acute Code(s): E03.9 - HYPOTHYROIDISM, UNSPECIFIED SNOMED Code(s): 23739311 Plan: Plan is to admit patient with reversal of Coumadin toxicity with vitamin K hydration and GI consultation. Patient states he was scheduled for a colonoscopy to be done in January 2019 but had to reschedule which has not been done at this time we'll ask GI for evaluation. We'll check morning PT/INR and CBC continue to follow patient's progress. And 1 Time with Patient: Greater than 30
--- NOTE | 2019-02-13 22:39 | CONS ---
CONSULTATION DATE OF SERVICE: February 13, 2019. REQUESTING PHYSICIAN: Dr. Miki Nava. REASON FOR CONSULTATION: Rectal bleeding and history of GERD. HISTORY OF PRESENT ILLNESS: The patient is a 63-year-old pleasant white male with history of peripheral vascular disease on Coumadin. He was admitted to the hospital because of ongoing rectal bleeding and hematuria that has been going on for the last 2 months duration. The patient was scheduled to have an upper endoscopy as well as colonoscopy by me on January 19. However, he developed upper respiratory infection. The procedures were postponed. In the meantime, he started having more rectal bleeding almost on a daily basis. He has cramping lower abdominal pain that has been progressively getting worse for the last 2 weeks and every time he has an abdominal cramping, he usually has associated nausea and some diarrhea. Lately he has been having bright red blood per rectum with every bowel movement. He noted some blood in the urine also for the last 2 days. He got concerned, came to the emergency room and he was noted to have elevated INR at more than 10 and hence Coumadin was on hold and he was given vitamin K. He does have history of GERD and he has been on omeprazole 20 mg daily. PAST MEDICAL HISTORY: Significant for hypertension, hyperlipidemia, hypothyroidism, anxiety, depression, peripheral vascular disease and coronary artery disease. PAST SURGICAL HISTORY: Cholecystectomy, back surgery, cardiac cath with stent placement, hernia repair, back fusion, left hand surgery, right knee arthroscopy, EGD, colonoscopy in 2017, right shoulder arthroscopy. MEDICATIONS: At home include Lexapro, Norvasc, Coumadin, Nitrostat, Synthroid, clonidine, omeprazole. ALLERGIES: TO BETA-BLOCKERS, PAXIL, GABAPENTIN. SOCIAL HISTORY: Former smoker. No alcohol use. FAMILY HISTORY: Mother hypothyroidism. Father coronary artery disease. REVIEW OF SYSTEMS: CARDIOPULMONARY: No chest pain, shortness of breath. GENITOURINARY: No dysuria or hematuria. MUSCULOSKELETAL unremarkable. SKIN unremarkable. ENDOCRINE unremarkable. PSYCHIATRIC unremarkable. ENT/vision unremarkable. CONSTITUTIONAL: No recent weight loss. No fever, chills, night sweats. NEUROLOGY unremarkable. GI as mentioned above with rectal bleeding. HEMATOLOGY: Unremarkable. PHYSICAL EXAMINATION: He appears comfortable. No apparent distress. VITAL SIGNS: Stable. Blood pressure is 126/68, pulse is 63, temperature 97.2. HEENT examination unremarkable. Conjunctivae pink. Sclerae anicteric. Oral cavity no lesions. NECK: No JVD or lymph node enlargement. CHEST: Clear to auscultation. HEART: Regular rate and rhythm. ABDOMEN: Soft. Bowel sounds are positive. No organomegaly. EXTREMITIES: No pedal edema. SKIN no rashes. NEUROLOGIC: Alert and oriented x3. No focal deficits. LABS: WBC 7.3, hemoglobin 13.5, platelets normal. INR was more than 10 with a PTT of 116. BUN and creatinine are within normal limits. Stool occult blood was positive. Urinalysis showed large amount of blood. IMPRESSION: 1. Rectal bleeding for the last 2 months duration. The patient has been having 2-3 bowel movements daily with bright red blood per rectum almost on a daily basis. Hemoglobin surprisingly is within normal limits at 13.5 g/dL. 2. History of peripheral vascular disease on Coumadin with supratherapeutic INR. The patient received vitamin K in the ER. We will repeat INR tomorrow morning and hold Coumadin. 3. Hematuria. 4. Longstanding history of gastroesophageal reflux disease, on omeprazole 20 mg daily, doing well. 5. Cramping lower abdominal pain with intermittent nausea, vomiting and diarrhea, probably related to irritable bowel syndrome. RECOMMENDATIONS: 1. Hold Coumadin. 2. Cardiac diet. 3. Repeat PT/INR in the morning. 4. CBC on a daily basis. 5. We will proceed with an upper endoscopy and colonoscopy once INR is less than 1.5. Plan was discussed with the patient. He is agreeable to it. Thank you for this consultation. MMODL / KULWANTN: [id number] /
[2019-02-14] MEDS: SODIUM CHLORIDE 0.9% 1,000 ML IV SCH ×2 (03:44→10:17)
[2019-02-14] MEDS: LEVOTHYROXINE 75 MCG TAB PO SCH (06:02)
[2019-02-14 06:24] LABS: HCT 39.5 % (39.0-53.0); HGB 13.2 gm/dL (13.0-17.5); MCH 27.7 pg (25.0-35.0); MCHC 33.4 g/dL (31.0-37.0); MCV 82.7 fL (80.0-100.0); Mean Platelet Volume 8.3; Platelet Count 235 k/uL (150-450); RBC 4.78 m/uL (4.30-5.90); RDW 14.4 % (11.5-15.5); WBC 5.9 k/uL (3.8-10.6)
[2019-02-14] MEDS: ACETAMINOPHEN IV (For NPO) 1,000 MG in EMPTY BAG 1 BAG IVPB PRN ×2 (06:38)
[2019-02-14 06:45] LABS: African American GFR (CKD) >90 (>60 ml/min/1.73 sqM); Anion Gap 6 mmol/L; Blood Urea Nitrogen 12 mg/dL (9-20); Calcium 9.1 mg/dL (8.4-10.2); Carbon Dioxide 24 mmol/L (22-30); Chloride 109 mmol/L (98-107); Glucose 114 mg/dL (74-99); Non-African American GFR(CKD) >90 (>60 ml/min/1.73 sqM); Potassium 4.3 mmol/L (3.5-5.1); Sodium 139 mmol/L (137-145)
[2019-02-14 06:49] LABS: INR 1.3 (<1.2); Prothrombin Time 13.2 sec (9.0-12.0)
[2019-02-14] MEDS: FOLIC ACID 1 MG TAB PO SCH (10:05)
[2019-02-14] MEDS: MULTIVITAMINS, THERA 1 EACH TAB PO SCH (10:05)
[2019-02-14] MEDS: amLODIPine 5 MG TAB PO SCH (10:05)
[2019-02-14] MEDS: cloNIDine HCL 0.1 MG TAB PO SCH ×2 (10:05→20:15)
[2019-02-14] MEDS: ESCITALOPRAM 20 MG TAB PO SCH (10:05)
[2019-02-14] MEDS: PANTOPRAZOLE 40 MG/10 ML VIAL IV SCH (10:06)
[2019-02-14] MEDS: THIAMINE 100 MG TAB PO SCH (10:09)
--- NOTE | 2019-02-14 16:28 | P.PN ---
Subjective Progress Note Date: 02/14/19 This is a pleasant 63-year-old white male who is admitted to the hospital emergency department with acute gastrointestinal bleeding. Patient apparently went supratherapeutic and his INR when his dose was increased last week. He comes today with an INR of 10. He is also reported multiple bruising and some nose bleeding as well and also stated some hematuria. His Coumadin has been held at this time. And he is given some vitamin K. And on 9 on room to room boy 02/14/2019 INR down to 1.3, hemoglobin stable. No further bleeding. Vital signs stable. Evaluated by GI and patient is scheduled for both in EGD and colonoscopy on Tuesday. Objective - Vital Signs Vital signs: Vital Signs Temp 99 F 02/14/19 12:00 Pulse 58 L 02/14/19 12:00 Resp 18 02/14/19 12:00 BP 143/64 02/14/19 12:00 Pulse Ox 97 02/14/19 12:00 Intake & Output 02/13/19 02/14/19 02/14/19 18:59 06:59 18:59 Intake Total 240 480 Balance 240 480 Weight 99.5 kg 100.7 kg Intake: Oral 240 480 Other: Voiding Method Urinal Urinal Urinal # Voids 1 # Bowel Movements 1 - Exam GENERAL: This is a -63 year-old in no apparent distress at the time of examination. Pleasant and cooperative. HEENT: Head is atraumatic, normocephalic. Pupils are equal, round, and reactive to light. Sclerae anicteric. Conjunctivae are clear. Mucus membranes of the mouth are moist. Neck is supple. RESPIRATORY: Clear to auscultation. No wheezes, rales, or rhonchi. No use of accessory muscles. No chest wall tenderness is noted on palpation or with deep breathing. CARDIOVASCULAR: Regular rate and rhythm. S1 and S2 noted. No systolic or diastolic murmur auscultated. No JVD noted. No S3 or S4 noted. GASTROINTESTINAL: No distention noted. Abdomen soft and round. Normal active bowel sounds auscultated x 4 quadrants. No pain. With evidence of gross blood per rectum. INTEGUMENTARY: No cyanosis. No jaundice. No rashes noted. No cellulitis noted. EXTREMITIES: 2+ peripheral pulses. No evidence of peripheral edema. No calf tenderness noted. NEUROLOGIC: Cranial nerves II-XII intact. PSYCHIATRIC: Awake, alert, and oriented X 3. Appropriate affect. Intact judgement and insight. - Labs CBC & Chem 7: 02/14/19 05:54 02/14/19 05:54 Labs: Abnormal Lab Results - Last 24 Hours (Table) 02/13/19 02/13/19 02/14/19 Range/Units 18:07 18:07 05:54 Hgb 12.8 L (13.0-17.5) gm/dL Hct 37.2 L (39.0-53.0) % PT 18.1 H 13.2 H (9.0-12.0) sec INR 1.8 H 1.3 H (<1.2) Chloride (98-107) mmol/L Glucose (74-99) mg/dL 02/14/19 Range/Units 05:54 Hgb (13.0-17.5) gm/dL Hct (39.0-53.0) % PT (9.0-12.0) sec INR (<1.2) Chloride 109 H (98-107) mmol/L Glucose 114 H (74-99) mg/dL Assessment and Plan Assessment: (1) Coumadin toxicity Current Visit: Yes Status: Acute Code(s): T45.511A - POISONING BY ANT ICOAGULANTS, ACCIDENTAL, INIT SNOMED Code(s): 15654146 (2) Lower gastrointestinal hemorrhage Current Visit: Yes Status: Acute Code(s): K92.2 - GASTROINTESTINAL HEMORRHAGE, UNSPECIFIED SNOMED Code(s): 52764551 (3) Spondylosis of lumbar region without myelopathy or radiculopathy Current Visit: No Status: Acute Code(s): M47.816 - SPONDYLOSIS W/O MYELOPA THY OR RADICULOPATHY, LUMBAR REGION SNOMED Code(s): 977314999 (4) History of coronary artery stent placement Current Visit: No Status: Chronic Code(s): Z95.5 - PRESENCE OF CORONARY ANGIOPLASTY IMPLANT AND GRAFT SNOMED Code(s): 011656598 (5) Ischemic heart disease Current Visit: No Status: Chronic Code(s): I25.9 - CHRONIC ISCHEMIC HEART DISEASE, UNSPECIFIED SNOMED Code(s): 657142474 (6) Hypothyroid Current Visit: Yes Status: Acute Code(s): E03.9 - HYPOTHYROIDISM, UNSPECIFIED SNOMED Code(s): 30064657 Plan: Continue on current medication regime ,monitoring and symptomatic treatment. Anticoagulation remains on hold. Close monitoring of CBC with repeat labs ordered for a.m. Discussed with patient, darnell Piperquis once endoscopy workup completed. The impression and plan of care has been dictated as directed. : I performed a history and examination of this patient, discussed the same with the dictator. I agree with the dictator's note ,documented as a scribe. Any additional findings or plans will be noted.
--- NOTE | 2019-02-14 23:13 | PN ---
PROGRESS NOTE DATE OF SERVICE: February 14, 2018 Patient is a 63-year-old pleasant white male admitted to the hospital with rectal bleeding for the last few weeks duration. He has history of peripheral vascular disease on Coumadin with supratherapeutic INR. He received vitamin K and his INR is down to 1.3. In the meantime, rectal bleeding has completely resolved. He denies any abdominal pain. He has occasional lower abdominal cramping with loose bowel movements. PHYSICAL EXAMINATION: Appears comfortable in no distress. VITAL SIGNS: Stable. Blood pressure is 150/94, pulse is 54, temperature 98.6. HEENT examination: Unremarkable. Conjunctivae pink. Sclerae anicteric. Oral cavity no lesions. Neck: No JVD or lymph node enlargement. Chest was clear to auscultation. HEART: Regular rate and rhythm. ABDOMEN: Soft. Bowel sounds are positive. No organomegaly. Extremities: No pedal edema. Skin no rashes. NEUROLOGIC: Alert and oriented times three. No focal deficits. LABS: WBC 5.9, hemoglobin 13.2, platelets normal. INR is 1.3. Basic metabolic panel is within normal limits. IMPRESSION: 1. Rectal bleeding for the last 2 weeks duration. 2. Peripheral vascular disease, on Coumadin with supratherapeutic INR, which has been reversed with vitamin K. 3. Gastroesophageal reflux disease, on PPI and stable. RECOMMENDATION: The patient is scheduled for EGD colonoscopy for Tuesday morning. In the meantime, continue to continue to hold the Coumadin and monitor INR on a daily basis. Thank you for this consultation. MMODL / KULWANTN: [id number] /
[2019-02-15] MEDS: LEVOTHYROXINE 75 MCG TAB PO SCH (05:28)
[2019-02-15] MEDS: PANTOPRAZOLE 40 MG/10 ML VIAL IV SCH (08:24)
[2019-02-15] MEDS: FOLIC ACID 1 MG TAB PO SCH (08:24)
[2019-02-15] MEDS: THIAMINE 100 MG TAB PO SCH (08:24)
[2019-02-15] MEDS: ESCITALOPRAM 20 MG TAB PO SCH (08:24)
[2019-02-15] MEDS: amLODIPine 5 MG TAB PO SCH (08:24)
[2019-02-15] MEDS: MULTIVITAMINS, THERA 1 EACH TAB PO SCH (08:24)
[2019-02-15] MEDS: cloNIDine HCL 0.1 MG TAB PO SCH ×2 (08:24→20:42)
[2019-02-15 09:48] LABS: Basophils # (A) 0.1 k/uL (0-0.2); Basophils % (A) 1 %; Eosinophils # (A) 0.2 k/uL (0-0.7); Eosinophils % (A) 3 %; HCT 39.8 % (39.0-53.0); HGB 13.4 gm/dL (13.0-17.5); Lymphocytes # (A) 1.6 k/uL (1.0-4.8); Lymphocytes % (A) 27 %; MCH 27.8 pg (25.0-35.0); MCHC 33.6 g/dL (31.0-37.0); MCV 82.6 fL (80.0-100.0); Mean Platelet Volume 8.1; Monocytes # (A) 0.5 k/uL (0-1.0); Monocytes % (A) 8 %; Neutrophils # (A) 3.5 k/uL (1.3-7.7); Neutrophils % (A) 59 %; Platelet Count 242 k/uL (150-450); RBC 4.82 m/uL (4.30-5.90); RDW 14.4 % (11.5-15.5)
[2019-02-15 10:16] LABS: African American GFR (CKD) >90 (>60 ml/min/1.73 sqM); Anion Gap 11 mmol/L; Blood Urea Nitrogen 13 mg/dL (9-20); Calcium 9.6 mg/dL (8.4-10.2); Carbon Dioxide 21 mmol/L (22-30); Chloride 108 mmol/L (98-107); Glucose 120 mg/dL (74-99); Non-African American GFR(CKD) >90 (>60 ml/min/1.73 sqM); Sodium 140 mmol/L (137-145)
[2019-02-15] MEDS ORDERED: PEG 3350-NA SULF,BICARB,CL/KCL 4,000 ML BOTTLE PO ONE (17:00)
--- NOTE | 2019-02-15 18:42 | P.PN ---
Subjective Progress Note Date: 02/15/19 This is a pleasant 63-year-old white male who is admitted to the hospital emergency department with acute gastrointestinal bleeding. Patient apparently went supratherapeutic and his INR when his dose was increased last week. He comes today with an INR of 10. He is also reported multiple bruising and some nose bleeding as well and also stated some hematuria. His Coumadin has been held at this time. And he is given some vitamin K. And on 9 on room to room boy 02/14/2019 INR down to 1.3, hemoglobin stable. No further bleeding. Vital signs stable. Evaluated by GI and patient is scheduled for both in EGD and colonoscopy on Tuesday. 02/15/2019 no further bleeding, hemoglobin stable 13.4. Vital signs stable. Denies chest pain, palpitations or shortness of breath. Scheduled for EGD and colonoscopy tomorrow. Objective - Vital Signs Vital signs: Vital Signs Temp 97.7 F 02/15/19 13:10 Pulse 66 02/15/19 13:10 Resp 16 02/15/19 15:13 BP 157/88 02/15/19 13:10 Pulse Ox 99 02/15/19 13:10 Intake & Output 02/14/19 02/15/19 02/15/19 18:59 06:59 18:59 Intake Total 2080 1500 Balance 2079 1500 Intake: Oral 480 1500 Tube Feeding 800 Other 800 Other: Voiding Method Urinal Urinal Urinal # Voids 6 1 4 # Bowel Movements 4 - Exam GENERAL: Alert and oriented 3, no acute distress, ambulating in room. HEENT: Head is atraumatic, normocephalic. Pupils are equal, round, and reactive to light. Sclerae anicteric. Conjunctivae are clear. Mucus membranes of the mouth are moist. Neck is supple. RESPIRATORY: Clear to auscultation. No wheezes, rales, or rhonchi. No use of accessory muscles. No chest wall tenderness is noted on palpation or with deep breathing. CARDIOVASCULAR: Regular rate and rhythm. S1 and S2 noted. No systolic or diastolic murmur auscultated. No JVD noted. No S3 or S4 noted. GASTROINTESTINAL: No distention noted. Abdomen soft and round. Normal active bowel sounds auscultated x 4 quadrants. No pain. INTEGUMENTARY: No cyanosis. No jaundice. No rashes noted. No cellulitis noted. EXTREMITIES: 2+ peripheral pulses. No evidence of peripheral edema. No calf tenderness noted. NEUROLOGIC: Cranial nerves II-XII intact. PSYCHIATRIC: Awake, alert, and oriented X 3. Appropriate affect. Intact judgeme nt and insight. - Labs CBC & Chem 7: 02/15/19 09:15 02/15/19 09:15 Labs: Abnormal Lab Results - Last 24 Hours (Table) 02/15/19 Range/Units 09:15 Chloride 108 H (98-107) mmol/L Carbon Dioxide 21 L (22-30) mmol/L Glucose 120 H (74-99) mg/dL Assessment and Plan Assessment: (1) Coumadin toxicity Current Visit: Yes Status: Acute Code(s): T45.511A - POISONING BY ANTICOAGU LANTS, ACCIDENTAL, INIT SNOMED Code(s): 03266975 (2) Lower gastrointestinal hemorrhage Current Visit: Yes Status: Acute Code(s): K92.2 - GASTROINTESTINAL HEMORRHAGE, UNSPECIFIED SNOMED Code(s): 90490688 (3) Spondylosis of lumbar region without myelopathy or radiculopathy Current Visit: No Status: Acute Code(s): M47.816 - SPONDYLOSIS W/O MYELOPATHY OR RADICULOPATHY, LUMBAR REGION SNOMED Code(s): 765245186 (4) History of coronary artery stent placement Current Visit: No Status: Chronic Code(s): Z95.5 - PRESENCE OF CORONARY A NGIOPLASTY IMPLANT AND GRAFT SNOMED Code(s): 121720906 (5) Ischemic heart disease Current Visit: No Status: Chronic Code(s): I25.9 - CHRONIC ISCHEMIC HEART DISEASE, UNSPECIFIED SNOMED Code(s): 877118647 (6) Hypothyroid Current Visit: Yes Status: Acute Code(s): E03.9 - HYPOTHYROIDISM, UNSPECIFIED SNOMED Code(s): 71176289 Plan: Continue on current medication regime ,monitoring and symptomatic treatment. Continue holding anticoagulation. Nothing by mouth at midnight. Colonoscopy and EGD tomorrow with prep as per GI . Discharge planning for tomorrow. Case management to verify [facility] outpatient coverage. The impression and plan of care has been dictated as directed. : I performed a history and examination of this patient, discussed the same with the dictator. I agree with the dictator's note ,documented as a scribe. Any additional findings or plans will be noted.
[2019-02-15] MEDS: SODIUM CHLORIDE 0.9% 1,000 ML IV SCH (20:41)
--- NOTE | 2019-02-15 23:17 | PN ---
PROGRESS NOTE DATE OF DICTATION: 02/15/2019 The patient is 63 -year-old pleasant white male admitted to the hospital with acute bleeding of two months duration. He was on Coumadin with supratherapeutic INR. Coumadin has been on hold and coagulopathy has been reversed with vitamin K. In the meantime, the bleeding has subsided. He is scheduled for an EGD/colonoscopy tomorrow. Patient denies any new symptoms. PHYSICAL EXAMINATION: Appears comfortable, in no apparent distress. VITAL SIGNS: Stable. Blood pressure is 157/88, pulse 56, temperature HEENT examination unremarkable. Conjunctivae pink. Sclerae anicteric. Oral cavity no lesions. NECK: No JVD or lymph node enlargement. CHEST: Clear to auscultation. HEART: Regular rate and rhythm. ABDOMEN: Soft. Bowel sounds are positive. No organomegaly. EXTREMITIES: No pedal edema. Skin no rashes. NEUROLOGIC: Alert and oriented x3. No focal deficits. LABS: From today: Hemoglobin is 13.4, WBC 6, platelets normal. INR is 1.3. BUN and creatinine are within normal limits. IMPRESSION: 1. Rectal bleeding, resolved. Hemoglobin remains stable. 2. Gastroesophageal reflux disease. 3. History of peripheral vascular disease on Coumadin, currently on hold. INR is 1.3. RECOMMENDATIONS: Proceed with EGD and colonoscopy tomorrow. Discussed with the patient risks, benefits and complications of the procedure and he is agreeable to it. Thank you for this consultation. MMODL / IJN: [id number] /
[2019-02-16] MEDS ORDERED: LACTATED RINGERS 1,000 ML IV SCH (02:00)
[2019-02-16] MEDS: SODIUM CHLORIDE 0.9% 1,000 ML IV SCH ×2 (05:32→08:06)
[2019-02-16] MEDS: LEVOTHYROXINE 75 MCG TAB PO SCH (05:32)
[2019-02-16 06:26] VITALS: TEMP 97.9
[2019-02-16] MEDS ORDERED: LIDOCAINE 1% INJ 10MG/ML (20 ML MDV) ONE (06:58)
[2019-02-16] MEDS ORDERED: PROPOFOL 10 MG/ML 20 ML VIAL IV ONE (06:58)
[2019-02-16] MEDS ORDERED: IV FLUID CONTINUATION 900 ML IV ONE (06:58)
--- NOTE | 2019-02-16 07:30 | P.PCN ---
Date of Procedure: 02/16/19 Procedure(s) Performed: Brief history: Patient is a pleasant 63-year-old white male admitted to the hospital with rectal bleeding and worsening GERD symptoms for the last few weeks duration. He was scheduled for an elective upper endoscopy as well as colonoscopy on an outpatient basis but procedure being done while in the hospital. He has supratherapeutic INR and the time of admission to hospital and the coagulopathy has been reversed. INR was 1.3 yesterday. Procedure performed: Esophagogastroduodenoscopy with biopsy Colonoscopy with snare polypectomy Preoperative diagnosis: GERD/rectal bleeding Anesthesia: MAC Procedure: After informed consent was obtained from the patient was brought into the endoscopy unit and IV sedation was administered by anesthesia under continuous monitoring. Initially upper endoscopy was done. The Olympus GF 160 video endoscope was inserted inserted into the mouth and esophagus intubated without any difficulty and was gradually advanced into the stomach and duodenum and carefully examined. The bulb and second part of the duodenum appeared normal. The scope was then withdrawn into the stomach adequately insufflated with air and upon careful examination the antrum had mild diffuse gastritis and biopsies were done from this area. The body, cardia and fundus appeared normal. The scope was then withdrawn into the esophagus. The GE junction was located at 40 cm to the incsmall sliding type hiatal hernia noted.It appeared regular with no erythema erosions or ulcerations. Rest of the esophagus appeared normal. Patient tolerated the procedure well. At this time the patient continued to remain sedation. Initial digital rectal examination was normal. Olympus CF 160 video colonoscope was then inserted into the rectum and gradually advanced to the cecum without any difficulty. Careful examination was performed as the scope was gradually being withdrawn. The prep was excellent. In the base of the cecum there was a 5 limited sessile polyp removed by snare polypectomy. In the ascending colon there was a 3 mm polyp removed by snare polypectomy. In the descending colon there was another 5 mm polyp removed by snare polypectomy. In the distal sigmoid colon there was a 1.5 cm peduncular polyp removed by snare polypectomy. Rest of the sigmoid colon and rectum appeared normal. Retroflexion was performed in the rectum and grade 2 internal hemorrhoids were noted. Patient tolerated the procedure well. Impression: 1. Upper endoscopy revealed mild antral gastritis and small hiatal hernia 2. Colonoscopy revealed: a) 5 mm cecal polyp status post snare polyp rectum b) 3 mm ascending colon polyp status post polypectomy c) 5 mm descending colon polyp status post snare polyp d) 1 cm distal sigmoid colon polyp status post polypectomy e) grade 2 internal hemorrhoids Recommendations: Findings of this examination were discussed with the patient . He was advised to follow with the biopsy results. He'll be seen in office in 2 weeks. Diet will be advanced as tolerated. Resume Coumadin and he can be discharged home today.
[2019-02-16 07:58] VITALS: BP 157/92; PULSE 68; RESP 16
[2019-02-16] MEDS ORDERED: ONDANSETRON 4 MG/2 ML VIAL IVP PRN ×2 (08:04→08:44)
[2019-02-16] MEDS: ESCITALOPRAM 20 MG TAB PO SCH (08:05)
[2019-02-16] MEDS: cloNIDine HCL 0.1 MG TAB PO SCH (08:05)
[2019-02-16] MEDS: amLODIPine 5 MG TAB PO SCH (08:05)
[2019-02-16] MEDS: PANTOPRAZOLE 40 MG/10 ML VIAL IV SCH (08:05)
[2019-02-16] MEDS: FOLIC ACID 1 MG TAB PO SCH (08:05)
[2019-02-16] MEDS: THIAMINE 100 MG TAB PO SCH (08:05)
[2019-02-16] MEDS: MULTIVITAMINS, THERA 1 EACH TAB PO SCH (08:05)
--- NOTE | 2019-02-16 17:11 | P.DS ---
Providers Date of admission: 02/15/19 09:31 Expected date of discharge: 02/16/19 Attending physician: Miki Nava Consults: 02/13/19 02:05 Consult Physician Routine Consulting Provider: Caridad Patrick Consult Reason/Comments: GI Bleeding Do you want consulting provider notified?: Yes Primary care physician: Miki Nava [facility] Course: Final diagnoses: (1) Coumadin toxicity Current Visit: Yes Status: Acute Code(s): T45.511A - POISONING BY ANTICOAGULANTS, ACCIDENTAL, INIT SNOMED Code(s): 67624147 (2) Lower gastrointestinal hemorrhage, status post EGD and colonoscopy reporting mild gastritis, small hiatal hernia, cecum, ascending, descending, sigmoid polyps, status post polypectomy, grade 2 internal hemorrhoids. Current Visit: Yes Status: Acute Code(s): K92.2 - GASTROINTESTINAL HEMORRHAGE, UNSPECIFIED SNOMED Code(s): 47169331 (3) Spondylosis of lumbar region without myelopathy or radiculopathy Current Visit: No Status: Acute Code(s): M47.816 - SPONDYLOSIS W/O MYELOPATHY OR RADICULOPATHY, LUMBAR REGION SNOMED Code(s): 782851821 (4) History of coronary artery stent placement Current Visit: No Status: Chronic Code(s): Z95.5 - PRESENCE OF CORONARY ANGIOPLASTY IMPLANT AND GRAFT SNOMED Code(s): 597776149 (5) Ischemic heart disease Current Visit: No Status: Chronic Code(s): I25.9 - CHRONIC ISCHEMIC HEART DISEASE, UNSPECIFIED SNOMED Code(s): 196902157 (6) Hypothyroid Current Visit: Yes Status: Acute Code(s): E03.9 - HYPOTHYROIDISM, UNSPECIFIED SNOMED Code(s): 01155876 Hospital course:This is a pleasant 63-year-old white male who is admitted to the hospital emergency department with acute gastrointestinal bleeding. Patient apparently went supratherapeutic and his INR when his dose was increased last week. He comes today with an INR of 10. He is also reported multiple bruising and some nose bleeding as well and also stated some hematuria. His Coumadin has been held at this time. And he is given some vitamin K. And on 9 on room to room boy 02/14/2019 INR down to 1.3, hemoglobin stable. No further bleeding. Vital signs stable. Evaluated by GI and patient is scheduled for both in EGD and colonoscopy on Tuesday. 02/15/2019 no further bleeding, hemoglobin stable 13.4. Vital signs stable. Denies chest pain, palpitations or shortness of breath. Scheduled for EGD and colonoscopy tomorrow. Completed EGD and colonoscopy reporting mild gastritis, small hiatal hernia, cecum, ascending, descending, sigmoid polyps status post polypectomy, grade 2 internal hemorrhoids With biopsies obtained. Tolerated procedure well. Cleared by GI for discharge. Patient is being discharged home in a stable condition with guarded prognosis. Switching patient from Coumadin over to Eliquis. Eliquis to be initiated tomorrow. EXAM: GENERAL: Alert and oriented 3, no acute distress CARDIOVASCULAR: S1, S2 regular.. No murmur RESPIRATION: Breath sounds diminished in the bases. ABDOMEN: Soft, nontender . No guarding. Bowel sounds heard. NERVOUS SYSTEM: No focal deficits. The impression and plan of care has been dictated as directed. : I performed a history and examination of this patient, discussed the same with the dictator. I agree with the dictator's note ,documented as a scribe. Any additional findings or plans will be noted. Patient Condition at Discharge: Stable Plan - Discharge Summary Discharge Rx Participant: No New Discharge Prescriptions: New Apixaban [Eliquis Starter Pack (for VTE)] 0 mg PO DIRECTED 30 Days #1 pack Folic Acid 1 mg PO DAILY #30 tab Multivitamins, Thera [Multivitamin (formulary)] 1 each PO DAILY #30 tab Thiamine [Vitamin B-1] 100 mg PO DAILY #30 tab Pantoprazole Sodium [Protonix] 40 mg PO DAILY #30 tablet. Continue cloNIDine HCL [Clonidine HCl] 0.1 mg PO BID Levothyroxine Sodium [Synthroid] 75 mcg PO DAILY Omeprazole 20 mg PO DAILY Nitroglycerin Sl Tabs [Nitrostat] 0.4 mg SUBLINGUAL Q5M PRN PRN Reason: Chest Pain Escitalopram [Lexapro] 20 mg PO DAILY amLODIPine [Norvasc] 5 mg PO DAILY Albuterol Sulfate [Proair Hfa] 2 puff INHALATION RT-Q6H PRN PRN Reason: Shortness Of Breath Discontinued Warfarin [Coumadin] 7.5 mg PO SUMOWEFRSA Warfarin [Coumadin] 5 mg PO TUTH Discharge Medication List cloNIDine HCL [Clonidine HCl] 0.1 mg PO BID 11/16/15 [History] Levothyroxine Sodium [Synthroid] 75 mcg PO DAILY 05/04/16 [History] Omeprazole 20 mg PO DAILY 05/04/16 [History] Nitroglycerin Sl Tabs [Nitrostat] 0.4 mg SUBLINGUAL Q5M PRN 07/19/16 [History] Escitalopram [Lexapro] 20 mg PO DAILY 12/16/16 [History] amLODIPine [Norvasc] 5 mg PO DAILY 02/07/18 [History] Albuterol Sulfate [Proair Hfa] 2 puff INHALATION RT-Q6H PRN 02/13/19 [History] Apixaban [Eliquis Starter Pack (for VTE)] 0 mg PO DIRECTED 30 Days #1 pack 02/15/19 [Rx] Folic Acid 1 mg PO DAILY #30 tab 02/16/19 [Rx] Multivitamins, Thera [Multivitamin (formulary)] 1 each PO DAILY #30 tab 02/16/19 [Rx] Pantoprazole Sodium [Protonix] 40 mg PO DAILY #30 tablet.dr 02/16/19 [Rx] Thiamine [Vitamin B-1] 100 mg PO DAILY #30 tab 02/16/19 [Rx] Follow up Appointment(s)/Referral(s): Miki Nava DO [Primary Care Provider] - 1 Week (Please call office to make appointment) Caridad Patrick MD [STAFF PHYSICIAN] - 03/13/19 8:45 am Ambulatory/Diagnostic Orders: Complete Blood Count w/diff [LAB.AMB] Time Frame: 3 Days, Location: None Selected Patient Instructions/Handouts: Hiatal Hernia (DC), Gastritis (DC) Activity/Diet/Wound Care/Special Instructions: Start eliquis Tomorrow Olds cardiac diet Activity as tolerated. Discharge Disposition: HOME SELF-CARE
--- NOTE | 2019-02-20 11:02 | CDI ---
Documentation Clarification Form Date: 02/20/2019 10:54:20 AM From: Grecia Sanchez Phone: If you have a question about this query, please contact Meghana Salguero Pest Control Supervisor at [phone] between 8am and 5pm. Admit Date: 02/15/2019 09:31:00 AM Patient Name: Anjum Rueda Visit Number: [id number] Discharge Date: 02/16/2019 10:14:00 AM ATTENTION: The Clinical Documentation Specialists (CDI) and [facility] Coding Staff appreciate your assistance in clarifying documentation. Please respond to the clarification below the line at the bottom and electronically sign. The CDI & [facility] Coding staff will review the response and follow-up if needed. Please note: Queries are made part of the Legal Health Record. If you have any questions, please contact the author of this message via ITS. Dr. Miki Nava Patient presented with rectal bleeding. Patient also has documented Coumadin Toxicity. Please clarify if the rectal bleeding is due to the Coumadin Toxicity. Patient history/risk factors: Sub therapeutic INR Clinical Indicators: INR on admit is 10.0 EGD/colonoscopy performed and findings: gastritis and multiple colon polyps Treatment: Hold Coumadin Medication: Vitamin K Consults: Gastroenterology In your professional opinion, can you please clarify the underlying cause of GI bleed if known? Coumadin toxicity Other, please specify Unable to determine Patient's gastrointestinal bleed was due to colonic polyps that was exacerbated by a Coumadin toxicity with an INR greater than 10 that made the bleeding excessive. MTDD
== END 2019-02-16 10:14 | disposition home or self-care (01) ==
LOC: EC 23:23 → 3SCARD 02-13 02:04 → 6NMEDSUR 02-14 17:28 → INTOOBSV 02-15 09:31 → OBSVTOIN 02-15 09:31 → UNDODISIN 02-16 10:14
PROVIDERS: ADMIT Family Medicine; ATTEND Family Medicine
DX: D68.32 Hemorrhagic disorder due to extrinsic circulating anticoagulants (principal); M47.16 Other spondylosis with myelopathy, lumbar region; T45.515A Adverse effect of anticoagulants, initial encounter; E03.9 Hypothyroidism, unspecified; E78.5 Hyperlipidemia, unspecified; F32.9 Major depressive disorder, single episode, unspecified; I10 Essential (primary) hypertension; I25.10 Atherosclerotic heart disease of native coronary artery without angina pectoris; I25.2 Old myocardial infarction; I73.9 Peripheral vascular disease, unspecified; K21.9 Gastro-esophageal reflux disease without esophagitis; K29.70 Gastritis, unspecified, without bleeding; K44.9 Diaphragmatic hernia without obstruction or gangrene; K58.0 Irritable bowel syndrome with diarrhea; K64.1 Second degree hemorrhoids; R04.0 Epistaxis; R31.9 Hematuria, unspecified; Z79.01 Long term (current) use of anticoagulants; Z79.890 Hormone replacement therapy; Z79.899 Other long term (current) drug therapy; Z80.8 Family history of malignant neoplasm of other organs or systems; Z82.49 Family history of ischemic heart disease and other diseases of the circulatory system; Z87.891 Personal history of nicotine dependence; Z95.5 Presence of coronary angioplasty implant and graft; Z90.49 Acquired absence of other specified parts of digestive tract; Z98.1 Arthrodesis status; Z87.01 Personal history of pneumonia (recurrent); D12.0 Benign neoplasm of cecum; D12.4 Benign neoplasm of descending colon; D12.5 Benign neoplasm of sigmoid colon
CPT/HCPCS: 96376 ×2; 96361 ×2; 96365 ×2; 96366; 96375; 99285; 36415; 93005; 86900; 86901; 88305; 80053; 80048 ×2; 83605; 84484; 85025 ×2; 85027 ×2; 85610 ×2; 85730; 86850; 82272; 81001; 45385; 43239; G0378 ×5; J3430; J2405; J2001; J0131 ×2; J2704; C9113 ×4; J1170

== ENCOUNTER 2019-04-11 07:10 | Day surgery (SDC) | payer MEDICARE ==
[2019-04-06 16:07] VITALS: BMI 30.2
--- NOTE | 2019-04-10 14:23 | HP ---
HISTORY AND PHYSICAL Surgery is 04/11/2019. Anjum Rueda is a 63-year-old patient seen with progressive left shoulder pain. We discussed options for treatment. He elected to proceed with arthroscopy. Consent was obtained. Medical clearance was provided by Dr. Miki Nava. PAST MEDICAL HISTORY: Hypertension, hypothyroidism, chronic low back pain, coronary artery disease. PAST SURGICAL HISTORY: Left ankle surgery, right knee arthroscopy, spinal fusion, cholecystectomy, cardiac catheterization with stent insertion, right shoulder arthroscopy. DAILY MEDICATIONS: 1. Eliquis. 2. Omeprazole. 3. Amlodipine. 4. Lexapro. 5. Synthroid. ALLERGIES: CODEINE causing GI upset, BETA BLOCKERS which cause rash, PAXIL GI upset, INDERAL rash. SOCIAL HISTORY: Denies tobacco use. PHYSICAL EXAMINATION: Evaluation of the left shoulder: Flexion is 160, abduction is 150, external rotation is 40 with pain and weakness. There is tenderness along the anterolateral acromion and rotator cuff insertion site. Impingement sign is positive at 100. Cross adduction sign is positive. Drop arm sign is positive. Distal neurovascular exam is intact. RADIOGRAPHS: Radiographs of the left shoulder revealed a type 2 anterior acromion, acromioclavicular joint osteoarthritis, and cystic changes of the tuberosity. IMPRESSION: 1. Left shoulder impingement with probable rotator cuff tear. 2. Left shoulder acromioclavicular joint osteoarthritis. 3. Hypertension. 4. Hypothyroidism. 5. Coronary artery disease. PLAN: Left shoulder arthroscopy with subacromial decompression, probable arthroscopic rotator cuff repair, Anahi procedure, possible biceps tenotomy and debridement. Surgery is 04/11/2019. MMODL / IJN: [id number] /
[~2019-04-11 07:10] MED LIST changes: +DEXAMETHASONE SOD PHOSPHATE 10 MG/ML 1 ML VIAL IV ONE; +HYDROmorphone 0.5 MG/0.5 ML SYRINGE IVP PRN; +LIDOCAINE 1% (10MG/ML) FOR IV START INTRADERMA PRN; +MIDAZOLAM 2 MG/2 ML VIAL IV PRN; +ONDANSETRON 4 MG/2 ML VIAL IVP ONE; +fentaNYL (PF) 50 MCG/ML 2 ML AMP IVP PRN
[2019-04-11] MEDS ORDERED: fentaNYL (PF) 50 MCG/ML 2 ML AMP IVP ONE (08:03)
--- NOTE | 2019-04-11 08:16 | P.ANPRN ---
Procedure Note - Anesthesia - Nerve Block Performed Left Interscalene Single Time Out Performed: Yes Date of Procedure: 04/11/19 Procedure Start Time: 08:00 Procedure Stop Time: 08:09 Location of Patient: PreOp Indication: Requested by Surgeon Specifically requested for management of pain by DrTeresa: Marcio Mancini Sedation Type: Sedate with meaningful contact maintained Position: Supine Needle Types: Pajunk Needle Gauge: 21 Ultrasound used to visualize needle placement: Yes Ultrasound used to observe medication spread: Yes Injectate: 0.5% Ropivacaine (see comment for volume) (20 ml plus 4 mg dexamethason) Blood Aspirated: No Pain Paresthesia on Injection Noted: No Resistance on Injection: Normal Image Stored and Saved: Yes Events: Uneventful and Well Tolerated
[2019-04-11] MEDS ORDERED: NEOSTIGMINE 1 MG/ML 10 ML VIAL ONE (08:23)
[2019-04-11] MEDS ORDERED: ROCURONIUM BROMIDE 10 MG/ML 5 ML VIAL IV ONE (08:23)
[2019-04-11] MEDS ORDERED: DEXAMETHASONE SOD PHOSPHATE 4 MG/ML 1 ML VIAL ONE (08:23)
[2019-04-11] MEDS ORDERED: ePHEDrine SULFATE/0.9% NACL/PF 50 MG/5 ML SYRINGE IV ONE (08:23)
[2019-04-11] MEDS ORDERED: PHENYLEPHRINE-0.9% NACL SYG 1 MG/10 ML SYRINGE ONE (08:23)
[2019-04-11] MEDS ORDERED: PROPOFOL 10 MG/ML 20 ML VIAL IV ONE (08:23)
[2019-04-11] MEDS ORDERED: LIDOCAINE 1% INJ 10MG/ML (20 ML MDV) ONE (08:23)
[2019-04-11] MEDS ORDERED: ROPIVACAINE 5 MG/ML 30 ML VIAL ONE (08:23)
[2019-04-11] MEDS ORDERED: MIDAZOLAM 2 MG/2 ML VIAL ONE (08:23)
[2019-04-11] MEDS ORDERED: SUCCINYLCHOLINE CHLORIDE 100 MG/5 ML SYR IV ONE (08:23)
[2019-04-11] MEDS ORDERED: fentaNYL (PF) 50 MCG/ML 2 ML AMP ONE (08:23)
[2019-04-11] MEDS ORDERED: GLYCOPYRROLATE 0.2 MG/ML 2 ML VIAL ONE (08:23)
[2019-04-11] MEDS ORDERED: LACTATED RINGERS 1,000 ML IV ONE (09:53)
--- NOTE | 2019-04-11 10:14 | P.OP ---
Date of Procedure: 04/11/19 Preoperative Diagnosis: Left shoulder impingement Postoperative Diagnosis: 1. Left shoulder rotator cuff tear 2. Left shoulder impingement 3. Left shoulder acromioclavicular joint osteoarthritis 4. Left shoulder partial long head biceps tendon tear 5. Left shoulder superficial anterior labral tear Procedure(s) Performed: 1. Left shoulder arthroscopic rotator cuff repair 2. Left shoulder arthroscopic subacromial decompression 3. Left shoulder arthroscopic Anahi procedure 4. Left shoulder arthroscopic biceps tenotomy 5. Left shoulder arthroscopic debridement labral tear Implants: 1Arthrex 4.75 swivel lock anchor Anesthesia: GETA, regional (Interscalene block) Surgeon: Marcio Mancini Resource Development Manager #1: Milo Correa Estimated Blood Loss (ml): 10 Pathology: none sent Condition: stable Disposition: PACU Indications for Procedure: 64-year-old patient seen with progressive left shoulder pain. After treatment options were discussed, he elected to proceed with arthroscopy. Operative Findings: see description of procedure Description of Procedure: Patient underwent an interscalene block by department of anesthesia. The patient was then taken to the operative suite. The patient underwent a general anesthetic by the department of anesthesia. The patient was placed into a lateral position and secured. There was appropriate padding of the bony pr ominence. Left shoulder was then prepped and draped in normal sterile orthopedic fashion. We placed the extremity in 10 pounds of longitudinal traction. A posterior incision was now made for a posterior working portal site. The trocar and cannula were inserted into the glenohumeral joint. Arthroscopy was initiated. Spinal needle was now inserted anteriorly, to ascertain the anterior working portal site. An incision was now made in that area, a trocar was inserted followed by a probe. There was some superficial tearing along the anterior labrum. There was grade 1 chondral moist changes along the anterior aspect of the glenoid. The humeral head was unremarkable. The remaining labrum appeared stable. There was some partial tearing of the long head biceps tendon along the area of the anchor. I performed an arthroscopic biceps tenotomy. I debrided that superficial labral tear. The residual labrum was stable. Instruments were now removed from glenohumeral joint. Utilizing the posterior working portal site, the trocar and cannula were inserted into the subacromial space. Arthroscopy initiated. I made an incision 2 fingerbreadths lateral to the acromion. I introduced my trocar followed by my ArthroCare ablator. I now began ablating thick subacromial bursal tissue, which exposed the undersurface of the anterior acromion. There was diminished subacromial space. There was a very prominent anterior acromion. A motorized bur was introduced and a subacromial decompression was performed. I also excised some osteophytes off the inferior aspect of the distal clavicle. The AC joint was visualized and noted to be fairly arthritic. The motorized bur was introduced in the anterior portal site and a Naahi procedure was performed without difficulty, decompressing the AC joint nicely. I turned my attention to the rotator cuff. There was a 11.5 cm rotator cuff tear along the posterior aspect of the distal supraspinatus. I debrided the margins getting down to stable tendon tissue. I abraded the footprint with a motorized bur. I passed 2 everted mattress sutures through good bites of rotator cuff tendon. I now punched hole in the area of the footprint for insertion of an anchor. I now passed the sutures through the eyelet of a 4.75 Arthrex swivel lock anchor. I now introduced the eyelet into our pre-punch hole. Warren KRUSE tension all the sutures and applied the anchor with good fixation noted. All residual suture limbs were now clipped. We had good compression of the tendon along the entire footprint. I injected 1 mL Renyte intra-articular. Instruments now removed from the portal sites. All portal sites were approximated with nylon suture. Sterile dressings were applied followed by a shoulder sling. Milo KRUSE assisted in this complex case. The patient was awakened, transferred to a bed, and taken to recovery in stable condition.
[2019-04-11 10:34] VITALS: RESP 18; TEMP 97.3
[2019-04-11 11:29] VITALS: BP 135/83
[2019-04-11 11:33] VITALS: PULSE 79
== END 2019-04-11 12:20 | disposition home or self-care (01) ==
LOC: OR 07:10
PROVIDERS: ATTEND Orthopaedic Surgery
DX: M75.102 Unspecified rotator cuff tear or rupture of left shoulder, not specified as traumatic (principal); M75.42 Impingement syndrome of left shoulder; M19.012 Primary osteoarthritis, left shoulder; S46.112A Strain of muscle, fascia and tendon of long head of biceps, left arm, initial encounter; S43.432A Superior glenoid labrum lesion of left shoulder, initial encounter; I12.9 Hypertensive chronic kidney disease with stage 1 through stage 4 chronic kidney disease, or unspecified chronic kidney disease; J44.9 Chronic obstructive pulmonary disease, unspecified; N18.1 Chronic kidney disease, stage 1; E03.9 Hypothyroidism, unspecified; I25.10 Atherosclerotic heart disease of native coronary artery without angina pectoris; G89.29 Other chronic pain; M54.5 Low back pain; K08.89 Other specified disorders of teeth and supporting structures; I25.2 Old myocardial infarction; E78.5 Hyperlipidemia, unspecified; G43.909 Migraine, unspecified, not intractable, without status migrainosus; M51.9 Unspecified thoracic, thoracolumbar and lumbosacral intervertebral disc disorder; M54.10 Radiculopathy, site unspecified; K21.9 Gastro-esophageal reflux disease without esophagitis; K58.9 Irritable bowel syndrome, unspecified; K57.90 Diverticulosis of intestine, part unspecified, without perforation or abscess without bleeding; Z88.5 Allergy status to narcotic agent; Z88.8 Allergy status to other drugs, medicaments and biological substances; Z79.01 Long term (current) use of anticoagulants; Z79.899 Other long term (current) drug therapy; Z79.890 Hormone replacement therapy; Z98.890 Other specified postprocedural states; Z95.5 Presence of coronary angioplasty implant and graft; Z90.49 Acquired absence of other specified parts of digestive tract; Z98.1 Arthrodesis status; Z87.891 Personal history of nicotine dependence; X58.XXXA Exposure to other specified factors, initial encounter
CPT/HCPCS: 76942; 64415; 29827; 29826; 29824; C1713; Q4212; J2250; J1100 ×2; J2710; J0690; J2405; J2001; J3010; J2795; J2370; J0330; J2704

== ENCOUNTER 2019-06-17 16:53 | Inpatient (IN) | payer MEDICARE ==
[2019-06-17 17:36] LABS: Basophils % (A) 0 %; Eosinophils # (A) 0.2 k/uL (0-0.7); Eosinophils % (A) 2 %; HCT 43.2 % (39.0-53.0); HGB 14.7 gm/dL (13.0-17.5); Lymphocytes # (A) 1.5 k/uL (1.0-4.8); Lymphocytes % (A) 22 %; MCH 28.4 pg (25.0-35.0); MCHC 34.1 g/dL (31.0-37.0); MCV 83.4 fL (80.0-100.0); Mean Platelet Volume 7.7; Monocytes # (A) 0.4 k/uL (0-1.0); Monocytes % (A) 7 %; Neutrophils # (A) 4.5 k/uL (1.3-7.7); Neutrophils % (A) 67 %; Partial Thromboplastin Time 22.6 sec (22.0-30.0); Platelet Count 256 k/uL (150-450); Prothrombin Time 10.1 sec (9.0-12.0); RBC 5.17 m/uL (4.30-5.90); RDW 14.8 % (11.5-15.5); WBC 6.8 k/uL (3.8-10.6)
--- NOTE | 2019-06-17 17:38 | XR ---
EXAMINATION TYPE: XR chest 2V DATE OF EXAM: 06/17/2019 COMPARISON: Prior chest x-ray 10/30/2018 HISTORY: Chest pain TECHNIQUE: Frontal and lateral views of the chest are obtained. FINDINGS: There is no focal air space opacity, pleural effusion, or pneumothorax seen. The cardiac silhouette size is within normal limits. The osseous structures are intact. There are overlying car diac leads. Aorta is dense. IMPRESSION: No acute cardiopulmonary process.
[2019-06-17 17:41] LABS: ALT 21 U/L (4-49); AST 26 U/L (17-59); African American GFR (CKD) >90 (>60 ml/min/1.73 sqM); Albumin 4.4 g/dL (3.5-5.0); Alkaline Phosphatase 113 U/L (38-126); Anion Gap 11 mmol/L; Blood Urea Nitrogen 15 mg/dL (9-20); Calcium 9.6 mg/dL (8.4-10.2); Carbon Dioxide 20 mmol/L (22-30); Chloride 107 mmol/L (98-107); Glucose 121 mg/dL (74-99); Magnesium 2.1 mg/dL (1.6-2.3); Non-African American GFR(CKD) 87 (>60 ml/min/1.73 sqM); Potassium 3.8 mmol/L (3.5-5.1); Sodium 138 mmol/L (137-145); Total Bilirubin 0.4 mg/dL (0.2-1.3); Total Protein 7.2 g/dL (6.3-8.2)
[2019-06-17] MEDS ORDERED: HEPARIN SODIUM,PORCINE 5,000 UNIT/ML 1 ML VIAL IV PRN (17:53)
[2019-06-17] MEDS ORDERED: HEPARIN SODIUM,PORCINE 5,000 UNIT/ML 1 ML VIAL IV ONE (17:53)
[2019-06-17] MEDS ORDERED: NITROGLYCERIN OINT 1 INCH/GM PACKET TOPICAL STA (17:55)
[2019-06-17] MEDS ORDERED: HEPARIN SOD,PORK IN 0.45% NACL 25,000 UNIT in 0.45% NACL 1 250ML.BAG IV SCH (18:00)
[2019-06-17] MEDS ORDERED: NITROGLYCERIN SL TABS 0.4 MG TAB SUBLINGUAL PRN (18:01)
--- NOTE | 2019-06-17 18:02 | ED ---
General Adult HPI - General Source: patient, EMS Mode of arrival: EMS Limitations: no limitations <Kirstin Schofield - Last Filed: 06/17/19 17:55> <Omar Jordan - Last Filed: 06/17/19 18:24> - General Chief complaint: Chest Pain Stated complaint: Chest pain Time Seen by Provider: 06/17/19 16:55 - History of Present Illness Initial comments: 64-year-old male patient is brought by EMS to the emergency department today for evaluation of chest pain. Patient states his been having pain on and off for the last 2 hours. States this started as the pain was severe, states that he was sweating and vomiting. He denies any shortness of breath with this. Denies any abdominal pain. Denies any radiation of the pain through to his back. States the pain felt like an intense crushing pain radiating down the left arm. States he did feel weak after this. Patient has had a AL in the past and does have 2 stents. He was taken off his Coumadin 3 weeks ago due to GI bleed. Patient denies any recent rash, fever, chills, cough, diarrhea, constipation, back pain, numbness, tingling, dizziness, weakness, hematuria, dysuria, urinary urgency, urinary frequency, headache, visual changes, or any other complaints. (Kirstin Schofield) - Related Data Home Medications Medication Instructions Recorded Confirmed cloNIDine HCL [Clonidine HCl] 0.1 mg PO BID 11/16/15 04/06/19 Levothyroxine Sodium [Synthroid] 75 mcg PO DAILY 05/04/16 04/06/19 Omeprazole 20 mg PO DAILY 05/04/16 04/06/19 Nitroglycerin Sl Tabs [Nitrostat] 0.4 mg SUBLINGUAL Q5M PRN 07/19/16 04/06/19 Escitalopram [Lexapro] 20 mg PO DAILY 12/16/16 04/06/19 amLODIPine [Norvasc] 5 mg PO DAILY 02/07/18 04/06/19 Albuterol Sulfate [Proair Hfa] 2 puff INHALATION RT-Q6H PRN 02/13/19 04/06/19 Apixaban [Eliquis Starter Pack 5 mg PO HS 04/06/19 04/06/19 (for VTE)] Previous Rx's Medication Instructions Recorded Multivitamins, Thera [Multivitamin 1 each PO DAILY #30 tab 02/16/19 (formulary)] Thiamine [Vitamin B-1] 100 mg PO DAILY #30 tab 02/16/19 Allergies Allergy/AdvReac Type Severity Reaction Status Date / Time rivaroxaban [From Xarelto] Allergy Severe Abdominal Verified 04/11/19 07:29 Pain Beta-Blockers Allergy Rash/Hives Verified 04/11/19 07:29 (Beta-Adrenergic Bloc paroxetine HCl [From Paxil] AdvReac Unknown Abdominal Verified 04/11/19 07:29 Pain gabapentin AdvReac Abdominal Verified 04/11/19 07:29 Pain Review of Systems ROS Other: All systems not noted in ROS Statement are negative. <Kirstin Schofield - Last Filed: 06/17/19 17:55> ROS Other: All systems not noted in ROS Statement are negative. <Omar Jordan - Last Filed: 06/17/19 18:24> ROS Statement: Those systems with pertinent positive or pertinent negative responses have been documented in the HPI. Past Medical History Past Medical History: Coronary Artery Disease (CAD), Chest Pain / Angina, GERD/Reflux, Hyperlipidemia, Hypertension, Myocardial Infarction (AL), Musculoskeletal Disorder, Osteoarthritis (OA), Pneumonia, Renal Disease, Syncope, Thyroid Disorder Additional Past Medical History / Comment(s): Episodes of acute renal failure associated with dehydration, diverticulitis, IBS, return of hiatal hernia, bronchitis, hypothyroid, chronic low back pain with bilateral sciatica, lumbar DDD, past migraines, DJD, numbness tingling bilateral great toes/feet, 4 DVTs L leg surgically removed. Last Myocardial Infarction Date:: 2013 History of Any Multi-Drug Resistant Organisms: None Reported Past Surgical History: Back Surgery, Cholecystectomy, Heart Catheterization, Heart Catheterization With Stent, Hernia Repair, Orthopedic Surgery Additional Past Surgical History / Comment(s): Back fusions L3-L5, ORIF L ankle, L hand fracture with surgery, R knee arthroscopy x2, R elbow tendon release, R shoulder arthroscopy, lumbar spine cyst removed, pain clinic procedures, taylor fundoplication, EGD, colonoscopy, 2019 arteriogram/thrombus extraction at [facility]. Past Anesthesia/Blood Transfusion Reactions: No Reported Reaction Date of Last Stent Placement:: 2013 Past Psychological History: Depression Smoking Status: Former smoker Past Alcohol Use History: None Reported Past Drug Use History: Marijuana - Past Family History Mother Additional Family Medical History / Comment(s): Mother is living. Father Additional Family Medical History / Comment(s): Father had CABG. He at the age of 84 yrs in a MVA. Sister(s) Additional Family Medical History / Comment(s): SKIN CA/ #2 sister had thyroid cancer <Kirstin Schofield - Last Filed: 06/17/19 17:55> General Exam Limitations: no limitations General appearance: alert, in no apparent distress, other (This is a well- developed, well-nourished adult male patient in no acute distress. Vital signs upon presentation are temperature 99.1F, pulse 78, respirations 20, blood pressure 150/89, pulse ox 98% on room air.) ENT exam: Present: normal exam, normal oropharynx, mucous membranes moist Respiratory exam: Present: normal lung sounds bilaterally. Absent: respiratory distress, wheezes, rales, rhonchi, stridor Cardiovascular Exam: Present: regular rate, normal rhythm, normal heart sounds. Absent: systolic murmur, diastolic murmur, rubs, gallop, clicks GI/Abdominal exam: Present: soft, normal bowel sounds. Absent: distended, tenderness, guarding, rebound, rigid Neurological exam: Present: alert, oriented X3, CN II-XII intact Psychiatric exam: Present: normal affect, normal mood Skin exam: Present: warm, dry, intact, normal color. Absent: rash <Kirstin Schofield M - Last Filed: 06/17/19 17:55> Course Vital Signs 06/17/19 06/17/19 06/17/19 17:01 17:04 18:04 Temperature 99.1 F Pulse Rate 78 80 Respiratory 20 20 20 Rate Blood Pressure 150/89 150/90 O2 Sat by Pulse 98 100 Oximetry EKG Findings - EKG Comments: EKG Findings:: EKG obtained at 1701 shows sinus rhythm with a first-degree AV block. Ventricular 74, CO interval 230, QRS duration 108, QT 406, QTc 450. No evidence of ST elevation or depression. <Kirstin Schofield M - Last Filed: 06/17/19 17:55> Medical Decision Making - Lab Data Result diagrams: 06/17/19 17:16 06/17/19 17:16 - Radiology Data Radiology results: report reviewed, image reviewed <Kirstin Schofield - Last Filed: 06/17/19 17:55> - Lab Data Result diagrams: 06/17/19 17:16 06/17/19 17:16 <Omar Jordan - Last Filed: 06/17/19 18:24> - Medical Decision Making 64-year-old male patient with past medical history significant for coronary artery disease presents to the emergency department today for evaluation of zaida st pain, sweats, vomiting. Physical examination did reveal clear equal lung sounds. EKG showed sinus rhythm with a first-degree AV block, no new ST elevation or depression. Labs reviewed and did reveal elevated troponin at 0.125. We will start heparin apply Nitropaste. He'll be admitted to the hospital for further evaluation by cardiology. (Kirstin Schofield) 64-year-old male presenting with typical chest pain history of CAD. EKG showing sinus rhythm with no ST segment elevation. Patient is comfortable in the emergency Department, no acute distress, no active chest pain. Troponin is elevated 0.125. Case is discussed with both the admitting physician Dr. Jasso and Dr. Daisy haji for cardiology. (Omar Jordan) - Lab Data Lab Results 06/17/19 06/17/19 06/17/19 Range/Units 17:16 17:16 17:16 WBC 6.8 (3.8-10.6) k/uL RBC 5.17 (4.30-5.90) m/uL Hgb 14.7 (13.0-17.5) gm/dL Hct 43.2 (39.0-53.0) % MCV 83.4 (80.0-100.0) fL MCH 28.4 (25.0-35.0) pg MCHC 34.1 (31.0-37.0) g/dL RDW 14.8 (11.5-15.5) % Plt Count 256 (150-450) k/uL Neutrophils % 67 % Lymphocytes % 22 % Monocytes % 7 % Eosinophils % 2 % Basophils % 0 % Neutrophils # 4.5 (1.3-7.7) k/uL Lymphocytes # 1.5 (1.0-4.8) k/uL Monocytes # 0.4 (0-1.0) k/uL Eosinophils # 0.2 (0-0.7) k/uL Basophils # 0.0 (0-0.2) k/uL PT 10.1 (9.0-12.0) sec INR 1.0 (<1.2) APTT 22.6 (22.0-30.0) sec Sodium 138 (137-145) mmol/L Potassium 3.8 (3.5-5.1) mmol/L Chloride 107 (98-107) mmol/L Carbon Dioxide 20 L (22-30) mmol/L Anion Gap 11 mmol/L BUN 15 (9-20) mg/dL Creatinine 0.92 (0.66-1.25) mg/dL Est GFR (CKD-EPI)AfAm >90 (>60 ml/min/1.73 sqM) Est GFR (CKD-EPI)NonAf 87 (>60 ml/min/1.73 sqM) Glucose 121 H (74-99) mg/dL Calcium 9.6 (8.4-10.2) mg/dL Magnesium 2.1 (1.6-2.3) mg/dL Total Bilirubin 0.4 (0.2-1.3) mg/dL AST 26 (17-59) U/L ALT 21 (4-49) U/L Alkaline Phosphatase 113 (38-126) U/L Troponin I (0.000-0.034) ng/mL Total Protein 7.2 (6.3-8.2) g/dL Albumin 4.4 (3.5-5.0) g/dL Lipase 168 (23-300) U/L 06/17/19 Range/Units 17:16 WBC (3.8-10.6) k/uL RBC (4.30-5.90) m/uL Hgb (13.0-17.5) gm/dL Hct (39.0-53.0) % MCV (80.0-100.0) fL MCH (25.0-35.0) pg MCHC (31.0-37.0) g/dL RDW (11.5-15.5) % Plt Count (150-450) k/uL Neutrophils % % Lymphocytes % % Monocytes % % Eosinophils % % Basophils % % Neutrophils # (1.3-7.7) k/uL Lymphocytes # (1.0-4.8) k/uL Monocytes # (0-1.0) k/uL Eosinophils # (0-0.7) k/uL Basophils # (0-0.2) k/uL PT (9.0-12.0) sec INR (<1.2) APTT (22.0-30.0) sec Sodium (137-145) mmol/L Potassium (3.5-5.1) mmol/L Chloride (98-107) mmol/L Carbon Dioxide (22-30) mmol/L Anion Gap mmol/L BUN (9-20) mg/dL Creatinine (0.66-1.25) mg/dL Est GFR (CKD-EPI)AfAm (>60 ml/min/1.73 sqM) Est GFR (CKD-EPI)NonAf (>60 ml/min/1.73 sqM) Glucose (74-99) mg/dL Calcium (8.4-10.2) mg/dL Magnesium (1.6-2.3) mg/dL Total Bilirubin (0.2-1.3) mg/dL AST (17-59) U/L ALT (4-49) U/L Alkaline Phosphatase (38-126) U/L Troponin I 0.125 H* (0.000-0.034) ng/mL Total Protein (6.3-8.2) g/dL Albumin (3.5-5.0) g/dL Lipase (23-300) U/L - Radiology Data Two-view x-ray of the chest is obtained. Report was reviewed in its entirety. Impression by Dr. Sandy shows no acute cardiopulmonary process. (Kirstin Yi) Critical Care Time Critical Care Time: Yes Total Critical Care Time: 35 <Omar Jordan - Last Filed: 06/17/19 18:24> Disposition Decision to Admit Reason: Admit from EC Decision Date: 06/17/19 Decision Time: 18:01 <Kirstin Schofield - Last Filed: 06/17/19 17:55> <Omar Jordan - Last Filed: 06/17/19 18:24> Clinical Impression: NSTEMI (non-ST elevated myocardial infarction) Disposition: ADMITTED IP TO THIS HOSP Condition: Serious Referrals: Miki Nava DO [Primary Care Provider] - 1-2 days
[2019-06-18 06:14] LABS: Basophils % (A) 1 %; Eosinophils # (A) 0.2 k/uL (0-0.7); Eosinophils % (A) 3 %; HCT 40.6 % (39.0-53.0); HGB 13.6 gm/dL (13.0-17.5); Lymphocytes # (A) 1.8 k/uL (1.0-4.8); Lymphocytes % (A) 28 %; MCHC 33.5 g/dL (31.0-37.0); MCV 83.7 fL (80.0-100.0); Mean Platelet Volume 7.8; Monocytes # (A) 0.4 k/uL (0-1.0); Monocytes % (A) 6 %; Neutrophils % (A) 61 %; Platelet Count 232 k/uL (150-450); RBC 4.85 m/uL (4.30-5.90); RDW 14.8 % (11.5-15.5); WBC 6.5 k/uL (3.8-10.6)
[2019-06-18 06:32] LABS: Cholesterol 185 mg/dL (<200); HDL Cholesterol 65 mg/dL (40-60); LDL Cholesterol,Calculated 97 mg/dL (0-99); Triglycerides 117 mg/dL (<150)
[2019-06-18] MEDS ORDERED: ASPIRIN 325 MG TAB PO SCH (09:00)
[2019-06-18] MEDS ORDERED: ATORVASTATIN 80 MG TAB PO STA (09:05)
[2019-06-18] MEDS ORDERED: ALPRAZolam 0.5 MG TAB PO PRN (09:05)
[2019-06-18] MEDS ORDERED: ASPIRIN 325 MG TAB PO STA (09:05)
[2019-06-18] MEDS ORDERED: NITROGLYCERIN SL TABS 0.4 MG TAB SUBLINGUAL PRN (09:05)
[2019-06-18] MEDS ORDERED: ALPRAZolam 0.25 MG TAB PO PRN (09:05)
[2019-06-18] MEDS ORDERED: SODIUM CHLORIDE 0.9% 1,000 ML in EMPTY BAG 1 BAG IV ONE (09:05)
[2019-06-18] MEDS ORDERED: ALBUTEROL NEBULIZED 2.5 MG/3 ML INHALATION PRN (09:22)
[2019-06-18] MEDS: amLODIPine 5 MG TAB PO SCH (09:28)
[2019-06-18] MEDS: cloNIDine HCL 0.1 MG TAB PO SCH ×2 (09:28→20:52)
[2019-06-18] MEDS ORDERED: KETOROLAC 30 MG/ML 1 ML VIAL IVP SCH (09:30)
[2019-06-18] MEDS: ESCITALOPRAM 20 MG TAB PO SCH (09:38)
[2019-06-18] MEDS: LEVOTHYROXINE 75 MCG TAB PO SCH (09:38)
[2019-06-18] MEDS: PANTOPRAZOLE 40 MG TABLET PO SCH (09:38)
[2019-06-18] MEDS: ACETAMINOPHEN TAB 325 MG TAB PO PRN ×2 (09:38→15:55)
[2019-06-18] MEDS ORDERED: LIDOCAINE 1% INJ 10MG/ML (20 ML MDV) ONE (10:13)
[2019-06-18] MEDS ORDERED: IV FLUID CONTINUATION 1,000 ML IV ONE (10:20)
[2019-06-18] MEDS ORDERED: fentaNYL (PF) 50 MCG/ML 2 ML AMP ONE (10:27)
[2019-06-18] MEDS ORDERED: fentaNYL (PF) 50 MCG/ML 2 ML AMP IV ONE (10:28)
[2019-06-18] MEDS: MIDAZOLAM 2 MG/2 ML VIAL IV ONE ×2 (10:29→10:42)
[2019-06-18] MEDS ORDERED: LIDOCAINE 1% INJ 10MG/ML (20 ML MDV) SQ ONE (10:32)
[2019-06-18] MEDS ORDERED: HYDROmorphone 1 MG/ML 1 ML SYRINGE ONE ×3 (10:54→12:03)
[2019-06-18] MEDS ORDERED: HYDROmorphone 1 MG/ML 1 ML SYRINGE IVP ONE ×3 (10:57→12:07)
--- NOTE | 2019-06-18 11:00 | CONS ---
CONSULTATION CHIEF COMPLAINT: Chest pain. Anjum is a 64-year-old gentleman with history of coronary artery disease, status post prior angioplasty of LAD and right coronary artery. LAD was stented in 2007 and right coronary artery was stented in 2013. Hypertension, dyslipidemia, peripheral arterial disease who presented to the hospital having had episodes of chest pain. He described this as moderate intensity chest pain at rest in the precordial area with left arm radiation. It was associated with nausea and he was somewhat diaphoretic. He came to hospital for the same and is admitted as unstable angina. Patient's chest pain subsided initially and then he got up, walked around and then became and had similar symptoms. Since being admitted to the hospital, he has been treated with aggressive medical therapy and at the time of my evaluation he is chest pain-free. His EKG shows sinus rhythm without significant ST-T wave changes. Troponins are mildly elevated. Given the known coronary artery disease, typical symptoms and the elevated troponins, I advised the patient to undergo cardiac catheterization for definitive diagnosis. The patient had been explained of risks, benefits and alternatives understood and accepted. The patient has peripheral arterial disease and was on Xarelto, which had been stopped secondary to concerns about GI bleed in the recent past. The patient had acute arterial occlusion of the left leg treated with thrombolytic therapy and subsequently has being managed medically. The patient had been intolerant of COUMADIN, ELIQUIS and XARELTO for the various reasons. PAST MEDICAL HISTORY: Significant for hypertension, coronary artery disease, status post multivessel angioplasty and hypothyroidism. MEDICATIONS: At home included clonidine 0.1 b.i.d., Norvasc 5 daily, omeprazole 20 daily, Synthroid, Lexapro, and ProAir. ALLERGIES: Include Paxil, Eliquis, Neurontin, Coumadin, Xarelto, and beta blockers. FAMILY HISTORY: Negative for premature coronary artery disease. SOCIAL HISTORY: Negative for current smoking, ETOH abuse or drug abuse. REVIEW OF SYSTEMS: HEENT: Unremarkable. CARDIAC: As described above. RESPIRATORY: Negative. GI: As described above. GENITOURINARY: Negative. ALLERGY/IMMUNOLOGY: Negative. MUSCULOSKELETAL: Significant for chronic back pain and peripheral arterial disease involving left leg. PSYCHOSOCIAL: Negative. ENDOCRINE: Negative. CONSTITUTIONAL: Negative. ONCOLOGICAL: Negative. CHANNEL CEMENTER. Negative. Rest of the system review. PHYSICAL EXAM: Appears comfortable at rest. Afebrile. Heart rate is 64 beats per minute. Blood pressure varied between 120/66 to 171/98, O2 saturation is 95% on room air. There is no jugular venous distention. Carotid upstroke is normal. There is no bruit. Chest exam reveals good air entry bilaterally. Heart reveals first and second heart sounds. No gallop. No murmur. No rub. Abdomen is soft, nontender. Exam of extremities did not reveal any edema. Femoral and dorsalis pedis is palpable on the right side. Dorsalis pedis and posterior tibial are not palpable on the left side. EKG shows nonspecific ST-T wave changes. LABS: Show that the hemoglobin is normal at 13.6. Potassium is 3.8, creatinine is 0.9, tropes are elevated at 0.1, 0.2 at 0.3. LDL cholesterol is 97. Coronavirus is negative. ASSESSMENT: 1. Acute non ST-segment elevation myocardial infarction. 2. Coronary artery disease, status post angioplasty. 3. Dyslipidemia, intolerant of statin. 4. Peripheral arterial disease. 5. Coronary artery disease, status post multivessel angioplasty. PLAN: Patient will undergo cardiac catheterization today after being explained the risks, benefits and alternatives. MMODL / IJN: [id number] /
[2019-06-18] MEDS ORDERED: fentaNYL (PF) 50 MCG/ML 2 ML AMP IVP ONE (11:05)
[2019-06-18] MEDS ORDERED: BIVALIRUDIN BOLUS 250 MG/50 ML IV ONE (11:15)
[2019-06-18] MEDS ORDERED: BIVALIRUDIN 250 MG in SODIUM CHLORIDE 0.9% 50 ML IV ONE (11:17)
[2019-06-18] MEDS ORDERED: IOPAMIDOL-370 125ML BTL INJ ONE ×2 (11:24→12:02)
[2019-06-18] MEDS ORDERED: NITROGLYCERIN SL TABS 0.4 MG TAB SUBLINGUAL ONE ×2 (11:39→11:40)
[2019-06-18] MEDS ORDERED: NITROGLYCERIN 1000MCG/10ML SYRINGE INTRACORON ONE (11:49)
--- NOTE | 2019-06-18 11:49 | ECHOF ---
Referral Reason:NSTEMI MEASUREMENTS -------- HEIGHT: 180.3 cm WEIGHT: 101.2 kg BP: 155/93 RVIDd: 3.6 cm (< 3.3) IVSd: 1.4 cm (0.6 - 1.1) LVIDd: 4.1 cm (3.9 - 5.3) LVPWd: 1.6 cm (0.6 - 1.1) IVSs: 2.0 cm LVIDs: 2.2 cm LVPWs: 2.3 cm LAESV Index (A-L): 28.24 ml/m Ao Diam: 3.6 cm (2.0 - 3.7) AV Cusp: 2.5 cm (1.5 - 2.6) LA Diam: 3.9 cm (2.7 - 3.8) MV EXCURSION: 17.570 mm (> 18.000) MV EF SLOPE: 104 mm/s (70 - 150) EPSS: 1.3 cm MV E [place]: 0.65 m/s MV DecT: 146 ms MV A [place]: 0.79 m/s MV E/A Ratio: 0.82 RAP: 5.00 mmHg RVSP: 11.77 mmHg FINDINGS -------- Sinus rhythm. This was a technically adequate study. The left ventricular size is normal. There is moderate concentric left ventricular hypertrophy. O verall left ventricular systolic function is normal with, an EF between 55 - 60 %. The diastolic fi lling pattern is normal for the age of the patient 10.42. The right ventricle is normal in size. The left atrial size is normal. Normal LA size by volume 22+/-6 ml/m2. The right atrial size is normal. The aortic valve is trileaflet and appears structurally normal. The mitral valve is normal. There is trace mitral regurgitation. The tricuspid valve appears structurally normal. Trace tricuspid regurgitation present. Right nicole tricular systolic pressure is normal at < 35 mmHg. There is no pulmonic regurgitation present. The aortic root size is normal. Normal inferior vena cava with normal inspiratory collapse consistent with estimated right atrial pre ssure of 5 mmHg. There is no pericardial effusion. CONCLUSIONS -------- 1. Sinus rhythm. 2. This was a technically adequate study. 3. The left ventricular size is normal. 4. There is moderate concentric left ventricular hypertrophy. 5. Overall left ventricular systolic function is normal with, an EF between 55 - 60 %. 6. The diastolic filling pattern is normal for the age of the patient 10.42 7. The right ventricle is normal in size. 8. The left atrial size is normal. 9. Normal LA size by volume 22+/-6 ml/m2. 10. The right atrial size is normal. 11. The aortic valve is trileaflet and appears structurally normal. 12. The mitral valve is normal. 13. There is trace mitral regurgitation. 14. The tricuspid valve appears structurally normal. 15. Trace tricuspid regurgitation present. 16. Right ventricular systolic pressure is normal at < 35 mmHg. 17. There is no pulmonic regurgitation present. 18. The aortic root size is normal. 19. Normal inferior vena cava with normal inspiratory collapse consistent with estimated right atrial pressure of 5 mmHg. 20. There is no pericardial effusion. [employer] FORMER SUPERVISOR: Amy Martin RDCS
[2019-06-18] MEDS ORDERED: TICAGRELOR 90 MG TAB ONE (11:50)
[2019-06-18] MEDS ORDERED: ZOLPIDEM 5 MG TAB PO PRN (11:58)
[2019-06-18] MEDS ORDERED: ATROPINE SULFATE 0.1 MG/ML 10ML SYRINGE IV PRN (11:58)
[2019-06-18] MEDS ORDERED: RX INFO: IV CONTRAST WAS GIVEN 1 EACH MISC MISCELLANE PRN (11:58)
[2019-06-18] MEDS ORDERED: MAG HYDROX/AL HYDROX/SIMETH 30 ML CUP PO PRN (11:58)
[2019-06-18] MEDS ORDERED: TICAGRELOR 90 MG TAB PO ONE (12:02)
[2019-06-18] MEDS: SODIUM CHLORIDE 0.9% 1,000 ML IV SCH (12:27)
--- NOTE | 2019-06-18 13:06 | CC ---
CARDIAC CATHETERIZATION REPORT INDICATION: Acute non ST elevation LA in a patient with known CAD status post prior angioplasty of LAD in 2007 and the right coronary artery in 2013. PROCEDURE NOTE: After obtaining informed consent, left heart catheterization, coronary angiogram are performed via the right femoral artery using standard Allen catheters. Patient tolerated the procedure well without any immediate complications. The patient received moderate conscious sedation and total sedation time was 14 minutes. FINDINGS: 1. HEMODYNAMICS: Left ventricular end-diastolic pressure is 12-14 mm. There is no significant gradient across the aortic valve. 2. LEFT VENTRICULOGRAM: Left ventriculogram is not performed. 3. ANGIOGRAPHIC DATA: LEFT MAIN CORONARY ARTERY: Left main coronary artery is a normal size vessels. It is calcified and shows mild nonobstructive disease. Divides into left anterior descending coronary artery and circumflex artery. LAD was previously stented in the proximal part and the stented segment appears patent. Circumflex coronary artery is a nondominant vessel, gives off a large caliber OM branch that has a 70%-80% stenosis in the ostial portion. Right coronary artery is a large dominant vessel in the previously stented area, appears patent with mild to moderate nonobstructive disease involving proximal and distal portion. CONCLUSION: 1. Patent stent within the right coronary artery and LAD. 2. A 70% to 80% stenosis of the ostial portion of the OM branch. PLAN: Dr. Jain, the on-call supervisor riveting to perform angioplasty with stent. MMARNAVL / KULWANTN: [id number] /
--- NOTE | 2019-06-18 13:12 | LTR ---
DATE OF SERVICE: 06/18/2019 RE: Anjum Rueda Dear Dr. Nava; I performed cardiac catheterization on Anjum Rueda and catheterization note will be forwarded to you for your records. In brief, the cardiac catheterization reveals patent stent within the LAD and right coronary artery with a significant lesion in the OM branch, which I believe is responsible for patient's symptoms. Patient will undergo angioplasty of the same. Sincerely, MD PAULINA Figueroa / MAURO: [id number] /
[2019-06-18 13:20] VITALS: BMI 31.1
--- NOTE | 2019-06-18 14:17 | P.HPIM ---
History of Present Illness H&P Date: 06/18/19 Chief Complaint: Chest pain This is a 64-year-old gentleman with history of CAD, OK, cardiac stents, Coumadin failure-taken off secondary to GI bleed , attempted Eliquis and Xarelto reporting hematuria, cramping , gastroesophageal reflux disease, GI bleed, hyperlipidemia, hypertension, hypothyroidism, chronic back pain with prior opioid dependency, daily marijuana use IBS, chronic renal failure, depression, former nicotine dependence and multiple other medical issues, presented to the ER with complaints of crushing chest pain radiating down left arm, accompanied by nausea, vomiting and diaphoresis. Denies abdominal pain. Denies shortness of breath, lightheadedness or dizziness. EKG referred sinus rhythm with first- degree AV block, unable to rule out inferior infarct, age undetermined, troponins 0.125, 0.256, 0.344. Lockhart virus not detected. Chest x-ray reported no acute cardiopulmonary process. Hemoglobin stable 13.6, which was within normal limits. BUN 15, creatinine 0.92. Acute coronary syndrome pathway initiated including heparin drip. Cardiology consulted, cardiac catheterization pending. Review of Systems ROS Other: All systems not noted in ROS Statement are negative. ROS Statement: Those systems with pertinent positive or pertinent negative responses have been documented in the HPI. Past Medical History Past Medical History: Coronary Artery Disease (CAD), Chest Pain / Angina, GERD/Reflux, GI Bleed, Hyperlipidemia, Hypertension, Myocardial Infarction (OK), Musculoskeletal Disorder, Osteoarthritis (OA), Pneumonia, Renal Disease, Syncope, Thyroid Disorder Additional Past Medical History / Comment(s): Episodes of acute renal failure associated with dehydration, diverticulitis, IBS, return of hiatal hernia, bronchitis, hypothyroid, chronic low back pain with bilateral sciatica, lumbar D DD, past migraines, DJD, numbness tingling bilateral great toes/feet, 4 DVTs L leg surgically removed. Last Myocardial Infarction Date:: 2013 History of Any Multi-Drug Resistant Organisms: None Reported Past Surgical History: Back Surgery, Cholecystectomy, Heart Catheterization, Heart Catheterization With Stent, Hernia Repair, Orthopedic Surgery Additional Past Surgical History / Comment(s): Back fusions L3-L5, ORIF L ankle, L hand fracture with surgery, R knee arthroscopy x2, R elbow tendon release, R shoulder arthroscopy, lumbar spine cyst removed, pain clinic procedures, taylor fundoplication, EGD, colonoscopy, 2019 arteriogram/thrombus extraction at [facility]. Past Anesthesia/Blood Transfusion Reactions: No Reported Reaction Date of Last Stent Placement:: 2013 Past Psychological History: Depression Additional Psychological History / Comment(s): Pt resides with his spouse in a ranch style home that has 2 front steps. He uses a cane he uses as needed. He drives. He has 1 pet dog Smoking Status: Former smoker Past Alcohol Use History: None Reported Additional Past Alcohol Use History / Comment(s): Smoked from 1971 to 1983 SMOKED 1PPD Past Drug Use History: Marijuana Additional Drug Use History / Comment(s): MEDICAL marijuana - OCCASIONAL USE. Pt states he used opiates in the past- does not take since 2014 - - Past Family History Mother Additional Family Medical History / Comment(s): Mother is living. Father Additional Family Medical History / Comment(s): Father had CABG. He at the age of 84 yrs in a MVA. Sister(s) Additional Family Medical History / Comment(s): SKIN CA/ #2 sister had thyroid cancer Medications and Allergies Home Medications Medication Instructions Recorded Confirmed Type cloNIDine HCL [Clonidine HCl] 0.1 mg PO BID 11/16/15 06/17/19 History Levothyroxine Sodium [Synthroid] 75 mcg PO DAILY 05/04/16 06/17/19 History Omeprazole 20 mg PO DAILY 05/04/16 06/17/19 History Nitroglycerin Sl Tabs [Nitrostat] 0.4 mg SL Q5M PRN 07/19/16 06/17/19 History Escitalopram [Lexapro] 20 mg PO DAILY 12/16/16 06/17/19 History amLODIPine [Norvasc] 5 mg PO DAILY 02/07/18 06/17/19 History Albuterol Sulfate [Proair Hfa] 2 puff INHALATION RT-QID PRN 02/13/19 06/17/19 History Allergies Allergy/AdvReac Type Severity Reaction Status Date / Time rivaroxaban [From Xarelto] Allergy Severe Abdominal Verified 06/17/19 18:29 Pain Beta-Blockers Allergy Rash/Hives Verified 06/17/19 18:29 (Beta-Adrenergic Bloc paroxetine HCl [From Paxil] AdvReac Unknown Abdominal Verified 06/17/19 18:29 Pain apixaban [From Eliquis] AdvReac Abdominal Verified 06/17/19 18:29 Pain gabapentin AdvReac Abdominal Verified 06/17/19 18:29 Pain warfarin AdvReac Abdominal Verified 06/17/19 18:29 Pain Physical Exam Vitals: Vital Signs Temp Pulse Pulse Resp BP BP Pulse Ox 06/18/19 08:00 98 F 64 16 171/98 95 06/18/19 04:00 98.3 F 70 16 155/93 97 06/18/19 00:00 97.9 F 74 16 125/66 97 06/17/19 20:00 98 F 66 16 174/98 97 06/17/19 19:11 82 20 152/92 100 06/17/19 18:04 80 20 150/90 100 06/17/19 17:04 20 06/17/19 17:01 99.1 F 78 20 150/89 98 Intake and Output 06/17/19 06/18/19 06/18/19 22:59 06:59 14:59 Intake Total 137.9 Output Total 300 Balance -300 137.9 Intake: Intake, IV Titration 137.9 Amount Heparin Sod,Pork in 0.45% 137.9 NaCl 25,000 unit In 0.45 % NaCl 1 250ml.bag @ 9. 798 UNITS/KG/HR 10 mls/hr IV .Q24H [facility] Rx#: [id number] Output: Urine 300 Other: # Voids 3 Weight 102.058 kg 101.2 kg GENERAL: This is a -63 year-old in no apparent distress at the time of examination. Pleasant and cooperative. HEENT: Head is atraumatic, normocephalic. Pupils are equal, round, and reactive to light. Sclerae anicteric. Conjunctivae are clear. Mucus membranes of the mouth are moist. Neck is supple. RESPIRATORY: Clear to auscultation. No wheezes, rales, or rhonchi. No use of accessory muscles. No chest wall tenderness is noted on palpation or with deep breathing. CARDIOVASCULAR: Regular rate and rhythm. S1 and S2 noted. No systolic or diastolic murmur auscultated. No JVD noted. No S3 or S4 noted. GASTROINTESTINAL: No distention noted. Abdomen soft and round. Normal active bowel sounds auscultated x 4 quadrants. No pain. With evidence of gross blood per rectum. INTEGUMENTARY: No cyanosis. No jaundice. No rashes noted. No cellulitis noted. EXTREMITIES: 2+ peripheral pulses. No evidence of peripheral edema. No calf tenderness noted. NEUROLOGIC: Cranial nerves II-XII intact. PSYCHIATRIC: Awake, alert, and oriented X 3. Appropriate affect. Intact judgement and insight. Results CBC & Chem 7: 06/18/19 05:59 06/17/19 17:16 Labs: Abnormal Lab Results - Last 24 Hours (Table) 06/17/19 06/17/19 06/18/19 Range/Units 17:16 17:16 00:03 APTT 36.4 H (22.0-30.0) sec Carbon Dioxide 20 L (22-30) mmol/L Glucose 121 H (74-99) mg/dL Troponin I 0.125 H* (0.000-0.034) ng/mL HDL Cholesterol (40-60) mg/dL 06/18/19 06/18/19 06/18/19 Range/Units 00:03 05:59 05:59 APTT (22.0-30.0) sec Carbon Dioxide (22-30) mmol/L Glucose (74-99) mg/dL Troponin I 0.256 H* 0.344 H* (0.000-0.034) ng/mL HDL Cholesterol 65 H (40-60) mg/dL 06/18/19 Range/Units 05:59 APTT 38.4 H (22.0-30.0) sec Carbon Dioxide (22-30) mmol/L Glucose (74-99) mg/dL Troponin I (0.000-0.034) ng/mL HDL Cholesterol (40-60) mg/dL Thrombosis Risk Factor Assmnt - Choose All That Apply Each Factor Represents 1 point: Acute OK, Hx of IBD Each Risk Factor Represents 2 Points: Age 61-74 years Each Risk Factor Represents 3 Points: History of DVT/PE Thrombosis Risk Factor Assessment Total Risk Factor Score: 7 Thrombosis Risk Factor Assessment Level: High Risk Assessment and Plan Assessment: (1) acute non-STEMI (2) CAD, history of OK, prior cardiac stents, ischemic heart disease (3) history of Coumadin toxicity, lower GI bleed. Unable to tolerate Coumadin, Eliquis or Xarelto secondary to multiple symptoms including cramping, hematuria. 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 Prior opioid dependency, no opioids. Current Visit: No Status: Acute Code(s): M47.816 - SPONDYLOSIS W/O MYELOPATHY OR RADICULOPATHY, LUMBAR REGION SNOMED Code(s): 662037295 (5) dyslipidemia, intolerant of statins (6) chronic renal failure, stage II (7) Hypothyroid Current Visit: Yes Status: Acute Code(s): E03.9 - HYPOTHYROIDISM, UNSPECIFIED SNOMED Code(s): 46946602 Plan: Continue on current medication regime ,monitoring and symptomatic ashwin atment. Tylenol and Toradol prn breakthrough pain. NPO, Cardiac catheterization pending. Echo currently being completed at bedside. Home meds have been reviewed and resumed accordingly. Follow closely with cardiology. Prognosis guarded given multiple complex medical issues. The impression and plan of care has been dictated as directed. : I performed a history and examination of this patient, discussed the same with the dictator. I agree with the dictator's note ,documented as a scribe. Any additional findings or plans will be noted.
[2019-06-18] MEDS: KETOROLAC 30 MG/ML 1 ML VIAL IVP PRN (14:19)
--- NOTE | 2019-06-18 19:45 | PTCA ---
PERCUTANEOUSTRANS CORORONARY ANGIOGRAPHY DATE OF SERVICE: 06/18/2019 PERFORMING PHYSICIAN: Martin Jain M.D. PROCEDURE PERFORMED: Successful stenting of the first obtuse marginal branch of the left circumflex using 3.0 x 12 mm Xience drug-eluting stent with an excellent angiographic result and reduction of stenosis from 80% to 0%. INDICATION: This is a pleasant 64-year-old gentleman with history of coronary artery disease and prior coronary revascularization who was admitted to the hospital with chest discomfort and underwent a heart catheterization by Dr. Patrick. He was found to have critical disease involving OM1 of the left circumflex. Because of that, he was brought today to undergo an intervention. APPROACH: Right common femoral artery. COMPLICATIONS: None. LEVEL OF SEDATION: Moderate, with sedation length of 14 minutes. PROCEDURE DESCRIPTION: Please refer to diagnostic heart catheterization that was performed by Dr. Patrick earlier today. After reviewing the angiogram, we decided to pursue an intervention on the OM1. Anticoagulation was initiated using Angiomax. Subsequently I did engage the left main using an XP35 LAD guide. I did wire the OM1 using a Whisper wire and I did wire the left circumflex using a run-through wire. Balloon angioplasty was achieved using a 3.0 x 12 mm balloon which was inflated at the ostial of the OM1. After that I deployed a 3.0 x 12 mm Xience ROMEL where the stent was positioned under fluoroscopic guidance and deployed under its nominal pressure. The following angiogram showed that the left circumflex had a pinch on it that appeared to be in the range of 99.9%. Because of that I decided to wire the LCX. I rewired the LCX using the same run- through wire. I did after that balloon angioplasty using a 1.5 mm balloon initially and subsequently a 3.0 mm balloon. After that I did balloon angioplasty on OM1 using a 3.0 x 12 mm balloon. The final angiogram showed great angiographic results and the procedure was completed without any complication. POST-PROCEDURE MANAGEMENT: 1. Dual anti-platelet therapy. 2. Risk factor modifications. 3. Follow up with the patient. MMODL / IJN: [id number] /
[2019-06-18] MEDS: TICAGRELOR 90 MG TAB PO SCH (20:52)
[2019-06-18] MEDS ORDERED: ATORVASTATIN 80 MG TAB PO SCH (21:00)
[2019-06-19] MEDS: LEVOTHYROXINE 75 MCG TAB PO SCH (06:11)
[2019-06-19] MEDS: PANTOPRAZOLE 40 MG TABLET PO SCH (06:12)
[2019-06-19 06:38] LABS: Basophils % (A) 1 %; Eosinophils # (A) 0.2 k/uL (0-0.7); Eosinophils % (A) 3 %; HCT 41.2 % (39.0-53.0); HGB 13.8 gm/dL (13.0-17.5); Lymphocytes # (A) 1.3 k/uL (1.0-4.8); Lymphocytes % (A) 23 %; MCHC 33.6 g/dL (31.0-37.0); MCV 83.5 fL (80.0-100.0); Mean Platelet Volume 7.9; Monocytes # (A) 0.4 k/uL (0-1.0); Monocytes % (A) 7 %; Neutrophils # (A) 3.6 k/uL (1.3-7.7); Neutrophils % (A) 64 %; Platelet Count 238 k/uL (150-450); RBC 4.94 m/uL (4.30-5.90); RDW 14.7 % (11.5-15.5); WBC 5.6 k/uL (3.8-10.6)
[2019-06-19 06:49] LABS: African American GFR (CKD) >90 (>60 ml/min/1.73 sqM); Anion Gap 7 mmol/L; Blood Urea Nitrogen 9 mg/dL (9-20); Calcium 9.3 mg/dL (8.4-10.2); Carbon Dioxide 24 mmol/L (22-30); Chloride 106 mmol/L (98-107); Glucose 115 mg/dL (74-99); Non-African American GFR(CKD) >90 (>60 ml/min/1.73 sqM); Potassium 4.1 mmol/L (3.5-5.1); Sodium 137 mmol/L (137-145)
[2019-06-19 08:13] VITALS: BP 156/95; PULSE 74; RESP 20; TEMP 98.4
[2019-06-19] MEDS: ESCITALOPRAM 20 MG TAB PO SCH (08:18)
[2019-06-19] MEDS: TICAGRELOR 90 MG TAB PO SCH (08:18)
[2019-06-19] MEDS: cloNIDine HCL 0.1 MG TAB PO SCH (08:18)
[2019-06-19] MEDS: SODIUM CHLORIDE 0.9% 1,000 ML IV SCH (08:18)
[2019-06-19] MEDS: KETOROLAC 30 MG/ML 1 ML VIAL IVP PRN (08:19)
[2019-06-19] MEDS: amLODIPine 5 MG TAB PO SCH (08:19)
[2019-06-19] MEDS ORDERED: ASPIRIN 81 MG PO SCH (09:00)
--- NOTE | 2019-06-19 11:33 | CONS ---
CONSULTATION A 64-year-old gentleman who is admitted to the hospital with acute non ST-segment elevation NM. Underwent cardiac catheterization and angioplasty of an OM branch. This morning he is doing well and is free of symptoms. PHYSICAL EXAMINATION: On exam, comfortable at rest. Vital signs are stable. There is no jugular venous distention. Chest is clear to auscultation. Heart exam reveals heart sounds. No gallop. Her groin is free bleeding, hematoma. Pulses are intact. LABS: Show a potassium of 4.1, creatinine is 0.7. ASSESSMENT: Acute non ST-segment elevation NM, status post catheterization and angioplasty of an OM branch. PLAN: Patient is doing well. He is stable to be discharged home on aspirin, Brilinta, Catapres 0.1 b.i.d., Norvasc 5 mg daily and he will follow up with me on Tuesday. PAULINA / MAURO: [id number] /
--- NOTE | 2019-06-19 15:08 | P.DS ---
Providers Date of admission: 06/17/19 17:54 Expected date of discharge: 06/19/19 Attending physician: Miki Nava Consults: 06/17/19 18:03 Consult Physician Urgent Consulting Provider: Ede Bone Consult Reason/Comments: NSTEMI Do you want consulting provider notified?: Already Contacted 06/18/19 11:58 Consult Physician Routine Consulting Provider: Cardiology Lizandro Consult Reason/Comments: Post Interventional patient Do you want consulting provider notified?: Already Contacted Primary care physician: Miki Nava [facility] Course: Final Diagnoses: (1) acute non-STEMI , status post cardiac catheterization, angioplasty of OM (2) CAD, history of PA, prior cardiac stents, ischemic heart disease (3) history of Coumadin toxicity, lower GI bleed. Unable to tolerate Coumadin, Eliquis or Xarelto secondary to multiple symptoms including cramping, hematuria. 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 Prior opioid dependency, no opioids. Current Visit: No Status: Acute Code(s): M47.816 - SPONDYLOSIS W/O MYELOPATHY OR RADICULOPATHY, LUMBAR REGION SNOMED Code(s): 254399736 (5) dyslipidemia, intolerant of statins (6) chronic renal failure, stage II (7) Hypothyroid Current Visit: Yes Status: Acute Code(s): E03.9 - HYPOTHYROIDISM, UNSPECIFIED SNOMED Code(s): 91577053 Hospital course:This is a 64-year-old gentleman with history of CAD, PA, cardiac stents, Coumadin failure-taken off secondary to GI bleed , attempted Eliquis and Xarelto reporting hematuria, cramping , gastroesophageal reflux disease, GI bleed, hyperlipidemia, hypertension, hypothyroidism, chronic back pain with prior opioid dependency, daily marijuana use IBS, chronic renal failure, depression, former nicotine dependence and multiple other medical issues, presented to the ER with complaints of crushing chest pain radiating down left arm, accompanied by nausea, vomiting and diaphoresis. Denies abdominal pain. Denies shortness of breath, lightheadedness or dizziness. EKG referred sinus rhythm with first-degree AV block, unable to rule out inferior infarct, age undetermined, troponins 0.125, 0.256, 0.344. Lockhart virus not detected. Chest x-ray reported no acute cardiopulmonary process. Hemoglobin stable 13.6, which was within normal limits. BUN 15, creatinine 0.92. Acute coronary syndrome pathway initiated including heparin drip. Cardiology consulted, cardiac ca theterization pending. Underwent cardiac cath with angioplasty of OM . Tolerated procedure well. Denies chest pain, palpitations or shortness of breath. Denies lightheadedness, dizziness or focal deficits. Cleared by cardiology for discharge. Patient is being discharged home in stable condition with guarded prognosis. The impression and plan of care has been dictated as directed. : I performed a history and examination of this patient, discussed the same with the dictator. I agree with the dictator's note ,documented as a scribe. Any additional findings or plans will be noted. Patient Condition at Discharge: Stable Plan - Discharge Summary Discharge Rx Participant: No New Discharge Prescriptions: New Ticagrelor [Brilinta] 90 mg PO BID #60 tab Atorvastatin [Lipitor] 80 mg PO HS #30 tab Aspirin EC [Ecotrin Low Dose] 81 mg PO DAILY #30 tablet.dr Pita cloNIDine HCL [Clonidine HCl] 0.1 mg PO BID Levothyroxine Sodium [Synthroid] 75 mcg PO DAILY Omeprazole 20 mg PO DAILY Nitroglycerin Sl Tabs [Nitrostat] 0.4 mg SL Q5M PRN PRN Reason: Chest Pain Escitalopram [Lexapro] 20 mg PO DAILY amLODIPine [Norvasc] 5 mg PO DAILY Albuterol Sulfate [Proair Hfa] 2 puff INHALATION RT-QID PRN PRN Reason: Shortness Of Breath Discharge Medication List cloNIDine HCL [Clonidine HCl] 0.1 mg PO BID 11/16/15 [History] Levothyroxine Sodium [Synthroid] 75 mcg PO DAILY 05/04/16 [History] Omeprazole 20 mg PO DAILY 05/04/16 [History] Nitroglycerin Sl Tabs [Nitrostat] 0.4 mg SL Q5M PRN 07/19/16 [History] Escitalopram [Lexapro] 20 mg PO DAILY 12/16/16 [History] amLODIPine [Norvasc] 5 mg PO DAILY 02/07/18 [History] Albuterol Sulfate [Proair Hfa] 2 puff INHALATION RT-QID PRN 02/13/19 [History] Aspirin EC [Ecotrin Low Dose] 81 mg PO DAILY #30 tablet. 06/19/19 [Rx] Atorvastatin [Lipitor] 80 mg PO HS #30 tab 06/19/19 [Rx] Ticagrelor [Brilinta] 90 mg PO BID #60 tab 06/19/19 [Rx] Follow up Appointment(s)/Referral(s): Miki Nava DO [Primary Care Provider] - 06/22/19 9:30 am Kashmir Patrick MD [STAFF PHYSICIAN] - 06/25/19 2:15 pm Ambulatory/Diagnostic Orders: Complete Blood Count w/diff [LAB.AMB] Time Frame: 3 Days, Location: None Selected Patient Instructions/Handouts: *Surgery [facility] - After Heart Catheterization - Director Financial Analysis Instructions, Heart Healthy Diet (DC) Discharge Disposition: HOME SELF-CARE
== END 2019-06-19 11:33 | disposition home or self-care (01) | DRG 247 ==
LOC: EC 16:53 → 3SCARD 17:54
PROVIDERS: ADMIT Family Medicine; ATTEND Family Medicine
PROC: B2111ZZ Fluoroscopy of Multiple Coronary Arteries using Low Osmolar Contrast (ICD-10-PCS; principal; 2019-06-18 07:30)
PROC: 027034Z Dilation of Coronary Artery, One Artery with Drug-eluting Intraluminal Device, Percutaneous Approach (ICD-10-PCS; principal; 2019-06-18 07:30)
PROC: 4A023N7 Measurement of Cardiac Sampling and Pressure, Left Heart, Percutaneous Approach (ICD-10-PCS; principal; 2019-06-18 07:30)
DX: I21.4 Non-ST elevation (NSTEMI) myocardial infarction (principal); K92.2 Gastrointestinal hemorrhage, unspecified; I25.10 Atherosclerotic heart disease of native coronary artery without angina pectoris; I25.9 Chronic ischemic heart disease, unspecified; G89.29 Other chronic pain; F32.9 Major depressive disorder, single episode, unspecified; E03.9 Hypothyroidism, unspecified; E78.5 Hyperlipidemia, unspecified; Z11.59 Encounter for screening for other viral diseases; I12.9 Hypertensive chronic kidney disease with stage 1 through stage 4 chronic kidney disease, or unspecified chronic kidney disease; I25.2 Old myocardial infarction; I44.0 Atrioventricular block, first degree; I73.9 Peripheral vascular disease, unspecified; Z87.19 Personal history of other diseases of the digestive system; M47.816 Spondylosis without myelopathy or radiculopathy, lumbar region; N18.2 Chronic kidney disease, stage 2 (mild); Z79.890 Hormone replacement therapy; Z79.899 Other long term (current) drug therapy; Z80.8 Family history of malignant neoplasm of other organs or systems; Z87.891 Personal history of nicotine dependence; Z95.5 Presence of coronary angioplasty implant and graft; K58.9 Irritable bowel syndrome, unspecified; Z88.8 Allergy status to other drugs, medicaments and biological substances; F11.21 Opioid dependence, in remission
CPT/HCPCS: 36415; 71046; 80048; 80053; 80061; 82272; 83690; 83735; 84484; 85025; 85610; 85730; 87635; 93005; 93306; 93458; 96365; 96376; 99291

== ENCOUNTER 2019-10-06 13:38 | Inpatient (IN) | payer MEDICARE ==
[2019-10-06] MEDS ORDERED: HYDROmorphone 0.5 MG/0.5 ML SYRINGE IVP STA (14:12)
[2019-10-06] MEDS ORDERED: SODIUM CHLORIDE 0.9% 500 ML 500 ML IV STA ×2 (14:12→15:12)
[2019-10-06] MEDS ORDERED: ONDANSETRON 4 MG/2 ML VIAL IVP STA (14:12)
--- NOTE | 2019-10-06 14:17 | ED ---
General Adult HPI - General Chief complaint: Nausea/Vomiting/Diarrhea Stated complaint: vomiting Time Seen by Provider: 10/06/19 13:57 Source: patient, RN notes reviewed Mode of arrival: ambulatory Limitations: no limitations - History of Present Illness Initial comments: 64-year-old male presents to the emergency room for a chief complaint of nausea vomiting diarrhea. Patient states he developed nausea vomiting diarrhea yesterday. Reports that he has had diarrhea 4 times and vomiting several times. He reports abdominal pain and cramping associated with this. Patient reports he does have a history of cholecystectomy a few years ago but otherwise no abdominal surgeries. Denies melena or hematochezia. Denies hematemesis. No fevers or chills. States the pain worsens when cramping happens with the diarrhea.Patient has no other complaints at this time including shortness of breath, chest pain, headache, or visual changes. - Related Data Home Medications Medication Instructions Recorded Confirmed cloNIDine HCL [Clonidine HCl] 0.1 mg PO BID 11/16/15 10/06/19 Levothyroxine Sodium [Synthroid] 75 mcg PO DAILY 05/04/16 10/06/19 Omeprazole 20 mg PO DAILY 05/04/16 10/06/19 Nitroglycerin Sl Tabs [Nitrostat] 0.4 mg SL Q5M PRN 07/19/16 10/06/19 Escitalopram [Lexapro] 20 mg PO DAILY 12/16/16 10/06/19 amLODIPine [Norvasc] 5 mg PO DAILY 02/07/18 10/06/19 Albuterol Sulfate [Proair Hfa] 2 puff INHALATION RT-QID PRN 02/13/19 10/06/19 Clotrimazole/Betameth Cream 1 applic TOPICAL BID PRN 10/06/19 10/06/19 [Lotrisone] Previous Rx's Medication Instructions Recorded Aspirin EC [Ecotrin Low Dose] 81 mg PO DAILY #30 tablet. 06/19/19 Atorvastatin [Lipitor] 80 mg PO HS #30 tab 06/19/19 Ticagrelor [Brilinta] 90 mg PO BID #60 tab 06/19/19 Allergies Allergy/AdvReac Type Severity Reaction Status Date / Time rivaroxaban [From Xarelto] Allergy Severe Abdominal Verified 10/06/19 16:23 Pain Beta-Blockers Allergy Rash/Hives Verified 10/06/19 16:23 (Beta-Adrenergic Bloc paroxetine HCl [From Paxil] AdvReac Unknown Abdominal Verified 10/06/19 16:23 Pain apixaban [From Eliquis] AdvReac Abdominal Verified 10/06/19 16:23 Pain gabapentin AdvReac Abdominal Verified 10/06/19 16:23 Pain warfarin AdvReac Abdominal Verified 10/06/19 16:23 Pain Review of Systems ROS Statement: Those systems with pertinent positive or pertinent negative responses have been documented in the HPI. ROS Other: All systems not noted in ROS Statement are negative. Past Medical History Past Medical History: Coronary Artery Disease (CAD), Chest Pain / Angina, GERD/Reflux, GI Bleed, Hyperlipidemia, Hypertension, Myocardial Infarction (VT), Musculoskeletal Disorder, Osteoarthritis (OA), Pneumonia, Renal Disease, Syncope, Thyroid Disorder Additional Past Medical History / Comment(s): Episodes of acute renal failure associated with dehydration, diverticulitis, IBS, return of hiatal hernia, bronchitis, hypothyroid, chronic low back pain with bilateral sciatica, lumbar DDD, past migraines, DJD, numbness tingling bilateral great toes/feet, 4 DVTs L leg surgically removed. Last Myocardial Infarction Date:: 2013 History of Any Multi-Drug Resistant Organisms: None Reported Past Surgical History: Back Surgery, Cholecystectomy, Heart Catheterization, Heart Catheterization With Stent, Hernia Repair, Orthopedic Surgery Additional Past Surgical History / Comment(s): Back fusions L3-L5, ORIF L ankle, L hand fracture with surgery, R knee arthroscopy x2, R elbow tendon release, R shoulder arthroscopy, lumbar spine cyst removed, pain clinic procedures, taylor fundoplication, EGD, colonoscopy, 2019 arteriogram/thrombus extraction at [facility]. Past Anesthesia/Blood Transfusion Reactions: No Reported Reaction Date of Last Stent Placement:: 2013 Past Psychological History: Depression Smoking Status: Never smoker Past Alcohol Use History: Occasional Past Drug Use History: Marijuana - Past Family History Mother Family Medical History: Thyroid Disorder Additional Family Medical History / Comment(s): Mother is living. Father Family Medical History: Coronary Artery Disease (CAD), Diabetes Mellitus Additional Family Medical History / Comment(s): Father had CABG. He at the age of 84 yrs in a MVA. Sister(s) Family Medical History: Cancer, Thyroid Disorder Additional Family Medical History / Comment(s): SKIN CA/ #2 sister had thyroid cancer General Exam Limitations: no limitations General appearance: alert, in no apparent distress Head exam: Present: atraumatic, normocephalic, normal inspection Eye exam: Present: normal appearance, PERRL, EOMI. Absent: scleral icterus, conjunctival injection, periorbital swelling ENT exam: Present: normal exam, mucous membranes moist Neck exam: Present: normal inspection, full ROM. Absent: tenderness, meningismus, lymphadenopathy Respiratory exam: Present: normal lung sounds bilaterally. Absent: respiratory distress, wheezes, rales, rhonchi, stridor Cardiovascular Exam: Present: regular rate, normal rhythm, normal heart sounds. Absent: systolic murmur, diastolic murmur, rubs, gallop, clicks GI/Abdominal exam: Present: soft, normal bowel sounds. Absent: distended, tenderness, guarding, rebound, rigid Neurological exam: Present: alert Course Vital Signs 10/06/19 10/06/19 10/06/19 13:45 15:00 16:43 Temperature 98.2 F 99.4 F Pulse Rate 107 H 93 89 Respiratory 24 16 16 Rate Blood Pressure 154/97 143/93 138/98 O2 Sat by Pulse 98 96 98 Oximetry 10/06/19 10/06/19 16:59 18:00 Temperature 98.5 F Pulse Rate 83 88 Respiratory 16 16 Rate Blood Pressure 138/87 137/96 O2 Sat by Pulse 97 97 Oximetry Medical Decision Making - Medical Decision Making Patient presents to the emergency room for nausea vomiting diarrhea. Patient has had episodes of a canine the past related to dehydration. Today patient does have a white blood cell count of 19. CMP does show acute renal failure with a creatinine of 4.48 and a BUN of 29. Lactic acid elevated at 2.5 which is likely related to dehydration. There is no evidence of infection at this time a nd urine or CT. Patient will be admitted for acute renal failure. Nephrology consulted. Labs will be repeated in the morning. - Lab Data Result diagrams: 10/06/19 14:34 10/06/19 14:34 Lab Results 10/06/19 10/06/19 10/06/19 Range/Units 14:34 14:34 14:34 WBC 19.9 H (3.8-10.6) k/uL RBC 5.80 (4.30-5.90) m/uL Hgb 16.9 (13.0-17.5) gm/dL Hct 49.4 (39.0-53.0) % MCV 85.1 (80.0-100.0) fL MCH 29.1 (25.0-35.0) pg MCHC 34.1 (31.0-37.0) g/dL RDW 14.7 (11.5-15.5) % Plt Count 333 (150-450) k/uL Neutrophils % 88 % Lymphocytes % 6 % Monocytes % 4 % Eosinophils % 1 % Basophils % 0 % Neutrophils # 17.5 H (1.3-7.7) k/uL Lymphocytes # 1.1 (1.0-4.8) k/uL Monocytes # 0.9 (0-1.0) k/uL Eosinophils # 0.1 (0-0.7) k/uL Basophils # 0.1 (0-0.2) k/uL Sodium 135 L (137-145) mmol/L Potassium 4.6 (3.5-5.1) mmol/L Chloride 100 (98-107) mmol/L Carbon Dioxide 13 L (22-30) mmol/L Anion Gap 22 mmol/L BUN 29 H (9-20) mg/dL Creatinine 4.48 H (0.66-1.25) mg/dL Est GFR (CKD-EPI)AfAm 15 (>60 ml/min/1.73 sqM) Est GFR (CKD-EPI)NonAf 13 (>60 ml/min/1.73 sqM) Glucose 144 H (74-99) mg/dL Lactic Ac Sepsis Rflx Plasma Lactic Acid [place] 2.5 H* (0.7-2.0) mmol/L Calcium 11.5 H (8.4-10.2) mg/dL Total Bilirubin 1.1 (0.2-1.3) mg/dL AST 34 (17-59) U/L ALT 28 (4-49) U/L Alkaline Phosphatase 142 H (38-126) U/L Total Protein 9.5 H (6.3-8.2) g/dL Albumin 5.7 H (3.5-5.0) g/dL Amylase 65 (30-110) U/L Lipase 117 (23-300) U/L Urine Color Urine Appearance (Clear) Urine pH (5.0-8.0) Ur Specific [place] (1.001-1.035) Urine Protein (Negative) Urine Glucose (UA) (Negative) Urine Ketones (Negative) Urine Blood (Negative) Urine Nitrite (Negative) Urine Bilirubin (Negative) Urine Urobilinogen (<2.0) mg/dL Ur Leukocyte Esterase (Negative) Urine RBC (0-5) /hpf Urine WBC (0-5) /hpf Ur Squamous Epith Cells (0-4) /hpf Amorphous Sediment (None) /hpf Urine Bacteria (None) /hpf Hyaline Casts (0-2) /lpf Urine Mucus (None) /hpf 10/06/19 10/06/19 10/06/19 Range/Units 15:20 15:38 16:23 WBC (3.8-10.6) k/uL RBC (4.30-5.90) m/uL Hgb (13.0-17.5) gm/dL Hct (39.0-53.0) % MCV (80.0-100.0) fL MCH (25.0-35.0) pg MCHC (31.0-37.0) g/dL RDW (11.5-15.5) % Plt Count (150-450) k/uL Neutrophils % % Lymphocytes % % Monocytes % % Eosinophils % % Basophils % % Neutrophils # (1.3-7.7) k/uL Lymphocytes # (1.0-4.8) k/uL Monocytes # (0-1.0) k/uL Eosinophils # (0-0.7) k/uL Basophils # (0-0.2) k/uL Sodium (137-145) mmol/L Potassium (3.5-5.1) mmol/L Chloride (98-107) mmol/L Carbon Dioxide (22-30) mmol/L Anion Gap mmol/L BUN (9-20) mg/dL Creatinine (0.66-1.25) mg/dL Est GFR (CKD-EPI)AfAm (>60 ml/min/1.73 sqM) Est GFR (CKD-EPI)NonAf (>60 ml/min/1.73 sqM) Glucose (74-99) mg/dL Lactic Ac Sepsis Rflx Y Plasma Lactic Acid [place] (0.7-2.0) mmol/L Calcium (8.4-10.2) mg/dL Total Bilirubin (0.2-1.3) mg/dL AST (17-59) U/L ALT (4-49) U/L Alkaline Phosphatase (38-126) U/L Total Protein (6.3-8.2) g/dL Albumin (3.5-5.0) g/dL Amylase (30-110) U/L Lipase (23-300) U/L Urine Color Yellow Yellow Urine Appearance Clear Turbid (Clear) Urine pH 7.0 5.5 (5.0-8.0) Ur Specific [place] 1.011 1.022 (1.001-1.035) Urine Protein Negative 2+ H (Negative) Urine Glucose (UA) Negative Negative (Negative) Urine Ketones Negative Trace H (Negative) Urine Blood Negative Small H (Negative) Urine Nitrite Negative Negative (Negative) Urine Bilirubin Negative 1+ H (Negative) Urine Urobilinogen <2.0 2.0 (<2.0) mg/dL Ur Leukocyte Esterase Negative Trace H (Negative) Urine RBC <1 (0-5) /hpf Urine WBC 4 (0-5) /hpf Ur Squamous Epith Cells 1 (0-4) /hpf Amorphous Sediment Occasional H (None) /hpf Urine Bacteria Occasional H (None) /hpf Hyaline Casts 11 H (0-2) /lpf Urine Mucus Rare H (None) /hpf Disposition Clinical Impression: Acute kidney failure, Nausea vomiting and diarrhea, Leukocytosis, Lactic acidosis Disposition: ADMITTED IP TO THIS [facility] Condition: Fair Is patient prescribed a controlled substance at d/c from ED?: No Referrals: Miki Nava DO [Primary Care Provider] - 1-2 days
[2019-10-06 15:05] LABS: Basophils # (A) 0.1 k/uL (0-0.2); Basophils % (A) 0 %; Eosinophils # (A) 0.1 k/uL (0-0.7); Eosinophils % (A) 1 %; HCT 49.4 % (39.0-53.0); HGB 16.9 gm/dL (13.0-17.5); Lymphocytes # (A) 1.1 k/uL (1.0-4.8); Lymphocytes % (A) 6 %; MCH 29.1 pg (25.0-35.0); MCHC 34.1 g/dL (31.0-37.0); MCV 85.1 fL (80.0-100.0); Mean Platelet Volume 7.7; Monocytes # (A) 0.9 k/uL (0-1.0); Monocytes % (A) 4 %; Neutrophils # (A) 17.5 k/uL (1.3-7.7); Neutrophils % (A) 88 %; Platelet Count 333 k/uL (150-450); RDW 14.7 % (11.5-15.5); WBC 19.9 k/uL (3.8-10.6)
[2019-10-06 15:30] LABS: Albumin 5.7 g/dL (3.5-5.0); Calcium 11.5 mg/dL (8.4-10.2); Potassium 4.6 mmol/L (3.5-5.1); Total Bilirubin 1.1 mg/dL (0.2-1.3); Total Protein 9.5 g/dL (6.3-8.2)
[2019-10-06 16:25] LABS: Color,Urine Yellow
[2019-10-06 16:26] LABS: Appearance,Urine Clear (Clear)
[2019-10-06 16:28] LABS: Protein,Urine Negative (Negative); Specific Gravity,Urine 1.011 (1.001-1.035)
[2019-10-06 16:29] LABS: Bilirubin,Urine Negative (Negative); Blood,Urine Negative (Negative); Glucose,Urine (UA) Negative (Negative); Ketones,Urine Negative (Negative)
--- NOTE | 2019-10-06 16:29 | CT ---
EXAMINATION TYPE: CT abdomen pelvis wo con DATE OF EXAM: 10/06/2019 COMPARISON: 12/16/2016 INDICATION: Abdominal pain, nausea and vomiting. History of renal disease. DLP: 956.1 mGycm, Automated exposure control for dose reduction was used. CONTRAST: 0 mL of Isovue 300. Study performed without Oral Contrast TECHNIQUE: Axial images were obtained from above the diaphragm to the pubic rami in the axial plane a t 5 mm thick sections. Reconstructed images are reviewed on the computer in the coronal plane. FINDINGS: Limited CT sections are obtained the lung bases. The lung bases are clear. Artery calcification is noted. CT ABDOMEN: Liver: There is a 2.7 cm cyst along the anterior inferior right lobe liver with a Hounsfield unit priscila surement of 3 compatible with a cyst. Spleen: Normal. Small splenule is at the anterior inferior sple en. Pancreas: Normal Adrenal glands: The adrenal glands are normal. Gallbladder: Surgically absent Kidneys: No masses are evident. No hydronephrosis is present. No cysts are present. No suspicious renal or ureteral stones are evident. Aorta: Vascular calcification is within the aorta. Inferior vena cava: Normal. CT PELVIS: Loops of bowel within the abdomen and pelvis are normal. Study is without oral contrast limiting bowel evaluation. Appendix: Normal as visualized. Urinary bladder: Normal. Genitourinary structures: Prostate is unremarkable Osseous structures: No suspicious lytic or sclerotic lesions. Postsurgical lumbar changes are evident . IMPRESSIONS: 1. Hepatic cyst. 2. No suspicious acute changes.
[2019-10-06 16:30] LABS: Leukocyte Esterase,Urine Negative (Negative); Nitrite,Urine Negative (Negative); Urobilinogen,Urine <2.0 mg/dL (<2.0)
[2019-10-06] MEDS ORDERED: NALOXONE 0.4 MG/ML 1 ML VIAL IV PRN (16:42)
[2019-10-06 17:07] LABS: Amorphous Sediment,Urine Occasional /hpf; Appearance,Urine Turbid (Clear); Bacteria,Urine Occasional /hpf; Bilirubin,Urine 1+ (Negative); Blood,Urine Small (Negative); Color,Urine Yellow; Glucose,Urine (UA) Negative (Negative); Hyaline Casts,Urine 11 /lpf (0-2); Ketones,Urine Trace (Negative); Leukocyte Esterase,Urine Trace (Negative); Mucus,Urine Rare /hpf; Nitrite,Urine Negative (Negative); PH, Urine 5.5 (5.0-8.0); Protein,Urine 2+ (Negative); RBC,Urine <1 /hpf (0-5); Specific Gravity,Urine 1.022 (1.001-1.035); Squamous Epithelial Cell,Urine 1 /hpf (0-4); WBC,Urine 4 /hpf (0-5)
[2019-10-06] MEDS: HYDROmorphone 0.5 MG/0.5 ML SYRINGE IVP PRN ×2 (18:28→21:43)
[2019-10-06] MEDS: SODIUM CHLORIDE 0.9% 1,000 ML IV SCH (18:29)
[2019-10-06] MEDS: TICAGRELOR 90 MG TAB PO SCH (23:45)
[2019-10-06] MEDS ORDERED: NITROGLYCERIN SL TABS 0.4 MG TAB SUBLINGUAL PRN (23:59)
[2019-10-06] MEDS ORDERED: CLOTRIMAZOLE/BETAMETH 1-0.05% CREAM 45 GM TUBE TOPICAL PRN (23:59)
[2019-10-07] MEDS ORDERED: ALPRAZolam 0.25 MG TAB PO PRN (00:01)
[2019-10-07] MEDS ORDERED: HYDROcodone/APAP 5-325MG 1 EACH TAB PO PRN (00:01)
[2019-10-07] MEDS ORDERED: TEMAZEPAM 15 MG CAP PO PRN (00:01)
[2019-10-07] MEDS: HYDROmorphone 0.5 MG/0.5 ML SYRINGE IVP PRN ×5 (02:15→19:38)
[2019-10-07] MEDS: SODIUM CHLORIDE 0.9% 1,000 ML IV SCH ×2 (05:26→16:41)
[2019-10-07] MEDS: LEVOTHYROXINE 75 MCG TAB PO SCH (05:26)
--- NOTE | 2019-10-07 05:41 | HP ---
HISTORY AND PHYSICAL DATE OF SERVICE: 10/06/2019 I am covering for Dr. Nava. CHIEF COMPLAINT: Nausea, vomiting, diarrhea, weakness. HISTORY OF PRESENT ILLNESS: This 64-year-old gentleman with the past history of CAD, history of GERD, GI bleed, hypertension, hypertension, myocardial infarction, history of DJD, hypothyroidism, history of back surgery, cholecystectomy, history of CAD with stent being followed by Dr. Nava in the outpatient setting was not feeling well today. The patient started to have nausea, vomiting, diarrhea at least 4 times. The patient complaining of weakness also. The patient also had a and CAD stent also recently. The patient came to [facility] and admitted for further evaluation and treatment. Creatinine was found to be 4.48. The baseline creatinine was around 0.79, indicating acute renal failure. The plasma lactic acid was 2.5, also calcium 7.2 indicating dehydration. UA showed possible UTI. White count is elevated. There is no history of fever, rigors, chills. No history of headache, loss of consciousness, seizures at this time. PAST MEDICAL HISTORY: History of CAD, history of GERD, GI bleed, hypertension, hyperlipidemia, myocardial infarction, history of DJD, history of pneumonia, hypothyroidism, history of back surgery. MEDICATIONS: Home medications are Lipitor 80 mg q.h.s., Lotrisone 1 application b.i.d. p.r.n., Nitrostat 0.4 mg sublingual p.r.n., ProAir 2 puffs q.i.d. p.r.n., clonidine 0.1 p.o. b.i.d., Norvasc 5 mg p.o. daily, Brilinta 90 mg p.o. b.i.d.. Omeprazole 20 mg p.o. daily, Synthroid 75 mcg, Lexapro 20 mg daily, Ecotrin 81 mg daily. ALLERGIES: XARELTO, BETA BLOCKERS, PAXIL, ELIQUIS, GABAPENTIN, WARFARIN. FAMILY HISTORY: History of CAD, CABG, diabetes in the family. SOCIAL HISTORY: Previous history of smoking THC. Occasional alcohol. REVIEW OF SYSTEMS: ENT: No diminished vision or hearing. CARDIOVASCULAR: As mentioned earlier. RESPIRATORY: As mentioned earlier. GI: As mentioned earlier. : As mentioned earlier. NERVOUS SYSTEM: No numbness or weakness. ALLERGY/IMMUNOLOGY: No asthma or hayfever. MUSCULOSKELETAL: As mentioned earlier. HEMATOLOGY: No history of anemia. ENDOCRINE: Hypothyroidism. CONSTITUTIONAL: As mentioned earlier. DERMATOLOGY: Negative. RHEUMATOLOGY: Negative. PSYCHIATRY: As mentioned earlier. PHYSICAL EXAM: GENERAL: Patient is alert, oriented x3. VITAL SIGNS: Pulse is 85, blood pressure 119/74, respirations 16, temperature 98.4, pulse ox 98% on room air. HEENT: Conjunctivae normal. Oral mucosa dry. NECK: No jugular venous distention. No carotid bruits. No lymph node enlargement. RESPIRATORY: Breath sounds diminished at the bases. No rhonchi, no crackles. HEART: S1 and S2, muffled. No S3 or S4. ABDOMEN: Soft, no tenderness. No masses palpable. Obese. EXTREMITIES: No edema, no swelling. NERVOUS SYSTEM: Higher functions as mentioned earlier. Moves all 4 limbs. No focal motor or sensory deficit. LYMPHATICS: No lymph nodes in the neck or axilla. SKIN: No ulcer, rash. JOINTS: No active deforming arthropathy. LABS: WBC 19, sodium 135, creatinine 4.48. Plasma lactic acid 2.5, calcium 11.4. Other labs are noted. ASSESSMENT: 1. Acute renal failure with acute tubular necrosis prerenal, acute renal failure secondary to dehydration possibly. 2. Nausea, vomiting and diarrhea, possible acute gastroenteritis. 3. Dehydration. 4. Hyponatremia, hypovolemic. 5. Increased WBC. 6. Possible acute urinary tract infection present on admission. 7. Elevated lactic acid secondary to dehydration. 8. History of coronary artery disease with stent. 9. History of gastroesophageal reflux disease. 10.History of gastrointestinal bleed. 11.Hypertension. 12.Hyperlipidemia. 13.Myocardial infarction. 14.History of pneumonia. 15.History of degenerative joint disease. 16.History of syncope. 17.History of renal failure previously. 18.History of irritable bowel syndrome. 19.History of bronchitis. 20.History of deep vein thrombosis. 21.History of degenerative joint disease and back fusion. 22.History of THC. 23.FULL CODE. RECOMMENDATIONS AND DISCUSSION: In this 64-year-old gentleman who presented with multiple complex medical issues, we will monitor the patient closely. Continue the current management and symptomatic treatment. Will initiate IV hydration. CT scan of the abdomen showed no acute abnormality. Empiric antibiotics will be used and will obtain the cultures. If the diarrhea persisted, will check for C difficile also. Otherwise, resume the home medications. Avoid nephrotoxic medications. Nephrology has also been consulted. Prognosis guarded because of multiple complex medical issues. Further recommendations to follow. MMODL / IJN: [id number] / MTDD
[2019-10-07] MEDS: ALBUTEROL NEBULIZED 2.5 MG/3 ML INHALATION PRN ×4 (07:24→19:52)
[2019-10-07] MEDS: ESCITALOPRAM 20 MG TAB PO SCH (07:36)
[2019-10-07] MEDS: cloNIDine HCL 0.1 MG TAB PO SCH ×2 (07:36→20:49)
[2019-10-07] MEDS: ASPIRIN 81 MG PO SCH (07:36)
[2019-10-07] MEDS: PANTOPRAZOLE 40 MG TABLET PO SCH (07:36)
[2019-10-07] MEDS: TICAGRELOR 90 MG TAB PO SCH ×2 (07:37→20:49)
[2019-10-07] MEDS: amLODIPine 5 MG TAB PO SCH (07:37)
[2019-10-07] MEDS: HEPARIN SODIUM,PORCINE 5,000 UNIT/ML 1 ML VIAL SQ SCH ×2 (07:37→20:49)
[2019-10-07] MEDS ORDERED: NON FORMULARY DRUG (Omeprazole [Omeprazole] 20 MG) PO SCH (09:00)
[2019-10-07 09:18] LABS: Albumin 4.6 g/dL (3.5-5.0); Calcium 9.6 mg/dL (8.4-10.2); Phosphorus 4.1 mg/dL (2.5-4.5); Total Bilirubin 0.9 mg/dL (0.2-1.3); Total Protein 7.3 g/dL (6.3-8.2)
[2019-10-07 15:53] VITALS: RESP 18
[2019-10-07] MEDS ORDERED: ATORVASTATIN 80 MG TAB PO SCH (21:00)
--- NOTE | 2019-10-07 23:49 | PN ---
PROGRESS NOTE DATE OF SERVICE: 10/07/2019 I am covering for Dr. Nava. This 64-year-old gentleman admitted with significant renal failure also had abdominal symptoms. The patient also had multiple other medical issues including peripheral vascular disease, also. The abdomen and pelvis CAT scan was done yesterday which showed hepatic cyst and no suspicious acute changes. The patient was given IV fluids. With IV fluids, the creatinine is 1.96 at this time. Sodium is 132. Yesterday, sodium was 135. This is being closely monitored. UA was reviewed. It showed 1+ bilirubin and 2+ protein. PAST MEDICAL HISTORY: Reviewed. REVIEW OF SYSTEMS: CARDIOVASCULAR SYSTEM: No angina. RESPIRATORY SYSTEM: As mentioned earlier. GI: As mentioned earlier. : As mentioned earlier. NERVOUS SYSTEM: No numbness or weakness. CURRENT MEDICATIONS: Current medications are reviewed and include [place] 5 mg, Xanax, Norvasc, aspirin, Lipitor, Lotrisone, Catapres, Lexapro, heparin, Dilaudid, Synthroid, Protonix, Restoril, Brilinta. PHYSICAL EXAMINATION: The patient is alert and oriented x3. Pulse 74 pressure 131/84, respirations 17, temperature 98.2, pulse ox 97% on room air. HEENT: Conjunctivae normal. NECK: No JVD. CARDIOVASCULAR: S1, S2 muffled. RESPIRATORY: Breath sounds are diminished at the bases. A few scattered rhonchi and crackles. ABDOMEN: Soft, nontender. LEGS: No edema no swelling. NERVOUS SYSTEM:No focal deficits. LABS: WBC 19.9, sodium 132, potassium 4, creatinine is 1.96. UA noted. ASSESSMENT: 1. Acute renal failure with acute tubular necrosis with possibly secondary dehydration and prerenal factors possibly. 2. Nausea, vomiting, diarrhea, possible acute gastroenteritis. 3. Dehydration. 4. History of recurrent renal failure. 5. Hyponatremia, hypovolemic. 6. Increased WBC. 7. Possible acute urinary tract infection, present on admission. 8. Elevated lactic acid secondary to dehydration, present on admission. 9. History of coronary artery disease, stent. 10.History of gastroesophageal reflux disease. 11.History of gastrointestinal bleed. 12.Hypertension. 13.Hyperlipidemia. 14.History of myocardial infarction. 15.History of pneumonia. 16.History of degenerative joint disease. 17.History of syncope. 18.History of renal failure previously. 19.History of irritable bowel syndrome. 20.History of bronchitis. 21.History of deep vein thrombosis. 22.History of degenerative joint disease of the back and fusion. 23.History of THC. 24.FULL CODE. RECOMMENDATIONS AND DISCUSSION: I recommend to continue current medications, continue symptomatic treatment, continue with empiric antibiotics. Current IV fluids. Otherwise closely follow. Abdominal CAT scan has been reviewed. If the patient has symptomatic diarrhea, the patient might need GI evaluation including endoscopies. Otherwise. Dr. Nava will follow. Overall prognosis guarded. Avoid nephrotoxic medications. Guarded prognosis. Further recommendations to follow. MMODL / IJN: [id number] /
[2019-10-08] MEDS: HYDROmorphone 0.5 MG/0.5 ML SYRINGE IVP PRN ×4 (01:18→10:07)
--- NOTE | 2019-10-08 02:13 | CONS ---
CONSULTATION REASON FOR CONSULT: Acute kidney injury. HISTORY OF PRESENT ILLNESS: Patient is a 64-year-old male who has had previous admissions for severe acute kidney injury associated with intravascular volume depletion and hypotension. The patient's serum creatinine on admission was 4.48 and it is now down to 1.96, prior creatinine on June 19, 2019 was 0.79. The patient denies any history of fevers or chills. He has had significant bout of nausea, vomiting and diarrhea. He had some abdominal pain and cramping as well and generalized body aches. No history of obvious blood in the stools. The patient denies having eaten outside or having had any new medications or new kind of food. PAST MEDICAL HISTORY: Coronary artery disease, gastroesophageal reflux disease, history of GI bleed, hyperlipidemia, hypertension, [place], osteoarthritis, multiple episodes of acute kidney injury, mostly prerenal and significantly improved with IV hydration, history of diverticulitis, hiatal hernia, hypothyroidism, chronic back pain, migraines, neuropathy. PAST SURGICAL HISTORY: Back surgery, cholecystectomy, cardiac catheterization with stent placement, hernia repair, back fusion, knee arthroscopy, elbow tendon release, right shoulder arthroscopy. SOCIAL HISTORY: Negative for smoking, drug abuse or alcohol abuse. MEDICATIONS: Medications prior to admission include clonidine, Synthroid, omeprazole, Nitrostat, Lexapro, Norvasc, ProAir, Lotrisone, aspirin, Lipitor, Brilinta. ALLERGIES: Allergies include XARELTO, BETA BLOCKERS causes rash and hives. PAXIL, ELIQUIS, GABAPENTIN, and COUMADIN, all of them call cause abdominal pain. REVIEW OF SYSTEMS: As per HPI. Other systems negative. PHYSICAL EXAMINATION: Patient is comfortable, awake, alert, oriented x3, not in any acute distress. Blood pressure was 154/100, heart rate 76 per minute. He is afebrile. EXAMINATION OF THE HEART: S1, S2. EXAMINATION OF THE LUNGS: Bilateral breath sounds are heard. Abdomen is soft, nontender. Examination of lower extremities shows no evidence of edema. [employer] EXAM: Grossly intact. LABS: Labs show sodium of 132, potassium 4.0, chloride 102, CO2 is 18, BUN 34, creatinine 1.96. UA shows 2+ protein, trace ketones, small blood, WBCs 4. ASSESSMENT: 1. Acute kidney injury, prerenal, currently significantly improved. Continue with IV fluids. Expect further improvement in the next 24 to 48 hours. 2. Hypertension, maintained on clonidine, which we can continue along with the Norvasc. 3. History of diverticulitis and irritable bowel syndrome. 4. Lactic acidosis associated with hypovolemia, likely hypoperfusion. PLAN: Continue with IV fluids, repeat labs in a.m., symptomatic treatment. MMODL / IJN: [id number] /
[2019-10-08] MEDS: LEVOTHYROXINE 75 MCG TAB PO SCH (06:09)
[2019-10-08] MEDS: HEPARIN SODIUM,PORCINE 5,000 UNIT/ML 1 ML VIAL SQ SCH (07:14)
[2019-10-08] MEDS: ESCITALOPRAM 20 MG TAB PO SCH (07:15)
[2019-10-08] MEDS: ASPIRIN 81 MG PO SCH (07:15)
[2019-10-08] MEDS: PANTOPRAZOLE 40 MG TABLET PO SCH (07:15)
[2019-10-08] MEDS: amLODIPine 5 MG TAB PO SCH (07:15)
[2019-10-08] MEDS: cloNIDine HCL 0.1 MG TAB PO SCH (07:15)
[2019-10-08] MEDS: TICAGRELOR 90 MG TAB PO SCH (07:15)
[2019-10-08] MEDS: SODIUM CHLORIDE 0.9% 1,000 ML IV SCH (07:21)
[2019-10-08 08:10] VITALS: BP 157/89; PULSE 76; TEMP 98.7
[2019-10-08 10:48] LABS: Basophils % (A) 0 %; Eosinophils # (A) 0.1 k/uL (0-0.7); Eosinophils % (A) 1 %; HCT 39.9 % (39.0-53.0); Lymphocytes # (A) 1.4 k/uL (1.0-4.8); Lymphocytes % (A) 20 %; MCH 29.1 pg (25.0-35.0); MCHC 33.2 g/dL (31.0-37.0); MCV 87.9 fL (80.0-100.0); Mean Platelet Volume 7.7; Monocytes # (A) 0.6 k/uL (0-1.0); Monocytes % (A) 8 %; Neutrophils # (A) 4.8 k/uL (1.3-7.7); Neutrophils % (A) 69 %; Platelet Count 218 k/uL (150-450); RBC 4.54 m/uL (4.30-5.90); RDW 14.7 % (11.5-15.5)
[2019-10-08 10:51] LABS: HGB 13.2 gm/dL (13.0-17.5)
[2019-10-08 11:03] LABS: African American GFR (CKD) >90 (>60 ml/min/1.73 sqM); Anion Gap 8 mmol/L; Blood Urea Nitrogen 18 mg/dL (9-20); Carbon Dioxide 25 mmol/L (22-30); Chloride 103 mmol/L (98-107); Glucose 89 mg/dL (74-99); Non-African American GFR(CKD) 88 (>60 ml/min/1.73 sqM); Potassium 4.2 mmol/L (3.5-5.1); Sodium 136 mmol/L (137-145)
--- NOTE | 2019-10-08 16:46 | P.DS ---
Providers Date of admission: 10/06/19 16:40 Expected date of discharge: 10/08/19 Attending physician: Miki Nava Consults: 10/06/19 16:42 Consult Physician Routine Consulting Provider: Sally Pederson Consult Reason/Comments: ARF Do you want consulting provider notified?: Yes Primary care physician: Miki Nava Hospital Course: Final diagnoses Nausea, vomiting, diarrhea, possible acute gastroenteritis, possible gastroparesis secondary to THC and alcohol use. Acute renal failure with acute tubular necrosis, secondary to the above, and prerenal factors, significantly improved Hyponatremia, hypovolemic, resolved Lactic acidosis, present on admission, resolved CAD gastroesophageal reflux disease Hypertension Hepatic cyst with no acute suspicious changes reported per CT Hospital course: This is 64-year-old gentleman admitted with nausea vomiting diarrhea, acute renal failure and multiple other medical issues. Evaluated by nephrology. Received IV fluid hydration. CT of abdomen and pelvis performed reporting hepatic cyst. Significant clinical improvement. Cleared by nephrology for discharge. Patient is being discharged home in a stable condition with guarded prognosis. Please refer to EHR for further details. The impression and plan of care has been dictated as directed. : I performed a history and examination of this patient, discussed the same with the dictator. I agree with the dictator's note ,documented as a scribe. Any additional findings or plans will be noted. Patient Condition at Discharge: Stable Plan - Discharge Summary Discharge Rx Participant: Yes New Discharge Prescriptions: Continue cloNIDine HCL [Clonidine HCl] 0.1 mg PO BID Levothyroxine Sodium [Synthroid] 75 mcg PO DAILY Omeprazole 20 mg PO DAILY Nitroglycerin Sl Tabs [Nitrostat] 0.4 mg SL Q5M PRN PRN Reason: Chest Pain Escitalopram [Lexapro] 20 mg PO DAILY amLODIPine [Norvasc] 5 mg PO DAILY Albuterol Sulfate [Proair Hfa] 2 puff INHALATION RT-QID PRN PRN Reason: Shortness Of Breath Ticagrelor [Brilinta] 90 mg PO BID #60 tab Atorvastatin [Lipitor] 80 mg PO HS #30 tab Aspirin EC [Ecotrin Low Dose] 81 mg PO DAILY #30 tablet. Clotrimazole/Betameth Cream [Lotrisone] 1 applic TOPICAL BID PRN PRN Reason: itching in groin area Discharge Medication List cloNIDine HCL [Clonidine HCl] 0.1 mg PO BID 11/16/15 [History] Levothyroxine Sodium [Synthroid] 75 mcg PO DAILY 05/04/16 [History] Omeprazole 20 mg PO DAILY 05/04/16 [History] Nitroglycerin Sl Tabs [Nitrostat] 0.4 mg SL Q5M PRN 07/19/16 [History] Escitalopram [Lexapro] 20 mg PO DAILY 12/16/16 [History] amLODIPine [Norvasc] 5 mg PO DAILY 02/07/18 [History] Albuterol Sulfate [Proair Hfa] 2 puff INHALATION RT-QID PRN 02/13/19 [History] Aspirin EC [Ecotrin Low Dose] 81 mg PO DAILY #30 tablet.dr 06/19/19 [Rx] Atorvastatin [Lipitor] 80 mg PO HS #30 tab 06/19/19 [Rx] Ticagrelor [Brilinta] 90 mg PO BID #60 tab 06/19/19 [Rx] Clotrimazole/Betameth Cream [Lotrisone] 1 applic TOPICAL BID PRN 10/06/19 [History] Follow up Appointment(s)/Referral(s): Miki Nava DO [Primary Care Provider] - 3 Days (office not answering Please call to make appointment) Caridad Patrick MD [STAFF PHYSICIAN] - 10/25/19 10:30 am (With Donna Please arrive 20 minutes early to fill out papaerwork) Ambulatory/Diagnostic Orders: Complete Blood Count w/diff [LAB.AMB] Time Frame: 3 Days, Location: None Selected Patient Instructions/Handouts: Dehydration (DC), Acute Kidney Injury (DC) Activity/Diet/Wound Care/Special Instructions: Pending Labs/Creatinine, final dc rec., clearance from Nephrology Discharge Disposition: HOME SELF-CARE
--- NOTE | 2019-10-08 18:38 | PN ---
PROGRESS NOTE Patient is seen for followup for acute kidney injury. His diarrhea has significantly improved. He is tolerating oral intake. Patient has been maintained on IV fluids. Serum creatinine is down to 0.9 mg/dL. PHYSICAL EXAMINATION: On examination today, blood pressure was 157/89, heart rate 76 per minute. Patient is afebrile. EXAMINATION OF THE HEART: S1 and S2. EXAMINATION OF LUNGS: Bilateral breath sounds are heard. ABDOMEN: Soft, non-tender. Examination of lower extremities shows no evidence of edema. 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 LABS: Labs show sodium 136, potassium 4.2, chloride 103, BUN 18, serum creatinine 0.9, hemoglobin of 13.2 g/dL. ASSESSMENT: 1. Acute kidney injury, prerenal, secondary to severe volume depletion, currently significantly improved. 2. Hypovolemic hyponatremia, now improved. 3. Hypovolemia from gastrointestinal fluid loss, now improved. 4. Gastroenteritis/diverticulitis, currently improved. PLAN: Patient is stable for discharge from nephrology standpoint. MMODL / IJN: [id number] /
== END 2019-10-08 11:51 | disposition home or self-care (01) | DRG 393 ==
LOC: EC 13:38 → 4SSUR 16:40
PROVIDERS: ADMIT Family Medicine; ATTEND Family Medicine
DX: K52.1 Toxic gastroenteritis and colitis (principal); N17.0 Acute kidney failure with tubular necrosis; K57.92 Diverticulitis of intestine, part unspecified, without perforation or abscess without bleeding; E87.2 Acidosis; E87.1 Hypo-osmolality and hyponatremia; K58.0 Irritable bowel syndrome with diarrhea; E86.0 Dehydration; K31.84 Gastroparesis; I25.10 Atherosclerotic heart disease of native coronary artery without angina pectoris; K21.9 Gastro-esophageal reflux disease without esophagitis; M19.90 Unspecified osteoarthritis, unspecified site; E78.5 Hyperlipidemia, unspecified; E03.9 Hypothyroidism, unspecified; G43.909 Migraine, unspecified, not intractable, without status migrainosus; F32.9 Major depressive disorder, single episode, unspecified; I10 Essential (primary) hypertension; E86.1 Hypovolemia; I95.9 Hypotension, unspecified; K76.89 Other specified diseases of liver; T40.7X5A Adverse effect of cannabis (derivatives), initial encounter; I73.9 Peripheral vascular disease, unspecified; Z83.3 Family history of diabetes mellitus; Z82.49 Family history of ischemic heart disease and other diseases of the circulatory system; Z86.718 Personal history of other venous thrombosis and embolism; Z79.82 Long term (current) use of aspirin; Z79.890 Hormone replacement therapy; Z79.899 Other long term (current) drug therapy; Z79.02 Long term (current) use of antithrombotics/antiplatelets; Z88.8 Allergy status to other drugs, medicaments and biological substances; I25.2 Old myocardial infarction; Z87.01 Personal history of pneumonia (recurrent); Z95.5 Presence of coronary angioplasty implant and graft; Z87.891 Personal history of nicotine dependence; Z98.890 Other specified postprocedural states; Z90.49 Acquired absence of other specified parts of digestive tract; Z98.1 Arthrodesis status; Z87.19 Personal history of other diseases of the digestive system; Z80.8 Family history of malignant neoplasm of other organs or systems; Z84.89 Family history of other specified conditions
CPT/HCPCS: 36415; 51701; 74176; 80048; 80053; 81001; 81003; 82150; 83605; 83690; 83735; 84100; 85025; 94640; 96361; 96374; 96375; 96376; 99285

== ENCOUNTER 2019-11-30 15:28 | Emergency (ER) | payer MEDICARE ==
[2019-11-30] MEDS ORDERED: SODIUM CHLORIDE 0.9% 500 ML 500 ML IV STA (15:35)
[2019-11-30] MEDS ORDERED: HYDROmorphone 1 MG/ML 1 ML SYRINGE IVP STA (15:45)
--- NOTE | 2019-11-30 15:49 | ED ---
General Adult HPI - General Chief complaint: Abdominal Pain Stated complaint: Abdominal pain Time Seen by Provider: 11/30/19 15:35 Source: patient Mode of arrival: wheelchair Limitations: no limitations - History of Present Illness Initial comments: Dictation was produced using [employer] dictation software. please excuse any grammatical, word or spelling errors. This patient was cared for during a federal and state declared state of emergency secondary to Covid 19 Chief Complaint: 64-year-old male with past medical history of coronary artery disease, GI bleed and renal disease presents with abdominal pain History of Present Illness: Patient is a 64-year-old male presents today with abdominal pain. Patient states she's been having on-and-off symptoms since yesterday. He localizes the pain to the periumbilical area. He has past medical history of cholecystectomy. 6 been dry heaving however has not had any episodes of emesis. He's been having normal bowel movements. Patient states the pain is intermittent. He tried to take some [id number] anti- inflammatory medications with minimal relief. Denies any exacerbating or mitigating factors. Does report constitutional symptoms. He states that today he started to feel warm. The ROS documented in this emergency department record has been reviewed and confirmed by me. Those systems with pertinent positive or negative responses have been documented in the HPI. All other systems are other negative and/or noncontributory. PHYSICAL EXAM: General Impression: Alert and oriented x3, acute distress secondary to pain HEENT: Normocephalic atraumatic, extra-ocular movements intact, pupils equal and reactive to light bilaterally, mucous membranes moist. Cardiovascular: Heart regular rate and rhythm Chest: Able to complete full sentences, no retractions, no tachypnea Abdomen: abdomen soft, , non-distended, no organomegaly, mild tenderness to palpation right lower quadrant, no rebound tenderness Musculoskeletal: Pulses present and equal in all extremities, no peripheral edema Motor: no focal deficits noted Neurological: CN II-XII grossly intact, no focal motor or sensory deficits noted Skin: Intact with no visualized rashes Psych: Normal affect and mood ED course: 64-year-old male presents with chief complaint of abdominal pain. Vital signs upon arrival are within acceptable limits. Patient has abdominal pain to the periumbilical area. He does have palpable tenderness to the right lower quadrant. His history of cholecystectomy. No other abdominal procedures. Chart review was performed. Patient was seen on October 05 for similar complaint. He had a CT of his abdomen and pelvis with contrast at that time without any cause of his symptoms. On the CT at that time he did have a 2.7 cm cyst along the right inferior right lobe of liver. Laboratory evaluation obtained showing no acute processes. CT abdomen and pelvis obtained showing no acute processes. Patient reevaluated bedside and reports significant improvement of symptoms. He is agreeable for discharge. Patient given referral to GI doctor. EKG interpretation: Ventricular rate 80, sinus rhythm,. Interval to 10, QRS 90, QTc 433. No MI prolongation, no QTC prolongation, no ST or T-wave changes noted. . Overall, this EKG is unremarkable - Related Data Home Medications Medication Instructions Recorded Confirmed cloNIDine HCL [Clonidine HCl] 0.1 mg PO BID 11/16/15 11/30/19 Levothyroxine Sodium [Synthroid] 75 mcg PO DAILY 05/04/16 11/30/19 Omeprazole 20 mg PO DAILY 05/04/16 11/30/19 Nitroglycerin Sl Tabs [Nitrostat] 0.4 mg SL Q5M PRN 07/19/16 11/30/19 Escitalopram [Lexapro] 20 mg PO DAILY 12/16/16 11/30/19 amLODIPine [Norvasc] 5 mg PO DAILY 02/07/18 11/30/19 Albuterol Sulfate [Proair Hfa] 2 puff INHALATION RT-QID PRN 02/13/19 11/30/19 Clotrimazole/Betameth Cream 1 applic TOPICAL BID PRN 10/06/19 11/30/19 [Lotrisone] Atorvastatin [Lipitor] 80 mg PO DAILY 11/30/19 11/30/19 Previous Rx's Medication Instructions Recorded Aspirin EC [Ecotrin Low Dose] 81 mg PO DAILY #30 tablet. 06/19/19 Ticagrelor [Brilinta] 90 mg PO BID #60 tab 06/19/19 Allergies Allergy/AdvReac Type Severity Reaction Status Date / Time rivaroxaban [From Xarelto] Allergy Severe Abdominal Verified 11/30/19 17:34 Pain Beta-Blockers Allergy Rash/Hives Verified 11/30/19 17:34 (Beta-Adrenergic Bloc paroxetine HCl [From Paxil] AdvReac Unknown Abdominal Verified 11/30/19 17:34 Pain apixaban [From Eliquis] AdvReac Abdominal Verified 11/30/19 17:34 Pain atorvastatin [From Lipitor] AdvReac Abdominal Verified 11/30/19 17:34 Pain gabapentin AdvReac Abdominal Verified 11/30/19 17:34 Pain warfarin AdvReac Abdominal Verified 11/30/19 17:34 Pain Review of Systems ROS Statement: Those systems with pertinent positive or pertinent negative responses have been documented in the HPI. ROS Other: All systems not noted in ROS Statement are negative. Past Medical History Past Medical History: Coronary Artery Disease (CAD), Chest Pain / Angina, GERD/Reflux, GI Bleed, Hyperlipidemia, Hypertension, Myocardial Infarction (MD), Musculoskeletal Disorder, Osteoarthritis (OA), Pneumonia, Renal Disease, Syncope, Thyroid Disorder Additional Past Medical History / Comment(s): Episodes of acute renal failure associated with dehydration, diverticulitis, IBS, return of hiatal hernia, bronchitis, hypothyroid, chronic low back pain with bilateral sciatica, lumbar DDD, past migraines, DJD, numbness tingling bilateral great toes/feet, 4 DVTs L leg surgically removed. Last Myocardial Infarction Date:: 06/2019 History of Any Multi-Drug Resistant Organisms: None Reported Past Surgical History: Back Surgery, Cholecystectomy, Heart Catheterization, Heart Catheterization With Stent, Hernia Repair, Orthopedic Surgery Additional Past Surgical History / Comment(s): Back fusions L3-L5, ORIF L ankle, L hand fracture with surgery, R knee arthroscopy x2, R elbow tendon release, R shoulder arthroscopy, lumbar spine cyst removed, pain clinic procedures, taylor fundoplication, EGD, colonoscopy, 2019 arteriogram/thrombus extraction at [facility]. Past Anesthesia/Blood Transfusion Reactions: No Reported Reaction Date of Last Stent Placement:: 2019 Past Psychological History: Depression Smoking Status: Never smoker Past Alcohol Use History: Occasional Past Drug Use History: Marijuana - Past Family History Mother Family Medical History: Thyroid Disorder Additional Family Medical History / Comment(s): Mother is living. Father Family Medical History: Coronary Artery Disease (CAD), Diabetes Mellitus Additional Family Medical History / Comment(s): Father had CABG. He at the age of 84 yrs in a MVA. Sister(s) Family Medical History: Cancer, Thyroid Disorder Additional Family Medical History / Comment(s): SKIN CA/ #2 sister had thyroid cancer General Exam Limitations: no limitations Course Vital Signs 11/30/19 11/30/19 15:30 17:24 Temperature 99.6 F Pulse Rate 93 64 Respiratory 24 18 Rate Blood Pressure 147/98 144/78 O2 Sat by Pulse 99 98 Oximetry Medical Decision Making - Lab Data Result diagrams: 11/30/19 16:04 11/30/19 16:04 Lab Results 11/30/19 11/30/19 Range/Units 16:04 16:04 WBC 10.1 (3.8-10.6) k/uL RBC 5.39 (4.30-5.90) m/uL Hgb 16.2 D (13.0-17.5) gm/dL Hct 47.8 (39.0-53.0) % MCV 88.7 (80.0-100.0) fL MCH 30.1 (25.0-35.0) pg MCHC 34.0 (31.0-37.0) g/dL RDW 13.8 (11.5-15.5) % Plt Count 278 (150-450) k/uL Neutrophils % 72 % Lymphocytes % 18 % Monocytes % 6 % Eosinophils % 1 % Basophils % 1 % Neutrophils # 7.3 (1.3-7.7) k/uL Lymphocytes # 1.8 (1.0-4.8) k/uL Monocytes # 0.6 (0-1.0) k/uL Eosinophils # 0.1 (0-0.7) k/uL Basophils # 0.1 (0-0.2) k/uL Sodium 135 L (137-145) mmol/L Potassium 4.8 (3.5-5.1) mmol/L Chloride 105 (98-107) mmol/L Carbon Dioxide 18 L (22-30) mmol/L Anion Gap 12 mmol/L BUN 21 H (9-20) mg/dL Creatinine 0.89 (0.66-1.25) mg/dL Est GFR (CKD-EPI)AfAm >90 (>60 ml/min/1.73 sqM) Est GFR (CKD-EPI)NonAf >90 (>60 ml/min/1.73 sqM) Glucose 111 H (74-99) mg/dL Calcium 9.9 (8.4-10.2) mg/dL Total Bilirubin 1.4 H (0.2-1.3) mg/dL AST 39 (17-59) U/L ALT 26 (4-49) U/L Alkaline Phosphatase 111 (38-126) U/L Total Protein 7.9 (6.3-8.2) g/dL Albumin 4.7 (3.5-5.0) g/dL Lipase 140 (23-300) U/L Disposition Clinical Impression: Abdominal pain Disposition: HOME SELF-CARE Condition: Good Instructions (If sedation given, give patient instructions): Abdominal Pain (ED) Is patient prescribed a controlled substance at d/c from ED?: No Referrals: Miki Nava DO [Primary Care Provider] - 1-2 days Esvin Harrell MD [STAFF PHYSICIAN] - 1-2 days Time of Disposition: 18:35
[2019-11-30 16:23] LABS: Basophils # (A) 0.1 k/uL (0-0.2); Basophils % (A) 1 %; Eosinophils # (A) 0.1 k/uL (0-0.7); Eosinophils % (A) 1 %; HCT 47.8 % (39.0-53.0); Lymphocytes # (A) 1.8 k/uL (1.0-4.8); Lymphocytes % (A) 18 %; MCH 30.1 pg (25.0-35.0); MCV 88.7 fL (80.0-100.0); Mean Platelet Volume 7.1; Monocytes # (A) 0.6 k/uL (0-1.0); Monocytes % (A) 6 %; Neutrophils # (A) 7.3 k/uL (1.3-7.7); Neutrophils % (A) 72 %; Platelet Count 278 k/uL (150-450); RBC 5.39 m/uL (4.30-5.90); RDW 13.8 % (11.5-15.5); WBC 10.1 k/uL (3.8-10.6)
[2019-11-30 16:25] LABS: HGB 16.2 gm/dL (13.0-17.5)
[2019-11-30 16:37] LABS: ALT 26 U/L (4-49); AST 39 U/L (17-59); African American GFR (CKD) >90 (>60 ml/min/1.73 sqM); Albumin 4.7 g/dL (3.5-5.0); Alkaline Phosphatase 111 U/L (38-126); Anion Gap 12 mmol/L; Blood Urea Nitrogen 21 mg/dL (9-20); Calcium 9.9 mg/dL (8.4-10.2); Carbon Dioxide 18 mmol/L (22-30); Chloride 105 mmol/L (98-107); Glucose 111 mg/dL (74-99); Non-African American GFR(CKD) >90 (>60 ml/min/1.73 sqM); Sodium 135 mmol/L (137-145); Total Bilirubin 1.4 mg/dL (0.2-1.3); Total Protein 7.9 g/dL (6.3-8.2)
[2019-11-30 16:42] LABS: Potassium 4.8 mmol/L (3.5-5.1)
[2019-11-30 17:24] VITALS: RESP 18
--- NOTE | 2019-11-30 17:35 | CT ---
EXAMINATION TYPE: CT abdomen pelvis w con DATE OF EXAM: 11/30/2019 COMPARISON: 10/06/2019. HISTORY: Mid Abdominal pain with nausea. CT DLP: 1583.9 mGycm Automated exposure control for dose reduction was used. TECHNIQUE: Helical acquisition of images was performed from the lung bases through the pelvis. CONTRAST: Performed without Oral Contrast and with IV Contrast, patient injected with 100 mL of Isovue 300. FINDINGS: LUNG BASES: No significant abnormality is appreciated. LIVER/GB: No acute abnormality is appreciated. Stable 2.8 cm right hepatic cyst. Hepatic steatosis an d cholecystectomy noted. PANCREAS: No significant abnormality is seen. SPLEEN: No significant abnormality is seen. Small splenule noted. ADRENALS: No significant abnormality is seen. KIDNEYS: No significant abnormality is seen. FREE AIR: No free air is visualized. RETROPERITONEAL ADENOPATHY: None visualized REPRODUCTIVE ORGANS: No significant abnormality is seen URINARY BLADDER: No significant abnormality is seen. PELVIC ADENOPATHY: None visualized. OSSEOUS STRUCTURES: No acute abnormality is seen. L3-L5 fusion noted. 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 BOWEL: No significant abnormality is seen. Small hiatal hernia. OTHER: None. IMPRESSION: NO ACUTE ABNORMALITY. CHRONIC FINDINGS ABOVE.
[2019-11-30 19:01] VITALS: BP 138/79; PULSE 70; TEMP 98
== END 2019-11-30 19:00 | disposition home or self-care (01) ==
LOC: EC 15:28
DX: R10.33 Periumbilical pain (principal); R10.813 Right lower quadrant abdominal tenderness; K76.89 Other specified diseases of liver; I10 Essential (primary) hypertension; I25.119 Atherosclerotic heart disease of native coronary artery with unspecified angina pectoris; K21.9 Gastro-esophageal reflux disease without esophagitis; E78.5 Hyperlipidemia, unspecified; K44.9 Diaphragmatic hernia without obstruction or gangrene; F32.9 Major depressive disorder, single episode, unspecified; I25.2 Old myocardial infarction; Z79.899 Other long term (current) drug therapy; Z79.890 Hormone replacement therapy; Z88.8 Allergy status to other drugs, medicaments and biological substances; Z90.49 Acquired absence of other specified parts of digestive tract
CPT/HCPCS: 36415; 93005; 80053; 83690; 85025; 74177; 99284; 96374; 96361; J1170; Q9967

== ENCOUNTER → 2019-12-17 | Outpatient (CLI) | payer MEDICARE ==
--- NOTE | 2019-12-17 21:41 | MR ---
EXAMINATION TYPE: MR lumbar spine wo/w con DATE OF EXAM: 12/17/2019 COMPARISON: Prior MRI lumbar spine January 21, 2015. Recent CT abdomen and pelvis November 30, 2019 HISTORY: Constant pain with difficulty walking for over 1 year per patient, stiffness, BLE radiculopa thy, failed lumbar fusion per order. TECHNIQUE: Multiplanar, multisequence images of the lumbar spine is performed without and with IV contrast, util izing 10 mL intravenous Gadavist FINDINGS: Sagittal images of the lumbar spine show vertebral body heights and alignment to remain sta ble and satisfactory. Persistent multilevel disc desiccation. Artifact from artificial disc material L3-L4 and L4-L5 levels redemonstrated. Disc space heights maintained above and below surgical levels. Evidence of extensive successful posterior decompression with laminectomy defects and spinous proces s resection L3-L5 levels. The conus medullaris remained stable in position ending at the T12-L1 disc space level. Small hemangioma involving L2 vertebra redemonstrated with larger hemangioma L1 vertebra less well seen on current study. No suspicious postcontrast enhancement.. Axial images at the T12-L1 levels show tiny right paracentral disc protrusion minimally effacing the anterolateral thecal sac image 36. Patent bilateral neural foramina. No significant change from prior . Axial images at L1-L2 level remain within normal limits. Axial images at L2-L3 level show artifact from surgical change. There is moderate broad disc bulge mi ldly effacing anterior thecal sac, there is moderate bilateral neural foraminal narrowing at this lev el identified. Mild/moderate facet arthropathies are present. Findings progressed from prior MRI. Axial images at L3-L4 level show artifact from surgical change. Spinal canal is preserved. Bilateral neural foramina are felt patent on axial image 18. No significant change from prior. Axial images at L4-L5 level demonstrate artifact from surgical change. Spinal canal is preserved wit h successful posterior decompression. Bilateral neural foramina are thought patent. Findings seen bes t on axial image 11. Axial images at L5-S1 level show moderate moderate facet degenerative changes bilaterally. Spinal can al is preserved. Left-sided neural foramina is patent. Artifact degradation at level of right-sided n eural foramina, mild narrowing is felt present. Posterior paraspinal muscles severe atrophy below level of surgery redemonstrated. IMPRESSION: Successful posterior decompression L3-L5 levels redemonstrated. Stable and satisfactory a lignment. Increasing degenerative change L2-L3 level and facet arthropathy L5-S1 level otherwise no s ignificant change from prior MRI.
== END | disposition home or self-care (01) ==
LOC: RADMRIMAIN 19:32
PROVIDERS: ATTEND Family Medicine
DX: M47.816 Spondylosis without myelopathy or radiculopathy, lumbar region (principal); M96.0 Pseudarthrosis after fusion or arthrodesis
CPT/HCPCS: 72158; A9585

== ENCOUNTER 2019-12-23 10:59 | Emergency (ER) | payer MEDICARE ==
[2019-12-23 11:14] VITALS: TEMP 97.9
[2019-12-23] MEDS ORDERED: PROMETHAZINE INJ 25 MG in SODIUM CHLORIDE 0.9% 50 ML IVPB STA (11:26)
[2019-12-23] MEDS ORDERED: KETOROLAC 15 MG/ML 1 ML VIAL IVP STA (11:26)
--- NOTE | 2019-12-23 11:31 | ED ---
General Adult HPI - General Chief complaint: Nausea/Vomiting/Diarrhea Stated complaint: Nausea/sob Time Seen by Provider: 12/23/19 11:10 Source: patient, RN notes reviewed, old records reviewed Mode of arrival: ambulatory Limitations: no limitations - History of Present Illness Initial comments: This is a 64-year-old male who presents emergency Department with a past medical history significant for opiate abuse and cyclic vomiting. Patient comes in t annita stating he started vomiting last night and having diarrhea. Patient states he can't keep anything down. Patient states he also is complaining of some right-sided rib pain and has his reflagz-ib-dib fell on him yesterday. Patient denies any shortness of breath but states that he has some difficulty breathing because it hurts take a deep breath because of the rib pain that he has. Patient denies any chest pain patient denies any recent fever chills or cough. Denies any swelling to legs or calf tenderness - Related Data Home Medications Medication Instructions Recorded Confirmed cloNIDine HCL [Clonidine HCl] 0.1 mg PO BID 11/16/15 12/23/19 Levothyroxine Sodium [Synthroid] 75 mcg PO DAILY 05/04/16 12/23/19 Omeprazole 20 mg PO DAILY 05/04/16 12/23/19 Nitroglycerin Sl Tabs [Nitrostat] 0.4 mg SL Q5M PRN 07/19/16 12/23/19 Escitalopram [Lexapro] 20 mg PO DAILY 12/16/16 12/23/19 amLODIPine [Norvasc] 5 mg PO DAILY 02/07/18 12/23/19 Albuterol Sulfate [Proair Hfa] 2 puff INHALATION RT-QID PRN 02/13/19 12/23/19 Clotrimazole/Betameth Cream 1 applic TOPICAL BID PRN 10/06/19 12/23/19 [Lotrisone] Previous Rx's Medication Instructions Recorded Aspirin EC [Ecotrin Low Dose] 81 mg PO DAILY #30 tablet. 06/19/19 Ticagrelor [Brilinta] 90 mg PO BID #60 tab 06/19/19 Promethazine [Phenergan] 25 mg PO Q6HR #10 tablet 12/23/19 Allergies Allergy/AdvReac Type Severity Reaction Status Date / Time rivaroxaban [From Xarelto] Allergy Severe Abdominal Verified 11/15/20 12:46 Pain Beta-Blockers Allergy Rash/Hives Verified 12/23/19 12:46 (Beta-Adrenergic Bloc paroxetine HCl [From Paxil] AdvReac Unknown Abdominal Verified 12/23/19 12:46 Pain apixaban [From Eliquis] AdvReac Abdominal Verified 12/23/19 12:46 Pain atorvastatin [From Lipitor] AdvReac Abdominal Verified 12/23/19 12:46 Pain gabapentin AdvReac Abdominal Verified 12/23/19 12:46 Pain warfarin AdvReac Abdominal Verified 12/23/19 12:46 Pain Review of Systems ROS Statement: Those systems with pertinent positive or pertinent negative responses have been documented in the HPI. ROS Other: All systems not noted in ROS Statement are negative. Past Medical History Past Medical History: Coronary Artery Disease (CAD), Chest Pain / Angina, GERD/ Reflux, GI Bleed, Hyperlipidemia, Hypertension, Myocardial Infarction ([place]), Musculoskeletal Disorder, Osteoarthritis (OA), Pneumonia, Renal Disease, Syncope, Thyroid Disorder Additional Past Medical History / Comment(s): Episodes of acute renal failure associated with dehydration, diverticulitis, IBS, return of hiatal hernia, bronchitis, hypothyroid, chronic low back pain with bilateral sciatica, lumbar DDD, past migraines, DJD, numbness tingling bilateral great toes/feet, 4 DVTs L leg surgically removed. Last Myocardial Infarction Date:: 06/2019 History of Any Multi-Drug Resistant Organisms: None Reported Past Surgical History: Back Surgery, Cholecystectomy, Heart Catheterization, Heart Catheterization With Stent, Hernia Repair, Orthopedic Surgery Additional Past Surgical History / Comment(s): Back fusions L3-L5, ORIF L ankle, L hand fracture with surgery, R knee arthroscopy x2, R elbow tendon release, R shoulder arthroscopy, lumbar spine cyst removed, pain clinic procedures, taylor fundoplication, EGD, colonoscopy, 2019 arteriogram/thrombus extraction at [facility]. Past Anesthesia/Blood Transfusion Reactions: No Reported Reaction Date of Last Stent Placement:: 2019 Past Psychological History: Depression Smoking Status: Never smoker Past Alcohol Use History: Occasional Past Drug Use History: Marijuana - Past Family History Mother Family Medical History: Thyroid Disorder Additional Family Medical History / Comment(s): Mother is living. Father Family Medical History: Coronary Artery Disease (CAD), Diabetes Mellitus Additional Family Medical History / Comment(s): Father had CABG. He at the age of 84 yrs in a MVA. Sister(s) Family Medical History: Cancer, Thyroid Disorder Additional Family Medical History / Comment(s): SKIN CA/ #2 sister had thyroid cancer General Exam - General Exam Comments Initial Comments: GENERAL: Patient is well-developed and well-nourished. Patient is nontoxic and well- hydrated and is in mild distress. Patient is dry heaving but there is no emesis ENT: Neck is soft and supple. No significant lymphadenopathy is noted. Oropharynx is clear. Moist mucous membranes. Neck has full range of motion without eliciting any pain. EYES: The sclera were anicteric and conjunctiva were pink and moist. Extraocular movements were intact and pupils were equal round and reactive to light. Eyelids were unremarkable. PULMONARY: Unlabored respirations. Good breath sounds bilaterally. No audible rales rhonchi or wheezing was noted. CARDIOVASCULAR: There is a regular rate and rhythm without any murmurs gallops or rubs. ABDOMEN: Soft and nontender with normal bowel sounds. SKIN: Skin is clear with no lesions or rashes and otherwise unremarkable. NEUROLOGIC: Patient is alert and oriented x3. Cranial nerves II through XII are grossly intact. Motor and sensory are also intact. Normal speech, volume and content. Symmetrical smile MUSCULOSKELETAL: Normal extremities with adequate strength and full range of motion. No lower extremity swelling or edema. No calf tenderness. LYMPHATICS: No significant lymphadenopathy is noted PSYCHIATRIC: Normal psychiatric evaluation. Limitations: no limitations Course Vital Signs 12/23/19 11:12 Temperature 97.9 F Pulse Rate 100 Respiratory 24 Rate Blood Pressure 157/104 O2 Sat by Pulse 99 Oximetry Medical Decision Making - Medical Decision Making EKG shows a sinus rhythm at 84 bpm ME interval is 218 QRS is 14 QT interval 42 QTC is 475 per patient's EKG shows no ST segment elevation or depression. Chest x-ray shows no acute abnormality. Patient received Phenergan in the emergency department was not vomiting on discharge. - Lab Data Result diagrams: 12/23/19 11:40 12/23/19 11:40 Lab Results 12/23/19 12/23/19 Range/Units 11:40 11:40 WBC 8.9 (3.8-10.6) k/uL RBC 5.51 (4.30-5.90) m/uL Hgb 16.8 (13.0-17.5) gm/dL Hct 47.4 (39.0-53.0) % MCV 86.1 (80.0-100.0) fL MCH 30.5 (25.0-35.0) pg MCHC 35.5 (31.0-37.0) g/dL RDW 13.3 (11.5-15.5) % Plt Count 304 (150-450) k/uL MPV 7.1 Neutrophils % 73 % Lymphocytes % 20 % Monocytes % 4 % Eosinophils % 1 % Basophils % 1 % Neutrophils # 6.5 (1.3-7.7) k/uL Lymphocytes # 1.8 (1.0-4.8) k/uL Monocytes # 0.4 (0-1.0) k/uL Eosinophils # 0.1 (0-0.7) k/uL Basophils # 0.1 (0-0.2) k/uL Sodium 142 (137-145) mmol/L Potassium 4.4 (3.5-5.1) mmol/L Chloride 107 (98-107) mmol/L Carbon Dioxide 19 L (22-30) mmol/L Anion Gap 16 mmol/L BUN 14 (9-20) mg/dL Creatinine 0.99 (0.66-1.25) mg/dL Est GFR (CKD-EPI)AfAm >90 (>60 ml/min/1.73 sqM) Est GFR (CKD-EPI)NonAf 80 (>60 ml/min/1.73 sqM) Glucose 124 H (74-99) mg/dL Calcium 11.1 H (8.4-10.2) mg/dL Total Bilirubin 1.1 (0.2-1.3) mg/dL AST 30 (17-59) U/L ALT 26 (4-49) U/L Alkaline Phosphatase 155 H (38-126) U/L Total Protein 8.8 H (6.3-8.2) g/dL Albumin 5.5 H (3.5-5.0) g/dL Disposition Clinical Impression: Gastroenteritis Disposition: HOME SELF-CARE Condition: Good Instructions (If sedation given, give patient instructions): Gastroenteritis (ED) Prescriptions: Promethazine [Phenergan] 25 mg PO Q6HR #10 tablet Is patient prescribed a controlled substance at d/c from ED?: No Referrals: Miki Nava DO [Primary Care Provider] - 1-2 days Time of Disposition: 12:49
[2019-12-23 11:48] LABS: Basophils # (A) 0.1 k/uL (0-0.2); Basophils % (A) 1 %; Eosinophils # (A) 0.1 k/uL (0-0.7); Eosinophils % (A) 1 %; HCT 47.4 % (39.0-53.0); HGB 16.8 gm/dL (13.0-17.5); Lymphocytes # (A) 1.8 k/uL (1.0-4.8); Lymphocytes % (A) 20 %; MCH 30.5 pg (25.0-35.0); MCHC 35.5 g/dL (31.0-37.0); MCV 86.1 fL (80.0-100.0); Mean Platelet Volume 7.1; Monocytes # (A) 0.4 k/uL (0-1.0); Monocytes % (A) 4 %; Neutrophils # (A) 6.5 k/uL (1.3-7.7); Neutrophils % (A) 73 %; Platelet Count 304 k/uL (150-450); RBC 5.51 m/uL (4.30-5.90); RDW 13.3 % (11.5-15.5); WBC 8.9 k/uL (3.8-10.6)
[2019-12-23 11:57] LABS: ALT 26 U/L (4-49); AST 30 U/L (17-59); African American GFR (CKD) >90 (>60 ml/min/1.73 sqM); Albumin 5.5 g/dL (3.5-5.0); Alkaline Phosphatase 155 U/L (38-126); Anion Gap 16 mmol/L; Blood Urea Nitrogen 14 mg/dL (9-20); Calcium 11.1 mg/dL (8.4-10.2); Carbon Dioxide 19 mmol/L (22-30); Chloride 107 mmol/L (98-107); Glucose 124 mg/dL (74-99); Non-African American GFR(CKD) 80 (>60 ml/min/1.73 sqM); Potassium 4.4 mmol/L (3.5-5.1); Sodium 142 mmol/L (137-145); Total Bilirubin 1.1 mg/dL (0.2-1.3); Total Protein 8.8 g/dL (6.3-8.2)
--- NOTE | 2019-12-23 12:14 | XR ---
EXAMINATION TYPE: XR chest 2V DATE OF EXAM: 12/23/2019 COMPARISON: 06/17/2019 HISTORY: Shortness of breath TECHNIQUE: Frontal and lateral views of the chest are obtained. FINDINGS: Scattered senescent parenchymal changes noted. Hyperinflation compatible with COPD. No evidence for infiltrate. No evidence for atelectasis. Heart size is stable. Mediastinal structures are stable and grossly unremarkable. No evidence for hilar prominence. Degenerative changes dorsal spine. IMPRESSION: 1. No evidence for acute pulmonary disease.
[2019-12-23 13:03] VITALS: BP 160/92; PULSE 83; RESP 18
== END 2019-12-23 13:10 | disposition home or self-care (01) ==
LOC: EC 10:59
DX: K52.9 Noninfective gastroenteritis and colitis, unspecified (principal); R07.81 Pleurodynia; F32.9 Major depressive disorder, single episode, unspecified; E03.9 Hypothyroidism, unspecified; K21.9 Gastro-esophageal reflux disease without esophagitis; I10 Essential (primary) hypertension; Z79.890 Hormone replacement therapy; Z79.899 Other long term (current) drug therapy; Z95.5 Presence of coronary angioplasty implant and graft; Z98.1 Arthrodesis status; Z88.8 Allergy status to other drugs, medicaments and biological substances
CPT/HCPCS: 36415; 93005; 80053; 85025; 71046; 99285; 96365; 96375; J2550; J1885

== ENCOUNTER 2020-03-31 21:37 | Emergency (ER) | payer MEDICARE ==
[2020-03-31 21:43] VITALS: TEMP 97.7
[2020-03-31] MEDS ORDERED: MORPHINE SULFATE 4 MG/ML SYRINGE IV STA (22:06)
[2020-03-31] MEDS ORDERED: ASPIRIN 81 MG PO STA (22:06)
[2020-03-31] MEDS ORDERED: ONDANSETRON 4 MG/2 ML VIAL IVP STA (22:06)
[2020-03-31 22:22] LABS: Basophils % (A) 1 %; Eosinophils # (A) 0.2 k/uL (0-0.7); Eosinophils % (A) 3 %; HCT 41.4 % (39.0-53.0); HGB 14.6 gm/dL (13.0-17.5); Lymphocytes # (A) 2.2 k/uL (1.0-4.8); Lymphocytes % (A) 32 %; MCH 30.5 pg (25.0-35.0); MCHC 35.4 g/dL (31.0-37.0); MCV 86.1 fL (80.0-100.0); Mean Platelet Volume 7.3; Monocytes # (A) 0.4 k/uL (0-1.0); Monocytes % (A) 6 %; Neutrophils # (A) 3.8 k/uL (1.3-7.7); Neutrophils % (A) 57 %; Platelet Count 242 k/uL (150-450); RDW 13.7 % (11.5-15.5); WBC 6.8 k/uL (3.8-10.6)
[2020-03-31 22:29] LABS: ALT 29 U/L (4-49); AST 30 U/L (17-59); African American GFR (CKD) >90 (>60 ml/min/1.73 sqM); Albumin 4.4 g/dL (3.5-5.0); Alkaline Phosphatase 109 U/L (38-126); Anion Gap 12 mmol/L; Blood Urea Nitrogen 18 mg/dL (9-20); Calcium 9.3 mg/dL (8.4-10.2); Carbon Dioxide 20 mmol/L (22-30); Chloride 103 mmol/L (98-107); Glucose 132 mg/dL (74-99); Lipase 214 U/L (23-300); Magnesium 1.9 mg/dL (1.6-2.3); Non-African American GFR(CKD) 80 (>60 ml/min/1.73 sqM); Potassium 3.7 mmol/L (3.5-5.1); Sodium 135 mmol/L (137-145); Total Bilirubin 0.4 mg/dL (0.2-1.3)
[2020-03-31 22:38] LABS: INR 0.9 (<1.2); Partial Thromboplastin Time 22.3 sec (22.0-30.0)
--- NOTE | 2020-03-31 22:48 | XR ---
EXAMINATION TYPE: XR chest 2V DATE OF EXAM: 03/31/2020 COMPARISON: 12/23/2019 HISTORY: Short of breath. Chest pain TECHNIQUE: FINDINGS: There is a 3 cm infiltrate at the lateral left lung base. The other lung lora are clear. Heart size is normal. There is no heart failure. There are chest leads. There are no hilar masses. Th e bony thorax is intact. IMPRESSION: There is new airspace infiltrate and pleural reaction at the lateral left lung base ryley red to old exam. Normal heart.
[2020-03-31] MEDS ORDERED: IPRATROPIUM-ALBUTEROL 3 ML NEB INHALATION STA (23:04)
--- NOTE | 2020-04-01 01:50 | ED ---
General Adult HPI - General Chief complaint: Chest Pain Stated complaint: Chest Pain Time Seen by Provider: 03/31/20 21:54 Source: patient Mode of arrival: wheelchair Limitations: no limitations - History of Present Illness Initial comments: 64 year-old male patient presents to the emergency department for evaluation of left-sided chest pain that started about an hour prior to arrival. Patient states he is having radiation down the left arm. States he feels mildly short of breath. States he does have a chronic cough. Denies history of cigarette u se. States he smokes marijuana daily. Denies any fevers or chills. Denies any nausea or vomiting. Denies sweats. Denies taking anything for his symptoms prior to coming in. Does have a history of coronary artery disease and has 3 stents. Last was put in in June 2019. Patient denies any recent rash, abdominal pain, diarrhea, constipation, back pain, numbness, tingling, dizziness, weakness, hematuria, dysuria, urinary urgency, urinary frequency, headache, visual changes, or any other complaints. - Related Data Home Medications Medication Instructions Recorded Confirmed cloNIDine HCL [Clonidine HCl] 0.1 mg PO BID 11/16/15 12/23/19 Levothyroxine Sodium [Synthroid] 75 mcg PO DAILY 05/04/16 12/23/19 Omeprazole 20 mg PO DAILY 05/04/16 12/23/19 Nitroglycerin Sl Tabs [Nitrostat] 0.4 mg SL Q5M PRN 07/19/16 12/23/19 Escitalopram [Lexapro] 20 mg PO DAILY 12/16/16 12/23/19 amLODIPine [Norvasc] 5 mg PO DAILY 02/07/18 12/23/19 Albuterol Sulfate [Proair Hfa] 2 puff INHALATION RT-QID PRN 02/13/19 12/23/19 Clotrimazole/Betameth Cream 1 applic TOPICAL BID PRN 10/06/19 12/23/19 [Lotrisone] Previous Rx's Medication Instructions Recorded Aspirin EC [Ecotrin Low Dose] 81 mg PO DAILY #30 tablet. 06/19/19 Ticagrelor [Brilinta] 90 mg PO BID #60 tab 06/19/19 Promethazine [Phenergan] 25 mg PO Q6HR #10 tablet 12/23/19 Azithromycin [Zithromax Z-pack (6 0 mg PO DIRECTED #6 tab 04/01/20 tabs)] Allergies Allergy/AdvReac Type Severity Reaction Status Date / Time rivaroxaban [From Xarelto] Allergy Severe Abdominal Verified 03/31/20 21:43 Pain Beta-Blockers Allergy Rash/Hives Verified 03/31/20 21:43 (Beta-Adrenergic Bloc paroxetine HCl [From Paxil] AdvReac Unknown Abdominal Verified 03/31/20 21:43 Pain apixaban [From Eliquis] AdvReac Abdominal Verified 03/31/20 21:43 Pain atorvastatin [From Lipitor] AdvReac Abdominal Verified 03/31/20 21:43 Pain gabapentin AdvReac Abdominal Verified 03/31/20 21:43 Pain warfarin AdvReac Abdominal Verified 03/31/20 21:43 Pain Review of Systems ROS Statement: Those systems with pertinent positive or pertinent negative responses have been documented in the HPI. ROS Other: All systems not noted in ROS Statement are negative. Past Medical History Past Medical History: Coronary Artery Disease (CAD), Chest Pain / Angina, GERD/Reflux, GI Bleed, Hyperlipidemia, Hypertension, Myocardial Infarction ([place]), Musculoskeletal Disorder, Osteoarthritis (OA), Pneumonia, Renal Disease, Syncope, Thyroid Disorder Additional Past Medical History / Comment(s): Episodes of acute renal failure associated with dehydration, diverticulitis, IBS, return of hiatal hernia, bronchitis, hypothyroid, chronic low back pain with bilateral sciatica, lumbar DDD, past migraines, DJD, numbness tingling bilateral great toes/feet, 4 DVTs L leg surgically removed. Last Myocardial Infarction Date:: 06/2019 History of Any Multi-Drug Resistant Organisms: None Reported Past Surgical History: Back Surgery, Cholecystectomy, Heart Catheterization, Heart Catheterization With Stent, Hernia Repair, Orthopedic Surgery Additional Past Surgical History / Comment(s): Back fusions L3-L5, ORIF L ankle, L hand fracture with surgery, R knee arthroscopy x2, R elbow tendon release, R shoulder arthroscopy, lumbar spine cyst removed, pain clinic procedures, taylor fundoplication, EGD, colonoscopy, 2019 arteriogram/thrombus extraction at [facility]. Past Anesthesia/Blood Transfusion Reactions: No Reported Reaction Date of Last Stent Placement:: 2019 Past Psychological History: Depression Smoking Status: Never smoker Past Alcohol Use History: Occasional Past Drug Use History: Marijuana - Past Family History Mother Family Medical History: Thyroid Disorder Additional Family Medical History / Comment(s): Mother is living. Father Family Medical History: Coronary Artery Disease (CAD), Diabetes Mellitus Additional Family Medical History / Comment(s): Father had CABG. He at the age of 84 yrs in a MVA. Sister(s) Family Medical History: Cancer, Thyroid Disorder Additional Family Medical History / Comment(s): SKIN CA/ #2 sister had thyroid cancer General Exam Limitations: no limitations General appearance: alert, in no apparent distress, other (This is a well developed, well nourished adult male patient in no acute distress. Vital signs upon presentation are temperature 97.7F, pulse 74, respirations 20, blood pressure 161/95, pulse ox 98% on room air.) Eye exam: Present: normal appearance, PERRL, EOMI. Absent: scleral icterus, conjunctival injection, periorbital swelling ENT exam: Present: normal exam, normal oropharynx, mucous membranes moist Respiratory exam: Present: wheezes (Expiratory to the posterior lung lora). Absent: normal lung sounds bilaterally, respiratory distress, rales, rhonchi, stridor Cardiovascular Exam: Present: regular rate, normal rhythm, normal heart sounds. Absent: systolic murmur, diastolic murmur, rubs, gallop, clicks GI/Abdominal exam: Present: soft, normal bowel sounds. Absent: distended, tenderness, guarding, rebound, rigid Neurological exam: Present: alert, oriented X3, CN II-XII intact Psychiatric exam: Present: normal affect, normal mood Skin exam: Present: warm, dry, intact, normal color. 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 No evidence of ST elevation or depression. Medical Decision Making - Medical Decision Making 64-year-old male patient presented to the emergency department today for evaluation of left-sided chest pain radiation down the left arm. Did report some mild shortness of breath. Physical examination revealed bilateral expiratory wheezing. Labs reviewed and were unremarkable. Troponin negative. Chest x-ray showed left lower lobe pneumonia. We did obtain a second troponin was also negative. Patient was given a breathing treatment. Upon reevaluation is resting comfortably in bed. He will be treated for pneumonia with azithromycin. He is discharged to follow-up with his primary care physician for recheck in 1-2 days. Return parameters discussed in detail. He verbalizes understanding and agrees with this plan. Case discussed with my attending Dr. Omar beltre. - Lab Data Result diagrams: 03/31/20 22:08 03/31/20 22:08 Lab Results 03/31/20 03/31/20 03/31/20 Range/Units 22:08 22:08 22:08 WBC 6.8 (3.8-10.6) k/uL RBC 4.80 (4.30-5.90) m/uL Hgb 14.6 (13.0-17.5) gm/dL Hct 41.4 (39.0-53.0) % MCV 86.1 (80.0-100.0) fL MCH 30.5 (25.0-35.0) pg MCHC 35.4 (31.0-37.0) g/dL RDW 13.7 (11.5-15.5) % Plt Count 242 (150-450) k/uL MPV 7.3 Neutrophils % 57 % Lymphocytes % 32 % Monocytes % 6 % Eosinophils % 3 % Basophils % 1 % Neutrophils # 3.8 (1.3-7.7) k/uL Lymphocytes # 2.2 (1.0-4.8) k/uL Monocytes # 0.4 (0-1.0) k/uL Eosinophils # 0.2 (0-0.7) k/uL Basophils # 0.0 (0-0.2) k/uL PT 10.0 (9.0-12.0) sec INR 0.9 (<1.2) APTT 22.3 (22.0-30.0) sec Sodium 135 L (137-145) mmol/L Potassium 3.7 (3.5-5.1) mmol/L Chloride 103 (98-107) mmol/L Carbon Dioxide 20 L (22-30) mmol/L Anion Gap 12 mmol/L BUN 18 (9-20) mg/dL Creatinine 0.99 (0.66-1.25) mg/dL Est GFR (CKD-EPI)AfAm >90 (>60 ml/min/1.73 sqM) Est GFR (CKD-EPI)NonAf 80 (>60 ml/min/1.73 sqM) Glucose 132 H (74-99) mg/dL Calcium 9.3 (8.4-10.2) mg/dL Magnesium 1.9 (1.6-2.3) mg/dL Total Bilirubin 0.4 (0.2-1.3) mg/dL AST 30 (17-59) U/L ALT 29 (4-49) U/L Alkaline Phosphatase 109 (38-126) U/L Troponin I (0.000-0.034) ng/mL Total Protein 7.0 (6.3-8.2) g/dL Albumin 4.4 (3.5-5.0) g/dL Lipase 214 (23-300) U/L 03/31/20 04/01/20 Range/Units 22:08 01:24 WBC (3.8-10.6) k/uL RBC (4.30-5.90) m/uL Hgb (13.0-17.5) gm/dL Hct (39.0-53.0) % MCV (80.0-100.0) fL MCH (25.0-35.0) pg MCHC (31.0-37.0) g/dL RDW (11.5-15.5) % Plt Count (150-450) k/uL MPV Neutrophils % % Lymphocytes % % Monocytes % % Eosinophils % % Basophils % % Neutrophils # (1.3-7.7) k/uL Lymphocytes # (1.0-4.8) k/uL Monocytes # (0-1.0) k/uL Eosinophils # (0-0.7) k/uL Basophils # (0-0.2) k/uL PT (9.0-12.0) sec INR (<1.2) APTT (22.0-30.0) sec Sodium (137-145) mmol/L Potassium (3.5-5.1) mmol/L Chloride (98-107) mmol/L Carbon Dioxide (22-30) mmol/L Anion Gap mmol/L BUN (9-20) mg/dL Creatinine (0.66-1.25) mg/dL Est GFR (CKD-EPI)AfAm (>60 ml/min/1.73 sqM) Est GFR (CKD-EPI)NonAf (>60 ml/min/1.73 sqM) Glucose (74-99) mg/dL Calcium (8.4-10.2) mg/dL Magnesium (1.6-2.3) mg/dL Total Bilirubin (0.2-1.3) mg/dL AST (17-59) U/L ALT (4-49) U/L Alkaline Phosphatase (38-126) U/L Troponin I <0.012 <0.012 (0.000-0.034) ng/mL Total Protein (6.3-8.2) g/dL Albumin (3.5-5.0) g/dL Lipase (23-300) U/L - Radiology Data Radiology results: report reviewed, image reviewed Two-view x-ray of the chest is obtained. Report was reviewed in its entirety. Impression by Dr. Sandhu shows new airspace infiltrate and pleural reaction at the left lateral lung base compared to old exam. Normal heart Disposition Clinical Impression: Pneumonia involving left lung, Chest pain Disposition: HOME SELF-CARE Condition: Good Instructions (If sedation given, give patient instructions): Chest Pain (ED), Pneumonia (ED) Additional Instructions: Take medications as directed. Follow-up with her primary care physician for recheck in 1-2 days. Return to the emergency department for any new, worsening, or concerning symptoms. Prescriptions: Azithromycin [Zithromax Z-pack (6 tabs)] 0 mg PO DIRECTED #6 tab Is patient prescribed a controlled substance at d/c from ED?: No Referrals: Miki Nava DO [Primary Care Provider] - 1-2 days Time of Disposition: 02:17
[2020-04-01] MEDS ORDERED: AZITHROMYCIN 500 MG TAB PO STA (02:15)
[2020-04-01] MEDS ORDERED: HYDROmorphone 1 MG/ML 1 ML SYRINGE IVP STA (02:26)
[2020-04-01 02:32] VITALS: BP 144/85; PULSE 67; RESP 18
== END 2020-04-01 03:12 | disposition home or self-care (01) ==
LOC: EC 21:37
DX: J18.9 Pneumonia, unspecified organism (principal); F32.9 Major depressive disorder, single episode, unspecified; I25.119 Atherosclerotic heart disease of native coronary artery with unspecified angina pectoris; K21.9 Gastro-esophageal reflux disease without esophagitis; E78.5 Hyperlipidemia, unspecified; I10 Essential (primary) hypertension; I25.2 Old myocardial infarction; M19.90 Unspecified osteoarthritis, unspecified site; E07.9 Disorder of thyroid, unspecified; E03.9 Hypothyroidism, unspecified; K58.9 Irritable bowel syndrome, unspecified; G89.29 Other chronic pain; M54.5 Low back pain; F12.90 Cannabis use, unspecified, uncomplicated; Z79.890 Hormone replacement therapy; Z79.51 Long term (current) use of inhaled steroids; Z88.8 Allergy status to other drugs, medicaments and biological substances; Z87.19 Personal history of other diseases of the digestive system; Z79.899 Other long term (current) drug therapy; Z95.5 Presence of coronary angioplasty implant and graft; Z90.49 Acquired absence of other specified parts of digestive tract
CPT/HCPCS: 36415; 94640; 93005; 80053; 83690; 83735; 84484 ×2; 85025; 85610; 85730; 71046; 99285; 96374; 96375 ×2; J2270; J2405; J1170

== ENCOUNTER → 2020-04-09 | Outpatient (CLI) | payer MEDICARE ==
--- NOTE | 2020-04-09 14:23 | XR ---
EXAMINATION TYPE: XR chest 2V DATE OF EXAM: 04/09/2020 COMPARISON: Prior chest x-ray 03/31/2020 HISTORY: Pneumonia, coronary artery disease TECHNIQUE: Frontal and lateral views of the chest are obtained. FINDINGS: There is no focal air space opacity, pleural effusion, or pneumothorax seen. The cardiac silhouette size is stable. Aorta is dense. The osseous structures are intact, there is thoracic spon dylosis. IMPRESSION: No acute cardiopulmonary process.
== END ==
LOC: RADXRMAIN 12:05
PROVIDERS: ATTEND Family Medicine
DX: J18.9 Pneumonia, unspecified organism (principal)
CPT/HCPCS: 71046

== ENCOUNTER → 2020-05-28 | Outpatient (CLI) | payer MEDICARE ==
[2020-05-28 13:24] VITALS: BP 133/83; PULSE 86; RESP 16; TEMP 97.4
--- NOTE | 2020-05-28 15:15 | P.PAINPG ---
Subjective Progress Note Date: 05/28/20 This is 65 years old male, with a history of severe and chronic low back pain, patient was seen in our pain clinic 2 years ago we did RFA of the medial branch lumbar area at L2 3 L3 4 and L5-S1, patient had excellent pain relief, from more than one year, and then later on he started having severe low back pain and the pain is constant and increases with any activity interfere with the quality of life, patient denies any motor or sensory deficit he denies any fever or night sweats and there is no change in the bowel movement or urination. Objective - Vital Signs Vital signs: Vital Signs Temp 97.4 F L 05/28/20 13:21 Pulse 86 05/28/20 13:21 Resp 16 05/28/20 13:21 BP 133/83 05/28/20 13:21 Pulse Ox 98 05/28/20 13:21 - Exam Physical Examinations : -Constitutiona : Cooperative , not in acute distress . -HEENT : nech : supple , no Lymphadenopathy , normal thyroid size . : eyes : no ptosis , no icterus, no photophobia . - neurologic : Cranial nerve II to XII intact , no focal neurological deffecit . -psychatric : alert , oriented X 3 , appropriate affect , intact judgment and insight . -Lymphatic : no Lymphadenopathy . - musculoskeltal : Lumber spine moter stegnth lower extremities ,thigh and legs 5/5 Right side , 5/5 Left side deep tendon reflexes : normal Knee Jerk , normal ankle Jerk lumber facet Loading Test =positive Right , positive Left Range of motion of the lumbar spine Flexion 30 degrees, extension 10 degrees strait leg raising test = negative bilaterally Fabere test= negative bilaterally Sever tenderness over the Sacroiliac joint on the Right , and Left sides Gaenslen test= positive right ,and positive left . Seated flexion test= positive right ,and positive Left . Distraction test= positive bilaterally Assessment and Plan Plan: Assessment and plan=1-lumbar spondylosis with lumbar facet arthropathy without myelopathy. 2-bilateral sacroiliitis. 3-history of lumbar fusion surgery. Patient could benefit from repeat RFA of the medial branch lumbar area at L3 4 and L5-S1 (patient had fusion at L4 5 ) In the future if patient continues to have pain after the RFA would consider doing bilateral sacroiliac joint steroid injection Time with Patient: Greater than 30 PQRS Measure Charge Sheet Measure #130: Documentation of Current Meds in Medical Chart: Patient's medications documented in chart Measure #226: Tobacco Use: Screen & Cessation Intervention: Pt not a tobacco user Measure #111: Pneumonia Vaccination: Pneumococcal vaccine NOT administered or previously given Measure #47: Advance Care Plan: Advance care planning discussed & documented, pt chose/unable to give Measure #412: Opioid Treatment Agreement: No documentation of signed opioid treatment agreement Measure #408: Opioid Therapy Follow-up Evaluation: Patient had NO f/u eval minimum every 3 months during opioid therapy Measure #317: Preventitive Care & Scrn High Bld Press & F/U: Normal blood pressure, f/u not required Measure #128: Body Mass Index (BMI) Screening & Follow-up: BMI documented ABOVE normal parameters - f/u documented Measure #131: Pain Assessment & Follow-up: Pain positive & plan documented, Follow-up scheduled Measure #431: Unhealthy Alcohol Use Preventative Care & Scrn: Patient not identified as an unhealthy alcohol user PQRS Narrative: Smoking Status Former smoker Narcotic Agreement Date Signed 12/25/14 Blood Pressure 133/83 Pain Intensity [Back] 3 Scale Used Numeric (1 - 10) Home Medications: Ambulatory Orders cloNIDine HCL 0.1 mg PO BID 11/16/15 Levothyroxine Sodium [Synthroid] 75 mcg PO DAILY 05/04/16 Omeprazole 20 mg PO DAILY 05/04/16 Nitroglycerin Sl Tabs [Nitrostat] 0.4 mg SL Q5M PRN 07/19/16 Escitalopram [Lexapro] 20 mg PO DAILY 12/16/16 amLODIPine [Norvasc] 5 mg PO DAILY 02/07/18 Albuterol Sulfate [Proair Hfa] 2 puff INHALATION RT-QID PRN 02/13/19 Aspirin EC [Ecotrin Low Dose] 81 mg PO DAILY #30 tablet. 06/19/19 Ticagrelor [Brilinta] 90 mg PO BID #60 tab 06/19/19 Clotrimazole/Betameth Cream [Lotrisone] 1 applic TOPICAL BID PRN 10/06/19 Promethazine [Phenergan] 25 mg PO Q6HR #10 tablet 12/23/19 Controlled Substance Measures - Controlled Substance Measures Is patient prescribed a controlled substance at discharge?: No
== END ==
LOC: PNWHC3 13:05
PROVIDERS: ATTEND Specialist
DX: M47.816 Spondylosis without myelopathy or radiculopathy, lumbar region (principal); M46.1 Sacroiliitis, not elsewhere classified; M96.1 Postlaminectomy syndrome, not elsewhere classified; Z87.891 Personal history of nicotine dependence
CPT/HCPCS: 99211

== ENCOUNTER 2020-06-27 12:22 | Day surgery (SDC) | payer MEDICARE ==
[2020-06-25 11:33] VITALS: BMI 31.4
[~2020-06-27 12:22] MED LIST changes: -DEXAMETHASONE SOD PHOSPHATE 10 MG/ML 1 ML VIAL IV ONE; -HYDROmorphone 0.5 MG/0.5 ML SYRINGE IVP PRN; -LIDOCAINE 1% (10MG/ML) FOR IV START INTRADERMA PRN; -MIDAZOLAM 2 MG/2 ML VIAL IV PRN; -ONDANSETRON 4 MG/2 ML VIAL IVP ONE; -fentaNYL (PF) 50 MCG/ML 2 ML AMP IVP PRN
[2020-06-27 13:16] VITALS: TEMP 97.5
[2020-06-27] MEDS ORDERED: MIDAZOLAM 2 MG/2 ML VIAL ONE (13:45)
[2020-06-27] MEDS ORDERED: fentaNYL (PF) 50 MCG/ML 2 ML AMP ONE (13:45)
[2020-06-27] MEDS ORDERED: TRIAMCINOLONE ACETONIDE 40 MG/ML 1 ML VIAL ONE (13:45)
[2020-06-27] MEDS ORDERED: ROPIVACAINE 5MG/ML 20ML VIAL ONE (13:45)
[2020-06-27] MEDS ORDERED: LACTATED RINGERS 450 ML IV ONE (14:30)
--- NOTE | 2020-06-27 14:31 | P.PCN ---
Date of Procedure: 06/27/20 Procedure(s) Performed: PREOPERATIVE DIAGNOSIS: 1-Lumbar Spondylosis with Facet Arthropathy without myelopathy. POSTOPERATIVE DIAGNOSIS: 1- Lumbar Spondylosis with Facet Arthropathy without myelopathy. PROCEDURES : Bilateral Radiofrequency thermocoagulation L2 , L3 , and L5 medial branch, with fluoroscopic guidance (fluoroscopy images available in the radiology department) ( to denervate the facet joint at L3-4 ,and L5-S1 levels ). ANESTHESIA: Monitored anesthesia care as per anesthesia department. EBL: Minimal PROCEDURE INDICATION: The patient with low back pain secondary to lumbar facet arthropathy who had more than 50% relief of her pain with previous diagnostic lumbar medial branch block with bupivacaine. PROCEDURE DESCRIPTION / TECHNIQUE: The patient was seen and identified in the preoperative area. Risks, benefits, complications, including but not limited to risk of infection ,bleeding , allergic reactions to the medications and no complete pain releife , and alternatives were discussed with the patient, the patient agreed to proceed with the procedure and signed the consent. IV was started. Vital signs remained stable throughout the procedure. Patient was taken to the OR and time out was completed. The patient was placed in the prone position on the procedure table. The lumber area was prepped and draped in the usual sterile fashion. . Vital signs were closely monitored during the procedure .IV sedation was used during the procedure to decrease patients anxiety. Using AP and then oblique fluoroscopy, the ``eye of the Saroj dog corresponding to the connection between the superior and transverse articular processes of right L2 ,L3, L5, were identified, marked, and localized with 1% lidocaine. Subsequently, a 18 [id number] ( VENUM ) radiofrequency cannula with a 10-mm active tip was advanced guided by fluoroscopy to each of the``eyes of the Saroj dog at right L2 , L3, and L5. Each site then underwent sensory testing at 50 Hz and 0 to 1 volt and motor testing at 2.5 Hz and 0 to 3 volt with local stimulation, but no radicular symptoms down the legs. Thereafter each sites underwent radiofrequency thermocoagulation at 80 degrees celsius for 90 seconds after injecting 0.5 ml of PF Ropivacaine 1ml, then after the thermocoagulation done , 1 ml of the block solution containing Kenalog 20 mg and 3 ml of Ropivacaine 0.5% was injected at the right L2 , L3 , and L5 , levels after negative aspiration of CSF and blood and with no paresthesias. Cannulas were retracted while injecting lidocaine 1% until the needle is out. The same procedure was repeated at the level of Left L2, L3, and L5 levels. At the end of the procedure, the skin was cleansed and bandages were applied. COMPLICATIONS: No acute complications. note = patient had fusion at L4 5 and L5-S1, and the procedure was done above and below the fusion DISPOSITION / PLANS: The patient was placed in a supine position and transferred to the recovery area in a stable condition for observation and was discharged from the recovery room after meeting discharge criteria. Home discharge instructions given to the patient by the staff. The patient was reexamined prior to discharge. The patient will schedule a follow up in the clinic in 2-4 weeks.
[2020-06-27 14:34] VITALS: RESP 16
[2020-06-27 14:46] VITALS: BP 135/82; PULSE 67
--- NOTE | 2020-06-27 15:25 | FL ---
Fluoroscopy HISTORY: Pain 23 seconds fluoroscopy time supplied to the referring clinician. 12 intraoperative C-arm images docu ment the procedure. See dictated report from anesthesia.
== END 2020-06-27 14:56 | disposition home or self-care (01) ==
LOC: ORPAIN 12:22
PROVIDERS: ATTEND Specialist
DX: M47.816 Spondylosis without myelopathy or radiculopathy, lumbar region (principal); I25.10 Atherosclerotic heart disease of native coronary artery without angina pectoris; I10 Essential (primary) hypertension; E03.9 Hypothyroidism, unspecified; K21.9 Gastro-esophageal reflux disease without esophagitis; E78.5 Hyperlipidemia, unspecified; I25.2 Old myocardial infarction; Z79.02 Long term (current) use of antithrombotics/antiplatelets; Z79.890 Hormone replacement therapy; Z79.899 Other long term (current) drug therapy; Z88.8 Allergy status to other drugs, medicaments and biological substances
CPT/HCPCS: 64635; 64636; J2250; J3301; J3010; J2795

== ENCOUNTER → 2020-07-23 | Outpatient (CLI) | payer MEDICARE ==
[2020-07-23 12:27] VITALS: BP 157/82; PULSE 83; RESP 16; TEMP 97.7
--- NOTE | 2020-07-23 12:49 | P.PN ---
Subjective Progress Note Date: 07/23/20 This is 65 years old male, with a history of severe and chronic low back pain, recently we did RFA of the medial branch lumbar area at L2 3 L3 4 and L5-S1, patient had excellent pain relief, patient had only pain localized in the left buttock area, with radiation to the posterior aspect of the left side, low back pain improved more than 90%, patient denies any motor or sensory deficit he denies any fever or night sweats and there is no change in the bowel movement or urination. Physical Examinations : -Constitutiona : Cooperative , not in acute distress . -HEENT : nech : supple , no Lymphadenopathy , normal thyroid size . : eyes : no ptosis , no icterus, no photophobia . - neurologic : Cranial nerve II to XII intact , no focal neurological deffecit . -psychatric : alert , oriented X 3 , appropriate affect , intact judgment and insight . -Lymphatic : no Lymphadenopathy . - musculoskeltal : Lumber spine moter stegnth lower extremities ,thigh and legs 5/5 Right side , 5/5 Left side deep tendon reflexes : normal Knee Jerk , normal ankle Jerk lumber facet Loading Test =positive Right , positive Left Range of motion of the lumbar spine Flexion 30 degrees, extension 10 degrees strait leg raising test = negative bilaterally Fabere test= negative bilaterally Sever tenderness over the Sacroiliac joint on the Left sides Gaenslen test= positive left . Seated flexion test= positive Left . Distraction test= positive left Assessment and Plan Plan: Assessment and plan=1-lumbar spondylosis with lumbar facet arthropathy without myelopathy. 2-bilateral sacroiliitis. 3-history of lumbar fusion surgery. Low back pain improved significantly after RFA of the medial branch lumbar area patient had pain mostly from the left sacroiliitis, he could benefit from Voltaren gel to be applied to the left buttock twice daily Patient will follow up in the pain clinic when necessary PQRS Measure Charge Sheet Measure #130: Documentation of Current Meds in Medical Chart: Patient's medications documented in chart Measure #226: Tobacco Use: Screen & Cessation Intervention: Pt not a tobacco user Measure #111: Pneumonia Vaccination: Pneumococcal vaccine NOT administered or previously given Measure #47: Advance Care Plan: Advance care planning discussed & documented, pt chose/unable to give Measure #412: Opioid Treatment Agreement: No documentation of signed opioid treatment agreement Measure #408: Opioid Therapy Follow-up Evaluation: Patient had NO f/u eval minimum every 3 months during opioid therapy Measure #317: Preventitive Care & Scrn High Bld Press & F/U: elevated blood pressure, 157/82 f/u with PCP Measure #128: Body Mass Index (BMI) Screening & Follow-up: BMI documented ABOVE normal parameters - f/u documented Measure #131: Pain Assessment & Follow-up: Pain positive & plan documented, Follow-up scheduled Measure #431: Unhealthy Alcohol Use Preventative Care & Scrn: Patient not identified Objective - Vital Signs Vital signs: Vital Signs Temp 97.7 F 07/23/20 12:24 Pulse 83 07/23/20 12:24 Resp 16 07/23/20 12:24 BP 157/82 07/23/20 12:24 Pulse Ox 98 07/23/20 12:24
== END ==
LOC: PNWHC3 12:15
PROVIDERS: ATTEND Specialist
DX: M47.816 Spondylosis without myelopathy or radiculopathy, lumbar region (principal); M46.1 Sacroiliitis, not elsewhere classified; Z98.1 Arthrodesis status; Z88.6 Allergy status to analgesic agent; Z88.8 Allergy status to other drugs, medicaments and biological substances; Z87.891 Personal history of nicotine dependence
CPT/HCPCS: 99211

== ENCOUNTER 2020-07-31 11:49 | Emergency (ER) | payer MEDICARE ==
[2020-07-31 12:05] VITALS: BP 141/94; PULSE 86; RESP 20; TEMP 98
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
== END 2020-07-31 12:35 | disposition home or self-care (01) ==
LOC: EC 11:49
DX: S76.311A Strain of muscle, fascia and tendon of the posterior muscle group at thigh level, right thigh, initial encounter (principal); S80.11XA Contusion of right lower leg, initial encounter; I25.10 Atherosclerotic heart disease of native coronary artery without angina pectoris; E78.5 Hyperlipidemia, unspecified; I10 Essential (primary) hypertension; I25.2 Old myocardial infarction; M19.90 Unspecified osteoarthritis, unspecified site; E07.9 Disorder of thyroid, unspecified; K21.9 Gastro-esophageal reflux disease without esophagitis; F32.9 Major depressive disorder, single episode, unspecified; Z90.49 Acquired absence of other specified parts of digestive tract; Z95.5 Presence of coronary angioplasty implant and graft; Z87.891 Personal history of nicotine dependence; F12.90 Cannabis use, unspecified, uncomplicated; Z79.82 Long term (current) use of aspirin; Z86.718 Personal history of other venous thrombosis and embolism; Y04.0XXA Assault by unarmed brawl or fight, initial encounter
CPT/HCPCS: 99283

== ENCOUNTER 2020-10-07 21:36 | Observation (INO) | payer MEDICARE ==
[2020-10-07] MEDS ORDERED: SODIUM CHLORIDE 0.9% 500 ML 500 ML IV STA (22:07)
[2020-10-07] MEDS ORDERED: SODIUM CHLORIDE 0.9% 1,000 ML IV STA (22:07)
[2020-10-07] MEDS ORDERED: ONDANSETRON 4 MG/2 ML VIAL IVP STA (22:07)
[2020-10-07] MEDS ORDERED: LORazepam 2 MG/ML INJ IV STA (22:37)
[2020-10-07] MEDS ORDERED: HYDROmorphone 1 MG/ML 1 ML SYRINGE IVP STA (22:37)
[2020-10-07] MEDS ORDERED: diphenhydrAMINE 50 MG/ML 1 ML VIAL IVP STA (22:37)
--- NOTE | 2020-10-07 22:38 | ED ---
Nausea/Vomiting/Diarrhea HPI - General Chief complaint: Nausea/Vomiting/Diarrhea Stated complaint: Vomiting Time Seen by Provider: 10/07/20 21:39 Source: patient, RN notes reviewed, old records reviewed Mode of arrival: ambulatory Limitations: no limitations - History of Present Illness Initial comments: This is a 65-year-old male to the emergency department today for evaluation of acute on chronic abdominal pain with acute on chronic nausea and vomiting. Patient is known to facility for similar events. No recent travel history no sick contacts no family members with similar complaint, no fevers. No diarrhea MD complaint: nausea, vomiting, abdominal pain -: hour(s) Description of Vomiting: food contents Associated Abdominal Pain: Yes Location: diffuse Radiation: none Severity: severe Severity scale (1-10): 10 Quality: constant Consistency: constant Improves with: none Worsens with: none Context: other (History of same) Associated Symptoms: loss of appetite, nausea/vomiting - Related Data Home Medications Medication Instructions Recorded Confirmed cloNIDine HCL 0.1 mg PO BID 11/16/15 10/07/20 Levothyroxine Sodium [Synthroid] 75 mcg PO DAILY 05/04/16 10/07/20 Omeprazole 20 mg PO DAILY 05/04/16 10/07/20 Nitroglycerin Sl Tabs [Nitrostat] 0.4 mg SL Q5M PRN 07/19/16 10/07/20 Escitalopram [Lexapro] 20 mg PO DAILY 12/16/16 10/07/20 amLODIPine [Norvasc] 5 mg PO DAILY 02/07/18 10/07/20 Albuterol Sulfate [Proair Hfa] 2 puff INHALATION RT-QID PRN 02/13/19 10/07/20 Ondansetron [Zofran] 4 mg PO Q6H PRN 10/07/20 10/07/20 Rosuvastatin [Crestor] 10 mg PO DAILY 10/07/20 10/07/20 Previous Rx's Medication Instructions Recorded Aspirin EC [Ecotrin Low Dose] 81 mg PO DAILY #30 tablet. 06/19/19 Ticagrelor [Brilinta] 90 mg PO BID #60 tab 06/19/19 Allergies Allergy/AdvReac Type Severity Reaction Status Date / Time rivaroxaban [From Xarelto] Allergy Severe Abdominal Verified 10/07/20 23:45 Pain Beta-Blockers Allergy Rash/Hives Verified 10/07/20 23:45 (Beta-Adrenergic Bloc paroxetine HCl [From Paxil] AdvReac Unknown Abdominal Verified 10/07/20 23:45 Pain apixaban [From Eliquis] AdvReac Abdominal Verified 10/07/20 23:45 Pain atorvastatin [From Lipitor] AdvReac Abdominal Verified 10/07/20 23:45 Pain gabapentin AdvReac Abdominal Verified 10/07/20 23:45 Pain warfarin AdvReac Abdominal Verified 10/07/20 23:45 Pain Review of Systems ROS Statement: Those systems with pertinent positive or pertinent negative responses have been documented in the HPI. ROS Other: All systems not noted in ROS Statement are negative. Past Medical History Past Medical History: Coronary Artery Disease (CAD), Chest Pain / Angina, Deep Vein Thrombosis (DVT), GERD/Reflux, GI Bleed, Hyperlipidemia, Hypertension, Myocardial Infarction ([place]), Musculoskeletal Disorder, Osteoarthritis (OA), Pneumonia, Renal Disease, Syncope, Thyroid Disorder Additional Past Medical History / Comment(s): Episodes of acute renal failure associated with dehydration, diverticulitis, IBS, return of hiatal hernia, br onchitis, hypothyroid, chronic low back pain with bilateral sciatica, lumbar DDD, past migraines, DJD, NT Lt foot, 4 DVTs L leg surgically removed. Last Myocardial Infarction Date:: 06/2019 History of Any Multi-Drug Resistant Organisms: None Reported Past Surgical History: Back Surgery, Cholecystectomy, Heart Catheterization, Heart Catheterization With Stent, Hernia Repair, Orthopedic Surgery Additional Past Surgical History / Comment(s): Back fusions L3-L5, ORIF L ankle, L hand fracture with surgery, R knee arthroscopy x2, R elbow tendon release, R shoulder arthroscopy, lumbar spine cyst removed, pain clinic procedures, taylor fundoplication, EGD, colonoscopy, 2019 arteriogram/thrombus extraction at [facility]. PTCA w/ 3 stents now Past Anesthesia/Blood Transfusion Reactions: No Reported Reaction Date of Last Stent Placement:: 2019 Past Psychological History: Depression Smoking Status: Former smoker Past Alcohol Use History: Occasional Past Drug Use History: Marijuana - Past Family History Mother Family Medical History: Thyroid Disorder Additional Family Medical History / Comment(s): Mother is living. Father Family Medical History: Coronary Artery Disease (CAD), Diabetes Mellitus Additional Family Medical History / Comment(s): Father had CABG. He at the age of 84 yrs in a MVA. Sister(s) Family Medical History: Cancer, Thyroid Disorder Additional Family Medical History / Comment(s): SKIN CA/ #2 sister had thyroid cancer General Exam Limitations: no limitations General appearance: alert, in no apparent distress, anxious Head exam: Present: atraumatic, normocephalic, normal inspection Eye exam: Present: normal appearance, PERRL, EOMI. Absent: scleral icterus, conjunctival injection, periorbital swelling ENT exam: Present: normal exam, mucous membranes moist Neck exam: Present: normal inspection. Absent: tenderness, meningismus, lymphadenopathy Respiratory exam: Present: normal lung sounds bilaterally. Absent: respiratory distress, wheezes, rales, rhonchi, stridor Cardiovascular Exam: Present: normal rhythm, tachycardia, normal heart sounds. Absent: systolic murmur, diastolic murmur, rubs, gallop, clicks GI/Abdominal exam: Present: soft, normal bowel sounds. Absent: distended, tenderness, guarding, rebound, rigid Extremities exam: Present: normal inspection, full ROM, normal capillary refill. Absent: tenderness, pedal edema, joint swelling, calf tenderness Back exam: Present: normal inspection Neurological exam: Present: alert, oriented X3, CN II-XII intact Psychiatric exam: Present: normal affect, normal mood Skin exam: Present: warm, dry, intact, normal color. Absent: rash Course Vital Signs 10/07/20 10/08/20 21:41 00:36 Temperature 98.0 F 98.2 F Pulse Rate 104 H 96 Respiratory 18 17 Rate Blood Pressure 166/94 130/87 O2 Sat by Pulse 97 96 Oximetry - Reevaluation(s) Reevaluation #1: 10/07/20 22:58 Medical records reviewed Reevaluation #2: 10/08/20 01:26 Symptoms remain persistent here in the ER with worsening lab values Reevaluation #3: 10/08/20 01:26 Patient is informed of results and questions answered Medical Decision Making - Medical Decision Making 65 male to the ER for evaluation will be admitted for intractable nausea and vomiting abdominal pain dehydration - Lab Data Result diagrams: 10/07/20 22:20 10/07/20 22:20 Lab Results 10/07/20 10/07/20 10/07/20 Range/Units 22:20 22:20 22:20 WBC 12.9 H (3.8-10.6) k/uL RBC 5.53 (4.30-5.90) m/uL Hgb 17.9 H (13.0-17.5) gm/dL Hct 50.2 (39.0-53.0) % MCV 90.7 (80.0-100.0) fL MCH 32.3 (25.0-35.0) pg MCHC 35.6 (31.0-37.0) g/dL RDW 14.9 (11.5-15.5) % Plt Count 295 (150-450) k/uL MPV 7.8 Neutrophils % 85 % Lymphocytes % 10 % Monocytes % 3 % Eosinophils % 1 % Basophils % 0 % Neutrophils # 11.0 H (1.3-7.7) k/uL Lymphocytes # 1.2 (1.0-4.8) k/uL Monocytes # 0.4 (0-1.0) k/uL Eosinophils # 0.1 (0-0.7) k/uL Basophils # 0.0 (0-0.2) k/uL Poikilocytosis Slight Sodium 134 L (137-145) mmol/L Potassium 4.7 (3.5-5.1) mmol/L Chloride 102 (98-107) mmol/L Carbon Dioxide 13 L (22-30) mmol/L Anion Gap 19 mmol/L BUN 25 H (9-20) mg/dL Creatinine 2.25 H (0.66-1.25) mg/dL Est GFR (CKD-EPI)AfAm 34 (>60 ml/min/1.73 sqM) Est GFR (CKD-EPI)NonAf 29 (>60 ml/min/1.73 sqM) Glucose 176 H (74-99) mg/dL Plasma Lactic Acid Chacorta 3.1 H* (0.7-2.0) mmol/L Calcium 11.3 H (8.4-10.2) mg/dL Phosphorus 3.7 (2.5-4.5) mg/dL Magnesium 1.7 (1.6-2.3) mg/dL Total Bilirubin 0.9 (0.2-1.3) mg/dL AST 34 (17-59) U/L ALT 31 (4-49) U/L Alkaline Phosphatase 142 H (38-126) U/L Creatine Kinase 179 H (55-170) U/L Troponin I (0.000-0.034) ng/mL Total Protein 8.6 H (6.3-8.2) g/dL Albumin 5.7 H (3.5-5.0) g/dL Lipase 137 (23-300) U/L Serum Alcohol <10 mg/dL 10/07/20 Range/Units 22:20 WBC (3.8-10.6) k/uL RBC (4.30-5.90) m/uL Hgb (13.0-17.5) gm/dL Hct (39.0-53.0) % MCV (80.0-100.0) fL MCH (25.0-35.0) pg MCHC (31.0-37.0) g/dL RDW (11.5-15.5) % Plt Count (150-450) k/uL MPV Neutrophils % % Lymphocytes % % Monocytes % % Eosinophils % % Basophils % % Neutrophils # (1.3-7.7) k/uL Lymphocytes # (1.0-4.8) k/uL Monocytes # (0-1.0) k/uL Eosinophils # (0-0.7) k/uL Basophils # (0-0.2) k/uL Poikilocytosis Sodium (137-145) mmol/L Potassium (3.5-5.1) mmol/L Chloride (98-107) mmol/L Carbon Dioxide (22-30) mmol/L Anion Gap mmol/L BUN (9-20) mg/dL Creatinine (0.66-1.25) mg/dL Est GFR (CKD-EPI)AfAm (>60 ml/min/1.73 sqM) Est GFR (CKD-EPI)NonAf (>60 ml/min/1.73 sqM) Glucose (74-99) mg/dL Plasma Lactic Acid Chacorta (0.7-2.0) mmol/L Calcium (8.4-10.2) mg/dL Phosphorus (2.5-4.5) mg/dL Magnesium (1.6-2.3) mg/dL Total Bilirubin (0.2-1.3) mg/dL AST (17-59) U/L ALT (4-49) U/L Alkaline Phosphatase (38-126) U/L Creatine Kinase (55-170) U/L Troponin I <0.012 (0.000-0.034) ng/mL Total Protein (6.3-8.2) g/dL Albumin (3.5-5.0) g/dL Lipase (23-300) U/L Serum Alcohol mg/dL - EKG Data -: EKG Interpreted by Me (EKG shows sinus rhythm 85 HI 206 QRS 110 QTc 483) - Radiology Data Radiology results: report reviewed (X-ray abdominal series and KUB is negative for acute disease), image reviewed Disposition Clinical Impression: Intractable vomiting with nausea, Dehydration, Acute gastroenteritis, JOSIE (acute kidney injury), Nausea vomiting and diarrhea, Abdominal pain, Intractable vomiting Disposition: ADMITTED IP TO THIS [facility] Condition: Poor Is patient prescribed a controlled substance at d/c from ED?: No
[2020-10-07 22:43] LABS: Basophils % (A) 0 %; Eosinophils # (A) 0.1 k/uL (0-0.7); Eosinophils % (A) 1 %; HCT 50.2 % (39.0-53.0); HGB 17.9 gm/dL (13.0-17.5); Lymphocytes # (A) 1.2 k/uL (1.0-4.8); Lymphocytes % (A) 10 %; MCH 32.3 pg (25.0-35.0); MCHC 35.6 g/dL (31.0-37.0); MCV 90.7 fL (80.0-100.0); Mean Platelet Volume 7.8; Monocytes # (A) 0.4 k/uL (0-1.0); Monocytes % (A) 3 %; Neutrophils % (A) 85 %; Platelet Count 295 k/uL (150-450); Poikilocytosis Slight; RBC 5.53 m/uL (4.30-5.90); RDW 14.9 % (11.5-15.5); WBC 12.9 k/uL (3.8-10.6)
[2020-10-07 22:53] LABS: ALT 31 U/L (4-49); AST 34 U/L (17-59); African American GFR (CKD) 34 (>60 ml/min/1.73 sqM); Albumin 5.7 g/dL (3.5-5.0); Alcohol <10 mg/dL; Alkaline Phosphatase 142 U/L (38-126); Anion Gap 19 mmol/L; Blood Urea Nitrogen 25 mg/dL (9-20); Calcium 11.3 mg/dL (8.4-10.2); Carbon Dioxide 13 mmol/L (22-30); Chloride 102 mmol/L (98-107); Creatine Kinase 179 U/L (55-170); Glucose 176 mg/dL (74-99); Lipase 137 U/L (23-300); Magnesium 1.7 mg/dL (1.6-2.3); Non-African American GFR(CKD) 29 (>60 ml/min/1.73 sqM); Phosphorus 3.7 mg/dL (2.5-4.5); Potassium 4.7 mmol/L (3.5-5.1); Sodium 134 mmol/L (137-145); Total Bilirubin 0.9 mg/dL (0.2-1.3); Total Protein 8.6 g/dL (6.3-8.2)
--- NOTE | 2020-10-07 23:29 | XR ---
EXAMINATION TYPE: XR abdomen acute w cxr DATE OF EXAM: 10/07/2020 COMPARISON: 02/15/2017 HISTORY: Abdominal pain TECHNIQUE: 4 views FINDINGS: There is no sign of intestinal obstruction or pneumoperitoneum. Fecal pattern is normal. Monae ngs are clear of infiltrate. There is no heart failure. There are no hilar masses. Bony thorax is int act. There are clips from cholecystectomy. IMPRESSION: Nonacute abdomen. No adverse change.
[2020-10-08] MEDS ORDERED: ONDANSETRON 4 MG/2 ML VIAL IVP PRN (00:10)
[2020-10-08] MEDS ORDERED: NALOXONE 0.4 MG/ML 1 ML VIAL IV PRN (00:10)
[2020-10-08] MEDS: HYDROmorphone 1 MG/ML 1 ML SYRINGE IVP PRN ×2 (03:22→07:07)
[2020-10-08] MEDS: SODIUM CHLORIDE 0.9% 1,000 ML IV SCH ×4 (03:27→20:46)
[2020-10-08] MEDS ORDERED: PANTOPRAZOLE 40 MG/10 ML VIAL IV SCH (09:00)
[2020-10-08] MEDS ORDERED: NITROGLYCERIN SL TABS 0.4 MG TAB SUBLINGUAL PRN (09:39)
[2020-10-08] MEDS ORDERED: ONDANSETRON 4 MG TAB PO PRN (09:39)
[2020-10-08] MEDS ORDERED: ALBUTEROL NEBULIZED 2.5 MG/3 ML INHALATION PRN (09:39)
[2020-10-08] MEDS: TICAGRELOR 90 MG TAB PO SCH ×2 (10:15→20:46)
[2020-10-08] MEDS: ESCITALOPRAM 20 MG TAB PO SCH (10:15)
[2020-10-08] MEDS: ATORVASTATIN 20 MG TAB PO SCH (10:15)
[2020-10-08] MEDS: LEVOTHYROXINE 75 MCG TAB PO SCH (10:15)
[2020-10-08] MEDS: ASPIRIN 81 MG PO SCH (10:15)
[2020-10-08] MEDS: cloNIDine HCL 0.1 MG TAB PO SCH ×2 (10:16→20:46)
[2020-10-08] MEDS: ACETAMINOPHEN TAB 500 MG TAB PO PRN (10:16)
[2020-10-08] MEDS: amLODIPine 5 MG TAB PO SCH (10:19)
[2020-10-08 10:43] LABS: HCT 48.3 % (39.0-53.0); HGB 15.6 gm/dL (13.0-17.5); MCHC 32.3 g/dL (31.0-37.0); MCV 93.1 fL (80.0-100.0); Platelet Count 277 k/uL (150-450); RBC 5.19 m/uL (4.30-5.90); RDW 14.7 % (11.5-15.5); WBC 9.3 k/uL (3.8-10.6)
--- NOTE | 2020-10-08 10:53 | P.HPIM ---
History of Present Illness H&P Date: 10/08/20 Chief Complaint: Nausea and vomiting This is 65-year-old gentleman with past medical history of CAD, [place], gastroesophageal reflux disease, hypertension, hyperlipidemia, hypothyroidism, chronic renal failure, former smoker, former THC use, lumbar spondylosis with positive arthropathy-bilateral radiofrequency thermal coagulation L2, L3 and L5 medial branch 06/27/[address] Barger, presented to the ER with nausea and vomiting. Patient had been working on on his roof, became dehydrated, developed nausea vomiting and subsequent acute renal failure. Denies fevers cough con gestion. Denies diarrhea. Denies recent travel or contact with anyone ill. Positive abdominal pain. Acute abdominal x-rays reported nonacute abdomen, no adverse change .BUN 34, creatinine 1.96, repeat levels last night reflecting BUN 25, creatinine up to 2.25. Mildly elevated alk phos, creatinine kinase. Troponin negative 1. EKG reporting normal sinus rhythm, inferior infarct, age undetermined Serum alcohol less than 10. IV fluid hydration initiated with significant clinical improvement. Lactic acid 3.1 on admission and currently down to 1.4 . Mild hyponatremia, improving .Tolerating diet intake with no nausea vomiting or diarrhea. Recently up to the shower, tolerated exertion well . Afebrile, WBC within normal limits on admission, increased to 12.9 with current labs pending. Patient is also a recovering opioid user, approximately 2-3 years ago weaned off. Denies chest pain, palpitations or increasing shortness of breath. Review of Systems ROS Statement: Those systems with pertinent positive or pertinent negative responses have been documented in the HPI. ROS Other: All systems not noted in ROS Statement are negative. Past Medical History Past Medical History: Coronary Artery Disease (CAD), Chest Pain / Angina, Deep Vein Thrombosis (DVT), GERD/Reflux, GI Bleed, Hyperlipidemia, Hypertension, Myocardial Infarction ([place]), Musculoskeletal Disorder, Osteoarthritis (OA), Pneumonia, Renal Disease, Syncope, Thyroid Disorder Additional Past Medical History / Comment(s): Episodes of acute renal failure associated with dehydration, diverticulitis, IBS, return of hiatal hernia, bronchitis, hypothyroid, chronic low back pain with bilateral sciatica, lumbar DDD, past migraines, DJD, NT Lt foot, 4 DVTs L leg surgically removed. Last Myocardial Infarction Date:: 06/2019 History of Any Multi-Drug Resistant Organisms: None Reported Past Surgical History: Back Surgery, Cholecystectomy, Heart Catheterization, Heart Catheterization With Stent, Hernia Repair, Orthopedic Surgery Additional Past Surgical History / Comment(s): Back fusions L3-L5, ORIF L ankle, L hand fracture with surgery, R knee arthroscopy x2, R elbow tendon release, R shoulder arthroscopy, lumbar spine cyst removed, pain clinic procedures, taylor fundoplication, EGD, colonoscopy, 2019 arteriogram/thrombus extraction at [facility]. PTCA w/ 3 stents now Past Anesthesia/Blood Transfusion Reactions: No Reported Reaction Date of Last Stent Placement:: 2019 Past Psychological History: Depression Smoking Status: Former smoker Past Alcohol Use History: Occasional Past Drug Use History: Marijuana - Past Family History Mother Family Medical History: Thyroid Disorder Additional Family Medical History / Comment(s): Mother is living. Father Family Medical History: Coronary Artery Disease (CAD), Diabetes Mellitus Additional Family Medical History / Comment(s): Father had CABG. He at the age of 84 yrs in a MVA. Sister(s) Family Medical History: Cancer, Thyroid Disorder Additional Family Medical History / Comment(s): SKIN CA/ #2 sister had thyroid cancer Medications and Allergies Home Medications Medication Instructions Recorded Confirmed Type cloNIDine HCL 0.1 mg PO BID 11/16/15 10/07/20 History Levothyroxine Sodium [Synthroid] 75 mcg PO DAILY 05/04/16 10/07/20 History Omeprazole 20 mg PO DAILY 05/04/16 10/07/20 History Nitroglycerin Sl Tabs [Nitrostat] 0.4 mg SL Q5M PRN 07/19/16 10/07/20 History Escitalopram [Lexapro] 20 mg PO DAILY 12/16/16 10/07/20 History amLODIPine [Norvasc] 5 mg PO DAILY 02/07/18 10/07/20 History Albuterol Sulfate [Proair Hfa] 2 puff INHALATION RT-QID PRN 02/13/19 10/07/20 History Aspirin EC [Ecotrin Low Dose] 81 mg PO DAILY #30 tablet. 06/19/19 10/07/20 Rx Ticagrelor [Brilinta] 90 mg PO BID #60 tab 06/19/19 10/07/20 Rx Ondansetron [Zofran] 4 mg PO Q6H PRN 10/07/20 10/07/20 History Rosuvastatin [Crestor] 10 mg PO DAILY 10/07/20 10/07/20 History Allergies Allergy/AdvReac Type Severity Reaction Status Date / Time rivaroxaban [From Xarelto] Allergy Severe Abdominal Verified 10/07/20 23:45 Pain Beta-Blockers Allergy Rash/Hives Verified 10/07/20 23:45 (Beta-Adrenergic Bloc paroxetine HCl [From Paxil] AdvReac Unknown Abdominal Verified 10/07/20 23:45 Pain apixaban [From Eliquis] AdvReac Abdominal Verified 10/07/20 23:45 Pain atorvastatin [From Lipitor] AdvReac Abdominal Verified 10/07/20 23:45 Pain gabapentin AdvReac Abdominal Verified 10/07/20 23:45 Pain warfarin AdvReac Abdominal Verified 10/07/20 23:45 Pain Physical Exam Vitals: Vital Signs Temp Pulse Pulse Resp BP BP Pulse Ox 10/08/20 09:23 96 10/08/20 07:00 98.3 F 84 16 126/82 92 L 10/08/20 01:09 98 F 83 18 151/89 96 10/08/20 00:36 98.2 F 96 17 130/87 96 10/07/20 21:41 98.0 F 104 H 18 166/94 97 Intake and Output 10/07/20 10/08/20 10/08/20 22:59 06:59 14:59 Other: Voiding Method Toilet Weight 99.79 kg 99.79 kg GENERAL: This is a -65 year-old in no apparent distress at the time of examination. Pleasant and cooperative. HEENT: Head is atraumatic, normocephalic. Pupils are equal, round, and reactive to light. Sclerae anicteric. Conjunctivae are clear. Mucus membranes of the mouth are moist. Neck is supple. RESPIRATORY: Clear to auscultation. Fine expiratory wheezing. No rales, or rhonchi. No use of accessory muscles. No chest wall tenderness is noted on palpation or with deep breathing. CARDIOVASCULAR: Regular rate and rhythm. S1 and S2 noted. No systolic or diastolic murmur auscultated. No JVD noted. No S3 or S4 noted. GASTROINTESTINAL: No distention noted. Abdomen soft and round, nontender. Positive diastasis recti. Normal active bowel sounds auscultated x 4 quadrants. INTEGUMENTARY: No cyanosis. No jaundice. No rashes noted. No cellulitis noted. EXTREMITIES: 2+ peripheral pulses. No evidence of peripheral edema. No calf tenderness noted. NEUROLOGIC: Cranial nerves II-XII intact. PSYCHIATRIC: Awake, alert, and oriented X 3. Appropriate affect. Intact judgement and insight. Results CBC & Chem 7: 10/07/20 22:20 10/07/20 22:20 Labs: Abnormal Lab Results - Last 24 Hours (Table) 10/07/20 10/07/20 10/07/20 Range/Units 22:20 22:20 22:20 WBC 12.9 H (3.8-10.6) k/uL Hgb 17.9 H (13.0-17.5) gm/dL Neutrophils # 11.0 H (1.3-7.7) k/uL Sodium 134 L (137-145) mmol/L Carbon Dioxide 13 L (22-30) mmol/L BUN 25 H (9-20) mg/dL Creatinine 2.25 H (0.66-1.25) mg/dL Glucose 176 H (74-99) mg/dL Plasma Lactic Acid Chacorta 3.1 H* (0.7-2.0) mmol/L Calcium 11.3 H (8.4-10.2) mg/dL Alkaline Phosphatase 142 H (38-126) U/L Creatine Kinase 179 H (55-170) U/L Total Protein 8.6 H (6.3-8.2) g/dL Albumin 5.7 H (3.5-5.0) g/dL Thrombosis Risk Factor Assmnt - Choose All That Apply Each Risk Factor Represents 2 Points: Age 61-74 years Thrombosis Risk Factor Assessment Total Risk Factor Score: 2 Thrombosis Risk Factor Assessment Level: Low Risk Assessment and Plan Assessment: Nausea vomiting, abdominal pain secondary to dehydration, acute renal failure. Chronic renal failure stage IV Lactic acidosis, resolved Hypothyroidism CAD, history of IN Recovering opioid dependency- no opioids Chronic back pain with spondylosis of lumbar region without myelopathy, recent bilateral radiofrequency thermal coagulation L2, L3 and L5 medial branch 06/27/[address] Barger. Hypertension Hyperlipidemia, intolerant of statins History of Coumadin toxicity, lower GI bleed, unable to tolerate Coumadin, Eliquis for Xarelto secondary to multiple symptoms including cramping, hematuria Former nicotine dependence Plan: Continue on current medication regime ,monitoring and symptomatic treatment. Chest x-ray ordered .Dialaudid discontinued, no opioids, Tylenol added to med regimen. Increase ambulation as tolerated .Maintain IV fluid hydration. A.m. labs ordered/pending. Diet initiated. Home meds reviewed and resumed. Discharge planning in progress potentially for tomorrow pending continued improvement. Close monitoring of renal function with repeat labs ordered for a.m. The impression and plan of care has been dictated as directed. : I performed a history and examination of this patient, discussed the same with the dictator. I agree with the dictator's note ,documented as a scribe. Any a dditional findings or plans will be noted.
[2020-10-08 11:00] LABS: African American GFR (CKD) 43 (>60 ml/min/1.73 sqM); Anion Gap 16 mmol/L; Blood Urea Nitrogen 31 mg/dL (9-20); Calcium 9.9 mg/dL (8.4-10.2); Carbon Dioxide 18 mmol/L (22-30); Chloride 105 mmol/L (98-107); Glucose 103 mg/dL (74-99); Non-African American GFR(CKD) 37 (>60 ml/min/1.73 sqM); Potassium 4.4 mmol/L (3.5-5.1); Sodium 139 mmol/L (137-145)
--- NOTE | 2020-10-08 12:23 | XR ---
EXAMINATION TYPE: XR chest 2V DATE OF EXAM: 10/08/2020 COMPARISON: Chest x-ray 04/09/2020, 10/07/2020 HISTORY: Leukocytosis, wheezing and nausea TECHNIQUE: Frontal and lateral views of the chest are obtained. FINDINGS: There is no focal air space opacity, pleural effusion, or pneumothorax seen. The cardiac silhouette size is stable. There are coronary artery calcifications present. Bronchial wall thickenin g is noted. Aorta is dense. The osseous structures are intact. IMPRESSION: Correlate for bronchitis, reactive airways disease, follow-up as indicated. Coronary art nisa disease.
[2020-10-09 03:06] VITALS: RESP 16; TEMP 97.6
[2020-10-09] MEDS: LEVOTHYROXINE 75 MCG TAB PO SCH (05:36)
[2020-10-09] MEDS: ACETAMINOPHEN TAB 500 MG TAB PO PRN (05:51)
[2020-10-09] MEDS ORDERED: PANTOPRAZOLE 40 MG TABLET PO SCH (07:30)
[2020-10-09 08:17] VITALS: BP 144/79; PULSE 68
[2020-10-09] MEDS: SODIUM CHLORIDE 0.9% 1,000 ML IV SCH (08:21)
[2020-10-09] MEDS: cloNIDine HCL 0.1 MG TAB PO SCH (08:21)
[2020-10-09] MEDS: TICAGRELOR 90 MG TAB PO SCH (08:21)
[2020-10-09] MEDS: amLODIPine 5 MG TAB PO SCH (08:21)
[2020-10-09] MEDS: ASPIRIN 81 MG PO SCH (08:21)
[2020-10-09] MEDS: ESCITALOPRAM 20 MG TAB PO SCH (08:21)
[2020-10-09] MEDS: ATORVASTATIN 20 MG TAB PO SCH (08:22)
[2020-10-09 09:44] LABS: Basophils # (A) 0.04 X 10*3/uL (0.00-0.10); Basophils % (A) 0.5 %; Eosinophils # (A) 0.26 X 10*3/uL (0.04-0.35); Eosinophils % (A) 3.6 %; Lymphocytes # (A) 1.78 X 10*3/uL (0.90-5.00); Lymphocytes % (A) 24.4 %; MCH 29.7 pg (27.0-32.0); MCHC 33.3 g/dL (32.0-37.0); Mean Platelet Volume 10.5 fL (9.5-12.2); Monocytes # (A) 0.58 X 10*3/uL (0.20-1.00); Monocytes % (A) 7.9 %; Neutrophils % (A) 63.1 %; Platelet Count 264 X 10*3/uL (140-440); RBC 4.72 X 10*6/uL (4.40-5.60); RDW 13.3 % (11.5-14.5)
[2020-10-09 10:58] LABS: African American GFR (CKD) 90.5 (60.0-200.0); Albumin 4.5 g/dL (3.80-4.90); Albumin/Globulin Ratio 2.65 (1.60-3.17); Anion Gap 8.7 mmol/L (4.00-12.00); Calcium 9.6 mg/dL (8.7-10.3); Carbon Dioxide 22.3 mmol/L (21.6-31.8); Globulin 1.7 g/dL (1.6-3.3); Magnesium 1.9 mg/dL (1.5-2.4); Non-African American GFR(CKD) 78.1 (60.0-200.0); Potassium 4.6 mmol/L (3.5-5.5); Total Bilirubin 0.5 mg/dL (0.3-1.2); Total Protein 6.2 g/dL (6.2-8.2)
--- NOTE | 2020-10-09 11:18 | P.DS ---
Providers Date of admission: 10/08/20 00:10 Expected date of discharge: 10/09/20 Attending physician: Miki Nava Primary care physician: Miki Nava [facility] Course: Final Diagnoses: Nausea vomiting, abdominal pain secondary to dehydration, acute renal failure. Resolved with IV fluid hydration. Chronic renal failure stage IV Lactic acidosis, resolved Hypothyroidism CAD, history of HI Recovering opioid dependency- no opioids Chronic back pain with spondylosis of lumbar region without myelopathy, recent bilateral radiofrequency thermal coagulation L2, L3 and L5 medial branch 06/27/[address] Barger. Hypertension Hyperlipidemia, intolerant of statins History of Coumadin toxicity, lower GI bleed, unable to tolerate Coumadin, Eliquis for Xarelto secondary to multiple symptoms including cramping, hematuria Former nicotine dependence Hospital course:This is 65-year-old gentleman with past medical history of CAD, HI, gastroesophageal reflux disease, hypertension, hyperlipidemia, hypothyroidism, chronic renal failure, former smoker, former THC use, lumbar spondylosis with positive arthropathy-bilateral radiofrequency thermal coagulation L2, L3 and L5 medial branch 06/27/[address] Barger, presented to the ER with nausea and vomiting. Patient had been working on on his roof, became dehydrated, developed nausea vomiting and subsequent acute renal failure. Denies fevers cough congestion. Denies diarrhea. Denies recent travel or contact with anyone ill. Positive abdominal pain. Acute abdominal x-rays reported nonacute abdomen, no adverse change .BUN 34, creatinine 1.96, repeat levels last night reflecting BUN 25, creatinine up to 2.25. Mildly elevated alk phos, creatinine kinase. Troponin negative 1. EKG reporting normal sinus rhythm, inferior infarct, age undetermined Serum alcohol less than 10. IV fluid hydration initiated with significant clinical improvement. Lactic acid 3.1 on admission and currently down to 1.4 . Mild hyponatremia, improving .Tolerating diet intake with no nausea vomiting or diarrhea. Recently up to the shower, tolerated exertion well. Afebrile, WBC within normal limits on admission, increased to 12.9 with current labs pending. Patient is also a recovering opioid user, approximately 2-3 years ago weaned off. Denies chest pain, palpitations or increasing shortness of breath. Maintained on IV fluid hydration. BUN 18, creatinine 1. Chest x-ray noted- Wheezing resolved. Lungs CTA. Denies cough, congestion. Denies chest pain, palpitations or shortness of breath. Maintaining O2 sats in the mid 90s on room air. Afebrile, normal WBC. Significant clinical improvement. Patient will be discharged home today in stable condition with guarded prognosis. The impression and plan of care has been dictated as directed. : I performed a history and examination of this patient, discussed the same with the dictator. I agree with the dictator's note ,documented as a scribe. Any additional findings or plans will be noted. Patient Condition at Discharge: Stable Plan - Discharge Summary Discharge Rx Participant: No New Discharge Prescriptions: Continue cloNIDine HCL 0.1 mg PO BID Levothyroxine Sodium [Synthroid] 75 mcg PO DAILY Omeprazole 20 mg PO DAILY Nitroglycerin Sl Tabs [Nitrostat] 0.4 mg SL Q5M PRN PRN Reason: Chest Pain Escitalopram [Lexapro] 20 mg PO DAILY amLODIPine [Norvasc] 5 mg PO DAILY Albuterol Sulfate [Proair Hfa] 2 puff INHALATION RT-QID PRN PRN Reason: Shortness Of Breath Ticagrelor [Brilinta] 90 mg PO BID #60 tab Aspirin EC [Ecotrin Low Dose] 81 mg PO DAILY #30 tablet. Ondansetron [Zofran] 4 mg PO Q6H PRN PRN Reason: Nausea Rosuvastatin [Crestor] 10 mg PO DAILY Discharge Medication List cloNIDine HCL 0.1 mg PO BID 11/16/15 [History] Levothyroxine Sodium [Synthroid] 75 mcg PO DAILY 05/04/16 [History] Omeprazole 20 mg PO DAILY 05/04/16 [History] Nitroglycerin Sl Tabs [Nitrostat] 0.4 mg SL Q5M PRN 07/19/16 [History] Escitalopram [Lexapro] 20 mg PO DAILY 12/16/16 [History] amLODIPine [Norvasc] 5 mg PO DAILY 02/07/18 [History] Albuterol Sulfate [Proair Hfa] 2 puff INHALATION RT-QID PRN 02/13/19 [History] Aspirin EC [Ecotrin Low Dose] 81 mg PO DAILY #30 tablet. 06/19/19 [Rx] Ticagrelor [Brilinta] 90 mg PO BID #60 tab 06/19/19 [Rx] Ondansetron [Zofran] 4 mg PO Q6H PRN 10/07/20 [History] Rosuvastatin [Crestor] 10 mg PO DAILY 10/07/20 [History] Follow up Appointment(s)/Referral(s): Miki Nava DO [Primary Care Provider] - 3 Days Patient Instructions/Handouts: Acute Nausea and Vomiting (DC) Activity/Diet/Wound Care/Special Instructions: Pending labs
== END 2020-10-09 11:30 | disposition home or self-care (01) ==
LOC: EC 21:36 → 6NMEDSUR 10-08 00:10
PROVIDERS: ADMIT Family Medicine; ATTEND Family Medicine
DX: N17.9 Acute kidney failure, unspecified (principal); E86.0 Dehydration; E87.2 Acidosis; I12.9 Hypertensive chronic kidney disease with stage 1 through stage 4 chronic kidney disease, or unspecified chronic kidney disease; N18.4 Chronic kidney disease, stage 4 (severe); I25.10 Atherosclerotic heart disease of native coronary artery without angina pectoris; E03.9 Hypothyroidism, unspecified; I25.2 Old myocardial infarction; F11.20 Opioid dependence, uncomplicated; M47.816 Spondylosis without myelopathy or radiculopathy, lumbar region; G89.29 Other chronic pain; M54.5 Low back pain; E78.5 Hyperlipidemia, unspecified; E87.1 Hypo-osmolality and hyponatremia; F32.9 Major depressive disorder, single episode, unspecified; K57.90 Diverticulosis of intestine, part unspecified, without perforation or abscess without bleeding; K58.9 Irritable bowel syndrome, unspecified; M19.90 Unspecified osteoarthritis, unspecified site; K21.9 Gastro-esophageal reflux disease without esophagitis; Z79.890 Hormone replacement therapy; Z79.899 Other long term (current) drug therapy; Z79.02 Long term (current) use of antithrombotics/antiplatelets; Z79.82 Long term (current) use of aspirin; Z88.8 Allergy status to other drugs, medicaments and biological substances; Z88.1 Allergy status to other antibiotic agents; Z87.891 Personal history of nicotine dependence; Z90.49 Acquired absence of other specified parts of digestive tract; Z87.01 Personal history of pneumonia (recurrent); Z87.19 Personal history of other diseases of the digestive system; Z82.49 Family history of ischemic heart disease and other diseases of the circulatory system; Z83.3 Family history of diabetes mellitus; Z80.8 Family history of malignant neoplasm of other organs or systems; Z83.49 Family history of other endocrine, nutritional and metabolic diseases
CPT/HCPCS: 99284; 96376; 96361 ×3; 96375 ×2; 96374; 94640; 94760; 93005; 80053 ×2; 80048; 82550; 83605 ×2; 83690 ×2; 83735 ×2; 84100 ×2; 84484; 85025 ×2; 85027; 74022; 71046; G0378 ×2; G0480; J2060; J1200; J2405; J1170 ×2; C9113; 80320

== ENCOUNTER 2021-05-05 13:50 | Emergency (ER) | payer MEDICARE ==
[2021-05-05 13:58] VITALS: TEMP 98.6
[2021-05-05] MEDS ORDERED: FAMOTIDINE 20 MG/2 ML VIAL IV STA (14:47)
[2021-05-05] MEDS ORDERED: HYDROmorphone 0.5 MG/0.5 ML SYRINGE IVP STA (14:47)
[2021-05-05] MEDS ORDERED: ONDANSETRON 4 MG/2 ML VIAL IVP STA (14:47)
[2021-05-05] MEDS ORDERED: SODIUM CHLORIDE 0.9% 1,000 ML IV STA (14:47)
[2021-05-05] MEDS ORDERED: IPRATROPIUM-ALBUTEROL 3 ML NEB INHALATION STA (14:47)
--- NOTE | 2021-05-05 14:53 | ED ---
General Adult HPI - General Chief complaint: Shortness of Breath Stated complaint: Vomiting Time Seen by Provider: 05/05/21 14:30 Source: patient, RN notes reviewed Mode of arrival: wheelchair Limitations: no limitations - History of Present Illness Initial comments: Patient is a pleasant 66-year-old male presenting to the emergency Department with vomiting. Onset of symptoms was yesterday. Patient still feels nauseous and has vomited several times. Patient denies any dizziness or spinning type sensation or vertigo. No lightheadedness. Patient states he does have a little bit shortness of breath. Patient is unclear when it started. Patient has been coughing for several days. Patient has recently taken a plane ride to and from [place]. Patient does have history of chronic lung problems with similar dyspnea. Patient denies chest pain. No leg pain or leg swelling. - Related Data Home Medications Medication Instructions Recorded Confirmed cloNIDine HCL 0.1 mg PO BID 11/16/15 10/07/20 Levothyroxine Sodium [Synthroid] 75 mcg PO DAILY 05/04/16 10/07/20 Omeprazole 20 mg PO DAILY 05/04/16 10/07/20 Nitroglycerin Sl Tabs [Nitrostat] 0.4 mg SL Q5M PRN 07/19/16 10/07/20 Escitalopram [Lexapro] 20 mg PO DAILY 12/16/16 10/07/20 amLODIPine [Norvasc] 5 mg PO DAILY 02/07/18 10/07/20 Albuterol Sulfate [Proair Hfa] 2 puff INHALATION RT-QID PRN 02/13/19 10/07/20 Ondansetron [Zofran] 4 mg PO Q6H PRN 10/07/20 10/07/20 Rosuvastatin [Crestor] 10 mg PO DAILY 10/07/20 10/07/20 Previous Rx's Medication Instructions Recorded Aspirin EC [Ecotrin Low Dose] 81 mg PO DAILY #30 tablet. 06/19/19 Ticagrelor [Brilinta] 90 mg PO BID #60 tab 06/19/19 Ondansetron Odt [Zofran Odt] 4 mg PO Q8HR PRN #10 tab 05/05/21 Allergies Allergy/AdvReac Type Severity Reaction Status Date / Time rivaroxaban [From Xarelto] Allergy Severe Abdominal Verified 05/05/21 13:58 Pain Beta-Blockers Allergy Rash/Hives Verified 05/05/21 13:58 (Beta-Adrenergic Bloc paroxetine HCl [From Paxil] AdvReac Unknown Abdominal Verified 05/05/21 13:58 Pain apixaban [From Eliquis] AdvReac Abdominal Verified 05/05/21 13:58 Pain atorvastatin [From Lipitor] AdvReac Abdominal Verified 05/05/21 13:58 Pain gabapentin AdvReac Abdominal Verified 05/05/21 13:58 Pain [id number] Reductase AdvReac Unknown Verified 05/05/21 13:58 Inhibitor warfarin AdvReac Abdominal Verified 05/05/21 13:58 Pain Review of Systems ROS Statement: Those systems with pertinent positive or pertinent negative responses have been documented in the HPI. ROS Other: All systems not noted in ROS Statement are negative. Constitutional: Denies: fever Eyes: Denies: eye pain ENT: Denies: ear pain Respiratory: Reports: as per HPI, cough, dyspnea Cardiovascular: Denies: chest pain Endocrine: Denies: fatigue Gastrointestinal: Reports: nausea, vomiting. Denies: abdominal pain, diarrhea, constipation Genitourinary: Denies: dysuria Musculoskeletal: Reports: back pain (Chronic and unchanged. Patient requests Dilaudid for this stating this is the only thing that helps him.) Skin: Denies: rash Neurological: Denies: headache, weakness, vertigo Past Medical History Past Medical History: Coronary Artery Disease (CAD), Chest Pain / Angina, Deep Vein Thrombosis (DVT), GERD/Reflux, GI Bleed, Hyperlipidemia, Hypertension, Myocardial Infarction ([place]), Musculoskeletal Disorder, Osteoarthritis (OA), Pneumonia, Renal Disease, Syncope, Thyroid Disorder Additional Past Medical History / Comment(s): Episodes of acute renal failure associated with dehydration, diverticulitis, IBS, return of hiatal hernia, bronchitis, hypothyroid, chronic low back pain with bilateral sciatica, lumbar DDD, past migraines, DJD, NT Lt foot, 4 DVTs L leg surgically removed. Last Myocardial Infarction Date:: 06/2019 History of Any Multi-Drug Resistant Organisms: None Reported Past Surgical History: Back Surgery, Cholecystectomy, Heart Catheterization, Heart Catheterization With Stent, Hernia Repair, Orthopedic Surgery Additional Past Surgical History / Comment(s): Back fusions L3-L5, ORIF L ankle, L hand fracture with surgery, R knee arthroscopy x2, R elbow tendon release, R shoulder arthroscopy, lumbar spine cyst removed, pain clinic procedures, taylor fundoplication, EGD, colonoscopy, 2019 arteriogram/thrombus extraction at [facility]. PTCA w/ 3 stents now Past Anesthesia/Blood Transfusion Reactions: No Reported Reaction Date of Last Stent Placement:: 2019 Past Psychological History: Depression Smoking Status: Former smoker Past Alcohol Use History: Occasional Past Drug Use History: Marijuana - Past Family History Mother Family Medical History: Thyroid Disorder Additional Family Medical History / Comment(s): Mother is living. Father Family Medical History: Coronary Artery Disease (CAD), Diabetes Mellitus Additional Family Medical History / Comment(s): Father had CABG. He at the age of 84 yrs in a MVA. Sister(s) Family Medical History: Cancer, Thyroid Disorder Additional Family Medical History / Comment(s): SKIN CA/ #2 sister had thyroid cancer General Exam Limitations: no limitations General appearance: alert, in no apparent distress Head exam: Present: normocephalic Eye exam: Present: normal appearance Neck exam: Present: normal inspection Respiratory exam: Present: wheezes Cardiovascular Exam: Present: regular rate, normal rhythm GI/Abdominal exam: Present: soft. Absent: distended, tenderness, guarding, rebound, rigid, pulsatile mass Extremities exam: Present: normal inspection. Absent: pedal edema, calf tenderness Neurological exam: Present: alert Psychiatric exam: Present: normal affect, normal mood Skin exam: Present: normal color Course Vital Signs 05/05/21 05/05/21 05/05/21 13:54 15:17 15:50 Temperature 98.6 F Pulse Rate 118 H 87 84 Respiratory 28 H 16 Rate Blood Pressure 180/129 163/100 O2 Sat by Pulse 99 100 Oximetry 05/05/21 15:56 Temperature Pulse Rate 87 Respiratory Rate Blood Pressure O2 Sat by Pulse Oximetry EKG Findings - EKG Comments: EKG Findings:: Sinus tachycardia 106. For screening AV block IA 208. QRS 110. QT 404. QTC 466. Normal axis. Inferior Q waves. No acute ST change. Medical Decision Making - Medical Decision Making Patient evaluated and resting comfortably in bed. Patient is feeling much better and looks much better. Lungs are clear to auscultation. Patient is comfortable with discharge home. IV fluid bag was opened up. - Lab Data Result diagrams: 05/05/21 15:04 05/05/21 15:04 Lab Results 05/05/21 05/05/21 05/05/21 Range/Units 15:04 15:04 15:04 WBC 7.5 (3.8-10.6) k/uL RBC 5.61 (4.30-5.90) m/uL Hgb 17.0 (13.0-17.5) gm/dL Hct 49.5 (39.0-53.0) % MCV 88.3 (80.0-100.0) fL MCH 30.3 (25.0-35.0) pg MCHC 34.3 (31.0-37.0) g/dL RDW 14.4 (11.5-15.5) % Plt Count 297 (150-450) k/uL MPV 7.6 Neutrophils % 69 % Lymphocytes % 20 % Monocytes % 6 % Eosinophils % 1 % Basophils % 1 % Neutrophils # 5.2 (1.3-7.7) k/uL Lymphocytes # 1.5 (1.0-4.8) k/uL Monocytes # 0.4 (0-1.0) k/uL Eosinophils # 0.1 (0-0.7) k/uL Basophils # 0.0 (0-0.2) k/uL PT 10.6 (9.0-12.0) sec INR 1.0 (<1.2) APTT 18.1 L (22.0-30.0) sec D-Dimer 0.46 (<0.60) mg/L FEU Sodium 139 (137-145) mmol/L Potassium 4.2 (3.5-5.1) mmol/L Chloride 105 (98-107) mmol/L Carbon Dioxide 16 L (22-30) mmol/L Anion Gap 18 mmol/L BUN 20 (9-20) mg/dL Creatinine 1.44 H (0.66-1.25) mg/dL Est GFR (CKD-EPI)AfAm 58 (>60 ml/min/1.73 sqM) Est GFR (CKD-EPI)NonAf 50 (>60 ml/min/1.73 sqM) Glucose 158 H (74-99) mg/dL Calcium 10.6 H (8.4-10.2) mg/dL Total Bilirubin 1.4 H (0.2-1.3) mg/dL AST 44 (17-59) U/L ALT 49 (4-49) U/L Alkaline Phosphatase 136 H (38-126) U/L Troponin I (0.000-0.034) ng/mL NT-Pro-B Natriuret Pep pg/mL Total Protein 9.5 H (6.3-8.2) g/dL Albumin 5.6 H (3.5-5.0) g/dL Coronavirus (PCR) (Not Detectd) 05/05/21 05/05/21 05/05/21 Range/Units 15:04 15:04 15:04 WBC (3.8-10.6) k/uL RBC (4.30-5.90) m/uL Hgb (13.0-17.5) gm/dL Hct (39.0-53.0) % MCV (80.0-100.0) fL MCH (25.0-35.0) pg MCHC (31.0-37.0) g/dL RDW (11.5-15.5) % Plt Count (150-450) k/uL MPV Neutrophils % % Lymphocytes % % Monocytes % % Eosinophils % % Basophils % % Neutrophils # (1.3-7.7) k/uL Lymphocytes # (1.0-4.8) k/uL Monocytes # (0-1.0) k/uL Eosinophils # (0-0.7) k/uL Basophils # (0-0.2) k/uL PT (9.0-12.0) sec INR (<1.2) APTT (22.0-30.0) sec D-Dimer (<0.60) mg/L FEU Sodium (137-145) mmol/L Potassium (3.5-5.1) mmol/L Chloride (98-107) mmol/L Carbon Dioxide (22-30) mmol/L Anion Gap mmol/L BUN (9-20) mg/dL Creatinine (0.66-1.25) mg/dL Est GFR (CKD-EPI)AfAm (>60 ml/min/1.73 sqM) Est GFR (CKD-EPI)NonAf (>60 ml/min/1.73 sqM) Glucose (74-99) mg/dL Calcium (8.4-10.2) mg/dL Total Bilirubin (0.2-1.3) mg/dL AST (17-59) U/L ALT (4-49) U/L Alkaline Phosphatase (38-126) U/L Troponin I <0.012 (0.000-0.034) ng/mL NT-Pro-B Natriuret Pep 89 pg/mL Total Protein (6.3-8.2) g/dL Albumin (3.5-5.0) g/dL Coronavirus (PCR) Not Detected (Not Detectd) - Radiology Data Radiology results: image reviewed (Chest x-ray shows no acute process) Disposition Clinical Impression: Vomiting, Bronchospasm Disposition: HOME SELF-CARE Condition: Stable Instructions (If sedation given, give patient instructions): Bronchospasm (ED), Acute Nausea and Vomiting (ED) Additional Instructions: Prescription for nausea medicine has been sent to pharmacy. Please do follow-up with primary care physician in the next day or 2 for recheck. Return for difficulty breathing, not tolerating fluids, worsening or changing symptoms or other concerns. Prescriptions: Ondansetron Odt [Zofran Odt] 4 mg PO Q8HR PRN #10 tab PRN Reason: Nausea Is patient prescribed a controlled substance at d/c from ED?: No Referrals: Miki Nava DO [Primary Care Provider] - 1-2 days Time of Disposition: 16:49
[2021-05-05 15:14] LABS: Basophils % (A) 1 %; Eosinophils # (A) 0.1 k/uL (0-0.7); Eosinophils % (A) 1 %; HCT 49.5 % (39.0-53.0); Lymphocytes # (A) 1.5 k/uL (1.0-4.8); Lymphocytes % (A) 20 %; MCH 30.3 pg (25.0-35.0); MCHC 34.3 g/dL (31.0-37.0); MCV 88.3 fL (80.0-100.0); Mean Platelet Volume 7.6; Monocytes # (A) 0.4 k/uL (0-1.0); Monocytes % (A) 6 %; Neutrophils # (A) 5.2 k/uL (1.3-7.7); Neutrophils % (A) 69 %; Platelet Count 297 k/uL (150-450); RBC 5.61 m/uL (4.30-5.90); RDW 14.4 % (11.5-15.5); WBC 7.5 k/uL (3.8-10.6)
[2021-05-05 15:18] VITALS: RESP 16
[2021-05-05 15:22] LABS: Albumin 5.6 g/dL (3.5-5.0); Calcium 10.6 mg/dL (8.4-10.2); Potassium 4.2 mmol/L (3.5-5.1); Total Bilirubin 1.4 mg/dL (0.2-1.3); Total Protein 9.5 g/dL (6.3-8.2)
[2021-05-05 15:42] LABS: Prothrombin Time 10.6 sec (9.0-12.0)
--- NOTE | 2021-05-05 15:44 | XR ---
EXAMINATION TYPE: XR chest 2V DATE OF EXAM: 05/05/2021 COMPARISON: Chest x-ray dated 11/04/2020, 10/08/2020 HISTORY: Difficulty breathing TECHNIQUE: Frontal and lateral views of the chest are obtained. FINDINGS: There is no focal air space opacity, pleural effusion, or pneumothorax seen. The cardiac silhouette size is within normal limits. There are overlying leads. Aorta is dense. There is thoraci c spondylosis. The osseous structures are intact. IMPRESSION: No acute cardiopulmonary process.
[2021-05-05 15:48] LABS: Partial Thromboplastin Time 18.1 sec (22.0-30.0)
[2021-05-05 16:52] VITALS: BP 146/95; PULSE 82
== END 2021-05-05 17:00 | disposition home or self-care (01) ==
LOC: EC 13:50
DX: R11.2 Nausea with vomiting, unspecified (principal); J98.01 Acute bronchospasm; I25.10 Atherosclerotic heart disease of native coronary artery without angina pectoris; K21.9 Gastro-esophageal reflux disease without esophagitis; E78.5 Hyperlipidemia, unspecified; I10 Essential (primary) hypertension; I25.2 Old myocardial infarction; M19.90 Unspecified osteoarthritis, unspecified site; E07.9 Disorder of thyroid, unspecified; F32.A Depression, unspecified; F12.90 Cannabis use, unspecified, uncomplicated; Z20.822 Contact with and (suspected) exposure to COVID-19; Z79.82 Long term (current) use of aspirin; Z88.1 Allergy status to other antibiotic agents; Z86.718 Personal history of other venous thrombosis and embolism; Z87.891 Personal history of nicotine dependence
CPT/HCPCS: 99285; 96374; 96375 ×2; 96361 ×2; 36415; 94640; 93005; 85379; 83880; 80053; 84484; 85025; 85610; 85730; 87635; 71046; J2405; J1170

== ENCOUNTER → 2021-06-22 | Outpatient (CLI) | payer MEDICARE | END | disposition home or self-care (01) | LOC: LABPAT 12:00 | PROVIDERS: ATTEND Orthopaedic Surgery | DX: Z01.812 Encounter for preprocedural laboratory examination (principal); Z22.322 Carrier or suspected carrier of Methicillin resistant Staphylococcus aureus; M17.11 Unilateral primary osteoarthritis, right knee | CPT/HCPCS: 87070 ==

== ENCOUNTER 2021-07-11 17:53 | Emergency (ER) | payer MEDICARE ==
--- NOTE | 2021-07-11 18:38 | XR ---
EXAMINATION TYPE: XR chest 2V DATE OF EXAM: 07/11/2021 COMPARISON: 07/08/2021 HISTORY: Chest injury. Pain. TECHNIQUE: FINDINGS: Heart is normal. Lungs are clear of infiltrate. No heart failure. There are no hilar masses . No pleural effusion or pneumothorax. The bony thorax appears intact. IMPRESSION: No active cardiopulmonary disease. No change.
[2021-07-11] MEDS ORDERED: HYDROmorphone 1 MG/ML 1 ML SYRINGE IM STA ×2 (20:17→21:40)
--- NOTE | 2021-07-11 21:00 | CT ---
EXAMINATION TYPE: CT chest wo con DATE OF EXAM: 07/11/2021 COMPARISON: 03/11/2015 HISTORY: Fall/trauma to sternal region, pain. CT DLP: 452.8 mGycm Automated exposure control for dose reduction was used. Images obtained from the thoracic inlet to the diaphragm with no contrast. The lungs are clear of consolidation. There is subsegmental atelectasis at the lung bases. Heart size is normal. No pericardial effusion. There is coronary artery calcification. No mediastinal adenopath y. There are no hilar masses. Heart size is fairly normal. The thoracic spine is intact. No compression fracture. Sternum is intact. IMPRESSION: There is some mild atelectasis at the lung bases which is increased compared to old exam. No suspicio us pulmonary mass. No pulmonary consolidation.
--- NOTE | 2021-07-11 21:44 | ED ---
General Adult HPI - General Chief complaint: Chest Pain Stated complaint: fall, chest injury Time Seen by Provider: 07/11/21 18:15 Source: patient Mode of arrival: ambulatory Limitations: no limitations - History of Present Illness Initial comments: 66-year-old male with significant past medical history presents emergency Department with chest pain. He reports that he fell on onto a steel wagon that transports a lawnmower. He sustained bruising to his left chest wall. He came into the emergency department and was evaluated. Patient not provided with any medications to go home. States that his pain began to improve however yesterday he had a coughing episode and felt a popping sensation in the middle of his chest. He was concerned that he reinjured himself and therefore came into the emergency room for evaluation. Denies taking any pain medications at home currently. Admits to smoking marijuana for his pain. He denies any fe vers or chills. No cough. No other alleviating, precipitating or modifying factors - Related Data Home Medications Medication Instructions Recorded Confirmed cloNIDine HCL 0.1 mg PO BID 11/16/15 05/05/21 Levothyroxine Sodium [Synthroid] 75 mcg PO DAILY 05/04/16 05/05/21 Omeprazole 20 mg PO DAILY 05/04/16 05/05/21 Escitalopram [Lexapro] 20 mg PO DAILY 12/16/16 05/05/21 amLODIPine [Norvasc] 5 mg PO DAILY 02/07/18 05/05/21 Diclofenac Sodium Gel [Voltaren 2 - 4 gm TOPICAL QID PRN 05/05/21 05/05/21 Gel] Previous Rx's Medication Instructions Recorded Ticagrelor [Brilinta] 90 mg PO BID #60 tab 06/19/19 Ondansetron Odt [Zofran Odt] 4 mg PO Q8HR PRN #10 tab 05/05/21 HYDROcodone/APAP 10-325MG [Oxford 1 tab PO Q4HR PRN #18 tab 07/11/21 10-325] Allergies Allergy/AdvReac Type Severity Reaction Status Date / Time rivaroxaban [From Xarelto] AdvReac Severe Nausea & Verified 07/11/21 18:16 Vomiting & Diarrhea paroxetine HCl [From Paxil] AdvReac Unknown Nausea & Verified 07/11/21 18:16 Vomiting & Diarrhea apixaban [From Eliquis] AdvReac Nausea & Verified 07/11/21 18:16 Vomiting & Diarrhea atorvastatin [From Lipitor] AdvReac Nausea & Verified 07/11/21 18:16 Vomiting & Diarrhea Beta-Blockers AdvReac Nausea & Verified 07/11/21 18:16 (Beta-Adrenergic Bloc Vomiting & Diarrhea gabapentin AdvReac Nausea & Verified 07/11/21 18:16 Vomiting & Diarrhea [id number]-HdN Reductase AdvReac Nausea & Verified 07/11/21 18:16 Inhibitor Vomiting & Diarrhea warfarin AdvReac Nausea & Verified 07/11/21 18:16 Vomiting & Diarrhea Review of Systems ROS Statement: Those systems with pertinent positive or pertinent negative responses have been documented in the HPI. ROS Other: All systems not noted in ROS Statement are negative. Past Medical History Past Medical History: Coronary Artery Disease (CAD), Chest Pain / Angina, Deep Vein Thrombosis (DVT), GERD/Reflux, GI Bleed, Hyperlipidemia, Hypertension, Myocardial Infarction ([place]), Musculoskeletal Disorder, Osteoarthritis (OA), Pneumonia, Renal Disease, Syncope, Thyroid Disorder Additional Past Medical History / Comment(s): Episodes of acute renal failure associated with dehydration, diverticulitis, IBS, return of hiatal hernia, bronchitis, hypothyroid, chronic low back pain with bilateral sciatica, lumbar DDD, past migraines, DJD, NT Lt foot, 4 DVTs L leg surgically removed. Last Myocardial Infarction Date:: 06/2019 History of Any Multi-Drug Resistant Organisms: None Reported Past Surgical History: Back Surgery, Cholecystectomy, Heart Catheterization, Heart Catheterization With Stent, Hernia Repair, Orthopedic Surgery Additional Past Surgical History / Comment(s): Back fusions L3-L5, ORIF L ankle, L hand fracture with surgery, R knee arthroscopy x2, R elbow tendon release, R shoulder arthroscopy, lumbar spine cyst removed, pain clinic procedures, taylor fundoplication, EGD, colonoscopy, 2019 arteriogram/thrombus extraction at [facility]. PTCA w/ 3 stents now Past Anesthesia/Blood Transfusion Reactions: No Reported Reaction Date of Last Stent Placement:: 2019 Past Psychological History: No Psychological Hx Reported, Depression Smoking Status: Former smoker Past Alcohol Use History: Occasional Past Drug Use History: Marijuana - Past Family History Mother Family Medical History: Thyroid Disorder Additional Family Medical History / Comment(s): Mother is living. Father Family Medical History: Coronary Artery Disease (CAD), Diabetes Mellitus Additional Family Medical History / Comment(s): Father had CABG. He at the age of 84 yrs in a MVA. Sister(s) Family Medical History: Cancer, Thyroid Disorder Additional Family Medical History / Comment(s): SKIN CA/ #2 sister had thyroid cancer General Exam Limitations: no limitations General appearance: alert, in no apparent distress Head exam: Present: atraumatic, normocephalic, normal inspection Eye exam: Present: normal appearance, PERRL, EOMI. Absent: scleral icterus, conjunctival injection, periorbital swelling ENT exam: Present: normal exam, mucous membranes moist Neck exam: Present: normal inspection. Absent: tenderness, meningismus, lymphadenopathy Respiratory exam: Present: normal lung sounds bilaterally, chest wall tenderness (sternal pain - no step offs or overlying ecchymosis. ecchymosis present under left breast and left lateral chest wall in stages of healing). Absent: respiratory distress, wheezes, rales, rhonchi, stridor Cardiovascular Exam: Present: regular rate, normal rhythm, normal heart sounds. Absent: systolic murmur, diastolic murmur, rubs, gallop, clicks GI/Abdominal exam: Present: soft, normal bowel sounds. Absent: distended, tenderness, guarding, rebound, rigid Extremities exam: Present: normal inspection, full ROM, normal capillary refill. Absent: tenderness, pedal edema, joint swelling, calf tenderness Back exam: Present: normal inspection Neurological exam: Present: alert, oriented X3, CN II-XII intact Psychiatric exam: Present: normal affect, normal mood Skin exam: Present: warm, dry, intact, normal color. Absent: rash Course Vital Signs 07/11/21 07/11/21 18:13 22:16 Temperature 98.0 F 98.3 F Pulse Rate 89 70 Respiratory 16 20 Rate Blood Pressure 126/84 139/75 O2 Sat by Pulse 97 97 Oximetry Medical Decision Making - Medical Decision Making Upon arrival patient is placed in room 19. A thorough history and physical exam was performed. X-ray was performed which demonstrates no acute injuries. He is sent back for a CT of his chest as this is his second visit for chest pain. No sternal fractures or retrosternal hematoma. He is requesting pain medication. He was given 1 IM dose of Dilaudid. Patient will be discharged home and instructed to follow-up with his primary care doctor in 2-4 days. He will be given a short prescription for Oxford. Return for any new or worsening symptoms. Patient discharged home in stable condition Disposition Clinical Impression: Blunt chest trauma Disposition: HOME SELF-CARE Condition: Stable Instructions (If sedation given, give patient instructions): Chest Wall Pain (ED) Additional Instructions: Use the incentive spirometer once an hour. Take the pain medications as directed and follow-up with your primary care doctor in 2-4 days. Prescriptions: HYDROcodone/APAP 10-325MG [[place] 10-325] 1 tab PO Q4HR PRN #18 tab PRN Reason: pain Is patient prescribed a controlled substance at d/c from ED?: Yes When asked, does pt state using other controlled substances?: No If prescribed controlled substance>3 days was MAPS reviewed?: Prescribed <3 Days If opioid is for acute pain is fill amount 7 days or less?: Yes Referrals: Miki Nava DO [Primary Care Provider] - 1-2 days Time of Disposition: 21:44
[2021-07-11 22:17] VITALS: BP 139/75; PULSE 70; RESP 20; TEMP 98.3
== END 2021-07-11 22:15 | disposition home or self-care (01) ==
LOC: EC 17:53
DX: S29.9XXA Unspecified injury of thorax, initial encounter (principal); K21.9 Gastro-esophageal reflux disease without esophagitis; Z79.83 Long term (current) use of bisphosphonates; E07.9 Disorder of thyroid, unspecified; Z79.1 Long term (current) use of non-steroidal anti-inflammatories (NSAID); I10 Essential (primary) hypertension; E78.5 Hyperlipidemia, unspecified; I25.2 Old myocardial infarction; Z87.891 Personal history of nicotine dependence; Z88.9 Allergy status to unspecified drugs, medicaments and biological substances; Z88.1 Allergy status to other antibiotic agents; Z88.8 Allergy status to other drugs, medicaments and biological substances; Z88.3 Allergy status to other anti-infective agents; W17.89XA Other fall from one level to another, initial encounter
CPT/HCPCS: 71046; 71250; 99285; 96372; J1170

== ENCOUNTER 2021-07-26 12:04 | Emergency (ER) | payer MEDICARE ==
[2021-07-26 12:10] VITALS: TEMP 98
[2021-07-26] MEDS ORDERED: SODIUM CHLORIDE 0.9% 1,000 ML IV STA ×2 (12:23)
--- NOTE | 2021-07-26 12:27 | ED ---
Recheck HPI - General Chief Complaint: Recheck/Abnormal Lab/Rx Stated Complaint: chest injury, 3 weeks ago Time Seen by Provider: 07/26/21 12:12 Source: patient, RN notes reviewed, old records reviewed Mode of arrival: ambulatory Limitations: no limitations - History of Present Illness Initial Comments: 66-year-old male with a history of COPD history of heart disease who states he fell about 3 weeks ago ONTO a cart he was evaluated couple days later including a CAT scan of the chest no definitive problems or follow the time he states since that time he isn't having exertional dyspnea shortness of breath he's been using Mucinex trying clear his lungs. Still has some anterior chest pain. He did chills and sweats yesterday. States she's been fatigued he is concerned he may have pneumonia he has been coughing. he has weakness he has nausea he tries to eat. He states he was scheduled for bradycardia surgery tomorrow. He canceled it was 2 weeks ago through the process. - Related Data Home Medications Medication Instructions Recorded Confirmed cloNIDine HCL 0.1 mg PO BID 11/16/15 07/26/21 Levothyroxine Sodium [Synthroid] 75 mcg PO DAILY 05/04/16 07/26/21 Omeprazole 20 mg PO BID 05/04/16 07/26/21 Escitalopram [Lexapro] 20 mg PO DAILY 12/16/16 07/26/21 amLODIPine [Norvasc] 5 mg PO DAILY 02/07/18 07/26/21 Nitroglycerin Sl Tabs [Nitrostat] 0.4 mg SUBLINGUAL Q5M PRN 07/23/21 07/26/21 HYDROcodone/APAP 10-325MG [[place] 1 tab PO Q4H PRN 07/26/21 07/26/21 10-325] Previous Rx's Medication Instructions Recorded Ticagrelor [Brilinta] 90 mg PO BID #60 tab 06/19/19 predniSONE [Deltasone] 20 mg PO BID #10 tab 07/26/21 Allergies Allergy/AdvReac Type Severity Reaction Status Date / Time rivaroxaban [From Xarelto] AdvReac Severe Nausea & Verified 07/26/21 15:29 Vomiting & Diarrhea paroxetine HCl [From Paxil] AdvReac Unknown Nausea & Verified 07/26/21 15:29 Vomiting & Diarrhea apixaban [From Eliquis] AdvReac Nausea & Verified 07/26/21 15:29 Vomiting & Diarrhea atorvastatin [From Lipitor] AdvReac Nausea & Verified 07/26/21 15:29 Vomiting & Diarrhea Beta-Blockers AdvReac Nausea & Verified 07/26/21 15:29 (Beta-Adrenergic Bloc Vomiting & Diarrhea gabapentin AdvReac Nausea & Verified 07/26/21 15:29 Vomiting & Diarrhea Bdczkeg-HSF-KgC Reductase AdvReac Nausea & Verified 07/26/21 15:29 Inhibitor Vomiting & Diarrhea warfarin AdvReac Nausea & Verified 07/26/21 15:29 Vomiting & Diarrhea Review of Systems ROS Statement: Those systems with pertinent positive or pertinent negative responses have been documented in the HPI. ROS Other: All systems not noted in ROS Statement are negative. Past Medical History Past Medical History: Coronary Artery Disease (CAD), Chest Pain / Angina, Deep Vein Thrombosis (DVT), GERD/Reflux, GI Bleed, Hyperlipidemia, Hypertension, Myocardial Infarction ([place]), Musculoskeletal Disorder, Osteoarthritis (OA), Pneumonia, Renal Disease, Syncope, Thyroid Disorder Additional Past Medical History / Comment(s): Episodes of acute renal failure as sociated with dehydration, diverticulitis, IBS, return of hiatal hernia, bronchitis, hypothyroid, chronic low back pain with bilateral sciatica, lumbar DDD, past migraines, DJD, NT Lt foot, 4 DVTs L leg surgically removed. Last Myocardial Infarction Date:: 06/2019 History of Any Multi-Drug Resistant Organisms: None Reported Past Surgical History: Back Surgery, Cholecystectomy, Heart Catheterization, Heart Catheterization With Stent, Hernia Repair, Orthopedic Surgery Additional Past Surgical History / Comment(s): Back fusions L3-L5, ORIF L ankle, L hand fracture with surgery, R knee arthroscopy x2, R elbow tendon release, R shoulder arthroscopy, lumbar spine cyst removed, pain clinic procedures, taylor fundoplication, EGD, colonoscopy, 2019 arteriogram/thrombus extraction at [facility]. PTCA w/ 3 stents now Past Anesthesia/Blood Transfusion Reactions: No Reported Reaction Date of Last Stent Placement:: 2019 Past Psychological History: No Psychological Hx Reported, Depression Smoking Status: Former smoker Past Alcohol Use History: Occasional Past Drug Use History: Marijuana - Past Family History Mother Family Medical History: Thyroid Disorder Additional Family Medical History / Comment(s): Mother is living. Father Family Medical History: Coronary Artery Disease (CAD), Diabetes Mellitus Additional Family Medical History / Comment(s): Father had CABG. He at the age of 84 yrs in a MVA. Sister(s) Family Medical History: Cancer Additional Family Medical History / Comment(s): SKIN CA/ #2 sister had thyroid cancer General Exam - General Exam Comments Initial Comments: This is a well-developed well-nourished awake alert oriented 4 male Limitations: no limitations General appearance: alert, in no apparent distress Head exam: Present: atraumatic, normocephalic, normal inspection Eye exam: Present: normal appearance, PERRL, EOMI. Absent: scleral icterus, conjunctival injection, periorbital swelling ENT exam: Present: mucous membranes dry Neck exam: Present: normal inspection, full ROM, other Respiratory exam: Present: chest wall tenderness (Decreased breath sounds the left compared to the right), decreased breath sounds (No stridor JVD or bruits) Cardiovascular Exam: Present: regular rate, normal rhythm, normal heart sounds. Absent: systolic murmur, diastolic murmur, rubs, gallop, clicks GI/Abdominal exam: Present: soft, normal bowel sounds. Absent: distended, tenderness, guarding, rebound, rigid Extremities exam: Present: normal inspection, full ROM, normal capillary refill. Absent: tenderness, pedal edema, joint swelling, calf tenderness Back exam: Present: normal inspection Neurological exam: Present: alert, oriented X3, CN II-XII intact Psychiatric exam: Present: normal affect, normal mood Skin exam: Present: warm, dry, intact, normal color. Absent: rash Course Vital Signs 07/26/21 12:07 Temperature 98 F Pulse Rate 88 Respiratory 22 Rate Blood Pressure 115/79 O2 Sat by Pulse 98 Oximetry - Reevaluation(s) Reevaluation #1: 07/26/21 18:04 Reevaluation the patient after treatment he feels much improved at this time he is breathing easier he did receive antibody for COVID-19. Medical Decision Making - Medical Decision Making Patient initially much improved after treatment rendered. He is COVID-19 positive he also has evidence of COPD exacerbation addition to the sternal fracture discovered from the previous incident. He also demonstrate evidence of clinical dehydration. He will be discharged we did discuss vitamin C vitamin D3 and zinc. He does have an inhaler. Additionally short course of steroids. - Lab Data Result diagrams: 07/26/21 13:26 07/26/21 13:26 Lab Results 07/26/21 07/26/21 07/26/21 Range/Units 13:26 13:26 13:26 WBC 6.7 (3.8-10.6) k/uL RBC 4.88 (4.30-5.90) m/uL Hgb 15.3 (13.0-17.5) gm/dL Hct 42.1 (39.0-53.0) % MCV 86.3 (80.0-100.0) fL MCH 31.3 (25.0-35.0) pg MCHC 36.3 (31.0-37.0) g/dL RDW 12.8 (11.5-15.5) % Plt Count 252 (150-450) k/uL MPV 7.8 Neutrophils % 72 % Lymphocytes % 18 % Monocytes % 7 % Eosinophils % 2 % Basophils % 1 % Neutrophils # 4.8 (1.3-7.7) k/uL Lymphocytes # 1.2 (1.0-4.8) k/uL Monocytes # 0.5 (0-1.0) k/uL Eosinophils # 0.1 (0-0.7) k/uL Basophils # 0.1 (0-0.2) k/uL PT (9.0-12.0) sec INR (<1.2) APTT (22.0-30.0) sec D-Dimer (<0.60) mg/L FEU Sodium 135 L (137-145) mmol/L Potassium 4.4 (3.5-5.1) mmol/L Chloride 98 (98-107) mmol/L Carbon Dioxide 19 L (22-30) mmol/L Anion Gap 18 mmol/L BUN 41 H (9-20) mg/dL Creatinine 1.56 H (0.66-1.25) mg/dL Est GFR (CKD-EPI)AfAm 52 (>60 ml/min/1.73 sqM) Est GFR (CKD-EPI)NonAf 45 (>60 ml/min/1.73 sqM) Glucose 122 H (74-99) mg/dL Plasma Lactic Acid Chacorta 1.4 (0.7-2.0) mmol/L Calcium 10.2 (8.4-10.2) mg/dL Magnesium 2.3 (1.6-2.3) mg/dL Total Bilirubin 1.8 H (0.2-1.3) mg/dL AST 35 (17-59) U/L ALT 36 (4-49) U/L Alkaline Phosphatase 125 (38-126) U/L Troponin I (0.000-0.034) ng/mL NT-Pro-B Natriuret Pep pg/mL Total Protein 8.6 H (6.3-8.2) g/dL Albumin 5.2 H (3.5-5.0) g/dL Coronavirus (PCR) (Not Detectd) Influenza Type A RNA (Not Detectd) Influenza Type B (PCR) (Not Detectd) 07/26/21 07/26/21 07/26/21 Range/Units 13:26 13:26 13:55 WBC (3.8-10.6) k/uL RBC (4.30-5.90) m/uL Hgb (13.0-17.5) gm/dL Hct (39.0-53.0) % MCV (80.0-100.0) fL MCH (25.0-35.0) pg MCHC (31.0-37.0) g/dL RDW (11.5-15.5) % Plt Count (150-450) k/uL MPV Neutrophils % % Lymphocytes % % Monocytes % % Eosinophils % % Basophils % % Neutrophils # (1.3-7.7) k/uL Lymphocytes # (1.0-4.8) k/uL Monocytes # (0-1.0) k/uL Eosinophils # (0-0.7) k/uL Basophils # (0-0.2) k/uL PT 10.6 (9.0-12.0) sec INR 1.0 (<1.2) APTT 22.7 (22.0-30.0) sec D-Dimer 0.78 H (<0.60) mg/L FEU Sodium (137-145) mmol/L Potassium (3.5-5.1) mmol/L Chloride (98-107) mmol/L Carbon Dioxide (22-30) mmol/L Anion Gap mmol/L BUN (9-20) mg/dL Creatinine (0.66-1.25) mg/dL Est GFR (CKD-EPI)AfAm (>60 ml/min/1.73 sqM) Est GFR (CKD-EPI)NonAf (>60 ml/min/1.73 sqM) Glucose (74-99) mg/dL Plasma Lactic Acid Chacorta (0.7-2.0) mmol/L Calcium (8.4-10.2) mg/dL Magnesium (1.6-2.3) mg/dL Total Bilirubin (0.2-1.3) mg/dL AST (17-59) U/L ALT (4-49) U/L Alkaline Phosphatase (38-126) U/L Troponin I <0.012 (0.000-0.034) ng/mL NT-Pro-B Natriuret Pep 41 pg/mL Total Protein (6.3-8.2) g/dL Albumin (3.5-5.0) g/dL Coronavirus (PCR) (Not Detectd) Influenza Type A RNA (Not Detectd) Influenza Type B (PCR) (Not Detectd) 07/26/21 07/26/21 Range/Units 14:32 14:32 WBC (3.8-10.6) k/uL RBC (4.30-5.90) m/uL Hgb (13.0-17.5) gm/dL Hct (39.0-53.0) % MCV (80.0-100.0) fL MCH (25.0-35.0) pg MCHC (31.0-37.0) g/dL RDW (11.5-15.5) % Plt Count (150-450) k/uL MPV Neutrophils % % Lymphocytes % % Monocytes % % Eosinophils % % Basophils % % Neutrophils # (1.3-7.7) k/uL Lymphocytes # (1.0-4.8) k/uL Monocytes # (0-1.0) k/uL Eosinophils # (0-0.7) k/uL Basophils # (0-0.2) k/uL PT (9.0-12.0) sec INR (<1.2) APTT (22.0-30.0) sec D-Dimer (<0.60) mg/L FEU Sodium (137-145) mmol/L Potassium (3.5-5.1) mmol/L Chloride (98-107) mmol/L Carbon Dioxide (22-30) mmol/L Anion Gap mmol/L BUN (9-20) mg/dL Creatinine (0.66-1.25) mg/dL Est GFR (CKD-EPI)AfAm (>60 ml/min/1.73 sqM) Est GFR (CKD-EPI)NonAf (>60 ml/min/1.73 sqM) Glucose (74-99) mg/dL Plasma Lactic Acid Chacorta (0.7-2.0) mmol/L Calcium (8.4-10.2) mg/dL Magnesium (1.6-2.3) mg/dL Total Bilirubin (0.2-1.3) mg/dL AST (17-59) U/L ALT (4-49) U/L Alkaline Phosphatase (38-126) U/L Troponin I (0.000-0.034) ng/mL NT-Pro-B Natriuret Pep pg/mL Total Protein (6.3-8.2) g/dL Albumin (3.5-5.0) g/dL Coronavirus (PCR) Detected A (Not Detectd) Influenza Type A RNA Not Detected (Not Detectd) Influenza Type B (PCR) Not Detected (Not Detectd) - EKG Data -: EKG Interpreted by Me EKG shows normal: sinus rhythm EKG Comments: Sinus rhythm a 67 ND interval 239 QRS duration 116 QT/QTC 429/445 nonspecific inferior configuration - Radiology Data Radiology results: report reviewed (Imaging reviewed no PE there is evidence of a sternal fracture not seen on a previous scan with a small hematoma please had a complete report.), image reviewed Disposition Clinical Impression: COVID-19, COPD exacerbation, Sternal fracture Disposition: HOME SELF-CARE Condition: Good Instructions (If sedation given, give patient instructions): COPD (Chronic Obstructive Pulmonary Disease) (ED), How to Recover from COVID-19 at Home (ED), Face Coverings (Masks) and COVID-19 (ED), COVID-19 (Coronavirus Disease 2019) (ED) Additional Instructions: Vitamin C 1000 mg per day, vitamin D3 0935-4163 international units per day, zinc supplement and plenty of oral fluids Prescriptions: predniSONE [Deltasone] 20 mg PO BID #10 tab Is patient prescribed a controlled substance at d/c from ED?: No Referrals: Miki Nava DO [Primary Care Provider] - 1-2 days Decision Date: 07/26/21 Decision Time: 18:00
[2021-07-26] MEDS ORDERED: HYDROmorphone 1 MG/ML 1 ML SYRINGE IVP STA ×2 (13:27→16:34)
[2021-07-26 13:43] LABS: Basophils # (A) 0.1 k/uL (0-0.2); Basophils % (A) 1 %; Eosinophils # (A) 0.1 k/uL (0-0.7); Eosinophils % (A) 2 %; HCT 42.1 % (39.0-53.0); HGB 15.3 gm/dL (13.0-17.5); Lymphocytes # (A) 1.2 k/uL (1.0-4.8); Lymphocytes % (A) 18 %; MCH 31.3 pg (25.0-35.0); MCHC 36.3 g/dL (31.0-37.0); MCV 86.3 fL (80.0-100.0); Mean Platelet Volume 7.8; Monocytes # (A) 0.5 k/uL (0-1.0); Monocytes % (A) 7 %; Neutrophils # (A) 4.8 k/uL (1.3-7.7); Neutrophils % (A) 72 %; Platelet Count 252 k/uL (150-450); RBC 4.88 m/uL (4.30-5.90); RDW 12.8 % (11.5-15.5); WBC 6.7 k/uL (3.8-10.6)
[2021-07-26 14:10] LABS: Albumin 5.2 g/dL (3.5-5.0); Calcium 10.2 mg/dL (8.4-10.2); Total Bilirubin 1.8 mg/dL (0.2-1.3); Total Protein 8.6 g/dL (6.3-8.2)
[2021-07-26 14:16] LABS: Magnesium 2.3 mg/dL (1.6-2.3); Potassium 4.4 mmol/L (3.5-5.1)
--- NOTE | 2021-07-26 14:31 | XR ---
EXAMINATION TYPE: XR chest 2V DATE OF EXAM: 07/26/2021 COMPARISON: NONE HISTORY: Chest pain TECHNIQUE: 2 views FINDINGS: Heart is normal. Lungs are clear of infiltrate. No heart failure. Bony thorax is intact. Th ere are chest leads IMPRESSION: Normal chest. No change.
[2021-07-26 14:48] LABS: Partial Thromboplastin Time 22.7 sec (22.0-30.0); Prothrombin Time 10.6 sec (9.0-12.0)
[2021-07-26] MEDS ORDERED: SODIUM CHLORIDE 0.9% 500 ML 500 ML IV STA (15:53)
[2021-07-26] MEDS ORDERED: BEBTELOVIMAB (EUA) 175 MG/2 ML VIAL IV ONE (16:00)
--- NOTE | 2021-07-26 16:29 | CT ---
EXAMINATION TYPE: CT angio chest DATE OF EXAM: 07/26/2021 COMPARISON: 07/11/2021 HISTORY: SOB. PE susupected CT DLP: 502.6 mGycm Automated exposure control for dose reduction was used. CONTRAST: Performed with IV Contrast, patient injected with 80 mL of Isovue 370. There are Three-D postprocessed images. There is some mild reticular interstitial density at the posterior lung bases. Heart size is normal. No pericardial effusion. No pleural effusion. Thoracic aorta is intact. No aneurysm or dissection. The ascending aorta measures 3.5 cm. There is normal contrast opacification of the pulmonary arteries. No filling defect. There are no hil ar masses. The thoracic spine is intact. No compression fracture. There is mild spurring in the lower thoracic s pine. There is nondisplaced fracture of the body of the sternum. There is some mild increased retrost ernal density consistent with a small hematoma. This measures up to 1 cm in thickness. IMPRESSION: No evidence of pulmonary embolism. Minimal subsegmental atelectasis at the lung bases. Nondisplaced sternal fracture with small retrosternal hematoma which appears new compared to old exam .
[2021-07-26] MEDS ORDERED: ALBUTEROL HFA INHALER INHALATION STA (17:01)
[2021-07-26 18:35] VITALS: BP 123/65; PULSE 78; RESP 18
== END 2021-07-26 18:34 | disposition home or self-care (01) ==
LOC: EC 12:04
DX: S22.20XA Unspecified fracture of sternum, initial encounter for closed fracture (principal); U07.1 COVID-19; J44.1 Chronic obstructive pulmonary disease with (acute) exacerbation; E03.9 Hypothyroidism, unspecified; I11.0 Hypertensive heart disease with heart failure; I50.9 Heart failure, unspecified; M19.90 Unspecified osteoarthritis, unspecified site; Z87.891 Personal history of nicotine dependence; Z88.8 Allergy status to other drugs, medicaments and biological substances; Z79.890 Hormone replacement therapy; Z79.899 Other long term (current) drug therapy; X58.XXXA Exposure to other specified factors, initial encounter
CPT/HCPCS: 36415; 93005; 85379; 83880; 80053; 83605; 83735; 84484; 85025; 85610; 85730; 87040; 87502; 87635; 71046; 71275; 99285; 96374; 96376; 96361; J1170; Q9967; Q0222

== ENCOUNTER → 2021-08-24 | Outpatient (CLI) | payer MEDICARE ==
--- NOTE | 2021-08-24 12:05 | XR ---
EXAMINATION TYPE: XR chest 2V DATE OF EXAM: 08/24/2021 COMPARISON: 07/26/2021 TECHNIQUE: PA and lateral views submitted. HISTORY: Pain FINDINGS: Hyperinflation. Subsegmental changes at the lung bases. No pleural effusion or pneumothorax. Hypertro phic degenerative changes of the spine. Atherosclerotic change aorta. IMPRESSION: 1. COPD with basilar atelectasis favored over infiltrate.
--- NOTE | 2021-08-24 12:06 | XR ---
EXAMINATION TYPE: XR sternum DATE OF EXAM: 08/24/2021 COMPARISON: NONE HISTORY: Pain TECHNIQUE: 2 views submitted FINDINGS: Study was grossly intact however cannot exclude a subtle deformity of the body of the daniel um. Correlate with point tenderness. IMPRESSION: Exclude a subtle Department of body of the sternum. Correlate with point tenderness. If p oint tender recommend CT scan chest.
== END | disposition home or self-care (01) ==
LOC: RADXRMAIN 11:28
PROVIDERS: ATTEND Family Medicine
DX: S22.20XA Unspecified fracture of sternum, initial encounter for closed fracture (principal); J44.9 Chronic obstructive pulmonary disease, unspecified; J98.11 Atelectasis
CPT/HCPCS: 71046; 71120

== ENCOUNTER 2021-09-07 20:44 | Inpatient (IN) | payer MEDICARE ==
[2021-09-07] MEDS ORDERED: DILTIAZEM DRIP BOLUS FROM BAG 1 MG SOLN IV ONE (21:11)
--- NOTE | 2021-09-07 21:13 | ED ---
SOB HPI - General Chief Complaint: Shortness of Breath Stated Complaint: JOSEF Time Seen by Provider: 09/07/21 21:11 Source: patient Mode of arrival: wheelchair Limitations: no limitations - Related Data Home Medications Medication Instructions Recorded Confirmed cloNIDine HCL 0.1 mg PO BID 11/16/15 09/07/21 Levothyroxine Sodium [Synthroid] 75 mcg PO DAILY 05/04/16 09/07/21 Omeprazole 20 mg PO BID 05/04/16 09/07/21 Escitalopram [Lexapro] 20 mg PO DAILY 12/16/16 09/07/21 amLODIPine [Norvasc] 5 mg PO DAILY 02/07/18 09/07/21 Nitroglycerin Sl Tabs [Nitrostat] 0.4 mg SL Q5M PRN 07/23/21 09/07/21 Baclofen 10 mg PO BID PRN 09/07/21 09/07/21 Previous Rx's Medication Instructions Recorded Ticagrelor [Brilinta] 90 mg PO BID #60 tab 06/19/19 Allergies Allergy/AdvReac Type Severity Reaction Status Date / Time rivaroxaban [From Xarelto] AdvReac Severe Nausea & Verified 09/07/21 22:51 Vomiting & Diarrhea paroxetine HCl [From Paxil] AdvReac Unknown Nausea & Verified 09/07/21 22:51 Vomiting & Diarrhea apixaban [From Eliquis] AdvReac Nausea & Verified 09/07/21 22:51 Vomiting & Diarrhea atorvastatin [From Lipitor] AdvReac Nausea & Verified 09/07/21 22:51 Vomiting & Diarrhea Beta-Blockers AdvReac Nausea & Verified 09/07/21 22:51 (Beta-Adrenergic Bloc Vomiting & Diarrhea gabapentin AdvReac Nausea & Verified 09/07/21 22:51 Vomiting & Diarrhea Mzckwjj-OVV-LvT Reductase AdvReac Nausea & Verified 09/07/21 22:51 Inhibitor Vomiting & Diarrhea warfarin AdvReac Nausea & Verified 09/07/21 22:51 Vomiting & Diarrhea Review of Systems ROS Statement: Those systems with pertinent positive or pertinent negative responses have been documented in the HPI. ROS Other: All systems not noted in ROS Statement are negative. Past Medical History Past Medical History: Coronary Artery Disease (CAD), Chest Pain / Angina, Deep Vein Thrombosis (DVT), GERD/Reflux, GI Bleed, Hyperlipidemia, Hypertension, Myocardial Infarction ([place]), Musculoskeletal Disorder, Osteoarthritis ([place]), Pneumonia, Renal Disease, Syncope, Thyroid Disorder Additional Past Medical History / Comment(s): Episodes of acute renal failure associated with dehydration, diverticulitis, IBS, return of hiatal hernia, bronchitis, hypothyroid, chronic low back pain with bilateral sciatica, lumbar DDD, past migraines, DJD, NT Lt foot, 4 DVTs L leg surgically removed. covid + July 2021 Last Myocardial Infarction Date:: 06/2019 History of Any Multi-Drug Resistant Organisms: None Reported Past Surgical History: Back Surgery, Cholecystectomy, Heart Catheterization, Heart Catheterization With Stent, Hernia Repair, Orthopedic Surgery Additional Past Surgical History / Comment(s): Back fusions L3-L5, ORIF L ankle, L hand fracture with surgery, R knee arthroscopy x2, R elbow tendon release, R shoulder arthroscopy, lumbar spine cyst removed, pain clinic procedures, taylor fundoplication, EGD, colonoscopy, 2019 arteriogram/thrombus extraction at [facility]. PTCA w/ 3 stents now Past Anesthesia/Blood Transfusion Reactions: No Reported Reaction Date of Last Stent Placement:: 2019 Past Psychological History: No Psychological Hx Reported, Depression Smoking Status: Former smoker Past Alcohol Use History: Occasional Past Drug Use History: Marijuana - Past Family History Mother Family Medical History: Thyroid Disorder Additional Family Medical History / Comment(s): Mother is living. Father Family Medical History: Coronary Artery Disease (CAD), Diabetes Mellitus Additional Family Medical History / Comment(s): Father had CABG. He at the age of 84 yrs in a MVA. Sister(s) Family Medical History: Cancer Additional Family Medical History / Comment(s): SKIN CA/ #2 sister had thyroid cancer General Exam Limitations: no limitations Course Vital Signs 09/07/21 09/07/21 09/07/21 20:55 22:00 23:00 Temperature 98.1 F Pulse Rate 138 H 98 96 Respiratory 40 H 18 18 Rate Blood Pressure 156/107 150/87 148/99 O2 Sat by Pulse 95 92 L 92 L Oximetry Medical Decision Making - Lab Data Result diagrams: 09/07/21 21:12 09/07/21 21:12 Lab Results 09/07/21 09/07/21 09/07/21 Range/Units 21:12 21:12 21:12 WBC 17.6 H (3.8-10.6) k/uL RBC 5.85 (4.30-5.90) m/uL Hgb 18.2 H (13.0-17.5) gm/dL Hct 52.5 (39.0-53.0) % MCV 89.7 (80.0-100.0) fL MCH 31.1 (25.0-35.0) pg MCHC 34.7 (31.0-37.0) g/dL RDW 13.8 (11.5-15.5) % Plt Count 387 (150-450) k/uL MPV 7.6 Neutrophils % 83 % Lymphocytes % 10 % Monocytes % 5 % Eosinophils % 0 % Basophils % 0 % Neutrophils # 14.6 H (1.3-7.7) k/uL Lymphocytes # 1.7 (1.0-4.8) k/uL Monocytes # 0.8 (0-1.0) k/uL Eosinophils # 0.1 (0-0.7) k/uL Basophils # 0.1 (0-0.2) k/uL PT 10.8 (9.0-12.0) sec INR 1.0 (<1.2) APTT 23.7 (22.0-30.0) sec Sodium 137 (137-145) mmol/L Potassium 4.4 (3.5-5.1) mmol/L Chloride 100 (98-107) mmol/L Carbon Dioxide 10 L (22-30) mmol/L Anion Gap 27 mmol/L BUN 28 H (9-20) mg/dL Creatinine 3.28 H (0.66-1.25) mg/dL Est GFR (CKD-EPI)AfAm 21 (>60 ml/min/1.73 sqM) Est GFR (CKD-EPI)NonAf 18 (>60 ml/min/1.73 sqM) Glucose 183 H (74-99) mg/dL Calcium 12.8 H (8.4-10.2) mg/dL Magnesium 1.9 (1.6-2.3) mg/dL Total Bilirubin 1.2 (0.2-1.3) mg/dL AST 33 (17-59) U/L ALT 42 (4-49) U/L Alkaline Phosphatase 156 H (38-126) U/L Troponin I (0.000-0.034) ng/mL NT-Pro-B Natriuret Pep pg/mL Total Protein 10.6 H (6.3-8.2) g/dL Albumin 6.0 H (3.5-5.0) g/dL 09/07/21 09/07/21 Range/Units 21:12 21:12 WBC (3.8-10.6) k/uL RBC (4.30-5.90) m/uL Hgb (13.0-17.5) gm/dL Hct (39.0-53.0) % MCV (80.0-100.0) fL MCH (25.0-35.0) pg MCHC (31.0-37.0) g/dL RDW (11.5-15.5) % Plt Count (150-450) k/uL MPV Neutrophils % % Lymphocytes % % Monocytes % % Eosinophils % % Basophils % % Neutrophils # (1.3-7.7) k/uL Lymphocytes # (1.0-4.8) k/uL Monocytes # (0-1.0) k/uL Eosinophils # (0-0.7) k/uL Basophils # (0-0.2) k/uL PT (9.0-12.0) sec INR (<1.2) APTT (22.0-30.0) sec Sodium (137-145) mmol/L Potassium (3.5-5.1) mmol/L Chloride (98-107) mmol/L Carbon Dioxide (22-30) mmol/L Anion Gap mmol/L BUN (9-20) mg/dL Creatinine (0.66-1.25) mg/dL Est GFR (CKD-EPI)AfAm (>60 ml/min/1.73 sqM) Est GFR (CKD-EPI)NonAf (>60 ml/min/1.73 sqM) Glucose (74-99) mg/dL Calcium (8.4-10.2) mg/dL Magnesium (1.6-2.3) mg/dL Total Bilirubin (0.2-1.3) mg/dL AST (17-59) U/L ALT (4-49) U/L Alkaline Phosphatase (38-126) U/L Troponin I <0.012 (0.000-0.034) ng/mL NT-Pro-B Natriuret Pep 469 pg/mL Total Protein (6.3-8.2) g/dL Albumin (3.5-5.0) g/dL - EKG Data -: EKG Interpreted by Me (EKG a flutter 134 QRS 110 QTc 410) Disposition Clinical Impression: Dehydration, moderate, Intractable vomiting with nausea, Gastroenteritis and colitis, viral, Chest pain, Dehydration, Acute kidney injury (nontraumatic), Renal insufficiency Disposition: ADMITTED IP TO THIS HOSP Condition: Fair Is patient prescribed a controlled substance at d/c from ED?: No Referrals: Miki Nava DO [Primary Care Provider] - 1-2 days
[2021-09-07] MEDS ORDERED: LORazepam 2 MG/ML INJ IV STA (21:24)
[2021-09-07] MEDS ORDERED: HYDROmorphone 1 MG/ML 1 ML SYRINGE IVP STA (21:24)
[2021-09-07] MEDS ORDERED: PROCHLORPERAZINE INJ 10 MG/2 ML VIAL IVP STA (21:24)
[2021-09-07] MEDS ORDERED: SODIUM CHLORIDE 0.9% 1,000 ML IV STA ×2 (21:24→22:57)
[2021-09-07 21:34] LABS: Basophils # (A) 0.1 k/uL (0-0.2); Basophils % (A) 0 %; Eosinophils # (A) 0.1 k/uL (0-0.7); Eosinophils % (A) 0 %; HCT 52.5 % (39.0-53.0); HGB 18.2 gm/dL (13.0-17.5); Lymphocytes # (A) 1.7 k/uL (1.0-4.8); Lymphocytes % (A) 10 %; MCH 31.1 pg (25.0-35.0); MCHC 34.7 g/dL (31.0-37.0); MCV 89.7 fL (80.0-100.0); Mean Platelet Volume 7.6; Monocytes # (A) 0.8 k/uL (0-1.0); Monocytes % (A) 5 %; Neutrophils # (A) 14.6 k/uL (1.3-7.7); Neutrophils % (A) 83 %; Platelet Count 387 k/uL (150-450); RBC 5.85 m/uL (4.30-5.90); RDW 13.8 % (11.5-15.5); WBC 17.6 k/uL (3.8-10.6)
[2021-09-07] MEDS: SODIUM CHLORIDE 0.9% 1,000 ML IV STA (21:38)
[2021-09-07 21:48] LABS: Calcium 12.8 mg/dL (8.4-10.2); Magnesium 1.9 mg/dL (1.6-2.3); Potassium 4.4 mmol/L (3.5-5.1); Total Bilirubin 1.2 mg/dL (0.2-1.3); Total Protein 10.6 g/dL (6.3-8.2)
[2021-09-07 21:50] LABS: Partial Thromboplastin Time 23.7 sec (22.0-30.0); Prothrombin Time 10.8 sec (9.0-12.0)
--- NOTE | 2021-09-07 22:01 | XR ---
EXAMINATION TYPE: XR chest 1V portable DATE OF EXAM: 09/07/2021 COMPARISON: 08/24/2021 HISTORY: Short of breath. Vomiting. TECHNIQUE: Single view FINDINGS: Heart is normal. Lungs are clear of infiltrate. No heart failure. There are chest leads. Co stophrenic angles are clear. IMPRESSION: No active cardiopulmonary disease. Normal heart. No adverse change.
[2021-09-07] MEDS: DILTIAZEM 125 MG in SODIUM CHLORIDE 0.9% 100 ML IV SCH (22:32)
[2021-09-07] MEDS ORDERED: NALOXONE 0.4 MG/ML 1 ML VIAL IV PRN (23:18)
[2021-09-07] MEDS ORDERED: ONDANSETRON 4 MG/2 ML VIAL IVP PRN (23:18)
[2021-09-07] MEDS ORDERED: LORazepam 2 MG/ML INJ IV PRN (23:20)
[2021-09-08] MEDS: HYDROmorphone 1 MG/ML 1 ML SYRINGE IVP PRN (02:39)
[2021-09-08] MEDS: SODIUM CHLORIDE 0.9% 1,000 ML IV SCH ×4 (03:02→22:16)
[2021-09-08 07:39] LABS: Albumin 4.2 g/dL (3.5-5.0); Calcium 9.2 mg/dL (8.4-10.2); Magnesium 1.7 mg/dL (1.6-2.3); Phosphorus 5.3 mg/dL (2.5-4.5); Potassium 4.3 mmol/L (3.5-5.1); Total Bilirubin 0.8 mg/dL (0.2-1.3); Total Protein 6.8 g/dL (6.3-8.2)
[2021-09-08 07:46] LABS: Basophils % (A) 0 %; Eosinophils % (A) 0 %; HCT 40.1 % (39.0-53.0); Lymphocytes # (A) 2.1 k/uL (1.0-4.8); Lymphocytes % (A) 20 %; MCH 31.4 pg (25.0-35.0); MCHC 35.1 g/dL (31.0-37.0); MCV 89.5 fL (80.0-100.0); Mean Platelet Volume 8.3; Monocytes # (A) 0.7 k/uL (0-1.0); Monocytes % (A) 6 %; Neutrophils # (A) 7.7 k/uL (1.3-7.7); Neutrophils % (A) 72 %; Platelet Count 250 k/uL (150-450); RBC 4.48 m/uL (4.30-5.90); RDW 13.7 % (11.5-15.5); WBC 10.7 k/uL (3.8-10.6)
[2021-09-08 07:47] LABS: HGB 14.1 gm/dL (13.0-17.5)
[2021-09-08] MEDS ORDERED: Magnesium Replacement Protocol 1 EACH MISC MISCELLANE PRN (17:21)
[2021-09-08] MEDS ORDERED: BACLOFEN 10 MG TAB PO PRN (20:08)
[2021-09-08] MEDS: DILTIAZEM 125 MG in SODIUM CHLORIDE 0.9% 100 ML IV SCH (21:23)
[2021-09-08] MEDS: TICAGRELOR 90 MG TAB PO SCH (21:30)
[2021-09-08] MEDS: ESCITALOPRAM 20 MG TAB PO SCH (21:31)
[2021-09-08] MEDS: PANTOPRAZOLE 40 MG TABLET PO SCH (21:31)
[2021-09-08] MEDS: amLODIPine 5 MG TAB PO SCH (21:31)
[2021-09-08] MEDS: LEVOTHYROXINE 75 MCG TAB PO SCH (21:32)
[2021-09-08] MEDS: cloNIDine HCL 0.1 MG TAB PO SCH (21:32)
[2021-09-09] MEDS: HYDROmorphone 1 MG/ML 1 ML SYRINGE IVP PRN ×2 (04:41→09:10)
[2021-09-09] MEDS: SODIUM CHLORIDE 0.9% 1,000 ML IV SCH (04:42)
[2021-09-09] MEDS: LEVOTHYROXINE 75 MCG TAB PO SCH (06:55)
[2021-09-09] MEDS: PANTOPRAZOLE 40 MG TABLET PO SCH (06:56)
[2021-09-09] MEDS: amLODIPine 5 MG TAB PO SCH (09:07)
[2021-09-09] MEDS: cloNIDine HCL 0.1 MG TAB PO SCH (09:07)
[2021-09-09] MEDS: TICAGRELOR 90 MG TAB PO SCH (09:07)
[2021-09-09] MEDS: ESCITALOPRAM 20 MG TAB PO SCH (09:07)
[2021-09-09 09:32] LABS: Basophils % (A) 1 %; Eosinophils # (A) 0.1 k/uL (0-0.7); Eosinophils % (A) 2 %; HCT 37.4 % (39.0-53.0); HGB 12.6 gm/dL (13.0-17.5); Lymphocytes % (A) 26 %; MCH 30.2 pg (25.0-35.0); MCHC 33.6 g/dL (31.0-37.0); Mean Platelet Volume 7.4; Monocytes # (A) 0.5 k/uL (0-1.0); Monocytes % (A) 7 %; Neutrophils # (A) 4.8 k/uL (1.3-7.7); Neutrophils % (A) 63 %; Platelet Count 238 k/uL (150-450); RBC 4.15 m/uL (4.30-5.90); RDW 13.1 % (11.5-15.5); WBC 7.6 k/uL (3.8-10.6)
[2021-09-09 09:49] LABS: African American GFR (CKD) >90 (>60 ml/min/1.73 sqM); Anion Gap 7 mmol/L; Blood Urea Nitrogen 17 mg/dL (9-20); Calcium 8.6 mg/dL (8.4-10.2); Carbon Dioxide 21 mmol/L (22-30); Chloride 108 mmol/L (98-107); Glucose 95 mg/dL (74-99); Magnesium 1.7 mg/dL (1.6-2.3); Non-African American GFR(CKD) 85 (>60 ml/min/1.73 sqM); Potassium 4.6 mmol/L (3.5-5.1); Sodium 136 mmol/L (137-145)
[2021-09-09] MEDS ORDERED: MAGNESIUM SULFATE-D5W PMX 1 GM in DEXTROSE/WATER 1 100ML.BAG IVPB ONE (12:00)
[2021-09-09 12:16] VITALS: BP 129/74; PULSE 80; RESP 18; TEMP 97.9
--- NOTE | 2021-09-09 17:08 | P.HPIM ---
History of Present Illness H&P Date: 09/09/21 Chief Complaint: Nausea, vomiting, A. fib with RVR This is a 66-year-old gentleman with past medical history of recent fall breaking sternum approximately 2-1/2 months ago secondary to fall , recent COVID-19 in July 2021 ,CAD, CA, gastroesophageal reflux disease, hypertension, hyperlipidemia, hypothyroidism, chronic renal failure, former smoker, former THC use, lumbar spondylosis, intolerance to anticoagulation except Brilenta. and multiple other medical issues presented to the ER with nausea, vomiting, increased weakness. Denies alcohol intake-reports last beer consumed 2 weeks ago. Denies abdominal pain. Denies chest pain, palpitations. Denies syncope. Tachycardic, tachypneic on admission with WBC 17.6 ,BUN of 28, creatinine 3.28, alk phos 156.currently sinus rhythm , respiratory status stable, maintaining O2 sats in the high 90s on room air .IV fluid hydration initiated, WBC decreased to 10.7 ,renal function improving with creatinine down to 1.71, alk phos within normal limits, nausea, vomiting has subsided .afebrile.chest x-ray reporting no acute cardiopulmonary disease. Magnesium 1.9, 1.7 . Review of Systems ROS Statement: Those systems with pertinent positive or pertinent negative responses have been documented in the HPI. ROS Other: All systems not noted in ROS Statement are negative. Past Medical History Past Medical History: Coronary Artery Disease (CAD), Chest Pain / Angina, Deep Vein Thrombosis (DVT), GERD/Reflux, GI Bleed, Hyperlipidemia, Hypertension, Myocardial Infarction (CA), Musculoskeletal Disorder, Osteoarthritis (OA), Pneumonia, Renal Disease, Syncope, Thyroid Disorder Additional Past Medical History / Comment(s): Episodes of acute renal failure associated with dehydration, diverticulitis, IBS, return of hiatal hernia, bronchitis, hypothyroid, chronic low back pain with bilateral sciatica, lumbar DDD, past migraines, DJD, NT Lt foot, 4 DVTs L leg surgically removed. covid + July 2021 Last Myocardial Infarction Date:: 06/2019 History of Any Multi-Drug Resistant Organisms: None Reported Past Surgical History: Back Surgery, Cholecystectomy, Heart Catheterization, Heart Catheterization With Stent, Hernia Repair, Orthopedic Surgery Additional Past Surgical History / Comment(s): Back fusions L3-L5, ORIF L ankle, L hand fracture with surgery, R knee arthroscopy x2, R elbow tendon release, R shoulder arthroscopy, lumbar spine cyst removed, pain clinic procedures, taylor fundoplication, EGD, colonoscopy, 2019 arteriogram/thrombus extraction at [facility]. PTCA w/ 3 stents now Past Anesthesia/Blood Transfusion Reactions: No Reported Reaction Date of Last Stent Placement:: 2019 Past Psychological History: No Psychological Hx Reported, Depression Additional Psychological History / Comment(s): . Smoking Status: Former smoker Past Alcohol Use History: Occasional Additional Past Alcohol Use History / Comment(s): Smoked from 1971 to 1983 SMOKED 1PPD Past Drug Use History: Marijuana Additional Drug Use History / Comment(s): MEDICAL marijuana - daily. Pt states he used opiates in the past- does not take since 2014 - - Past Family History Mother Family Medical History: Thyroid Disorder Additional Family Medical History / Comment(s): Mother is living. Father Family Medical History: Coronary Artery Disease (CAD), Diabetes Mellitus Additional Family Medical History / Comment(s): Father had CABG. He at the age of 84 yrs in a MVA. Sister(s) Family Medical History: Cancer Additional Family Medical History / Comment(s): SKIN CA/ #2 sister had thyroid cancer Medications and Allergies Home Medications Medication Instructions Recorded Confirmed Type cloNIDine HCL 0.1 mg PO BID 11/16/15 09/07/21 History Levothyroxine Sodium [Synthroid] 75 mcg PO DAILY 05/04/16 09/07/21 History Omeprazole 20 mg PO BID 05/04/16 09/07/21 History Escitalopram [Lexapro] 20 mg PO DAILY 12/16/16 09/07/21 History amLODIPine [Norvasc] 5 mg PO DAILY 02/07/18 09/07/21 History Ticagrelor [Brilinta] 90 mg PO BID #60 tab 06/19/19 09/07/21 Rx Nitroglycerin Sl Tabs [Nitrostat] 0.4 mg SL Q5M PRN 07/23/21 09/07/21 History Baclofen 10 mg PO BID PRN 09/07/21 09/07/21 History Allergies Allergy/AdvReac Type Severity Reaction Status Date / Time rivaroxaban [From Xarelto] AdvReac Severe Nausea & Verified 09/07/21 22:51 Vomiting & Diarrhea paroxetine HCl [From Paxil] AdvReac Unknown Nausea & Verified 09/07/21 22:51 Vomiting & Diarrhea apixaban [From Eliquis] AdvReac Nausea & Verified 09/07/21 22:51 Vomiting & Diarrhea atorvastatin [From Lipitor] AdvReac Nausea & Verified 09/07/21 22:51 Vomiting & Diarrhea Beta-Blockers AdvReac Nausea & Verified 09/07/21 22:51 (Beta-Adrenergic Bloc Vomiting & Diarrhea gabapentin AdvReac Nausea & Verified 09/07/21 22:51 Vomiting & Diarrhea Rmbimbs-HCD-LmV Reductase AdvReac Nausea & Verified 09/07/21 22:51 Inhibitor Vomiting & Diarrhea warfarin AdvReac Nausea & Verified 09/07/21 22:51 Vomiting & Diarrhea Physical Exam Vitals: Vital Signs Temp Pulse Pulse Resp BP Pulse Ox 09/09/21 08:00 97.8 F 65 16 152/92 96 09/09/21 04:00 97.7 F 70 18 135/79 96 09/09/21 02:00 80 16 09/09/21 00:00 98.9 F 80 16 116/70 97 09/08/21 20:21 98.1 F 77 18 158/81 97 09/08/21 20:00 77 18 09/08/21 16:00 97.8 F 73 20 183/90 98 09/08/21 14:25 67 22 188/79 92 L 09/08/21 14:00 22 Intake and Output 09/08/21 09/09/21 09/09/21 22:59 06:59 14:59 Intake Total 450 358 Balance 450 358 Intake: Intake, IV Titration 200 Amount Sodium Chloride 0.9% 1, 200 000 ml @ 130 mls/hr IV . [facility] Rx#:[id number] Oral 250 358 Other: # Voids 1 2 GENERAL: This is a -66 year-old in no apparent distress at the time of examination. Pleasant and cooperative. HEENT: Head is atraumatic, normocephalic. Pupils are equal, round, and reactive to light. Sclerae anicteric. Conjunctivae are clear. Mucus membranes of the mouth are moist. Neck is supple. RESPIRATORY: Clear to auscultation. No wheezing, No rales, or rhonchi. No use of accessory muscles. Minimal chest wall tenderness noted on palpation, none with deep breathing. CARDIOVASCULAR: Regular rate and rhythm. S1 and S2 noted. No systolic or d iastolic murmur auscultated. No JVD noted. No S3 or S4 noted. GASTROINTESTINAL: No distention noted. Abdomen soft and round, nontender. Positive diastasis recti. Normal active bowel sounds auscultated x 4 quadrants. INTEGUMENTARY: No cyanosis. No jaundice. No rashes noted. No cellulitis noted. EXTREMITIES: 2+ peripheral pulses. No evidence of peripheral edema. No calf tenderness noted. NEUROLOGIC: Cranial nerves II-XII intact. PSYCHIATRIC: Awake, alert, and oriented X 3. Appropriate affect. Intact judgement and insight. Results CBC & Chem 7: 09/09/21 08:48 09/09/21 08:48 Labs: Abnormal Lab Results - Last 24 Hours (Table) 09/09/21 09/09/21 Range/Units 08:48 08:48 RBC 4.15 L (4.30-5.90) m/uL Hgb 12.6 L (13.0-17.5) gm/dL Hct 37.4 L (39.0-53.0) % Sodium 136 L (137-145) mmol/L Chloride 108 H (98-107) mmol/L Carbon Dioxide 21 L (22-30) mmol/L Thrombosis Risk Factor Assmnt - Choose All That Apply Each Factor Represents 1 point: Obesity (BMI >25) Each Risk Factor Represents 3 Points: History of DVT/PE Other congenital or acquired thrombophilia - If yes, enter type in comment: No Thrombosis Risk Factor Assessment Total Risk Factor Score: 4 Thrombosis Risk Factor Assessment Level: Moderate Risk Assessment and Plan Assessment: Nausea, vomiting, secondary to dehydration, acute renal failure with ATN. Resolved with IV fluid hydration. Possibly secondary to cannabinoid hyperemesis syndrome, in a patient who uses daily medical marijuana. A. fib with RVR, converted to sinus rhythm. Chronic renal failure stage IV Hypothyroidism CAD, history of CA Recovering opioid dependency- no opioids Chronic back pain with spondylosis of lumbar region without myelopathy, recent bilateral radiofrequency thermal coagulation L2, L3 and L5 medial branch 06/27/[address] Barger. Hypertension Hyperlipidemia, intolerant of statins History of Coumadin toxicity, lower GI bleed, unable to tolerate aspirin, Coumadin, Eliquis or Xarelto secondary to multiple symptoms including cramping, hematuria Former nicotine dependence Plan: Continue on current medication regime ,monitoring and symptomatic treatment. IV fluid hydration. Close monitoring of renal function with repeat labs ordered for a.m. Patient is intolerant of anticoagulation except for Brilenta.advancement of diet as tolerated. Discharge planning in progress for tomorrow pending continued improvement. The impression and plan of care has been dictated as directed. : I performed a history and examination of this patient, discussed the same with the dictator. I agree with the dictator's note ,documented as a scribe. Any additional findings or plans will be noted.
--- NOTE | 2021-09-09 17:16 | P.DS ---
Providers Date of admission: 09/07/21 23:18 Expected date of discharge: 09/09/21 Attending physician: Miki Nava Primary care physician: Miki Nava [facility] Course: Final Diagnoses: Nausea, vomiting, secondary to dehydration, acute renal failure with ATN. Resolved with IV fluid hydration. Possibly secondary to cannabinoid hyperemesis syndrome, in a patient who uses daily medical marijuana. Chronic renal failure stage IV Hypothyroidism CAD, history of VA Recovering opioid dependency- no opioids Chronic back pain with spondylosis of lumbar region without myelopathy, recent bilateral radiofrequency thermal coagulation L2, L3 and L5 medial branch 06/27/[address] Barger. Hypertension Hyperlipidemia, intolerant of statins History of Coumadin toxicity, lower GI bleed, unable to tolerate aspirin, Coumadin, Eliquis or Xarelto secondary to multiple symptoms including cramping, hematuria Former nicotine dependence Hospital course:This is a 66-year-old gentleman with past medical history of recent fall breaking sternum approximately 2-1/2 months ago secondary to fall , recent COVID-19 in July 2021 ,CAD, VA, gastroesophageal reflux disease, hypertension, hyperlipidemia, hypothyroidism, chronic renal failure, former smoker, former THC use, lumbar spondylosis, intolerance to anticoagulation except Brilenta. and multiple other medical issues presented to the ER with nausea, vomiting, increased weakness. Denies alcohol intake-reports last beer consumed 2 weeks ago. Denies abdominal pain. Denies chest pain, palpitations. Denies syncope. Tachycardic, tachypneic on admission with WBC 17.6 ,BUN of 28, creatinine 3.28, alk phos 156.currently sinus rhythm , respiratory status stable, maintaining O2 sats in the high 90s on room air .IV fluid hydration initiated, WBC decreased to 10.7 ,renal function improving with creatinine down to 1.71, alk phos within normal limits, nausea, vomiting has subsided .afebrile.chest x-ray reporting no acute cardiopulmonary disease. Magnesium 1.9, 1.7 . Maintained on IV fluid hydration. Tolerated diet advancement with no further nausea vomiting. Denies diarrhea. Denies abdominal pain. WBC and renal function normalized. Denies chest pain, palpitations or shortness of breath. Denies lightheadedness dizziness or focal deficits. Ambulating in room, tolerating exertion well.Eager for dc home. Patient will be discharged home today in a stable condition with guarded prognosis. The impression and plan of care has been dictated as directed. : I performed a history and examination of this patient, discussed the same with the dictator. I agree with the dictator's note ,documented as a scribe. Any additional findings or plans will be noted. Patient Condition at Discharge: Stable Plan - Discharge Summary Discharge Rx Participant: Yes New Discharge Prescriptions: Continue cloNIDine HCL 0.1 mg PO BID Levothyroxine Sodium [Synthroid] 75 mcg PO DAILY Omeprazole 20 mg PO BID Escitalopram [Lexapro] 20 mg PO DAILY amLODIPine [Norvasc] 5 mg PO DAILY Ticagrelor [Brilinta] 90 mg PO BID #60 tab Baclofen 10 mg PO BID PRN PRN Reason: Muscle Spasm Nitroglycerin Sl Tabs [Nitrostat] 0.4 mg SL Q5M PRN PRN Reason: Chest Pain Discharge Medication List cloNIDine HCL 0.1 mg PO BID 11/16/15 [History] Levothyroxine Sodium [Synthroid] 75 mcg PO DAILY 05/04/16 [History] Omeprazole 20 mg PO BID 05/04/16 [History] Escitalopram [Lexapro] 20 mg PO DAILY 12/16/16 [History] amLODIPine [Norvasc] 5 mg PO DAILY 02/07/18 [History] Ticagrelor [Brilinta] 90 mg PO BID #60 tab 06/19/19 [Rx] Nitroglycerin Sl Tabs [Nitrostat] 0.4 mg SL Q5M PRN 07/23/21 [History] Baclofen 10 mg PO BID PRN 09/07/21 [History] Follow up Appointment(s)/Referral(s): Miki Nava DO [Primary Care Provider] - 09/11/21 10:40 am Patient Instructions/Handouts: A-fib (Atrial Fibrillation) (DC) Discharge Disposition: HOME SELF-CARE
== END 2021-09-09 14:20 | disposition home or self-care (01) | DRG 684 ==
LOC: EC 20:44 → 3SCARD 23:18
PROVIDERS: ADMIT Family Medicine; ATTEND Family Medicine
DX: N17.0 Acute kidney failure with tubular necrosis (principal); R11.2 Nausea with vomiting, unspecified; N18.4 Chronic kidney disease, stage 4 (severe); I10 Essential (primary) hypertension; E86.0 Dehydration; R07.9 Chest pain, unspecified; I25.10 Atherosclerotic heart disease of native coronary artery without angina pectoris; E78.5 Hyperlipidemia, unspecified; K21.9 Gastro-esophageal reflux disease without esophagitis; K58.9 Irritable bowel syndrome, unspecified; E03.9 Hypothyroidism, unspecified; M54.32 Sciatica, left side; M54.31 Sciatica, right side; M51.36 Other intervertebral disc degeneration, lumbar region; M19.90 Unspecified osteoarthritis, unspecified site; J40 Bronchitis, not specified as acute or chronic; I25.2 Old myocardial infarction; T40.711A Poisoning by cannabis, accidental (unintentional), initial encounter; Z82.49 Family history of ischemic heart disease and other diseases of the circulatory system; G43.909 Migraine, unspecified, not intractable, without status migrainosus; G89.29 Other chronic pain; I12.9 Hypertensive chronic kidney disease with stage 1 through stage 4 chronic kidney disease, or unspecified chronic kidney disease; M47.816 Spondylosis without myelopathy or radiculopathy, lumbar region; R00.0 Tachycardia, unspecified; R06.82 Tachypnea, not elsewhere classified; Z95.5 Presence of coronary angioplasty implant and graft; Z88.8 Allergy status to other drugs, medicaments and biological substances; Z79.890 Hormone replacement therapy; Z79.899 Other long term (current) drug therapy; Z79.02 Long term (current) use of antithrombotics/antiplatelets; Z87.898 Personal history of other specified conditions; Z87.01 Personal history of pneumonia (recurrent); Z87.19 Personal history of other diseases of the digestive system; Z86.16 Personal history of COVID-19; Z87.891 Personal history of nicotine dependence; Z83.49 Family history of other endocrine, nutritional and metabolic diseases; Z80.8 Family history of malignant neoplasm of other organs or systems; I48.91 Unspecified atrial fibrillation; Z83.3 Family history of diabetes mellitus; Z90.49 Acquired absence of other specified parts of digestive tract
CPT/HCPCS: 36415; 71045; 80048; 80053; 83735; 83880; 84100; 84484; 85025; 85610; 85730; 93005; 96361; 96374; 96375; 96376; 99285

== ENCOUNTER → 2021-09-15 | Outpatient (CLI) | payer MEDICARE ==
[2021-09-15 18:21] LABS: African American GFR (CKD) 102.1 (60.0-200.0); Anion Gap 11.4 mmol/L (10.00-18.00); BUN/Creat Ratio 14.44 Ratio (12.00-20.00); Calcium 9.7 mg/dL (8.7-10.3); Carbon Dioxide 21.6 mmol/L (20.0-27.5); Non-African American GFR(CKD) 88.1 (60.0-200.0); Potassium 4.1 mmol/L (3.5-5.5)
[2021-09-15 18:26] LABS: Basophils # (A) 0.04 X 10*3/uL (0.00-0.10); Basophils % (A) 0.6 %; Eosinophils # (A) 0.15 X 10*3/uL (0.04-0.35); Eosinophils % (A) 2.1 %; HCT 40.8 % (39.6-50.0); HGB 13.8 g/dL (13.0-17.0); Immature Grans, Automated 0.6 %; Lymphocytes # (A) 1.85 X 10*3/uL (0.90-5.00); Lymphocytes % (A) 26.2 %; MCH 29.8 pg (27.0-32.0); MCHC 33.8 g/dL (32.0-37.0); MCV 88.1 fL (80.0-97.0); Mean Platelet Volume 10.2 fL (9.5-12.2); Monocytes # (A) 0.62 X 10*3/uL (0.20-1.00); Monocytes % (A) 8.8 %; NRBC Per 100 WBC 0 /100 WBCS (0.0-0.0); Neutrophils # (A) 4.37 X 10*3/uL (1.80-7.70); Neutrophils % (A) 61.7 %; Platelet Count 293 X 10*3/uL (140-440); RBC 4.63 X 10*6/uL (4.40-5.60); RDW 13.2 % (11.5-14.5); WBC 7.07 X 10*3/uL (4.50-10.00)
[2021-09-15 19:19] LABS: INR 0.94 (0.90-1.11); Prothrombin Time 10.6 sec (9.9-11.9)
== END | disposition home or self-care (01) ==
LOC: LABPAT 11:19
PROVIDERS: ATTEND Orthopaedic Surgery
DX: Z01.812 Encounter for preprocedural laboratory examination (principal); M17.11 Unilateral primary osteoarthritis, right knee; Z22.322 Carrier or suspected carrier of Methicillin resistant Staphylococcus aureus
CPT/HCPCS: 80048; 85025; 85610; 87070

== ENCOUNTER 2021-10-15 03:11 | Inpatient (IN) | payer MEDICARE ==
[2021-10-15] MEDS ORDERED: diphenhydrAMINE 50 MG/ML 1 ML VIAL IVP STA (03:26)
[2021-10-15] MEDS ORDERED: HYDROmorphone 1 MG/ML 1 ML SYRINGE IVP STA (03:26)
[2021-10-15] MEDS ORDERED: LORazepam 2 MG/ML INJ IV STA (03:26)
[2021-10-15] MEDS ORDERED: SODIUM CHLORIDE 0.9% 1,000 ML IV STA (03:26)
--- NOTE | 2021-10-15 03:27 | ED ---
Chest Pain HPI - General Chief Complaint: Chest Pain Stated Complaint: chest pain, SOB Time Seen by Provider: 10/15/21 03:24 Source: patient, RN notes reviewed, old records reviewed Mode of arrival: wheelchair Limitations: no limitations - History of Present Illness Initial Comments: This is a 66-year-old male to the emergency department for evaluation patient is well-known to our ER facility coming in today for chest pain shortness of breath. No fevers no travel history no sick contacts. Patient has been feeling sick all day with nausea vomiting weakness. Patient does have history of significant heart disease and cardiac risk factors he does have CAD with 3 prior stents MD Complaint: chest pain -: days(s) Onset: during rest, during exertion Pain Location: left chest Pain Radiation: none Severity: moderate Severity scale (1-10): 4 Quality: aching, sharp, dull Consistency: constant Improves With: nothing Worsens With: exertion, inspiration Context: recent illness Anginal Symptoms: nausea, vomiting, dyspnea Other Symptoms: cough Treatments Prior to Arrival: none - Related Data Home Medications Medication Instructions Recorded Confirmed cloNIDine HCL 0.1 mg PO BID 11/16/15 10/01/21 Levothyroxine Sodium [Synthroid] 75 mcg PO QAM 05/04/16 10/01/21 Omeprazole 20 mg PO BID 05/04/16 10/01/21 Escitalopram [Lexapro] 20 mg PO QAM 12/16/16 10/01/21 amLODIPine [Norvasc] 5 mg PO QAM 02/07/18 10/01/21 Nitroglycerin Sl Tabs [Nitrostat] 0.4 mg SL Q5M PRN 07/23/21 10/01/21 Baclofen 10 mg PO BID PRN 09/07/21 10/01/21 Previous Rx's Medication Instructions Recorded Ticagrelor [Brilinta] 90 mg PO BID #60 tab 06/19/19 Allergies Allergy/AdvReac Type Severity Reaction Status Date / Time rivaroxaban [From Xarelto] AdvReac Severe Nausea & Verified 10/15/21 03:16 Vomiting & Diarrhea paroxetine HCl [From Paxil] AdvReac Unknown Nausea & Verified 10/15/21 03:16 Vomiting & Diarrhea apixaban [From Eliquis] AdvReac Nausea & Verified 10/15/21 03:16 Vomiting & Diarrhea atorvastatin [From Lipitor] AdvReac Nausea & Verified 10/15/21 03:16 Vomiting & Diarrhea Beta-Blockers AdvReac Nausea & Verified 10/15/21 03:16 (Beta-Adrenergic Bloc Vomiting & Diarrhea gabapentin AdvReac Nausea & Verified 10/15/21 03:16 Vomiting & Diarrhea [id number]-RHW-UzJ Reductase AdvReac Nausea & Verified 10/15/21 03:16 Inhibitor Vomiting & Diarrhea warfarin AdvReac Nausea & Verified 10/15/21 03:16 Vomiting & Diarrhea Review of Systems ROS Statement: Those systems with pertinent positive or pertinent negative responses have been documented in the HPI. ROS Other: All systems not noted in ROS Statement are negative. EKG Findings - EKG Comments: EKG Findings:: EKGs is showing sinus tachycardia 118, patient does have ST elevation in the inferior leads. Past Medical History Past Medical History: Coronary Artery Disease (CAD), Chest Pain / Angina, Deep Vein Thrombosis (DVT), GERD/Reflux, GI Bleed, Hyperlipidemia, Hypertension, Myocardial Infarction ([place]), Musculoskeletal Disorder, Osteoarthritis (OA), Pneumonia, Renal Disease, Syncope, Thyroid Disorder Additional Past Medical History / Comment(s): Episodes of acute renal failure associated with dehydration, diverticulitis, IBS, return of hiatal hernia, bronchitis, hypothyroid, chronic low back pain with bilateral sciatica, lumbar DDD, past migraines, DJD, NT Lt foot, 4 DVTs L leg surgically removed. covid + July 2021 Last Myocardial Infarction Date:: 06/2019 History of Any Multi-Drug Resistant Organisms: None Reported Past Surgical History: Back Surgery, Cholecystectomy, Heart Catheterization, Heart Catheterization With Stent, Hernia Repair, Orthopedic Surgery Additional Past Surgical History / Comment(s): Back fusions L3-L5, ORIF L ankle, L hand fracture with surgery, R knee arthroscopy x2, R elbow tendon release, R shoulder arthroscopy, lumbar spine cyst removed, pain clinic procedures, taylor fundoplication, EGD, colonoscopy, 2019 arter[facility]ogram[facility]rombus extraction at [facility]. PTCA w/ 3 stents now Past Anesthesia/Blood Transfusion Reactions: No Reported Reaction Date of Last Stent Placement:: 2019 Past Psychological History: No Psychological Hx Reported, Depression Smoking Status: Former smoker Past Alcohol Use History: Occasional Past Drug Use History: Marijuana - Past Family History Mother Family Medical History: Thyroid Disorder Additional Family Medical History / Comment(s): Mother is living. Father Family Medical History: Coronary Artery Disease (CAD), Diabetes Mellitus Additional Family Medical History / Comment(s): Father had CABG. He at the age of 84 yrs in a MVA. Sister(s) Family Medical History: Cancer Additional Family Medical History / Comment(s): SKIN CA/ #2 sister had thyroid cancer General Exam Limitations: no limitations General appearance: alert, in no apparent distress, anxious, in distress Head exam: Present: atraumatic, normocephalic, normal inspection Eye exam: Present: normal appearance, PERRL, EOMI. Absent: scleral icterus, conjunctival injection, periorbital swelling ENT exam: Present: normal exam, mucous membranes moist Neck exam: Present: normal inspection. Absent: tenderness, meningismus, lymphadenopathy Respiratory exam: Present: normal lung sounds bilaterally. Absent: respiratory distress, wheezes, rales, rhonchi, stridor Cardiovascular Exam: Present: normal rhythm, tachycardia, normal heart sounds. Absent: systolic murmur, diastolic murmur, rubs, gallop, clicks GI/Abdominal exam: Present: soft, normal bowel sounds. Absent: distended, ten derness, guarding, rebound, rigid Extremities exam: Present: normal inspection, full ROM, normal capillary refill. Absent: tenderness, pedal edema, joint swelling, calf tenderness Back exam: Present: normal inspection Neurological exam: Present: alert, oriented X3, CN II-XII intact Psychiatric exam: Present: normal affect, normal mood Skin exam: Present: warm, dry, intact, normal color. Absent: rash Course Vital Signs 10/15/21 10/15/21 10/15/21 03:15 03:45 03:55 Pulse Rate 124 H 103 H 105 H Respiratory 36 H 16 15 Rate Blood Pressure 124/92 145/92 145/92 O2 Sat by Pulse 100 98 Oximetry 10/15/21 10/15/21 10/15/21 04:00 04:05 04:10 Pulse Rate 105 H 95 95 Respiratory 20 13 17 Rate Blood Pressure 136/88 133/85 139/90 O2 Sat by Pulse Oximetry 10/15/21 10/15/21 04:15 04:20 Pulse Rate 91 94 Respiratory 15 24 Rate Blood Pressure 124/86 123/80 O2 Sat by Pulse Oximetry - Reevaluation(s) Reevaluation #1: 10/15/21 03:38 Medical record is reviewed 10/15/21 04:00 Patient does have ominous EKG 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 Vazquez who is agreeable to take patient to the [facility] Chest Pain MDM - MDM 66 male to the emergency department for evaluation presents feeling sick all day with chest pain. Patient does have significant history of CAD, has been havin NV all day w chest pain. STEMI here in ED Critical Care Time Critical Care Time: Yes Total Critical Care Time: 31 Disposition Clinical Impression: Unstable angina pectoris, Ischemic heart disease, Nausea & vomiting, ACS (acute coronary syndrome), ST elevation myocardial infarction (STEMI), History of coronary artery stent placement, JOSIE (acute kidney injury) Disposition: ADMITTED IP TO THIS HOSP Condition: Serious Is patient prescribed a controlled substance at d/c from ED?: No Time of Disposition: 04:00
[2021-10-15] MEDS ORDERED: DILTIAZEM 5 MG/ML 5 ML VIAL IVP STA (03:51)
[2021-10-15] MEDS ORDERED: HEPARIN SODIUM 1,000 UN/ML (10ML VL) IV ONE (03:57)
[2021-10-15] MEDS ORDERED: ASPIRIN 81 MG PO STA (03:57)
[2021-10-15] MEDS ORDERED: NITROGLYCERIN SL TABS 0.4 MG TAB SUBLINGUAL PRN (03:57)
[2021-10-15] MEDS ORDERED: ONDANSETRON 4 MG/2 ML VIAL IVP PRN (03:59)
[2021-10-15 04:09] LABS: Basophils # (A) 0.4 k/uL (0-0.2); Basophils % (A) 3 %; Eosinophils % (A) 0 %; Lymphocytes # (A) 1.2 k/uL (1.0-4.8); Lymphocytes % (A) 7 %; MCH 29.5 pg (25.0-35.0); MCHC 33.2 g/dL (31.0-37.0); MCV 88.9 fL (80.0-100.0); Monocytes # (A) 0.8 k/uL (0-1.0); Monocytes % (A) 5 %; Neutrophils # (A) 14.3 k/uL (1.3-7.7); Neutrophils % (A) 85 %; Platelet Count 338 k/uL (150-450); RBC 6.62 m/uL (4.30-5.90); RDW 13.7 % (11.5-15.5); WBC 16.9 k/uL (3.8-10.6)
[2021-10-15 04:19] LABS: Calcium 12.9 mg/dL (8.4-10.2); Potassium 4.3 mmol/L (3.5-5.1); Total Bilirubin 1.4 mg/dL (0.2-1.3)
[2021-10-15 04:23] LABS: HGB 19.5 gm/dL (13.0-17.5)
[2021-10-15 04:24] LABS: HCT 58.9 % (39.0-53.0)
[2021-10-15] MEDS ORDERED: IV FLUID CONTINUATION 1,000 ML IV ONE ×2 (04:30)
--- NOTE | 2021-10-15 04:32 | XR ---
EXAM: XR Chest, 1 View CLINICAL HISTORY: ITS.REASON XR Reason: chest pain TECHNIQUE: Frontal view of the chest. COMPARISON: No relevant prior studies available. FINDINGS: Lungs: No consolidation or mass. Pleural space: No acute findings Heart: cardiomegaly. Bones/joints: No acute findings. IMPRESSION: No acute cardiopulmonary process.
[2021-10-15] MEDS ORDERED: MIDAZOLAM 2 MG/2 ML VIAL IV ONE (04:39)
[2021-10-15] MEDS: fentaNYL (PF) 50 MCG/ML 2 ML AMP IV ONE ×2 (04:39→06:17)
--- NOTE | 2021-10-15 04:39 | P.CRDCN ---
History of Present Illness History of present illness: HISTORY OF PRESENTING ILLNESS Patient is a pleasant 66-year-old male with history of hypertension hyperlipidemia, paroxysmal atrial fibrillation CAD with prior stenting, statin intolerance, CKD alcohol use and chronic pain who presents with chest pain. Patient states he woke up and started having chest pain approximately 1 AM. Initial EKG sinus tachycardia with ST elevations in inferior leads. Blood work unclear lab error with initial hemoglobin 19.5, white blood cell count 16.9, re mainder blood work pending. He does state this feels somewhat different than his prior UT and stenting. Blood pressure in the 120s to 130s over 80s. He does not smoke tobacco, he does smoke marijuana and frequent alcohol use. REVIEW OF SYSTEMS At the time of my exam: CONSTITUTIONAL: Denies fever or chills. CARDIOVASCULAR: +chest pain, no shortness of breath, orthopnea, PND or palpitations. RESPIRATORY: Denies cough. GASTROINTESTINAL: Denies abdominal pain, diarrhea, constipation, nausea or vomiting. MUSCULOSKELETAL: Denies myalgias. NEUROLOGIC: Denies numbness, tingling or weakness. ENDOCRINE: Denies fatigue, weight change, polydipsia or polyurina. GENITOURINARY: Denies burning, hematuria or urgency with micturation. HEMATOLOGIC: Denies history of anemia or bleeding. PHYSICAL EXAMINATION Vital signs reviewed. CONSTITUTIONAL: No apparent distress. HEENT: Head is normocephalic. Pupils are equal, round. Sclerae anicteric. Mucous membranes of the mouth are moist. No JVD. No carotid bruit. CHEST EXAMINATION: Lungs are clear to auscultation. No chest wall tenderness is noted on palpation or with deep breathing. HEART EXAMINATION: Regular rate and rhythm. S1, S2 heard. No murmurs, gallops or rub. ABDOMEN: Soft, nontender. Positive bowel sounds. EXTREMITIES: 2+ peripheral pulses, no lower extremity edema and no calf tenderness. NEUROLOGIC EXAMINATION: Patient is awake, alert and oriented x3. ASSESSMENT 1. Inferior STEMI 2. CAD with prior history of stenting 3. Reported history of melana in the remote past, none recently 4. Alcohol use 5. Marijuana abuse 6. Hypertension 7. Hyperlipidemia PLAN EKG consistent with an. STEMI and discuss risks and benefits of heart catheterization including possible kidney injury. Patient is agreeable. Emergency heart catheterization. Check 2-D echo. Past Medical History Past Medical History: Coronary Artery Disease (CAD), Chest Pain / Angina, Deep Vein Thrombosis (DVT), GERD/Reflux, GI Bleed, Hyperlipidemia, Hypertension, Myocardial Infarction (UT), Musculoskeletal Disorder, Osteoarthritis (OA), Pneumonia, Renal Disease, Syncope, Thyroid Disorder Additional Past Medical History / Comment(s): Episodes of acute renal failure associated with dehydration, diverticulitis, IBS, return of hiatal hernia, bronchitis, hypothyroid, chronic low back pain with bilateral sciatica, lumbar DDD, past migraines, DJD, NT Lt foot, 4 DVTs L leg surgically removed. covid + July 2021 Last Myocardial Infarction Date:: 06/2019 History of Any Multi-Drug Resistant Organisms: None Reported Past Surgical History: Back Surgery, Cholecystectomy, Heart Catheterization, Heart Catheterization With Stent, Hernia Repair, Orthopedic Surgery Additional Past Surgical History / Comment(s): Back fusions L3-L5, ORIF L ankle, L hand fracture with surgery, R knee arthroscopy x2, R elbow tendon release, R shoulder arthroscopy, lumbar spine cyst removed, pain clinic procedures, taylor fundoplication, EGD, colonoscopy, 2019 arteriogram/thrombus extraction at [facility]. PTCA w/ 3 stents now Past Anesthesia/Blood Transfusion Reactions: No Reported Reaction Date of Last Stent Placement:: 2019 Past Psychological History: No Psychological Hx Reported, Depression Smoking Status: Former smoker Past Alcohol Use History: Occasional Past Drug Use History: Marijuana - Past Family History Mother Family Medical History: Thyroid Disorder Additional Family Medical History / Comment(s): Mother is living. Father Family Medical History: Coronary Artery Disease (CAD), Diabetes Mellitus Additional Family Medical History / Comment(s): Father had CABG. He at the age of 84 yrs in a MVA. Sister(s) Family Medical History: Cancer Additional Family Medical History / Comment(s): SKIN CA/ #2 sister had thyroid cancer Medications and Allergies Home Medications Medication Instructions Recorded Confirmed Type cloNIDine HCL 0.1 mg PO BID 11/16/15 10/01/21 History Levothyroxine Sodium [Synthroid] 75 mcg PO QAM 05/04/16 10/01/21 History Omeprazole 20 mg PO BID 05/04/16 10/01/21 History Escitalopram [Lexapro] 20 mg PO QAM 12/16/16 10/01/21 History amLODIPine [Norvasc] 5 mg PO QAM 02/07/18 10/01/21 History Ticagrelor [Brilinta] 90 mg PO BID #60 tab 06/19/19 10/01/21 Rx Nitroglycerin Sl Tabs [Nitrostat] 0.4 mg SL Q5M PRN 07/23/21 10/01/21 History Baclofen 10 mg PO BID PRN 09/07/21 10/01/21 History Allergies Allergy/AdvReac Type Severity Reaction Status Date / Time rivaroxaban [From Xarelto] AdvReac Severe Nausea & Verified 10/15/21 03:16 Vomiting & Diarrhea paroxetine HCl [From Paxil] AdvReac Unknown Nausea & Verified 10/15/21 03:16 Vomiting & Diarrhea apixaban [From Eliquis] AdvReac Nausea & Verified 10/15/21 03:16 Vomiting & Diarrhea atorvastatin [From Lipitor] AdvReac Nausea & Verified 10/15/21 03:16 Vomiting & Diarrhea Beta-Blockers AdvReac Nausea & Verified 10/15/21 03:16 (Beta-Adrenergic Bloc Vomiting & Diarrhea gabapentin AdvReac Nausea & Verified 10/15/21 03:16 Vomiting & Diarrhea [id number] Reductase AdvReac Nausea & Verified 10/15/21 03:16 Inhibitor Vomiting & Diarrhea warfarin AdvReac Nausea & Verified 10/15/21 03:16 Vomiting & Diarrhea Physical Exam Vitals: Vital Signs Pulse Resp BP Pulse Ox 10/15/21 04:20 94 24 123/80 10/15/21 04:15 91 15 124/86 10/15/21 04:10 95 17 139/90 10/15/21 04:05 95 13 133/85 10/15/21 04:00 105 H 20 136/88 10/15/21 03:55 105 H 15 145/92 10/15/21 03:45 103 H 16 145/92 98 10/15/21 03:15 124 H 36 H 124/92 100 Intake and Output 10/14/21 10/14/21 10/15/21 14:59 22:59 06:59 Other: Weight 99.79 kg Results 10/15/21 03:28 Cardiac Enzymes 10/15/21 Range/Units 03:28 WBC 16.9 H (3.8-10.6) k/uL RBC 6.62 H (4.30-5.90) m/uL Hgb 19.5 H* D (13.0-17.5) gm/dL Hct 58.9 H* (39.0-53.0) % MCV 88.9 (80.0-100.0) fL MCH 29.5 (25.0-35.0) pg MCHC 33.2 (31.0-37.0) g/dL RDW 13.7 (11.5-15.5) % Plt Count 338 (150-450) k/uL MPV 8.0 Neutrophils % 85 % Lymphocytes % 7 % Monocytes % 5 % Eosinophils % 0 % Basophils % 3 % Neutrophils # 14.3 H (1.3-7.7) k/uL Lymphocytes # 1.2 (1.0-4.8) k/uL Monocytes # 0.8 (0-1.0) k/uL Eosinophils # 0.0 (0-0.7) k/uL Basophils # 0.4 H (0-0.2) k/uL CBC 10/15/21 Range/Units 03:28 WBC 16.9 H (3.8-10.6) k/uL RBC 6.62 H (4.30-5.90) m/uL Hgb 19.5 H* D (13.0-17.5) gm/dL Hct 58.9 H* (39.0-53.0) % Plt Count 338 (150-450) k/uL Current Medications Generic Name Dose Route Start Last Admin Trade Name Freq PRN Reason Stop Dose Admin Aspirin 325 mg 10/16/21 09:00 Aspirin 325 Mg Tab PO DAILY [facility] Hydromorphone HCl 1 mg 10/15/21 03:59 Hydromorphone 1 Mg/Ml 1 Ml Syringe IVP Q4HR PRN Pain Sodium Chloride 1,000 mls @ 100 mls/hr 10/15/21 04:00 Saline 0.9% IV .Q10H [facility] Heparin Sodium/Sodium Chloride 250 mls @ 10 mls/hr 10/15/21 04:00 25,000 unit/ Sodium Chloride IV .Q24H [facility] Protocol 10.021 UNITS/KG/HR Nitroglycerin 0.4 mg 10/15/21 03:57 Nitroglycerin Sl Tabs 0.4 Mg Tab SUBLINGUAL Q5M PRN Chest Pain Ondansetron HCl 4 mg 10/15/21 03:59 Ondansetron 4 Mg/2 Ml Vial IVP Q8HR PRN Nausea And Vomiting Intake and Output 10/14/21 10/14/21 10/15/21 14:59 22:59 06:59 Other: Weight 99.79 kg Patient Weight 10/15/21 06:59 Weight 99.79 kg 10/15/21 03:28
[2021-10-15] MEDS ORDERED: LIDOCAINE 1% INJ 10MG/ML (30 ML VIAL-PF) SQ ONE (04:41)
[2021-10-15] MEDS ORDERED: VERAPAMIL SYRINGE (5 MG/10 ML) INTRAARTER ONE (04:43)
[2021-10-15] MEDS ORDERED: TICAGRELOR 90 MG TAB PO ONE (04:45)
[2021-10-15] MEDS: NITROGLYCERIN 1000MCG/10ML SYRINGE INTRACORON ONE ×2 (04:45→05:37)
[2021-10-15] MEDS: HEPARIN SODIUM 1,000 UN/ML (10ML VL) IV ONE ×3 (04:53→05:57)
[2021-10-15] MEDS ORDERED: NITROGLYCERIN 1000MCG/10ML SYRINGE INTRACORON ONE (05:06)
[2021-10-15] MEDS: niCARdipine Syringe (1,000 mcg/10 mL) INTRACORON ONE ×6 (05:14→06:03)
[2021-10-15] MEDS ORDERED: IOPAMIDOL-370 125ML BTL INJ ONE (05:42)
[2021-10-15] MEDS ORDERED: TIROFIBAN BOLUS 12.5MG/250 ML BAG IV ONE (06:09)
[2021-10-15] MEDS ORDERED: TIROFIBAN 12.5MG-250ML NS 250 ML IV ONE (06:10)
[2021-10-15] MEDS ORDERED: IOPAMIDOL-370 100ML BTL INJ ONE (06:11)
[2021-10-15 06:30] LABS: Basophils % (A) 0 %; Eosinophils % (A) 0 %; HCT 47.5 % (39.0-53.0); Lymphocytes # (A) 1.3 k/uL (1.0-4.8); Lymphocytes % (A) 9 %; MCH 29.9 pg (25.0-35.0); MCHC 33.4 g/dL (31.0-37.0); MCV 89.6 fL (80.0-100.0); Mean Platelet Volume 7.8; Monocytes # (A) 0.7 k/uL (0-1.0); Monocytes % (A) 4 %; Neutrophils # (A) 13.2 k/uL (1.3-7.7); Neutrophils % (A) 86 %; Platelet Count 272 k/uL (150-450); RBC 5.31 m/uL (4.30-5.90); RDW 13.7 % (11.5-15.5); WBC 15.4 k/uL (3.8-10.6)
[2021-10-15 06:34] LABS: Albumin 4.8 g/dL (3.5-5.0); Calcium 10.1 mg/dL (8.4-10.2); Potassium 4.3 mmol/L (3.5-5.1); Total Bilirubin 0.7 mg/dL (0.2-1.3); Total Protein 7.6 g/dL (6.3-8.2)
[2021-10-15] MEDS ORDERED: RX INFO: IV CONTRAST WAS GIVEN 1 EACH MISC MISCELLANE PRN (06:37)
[2021-10-15] MEDS ORDERED: ZOLPIDEM 5 MG TAB PO PRN (06:37)
[2021-10-15] MEDS ORDERED: MAG HYDROX/AL HYDROX/SIMETH 30 ML CUP PO PRN (06:37)
[2021-10-15] MEDS ORDERED: ATROPINE SULFATE 0.1 MG/ML 10ML SYRINGE IV PRN (06:37)
--- NOTE | 2021-10-15 06:37 | P.PRCINT ---
Percutaneous Coronary Int. - Percutaneous Coronary Intervention Percutaneous Coronary Intervention: PROCEDURES PERFORMED: Left heart catheterization, bilateral coronary angiography, balloon angioplasty mid RCA in-stent stenosis with a 3.5 noncompliant balloon, PCI proximal circumflex into mid circumflex with 3.0 x 28m m Xience ROMEL, post dilated with a 3.5 NC balloon, IVUS RCA, circumflex, intracoronary nitroglycerin, nicardipine INDICATION: Inferior STEMI CONSENT:I have discussed the risks, benefits and alternative therapies for the above-mentioned procedure and for both sedation/analgesia as well as necessary blood product administration, if indicated, as they pertain to this patient. The patient has indicated understanding and acceptance of the risks and procedures discussed. PROCEDURE: After the risks, benefits and alternatives of the above mentioned procedure explained in detail with the patient, informed consent was obtained. Patient was taken to the catheterization lab and prepped and draped in usual fashion. 1% lidocaine was used to anesthetize the right radial artery. A 6- [place] sheath was placed in the right radial artery using modified Seldinger technique. Given inferior elevations right coronary angiography was performed with a 6- [place] AL 0.75 guide. There was a 70% mid RCA in-stent stenosis which was initially felt to be culprit lesion with possible distal embolization causing continued ST elevations. Therefore intervention of the RCA was recommended. Heparin was given for ACT greater than 250. A 0.014 BMW wire was advanced into the distal RCA. Balloon angioplasty was performed initially with a 2.5 x 12 mm balloon. After angioplasty laboratory results revealed acute kidney injury and therefore contrast was attempted to be limited. IVUS was performed which did show what appeared to be mildly undersized RCA stents with reference vessel approximately 3.5. Therefore additional angioplasty was performed with a 3.5 x 12 mm balloon. Final angiograms were performed preintervention there was 70% stenosis and UNA-3 flow and postintervention there was less than 10% stenosis and UNA-3 flow. Left coronary angiography was performed with a 5-[place] FL 3.5. Patient still having significant ST elevations and mid to distal circumflex noted with 99%, subtotally occluded mid circumflex after the OM1 branch. Therefore decision was made to perform intervention on the circumflex. A 6-[place] CLS 3.5 guide was used to engage the left main. A 0.014 BMW wire was advanced into the distal circumflex and a second BMW wire was advanced into the OM1 branch. Balloon angioplasty was initially performed with a 2.5 balloon. Next IVUS was performed which showed a proximal 80% stenosis as well as a mid circumflex 80% stenosis at the bifurcation with OM1 branch. OM1 branch stent struts were noted however not coming back into the circumflex. Additional balloon angioplasty was performed with a 3.0 balloon. Next a 3.0 x 28 mm Xience ROMEL was deployed from the proximal to mid circumflex jailing the OM1 branch however no significant compromise of the OM1 branch. IVUS was performed which showed some underexpansion and therefore the stent was postdilated with a 3.5 noncompliant balloon. IVUS was performed which then showed well post stent with no dissection and no significant stenosis. Angiography showed continued no reflow of the distal circumflex however good flow of the mid to distal circumflex. This appeared related to no reflow and intracoronary nicardipine was given. Patient was started on Aggrastat drip. Patient still having ST elevation in the inferior leads. Final angiograms were performed. Preintervention there was 99% stenosis with UNA 0 flow and postintervention there was <10% stenosis with UNA 2 flow. The right radial sheath was removed and a TR band was placed with hemostasis achieved. The patient tolerated the procedure well. Patient was transported back to the post catheterization holding area in stable condition. Conscious Sedation: Patient was monitored under the direct supervision of vision of myself for conscious sedation using Versed and fentanyl for a total duration of 88 minutes HEMODYNAMICS: Aorta: 128/77 LV: 121/80, LVEDP 24 SELECTIVE CORONARY ARTERIOGRAPHY: LEFT MAIN: The left main is a large caliber vessel which bifurcates into the LAD and circumflex. There is no significant stenosis. LEFT ANTERIOR DESCENDING CORONARY ARTERY: LAD is a large caliber vessel which wraps around to the apex. There is mild diffuse 20-30% stenosis of the mid and distal LAD. LEFT CIRCUMFLEX CORONARY ARTERY: Left circumflex is a moderate caliber vessel. OM1 has a proximal/ostial stent which is patent. There is a proximal circumflex 70% stenosis followed by a 99% mid circumflex stenosis at the bifurcation with OM1 branch and the distal circumflex has no flow. RIGHT CORONARY ARTERY: The right coronary artery is a large caliber vessel which gives off a PDA and PLV branch and is the dominant vessel. There is a mid RCA stent with 70% stenosis. FINAL IMPRESSION: 1. CAD as described above including 70% RCA stenosis, 70% proximal circumflex stenosis, 99% mid circumflex stenosis and mild disease of the LAD. 2. S/p balloon angioplasty mid RCA in-stent stenosis with a 3.5 noncompliant balloon 3. S/p PCI proximal circumflex into mid circumflex with 3.0 x 28mm Xience ROMEL, post dilated with a 3.5 NC balloon 4. Elevated left sided filling pressures 5. Continued ST elevations and no reflow of distal circumflex related to microvascular dysfunction PLAN: 1. Aggressive risk factor modification per most recent ACC/AHA guidelines. 2. Continue dual antiplatelets with aspirin and Brillinta for 12 months 3. Given no reflow, Aggrastat drip for 12 hours and heparin drip for 24 hours.
[2021-10-15 06:38] LABS: Glucose,Whole Blood 163 mg/dL (70-110)
[2021-10-15 06:55] LABS: HGB 15.9 gm/dL (13.0-17.5)
[2021-10-15] MEDS: HEPARIN SOD,PORK IN 0.45% NACL 25,000 UNIT in 0.45% NACL 1 250ML.BAG IV SCH (07:11)
[2021-10-15 07:48] LABS: Mean Platelet Volume 7.8; Platelet Count 272 k/uL (150-450)
[2021-10-15] MEDS: SODIUM CHLORIDE 0.9% 1,000 ML IV SCH ×3 (08:11→22:49)
[2021-10-15] MEDS: HYDROmorphone 1 MG/ML 1 ML SYRINGE IVP PRN ×4 (08:14→20:15)
[2021-10-15] MEDS: SODIUM CHLORIDE 0.9% 1,000 ML in EMPTY BAG 1 BAG IV SCH ×2 (08:16→16:29)
[2021-10-15 08:21] LABS: Prothrombin Time 11.2 sec (9.0-12.0)
[2021-10-15 08:40] LABS: Partial Thromboplastin Time 114.2 sec (22.0-30.0)
[2021-10-15 10:54] VITALS: BMI 30.7
[2021-10-15] MEDS: amLODIPine 5 MG TAB PO SCH (11:08)
[2021-10-15] MEDS: NITROGLYCERIN SL TABS 0.4 MG TAB SUBLINGUAL PRN ×3 (11:51→19:52)
[2021-10-15] MEDS ORDERED: BACLOFEN 10 MG TAB PO PRN (15:07)
--- NOTE | 2021-10-15 15:13 | P.HPIM ---
History of Present Illness H&P Date: 10/15/21 Chief Complaint: Chest pain 66-year-old man with a history of CAD status post PCI to the RCA, active alcoholic, smoker, hypertension, hyperlipidemia with statin intolerance, p aroxysmal atrial fibrillation, chronic kidney disease presented for chest pain. Patient was seen after having PCI to the left circumflex with drug-eluting stent placement as well as balloon angioplasty to the RCA, doing well in the intensive care unit on aspirin, brillinta, heparin, Aggrastat. Patient's only complaint is of pain in the wrist, pain in the chest has improved. Patient denies fevers, chills, nausea, vomiting, palpitations, syncope, presyncope, cough, dyspnea, abdominal pain, constipation, diarrhea, dysuria, dyschezia, numbness/weakness of extremities. In the intensive care unit, patient is afebrile, 133/89, 91% on 2 L nasal cannula, heart rate 105. Admission CBC demonstrated leukocytosis to 15.4, otherwise unremarkable. Chemistries show a sodium of 134, bicarb of 16 with an anion gap of 19, BUN/creatinine of 21/3.35, with baseline creatinine ranging from 1-1.5. Liver function tests are unremarkable. Initial troponin is 0.369, then repeat elevated to 1.59. EKG demonstrated sinus tachycardia with ST elevations in the inferior leads most prominent in leads 3 and aVF with reciprocal changes in lateral leads of 1, aVL. Chest x-ray did not demonstrate any acute lung process. All Systems reviewed and pertinent positives and negatives noted in HPI, all other symptoms are negative Gen: in no apparent distress, resting comfortably in bed Eyes: PERRL, no scleral injection or icterus HENT: normocephalic, atraumatic, good hearing acuity, moist mucous membranes Neck: no tracheal deviation, full range of motion Resp: good air exchange, breathing comfortably with no accessory muscle use, no tactile fremitus CVS: good distal perfusion x 4, no pitting edema GI: soft, NTTP, ND, no hepatosplenomegaly : no suprapubic tenderness, no CVAT, saenz catheter not present MSK: no clubbing, no cyanosis, no noted contractures of extremities Skin: no noted rashes, petechiae; temperature of skin is appropriate Neuro: moving all extremities without signs of weakness, CN II-XII intact Psych: cooperative, euthymic mood, insight and judgment intact Labs and imaging as above Assessment/plan: STEMI History of CAD -Admit to ICU, telemetry -Cardiology, pulmonology consult -Continue aspirin, brillinta, heparin, Aggrastat -Nitro when necessary for chest pain -Lipid panel, A1c, TSH -Echo is pending Acute kidney injury superimposed on chronic kidney disease, stage IIIa -Received IV fluids in the emergency room as well as Furniture [employer]ainer -Nephrology consult -Monitor for JERRY in this high-risk patient Alcohol abuse -Monitor for alcohol withdrawal -Thiamine, folate, multivitamin -CIWA protocol, Ativan when necessary Paroxysmal atrial fibrillation Hypertension Hyperlipidemia Hypothyroidism -Home medications reviewed and reconciled Patient is full code DVT prophylaxis covered with therapeutic heparin Past Medical History Past Medical History: Atrial Fibrillation, Coronary Artery Disease (CAD), Chest Pain / Angina, Deep Vein Thrombosis (DVT), GERD/Reflux, GI Bleed, Hyperlipidemia, Hypertension, Myocardial Infarction ([place]), Musculoskeletal Disorder, Osteoarthritis (OA), Pneumonia, Renal Disease, Syncope, Thyroid Disorder Additional Past Medical History / Comment(s): Paroxysmal afib, fell 12 weeks ago and fractured stenum/ribs, episodes of acute renal failure associated with dehydration, ckd stage IV, past melana stools, diverticulitis, IBS, return of hiatal hernia, bronchitis, hypothyroid, chronic low back pain with bilateral sciatica, lumbar DDD, past migraines, DJD, numbness/tingling bilateral legs/feet, 4 DVTs L leg surgically removed. covid + July 2021 Last Myocardial Infarction Date:: 10/15/21 History of Any Multi-Drug Resistant Organisms: None Reported Past Surgical History: Back Surgery, Cholecystectomy, Heart Catheterization, Heart Catheterization With Stent, Hernia Repair, Orthopedic Surgery Additional Past Surgical History / Comment(s): Back fusions L3-L5, ORIF L ankle, L hand fracture with surgery, R knee arthroscopy x2, R elbow tendon release, R shoulder arthroscopy, lumbar spine cyst removed, pain clinic procedures, taylor fundoplication, EGD, colonoscopy, 2019 arteriogram/thrombus extraction at [facility]. PTCA w/ 3 stents now Past Anesthesia/Blood Transfusion Reactions: No Reported Reaction Date of Last Stent Placement:: 10/15/21 Smoking Status: Former smoker - Past Family History Mother Family Medical History: Thyroid Disorder Additional Family Medical History / Comment(s): Mother is living. Father Family Medical History: Coronary Artery Disease (CAD), Diabetes Mellitus Additional Family Medical History / Comment(s): Father had CABG. He at the age of 84 yrs in a MVA. Sister(s) Family Medical History: Cancer Additional Family Medical History / Comment(s): SKIN CA/ #2 sister had thyroid cancer Medications and Allergies Home Medications Medication Instructions Recorded Confirmed Type cloNIDine HCL 0.1 mg PO BID 11/16/15 10/15/21 History Levothyroxine Sodium [Synthroid] 75 mcg PO QAM 05/04/16 10/15/21 History Omeprazole 20 mg PO BID 05/04/16 10/15/21 History Escitalopram [Lexapro] 20 mg PO QAM 12/16/16 10/15/21 History amLODIPine [Norvasc] 5 mg PO QAM 02/07/18 10/15/21 History Ticagrelor [Brilinta] 90 mg PO BID #60 tab 06/19/19 10/15/21 Rx Nitroglycerin Sl Tabs [Nitrostat] 0.4 mg SL Q5M PRN 07/23/21 10/15/21 History Baclofen 10 mg PO BID PRN 09/07/21 10/15/21 History Allergies Allergy/AdvReac Type Severity Reaction Status Date / Time rivaroxaban [From Xarelto] AdvReac Severe Nausea & Verified 10/15/21 06:59 Vomiting & Diarrhea paroxetine HCl [From Paxil] AdvReac Unknown Nausea & Verified 10/15/21 06:59 Vomiting & Diarrhea apixaban [From Eliquis] AdvReac Nausea & Verified 10/15/21 06:59 Vomiting & Diarrhea atorvastatin [From Lipitor] AdvReac Nausea & Verified 10/15/21 06:59 Vomiting & Diarrhea Beta-Blockers AdvReac Nausea & Verified 10/15/21 06:59 (Beta-Adrenergic Bloc Vomiting & Diarrhea gabapentin AdvReac Nausea & Verified 10/15/21 06:59 Vomiting & Diarrhea Itmbtzk-[id number]-GvN Reductase AdvReac Nausea & Verified 10/15/21 06:59 Inhibitor Vomiting & Diarrhea warfarin AdvReac Nausea & Verified 10/15/21 06:59 Vomiting & Diarrhea Physical Exam Osteopathic Statement: *. No significant issues noted on an osteopathic structural exam other than those noted in the History and Physical/Consult. Vitals: Vital Signs Temp Pulse Resp BP Pulse Ox FiO2 10/15/21 14:00 82 14 141/99 96 10/15/21 13:00 91 16 141/83 91 L 10/15/21 12:00 98.1 F 105 H 12 133/89 91 L 10/15/21 11:00 92 20 159/103 94 L 10/15/21 10:00 82 12 158/105 93 L 10/15/21 09:00 86 22 143/96 95 10/15/21 08:00 97.5 F L 91 10 L 147/98 94 L 10/15/21 07:25 93 L 24 10/15/21 07:00 97.5 F L 87 22 138/86 93 L 10/15/21 04:20 94 24 123/80 10/15/21 04:15 91 15 124/86 10/15/21 04:10 95 17 139/90 10/15/21 04:05 95 13 133/85 10/15/21 04:00 105 H 20 136/88 10/15/21 03:55 105 H 15 145/92 10/15/21 03:45 103 H 16 145/92 98 10/15/21 03:15 124 H 36 H 124/92 100 Intake and Output 10/15/21 10/15/21 10/15/21 06:59 14:59 22:59 Intake Total 701 600 Balance 701 600 Intake: IV 701 600 0.9% NS @ 75ml/hr 600 Other: Voiding Method Urinal # Voids 0 Weight 99.79 kg 99.79 kg Results CBC & Chem 7: 10/15/21 07:13 10/15/21 06:06 Labs: Abnormal Lab Results - Last 24 Hours (Table) 10/15/21 10/15/21 10/15/21 Range/Units 03:28 03:28 03:28 WBC 16.9 H (3.8-10.6) k/uL RBC 6.62 H (4.30-5.90) m/uL Hgb 19.5 H* D (13.0-17.5) gm/dL Hct 58.9 H* (39.0-53.0) % Neutrophils # 14.3 H (1.3-7.7) k/uL Basophils # 0.4 H (0-0.2) k/uL APTT (22.0-30.0) sec Sodium (137-145) mmol/L Chloride 95 L (98-107) mmol/L Carbon Dioxide 8 L* (22-30) mmol/L BUN (9-20) mg/dL Creatinine 3.39 H (0.66-1.25) mg/dL Glucose 189 H (74-99) mg/dL POC Glucose (mg/dL) (70-110) mg/dL Calcium 12.9 H (8.4-10.2) mg/dL Total Bilirubin 1.4 H (0.2-1.3) mg/dL Alkaline Phosphatase 167 H (38-126) U/L Troponin I 0.110 H* (0.000-0.034) ng/mL Total Protein 11.0 H (6.3-8.2) g/dL Albumin >6.0 H (3.5-5.0) g/dL 10/15/21 10/15/21 10/15/21 Range/Units 06:06 06:06 06:36 WBC 15.4 H (3.8-10.6) k/uL RBC (4.30-5.90) m/uL Hgb (13.0-17.5) gm/dL Hct (39.0-53.0) % Neutrophils # 13.2 H (1.3-7.7) k/uL Basophils # (0-0.2) k/uL APTT (22.0-30.0) sec Sodium 134 L (137-145) mmol/L Chloride (98-107) mmol/L Carbon Dioxide 16 L (22-30) mmol/L BUN 21 H (9-20) mg/dL Creatinine 3.35 H (0.66-1.25) mg/dL Glucose 158 H (74-99) mg/dL POC Glucose (mg/dL) 163 H (70-110) mg/dL Calcium (8.4-10.2) mg/dL Total Bilirubin (0.2-1.3) mg/dL Alkaline Phosphatase (38-126) U/L Troponin I (0.000-0.034) ng/mL Total Protein (6.3-8.2) g/dL Albumin (3.5-5.0) g/dL 10/15/21 10/15/21 10/15/21 Range/Units 07:13 07:13 09:57 WBC (3.8-10.6) k/uL RBC (4.30-5.90) m/uL Hgb (13.0-17.5) gm/dL Hct (39.0-53.0) % Neutrophils # (1.3-7.7) k/uL Basophils # (0-0.2) k/uL APTT 114.2 H* (22.0-30.0) sec Sodium (137-145) mmol/L Chloride (98-107) mmol/L Carbon Dioxide (22-30) mmol/L BUN (9-20) mg/dL Creatinine (0.66-1.25) mg/dL Glucose (74-99) mg/dL POC Glucose (mg/dL) (70-110) mg/dL Calcium (8.4-10.2) mg/dL Total Bilirubin (0.2-1.3) mg/dL Alkaline Phosphatase (38-126) U/L Troponin I 0.369 H* 1.590 H* (0.000-0.034) ng/mL Total Protein (6.3-8.2) g/dL Albumin (3.5-5.0) g/dL 10/15/21 Range/Units 13:17 WBC (3.8-10.6) k/uL RBC (4.30-5.90) m/uL Hgb (13.0-17.5) gm/dL Hct (39.0-53.0) % Neutrophils # (1.3-7.7) k/uL Basophils # (0-0.2) k/uL APTT 42.5 H (22.0-30.0) sec Sodium (137-145) mmol/L Chloride (98-107) mmol/L Carbon Dioxide (22-30) mmol/L BUN (9-20) mg/dL Creatinine (0.66-1.25) mg/dL Glucose (74-99) mg/dL POC Glucose (mg/dL) (70-110) mg/dL Calcium (8.4-10.2) mg/dL Total Bilirubin (0.2-1.3) mg/dL Alkaline Phosphatase (38-126) U/L Troponin I (0.000-0.034) ng/mL Total Protein (6.3-8.2) g/dL Albumin (3.5-5.0) g/dL Thrombosis Risk Factor Assmnt - Choose All That Apply Any of the Below Risk Factors Present?: Yes Each Factor Represents 1 point: Acute IA, Obesity (BMI >25) Other Risk Factors: Yes Each Risk Factor Represents 2 Points: Age 61-74 years Each Risk Factor Represents 3 Points: History of DVT/PE Other congenital or acquired thrombophilia - If yes, enter type in comment: No Thrombosis Risk Factor Assessment Total Risk Factor Score: 7 Thrombosis Risk Factor Assessment Level: High Risk
[2021-10-15] MEDS: TICAGRELOR 90 MG TAB PO SCH (20:16)
[2021-10-15] MEDS: PANTOPRAZOLE 40 MG TABLET PO SCH (20:16)
[2021-10-15] MEDS: cloNIDine HCL 0.1 MG TAB PO SCH (20:16)
[2021-10-16] MEDS: HYDROmorphone 1 MG/ML 1 ML SYRINGE IVP PRN ×6 (00:15→21:12)
[2021-10-16] MEDS: SODIUM CHLORIDE 0.9% 1,000 ML in EMPTY BAG 1 BAG IV SCH ×2 (05:31→16:01)
[2021-10-16] MEDS: HEPARIN SOD,PORK IN 0.45% NACL 25,000 UNIT in 0.45% NACL 1 250ML.BAG IV SCH (06:33)
[2021-10-16] MEDS: PANTOPRAZOLE 40 MG TABLET PO SCH (06:35)
[2021-10-16] MEDS: LEVOTHYROXINE 75 MCG TAB PO SCH (06:36)
[2021-10-16 06:41] LABS: Basophils % (A) 0 %; Eosinophils # (A) 0.1 k/uL (0-0.7); Eosinophils % (A) 1 %; HCT 40.2 % (39.0-53.0); HGB 13.6 gm/dL (13.0-17.5); Lymphocytes # (A) 1.7 k/uL (1.0-4.8); Lymphocytes % (A) 13 %; MCH 30.6 pg (25.0-35.0); MCHC 33.9 g/dL (31.0-37.0); MCV 90.2 fL (80.0-100.0); Mean Platelet Volume 7.7; Monocytes # (A) 0.9 k/uL (0-1.0); Monocytes % (A) 7 %; Neutrophils # (A) 9.8 k/uL (1.3-7.7); Neutrophils % (A) 78 %; Platelet Count 204 k/uL (150-450); RBC 4.46 m/uL (4.30-5.90); RDW 13.8 % (11.5-15.5); WBC 12.6 k/uL (3.8-10.6)
[2021-10-16 06:59] LABS: African American GFR (CKD) 52 (>60 ml/min/1.73 sqM); Anion Gap 10 mmol/L; Blood Urea Nitrogen 21 mg/dL (9-20); Carbon Dioxide 22 mmol/L (22-30); Chloride 101 mmol/L (98-107); Glucose 115 mg/dL (74-99); Magnesium 2.1 mg/dL (1.6-2.3); Non-African American GFR(CKD) 45 (>60 ml/min/1.73 sqM); Potassium 4.1 mmol/L (3.5-5.1); Sodium 133 mmol/L (137-145)
[2021-10-16] MEDS: ASPIRIN 81 MG PO SCH (08:30)
[2021-10-16] MEDS: amLODIPine 5 MG TAB PO SCH (08:30)
[2021-10-16] MEDS: cloNIDine HCL 0.1 MG TAB PO SCH ×2 (08:30→20:02)
[2021-10-16] MEDS: TICAGRELOR 90 MG TAB PO SCH ×2 (08:30→20:02)
[2021-10-16] MEDS: MULTIVITAMINS, THERA 1 EACH TAB PO SCH (08:30)
[2021-10-16] MEDS: FOLIC ACID 1 MG TAB PO SCH (08:30)
[2021-10-16] MEDS: THIAMINE 100 MG TAB PO SCH (08:30)
[2021-10-16 08:31] LABS: T4, Free (Free Thyroxine) 1.29 ng/dL (0.78-2.19)
[2021-10-16] MEDS ORDERED: amLODIPine 5 MG TAB PO SCH (09:00)
[2021-10-16] MEDS ORDERED: ASPIRIN 325 MG TAB PO SCH (09:00)
[2021-10-16] MEDS: SODIUM CHLORIDE 0.9% 1,000 ML IV SCH ×2 (09:32→20:56)
[2021-10-16] MEDS: ESCITALOPRAM 20 MG TAB PO SCH (09:32)
[2021-10-16] MEDS ORDERED: amLODIPine 5 MG TAB PO STA (09:59)
[2021-10-16] MEDS: ISOSORBIDE MONONITRATE ER 30 MG TAB.ER.24H PO SCH (10:41)
--- NOTE | 2021-10-16 10:44 | P.NPCON ---
History of Present Illness - Reason for Consult acute renal failure - History of Present Illness Patient is a 66-year-old male with history of coronary artery disease status post right coronary stent, history of hypertension, hyperlipidemia, paroxysmal A. fib, multiple episodes of acute kidney injury mostly prerenal Patient was admitted to the hospital with complaints of chest pain. He did rule in for acute inferior ST elevation [place] and was taken to civil laboratory technician yesterday evening and is status post angioplasty of mid RCA for in-stent stenosis and angioplasty of proximal circumflex. Serum creatinine was 3.39 on initial admission and is down to 1.58 today. Patient has been maintained on aggressive IV hydration. He has had good urine output. Blood pressure has not been low. UA is not available. No trouble voiding. No history of NSAIDs Review of Systems As per HPI, other systems negative Past Medical History Past Medical History: Atrial Fibrillation, Coronary Artery Disease (CAD), Chest Pain / Angina, Deep Vein Thrombosis (DVT), GERD/Reflux, GI Bleed, Hyperlipidemia, Hypertension, Myocardial Infarction ([place]), Musculoskeletal Dis order, Osteoarthritis (OA), Pneumonia, Renal Disease, Syncope, Thyroid Disorder Additional Past Medical History / Comment(s): Paroxysmal afib, fell 12 weeks ago and fractured stenum/ribs, episodes of acute renal failure associated with dehydration, ckd stage IV, past melana stools, diverticulitis, IBS, return of hiatal hernia, bronchitis, hypothyroid, chronic low back pain with bilateral sciatica, lumbar DDD, past migraines, DJD, numbness/tingling bilateral legs/feet, 4 DVTs L leg surgically removed. covid + July 2021 Last Myocardial Infarction Date:: 10/15/21 History of Any Multi-Drug Resistant Organisms: None Reported Past Surgical History: Back Surgery, Cholecystectomy, Heart Catheterization, Heart Catheterization With Stent, Hernia Repair, Orthopedic Surgery Additional Past Surgical History / Comment(s): Back fusions L3-L5, ORIF L ankle, L hand fracture with surgery, R knee arthroscopy x2, R elbow tendon release, R shoulder arthroscopy, lumbar spine cyst removed, pain clinic procedures, taylor fundoplication, EGD, colonoscopy, 2019 arteriogram/thrombus extraction at [facility]. PTCA w/ 3 stents now Past Anesthesia/Blood Transfusion Reactions: No Reported Reaction Date of Last Stent Placement:: 10/15/21 Smoking Status: Former smoker - Past Family History Mother Family Medical History: Thyroid Disorder Additional Family Medical History / Comment(s): Mother is living. Father Family Medical History: Coronary Artery Disease (CAD), Diabetes Mellitus Additional Family Medical History / Comment(s): Father had CABG. He at the age of 84 yrs in a MVA. Sister(s) Family Medical History: Cancer Additional Family Medical History / Comment(s): SKIN CA/ #2 sister had thyroid cancer Medications and Allergies Home Medications Medication Instructions Recorded Confirmed Type cloNIDine HCL 0.1 mg PO BID 11/16/15 10/15/21 History Levothyroxine Sodium [Synthroid] 75 mcg PO QAM 05/04/16 10/15/21 History Omeprazole 20 mg PO BID 05/04/16 10/15/21 History Escitalopram [Lexapro] 20 mg PO QAM 12/16/16 10/15/21 History amLODIPine [Norvasc] 5 mg PO QAM 02/07/18 10/15/21 History Ticagrelor [Brilinta] 90 mg PO BID #60 tab 06/19/19 10/15/21 Rx Nitroglycerin Sl Tabs [Nitrostat] 0.4 mg SL Q5M PRN 07/23/21 10/15/21 History Baclofen 10 mg PO BID PRN 09/07/21 10/15/21 History Allergies Allergy/AdvReac Type Severity Reaction Status Date / Time rivaroxaban [From Xarelto] AdvReac Severe Nausea & Verified 10/15/21 06:59 Vomiting & Diarrhea paroxetine HCl [From Paxil] AdvReac Unknown Nausea & Verified 10/15/21 06:59 Vomiting & Diarrhea apixaban [From Eliquis] AdvReac Nausea & Verified 10/15/21 06:59 Vomiting & Diarrhea atorvastatin [From Lipitor] AdvReac Nausea & Verified 10/15/21 06:59 Vomiting & Diarrhea Beta-Blockers AdvReac Nausea & Verified 10/15/21 06:59 (Beta-Adrenergic Bloc Vomiting & Diarrhea gabapentin AdvReac Nausea & Verified 10/15/21 06:59 Vomiting & Diarrhea [id number] Reductase AdvReac Nausea & Verified 10/15/21 06:59 Inhibitor Vomiting & Diarrhea warfarin AdvReac Nausea & Verified 10/15/21 06:59 Vomiting & Diarrhea Physical Exam Vitals: Vital Signs Temp Pulse Resp BP Pulse Ox 10/16/21 09:00 78 10 L 116/96 96 10/16/21 08:00 98.1 F 81 27 H 127/75 97 10/16/21 07:00 16 L 22 137/85 97 10/16/21 06:00 71 16 134/84 96 10/16/21 05:00 88 14 136/94 95 10/16/21 04:00 97.7 F 80 17 113/76 97 10/16/21 03:00 78 20 104/74 95 10/16/21 02:00 79 13 114/98 94 L 10/16/21 01:00 70 12 105/63 95 10/16/21 00:00 97.6 F 75 17 117/77 96 10/15/21 23:08 74 16 120/85 97 10/15/21 23:00 71 13 120/84 96 10/15/21 22:00 81 14 125/86 94 L 10/15/21 21:00 82 9 L 124/81 95 10/15/21 20:00 97.8 F 87 12 163/102 94 L 10/15/21 19:47 96 10/15/21 19:00 30 H 140/88 96 10/15/21 18:00 84 36 H 125/76 94 L 10/15/21 17:00 88 14 125/76 90 L 10/15/21 16:00 97 F L 92 27 H 138/102 94 L 10/15/21 15:00 101 H 15 132/90 97 10/15/21 14:00 82 14 141/99 96 10/15/21 13:00 91 16 141/83 91 L 10/15/21 12:00 98.1 F 105 H 12 133/89 91 L 10/15/21 11:00 92 20 159/103 94 L Intake and Output 10/15/21 10/16/21 10/16/21 22:59 06:59 14:59 Intake Total 600 828.167 225 Output Total 625 650 Balance -25 178.167 225 Intake: IV 600 600 225 0.9% NS @ 75ml/hr 600 600 225 Intake, IV Titration 228.167 Amount Heparin Sod,Pork in 0.45% 228.167 NaCl 25,000 unit In 0.45 % NaCl 1 250ml.bag @ 10. 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 Acute kidney injury prerenal currently improved significantly with IV hydration. UA is not available. Patient has had multiple episodes of acute kidney injury previously with serum creatinine as high as 4 mg/dL which improves significantly with IV hydration. CT abdomen done in 2019 showed no significant renal abnormalities. Previous UA had shown significant proteinuria. This will be retested and if persistent serologies will be ordered to rule out underlying chronic GN. 2. Acute inferior ST elevation [place] status post cardiac cath and stent placement in circumflex and angioplasty of RCA for in-stent stenosis 3. Gastroesophageal reflux disease maintained on omeprazole 4. Hypothyroidism maintained on supplementation 5. Hypertension blood pressure currently controlled Plan: Continue IV fluids Check UA Check ultrasound of the kidneys if renal function does not continue to improve. Serum creatinine had been as low as 0.9 mg/dL on 09/15/2021 Continue to avoid nephrotoxic agents Thank you for the consultation we'll continue to follow the patient with you during his hospitalization
--- NOTE | 2021-10-16 12:00 | P.PN ---
Subjective Progress Note Date: 10/16/21 Patient is a pleasant 66-year-old male with history of hypertension hyperlipidemia, paroxysmal atrial fibrillation CAD with prior stenting, statin intolerance, beta jeri intolerance, CKD alcohol use and chronic pain who presents with chest pain. Patient states he woke up and started having chest pain approximately 1 AM. Initial EKG sinus tachycardia with ST elevations in inferior leads. He does not smoke tobacco, he does smoke marijuana and frequent alcohol use. She underwent a cardiac catheterization which revealed 70% RCA stenosis, 70% proximal circumflex stenosis, 99% mid circumflex stenosis and mild disease of the LAD. Patient had in-stent stenosis of the mid RCA and received balloon an gioplasty to the mid RCA. He also had PCI to the proximal circumflex into the mid circumflex. Patient is sinus rhythm with PVCs on the monitor, echo is pending. Patient had an episode of chest pain yesterday evening which was relieved with Dilaudid and nitro. Will start Imdur 30 mg daily and increase Norvasc to 10 mg daily. Beta jeri and statins remain on hold due to intolerance. Will start Zetia 10 mg for cholesterol. Patient will continue with light hydration per nephrology, kidney function has improved today at 1.5. Will continue on dual antiplatelet therapy aspirin and Brilinta. Echocardiogram pending Wean O2 as tolerated, he is encouraged to get up and walk around. Objective - Vital Signs Vital signs: Vital Signs Temp 98.1 F 10/16/21 08:00 Pulse 81 10/16/21 08:00 Resp 27 H 10/16/21 08:00 BP 127/75 10/16/21 08:00 Pulse Ox 97 10/16/21 08:00 FiO2 24 10/15/21 07:25 Intake & Output 10/15/21 10/16/21 10/16/21 18:59 06:59 18:59 Intake Total 900 1128.167 150 Output Total 300 975 Balance 600 153.167 150 Weight 99.79 kg 101 kg Intake: IV 900 900 150 0.9% NS @ 75ml/hr 900 900 150 Intake, IV Titration 228.167 Amount Heparin Sod,Pork in 0.45% 228.167 NaCl 25,000 unit In 0.45 % NaCl 1 250ml.bag @ 10. 021 UNITS/KG/HR 10 mls/hr IV .Q24H [facility] Rx#: [id number] Output: Urine 300 975 Other: Voiding Method Urinal Urinal Urinal # Voids 0 - Exam PHYSICAL EXAM: VITAL SIGNS: Reviewed. GENERAL: Well-developed in no acute distress. HEENT: Head is normocephalic. Pupils are equal, round. Sclerae anicteric. Mucous membranes of the mouth are moist. NECK: Supple. No JVD or thyromegaly RESPIRATORY: Respirations even and unlabored. Lungs diminished to auscultation bilaterally. CARDIO: Regular rate and rhythm. S1 and S2 heard. No murmur or gallops. EXTREMITIES: Normal range of motion. No clubbing or cyanosis. Peripheral pulses intact. Negative for bilateral lower extremity edema NEURO: Orientated to person, time, mood is appropriate - Labs CBC & Chem 7: 10/16/21 05:35 10/16/21 05:35 Labs: Abnormal Lab Results - Last 24 Hours (Table) 10/15/21 10/15/21 10/15/21 Range/Units 07:13 09:57 13:17 WBC (3.8-10.6) k/uL Neutrophils # (1.3-7.7) k/uL APTT 42.5 H (22.0-30.0) sec Sodium (137-145) mmol/L BUN (9-20) mg/dL Creatinine (0.66-1.25) mg/dL Glucose (74-99) mg/dL Troponin I 0.369 H* 1.590 H* (0.000-0.034) ng/mL TSH (0.465-4.680) mIU/L 10/16/21 10/16/21 Range/Units 05:35 05:35 WBC 12.6 H (3.8-10.6) k/uL Neutrophils # 9.8 H (1.3-7.7) k/uL APTT (22.0-30.0) sec Sodium 133 L (137-145) mmol/L BUN 21 H (9-20) mg/dL Creatinine 1.58 H (0.66-1.25) mg/dL Glucose 115 H (74-99) mg/dL Troponin I (0.000-0.034) ng/mL TSH 5.160 H (0.465-4.680) mIU/L Assessment and Plan Assessment: Inferior wall ST elevation [place] Coronary artery disease with prior PCI Proximal atrial fibrillation Chronic kidney disease Plan: Start Imdur 30 mg daily Increase Norvasc to 10 mg daily Start zetia 10 mg daily Wean oxygen as tolerated Encouraged patient to ambulate as tolerated Echocardiogram pending Continue with dual antiplatelet therapy Further recommendations based on clinical course The above impression and plan of care have been discussed and directed by the signing physician. Renee Lino, nurse practitioner, acting as scribe for signing physician.
[2021-10-16 13:17] LABS: Albumin 6.6 g/dL (3.5-5.0)
--- NOTE | 2021-10-16 14:26 | P.PN ---
Subjective Progress Note Date: 10/16/21 Pt is doing much better, no bleeding issues, pain free, JOSIE improving. Transferring to Gen: in no apparent distress, resting comfortably in bed Eyes: PERRL, no scleral injection or icterus HENT: normocephalic, atraumatic, good hearing acuity, moist mucous membranes Neck: no tracheal deviation, full range of motion Resp: good air exchange, breathing comfortably with no accessory muscle use, no tactile fremitus CVS: good distal perfusion x 4, no pitting edema GI: soft, NTTP, ND, no hepatosplenomegaly : no suprapubic tenderness, no CVAT, saenz catheter not present MSK: no clubbing, no cyanosis, no noted contractures of extremities Skin: no noted rashes, petechiae; temperature of skin is appropriate Neuro: moving all extremities without signs of weakness, CN II-XII intact Psych: cooperative, euthymic mood, insight and judgment intact Labs and imaging as above Assessment/plan: STEMI History of CAD -Admit to ICU, telemetry -Cardiology, pulmonology consult -Continue aspirin, brillinta, heparin, Aggrastat -Nitro when necessary for chest pain -Lipid panel, A1c, TSH -Echo is pending Acute kidney injury superimposed on chronic kidney disease, stage IIIa -Received IV fluids in the emergency room as well as Sandblast Or Shotblast Equipment Tender -Nephrology consult -Monitor for JERRY in this high-risk patient Alcohol abuse -Monitor for alcohol withdrawal -Thiamine, folate, multivitamin -CIWA protocol, Ativan when necessary Paroxysmal atrial fibrillation Hypertension Hyperlipidemia Hypothyroidism -Home medications reviewed and reconciled Patient is full code DVT prophylaxis covered with therapeutic heparin Objective - Vital Signs Vital signs: Vital Signs Temp 98.9 F 10/16/21 12:00 Pulse 82 10/16/21 14:00 Resp 11 L 10/16/21 14:00 BP 102/74 10/16/21 14:00 Pulse Ox 92 L 10/16/21 14:00 FiO2 24 10/15/21 07:25 Intake & Output 10/15/21 10/16/21 10/16/21 18:59 06:59 18:59 Intake Total 900 1128.167 500 Output Total 300 975 300 Balance 600 153.167 200 Weight 99.79 kg 101 kg Intake: IV 900 900 500 0.9% NS @ 75ml/hr 900 900 500 Intake, IV Titration 228.167 Amount Heparin Sod,Pork in 0.45% 228.167 NaCl 25,000 unit In 0.45 % NaCl 1 250ml.bag @ 10. 021 UNITS/KG/HR 10 mls/hr IV .Q24H [facility] Rx#: [id number] Output: Urine 300 975 300 Other: Voiding Method Urinal Urinal Urinal # Voids 0 - Labs CBC & Chem 7: 10/16/21 05:35 10/16/21 05:35 Labs: Abnormal Lab Results - Last 24 Hours (Table) 10/15/21 10/16/21 10/16/21 Range/Units 03:28 05:35 05:35 WBC 12.6 H (3.8-10.6) k/uL Neutrophils # 9.8 H (1.3-7.7) k/uL Sodium (137-145) mmol/L BUN (9-20) mg/dL Creatinine (0.66-1.25) mg/dL Glucose (74-99) mg/dL Hemoglobin A1c 6.1 H (0.0-6.0) % Albumin 6.6 H (3.5-5.0) g/dL TSH (0.465-4.680) mIU/L 10/16/21 Range/Units 05:35 WBC (3.8-10.6) k/uL Neutrophils # (1.3-7.7) k/uL Sodium 133 L (137-145) mmol/L BUN 21 H (9-20) mg/dL Creatinine 1.58 H (0.66-1.25) mg/dL Glucose 115 H (74-99) mg/dL Hemoglobin A1c (0.0-6.0) % Albumin (3.5-5.0) g/dL TSH 5.160 H (0.465-4.680) mIU/L
[2021-10-16 15:39] LABS: Chol/HDL Ratio 3.77 Ratio; LDL Cholesterol,Calculated 103.3 mg/dL (0.0-131.0)
[2021-10-16] MEDS: EZETIMIBE 10 MG TAB PO SCH (16:01)
[2021-10-16] MEDS ORDERED: NITROGLYCERIN OINT 1 INCH/GM PACKET TOPICAL STA (17:15)
[2021-10-16 19:04] LABS: Appearance,Urine Clear (Clear); Bilirubin,Urine Negative (Negative); Blood,Urine Negative (Negative); Color,Urine Light Yellow; Glucose,Urine (UA) 2+ (Negative); Ketones,Urine Negative (Negative); Leukocyte Esterase,Urine Negative (Negative); Nitrite,Urine Negative (Negative); PH, Urine 5.5 (5.0-8.0); Protein,Urine Negative (Negative); Specific Gravity,Urine 1.012 (1.001-1.035); Urobilinogen,Urine <2.0 mg/dL (<2.0)
[2021-10-16 19:28] LABS: Creatinine,Urine Random 77.7 mg/dL; Protein/Creatinine Ratio,Urine 0.09
--- NOTE | 2021-10-16 20:00 | CA ---
Transthoracic Echo Report Name: Anjum Rueda Age: 66 Gender: M : 1955 Exam Date: 10/15/2021 11:44 Exam Location: [facility] Ht (in): 71 Wt (lb): 220 Ordering Physician: Renee Lino Attending/Referring Phys: Climate Change Analyst Miryam Hodges RDCS Procedure CPT: Indications: stemi Cardiac Hx: Technical Quality: Fair Contrast 1: Total Dose (mL): Contrast 2: Total Dose (mL): MEASUREMENTS (Male / Female) Normal Values 2D ECHO LV Diastolic Diameter PLAX 4.9 cm 4.2 - 5.9 / 3.9 - 5.3 cm LV Systolic Diameter PLAX 2.4 cm IVS Diastolic Thickness 1.5 cm 0.6 - 1.0 / 0.6 - 0.9 cm LVPW Diastolic Thickness 1.3 cm 0.6 - 1.0 / 0.6 - 0.9 cm LV Relative Wall Thickness 0.6 LA Volume 37.0 cm??? 18 - 58 / 22 - 52 cm??? M-MODE Aortic Root Diameter MM 4.0 cm LA Systolic Diameter MM 4.2 cm LA Ao Ratio MM 1.1 AV Cusp Separation MM 2.5 cm DOPPLER AV Peak Velocity 88.1 cm/s AV Peak Gradient 3.1 mmHg LVOT Peak Velocity 87.1 cm/s LVOT Peak Gradient 3.0 mmHg MV Area PHT 4.6 cm??? Mitral E Point Velocity 41.3 cm/s Mitral A Point Velocity 76.6 cm/s Mitral E to A Ratio 0.5 MV Deceleration Time 163.4 ms FINDINGS Left Ventricle Moderately increased left ventricular wall thickness. Normal left ventricular systolic function with no obvious regional wall motion abnormalities. Left ventricular ejection fraction is estimated at 55-60 %. Right Ventricle Normal right ventricular size. Right ventricular systolic pressure within normal limits. Right Atrium Normal right atrial size. Left Atrium Normal left atrial size. Mitral Valve No mitral stenosis. Mild mitral regurgitation. Mild mitral annular calcification. Aortic Valve Aortic valve sclerosis. No aortic valve stenosis or regurgitation. Tricuspid Valve Structurally normal tricuspid valve. Mild tricuspid regurgitation. Pulmonic Valve Structurally normal pulmonic valve. Trace pulmonic regurgitation. Pericardium No pericardial effusion. Aorta Normal size aortic root and proximal ascending aorta. CONCLUSIONS Normal LV size and systolic function with [id number] concentric LVH mild mitral and tricuspid insufficiency. No pericardial effusion Previewed by: Dr. Scott Sauer MD (Electronically Signed) Final Date: 16 October 2021 20:00
[2021-10-17] MEDS: SODIUM CHLORIDE 0.9% 1,000 ML in EMPTY BAG 1 BAG IV SCH ×2 (01:32→09:49)
[2021-10-17] MEDS: HYDROmorphone 1 MG/ML 1 ML SYRINGE IVP PRN ×2 (02:37→12:29)
[2021-10-17] MEDS: LEVOTHYROXINE 75 MCG TAB PO SCH (06:06)
[2021-10-17] MEDS: PANTOPRAZOLE 40 MG TABLET PO SCH (06:06)
--- NOTE | 2021-10-17 08:55 | P.PN ---
Subjective Progress Note Date: 10/17/21 Principal diagnosis: 66-year-old man, seen because of acute kidney injury from prerenal. Currently on IV fluids post cardiac cath. Maintain very well no complaints at all. No chest pain shortness of breath dizziness is able to walk. Good appetite no nausea vomiting. He was admitted with a history of CAD status post PCI to the RCA, active alcoholic, smoker, hypertension, hyperlipidemia with statin intolerance, paroxysmal atrial fibrillation, chronic kidney disease presented for chest pain. Patient was seen after having PCI to the left circumflex with drug-eluting stent placement as well as balloon angioplasty to the RCA, Objective - Vital Signs Vital signs: Vital Signs Temp 98.3 F 10/17/21 04:00 Pulse 85 10/17/21 04:00 Resp 18 10/17/21 04:00 BP 117/73 10/17/21 04:00 Pulse Ox 96 10/17/21 04:00 FiO2 24 10/15/21 07:25 Intake & Output 10/16/21 10/17/21 10/17/21 18:59 06:59 18:59 Intake Total 618 Output Total 700 Balance -82 Intake: IV 500 0.9% NS @ 75ml/hr 500 Oral 118 Output: Urine 700 Other: Voiding Method Urinal Urinal Awake alert oriented HEENT exam no JVP neck is supple no facial asymmetry Lungs clear to auscultation good air entry bilaterally Heart sounds unremarkable for any murmur gallop rub. Abdomen soft nontender. Extreme exam was no edema Neurologically awake alert oriented. - Labs CBC & Chem 7: 10/16/21 05:35 10/16/21 05:35 Labs: Abnormal Lab Results - Last 24 Hours (Table) 10/15/21 10/16/21 10/16/21 Range/Units 03:28 05:35 05:35 Hemoglobin A1c 6.1 H (0.0-6.0) % Albumin 6.6 H (3.5-5.0) g/dL Triglycerides 196.00 H (0.00-149.00) mg/dL Urine Glucose (UA) (Negative) 10/16/21 Range/Units 19:00 Hemoglobin A1c (0.0-6.0) % Albumin (3.5-5.0) g/dL Triglycerides (0.00-149.00) mg/dL Urine Glucose (UA) 2+ H (Negative) Assessment and Plan Assessment: Impression 1. Acute kidney injury from prerenal resolved with IV fluids. Post cardiac cath creatinine stable creatinine went down to 1.58 from 3.35 yesterday. Baseline creatinine 0.9 on 09/15/2021 but past he has had multiple episodes of acute kidney injury with creatinine as high as 4.48 and 10/06/2019. 2. Blood pressure controlled very well in the 110s to 135 systolic 3. Mild hyponatremia secondary to acute kidney injury expected to improve. 4. No evidence of any proteinuria urine protein to creatinine ratio is 0.09. Her condition 1. May be discharged discontinue the IV fluids follow-up in the outpatient with a repeat labs to ensure improvement of his renal function and subsequently will be followed up as needed
[2021-10-17] MEDS ORDERED: amLODIPine 10 MG TAB PO SCH (09:00)
[2021-10-17 09:07] LABS: Mean Platelet Volume 7.9; Platelet Count 238 k/uL (150-450)
[2021-10-17] MEDS: HEPARIN SOD,PORK IN 0.45% NACL 25,000 UNIT in 0.45% NACL 1 250ML.BAG IV SCH (09:37)
[2021-10-17] MEDS: SODIUM CHLORIDE 0.9% 1,000 ML IV SCH (09:45)
[2021-10-17] MEDS: TICAGRELOR 90 MG TAB PO SCH (09:46)
[2021-10-17] MEDS: ASPIRIN 81 MG PO SCH (09:46)
[2021-10-17] MEDS: THIAMINE 100 MG TAB PO SCH (09:46)
[2021-10-17] MEDS: MULTIVITAMINS, THERA 1 EACH TAB PO SCH (09:46)
[2021-10-17] MEDS: cloNIDine HCL 0.1 MG TAB PO SCH (09:46)
[2021-10-17] MEDS: FOLIC ACID 1 MG TAB PO SCH (09:46)
[2021-10-17] MEDS: ISOSORBIDE MONONITRATE ER 30 MG TAB.ER.24H PO SCH (09:46)
[2021-10-17] MEDS: ESCITALOPRAM 20 MG TAB PO SCH (09:46)
[2021-10-17] MEDS: EZETIMIBE 10 MG TAB PO SCH (10:21)
[2021-10-17 12:20] VITALS: RESP 16; TEMP 98.4
--- NOTE | 2021-10-17 14:59 | P.PN ---
Subjective HISTORY OF PRESENTING ILLNESS Patient is a pleasant 66-year-old male with history of hypertension hyperlipidemia, paroxysmal atrial fibrillation CAD with prior stenting, statin intolerance, beta jeri intolerance, CKD alcohol use and chronic pain who presents with chest pain. Patient states he woke up and started having chest pain approximately 1 AM. Initial EKG sinus tachycardia with ST elevations in inferior leads. He does not smoke tobacco, he does smoke marijuana and frequent alcohol use. She underwent a cardiac catheterization which revealed 70% RCA stenosis, 70% proximal circumflex stenosis, 99% mid circumflex stenosis and mild disease of the LAD. Patient had in-stent stenosis of the mid RCA and received balloon angioplasty to the mid RCA. He also had PCI to the proximal circumflex into the mid circumflex. Patient is sinus rhythm with PVCs on the monitor, echo is pending. Patient had an episode of chest pain yesterday evening which was relieved with Dilaudid and nitro. Will start Imdur 30 mg daily and increase Norvasc to 10 mg daily. Beta jeri and statins remain on hold due to intolerance. Will start Zetia 10 mg for cholesterol. Patient will continue with light hydration per nephrology, kidney function has improved today at 1.5. Will continue on dual antiplatelet therapy aspirin and Brilinta. Echocardiogram pending Wean O2 as tolerated, he is encouraged to get up and walk around. 10/17 Patient seen and examined. He denies any further chest pain or pressure. Echo showed preserved EF without significant valvular disease. Creatinine not resulted from today however had improved yesterday to 1.5. Denies any lightheadedness or dizziness. Anxious to go home. PHYSICAL EXAMINATION Vital signs reviewed. CONSTITUTIONAL: No apparent distress. HEENT: Head is normocephalic. Pupils are equal, round. Sclerae anicteric. Mucous membranes of the mouth are moist. No JVD. No carotid bruit. CHEST EXAMINATION: Lungs are clear to auscultation. No chest wall tenderness is noted on palpation or with deep breathing. HEART EXAMINATION: Regular rate and rhythm. S1, S2 heard. No murmurs, gallops or rub. ABDOMEN: Soft, nontender. Positive bowel sounds. EXTREMITIES: 2+ peripheral pulses, no lower extremity edema and no calf tenderness. NEUROLOGIC EXAMINATION: Patient is awake, alert and oriented x3. ASSESSMENT 1. Inferior STEMI, status post balloon of the RCA 80% stenosis as well as PCI circumflex 99% stenosis. 2. CAD with prior history of stenting 3. Reported history of melana in the remote past, none recently 4. Alcohol use 5. Marijuana abuse 6. Hypertension 7. Hyperlipidemia PLAN Echo shows preserved EF and he has been stable without any further chest pain. Appears stable for discharge home from a cardiology standpoint. Follow-up in office in 1 week. Continue dual antiplatelets for 12 months. Objective - Vital Signs Vital signs: Vital Signs Temp 98.4 F 10/17/21 12:00 Pulse 98 10/17/21 14:00 Resp 16 10/17/21 14:00 BP 113/66 10/17/21 12:00 Pulse Ox 93 L 10/17/21 12:00 FiO2 24 10/15/21 07:25 Intake & Output 10/16/21 10/17/21 10/17/21 18:59 06:59 18:59 Intake Total 618 240 Output Total 700 Balance -82 240 Intake: IV 500 0.9% NS @ 75ml/hr 500 Oral 118 240 Output: Urine 700 Other: Voiding Method Urinal Urinal Urinal # Voids 3 - Labs CBC & Chem 7: 10/17/21 07:23 10/16/21 05:35 Labs: Abnormal Lab Results - Last 24 Hours (Table) 10/16/21 10/16/21 Range/Units 05:35 19:00 Triglycerides 196.00 H (0.00-149.00) mg/dL Urine Glucose (UA) 2+ H (Negative)
--- NOTE | 2021-10-17 16:25 | P.DS ---
Providers Date of admission: 10/15/21 03:57 Expected date of discharge: 10/17/21 Attending physician: Donte Titus MD Consults: 10/15/21 03:57 Consult Physician Urgent Consulting Provider: Dalia Vazquez Consult Reason/Comments: acs Do you want consulting provider notified?: Yes 10/15/21 06:37 Consult Physician Routine Consulting Provider: [facility] Consult Reason/Comments: Post Interventional Patient Do you want consulting provider notified?: Already Contacted 10/15/21 15:11 Consult Physician Routine Consulting Provider: Rafaela Browne Consult Reason/Comments: JOSIE on CKD in patient with high risk for JERRY s/p LHC Do you want consulting provider notified?: Yes Primary care physician: Stated None Hospital Course: STEMI History of CAD Acute kidney injury superimposed on chronic kidney disease, stage IIIa Alcohol abuse Paroxysmal atrial fibrillation Hypertension Hyperlipidemia Hypothyroidism 66-year-old man with a history of CAD status post PCI to the RCA, active alcoholic, smoker, hypertension, hyperlipidemia with statin intolerance, paroxysmal atrial fibrillation, chronic kidney disease presented for chest pain. He underwent PCI on same day of admission after going straight to technical laboratory asst from ER. Afterwards, in the intensive care unit, patient is afebrile, 133/89, 91% on 2 L nasal cannula, heart rate 105. Admission CBC demonstrated leukocytosis to 15.4, otherwise unremarkable. Chemistries show a sodium of 134, bicarb of 16 with an anion gap of 19, BUN/creatinine of 21/3.35, with baseline creatinine ranging from 1-1.5. Liver function tests are unremarkable. Initial troponin is 0.369, then repeat elevated to 1.59. EKG demonstrated sinus tachycardia with ST elevations in the inferior leads most prominent in leads 3 and aVF with reciprocal changes in lateral leads of 1, aVL. Chest x-ray did not demonstrate any acute lung process. I spent 34 minutes coordinating this discharge, d/c date 10/17. Gen: in no apparent distress, resting comfortably in bed Eyes: PERRL, no scleral injection or icterus HENT: normocephalic, atraumatic, good hearing acuity, moist mucous membranes Neck: no tracheal deviation, full range of motion Resp: good air exchange, breathing comfortably with no accessory muscle use, no tactile fremitus CVS: good distal perfusion x 4, no pitting edema GI: soft, NTTP, ND, no hepatosplenomegaly : no suprapubic tenderness, no CVAT, saenz catheter not present MSK: no clubbing, no cyanosis, no noted contractures of extremities Skin: no noted rashes, petechiae; temperature of skin is appropriate Neuro: moving all extremities without signs of weakness, CN II-XII intact Psych: cooperative, euthymic mood, insight and judgment intact Patient Condition at Discharge: Good Plan - Discharge Summary Discharge Rx Participant: No New Discharge Prescriptions: New Folic Acid 1 mg PO DAILY #30 tab Isosorbide Mononitrate ER [Imdur] 30 mg PO DAILY #30 tab Multivitamins, Thera [Multivitamin (formulary)] 1 each PO DAILY #30 tab Thiamine [Vitamin B-1] 100 mg PO DAILY #30 tab Aspirin 81 mg PO DAILY #30 tab Ezetimibe [Zetia] 10 mg PO DAILY #30 tab Continue cloNIDine HCL 0.1 mg PO BID Levothyroxine Sodium [Synthroid] 75 mcg PO QAM Omeprazole 20 mg PO BID Escitalopram [Lexapro] 20 mg PO QAM Baclofen 10 mg PO BID PRN PRN Reason: Muscle Spasm Ticagrelor [Brilinta] 90 mg PO BID #60 tab Nitroglycerin Sl Tabs [Nitrostat] 0.4 mg SL Q5M PRN PRN Reason: Chest Pain Changed amLODIPine [Norvasc] 10 mg PO QAM #60 tab Discharge Medication List cloNIDine HCL 0.1 mg PO BID 11/16/15 [History] Levothyroxine Sodium [Synthroid] 75 mcg PO QAM 05/04/16 [History] Omeprazole 20 mg PO BID 05/04/16 [History] Escitalopram [Lexapro] 20 mg PO QAM 12/16/16 [History] Nitroglycerin Sl Tabs [Nitrostat] 0.4 mg SL Q5M PRN 07/23/21 [History] Baclofen 10 mg PO BID PRN 09/07/21 [History] Aspirin 81 mg PO DAILY #30 tab 10/17/21 [Rx] Ezetimibe [Zetia] 10 mg PO DAILY #30 tab 10/17/21 [Rx] Folic Acid 1 mg PO DAILY #30 tab 10/17/21 [Rx] Isosorbide Mononitrate ER [Imdur] 30 mg PO DAILY #30 tab 09/10/22 [Rx] Multivitamins, Thera [Multivitamin (formulary)] 1 each PO DAILY #30 tab 10/17/21 [Rx] Thiamine [Vitamin B-1] 100 mg PO DAILY #30 tab 10/17/21 [Rx] Ticagrelor [Brilinta] 90 mg PO BID #60 tab 10/17/21 [Rx] amLODIPine [Norvasc] 10 mg PO QAM #60 tab 10/17/21 [Rx] Follow up Appointment(s)/Referral(s): Kareem Vazquez DO [STAFF PHYSICIAN] - 1 Week Patient Instructions/Handouts: Moderate Sedation (ED), After Radial Heart Catheterization (GEN) Activity/Diet/Wound Care/Special Instructions: *NO LIFTING, PUSHING, OR PULLING ANYTHING OVER 5 POUNDS FOR 5 DAYS *NO DRIVING FOR 3 DAY *YOU CAN SHOWER TOMORROW BUT DO NOT SUBMERSE YOUR PUNCTURE SITE IN WATER FOR A FEW DAYS TO PREVENT INFECTION - SO NO TUB BATHS, POOLS, HOT TUBS, DISHES...ETC *ANY SIGNS OF BLEEDING (HARDNESS, SWELLING, OR EXCESSIVE BRUISING) HOLD DIRECT PRESSURE ON YOUR PUNCTURE SITE AND COME TO THE NEAREST EMERGENCY ROOM TO GET YOUR PUNCTURE SITE LOOKED AT - DO NOT DRIVE YOURSELF! EITHER CALL EMS OR HAVE SOMEONE DRIVE YOU! Discharge Disposition: HOME SELF-CARE
[2021-10-17 16:42] VITALS: BP 136/74; PULSE 88
== END 2021-10-17 16:37 | disposition home or self-care (01) | DRG 247 ==
LOC: EC 03:11 → 2SICU 03:57 → 3SCARD 10-16 16:09
PROVIDERS: ADMIT Internal Medicine; ATTEND Internal Medicine
PROC: 027034Z Dilation of Coronary Artery, One Artery with Drug-eluting Intraluminal Device, Percutaneous Approach (ICD-10-PCS; principal; 2021-10-15 04:22)
PROC: B241ZZ3 Ultrasonography of Multiple Coronary Arteries, Intravascular (ICD-10-PCS; principal; 2021-10-15 04:22)
PROC: 02703ZZ Dilation of Coronary Artery, One Artery, Percutaneous Approach (ICD-10-PCS; principal; 2021-10-15 04:22)
PROC: B2111ZZ Fluoroscopy of Multiple Coronary Arteries using Low Osmolar Contrast (ICD-10-PCS; principal; 2021-10-15 04:22)
PROC: 4A023N7 Measurement of Cardiac Sampling and Pressure, Left Heart, Percutaneous Approach (ICD-10-PCS; principal; 2021-10-15 04:22)
DX: I21.19 ST elevation (STEMI) myocardial infarction involving other coronary artery of inferior wall (principal); E87.1 Hypo-osmolality and hyponatremia; N17.9 Acute kidney failure, unspecified; T82.855A Stenosis of coronary artery stent, initial encounter; I25.110 Atherosclerotic heart disease of native coronary artery with unstable angina pectoris; I48.0 Paroxysmal atrial fibrillation; N18.31 Chronic kidney disease, stage 3a; I12.9 Hypertensive chronic kidney disease with stage 1 through stage 4 chronic kidney disease, or unspecified chronic kidney disease; K21.9 Gastro-esophageal reflux disease without esophagitis; E78.5 Hyperlipidemia, unspecified; E03.9 Hypothyroidism, unspecified; F10.10 Alcohol abuse, uncomplicated; F12.10 Cannabis abuse, uncomplicated; K44.9 Diaphragmatic hernia without obstruction or gangrene; M51.36 Other intervertebral disc degeneration, lumbar region; I25.2 Old myocardial infarction; G89.29 Other chronic pain; M54.42 Lumbago with sciatica, left side; M54.41 Lumbago with sciatica, right side; K58.9 Irritable bowel syndrome, unspecified; M19.90 Unspecified osteoarthritis, unspecified site; D72.829 Elevated white blood cell count, unspecified; Z79.02 Long term (current) use of antithrombotics/antiplatelets; Z79.890 Hormone replacement therapy; Z79.899 Other long term (current) drug therapy; Z87.891 Personal history of nicotine dependence; Z86.718 Personal history of other venous thrombosis and embolism; Z86.16 Personal history of COVID-19; Z88.8 Allergy status to other drugs, medicaments and biological substances; Y83.1 Surgical operation with implant of artificial internal device as the cause of abnormal reaction of the patient, or of later complication, without mention of misadventure at the time of the procedure; Z82.49 Family history of ischemic heart disease and other diseases of the circulatory system
CPT/HCPCS: 36415; 71045; 80048; 80053; 80061; 81003; 82570; 83036; 83690; 83735; 83880; 84156; 84439; 84443; 84484; 85025; 85049; 85610; 85730; 92920; 92978; 92979; 93005; 93306; 93458; 94760; 96374; 96375; 99291

== ENCOUNTER 2021-10-19 10:43 | Inpatient (IN) | payer MEDICARE ==
--- NOTE | 2021-10-19 11:09 | ED ---
General Adult HPI - General Chief complaint: Chest Pain Stated complaint: Stint/chest pain Time Seen by Provider: 10/19/21 10:50 Source: patient, RN notes reviewed, old records reviewed Mode of arrival: ambulatory - History of Present Illness Initial comments: This is a 66-year-old male who presents emergency Department stating that he had a stent placed on and was discharged from hospital Tuesday. Patient states after that he started having some chest pain was more sharp in nature than pressure. Patient states then the pain seemed to move down into his abdomen and last night his abdomen pain was severe and in fact worsen the chest pain. Patient denies any difficulty breathing. Patient states when he coughs he seems to pass out. Patient states she's passed out once 3 times and only last for a second. Patient denies any significant cough states is just his normal cough. Patient denies any fever chills. Patient states he does smoke medical marijuana frequently. Patient denies any swelling to the legs or calf tenderness. - Related Data Home Medications Medication Instructions Recorded Confirmed cloNIDine HCL 0.1 mg PO BID 11/16/15 10/19/21 Levothyroxine Sodium [Synthroid] 75 mcg PO DAILY 05/04/16 10/19/21 Omeprazole 20 mg PO BID 05/04/16 10/19/21 Escitalopram [Lexapro] 20 mg PO DAILY 12/16/16 10/19/21 Nitroglycerin Sl Tabs [Nitrostat] 0.4 mg SL Q5M PRN 07/23/21 10/19/21 Baclofen 10 mg PO BID PRN 09/07/21 10/19/21 Metoprolol Succinate [Metoprolol 25 mg PO DAILY 10/19/21 10/19/21 Succinate ER] Multivitamins, Thera [Multivitamin 1 tab PO DAILY 10/19/21 10/19/21 (formulary)] amLODIPine [Norvasc] 10 mg PO DAILY 10/19/21 10/19/21 Previous Rx's Medication Instructions Recorded Aspirin 81 mg PO DAILY #30 tab 10/17/21 Ezetimibe [Zetia] 10 mg PO DAILY #30 tab 10/17/21 Folic Acid 1 mg PO DAILY #30 tab 10/17/21 Isosorbide Mononitrate ER [Imdur] 30 mg PO DAILY #30 tab 10/17/21 Thiamine [Vitamin B-1] 100 mg PO DAILY #30 tab 10/17/21 Ticagrelor [Brilinta] 90 mg PO BID #60 tab 10/17/21 Allergies Allergy/AdvReac Type Severity Reaction Status Date / Time rivaroxaban [From Xarelto] AdvReac Severe Nausea & Verified 10/19/21 12:26 Vomiting & Diarrhea paroxetine HCl [From Paxil] AdvReac Unknown Nausea & Verified 10/19/21 12:26 Vomiting & Diarrhea apixaban [From Eliquis] AdvReac Nausea & Verified 10/19/21 12:26 Vomiting & Diarrhea atorvastatin [From Lipitor] AdvReac Nausea & Verified 10/19/21 12:26 Vomiting & Diarrhea Beta-Blockers AdvReac Nausea & Verified 10/19/21 12:26 (Beta-Adrenergic Bloc Vomiting & Diarrhea gabapentin AdvReac Nausea & Verified 10/19/21 12:26 Vomiting & Diarrhea [id number] Reductase AdvReac Nausea & Verified 10/19/21 12:26 Inhibitor Vomiting & Diarrhea warfarin AdvReac Nausea & Verified 10/19/21 12:26 Vomiting & Diarrhea Review of Systems ROS Statement: Those systems with pertinent positive or pertinent negative responses have been documented in the HPI. ROS Other: All systems not noted in ROS Statement are negative. Past Medical History Past Medical History: Atrial Fibrillation, Coronary Artery Disease (CAD), Chest Pain / Angina, Deep Vein Thrombosis (DVT), GERD/Reflux, GI Bleed, Hyperlipidemia, Hypertension, Myocardial Infarction ([place]), Musculoskeletal Disorder, Osteoarthritis (OA), Pneumonia, Renal Disease, Syncope, Thyroid Disorder Additional Past Medical History / Comment(s): Paroxysmal afib, fell 12 weeks ago and fractured stenum/ribs, episodes of acute renal failure associated with dehydration, ckd stage IV, past melana stools, diverticulitis, IBS, return of hiatal hernia, bronchitis, hypothyroid, chronic low back pain with bilateral sciatica, lumbar DDD, past migraines, DJD, numbness/tingling bilateral legs/feet, 4 DVTs L leg surgically removed. covid + July 2021 Last Myocardial Infarction Date:: 10/15/21 History of Any Multi-Drug Resistant Organisms: None Reported Past Surgical History: Back Surgery, Cholecystectomy, Heart Catheterization, Heart Catheterization With Stent, Hernia Repair, Orthopedic Surgery Additional Past Surgical History / Comment(s): Back fusions L3-L5, ORIF L ankle, L hand fracture with surgery, R knee arthroscopy x2, R elbow tendon release, R shoulder arthroscopy, lumbar spine cyst removed, pain clinic procedures, taylor fundoplication, EGD, colonoscopy, 2019 arteriogram/thrombus extraction at [facility]. PTCA w/ 3 stents now Past Anesthesia/Blood Transfusion Reactions: No Reported Reaction Date of Last Stent Placement:: 10/15/21 Past Psychological History: No Psychological Hx Reported, Depression Smoking Status: Former smoker Past Alcohol Use History: Occasional Past Drug Use History: Marijuana - Past Family History Mother Family Medical History: Thyroid Disorder Additional Family Medical History / Comment(s): Mother is living. Father Family Medical History: Coronary Artery Disease (CAD), Diabetes Mellitus Additional Family Medical History / Comment(s): Father had CABG. He at the age of 84 yrs in a MVA. Sister(s) Family Medical History: Cancer Additional Family Medical History / Comment(s): SKIN CA/ #2 sister had thyroid cancer General Exam - General Exam Comments Initial Comments: GENERAL: Patient is well-developed and well-nourished. Patient is nontoxic and well- hydrated and is in mild distress. ENT: Neck is soft and supple. No significant lymphadenopathy is noted. Oropharynx is clear. Moist mucous membranes. Neck has full range of motion without eliciting any pain. EYES: The sclera were anicteric and conjunctiva were pink and moist. Extraocular movements were intact and pupils were equal round and reactive to light. Eyelids were unremarkable. PULMONARY: Unlabored respirations. Good breath sounds bilaterally. No audible rales rhonchi or wheezing was noted. CARDIOVASCULAR: There is a regular rate and rhythm without any murmurs gallops or rubs. ABDOMEN: Soft and nontender with normal bowel sounds. SKIN: Skin is clear with no lesions or rashes and otherwise unremarkable. NEUROLOGIC: Patient is alert and oriented x3. Cranial nerves II through XII are grossly intact. Motor and sensory are also intact. Normal speech, volume and content. Symmetrical smile. MUSCULOSKELETAL: Normal extremities with adequate strength and full range of motion. LYMPHATICS: No significant lymphadenopathy is noted PSYCHIATRIC: Normal psychiatric evaluation. Course Vital Signs 10/19/21 10:46 Temperature 98 F Pulse Rate 55 L Respiratory 24 Rate Blood Pressure 117/78 O2 Sat by Pulse 98 Oximetry Medical Decision Making - Medical Decision Making EKG shows sinus rhythm at 82 bpm MD interval is 220 QRS is 111 QT interval 373 QTC is 412 per patient's EKG shows no ST segment elevation or depression. Patient has Q waves in leads II, III, and F aVF. CT of the chest and abdomen shows a nonintoxicated diverticulitis but no abnormality of the aorta. I spoke with cardiology and they agreed to see the patient. I started the patient on heparin because of the elevated troponin. I spoke with sound physician's agreed to admit the patient. I wrote admitting orders I consult cardiology - Lab Data Result diagrams: 10/19/21 11:43 10/19/21 11:43 Lab Results 10/19/21 10/19/21 10/19/21 Range/Units 11:43 11:43 11:43 WBC 8.5 (3.8-10.6) k/uL RBC 4.44 (4.30-5.90) m/uL Hgb 13.8 (13.0-17.5) gm/dL Hct 39.1 (39.0-53.0) % MCV 88.2 (80.0-100.0) fL MCH 31.2 (25.0-35.0) pg MCHC 35.4 (31.0-37.0) g/dL RDW 14.0 (11.5-15.5) % Plt Count 285 (150-450) k/uL MPV 7.9 Neutrophils % 65 % Lymphocytes % 22 % Monocytes % 9 % Eosinophils % 1 % Basophils % 1 % Neutrophils # 5.5 (1.3-7.7) k/uL Lymphocytes # 1.8 (1.0-4.8) k/uL Monocytes # 0.7 (0-1.0) k/uL Eosinophils # 0.1 (0-0.7) k/uL Basophils # 0.0 (0-0.2) k/uL PT 10.7 (9.0-12.0) sec INR 1.0 (<1.2) APTT 22.7 (22.0-30.0) sec Sodium 138 (137-145) mmol/L Potassium 3.9 (3.5-5.1) mmol/L Chloride 105 (98-107) mmol/L Carbon Dioxide 20 L (22-30) mmol/L Anion Gap 13 mmol/L BUN 18 (9-20) mg/dL Creatinine 1.12 (0.66-1.25) mg/dL Est GFR (CKD-EPI)AfAm 78 (>60 ml/min/1.73 sqM) Est GFR (CKD-EPI)NonAf 68 (>60 ml/min/1.73 sqM) Glucose 111 H (74-99) mg/dL Plasma Lactic Acid Chacorta (0.7-2.0) mmol/L Calcium 9.7 (8.4-10.2) mg/dL Magnesium 2.0 (1.6-2.3) mg/dL Total Bilirubin 1.2 (0.2-1.3) mg/dL AST 45 (17-59) U/L ALT 34 (4-49) U/L Alkaline Phosphatase 98 (38-126) U/L Troponin I (0.000-0.034) ng/mL Total Protein 6.7 (6.3-8.2) g/dL Albumin 4.3 (3.5-5.0) g/dL 10/19/21 10/19/21 Range/Units 11:43 11:43 WBC (3.8-10.6) k/uL RBC (4.30-5.90) m/uL Hgb (13.0-17.5) gm/dL Hct (39.0-53.0) % MCV (80.0-100.0) fL MCH (25.0-35.0) pg MCHC (31.0-37.0) g/dL RDW (11.5-15.5) % Plt Count (150-450) k/uL MPV Neutrophils % % Lymphocytes % % Monocytes % % Eosinophils % % Basophils % % Neutrophils # (1.3-7.7) k/uL Lymphocytes # (1.0-4.8) k/uL Monocytes # (0-1.0) k/uL Eosinophils # (0-0.7) k/uL Basophils # (0-0.2) k/uL PT (9.0-12.0) sec INR (<1.2) APTT (22.0-30.0) sec Sodium (137-145) mmol/L Potassium (3.5-5.1) mmol/L Chloride (98-107) mmol/L Carbon Dioxide (22-30) mmol/L Anion Gap mmol/L BUN (9-20) mg/dL Creatinine (0.66-1.25) mg/dL Est GFR (CKD-EPI)AfAm (>60 ml/min/1.73 sqM) Est GFR (CKD-EPI)NonAf (>60 ml/min/1.73 sqM) Glucose (74-99) mg/dL Plasma Lactic Acid Chacorta 1.6 (0.7-2.0) mmol/L Calcium (8.4-10.2) mg/dL Magnesium (1.6-2.3) mg/dL Total Bilirubin (0.2-1.3) mg/dL AST (17-59) U/L ALT (4-49) U/L Alkaline Phosphatase (38-126) U/L Troponin I 5.240 H* (0.000-0.034) ng/mL Total Protein (6.3-8.2) g/dL Albumin (3.5-5.0) g/dL Critical Care Time Critical Care Time: Yes Total Critical Care Time: 35 Disposition Clinical Impression: Acute non-ST elevation myocardial infarction (NSTEMI), Diverticulitis Disposition: ADMITTED IP TO THIS HOSP Referrals: None,Stated [Primary Care Provider] - 1-2 days Time of Disposition: 13:37
[2021-10-19 11:58] LABS: Basophils % (A) 1 %; Eosinophils # (A) 0.1 k/uL (0-0.7); Eosinophils % (A) 1 %; HCT 39.1 % (39.0-53.0); HGB 13.8 gm/dL (13.0-17.5); Lymphocytes # (A) 1.8 k/uL (1.0-4.8); Lymphocytes % (A) 22 %; MCH 31.2 pg (25.0-35.0); MCHC 35.4 g/dL (31.0-37.0); MCV 88.2 fL (80.0-100.0); Mean Platelet Volume 7.9; Monocytes # (A) 0.7 k/uL (0-1.0); Monocytes % (A) 9 %; Neutrophils # (A) 5.5 k/uL (1.3-7.7); Neutrophils % (A) 65 %; Platelet Count 285 k/uL (150-450); RBC 4.44 m/uL (4.30-5.90); WBC 8.5 k/uL (3.8-10.6)
[2021-10-19 12:12] LABS: Partial Thromboplastin Time 22.7 sec (22.0-30.0); Prothrombin Time 10.7 sec (9.0-12.0)
[2021-10-19 12:13] LABS: Albumin 4.3 g/dL (3.5-5.0); Calcium 9.7 mg/dL (8.4-10.2); Potassium 3.9 mmol/L (3.5-5.1); Total Bilirubin 1.2 mg/dL (0.2-1.3); Total Protein 6.7 g/dL (6.3-8.2)
[2021-10-19] MEDS ORDERED: HYDROmorphone 0.5 MG/0.5 ML SYRINGE IVP STA ×2 (12:34→15:31)
--- NOTE | 2021-10-19 12:47 | CT ---
EXAMINATION TYPE: CT angio thor/abd pel aorta CT DLP: 3307.3 mGycm, Automated exposure control for dose reduction was used. DATE OF EXAM: 10/19/2021 12:27 PM COMPARISON: 10/23/2021. CLINICAL INDICATION:Male, 66 years old with history of Abdominal pain, chest /Abdominal pain, heart s tents places last week TECHNIQUE: Dissection protocol: Multiple axial CT images of the chest, abdomen, and pelvis were obtai tracee prior and to the administration of IV contrast. 3-D reformats and maximum intensity projection fo rmat were performed on a separate workstation. Contrast used:80 mL of Isovue 370 with IV Contrast, Oral contrast used: None FINDINGS: ARTERIAL VASCULATURE: The thoracic aorta is normal in course and caliber. There is no evidence of aor tic dissection, aneurysm or acute aortic injury. Great arch vessels patent and normal in course and c aliber. Moderate atherosclerotic changes of the thoracic aorta. No evidence of intramural hematoma. T he origins of the great vessels of the head terminal aorta are intact and patent. PULMONARY ARTERIAL VASCULATURE: Normal caliber. Nonopacified pulmonary arteries are suboptimal for ev aluation for pulmonary embolus. VENOUS SYSTEM: Unremarkable. Lungs/pleura: No evidence of focal consolidation, pneumothorax or pleural effusion. Right major fissu re intrafissural lymph node series 501 image 40 measuring 4 mm. No suspicious pulmonary nodules. Stre aky atelectasis/scarring is seen within the lung bases. Heart: Mildly enlarged for size with coronary artery atherosclerosis. Coronary artery stent is noted. Evaluation for patency is limited given motion artifact. Mediastinum: No gross evidence of adenopathy. Lower Neck: No significant findings. Liver: Hepatic cysts present. Gallbladder and Bile ducts: Gallbladder surgically absent. Pancreas: Unremarkable. Spleen: Small splenule is present. Adrenal glands: Unremarkable. Kidneys and Ureters: Unremarkable. No hydronephrosis. Stomach and Bowel: Small hiatal hernia is present. There is fat stranding changes around a colonic di verticula in the sigmoid colon best appreciated on series 501 image 275. No evidence of bowel obstruc tion. No evidence for organizing fluid collection. Peritoneum: No evidence of pneumoperitoneum, free fluid, or adenopathy. Bladder: Unremarkable. Reproductive: Unremarkable. Abdominal wall/soft tissues: Mild gynecomastia changes are present. Musculoskeletal: The osseous structures appear intact. There is postsurgical changes at L3-L4 and L5. Hardware appears intact. Lumbar alignment appears appropriate. There is nonfusion of the mid sternum . IMPRESSION: 1. No evidence for thoracic aortic dissection aortic aneurysm or acute vascular process. Moderate ath erosclerosis throughout the arterial vasculature. Patent great vessels of the thoracic and abdominal aorta. 2. Uncomplicated sigmoid colon diverticulitis. 3. Small hiatal hernia. 4. Motion artifact limits evaluation of the coronary arteries.
[2021-10-19] MEDS ORDERED: AMPICILLIN-SULBACTAM 3 GM in SODIUM CHLORIDE 0.9% 100 ML IVPB STA (12:52)
[2021-10-19] MEDS ORDERED: HEPARIN SODIUM 1,000 UN/ML (10ML VL) IV ONE (12:59)
[2021-10-19] MEDS ORDERED: NITROGLYCERIN SL TABS 0.4 MG TAB SUBLINGUAL PRN (13:37)
--- NOTE | 2021-10-19 14:00 | P.CRDCN ---
History of Present Illness History of present illness: Patient is a pleasant 66-year-old male with history of recent inferior STEMI on 10/15/2021 s/p balloon angioplasty mid RCA in-stent stenosis, PCI proximal circumflex into the mid circumflex, hypertension hyperlipidemia, paroxysmal atrial fibrillation, coronary artery disease with prior stenting mid RCA in 2013 and PCI to first obtuse marginal branch 06/2019, statin intolerance, chronic kid gilmer disease, alcohol use, marijuana, and chronic pain. He follows with Dr. Patrick in the office. We are consulted for chest pain and elevated troponin. He presents to the ER with complaints of lower abdominal pain and nausea. Patient was discharged on 10/17/2021, he states overall he has been recovering at home. Yesterday, he endorsed increased left lower abdominal pain, it has progressively gotten worse and presented to the emergency department for further evaluation. He has also endorses intermittent non-radiating, non-exertional shortness of breath and chest discomfort, comes and goes. Describes it as sharp and completely different than the symptoms he had when he presented to the ER as a S [facility]. He also endorses some lightheadedness occasionally and does fall asleep quickly/feels as if he may have passed out. He denies any palpitations, vomiting, orthopnea or PND, or LE edema. Endorses some occasional diarrhea. Patient seen and examined in the ER, denies any current chest pain or shortness of breath. DIAGNOSTICS * EKG: Sinus rhythm HR 82, first degree AV block, non-specific ST abnormalities inferiorly, that have improved from prior EKG * Labs, troponin 5.2, sodium 138, potassium 3.9, BUN 18, serum creatinine 1.1, magnesium 2.0, CBC unremarkable * Thoracic aorta CT reported no evidence for thoracic aortic dissection, aortic aneurysm or acute vascular process. Patent great vessels of the thoracic abdominal aorta. Uncomplicated sigmoid colon Diverticulitis, small hiatal hernia, motion artifact limits evaluation of coronary arteries. * Echocardiogram 10/15/2021 revealed EF 5560 percent, moderate LVH, * Cardiac catheterization 10/15/2021: CAD with 70% RCA stenosis, 70% proximal circumflex stenosis, 99% mid circumflex stenosis and mild disease of the LAD. S/p balloon angioplasty mid RCA in-stent stenosis. S/p PCI proximal circumflex into mid circumflex. Elevated left sided filling pressures REVIEW OF SYSTEMS At the time of my exam: CONSTITUTIONAL: Denies fever or chills. CARDIOVASCULAR: Denies chest pain, no shortness of breath, orthopnea, PND or palpitations. RESPIRATORY: Denies cough. GASTROINTESTINAL: + abdominal pain, +diarrhea, +nausea, no vomiting. MUSCULOSKELETAL: Denies myalgias. NEUROLOGIC: Denies numbness, tingling or weakness. ENDOCRINE: Denies fatigue, weight change, polydipsia or polyurina. GENITOURINARY: Denies burning, hematuria or urgency with micturation. HEMATOLOGIC: Denies history of anemia or bleeding. PHYSICAL EXAMINATION Blood pressure 117/78, heart rate 55, afebrile, oxygen saturation 98% on room air CONSTITUTIONAL: No apparent distress. HEENT: Head is normocephalic. Pupils are equal, round. Sclerae anicteric. Mucous membranes of the mouth are moist. No JVD. No carotid bruit. CHEST EXAMINATION: Lungs are clear to auscultation. No chest wall tenderness is noted on palpation or with deep breathing. HEART EXAMINATION: Regular rate and rhythm. S1, S2 heard. No murmurs, gallops or rub. ABDOMEN: Soft, nontender. Positive bowel sounds. EXTREMITIES: 2+ peripheral pulses, no lower extremity edema and no calf tenderness. NEUROLOGIC EXAMINATION: Patient is awake, alert and oriented x3. ASSESSMENT Abdominal pain Diverticulitis reported on CT Elevated troponin, likely related to recent STEMI and stenting, will trend Intermittent chest discomfort, resolved, patient describes symptoms different from recent MT Recent inferior STEMI on 10/15/2021 s/p balloon angioplasty mid RCA in-stent stenosis. S/p PCI proximal circumflex into mid circumflex Coronary artery disease with prior history of stenting to mid RCA in 2013 and PCI to first obtuse marginal branch 06/2019 Alcohol use Marijuana abuse Hypertension Hyperlipidemia PLAN Continue IV heparin Trend troponin Repeat EKG Continue dual antiplatelet therapy with aspirin and Brilinta Continue Zetia, imdur and beta jeri IV antibiotics started in ER Patient is intolerant to statins Continue on cardiac telemetry Further recommendations based on clinical course Nurse practitioner note has been reviewed by physician. Signing provider agrees with the documented findings, assessment, and plan of care. Past Medical History Past Medical History: Atrial Fibrillation, Coronary Artery Disease (CAD), Chest Pain / Angina, Deep Vein Thrombosis (DVT), GERD/Reflux, GI Bleed, Hyperlipidemia, Hypertension, Myocardial Infarction (MT), Musculoskeletal Disorder, Osteoarthritis (OA), Pneumonia, Renal Disease, Syncope, Thyroid Disorder Additional Past Medical History / Comment(s): Paroxysmal afib, fell 12 weeks ago and fractured stenum/ribs, episodes of acute renal failure associated with dehydration, ckd stage IV, past melana stools, diverticulitis, IBS, return of hiatal hernia, bronchitis, hypothyroid, chronic low back pain with bilateral sciatica, lumbar DDD, past migraines, DJD, numbness/tingling bilateral legs/feet, 4 DVTs L leg surgically removed. covid + July 2021 Last Myocardial Infarction Date:: 10/15/21 History of Any Multi-Drug Resistant Organisms: None Reported Past Surgical History: Back Surgery, Cholecystectomy, Heart Catheterization, Heart Catheterization With Stent, Hernia Repair, Orthopedic Surgery Additional Past Surgical History / Comment(s): Back fusions L3-L5, ORIF L ankle, L hand fracture with surgery, R knee arthroscopy x2, R elbow tendon release, R shoulder arthroscopy, lumbar spine cyst removed, pain clinic procedures, taylor fundoplication, EGD, colonoscopy, 2019 arteriogram/thrombus extraction at [facility]. PTCA w/ 3 stents now Past Anesthesia/Blood Transfusion Reactions: No Reported Reaction Date of Last Stent Placement:: 10/15/21 Past Psychological History: No Psychological Hx Reported, Depression Smoking Status: Former smoker Past Alcohol Use History: Occasional Past Drug Use History: Marijuana - Past Family History Mother Family Medical History: Thyroid Disorder Additional Family Medical History / Comment(s): Mother is living. Father Family Medical History: Coronary Artery Disease (CAD), Diabetes Mellitus Additional Family Medical History / Comment(s): Father had CABG. He at the age of 84 yrs in a MVA. Sister(s) Family Medical History: Cancer Additional Family Medical History / Comment(s): SKIN CA/ #2 sister had thyroid cancer Medications and Allergies Home Medications Medication Instructions Recorded Confirmed Type cloNIDine HCL 0.1 mg PO BID 11/16/15 10/19/21 History Levothyroxine Sodium [Synthroid] 75 mcg PO DAILY 05/04/16 10/19/21 History Omeprazole 20 mg PO BID 05/04/16 10/19/21 History Escitalopram [Lexapro] 20 mg PO DAILY 12/16/16 10/19/21 History Nitroglycerin Sl Tabs [Nitrostat] 0.4 mg SL Q5M PRN 07/23/21 10/19/21 History Baclofen 10 mg PO BID PRN 09/07/21 10/19/21 History Aspirin 81 mg PO DAILY #30 tab 10/17/21 10/19/21 Rx Ezetimibe [Zetia] 10 mg PO DAILY #30 tab 10/17/21 10/19/21 Rx Folic Acid 1 mg PO DAILY #30 tab 10/17/21 10/19/21 Rx Isosorbide Mononitrate ER [Imdur] 30 mg PO DAILY #30 tab 10/17/21 10/19/21 Rx Thiamine [Vitamin B-1] 100 mg PO DAILY #30 tab 10/17/21 10/19/21 Rx Ticagrelor [Brilinta] 90 mg PO BID #60 tab 10/17/21 10/19/21 Rx Metoprolol Succinate [Metoprolol 25 mg PO DAILY 10/19/21 10/19/21 History Succinate ER] Multivitamins, Thera [Multivitamin 1 tab PO DAILY 10/19/21 10/19/21 History (formulary)] amLODIPine [Norvasc] 10 mg PO DAILY 10/19/21 10/19/21 History Allergies Allergy/AdvReac Type Severity Reaction Status Date / Time rivaroxaban [From Xarelto] AdvReac Severe Nausea & Verified 10/19/21 12:26 Vomiting & Diarrhea paroxetine HCl [From Paxil] AdvReac Unknown Nausea & Verified 10/19/21 12:26 Vomiting & Diarrhea apixaban [From Eliquis] AdvReac Nausea & Verified 10/19/21 12:26 Vomiting & Diarrhea atorvastatin [From Lipitor] AdvReac Nausea & Verified 10/19/21 12:26 Vomiting & Diarrhea Beta-Blockers AdvReac Nausea & Verified 10/19/21 12:26 (Beta-Adrenergic Bloc Vomiting & Diarrhea gabapentin AdvReac Nausea & Verified 10/19/21 12:26 Vomiting & Diarrhea [id number] Reductase AdvReac Nausea & Verified 10/19/21 12:26 Inhibitor Vomiting & Diarrhea warfarin AdvReac Nausea & Verified 10/19/21 12:26 Vomiting & Diarrhea Physical Exam Vitals: Vital Signs Temp Pulse Resp BP Pulse Ox 10/19/21 10:46 98 F 55 L 24 117/78 98 Intake and Output 09/11/22 09/12/22 09/12/22 22:59 06:59 14:59 Other: Weight 97.522 kg Results 10/19/21 11:43 10/19/21 11:43 Cardiac Enzymes 10/19/21 10/19/21 Range/Units 11:43 11:43 AST 45 (17-59) U/L Troponin I 5.240 H* (0.000-0.034) ng/mL Coagulation 10/19/21 Range/Units 11:43 PT 10.7 (9.0-12.0) sec APTT 22.7 (22.0-30.0) sec CBC 10/19/21 Range/Units 11:43 WBC 8.5 (3.8-10.6) k/uL RBC 4.44 (4.30-5.90) m/uL Hgb 13.8 (13.0-17.5) gm/dL Hct 39.1 (39.0-53.0) % Plt Count 285 (150-450) k/uL Comprehensive Metabolic Panel 10/19/21 Range/Units 11:43 Sodium 138 (137-145) mmol/L Potassium 3.9 (3.5-5.1) mmol/L Chloride 105 (98-107) mmol/L Carbon Dioxide 20 L (22-30) mmol/L BUN 18 (9-20) mg/dL Creatinine 1.12 (0.66-1.25) mg/dL Glucose 111 H (74-99) mg/dL Calcium 9.7 (8.4-10.2) mg/dL AST 45 (17-59) U/L ALT 34 (4-49) U/L Alkaline Phosphatase 98 (38-126) U/L Total Protein 6.7 (6.3-8.2) g/dL Albumin 4.3 (3.5-5.0) g/dL Current Medications Generic Name Dose Route Start Last Admin Trade Name Freq PRN Reason Stop Dose Admin Ampicillin Sodium/Sulbactam 100 mls @ 200 mls/hr 10/19/21 12:52 Sodium 3 gm/ Sodium Chloride IVPB 10/19/21 13:21 ONCE STA Protocol Ampicillin Sodium/Sulbactam 100 mls @ 200 mls/hr 10/19/21 16:00 Sodium 3 gm/ Sodium Chloride IVPB Q8HR [facility] Protocol Heparin Sodium/Sodium Chloride 250 mls @ 11.703 mls/hr 10/19/21 13:00 25,000 unit/ Sodium Chloride IV .[id number] [facility] Protocol 12 UNITS/KG/HR Intake and Output 10/18/21 10/19/21 10/19/21 22:59 06:59 14:59 Other: Weight 97.522 kg Patient Weight 10/20/21 06:59 Weight 97.522 kg 10/19/21 11:43 10/19/21 11:43
[2021-10-19] MEDS: HEPARIN SOD,PORK IN 0.45% NACL 25,000 UNIT in 0.45% NACL 1 250ML.BAG IV SCH (14:25)
[2021-10-19] MEDS: NITROGLYCERIN OINT 1 INCH/GM PACKET TOPICAL SCH (17:48)
[2021-10-19] MEDS: AMPICILLIN-SULBACTAM 3 GM in SODIUM CHLORIDE 0.9% 100 ML IVPB SCH (21:42)
[2021-10-19] MEDS: TICAGRELOR 90 MG TAB PO SCH (21:42)
[2021-10-19] MEDS: PANTOPRAZOLE 40 MG TABLET PO SCH (21:42)
[2021-10-19] MEDS: MORPHINE SULFATE 4 MG/ML SYRINGE IVP PRN (21:53)
--- NOTE | 2021-10-19 23:50 | P.HPIM ---
History of Present Illness H&P Date: 10/19/21 Chief Complaint: Abdominal pain Patient is a 66-year-old male with a known history of coronary disease status post stent placement on 10/16/2019, history of DVT, GERD, GI bleed, hyperlipidemia, hypertension, history of LA, osteoarthritis and prior history of smoking and other multiple medical problems presents to ER with complaints of left lower quadrant abdominal pain. Patient was discharged home on 10/17/2021 and has been feeling well. Patient states that he started having left lower quadrant abdominal pain on Tuesday and also having mid retrosternal chest pain no radiation of the pain. Still some nausea. No episodes of vomiting. Sharp pain. Patient has having significant coughing and almost passed out. Complains of shortness of breath also. No complaints of fever or chills. Denies any palpitations. No leg swelling. EKG showed sinus rhythm with nonspecific ST-T wave abnormalities in the inferior leads. CT thoracic aorta showed no evidence of thoracic aortic dissection, aortic aneurysm or acute vascular process. Moderate atherosclerotic throughout the ar terial vasculature. Patent great results of the thoracic and abdominal aorta. Uncomplicated sigmoid: Diverticulitis. Small hiatal hernia. Motion artifact limits evaluation of coronary arteries. Laboratory test showed WBC 8.5 hemoglobin 13.8 and platelets 285 Sodium 138 potassium 3.9 chloride 104 bicarb is 20 BUN 18 and creatinine 1.12 Liver enzymes are not elevated 12.5.2, 5.5, 5.2. Review of Systems Constitutional: Patient denies any fever or chills . Generalized weakness. Abdomen: Patient does have nausea no vomiting. Left lower quadrant abdominal pain. Cardiovascular: Patient does have sharp chest pain and cough and shortness of breath. No leg swelling or palpitations Patient does have cough without sputum production. Respiratory: Patient does have cough without sputum production.. Positive shortness of breath Neurologic: Patient denied any numbness or tingling headache. Musculoskeletal: Patient denies any complaints of joint swelling or deformity. Skin: Negative Psychiatric: Negative Endocrine: No heat or cold intolerance. No recent weight gain. Genitourinary: No dysuria or hematuria. All other 14 point ROS negative except the above Past Medical History Past Medical History: Atrial Fibrillation, Coronary Artery Disease (CAD), Chest Pain / Angina, Deep Vein Thrombosis (DVT), GERD/Reflux, GI Bleed, Hyperlipidemia, Hypertension, Myocardial Infarction (LA), Musculoskeletal Disorder, Osteoarthritis (OA), Pneumonia, Renal Disease, Syncope, Thyroid Disorder Additional Past Medical History / Comment(s): Paroxysmal afib, fell 12 weeks ago and fractured stenum/ribs, episodes of acute renal failure associated with dehydration, ckd stage IV, past melana stools, diverticulitis, IBS, return of hiatal hernia, bronchitis, hypothyroid, chronic low back pain with bilateral sciatica, lumbar DDD, past migraines, DJD, numbness/tingling bilateral legs/feet, 4 DVTs L leg surgically removed. covid + July 2021 Last Myocardial Infarction Date:: 10/15/21 History of Any Multi-Drug Resistant Organisms: None Reported Past Surgical History: Back Surgery, Cholecystectomy, Heart Catheterization, Heart Catheterization With Stent, Hernia Repair, Orthopedic Surgery Additional Past Surgical History / Comment(s): Back fusions L3-L5, ORIF L ankle, L hand fracture with surgery, R knee arthroscopy x2, R elbow tendon release, R shoulder arthroscopy, lumbar spine cyst removed, pain clinic procedures, taylor fundoplication, EGD, colonoscopy, 2019 arteriogram/thrombus extraction at [facility]. PTCA w/ 3 stents now Past Anesthesia/Blood Transfusion Reactions: No Reported Reaction Date of Last Stent Placement:: 10/15/21 Past Psychological History: No Psychological Hx Reported, Depression Smoking Status: Former smoker Past Alcohol Use History: Occasional Past Drug Use History: Marijuana - Past Family History Mother Family Medical History: Thyroid Disorder Additional Family Medical History / Comment(s): Mother is living. Father Family Medical History: Coronary Artery Disease (CAD), Diabetes Mellitus Additional Family Medical History / Comment(s): Father had CABG. He at the age of 84 yrs in a MVA. Sister(s) Family Medical History: Cancer Additional Family Medical History / Comment(s): SKIN CA/ #2 sister had thyroid cancer Medications and Allergies Home Medications Medication Instructions Recorded Confirmed Type cloNIDine HCL 0.1 mg PO BID 11/16/15 10/19/21 History Levothyroxine Sodium [Synthroid] 75 mcg PO DAILY 05/04/16 10/19/21 History Omeprazole 20 mg PO BID 05/04/16 10/19/21 History Escitalopram [Lexapro] 20 mg PO DAILY 12/16/16 10/19/21 History Nitroglycerin Sl Tabs [Nitrostat] 0.4 mg SL Q5M PRN 07/23/21 10/19/21 History Baclofen 10 mg PO BID PRN 09/07/21 10/19/21 History Aspirin 81 mg PO DAILY #30 tab 10/17/21 10/19/21 Rx Ezetimibe [Zetia] 10 mg PO DAILY #30 tab 10/17/21 10/19/21 Rx Folic Acid 1 mg PO DAILY #30 tab 10/17/21 10/19/21 Rx Isosorbide Mononitrate ER [Imdur] 30 mg PO DAILY #30 tab 10/17/21 10/19/21 Rx Thiamine [Vitamin B-1] 100 mg PO DAILY #30 tab 10/17/21 10/19/21 Rx Ticagrelor [Brilinta] 90 mg PO BID #60 tab 10/17/21 10/19/21 Rx Metoprolol Succinate [Metoprolol 25 mg PO DAILY 10/19/21 10/19/21 History Succinate ER] Multivitamins, Thera [Multivitamin 1 tab PO DAILY 10/19/21 10/19/21 History (formulary)] amLODIPine [Norvasc] 10 mg PO DAILY 10/19/21 10/19/21 History Allergies Allergy/AdvReac Type Severity Reaction Status Date / Time rivaroxaban [From Xarelto] AdvReac Severe Nausea & Verified 10/19/21 12:26 Vomiting & Diarrhea paroxetine HCl [From Paxil] AdvReac Unknown Nausea & Verified 10/19/21 12:26 Vomiting & Diarrhea apixaban [From Eliquis] AdvReac Nausea & Verified 10/19/21 12:26 Vomiting & Diarrhea atorvastatin [From Lipitor] AdvReac Nausea & Verified 10/19/21 12:26 Vomiting & Diarrhea Beta-Blockers AdvReac Nausea & Verified 10/19/21 12:26 (Beta-Adrenergic Bloc Vomiting & Diarrhea gabapentin AdvReac Nausea & Verified 10/19/21 12:26 Vomiting & Diarrhea Icbellh-XJM-ZoU Reductase AdvReac Nausea & Verified 10/19/21 12:26 Inhibitor Vomiting & Diarrhea warfarin AdvReac Nausea & Verified 10/19/21 12:26 Vomiting & Diarrhea Physical Exam Vitals: Vital Signs Temp Pulse Resp BP Pulse Ox 10/19/21 10:46 98 F 55 L 24 117/78 98 Intake and Output 10/18/21 10/19/21 10/19/21 22:59 06:59 14:59 Other: Weight 97.522 kg PHYSICAL EXAMINATION: Patient is lying in the bed comfortably, appears to be in mild distress., awake alert and oriented.. HEENT: Normocephalic. Neck is supple. Pupils reactive. Nostrils clear. Oral cavity is moist. Neck reveals no JVD, carotid bruits, or thyromegaly. CHEST EXAMINATION: Trachea is central. Symmetrical expansion. Lung lora clear to auscultation and percussion. Bibasilar diminished sounds. No wheezing or crackles. CARDIAC: Normal S1, S2 with no gallops. No murmurs ABDOMEN: Soft. Bowel sounds present. Nontender. No organomegaly. No abdominal bruits. Extremities: reveal no edema. No clubbing or cyanosis Neurologically awake, alert, oriented x3 with well-coordinated movements. No focal deficits noted Skin: No rash or skin lesions. Psychiatric: Coperative. Nonsuicidal, Musculoskeletal: No joint swelling or deformity. Normal range of motion. Results CBC & Chem 7: 10/19/21 11:43 10/19/21 11:43 Labs: Abnormal Lab Results - Last 24 Hours (Table) 10/19/21 10/19/21 Range/Units 11:43 11:43 Carbon Dioxide 20 L (22-30) mmol/L Glucose 111 H (74-99) mg/dL Troponin I 5.240 H* (0.000-0.034) ng/mL Thrombosis Risk Factor Assmnt - DVT/VTE Prophylaxis DVT/VTE Prophylaxis: Pharmacologic Prophylaxis ordered Assessment and Plan Assessment: Left lower quadrant abdominal pain secondary to sigmoid diverticulitis uncomplicated. Chest pressure/discomfort and cough Related troponin level likely due to recent STEMI status post stent placement Recent NSTEMI with balloon angioplasty mid RCA in-stent stenosis. Status post PCI proximal circumflex and mid circumflex. On 10/15/2021 Coronary disease with history of previous stenting in 2013 History of GI bleed Hypertension Hyperlipidemia History of LA Osteoarthritis Hypothyroidism Chronically disease stage IV History of diverticulitis Chronic low back pain Degenerative disc disease For his history of smoking Occasional marijuana use Anxiety/depression Alcohol abuse history DVT prophylaxis Plan: Patient will be current on telemetry monitoring. Started on heparin drip plan trending troponins. Currently patient denies any complaints of chest pain. Continue with aspirin, Brilinta and statins and Toprol-XL. Patient will be continued on antibiotics in the form of Unasyn and gentle IV hydration. Nothing by mouth.We will start an oral diet once abdominal pain improves. Symptomatic management for nausea. Follow-up CBC and BMP. Cardiology is on board. Time with Patient: Greater than 30
[2021-10-20] MEDS: NITROGLYCERIN OINT 1 INCH/GM PACKET TOPICAL SCH ×4 (00:19→17:07)
[2021-10-20] MEDS: SODIUM CHLORIDE 0.9% 1,000 ML IV SCH ×2 (00:19→15:51)
[2021-10-20] MEDS: MORPHINE SULFATE 4 MG/ML SYRINGE IVP PRN ×3 (01:35→10:16)
[2021-10-20] MEDS: AMPICILLIN-SULBACTAM 3 GM in SODIUM CHLORIDE 0.9% 100 ML IVPB SCH ×3 (06:11→17:24)
[2021-10-20] MEDS: LEVOTHYROXINE 75 MCG TAB PO SCH (06:12)
[2021-10-20] MEDS: PANTOPRAZOLE 40 MG TABLET PO SCH ×2 (06:12→17:23)
[2021-10-20 08:55] LABS: Basophils % (A) 0 %; Eosinophils # (A) 0.2 k/uL (0-0.7); Eosinophils % (A) 3 %; HCT 36.6 % (39.0-53.0); HGB 12.8 gm/dL (13.0-17.5); Lymphocytes # (A) 1.5 k/uL (1.0-4.8); Lymphocytes % (A) 22 %; MCH 31.1 pg (25.0-35.0); MCHC 34.9 g/dL (31.0-37.0); MCV 89.2 fL (80.0-100.0); Mean Platelet Volume 7.6; Monocytes # (A) 0.6 k/uL (0-1.0); Monocytes % (A) 8 %; Neutrophils # (A) 4.4 k/uL (1.3-7.7); Neutrophils % (A) 64 %; Platelet Count 229 k/uL (150-450); RDW 13.7 % (11.5-15.5); WBC 6.9 k/uL (3.8-10.6)
[2021-10-20] MEDS ORDERED: ASPIRIN 325 MG TAB PO SCH (09:00)
[2021-10-20] MEDS ORDERED: METOPROLOL SUCCINATE (ER) 25 MG TAB.ER.24H PO SCH (09:00)
[2021-10-20] MEDS ORDERED: FAMOTIDINE 20 MG TAB PO SCH (09:00)
[2021-10-20] MEDS: ESCITALOPRAM 20 MG TAB PO SCH (09:31)
[2021-10-20] MEDS: TICAGRELOR 90 MG TAB PO SCH ×2 (09:31→21:11)
[2021-10-20] MEDS: ISOSORBIDE MONONITRATE ER 30 MG TAB.ER.24H PO SCH (09:32)
[2021-10-20] MEDS: THIAMINE 100 MG TAB PO SCH (09:32)
[2021-10-20] MEDS: METOPROLOL SUCCINATE (ER) 50 MG TAB.ER.24H PO SCH (09:32)
[2021-10-20] MEDS: ASPIRIN 81 MG PO SCH (09:32)
[2021-10-20] MEDS ORDERED: VANCOMYCIN IV PER PHARMACY 1 EACH MISC MISCELLANE PRN (09:32)
[2021-10-20] MEDS: EZETIMIBE 10 MG TAB PO SCH (09:33)
[2021-10-20] MEDS: HEPARIN SOD,PORK IN 0.45% NACL 25,000 UNIT in 0.45% NACL 1 250ML.BAG IV SCH (09:34)
[2021-10-20 09:52] LABS: African American GFR (CKD) >90 (>60 ml/min/1.73 sqM); Anion Gap 11 mmol/L; Blood Urea Nitrogen 14 mg/dL (9-20); Calcium 8.6 mg/dL (8.4-10.2); Carbon Dioxide 23 mmol/L (22-30); Chloride 102 mmol/L (98-107); Glucose 106 mg/dL (74-99); Non-African American GFR(CKD) 78 (>60 ml/min/1.73 sqM); Sodium 136 mmol/L (137-145)
[2021-10-20] MEDS: VANCOMYCIN 1,500 MG in SODIUM CHLORIDE 0.9% 250 ML IVPB SCH ×2 (10:16→21:11)
--- NOTE | 2021-10-20 11:34 | P.PN ---
Subjective Patient is a pleasant 66-year-old male with history of recent inferior STEMI on 10/15/2021 s/p balloon angioplasty mid RCA in-stent stenosis, PCI proximal circumflex into the mid circumflex, hypertension hyperlipidemia, paroxysmal atrial fibrillation, coronary artery disease with prior stenting mid RCA in 2013 and PCI to first obtuse marginal branch 06/2019, statin intolerance, chronic kidney disease, alcohol use, marijuana, and chronic pain. He follows with Dr. Patrick in the office. We are consulted for chest pain and elevated troponin. He presents to the ER with complaints of lower abdominal pain and nausea. Patient was discharged on 10/17/2021, he states overall he has been recovering at home. Yesterday, he endorsed increased left lower abdominal pain, it has progressively gotten worse and presented to the emergency department for further evaluation. DIAGNOSTICS * Thoracic aorta CT reported no evidence for thoracic aortic dissection, aortic aneurysm or acute vascular process. Patent great vessels of the thoracic abdominal aorta. Uncomplicated sigmoid colon Diverticulitis, small hiatal hernia, motion artifact limits evaluation of coronary arteries. * Echocardiogram 10/15/2021 revealed EF 5560 percent, moderate LVH, * Cardiac catheterization 10/15/2021: CAD with 70% RCA stenosis, 70% proximal circumflex stenosis, 99% mid circumflex stenosis and mild disease of the LAD. S/p balloon angioplasty mid RCA in-stent stenosis. S/p PCI proximal circumflex into mid circumflex. Elevated left sided filling pressures 10/20 Patient seen at bedside, continues to have abdominal pain. Denies any chest pain. He is ambulating in the halls with no acute distress and no chest pain or shortness of breath. BP is stable. Labs, Troponin 5.2-->5.3-->5.6. BUN 14, sCr 0.99. Preliminary blood cultures positive for gram positive cocci. PHYSICAL EXAMINATION Vitals reviewed CONSTITUTIONAL: No apparent distress. HEENT: Head is normocephalic. Neck Supple. No JVD. CHEST EXAMINATION: Lungs are clear to auscultation. No chest wall tenderness is noted on palpation or with deep breathing. HEART EXAMINATION: Regular rate and rhythm. S1, S2 heard. No murmurs, gallops or rub. ABDOMEN: Soft, nontender. Positive bowel sounds. EXTREMITIES: 2+ peripheral pulses, no lower extremity edema and no calf tenderness. NEUROLOGIC EXAMINATION: Patient is awake, alert and oriented x3. ASSESSMENT Abdominal pain Diverticulitis reported on CT Elevated troponin, likely related to recent STEMI and stenting, will trend Intermittent chest discomfort, resolved, patient describes symptoms different from recent [place] Recent inferior STEMI on 10/15/2021 s/p balloon angioplasty mid RCA in-stent stenosis. S/p PCI proximal circumflex into mid circumflex Coronary artery disease with prior history of stenting to mid RCA in 2013 and PCI to first obtuse marginal branch 06/2019 Alcohol use Marijuana abuse Hypertension Hyperlipidemia PLAN Troponin trend now flat, patient without any chest pain or shortness of breath. Ambulating in the halls today without any shortness of breath or chest discomfort. Continue dual antiplatelet therapy with aspirin and Brilinta Continue Zetia, imdur and beta jeri Currently still on IV antibiotics Patient is intolerant to statins Continue on cardiac telemetry No plans for cardiac catheterization at this time Further recommendations based on clinical course Nurse practitioner note has been reviewed by physician. Signing provider agrees with the documented findings, assessment, and plan of care. Objective - Vital Signs Vital signs: Vital Signs Temp 98.5 F 10/20/21 08:00 Pulse 68 10/20/21 08:00 Resp 16 10/20/21 08:00 BP 144/88 10/20/21 08:00 Pulse Ox 98 10/20/21 08:00 FiO2 Intake & Output 10/19/21 10/20/21 10/20/21 18:59 06:59 18:59 Intake Total 297.667 121.409 Output Total 1000 200 Balance -702.333 -78.591 Weight 97.522 kg 97.522 kg Intake: Intake, IV Titration 297.667 121.409 Amount Ampicillin-Sulbactam 3 gm 100 In Sodium Chloride 0.9% 100 ml @ 200 mls/hr IVPB ONCE STA Rx#:[id number] Ampicillin-Sulbactam 3 gm 100 In Sodium Chloride 0.9% 100 ml @ 200 mls/hr IVPB Q8H [facility] Rx#:[id number] Heparin Sod,Pork in 0.45% 97.667 121.409 NaCl 25,000 unit In 0.45 % NaCl 1 250ml.bag @ 10. 254 UNITS/KG/HR 10 mls/hr IV .Q24H [facility] Rx#: [id number] Output: Urine 1000 200 - Labs CBC & Chem 7: 10/20/21 08:06 10/20/21 08:06 Labs: Abnormal Lab Results - Last 24 Hours (Table) 10/19/21 10/19/21 10/19/21 Range/Units 11:43 11:43 14:54 RBC (4.30-5.90) m/uL Hgb (13.0-17.5) gm/dL Hct (39.0-53.0) % APTT (22.0-30.0) sec Sodium (137-145) mmol/L Carbon Dioxide 20 L (22-30) mmol/L Glucose 111 H (74-99) mg/dL Troponin I 5.240 H* 5.510 H* (0.000-0.034) ng/mL 10/19/21 10/19/21 10/19/21 Range/Units 17:55 21:22 23:58 RBC (4.30-5.90) m/uL Hgb (13.0-17.5) gm/dL Hct (39.0-53.0) % APTT (22.0-30.0) sec Sodium (137-145) mmol/L Carbon Dioxide (22-30) mmol/L Glucose (74-99) mg/dL Troponin I 5.240 H* 5.360 H* 5.610 H* (0.000-0.034) ng/mL 10/20/21 10/20/21 10/20/21 Range/Units 08:06 08:06 08:06 RBC 4.10 L (4.30-5.90) m/uL Hgb 12.8 L (13.0-17.5) gm/dL Hct 36.6 L (39.0-53.0) % APTT 36.8 H (22.0-30.0) sec Sodium 136 L (137-145) mmol/L Carbon Dioxide (22-30) mmol/L Glucose 106 H (74-99) mg/dL Troponin I (0.000-0.034) ng/mL Microbiology - Last 24 Hours (Table) 10/19/21 13:15 Blood Culture Gram Stain - Preliminary Blood 10/19/21 13:15 Blood Culture - Final Blood
[2021-10-20 18:57] LABS: LDL Cholesterol,Calculated 89.9 mg/dL (0.0-131.0)
[2021-10-20] MEDS: KETOROLAC 15 MG/ML 1 ML VIAL IVP SCH (21:19)
--- NOTE | 2021-10-20 23:40 | P.CONS ---
History of Present Illness - Reason for Consult Consult date: 10/20/21 - History of Present Illness Patient is a 66-year-old male who was recently admitted to this hospital status post PTCA and stent on last and the patient was discharged home on Tuesday patient now presenting to the hospital with left lower abdominal pain that apparently started the day before presentation to the hospital patient has been describing the pain to be more of a dull aching to sharp 6-7 out of 10 and no radiation patient has been feeling Nauseated but no vomiting and denies having any diarrhea patient on presentation to the hospital was afebrile patient did have a normal white count did have elevated troponin creatinine has been normal patient did have a thoracic aorta CT no evidence of thoracic aortic dissection did shows uncomplicated sigmoid colon diverticulitis patient was started on urine sent Unasyn however his blood cultures came back positive with gram-positive cocci antibiotic was switched over to vancomycin infectious he was consulted for further management of antibiotic therapy Past Medical History Past Medical History: Atrial Fibrillation, Coronary Artery Disease (CAD), Chest Pain / Angina, Deep Vein Thrombosis (DVT), GERD/Reflux, GI Bleed, Hyperlipidemia, Hypertension, Myocardial Infarction (CO), Musculoskeletal Disorder, Osteoarthritis (OA), Pneumonia, Renal Disease, Syncope, Thyroid Disorder Additional Past Medical History / Comment(s): Paroxysmal afib, fell 12 weeks ago and fractured stenum/ribs, episodes of acute renal failure associated with dehydration, ckd stage IV, past melana stools, diverticulitis, IBS, return of hiatal hernia, bronchitis, hypothyroid, chronic low back pain with bilateral sciatica, lumbar DDD, past migraines, DJD, numbness/tingling bilateral legs/feet, 4 DVTs L leg surgically removed. covid + July 2021 Last Myocardial Infarction Date:: 10/15/21 History of Any Multi-Drug Resistant Organisms: None Reported Past Surgical History: Back Surgery, Cholecystectomy, Heart Catheterization, He art Catheterization With Stent, Hernia Repair, Orthopedic Surgery Additional Past Surgical History / Comment(s): Back fusions L3-L5, ORIF L ankle, L hand fracture with surgery, R knee arthroscopy x2, R elbow tendon release, R shoulder arthroscopy, lumbar spine cyst removed, pain clinic procedures, taylor fundoplication, EGD, colonoscopy, 2019 arteriogram/thrombus extraction at [facility]. PTCA w/ 3 stents now Past Anesthesia/Blood Transfusion Reactions: No Reported Reaction Date of Last Stent Placement:: 10/15/21 Past Psychological History: No Psychological Hx Reported, Depression Smoking Status: Former smoker Past Alcohol Use History: Occasional Past Drug Use History: Marijuana - Past Family History Mother Family Medical History: Thyroid Disorder Additional Family Medical History / Comment(s): Mother is living. Father Family Medical History: Coronary Artery Disease (CAD), Diabetes Mellitus Additional Family Medical History / Comment(s): Father had CABG. He at the age of 84 yrs in a MVA. Sister(s) Family Medical History: Cancer Additional Family Medical History / Comment(s): SKIN CA/ #2 sister had thyroid c ancer Medications and Allergies Home Medications Medication Instructions Recorded Confirmed Type cloNIDine HCL 0.1 mg PO BID 11/16/15 10/19/21 History Levothyroxine Sodium [Synthroid] 75 mcg PO DAILY 05/04/16 10/19/21 History Omeprazole 20 mg PO BID 05/04/16 10/19/21 History Escitalopram [Lexapro] 20 mg PO DAILY 12/16/16 10/19/21 History Nitroglycerin Sl Tabs [Nitrostat] 0.4 mg SL Q5M PRN 07/23/21 10/19/21 History Baclofen 10 mg PO BID PRN 09/07/21 10/19/21 History Aspirin 81 mg PO DAILY #30 tab 10/17/21 10/19/21 Rx Ezetimibe [Zetia] 10 mg PO DAILY #30 tab 10/17/21 10/19/21 Rx Folic Acid 1 mg PO DAILY #30 tab 10/17/21 10/19/21 Rx Isosorbide Mononitrate ER [Imdur] 30 mg PO DAILY #30 tab 10/17/21 10/19/21 Rx Thiamine [Vitamin B-1] 100 mg PO DAILY #30 tab 10/17/21 10/19/21 Rx Ticagrelor [Brilinta] 90 mg PO BID #60 tab 10/17/21 10/19/21 Rx Metoprolol Succinate [Metoprolol 25 mg PO DAILY 10/19/21 10/19/21 History Succinate ER] Multivitamins, Thera [Multivitamin 1 tab PO DAILY 10/19/21 10/19/21 History (formulary)] amLODIPine [Norvasc] 10 mg PO DAILY 10/19/21 10/19/21 History Allergies Allergy/AdvReac Type Severity Reaction Status Date / Time rivaroxaban [From Xarelto] AdvReac Severe Nausea & Verified 10/19/21 12:26 Vomiting & Diarrhea paroxetine HCl [From Paxil] AdvReac Unknown Nausea & Verified 10/19/21 12:26 Vomiting & Diarrhea apixaban [From Eliquis] AdvReac Nausea & Verified 10/19/21 12:26 Vomiting & Diarrhea atorvastatin [From Lipitor] AdvReac Nausea & Verified 10/19/21 12:26 Vomiting & Diarrhea Beta-Blockers AdvReac Nausea & Verified 10/19/21 12:26 (Beta-Adrenergic Bloc Vomiting & Diarrhea gabapentin AdvReac Nausea & Verified 10/19/21 12:26 Vomiting & Diarrhea Jmbjmiw-QAE-DhO Reductase AdvReac Nausea & Verified 10/19/21 12:26 Inhibitor Vomiting & Diarrhea warfarin AdvReac Nausea & Verified 10/19/21 12:26 Vomiting & Diarrhea Physical Exam Vitals: Vital Signs Temp Pulse Pulse Resp BP BP Pulse Ox 10/20/21 08:00 98.5 F 68 16 144/88 98 10/20/21 04:00 97.9 F 66 18 134/81 99 10/20/21 02:00 75 18 10/20/21 00:00 98.4 F 74 17 108/73 98 10/19/21 20:00 99.0 F 74 17 108/73 98 10/19/21 17:47 74 18 127/88 98 10/19/21 14:00 75 18 98 Intake and Output 10/19/21 10/20/21 10/20/21 22:59 06:59 14:59 Intake Total 100 197.667 121.409 Output Total 500 500 200 Balance -400 -302.333 -78.591 Intake: Intake, IV Titration 100 197.667 121.409 Amount Ampicillin-Sulbactam 3 gm 100 In Sodium Chloride 0.9% 100 ml @ 200 mls/hr IVPB ONCE STA Rx#:[id number] Ampicillin-Sulbactam 3 gm 100 In Sodium Chloride 0.9% 100 ml @ 200 mls/hr IVPB Q8H [facility] Rx#:[id number] Heparin Sod,Pork in 0.45% 97.667 121.409 NaCl 25,000 unit In 0.45 % NaCl 1 250ml.bag @ 10. 254 UNITS/KG/HR 10 mls/hr IV .Q24H [facility] Rx#: [id number] Output: Urine 500 500 200 Other: Weight 97.522 kg Results CBC & Chem 7: 10/20/21 08:06 10/20/21 08:06 Labs: Abnormal Lab Results - Last 24 Hours (Table) 10/19/21 10/19/21 10/19/21 Range/Units 11:43 11:43 14:54 RBC (4.30-5.90) m/uL Hgb (13.0-17.5) gm/dL Hct (39.0-53.0) % APTT (22.0-30.0) sec Sodium (137-145) mmol/L Carbon Dioxide 20 L (22-30) mmol/L Glucose 111 H (74-99) mg/dL Troponin I 5.240 H* 5.510 H* (0.000-0.034) ng/mL 10/19/21 10/19/21 10/19/21 Range/Units 17:55 21:22 23:58 RBC (4.30-5.90) m/uL Hgb (13.0-17.5) gm/dL Hct (39.0-53.0) % APTT (22.0-30.0) sec Sodium (137-145) mmol/L Carbon Dioxide (22-30) mmol/L Glucose (74-99) mg/dL Troponin I 5.240 H* 5.360 H* 5.610 H* (0.000-0.034) ng/mL 10/20/21 10/20/21 10/20/21 Range/Units 08:06 08:06 08:06 RBC 4.10 L (4.30-5.90) m/uL Hgb 12.8 L (13.0-17.5) gm/dL Hct 36.6 L (39.0-53.0) % APTT 36.8 H (22.0-30.0) sec Sodium 136 L (137-145) mmol/L Carbon Dioxide (22-30) mmol/L Glucose 106 H (74-99) mg/dL Troponin I (0.000-0.034) ng/mL Microbiology - Last 24 Hours (Table) 10/19/21 13:15 Blood Culture Gram Stain - Preliminary Blood 10/19/21 13:15 Blood Culture - Final Blood Assessment and Plan Plan: 1patient presented to hospital with left lower quadrant abdominal pain in this patient with evidence of uncomplicated diverticulitis on the CT will need to cover for the enteric gram-negative both aerobes and anaerobes. 2positive blood culture with gram-positive cocci waiting for ID sensitivity with a question of possible skin contaminant if finalized as staph epi. 3blood cultures repeated document clearance of bacteremia. 4continue vancomycin however will restart Unasyn to cover for the diverticulitis we will follow on clinical condition and cultures to further adjust medication if needed Thank you for this consultation will follow this patient along with you
[2021-10-21] MEDS: AMPICILLIN-SULBACTAM 3 GM in SODIUM CHLORIDE 0.9% 100 ML IVPB SCH ×5 (01:00→23:34)
[2021-10-21] MEDS: NITROGLYCERIN OINT 1 INCH/GM PACKET TOPICAL SCH ×2 (01:02→06:53)
[2021-10-21] MEDS: KETOROLAC 15 MG/ML 1 ML VIAL IVP SCH ×6 (05:42→23:34)
[2021-10-21] MEDS: LEVOTHYROXINE 75 MCG TAB PO SCH (06:53)
[2021-10-21] MEDS: PANTOPRAZOLE 40 MG TABLET PO SCH ×2 (06:53→17:28)
[2021-10-21 08:43] LABS: African American GFR (CKD) >90 (>60 ml/min/1.73 sqM); Non-African American GFR(CKD) 81 (>60 ml/min/1.73 sqM)
[2021-10-21] MEDS: ESCITALOPRAM 20 MG TAB PO SCH (09:26)
[2021-10-21] MEDS: ASPIRIN 81 MG PO SCH (09:26)
[2021-10-21] MEDS: EZETIMIBE 10 MG TAB PO SCH (09:26)
[2021-10-21] MEDS: ISOSORBIDE MONONITRATE ER 30 MG TAB.ER.24H PO SCH (09:27)
[2021-10-21] MEDS: TICAGRELOR 90 MG TAB PO SCH ×2 (09:28→20:25)
[2021-10-21] MEDS: THIAMINE 100 MG TAB PO SCH (09:28)
[2021-10-21] MEDS: METOPROLOL SUCCINATE (ER) 50 MG TAB.ER.24H PO SCH (09:41)
--- NOTE | 2021-10-21 11:53 | P.PN ---
Subjective Patient is a pleasant 66-year-old male with history of recent inferior STEMI on 10/15/2021 s/p balloon angioplasty mid RCA in-stent stenosis, PCI proximal circumflex into the mid circumflex, hypertension hyperlipidemia, paroxysmal atrial fibrillation, coronary artery disease with prior stenting mid RCA in 2013 and PCI to first obtuse marginal branch 06/2019, statin intolerance, chronic kidney disease, alcohol use, marijuana, and chronic pain. He follows with Dr. Patrick in the office. We are consulted for chest pain and elevated troponin. He presents to the ER with complaints of lower abdominal pain and nausea. Patient was discharged on 10/17/2021, he states overall he has been recovering at home. Yesterday, he endorsed increased left lower abdominal pain, it has progressively gotten worse and presented to the emergency department for further evaluation. DIAGNOSTICS * Thoracic aorta CT reported no evidence for thoracic aortic dissection, aortic aneurysm or acute vascular process. Patent great vessels of the thoracic abdominal aorta. Uncomplicated sigmoid colon Diverticulitis, small hiatal hernia, motion artifact limits evaluation of coronary arteries. * Echocardiogram 10/15/2021 revealed EF 5560 percent, moderate LVH, * Cardiac catheterization 10/15/2021: CAD with 70% RCA stenosis, 70% proximal circumflex stenosis, 99% mid circumflex stenosis and mild disease of the LAD. S/p balloon angioplasty mid RCA in-stent stenosis. S/p PCI proximal circumflex into mid circumflex. Elevated left sided filling pressures 10/21 Patient seen at bedside, Abdominal pain has improved. Denies any chest pain. He is ambulating in the halls with no acute distress and no chest pain or shortness of breath. BP is stable. Labs, Troponin 5.2-->5.3-->5.6. BUN 14, sCr 0.99. 02/08 blood culture was positive for staphylococcus epidermis, second preliminary blood culture negative growth to date. PHYSICAL EXAMINATION Vitals reviewed CONSTITUTIONAL: No apparent distress. HEENT: Head is normocephalic. Neck Supple. No JVD. CHEST EXAMINATION: Lungs are clear to auscultation. No chest wall tenderness is noted on palpation or with deep breathing. HEART EXAMINATION: Regular rate and rhythm. S1, S2 heard. No murmurs, gallops or rub. ABDOMEN: Soft, nontender. Positive bowel sounds. EXTREMITIES: 2+ peripheral pulses, no lower extremity edema and no calf tenderness. NEUROLOGIC EXAMINATION: Patient is awake, alert and oriented x3. ASSESSMENT Abdominal pain Diverticulitis reported on CT Elevated troponin, likely related to recent STEMI and stenting, will trend Intermittent chest discomfort, resolved, patient describes symptoms different from recent [place] Recent inferior STEMI on 10/15/2021 s/p balloon angioplasty mid RCA in-stent stenosis. S/p PCI proximal circumflex into mid circumflex Coronary artery disease with prior history of stenting to mid RCA in 2013 and PCI to first obtuse marginal branch 06/2019 Alcohol use Marijuana abuse Hypertension Hyperlipidemia PLAN Troponin trend now flat, patient without any chest pain or shortness of breath. Ambulating in the halls today without any shortness of breath or chest discomfort. Continue dual antiplatelet therapy with aspirin and Brilinta Continue Zetia, imdur and beta jeri Currently still on IV antibiotics Patient is intolerant to statins Continue on cardiac telemetry No plans for cardiac catheterization at this time, no further changes from a cardiology perspective patient is stable for discharge when cleared pulmonary and other consultants Follow up outpatient with Dr. Patrick. Patient has follow up appointment on 10/28. Nurse practitioner note has been reviewed by physician. Signing provider agrees with the documented findings, assessment, and plan of care. Objective - Vital Signs Vital signs: Vital Signs Temp 98.2 F 10/21/21 08:00 Pulse 70 10/21/21 08:00 Resp 17 10/21/21 08:00 BP 166/95 10/21/21 08:00 Pulse Ox 100 10/21/21 08:00 FiO2 Intake & Output 10/20/21 10/21/21 10/21/21 18:59 06:59 18:59 Intake Total 771.409 Output Total 200 900 Balance 571.409 -900 Intake: Intake, IV Titration 771.409 Amount Ampicillin-Sulbactam 3 gm 100 In Sodium Chloride 0.9% 100 ml @ 200 mls/hr IVPB Q6HR [facility] Rx#:[id number] Heparin Sod,Pork in 0.45% 121.409 NaCl 25,000 unit In 0.45 % NaCl 1 250ml.bag @ 10. 254 UNITS/KG/HR 10 mls/hr IV .Q24H [facility] Rx#: [id number] Sodium Chloride 0.9% 1, 300 000 ml @ 75 mls/hr IV . [id number] [facility] Rx#:[id number] Vancomycin 1,500 mg In 250 Sodium Chloride 0.9% 250 ml @ 125 mls/hr IVPB Q12HR [facility] Rx#:[id number] Output: Urine 200 900 Other: Voiding Method Urinal # Voids 2 1 - Labs CBC & Chem 7: 10/20/21 08:06 10/21/21 08:04 Labs: Microbiology - Last 24 Hours (Table) 10/20/21 09:40 Blood Culture - Preliminary Blood No Growth after 24 hours 10/19/21 13:15 Blood Culture Gram Stain - Final Blood Blood Culture - Final Staphylococcus epidermidis 10/19/21 13:00 Blood Culture - Preliminary Blood No Growth after 24 hours 10/19/21 13:15 Blood Culture - Final Blood
--- NOTE | 2021-10-21 16:38 | P.PN ---
Subjective Progress Note Date: 10/21/21 Resuming care of this patient on 10/21/2021. Tolerating clear liquid diet with no nausea, vomiting or diarrhea. Abdominal pain improved, complaining currently of bilateral lower abdominal pressure. Received Toradol yesterday for headache, with headache resolved. Clonidine discontinued, blood pressure stable.Currently denies chest pain, troponins 5.24, 5.51, 5.24, 5.36, 5.6; evaluated by cardiology and cleared for discharge. One of 2 blood cultures reporting Staphylococcus epidermidis, repeat preliminary blood cultures reporting no growth. Maintained on IV antibiotics of Unasyn as per ID. Objective - Vital Signs Vital signs: Vital Signs Temp 98.2 F 10/21/21 08:00 Pulse 70 10/21/21 08:00 Resp 17 10/21/21 08:00 BP 166/95 10/21/21 08:00 Pulse Ox 100 10/21/21 08:00 FiO2 Intake & Output 10/20/21 10/21/21 10/21/21 18:59 06:59 18:59 Intake Total 771.409 Output Total 200 900 Balance 571.409 -900 Intake: Intake, IV Titration 771.409 Amount Ampicillin-Sulbactam 3 gm 100 In Sodium Chloride 0.9% 100 ml @ 200 mls/hr IVPB Q6HR [facility] Rx#:[id number] Heparin Sod,Pork in 0.45% 121.409 NaCl 25,000 unit In 0.45 % NaCl 1 250ml.bag @ 10. 254 UNITS/KG/HR 10 mls/hr IV .Q24H [facility] Rx#: [id number] Sodium Chloride 0.9% 1, 300 000 ml @ 75 mls/hr IV . [id number] [facility] Rx#:[id number] Vancomycin 1,500 mg In 250 Sodium Chloride 0.9% 250 ml @ 125 mls/hr IVPB Q12HR [facility] Rx#:[id number] Output: Urine 200 900 Other: Voiding Method Urinal # Voids 2 1 - Exam GENERAL: This is a -66 year-old in no apparent distress at the time of examination. Pleasant and cooperative. Mild diaphoresis HEENT: Head is atraumatic, normocephalic. Pupils are equal, round, and reactive to light. Sclerae anicteric. Conjunctivae are clear. Mucus membranes of the mouth are moist. Neck is supple. RESPIRATORY: Clear to auscultation. No wheezing, No rales, or rhonchi. No use of accessory muscles. Minimal chest wall tenderness noted on palpation, none with deep breathing. CARDIOVASCULAR: Regular rate and rhythm. S1 and S2 noted. No systolic or diastolic murmur auscultated. No JVD noted. No S3 or S4 noted. GASTROINTESTINAL: Distended ,Abdomen soft and round, left upper and bilateral lower quadrant tenderness. Umbilical hernia. Normal active bowel sounds auscultated x 4 quadrants. INTEGUMENTARY: No cyanosis. No jaundice. No rashes noted. No cellulitis noted. EXTREMITIES: 2+ peripheral pulses. No evidence of peripheral edema. No calf tenderness noted. NEUROLOGIC: Cranial nerves II-XII intact. PSYCHIATRIC: Awake, alert, and oriented X 3. Appropriate affect. Intact judgement and insight. - Labs CBC & Chem 7: 10/20/21 08:06 10/21/21 08:04 Labs: Microbiology - Last 24 Hours (Table) 10/19/21 13:15 Blood Culture Gram Stain - Final Blood Blood Culture - Final Staphylococcus epidermidis 10/19/21 13:00 Blood Culture - Preliminary Blood No Growth after 24 hours 10/19/21 13:15 Blood Culture - Final Blood Assessment and Plan Assessment: Abdominal pain with diverticulitis reported per CT Bacteremia, gram-positive cocci, possible contamination, repeat blood cultures in progress Elevated troponin, related to recent STEMI with stenting as per cardiology Chest discomfort resolved Recent inferior STEMI on 10/15/2021 s/p balloon angioplasty mid RCA in-stent stenosis. S/p PCI proximal circumflex into mid circumflex Chronic renal failure stage IV Hypothyroidism CAD, history of [place] Recovering opioid dependency- no opioids Chronic back pain with spondylosis of lumbar region without myelopathy, recent bilateral radiofrequency thermal coagulation L2, L3 and L5 medial branch 06/27/[address] Barger. Hypertension Hyperlipidemia, intolerant of statins History of Coumadin toxicity, lower GI bleed, unable to tolerate aspirin, Couma din, Eliquis or Xarelto secondary to multiple symptoms including cramping, hematuria Former nicotine dependence [facility]ales medical marijuana Plan: Continue on current medication regime ,monitoring and symptomatic treatment. Maintain IV antibiotics as per infectious disease. Diet advancement to soft low fiber. Increase ambulation as tolerated. Cleared by cardiology for discharge. The impression and plan of care has been dictated as directed. : I performed a history and examination of this patient, discussed the same with the dictator. I agree with the dictator's note ,documented as a scribe. Any additional findings or plans will be noted.
[2021-10-22] MEDS: AMPICILLIN-SULBACTAM 3 GM in SODIUM CHLORIDE 0.9% 100 ML IVPB SCH (06:18)
[2021-10-22] MEDS: LEVOTHYROXINE 75 MCG TAB PO SCH (06:18)
[2021-10-22] MEDS: PANTOPRAZOLE 40 MG TABLET PO SCH (06:18)
[2021-10-22] MEDS: KETOROLAC 15 MG/ML 1 ML VIAL IVP SCH (06:21)
[2021-10-22] MEDS ORDERED: HYDROmorphone 1 MG/ML 1 ML SYRINGE IVP STA (08:17)
[2021-10-22] MEDS: ESCITALOPRAM 20 MG TAB PO SCH (08:53)
[2021-10-22] MEDS: EZETIMIBE 10 MG TAB PO SCH (08:53)
[2021-10-22] MEDS: THIAMINE 100 MG TAB PO SCH (08:54)
[2021-10-22] MEDS: TICAGRELOR 90 MG TAB PO SCH (08:54)
[2021-10-22] MEDS: METOPROLOL SUCCINATE (ER) 50 MG TAB.ER.24H PO SCH (08:54)
[2021-10-22] MEDS: ISOSORBIDE MONONITRATE ER 30 MG TAB.ER.24H PO SCH (08:54)
[2021-10-22] MEDS: ASPIRIN 81 MG PO SCH (08:54)
[2021-10-22] MEDS ORDERED: amLODIPine 5 MG TAB PO SCH (09:30)
[2021-10-22] MEDS ORDERED: cloNIDine HCL 0.1 MG TAB PO SCH (09:30)
[2021-10-22 09:42] LABS: African American GFR (CKD) >90 (>60 ml/min/1.73 sqM); Non-African American GFR(CKD) 85 (>60 ml/min/1.73 sqM)
[2021-10-22 11:55] VITALS: BP 110/70; PULSE 73; RESP 18; TEMP 97.6
--- NOTE | 2021-10-22 12:08 | P.PN ---
Subjective Progress Note Date: 10/21/21 Principal diagnosis: Diverticulitis, positive blood culture Patient is a 66-year-old male presenting to the hospital with left lower abdominal pain patient has been diagnosed with acute diverticulitis on the basis of CT also have a positive blood culture subsequently finalized with cally hand. On today's evaluation that is 10/21/2021, the patient denies having any fever or any chills, the patient left lower quadrant abdominal pain has decreased intensity patient denies having nausea vomiting and no diarrhea Objective - Vital Signs Vital signs: Vital Signs Temp 98.2 F 10/21/21 08:00 Pulse 70 10/21/21 08:00 Resp 17 10/21/21 08:00 BP 166/95 10/21/21 08:00 Pulse Ox 100 10/21/21 08:00 FiO2 Intake & Output 10/20/21 10/21/21 10/21/21 18:59 06:59 18:59 Intake Total 771.409 Output Total 200 900 Balance 571.409 -900 Intake: Intake, IV Titration 771.409 Amount Ampicillin-Sulbactam 3 gm 100 In Sodium Chloride 0.9% 100 ml @ 200 mls/hr IVPB Q6HR [facility] Rx#:[id number] Heparin Sod,Pork in 0.45% 121.409 NaCl 25,000 unit In 0.45 % NaCl 1 250ml.bag @ 10. 254 UNITS/KG/HR 10 mls/hr IV .Q24H [facility] Rx#: [id number] Sodium Chloride 0.9% 1, 300 000 ml @ 75 mls/hr IV . [id number] [facility] Rx#:[id number] Vancomycin 1,500 mg In 250 Sodium Chloride 0.9% 250 ml @ 125 mls/hr IVPB Q12HR [facility] Rx#:[id number] Output: Urine 200 900 Other: Voiding Method Urinal # Voids 2 1 - Exam GENERAL DESCRIPTION: Elderly male lying in bed, no distress. No tachypnea or accessory muscle of respiration use. LUNGS: Unlabored breathing. Clear to auscultation anteriorly. No wheeze or crackle. HEART: S1, S2, regular rate and rhythm. No loud murmur ABDOMEN: Soft, no tenderness , guarding or rigidity, no organomegaly EXTREMITIES: No edema of feet. - Labs CBC & Chem 7: 10/20/21 08:06 09/15/22 08:00 Labs: Microbiology - Last 24 Hours (Table) 10/20/21 09:40 Blood Culture - Preliminary Blood No Growth after 24 hours 10/19/21 13:15 Blood Culture Gram Stain - Final Blood Blood Culture - Final Staphylococcus epidermidis 10/19/21 13:00 Blood Culture - Preliminary Blood No Growth after 24 hours 10/19/21 13:15 Blood Culture - Final Blood Assessment and Plan (1) Diverticulitis Current Visit: Yes Status: Acute Code(s): K57.92 - DVTRCLI OF INTEST, PART UNSP, W/O PERF OR ABSCESS W/O BLEED SNOMED Code(s): 116811047 Plan: 1patient presented to hospital with left lower quadrant abdominal pain in this patient with evidence of uncomplicated diverticulitis on the CT will need to cover for the enteric gram-negative both aerobes and anaerobes. 2positive blood culture finalized as staph epi, Likely skin contamination dis continue vancomycin 3blood cultures repeat has been negative so far. 4Acute diverticulitis continue with Unasyn for the 24 hours before transitioning to oral Augmentin Time with Patient: Less than 30
--- NOTE | 2021-10-22 12:09 | P.PN ---
Subjective Progress Note Date: 10/22/21 Principal diagnosis: Diverticulitis, positive blood culture Patient is a 66-year-old male presenting to the hospital with left lower abdominal pain patient has been diagnosed with acute diverticulitis on the basis of CT also have a positive blood culture subsequently finalized with cally hand. On today's evaluation that is 10/22/2021, The patient remains to be afebrile, the patient denies having any chest pain shortness of breath or cough the patient left lower quadrant abdominal pain has resolved denies any nausea no vomiting and no diarrhea did have soft bowel movement Objective - Vital Signs Vital signs: Vital Signs Temp 97.6 F 10/22/21 11:54 Pulse 73 10/22/21 11:54 Resp 18 10/22/21 11:54 BP 110/70 10/22/21 11:54 Pulse Ox 97 10/22/21 11:54 FiO2 Intake & Output 10/21/21 10/22/21 10/22/21 18:59 06:59 18:59 Intake Total 480 480 Balance 480 480 Intake: Oral 480 480 Other: Voiding Method Urinal Toilet Toilet Urinal Urinal # Voids 2 1 - Exam GENERAL DESCRIPTION: Elderly male lying in bed, no distress. No tachypnea or accessory muscle of respiration use. LUNGS: Unlabored breathing. Clear to auscultation anteriorly. No wheeze or crackle. HEART: S1, S2, regular rate and rhythm. No loud murmur ABDOMEN: Soft, no tenderness , guarding or rigidity, no organomegaly EXTREMITIES: No edema of feet. - Labs CBC & Chem 7: 10/20/21 08:06 10/22/21 08:00 Labs: Microbiology - Last 24 Hours (Table) 10/20/21 09:40 Blood Culture - Preliminary Blood No Growth after 48 hours 10/19/21 13:00 Blood Culture - Preliminary Blood No Growth after 48 hours 10/19/21 13:15 Blood Culture Gram Stain - Final Blood Blood Culture - Final Staphylococcus epidermidis Assessment and Plan (1) Diverticulitis Current Visit: Yes Status: Acute Code(s): K57.92 - DVTRCLI OF INTEST, PART UNSP, W/O PERF OR ABSCESS W/O BLEED SNOMED Code(s): 700087138 Plan: 1patient presented to hospital with left lower quadrant abdominal pain in this patient with evidence of uncomplicated diverticulitis on the CT will need to cover for the enteric gram-negative both aerobes and anaerobes. 2positive blood culture finalized as staph epi, Likely skin contamination dis continue vancomycin 3blood cultures repeat has been negative 4Acute diverticulitis , Patient seem to have shown clinical improvement we will switch him over to oral Augmentin x10 days prescription was sent to the pharmacy Time with Patient: Less than 30
--- NOTE | 2021-10-22 14:29 | P.DS ---
Providers Date of admission: 10/19/21 13:38 Expected date of discharge: 10/22/21 Attending physician: Miki Nava Consults: 10/19/21 13:38 Consult Physician Urgent Consulting Provider: [facility] Consult Reason/Comments: Non-STEMI Do you want consulting provider notified?: Yes 10/20/21 09:33 Consult Physician Routine Consulting Provider: Shady Morel Consult Reason/Comments: positive blood cultures Do you want consulting provider notified?: Yes Primary care physician: Miki Nava Hospital Course: Final Diagnoses: Abdominal pain with diverticulitis reported per CT Bacteremia, gram-positive cocci, possible contamination, repeat final blood culture finalized with cally epi. Elevated troponin, related to recent STEMI with stenting as per cardiology Chest discomfort resolved Recent inferior STEMI on 10/15/2021 s/p balloon angioplasty mid RCA in-stent stenosis. 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 aBrger. Hypertension Hyperlipidemia, intolerant of statins History of Coumadin toxicity, lower GI bleed, unable to tolerate aspirin, Coumadin, Eliquis or Xarelto secondary to multiple symptoms including cramping, hematuria Former nicotine dependence [facility] medical marijuana Hospital course: This is 66-year-old gentleman admitted with bilateral lower quadrant abdominal pain greatest in the left, CT reported acute diverticulitis. (Resumed care of this patient on 10/21/2021.) Tolerating clear liquid diet with no nausea, vomiting or diarrhea. Abdominal pain improved, complaining currently of bilateral lower abdominal pressure. Received Toradol yesterday for headache, with headache resolved. Clonidine discontinued, blood pressure stable.Currently denies chest pain, troponins 5.24, 5.51, 5.24, 5.36, 5.6; evaluated by cardiology and cleared for discharge. One of 2 blood cultures reporting Staphylococcus epidermidis, repeat preliminary blood cultures reporting no growth. Maintained on IV antibiotics of Unasyn as per ID. Significant clinical improvement. Afebrile, denies chest pain, palpitations or shortness of breath. Complains of chronic back pain. Tolerated diet advancement with no nausea vomiting or diarrhea. Passing flatus. Positive soft bowel movement. Denies abdominal pain .Patient will be discharged home today in a stable condition with guarded prognosis pending final DC recommendations/antibiotics and clearance as per ID. The impression and plan of care has been dictated as directed. : I performed a history and examination of this patient, discussed the same with the dictator. I agree with the dictator's note ,documented as a scribe. Any additional findings or plans will be noted. Patient Condition at Discharge: Stable Plan - Discharge Summary New Discharge Prescriptions: New Pantoprazole [Protonix] 40 mg PO AC-BID #60 tab Metoprolol Succinate (ER) [Toprol XL] 50 mg PO DAILY #30 tab cloNIDine HCL [Catapres] 0.1 mg PO BID tab amLODIPine [Norvasc] 5 mg PO DAILY tab traMADol HCL 50 mg PO QID 3 Days #12 tab Amoxic-Pot Clav 875-125Mg [Augmentin 875-125] 1 tab PO Q12HR 10 Days #20 tab Discontinued cloNIDine HCL 0.1 mg PO BID Omeprazole 20 mg PO BID amLODIPine [Norvasc] 10 mg PO DAILY Metoprolol Succinate [Metoprolol Succinate ER] 25 mg PO DAILY No Action Levothyroxine Sodium [Synthroid] 75 mcg PO DAILY Escitalopram [Lexapro] 20 mg PO DAILY Baclofen 10 mg PO BID PRN PRN Reason: Muscle Spasm Ticagrelor [Brilinta] 90 mg PO BID #60 tab Folic Acid 1 mg PO DAILY #30 tab Isosorbide Mononitrate ER [Imdur] 30 mg PO DAILY #30 tab Thiamine [Vitamin B-1] 100 mg PO DAILY #30 tab Multivitamins, Thera [Multivitamin (formulary)] 1 tab PO DAILY Nitroglycerin Sl Tabs [Nitrostat] 0.4 mg SL Q5M PRN PRN Reason: Chest Pain Aspirin 81 mg PO DAILY #30 tab Ezetimibe [Zetia] 10 mg PO DAILY #30 tab Discharge Medication List Levothyroxine Sodium [Synthroid] 75 mcg PO DAILY 05/04/16 [History] Escitalopram [Lexapro] 20 mg PO DAILY 12/16/16 [History] Nitroglycerin Sl Tabs [Nitrostat] 0.4 mg SL Q5M PRN 07/23/21 [History] Baclofen 10 mg PO BID PRN 09/07/21 [History] Aspirin 81 mg PO DAILY #30 tab 10/17/21 [Rx] Ezetimibe [Zetia] 10 mg PO DAILY #30 tab 10/17/21 [Rx] Folic Acid 1 mg PO DAILY #30 tab 10/17/21 [Rx] Isosorbide Mononitrate ER [Imdur] 30 mg PO DAILY #30 tab 10/17/21 [Rx] Thiamine [Vitamin B-1] 100 mg PO DAILY #30 tab 10/17/21 [Rx] Ticagrelor [Brilinta] 90 mg PO BID #60 tab 10/17/21 [Rx] Multivitamins, Thera [Multivitamin (formulary)] 1 tab PO DAILY 10/19/21 [History] Amoxic-Pot Clav 875-125Mg [Augmentin 875-125] 1 tab PO Q12HR 10 Days #20 tab 10/22/21 [Rx] Metoprolol Succinate (ER) [Toprol XL] 50 mg PO DAILY #30 tab 10/22/21 [Rx] Pantoprazole [Protonix] 40 mg PO AC-BID #60 tab 10/22/21 [Rx] amLODIPine [Norvasc] 5 mg PO DAILY tab 10/22/21 [Rx] cloNIDine HCL [Catapres] 0.1 mg PO BID tab 10/22/21 [Rx] traMADol HCL 50 mg PO QID 3 Days #12 tab 10/22/21 [Rx] Follow up Appointment(s)/Referral(s): Miki Nava DO [Primary Care Provider] - 10/29/21 1:20 pm Kashmir Patrick MD [STAFF PHYSICIAN] - 10/28/21 Patient Instructions/Handouts: Diverticulitis (DC) Activity/Diet/Wound Care/Special Instructions: Repeat blood pressure pending Discharge Disposition: HOME SELF-CARE
== END 2021-10-22 13:03 | disposition home or self-care (01) | DRG 391 ==
LOC: EC 10:43 → 3SCARD 13:38
PROVIDERS: ADMIT Family Medicine; ATTEND Family Medicine
DX: K57.32 Diverticulitis of large intestine without perforation or abscess without bleeding (principal); I21.19 ST elevation (STEMI) myocardial infarction involving other coronary artery of inferior wall; N18.4 Chronic kidney disease, stage 4 (severe); E78.5 Hyperlipidemia, unspecified; G89.29 Other chronic pain; M47.816 Spondylosis without myelopathy or radiculopathy, lumbar region; E03.9 Hypothyroidism, unspecified; F10.10 Alcohol abuse, uncomplicated; I48.0 Paroxysmal atrial fibrillation; I12.9 Hypertensive chronic kidney disease with stage 1 through stage 4 chronic kidney disease, or unspecified chronic kidney disease; F12.10 Cannabis abuse, uncomplicated; F32.A Depression, unspecified; F41.9 Anxiety disorder, unspecified; I25.10 Atherosclerotic heart disease of native coronary artery without angina pectoris; I44.0 Atrioventricular block, first degree; K44.9 Diaphragmatic hernia without obstruction or gangrene; Z95.5 Presence of coronary angioplasty implant and graft; Z79.02 Long term (current) use of antithrombotics/antiplatelets; Z79.82 Long term (current) use of aspirin; Z79.890 Hormone replacement therapy; Z79.899 Other long term (current) drug therapy; Z86.718 Personal history of other venous thrombosis and embolism
CPT/HCPCS: 36415; 71275; 74174; 80048; 80053; 80061; 82565; 83605; 83735; 84484; 85025; 85610; 85730; 87040; 93005; 96365; 96366; 96367; 96375; 96376; 99291

== ENCOUNTER → 2021-12-22 | Outpatient (CLI) | payer MEDICARE ==
--- NOTE | 2021-12-22 11:22 | XR ---
EXAMINATION TYPE: XR chest 2V DATE OF EXAM: 12/22/2021 COMPARISON: 10/15/2021 TECHNIQUE: PA and lateral views submitted. HISTORY: Cough FINDINGS: The lungs are clear and there is no pneumothorax, pleural effusion, or focal pneumonia. Hyperinflat ion. Heart size normal. Biapical pleural thickening. Hypertrophic and degenerative changes of the spi ne. IMPRESSION: 1. No acute process. Correlate for COPD.
== END | disposition home or self-care (01) ==
LOC: RADXRMAIN 10:53
PROVIDERS: ATTEND Internal Medicine
DX: J20.9 Acute bronchitis, unspecified (principal)
CPT/HCPCS: 71046

== ENCOUNTER 2022-04-20 16:23 | Inpatient (IN) | payer MEDICARE ==
--- NOTE | 2022-04-20 17:25 | ED ---
GI Bleed HPI - General Chief complaint: GI Bleed Stated complaint: vomiting Time Seen by Provider: 04/20/22 17:26 Source: patient, RN notes reviewed Mode of arrival: wheelchair Limitations: no limitations - History of Present Illness Initial comments: Patient is a 67-year-old male who presents to the emergency department with a chief complaint of vomiting. Patient reports vomiting for the past 2 days, and ability to tolerate oral intake. He reports lower abdominal pain and diarrhea with black stools. He denies history of GI bleed. No recent pepto bismol or iron use. Take baby aspirin otherwise no blood in the use. Patient currently feels SOB. He reports cramping all over his body including his chest. He reports drinking a few beers every couple days. Denies drug use. - Related Data Home Medications Medication Instructions Recorded Confirmed Levothyroxine Sodium [Synthroid] 75 mcg PO DAILY 05/04/16 04/20/22 Escitalopram [Lexapro] 20 mg PO DAILY 12/16/16 04/20/22 Nitroglycerin Sl Tabs [Nitrostat] 0.4 mg SL Q5M PRN 07/23/21 04/20/22 amLODIPine [Norvasc] 5 mg PO DAILY 03/12/22 04/20/22 Evolocumab [Repatha Sureclick] 140 mg SQ Q14D 04/20/22 04/20/22 HYDROcodone/APAP 7.5-325MG [[place] 1 tab PO Q4HR PRN 04/20/22 04/20/22 7.5] Isosorbide Mononitrate ER [Imdur] 30 mg PO DAILY 04/20/22 04/20/22 Ondansetron [Zofran] 4 mg PO Q12HR PRN 04/20/22 04/20/22 Previous Rx's Medication Instructions Recorded Aspirin 81 mg PO DAILY #30 tab 10/17/21 Ticagrelor [Brilinta] 90 mg PO BID #60 tab 10/17/21 Pantoprazole [Protonix] 40 mg PO AC-BID #60 tab 10/22/21 cloNIDine HCL [Catapres] 0.1 mg PO BID tab 10/22/21 Allergies Allergy/AdvReac Type Severity Reaction Status Date / Time rivaroxaban [From Xarelto] AdvReac Severe Nausea & Verified 04/20/22 19:51 Vomiting & Diarrhea paroxetine HCl [From Paxil] AdvReac Unknown Nausea & Verified 04/20/22 19:51 Vomiting & Diarrhea apixaban [From Eliquis] AdvReac Nausea & Verified 04/20/22 19:51 Vomiting & Diarrhea atorvastatin [From Lipitor] AdvReac Nausea & Verified 04/20/22 19:51 Vomiting & Diarrhea Beta-Blockers AdvReac Nausea & Verified 04/20/22 19:51 (Beta-Adrenergic Bloc Vomiting & Diarrhea gabapentin AdvReac Nausea & Verified 04/20/22 19:51 Vomiting & Diarrhea Epmprdo-ZPQ-IuM Reductase AdvReac Nausea & Verified 04/20/22 19:51 Inhibitor Vomiting & Diarrhea warfarin AdvReac Nausea & Verified 04/20/22 19:51 Vomiting & Diarrhea Review of Systems ROS Statement: Those systems with pertinent positive or pertinent negative responses have been documented in the HPI. ROS Other: All systems not noted in ROS Statement are negative. Past Medical History Past Medical History: Atrial Fibrillation, Coronary Artery Disease (CAD), Chest Pain / Angina, Deep Vein Thrombosis (DVT), GERD/Reflux, GI Bleed, Hyperlipidemia, Hypertension, Myocardial Infarction ([place]), Musculoskeletal Disorder, Osteoarthritis (OA), Pneumonia, Renal Disease, Syncope, Thyroid Disorder Additional Past Medical History / Comment(s): Paroxysmal afib, fell 12 weeks ago and fractured stenum/ribs, episodes of acute renal failure associated with dehydration, ckd stage IV, past melana stools, diverticulitis, IBS, return of hiatal hernia, bronchitis, hypothyroid, chronic low back pain with bilateral sciatica, lumbar DDD, past migraines, DJD, numbness/tingling bilateral legs/feet, 4 DVTs L leg surgically removed. covid + July 2021 Last Myocardial Infarction Date:: 10/15/21 History of Any Multi-Drug Resistant Organisms: None Reported Past Surgical History: Back Surgery, Cholecystectomy, Heart Catheterization, Heart Catheterization With Stent, Hernia Repair, Orthopedic Surgery Additional Past Surgical History / Comment(s): Back fusions L3-L5, ORIF L ankle, L hand fracture with surgery, R knee arthroscopy x2, R elbow tendon release, R shoulder arthroscopy, lumbar spine cyst removed, pain clinic procedures, taylor fundoplication, EGD, colonoscopy, 2019 arteriogram/thrombus extraction at [facility]. PTCA w/ 3 stents now Past Anesthesia/Blood Transfusion Reactions: No Reported Reaction Date of Last Stent Placement:: 10/15/21 Past Psychological History: No Psychological Hx Reported, Depression Smoking Status: Former smoker Past Alcohol Use History: Occasional Past Drug Use History: Marijuana - Past Family History Mother Family Medical History: Thyroid Disorder Additional Family Medical History / Comment(s): Mother is living. Father Family Medical History: Coronary Artery Disease (CAD), Diabetes Mellitus Additional Family Medical History / Comment(s): Father had CABG. He at the age of 84 yrs in a MVA. Sister(s) Family Medical History: Cancer Additional Family Medical History / Comment(s): Sister #1 skin cancer, sister #2 thyroid cancer. General Exam Limitations: no limitations General appearance: alert, in distress (pain, mild SOB), other Respiratory exam: Present: normal lung sounds bilaterally. Absent: respiratory distress, wheezes, rales, rhonchi, stridor Cardiovascular Exam: Present: normal rhythm, tachycardia, normal heart sounds. Absent: regular rate, systolic murmur, diastolic murmur, rubs, gallop, clicks GI/Abdominal exam: Present: soft, normal bowel sounds. Absent: distended, tenderness, guarding, rebound, rigid Neurological exam: Present: alert, oriented X3, CN II-XII intact Psychiatric exam: Present: normal affect, normal mood Skin exam: Present: warm, dry, intact, normal color. Absent: rash Course Vital Signs 04/20/22 04/20/22 04/20/22 16:28 19:03 19:05 Temperature 98.1 F Pulse Rate 110 H 98 95 Respiratory 18 18 Rate Blood Pressure 152/99 180/130 170/104 O2 Sat by Pulse 98 98 Oximetry 04/20/22 04/20/22 04/20/22 19:10 19:20 19:30 Temperature Pulse Rate 87 85 81 Respiratory 16 14 Rate Blood Pressure 170/104 170/104 137/80 O2 Sat by Pulse Oximetry 04/20/22 04/20/22 04/20/22 19:40 19:50 20:00 Temperature Pulse Rate 85 96 Respiratory 18 Rate Blood Pressure 139/81 139/81 O2 Sat by Pulse 97 Oximetry 04/20/22 04/20/22 20:10 20:20 Temperature Pulse Rate 89 94 Respiratory Rate Blood Pressure 152/105 152/105 O2 Sat by Pulse 98 Oximetry Medical Decision Making - Medical Decision Making KG taken at 18:56, interpreted by me Sinus rhythm with first-degree AV block, no new ST segment or T-wave abnormalities. Ventricular rate 93, TX interval 217, QRS duration 117, QTC 411 Was pt. sent in by a medical professional or institution ([facility]IX[facility] Mathur, GAS PRODUCER, urgent care, hospital, or long term...) When possible be specific @ -[No] Did you speak to anyone other than the patient for history (EMS, parent, family, police, friend...)? What history was obtained from this source @ -[No] Did you review nursing and triage notes (agree or disagree)? Why? @ -[I reviewed and agree with nursing and triage notes] Were old charts reviewed (outside hosp., previous admission, EMS record, old EKG, old radiological studies, urgent care reports/EKG's, long term records)? Report findings @ -[No old charts were reviewed] Differential Diagnosis (chest pain, altered mental status, abdominal pain women, abdominal pain men, vaginal bleeding, weakness, fever, dyspnea, syncope, headache, dizziness, GI bleed, back pain, seizure, CVA, palpatations, mental health)? @ -STEMI, NSTEMI, PE, Esophageal varices, aortoenteric fistula, Brenda-Dale, gastritis, peptic ulcer disease, diverticulosis, inflammatory bowel disease, hemorrhoids, fissure, colitis, malignancy, Meckels diverticulum, this is not meant to be an all-inclusive list. EKG interpreted by me (3pts min.). @ -[As above] X-rays interpreted by me (1pt min.). @ -[None done] CT interpreted by me (1pt min.). @ -CT abdomen and pelvis without contrast negative for acute process. U/S interpreted by me (1pt. min.). @ -[None done] What testing was considered but not performed or refused? (CT, X-rays, U/S, labs)? Why? @ -[None] What meds were considered but not given or refused? Why? @ -[None] Did you discuss the management of the patient with other professionals (professionals i.e. [facility]IX[facility] Mathur, GAS PRODUCER, lab, RT, psych nurse, social media manager, job putter up and ticket preparer, teacher, payroll officer, piano case and bench assembler)? Give summary @ -[No] Was smoking cessation discussed for >3mins.? @ -[No] Was critical care preformed (if so, how long)? @ -[No] Were there social determinants of health that impacted care today? How? (Homelessness, low income, unemployed, alcoholism, drug addiction, transportation, low edu. Level, literacy, decrease access to med. care, fci, rehab)? @ -[No] Was there de-escalation of care discussed even if they declined (Discuss DNR or withdrawal of care, Hospice)? DNR status @ -[No] What co-morbidities impacted this encounter? (DM, HTN, Smoking, COPD, CAD, Cancer, CVA, ARF, Chemo, Hep., AIDS, mental health diagnosis, sleep apnea, morbid obesity)? @ -[None] Was patient admitted / discharged? Hospital course, mention meds given and route, prescriptions, significant lab abnormalities, going to OR and other pertinent info. @ -Patient presented with multiple complaints. Patient appears to be in pain states his body is cramping all over. No evidence respiratory distress. He is tachycardic at 110 no hypoxia. EKG shows no evidence of acute ischemia. Troponin within normal limits. D-dimer elevated at 3.08. There is mild leukocytosis at 15.1. There is hyperkalemia at 5.4 with slight hemolysis. Patient is in acute renal failure, creatinine at 4.73, BUN at 32. His baseline creatinine over the past few months has been around 1. GFR is significantly decreased at 12. There is anion gap metabolic acidosis, carbon dioxide at 18, anion gap at 24. Occult blood is negative. Patient given large fluid bolus with resolution of tachycardia. Pain improved after Dilaudid. Patient resting comfortably. He did not have any episodes of vomiting while in the emergency department. Patient will be admitted for acute renal failure. Ultrasound of the kidneys is ordered as well as VQ scan. Case discussed with Dr. Mercedes who accepts admission. Nephrology on consult. Patient admitted in stable condition. Undiagnosed new problem with uncertain prognosis? @ -[No] Drug Therapy requiring intensive monitoring for toxicity (Heparin, Nitro, Insulin, Cardizem)? @ -[No] Were any procedures done? @ -[No] Diagnosis/symptom? @ -Acute renal failure Acute, or Chronic, or Acute on Chronic? @ -Acute Uncomplicated (without systemic symptoms) or Complicated (systemic symptoms)? @ -Uncomplicated Side effects of treatment? @ -[No] Exacerbation, Progression, or Severe Exacerbation? @ -[No] Poses a threat to life or bodily function? How? (Chest pain, [place], AK, pneumonia, PE, COPD, DKA, ARF, appy, cholecystitis, CVA, Diverticulitis, Homicidal, Suicidal, threat to staff... and all critical care pts) @ -[No] Dr. Rich is my attending. - Lab Data Result diagrams: 04/20/22 17:16 04/20/22 17:16 Lab Results 04/20/22 04/20/22 04/20/22 Range/Units 17:16 17:16 17:16 WBC 15.1 H (3.8-10.6) k/uL RBC 5.73 (4.30-5.90) m/uL Hgb 16.7 (13.0-17.5) gm/dL Hct 48.9 (39.0-53.0) % MCV 85.4 (80.0-100.0) fL MCH 29.2 (25.0-35.0) pg MCHC 34.2 (31.0-37.0) g/dL RDW 14.2 (11.5-15.5) % Plt Count 343 (150-450) k/uL MPV 8.7 Neutrophils % 82 % Lymphocytes % 11 % Monocytes % 6 % Eosinophils % 0 % Basophils % 0 % Neutrophils # 12.4 H (1.3-7.7) k/uL Lymphocytes # 1.7 (1.0-4.8) k/uL Monocytes # 0.8 (0-1.0) k/uL Eosinophils # 0.0 (0-0.7) k/uL Basophils # 0.1 (0-0.2) k/uL PT 10.4 (9.0-12.0) sec INR 1.0 (<1.2) APTT 23.0 (22.0-30.0) sec D-Dimer 3.08 H (<0.60) mg/L FEU Sodium 137 (137-145) mmol/L Potassium 5.4 H (3.5-5.1) mmol/L Chloride 95 L (98-107) mmol/L Carbon Dioxide 18 L (22-30) mmol/L Anion Gap 24 mmol/L BUN 32 H (9-20) mg/dL Creatinine 4.73 H (0.66-1.25) mg/dL Est GFR (CKD-EPI)AfAm 14 (>60 ml/min/1.73 sqM) Est GFR (CKD-EPI)NonAf 12 (>60 ml/min/1.73 sqM) Glucose 137 H (74-99) mg/dL Calcium 11.3 H (8.4-10.2) mg/dL Magnesium 2.3 (1.6-2.3) mg/dL Total Bilirubin 1.1 (0.2-1.3) mg/dL AST 38 (17-59) U/L ALT 33 (4-49) U/L Alkaline Phosphatase 172 H (38-126) U/L Troponin I (0.000-0.034) ng/mL Total Protein 10.1 H (6.3-8.2) g/dL Albumin 5.8 H (3.5-5.0) g/dL Stool Occult Blood (Negative) Blood Type Blood Type Recheck Bld Type Recheck Status Antibody Screen Spec Expiration Date 04/20/22 04/20/22 04/20/22 Range/Units 17:16 20:04 20:04 WBC (3.8-10.6) k/uL RBC (4.30-5.90) m/uL Hgb (13.0-17.5) gm/dL Hct (39.0-53.0) % MCV (80.0-100.0) fL MCH (25.0-35.0) pg MCHC (31.0-37.0) g/dL RDW (11.5-15.5) % Plt Count (150-450) k/uL MPV Neutrophils % % Lymphocytes % % Monocytes % % Eosinophils % % Basophils % % Neutrophils # (1.3-7.7) k/uL Lymphocytes # (1.0-4.8) k/uL Monocytes # (0-1.0) k/uL Eosinophils # (0-0.7) k/uL Basophils # (0-0.2) k/uL PT (9.0-12.0) sec INR (<1.2) APTT (22.0-30.0) sec D-Dimer (<0.60) mg/L FEU Sodium (137-145) mmol/L Potassium (3.5-5.1) mmol/L Chloride (98-107) mmol/L Carbon Dioxide (22-30) mmol/L Anion Gap mmol/L BUN (9-20) mg/dL Creatinine (0.66-1.25) mg/dL Est GFR (CKD-EPI)AfAm (>60 ml/min/1.73 sqM) Est GFR (CKD-EPI)NonAf (>60 ml/min/1.73 sqM) Glucose (74-99) mg/dL Calcium (8.4-10.2) mg/dL Magnesium (1.6-2.3) mg/dL Total Bilirubin (0.2-1.3) mg/dL AST (17-59) U/L ALT (4-49) U/L Alkaline Phosphatase (38-126) U/L Troponin I <0.012 (0.000-0.034) ng/mL Total Protein (6.3-8.2) g/dL Albumin (3.5-5.0) g/dL Stool Occult Blood Negative (Negative) Blood Type B Negative Blood Type Recheck B Neg Bld Type Recheck Status No Antibody Screen NEGATIVE Spec Expiration Date 04/23/20222303 Disposition Clinical Impression: Acute renal failure, Muscle cramping, Shortness of breath Disposition: ADMITTED IP TO THIS [facility] Condition: Stable
[2022-04-20] MEDS ORDERED: SODIUM CHLORIDE 0.9% 1,000 ML IV STA ×2 (18:35→20:14)
[2022-04-20] MEDS ORDERED: ONDANSETRON 4 MG/2 ML VIAL IVP STA (18:37)
[2022-04-20] MEDS ORDERED: PANTOPRAZOLE 40 MG/10 ML VIAL IVP STA (18:37)
[2022-04-20] MEDS ORDERED: HYDROmorphone 0.5 MG/0.5 ML SYRINGE IVP STA ×2 (18:39→20:04)
[2022-04-20] MEDS ORDERED: ASPIRIN 325 MG TAB PO STA (18:41)
[2022-04-20 19:10] LABS: Albumin 5.8 g/dL (3.5-5.0); Calcium 11.3 mg/dL (8.4-10.2); Magnesium 2.3 mg/dL (1.6-2.3); Total Bilirubin 1.1 mg/dL (0.2-1.3); Total Protein 10.1 g/dL (6.3-8.2)
[2022-04-20 19:11] LABS: Prothrombin Time 10.4 sec (9.0-12.0)
[2022-04-20 19:14] LABS: Potassium 5.4 mmol/L (3.5-5.1)
[2022-04-20 19:20] LABS: Basophils # (A) 0.1 k/uL (0-0.2); Basophils % (A) 0 %; Eosinophils % (A) 0 %; HCT 48.9 % (39.0-53.0); HGB 16.7 gm/dL (13.0-17.5); Lymphocytes # (A) 1.7 k/uL (1.0-4.8); Lymphocytes % (A) 11 %; MCH 29.2 pg (25.0-35.0); MCHC 34.2 g/dL (31.0-37.0); MCV 85.4 fL (80.0-100.0); Mean Platelet Volume 8.7; Monocytes # (A) 0.8 k/uL (0-1.0); Monocytes % (A) 6 %; Neutrophils # (A) 12.4 k/uL (1.3-7.7); Neutrophils % (A) 82 %; Platelet Count 343 k/uL (150-450); RBC 5.73 m/uL (4.30-5.90); RDW 14.2 % (11.5-15.5); WBC 15.1 k/uL (3.8-10.6)
--- NOTE | 2022-04-20 20:15 | CT ---
EXAMINATION TYPE: CT abdomen pelvis wo con DATE OF EXAM: 04/20/2022 COMPARISON: 11/30/2019 HISTORY: Weakness, lethargic, black stool, vomiting, dehydration. CT DLP: 887.9 mGycm Automated exposure control for dose reduction was used. Images obtained from the diaphragm to the floor the pelvis with no contrast. The lung bases are clear of infiltrate. No pleural effusion. Heart size is normal. No pericardial eff usion. There is coronary artery calcification. Liver and spleen are intact. There are clips from chol ecystectomy. There is 3 cm cyst in the anterior right lobe of the liver. There is no pancreatic mass. The bile ducts are not dilated. The stomach is intact. There is small hiatal hernia. There is no adrenal mass. Kidneys show normal size and contour. No hydronephrosis. Ureters are not di lated. No retroperitoneal adenopathy. There is no mesenteric edema. No ascites or free air. No sign of a bowel obstruction. There are sigmo id diverticula. No diverticulitis. Sacroiliac joints are intact. The bony pelvis is intact. The hip joints are intact. The lumbar verteb ra show normal alignment. There is posterior fusion surgery from L3 to L5. Abdominal aorta is atherom atous. IMPRESSION: No acute abnormality of the abdomen and pelvis. No adverse change compared to old exam.
[2022-04-20] MEDS ORDERED: NALOXONE 0.4 MG/ML 1 ML VIAL IV PRN (21:30)
[2022-04-20] MEDS: HYDROmorphone 0.5 MG/0.5 ML SYRINGE IVP PRN (23:05)
--- NOTE | 2022-04-20 23:19 | NM ---
EXAMINATION TYPE: NM pul vent and perfuse DATE OF EXAM: 04/20/2022 COMPARISON: NONE HISTORY: TECHNIQUE: Utilizing inhalation of 69.8 mCi Tc 99m DTPA aerosol and intravenous injection of 4.92 mC i of Tc 99m MAA, ventilation and perfusion images are acquired post injection in multiple projections . FINDINGS: There is uniform perfusion of both lungs. No evidence of any segmental or subsegmental defect. I have no recent chest x-ray exams to compare. IMPRESSION: Normal perfusion lung scan. There is very low probability of pulmonary embolism.
--- NOTE | 2022-04-21 00:01 | US ---
EXAMINATION TYPE: US kidneys/renal and bladder DATE OF EXAM: 04/20/2022 COMPARISON: CT: Today CLINICAL HISTORY: JOSIE. JOSIE EXAM MEASUREMENTS: Right Kidney: 13.0 x 4.9 x 5.9 cm Left Kidney: 12.4 x 5.4 x 5.7 cm Right Kidney: No hydronephrosis or masses seen Left Kidney: No hydronephrosis or masses seen Bladder: wnl Bilateral Jets seen: Yes IMPRESSION: There are bilateral ureteral jets. No evidence of renal mass or obstruction. No hydronephrosis.
[2022-04-21] MEDS: HYDROmorphone 0.5 MG/0.5 ML SYRINGE IVP PRN ×4 (01:52→11:28)
[2022-04-21 10:12] LABS: Calcium 9.4 mg/dL (8.4-10.2); Potassium 4.1 mmol/L (3.5-5.1)
[2022-04-21] MEDS ORDERED: amLODIPine 5 MG TAB PO SCH (10:15)
--- NOTE | 2022-04-21 10:48 | P.NPCON ---
History of Present Illness - Reason for Consult acute renal failure - History of Present Illness Patient is a 67-year-old male with history of hypertension and hypothyroidism and previous episodes of acute kidney injury mostly prerenal associated with prior episodes of nausea vomiting and diarrhea. Patient was admitted to the hospital with complaints of vomiting and diarrhea for about 2 days. He was not able to eat or drink much. No complaints of fever chills chest pain or shortness of breath. No history of NSAIDs. Serum creatinine was 4.7 on admission with previous creatinine 120.9 mg on 03/08/2022. Patient is maintained on IV fluids and serum creatinine is down to 3. Patient has been voiding Ultrasound shows no evidence of hydronephrosis. No history of hypotension, in fact blood pressure has been high Review of Systems As per HPI Past Medical History Past Medical History: Atrial Fibrillation, Coronary Artery Disease (CAD), Chest Pain / Angina, Deep Vein Thrombosis (DVT), GERD/Reflux, GI Bleed, Hyperlipidemia, Hypertension, Myocardial Infarction ([place]), Musculoskeletal Disorder, Osteoarthritis (OA), Pneumonia, Renal Disease, Syncope, Thyroid Disorder Additional Past Medical History / Comment(s): Paroxysmal afib, fell 12 weeks ago and fractured stenum/ribs, episodes of acute renal failure associated with dehydration, ckd stage IV, past melana stools, diverticulitis, IBS, return of hiatal hernia, bronchitis, hypothyroid, chronic low back pain with bilateral sciatica, lumbar DDD, past migraines, DJD, numbness/tingling bilateral legs/feet, 4 DVTs L leg surgically removed. covid + July 2021 Last Myocardial Infarction Date:: 10/15/21 History of Any Multi-Drug Resistant Organisms: None Reported Past Surgical History: Back Surgery, Cholecystectomy, Heart Catheterization, Heart Catheterization With Stent, Hernia Repair, Orthopedic Surgery Additional Past Surgical History / Comment(s): Back fusions L3-L5, ORIF L ankle, L hand fracture with surgery, R knee arthroscopy x2, R elbow tendon release, R shoulder arthroscopy, L shoulder arthroscopy, lumbar spine cyst removed, pain clinic procedures, taylor fundoplication, EGD, colonoscopy, 2019 arteriogram/thrombus extraction at [facility]. PTCA w/ 3 stents now. rt knee replacemnt Past Anesthesia/Blood Transfusion Reactions: No Reported Reaction Date of Last Stent Placement:: 10/15/21 Past Psychological History: No Psychological Hx Reported, Depression Additional Psychological History / Comment(s): Pt resides with his spouse. HE is independent. Smoking Status: Former smoker Past Alcohol Use History: Occasional Additional Past Alcohol Use History / Comment(s): Smoked from 1971 to 1983 SMOKED 1PPD. Pt states he drinks less than 14 drinks per week Past Drug Use History: Marijuana Additional Drug Use History / Comment(s): MEDICAL marijuana - daily. - Past Family History Mother Family Medical History: Thyroid Disorder Additional Family Medical History / Comment(s): Mother is living. Father Family Medical History: Coronary Artery Disease (CAD), Diabetes Mellitus Additional Family Medical History / Comment(s): Father had CABG. He at the age of 84 yrs in a MVA. Sister(s) Family Medical History: Cancer Additional Family Medical History / Comment(s): Sister #1 skin cancer, sister #2 thyroid cancer. Medications and Allergies Home Medications Medication Instructions Recorded Confirmed Type Levothyroxine Sodium [Synthroid] 75 mcg PO DAILY 05/04/16 04/20/22 History Escitalopram [Lexapro] 20 mg PO DAILY 12/16/16 04/20/22 History Nitroglycerin Sl Tabs [Nitrostat] 0.4 mg SL Q5M PRN 07/23/21 04/20/22 History Aspirin 81 mg PO DAILY #30 tab 10/17/21 04/20/22 Rx Ticagrelor [Brilinta] 90 mg PO BID #60 tab 10/17/21 04/20/22 Rx Pantoprazole [Protonix] 40 mg PO AC-BID #60 tab 10/22/21 04/20/22 Rx cloNIDine HCL [Catapres] 0.1 mg PO BID tab 10/22/21 04/20/22 Rx amLODIPine [Norvasc] 5 mg PO DAILY 03/12/22 04/20/22 History Evolocumab [Repatha Sureclick] 140 mg SQ Q14D 04/20/22 04/20/22 History HYDROcodone/APAP 7.5-325MG [[place] 1 tab PO Q4HR PRN 04/20/22 04/20/22 History 7.5] Isosorbide Mononitrate ER [Imdur] 30 mg PO DAILY 04/20/22 04/20/22 History Ondansetron [Zofran] 4 mg PO Q12HR PRN 04/20/22 04/20/22 History Allergies Allergy/AdvReac Type Severity Reaction Status Date / Time rivaroxaban [From Xarelto] AdvReac Severe Nausea & Verified 04/20/22 19:51 Vomiting & Diarrhea paroxetine HCl [From Paxil] AdvReac Unknown Nausea & Verified 04/20/22 19:51 Vomiting & Diarrhea apixaban [From Eliquis] AdvReac Nausea & Verified 04/20/22 19:51 Vomiting & Diarrhea atorvastatin [From Lipitor] AdvReac Nausea & Verified 04/20/22 19:51 Vomiting & Diarrhea Beta-Blockers AdvReac Nausea & Verified 04/20/22 19:51 (Beta-Adrenergic Bloc Vomiting & Diarrhea gabapentin AdvReac Nausea & Verified 04/20/22 19:51 Vomiting & Diarrhea [id number] Reductase AdvReac Nausea & Verified 04/20/22 19:51 Inhibitor Vomiting & Diarrhea warfarin AdvReac Nausea & Verified 04/20/22 19:51 Vomiting & Diarrhea Physical Exam Vitals: Vital Signs Temp Pulse Pulse Resp BP BP Pulse Ox 04/21/22 08:00 98.1 F 78 18 188/78 100 04/21/22 04:00 77 19 156/73 95 04/20/22 23:40 92 18 172/93 97 04/20/22 23:19 83 18 129/72 96 04/20/22 22:49 89 18 156/89 96 04/20/22 20:20 94 152/105 98 04/20/22 20:10 89 152/105 04/20/22 20:00 96 139/81 97 04/20/22 19:50 139/81 04/20/22 19:40 85 18 04/20/22 19:30 81 14 137/80 04/20/22 19:20 85 170/104 04/20/22 19:10 87 16 170/104 04/20/22 19:05 95 18 170/104 98 04/20/22 19:03 98 180/130 04/20/22 16:28 98.1 F 110 H 18 152/99 98 Intake and Output 04/20/22 04/21/22 04/21/22 22:59 06:59 14:59 Intake Total 118 Output Total 250 Balance -250 118 Intake: Oral 118 Output: Urine 250 Other: Voiding Method Toilet Urinal Weight 102.058 kg 102.058 kg Patient is awake, comfortable, no acute distress Examination of the heart S1 and S2 Examination of the lungs bilateral breath sounds are heard Abdomen is soft nontender Examination of the lower extremity shows no evidence of edema 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 Acute kidney injury, nonoliguric, ATN associated with volume depletion, currently improving check UA. Ultrasound shows no evidence of hydronephrosis 2. Mild hyperkalemia associated with acute kidney injury currently improved 3. Metabolic acidosis associated with acute kidney injury 4. Nausea vomiting diarrhea currently improved 5. Previous episodes of severe acute kidney injury, mostly prerenal and completely resolved. Serum creatinine 0.9-1 mg/dL as of 03/08/2022 6. Hypertension, uncontrolled, increase Norvasc to 10 mg daily Plan: Continue with IV fluids Switch to IV bicarb Increase Norvasc Repeat labs in a.m. Check urine analysis Avoid nephrotoxic agents next Thank you for the consultation. We will continue to follow the patient with you during his hospitalization
[2022-04-21] MEDS ORDERED: NON FORMULARY DRUG (Evolocumab [Repatha Sureclick] 140 MG/ML Each) SQ SCH (11:00)
[2022-04-21] MEDS: ESCITALOPRAM 20 MG TAB PO SCH (11:28)
[2022-04-21] MEDS: cloNIDine HCL 0.1 MG TAB PO SCH ×2 (11:28→20:35)
[2022-04-21] MEDS: LEVOTHYROXINE 75 MCG TAB PO SCH (11:28)
[2022-04-21] MEDS: ISOSORBIDE MONONITRATE ER 30 MG TAB.ER.24H PO SCH (11:28)
[2022-04-21] MEDS: ASPIRIN 81 MG PO SCH (11:28)
[2022-04-21] MEDS: DEXTROSE 5% IN WATER 1,000 ML with SODIUM BICARB (1 MEQ/ML) 100 ML IV SCH (14:36)
[2022-04-21] MEDS: HYDROmorphone 1 MG/ML 1 ML SYRINGE IVP PRN ×3 (14:36→21:39)
[2022-04-21 15:43] LABS: Appearance,Urine Clear (Clear); Bilirubin,Urine Negative (Negative); Blood,Urine Negative (Negative); Color,Urine Yellow; Glucose,Urine (UA) Negative (Negative); Ketones,Urine Negative (Negative); Leukocyte Esterase,Urine Negative (Negative); Nitrite,Urine Negative (Negative); PH, Urine 5.5 (5.0-8.0); Protein,Urine Trace (Negative); Specific Gravity,Urine 1.023 (1.001-1.035); Urobilinogen,Urine <2.0 mg/dL (<2.0)
[2022-04-21] MEDS: amLODIPine 5 MG TAB PO SCH (20:35)
[2022-04-21] MEDS: TICAGRELOR 90 MG TAB PO SCH (20:35)
[2022-04-21] MEDS: ALBUTEROL NEBULIZED 2.5 MG/3 ML INHALATION PRN (21:58)
[2022-04-22] MEDS: HYDROmorphone 1 MG/ML 1 ML SYRINGE IVP PRN ×5 (01:45→18:08)
[2022-04-22] MEDS: DEXTROSE 5% IN WATER 1,000 ML with SODIUM BICARB (1 MEQ/ML) 100 ML IV SCH (05:23)
[2022-04-22] MEDS: LEVOTHYROXINE 75 MCG TAB PO SCH (05:24)
[2022-04-22] MEDS: ISOSORBIDE MONONITRATE ER 30 MG TAB.ER.24H PO SCH (08:14)
[2022-04-22] MEDS: ASPIRIN 81 MG PO SCH (08:14)
[2022-04-22] MEDS: amLODIPine 5 MG TAB PO SCH ×2 (08:14→20:33)
[2022-04-22] MEDS: cloNIDine HCL 0.1 MG TAB PO SCH ×2 (08:15→20:33)
[2022-04-22] MEDS: ESCITALOPRAM 20 MG TAB PO SCH (08:15)
[2022-04-22] MEDS: TICAGRELOR 90 MG TAB PO SCH ×2 (08:15→20:33)
[2022-04-22 09:41] LABS: ALT 25 U/L (4-49); AST 29 U/L (17-59); African American GFR (CKD) >90 (>60 ml/min/1.73 sqM); Albumin 4.4 g/dL (3.5-5.0); Alkaline Phosphatase 103 U/L (38-126); Anion Gap 12 mmol/L; Blood Urea Nitrogen 27 mg/dL (9-20); Calcium 9.4 mg/dL (8.4-10.2); Carbon Dioxide 26 mmol/L (22-30); Chloride 97 mmol/L (98-107); Glucose 142 mg/dL (74-99); Non-African American GFR(CKD) 89 (>60 ml/min/1.73 sqM); Potassium 3.7 mmol/L (3.5-5.1); Sodium 135 mmol/L (137-145); Total Bilirubin 0.8 mg/dL (0.2-1.3)
[2022-04-22 09:44] LABS: Basophils % (A) 0 %; Eosinophils # (A) 0.1 k/uL (0-0.7); Eosinophils % (A) 2 %; HCT 37.6 % (39.0-53.0); Lymphocytes # (A) 1.6 k/uL (1.0-4.8); Lymphocytes % (A) 20 %; MCH 29.7 pg (25.0-35.0); MCHC 35.6 g/dL (31.0-37.0); MCV 83.4 fL (80.0-100.0); Monocytes # (A) 0.6 k/uL (0-1.0); Monocytes % (A) 8 %; Neutrophils # (A) 5.2 k/uL (1.3-7.7); Neutrophils % (A) 67 %; Platelet Count 244 k/uL (150-450); RBC 4.51 m/uL (4.30-5.90); RDW 14.4 % (11.5-15.5); WBC 7.7 k/uL (3.8-10.6)
[2022-04-22 09:49] LABS: HGB 13.4 gm/dL (13.0-17.5)
[2022-04-22] MEDS: ALBUTEROL NEBULIZED 2.5 MG/3 ML INHALATION PRN (12:17)
--- NOTE | 2022-04-22 12:32 | P.PN ---
Subjective Patient is seen for follow-up for acute kidney injury. It is mostly prerenal and significantly improved with IV hydration. Patient has had good urine output Serum creatinine is down from 4.7 on initial admission to 0.8 today. Patient is able to tolerate oral intake. He denies any nausea vomiting or diarrhea Objective - Vital Signs Vital signs: Vital Signs Temp 97.9 F 04/22/22 12:00 Pulse 80 04/22/22 12:29 Resp 16 04/22/22 12:29 BP 121/78 04/22/22 12:00 Pulse Ox 97 04/22/22 12:00 FiO2 Intake & Output 04/21/22 04/22/22 04/22/22 18:59 06:59 18:59 Intake Total 590 1068 Balance 590 1068 Intake: Oral 590 1068 Other: Voiding Method Toilet Toilet Urinal Urinal # Voids 3 - Exam Patient is awake, comfortable, no acute distress Examination of the heart S1 and S2 Examination of the lungs bilateral breath sounds are heard Abdomen is soft nontender Examination of the lower extremity shows no evidence of edema PRODUCTION EXPERT exam grossly intact - Labs CBC & Chem 7: 04/22/22 08:43 04/22/22 08:43 Labs: Abnormal Lab Results - Last 24 Hours (Table) 04/21/22 04/22/22 04/22/22 Range/Units 15:15 08:43 08:43 Hct 37.6 L (39.0-53.0) % Sodium 135 L (137-145) mmol/L Chloride 97 L (98-107) mmol/L BUN 27 H (9-20) mg/dL Glucose 142 H (74-99) mg/dL Urine Protein Trace H (Negative) Assessment and Plan Assessment: 1. Acute kidney injury, nonoliguric, ATN associated with volume depletion, currently improving. Ultrasound shows no evidence of hydronephrosis. The UA is benign 2. Mild hyperkalemia associated with acute kidney injury currently improved 3. Metabolic acidosis associated with acute kidney injury 4. Nausea vomiting diarrhea currently improved 5. Previous episodes of severe acute kidney injury, mostly prerenal and completely resolved. Serum creatinine 0.9-1 mg/dL as of 03/08/2022 6. Hypertension, uncontrolled, increase Norvasc to 10 mg daily Plan: Continue with IV fluids DC IV bicarb Continue to encourage increased oral intake Patient is stable for discharge from nephrology standpoint
[2022-04-22] MEDS: SODIUM CHLORIDE 0.9% 1,000 ML IV SCH (13:00)
[2022-04-22 22:00] VITALS: TEMP 97.7
[2022-04-22] MEDS: HYDROcodone/APAP 7.5-325MG 1 EACH TAB PO PRN (22:35)
[2022-04-23] MEDS: SODIUM CHLORIDE 0.9% 1,000 ML IV SCH (03:13)
[2022-04-23] MEDS: LEVOTHYROXINE 75 MCG TAB PO SCH (05:28)
[2022-04-23] MEDS: HYDROcodone/APAP 7.5-325MG 1 EACH TAB PO PRN (08:16)
[2022-04-23] MEDS: ISOSORBIDE MONONITRATE ER 30 MG TAB.ER.24H PO SCH (08:19)
[2022-04-23] MEDS: amLODIPine 5 MG TAB PO SCH (08:19)
[2022-04-23] MEDS: ESCITALOPRAM 20 MG TAB PO SCH (08:19)
[2022-04-23] MEDS: cloNIDine HCL 0.1 MG TAB PO SCH (08:19)
[2022-04-23] MEDS: ASPIRIN 81 MG PO SCH (08:19)
[2022-04-23] MEDS: TICAGRELOR 90 MG TAB PO SCH (08:19)
[2022-04-23] MEDS: ALBUTEROL NEBULIZED 2.5 MG/3 ML INHALATION PRN (08:37)
[2022-04-23] MEDS: HYDROmorphone 1 MG/ML 1 ML SYRINGE IVP PRN (09:02)
[2022-04-23 10:12] VITALS: RESP 18
[2022-04-23 10:14] VITALS: BP 139/76; PULSE 91
--- NOTE | 2022-04-23 16:01 | P.PN ---
Subjective Patient is seen for follow-up for acute kidney injury. It is mostly prerenal and significantly improved with IV hydration. Patient has had good urine output Serum creatinine is down from 4.7 on initial admission to 0.8 Patient is able to tolerate oral intake. He denies any nausea vomiting or diarrhea Objective - Vital Signs Vital signs: Vital Signs Temp 97.7 F 04/23/22 09:15 Pulse 91 04/23/22 09:15 Resp 18 04/23/22 09:15 BP 139/76 04/23/22 09:15 Pulse Ox 98 04/23/22 09:15 FiO2 Intake & Output 04/22/22 04/23/22 04/23/22 18:59 06:59 18:59 Intake Total 1308 1222 Balance 1308 1222 Intake: Oral 1308 1222 Other: Voiding Method Toilet Toilet Toilet Urinal Urinal Urinal # Voids 5 3 1 # Bowel Movements 0 1 - Exam Patient is awake, comfortable, no acute distress Examination of the heart S1 and S2 Examination of the lungs bilateral breath sounds are heard Abdomen is soft nontender Examination of the lower extremity shows no evidence of edema 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 Acute kidney injury, nonoliguric, ATN associated with volume depletion, currently improved. Ultrasound shows no evidence of hydronephrosis. The UA is benign 2. Mild hyperkalemia associated with acute kidney injury currently improved 3. Metabolic acidosis associated with acute kidney injury 4. Nausea vomiting diarrhea currently improved 5. Previous episodes of severe acute kidney injury, mostly prerenal and completely resolved. Serum creatinine 0.9-1 mg/dL as of 03/08/2022 6. Hypertension, uncontrolled, increase Norvasc to 10 mg daily Plan: Patient is stable for discharge from nephrology standpoint
--- NOTE | 2022-04-24 15:17 | P.HPIM ---
History of Present Illness H&P Date: 04/21/22 Chief Complaint: Acute kidney injury HISTORY OF PRESENT ILLNESS: This is a 67-year-old male with a previous medical history significant for hypertension and hypertensive cardio vascular disease, hyperlipidemia, chronic obstructive pulmonary disease, CAD, hypothyroidism, osteoarthritis status post a recent right total knee arthroplasty, GERD with esophagitis, major depressive disorder and anxiety disorder, patient presented to the emergency department at [facility] after he developed to have a significant diarrheal illness for the last few days prior to the admission associated with nausea vomiting and significant diarrhea patient became extremely fatigued and weak so he showed up to the ER at [facility] he was found to have an acute kidney injury with a creatinine up to 4.47 slightly elevated BUN, patient was not able to keep anything down, he was started on IV fluid resuscitation, he was admitted to the hospital for what appeared to be in acute kidney injury due to acute upper necrosis ultrasound of the kidneys were done did not show evidence of acute hydronephrosis, patient was seen in consultation by nephrology who recommended for the patient to be started on IV fluid in the form of sodium bicarbonate, so he was admitted to the hospital and input and output and daily weight was documented. REVIEW OF SYSTEMS: Constitutional: No documented fever, no chills, no night sweats. No weight change. positive for weakness, fatigue or lethargy. No daytime sleepiness. HEENT: No headache. No blurred vision or double vision, no loss of vision. No loss of Hearing, no ringing in the ears, no dizziness. No nasal drainage or congestion. No epistaxis. No sore throat. Lungs: No shortness of breath, no cough, no sputum production. No wheezing. Reports dyspnea with activity. Cardiovascular: No chest pain, no lower extremity edema. No palpitations. No paroxysmal nocturnal dyspnea. No orthopnea. No lightheadedness or dizziness. No syncopal episodes. Abdominal: Reports abdominal pain. nausea, vomiting. and diarrhea. No constipation. No bloody or tarry stools reports loss of appetite. Genitourinary: No dysuria, increased frequency, urgency. No urinary retention. Musculoskeletal: No myalgias. positive for muscle weakness and leg cramps , no gait dysfunction, no frequent falls. No back pain. No neck pain. Integumentary: No wounds, no lesions. No rash or pruritus. No unusual bruising. No change in hair or nails. Neurologic: No aphasia. No facial droop. No change in mentation. No head injury. No headache. No paralysis. No paresthesia. Psychiatric: positive for depression. No anxiety. No mood swings. Endocrine: No abnormal blood sugars. No weight change. PAST MEDICAL HISTORY: Hypertension and hypertensive cardiovascular disease. Hyperlipidemia. Abdominal aortic thrombus COPD. CAD of [place] artery. Hypothyroidism. Osteoarthritis. GERD with esophagitis. Chronic low back pain status post PE LDF of L3 L5. PAST SURGICAL HISTORY: Left heart catheterization with PCI of the LCx 10/16/2021 Right knee arthroscopic surgery. Right total knee arthroplasty March 2022. P LDF L3 L5 with Tarlov cyst 1999 Hiatal hernia repair 1989. Colonoscopy 2019. Laparoscopic cholecystectomy 1989. Right elbow repair. Left heart catheterization with PCI of the proximal OM1 06/18/2019. Left heart catheterization with PCI of the RCA 11/17/2013. Left heart catheterization with PCI of the LAD 07/03/2007. Left tib-fib Fed ORIF. Left hand surgery. SOCIAL HISTORY: Patient used to smoke about pack every day at the age of 17 and he quit at the age of 27, he smokes marijuana, he drinks alcohol 1-2 drinks at a time no more than 4 drinks a week, he denies any other drug use or abuse. FAMILY HISTORY: Father at age of 80 from motor vehicle accident and had a history of dementia, mother at age of 87 with hypertension and atrial for relation, patient has one brother okay and had 4 sisters one with thyroid disease one with skin cancer and the other 2 are okay patient has 2 sons alive and well and one daughter alive and well as well. PHYSICAL EXAMINATION: General: 67-year-old male laying down in bed in no distress. HEENT: Head is atraumatic, normocephalic, pupils were equal round reactive to light and recommendation, extraocular muscle movement were intact, sclera nonicteric, conjunctivae were pale, mucous membranes of the mouth are somewhat dry. Neck: Supple, no JVP, normal carotid upstroke bilaterally, no lymphadenopathy. Chest: Decreased breath sounds at the bases, few rhonchi, minimal expiratory wheezes, no chest wall tenderness, no intercostal retractions. Heart: First heart sound is normal, second heart sound is normal there is LUIS 2/6 located at the left sternal border. Abdomen: Soft, nontender, nondistended, positive bowel sounds. Extremities: There is no edema no calf tenderness DP +2 bilaterally. Neurologic examination: Patient is awake alert and oriented X 3, cranial nerves II-12 appear grossly intact, muscle power were 5 out of 5 in upper extremities and 5 out of 5 in bilateral lower extremities, deep tendon reflexes normal bilaterally. ASSESSMENT AND PLAN: 1. Acute kidney injury due to acute tubular necrosis due to gastrointestinal fluid loss and. Patient will be started on IV fluid in the form of normal saline that would be switched to sort a bicarbonate drip as 75 mL an hour, monitor the patient input and output and daily weight, ultrasound of the kidney, nephrology consultation, monitor the patient CMP and CBC over the next 24 hours, avoid nephrotoxins and hypotension. 2. Recent gastrointestinal symptoms likely related to gastroenteritis. Resolved, we will continue with IV fluid resuscitation monitor the patient CMP. 3. Coronary artery disease status post multiple PCI's. Continue patient on Proventil 90 mg orally twice every day, continue patient on aspirin 81 mg once every day, continue patient on Brilinta 90 mg po bid continue patient on isosorbide mononitrate 30 mg once every day, continue Repatha 140 mg subcu venously every 2 weeks, monitor lipid panel, keep LDL 5570. 4. Hypertension and hypertensive cardiovascular disease. Continue patient on amlodipine 5 mg orally twice every day, continue patient on clonidine 0.1 mg orally twice every day, monitor the patient blood pressure very closely. 5. Mixed hyperlipidemia. Patient is intolerant to statins. Continue with Repatha 140 mg subcutaneously every 2 weeks keep LDL less than 50 6. Hypothyroidism. Continue Synthroid 75 g orally once every day. 7. GERD with esophagitis and hiatal hernia. Continue patient on pantoprazole 40 mg orally once every day. 8. Anxiety and depressive disorder. Continue patient on Escitalopram 20 mg orally once every day . 9. DVT prophylaxis. Continue patient on Lovenox 30 mg subcutaneously every 24 hours. 10. GI prophylaxis. Continue PPI. 11. recent right total knee arthroplasty. The patient is scoring his pain at 8 out of 10. We'll start the patient on Dilaudid 1 mg IV push every 4 hours as needed, we will transition to oral hydrocodone in the next 1 or 2 days. 12. Admit to inpatient. Estimated length of stay 2 midnights. 13. Patient is full code. Past Medical History Past Medical History: Atrial Fibrillation, Coronary Artery Disease (CAD), Chest Pain / Angina, Deep Vein Thrombosis (DVT), GERD/Reflux, GI Bleed, Hyperlipidemia, Hypertension, Myocardial Infarction (MD), Musculoskeletal Disorder, Osteoarthritis (OA), Pneumonia, Renal Disease, Syncope, Thyroid Disorder Additional Past Medical History / Comment(s): Paroxysmal afib, fell 12 weeks ago and fractured stenum/ribs, episodes of acute renal failure associated with dehydration, ckd stage IV, past melana stools, diverticulitis, IBS, return of hiatal hernia, bronchitis, hypothyroid, chronic low back pain with bilateral sciatica, lumbar DDD, past migraines, DJD, numbness/tingling bilateral legs/feet, 4 DVTs L leg surgically removed. covid + July 2021 Last Myocardial Infarction Date:: 10/15/21 History of Any Multi-Drug Resistant Organisms: None Reported Past Surgical History: Back Surgery, Cholecystectomy, Heart Catheterization, Heart Catheterization With Stent, Hernia Repair, Orthopedic Surgery Additional Past Surgical History / Comment(s): Back fusions L3-L5, ORIF L ankle, L hand fracture with surgery, R knee arthroscopy x2, R elbow tendon release, R shoulder arthroscopy, L shoulder arthroscopy, lumbar spine cyst removed, pain clinic procedures, taylor fundoplication, EGD, colonoscopy, 2019 arteri[facility]rombus [facility]. PTCA w/ 3 stents now. rt knee replacemnt Past Anesthesia/Blood Transfusion Reactions: No Reported Reaction Date of Last Stent Placement:: 10/15/21 Past Psychological History: No Psychological Hx Reported, Depression Additional Psychological History / Comment(s): Pt resides with his spouse. HE is independent. Smoking Status: Former smoker Past Alcohol Use History: Occasional Additional Past Alcohol Use History / Comment(s): Smoked from 1971 to 1983 SMOKED 1PPD. Pt states he drinks less than 14 drinks per week Past Drug Use History: Marijuana Additional Drug Use History / Comment(s): MEDICAL marijuana - daily. - Past Family History Mother Family Medical History: Thyroid Disorder Additional Family Medical History / Comment(s): Mother is living. Father Family Medical History: Coronary Artery Disease (CAD), Diabetes Mellitus Additional Family Medical History / Comment(s): Father had CABG. He at the age of 84 yrs in a MVA. Sister(s) Family Medical History: Cancer Additional Family Medical History / Comment(s): Sister #1 skin cancer, sister #2 thyroid cancer. Medications and Allergies Home Medications Medication Instructions Recorded Confirmed Type Levothyroxine Sodium [Synthroid] 75 mcg PO DAILY 05/04/16 04/20/22 History Escitalopram [Lexapro] 20 mg PO DAILY 12/16/16 04/20/22 History Nitroglycerin Sl Tabs [Nitrostat] 0.4 mg SL Q5M PRN 07/23/21 04/20/22 History Aspirin 81 mg PO DAILY #30 tab 10/17/21 04/20/22 Rx Ticagrelor [Brilinta] 90 mg PO BID #60 tab 10/17/21 04/20/22 Rx Pantoprazole [Protonix] 40 mg PO AC-BID #60 tab 10/22/21 04/20/22 Rx cloNIDine HCL [Catapres] 0.1 mg PO BID tab 10/22/21 04/20/22 Rx amLODIPine [Norvasc] 5 mg PO DAILY 03/12/22 04/20/22 History Evolocumab [Repatha Sureclick] 140 mg SQ Q14D 04/20/22 04/20/22 History HYDROcodone/APAP 7.5-325MG [[place] 1 tab PO Q4HR PRN 04/20/22 04/20/22 History 7.5-325] Isosorbide Mononitrate ER [Imdur] 30 mg PO DAILY 04/20/22 04/20/22 History Ondansetron [Zofran] 4 mg PO Q12HR PRN 04/20/22 04/20/22 History Albuterol Inhaler [Ventolin Hfa 1 - 2 puff INHALATION Q6H PRN 04/21/22 04/21/22 History Inhaler] Allergies Allergy/AdvReac Type Severity Reaction Status Date / Time rivaroxaban [From Xarelto] AdvReac Severe Nausea & Verified 04/20/22 19:51 Vomiting & Diarrhea paroxetine HCl [From Paxil] AdvReac Unknown Nausea & Verified 04/20/22 19:51 Vomiting & Diarrhea apixaban [From Eliquis] AdvReac Nausea & Verified 04/20/22 19:51 Vomiting & Diarrhea atorvastatin [From Lipitor] AdvReac Nausea & Verified 04/20/22 19:51 Vomiting & Diarrhea Beta-Blockers AdvReac Nausea & Verified 04/20/22 19:51 (Beta-Adrenergic Bloc Vomiting & Diarrhea gabapentin AdvReac Nausea & Verified 04/20/22 19:51 Vomiting & Diarrhea [id number] Reductase AdvReac Nausea & Verified 04/20/22 19:51 Inhibitor Vomiting & Diarrhea warfarin AdvReac Nausea & Verified 04/20/22 19:51 Vomiting & Diarrhea Physical Exam Vitals: Vital Signs Temp Pulse Pulse Resp BP BP Pulse Ox 04/21/22 08:00 98.1 F 78 18 188/78 100 04/21/22 04:00 77 19 156/73 95 04/20/22 23:40 92 18 172/93 97 04/20/22 23:19 83 18 129/72 96 04/20/22 22:49 89 18 156/89 96 04/20/22 20:20 94 152/105 98 04/20/22 20:10 89 152/105 04/20/22 20:00 96 139/81 97 04/20/22 19:50 139/81 04/20/22 19:40 85 18 04/20/22 19:30 81 14 137/80 04/20/22 19:20 85 170/104 04/20/22 19:10 87 16 170/104 04/20/22 19:05 95 18 170/104 98 04/20/22 19:03 98 180/130 04/20/22 16:28 98.1 F 110 H 18 152/99 98 Intake and Output 04/20/22 04/21/22 04/21/22 22:59 06:59 14:59 Intake Total 118 Output Total 250 Balance -250 118 Intake: Oral 118 Output: Urine 250 Other: Voiding Method Toilet Urinal Weight 102.058 kg 102.058 kg Results CBC & Chem 7: 04/22/22 08:43 04/22/22 08:43 Labs: Abnormal Lab Results - Last 24 Hours (Table) 04/20/22 04/20/22 04/20/22 Range/Units 17:16 17:16 17:16 WBC 15.1 H (3.8-10.6) k/uL Neutrophils # 12.4 H (1.3-7.7) k/uL D-Dimer 3.08 H (<0.60) mg/L FEU Potassium 5.4 H (3.5-5.1) mmol/L Chloride 95 L (98-107) mmol/L Carbon Dioxide 18 L (22-30) mmol/L BUN 32 H (9-20) mg/dL Creatinine 4.73 H (0.66-1.25) mg/dL Glucose 137 H (74-99) mg/dL Calcium 11.3 H (8.4-10.2) mg/dL Alkaline Phosphatase 172 H (38-126) U/L Total Protein 10.1 H (6.3-8.2) g/dL Albumin 5.8 H (3.5-5.0) g/dL Thrombosis Risk Factor Assmnt - Choose All That Apply Any of the Below Risk Factors Present?: Yes Each Factor Represents 1 point: Obesity (BMI >25) Each Risk Factor Represents 2 Points: Age 61-74 years Thrombosis Risk Factor Assessment Total Risk Factor Score: 3 Thrombosis Risk Factor Assessment Level: Moderate Risk
--- NOTE | 2022-04-24 15:18 | P.PN ---
Subjective Progress Note Date: 04/22/22 HISTORY OF PRESENT ILLNESS: This is a 67-year-old male with a previous medical history significant for hypertension and hypertensive cardio vascular disease, hyperlipidemia, chronic obstructive pulmonary disease, CAD, hypothyroidism, osteoarthritis status post a recent right total knee arthroplasty, GERD with esophagitis, major depressive disorder and anxiety disorder, patient presented to the emergency department at [facility] after he developed to have a significant diarrheal illness for the last few days prior to the admission associated with nausea vomiting and significant diarrhea patient became extremely fatigued and weak so he showed up to the ER at [facility] he was found to have an acute kidney injury with a creatinine up to 4.47 slightly elevated BUN, patient was not able to keep anything down, he was started on IV fluid resuscitation, he was admitted to the hospital for what appeared to be in acute kidney injury due to acute upper necrosis ultrasound of the kidneys were done did not show evidence of acute hydronephrosis, patient was seen in consultation by nephrology who recommended for the patient to be started on IV fluid in the form of sodium bicarbonate, so he was admitted to the hospital and input and output and daily weight was documented. 04/23: Patient is laying down in bed in no apparent distress, he is feeling a lot better, he was taken off his sodium bicarbonate drip, he was seen earlier by nephrology, it was recommended for the patient to be discharged home tonight or tomorrow morning, I will keep the patient overnight, hopefully will be discharged home tomorrow morning. REVIEW OF SYSTEMS: Constitutional: No documented fever, no chills, no night sweats. No weight change. positive for weakness, fatigue or lethargy. No daytime sleepiness. HEENT: No headache. No blurred vision or double vision, no loss of vision. No loss of Hearing, no ringing in the ears, no dizziness. No nasal drainage or congestion. No epistaxis. No sore throat. Lungs: No shortness of breath, no cough, no sputum production. No wheezing. Re ports dyspnea with activity. Cardiovascular: No chest pain, no lower extremity edema. No palpitations. No paroxysmal nocturnal dyspnea. No orthopnea. No lightheadedness or dizziness. No syncopal episodes. Abdominal: Reports abdominal pain. nausea, vomiting. and diarrhea. No constipation. No bloody or tarry stools reports loss of appetite. Genitourinary: No dysuria, increased frequency, urgency. No urinary retention. Musculoskeletal: No myalgias. positive for muscle weakness and leg cramps , no gait dysfunction, no frequent falls. No back pain. No neck pain. Integumentary: No wounds, no lesions. No rash or pruritus. No unusual bruising. No change in hair or nails. Neurologic: No aphasia. No facial droop. No change in mentation. No head injury. No headache. No paralysis. No paresthesia. Psychiatric: positive for depression. No anxiety. No mood swings. Endocrine: No abnormal blood sugars. No weight change. PHYSICAL EXAMINATION: General: 67-year-old male laying down in bed in no distress. HEENT: Head is atraumatic, normocephalic, pupils were equal round reactive to light and recommendation, extraocular muscle movement were intact, sclera nonicteric, conjunctivae were pale, mucous membranes of the mouth are somewhat dry. Neck: Supple, no JVP, normal carotid upstroke bilaterally, no lymphadenopathy. Chest: Decreased breath sounds at the bases, few rhonchi, minimal expiratory wheezes, no chest wall tenderness, no intercostal retractions. Heart: First heart sound is normal, second heart sound is normal there is LUIS 2/6 located at the left sternal border. Abdomen: Soft, nontender, nondistended, positive bowel sounds. Extremities: There is no edema no calf tenderness DP +2 bilaterally. Neurologic examination: Patient is awake alert and oriented X 3, cranial nerves II-12 appear grossly intact, muscle power were 5 out of 5 in upper extremities and 5 out of 5 in bilateral lower extremities, deep tendon reflexes normal bilaterally. ASSESSMENT AND PLAN: 1. Acute kidney injury due to acute tubular necrosis due to gastrointestinal fluid loss and. Creatinine seems to be back to baseline. 2. Recent gastrointestinal symptoms likely related to gastroenteritis. Resolved, we will continue with IV fluid resuscitation monitor the patient CMP. 3. Coronary artery disease status post multiple PCI's. Continue patient on Proventil 90 mg orally twice every day, continue patient on aspirin 81 mg once every day, continue patient on Brilinta 90 mg po bid continue patient on isosorbide mononitrate 30 mg once every day, continue Repatha 140 mg subcu venously every 2 weeks, monitor lipid panel, keep LDL 5570. 4. Hypertension and hypertensive cardiovascular disease. Continue patient on amlodipine 5 mg orally twice every day, continue patient on clonidine 0.1 mg orally twice every day, monitor the patient blood pressure very closely. 5. Mixed hyperlipidemia. Patient is intolerant to statins. Continue with Repatha 140 mg subcutaneously every 2 weeks keep LDL less than 50 6. Hypothyroidism. Continue Synthroid 75 g orally once every day. 7. GERD with esophagitis and hiatal hernia. Continue patient on pantoprazole 40 mg orally once every day. 8. Anxiety and depressive disorder. Continue patient on Escitalopram 20 mg orally once every day . 9. DVT prophylaxis. Continue patient on Lovenox 30 mg subcutaneously every 24 hours. 10. GI prophylaxis. Continue PPI. 11. recent right total knee arthroplasty. Continue current pain management discontinue Dilaudid continue hydrocodone. 12. Home tomorrow morning Objective - Vital Signs Vital signs: Vital Signs Temp 97.7 F 04/22/22 20:30 Pulse 86 04/23/22 05:30 Resp 17 04/23/22 05:30 BP 109/71 04/23/22 05:30 Pulse Ox 96 04/23/22 05:30 FiO2 Intake & Output 04/22/22 04/23/22 04/23/22 18:59 06:59 18:59 Intake Total 1308 750 Balance 1308 750 Intake: Oral 1308 750 Other: Voiding Method Toilet Toilet Urinal Urinal # Voids 5 3 # Bowel Movements 0 - Labs CBC & Chem 7: 04/22/22 08:43 04/22/22 08:43 Labs: Abnormal Lab Results - Last 24 Hours (Table) 04/22/22 04/22/22 Range/Units 08:43 08:43 Hct 37.6 L (39.0-53.0) % Sodium 135 L (137-145) mmol/L Chloride 97 L (98-107) mmol/L BUN 27 H (9-20) mg/dL Glucose 142 H (74-99) mg/dL
--- NOTE | 2022-04-24 15:21 | P.DS ---
Providers Date of admission: 04/20/22 21:31 Expected date of discharge: 04/23/22 Attending physician: Sammie Mercedes Consults: 04/20/22 21:30 Consult Physician Routine Consulting Provider: Rafaela Browne Consult Reason/Comments: acute renal failure Do you want consulting provider notified?: Yes Primary care physician: Sammie Mercedes Hospital Course: HISTORY OF PRESENT ILLNESS: This is a 67-year-old male with a previous medical history significant for hypertension and hypertensive cardio vascular disease, hyperlipidemia, chronic obstructive pulmonary disease, CAD, hypothyroidism, osteoarthritis status post a recent right total knee arthroplasty, GERD with esophagitis, major depressive disorder and anxiety disorder, patient presented to the emergency department at [facility] after he developed to have a significant diarrheal illness for the last few days prior to the admission associated with nausea vomiting and significant diarrhea patient became extremely fatigued and weak so he showed up to the ER at [facility] he was found to have an acute kidney injury with a creatinine up to 4.47 slightly elevated BUN, patient was not able to keep anything down, he was started on IV fluid resuscitation, he was admitted to the hospital for what appeared to be in acute kidney injury due to acute upper necrosis ultrasound of the kidneys were done did not show evidence of acute hydronephrosis, patient was seen in consultation by nephrology who recommended for the patient to be started on IV fluid in the form of sodium bicarbonate, so he was admitted to the hospital and input and output and daily weight was documented. 04/23: Patient is laying down in bed in no apparent distress, he is feeling a lot better, he was taken off his sodium bicarbonate drip, he was seen earlier by nephrology, it was recommended for the patient to be discharged home tonight or tomorrow morning, I will keep the patient overnight, hopefully will be discharged home tomorrow morning. 04/24: Patient is feeling a lot better today he denies any chest pain, shortness breath, he has no abdominal pain, he has no diarrhea, he seems to be tolerating hydrocodone very well, he does not have any IV, he did not receive any Dilaudid since yesterday, patient will be discharged home a follow-up with me as an outpatient next week. Discharge diagnoses: 1. Acute kidney injury due to acute tubular necrosis. 2. Recent gastroenteritis. 3. Status post recent right total knee arthroplasty. 4. Post surgical pain. 5. CAD post PCI's. 6. Hypertension and hypertensive cardiovascular disease. 7. Non-anion gap metabolic acidosis due to acute kidney injury. 8. Hyperlipidemia. 9. Hypothyroidism. 10. GERD with esophagitis. 11. Osteoarthritis post right total knee arthroplasty. 12. Thoracic aortic thrombus. 13. Chronic low back pain. 14. Chronic pain syndrome 15. Anxiety and depression Patient Condition at Discharge: Stable Plan - Discharge Summary Discharge Rx Participant: No New Discharge Prescriptions: Continue Levothyroxine Sodium [Synthroid] 75 mcg PO DAILY Escitalopram [Lexapro] 20 mg PO DAILY Ticagrelor [Brilinta] 90 mg PO BID #60 tab Pantoprazole [Protonix] 40 mg PO AC-BID #60 tab cloNIDine HCL [Catapres] 0.1 mg PO BID tab Isosorbide Mononitrate ER [Imdur] 30 mg PO DAILY HYDROcodone/APAP 7.5-325MG [[place] 7.5-325] 1 tab PO Q4HR PRN PRN Reason: Pain Nitroglycerin Sl Tabs [Nitrostat] 0.4 mg SL Q5M PRN PRN Reason: Chest Pain Aspirin 81 mg PO DAILY #30 tab amLODIPine [Norvasc] 5 mg PO DAILY Evolocumab [Repatha Sureclick] 140 mg SQ Q14D Ondansetron [Zofran] 4 mg PO Q12HR PRN PRN Reason: Nausea Albuterol Inhaler [Ventolin Hfa Inhaler] 1 - 2 puff INHALATION Q6H PRN PRN Reason: Shortness Of Breath Or Wheezing Discharge Medication List Levothyroxine Sodium [Synthroid] 75 mcg PO DAILY 05/04/16 [History] Escitalopram [Lexapro] 20 mg PO DAILY 12/16/16 [History] Nitroglycerin Sl Tabs [Nitrostat] 0.4 mg SL Q5M PRN 07/23/21 [History] Aspirin 81 mg PO DAILY #30 tab 10/17/21 [Rx] Ticagrelor [Brilinta] 90 mg PO BID #60 tab 10/17/21 [Rx] Pantoprazole [Protonix] 40 mg PO AC-BID #60 tab 10/22/21 [Rx] cloNIDine HCL [Catapres] 0.1 mg PO BID tab 10/22/21 [Rx] amLODIPine [Norvasc] 5 mg PO DAILY 03/12/22 [History] Evolocumab [Repatha Sureclick] 140 mg SQ Q14D 04/20/22 [History] HYDROcodone/APAP 7.5-325MG [[place] 7.5-325] 1 tab PO Q4HR PRN 04/20/22 [History] Isosorbide Mononitrate ER [Imdur] 30 mg PO DAILY 04/20/22 [History] Ondansetron [Zofran] 4 mg PO Q12HR PRN 04/20/22 [History] Albuterol Inhaler [Ventolin Hfa Inhaler] 1 - 2 puff INHALATION Q6H PRN 04/21/22 [History] Follow up Appointment(s)/Referral(s): Sammie Mercedes MD [Primary Care Provider] - 04/30/22 9:45 am (Tuesday) Patient Instructions/Handouts: Acute Kidney Injury (GEN) Discharge Disposition: HOME SELF-CARE
== END 2022-04-23 11:54 | disposition home or self-care (01) | DRG 683 ==
LOC: EC 16:23 → 3SCARD 21:31
PROVIDERS: ADMIT Internal Medicine; ATTEND Internal Medicine
DX: N17.0 Acute kidney failure with tubular necrosis (principal); E87.20 Acidosis, unspecified; I13.10 Hypertensive heart and chronic kidney disease without heart failure, with stage 1 through stage 4 chronic kidney disease, or unspecified chronic kidney disease; E03.9 Hypothyroidism, unspecified; N18.4 Chronic kidney disease, stage 4 (severe); I48.0 Paroxysmal atrial fibrillation; J44.9 Chronic obstructive pulmonary disease, unspecified; K21.00 Gastro-esophageal reflux disease with esophagitis, without bleeding; E87.5 Hyperkalemia; E86.9 Volume depletion, unspecified; K52.9 Noninfective gastroenteritis and colitis, unspecified; E78.2 Mixed hyperlipidemia; I25.2 Old myocardial infarction; G89.4 Chronic pain syndrome; M54.50 Low back pain, unspecified; F32.9 Major depressive disorder, single episode, unspecified; F41.9 Anxiety disorder, unspecified; I25.10 Atherosclerotic heart disease of native coronary artery without angina pectoris; I44.0 Atrioventricular block, first degree; K44.9 Diaphragmatic hernia without obstruction or gangrene; K58.9 Irritable bowel syndrome, unspecified; K57.30 Diverticulosis of large intestine without perforation or abscess without bleeding; M19.90 Unspecified osteoarthritis, unspecified site; Z79.82 Long term (current) use of aspirin; Z79.890 Hormone replacement therapy; Z79.02 Long term (current) use of antithrombotics/antiplatelets; Z79.899 Other long term (current) drug therapy; Z87.891 Personal history of nicotine dependence; Z96.651 Presence of right artificial knee joint; Z86.16 Personal history of COVID-19; Z95.5 Presence of coronary angioplasty implant and graft; Z88.8 Allergy status to other drugs, medicaments and biological substances
CPT/HCPCS: 36415; 74176; 76770; 78582; 80048; 80053; 81003; 82272; 83735; 84484; 85025; 85379; 85610; 85730; 86850; 86900; 86901; 93005; 94640; 96361; 96374; 96375; 96376; 99285

== ENCOUNTER 2022-05-03 12:32 | Emergency (ER) | payer MEDICARE ==
[2022-05-03 12:54] VITALS: RESP 18; TEMP 97.8
[2022-05-03] MEDS ORDERED: HYDROmorphone 1 MG/ML 1 ML SYRINGE IVP STA (14:07)
--- NOTE | 2022-05-03 14:13 | ED ---
Fall HPI - General Chief Complaint: Fall Stated Complaint: Fall Time Seen by Provider: 05/03/22 12:47 Source: patient, EMS Mode of arrival: EMS - History of Present Illness Initial Comments: 67-year-old male past history of paroxysmal A. fib, coronary artery disease, DVT, hypertension, hyperlipidemia who presents to the emergency department after he sustained a fall. Reports that he had a total right knee replacement done by Dr. Mancini on March 22. Today when he was walking into his bathroom he twisted his right knee and fell backwards hitting the back of his head on the tub. States that he lost consciousness. When he awoke he attempted to stand up however fell backwards and hit his head again. He then was able to call EMS. Patient arrives and is concerned about his right knee. It has markedly swelling. He does have some pain which radiates from the mid femur down. The operative site is still healed. He does not have any headache or neck pain. No back pain. Denies chest pain or shortness of breath. No visual changes. No confusion or garbled speech. Denies any weakness in his arms. No other alleviating, precipitating or modifying factors - Related Data Home Medications Medication Instructions Recorded Confirmed Levothyroxine Sodium [Synthroid] 75 mcg PO DAILY 05/04/16 05/03/22 Escitalopram [Lexapro] 20 mg PO DAILY 12/16/16 05/03/22 Nitroglycerin Sl Tabs [Nitrostat] 0.4 mg SL Q5M PRN 07/23/21 05/03/22 amLODIPine [Norvasc] 5 mg PO DAILY 03/12/22 05/03/22 Evolocumab [Repatha Sureclick] 140 mg SQ Q14D 04/20/22 05/03/22 HYDROcodone/APAP 7.5-325MG [[place] 1 tab PO Q6H PRN 04/20/22 05/03/22 7.5-325] Isosorbide Mononitrate ER [Imdur] 30 mg PO DAILY 04/20/22 05/03/22 Ondansetron [Zofran] 4 mg PO Q12HR PRN 04/20/22 05/03/22 Albuterol Inhaler [Ventolin Hfa 1 - 2 puff INHALATION Q6H PRN 04/21/22 05/03/22 Inhaler] Azithromycin [Zithromax Z Pack] See Taper PO DIRECTED 05/03/22 05/03/22 Previous Rx's Medication Instructions Recorded Aspirin 81 mg PO DAILY #30 tab 10/17/21 Ticagrelor [Brilinta] 90 mg PO BID #60 tab 10/17/21 Pantoprazole [Protonix] 40 mg PO AC-BID #60 tab 10/22/21 cloNIDine HCL [Catapres] 0.1 mg PO BID tab 10/22/21 Allergies Allergy/AdvReac Type Severity Reaction Status Date / Time rivaroxaban [From Xarelto] AdvReac Severe Nausea & Verified 05/03/22 14:53 Vomiting & Diarrhea paroxetine HCl [From Paxil] AdvReac Unknown Nausea & Verified 05/03/22 14:53 Vomiting & Diarrhea apixaban [From Eliquis] AdvReac Nausea & Verified 05/03/22 14:53 Vomiting & Diarrhea atorvastatin [From Lipitor] AdvReac Nausea & Verified 05/03/22 14:53 Vomiting & Diarrhea Beta-Blockers AdvReac Nausea & Verified 05/03/22 14:53 (Beta-Adrenergic Bloc Vomiting & Diarrhea gabapentin AdvReac Nausea & Verified 05/03/22 14:53 Vomiting & Diarrhea Wceglun-YXP-IoH Reductase AdvReac Nausea & Verified 05/03/22 14:53 Inhibitor Vomiting & Diarrhea warfarin AdvReac Nausea & Verified 05/03/22 14:53 Vomiting & Diarrhea Review of Systems ROS Statement: Those systems with pertinent positive or pertinent negative responses have been documented in the HPI. ROS Other: All systems not noted in ROS Statement are negative. Past Medical History Past Medical History: Atrial Fibrillation, Coronary Artery Disease (CAD), Chest Pain / Angina, Deep Vein Thrombosis (DVT), GERD/Reflux, GI Bleed, Hype rlipidemia, Hypertension, Myocardial Infarction (ME), Musculoskeletal Disorder, Osteoarthritis (OA), Pneumonia, Renal Disease, Syncope, Thyroid Disorder Additional Past Medical History / Comment(s): Paroxysmal afib, fell 12 weeks ago and fractured stenum/ribs, episodes of acute renal failure associated with dehydration, ckd stage IV, past melana stools, diverticulitis, IBS, return of hiatal hernia, bronchitis, hypothyroid, chronic low back pain with bilateral sciatica, lumbar DDD, past migraines, DJD, numbness/tingling bilateral legs/feet, 4 DVTs L leg surgically removed. covid + July 2021 Last Myocardial Infarction Date:: 10/15/21 History of Any Multi-Drug Resistant Organisms: None Reported Past Surgical History: Back Surgery, Cholecystectomy, Heart Catheterization, Heart Catheterization With Stent, Hernia Repair, Orthopedic Surgery Additional Past Surgical History / Comment(s): Back fusions L3-L5, ORIF L ankle, L hand fracture with surgery, R knee arthroscopy x2, R elbow tendon release, R shoulder arthroscopy, L shoulder arthroscopy, lumbar spine cyst removed, pain clinic procedures, taylor fundoplication, EGD, colonoscopy, 2019 arteriogram/thrombus extraction at [facility]. PTCA w/ 3 stents now. rt knee replacemnt Past Anesthesia/Blood Transfusion Reactions: No Reported Reaction Date of Last Stent Placement:: 10/15/21 Past Psychological History: No Psychological Hx Reported, Depression Smoking Status: Former smoker Past Alcohol Use History: Occasional Past Drug Use History: Marijuana - Past Family History Mother Family Medical History: Thyroid Disorder Additional Family Medical History / Comment(s): Mother is living. Father Family Medical History: Coronary Artery Disease (CAD), Diabetes Mellitus Additional Family Medical History / Comment(s): Father had CABG. He at the age of 84 yrs in a MVA. Sister(s) Family Medical History: Cancer Additional Family Medical History / Comment(s): Sister #1 skin cancer, sister #2 thyroid cancer. General Exam Limitations: no limitations General appearance: alert, in no apparent distress Head exam: Present: normocephalic, other (Left occipital scalp hematoma measuri ng 4 cm) Eye exam: Present: normal appearance, PERRL, EOMI. Absent: scleral icterus, conjunctival injection, periorbital swelling ENT exam: Present: normal exam, mucous membranes moist Neck exam: Present: normal inspection. Absent: tenderness, meningismus, lymphadenopathy Respiratory exam: Present: normal lung sounds bilaterally. Absent: respiratory distress, wheezes, rales, rhonchi, stridor Cardiovascular Exam: Present: regular rate, normal rhythm, normal heart sounds. Absent: systolic murmur, diastolic murmur, rubs, gallop, clicks GI/Abdominal exam: Present: soft, normal bowel sounds. Absent: distended, tenderness, guarding, rebound, rigid Extremities exam: Present: tenderness (Significant effusion right knee. Midline incision is clean, dry and intact). Absent: pedal edema, joint swelling, calf tenderness Back exam: Present: normal inspection Neurological exam: Present: alert, oriented X3, CN II-XII intact Psychiatric exam: Present: normal affect, normal mood Skin exam: Present: warm, dry, intact, normal color. Absent: rash Course Vital Signs 05/03/22 05/03/22 05/03/22 12:47 14:35 15:46 Temperature 97.8 F Pulse Rate 105 H 108 H 105 H Respiratory 18 18 18 Rate Blood Pressure 150/107 150/90 133/64 O2 Sat by Pulse 99 98 97 Oximetry - Reevaluation(s) Reevaluation #1: CT report viewed by myself - read at [facility]. Report was never communicated to me. 05/03/22 14:55 Reevaluation #2: 05/03/22 15:12 Spoke with patient - made aware he requires transfer and agrees to transfer Reevaluation #3: Patient accepted by Dr. Tsai at [facility] 05/03/22 15:18 Medical Decision Making - Medical Decision Making Upon arrival patient was placed into trauma 1. He is a non-activated trauma as he only had a ground-level fall. He has no neurologic complaints. He is in a c-collar. Patient does go for CT of his head and cervical spine. He does remove the cervical collar on his own. He is made aware that his computed tomography scan is not ready yet we do not recommend that he take it off however patient refuses to keep it on. Patient is additionally sent for an x-ray of his right knee, pelvis. The radiologist does read the head CT as a 3 mm hyperdense focus of the left frontal parietal junction. Acute petechial hemorrhage cannot be excluded. This was not communicated at time of dictation. X-ray of the knee demonstrates diffuse soft tissue edema in the suprapatellar anterior soft tissues. Patient was given 1 mg of Dilaudid for pain control. Discussed the diagnosis with the patient and the need for transfer to a facility with neurosurgical capabilities. Patient understood this. I spoke with Dr. Tsai at [facility] who accepted transfer the patient. Was pt. sent in by a medical professional or institution (, PA, COMMUNITY SERVICE REPRESENTATIVE, urgent care, hospital, or long-term...) When possible be specific @ -No Did you speak to anyone other than the patient for history (EMS, parent, family, police, friend...)? What history was obtained from this source @ -EMS Did you review nursing and triage notes (agree or disagree)? Why? @ -I reviewed and agree with nursing and triage notes Were old charts reviewed (outside hosp., previous admission, EMS record, old EKG, old radiological studies, urgent care reports/EKG's, long-term records)? Report findings @ -Old charts were reviewed Differential Diagnosis (chest pain, altered mental status, abdominal pain women, abdominal pain men, vaginal bleeding, weakness, fever, dyspnea, syncope, headache, dizziness, GI bleed, back pain, seizure, CVA, palpatations, mental health, musculoskeletal)? @ -SAH, SDH, concussion, right knee broken hardware, knee dislocation EKG interpreted by me (3pts min.). @ -As above X-rays interpreted by me (1pt min.). @ -yes CT interpreted by me (1pt min.). @ -Yes U/S interpreted by me (1pt. min.). @ -None done What testing was considered but not performed or refused? (CT, X-rays, U/S, labs)? Why? @ -None What meds were considered but not given or refused? Why? @ -None Did you discuss the management of the patient with other professionals (professionals i.e. , PA, COMMUNITY SERVICE REPRESENTATIVE, lab, RT, psych nurse, social media sr strategy manager, commissary representative, teacher, major gifts officer, rifle case repairer)? Give summary @ -[facility] campbell Was smoking cessation discussed for >3mins.? @ -No Was critical care preformed (if so, how long)? @ -yes, 35 minutes Were there social determinants of health that impacted care today? How? (Homelessness, low income, unemployed, alcoholism, drug addiction, transportation, low edu. Level, literacy, decrease access to med. care, fpc, rehab)? @ -No Was there de-escalation of care discussed even if they declined (Discuss DNR or withdrawal of care, Hospice)? DNR status @ -No What co-morbidities impacted this encounter? (DM, HTN, Smoking, COPD, CAD, Cancer, CVA, ARF, Chemo, Hep., AIDS, mental health diagnosis, sleep apnea, morbid obesity)? @ -None Was patient admitted / discharged? Hospital course, mention meds given and route, prescriptions, significant lab abnormalities, going to OR and other pertinent info. @ -Transferred Undiagnosed new problem with uncertain prognosis? @ -yes Drug Therapy requiring intensive monitoring for toxicity (Heparin, Nitro, Insulin, Cardizem)? @ -No Were any procedures done? @ -No Diagnosis/symptom? @ -possible iph, s/p fall, concussion with loc, right knee effusion Acute, or Chronic, or Acute on Chronic? @ -acute Uncomplicated (without systemic symptoms) or Complicated (systemic symptoms)? @ -complicated Side effects of treatment? @ -No Exacerbation, Progression, or Severe Exacerbation? @ -No Poses a threat to life or bodily function? How? (Chest pain, USA, ME, pneumonia, PE, COPD, DKA, ARF, appy, cholecystitis, CVA, Diverticulitis, Homicidal, Suicidal, threat to staff... and all critical care pts) @ -Yes - Lab Data Result diagrams: 05/03/22 14:35 05/03/22 14:35 Lab Results 05/03/22 05/03/22 05/03/22 Range/Units 14:35 14:35 14:35 WBC 16.4 H (3.8-10.6) k/uL RBC 5.37 (4.30-5.90) m/uL Hgb 15.7 (13.0-17.5) gm/dL Hct 43.9 (39.0-53.0) % MCV 81.8 (80.0-100.0) fL MCH 29.3 (25.0-35.0) pg MCHC 35.9 (31.0-37.0) g/dL RDW 14.2 (11.5-15.5) % Plt Count 451 H (150-450) k/uL MPV 7.9 Neutrophils % 87 % Lymphocytes % 9 % Monocytes % 4 % Eosinophils % 0 % Basophils % 0 % Neutrophils # 14.2 H (1.3-7.7) k/uL Lymphocytes # 1.4 (1.0-4.8) k/uL Monocytes # 0.6 (0-1.0) k/uL Eosinophils # 0.0 (0-0.7) k/uL Basophils # 0.0 (0-0.2) k/uL PT 10.1 (9.0-12.0) sec INR 1.0 (<1.2) APTT 22.1 (22.0-30.0) sec Sodium 141 (137-145) mmol/L Potassium 4.5 (3.5-5.1) mmol/L Chloride 106 (98-107) mmol/L Carbon Dioxide 18 L (22-30) mmol/L Anion Gap 17 mmol/L BUN 20 (9-20) mg/dL Creatinine 2.00 H (0.66-1.25) mg/dL Est GFR (CKD-EPI)AfAm 39 (>60 ml/min/1.73 sqM) Est GFR (CKD-EPI)NonAf 33 (>60 ml/min/1.73 sqM) Glucose 128 H (74-99) mg/dL Calcium 11.2 H (8.4-10.2) mg/dL Total Bilirubin 0.8 (0.2-1.3) mg/dL AST 28 (17-59) U/L ALT 28 (4-49) U/L Alkaline Phosphatase 162 H (38-126) U/L Total Protein 8.7 H (6.3-8.2) g/dL Albumin 5.2 H (3.5-5.0) g/dL - EKG Data EKG Comments: EKG demonstrates sinus tachycardia with a rate 101. MT interval 212. QRS 107. QTC of 408. No acute ST segment elevations or depressions. Q waves in lead 3 and aVF Critical Care Time Critical Care Time: Yes Critical Care Time: 35 minutes Disposition Clinical Impression: Fall, Concussion with loss of consciousness, Petechial hemorrhage, Knee effusion, right Disposition: OTHER INSTITUTION NOT DEFINED Condition: Serious Is patient prescribed a controlled substance at d/c from ED?: No Referrals: None,Stated [Primary Care Provider] - 1-2 days Time of Disposition: 15:46 - Out of Hospital Transfer - Req. Specs Out of Hospital Transfer - Requested Specifics: Other Emergency Center ([facility])
--- NOTE | 2022-05-03 14:25 | CT ---
EXAMINATION TYPE: CT brain susi wo con DATE OF EXAM: 05/03/2022 COMPARISON: NONE HISTORY: Head injury, fall, neck pain CT DLP: 1616.2 mGycm. Automated Exposure Control for Dose Reduction was Utilized. TECHNIQUE: CT scan of the head and cervical spine are performed without contrast. FINDINGS: There is 3 mm hyperdense focus high deep left frontal parietal junction axial image 41. No midline shift. The ventricles and sulci are within normal limits in size. Ramos-white matter differen tiation is maintained. The globes are intact bilaterally. There is mucosal thickening and patchy opac ification of the ethmoid and sphenoid sinuses bilaterally. There is dependent fluid in the left front al and left maxillary sinus. The calvarium is intact. Cervical spine is visualized in its entirety from C1 through upper thoracic levels and demonstrates s atisfactory alignment without evidence of acute fracture or dislocation. Prevertebral soft tissue ap pears within normal limits. The C1-C2 articulation is within normal limits on the coronal images. V ertebral body heights are maintained. Mild to moderate disc space narrowing C5-C6 level is seen. Spin al canal is grossly preserved. Lung apices show no pneumothorax. Thyroid gland is somewhat small in s ize IMPRESSION: 1. There is no acute fracture or dislocation evident in the cervical spine. 2. There is 3 mm hyperdense focus left frontoparietal junction. Acute petechial parenchymal hemorrhag e cannot be excluded without prior comparison. Correlation with old outside CT would be beneficial ot herwise short-term CT imaging follow-up is advised. Acute on chronic paranasal sinusitis is noted as detailed above
--- NOTE | 2022-05-03 14:34 | XR ---
EXAMINATION TYPE: XR knee complete RT DATE OF EXAM: 05/03/2022 COMPARISON: NONE HISTORY: pain TECHNIQUE: Three views are submitted. FINDINGS: Diffuse soft tissue edema. Vascular calcifications and postoperative changes.. Osseous structures ar e intact. No acute fracture seen. IMPRESSION: 1. No acute fracture or dislocation. There is severe diffuse soft tissue edema in the suprapatellar anterior soft tissues. Correlate for infection or postoperative edema.
--- NOTE | 2022-05-03 14:35 | XR ---
EXAMINATION TYPE: XR pelvis AP view DATE OF EXAM: 05/03/2022 COMPARISON: NONE HISTORY: Pain The osseous structures are intact and the joint spaces are preserved. No acute fracture is seen. Vi sualized bowel gas pattern is nonspecific. Postsurgical changes lower lumbar spine. There is scleros is involving bilateral femoral heads. IMPRESSION: 1. No acute fracture. There is bilateral hip arthropathy with sclerosis of the bilateral femoral head s which can be associated with osteonecrosis. MRI of the bilateral hip recommended.
[2022-05-03 15:17] LABS: Basophils % (A) 0 %; Eosinophils % (A) 0 %; HCT 43.9 % (39.0-53.0); HGB 15.7 gm/dL (13.0-17.5); Lymphocytes # (A) 1.4 k/uL (1.0-4.8); Lymphocytes % (A) 9 %; MCH 29.3 pg (25.0-35.0); MCHC 35.9 g/dL (31.0-37.0); MCV 81.8 fL (80.0-100.0); Mean Platelet Volume 7.9; Monocytes # (A) 0.6 k/uL (0-1.0); Monocytes % (A) 4 %; Neutrophils # (A) 14.2 k/uL (1.3-7.7); Neutrophils % (A) 87 %; Platelet Count 451 k/uL (150-450); RBC 5.37 m/uL (4.30-5.90); RDW 14.2 % (11.5-15.5); WBC 16.4 k/uL (3.8-10.6)
[2022-05-03 15:30] LABS: Partial Thromboplastin Time 22.1 sec (22.0-30.0); Prothrombin Time 10.1 sec (9.0-12.0)
[2022-05-03 15:43] LABS: Albumin 5.2 g/dL (3.5-5.0); Calcium 11.2 mg/dL (8.4-10.2); Potassium 4.5 mmol/L (3.5-5.1); Total Bilirubin 0.8 mg/dL (0.2-1.3); Total Protein 8.7 g/dL (6.3-8.2)
[2022-05-03 15:48] VITALS: BP 133/64; PULSE 105
== END 2022-05-03 16:05 | disposition other institution (70) ==
LOC: EC 12:32
DX: S06.0X9A Concussion with loss of consciousness of unspecified duration, initial encounter (principal); M25.461 Effusion, right knee; R23.3 Spontaneous ecchymoses; F12.90 Cannabis use, unspecified, uncomplicated; E78.5 Hyperlipidemia, unspecified; I25.10 Atherosclerotic heart disease of native coronary artery without angina pectoris; I12.9 Hypertensive chronic kidney disease with stage 1 through stage 4 chronic kidney disease, or unspecified chronic kidney disease; N18.4 Chronic kidney disease, stage 4 (severe); K21.9 Gastro-esophageal reflux disease without esophagitis; E07.9 Disorder of thyroid, unspecified; Z79.890 Hormone replacement therapy; Z90.49 Acquired absence of other specified parts of digestive tract; Z88.8 Allergy status to other drugs, medicaments and biological substances; Z87.891 Personal history of nicotine dependence; Z95.5 Presence of coronary angioplasty implant and graft; Z96.651 Presence of right artificial knee joint; Z79.899 Other long term (current) drug therapy; W01.198A Fall on same level from slipping, tripping and stumbling with subsequent striking against other object, initial encounter; Y93.E1 Activity, personal bathing and showering; Y92.002 Bathroom of unspecified non-institutional (private) residence as the place of occurrence of the external cause
CPT/HCPCS: 99291; 96374; 36415; 80053; 85025; 85610; 85730; 72170; 73562; 72125; 70450; J1170

== ENCOUNTER 2022-05-18 16:33 | Emergency (ER) | payer MEDICARE ==
[2022-05-18 16:42] VITALS: TEMP 98.3
[2022-05-18] MEDS ORDERED: diphenhydrAMINE 50 MG/ML 1 ML VIAL IVP STA ×2 (16:47→21:31)
[2022-05-18] MEDS ORDERED: SODIUM CHLORIDE 0.9% 1,000 ML IV STA (16:47)
[2022-05-18] MEDS ORDERED: ONDANSETRON 4 MG/2 ML VIAL IVP STA (16:47)
[2022-05-18] MEDS ORDERED: METOCLOPRAMIDE 5 MG/ML 2 ML VIAL IVP STA (17:25)
[2022-05-18] MEDS ORDERED: HYDROmorphone 1 MG/ML 1 ML SYRINGE IVP STA ×2 (17:25→21:31)
--- NOTE | 2022-05-18 18:06 | ED ---
Nausea/Vomiting/Diarrhea HPI - General Source: patient, EMS, RN notes reviewed Mode of arrival: EMS Limitations: physical limitation - History of Present Illness MD complaint: nausea, vomiting, diarrhea <Carolann Hurd - Last Filed: 05/18/22 19:44> <Amos Sherman - Last Filed: 05/18/22 21:31> - General Chief complaint: Nausea/Vomiting/Diarrhea Stated complaint: Abd Pain Time Seen by Provider: 05/18/22 16:40 - History of Present Illness Initial comments: This is a 67-year-old male who presents to the emergency department for nausea and vomiting. States that he has been vomiting approximately once each day over the course of the last week. Today, he had repeated episodes of vomiting and has been unable to keep anything down. He has associated generalized abdominal pain. He also reports that he had right knee surgery little over a week ago at [place]. He has been unable to keep down his hydrocodone due to the nausea and vomiting, resulting in increased knee pain. Also has loose stools. Denies any changes in urinary habits. Denies any fevers, chills, sore throat, cough, dyspnea, chest pain, palpitations, back pain, or headaches. (Carolann Hurd) - Related Data Home Medications Medication Instructions Recorded Confirmed Levothyroxine Sodium [Synthroid] 75 mcg PO DAILY 05/04/16 05/03/22 Escitalopram [Lexapro] 20 mg PO DAILY 12/16/16 05/03/22 Nitroglycerin Sl Tabs [Nitrostat] 0.4 mg SL Q5M PRN 07/23/21 05/03/22 amLODIPine [Norvasc] 5 mg PO DAILY 03/12/22 05/03/22 Evolocumab [Repatha Sureclick] 140 mg SQ Q14D 04/20/22 05/03/22 HYDROcodone/APAP 7.5-325MG [[place] 1 tab PO Q6H PRN 04/20/22 05/03/22 7.5-325] Isosorbide Mononitrate ER [Imdur] 30 mg PO DAILY 04/20/22 05/03/22 Ondansetron [Zofran] 4 mg PO Q12HR PRN 04/20/22 05/03/22 Albuterol Inhaler [Ventolin Hfa 1 - 2 puff INHALATION Q6H PRN 04/21/22 05/03/22 Inhaler] Azithromycin [Zithromax Z Pack] See Taper PO DIRECTED 05/03/22 05/03/22 Previous Rx's Medication Instructions Recorded Aspirin 81 mg PO DAILY #30 tab 10/17/21 Ticagrelor [Brilinta] 90 mg PO BID #60 tab 10/17/21 Pantoprazole [Protonix] 40 mg PO AC-BID #60 tab 10/22/21 cloNIDine HCL [Catapres] 0.1 mg PO BID tab 10/22/21 Allergies Allergy/AdvReac Type Severity Reaction Status Date / Time rivaroxaban [From Xarelto] AdvReac Severe Nausea & Verified 05/18/22 16:42 Vomiting & Diarrhea paroxetine HCl [From Paxil] AdvReac Unknown Nausea & Verified 05/18/22 16:42 Vomiting & Diarrhea apixaban [From Eliquis] AdvReac Nausea & Verified 05/18/22 16:42 Vomiting & Diarrhea atorvastatin [From Lipitor] AdvReac Nausea & Verified 05/18/22 16:42 Vomiting & Diarrhea Beta-Blockers AdvReac Nausea & Verified 05/18/22 16:42 (Beta-Adrenergic Bloc Vomiting & Diarrhea gabapentin AdvReac Nausea & Verified 05/18/22 16:42 Vomiting & Diarrhea Cxsjixf-ITI-XbL Reductase AdvReac Nausea & Verified 05/18/22 16:42 Inhibitor Vomiting & Diarrhea warfarin AdvReac Nausea & Verified 05/18/22 16:42 Vomiting & Diarrhea Review of Systems ROS Other: All systems not noted in ROS Statement are negative. <Carolann Hurd - Last Filed: 05/18/22 19:44> ROS Other: All systems not noted in ROS Statement are negative. <Amos Sherman - Last Filed: 05/18/22 21:31> ROS Statement: Those systems with pertinent positive or pertinent negative responses have been documented in the HPI. Past Medical History Past Medical History: Atrial Fibrillation, Coronary Artery Disease (CAD), Chest Pain / Angina, Deep Vein Thrombosis (DVT), GERD/Reflux, GI Bleed, Hyperlipidemia, Hypertension, Myocardial Infarction (SC), Musculoskeletal Disorder, Osteoarthritis (OA), Pneumonia, Renal Disease, Syncope, Thyroid Disor arin Additional Past Medical History / Comment(s): Paroxysmal afib, fell 12 weeks ago and fractured stenum/ribs, episodes of acute renal failure associated with dehydration, ckd stage IV, past melana stools, diverticulitis, IBS, return of hiatal hernia, bronchitis, hypothyroid, chronic low back pain with bilateral sciatica, lumbar DDD, past migraines, DJD, numbness/tingling bilateral legs/feet, 4 DVTs L leg surgically removed. covid + July 2021 Last Myocardial Infarction Date:: 10/15/21 History of Any Multi-Drug Resistant Organisms: None Reported Past Surgical History: Back Surgery, Cholecystectomy, Heart Catheterization, Heart Catheterization With Stent, Hernia Repair, Orthopedic Surgery Additional Past Surgical History / Comment(s): Back fusions L3-L5, ORIF L ankle, L hand fracture with surgery, R knee arthroscopy x2, R elbow tendon release, R shoulder arthroscopy, L shoulder arthroscopy, lumbar spine cyst removed, pain clinic procedures, taylor fundoplication, EGD, colonoscopy, 2019 arteriogram/thrombus extraction at [facility]. PTCA w/ 3 stents now. rt knee replacemnt Past Anesthesia/Blood Transfusion Reactions: No Reported Reaction Date of Last Stent Placement:: 10/15/21 Past Psychological History: No Psychological Hx Reported, Depression Smoking Status: Former smoker Past Alcohol Use History: Occasional Past Drug Use History: Marijuana - Past Family History Mother Family Medical History: Thyroid Disorder Additional Family Medical History / Comment(s): Mother is living. Father Family Medical History: Coronary Artery Disease (CAD), Diabetes Mellitus Additional Family Medical History / Comment(s): Father had CABG. He at the age of 84 yrs in a MVA. Sister(s) Family Medical History: Cancer Additional Family Medical History / Comment(s): Sister #1 skin cancer, sister #2 thyroid cancer. <Carolann Hurd - Last Filed: 05/18/22 19:44> General Exam Limitations: physical limitation General appearance: alert, in no apparent distress Head exam: Present: atraumatic, normocephalic, normal inspection Respiratory exam: Present: normal lung sounds bilaterally. Absent: respiratory distress, wheezes, rales, rhonchi, stridor Cardiovascular Exam: Present: regular rate, normal rhythm, normal heart sounds. Absent: systolic murmur, diastolic murmur, rubs, gallop, clicks GI/Abdominal exam: Present: soft, normal bowel sounds. Absent: distended, tenderness, guarding, rebound, rigid Neurological exam: Present: alert, oriented X3, CN II-XII intact Psychiatric exam: Present: normal affect, normal mood Skin exam: Present: warm, dry, intact, normal color. Absent: rash <Carolann Hurd - Last Filed: 05/18/22 19:44> General appearance: alert, in no apparent distress Head exam: Present: atraumatic, normocephalic, normal inspection Eye exam: Present: normal appearance, PERRL, EOMI. Absent: scleral icterus, conjunctival injection, periorbital swelling ENT exam: Present: normal exam, mucous membranes moist Neck exam: Present: normal inspection. Absent: tenderness, meningismus, lymphadenopathy Respiratory exam: Present: normal lung sounds bilaterally. Absent: respiratory distress, wheezes, rales, rhonchi, stridor Cardiovascular Exam: Present: regular rate, normal rhythm, normal heart sounds. Absent: systolic murmur, diastolic murmur, rubs, gallop, clicks GI/Abdominal exam: Present: soft, normal bowel sounds. Absent: distended, tenderness, guarding, rebound, rigid Extremities exam: Present: normal inspection, full ROM, normal capillary refill. Absent: tenderness, pedal edema, joint swelling, calf tenderness Back exam: Present: normal inspection Neurological exam: Present: alert, oriented X3, CN II-XII intact Psychiatric exam: Present: normal affect, normal mood Skin exam: Present: warm, dry, intact, normal color. Absent: rash <Amos Sherman - Last Filed: 05/18/22 21:31> Course <Amos Sherman - Last Filed: 05/18/22 21:31> Vital Signs 05/18/22 05/18/22 05/18/22 16:36 18:22 19:45 Temperature 98.3 F Pulse Rate 81 85 90 Respiratory 24 20 20 Rate Blood Pressure 157/88 168/110 174/94 O2 Sat by Pulse 99 97 100 Oximetry 05/18/22 21:00 Temperature Pulse Rate 83 Respiratory 20 Rate Blood Pressure 178/94 O2 Sat by Pulse 97 Oximetry - Reevaluation(s) Reevaluation #1: 05/18/22 21:29 Medical record is reviewed (Amos Sherman) Reevaluation #2: 05/18/22 21:29 Patient informed results and questions answered (Amos Sherman) Reevaluation #3: 05/18/22 21:29 Patient has no significant findings here in the ER (Amos Sherman) Medical Decision Making - Lab Data Result diagrams: 05/18/22 17:03 05/18/22 17:03 - Radiology Data Radiology results: report reviewed, image reviewed <Carolann Hurd - Last Filed: 05/18/22 19:44> - Lab Data Result diagrams: 05/18/22 17:03 05/18/22 17:03 - Radiology Data Radiology results: report reviewed (CT of the abdomen is negative for acute disease.), image reviewed <Amos Sherman - Last Filed: 05/18/22 21:31> - Medical Decision Making This is a 67-year-old male who presents to the emergency department for nausea and vomiting. Was pt. sent in by a medical professional or institution? @ -No Did you speak to anyone other than the patient for history? @ -No Did you review nursing and triage notes? @ -Yes, and I agree, it is accurate with regards to the patient's symptoms. Were old charts reviewed? @ -No Differential Diagnosis? @ -Differential Nausea and Vomiting: Gastroenteritis, cholecystitis, appendicitis, pancreatitis, migraine, benign positional vertigo, food borne illness, pyelonephritis, irritable bowel syndrome, influenza, Covid, GERD, incarcerated hernia, intestinal obstruction, this is not meant to be an all-inclusive list. CT interpreted by me (1pt min.)? @ -[none] What testing was considered but not performed? (CT, X-rays, U/S, labs)? Why? @ -None What meds were considered but not given? Why? @ -None Did you discuss the management of the patient with other professionals? @ -No Did you reconcile home meds? @ -No Was smoking cessation discussed for >3mins.? @ -No Was critical care preformed (if so, how long)? @ -No Were there social determinants of health that impacted care today? How? (Homelessness, low income, unemployed, alcoholism, drug addiction, transportation, low edu. Level, literacy, decrease access to med. care, correction, rehab)? @ -No Was there de-escalation of care discussed even if they declined? (Discuss DNR or withdrawal of care, Hospice)? @ -No What co-morbidities impacted this encounter? (DM, HTN, Smoking, COPD, CAD, Cancer, CVA, Hep., AIDS, mental health diagnosis, sleep apnea, morbid obesity)? @ -Morbid obesity, CAD, HTN, HLD, OA, renal disease Was patient admitted / discharged? @ -Lab work obtained revealing a slightly low hemoglobin level. It was otherwise nonactionable. Urinalysis negative for signs of infection. He was initially given IV fluids, Benadryl, and Zofran. States that he continued to have nausea, however the vomiting stopped. He was subsequently given Reglan. This also did not control his nausea and we then tried a dose of Compazine. He was given a dose of Dilaudid for the leg pain as he is unable to keep down his hydrocodone. This only offered minor improvement and he started to complain of abdominal pain. Given the severity is abdominal pain and uncontrollable nausea and vomiting, computed tomography scan of the abdomen and pelvis was subsequently obtained. Undiagnosed new problem with uncertain prognosis? @ -None Drug Therapy requiring intensive monitoring for toxicity (Heparin, Nitro, Insulin, Cardizem)? @ -None Were any procedures done? @ -None Diagnosis/symptom? @ -[default] Acute, or Chronic, or Acute on Chronic? @ -[default] Uncomplicated (without systemic symptoms) or Complicated (systemic symptoms)? @ -[default] Side effects of treatment? @ -[none] Exacerbation, Progression, or Severe Exacerbation] @ -Not applicable Poses a threat to life or bodily function? @ -[no] (Carolann Hurd) 5 female DF for intractable nausea vomiting patient reevaluation patient feels well computed tomography scan is normal lab values or without significant f inding and can be discharged home (Amos Sherman) - Lab Data Lab Results 05/18/22 05/18/22 05/18/22 Range/Units 17:03 17:03 17:03 WBC 10.6 (3.8-10.6) k/uL RBC 4.06 L (4.30-5.90) m/uL Hgb 11.8 L D (13.0-17.5) gm/dL Hct 34.5 L (39.0-53.0) % MCV 85.0 (80.0-100.0) fL MCH 29.1 (25.0-35.0) pg MCHC 34.3 (31.0-37.0) g/dL RDW 15.5 (11.5-15.5) % Plt Count 268 (150-450) k/uL MPV 8.3 Neutrophils % 84 % Lymphocytes % 10 % Monocytes % 4 % Eosinophils % 0 % Basophils % 0 % Neutrophils # 8.9 H (1.3-7.7) k/uL Lymphocytes # 1.1 (1.0-4.8) k/uL Monocytes # 0.5 (0-1.0) k/uL Eosinophils # 0.0 (0-0.7) k/uL Basophils # 0.0 (0-0.2) k/uL Sodium 138 (137-145) mmol/L Potassium 4.3 (3.5-5.1) mmol/L Chloride 100 (98-107) mmol/L Carbon Dioxide 21 L (22-30) mmol/L Anion Gap 17 mmol/L BUN 13 (9-20) mg/dL Creatinine 0.73 (0.66-1.25) mg/dL Est GFR (CKD-EPI)AfAm >90 (>60 ml/min/1.73 sqM) Est GFR (CKD-EPI)NonAf >90 (>60 ml/min/1.73 sqM) Glucose 118 H (74-99) mg/dL Calcium 10.0 (8.4-10.2) mg/dL Magnesium 1.6 (1.6-2.3) mg/dL Total Bilirubin 0.7 (0.2-1.3) mg/dL AST 28 (17-59) U/L ALT 35 (4-49) U/L Alkaline Phosphatase 135 H (38-126) U/L Troponin I <0.012 (0.000-0.034) ng/mL Total Protein 7.5 (6.3-8.2) g/dL Albumin 4.7 (3.5-5.0) g/dL Amylase 39 (30-110) U/L Lipase 51 (23-300) U/L Urine Color Urine Appearance (Clear) Urine pH (5.0-8.0) Ur Specific [place] (1.001-1.035) Urine Protein (Negative) Urine Glucose (UA) (Negative) Urine Ketones (Negative) Urine Blood (Negative) Urine Nitrite (Negative) Urine Bilirubin (Negative) Urine Urobilinogen (<2.0) mg/dL Ur Leukocyte Esterase (Negative) 05/18/22 Range/Units 18:22 WBC (3.8-10.6) k/uL RBC (4.30-5.90) m/uL Hgb (13.0-17.5) gm/dL Hct (39.0-53.0) % MCV (80.0-100.0) fL MCH (25.0-35.0) pg MCHC (31.0-37.0) g/dL RDW (11.5-15.5) % Plt Count (150-450) k/uL MPV Neutrophils % % Lymphocytes % % Monocytes % % Eosinophils % % Basophils % % Neutrophils # (1.3-7.7) k/uL Lymphocytes # (1.0-4.8) k/uL Monocytes # (0-1.0) k/uL Eosinophils # (0-0.7) k/uL Basophils # (0-0.2) k/uL Sodium (137-145) mmol/L Potassium (3.5-5.1) mmol/L Chloride (98-107) mmol/L Carbon Dioxide (22-30) mmol/L Anion Gap mmol/L BUN (9-20) mg/dL Creatinine (0.66-1.25) mg/dL Est GFR (CKD-EPI)AfAm (>60 ml/min/1.73 sqM) Est GFR (CKD-EPI)NonAf (>60 ml/min/1.73 sqM) Glucose (74-99) mg/dL Calcium (8.4-10.2) mg/dL Magnesium (1.6-2.3) mg/dL Total Bilirubin (0.2-1.3) mg/dL AST (17-59) U/L ALT (4-49) U/L Alkaline Phosphatase (38-126) U/L Troponin I (0.000-0.034) ng/mL Total Protein (6.3-8.2) g/dL Albumin (3.5-5.0) g/dL Amylase (30-110) U/L Lipase (23-300) U/L Urine Color Light Yellow Urine Appearance Clear (Clear) Urine pH 7.5 (5.0-8.0) Ur Specific [place] 1.009 (1.001-1.035) Urine Protein Negative (Negative) Urine Glucose (UA) Negative (Negative) Urine Ketones Negative (Negative) Urine Blood Negative (Negative) Urine Nitrite Negative (Negative) Urine Bilirubin Negative (Negative) Urine Urobilinogen <2.0 (<2.0) mg/dL Ur Leukocyte Esterase Negative (Negative) Disposition <Carolann Hurd - Last Filed: 05/18/22 19:44> Is patient prescribed a controlled substance at d/c from ED?: No Time of Disposition: 21:30 <Amos Sherman - Last Filed: 05/18/22 21:31> Clinical Impression: Intractable vomiting with nausea, Dehydration, moderate, Acute gastroenteritis Disposition: HOME SELF-CARE Instructions (If sedation given, give patient instructions): Acute Nausea and Vomiting (ED) Referrals: Sammie Mercedes MD [Primary Care Provider] - 1-2 days
[2022-05-18 18:18] LABS: Basophils % (A) 0 %; Eosinophils % (A) 0 %; HCT 34.5 % (39.0-53.0); Lymphocytes # (A) 1.1 k/uL (1.0-4.8); Lymphocytes % (A) 10 %; MCH 29.1 pg (25.0-35.0); MCHC 34.3 g/dL (31.0-37.0); Mean Platelet Volume 8.3; Monocytes # (A) 0.5 k/uL (0-1.0); Monocytes % (A) 4 %; Neutrophils # (A) 8.9 k/uL (1.3-7.7); Neutrophils % (A) 84 %; Platelet Count 268 k/uL (150-450); RBC 4.06 m/uL (4.30-5.90); RDW 15.5 % (11.5-15.5); WBC 10.6 k/uL (3.8-10.6)
[2022-05-18 18:23] LABS: HGB 11.8 gm/dL (13.0-17.5)
[2022-05-18 18:32] LABS: ALT 35 U/L (4-49); AST 28 U/L (17-59); African American GFR (CKD) >90 (>60 ml/min/1.73 sqM); Albumin 4.7 g/dL (3.5-5.0); Alkaline Phosphatase 135 U/L (38-126); Amylase 39 U/L (30-110); Anion Gap 17 mmol/L; Blood Urea Nitrogen 13 mg/dL (9-20); Carbon Dioxide 21 mmol/L (22-30); Chloride 100 mmol/L (98-107); Glucose 118 mg/dL (74-99); Lipase 51 U/L (23-300); Magnesium 1.6 mg/dL (1.6-2.3); Non-African American GFR(CKD) >90 (>60 ml/min/1.73 sqM); Potassium 4.3 mmol/L (3.5-5.1); Sodium 138 mmol/L (137-145); Total Bilirubin 0.7 mg/dL (0.2-1.3); Total Protein 7.5 g/dL (6.3-8.2)
[2022-05-18 18:58] LABS: Appearance,Urine Clear (Clear); Bilirubin,Urine Negative (Negative); Blood,Urine Negative (Negative); Color,Urine Light Yellow; Glucose,Urine (UA) Negative (Negative); Ketones,Urine Negative (Negative); Leukocyte Esterase,Urine Negative (Negative); Nitrite,Urine Negative (Negative); PH, Urine 7.5 (5.0-8.0); Protein,Urine Negative (Negative); Specific Gravity,Urine 1.009 (1.001-1.035); Urobilinogen,Urine <2.0 mg/dL (<2.0)
[2022-05-18] MEDS ORDERED: PROCHLORPERAZINE INJ 10 MG/2 ML VIAL IVP STA (19:00)
--- NOTE | 2022-05-18 21:08 | CT ---
EXAMINATION TYPE: CT abdomen pelvis w con CT DLP: 1514.2 mGycm, Automated exposure control for dose reduction was used. DATE OF EXAM: 05/18/2022 8:45 PM COMPARISON: CT abdomen pelvis most recent from 04/20/2022. CLINICAL INDICATION:Male, 67 years old with history of Abdominal pain, acute, nonlocalized; abd pain, nonlocalized. TECHNIQUE: Axial CT of the abdomen and pelvis. Sagittal and coronal reformats were created on a [employer] workstation. Contrast used:100ml mL of Isovue 370 with IV Contrast, Oral contrast used: without Oral Contrast FINDINGS: LOWER CHEST: Unremarkable ABDOMEN LIVER: Hepatic cyst is present. GALLBLADDER AND BILE DUCTS: The gallbladder surgically absent. PANCREAS: Unremarkable. SPLEEN: There are 2 splenules present. ADRENAL GLANDS: Unremarkable. KIDNEYS AND URETERS: No evidence of hydronephrosis or renal calculus. The ureters are unremarkable. PELVIS BLADDER: Unremarkable REPRODUCTIVE: Unremarkable. ABDOMEN & PELVIS STOMACH AND BOWEL: No evidence of bowel obstruction. Moderate hiatal hernia is present. PERITONEUM/RETROPERITONEUM: No evidence of pneumoperitoneum or free fluid. VASCULATURE: No evidence of aortic aneurysm. MUSCULOSKELETAL: No acute osseous abnormalities changes spine. Hardware from L3 to L5 appears intact. Laminectomy changes at L4 and L5 are present. LYMPH NODES: No gross evidence for lymphadenopathy. SOFT TISSUE/ABDOMINAL WALL: Unremarkable IMPRESSION: 1. No evidence for acute abdominal process. No obstructive uropathy. No bowel obstruction. 2. Colonic diverticulosis. 3. Moderate hiatal hernia.
[2022-05-18 22:50] VITALS: BP 135/87; PULSE 80; RESP 16
== END 2022-05-18 23:11 | disposition home or self-care (01) ==
LOC: EC 16:33
DX: E86.0 Dehydration (principal); K52.9 Noninfective gastroenteritis and colitis, unspecified; I12.9 Hypertensive chronic kidney disease with stage 1 through stage 4 chronic kidney disease, or unspecified chronic kidney disease; N18.4 Chronic kidney disease, stage 4 (severe); I25.10 Atherosclerotic heart disease of native coronary artery without angina pectoris; I25.2 Old myocardial infarction; E03.9 Hypothyroidism, unspecified; F32.A Depression, unspecified; Z79.890 Hormone replacement therapy; Z79.899 Other long term (current) drug therapy; Z87.891 Personal history of nicotine dependence; Z88.8 Allergy status to other drugs, medicaments and biological substances; Z86.16 Personal history of COVID-19; Z95.5 Presence of coronary angioplasty implant and graft; Z90.49 Acquired absence of other specified parts of digestive tract; Z86.718 Personal history of other venous thrombosis and embolism
CPT/HCPCS: 36415; 80053; 82150; 83690; 83735; 84484; 85025; 81003; 74177; 99285; 96374; 96375 ×4; 96376 ×2; 96361; J1200; J0780; J2765; J2405; J1170; Q9967

== ENCOUNTER 2022-06-10 12:33 | Observation (INO) | payer MEDICARE ==
--- NOTE | 2022-06-10 12:52 | ED ---
Weakness HPI - General Chief complaint: Weakness Stated complaint: CHILLS-VOMMITING Time Seen by Provider: 06/10/22 12:48 Source: EMS, RN notes reviewed, old records reviewed Mode of arrival: EMS Limitations: no limitations - History of Present Illness Initial comments: This is a 59-year-old male the ER today patient presents stay for evaluation of nausea vomiting lightheadedness dizziness weakness not feeling well history of similar. Patient states is about is worse disease felt symptoms for 2-3 days severely worse, symptoms began about a 19/2 ago with shaking diaphoresis nausea vomiting and generalized body aches and pains. Abdominal pain diarrhea. Diarrhea was initial onset of symptoms MD Complaint: generalized weakness, lack of energy, difficulty walking -: hour(s) Location: generalized Severity: moderate, severe Severity scale (1-10): 8 Quality: tingling, numbness, aching Consistency: constant Improves with: none Worsens with: none Context: history of similar Associated Symptoms: diaphoresis, fever/chills, loss of appetite, nausea/vomiting, shortness of breath - Related Data Home Medications Medication Instructions Recorded Confirmed Levothyroxine Sodium [Synthroid] 75 mcg PO DAILY 05/04/16 06/10/22 Escitalopram [Lexapro] 20 mg PO DAILY 12/16/16 06/10/22 Nitroglycerin Sl Tabs [Nitrostat] 0.4 mg SL Q5M PRN 07/23/21 06/10/22 Evolocumab [Repatha Sureclick] 140 mg SQ Q14D 04/20/22 06/10/22 Isosorbide Mononitrate ER [Imdur] 30 mg PO DAILY 04/20/22 06/10/22 Albuterol Inhaler [Ventolin Hfa 1 - 2 puff INHALATION RT-Q6H PRN 04/21/22 06/10/22 Inhaler] Dalvance See Taper IV TH 06/10/22 06/10/22 Pregabalin [Lyrica] 75 mg PO BID 06/10/22 06/10/22 amLODIPine [Norvasc] 10 mg PO DAILY 06/10/22 06/10/22 tiZANidine [Zanaflex] 2 mg PO Q8HR PRN 06/10/22 06/10/22 traMADol HCl [Ultram] 50 mg PO Q6H PRN 06/10/22 06/10/22 Previous Rx's Medication Instructions Recorded Aspirin 81 mg PO DAILY #30 tab 10/17/21 Ticagrelor [Brilinta] 90 mg PO BID #60 tab 10/17/21 Pantoprazole [Protonix] 40 mg PO AC-BID #60 tab 10/22/21 cloNIDine HCL [Catapres] 0.1 mg PO BID tab 10/22/21 Allergies Allergy/AdvReac Type Severity Reaction Status Date / Time rivaroxaban [From Xarelto] AdvReac Severe Nausea & Verified 06/10/22 16:19 Vomiting & Diarrhea paroxetine HCl [From Paxil] AdvReac Unknown Nausea & Verified 06/10/22 16:19 Vomiting & Diarrhea apixaban [From Eliquis] AdvReac Nausea & Verified 06/10/22 16:19 Vomiting & Diarrhea atorvastatin [From Lipitor] AdvReac Nausea & Verified 06/10/22 16:19 Vomiting & Diarrhea Beta-Blockers AdvReac Nausea & Verified 06/10/22 16:19 (Beta-Adrenergic Bloc Vomiting & Diarrhea gabapentin AdvReac Nausea & Verified 06/10/22 16:19 Vomiting & Diarrhea Brkjocf-CGC-OwJ Reductase AdvReac Nausea & Verified 06/10/22 16:19 Inhibitor Vomiting & Diarrhea warfarin AdvReac Nausea & Verified 06/10/22 16:19 Vomiting & Diarrhea Review of Systems ROS Statement: Those systems with pertinent positive or pertinent negative responses have been documented in the HPI. ROS Other: All systems not noted in ROS Statement are negative. Past Medical History Past Medical History: Atrial Fibrillation, Coronary Artery Disease (CAD), Chest Pain / Angina, Deep Vein Thrombosis (DVT), GERD/Reflux, GI Bleed, Hyperlipidemia, Hypertension, Myocardial Infarction (FL), Musculoskeletal Disorder, Osteoarthritis (OA), Pneumonia, Renal Disease, Syncope, Thyroid Disorder Additional Past Medical History / Comment(s): Paroxysmal afib, fell 12 weeks ago and fractured stenum/ribs, episodes of acute renal failure associated with dehydration, ckd stage IV, past melana stools, diverticulitis, IBS, return of hiatal hernia, bronchitis, hypothyroid, chronic low back pain with bilateral sci atica, lumbar DDD, past migraines, DJD, numbness/tingling bilateral legs/feet, 4 DVTs L leg surgically removed. covid + July 2021 Last Myocardial Infarction Date:: 10/15/21 History of Any Multi-Drug Resistant Organisms: None Reported Past Surgical History: Back Surgery, Cholecystectomy, Heart Catheterization, Heart Catheterization With Stent, Hernia Repair, Orthopedic Surgery Additional Past Surgical History / Comment(s): Back fusions L3-L5, ORIF L ankle, L hand fracture with surgery, R knee arthroscopy x2, R elbow tendon release, R shoulder arthroscopy, L shoulder arthroscopy, lumbar spine cyst removed, pain clinic procedures, taylor fundoplication, EGD, colonoscopy, 2019 arteriogram/thrombus extraction at [facility]. PTCA w/ 3 stents now. rt knee replacemnt Past Anesthesia/Blood Transfusion Reactions: No Reported Reaction Date of Last Stent Placement:: 10/15/21 Past Psychological History: No Psychological Hx Reported, Depression Smoking Status: Former smoker Past Alcohol Use History: Occasional Past Drug Use History: Marijuana - Past Family History Mother Family Medical History: Thyroid Disorder Additional Family Medical History / Comment(s): Mother is living. Father Family Medical History: Coronary Artery Disease (CAD), Diabetes Mellitus Additional Family Medical History / Comment(s): Father had CABG. He at the age of 84 yrs in a MVA. Sister(s) Family Medical History: Cancer Additional Family Medical History / Comment(s): Sister #1 skin cancer, sister #2 thyroid cancer. General Exam Limitations: no limitations General appearance: alert, anxious, in distress Head exam: Present: atraumatic, normocephalic, normal inspection Eye exam: Present: normal appearance, PERRL, EOMI. Absent: scleral icterus, conjunctival injection, periorbital swelling ENT exam: Present: normal exam, mucous membranes dry Neck exam: Present: normal inspection. Absent: tenderness, meningismus, lymphadenopathy Respiratory exam: Present: normal lung sounds bilaterally. Absent: respiratory distress, wheezes, rales, rhonchi, stridor Cardiovascular Exam: Present: normal rhythm, tachycardia, normal heart sounds. Absent: systolic murmur, diastolic murmur, rubs, gallop, clicks GI/Abdominal exam: Present: soft, normal bowel sounds. Absent: distended, tenderness, guarding, rebound, rigid Extremities exam: Present: normal inspection, full ROM, normal capillary refill. Absent: tenderness, pedal edema, joint swelling, calf tenderness Back exam: Present: normal inspection Neurological exam: Present: alert, oriented X3, CN II-XII intact Psychiatric exam: Present: normal affect, normal mood Skin exam: Present: warm, dry, intact, normal color. Absent: rash Course Vital Signs 06/10/22 06/10/22 06/10/22 12:41 14:11 15:08 Temperature 98.4 F Pulse Rate 112 H 87 85 Respiratory 18 18 18 Rate Blood Pressure 163/93 144/88 126/87 O2 Sat by Pulse 98 97 96 Oximetry 06/10/22 06/10/22 17:10 18:10 Temperature Pulse Rate 89 86 Respiratory 18 18 Rate Blood Pressure 155/92 148/92 O2 Sat by Pulse 99 96 Oximetry - Reevaluation(s) Reevaluation #1: 06/10/22 20:56 Medical record is reviewed Reevaluation #2: 06/10/22 20:56 Patient has mild improvement in symptoms here in the emergency department Reevaluation #3: 06/10/22 20:56 Patient informed results and questions answered Reevaluation #4: 06/10/22 20:56 Was pt. sent in by a medical professional or institution? @ -no Did you speak to anyone other than the patient for history? @ -no Did you review nursing and triage notes? @ -agree Were old charts reviewed? @ -yes multiple similar admits and ED visits w lactic acidosis Differential Diagnosis? @ -prior, weak EKG interpreted by me (3pts min.)? @ -yes X-rays interpreted by me (1pt min.)? @ -yes CT interpreted by me (1pt min.)? @ -no U/S interpreted by me (1pt. min.)? @ -no What testing was considered but not performed? (CT, X-rays, U/S, labs)? Why? @ -no What meds were considered but not given? Why? @ -no Did you discuss the management of the patient with other professionals? @ -no Did you reconcile home meds? @ -no Was smoking cessation discussed for >3mins.? @ -no Was critical care preformed (if so, how long)? @ -no Were there social determinants of health that impacted care today? How? (Homelessness, low income, unemployed, alcoholism, drug addiction, transportation, low edu. Level, literacy, decrease access to med. care, longterm, rehab)? @ -no Was there de-escalation of care discussed even if they declined? (Discuss DNR or withdrawal of care, Hospice)? @ -no What co-morbidities impacted this encounter? (DM, HTN, Smoking, COPD, CAD, Cancer, CVA, Hep., AIDS, mental health diagnosis, sleep apnea, morbid obesity)? @ -no Was patient admitted / discharged? @ -admit Undiagnosed new problem with uncertain prognosis? @ -no Drug Therapy requiring intensive monitoring for toxicity (Heparin, Nitro, Insulin, Cardizem)? @ -no Were any procedures done? @ -no Diagnosis/symptom? @ -n,v,weak,lactic acidosis Acute, or Chronic, or Acute on Chronic? @ -acute Uncomplicated (without systemic symptoms) or Complicated (systemic symptoms)? @ -uncomplicated Side effects of treatment? @ -none Exacerbation, Progression, or Severe Exacerbation] @ -exacerbation Poses a threat to life or bodily function? @ -no Reevaluation #5: 06/10/22 20:56 Differential Weakness: Hypoglycemia, shock, sepsis, hyponatremia, anemia, infection, FL, ETOH, adverse medicine reaction, overdose, stroke, this is not meant to be an all-inclusive list. - Consultations Consultation #1: Spoke with admitting physician Dr. Mercedes who is okay for admission EKG Findings - EKG Comments: EKG Findings:: EKG is sinus tachycardia 107 NM 225 QRS 114 QTc 399 Medical Decision Making - Medical Decision Making 67 male to the emergency department for evaluation patient presents today for evaluation regards to persistent severe nausea vomiting weakness shaking chills. Patient has nausea vomiting for 2 days with diaphoresis and shaking significant lactic acidosis. Patient will be admitted for supportive care and symptom management - Lab Data Result diagrams: 06/10/22 13:47 06/10/22 13:47 Lab Results 06/10/22 06/10/22 06/10/22 Range/Units 13:47 13:47 13:47 WBC 10.7 H (3.8-10.6) k/uL RBC 5.78 (4.30-5.90) m/uL Hgb 16.4 D (13.0-17.5) gm/dL Hct 49.1 (39.0-53.0) % MCV 85.0 (80.0-100.0) fL MCH 28.4 (25.0-35.0) pg MCHC 33.5 (31.0-37.0) g/dL RDW 15.2 (11.5-15.5) % Plt Count 290 (150-450) k/uL MPV 8.1 Neutrophils % 87 % Lymphocytes % 8 % Monocytes % 4 % Eosinophils % 0 % Basophils % 0 % Neutrophils # 9.2 H (1.3-7.7) k/uL Lymphocytes # 0.9 L (1.0-4.8) k/uL Monocytes # 0.4 (0-1.0) k/uL Eosinophils # 0.0 (0-0.7) k/uL Basophils # 0.0 (0-0.2) k/uL PT 10.5 (9.0-12.0) sec INR 1.0 (<1.2) APTT 22.1 (22.0-30.0) sec Sodium 141 (137-145) mmol/L Potassium 4.2 (3.5-5.1) mmol/L Chloride 102 (98-107) mmol/L Carbon Dioxide 15 L (22-30) mmol/L Anion Gap 24 mmol/L BUN 21 H (9-20) mg/dL Creatinine 1.79 H (0.66-1.25) mg/dL Est GFR (CKD-EPI)AfAm 44 (>60 ml/min/1.73 sqM) Est GFR (CKD-EPI)NonAf 38 (>60 ml/min/1.73 sqM) Glucose 161 H (74-99) mg/dL Lactic Ac Sepsis Rflx Plasma Lactic Acid Chacorta (0.7-2.0) mmol/L Calcium 11.3 H (8.4-10.2) mg/dL Phosphorus 4.4 (2.5-4.5) mg/dL Magnesium 1.9 (1.6-2.3) mg/dL Total Bilirubin 1.2 (0.2-1.3) mg/dL AST 31 (17-59) U/L ALT 38 (4-49) U/L Alkaline Phosphatase 147 H (38-126) U/L Troponin I (0.000-0.034) ng/mL Total Protein 9.5 H (6.3-8.2) g/dL Albumin 5.7 H (3.5-5.0) g/dL 06/10/22 06/10/22 06/10/22 Range/Units 13:47 13:47 14:51 WBC (3.8-10.6) k/uL RBC (4.30-5.90) m/uL Hgb (13.0-17.5) gm/dL Hct (39.0-53.0) % MCV (80.0-100.0) fL MCH (25.0-35.0) pg MCHC (31.0-37.0) g/dL RDW (11.5-15.5) % Plt Count (150-450) k/uL MPV Neutrophils % % Lymphocytes % % Monocytes % % Eosinophils % % Basophils % % Neutrophils # (1.3-7.7) k/uL Lymphocytes # (1.0-4.8) k/uL Monocytes # (0-1.0) k/uL Eosinophils # (0-0.7) k/uL Basophils # (0-0.2) k/uL PT (9.0-12.0) sec INR (<1.2) APTT (22.0-30.0) sec Sodium (137-145) mmol/L Potassium (3.5-5.1) mmol/L Chloride (98-107) mmol/L Carbon Dioxide (22-30) mmol/L Anion Gap mmol/L BUN (9-20) mg/dL Creatinine (0.66-1.25) mg/dL Est GFR (CKD-EPI)AfAm (>60 ml/min/1.73 sqM) Est GFR (CKD-EPI)NonAf (>60 ml/min/1.73 sqM) Glucose (74-99) mg/dL Lactic Ac Sepsis Rflx Y Plasma Lactic Acid Chacorta 5.1 H* (0.7-2.0) mmol/L Calcium (8.4-10.2) mg/dL Phosphorus (2.5-4.5) mg/dL Magnesium (1.6-2.3) mg/dL Total Bilirubin (0.2-1.3) mg/dL AST (17-59) U/L ALT (4-49) U/L Alkaline Phosphatase (38-126) U/L Troponin I <0.012 (0.000-0.034) ng/mL Total Protein (6.3-8.2) g/dL Albumin (3.5-5.0) g/dL - EKG Data -: EKG Interpreted by Me (EKG is sinus tach 107 NM 225 QRS 114 QTc 399) - Radiology Data Radiology results: report reviewed (Chest and pelvis x-ray chest and pelvis x- ray negative for acute disease), image reviewed Critical Care Time Critical Care Time: Yes Total Critical Care Time: 31 Disposition Clinical Impression: Renal failure, Intractable vomiting, Acute kidney failure, Lactic acidosis, Dehydration Disposition: ADMITTED IP TO THIS [facility] Condition: Good Is patient prescribed a controlled substance at d/c from ED?: No Time of Disposition: 17:00
[2022-06-10] MEDS ORDERED: SODIUM CHLORIDE 0.9% 1,000 ML IV STA (13:40)
[2022-06-10] MEDS ORDERED: LORazepam 2 MG/ML INJ IV STA (13:40)
[2022-06-10] MEDS ORDERED: ONDANSETRON 4 MG/2 ML VIAL IVP STA (13:40)
[2022-06-10] MEDS ORDERED: HYDROmorphone 1 MG/ML 1 ML SYRINGE IVP STA (13:40)
[2022-06-10] MEDS ORDERED: cloNIDine 0.2 MG/24HR PATCH TRANSDERM SCH (14:00)
[2022-06-10 14:34] LABS: Albumin 5.7 g/dL (3.5-5.0); Calcium 11.3 mg/dL (8.4-10.2); Magnesium 1.9 mg/dL (1.6-2.3); Phosphorus 4.4 mg/dL (2.5-4.5); Potassium 4.2 mmol/L (3.5-5.1); Total Bilirubin 1.2 mg/dL (0.2-1.3); Total Protein 9.5 g/dL (6.3-8.2)
[2022-06-10 14:39] LABS: Partial Thromboplastin Time 22.1 sec (22.0-30.0); Prothrombin Time 10.5 sec (9.0-12.0)
[2022-06-10 14:48] LABS: Basophils % (A) 0 %; Eosinophils % (A) 0 %; HCT 49.1 % (39.0-53.0); Lymphocytes # (A) 0.9 k/uL (1.0-4.8); Lymphocytes % (A) 8 %; MCH 28.4 pg (25.0-35.0); MCHC 33.5 g/dL (31.0-37.0); Mean Platelet Volume 8.1; Monocytes # (A) 0.4 k/uL (0-1.0); Monocytes % (A) 4 %; Neutrophils # (A) 9.2 k/uL (1.3-7.7); Neutrophils % (A) 87 %; Platelet Count 290 k/uL (150-450); RBC 5.78 m/uL (4.30-5.90); RDW 15.2 % (11.5-15.5); WBC 10.7 k/uL (3.8-10.6)
[2022-06-10 14:55] LABS: HGB 16.4 gm/dL (13.0-17.5)
[2022-06-10] MEDS ORDERED: NALOXONE 0.4 MG/ML 1 ML VIAL IV PRN (17:03)
[2022-06-10] MEDS ORDERED: ONDANSETRON 4 MG/2 ML VIAL IVP PRN (17:03)
[2022-06-10] MEDS ORDERED: LORazepam 2 MG/ML INJ IV PRN (17:05)
[2022-06-10] MEDS: SODIUM CHLORIDE 0.9% 1,000 ML IV SCH (18:08)
[2022-06-10] MEDS: HYDROmorphone 1 MG/ML 1 ML SYRINGE IVP PRN ×2 (18:08→21:17)
--- NOTE | 2022-06-10 20:04 | XR ---
EXAMINATION TYPE: XR KUB portable DATE OF EXAM: 06/10/2022 7:57 PM INDICATION: Patient age:Male; 67 years old; Reason for study: weak; COMPARISON: 10/09/2016 TECHNIQUE: One radiographic view of the abdomen was obtained. FINDINGS: The bowel gas pattern is nonspecific without dilated loops of small or large bowel. There i s no evidence for organomegaly or pneumoperitoneum. No abnormal calcifications are present. Fecal ma terial and gas are demonstrated throughout the colon and rectum. Fixation hardware in the lower spin e appears intact. Right upper quadrant and left upper quadrant surgical clips. IMPRESSION: Nonspecific bowel gas pattern without radiographic evidence for acute process.
--- NOTE | 2022-06-10 20:06 | XR ---
EXAMINATION TYPE: XR chest 1V portable DATE OF EXAM: 06/10/2022 7:57 PM COMPARISON: Chest radiographs from 12/22/2021 TECHNIQUE: XR chest 1V portable Frontal view of the chest. CLINICAL INDICATION:Male, 67 years old with history of weak; FINDINGS: Lungs/Pleura: There is no evidence of pleural effusion, focal consolidation, or pneumothorax. Pulmonary vascularity: Unremarkable. Heart/mediastinum: Cardiomediastinal silhouette is enlarged and stable. Musculoskeletal: No acute osseous pathology. IMPRESSION: No acute cardiopulmonary disease/process.
[2022-06-11 00:17] LABS: Appearance,Urine Cloudy (Clear); Bacteria,Urine Rare /hpf; Bilirubin,Urine Negative (Negative); Blood,Urine Negative (Negative); Color,Urine Yellow; Glucose,Urine (UA) Negative (Negative); Hyaline Casts,Urine 16 /lpf (0-2); Ketones,Urine Negative (Negative); Leukocyte Esterase,Urine Negative (Negative); Mucus,Urine Few /hpf; Nitrite,Urine Negative (Negative); PH, Urine 5.5 (5.0-8.0); Protein,Urine 1+ (Negative); RBC,Urine <1 /hpf (0-5); Specific Gravity,Urine 1.025 (1.001-1.035); Squamous Epithelial Cell,Urine 1 /hpf (0-4); Urobilinogen,Urine <2.0 mg/dL (<2.0); WBC,Urine 4 /hpf (0-5)
[2022-06-11 00:19] LABS: Amphetamine Screen,Urine Not Detected (NotDetected); Barbiturate Screen,Urine Not Detected (NotDetected); Benzodiazepines Screen,Urine Detected (NotDetected); Cocaine Screen,Urine Not Detected (NotDetected); Methadone Screen, Urine Not Detected (NotDetected); Opiate Screen,Urine Detected (NotDetected); Oxycodone Screen, Urine Not Detected (NotDetected); Phencyclidine Screen,Urine Not Detected (NotDetected); Tricyclic Antidepressant,Urine Not Detected (NotDetected); Urn Cannabinoid Scrn Detected (NotDetected)
[2022-06-11] MEDS: HYDROmorphone 1 MG/ML 1 ML SYRINGE IVP PRN ×5 (00:21→12:33)
[2022-06-11] MEDS: SODIUM CHLORIDE 0.9% 1,000 ML IV SCH ×2 (07:54→09:25)
[2022-06-11] MEDS ORDERED: ALBUTEROL NEBULIZED 2.5 MG/3 ML INHALATION PRN (08:24)
[2022-06-11] MEDS ORDERED: NON FORMULARY DRUG (Evolocumab [Repatha Sureclick] 140 MG/ML Each) SQ SCH (08:30)
[2022-06-11] MEDS ORDERED: ISOSORBIDE MONONITRATE ER 30 MG TAB.ER.24H PO SCH (09:00)
[2022-06-11] MEDS ORDERED: cloNIDine HCL 0.1 MG TAB PO SCH (09:00)
[2022-06-11] MEDS ORDERED: TICAGRELOR 90 MG TAB PO SCH (09:00)
[2022-06-11] MEDS ORDERED: ASPIRIN 81 MG PO SCH (09:00)
[2022-06-11] MEDS ORDERED: PREGABALIN 75 MG CAP PO SCH (09:00)
[2022-06-11] MEDS ORDERED: ESCITALOPRAM 20 MG TAB PO SCH (09:00)
[2022-06-11] MEDS ORDERED: amLODIPine 10 MG TAB PO SCH (09:00)
[2022-06-11 11:05] LABS: Basophils # (A) 0.05 X 10*3/uL (0.00-0.10); Basophils % (A) 0.7 %; Eosinophils % (A) 2.8 %; HCT 41.7 % (39.6-50.0); HGB 13.3 g/dL (13.0-17.0); Immature Grans, Automated 0.3 %; Lymphocytes # (A) 2.57 X 10*3/uL (0.90-5.00); Lymphocytes % (A) 35.9 %; MCH 28.6 pg (27.0-32.0); MCHC 31.9 g/dL (32.0-37.0); MCV 89.7 fL (80.0-97.0); Mean Platelet Volume 10.7 fL (9.5-12.2); Monocytes # (A) 0.74 X 10*3/uL (0.20-1.00); Monocytes % (A) 10.3 %; NRBC Per 100 WBC 0 /100 WBCS (0.0-0.0); Neutrophils # (A) 3.58 X 10*3/uL (1.80-7.70); Platelet Count 228 X 10*3/uL (140-440); RBC 4.65 X 10*6/uL (4.40-5.60); RDW 15.4 % (11.5-14.5); WBC 7.16 X 10*3/uL (4.50-10.00)
[2022-06-11 11:45] VITALS: BP 128/78; PULSE 72; RESP 20; TEMP 98
[2022-06-11 12:19] LABS: African American GFR (CKD) 77.8 (60.0-200.0); Albumin 4.6 g/dL (3.8-4.9); Albumin/Globulin Ratio 1.97 (1.60-3.17); Anion Gap 15.1 mmol/L (10.00-18.00); BUN/Creat Ratio 21.96 Ratio (12.00-20.00); Blood Urea Nitrogen 24.6 mg/dL (9.0-27.0); Calcium 9.8 mg/dL (8.7-10.3); Carbon Dioxide 18.9 mmol/L (20.0-27.5); Globulin 2.3 g/dL (1.6-3.3); Non-African American GFR(CKD) 67.1 (60.0-200.0); Potassium 4.1 mmol/L (3.5-5.5); Total Bilirubin 0.8 mg/dL (0.30-1.20); Total Protein 6.9 g/dL (6.2-8.2)
[2022-06-11] MEDS ORDERED: PANTOPRAZOLE 40 MG TABLET PO SCH (17:30)
[2022-06-12] MEDS ORDERED: LEVOTHYROXINE 75 MCG TAB PO SCH (06:30)
--- NOTE | 2022-06-13 18:38 | P.HPIM ---
History of Present Illness H&P Date: 06/10/22 Chief Complaint: JOSIE. HISTORY OF PRESENT ILLNESS: This is a 67-year-old male with a previous medical history significant for hypertension and hypertensive cardiovascular disease, hyperlipidemia, chronic obstructive pulmonary disease, CAD, hypothyroidism, osteoarthritis status post a recent right total knee arthroplasty, GERD with esophagitis, major depressive disorder and anxiety disorder. Patient had recent hospitalization in April of this year which time he presented with acute kidney injury and seen by nephrology, ultrasound showed no evidence of hydronephrosis. Patient was stabilized and discharged, apparently patient slid and fell at home 3 weeks ago and ended up getting his quad tendon torn and he was sent [facility] with and had intraparenchymal bleed that was resolved and patient wa trying to get off his pain medications and he developed to have significant abdominal pain with nausea, vomiting and was brought to the ER with elevated lactic acid and he was started on IVF and was placed on IV pain medications, and he was admitted to the hospital for IV hydration and discussed with patient the results of his urine drug screen that was positive for THC, Opioid and BZD which I do not prescribe for him, so he was in full understanding and he will come off all THC and prescription medications that suppress his [employer]. REVIEW OF SYSTEMS: Constitutional: No documented fever, no chills, no night sweats. No weight change. positive for weakness, fatigue or lethargy. No daytime sleepiness. HEENT: No headache. No blurred vision or double vision, no loss of vision. No loss of Hearing, no ringing in the ears, no dizziness. No nasal drainage or congestion. No epistaxis. No sore throat. Lungs: No shortness of breath, no cough, no sputum production. No wheezing. Reports dyspnea with activity. Cardiovascular: No chest pain, no lower extremity edema. No palpitations. No paroxysmal nocturnal dyspnea. No orthopnea. No lightheadedness or dizziness. No syncopal episodes. Abdominal: Reports abdominal pain. nausea, vomiting. and diarrhea. No constipation. No bloody or tarry stools reports loss of appetite. Genitourinary: No dysuria, increased frequency, urgency. No urinary retention. Musculoskeletal: No myalgias. positive for muscle weakness and leg cramps , no gait dysfunction, no frequent falls. No back pain. No neck pain. Integumentary: No wounds, no lesions. No rash or pruritus. No unusual bruising. No change in hair or nails. Neurologic: No aphasia. No facial droop. No change in mentation. No head injury. No headache. No paralysis. No paresthesia. Psychiatric: positive for depression. No anxiety. No mood swings. Endocrine: No abnormal blood sugars. No weight change. PAST MEDICAL HISTORY: Hypertension and hypertensive cardiovascular disease. Hyperlipidemia. Abdominal aortic thrombus COPD. CAD of [place] artery. Hypothyroidism. Osteoarthritis. GERD with esophagitis. Chronic low back pain status post PE LDF of L3 L5. PAST SURGICAL HISTORY: Left heart catheterization with PCI of the LCx 10/16/2021 Right knee arthroscopic surgery. Right total knee arthroplasty March 2022. P LDF L3 L5 with Tarlov cyst 1999 Hiatal hernia repair 1989. Colonoscopy 2019. Laparoscopic cholecystectomy 1989. Right elbow repair. Left heart catheterization with PCI of the proximal OM1 06/18/2019. Left heart catheterization with PCI of the RCA 11/17/2013. Left heart catheterization with PCI of the LAD 07/03/2007. Left tib-fib Fed ORIF. Left hand surgery. Right Qaudriceps tendon repair SOCIAL HISTORY: Patient used to smoke about pack every day at the age of 17 and he quit at the age of 27, he smokes marijuana, he drinks alcohol 1-2 drinks at a time no more than 4 drinks a week, he denies any other drug use or abuse. FAMILY HISTORY: Father at age of 80 from motor vehicle accident and had a history of dementia, mother at age of 87 with hypertension and atrial for relation, patient has one brother okay and had 4 sisters one with thyroid disease one with skin cancer and the other 2 are okay patient has 2 sons alive and well and one daughter alive and well as well. PHYSICAL EXAMINATION: General: 67-year-old male laying down in bed in no distress. HEENT: Head is atraumatic, normocephalic, pupils were equal round reactive to light and recommendation, extraocular muscle movement were intact, sclera nonicteric, conjunctivae were pale, mucous membranes of the mouth are somewhat dry. Neck: Supple, no JVP, normal carotid upstroke bilaterally, no lymphadenopathy. Chest: Decreased breath sounds at the bases, few rhonchi, minimal expiratory wheezes, no chest wall tenderness, no intercostal retractions. Heart: First heart sound is normal, second heart sound is normal there is LUIS 2/6 located at the left sternal border. Abdomen: Soft, nontender, nondistended, positive bowel sounds. Extremities: There is no edema no calf tenderness DP +2 bilaterally. Neurologic examination: Patient is awake alert and oriented X 3, cranial nerves II-12 appear grossly intact, muscle power were 5 out of 5 in upper extremities and 5 out of 5 in bilateral lower extremities, deep tendon reflexes normal bilaterally. ASSESSMENT AND PLAN: 1. Acute kidney injury due to acute tubular necrosis due to gastrointestinal fluid loss and. Patient will be started on IV fluid in the form of normal saline at 100 cc/h and we will repeat CMP and Lactic acid in Am and if back to normal can be discharged home in AM 2. Recent ICB and right Qud tendon repair 3 weeks ago . resolved. 3. Coronary artery disease status post multiple PCI's. Continue patient on Proventil 90 mg orally twice every day, continue patient on aspirin 81 mg once every day, continue patient on Brilinta 90 mg po bid continue patient on isosorbide mononitrate 30 mg once every day, continue Repatha 140 mg subcu venously every 2 weeks, monitor lipid panel, keep LDL 5570. 4. Hypertension and hypertensive cardiovascular disease. Continue patient on amlodipine 5 mg orally twice every day, continue patient on clonidine 0.1 mg orally twice every day, monitor the patient blood pressure very closely. 5. Mixed hyperlipidemia. Patient is intolerant to statins. Continue with Rep atha 140 mg subcutaneously every 2 weeks keep LDL less than 50 6. Hypothyroidism. Continue Synthroid 75 g orally once every day. 7. GERD with esophagitis and hiatal hernia. Continue patient on pantoprazole 40 mg orally once every day. 8. Anxiety and depressive disorder. Continue patient on Escitalopram 20 mg orally once every day . 9. DVT prophylaxis. Continue patient on Lovenox 30 mg subcutaneously every 24 hours. 10. GI prophylaxis. Continue PPI. 11. recent right total knee arthroplasty. better 12. Admit to inpatient. Estimated length of stay 2 midnights. 13. Patient is full code. Past Medical History Past Medical History: Atrial Fibrillation, Coronary Artery Disease (CAD), Chest Pain / Angina, Deep Vein Thrombosis (DVT), GERD/Reflux, GI Bleed, Hyperlipidemia, Hypertension, Myocardial Infarction (CO), Musculoskeletal Disorder, Osteoarthritis (OA), Pneumonia, Renal Disease, Syncope, Thyroid Disorder Additional Past Medical History / Comment(s): Paroxysmal afib, fell 12 weeks ago and fractured stenum/ribs, episodes of acute renal failure associated with dehydration, ckd stage IV, past melana stools, diverticulitis, IBS, return of hiatal hernia, bronchitis, hypothyroid, chronic low back pain with bilateral sciatica, lumbar DDD, past migraines, DJD, numbness/tingling bilateral legs/feet , 4 DVTs L leg surgically removed. covid + July 2021 Last Myocardial Infarction Date:: 10/15/21 History of Any Multi-Drug Resistant Organisms: None Reported Past Surgical History: Back Surgery, Cholecystectomy, Heart Catheterization, Heart Catheterization With Stent, Hernia Repair, Orthopedic Surgery Additional Past Surgical History / Comment(s): Back fusions L3-L5, ORIF L ankle, L hand fracture with surgery, R knee arthroscopy x2, R elbow tendon release, R shoulder arthroscopy, L shoulder arthroscopy, lumbar spine cyst removed, pain clinic procedures, taylor fundoplication, EGD, colonoscopy, 2019 arteriogram/thrombus extraction at [facility]. PTCA w/ 3 stents now. rt knee replacemnt Past Anesthesia/Blood Transfusion Reactions: No Reported Reaction Date of Last Stent Placement:: 10/15/21 Past Psychological History: No Psychological Hx Reported, Depression Additional Psychological History / Comment(s): Pt resides with his spouse. HE is independent. Smoking Status: Former smoker Past Alcohol Use History: Occasional Additional Past Alcohol Use History / Comment(s): Smoked from 1971 to 1983 SMOKED 1PPD. Pt states he drinks less than 14 drinks per week Past Drug Use History: Marijuana Additional Drug Use History / Comment(s): MEDICAL marijuana - daily. - Past Family History Mother Family Medical History: Thyroid Disorder Additional Family Medical History / Comment(s): Mother is living. Father Family Medical History: Coronary Artery Disease (CAD), Diabetes Mellitus Additional Family Medical History / Comment(s): Father had CABG. He at the age of 84 yrs in a MVA. Sister(s) Family Medical History: Cancer Additional Family Medical History / Comment(s): Sister #1 skin cancer, sister #2 thyroid cancer. Medications and Allergies Home Medications Medication Instructions Recorded Confirmed Type Levothyroxine Sodium [Synthroid] 75 mcg PO DAILY 05/04/16 06/10/22 History Escitalopram [Lexapro] 20 mg PO DAILY 12/16/16 06/10/22 History Nitroglycerin Sl Tabs [Nitrostat] 0.4 mg SL Q5M PRN 07/23/21 06/10/22 History Aspirin 81 mg PO DAILY #30 tab 10/17/21 06/10/22 Rx Ticagrelor [Brilinta] 90 mg PO BID #60 tab 10/17/21 06/10/22 Rx Pantoprazole [Protonix] 40 mg PO AC-BID #60 tab 10/22/21 06/10/22 Rx cloNIDine HCL [Catapres] 0.1 mg PO BID tab 10/22/21 06/10/22 Rx Evolocumab [Repatha Sureclick] 140 mg SQ Q14D 04/20/22 06/10/22 History Isosorbide Mononitrate ER [Imdur] 30 mg PO DAILY 04/20/22 06/10/22 History Albuterol Inhaler [Ventolin Hfa 1 - 2 puff INHALATION RT-Q6H PRN 04/21/2206/10 History Inhaler] Dalvance See Taper IV TH 06/10/22 06/10/22 History Pregabalin [Lyrica] 75 mg PO BID 06/10/22 06/10/22 History amLODIPine [Norvasc] 10 mg PO DAILY 06/10/22 06/10/22 History tiZANidine [Zanaflex] 2 mg PO Q8HR PRN 06/10/22 06/10/22 History traMADol HCl [Ultram] 50 mg PO Q6H PRN 06/10/22 06/10/22 History Allergies Allergy/AdvReac Type Severity Reaction Status Date / Time rivaroxaban [From Xarelto] AdvReac Severe Nausea & Verified 06/10/22 16:19 Vomiting & Diarrhea paroxetine HCl [From Paxil] AdvReac Unknown Nausea & Verified 06/10/22 16:19 Vomiting & Diarrhea apixaban [From Eliquis] AdvReac Nausea & Verified 06/10/22 16:19 Vomiting & Diarrhea atorvastatin [From Lipitor] AdvReac Nausea & Verified 06/10/22 16:19 Vomiting & Diarrhea Beta-Blockers AdvReac Nausea & Verified 06/10/22 16:19 (Beta-Adrenergic Bloc Vomiting & Diarrhea gabapentin AdvReac Nausea & Verified 06/10/22 16:19 Vomiting & Diarrhea Nupczgm-QVS-IdI Reductase AdvReac Nausea & Verified 06/10/22 16:19 Inhibitor Vomiting & Diarrhea warfarin AdvReac Nausea & Verified 06/10/22 16:19 Vomiting & Diarrhea Physical Exam Vitals: Vital Signs Temp Pulse Pulse Resp BP BP Pulse Ox 06/11/22 08:00 97.7 F 69 18 133/75 100 06/11/22 02:00 98.5 F 74 16 108/67 97 06/11/22 00:04 98.5 F 84 16 117/84 97 06/10/22 22:14 92 16 118/63 97 06/10/22 21:20 79 16 138/83 98 06/10/22 18:10 86 18 148/92 96 06/10/22 17:10 89 18 155/92 99 06/10/22 15:08 85 18 126/87 96 06/10/22 14:11 87 18 144/88 97 06/10/22 12:41 98.4 F 112 H 18 163/93 98 Intake and Output 06/10/22 06/11/22 06/11/22 22:59 06:59 14:59 Intake Total 590 Balance 590 Intake: Oral 590 Other: # Voids 2 Weight 102.058 kg Results CBC & Chem 7: 06/11/22 06:18 06/11/22 06:18 Labs: Abnormal Lab Results - Last 24 Hours (Table) 06/10/22 06/10/22 06/10/22 Range/Units 13:47 13:47 13:47 WBC 10.7 H (3.8-10.6) k/uL Neutrophils # 9.2 H (1.3-7.7) k/uL Lymphocytes # 0.9 L (1.0-4.8) k/uL Carbon Dioxide 15 L (22-30) mmol/L BUN 21 H (9-20) mg/dL Creatinine 1.79 H (0.66-1.25) mg/dL Glucose 161 H (74-99) mg/dL Plasma Lactic Acid Chacorta 5.1 H* (0.7-2.0) mmol/L Calcium 11.3 H (8.4-10.2) mg/dL Alkaline Phosphatase 147 H (38-126) U/L Total Protein 9.5 H (6.3-8.2) g/dL Albumin 5.7 H (3.5-5.0) g/dL Urine Protein (Negative) Urine Bacteria (None) /hpf Hyaline Casts (0-2) /lpf Urine Mucus (None) /hpf Urine Opiates Screen (NotDetected) U Benzodiazepines Scrn (NotDetected) U Marijuana (THC) Screen (NotDetected) 06/10/22 Range/Units 23:59 WBC (3.8-10.6) k/uL Neutrophils # (1.3-7.7) k/uL Lymphocytes # (1.0-4.8) k/uL Carbon Dioxide (22-30) mmol/L BUN (9-20) mg/dL Creatinine (0.66-1.25) mg/dL Glucose (74-99) mg/dL Plasma Lactic Acid Chacorta (0.7-2.0) mmol/L Calcium (8.4-10.2) mg/dL Alkaline Phosphatase (38-126) U/L Total Protein (6.3-8.2) g/dL Albumin (3.5-5.0) g/dL Urine Protein 1+ H (Negative) Urine Bacteria Rare H (None) /hpf Hyaline Casts 16 H (0-2) /lpf Urine Mucus Few H (None) /hpf Urine Opiates Screen Detected H (NotDetected) U Benzodiazepines Scrn Detected H (NotDetected) U Marijuana (THC) Screen Detected H (NotDetected)
--- NOTE | 2022-06-13 18:42 | P.DS ---
Providers Date of admission: 06/10/22 17:05 Expected date of discharge: 06/11/22 Attending physician: Sammie Mercedes Primary care physician: Sammie Mercedes Hospital Course: HISTORY OF PRESENT ILLNESS: This is a 67-year-old male with a previous medical history significant for hypertension and hypertensive cardiovascular disease, hyperlipidemia, chronic obstructive pulmonary disease, CAD, hypothyroidism, osteoarthritis status post a recent right total knee arthroplasty, GERD with esophagitis, major depressive disorder and anxiety disorder. Patient had recent hospitalization in April of this year which time he presented with acute kidney injury and seen by nephrology, ultrasound showed no evidence of hydronephrosis. Patient was stabilized and discharged, apparently patient slid and fell at home 3 weeks ago and ended up getting his quad tendon torn and he was sent [facility] with and had intraparenchymal bleed that was resolved and patient wa trying to get off his pain medications and he developed to have significant abdominal pain with nausea, vomiting and was brought to the ER with elevated lactic acid and he was started on IVF and was placed on IV pain medications, and he was admitted to the hospital for IV hydration and discussed with patient the results of his urine drug screen that was positive for THC, Opioid and BZD which I do not prescribe for him, so he was in full understanding and he will come off all THC and prescription medications that suppress his [employer]. 5/5: Patient is doing much better and he is asking for food , labs are back to baseline we will discontinue IVF and we will follow up with him as outpatient. Discharge diagnoses: 1. Acute kidney injury due to acute tubular necrosis due to gastrointestinal fluid loss and. 2. Recent ICB and right Qud tendon repair 3 weeks ago . 3. Coronary artery disease status post multiple PCI's. 4. Hypertension and hypertensive cardiovascular disease. 5. Mixed hyperlipidemia. Patient is intolerant to statins. 6. Hypothyroidism. 7. GERD with esophagitis and hiatal hernia. 8. Anxiety and depressive disorder Patient Condition at Discharge: Good Plan - Discharge Summary Discharge Rx Participant: Yes New Discharge Prescriptions: Continue Levothyroxine Sodium [Synthroid] 75 mcg PO DAILY Escitalopram [Lexapro] 20 mg PO DAILY Ticagrelor [Brilinta] 90 mg PO BID #60 tab Pantoprazole [Protonix] 40 mg PO AC-BID #60 tab cloNIDine HCL [Catapres] 0.1 mg PO BID tab Isosorbide Mononitrate ER [Imdur] 30 mg PO DAILY Pregabalin [Lyrica] 75 mg PO BID traMADol HCl [Ultram] 50 mg PO Q6H PRN PRN Reason: Pain Dalvance See Taper IV TH Nitroglycerin Sl Tabs [Nitrostat] 0.4 mg SL Q5M PRN PRN Reason: Chest Pain Aspirin 81 mg PO DAILY #30 tab Evolocumab [Repatha Sureclick] 140 mg SQ Q14D Albuterol Inhaler [Ventolin Hfa Inhaler] 1 - 2 puff INHALATION RT-Q6H PRN PRN Reason: Shortness Of Breath Or Wheezing tiZANidine [Zanaflex] 2 mg PO Q8HR PRN PRN Reason: Muscle Spasm amLODIPine [Norvasc] 10 mg PO DAILY Discharge Medication List Levothyroxine Sodium [Synthroid] 75 mcg PO DAILY 05/04/16 [History] Escitalopram [Lexapro] 20 mg PO DAILY 12/16/16 [History] Nitroglycerin Sl Tabs [Nitrostat] 0.4 mg SL Q5M PRN 07/23/21 [History] Aspirin 81 mg PO DAILY #30 tab 10/17/21 [Rx] Ticagrelor [Brilinta] 90 mg PO BID #60 tab 10/17/21 [Rx] Pantoprazole [Protonix] 40 mg PO AC-BID #60 tab 10/22/21 [Rx] cloNIDine HCL [Catapres] 0.1 mg PO BID tab 10/22/21 [Rx] Evolocumab [Repatha Sureclick] 140 mg SQ Q14D 04/20/22 [History] Isosorbide Mononitrate ER [Imdur] 30 mg PO DAILY 04/20/22 [History] Albuterol Inhaler [Ventolin Hfa Inhaler] 1 - 2 puff INHALATION RT-Q6H PRN 04/21/22 [History] Dalvance See Taper IV TH 06/10/22 [History] Pregabalin [Lyrica] 75 mg PO BID 06/10/22 [History] amLODIPine [Norvasc] 10 mg PO DAILY 06/10/22 [History] tiZANidine [Zanaflex] 2 mg PO Q8HR PRN 06/10/22 [History] traMADol HCl [Ultram] 50 mg PO Q6H PRN 06/10/22 [History] Follow up Appointment(s)/Referral(s): Sammie Mercedes MD [Primary Care Provider] - 1-2 days (please call for appointment follow-up.) Patient Instructions/Handouts: Weakness (DC) Discharge Disposition: HOME SELF-CARE
== END 2022-06-11 14:15 | disposition home or self-care (01) ==
LOC: EC 12:33 → 4SSUR 17:05 → 5NMEDONC 20:40
PROVIDERS: ADMIT Internal Medicine; ATTEND Internal Medicine
DX: N17.0 Acute kidney failure with tubular necrosis (principal); E87.20 Acidosis, unspecified; E86.0 Dehydration; K58.0 Irritable bowel syndrome with diarrhea; I13.10 Hypertensive heart and chronic kidney disease without heart failure, with stage 1 through stage 4 chronic kidney disease, or unspecified chronic kidney disease; N18.4 Chronic kidney disease, stage 4 (severe); I25.10 Atherosclerotic heart disease of native coronary artery without angina pectoris; I48.0 Paroxysmal atrial fibrillation; J44.9 Chronic obstructive pulmonary disease, unspecified; E78.2 Mixed hyperlipidemia; E03.9 Hypothyroidism, unspecified; K21.00 Gastro-esophageal reflux disease with esophagitis, without bleeding; I25.2 Old myocardial infarction; M19.90 Unspecified osteoarthritis, unspecified site; G89.29 Other chronic pain; M54.42 Lumbago with sciatica, left side; M54.41 Lumbago with sciatica, right side; G43.909 Migraine, unspecified, not intractable, without status migrainosus; R26.2 Difficulty in walking, not elsewhere classified; K44.9 Diaphragmatic hernia without obstruction or gangrene; R82.5 Elevated urine levels of drugs, medicaments and biological substances; F32.9 Major depressive disorder, single episode, unspecified; F41.9 Anxiety disorder, unspecified; Z79.890 Hormone replacement therapy; Z79.02 Long term (current) use of antithrombotics/antiplatelets; Z79.82 Long term (current) use of aspirin; Z79.899 Other long term (current) drug therapy; Z96.651 Presence of right artificial knee joint; Z87.891 Personal history of nicotine dependence; Z95.5 Presence of coronary angioplasty implant and graft; Z88.8 Allergy status to other drugs, medicaments and biological substances; Z91.81 History of falling; Z87.81 Personal history of (healed) traumatic fracture; Z86.718 Personal history of other venous thrombosis and embolism; Z86.16 Personal history of COVID-19; Z86.73 Personal history of transient ischemic attack (TIA), and cerebral infarction without residual deficits; Z90.49 Acquired absence of other specified parts of digestive tract; Z98.1 Arthrodesis status; Z98.890 Other specified postprocedural states; Z83.3 Family history of diabetes mellitus; Z82.49 Family history of ischemic heart disease and other diseases of the circulatory system; Z83.49 Family history of other endocrine, nutritional and metabolic diseases; Z80.8 Family history of malignant neoplasm of other organs or systems; Z82.0 Family history of epilepsy and other diseases of the nervous system
CPT/HCPCS: 96376 ×2; 96361 ×2; 96374; 96375; 99291; 36415; 93005; 80053 ×2; 83605; 83735; 84100; 84484; 85025 ×2; 85610; 85730; 81001; 80306; 71045; 74018; G0378 ×3; J2060; J2405; J1170 ×2

== ENCOUNTER → 2022-06-28 | Outpatient (CLI) | payer MEDICARE ==
--- NOTE | 2022-06-28 08:46 | CT ---
EXAMINATION TYPE: CT brain wo con DATE OF EXAM: 06/28/2022 COMPARISON: 05/03/2022 HISTORY: Follow up for subdural hematoma. CT DLP: [address] of the brain was performed. The ventricles, basal cisterns and sulci overlying the cerebral convexities demonstrate mild enlargem ent. There is no evidence for intracranial hemorrhage or sulcal effacement. There is decreased attenuation about the periventricular white matter and deep white matter of both c erebral hemispheres, compatible with chronic small vessel ischemia. Differential diagnosis does inclu de demyelination. No mass effects are seen.No midline shift. Osseous calvarium is intact. If symptoms persist consider MRI. IMPRESSION: 1. Age related atrophic and chronic small vessel ischemic change without acute intracranial process s een at this time.
== END | disposition home or self-care (01) ==
LOC: RADCTMAIN 08:06
PROVIDERS: ATTEND Internal Medicine
DX: S06.5XAA Traumatic subdural hemorrhage with loss of consciousness status unknown, initial encounter (principal); G31.9 Degenerative disease of nervous system, unspecified; X58.XXXA Exposure to other specified factors, initial encounter
CPT/HCPCS: 70450

== ENCOUNTER 2022-07-12 12:44 | Emergency (ER) | payer MEDICARE ==
[2022-07-12] MEDS ORDERED: LIDOCAINE 1%-EPI 1:100,000 20 ML VIAL SQ STA (13:18)
[2022-07-12] MEDS ORDERED: LIDOCAINE 2%-EPI 1:100,000 20 ML VIAL SQ STA (13:23)
--- NOTE | 2022-07-12 13:42 | ED ---
General Adult HPI - General Source: patient Mode of arrival: wheelchair Limitations: no limitations <Dylon Lee - Last Filed: 07/12/22 16:28> <Joan Coffey - Last Filed: 07/13/22 00:41> - General Chief complaint: GI Bleed Stated complaint: Stool Black, Nausea Time Seen by Provider: 07/12/22 13:17 - History of Present Illness Initial comments: Dictation was produced using [employer] dictation software. please excuse any grammatical, word or spelling errors. Chief Complaint: 67-year-old male presents emergency Department with dark stools History of Present Illness: Patient 59-year-old male he has past medical history of A. fib. He is on 2 Elías medications. Patient states that for the last 2-3 days she's been having black stools with yellow discharge. Denies any fever. No nausea or vomiting. Denies any fever or chills or night sweats. Patient does not take any anticoagulation medications. The ROS documented in this emergency department record has been reviewed and confirmed by me. Those systems with pertinent positive or negative responses have been documented in the HPI. All other systems are other negative and/or noncontributory. (Dylon Lee) - Related Data Home Medications Medication Instructions Recorded Confirmed RX: Levothyroxine Sodium 75 mcg PO DAILY 05/04/16 07/12/22 [Synthroid] RX: Escitalopram [Lexapro] 20 mg PO DAILY 12/16/16 07/12/22 RX: Nitroglycerin Sl Tabs 0.4 mg SL Q5M PRN 07/23/21 07/12/22 [Nitrostat] RX: Evolocumab [Repatha Sureclick] 140 mg SQ Q14D 04/20/22 07/12/22 RX: Isosorbide Mononitrate ER 30 mg PO DAILY 04/20/22 07/12/22 [Imdur] RX: Pregabalin [Lyrica] 75 mg PO BID 06/10/22 07/12/22 RX: amLODIPine [Norvasc] 10 mg PO DAILY 06/10/22 07/12/22 Previous Rx's Medication Instructions Recorded RX: Aspirin 81 mg PO DAILY #30 tab 10/17/21 RX: Ticagrelor [Brilinta] 90 mg PO BID #60 tab 10/17/21 RX: Pantoprazole [Protonix] 40 mg PO AC-BID #60 tab 10/22/21 RX: cloNIDine HCL [Catapres] 0.1 mg PO BID tab 10/22/21 Allergies Allergy/AdvReac Type Severity Reaction Status Date / Time rivaroxaban [From Xarelto] AdvReac Severe Nausea & Verified 07/12/22 15:42 Vomiting & Diarrhea paroxetine HCl [From Paxil] AdvReac Unknown Nausea & Verified 07/12/22 15:42 Vomiting & Diarrhea apixaban [From Eliquis] AdvReac Nausea & Verified 07/12/22 15:42 Vomiting & Diarrhea atorvastatin [From Lipitor] AdvReac Nausea & Verified 07/12/22 15:42 Vomiting & Diarrhea Beta-Blockers AdvReac Nausea & Verified 07/12/22 15:42 (Beta-Adrenergic Bloc Vomiting & Diarrhea gabapentin AdvReac Nausea & Verified 07/12/22 15:42 Vomiting & Diarrhea Fcjhrco-BLS-EdQ Reductase AdvReac Nausea & Verified 07/12/22 15:42 Inhibitor Vomiting & Diarrhea warfarin AdvReac Nausea & Verified 07/12/22 15:42 Vomiting & Diarrhea Review of Systems ROS Other: All systems not noted in ROS Statement are negative. <Dylon Lee - Last Filed: 07/12/22 16:28> ROS Other: All systems not noted in ROS Statement are negative. <Joan Coffey - Last Filed: 07/13/22 00:41> ROS Statement: Those systems with pertinent positive or pertinent negative responses have been documented in the HPI. Past Medical History Past Medical History: Atrial Fibrillation, Coronary Artery Disease (CAD), Chest Pain / Angina, Deep Vein Thrombosis (DVT), GERD/Reflux, GI Bleed, Hyperlipidemia, Hypertension, Myocardial Infarction (AK), Musculoskeletal Disorder, Osteoarthritis (OA), Pneumonia, Renal Disease, Syncope, Thyroid Disorder Additional Past Medical History / Comment(s): Paroxysmal afib, fell 12 weeks ago and fractured stenum/ribs, episodes of acute renal failure associated with dehydration, ckd stage IV, past melana stools, diverticulitis, IBS, return of hiatal hernia, bronchitis, hypothyroid, chronic low back pain with bilateral sciatica, lumbar DDD, past migraines, DJD, numbness/tingling bilateral legs/feet , 4 DVTs L leg surgically removed. covid + July 2021 Last Myocardial Infarction Date:: 10/15/21 History of Any Multi-Drug Resistant Organisms: None Reported Past Surgical History: Back Surgery, Cholecystectomy, Heart Catheterization, Heart Catheterization With Stent, Hernia Repair, Orthopedic Surgery Additional Past Surgical History / Comment(s): Back fusions L3-L5, ORIF L ankle, L hand fracture with surgery, R knee arthroscopy x2, R elbow tendon release, R shoulder arthroscopy, L shoulder arthroscopy, lumbar spine cyst removed, pain clinic procedures, tayolr fundoplication, EGD, colonoscopy, 2019 arteriogram/thrombus extraction at [facility]. PTCA w/ 3 stents now. rt knee replacemnt Past Anesthesia/Blood Transfusion Reactions: No Reported Reaction Date of Last Stent Placement:: 10/15/21 Past Psychological History: No Psychological Hx Reported, Depression Smoking Status: Former smoker Past Alcohol Use History: Occasional Past Drug Use History: Marijuana - Past Family History Mother Family Medical History: Thyroid Disorder Additional Family Medical History / Comment(s): Mother is living. Father Family Medical History: Coronary Artery Disease (CAD), Diabetes Mellitus Additional Family Medical History / Comment(s): Father had CABG. He at the age of 84 yrs in a MVA. Sister(s) Family Medical History: Cancer Additional Family Medical History / Comment(s): Sister #1 skin cancer, sister #2 thyroid cancer. <Dylon Lee - Last Filed: 07/12/22 16:28> General Exam Limitations: no limitations <Dylon Lee - Last Filed: 07/12/22 16:28> - General Exam Comments Initial Comments: PHYSICAL EXAM: General Impression: Alert and oriented x3, not in acute distress HEENT: Normocephalic atraumatic, extra-ocular movements intact, pupils equal and reactive to light bilaterally, mucous membranes moist. Cardiovascular: Heart regular rate and rhythm Chest: Able to complete full sentences, no retractions, no tachypnea Abdomen: abdomen soft, reported tenderness to the suprapubic and lower quadrant area, non-distended, no organomegaly Musculoskeletal: Pulses present and equal in all extremities, no peripheral edema Motor: no focal deficits noted Neurological: CN II-XII grossly intact, no focal motor or sensory deficits noted Skin: Intact with no visualized rashes Psych: Normal affect and mood (Dylon Lee) Course <Dylon Lee - Last Filed: 07/12/22 16:28> Vital Signs 07/12/22 07/12/22 07/12/22 12:46 13:49 15:00 Temperature 97.5 F L Pulse Rate 115 H 98 74 Respiratory 18 18 18 Rate Blood Pressure 136/91 130/82 131/90 O2 Sat by Pulse 98 97 99 Oximetry 07/12/22 18:05 Temperature 98.7 F Pulse Rate 78 Respiratory 20 Rate Blood Pressure 147/105 O2 Sat by Pulse 97 Oximetry - Reevaluation(s) Reevaluation #1: 07/12/22 13:41 Patient seen and evaluated in room number 16. Triage vital signs reveal a heart rate of 1:15, so vital signs within acceptable limits. Patient's well-appearing at the bedside. His abdominal examination is fairly benign. Does not have a surgical abdomen. Rectal exam is unremarkable. No gross blood. No melanotic residue. Patient requesting Dilaudid. Suspicion of opiate dependence 07/12/22 13:42 (Dylon eLe) EKG Findings - EKG Comments: EKG Findings:: My EKG interpretation: Ventricular rate 99, sinus rhythm, DC interval 202, QRS 112, QTC 405. No DC prolongation, no QTC prolongation, no ST or T-wave changes noted. Overall, this EKG is unremarkable <Dylon Lee - Last Filed: 07/12/22 16:28> Medical Decision Making - Lab Data Result diagrams: 07/12/22 13:45 07/12/22 14:00 <Dylon Lee - Last Filed: 07/12/22 16:28> - Lab Data Result diagrams: 07/12/22 13:45 07/12/22 14:00 <Joan Coffey - Last Filed: 07/13/22 00:41> - Medical Decision Making Was pt. sent in by a medical professional or institution (, PA, BIT SHAVER, urgent care, hospital, or senior care...) When possible be specific @ -No Did you speak to anyone other than the patient for history (EMS, parent, family, police, friend...)? What history was obtained from this source @ -No Did you review nursing and triage notes (agree or disagree)? Why? @ -I reviewed and agree with nursing and triage notes Were old charts reviewed (outside hosp., previous admission, EMS record, old EKG, old radiological studies, urgent care reports/EKG's, senior care records)? Report findings @ -No old charts were reviewed Differential Diagnosis (chest pain, altered mental status, abdominal pain women, abdominal pain men, vaginal bleeding, musculoskeletal, weakness, fever, dyspnea, syncope, headache, dizziness, GI bleed, back pain, seizure, CVA, palpatations, mental health)? @ -Differential Abdominal Pain Men: Appendicitis, cholecystitis, diverticulosis, ischemic bowel, pancreatitis, hepatitis, UTI, gastroenteritis, AAA, incarcerated hernia, bowel obstruction, constipation, inflammatory bowel, hepatitis, peptic ulcer disease, splenic infarction, perforated viscus, testicular torsion, this is not meant to be an all-inclusive list EKG interpreted by me (3pts min.). @ -See above X-rays interpreted by me (1pt min.). @ -None done CT interpreted by me (1pt min.). @ -Computed tomography scan pending. Care signed out to Dr. Coffey at 4:30 PM U/S interpreted by me (1pt. min.). @ -None done What testing was considered but not performed or refused? (CT, X-rays, U/S, labs)? Why? @ -None What meds were considered but not given or refused? Why? @ -None Did you discuss the management of the patient with other professionals (professionals i.e. , PA, BIT SHAVER, lab, RT, psych nurse, social worker assistant, casting wheel operator helper, teacher, chief executive officer, gearcase assembler)? Give summary @ -No Was smoking cessation discussed for >3mins.? @ -No Was critical care preformed (if so, how long)? @ -No Were there social determinants of health that impacted care today? How? (Home lessness, low income, unemployed, alcoholism, drug addiction, transportation, low edu. Level, literacy, decrease access to med. care, detention, rehab)? @ -No Was there de-escalation of care discussed even if they declined (Discuss DNR or withdrawal of care, Hospice)? DNR status @ -No What co-morbidities impacted this encounter? (DM, HTN, Smoking, COPD, CAD, Cancer, CVA, ARF, Chemo, Hep., AIDS, mental health diagnosis, sleep apnea, morbid obesity)? @ -None Was patient admitted / discharged? Hospital course, mention meds given and route, prescriptions, significant lab abnormalities, going to OR and other pertinent info. @ -59-year-old male presents emergency Department with abdominal pain. Pain is in the right lower quadrant. Vital signs upon arrival shows tachycardia 1:15. Rest vital signs within acceptable limits. Laboratory evaluation obtained showing mild achy, lactic acidosis of 4.5. Positive anion gap acidosis. So, blood is negative. Abdominal x-ray shows possible ileus. Pending computed tomography scan. Patient care signed out to Dr. Coffey Undiagnosed new problem with uncertain prognosis? @ -No Drug Therapy requiring intensive monitoring for toxicity (Heparin, Nitro, Insulin, Cardizem)? @ -No Were any procedures done? @ -No Diagnosis/symptom? Acute, or Chronic, or Acute on Chronic? Uncomplicated (with out systemic symptoms) or Complicated (systemic symptoms)? @ -1. Abdominal pain Side effects of treatment? @ -No Exacerbation, Progression, or Severe Exacerbation? @ -No Poses a threat to life or bodily function? How? (Chest pain, USA, AK, pneumonia, PE, COPD, DKA, ARF, appy, cholecystitis, CVA, Diverticulitis, Homicidal, Suicidal, threat to staff... and all critical care pts) @ -yes (Dylon Lee) Patient signed out to me pending CT. CT demonstrates no acute abdominal process. Patient's requesting several times to be given Dilaudid. I did order a dose of morphine which she refuses stating that that doesn't work for him. I did discuss the results of the laboratory studies and imaging with the patient. Patient is stable for discharge at this time. Recommended that he increase fluid intake. Occult was negative. Lactic acid resolved. Return for any new or worsening symptoms. Patient discharged in stable condition (Joan Coffey) - Lab Data Lab Results 07/12/22 07/12/22 07/12/22 Range/Units 13:45 13:45 13:45 WBC 11.4 H (3.8-10.6) k/uL RBC 6.31 H (4.30-5.90) m/uL Hgb 18.3 H (13.0-17.5) gm/dL Hct 53.2 H (39.0-53.0) % MCV 84.2 (80.0-100.0) fL MCH 29.0 (25.0-35.0) pg MCHC 34.5 (31.0-37.0) g/dL RDW 14.3 (11.5-15.5) % Plt Count 303 (150-450) k/uL MPV 7.6 Neutrophils % 74 % Lymphocytes % 17 % Monocytes % 7 % Eosinophils % 1 % Basophils % 0 % Neutrophils # 8.4 H (1.3-7.7) k/uL Lymphocytes # 2.0 (1.0-4.8) k/uL Monocytes # 0.7 (0-1.0) k/uL Eosinophils # 0.1 (0-0.7) k/uL Basophils # 0.1 (0-0.2) k/uL Sodium (137-145) mmol/L Potassium (3.5-5.1) mmol/L Chloride (98-107) mmol/L Carbon Dioxide (22-30) mmol/L Anion Gap mmol/L BUN (9-20) mg/dL Creatinine (0.66-1.25) mg/dL Est GFR (CKD-EPI)AfAm (>60 ml/min/1.73 sqM) Est GFR (CKD-EPI)NonAf (>60 ml/min/1.73 sqM) Glucose (74-99) mg/dL Lactic Ac Sepsis Rflx Plasma Lactic Acid Chacorta 4.5 H* (0.7-2.0) mmol/L Calcium (8.4-10.2) mg/dL Total Bilirubin (0.2-1.3) mg/dL AST (17-59) U/L ALT (4-49) U/L Alkaline Phosphatase (38-126) U/L Total Protein (6.3-8.2) g/dL Albumin (3.5-5.0) g/dL Stool Occult Blood Negative (Negative) 07/12/22 07/12/22 07/12/22 Range/Units 14:00 14:23 18:20 WBC (3.8-10.6) k/uL RBC (4.30-5.90) m/uL Hgb (13.0-17.5) gm/dL Hct (39.0-53.0) % MCV (80.0-100.0) fL MCH (25.0-35.0) pg MCHC (31.0-37.0) g/dL RDW (11.5-15.5) % Plt Count (150-450) k/uL MPV Neutrophils % % Lymphocytes % % Monocytes % % Eosinophils % % Basophils % % Neutrophils # (1.3-7.7) k/uL Lymphocytes # (1.0-4.8) k/uL Monocytes # (0-1.0) k/uL Eosinophils # (0-0.7) k/uL Basophils # (0-0.2) k/uL Sodium 133 L (137-145) mmol/L Potassium 4.0 (3.5-5.1) mmol/L Chloride 99 (98-107) mmol/L Carbon Dioxide 16 L (22-30) mmol/L Anion Gap 18 mmol/L BUN 47 H (9-20) mg/dL Creatinine 1.79 H (0.66-1.25) mg/dL Est GFR (CKD-EPI)AfAm 44 (>60 ml/min/1.73 sqM) Est GFR (CKD-EPI)NonAf 38 (>60 ml/min/1.73 sqM) Glucose 118 H (74-99) mg/dL Lactic Ac Sepsis Rflx Y Plasma Lactic Acid Chacorta 1.5 (0.7-2.0) mmol/L Calcium 10.0 (8.4-10.2) mg/dL Total Bilirubin 1.0 (0.2-1.3) mg/dL AST 32 (17-59) U/L ALT 28 (4-49) U/L Alkaline Phosphatase 133 H (38-126) U/L Total Protein 8.6 H (6.3-8.2) g/dL Albumin 5.3 H (3.5-5.0) g/dL Stool Occult Blood (Negative) Disposition <Dylon Lee - Last Filed: 07/12/22 16:28> Is patient prescribed a controlled substance at d/c from ED?: No Time of Disposition: 18:20 <Joan Coffey - Last Filed: 07/13/22 00:41> Clinical Impression: Abdominal pain, Lactic acidosis, Chronic back pain, Drug-seeking behavior Disposition: HOME SELF-CARE Condition: Stable Instructions (If sedation given, give patient instructions): Dehydration (ED) Referrals: Sammie Mercedes MD [Primary Care Provider] - 1-2 days
[2022-07-12 14:02] LABS: Basophils # (A) 0.1 k/uL (0-0.2); Basophils % (A) 0 %; Eosinophils # (A) 0.1 k/uL (0-0.7); Eosinophils % (A) 1 %; HCT 53.2 % (39.0-53.0); HGB 18.3 gm/dL (13.0-17.5); Lymphocytes % (A) 17 %; MCHC 34.5 g/dL (31.0-37.0); MCV 84.2 fL (80.0-100.0); Mean Platelet Volume 7.6; Monocytes # (A) 0.7 k/uL (0-1.0); Monocytes % (A) 7 %; Neutrophils # (A) 8.4 k/uL (1.3-7.7); Neutrophils % (A) 74 %; Platelet Count 303 k/uL (150-450); RBC 6.31 m/uL (4.30-5.90); RDW 14.3 % (11.5-15.5); WBC 11.4 k/uL (3.8-10.6)
--- NOTE | 2022-07-12 14:27 | XR ---
EXAMINATION TYPE: XR abdomen 1V DATE OF EXAM: 07/12/2022 COMPARISON: NONE HISTORY: Pain TECHNIQUE: One view abdominal series FINDINGS: The osseous structures are intact. The bowel gas pattern is nonspecific. Lung bases are clear. Surg ical clips are seen in the upper quadrant. Surgical changes. Single prominent small bowel loop in the left abdomen. Sclerosis involving both femoral heads with bilateral arthropathy. IMPRESSION: 1. Nonspecific abdomen. Single prominent small bowel loop left lower quadrant may be in the basis of enteritis or ileus. Recommend CT scan of the abdomen and pelvis. 2. Bilateral femoral head arthropathy with sclerosis suggestive of osteonecrosis, correlate clinicall y.
[2022-07-12 14:50] LABS: ALT 28 U/L (4-49); AST 32 U/L (17-59); African American GFR (CKD) 44 (>60 ml/min/1.73 sqM); Albumin 5.3 g/dL (3.5-5.0); Alkaline Phosphatase 133 U/L (38-126); Anion Gap 18 mmol/L; Blood Urea Nitrogen 47 mg/dL (9-20); Carbon Dioxide 16 mmol/L (22-30); Chloride 99 mmol/L (98-107); Glucose 118 mg/dL (74-99); Non-African American GFR(CKD) 38 (>60 ml/min/1.73 sqM); Sodium 133 mmol/L (137-145); Total Protein 8.6 g/dL (6.3-8.2)
[2022-07-12] MEDS ORDERED: SODIUM CHLORIDE 0.9% 1,000 ML IV STA (15:08)
--- NOTE | 2022-07-12 17:39 | CT ---
EXAMINATION TYPE: CT abdomen pelvis w con CT DLP: 1544.6 mGycm, Automated exposure control for dose reduction was used. DATE OF EXAM: 07/12/2022 5:11 PM COMPARISON: 05/18/2022 CLINICAL INDICATION:Male, 67 years old with history of RLQ abdominal pain; Abdominal pain and back pa in. Black stool. R/O GI bleed. TECHNIQUE: Axial CT of the abdomen and pelvis. Sagittal and coronal reformats were created on a [employer] workstation. Contrast used:100ML mL of Isovue 300 with IV Contrast, Oral contrast used: without Oral Contrast FINDINGS: LOWER CHEST: Unremarkable ABDOMEN LIVER: Diffusely hypoattenuating parenchyma. Hepatic simple appearing right cyst. GALLBLADDER AND BILE DUCTS: The gallbladder is surgically absent. PANCREAS: Unremarkable. SPLEEN: Small splenules are present. ADRENAL GLANDS: Unremarkable. KIDNEYS AND URETERS: No evidence of hydronephrosis or renal calculus. The ureters are unremarkable. PELVIS BLADDER: Unremarkable REPRODUCTIVE: Unremarkable. ABDOMEN & PELVIS STOMACH AND BOWEL: Small hiatal hernia, duodenum is unremarkable. Scattered diverticula are noted thr oughout the colon. No evidence of bowel obstruction. PERITONEUM/RETROPERITONEUM: No evidence of pneumoperitoneum or free fluid. VASCULATURE: Moderate atherosclerotic calcifications are present throughout the abdominal aorta and i ts branches. No evidence of aortic aneurysm. MUSCULOSKELETAL: No acute osseous abnormalities. Mild disc degeneration changes are present throughou t the thoracolumbar spine. Postsurgical changes L3-L5. Hardware appears intact. Laminectomy changes a t these levels also present. Curvilinear sclerosis of the femoral heads bilaterally. LYMPH NODES: No gross evidence for lymphadenopathy. SOFT TISSUE/ABDOMINAL WALL: Fat-containing umbilical hernia. IMPRESSION: 1. This is a non-GI bleed protocol CT scan which limits evaluation for hemorrhage. There is small hi atal hernia no additional evidence for acute abdominal process or evidence for gastrointestinal hemor rhage. 2. Hepatic steatosis. 3. Post surgical changes spine with hardware intact. 4. Avascular necrosis of femoral heads without collapse at this time. 5. Colonic diverticulosis.
[2022-07-12] MEDS ORDERED: MORPHINE SULFATE 4 MG/ML SYRINGE IVP STA (18:06)
[2022-07-12] MEDS ORDERED: SODIUM CHLORIDE 0.9% 1,000 ML IV ONE ×2 (18:06)
[2022-07-12 18:17] VITALS: BP 147/105; PULSE 78; RESP 20; TEMP 98.7
== END 2022-07-12 18:59 | disposition home or self-care (01) ==
LOC: EC 12:44
DX: G89.29 Other chronic pain (principal); K44.9 Diaphragmatic hernia without obstruction or gangrene; K57.30 Diverticulosis of large intestine without perforation or abscess without bleeding; K76.0 Fatty (change of) liver, not elsewhere classified; Z65.8 Other specified problems related to psychosocial circumstances; I48.91 Unspecified atrial fibrillation; I25.10 Atherosclerotic heart disease of native coronary artery without angina pectoris; I10 Essential (primary) hypertension; I25.2 Old myocardial infarction; E07.9 Disorder of thyroid, unspecified; F12.90 Cannabis use, unspecified, uncomplicated; Z87.891 Personal history of nicotine dependence; Z79.890 Hormone replacement therapy; Z79.899 Other long term (current) drug therapy; Z88.8 Allergy status to other drugs, medicaments and biological substances
CPT/HCPCS: 36415; 93005; 80053; 83605; 85025; 82272; 74018; 74177; 99285; 96360; 96361; Q9967

== ENCOUNTER 2022-08-11 08:23 | Inpatient (IN) | payer MEDICARE ==
[2022-08-11] MEDS ORDERED: PANTOPRAZOLE 40 MG/10 ML VIAL IVP STA (09:03)
[2022-08-11] MEDS ORDERED: ONDANSETRON 4 MG/2 ML VIAL IVP STA (09:03)
[2022-08-11] MEDS ORDERED: SODIUM CHLORIDE 0.9% 1,000 ML IV STA (09:03)
[2022-08-11] MEDS ORDERED: SODIUM CHLORIDE 0.9% 500 ML 500 ML IV STA (09:03)
--- NOTE | 2022-08-11 09:10 | ED ---
Abdominal Pain HPI - General Chief Complaint: Abdominal Pain Stated Complaint: vomiting, abd pain Time Seen by Provider: 08/11/22 08:35 Source: patient, RN notes reviewed Mode of arrival: wheelchair Limitations: no limitations - History of Present Illness Initial Comments: Patient is 67 year old male presenting to the ER with a chief complaint of abdominal pain and vomiting. Patient states he started vomiting yesterday morning with a burning pain in his abdomen. He endorses associated diarrhea. Patient states he has taken Tums with slight relief. Patient states he is vomiting liquid. He also reports he has not urinated since 08/09/22. He states he has not felt the urge to go and states he has sat on the toilet for 15 minutes and has not urinated. Patient denies any known prostate problems. Denies chest pain, shortness of breath, fevers, chills, peripheral edema. - Related Data Home Medications Medication Instructions Recorded Confirmed Levothyroxine Sodium [Synthroid] 75 mcg PO DAILY 05/04/16 07/12/22 Escitalopram [Lexapro] 20 mg PO DAILY 12/16/16 07/12/22 Nitroglycerin Sl Tabs [Nitrostat] 0.4 mg SL Q5M PRN 07/23/21 07/12/22 Evolocumab [Repatha Sureclick] 140 mg SQ Q14D 04/20/22 07/12/22 Isosorbide Mononitrate ER [Imdur] 30 mg PO DAILY 04/20/22 07/12/22 Pregabalin [Lyrica] 75 mg PO BID 06/10/22 07/12/22 amLODIPine [Norvasc] 10 mg PO DAILY 06/10/22 07/12/22 Previous Rx's Medication Instructions Recorded Aspirin 81 mg PO DAILY #30 tab 10/17/21 Ticagrelor [Brilinta] 90 mg PO BID #60 tab 10/17/21 Pantoprazole [Protonix] 40 mg PO AC-BID #60 tab 10/22/21 cloNIDine HCL [Catapres] 0.1 mg PO BID tab 10/22/21 Allergies Allergy/AdvReac Type Severity Reaction Status Date / Time rivaroxaban [From Xarelto] AdvReac Severe Nausea & Verified 08/11/22 08:25 Vomiting & Diarrhea paroxetine HCl [From Paxil] AdvReac Unknown Nausea & Verified 08/11/22 08:25 Vomiting & Diarrhea apixaban [From Eliquis] AdvReac Nausea & Verified 08/11/22 08:25 Vomiting & Diarrhea atorvastatin [From Lipitor] AdvReac Nausea & Verified 08/11/22 08:25 Vomiting & Diarrhea Beta-Blockers AdvReac Nausea & Verified 08/11/22 08:25 (Beta-Adrenergic Bloc Vomiting & Diarrhea gabapentin AdvReac Nausea & Verified 08/11/22 08:25 Vomiting & Diarrhea Gszhdjo-SAM-[id number] Reductase AdvReac Nausea & Verified 08/11/22 08:25 Inhibitor Vomiting & Diarrhea warfarin AdvReac Nausea & Verified 08/11/22 08:25 Vomiting & Diarrhea Review of Systems ROS Statement: Those systems with pertinent positive or pertinent negative responses have been documented in the HPI. ROS Other: All systems not noted in ROS Statement are negative. Past Medical History Past Medical History: Atrial Fibrillation, Coronary Artery Disease (CAD), Chest Pain / Angina, Deep Vein Thrombosis (DVT), GERD/Reflux, GI Bleed, Hyperlipidemia, Hypertension, Myocardial Infarction ([place]), Musculoskeletal Disorder, Osteoarthritis (OA), Pneumonia, Renal Disease, Syncope, Thyroid Disorder Additional Past Medical History / Comment(s): Paroxysmal afib, fell 12 weeks ago and fractured stenum/ribs, episodes of acute renal failure associated with dehydration, ckd stage IV, past melana stools, diverticulitis, IBS, return of hiatal hernia, bronchitis, hypothyroid, chronic low back pain with bilateral sciatica, lumbar DDD, past migraines, DJD, numbness/tingling bilateral legs/feet, 4 DVTs L leg surgically removed. covid + July 2021 Last Myocardial Infarction Date:: 10/15/21 History of Any Multi-Drug Resistant Organisms: None Reported Past Surgical History: Back Surgery, Cholecystectomy, Heart Catheterization, Heart Catheterization With Stent, Hernia Repair, Orthopedic Surgery Additional Past Surgical History / Comment(s): Back fusions L3-L5, ORIF L ankle, L hand fracture with surgery, R knee arthroscopy x2, R elbow tendon release, R s houlder arthroscopy, L shoulder arthroscopy, lumbar spine cyst removed, pain clinic procedures, taylor fundoplication, EGD, colonoscopy, 2019 arteriogram/thrombus extraction at [facility]. PTCA w/ 3 stents now. rt knee replacemnt, right quad repair Past Anesthesia/Blood Transfusion Reactions: No Reported Reaction Date of Last Stent Placement:: 10/15/21 Past Psychological History: No Psychological Hx Reported, Depression Smoking Status: Former smoker Past Alcohol Use History: Occasional Past Drug Use History: Marijuana - Past Family History Mother Family Medical History: Thyroid Disorder Additional Family Medical History / Comment(s): Mother is living. Father Family Medical History: Coronary Artery Disease (CAD), Diabetes Mellitus Additional Family Medical History / Comment(s): Father had CABG. He at the age of 84 yrs in a MVA. Sister(s) Family Medical History: Cancer Additional Family Medical History / Comment(s): Sister #1 skin cancer, sister #2 thyroid cancer. General Exam Limitations: no limitations General appearance: alert, in no apparent distress Respiratory exam: Present: normal lung sounds bilaterally. Absent: respiratory distress, wheezes, rales, rhonchi, stridor Cardiovascular Exam: Present: regular rate, normal rhythm, normal heart sounds. Absent: systolic murmur, diastolic murmur, rubs, gallop, clicks GI/Abdominal exam: Present: soft, distended, tenderness (generalized ), normal bowel sounds Skin exam: Present: warm, dry, intact, normal color. Absent: rash Course Vital Signs 08/11/22 08/11/22 08:26 09:56 Temperature 96.9 F L Pulse Rate 109 H 78 Respiratory 22 20 Rate Blood Pressure 134/94 131/85 O2 Sat by Pulse 96 96 Oximetry Medical Decision Making - Medical Decision Making Was pt. sent in by a medical professional or institution (, PA, JOY LOADING MACHINE OPERATOR, urgent care, hospital, or long-term...) When possible be specific @ -No Did you speak to anyone other than the patient for history (EMS, parent, family, police, friend...)? What history was obtained from this source @ -No Did you review nursing and triage notes (agree or disagree)? Why? @ -I reviewed and agree with nursing and triage notes Were old charts reviewed (outside hosp., previous admission, EMS record, old EKG, old radiological studies, urgent care reports/EKG's, long-term records)? Report findings @ -Reviewed prior laboratory studies Differential Diagnosis (chest pain, altered mental status, abdominal pain women, abdominal pain men, vaginal bleeding, weakness, fever, dyspnea, syncope, headache, dizziness, GI bleed, back pain, seizure, CVA, palpatations, mental health, musculoskeletal)? @ -Differential Abdominal Pain Men: Appendicitis, cholecystitis, diverticulosis, ischemic bowel, pancreatitis, hepatitis, UTI, gastroenteritis, AAA, incarcerated hernia, bowel obstruction, constipation, inflammatory bowel, hepatitis, peptic ulcer disease, splenic infarction, perforated viscus, testicular torsion, this is not meant to be an all-inclusive listble EKG interpreted by me (3pts min.). @ -None X-rays interpreted by me (1pt min.). @ -None done CT interpreted by me (1pt min.). @ -None done U/S interpreted by me (1pt. min.). @ -None done What testing was considered but not performed or refused? (CT, X-rays, U/S, labs)? Why? @ -Considered x-ray, CT though patient had recent CT one month ago. Patient has no localized abdominal pain. What meds were considered but not given or refused? Why? @ -None Did you discuss the management of the patient with other professionals (professionals i.e. , PA, JOY LOADING MACHINE OPERATOR, lab, RT, psych nurse, social worker school, hammerer tab, teacher, cash management officer, case assistant)? Give summary @ -Discussed the case with PCP Dr. Mercedes who recommends patient be admitted for consult to nephrology. Was smoking cessation discussed for >3mins.? @ -No Was critical care preformed (if so, how long)? @ -No Were there social determinants of health that impacted care today? How? (Homelessness, low income, unemployed, alcoholism, drug addiction, transportation, low edu. Level, literacy, decrease access to med. care, [facility], rehab)? @ -No Was there de-escalation of care discussed even if they declined (Discuss DNR or withdrawal of care, Hospice)? DNR status @ -No What co-morbidities impacted this encounter? (DM, HTN, Smoking, COPD, CAD, Cancer, CVA, ARF, Chemo, Hep., AIDS, mental health diagnosis, sleep apnea, morbid obesity)? @ -Hypertension, chronic vomiting Was patient admitted / discharged? Hospital course, mention meds given and route, prescriptions, significant lab abnormalities, going to OR and other pertinent info. @ -Admitted patient's found to have acute kidney injury with creatinine over 4 this is up from his baseline. Patient's will be admitted for IV fluid hydration, antiemetics, nephrology consult. Undiagnosed new problem with uncertain prognosis? @ -No Drug Therapy requiring intensive monitoring for toxicity (Heparin, Nitro, Insulin, Cardizem)? @ -No Were any procedures done? @ -No Diagnosis/symptom? @ -Acute kidney injury, dehydration, nausea vomiting Acute, or Chronic, or Acute on Chronic? @ -Acute Uncomplicated (without systemic symptoms) or Complicated (systemic symptoms)? @ -Uncomplicated Side effects of treatment? @ -No Exacerbation, Progression, or Severe Exacerbation? @ -No Poses a threat to life or bodily function? How? (Chest pain, [place], [place], pneumonia, PE, COPD, DKA, ARF, appy, cholecystitis, CVA, Diverticulitis, Homicidal, Suicidal, threat to staff... and all critical care pts) @ -No - Lab Data Result diagrams: 08/11/22 09:33 08/11/22 10:54 Lab Results 08/11/22 08/11/22 08/11/22 Range/Units 09:33 10:54 10:54 WBC 13.7 H (3.8-10.6) k/uL RBC 6.60 H (4.30-5.90) m/uL Hgb 18.8 H (13.0-17.5) gm/dL Hct 53.8 H (39.0-53.0) % MCV 81.6 (80.0-100.0) fL MCH 28.5 (25.0-35.0) pg MCHC 35.0 (31.0-37.0) g/dL RDW 14.6 (11.5-15.5) % Plt Count 310 (150-450) k/uL MPV 8.5 Neutrophils % 84 % Lymphocytes % 11 % Monocytes % 4 % Eosinophils % 0 % Basophils % 0 % Neutrophils # 11.5 H (1.3-7.7) k/uL Lymphocytes # 1.5 (1.0-4.8) k/uL Monocytes # 0.5 (0-1.0) k/uL Eosinophils # 0.0 (0-0.7) k/uL Basophils # 0.0 (0-0.2) k/uL Sodium 138 (137-145) mmol/L Potassium 4.4 (3.5-5.1) mmol/L Chloride 99 (98-107) mmol/L Carbon Dioxide 17 L (22-30) mmol/L Anion Gap 22 mmol/L BUN 37 H (9-20) mg/dL Creatinine 4.38 H (0.66-1.25) mg/dL Est GFR (CKD-EPI)AfAm 15 (>60 ml/min/1.73 sqM) Est GFR (CKD-EPI)NonAf 13 (>60 ml/min/1.73 sqM) Glucose 135 H (74-99) mg/dL Plasma Lactic Acid Chacorta 2.2 H* (0.7-2.0) mmol/L Calcium 11.6 H (8.4-10.2) mg/dL Total Bilirubin 0.7 (0.2-1.3) mg/dL AST 30 (17-59) U/L ALT 30 (4-49) U/L Alkaline Phosphatase 126 (38-126) U/L Total Protein 9.1 H (6.3-8.2) g/dL Albumin 5.4 H (3.5-5.0) g/dL Amylase 59 (30-110) U/L Lipase 104 (23-300) U/L Disposition Clinical Impression: Intractable vomiting with nausea, Acute kidney injury (nontraumatic), Dehydration, moderate Disposition: ADMITTED IP TO THIS [facility] Condition: Fair Referrals: Sammie Mercedes MD [Primary Care Provider] - 1-2 days Time of Disposition: 11:25
[2022-08-11 09:54] LABS: Basophils % (A) 0 %; Eosinophils % (A) 0 %; HCT 53.8 % (39.0-53.0); HGB 18.8 gm/dL (13.0-17.5); Lymphocytes # (A) 1.5 k/uL (1.0-4.8); Lymphocytes % (A) 11 %; MCH 28.5 pg (25.0-35.0); MCV 81.6 fL (80.0-100.0); Mean Platelet Volume 8.5; Monocytes # (A) 0.5 k/uL (0-1.0); Monocytes % (A) 4 %; Neutrophils # (A) 11.5 k/uL (1.3-7.7); Neutrophils % (A) 84 %; Platelet Count 310 k/uL (150-450); RDW 14.6 % (11.5-15.5); WBC 13.7 k/uL (3.8-10.6)
[2022-08-11] MEDS ORDERED: MORPHINE SULFATE 4 MG/ML SYRINGE IVP STA (10:04)
[2022-08-11 11:21] LABS: ALT 30 U/L (4-49); AST 30 U/L (17-59); African American GFR (CKD) 15 (>60 ml/min/1.73 sqM); Albumin 5.4 g/dL (3.5-5.0); Alkaline Phosphatase 126 U/L (38-126); Amylase 59 U/L (30-110); Anion Gap 22 mmol/L; Blood Urea Nitrogen 37 mg/dL (9-20); Calcium 11.6 mg/dL (8.4-10.2); Carbon Dioxide 17 mmol/L (22-30); Chloride 99 mmol/L (98-107); Glucose 135 mg/dL (74-99); Lipase 104 U/L (23-300); Non-African American GFR(CKD) 13 (>60 ml/min/1.73 sqM); Potassium 4.4 mmol/L (3.5-5.1); Sodium 138 mmol/L (137-145); Total Bilirubin 0.7 mg/dL (0.2-1.3); Total Protein 9.1 g/dL (6.3-8.2)
[2022-08-11] MEDS ORDERED: HYDROmorphone 0.5 MG/0.5 ML SYRINGE IVP STA (11:42)
[2022-08-11] MEDS ORDERED: HYDROmorphone 0.5 MG/0.5 ML SYRINGE IVP PRN (11:54)
[2022-08-11] MEDS ORDERED: NALOXONE 0.4 MG/ML 1 ML VIAL IV PRN (11:54)
[2022-08-11] MEDS ORDERED: ONDANSETRON 4 MG/2 ML VIAL IVP PRN (11:54)
[2022-08-11] MEDS: SODIUM CHLORIDE 0.9% 1,000 ML IV SCH ×2 (12:03→23:46)
[2022-08-11] MEDS ORDERED: NITROGLYCERIN SL TABS 0.4 MG TAB SUBLINGUAL PRN (15:04)
[2022-08-11] MEDS: ISOSORBIDE MONONITRATE ER 30 MG TAB.ER.24H PO SCH (15:16)
--- NOTE | 2022-08-11 17:01 | US ---
EXAMINATION TYPE: US kidneys/renal and bladder DATE OF EXAM: 08/11/2022 COMPARISON: CT 2022, US 2022 CLINICAL INDICATION: Male, 67 years old with history of JOSIE; JOSIE, Hx gallbladder removed. EXAM MEASUREMENTS: Right Kidney: 13.0 x 6.2 x 6.2 cm Left Kidney: 11.6 x 5.6 x 5.9 cm Right Kidney: Enlarged. Left Kidney: No hydronephrosis or masses seen Bladder: Appears wnl Bilateral Jets seen: Yes Incidental finding: septated anechoic area seen within the liver: 3.2 x 3.4 x 3.2 cm. IMPRESSION: 1. No evidence for obstructive uropathy. 2. Mildly complex complex right hepatic lobe cyst..
--- NOTE | 2022-08-11 17:32 | P.HPIM ---
History of Present Illness H&P Date: 08/11/22 HISTORY OF PRESENT ILLNESS: This is a 67-year-old male with a previous medical history significant for hypertension and hypertensive cardiovascular disease, hyperlipidemia, chronic obstructive pulmonary disease, CAD, hypothyroidism, osteoarthritis status post right total knee arthroplasty, GERD with esophagitis, major depressive disorder and anxiety disorder. Patient had recent hospitalization in April of this year which time he presented with acute kidney injury and seen by nephrology, ultrasound showed no evidence of hydronephrosis. Patient was stabilized and discharged, apparently patient slid and fell at home 3 weeks ago and ended up getting his quad tendon tear and he was sent [facility] repair with and had intraparenchymal bleed that was resolved patient ended up admitted to the hospital multiple times after that after he was getting off the pain medication thought due to withdrawal from codeine, at this point in time patient has not been taking any pain medication, but he stated that he is been using marijuana on and off for pain control, since he is not taking any pain medication at this time, he stated that he was in his usual state of health about yesterday in the morning when he woke up in the morning and he felt nauseated and broke down in sweat and started to have a significant violent vomiting associated with significant heartburn, patient stated that he has some blood in his vomitus, patient ended up coming to the emergency department today with generalized fatigue and weakness, he was found to have an acute kidney injury and top of chronic kidney disease, and because of the presentation he was admitted to the hospital for evaluation by nephrology as well as was gastric urology, patient was supposed to go for an upper endoscopy for further evaluation of his had a hernia rule out any peptic ulcer disease REVIEW OF SYSTEMS: Constitutional: No documented fever, no chills, no night sweats. No weight change. positive for weakness, fatigue no lethargy. No daytime sleepiness. HEENT: No headache. No blurred vision or double vision, no loss of vision. No loss of Hearing, no ringing in the ears, no dizziness. No nasal drainage or congestion. No epistaxis. No sore throat. Lungs: No shortness of breath, no cough, no sputum production. No wheezing. Reports dyspnea with activity. Cardiovascular: No chest pain, no lower extremity edema. No palpitations. No paroxysmal nocturnal dyspnea. No orthopnea. No lightheadedness or dizziness. No syncopal episodes. Abdominal: Reports abdominal pain. positive for nausea, vomiting. no diarrhea. No constipation. No bloody or tarry stools reports loss of appetite, reports blood in the vomit Genitourinary: No dysuria, increased frequency, urgency. No urinary retention. Musculoskeletal: No myalgias. positive for muscle weakness and leg cramps , no gait dysfunction, no frequent falls. No back pain. No neck pain. Integumentary: No wounds, no lesions. No rash or pruritus. No unusual bruising. No change in hair or nails. Neurologic: No aphasia. No facial droop. No change in mentation. No head injury. No headache. No paralysis. No paresthesia. Psychiatric: positive for depression. No anxiety. No mood swings. Endocrine: No abnormal blood sugars. No weight change. PAST MEDICAL HISTORY: Hypertension and hypertensive cardiovascular disease. Hyperlipidemia. Abdominal aortic thrombus COPD. CAD of mentasta artery. Hypothyroidism. Osteoarthritis. GERD with esophagitis. Chronic low back pain status post PE LDF of L3 L5. PAST SURGICAL HISTORY: Left heart catheterization with PCI of the LCx 10/16/2021 Right knee arthroscopic surgery. Right total knee arthroplasty March 2022. P LDF L3 L5 with Tarlov cyst 1999 Hiatal hernia repair 1989. Colonoscopy 2019. Laparoscopic cholecystectomy 1989. Right elbow repair. Left heart catheterization with PCI of the proximal OM1 06/18/2019. Left heart catheterization with PCI of the RCA 11/17/2013. Left heart catheterization with PCI of the LAD 07/03/2007. Left tib-fib Fed ORIF. Left hand surgery. Right Qaudriceps tendon repair SOCIAL HISTORY: Patient used to smoke about pack every day at the age of 17 and he quit at the age of 27, he smokes marijuana, he drinks alcohol 1-2 drinks at a time no more than 4 drinks a week, he denies any other drug use or abuse. FAMILY HISTORY: Father at age of 80 from motor vehicle accident and had a history of dementia, mother at age of 87 with hypertension and atrial for relation, patient has one brother okay and had 4 sisters one with thyroid disease one with skin cancer and the other 2 are okay patient has 2 sons alive and well and one daughter alive and well as well. PHYSICAL EXAMINATION: General: 67-year-old male laying down in bed in no distress. HEENT: Head is atraumatic, normocephalic, pupils were equal round reactive to light and recommendation, extraocular muscle movement were intact, sclera nonicteric, conjunctivae were pale, mucous membranes of the mouth are somewhat dry. Neck: Supple, no JVP, normal carotid upstroke bilaterally, no lymphadenopathy. Chest: Decreased breath sounds at the bases, few rhonchi, minimal expiratory wheezes, no chest wall tenderness, no intercostal retractions. Heart: First heart sound is normal, second heart sound is normal there is LUIS 2/6 located at the left sternal border. Abdomen: Soft, nontender, nondistended, positive bowel sounds. Extremities: There is no edema no calf tenderness DP +2 bilaterally. Neurologic examination: Patient is awake alert and oriented X 3, cranial nerves II-12 appear grossly intact, muscle power were 5 out of 5 in upper extremities and 5 out of 5 in bilateral lower extremities, deep tendon reflexes normal bilaterally. ASSESSMENT AND PLAN: 1. Acute kidney injury due to acute tubular necrosis due to gastrointestinal fluid loss and. Patient will be started on IV fluid in the form of normal saline at 100 cc/h and we will repeat CMP tomorrow, check ultrasound of the kidneys, nephrology consultation Dr. Browne. 2. Possible upper GI bleed. Continue patient on Protonix 40 mg IV push every 24 hours, hold the patient Brilinta and ASA till evaluated by GI. 3. Coronary artery disease status post multiple PCI's. Hold Brilinta and ASA continue patient on isosorbide mononitrate 30 mg once every day, continue Repatha 140 mg subcu venously every 2 weeks, monitor lipid panel, keep LDL 5570. 4. Hypertension and hypertensive cardiovascular disease. Continue patient on amlodipine 5 mg orally twice every day, continue patient on clonidine 0.1 mg orally twice every day, monitor the patient blood pressure very closely. 5. Mixed hyperlipidemia. Patient is intolerant to statins. Continue with Repatha 140 mg subcutaneously every 2 weeks keep LDL less than 50 6. Hypothyroidism. Continue Synthroid 75 g orally once every day. 7. GERD with esophagitis and hiatal hernia. Continue patient on pantoprazole 40 mg IVP daily. 8. Anxiety and depressive disorder. Continue patient on Escitalopram 20 mg orally once every day . 9. DVT prophylaxis. Continue patient on Lovenox 30 mg subcutaneously every 24 hours. 10. GI prophylaxis. Continue PPI. 11. Admit to inpatient. Estimated length of stay 2 midnights. 12. Patient is full code. Past Medical History Past Medical History: Atrial Fibrillation, Coronary Artery Disease (CAD), Chest Pain / Angina, Deep Vein Thrombosis (DVT), GERD/Reflux, GI Bleed, Hyperlipidemia, Hypertension, Myocardial Infarction ([place]), Musculoskeletal Disorder, Osteoarthritis (OA), Pneumonia, Renal Disease, Syncope, Thyroid Disorder Additional Past Medical History / Comment(s): Paroxysmal afib, fell 12 weeks ago and fractured stenum/ribs, episodes of acute renal failure associated with dehydration, ckd stage IV, past melana stools, diverticulitis, IBS, return of hiatal hernia, bronchitis, hypothyroid, chronic low back pain with bilateral sciatica, lumbar DDD, past migraines, DJD, numbness/tingling bilateral legs /feet, 4 DVTs L leg surgically removed. covid + July 2021 Last Myocardial Infarction Date:: 10/15/21 History of Any Multi-Drug Resistant Organisms: None Reported Past Surgical History: Back Surgery, Cholecystectomy, Heart Catheterization, Heart Catheterization With Stent, Hernia Repair, Orthopedic Surgery Additional Past Surgical History / Comment(s): Back fusions L3-L5, ORIF L ankle, L hand fracture with surgery, R knee arthroscopy x2, R elbow tendon release, R shoulder arthroscopy, L shoulder arthroscopy, lumbar spine cyst removed, pain clinic procedures, taylor fundoplication, EGD, colonoscopy, 2019 arteriogram/thrombus extraction at [facility]. PTCA w/ 3 stents now. rt knee replacemnt, right quad repair Past Anesthesia/Blood Transfusion Reactions: No Reported Reaction Date of Last Stent Placement:: 10/15/21 Past Psychological History: No Psychological Hx Reported, Depression Smoking Status: Former smoker Past Alcohol Use History: Occasional Past Drug Use History: Marijuana - Past Family History Mother Family Medical History: Thyroid Disorder Additional Family Medical History / Comment(s): Mother is living. Father Family Medical History: Coronary Artery Disease (CAD), Diabetes Mellitus Additional Family Medical History / Comment(s): Father had CABG. He at the age of 84 yrs in a MVA. Sister(s) Family Medical History: Cancer Additional Family Medical History / Comment(s): Sister #1 skin cancer, sister #2 thyroid cancer. Medications and Allergies Home Medications Medication Instructions Recorded Confirmed Type Levothyroxine Sodium [Synthroid] 75 mcg PO DAILY 05/04/16 08/11/22 History Escitalopram [Lexapro] 20 mg PO DAILY 12/16/16 08/11/22 History Nitroglycerin Sl Tabs [Nitrostat] 0.4 mg SL Q5M PRN 07/23/21 08/11/22 History Aspirin 81 mg PO DAILY #30 tab 10/17/21 08/11/22 Rx Ticagrelor [Brilinta] 90 mg PO BID #60 tab 10/17/21 08/11/22 Rx Pantoprazole [Protonix] 40 mg PO AC-BID #60 tab 10/22/21 08/11/22 Rx cloNIDine HCL [Catapres] 0.1 mg PO BID tab 10/22/21 08/11/22 Rx Evolocumab [Repatha Sureclick] 140 mg SQ Q14D 04/20/22 08/11/22 History Isosorbide Mononitrate ER [Imdur] 30 mg PO DAILY 04/20/22 08/11/22 History Pregabalin [Lyrica] 75 mg PO BID 06/10/22 08/11/22 History amLODIPine [Norvasc] 10 mg PO DAILY 06/10/22 08/11/22 History Allergies Allergy/AdvReac Type Severity Reaction Status Date / Time rivaroxaban [From Xarelto] AdvReac Severe Nausea & Verified 08/11/22 14:05 Vomiting & Diarrhea paroxetine HCl [From Paxil] AdvReac Unknown Nausea & Verified 08/11/22 14:05 Vomiting & Diarrhea apixaban [From Eliquis] AdvReac Nausea & Verified 08/11/22 14:05 Vomiting & Diarrhea atorvastatin [From Lipitor] AdvReac Nausea & Verified 08/11/22 14:05 Vomiting & Diarrhea Beta-Blockers AdvReac Nausea & Verified 08/11/22 14:05 (Beta-Adrenergic Bloc Vomiting & Diarrhea gabapentin AdvReac Nausea & Verified 08/11/22 14:05 Vomiting & Diarrhea Gulyjyd-NBO-VuW Reductase AdvReac Nausea & Verified 08/11/22 14:05 Inhibitor Vomiting & Diarrhea warfarin AdvReac Nausea & Verified 08/11/22 14:05 Vomiting & Diarrhea Physical Exam Vitals: Vital Signs Temp Pulse Resp BP Pulse Ox 08/11/22 17:18 97.8 F 80 20 156/92 96 08/11/22 15:17 75 18 124/71 98 08/11/22 13:46 86 18 138/92 99 08/11/22 09:56 78 20 131/85 96 08/11/22 08:26 96.9 F L 109 H 22 134/94 96 Intake and Output 08/11/22 08/11/22 08/11/22 06:59 14:59 22:59 Other: Weight 102.058 kg Results CBC & Chem 7: 08/11/22 09:33 08/11/22 10:54 Labs: Abnormal Lab Results - Last 24 Hours (Table) 08/11/22 08/11/22 08/11/22 Range/Units 09:33 10:54 10:54 WBC 13.7 H (3.8-10.6) k/uL RBC 6.60 H (4.30-5.90) m/uL Hgb 18.8 H (13.0-17.5) gm/dL Hct 53.8 H (39.0-53.0) % Neutrophils # 11.5 H (1.3-7.7) k/uL Carbon Dioxide 17 L (22-30) mmol/L BUN 37 H (9-20) mg/dL Creatinine 4.38 H (0.66-1.25) mg/dL Glucose 135 H (74-99) mg/dL Plasma Lactic Acid Chacorta 2.2 H* (0.7-2.0) mmol/L Calcium 11.6 H (8.4-10.2) mg/dL Total Protein 9.1 H (6.3-8.2) g/dL Albumin 5.4 H (3.5-5.0) g/dL
[2022-08-11] MEDS: cloNIDine HCL 0.1 MG TAB PO SCH (20:49)
[2022-08-11] MEDS: PREGABALIN 75 MG CAP PO SCH (20:49)
[2022-08-11] MEDS ORDERED: TICAGRELOR 90 MG TAB PO SCH (21:00)
[2022-08-11] MEDS: HYDROmorphone 0.5 MG/0.5 ML SYRINGE IVP PRN (21:01)
[2022-08-12] MEDS: HYDROmorphone 0.5 MG/0.5 ML SYRINGE IVP PRN ×4 (03:18→22:14)
[2022-08-12] MEDS: LEVOTHYROXINE 75 MCG TAB PO SCH (05:49)
[2022-08-12] MEDS: PREGABALIN 75 MG CAP PO SCH ×2 (08:46→21:28)
[2022-08-12] MEDS: ESCITALOPRAM 20 MG TAB PO SCH (08:46)
[2022-08-12] MEDS: ISOSORBIDE MONONITRATE ER 30 MG TAB.ER.24H PO SCH (08:46)
[2022-08-12] MEDS: amLODIPine 10 MG TAB PO SCH (08:46)
[2022-08-12] MEDS: cloNIDine HCL 0.1 MG TAB PO SCH ×2 (08:46→21:28)
[2022-08-12] MEDS ORDERED: ASPIRIN 81 MG PO SCH (09:00)
[2022-08-12] MEDS ORDERED: PANTOPRAZOLE 40 MG/10 ML VIAL IV SCH (09:00)
[2022-08-12] MEDS ORDERED: ENOXAPARIN 30 MG/0.3 ML SYRINGE SQ SCH (09:00)
[2022-08-12] MEDS: SODIUM CHLORIDE 0.9% 1,000 ML IV SCH (09:05)
[2022-08-12 11:40] LABS: BUN/Creat Ratio 19.38 Ratio (12.00-20.00); Blood Urea Nitrogen 40.7 mg/dL (9.0-27.0); Carbon Dioxide 16.6 mmol/L (21.6-31.8); Chloride 102 mmol/L (96-109); Glucose 115 mg/dL (70-110); Potassium 4.2 mmol/L (3.5-5.5); Sodium 135 mmol/L (135-145)
[2022-08-12 11:41] LABS: Calcium 9.6 mg/dL (8.7-10.3)
--- NOTE | 2022-08-12 12:19 | P.NPCON ---
History of Present Illness - Reason for Consult acute renal failure - History of Present Illness Patient is a 67-year-old male with history of hypertension, COPD, coronary artery disease. Patient has had multiple episodes of acute kidney injury associated with severe volume depletion with recurrent episodes of nausea vomiting and diarrhea. Patient has had a colonoscopy about 2-3 years ago and is currently being seen by GI with plans for repeat colonoscopy. No history of fever, chills cough. Patient is not able to identify a triggering agent. Patient did admit that he has been using marijuana on and off for pain control. Serum creatinine was 4.38 on admission and has decreased to 2.1 today. Previous creatinine as low as 0.7 mg/dL on 05/18/2022. Blood pressure was not low. No history of use of NSAIDs. Review of Systems As per HPI Past Medical History Past Medical History: Atrial Fibrillation, Coronary Artery Disease (CAD), Chest Pain / Angina, Deep Vein Thrombosis (DVT), GERD/Reflux, GI Bleed, Hyperlipidemia, Hypertension, Myocardial Infarction (CA), Musculoskeletal Disorder, Osteoarthritis (OA), Pneumonia, Renal Disease, Syncope, Thyroid Disorder Additional Past Medical History / Comment(s): Paroxysmal afib, fell 12 weeks ago and fractured stenum/ribs, episodes of acute renal failure associated with dehydration, ckd stage IV, past melana stools, diverticulitis, IBS, return of hiatal hernia, bronchitis, hypothyroid, chronic low back pain with bilateral sciatica, lumbar DDD, past migraines, DJD, numbness/tingling bilateral legs/feet, 4 DVTs L leg surgically removed. covid + July 2021 Last Myocardial Infarction Date:: 10/15/21 History of Any Multi-Drug Resistant Organisms: None Reported Past Surgical History: Back Surgery, Cholecystectomy, Heart Catheterization, Heart Catheterization With Stent, Hernia Repair, Orthopedic Surgery Additional Past Surgical History / Comment(s): Back fusions L3-L5, ORIF L ankle, L hand fracture with surgery, R knee arthroscopy x2, R elbow tendon release, R shoulder arthroscopy, L shoulder arthroscopy, lumbar spine cyst removed, pain clinic procedures, taylor fundoplication, EGD, colonoscopy, 2019 arteriogram/thrombus extraction at [facility]. PTCA w/ 3 stents now. rt knee replacemnt, right quad repair Past Anesthesia/Blood Transfusion Reactions: No Reported Reaction Date of Last Stent Placement:: 10/15/21 Past Psychological History: No Psychological Hx Reported, Depression Additional Psychological History / Comment(s): Pt resides with his spouse. HE is independent. Smoking Status: Former smoker Past Alcohol Use History: Occasional Additional Past Alcohol Use History / Comment(s): Smoked from 1971 to 1983 SMOKED 1PPD. Pt states he drinks less than 14 drinks per week Past Drug Use History: Marijuana Additional Drug Use History / Comment(s): MEDICAL marijuana - daily. - Past Family History Mother Family Medical History: Thyroid Disorder Additional Family Medical History / Comment(s): Mother is living. Father Family Medical History: Coronary Artery Disease (CAD), Diabetes Mellitus Additional Family Medical History / Comment(s): Father had CABG. He at the age of 84 yrs in a MVA. Sister(s) Family Medical History: Cancer Additional Family Medical History / Comment(s): Sister #1 skin cancer, sister #2 thyroid cancer. Medications and Allergies Home Medications Medication Instructions Recorded Confirmed Type Levothyroxine Sodium [Synthroid] 75 mcg PO DAILY 05/04/16 08/11/22 History Escitalopram [Lexapro] 20 mg PO DAILY 12/16/16 08/11/22 History Nitroglycerin Sl Tabs [Nitrostat] 0.4 mg SL Q5M PRN 07/23/21 08/11/22 History Aspirin 81 mg PO DAILY #30 tab 10/17/21 08/11/22 Rx Ticagrelor [Brilinta] 90 mg PO BID #60 tab 10/17/21 08/11/22 Rx Pantoprazole [Protonix] 40 mg PO AC-BID #60 tab 10/22/21 08/11/22 Rx cloNIDine HCL [Catapres] 0.1 mg PO BID tab 10/22/21 08/11/22 Rx Evolocumab [Repatha Sureclick] 140 mg SQ Q14D 04/20/22 08/11/22 History Isosorbide Mononitrate ER [Imdur] 30 mg PO DAILY 04/20/22 08/11/22 History Pregabalin [Lyrica] 75 mg PO BID 06/10/22 08/11/22 History amLODIPine [Norvasc] 10 mg PO DAILY 06/10/22 08/11/22 History Allergies Allergy/AdvReac Type Severity Reaction Status Date / Time rivaroxaban [From Xarelto] AdvReac Severe Nausea & Verified 08/11/22 14:05 Vomiting & Diarrhea paroxetine HCl [From Paxil] AdvReac Unknown Nausea & Verified 08/11/22 14:05 Vomiting & Diarrhea apixaban [From Eliquis] AdvReac Nausea & Verified 08/11/22 14:05 Vomiting & Diarrhea atorvastatin [From Lipitor] AdvReac Nausea & Verified 08/11/22 14:05 Vomiting & Diarrhea Beta-Blockers AdvReac Nausea & Verified 08/11/22 14:05 (Beta-Adrenergic Bloc Vomiting & Diarrhea gabapentin AdvReac Nausea & Verified 08/11/22 14:05 Vomiting & Diarrhea [id number] Reductase AdvReac Nausea & Verified 08/11/22 14:05 Inhibitor Vomiting & Diarrhea warfarin AdvReac Nausea & Verified 08/11/22 14:05 Vomiting & Diarrhea Physical Exam Vitals: Vital Signs Temp Pulse Pulse Resp BP BP Pulse Ox 08/12/22 07:30 18 08/12/22 01:55 98.0 F 76 18 142/68 93 L 08/11/22 19:20 98.0 F 91 18 135/80 96 08/11/22 17:18 97.8 F 80 20 156/92 96 08/11/22 15:17 75 18 124/71 98 08/11/22 13:46 86 18 138/92 99 Intake and Output 08/11/22 08/12/22 08/12/22 22:59 06:59 14:59 Output Total 422 837 525 Balance -422 -837 -525 Output: Urine 225 202 525 Post Void Residual 197 635 Other: Voiding Method Urinal Urinal # Voids 1 Weight 102.058 kg Patient is awake, comfortable, no acute distress Alert oriented 3 Examination of the heart S1 and S2 Examination the lungs bilateral breath sounds are heard Abdomen is soft nontender Examination lower extremities shows no evidence of edema 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 Acute kidney injury associated with severe volume depletion. Currently improving. UA has always been benign although patient has had trace to 1+ protein recently in April and May 2022. 2. Possible gastroenteritis 3. Rule out GI bleed 4. Metabolic acidosis, anion gap associated with acute kidney injury Plan: Change IV fluids to bicarb drip for about 24 hours and then switch to Ringer lactate Workup as per GI
[2022-08-12] MEDS: DEXTROSE 5% IN WATER 1,000 ML with SODIUM BICARB (1 MEQ/ML) 150 ML IV SCH ×2 (13:11→22:16)
--- NOTE | 2022-08-12 15:58 | P.CONS ---
History of Present Illness - Reason for Consult Consult date: 08/12/22 Nausea and vomiting with blood Requesting physician: Mae Meléndez - Chief Complaint Nausea vomiting - History of Present Illness This is a 67-year-old male who presented to the emergency department with complaints of weakness, fatigue, and nausea and vomiting. He has a past medical history of hypertension, hypertensive cardiovascular disease, hyperlipidemia COPD, hypothyroidism, osteoarthritis, GERD and major depressive and anxiety disorder. Patient was noted to have acute kidney injury on this admission. He states that he had nausea and vomiting multiple times likely every hour on Tuesday. He could not hold down any water. He states he vomited until morning. He states he vomited up coffee ground emesis a may be a cup full. He also had some associated diarrhea before the bottom vomiting, however denied any blood in his stool or black stool. He states that he takes Protonix twice a day at home. He is on aspirin and Brilinta. Last dose of Brilinta on Tuesday. He states he still has abdominal burning sensation, no nausea or vomiting at t his time. He denies any sick contacts. Denies any fevers or chills associated with symptoms. Last EGD colonoscopy February 2019. Upper endoscopy revealed mild antral gastritis and small hiatal hernia. Colonoscopy with findings of multiple polyps status post polypectomy, grade 2 internal hemorrhoids. Labs WBC 13.7 hemoglobin 18.8 hematocrit 53 platelet count 310,000 sodium 135 potassium 4.2 BUN 40 creatinine 2.1 total bilirubin 0.7 AST 30 ALT 30 alkaline phosphatase 126 amylase 59 lipase 104 Review of Systems REVIEW OF SYSTEMS: CARDIOPULMONARY: No chest pain or shortness of breath. Gastrointestinal: Burning sensation/discomfort in the mid to upper abdomen. Nausea and vomiting greater than 24 hours with coffee-ground emesis. Genitourinary: No burning with urination, no hematuria. MUSCULOSKELETAL: Reports normal range of motion., Joint pain. SKIN: No rashes. No jaundice. ENDOCRINE: No chills, fevers. No excessive weight gain or loss. No polydipsia or polyuria. PSYCHIATRIC: Unremarkable. NEUROLOGY: No change in mental status. Denies dizziness, headache. ENT: Vision unremarkable. CONSTITUTIONAL: No recent weight loss. No fever, chills, night sweats. Past Medical History Past Medical History: Atrial Fibrillation, Coronary Artery Disease (CAD), Chest Pain / Angina, Deep Vein Thrombosis (DVT), GERD/Reflux, GI Bleed, Hyperlipidemia, Hypertension, Myocardial Infarction (NM), Musculoskeletal Disorder, Osteoarthritis (OA), Pneumonia, Renal Disease, Syncope, Thyroid Disorder Additional Past Medical History / Comment(s): Paroxysmal afib, fell 12 weeks ago and fractured stenum/ribs, episodes of acute renal failure associated with dehydration, ckd stage IV, past melana stools, diverticulitis, IBS, return of hiatal hernia, bronchitis, hypothyroid, chronic low back pain with bilateral sciatica, lumbar DDD, past migraines, DJD, numbness/tingling bilateral legs/feet, 4 DVTs L leg surgically removed. covid + July 2021 Last Myocardial Infarction Date:: 10/15/21 History of Any Multi-Drug Resistant Organisms: None Reported Past Surgical History: Back Surgery, Cholecystectomy, Heart Catheterization, He art Catheterization With Stent, Hernia Repair, Orthopedic Surgery Additional Past Surgical History / Comment(s): Back fusions L3-L5, ORIF L ankle, L hand fracture with surgery, R knee arthroscopy x2, R elbow tendon release, R shoulder arthroscopy, L shoulder arthroscopy, lumbar spine cyst removed, pain clinic procedures, taylor fundoplication, EGD, colonoscopy, 2019 arteri ogram/thrombus extraction at [facility]. PTCA w/ 3 stents now. rt knee replacemnt, right quad repair Past Anesthesia/Blood Transfusion Reactions: No Reported Reaction Date of Last Stent Placement:: 10/15/21 Past Psychological History: No Psychological Hx Reported, Depression Additional Psychological History / Comment(s): Pt resides with his spouse. HE is independent. Smoking Status: Former smoker Past Alcohol Use History: Occasional Additional Past Alcohol Use History / Comment(s): Smoked from 1971 to 1983 SMOKED 1PPD. Pt states he drinks less than 14 drinks per week Past Drug Use History: Marijuana Additional Drug Use History / Comment(s): MEDICAL marijuana - daily. - Past Family History Mother Family Medical History: Thyroid Disorder Additional Family Medical History / Comment(s): Mother is living. Father Family Medical History: Coronary Artery Disease (CAD), Diabetes Mellitus Additional Family Medical History / Comment(s): Father had CABG. He at the age of 84 yrs in a MVA. Sister(s) Family Medical History: Cancer Additional Family Medical History / Comment(s): Sister #1 skin cancer, sister #2 thyroid cancer. Medications and Allergies Home Medications Medication Instructions Recorded Confirmed Type Levothyroxine Sodium [Synthroid] 75 mcg PO DAILY 05/04/16 08/11/22 History Escitalopram [Lexapro] 20 mg PO DAILY 12/16/16 08/11/22 History Nitroglycerin Sl Tabs [Nitrostat] 0.4 mg SL Q5M PRN 07/23/21 08/11/22 History Aspirin 81 mg PO DAILY #30 tab 10/17/21 08/11/22 Rx Ticagrelor [Brilinta] 90 mg PO BID #60 tab 10/17/21 08/11/22 Rx Pantoprazole [Protonix] 40 mg PO AC-BID #60 tab 10/22/21 08/11/22 Rx cloNIDine HCL [Catapres] 0.1 mg PO BID tab 10/22/21 08/11/22 Rx Evolocumab [Repatha Sureclick] 140 mg SQ Q14D 04/20/22 08/11/22 History Isosorbide Mononitrate ER [Imdur] 30 mg PO DAILY 04/20/22 08/11/22 History Pregabalin [Lyrica] 75 mg PO BID 06/10/22 08/11/22 History amLODIPine [Norvasc] 10 mg PO DAILY 06/10/22 08/11/22 History Allergies Allergy/AdvReac Type Severity Reaction Status Date / Time rivaroxaban [From Xarelto] AdvReac Severe Nausea & Verified 08/11/22 14:05 Vomiting & Diarrhea paroxetine HCl [From Paxil] AdvReac Unknown Nausea & Verified 08/11/22 14:05 Vomiting & Diarrhea apixaban [From Eliquis] AdvReac Nausea & Verified 08/11/22 14:05 Vomiting & Diarrhea atorvastatin [From Lipitor] AdvReac Nausea & Verified 08/11/22 14:05 Vomiting & Diarrhea Beta-Blockers AdvReac Nausea & Verified 08/11/22 14:05 (Beta-Adrenergic Bloc Vomiting & Diarrhea gabapentin AdvReac Nausea & Verified 08/11/22 14:05 Vomiting & Diarrhea Larxedg-HUE-[id number] Reductase AdvReac Nausea & Verified 08/11/22 14:05 Inhibitor Vomiting & Diarrhea warfarin AdvReac Nausea & Verified 08/11/22 14:05 Vomiting & Diarrhea Physical Exam Vitals: Vital Signs Temp Pulse Pulse Resp BP BP Pulse Ox 08/12/22 01:55 98.0 F 76 18 142/68 93 L 08/11/22 19:20 98.0 F 91 18 135/80 96 08/11/22 17:18 97.8 F 80 20 156/92 96 08/11/22 15:17 75 18 124/71 98 08/11/22 13:46 86 18 138/92 99 Intake and Output 08/11/22 08/12/22 08/12/22 22:59 06:59 14:59 Output Total 422 837 200 Balance -422 -837 -200 Output: Urine 225 202 200 Post Void Residual 197 635 Other: Voiding Method Urinal # Voids 1 Weight 102.058 kg Results CBC & Chem 7: 08/11/22 09:33 08/12/22 06:39 Labs: Abnormal Lab Results - Last 24 Hours (Table) 08/11/22 08/11/22 Range/Units 10:54 10:54 Carbon Dioxide 17 L (22-30) mmol/L BUN 37 H (9-20) mg/dL Creatinine 4.38 H (0.66-1.25) mg/dL Glucose 135 H (74-99) mg/dL Plasma Lactic Acid Chacorta 2.2 H* (0.7-2.0) mmol/L Calcium 11.6 H (8.4-10.2) mg/dL Total Protein 9.1 H (6.3-8.2) g/dL Albumin 5.4 H (3.5-5.0) g/dL Assessment and Plan (1) Nausea and vomiting Narrative/Plan: 67-year-old male with a history of GERD who presented to the emergency department complaints of weakness who had multiple episodes of intractable nausea and vomiting for 24 hour duration, with coffee-ground emesis. Patient has a history of GERD with previous EGD in February 2019 with findings of mild antral gastritis and hiatal hernia. Patient has not had any further nausea or vomiting hemoglobin stable but due to complaints of coffee-ground emesis will proceed with upper endoscopy tomorrow. Continue Protonix 40 mg twice a day. Antiemetics as needed. Current Visit: No Status: Acute Code(s): R11.2 - NAUSEA WITH VOMITING, UNSPECIFIED SNOMED Code(s): 16508177 (2) Coffee ground emesis Current Visit: Yes Status: Acute Code(s): K92.0 - HEMATEMESIS SNOMED Code(s): 84918614 (3) Acute kidney injury (nontraumatic) Current Visit: Yes Status: Acute Priority: High Code(s): N17.9 - ACUTE KIDNEY FAILURE, UNSPECIFIED SNOMED Code(s): 635328045251780 (4) GERD (gastroesophageal reflux disease) Current Visit: Yes Status: Acute Code(s): K21.9 - GASTRO-ESOPHAGEAL REFLUX DISEASE WITHOUT ESOPHAGITIS SNOMED Code(s): 124202920 Plan: 1. Continue symptomatic and supportive care 2. Protonix 40 mg twice a day 3. Patient may have diet as tolerated, nothing by mouth after midnight 4. Antiemetics as needed 5. Hold Brilinta 6. Plan for upper endoscopy tomorrow Thank you for this consultation, we will continue to follow. Dr. Carmela Patrick I agree with the dictator's note, documented as a scribe by Brii Yoder.
[2022-08-12] MEDS: PANTOPRAZOLE 40 MG/10 ML VIAL IV SCH (22:14)
[2022-08-13] MEDS: HYDROmorphone 0.5 MG/0.5 ML SYRINGE IVP PRN ×3 (04:37→16:59)
[2022-08-13] MEDS: LEVOTHYROXINE 75 MCG TAB PO SCH (05:38)
[2022-08-13] MEDS ORDERED: LACTATED RINGERS 1,000 ML IV SCH (08:21)
[2022-08-13] MEDS: cloNIDine HCL 0.1 MG TAB PO SCH (09:11)
[2022-08-13] MEDS: amLODIPine 10 MG TAB PO SCH (09:11)
[2022-08-13] MEDS: ESCITALOPRAM 20 MG TAB PO SCH (09:11)
[2022-08-13] MEDS: ISOSORBIDE MONONITRATE ER 30 MG TAB.ER.24H PO SCH (09:11)
[2022-08-13] MEDS: PREGABALIN 75 MG CAP PO SCH (09:11)
[2022-08-13] MEDS: PANTOPRAZOLE 40 MG/10 ML VIAL IV SCH (10:39)
--- NOTE | 2022-08-13 11:15 | P.PN ---
Subjective Patient is seen for follow-up for acute kidney injury mostly prerenal associated with severe volume depletion associated with nausea and vomiting. Patient is maintained on IV fluids Renal function has improved Scheduled for upper endoscopy today. Objective - Vital Signs Vital signs: Vital Signs Temp 97.7 F 08/13/22 06:41 Pulse 67 08/13/22 06:41 Resp 18 08/13/22 06:41 BP 149/69 08/13/22 02:19 Pulse Ox 98 08/13/22 06:41 FiO2 Intake & Output 08/12/22 08/13/22 08/13/22 18:59 06:59 18:59 Output Total 925 2250 325 Balance -925 -2250 -325 Output: Urine 525 2250 325 Post Void Residual 400 Other: Voiding Method Urinal # Voids 3 3 - Exam Patient is awake, comfortable, no acute distress Alert oriented 3 Examination of the heart S1 and S2 Examination the lungs bilateral breath sounds are heard Abdomen is soft nontender Examination lower extremities shows no evidence of edema 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 Acute kidney injury associated with severe volume depletion. Currently improving. UA has always been benign although patient has had trace to 1+ pro tein recently in April and May 2022. 2. Possible gastroenteritis, scheduled for upper endoscopy today 3. Rule out GI bleed, scheduled for upper endoscopy today 4. Metabolic acidosis, anion gap associated with acute kidney injury Plan: Awaiting labs from today to adjust bicarb drip if needed. Workup as per GI
[2022-08-13 11:29] LABS: BUN/Creat Ratio 19.73 Ratio (12.00-20.00); Blood Urea Nitrogen 21.7 mg/dL (9.0-27.0); Calcium 9.3 mg/dL (8.7-10.3); Carbon Dioxide 27.9 mmol/L (21.6-31.8); Chloride 101 mmol/L (96-109); Glucose 134 mg/dL (70-110); Potassium 3.8 mmol/L (3.5-5.5); Sodium 139 mmol/L (135-145)
[2022-08-13 14:32] VITALS: BP 115/73; PULSE 71; RESP 16; TEMP 97.9
[2022-08-13] MEDS: DEXTROSE 5% IN WATER 1,000 ML with SODIUM BICARB (1 MEQ/ML) 150 ML IV SCH (15:14)
[2022-08-13] MEDS ORDERED: LIDOCAINE 2% INJ 20 MG/ML (2 ML VIAL) ONE (15:40)
[2022-08-13] MEDS ORDERED: PROPOFOL 10 MG/ML 20 ML VIAL IV ONE (15:40)
[2022-08-13] MEDS ORDERED: SODIUM CHLORIDE 0.9% 500 ML 500 ML IV ONE ×2 (15:41)
--- NOTE | 2022-08-13 15:59 | P.PCN ---
Date of Procedure: 08/13/22 Procedure(s) Performed: BRIEF HISTORY: Patient is a 67-year-old, pleasant, white female scheduled for an upper endoscopy as a part of evaluation of episodes of coffee-ground emesis associated with epigastric pain and severe heartburn for the last few days duration.. PROCEDURE PERFORMED: Esophagogastroduodenoscopy with biopsy. PREOPERATIVE DIAGNOSIS: Severe epigastric pain and burning and coffee-ground emesis. IV sedation per anesthesia. PROCEDURE: After informed consent was obtained, the patient was brought into the endoscopy unit. IV sedation was administered by Anesthesia under continuous monitoring. Initially the Olympus GIF-140 video endoscope was inserted into the mouth. Esophagus intubated without any difficulty. It was gradually advanced into the stomach and duodenum and carefully examined. The bulb and the second part of the duodenum appeared normal. The scope at this time was withdrawn to the stomach, adequately insufflated with air, and upon careful examination, mucosa of the antrum, body, cardia and the fundus appeared normal. The scope was then withdrawn into the esophagus. Small hiatal hernia noted. The GE junction was located at 39 cm from the incisors. There was a fissure erosions at the distal esophagus consistent with LA grade B reflux esophagitis. Biopsies were done from the distal esophagus Rest of the esophagus appeared normal and the patient tolerated the procedure well. IMPRESSION: 1. Small hiatal hernia. 2. Superficial erosions at the GE junction consistent with LA grade B reflux esophagitis. RECOMMENDATIONS: The findings of this examination were discussed with the patient He will continue Protonix 40 mg twice daily and follow antireflux measures.. Advance diet as tolerated. Patient was advised to follow up in office in 2-3 weeks following discharge from the hospital
--- NOTE | 2022-08-13 16:09 | P.PN ---
Subjective Progress Note Date: 08/12/22 HISTORY OF PRESENT ILLNESS: This is a 67-year-old male with a previous medical history significant for hypertension and hypertensive cardiovascular disease, hyperlipidemia, chronic obstructive pulmonary disease, CAD, hypothyroidism, osteoarthritis status post right total knee arthroplasty, GERD with esophagitis, major depressive disorder and anxiety disorder. Patient had recent hospitalization in April of this year which time he presented with acute kidney injury and seen by nephrology, ultrasound showed no evidence of hydronephrosis. Patient was stabilized and discharged, apparently patient slid and fell at home 3 weeks ago and ended up getting his quad tendon tear and he was sent [facility] with and had intraparenchymal bleed that was resolved patient ended up admitted to the hospital multiple times after that after he was getting off the pain medication thought due to withdrawal from codeine, at this point in time patient has not been taking any pain medication, but he stated that he is been using marijuana on and off for pain control, since he is not taking any pain medication at this time, he stated that he was in his usual state of health about yesterday in the morning when he woke up in the morning and he felt nauseated and broke down in sweat and started to have a significant violent vomiting associated with significant heartburn, patient stated that he has some blood in his vomitus, patient ended up coming to the emergency department today with generalized fatigue and weakness, he was found to have an acute kidney injury and top of chronic kidney disease, and because of the presentation he was admitted to the hospital for evaluation by nephrology as well as was gastric urology, patient was supposed to go for an upper endoscopy for further evaluation of his had a hernia rule out any peptic ulcer disease 08/12: patient is sitting up in chair his feeling a bit better today than yesterday, he denies any chest pain, or any shortness breath, he continues to be on IV fluid, his creatinine is down a bit, he is scheduled to go for upper endoscopy with Dr. Patrick today for possible upper GI bleed, we will monitor the patient hospital for another 24 hours, when his creatinine and his procedures over he can be discharged home in the next 24 hours per he REVIEW OF SYSTEMS: Constitutional: No documented fever, no chills, no night sweats. No weight change. positive for weakness, fatigue no lethargy. No daytime sleepiness. HEENT: No headache. No blurred vision or double vision, no loss of vision. No loss of Hearing, no ringing in the ears, no dizziness. No nasal drainage or congestion. No epistaxis. No sore throat. Lungs: No shortness of breath, no cough, no sputum production. No wheezing. Reports dyspnea with activity. Cardiovascular: No chest pain, no lower extremity edema. No palpitations. No paroxysmal nocturnal dyspnea. No orthopnea. No lightheadedness or dizziness. No syncopal episodes. Abdominal: Reports abdominal pain. positive for nausea, vomiting. no diarrhea. No constipation. No bloody or tarry stools reports loss of appetite, reports blood in the vomit Genitourinary: No dysuria, increased frequency, urgency. No urinary retention. Musculoskeletal: No myalgias. positive for muscle weakness and leg cramps , no gait dysfunction, no frequent falls. No back pain. No neck pain. Integumentary: No wounds, no lesions. No rash or pruritus. No unusual bruising. No change in hair or nails. Neurologic: No aphasia. No facial droop. No change in mentation. No head injury. No headache. No paralysis. No paresthesia. Psychiatric: positive for depression. No anxiety. No mood swings. Endocrine: No abnormal blood sugars. No weight change. PHYSICAL EXAMINATION: General: 67-year-old male laying down in bed in no distress. HEENT: Head is atraumatic, normocephalic, pupils were equal round reactive to light and recommendation, extraocular muscle movement were intact, sclera nonicteric, conjunctivae were pale, mucous membranes of the mouth are somewhat dry. Neck: Supple, no JVP, normal carotid upstroke bilaterally, no lymphadenopathy. Chest: Decreased breath sounds at the bases, few rhonchi, minimal expiratory wheezes, no chest wall tenderness, no intercostal retractions. Heart: First heart sound is normal, second heart sound is normal there is LUIS 2/6 located at the left sternal border. Abdomen: Soft, nontender, nondistended, positive bowel sounds. Extremities: There is no edema no calf tenderness DP +2 bilaterally. Neurologic examination: Patient is awake alert and oriented X 3, cranial nerves II-12 appear grossly intact, muscle power were 5 out of 5 in upper extremities and 5 out of 5 in bilateral lower extremities, deep tendon reflexes normal bilaterally. ASSESSMENT AND PLAN: 1. Acute kidney injury due to acute tubular necrosis due to gastrointestinal fluid loss and. Patient will be started on IV fluid in the form of normal saline at 100 cc/h continue to monitor CMP over the next 24 hours. 2. upper GI bleed. Continue patient on Protonix 40 mg IV push every 24 hours, hold the patient Brilinta and ASA , patient will undergo EGD today. 3. Coronary artery disease status post multiple PCI's. Hold Brilinta and ASA continue patient on isosorbide mononitrate 30 mg once every day, continue Repatha 140 mg subcu venously every 2 weeks, monitor lipid panel, keep LDL 5570. 4. Hypertension and hypertensive cardiovascular disease. Continue patient on amlodipine 5 mg orally twice every day, continue patient on clonidine 0.1 mg or ally twice every day, monitor the patient blood pressure very closely. 5. Mixed hyperlipidemia. Patient is intolerant to statins. Continue with Repatha 140 mg subcutaneously every 2 weeks keep LDL less than 50 6. Hypothyroidism. Continue Synthroid 75 g orally once every day. 7. GERD with esophagitis and hiatal hernia. Continue patient on pantoprazole 40 mg IVP daily. 8. Anxiety and depressive disorder. Continue patient on Escitalopram 20 mg orally once every day . 9. DVT prophylaxis. Continue patient on Lovenox 30 mg subcutaneously every 24 hours. 10. GI prophylaxis. Continue PPI. 11. hopefully home tomorrow morning. Objective - Vital Signs Vital signs: Vital Signs Temp 97.9 F 08/13/22 14:00 Pulse 71 08/13/22 14:00 Resp 16 08/13/22 14:00 BP 115/73 08/13/22 14:00 Pulse Ox 95 08/13/22 14:00 FiO2 Intake & Output 08/12/22 08/13/22 08/13/22 18:59 06:59 18:59 Intake Total 150 Output Total 927 2250 325 Balance -918 -1457 -175 Intake: IV 150 Output: Urine 525 2250 325 Post Void Residual 400 Other: Voiding Method Urinal # Voids 3 3 - Labs CBC & Chem 7: 08/11/22 09:33 08/13/22 07:24 Labs: Abnormal Lab Results - Last 24 Hours (Table) 08/13/22 Range/Units 07:24 Glucose 134 H (70-110) mg/dL
[2022-08-13] MEDS ORDERED: Evolocumab [Repatha Sureclick] 140 MG/ML Each SQ SCH (16:15)
[2022-08-13] MEDS ORDERED: PANTOPRAZOLE 40 MG TABLET PO SCH (17:30)
--- NOTE | 2022-08-13 18:33 | P.DS ---
Providers Date of admission: 08/11/22 12:06 Expected date of discharge: 08/13/22 Attending physician: Sammie Mercedes Consults: 08/11/22 11:54 Consult Physician Urgent Consulting Provider: Rafaela Browne Consult Reason/Comments: Acute kidney injury Do you want consulting provider notified?: Yes 08/11/22 15:29 Consult Physician Routine Consulting Provider: Caridad Patrick Consult Reason/Comments: intractable vomiting w blood Do you want consulting provider notified?: Yes Primary care physician: Sammie Mercedes Hospital Course: HISTORY OF PRESENT ILLNESS: This is a 67-year-old male with a previous medical history significant for hypertension and hypertensive cardiovascular disease, hyperlipidemia, chronic obstructive pulmonary disease, CAD, hypothyroidism, osteoarthritis status post right total knee arthroplasty, GERD with esophagitis, major depressive disorder and anxiety disorder. Patient had recent hospitalization in April of this year which time he presented with acute kidney injury and seen by nephrology, ultrasound showed no evidence of hydronephrosis. Patient was stabilized and discharged, apparently patient slid and fell at home 3 weeks ago and ended up getting his quad tendon tear and he was sent [facility] with and had intraparenchymal bleed that was resolved patient ended up admitted to the hospital multiple times after that after he was getting off the pain medication thought due to withdrawal from codeine, at this point in time patient has not been taking any pain medication, but he stated that he is been using marijuana on and off for pain control, since he is not taking any pain medication at this time, he stated that he was in his usual state of health about yesterday in the morning when he woke up in the morning and he felt nauseated and broke down in sweat and started to have a significant violent vomiting associated with significant heartburn, patient stated that he has some blood in his vomitus, patient ended up coming to the emergency department today with generalized fatigue and weakness, he was found to have an acute kidney injury and top of chronic kidney disease, and because of the presentation he was admitted to the hospital for evaluation by nephrology as well as was gastric urology, patient was supposed to go for an upper endoscopy for further evaluation of his had a hernia rule out any peptic ulcer disease 08/12: patient is sitting up in chair his feeling a bit better today than yesterday, he denies any chest pain, or any shortness breath, he continues to be on IV fluid, his creatinine is down a bit, he is scheduled to go for upper endoscopy with Dr. Patrick today for possible upper GI bleed, we will monitor the patient hospital for another 24 hours, when his creatinine and his procedures over he can be discharged home in the next 24 hours per he 08/13: patient is doing a lot better, he denies any chest pain, shortness breath, he denies any abdominal pain, he did have EGD yesterday that showed evidence of the erosive ulcerations due to gastric esophageal reflux disease, patient currently on Protonix 40 mg IV push every 12 hours we'll switch that to 40 mg orally twice every day, patient can be discharged home if okay with GI and nephrology. His creatinine is back to baseline 1.1. Discharge diagnoses: 1. Acute kidney injury due to acute tubular necrosis due to gastrointestinal fluid loss and. 2. upper GI bleed. Post EGD that showed superficial erosive ulceration due to reflux esophagitis. 3. Coronary artery disease status post multiple PCI's. 4. Hypertension and hypertensive cardiovascular disease. 5. Mixed hyperlipidemia. 6. Hypothyroidism. 7. GERD with esophagitis and hiatal hernia. 8. Anxiety and depressive disorder. Patient Condition at Discharge: Fair Plan - Discharge Summary Discharge Rx Participant: No New Discharge Prescriptions: No Action Levothyroxine Sodium [Synthroid] 75 mcg PO DAILY Escitalopram [Lexapro] 20 mg PO DAILY Ticagrelor [Brilinta] 90 mg PO BID #60 tab Pantoprazole [Protonix] 40 mg PO AC-BID #60 tab cloNIDine HCL [Catapres] 0.1 mg PO BID tab Isosorbide Mononitrate ER [Imdur] 30 mg PO DAILY Pregabalin [Lyrica] 75 mg PO BID Nitroglycerin Sl Tabs [Nitrostat] 0.4 mg SL Q5M PRN PRN Reason: Chest Pain Aspirin 81 mg PO DAILY #30 tab Evolocumab [Repatha Sureclick] 140 mg SQ Q14D amLODIPine [Norvasc] 10 mg PO DAILY Discharge Medication List Levothyroxine Sodium [Synthroid] 75 mcg PO DAILY 05/04/16 [History] Escitalopram [Lexapro] 20 mg PO DAILY 12/16/16 [History] Nitroglycerin Sl Tabs [Nitrostat] 0.4 mg SL Q5M PRN 07/23/21 [History] Aspirin 81 mg PO DAILY #30 tab 10/17/21 [Rx] Ticagrelor [Brilinta] 90 mg PO BID #60 tab 10/17/21 [Rx] Pantoprazole [Protonix] 40 mg PO AC-BID #60 tab 10/22/21 [Rx] cloNIDine HCL [Catapres] 0.1 mg PO BID tab 10/22/21 [Rx] Evolocumab [Repatha Sureclick] 140 mg SQ Q14D 04/20/22 [History] Isosorbide Mononitrate ER [Imdur] 30 mg PO DAILY 04/20/22 [History] Pregabalin [Lyrica] 75 mg PO BID 06/10/22 [History] amLODIPine [Norvasc] 10 mg PO DAILY 06/10/22 [History] Follow up Appointment(s)/Referral(s): Sammie Mercedes MD [Primary Care Provider] - 1-2 days
== END 2022-08-13 18:57 | disposition home or self-care (01) | DRG 682 ==
LOC: EC 08:23 → 4SSUR 12:06
PROVIDERS: ADMIT Internal Medicine; ATTEND Internal Medicine
PROC: 0DB48ZX Excision of Esophagogastric Junction, Via Natural or Artificial Opening Endoscopic, Diagnostic (ICD-10-PCS; principal; 2022-08-13 07:30)
DX: N17.0 Acute kidney failure with tubular necrosis (principal); K21.01 Gastro-esophageal reflux disease with esophagitis, with bleeding; K22.11 Ulcer of esophagus with bleeding; E87.20 Acidosis, unspecified; N18.4 Chronic kidney disease, stage 4 (severe); E03.9 Hypothyroidism, unspecified; Z79.890 Hormone replacement therapy; E78.2 Mixed hyperlipidemia; E86.0 Dehydration; F32.A Depression, unspecified; F41.9 Anxiety disorder, unspecified; I13.10 Hypertensive heart and chronic kidney disease without heart failure, with stage 1 through stage 4 chronic kidney disease, or unspecified chronic kidney disease; I48.0 Paroxysmal atrial fibrillation; K44.9 Diaphragmatic hernia without obstruction or gangrene; K29.70 Gastritis, unspecified, without bleeding; G89.29 Other chronic pain; M51.36 Other intervertebral disc degeneration, lumbar region; G43.909 Migraine, unspecified, not intractable, without status migrainosus; M54.32 Sciatica, left side; M54.31 Sciatica, right side; I25.10 Atherosclerotic heart disease of native coronary artery without angina pectoris; E11.22 Type 2 diabetes mellitus with diabetic chronic kidney disease; I25.2 Old myocardial infarction; J44.9 Chronic obstructive pulmonary disease, unspecified; M54.9 Dorsalgia, unspecified; E86.9 Volume depletion, unspecified; K58.9 Irritable bowel syndrome, unspecified; M19.90 Unspecified osteoarthritis, unspecified site; Z87.01 Personal history of pneumonia (recurrent); Z96.651 Presence of right artificial knee joint; Z79.01 Long term (current) use of anticoagulants; Z87.19 Personal history of other diseases of the digestive system; Z91.81 History of falling; Z86.14 Personal history of Methicillin resistant Staphylococcus aureus infection; Z86.16 Personal history of COVID-19; Z79.02 Long term (current) use of antithrombotics/antiplatelets; Z79.82 Long term (current) use of aspirin; Z79.899 Other long term (current) drug therapy; Z80.8 Family history of malignant neoplasm of other organs or systems; Z82.49 Family history of ischemic heart disease and other diseases of the circulatory system; Z86.73 Personal history of transient ischemic attack (TIA), and cerebral infarction without residual deficits; Z90.49 Acquired absence of other specified parts of digestive tract; Z87.891 Personal history of nicotine dependence; Z88.8 Allergy status to other drugs, medicaments and biological substances
CPT/HCPCS: 36415; 43239; 51798; 76770; 80048; 80053; 82150; 83605; 83690; 85025; 96361; 96374; 96375; 96376; 99285

== ENCOUNTER → 2022-08-26 | Outpatient (CLI) | payer MEDICARE ==
[2022-08-26 16:21] LABS: ALT 24 U/L (10-49); AST 19 U/L (14-35); Chol/HDL Ratio 2.41 Ratio; LDL Cholesterol,Calculated 58.4 mg/dL (0.0-131.0)
== END | disposition home or self-care (01) ==
LOC: LABWHC1 09:20
PROVIDERS: ATTEND Internal Medicine Cardiovascular Disease
DX: E78.2 Mixed hyperlipidemia (principal)
CPT/HCPCS: 36415; 80061; 84450; 84460

== ENCOUNTER 2022-09-24 02:23 | Inpatient (IN) | payer MEDICARE ==
[2022-09-24] MEDS ORDERED: SODIUM CHLORIDE 0.9% 1,000 ML IV STA (02:36)
[2022-09-24] MEDS ORDERED: ONDANSETRON 4 MG/2 ML VIAL IVP STA (02:36)
--- NOTE | 2022-09-24 02:47 | ED ---
General Adult HPI - General Chief complaint: Nausea/Vomiting/Diarrhea Stated complaint: Vomiting, cramps Time Seen by Provider: 09/24/22 02:29 Source: patient Mode of arrival: ambulatory Limitations: no limitations - History of Present Illness Initial comments: 67-year-old male presenting with chief complaint of nausea and vomiting. States that he has been vomiting for last 24 hours. States that initially started with lower abdominal cramping. States that he had a bowel movement and then started profusely sweating. He is continuing to have lower abdominal cramping. Denies diarrhea. Denies fevers or chills. Denies URI-like symptoms. Denies chest pain or difficulty breathing. - Related Data Home Medications Medication Instructions Recorded Confirmed Levothyroxine Sodium [Synthroid] 75 mcg PO DAILY 05/04/16 09/24/22 Escitalopram [Lexapro] 20 mg PO DAILY 12/16/16 09/24/22 Nitroglycerin Sl Tabs [Nitrostat] 0.4 mg SL Q5M PRN 07/23/21 09/24/22 Evolocumab [Repatha Sureclick] 140 mg SQ Q14D 04/20/22 09/24/22 Isosorbide Mononitrate ER [Imdur] 30 mg PO DAILY 04/20/22 09/24/22 Pregabalin [Lyrica] 75 mg PO BID 06/10/22 09/24/22 amLODIPine [Norvasc] 10 mg PO DAILY 06/10/22 09/24/22 Clopidogrel [Plavix] 75 mg PO DAILY 09/24/22 09/24/22 Dicyclomine [Bentyl] 10 mg PO TID PRN 09/24/22 09/24/22 Previous Rx's Medication Instructions Recorded Aspirin 81 mg PO DAILY #30 tab 10/17/21 Ticagrelor [Brilinta] 90 mg PO BID #60 tab 10/17/21 Pantoprazole [Protonix] 40 mg PO AC-BID #60 tab 10/22/21 cloNIDine HCL [Catapres] 0.1 mg PO BID tab 10/22/21 Allergies Allergy/AdvReac Type Severity Reaction Status Date / Time rivaroxaban [From Xarelto] AdvReac Severe Nausea & Verified 09/24/22 07:46 Vomiting & Diarrhea paroxetine HCl [From Paxil] AdvReac Unknown Nausea & Verified 09/24/22 07:46 Vomiting & Diarrhea apixaban [From Eliquis] AdvReac Nausea & Verified 09/24/22 07:46 Vomiting & Diarrhea atorvastatin [From Lipitor] AdvReac Nausea & Verified 09/24/22 07:46 Vomiting & Diarrhea Beta-Blockers AdvReac Nausea & Verified 09/24/22 07:46 (Beta-Adrenergic Bloc Vomiting & Diarrhea gabapentin AdvReac Nausea & Verified 09/24/22 07:46 Vomiting & Diarrhea [id number] Reductase AdvReac Nausea & Verified 09/24/22 07:46 Inhibitor Vomiting & Diarrhea warfarin AdvReac Nausea & Verified 09/24/22 07:46 Vomiting & Diarrhea Review of Systems ROS Statement: Those systems with pertinent positive or pertinent negative responses have been documented in the HPI. ROS Other: All systems not noted in ROS Statement are negative. Past Medical History Past Medical History: Atrial Fibrillation, Coronary Artery Disease (CAD), Chest Pain / Angina, Deep Vein Thrombosis (DVT), GERD/Reflux, GI Bleed, Hyperlipidem ia, Hypertension, Myocardial Infarction (AK), Musculoskeletal Disorder, Osteoarthritis (OA), Pneumonia, Renal Disease, Syncope, Thyroid Disorder Additional Past Medical History / Comment(s): Paroxysmal afib, fell 12 weeks ago and fractured stenum/ribs, episodes of acute renal failure associated with dehydration, ckd stage IV, past melana stools, diverticulitis, IBS, return of hiatal hernia, bronchitis, hypothyroid, chronic low back pain with bilateral sciatica, lumbar DDD, past migraines, DJD, numbness/tingling bilateral legs/feet, 4 DVTs L leg surgically removed. covid + July 2021 Last Myocardial Infarction Date:: 10/15/21 History of Any Multi-Drug Resistant Organisms: None Reported Past Surgical History: Back Surgery, Cholecystectomy, Heart Catheterization, Heart Catheterization With Stent, Hernia Repair, Orthopedic Surgery Additional Past Surgical History / Comment(s): Back fusions L3-L5, ORIF L ankle, L hand fracture with surgery, R knee arthroscopy x2, R elbow tendon release, R shoulder arthroscopy, L shoulder arthroscopy, lumbar spine cyst removed, pain c linic procedures, taylor fundoplication, EGD, colonoscopy, 2019 arteriogram/thrombus extraction at [facility]. PTCA w/ 3 stents now. rt knee replacemnt, right quad repair Past Anesthesia/Blood Transfusion Reactions: No Reported Reaction Date of Last Stent Placement:: 10/15/21 Past Psychological History: No Psychological Hx Reported, Depression Smoking Status: Former smoker Past Alcohol Use History: Occasional Past Drug Use History: Marijuana - Past Family History Mother Family Medical History: Thyroid Disorder Additional Family Medical History / Comment(s): Mother is living. Father Family Medical History: Coronary Artery Disease (CAD), Diabetes Mellitus Additional Family Medical History / Comment(s): Father had CABG. He at the age of 84 yrs in a MVA. Sister(s) Family Medical History: Cancer Additional Family Medical History / Comment(s): Sister #1 skin cancer, sister #2 thyroid cancer. General Exam Limitations: no limitations General appearance: alert, in no apparent distress Head exam: Present: atraumatic, normocephalic, normal inspection Eye exam: Present: normal appearance, EOMI Neck exam: Present: normal inspection, full ROM Respiratory exam: Present: normal lung sounds bilaterally. Absent: respiratory distress, wheezes, rales, rhonchi, stridor Cardiovascular Exam: Present: regular rate, normal rhythm, normal heart sounds. Absent: systolic murmur, diastolic murmur, rubs, gallop, clicks GI/Abdominal exam: Present: soft, tenderness. Absent: distended, guarding, rebound, rigid Neurological exam: Present: alert, oriented X3, CN II-XII intact Psychiatric exam: Present: normal affect, normal mood Skin exam: Present: warm, dry, intact, normal color. Absent: rash Course Vital Signs 09/24/22 09/24/22 09/24/22 02:24 03:25 09:00 Temperature 97.8 F 98 F Pulse Rate 117 H 80 78 Respiratory 20 22 19 Rate Blood Pressure 131/93 128/90 129/82 O2 Sat by Pulse 97 96 Oximetry 09/24/22 10:57 Temperature 98.1 F Pulse Rate 79 Respiratory 18 Rate Blood Pressure 122/87 O2 Sat by Pulse 98 Oximetry Medical Decision Making - Medical Decision Making Was pt. sent in by a medical professional or institution (, PA, PATIENT SCHEDULING MANAGER, urgent care, hospital, or long term...) When possible be specific @ -No Did you speak to anyone other than the patient for history (EMS, parent, family, police, friend...)? What history was obtained from this source @ -No Did you review nursing and triage notes (agree or disagree)? Why? @ -I reviewed and agree with nursing and triage notes Were old charts reviewed (outside hosp., previous admission, EMS record, old EKG, old radiological studies, urgent care reports/EKG's, long term records)? Report findings @ -No old charts were reviewed Differential Diagnosis (chest pain, altered mental status, abdominal pain women, abdominal pain men, vaginal bleeding, weakness, fever, dyspnea, syncope, headache, dizziness, GI bleed, back pain, seizure, CVA, palpatations, mental health, musculoskeletal)? @ -MDM Differential Abdominal Pain Men: Appendicitis, cholecystitis, diverticulosis, ischemic bowel, pancreatitis, hepatitis, UTI, gastroenteritis, AAA, incarcerated hernia, bowel obstruction, constipation, inflammatory bowel, hepatitis, peptic ulcer disease, splenic infarction, perforated viscus, testicular torsion... This is not meant to be an all-inclusive list EKG interpreted by me (3pts min.). @ -As above X-rays interpreted by me (1pt min.). @ -None done CT interpreted by me (1pt min.). @ -CT shows moderate fluid distention of the stomach. Apparently wall thic kening involving the gastric pylorus and/or duodenal bulb U/S interpreted by me (1pt. min.). @ -None done What testing was considered but not performed or refused? (CT, X-rays, U/S, labs)? Why? @ -None What meds were considered but not given or refused? Why? @ -None Did you discuss the management of the patient with other professionals (professionals i.e. , PA, PATIENT SCHEDULING MANAGER, lab, RT, psych nurse, social services manager, telephone lineman, teacher, parking officer, caser shoe parts)? Give summary @ -Spoke with Dr. Mercedes who accepted admission Was smoking cessation discussed for >3mins.? @ -No Was critical care preformed (if so, how long)? @ -No Were there social determinants of health that impacted care today? How? (Homelessness, low income, unemployed, alcoholism, drug addiction, transportation, low edu. Level, literacy, decrease access to med. care, retirement, rehab)? @ -No Was there de-escalation of care discussed even if they declined (Discuss DNR or withdrawal of care, Hospice)? DNR status @ -No What co-morbidities impacted this encounter? (DM, HTN, Smoking, COPD, CAD, Cancer, CVA, ARF, Chemo, Hep., AIDS, mental health diagnosis, sleep apnea, morbid obesity)? @ -None Was patient admitted / discharged? Hospital course, mention meds given and route, prescriptions, significant lab abnormalities, going to OR and other pertinent info. @ -59-year-old male presenting to chief complaint of nausea and vomiting ongoing for the last 24 hours. Admits to lower abdominal cramping. Lab work shows WBC 13.7, may be reactive. Creatinine 3.47 and BUN 24, patient has history of acute renal failure and has come in on multiple occasions with si milar symptoms. He'll be admitted for JOSIE. He is agreeable to this plan. I discussed this case with my attending Dr. Mahan. Undiagnosed new problem with uncertain prognosis? @ -No Drug Therapy requiring intensive monitoring for toxicity (Heparin, Nitro, Insulin, Cardizem)? @ -No Were any procedures done? @ -No Diagnosis/symptom? @ -Acute kidney injury Acute, or Chronic, or Acute on Chronic? @ -Acute Uncomplicated (without systemic symptoms) or Complicated (systemic symptoms)? @ -Complicated Side effects of treatment? @ -No Exacerbation, Progression, or Severe Exacerbation? @ -No Poses a threat to life or bodily function? How? (Chest pain, USA, AK, pneumonia, PE, COPD, DKA, ARF, appy, cholecystitis, CVA, Diverticulitis, Homicidal, Suicidal, threat to staff... and all critical care pts) @ -Yes - Lab Data Result diagrams: 09/24/22 02:43 09/24/22 02:43 Lab Results 09/24/22 09/24/22 Range/Units 02:43 02:43 WBC 13.7 H (3.8-10.6) k/uL RBC 6.23 H (4.30-5.90) m/uL Hgb 18.2 H (13.0-17.5) gm/dL Hct 51.8 (39.0-53.0) % MCV 83.2 (80.0-100.0) fL MCH 29.3 (25.0-35.0) pg MCHC 35.2 (31.0-37.0) g/dL RDW 15.3 (11.5-15.5) % Plt Count 274 (150-450) k/uL MPV 8.2 Neutrophils % 78 % Lymphocytes % 14 % Monocytes % 6 % Eosinophils % 1 % Basophils % 0 % Neutrophils # 10.7 H (1.3-7.7) k/uL Lymphocytes # 1.9 (1.0-4.8) k/uL Monocytes # 0.8 (0-1.0) k/uL Eosinophils # 0.1 (0-0.7) k/uL Basophils # 0.0 (0-0.2) k/uL Sodium 139 (137-145) mmol/L Potassium 4.1 (3.5-5.1) mmol/L Chloride 101 (98-107) mmol/L Carbon Dioxide 12 L (22-30) mmol/L Anion Gap 26 mmol/L BUN 24 H (9-20) mg/dL Creatinine 3.47 H (0.66-1.25) mg/dL Est GFR (CKD-EPI)AfAm 20 (>60 ml/min/1.73 sqM) Est GFR (CKD-EPI)NonAf 17 (>60 ml/min/1.73 sqM) Glucose 200 H (74-99) mg/dL Calcium 11.8 H (8.4-10.2) mg/dL Total Bilirubin 1.3 (0.2-1.3) mg/dL AST 31 (17-59) U/L ALT 35 (4-49) U/L Alkaline Phosphatase 150 H (38-126) U/L Total Protein 10.3 H (6.3-8.2) g/dL Albumin 6.0 H (3.5-5.0) g/dL Amylase 56 (30-110) U/L Lipase 112 (23-300) U/L Disposition Clinical Impression: Acute kidney failure Disposition: ADMITTED IP TO THIS HOSP Condition: Fair Time of Disposition: 04:03
[2022-09-24] MEDS ORDERED: KETOROLAC 15 MG/ML 1 ML VIAL IVP STA (02:53)
[2022-09-24 02:54] LABS: Basophils % (A) 0 %; Eosinophils # (A) 0.1 k/uL (0-0.7); Eosinophils % (A) 1 %; HCT 51.8 % (39.0-53.0); HGB 18.2 gm/dL (13.0-17.5); Lymphocytes # (A) 1.9 k/uL (1.0-4.8); Lymphocytes % (A) 14 %; MCH 29.3 pg (25.0-35.0); MCHC 35.2 g/dL (31.0-37.0); MCV 83.2 fL (80.0-100.0); Mean Platelet Volume 8.2; Monocytes # (A) 0.8 k/uL (0-1.0); Monocytes % (A) 6 %; Neutrophils # (A) 10.7 k/uL (1.3-7.7); Neutrophils % (A) 78 %; Platelet Count 274 k/uL (150-450); RBC 6.23 m/uL (4.30-5.90); RDW 15.3 % (11.5-15.5); WBC 13.7 k/uL (3.8-10.6)
[2022-09-24 03:03] LABS: ALT 35 U/L (4-49); AST 31 U/L (17-59); African American GFR (CKD) 20 (>60 ml/min/1.73 sqM); Alkaline Phosphatase 150 U/L (38-126); Amylase 56 U/L (30-110); Anion Gap 26 mmol/L; Blood Urea Nitrogen 24 mg/dL (9-20); Calcium 11.8 mg/dL (8.4-10.2); Carbon Dioxide 12 mmol/L (22-30); Chloride 101 mmol/L (98-107); Glucose 200 mg/dL (74-99); Lipase 112 U/L (23-300); Non-African American GFR(CKD) 17 (>60 ml/min/1.73 sqM); Potassium 4.1 mmol/L (3.5-5.1); Sodium 139 mmol/L (137-145); Total Bilirubin 1.3 mg/dL (0.2-1.3); Total Protein 10.3 g/dL (6.3-8.2)
[2022-09-24] MEDS ORDERED: HYDROmorphone 1 MG/ML 1 ML SYRINGE IVP STA (03:53)
[2022-09-24] MEDS ORDERED: NALOXONE 0.4 MG/ML 1 ML VIAL IV PRN (04:01)
[2022-09-24] MEDS ORDERED: ONDANSETRON 4 MG/2 ML VIAL IVP PRN (04:01)
[2022-09-24] MEDS ORDERED: SODIUM CHLORIDE 0.9% 1,000 ML IV SCH (04:15)
--- NOTE | 2022-09-24 07:25 | CT ---
EXAMINATION TYPE: CT abdomen pelvis wo con DATE OF EXAM: 09/24/2022 COMPARISON: 07/27/2022 HISTORY: lower abdominal pain Examination of the solid and hollow viscera is limited given the lack of contrast. FINDINGS: LUNG BASES: No evidence for nodule. No evidence for infiltrate. LIVER/GB: Simple hepatic cyst is redemonstrated. The gallbladder is surgically absent. PANCREAS: No pancreatic mass identified. No inflammatory process seen. SPLEEN: No evidence for splenomegaly. No intrasplenic lesions seen. ADRENALS: No adrenal nodules identified. No evidence for thickening. KIDNEYS: No evidence for renal mass. No nephrolithiasis. No hydronephrosis. BOWEL: Nonvisualization of the appendix. Scattered colonic diverticulosis without diverticulitis. No evidence of bowel obstruction. No inflammatory process. There is moderate fluid distention of the sto mach. Apparent wall thickening involving the gastric pylorus and/or duodenal bulb. Consider direct vi sualization if felt to be indicated. Lymph nodes: No evidence for adenopathy greater than 1 cm. Abdominal aorta: Atheromatous changes seen. No evidence for aneurysm. Genital organs: No significant abnormality. Other: Postoperative changes lumbar spine. IMPRESSION: 1.There is moderate fluid distention of the stomach. Apparent wall thickening involving the gastric p ylorus and/or duodenal bulb. Consider direct visualization if felt to be indicated
[2022-09-24] MEDS: MORPHINE SULFATE 4 MG/ML SYRINGE IV PRN ×4 (08:31→23:05)
--- NOTE | 2022-09-24 11:19 | P.NPCON ---
History of Present Illness - Reason for Consult acute renal failure - History of Present Illness Patient is a 67-year-old male admitted to the hospital with complaints of nausea vomiting. Patient did have a few loose bowel movements as well. He had abdominal pain. No history of fevers or chills. No history of cough or chest pain. Patient has had previous episodes of acute kidney injury associated with volume depletion and previous episodes of gastroenteritis. Workup previously has been negative multiple times. Serum creatinine peaks at around 3-4 mg/dL and is usually down by the next day to 0.7 and 0.8 mg/dL with IV hydration. UA has been completely benign Jarod at next Serum creatinine 3.47 this admission. CO2 was 12. Systolic blood pressure 120s to 130s. Patient states he is voiding. Past Medical History Past Medical History: Atrial Fibrillation, Coronary Artery Disease (CAD), Chest Pain / Angina, Deep Vein Thrombosis (DVT), GERD/Reflux, GI Bleed, Hyperlipidemia, Hypertension, Myocardial Infarction ([place]), Musculoskeletal Disorder, Osteoarthritis (OA), Pneumonia, Renal Disease, Syncope, Thyroid Disorder Additional Past Medical History / Comment(s): Paroxysmal afib (taking plavix), fell 12 weeks ago and fractured stenum/ribs, episodes of acute renal failure associated with dehydration, ckd stage IV, past melana stools, diverticulitis, IBS, return of hiatal hernia, bronchitis, hypothyroid, chronic low back pain w ith bilateral sciatica, lumbar DDD, past migraines, DJD, numbness/tingling bilateral legs/feet, 4 DVTs L leg surgically removed. covid + July 2021 Last Myocardial Infarction Date:: 10/15/21 History of Any Multi-Drug Resistant Organisms: None Reported Past Surgical History: Back Surgery, Cholecystectomy, Heart Catheterization, Heart Catheterization With Stent, Hernia Repair, Orthopedic Surgery Additional Past Surgical History / Comment(s): Back fusions L3-L5, ORIF L ankle, L hand fracture with surgery, R knee arthroscopy x2, R elbow tendon release, R shoulder arthroscopy, L shoulder arthroscopy, lumbar spine cyst removed, pain clinic procedures, taylor fundoplication, EGD, colonoscopy, 2019 art eriogram/thrombus extraction at [facility]. PTCA w/ 3 stents now. rt knee replacemnt, right quad repair Past Anesthesia/Blood Transfusion Reactions: No Reported Reaction Date of Last Stent Placement:: 10/15/21 Past Psychological History: No Psychological Hx Reported, Depression Additional Psychological History / Comment(s): Pt resides with his spouse. HE is independent. Smoking Status: Former smoker Past Alcohol Use History: Occasional Additional Past Alcohol Use History / Comment(s): Smoked from 1971 to 1983 SMOKED 1PPD. Pt states he drinks less than 14 drinks per week Past Drug Use History: Marijuana Additional Drug Use History / Comment(s): MEDICAL marijuana - daily. - Past Family History Mother Family Medical History: Thyroid Disorder Additional Family Medical History / Comment(s): Mother is living. Father Family Medical History: Coronary Artery Disease (CAD), Diabetes Mellitus Additional Family Medical History / Comment(s): Father had CABG. He at the age of 84 yrs in a MVA. Sister(s) Family Medical History: Cancer Additional Family Medical History / Comment(s): Sister #1 skin cancer, sister #2 thyroid cancer. Medications and Allergies Home Medications Medication Instructions Recorded Confirmed Type Levothyroxine Sodium [Synthroid] 75 mcg PO DAILY 05/04/16 09/24/22 History Escitalopram [Lexapro] 20 mg PO DAILY 12/16/16 09/24/22 History Nitroglycerin Sl Tabs [Nitrostat] 0.4 mg SL Q5M PRN 07/23/21 09/24/22 History Aspirin 81 mg PO DAILY #30 tab 10/17/21 09/24/22 Rx Ticagrelor [Brilinta] 90 mg PO BID #60 tab 10/17/21 09/24/22 Rx Pantoprazole [Protonix] 40 mg PO AC-BID #60 tab 10/22/21 09/24/22 Rx cloNIDine HCL [Catapres] 0.1 mg PO BID tab 10/22/21 09/24/22 Rx Evolocumab [Repatha Sureclick] 140 mg SQ Q14D 04/20/22 09/24/22 History Isosorbide Mononitrate ER [Imdur] 30 mg PO DAILY 04/20/22 09/24/22 History Pregabalin [Lyrica] 75 mg PO BID 06/10/22 09/24/22 History amLODIPine [Norvasc] 10 mg PO DAILY 06/10/22 09/24/22 History Clopidogrel [Plavix] 75 mg PO DAILY 09/24/22 09/24/22 History Dicyclomine [Bentyl] 10 mg PO TID PRN 09/24/22 09/24/22 History Allergies Allergy/AdvReac Type Severity Reaction Status Date / Time rivaroxaban [From Xarelto] AdvReac Severe Nausea & Verified 09/24/22 07:46 Vomiting & Diarrhea paroxetine HCl [From Paxil] AdvReac Unknown Nausea & Verified 09/24/22 07:46 Vomiting & Diarrhea apixaban [From Eliquis] AdvReac Nausea & Verified 09/24/22 07:46 Vomiting & Diarrhea atorvastatin [From Lipitor] AdvReac Nausea & Verified 09/24/22 07:46 Vomiting & Diarrhea Beta-Blockers AdvReac Nausea & Verified 09/24/22 07:46 (Beta-Adrenergic Bloc Vomiting & Diarrhea gabapentin AdvReac Nausea & Verified 09/24/22 07:46 Vomiting & Diarrhea Bwhisux-DLT-EbK Reductase AdvReac Nausea & Verified 09/24/22 07:46 Inhibitor Vomiting & Diarrhea warfarin AdvReac Nausea & Verified 09/24/22 07:46 Vomiting & Diarrhea Physical Exam Vitals: Vital Signs Temp Pulse Resp BP Pulse Ox 09/24/22 10:57 98.1 F 79 18 122/87 98 09/24/22 09:00 98 F 78 19 129/82 96 09/24/22 03:25 80 22 128/90 09/24/22 02:24 97.8 F 117 H 20 131/93 97 Intake and Output 09/23/22 09/24/22 09/24/22 22:59 06:59 14:59 Other: Weight 102.058 kg Patient is awake, comfortable, no acute distress Examination of the heart S1 and S2 Examination of the lungs bilateral breath sounds are heard Abdomen is soft nontender Examination of lower extremity shows no evidence of edema PROSTHETICS ASSISTANT exam grossly intact Results - Lab Results Most recent lab results Calcium 11.8 mg/dL (8.4-10.2) H 09/24/22 02:43 09/24/22 02:43 09/24/22 02:43 Assessment and Plan Assessment: 1. Acute kidney injury secondary to volume depletion and ATN and some degree of hypoperfusion. Check UA. Computed tomography scan of the abdomen shows no evidence of obstruction. 2. Non-gap metabolic acidosis secondary to diarrhea and acute kidney injury 3. Nausea vomiting and diarrhea secondary to gastroenteritis. 4. Hemoconcentration with hemoglobin at 18.2 g/dL 5. Hypercalcemia most likely associated with volume depletion and acute kidney injury Plan: Continue with IV fluids Change to IV bicarb Repeat labs in a.m. Check UA Repeat calcium in a.m. Check vitamin D and PTH next Thank you for the consultation. We will continue to follow the patient with you during his hospitalization
[2022-09-24] MEDS ORDERED: NITROGLYCERIN SL TABS 0.4 MG TAB SUBLINGUAL PRN (13:31)
--- NOTE | 2022-09-24 14:47 | P.HPIM ---
History of Present Illness H&P Date: 09/24/22 HISTORY OF PRESENT ILLNESS: This is a 67-year-old male with a previous medical history significant for hypertension and hypertensive cardiovascular disease, hyperlipidemia, chronic obstructive pulmonary disease, CAD, hypothyroidism, osteoarthritis status post right total knee arthroplasty, GERD with esophagitis, major depressive disorder and anxiety disorder. Patient had recent hospitalization in April of this year which time he presented with acute kidney injury and seen by nephrology, ultrasound showed no evidence of hydronephrosis. Patient was stabilized and discharged. In July, patient slid and fell at home 3 weeks ago and ended up getting his quad tendon tear and he was sent to [facility] for repair with and had intraparenchymal bleed that was resolved patient ended up admitted to the hospital multiple times after that after he was getting off the pain medication thought due to withdrawal from codeine, and was subsequently admitted for acute kidney injury and top of chronic kidney disease. He also underwent EEG that found small hiatal hernia and superficial erosions at the GE junction consistent with LA grade B reflux esophagitis. Patient was to continue Protonix 40 mg twice daily and follow-up with Dr. Patrick. Patient presented to the emergency center early this morning with complaints of sudden onset at 5 a.m. of abdominal cramping, nausea and vomiting. Patient last used marijuana the day before. He had 4 bowel movements with initially dry heaving and then vomiting Patient was found to have acute kidney injury with BUN 24 and Creat 3.47. CAT scan of the abdomen and pelvis without contrast revealed moderate fluid distention in the stomach. Wall thickening involving the gastric pylorus and or duodenal bulb. Consider direct visualization if indicated. REVIEW OF SYSTEMS: Constitutional: No documented fever, no chills, no night sweats. No weight change. positive for weakness, fatigue no lethargy. No daytime sleepiness. HEENT: No headache. No blurred vision or double vision, no loss of vision. No loss of Hearing, no ringing in the ears, no dizziness. No nasal drainage or congestion. No epistaxis. No sore throat. Lungs: No shortness of breath, no cough, no sputum production. No wheezing. Reports dyspnea with activity. Cardiovascular: No chest pain, no lower extremity edema. No palpitations. No paroxysmal nocturnal dyspnea. No orthopnea. No lightheadedness or dizziness. No syncopal episodes. Abdominal: Reports abdominal pain. positive for nausea, positive for vomiting. Reports diarrhea. No constipation. No bloody or tarry stools reports loss of appetite. Genitourinary: No dysuria, increased frequency, urgency. No urinary retention. Musculoskeletal: No myalgias. positive for muscle weakness and leg cramps , no gait dysfunction, no frequent falls. No back pain. No neck pain. Integumentary: No wounds, no lesions. No rash or pruritus. No unusual bruising. No change in hair or nails. Neurologic: No aphasia. No facial droop. No change in mentation. No head injury. No headache. No paralysis. No paresthesia. Psychiatric: positive for depression. No anxiety. No mood swings. Endocrine: No abnormal blood sugars. No weight change. PAST MEDICAL HISTORY: Hypertension and hypertensive cardiovascular disease. Hyperlipidemia. Abdominal aortic thrombus COPD. CAD of [place] artery. Hypothyroidism. Osteoarthritis. GERD with esophagitis. Chronic low back pain status post PE LDF of L3 L5. PAST SURGICAL HISTORY: Left heart catheterization with PCI of the LCx 10/16/2021 Right knee arthroscopic surgery. Right total knee arthroplasty March 2022. P LDF L3 L5 with Tarlov cyst 1999 Hiatal hernia repair 1989. Colonoscopy 2019. Laparoscopic cholecystectomy 1989. Right elbow repair. Left heart catheterization with PCI of the proximal OM1 06/18/2019. Left heart catheterization with PCI of the RCA 11/17/2013. Left heart catheterization with PCI of the LAD 07/03/2007. Left tib-fib Fed ORIF. Left hand surgery. Right Qaudriceps tendon repair SOCIAL HISTORY: Patient used to smoke about pack every day at the age of 17 and he quit at the age of 27, he smokes marijuana, he drinks alcohol 1-2 drinks at a time no more than 4 drinks a week, he denies any other drug use or abuse. FAMILY HISTORY: Father at age of 80 from motor vehicle accident and had a history of dementia, mother at age of 87 with hypertension and atrial for relation, patient has one brother okay and had 4 sisters one with thyroid disease one with skin cancer and the other 2 are okay patient has 2 sons alive and well and one daughter alive and well as well. PHYSICAL EXAMINATION: General: 67-year-old male laying down in bed in no distress. HEENT: Head is atraumatic, normocephalic, pupils were equal round reactive to light and recommendation, extraocular muscle movement were intact, sclera nonicteric, conjunctivae were pale, mucous membranes of the mouth are somewhat dry. Neck: Supple, no JVP, normal carotid upstroke bilaterally, no lymphadenopathy. Chest: Decreased breath sounds at the bases, few rhonchi, minimal expiratory wheezes, no chest wall tenderness, no intercostal retractions. Heart: First heart sound is normal, second heart sound is normal there is LUIS 2/6 located at the left sternal border. Abdomen: Soft, nontender, nondistended, positive bowel sounds. Extremities: There is no edema no calf tenderness DP +2 bilaterally. Neurologic examination: Patient is awake alert and oriented X 3, cranial nerves II-12 appear grossly intact, muscle power were 5 out of 5 in upper extremities and 5 out of 5 in bilateral lower extremities, deep tendon reflexes normal bilaterally. ASSESSMENT AND PLAN: 1. Acute kidney injury due to acute tubular necrosis due to gastrointestinal fluid loss. Continue patient on on IV fluid in the form of normal saline, sodium bicarb at 100 cc/hr and we will repeat CMP tomorrow, nephrology consultation Dr. Browne appreciated. No Toradol. 2. Vomiting and diarrhea possibly due to marijuana use and gastitis. Continue patient on Protonix 40 mg IV push every 24 hours. 3. Coronary artery disease status post multiple PCI's. Continue Brilinta and ASA continue patient on isosorbide mononitrate 30 mg once every day, continue Repatha 140 mg subcu venously every 2 weeks, monitor lipid panel, keep LDL 5570. 4. Hypertension and hypertensive cardiovascular disease. Continue patient on amlodipine 10 mg orally twice every day, continue patient on clonidine 0.1 mg orally twice every day, monitor the patient blood pressure very closely. 5. Mixed hyperlipidemia. Patient is intolerant to statins. Continue with Repatha 140 mg subcutaneously every 2 weeks keep LDL less than 50 6. Hypothyroidism. Continue Synthroid 75 g orally once every day. 7. GERD with esophagitis and hiatal hernia. Continue patient on pantoprazole 4 0 mg IVP daily. 8. Anxiety and depressive disorder. Continue patient on Escitalopram 20 mg orally once every day . 9. DVT prophylaxis. Continue patient on Lovenox 40 mg subcutaneously every 24 hours. 10. GI prophylaxis. Continue PPI. 11. Admit to inpatient. Estimated length of stay 2 midnights. 12. Patient is full code. Impression and plan of care have been directed as dictated by the signing physician. Mae Meléndez nurse practitioner acting as scribe for signing physician. Past Medical History Past Medical History: Atrial Fibrillation, Coronary Artery Disease (CAD), Chest Pain / Angina, Deep Vein Thrombosis (DVT), GERD/Reflux, GI Bleed, Hyperlipidemia, Hypertension, Myocardial Infarction ([place]), Musculoskeletal Disorder, Osteoarthritis (OA), Pneumonia, Renal Disease, Syncope, Thyroid Disorder Additional Past Medical History / Comment(s): Paroxysmal afib (taking plavix), fell 12 weeks ago and fractured stenum/ribs, episodes of acute renal failure associated with dehydration, ckd stage IV, past melana stools, diverticulitis, IBS, return of hiatal hernia, bronchitis, hypothyroid, chronic low back pain w ith bilateral sciatica, lumbar DDD, past migraines, DJD, numbness/tingling bilateral legs/feet, 4 DVTs L leg surgically removed. covid + July 2021 Last Myocardial Infarction Date:: 10/15/21 History of Any Multi-Drug Resistant Organisms: None Reported Past Surgical History: Back Surgery, Cholecystectomy, Heart Catheterization, Heart Catheterization With Stent, Hernia Repair, Orthopedic Surgery Additional Past Surgical History / Comment(s): Back fusions L3-L5, ORIF L ankle, L hand fracture with surgery, R knee arthroscopy x2, R elbow tendon release, R shoulder arthroscopy, L shoulder arthroscopy, lumbar spine cyst removed, pain clinic procedures, taylor fundoplication, EGD, colonoscopy, 2019 art eriogram/thrombus extraction at [facility]. PTCA w/ 3 stents now. rt knee replacemnt, right quad repair Past Anesthesia/Blood Transfusion Reactions: No Reported Reaction Date of Last Stent Placement:: 10/15/21 Smoking Status: Former smoker - Past Family History Mother Family Medical History: Thyroid Disorder Additional Family Medical History / Comment(s): Mother is living. Father Family Medical History: Coronary Artery Disease (CAD), Diabetes Mellitus Additional Family Medical History / Comment(s): Father had CABG. He at the age of 84 yrs in a MVA. Sister(s) Family Medical History: Cancer Additional Family Medical History / Comment(s): Sister #1 skin cancer, sister #2 thyroid cancer. Medications and Allergies Home Medications Medication Instructions Recorded Confirmed Type Levothyroxine Sodium [Synthroid] 75 mcg PO DAILY 05/04/16 09/24/22 History Escitalopram [Lexapro] 20 mg PO DAILY 12/16/16 09/24/22 History Nitroglycerin Sl Tabs [Nitrostat] 0.4 mg SL Q5M PRN 07/23/21 09/24/22 History Aspirin 81 mg PO DAILY #30 tab 10/17/21 09/24/22 Rx Ticagrelor [Brilinta] 90 mg PO BID #60 tab 10/17/21 09/24/22 Rx Pantoprazole [Protonix] 40 mg PO AC-BID #60 tab 10/22/21 09/24/22 Rx cloNIDine HCL [Catapres] 0.1 mg PO BID tab 10/22/21 09/24/22 Rx Evolocumab [Repatha Sureclick] 140 mg SQ Q14D 04/20/22 09/24/22 History Isosorbide Mononitrate ER [Imdur] 30 mg PO DAILY 04/20/22 09/24/22 History Pregabalin [Lyrica] 75 mg PO BID 06/10/22 09/24/22 History amLODIPine [Norvasc] 10 mg PO DAILY 06/10/22 09/24/22 History Clopidogrel [Plavix] 75 mg PO DAILY 09/24/22 09/24/22 History Dicyclomine [Bentyl] 10 mg PO TID PRN 09/24/22 09/24/22 History Allergies Allergy/AdvReac Type Severity Reaction Status Date / Time rivaroxaban [From Xarelto] AdvReac Severe Nausea & Verified 09/24/22 07:46 Vomiting & Diarrhea paroxetine HCl [From Paxil] AdvReac Unknown Nausea & Verified 09/24/22 07:46 Vomiting & Diarrhea apixaban [From Eliquis] AdvReac Nausea & Verified 09/24/22 07:46 Vomiting & Diarrhea atorvastatin [From Lipitor] AdvReac Nausea & Verified 09/24/22 07:46 Vomiting & Diarrhea Beta-Blockers AdvReac Nausea & Verified 09/24/22 07:46 (Beta-Adrenergic Bloc Vomiting & Diarrhea gabapentin AdvReac Nausea & Verified 09/24/22 07:46 Vomiting & Diarrhea Belqvyu-CGS-BbA Reductase AdvReac Nausea & Verified 09/24/22 07:46 Inhibitor Vomiting & Diarrhea warfarin AdvReac Nausea & Verified 09/24/22 07:46 Vomiting & Diarrhea Physical Exam Vitals: Vital Signs Temp Pulse Pulse Resp BP BP Pulse Ox 09/24/22 11:15 97.9 F 79 18 130/84 95 09/24/22 10:57 98.1 F 79 18 122/87 98 09/24/22 09:00 98 F 78 19 129/82 96 09/24/22 03:25 80 22 128/90 09/24/22 02:24 97.8 F 117 H 20 131/93 97 Intake and Output 09/23/22 09/24/22 09/24/22 22:59 06:59 14:59 Other: Weight 102.058 kg 102.058 kg Results CBC & Chem 7: 09/24/22 02:43 09/24/22 02:43 Labs: Abnormal Lab Results - Last 24 Hours (Table) 09/24/22 09/24/22 Range/Units 02:43 02:43 WBC 13.7 H (3.8-10.6) k/uL RBC 6.23 H (4.30-5.90) m/uL Hgb 18.2 H (13.0-17.5) gm/dL Neutrophils # 10.7 H (1.3-7.7) k/uL Carbon Dioxide 12 L (22-30) mmol/L BUN 24 H (9-20) mg/dL Creatinine 3.47 H (0.66-1.25) mg/dL Glucose 200 H (74-99) mg/dL Calcium 11.8 H (8.4-10.2) mg/dL Alkaline Phosphatase 150 H (38-126) U/L Total Protein 10.3 H (6.3-8.2) g/dL Albumin 6.0 H (3.5-5.0) g/dL Thrombosis Risk Factor Assmnt - Choose All That Apply Any of the Below Risk Factors Present?: No Other Risk Factors: Yes Each Risk Factor Represents 2 Points: Age 61-74 years Each Risk Factor Represents 3 Points: History of DVT/PE Other congenital or acquired thrombophilia - If yes, enter type in comment: No Thrombosis Risk Factor Assessment Total Risk Factor Score: 5 Thrombosis Risk Factor Assessment Level: High Risk
[2022-09-24] MEDS: DEXTROSE 5% IN WATER 1,000 ML with SODIUM BICARB (1 MEQ/ML) 150 ML IV SCH (14:50)
[2022-09-24] MEDS: PANTOPRAZOLE 40 MG TABLET PO SCH (19:00)
[2022-09-24] MEDS: PREGABALIN 75 MG CAP PO SCH (20:05)
[2022-09-24] MEDS ORDERED: TICAGRELOR 90 MG TAB PO SCH (21:00)
[2022-09-24 22:54] LABS: Appearance,Urine Cloudy (Clear); Bacteria,Urine Occasional /hpf; Bilirubin,Urine Negative (Negative); Blood,Urine Negative (Negative); Cellular Casts,Urine 3 /lpf (0); Glucose,Urine (UA) Trace (Negative); Hyaline Casts,Urine 121 /lpf (0-2); Ketones,Urine Negative (Negative); Leukocyte Esterase,Urine Moderate (Negative); Mucus,Urine Many /hpf; Nitrite,Urine Negative (Negative); PH, Urine 5.5 (5.0-8.0); Protein,Urine 1+ (Negative); RBC,Urine 1 /hpf (0-5); Specific Gravity,Urine 1.021 (1.001-1.035); Squamous Epithelial Cell,Urine 2 /hpf (0-4); Urobilinogen,Urine <2.0 mg/dL (<2.0); WBC,Urine 35 /hpf (0-5)
[2022-09-24 22:55] LABS: Color,Urine Yellow
[2022-09-25] MEDS: DEXTROSE 5% IN WATER 1,000 ML with SODIUM BICARB (1 MEQ/ML) 150 ML IV SCH ×2 (01:35→12:18)
[2022-09-25] MEDS: MORPHINE SULFATE 4 MG/ML SYRINGE IV PRN ×4 (03:57→20:05)
[2022-09-25] MEDS: LEVOTHYROXINE 75 MCG TAB PO SCH (05:47)
--- NOTE | 2022-09-25 08:33 | P.PN ---
Subjective Patient is seen in follow for acute kidney injury. No further vomiting. Tolerating oral intake. Good urine output. Vital signs are stable. General: No acute distress. HEENT: Head exam is unremarkable. LUNGS: No audible rhonchi or wheezes. HEART: Rate and Rhythm are regular. ABDOMEN: Nontender. EXTREMITITES: No edema. Objective - Vital Signs Vital signs: Vital Signs Temp 97.4 F L 09/25/22 08:02 Pulse 71 09/25/22 08:02 Resp 16 09/25/22 08:02 BP 148/83 09/25/22 08:02 Pulse Ox 97 09/25/22 08:02 FiO2 Intake & Output 09/24/22 09/25/22 09/25/22 18:59 06:59 18:59 Intake Total 1440 Output Total 0 998 Balance 0 442 Weight 102.058 kg Intake: Intake, IV Titration 1200 Amount Dextrose 5% in Water 1, 1200 000 ml @ 100 mls/hr IV . [id number] CYNDIE with Sodium Bicarb (1 Meq/ml) 150 ml Rx#:[id number] Oral 240 Output: Urine 0 600 Post Void Residual 398 Other: Voiding Method Toilet # Voids 1 - Labs CBC & Chem 7: 09/24/22 02:43 09/24/22 02:43 Labs: Abnormal Lab Results - Last 24 Hours (Table) 09/24/22 09/24/22 09/24/22 Range/Units 11:25 11:25 22:15 Vitamin D 25-Hydroxy 29.1 L (30.0-100.0) ng/mL PTH Intact 142.0 H (14.0-72.0) pg/mL Urine Protein 1+ H (Negative) Urine Glucose (UA) Trace H (Negative) Ur Leukocyte Esterase Moderate H (Negative) Urine WBC 35 H (0-5) /hpf Urine Bacteria Occasional H (None) /hpf Hyaline Casts 121 H (0-2) /lpf Urine Mucus Many H (None) /hpf Assessment and Plan Plan: Assessment: 1. Acute kidney injury mostly prerenal secondary to hypovolemia. Creatinine 3.47 on admission. No hydronephrosis noted on CAT scan. UA with 1+ protein, no blood. UA from May 2022 showed no proteinuria. 2. Nausea and vomiting. Improved. Defer management to primary team. 3. Metabolic acidosis secondary to acute kidney injury. On bicarb drip. 4. Hypercalcemia secondary to volume contraction. Also concern for primary hyperparathyroidism as PTH elevated at 142. Vitamin D level 29.1. 5. Benign hypertension. Stable. Plan: Maintain bicarb drip. Follow-up pending workup for hypercalcemia. Check PTH related peptide. Check parathyroid nuclear scan. Follow-up morning labs. Repeat UA once JOSIE resolves.
[2022-09-25] MEDS: ENOXAPARIN 40 MG/0.4 ML SYRINGE SQ SCH (08:35)
[2022-09-25] MEDS: ASPIRIN 81 MG PO SCH (08:36)
[2022-09-25] MEDS: ISOSORBIDE MONONITRATE ER 30 MG TAB.ER.24H PO SCH (08:36)
[2022-09-25] MEDS: CLOPIDOGREL 75 MG TAB PO SCH (08:36)
[2022-09-25] MEDS: PANTOPRAZOLE 40 MG TABLET PO SCH ×2 (08:36→17:54)
[2022-09-25] MEDS: ESCITALOPRAM 20 MG TAB PO SCH (08:36)
[2022-09-25] MEDS: PREGABALIN 75 MG CAP PO SCH ×2 (08:36→20:05)
[2022-09-25] MEDS: amLODIPine 10 MG TAB PO SCH (08:36)
[2022-09-25] MEDS ORDERED: DEXTROSE 5% IN WATER 1,000 ML with SODIUM BICARB (1 MEQ/ML) 150 ML IV SCH (18:15)
[2022-09-25 19:17] LABS: Basophils % (A) 0 %; Eosinophils # (A) 0.1 k/uL (0-0.7); Eosinophils % (A) 2 %; HCT 39.6 % (39.0-53.0); Lymphocytes # (A) 2.2 k/uL (1.0-4.8); Lymphocytes % (A) 25 %; MCH 28.9 pg (25.0-35.0); MCHC 34.3 g/dL (31.0-37.0); MCV 84.3 fL (80.0-100.0); Mean Platelet Volume 8.4; Monocytes # (A) 0.7 k/uL (0-1.0); Monocytes % (A) 8 %; Neutrophils # (A) 5.6 k/uL (1.3-7.7); Neutrophils % (A) 64 %; Platelet Count 203 k/uL (150-450); RBC 4.69 m/uL (4.30-5.90); RDW 15.1 % (11.5-15.5); WBC 8.8 k/uL (3.8-10.6)
[2022-09-25 19:21] LABS: HGB 13.6 gm/dL (13.0-17.5)
[2022-09-25 19:24] LABS: ALT 32 U/L (4-49); AST 33 U/L (17-59); African American GFR (CKD) 51 (>60 ml/min/1.73 sqM); Albumin 4.3 g/dL (3.5-5.0); Albumin/Globulin Ratio 1.7; Alkaline Phosphatase 97 U/L (38-126); Anion Gap 11 mmol/L; Blood Urea Nitrogen 31 mg/dL (9-20); Carbon Dioxide 30 mmol/L (22-30); Chloride 94 mmol/L (98-107); Globulin 2.6 g/dL; Glucose 108 mg/dL (74-99); Magnesium 2.1 mg/dL (1.6-2.3); Non-African American GFR(CKD) 44 (>60 ml/min/1.73 sqM); Potassium 3.5 mmol/L (3.5-5.1); Sodium 135 mmol/L (137-145); Total Bilirubin 0.9 mg/dL (0.2-1.3); Total Protein 6.9 g/dL (6.3-8.2)
[2022-09-25] MEDS: SODIUM CHLORIDE 0.9% 1,000 ML IV SCH (19:47)
[2022-09-26] MEDS: MORPHINE SULFATE 4 MG/ML SYRINGE IV PRN ×6 (00:46→22:45)
[2022-09-26] MEDS ORDERED: Magnesium Replacement Protocol 1 EACH MISC MISCELLANE PRN (03:33)
[2022-09-26] MEDS ORDERED: Potassium Replacement Protocol 1 EACH MISC MISCELLANE PRN (03:33)
[2022-09-26] MEDS: POTASSIUM CHLORIDE ER 20 MEQ TAB.ER PO SCH ×2 (03:56→04:51)
[2022-09-26] MEDS: LEVOTHYROXINE 75 MCG TAB PO SCH (04:51)
[2022-09-26] MEDS: ENOXAPARIN 40 MG/0.4 ML SYRINGE SQ SCH (07:49)
[2022-09-26] MEDS: ASPIRIN 81 MG PO SCH (07:50)
[2022-09-26] MEDS: ISOSORBIDE MONONITRATE ER 30 MG TAB.ER.24H PO SCH (07:50)
[2022-09-26] MEDS: CLOPIDOGREL 75 MG TAB PO SCH (07:50)
[2022-09-26] MEDS: ESCITALOPRAM 20 MG TAB PO SCH (07:50)
[2022-09-26] MEDS: PANTOPRAZOLE 40 MG TABLET PO SCH ×2 (07:50→18:21)
[2022-09-26] MEDS: PREGABALIN 75 MG CAP PO SCH ×2 (07:50→21:22)
[2022-09-26] MEDS: amLODIPine 10 MG TAB PO SCH (07:50)
[2022-09-26] MEDS: SODIUM CHLORIDE 0.9% 1,000 ML IV SCH (07:51)
--- NOTE | 2022-09-26 09:23 | P.PN ---
Subjective Progress Note Date: 09/25/22 HISTORY OF PRESENT ILLNESS: This is a 67-year-old male with a previous medical history significant for hypertension and hypertensive cardiovascular disease, hyperlipidemia, chronic obstructive pulmonary disease, CAD, hypothyroidism, osteoarthritis status post right total knee arthroplasty, GERD with esophagitis, major depressive disorder and anxiety disorder. Patient had recent hospitalization in April of this year which time he presented with acute kidney injury and seen by nephrology, ultrasound showed no evidence of hydronephrosis. Patient was stabilized and discharged. In July, patient slid and fell at home 3 weeks ago and ended up getting his quad tendon tear and he was sent to [facility] for repair with and had intraparenchymal bleed that was resolved patient ended up admitted to the hospital multiple times after that after he was getting off the pain medication thought due to withdrawal from codeine, and was subsequently admitted for acute kidney injury and top of chronic kidney disease. He also underwent EEG that found small hiatal hernia and superficial erosions at the GE junction consistent with LA grade B reflux esophagitis. Patient was to continue Protonix 40 mg twice daily and follow-up with Dr. Patrick. Patient presented to the emergency center early this morning with complaints of sudden onset at 5 a.m. of abdominal cramping, nausea and vomiting. Patient last used marijuana the day before. He had 4 bowel movements with initially dry heaving and then vomiting Patient was found to have acute kidney injury with BUN 24 and Creat 3.47. CAT scan of the abdomen and pelvis without contrast revealed moderate fluid distention in the stomach. Wall thickening involving the gastric pylorus and or duodenal bulb. Consider direct visualization if indicated. 09/25: Patient is laying down in bed in no apparent distress, he denies ingesting, shortness of has no abdominal pain, nausea vomiting or diarrhea, patient has been on sodium bicarbonate drip yesterday, he is making urine, his labs are still pending today, he continues to be in the hospital he was seen in consultation by nephrology, a battery of blood testing were ordered, we will co luann to monitor the patient very closely. REVIEW OF SYSTEMS: Constitutional: No documented fever, no chills, no night sweats. No weight change. positive for weakness, fatigue no lethargy. No daytime sleepiness. HEENT: No headache. No blurred vision or double vision, no loss of vision. No loss of Hearing, no ringing in the ears, no dizziness. No nasal drainage or congestion. No epistaxis. No sore throat. Lungs: No shortness of breath, no cough, no sputum production. No wheezing. Reports dyspnea with activity. Cardiovascular: No chest pain, no lower extremity edema. No palpitations. No paroxysmal nocturnal dyspnea. No orthopnea. No lightheadedness or dizziness. No syncopal episodes. Abdominal: Reports abdominal pain. positive for nausea, positive for vomiting. Reports diarrhea. No constipation. No bloody or tarry stools reports loss of appetite. Genitourinary: No dysuria, increased frequency, urgency. No urinary retention. Musculoskeletal: No myalgias. positive for muscle weakness and leg cramps , no gait dysfunction, no frequent falls. No back pain. No neck pain. Integumentary: No wounds, no lesions. No rash or pruritus. No unusual bruising. No change in hair or nails. Neurologic: No aphasia. No facial droop. No change in mentation. No head injury. No headache. No paralysis. No paresthesia. Psychiatric: positive for depression. No anxiety. No mood swings. Endocrine: No abnormal blood sugars. No weight change. PHYSICAL EXAMINATION: General: 67-year-old male laying down in bed in no distress. HEENT: Head is atraumatic, normocephalic, pupils were equal round reactive to light and recommendation, extraocular muscle movement were intact, sclera nonicteric, conjunctivae were pale, mucous membranes of the mouth are somewhat dry. Neck: Supple, no JVP, normal carotid upstroke bilaterally, no lymphadenopathy. Chest: Decreased breath sounds at the bases, few rhonchi, minimal expiratory wheezes, no chest wall tenderness, no intercostal retractions. Heart: First heart sound is normal, second heart sound is normal there is LUIS 2/6 located at the left sternal border. Abdomen: Soft, nontender, nondistended, positive bowel sounds. Extremities: There is no edema no calf tenderness DP +2 bilaterally. Neurologic examination: Patient is awake alert and oriented X 3, cranial nerves II-12 appear grossly intact, muscle power were 5 out of 5 in upper extremities and 5 out of 5 in bilateral lower extremities, deep tendon reflexes normal bilaterally. ASSESSMENT AND PLAN: 1. Acute kidney injury due to acute tubular necrosis due to gastrointestinal fluid loss. Continue patient on on IV fluid NS at 75 ml/h. 2. Metabolic acidosis secondary to acute kidney injury. Continue with her today 3. Hypercalcemia likely related to hyperparathyroidism. Parathyroid scan was ordered by nephrology 4. Coronary artery disease status post multiple PCI's. Continue Brilinta and ASA continue patient on isosorbide mononitrate 30 mg once every day, continue Repatha 140 mg subcu venously every 2 weeks, monitor lipid panel, keep LDL 5570. 5. Hypertension and hypertensive cardiovascular disease. Continue patient on amlodipine 10 mg orally twice every day, continue patient on clonidine 0.1 mg orally twice every day, monitor the patient blood pressure very closely. 6. Mixed hyperlipidemia. Patient is intolerant to statins. Continue with Repatha 140 mg subcutaneously every 2 weeks keep LDL less than 50 7. Hypothyroidism. Continue Synthroid 75 g orally once every day. 8. GERD with esophagitis and hiatal hernia. Continue patient on pantoprazole 40 mg orally twice every day. 9. Anxiety and depressive disorder. Continue patient on Escitalopram 20 mg orally once every day . 10. DVT prophylaxis. Continue patient on Lovenox 40 mg subcutaneously every 24 hours. 11. GI prophylaxis. Continue PPI. 12. Hopefully home in the next 24 hours. Objective - Vital Signs Vital signs: Vital Signs Temp 97.4 F L 09/25/22 08:02 Pulse 71 09/25/22 08:02 Resp 16 09/25/22 08:02 BP 148/83 09/25/22 08:02 Pulse Ox 97 09/25/22 08:02 FiO2 Intake & Output 09/24/22 09/25/22 09/25/22 18:59 06:59 18:59 Intake Total 1440 Output Total 0 998 Balance 0 442 Weight 102.058 kg Intake: Intake, IV Titration 1200 Amount Dextrose 5% in Water 1, 1200 000 ml @ 100 mls/hr IV . [id number] CYNDIE with Sodium Bicarb (1 Meq/ml) 150 ml Rx#:[id number] Oral 240 Output: Urine 0 600 Post Void Residual 398 Other: Voiding Method Toilet Toilet # Voids 1 - Labs CBC & Chem 7: 09/25/22 17:59 09/25/22 17:59 Labs: Abnormal Lab Results - Last 24 Hours (Table) 08/09/24/22 09/24/22 Range/Units 11:25 11:25 22:15 Vitamin D 25-Hydroxy 29.1 L (30.0-100.0) ng/mL PTH Intact 142.0 H (14.0-72.0) pg/mL Urine Protein 1+ H (Negative) Urine Glucose (UA) Trace H (Negative) Ur Leukocyte Esterase Moderate H (Negative) Urine WBC 35 H (0-5) /hpf Urine Bacteria Occasional H (None) /hpf Hyaline Casts 121 H (0-2) /lpf Urine Mucus Many H (None) /hpf
--- NOTE | 2022-09-26 11:30 | P.PN ---
Subjective Patient is seen in follow for acute kidney injury. Renal function improving. No further vomiting. Tolerating oral intake. Good urine output. No active complaints. Vital signs are stable. General: No acute distress. HEENT: Head exam is unremarkable. LUNGS: No audible rhonchi or wheezes. HEART: Rate and Rhythm are regular. ABDOMEN: Nontender. EXTREMITITES: No edema. Objective - Vital Signs Vital signs: Vital Signs Temp 98.4 F 09/26/22 08:20 Pulse 66 09/26/22 08:20 Resp 16 09/26/22 08:20 BP 147/87 09/26/22 08:20 Pulse Ox 96 09/26/22 08:20 FiO2 Intake & Output 09/25/22 09/26/22 09/26/22 18:59 06:59 18:59 Intake Total 1500 Balance 1500 Intake: Intake, IV Titration 900 Amount Dextrose 5% in Water 1, 50 000 ml @ 75 mls/hr IV . [id number] CYNDIE with Sodium Bicarb (1 Meq/ml) 150 ml Rx#:[id number] Sodium Chloride 0.9% 1, 850 000 ml @ 75 mls/hr IV . [id number] CYNDIE Rx#:[id number] Oral 600 Other: Voiding Method Toilet Toilet Toilet # Voids 1 2 # Bowel Movements 0 - Labs CBC & Chem 7: 09/25/22 17:59 09/25/22 17:59 Labs: Abnormal Lab Results - Last 24 Hours (Table) 09/25/22 Range/Units 17:59 Sodium 135 L (137-145) mmol/L Chloride 94 L (98-107) mmol/L BUN 31 H (9-20) mg/dL Creatinine 1.59 H (0.66-1.25) mg/dL Glucose 108 H (74-99) mg/dL Assessment and Plan Plan: Assessment: 1. Acute kidney injury mostly prerenal secondary to hypovolemia. Creatinine 3.47 on admission - 1.59 yesterday. No hydronephrosis noted on CAT scan. UA with 1+ protein, no blood. UA from May 2022 showed no proteinuria. 2. Nausea and vomiting. Improved. Defer management to primary team. 3. Metabolic acidosis secondary to acute kidney injury. Status post bicarb drip. Resolved. 4. Hypercalcemia secondary to volume contraction. Improved. Also concern for primary hyperparathyroidism as PTH elevated at 142. Vitamin D level 29.1. 5. Benign hypertension. Stable. Plan: Maintain normal saline. Follow-up pending workup for hypercalcemia. Follow-up PTH related peptide. Follow-up parathyroid nuclear scan. Follow-up morning labs. Repeat UA.
[2022-09-26 11:54] LABS: African American GFR (CKD) 68 (>60 ml/min/1.73 sqM); Albumin 4.7 g/dL (3.5-5.0); Anion Gap 11 mmol/L; Blood Urea Nitrogen 20 mg/dL (9-20); Calcium 9.5 mg/dL (8.4-10.2); Carbon Dioxide 28 mmol/L (22-30); Chloride 101 mmol/L (98-107); Glucose 101 mg/dL (74-99); Magnesium 2.3 mg/dL (1.6-2.3); Non-African American GFR(CKD) 59 (>60 ml/min/1.73 sqM); Potassium 4.2 mmol/L (3.5-5.1); Sodium 140 mmol/L (137-145)
[2022-09-26 14:06] LABS: Appearance,Urine Clear (Clear); Bilirubin,Urine Negative (Negative); Blood,Urine Negative (Negative); Color,Urine Light Yellow; Glucose,Urine (UA) 3+ (Negative); Ketones,Urine Negative (Negative); Leukocyte Esterase,Urine Negative (Negative); Nitrite,Urine Negative (Negative); Protein,Urine Negative (Negative); Specific Gravity,Urine 1.012 (1.001-1.035); Urobilinogen,Urine <2.0 mg/dL (<2.0)
[2022-09-26 21:04] VITALS: TEMP 98.1
[2022-09-27] MEDS: MORPHINE SULFATE 4 MG/ML SYRINGE IV PRN ×3 (02:30→10:31)
[2022-09-27] MEDS: SODIUM CHLORIDE 0.9% 1,000 ML IV SCH ×2 (03:41→12:19)
[2022-09-27] MEDS: LEVOTHYROXINE 75 MCG TAB PO SCH (05:29)
[2022-09-27 08:38] VITALS: BP 157/86; PULSE 67; RESP 16
[2022-09-27] MEDS: PREGABALIN 75 MG CAP PO SCH (08:53)
[2022-09-27] MEDS: amLODIPine 10 MG TAB PO SCH (08:53)
[2022-09-27] MEDS: ASPIRIN 81 MG PO SCH (08:53)
[2022-09-27] MEDS: ISOSORBIDE MONONITRATE ER 30 MG TAB.ER.24H PO SCH (08:53)
[2022-09-27] MEDS: CLOPIDOGREL 75 MG TAB PO SCH (08:53)
[2022-09-27] MEDS: ESCITALOPRAM 20 MG TAB PO SCH (08:53)
[2022-09-27] MEDS: PANTOPRAZOLE 40 MG TABLET PO SCH (08:53)
[2022-09-27] MEDS: ENOXAPARIN 40 MG/0.4 ML SYRINGE SQ SCH (08:54)
[2022-09-27 11:04] LABS: Albumin 4.6 d/dL (3.8-4.9); BUN/Creat Ratio 12.25 Ratio (12.00-20.00); Blood Urea Nitrogen 14.7 mg/dL (9.0-27.0); Calcium 9.7 mg/dL (8.7-10.3); Carbon Dioxide 26.7 mmol/L (21.6-31.8); Chloride 103 mmol/L (96-109); Glucose 118 mg/dL (70-110); Magnesium 2.3 mg/dL (1.5-2.4); Potassium 4.3 mmol/L (3.5-5.5); Sodium 140 mmol/L (135-145)
[2022-09-27 11:19] LABS: Angiotensin-1 Converting Enz. 46 U/L (8-52)
--- NOTE | 2022-09-27 12:33 | P.DS ---
Providers Date of admission: 09/24/22 04:49 Expected date of discharge: 09/27/22 Attending physician: Sammie Mercedes Consults: 09/24/22 04:01 Consult Physician Urgent Consulting Provider: Rafaela Browne Consult Reason/Comments: acute kidney failure Do you want consulting provider notified?: Yes, Notify in am Primary care physician: Sammie Mercedes Hospital Course: HISTORY OF PRESENT ILLNESS: This is a 67-year-old male with a previous medical history significant for hypertension and hypertensive cardiovascular disease, hyperlipidemia, chronic obstructive pulmonary disease, CAD, hypothyroidism, osteoarthritis status post right total knee arthroplasty, GERD with esophagitis, major depressive disorder and anxiety disorder. Patient had recent hospitalization in April of this year which time he presented with acute kidney injury and seen by nephrology, ultrasound showed no evidence of hydronephrosis. Patient was stabilized and discharged. In July, patient slid and fell at home 3 weeks ago and ended up getting his quad tendon tear and he was sent to [facility] for repair with and had intraparenchymal bleed that was resolved patient ended up admitted to the hospital multiple times after that after he was getting off the pain medication thought due to withdrawal from codeine, and was subsequently admitted for acute kidney injury and top of chronic kidney disease. He also underwent EEG that found small hiatal hernia and superficial erosions at the GE junction consistent with LA grade B reflux esophagitis. Patient was to continue Protonix 40 mg twice daily and follow-up with Dr. Patrick. Patient presented to the emergency center early this morning with complaints of sudden onset at 5 a.m. of abdominal cramping, nausea and vomiting. Patient last used marijuana the day before. He had 4 bowel movements with initially dry heaving and then vomiting Patient was found to have acute kidney injury with BUN 24 and Creat 3.47. CAT scan of the abdomen and pelvis without contrast revealed moderate fluid distention in the stomach. Wall thickening involving the gastric pylorus and or duodenal bulb. Consider direct visualization if indicated. 09/25: Patient is laying down in bed in no apparent distress, he denies ingesting, shortness of has no abdominal pain, nausea vomiting or diarrhea, patient has been on sodium bicarbonate drip yesterday, he is making urine, his labs are still pending today, he continues to be in the hospital he was seen in consultation by nephrology, a battery of blood testing were ordered, we will continue to monitor the patient very closely. 09/27: Patient's renal function continues to improve. He has had no vomiting or diarrhea. He has had urine output. Nephrology has ordered a nuclear parathyroid scan which is pending. Repeat blood work reveals sodium is 140, potassium 4.3, chloride 103, CO2 26, BUN 14 creatinine 1.2. Blood sugar 118. Patient underwent parathyroid nuclear scan this morning and report is pending. Patient may follow-up in the office for the results of this testing. He has been seen by Dr. Cason this morning and cleared for discharge with plan to follow-up in the office in one to 2 weeks. Patient will be discharged home today with stable daily. DISCHARGE DIAGNOSES: 1. Acute kidney injury due to acute tubular necrosis due to gastrointestinal fluid loss. Patient's renal function is improving. He has having urine output 2. Metabolic acidosis secondary to acute kidney injury. 3. Hypercalcemia likely related to hyperparathyroidism. 4. Coronary artery disease status post multiple PCI's. 5. Hypertension and hypertensive cardiovascular disease. 6. Mixed hyperlipidemia. Patient is intolerant to statins. 7. Hypothyroidism. 8. GERD with esophagitis and hiatal hernia. 9. Generalized anxiety disorder and depressive disorder. Discharge plan: Home Greater than 35 minutes was utilized and coordinating patient's discharge. Impression and plan of care have been directed as dictated by the signing physician. Mae Meléndez nurse practitioner acting as scribe for signing physician. Patient Condition at Discharge: Fair Plan - Discharge Summary New Discharge Prescriptions: Continue Levothyroxine Sodium [Synthroid] 75 mcg PO DAILY Escitalopram [Lexapro] 20 mg PO DAILY Pantoprazole [Protonix] 40 mg PO AC-BID #60 tab cloNIDine HCL [Catapres] 0.1 mg PO BID tab Isosorbide Mononitrate ER [Imdur] 30 mg PO DAILY Pregabalin [Lyrica] 75 mg PO BID Dicyclomine [Bentyl] 10 mg PO TID PRN PRN Reason: ibs Clopidogrel [Plavix] 75 mg PO DAILY Nitroglycerin Sl Tabs [Nitrostat] 0.4 mg SL Q5M PRN PRN Reason: Chest Pain Aspirin 81 mg PO DAILY #30 tab Evolocumab [Repatha Sureclick] 140 mg SQ Q14D amLODIPine [Norvasc] 10 mg PO DAILY Discontinued Ticagrelor [Brilinta] 90 mg PO BID #60 tab Discharge Medication List Levothyroxine Sodium [Synthroid] 75 mcg PO DAILY 05/04/16 [History] Escitalopram [Lexapro] 20 mg PO DAILY 12/16/16 [History] Nitroglycerin Sl Tabs [Nitrostat] 0.4 mg SL Q5M PRN 07/23/21 [History] Aspirin 81 mg PO DAILY #30 tab 10/17/21 [Rx] Pantoprazole [Protonix] 40 mg PO AC-BID #60 tab 10/22/21 [Rx] cloNIDine HCL [Catapres] 0.1 mg PO BID tab 10/22/21 [Rx] Evolocumab [Repatha Sureclick] 140 mg SQ Q14D 04/20/22 [History] Isosorbide Mononitrate ER [Imdur] 30 mg PO DAILY 04/20/22 [History] Pregabalin [Lyrica] 75 mg PO BID 06/10/22 [History] amLODIPine [Norvasc] 10 mg PO DAILY 06/10/22 [History] Clopidogrel [Plavix] 75 mg PO DAILY 09/24/22 [History] Dicyclomine [Bentyl] 10 mg PO TID PRN 09/24/22 [History] Follow up Appointment(s)/Referral(s): Sammie Mercedes MD [Primary Care Provider] - 1 Week (Please call and make follow up appointment the office was not available .) Kristian Cason DO [STAFF PHYSICIAN] - 1 Week Patient Instructions/Handouts: Dehydration (DC), Acute Kidney Injury (DC) Discharge Disposition: HOME SELF-CARE
--- NOTE | 2022-09-27 12:57 | P.PN ---
Subjective Patient is seen in follow for acute kidney injury. Renal function improved. No further vomiting. Tolerating oral intake. Good urine output. No active complaints. Calcium level normal. Vital signs are stable. General: No acute distress. HEENT: Head exam is unremarkable. LUNGS: No audible rhonchi or wheezes. HEART: Rate and Rhythm are regular. ABDOMEN: Nontender. EXTREMITITES: No edema. Objective - Vital Signs Vital signs: Vital Signs Temp 98.1 F 09/27/22 06:52 Pulse 67 09/27/22 06:52 Resp 16 09/27/22 06:52 BP 157/86 09/27/22 06:52 Pulse Ox 96 09/27/22 06:52 FiO2 Intake & Output 09/26/22 09/27/22 09/27/22 18:59 06:59 18:59 Other: Voiding Method Toilet Toilet Toilet # Voids 2 3 # Bowel Movements 0 - Labs CBC & Chem 7: 09/25/22 17:59 09/27/22 05:51 Labs: Abnormal Lab Results - Last 24 Hours (Table) 09/26/22 09/27/22 Range/Units 13:33 05:51 Glucose 118 H (70-110) mg/dL Urine Glucose (UA) 3+ H (Negative) Assessment and Plan Plan: Assessment: 1. Acute kidney injury mostly prerenal secondary to hypovolemia. Creatinine 3.47 on admission -1.2 today No hydronephrosis noted on CAT scan. UA with 1+ protein, no blood. UA from May 2022 showed no proteinuria. 2. Nausea and vomiting. Improved. Defer management to primary team. 3. Metabolic acidosis secondary to acute kidney injury. Status post bicarb drip. Resolved. 4. Hypercalcemia secondary to volume contraction. Not on calcium or vitamin D supplements. Improved. Also concern for primary hyperparathyroidism as PTH elevated at 142. Vitamin D level 29.1. Bar 46. 5. Benign hypertension. Stable. Plan: Hep-Lock IV fluids. Follow-up pending workup for hypercalcemia. Follow-up PTH related peptide. Follow-up parathyroid nuclear scan. Follow up outpatient 7-10 days postdischarge.
--- NOTE | 2022-09-27 13:44 | NM ---
EXAMINATION TYPE: NM parathyroid w/spect DATE OF EXAM: 09/27/2022 COMPARISON: NONE CLINICAL INDICATION: Male, 67 years old with history of hypercalcemia, high PTH; TECHNIQUE: Following administration of 24.8 mCi Tc99m Sestamibi. Anterior projection images of the neck and ches t were obtained 10 minutes and 3 hours post injection. SPECT images of the neck and chest were obtai tracee and reconstructed in three axes. FINDINGS: Thyroid tracer washout: Delayed images demonstrate near-complete tracer washout from the thyroid. Parathyroid uptake: None. The two-hour delayed images do not demonstrate any focal abnormal persisten t uptake in the region of the parathyroid glands to suggest parathyroid adenoma. Normal uptake: There is physiological tracer uptake in the myocardium, liver, salivary glands, and th yroid gland. IMPRESSION: Normal parathyroid imaging study. No evidence for mediastinal uptake to suggest mediastinal parathyro id adenoma
[2022-09-27 19:19] LABS: Vitamin D, 1, 25-Dihydroxy 83 pg/mL (20 - 79)
== END 2022-09-27 13:37 | disposition home or self-care (01) | DRG 683 ==
LOC: EC 02:23 → 5NMEDONC 04:49
PROVIDERS: ADMIT Internal Medicine; ATTEND Internal Medicine
DX: N17.0 Acute kidney failure with tubular necrosis (principal); E87.20 Acidosis, unspecified; N39.0 Urinary tract infection, site not specified; N18.4 Chronic kidney disease, stage 4 (severe); K44.9 Diaphragmatic hernia without obstruction or gangrene; E03.9 Hypothyroidism, unspecified; F41.1 Generalized anxiety disorder; R11.2 Nausea with vomiting, unspecified; M51.36 Other intervertebral disc degeneration, lumbar region; F32.A Depression, unspecified; E11.22 Type 2 diabetes mellitus with diabetic chronic kidney disease; M19.90 Unspecified osteoarthritis, unspecified site; Z91.81 History of falling; I48.0 Paroxysmal atrial fibrillation; E21.3 Hyperparathyroidism, unspecified; I12.9 Hypertensive chronic kidney disease with stage 1 through stage 4 chronic kidney disease, or unspecified chronic kidney disease; E78.2 Mixed hyperlipidemia; E83.52 Hypercalcemia; K21.00 Gastro-esophageal reflux disease with esophagitis, without bleeding; G89.29 Other chronic pain; E86.1 Hypovolemia; I25.10 Atherosclerotic heart disease of native coronary artery without angina pectoris; Z79.01 Long term (current) use of anticoagulants; Z88.8 Allergy status to other drugs, medicaments and biological substances; Z87.01 Personal history of pneumonia (recurrent); I25.2 Old myocardial infarction; Z87.19 Personal history of other diseases of the digestive system; J44.9 Chronic obstructive pulmonary disease, unspecified; Z79.02 Long term (current) use of antithrombotics/antiplatelets; Z79.82 Long term (current) use of aspirin; Z79.899 Other long term (current) drug therapy; Z79.890 Hormone replacement therapy; Z86.73 Personal history of transient ischemic attack (TIA), and cerebral infarction without residual deficits; Z90.49 Acquired absence of other specified parts of digestive tract; Z96.651 Presence of right artificial knee joint; I71.40 Abdominal aortic aneurysm, without rupture, unspecified
CPT/HCPCS: 36415; 74176; 78071; 80048; 80053; 81001; 81003; 82040; 82150; 82164; 82306; 82652; 83690; 83735; 83970; 85025; 86334; 86335; 96361; 96374; 96375; 99285

== ENCOUNTER 2022-10-12 06:27 | Day surgery (SDC) | payer MEDICARE ==
[2022-10-07 10:18] VITALS: BMI 31.6
[~2022-10-12 06:27] MED LIST changes: +LIDOCAINE 1% (10MG/ML) FOR IV START INTRADERMA PRN
[2022-10-12 07:15] VITALS: TEMP 97.9
[2022-10-12] MEDS ORDERED: LIDOCAINE 2% INJ 20 MG/ML (2 ML VIAL) ONE (07:51)
[2022-10-12] MEDS ORDERED: PROPOFOL 10 MG/ML 20 ML VIAL IV ONE (07:51)
--- NOTE | 2022-10-12 08:13 | P.PCN ---
Date of Procedure: 10/12/22 Procedure(s) Performed: Brief history: Patient is a pleasant 67-year-old white male scheduled for an elective upper endoscopy as well as colonoscopy as a part of evaluation of a history of GERD and prior history of colon polyps. Procedure performed: Esophagogastroduodenoscopy with biopsy Colonoscopy with snare polypectomy. Preoperative diagnosis: Long-standing history of GERD History of colon polyps Anesthesia: MAC Procedure: After informed consent was obtained from the patient was brought into the endoscopy unit and IV sedation was administered by anesthesia under continuous monitoring. Initially upper endoscopy was done. The Olympus GF 160 video endoscope was inserted inserted into the mouth and esophagus intubated without any difficulty and was gradually advanced into the stomach and duodenum and carefully examined. The bulb and second part of the duodenum appeared normal. The scope was then withdrawn into the stomach adequately insufflated with air and upon careful examination the antrum had linear areas of erythema consistent with gastritis. Biopsies were done from this area. Mucosa of the body, cardia and fundus appeared normal. The scope was then withdrawn into the esophagus. The GE junction was located at 40 cm to the incisors. It appeared irregular with no erythema erosions or ulcerations. Rest of the esophagus appeared normal. Patient tolerated the procedure well. At this time the patient continued to remain sedation. Initial digital rectal examination was normal. Olympus CF 160 video colonoscope was then inserted into the rectum and gradually advanced to the cecum without any difficulty. Careful examination was performed as the scope was gradually being withdrawn. The prep was excellent. The cecum and a 1 cm broad-based polyp removed by piece meal snare polypectomy. In the ascending colon there were 2x3 mm polyps removed by snare polypectomy. In the transverse colon is a 4 mm polyp removed by snare polypectomy. Rest of the ascending colon, transverse colon, descending colon, sigmoid colon and rectum appeared normal. Scattered sigmoid diverticulosis. Retroflexion was performed in the rectum and no lesions were noted. Patient tolerated the procedure well. Impression: 1. Upper endoscopy revealed mild antral gastritis and irregular GE junction but no evidence of esophagitis or Romero's esophagus 2. Colonoscopy revealed 1 cm cecal polyp, 3 mm 2 ascending colon polyps and a 4 mm transverse colon polyp status post polypectomy and scattered sigmoid diverticulosis Recommendations: Findings of this examination were discussed with the patient as well as his family. He was advised to follow with the biopsy results. If the biopsies reveal adenoma he can have a repeat colonoscopy in 3 years.
[2022-10-12 08:34] VITALS: BP 100/59; PULSE 63; RESP 18
== END 2022-10-12 08:59 | disposition home or self-care (01) ==
LOC: ORWHC2ENDO 06:27
PROVIDERS: ATTEND Internal Medicine Gastroenterology
DX: Z12.11 Encounter for screening for malignant neoplasm of colon (principal); K29.50 Unspecified chronic gastritis without bleeding; D12.0 Benign neoplasm of cecum; D12.3 Benign neoplasm of transverse colon; D12.2 Benign neoplasm of ascending colon; K57.30 Diverticulosis of large intestine without perforation or abscess without bleeding; K21.9 Gastro-esophageal reflux disease without esophagitis; I10 Essential (primary) hypertension; I25.10 Atherosclerotic heart disease of native coronary artery without angina pectoris; E78.5 Hyperlipidemia, unspecified; E07.9 Disorder of thyroid, unspecified; I48.91 Unspecified atrial fibrillation; F12.90 Cannabis use, unspecified, uncomplicated; J44.9 Chronic obstructive pulmonary disease, unspecified; N17.9 Acute kidney failure, unspecified; Z95.5 Presence of coronary angioplasty implant and graft; Z79.01 Long term (current) use of anticoagulants; Z79.82 Long term (current) use of aspirin; Z79.890 Hormone replacement therapy; Z79.02 Long term (current) use of antithrombotics/antiplatelets; Z79.899 Other long term (current) drug therapy; Z86.010 Personal history of colon polyps
CPT/HCPCS: 88305; 45385; 43239; J2704; J2001

== ENCOUNTER 2022-10-24 21:00 | Inpatient (IN) | payer MEDICARE ==
[2022-10-24] MEDS ORDERED: SODIUM CHLORIDE 0.9% 1,000 ML IV ONE (21:46)
[2022-10-24] MEDS ORDERED: ONDANSETRON 4 MG/2 ML VIAL IVP STA (21:46)
[2022-10-24] MEDS ORDERED: MORPHINE SULFATE 4 MG/ML SYRINGE IVP STA (22:03)
[2022-10-24 22:09] LABS: Basophils % (A) 0 %; Eosinophils # (A) 0.1 k/uL (0-0.7); Eosinophils % (A) 1 %; HCT 52.8 % (39.0-53.0); Lymphocytes # (A) 1.6 k/uL (1.0-4.8); Lymphocytes % (A) 10 %; MCH 29.4 pg (25.0-35.0); MCHC 34.8 g/dL (31.0-37.0); MCV 84.6 fL (80.0-100.0); Mean Platelet Volume 8.4; Monocytes # (A) 0.8 k/uL (0-1.0); Monocytes % (A) 5 %; Neutrophils # (A) 12.5 k/uL (1.3-7.7); Neutrophils % (A) 83 %; Platelet Count 289 k/uL (150-450); RBC 6.24 m/uL (4.30-5.90); RDW 14.3 % (11.5-15.5); WBC 15.1 k/uL (3.8-10.6)
[2022-10-24 22:11] LABS: HGB 18.4 gm/dL (13.0-17.5)
--- NOTE | 2022-10-24 23:51 | ED ---
General Adult HPI - General Chief complaint: Nausea/Vomiting/Diarrhea Stated complaint: Vomitting,diarrhea,stomach cramps Time Seen by Provider: 10/24/22 22:56 Source: patient Mode of arrival: wheelchair Limitations: no limitations - History of Present Illness Initial comments: This is a 67-year-old male with a past medical history including hypertension a nd previous cardiac stents presented to the emergency department for generalized abdominal pain, nausea, vomiting and diarrhea. The patient stated that this is started at 6 AM and has been persistent throughout the day. The patient did state that he has had similar episodes in the past and stated that when this is happened he has had "kidney failure." The patient denied any recent sick contacts and stated that he had generalized pain in the abdomen but stated that the right lower quadrant was more tender. The patient denied any other acute pain or complaints at this time. - Related Data Home Medications Medication Instructions Recorded Confirmed Levothyroxine Sodium [Synthroid] 75 mcg PO DAILY 05/04/16 10/07/22 Escitalopram [Lexapro] 20 mg PO DAILY 12/16/16 10/07/22 Nitroglycerin Sl Tabs [Nitrostat] 0.4 mg SL Q5M PRN 07/23/21 10/07/22 Evolocumab [Repatha Sureclick] 140 mg SQ Q14D 04/20/22 10/07/22 Isosorbide Mononitrate ER [Imdur] 30 mg PO DAILY 04/20/22 10/07/22 Pregabalin [Lyrica] 75 mg PO BID 06/10/22 10/07/22 amLODIPine [Norvasc] 10 mg PO DAILY 06/10/22 10/07/22 Clopidogrel [Plavix] 75 mg PO DAILY 09/24/22 10/07/22 Dicyclomine [Bentyl] 10 mg PO TID PRN 09/24/22 10/07/22 Albuterol Sulfate [Proair 1 puff INHALATION Q6H PRN 10/07/22 10/07/22 Respiclick] Previous Rx's Medication Instructions Recorded Aspirin 81 mg PO DAILY #30 tab 10/17/21 Pantoprazole [Protonix] 40 mg PO AC-BID #60 tab 10/22/21 cloNIDine HCL [Catapres] 0.1 mg PO BID tab 10/22/21 Allergies Allergy/AdvReac Type Severity Reaction Status Date / Time rivaroxaban [From Xarelto] AdvReac Severe Nausea & Verified 10/24/22 21:32 Vomiting & Diarrhea,cramps,sweating paroxetine HCl [From Paxil] AdvReac Unknown Nausea & Verified 10/24/22 21:32 Vomiting & Diarrhea,cramps,sweating apixaban [From Eliquis] AdvReac Nausea & Verified 10/24/22 21:32 Vomiting & Diarrhea,cramps,sweating atorvastatin [From Lipitor] AdvReac Nausea & Verified 10/24/22 21:32 Vomiting & Diarrhea,cramps,sweating Beta-Blockers AdvReac Nausea & Verified 10/24/22 21:32 (Beta-Adrenergic Bloc Vomiting & Diarrhea,cramps,sweating gabapentin AdvReac Nausea & Verified 10/24/22 21:32 Vomiting & Diarrhea,cramps,sweating [id number]-CdO Reductase AdvReac Nausea & Verified 10/24/22 21:32 Inhibitor Vomiting & Diarrhea,cramps,sweating warfarin AdvReac Nausea & Verified 10/24/22 21:32 Vomiting & Diarrhea,cramps,sweating Review of Systems ROS Statement: Those systems with pertinent positive or pertinent negative responses have been documented in the HPI. ROS Other: All systems not noted in ROS Statement are negative. Past Medical History Past Medical History: Atrial Fibrillation, Coronary Artery Disease (CAD), Chest Pain / Angina, COPD, Deep Vein Thrombosis (DVT), GERD/Reflux, GI Bleed, Hyperlipidemia, Hypertension, Myocardial Infarction ([place]), Musculoskeletal Disorder, Osteoarthritis (OA), Pneumonia, Renal Disease, Syncope, Thyroid Disorder Additional Past Medical History / Comment(s): Paroxysmal afib, hx of fall with fx stenum/ribs, episodes of acute renal failure associated with dehydration, past melana stools, diverticulitis, IBS, return of hiatal hernia, bronchitis, hypothyroid, chronic low back pain with bilateral sciatica, lumbar DDD, past migraines, DJD, numbness/tingling bilateral legs/feet, 4 DVTs L leg surgically removed. ,covid + July 2021, hx of hematemesis with recent egd- erosions. Last Myocardial Infarction Date:: 10/15/21 History of Any Multi-Drug Resistant Organisms: None Reported Past Surgical History: Back Surgery, Cholecystectomy, Heart Catheterization, Heart Catheterization With Stent, Hernia Repair, Orthopedic Surgery Additional Past Surgical History / Comment(s): Back fusions L3-L5, ORIF L ankle, L hand fracture with surgery, R knee arthroscopy x2, R elbow tendon release, R shoulder arthroscopy, L shoulder arthroscopy, lumbar spine cyst removed, pain clinic procedures, taylor fundoplication, EGD, colonoscopy, 2019 arteriogram/thrombus extraction at [facility]. PTCA w/ 3 stents now. rt knee replacemnt, right quad repair Past Anesthesia/Blood Transfusion Reactions: No Reported Reaction Date of Last Stent Placement:: 10/15/21 Past Psychological History: No Psychological Hx Reported Smoking Status: Former smoker Past Alcohol Use History: Occasional Past Drug Use History: Marijuana - Past Family History Mother Family Medical History: No Reported History, Thyroid Disorder Additional Family Medical History / Comment(s): . Father Family Medical History: Coronary Artery Disease (CAD), Diabetes Mellitus Additional Family Medical History / Comment(s): Father had CABG. He at the age of 84 yrs in a MVA. Sister(s) Family Medical History: Cancer Additional Family Medical History / Comment(s): Sister #1 skin cancer, sister #2 thyroid cancer. General Exam Limitations: no limitations General appearance: alert, in no apparent distress Head exam: Present: atraumatic, normocephalic, normal inspection Eye exam: Present: normal appearance, PERRL Pupils: Present: normal accommodation ENT exam: Present: normal exam, normal oropharynx, mucous membranes moist Neck exam: Present: normal inspection, full ROM Respiratory exam: Present: normal lung sounds bilaterally Cardiovascular Exam: Present: normal rhythm, tachycardia GI/Abdominal exam: Present: soft, tenderness (TTP in all quadrants, more tenderness in the RLQ) Extremities exam: Present: normal inspection, full ROM Back exam: Present: normal inspection, full ROM Neurological exam: Present: alert, oriented X3, CN II-XII intact Psychiatric exam: Present: normal affect, normal mood Skin exam: Present: warm, dry Course Vital Signs 10/24/22 21:31 Temperature 97.5 F L Pulse Rate 122 H Respiratory 28 H Rate Blood Pressure 141/99 O2 Sat by Pulse 98 Oximetry EKG Findings - EKG Comments: EKG Findings:: An EKG was obtained and was interpreted by myself showing a rate of 110, NH interval of 216, QR sikhism 108 and QTC of 427. This EKG showed a sinus tachycardia with a first-degree AV block however there was no ST segment elevation or depression noted. Medical Decision Making - Medical Decision Making Was pt. sent in by a medical professional or institution (AIXA Mathur, WAREHOUSE ASSISTANT, urgent care, hospital, or care home...) When possible be specific @ -No Did you speak to anyone other than the patient for history (EMS, parent, family, police, friend...)? What history was obtained from this source @ -No Did you review nursing and triage notes (agree or disagree)? Why? @ -I reviewed and agree with nursing and triage notes Were old charts reviewed (outside hosp., previous admission, EMS record, old EKG, old radiological studies, urgent care reports/EKG's, care home records)? Report findings @ -No old charts were reviewed Differential Diagnosis (chest pain, altered mental status, abdominal pain women, abdominal pain men, vaginal bleeding, weakness, fever, dyspnea, syncope, headache, dizziness, GI bleed, back pain, seizure, CVA, palpatations, mental h ealth)? @ -Appendicitis, diverticulitis, dehydration EKG interpreted by me (3pts min.). @ -As above X-rays interpreted by me (1pt min.). @ -None done CT interpreted by me (1pt min.). @ -CT abdomen and pelvis without IV contrast was obtained due to kidney injury and was interpreted by myself showing no hydronephrosis or kidney stone. There was nondilated small bowel loops. The appendix is normal. There is diverticulosis without diverticulitis. There was no inflammatory process seen in the bowel. U/S interpreted by me (1pt. min.). @ -None done What testing was considered but not performed or refused? (CT, X-rays, U/S, labs)? Why? @ -UA was ordered but was still pending at this time What meds were considered but not given or refused? Why? @ -None Did you discuss the management of the patient with other professionals (pro fessionals i.e. AIXA Mathur, WAREHOUSE ASSISTANT, lab, RT, psych nurse, addiction social worker, four roll calender operator, teacher, forest fire officer, case picker)? Give summary @ -Yes, the patient's primary care physician was contacted regarding patient admission. Was smoking cessation discussed for >3mins.? @ -No Was critical care preformed (if so, how long)? @ -No Were there social determinants of health that impacted care today? How? (Homelessness, low income, unemployed, alcoholism, drug addiction, transportation, low edu. Level, literacy, decrease access to med. care, penitentiary, rehab)? @ -No Was there de-escalation of care discussed even if they declined (Discuss DNR or withdrawal of care, Hospice)? DNR status @ -No What co-morbidities impacted this encounter? (DM, HTN, Smoking, COPD, CAD, Cancer, CVA, ARF, Chemo, Hep., AIDS, mental health diagnosis, sleep apnea, morbid obesity)? @ -Hypertension, previous cardiac stents Was patient admitted / discharged? Hospital course, mention meds given and route, prescriptions, significant lab abnormalities, going to OR and other pertinent info. @ -The patient was seen and evaluated emergency department. Physical exam, the patient was resting in bed without any acute distress. Vital signs admission showed tachycardia without any elevated temperature noted. Laboratory workup and imaging was obtained. Laboratory workup was consistent with findings of dehydration including white blood cell count of 15, hemoglobin of 18.4. The patient also had a creatinine of 3.2 which is significantly elevated from his previous creatinine levels. The patient's GFR was 19. The patient's CT abdomen and pelvis without contrast was obtained and was negative for any acute injury. The patient had significant abnormalities on laboratory workup and was given 2 L of normal saline fluid and pain medications as well as Zofran. The patient did have mild improvement of his pain but due to the patient's worsening kidney function, the patient will be admitted for further workup and evaluation. The patient was agreeable to this and was admitted in stable condition. Undiagnosed new problem with uncertain prognosis? @ -No Drug Therapy requiring intensive monitoring for toxicity (Heparin, Nitro, I nsulin, Cardizem)? @ -No Were any procedures done? @ -No Diagnosis/symptom? @ -JOSIE, dehydration Acute, or Chronic, or Acute on Chronic? @ -Acute Uncomplicated (without systemic symptoms) or Complicated (systemic symptoms)? @ -Complicated Side effects of treatment? @ -No Exacerbation, Progression, or Severe Exacerbation? @ -No Poses a threat to life or bodily function? How? (Chest pain, [place], [place], pneumonia, PE, COPD, DKA, ARF, appy, cholecystitis, CVA, Diverticulitis, Homicidal, Suicidal, threat to staff... and all critical care pts) @ -Yes, continued injury to the kidney can lead to permanent damage, need for dialysis and possible . - Lab Data Result diagrams: 10/24/22 22:00 10/24/22 23:19 Lab Results 10/24/22 10/24/22 10/24/22 Range/Units 22:00 23:19 23:19 WBC 15.1 H (3.8-10.6) k/uL RBC 6.24 H (4.30-5.90) m/uL Hgb 18.4 H D (13.0-17.5) gm/dL Hct 52.8 (39.0-53.0) % MCV 84.6 (80.0-100.0) fL MCH 29.4 (25.0-35.0) pg MCHC 34.8 (31.0-37.0) g/dL RDW 14.3 (11.5-15.5) % Plt Count 289 (150-450) k/uL MPV 8.4 Neutrophils % 83 % Lymphocytes % 10 % Monocytes % 5 % Eosinophils % 1 % Basophils % 0 % Neutrophils # 12.5 H (1.3-7.7) k/uL Lymphocytes # 1.6 (1.0-4.8) k/uL Monocytes # 0.8 (0-1.0) k/uL Eosinophils # 0.1 (0-0.7) k/uL Basophils # 0.0 (0-0.2) k/uL Sodium 139 (137-145) mmol/L Potassium 4.2 (3.5-5.1) mmol/L Chloride 101 (98-107) mmol/L Carbon Dioxide 15 L (22-30) mmol/L Anion Gap 23 mmol/L BUN 23 H (9-20) mg/dL Creatinine 3.20 H (0.66-1.25) mg/dL Est GFR (CKD-EPI)AfAm 22 (>60 ml/min/1.73 sqM) Est GFR (CKD-EPI)NonAf 19 (>60 ml/min/1.73 sqM) Glucose 130 H (74-99) mg/dL Calcium 11.6 H (8.4-10.2) mg/dL Total Bilirubin 1.1 (0.2-1.3) mg/dL AST 30 (17-59) U/L ALT 27 (4-49) U/L Alkaline Phosphatase 160 H (38-126) U/L Creatine Kinase (55-170) U/L CK-MB (CK-2) 2.9 (0.0-3.4) ng/mL Total Protein 9.8 H (6.3-8.2) g/dL Albumin 5.9 H (3.5-5.0) g/dL Amylase 49 (30-110) U/L Lipase 80 (23-300) U/L 10/24/22 Range/Units 23:19 WBC (3.8-10.6) k/uL RBC (4.30-5.90) m/uL Hgb (13.0-17.5) gm/dL Hct (39.0-53.0) % MCV (80.0-100.0) fL MCH (25.0-35.0) pg MCHC (31.0-37.0) g/dL RDW (11.5-15.5) % Plt Count (150-450) k/uL MPV Neutrophils % % Lymphocytes % % Monocytes % % Eosinophils % % Basophils % % Neutrophils # (1.3-7.7) k/uL Lymphocytes # (1.0-4.8) k/uL Monocytes # (0-1.0) k/uL Eosinophils # (0-0.7) k/uL Basophils # (0-0.2) k/uL Sodium (137-145) mmol/L Potassium (3.5-5.1) mmol/L Chloride (98-107) mmol/L Carbon Dioxide (22-30) mmol/L Anion Gap mmol/L BUN (9-20) mg/dL Creatinine (0.66-1.25) mg/dL Est GFR (CKD-EPI)AfAm (>60 ml/min/1.73 sqM) Est GFR (CKD-EPI)NonAf (>60 ml/min/1.73 sqM) Glucose (74-99) mg/dL Calcium (8.4-10.2) mg/dL Total Bilirubin (0.2-1.3) mg/dL AST (17-59) U/L ALT (4-49) U/L Alkaline Phosphatase (38-126) U/L Creatine Kinase 117 (55-170) U/L CK-MB (CK-2) (0.0-3.4) ng/mL Total Protein (6.3-8.2) g/dL Albumin (3.5-5.0) g/dL Amylase (30-110) U/L Lipase (23-300) U/L Disposition Clinical Impression: Dehydration, JOSIE (acute kidney injury) Disposition: ADMITTED IP TO THIS [facility] Condition: Stable Is patient prescribed a controlled substance at d/c from ED?: No Referrals: Sammie Mercedes MD [Primary Care Provider] - 1-2 days Time of Disposition: 01:00 Decision to Admit Reason: Admit from EC Decision Date: 10/25/22 Decision Time: 01:00
[2022-10-25 00:19] LABS: ALT 27 U/L (4-49); AST 30 U/L (17-59); African American GFR (CKD) 22 (>60 ml/min/1.73 sqM); Albumin 5.9 g/dL (3.5-5.0); Alkaline Phosphatase 160 U/L (38-126); Amylase 49 U/L (30-110); Anion Gap 23 mmol/L; Blood Urea Nitrogen 23 mg/dL (9-20); Calcium 11.6 mg/dL (8.4-10.2); Carbon Dioxide 15 mmol/L (22-30); Chloride 101 mmol/L (98-107); Glucose 130 mg/dL (74-99); Lipase 80 U/L (23-300); Non-African American GFR(CKD) 19 (>60 ml/min/1.73 sqM); Potassium 4.2 mmol/L (3.5-5.1); Sodium 139 mmol/L (137-145); Total Bilirubin 1.1 mg/dL (0.2-1.3); Total Protein 9.8 g/dL (6.3-8.2)
[2022-10-25] MEDS ORDERED: SODIUM CHLORIDE 0.9% 1,000 ML IV ONE ×2 (00:23→06:55)
[2022-10-25] MEDS ORDERED: MORPHINE SULFATE 4 MG/ML SYRINGE IVP STA (00:39)
--- NOTE | 2022-10-25 01:27 | CT ---
EXAM: CT Abdomen and Pelvis Without Intravenous Contrast CLINICAL HISTORY: CT Reason: Acute abdominal pain TECHNIQUE: Axial computed tomography images of the abdomen and pelvis without intravenous contrast. CTDI is 16.2 mGy and DLP is 1137.2 mGy-cm. This CT exam was performed using one or more of the following dose reduction techniques: automated exposure control, adjustment of the mA and/or kV according to patient size, and/or use of iterative reconstruction technique. COMPARISON: September 24, 2022 FINDINGS: Lung bases: Unremarkable. No mass. No consolidation. ABDOMEN: Liver: There is a 2.5 cm simple cyst in the inferior aspect of the right liver lobe, unchanged. No follow-up is required. Gallbladder and bile ducts: Previous cholecystectomy. No biliary duct dilation is seen. Pancreas: Unremarkable. No ductal dilation. Spleen: Unremarkable. No splenomegaly. Adrenals: Unremarkable. No mass. Kidneys and ureters: Unremarkable. No hydronephrosis or ureterolithiasis is seen involving either kidney. Stomach and bowel: See below. PELVIS: Appendix: Bowel loops are nondilated. The appendix is normal. There is diverticulosis of the sigmoid colon. No evidence of acute diverticulitis. No acute inflammatory process is seen involving the bowel. Bladder: The urinary bladder is decompressed but otherwise unremarkable. No stones. Reproductive: Unremarkable as visualized. ABDOMEN and PELVIS: Intraperitoneal space: Unremarkable. No free air. No significant fluid collection. Bones/joints: Metallic artifact from instrumentation and fusion of the lumbar spine from L3-L5. No acute fracture or subluxation is seen. Soft tissues: Unremarkable. Vasculature: The abdominal aorta is heavily calcified but nondilated. Lymph nodes: Unremarkable. No enlarged lymph nodes. IMPRESSION: 1. No hydronephrosis or ureterolithiasis is seen involving either kidney. 2. Bowel loops are nondilated. The appendix is normal. There is diverticulosis of the sigmoid colon. No evidence of acute diverticulitis. No acute inflammatory process is seen involving the bowel. No acute process is seen within the abdomen or pelvis.
[2022-10-25] MEDS ORDERED: NALOXONE 0.4 MG/ML 1 ML VIAL IV PRN (02:31)
[2022-10-25] MEDS: SODIUM CHLORIDE 0.9% 1,000 ML IV SCH ×2 (03:18→17:21)
[2022-10-25] MEDS: MORPHINE SULFATE 4 MG/ML SYRINGE IV PRN ×5 (04:37→21:27)
--- NOTE | 2022-10-25 08:44 | P.NPCON ---
History of Present Illness - Reason for Consult acute renal failure - History of Present Illness Reason for consultation: Acute kidney injury History of present illness: Patient is a 67-year-old male seen in consultation for acute kidney injury. Patient's baseline creatinine is near 1 and was elevated at 3.1 admission. Patient has had multiple hospitalizations in the past with acute kidney injury which improved with IV hydration. Patient states Tuesday morning he had 3 bowel movements as well as diarrhea afterwards. He was also having dry heaves throughout the day. He did not eat anything but was trying to drink water to the best of his ability. He denies use of nonsteroidals. No history of diabetes. He does a history of coronary artery disease with 4 stents. Patient did receive 3 L of normal saline bolus and is currently receiving normal saline at 75 mL an hour. Hemodynamically stable. CAT scan showed no hydronephrosis or any acute changes. Denies hematuria or dysuria. Denies family history of renal disease. No chest pain or shortness of breath. Vital signs are stable. General: No acute distress. HEENT: Head exam is unremarkable. LUNGS: No audible rhonchi or wheezes. HEART: Rate and Rhythm are regular. ABDOMEN: Soft, nontender. EXTREMITITES: No edema. Past Medical History Past Medical History: Atrial Fibrillation, Coronary Artery Disease (CAD), Chest Pain / Angina, COPD, Deep Vein Thrombosis (DVT), GERD/Reflux, GI Bleed, Hyper lipidemia, Hypertension, Myocardial Infarction ([place]), Musculoskeletal Disorder, Osteoarthritis (OA), Pneumonia, Renal Disease, Syncope, Thyroid Disorder Additional Past Medical History / Comment(s): Paroxysmal afib, hx of fall with fx stenum/ribs, episodes of acute renal failure associated with dehydration, past melana stools, diverticulitis, IBS, return of hiatal hernia, bronchitis, hypothyroid, chronic low back pain with bilateral sciatica, lumbar DDD, past migraines, DJD, numbness/tingling bilateral legs/feet, 4 DVTs L leg surgically removed. ,covid + July 2021, hx of hematemesis with recent egd- erosions. Last Myocardial Infarction Date:: 10/15/21 History of Any Multi-Drug Resistant Organisms: None Reported Past Surgical History: Back Surgery, Cholecystectomy, Heart Catheterization, Heart Catheterization With Stent, Hernia Repair, Orthopedic Surgery Additional Past Surgical History / Comment(s): Back fusions L3-L5, ORIF L ankle, L hand fracture with surgery, R knee arthroscopy x2, R elbow tendon release, R shoulder arthroscopy, L shoulder arthroscopy, lumbar spine cyst removed, pain clinic procedures, taylor fundoplication, EGD, colonoscopy, 2019 arteriogr am/thrombus extraction at [facility]. PTCA w/ 3 stents now. rt knee replacemnt, right quad repair Past Anesthesia/Blood Transfusion Reactions: No Reported Reaction Date of Last Stent Placement:: 10/15/21 Past Psychological History: No Psychological Hx Reported Smoking Status: Former smoker Past Alcohol Use History: Occasional Past Drug Use History: Marijuana - Past Family History Mother Family Medical History: No Reported History, Thyroid Disorder Additional Family Medical History / Comment(s): . Father Family Medical History: Coronary Artery Disease (CAD), Diabetes Mellitus Additional Family Medical History / Comment(s): Father had CABG. He at the age of 84 yrs in a MVA. Sister(s) Family Medical History: Cancer Additional Family Medical History / Comment(s): Sister #1 skin cancer, sister #2 thyroid cancer. Medications and Allergies Home Medications Medication Instructions Recorded Confirmed Type Levothyroxine Sodium [Synthroid] 75 mcg PO DAILY 05/04/16 10/25/22 History Escitalopram [Lexapro] 20 mg PO DAILY 12/16/16 10/25/22 History Nitroglycerin Sl Tabs [Nitrostat] 0.4 mg SL Q5M PRN 07/23/21 10/25/22 History Aspirin 81 mg PO DAILY #30 tab 10/17/21 10/25/22 Rx Pantoprazole [Protonix] 40 mg PO AC-BID #60 tab 10/22/21 10/25/22 Rx cloNIDine HCL [Catapres] 0.1 mg PO BID tab 10/22/21 10/25/22 Rx Evolocumab [Repatha Sureclick] 140 mg SQ Q14D 04/20/22 10/25/22 History Isosorbide Mononitrate ER [Imdur] 30 mg PO DAILY 04/20/22 10/25/22 History Pregabalin [Lyrica] 75 mg PO BID 06/10/22 10/25/22 History amLODIPine [Norvasc] 10 mg PO DAILY 06/10/22 10/25/22 History Clopidogrel [Plavix] 75 mg PO DAILY 09/24/22 10/25/22 History Dicyclomine [Bentyl] 10 mg PO TID PRN 09/24/22 10/25/22 History Albuterol Sulfate [Proair 1 puff INHALATION RT-Q6H PRN 10/07/22 10/25/22 History Respiclick] Allergies Allergy/AdvReac Type Severity Reaction Status Date / Time rivaroxaban [From Xarelto] AdvReac Severe Nausea & Verified 10/25/22 06:53 Vomiting & Diarrhea,cramps,sweating paroxetine HCl [From Paxil] AdvReac Unknown Nausea & Verified 10/25/22 06:53 Vomiting & Diarrhea,cramps,sweating apixaban [From Eliquis] AdvReac Nausea & Verified 10/25/22 06:53 Vomiting & Diarrhea,cramps,sweating atorvastatin [From Lipitor] AdvReac Nausea & Verified 10/25/22 06:53 Vomiting & Diarrhea,cramps,sweating Beta-Blockers AdvReac Nausea & Verified 10/25/22 06:53 (Beta-Adrenergic Bloc Vomiting & Diarrhea,cramps,sweating gabapentin AdvReac Nausea & Verified 10/25/22 06:53 Vomiting & Diarrhea,cramps,sweating Qoeagee-ENX-WuA Reductase AdvReac Nausea & Verified 10/25/22 06:53 Inhibitor Vomiting & Diarrhea,cramps,sweating warfarin AdvReac Nausea & Verified 10/25/22 06:53 Vomiting & Diarrhea,cramps,sweating Physical Exam Vitals: Vital Signs Temp Pulse Resp BP Pulse Ox 10/25/22 07:21 83 18 145/83 98 10/25/22 02:28 98.2 F 10/25/22 02:00 88 18 149/90 96 10/25/22 01:00 86 18 140/87 94 L 10/25/22 00:52 94 L 10/24/22 21:31 97.5 F L 122 H 28 H 141/99 98 Intake and Output 10/24/22 10/25/22 10/25/22 22:59 06:59 14:59 Other: Weight 104.326 kg Results - Lab Results Most recent lab results Calcium 11.6 mg/dL (8.4-10.2) H 10/24/22 23:19 10/24/22 22:00 10/24/22 23:19 Assessment and Plan Plan: assessment: 1. Acute kidney injury secondary to vasomotor nephropathy secondary to hypercalcemia and hypovolemia. Creatinine 3.2 on admission. Baseline creatinine near 1. No hydronephrosis noted on CAT scan. 2. Metabolic acidosis secondary to acute kidney injury and GI losses. 3. Hypercalcemia secondary to volume contraction. PTH related peptide negative dated 09/25/2022. Serum and urine immunofixation negative. PTH elevated at 142 in September 2022. Parathyroid nuclear scan negative September 2022. Vitamin D 29. 1,25D3 level 83. Albumin elevated at 5.9. Corrected calcium in the normal range. 4. Benign hypertension. Stable. Plan: Maintain IV fluids. Follow-up morning labs. Avoid nephrotoxins. Continue to monitor renal function and urine output. Thank you for the consultation. I will continue to follow the patient with you during his hospital stay.
[2022-10-25 09:31] LABS: African American GFR (CKD) 37 (>60 ml/min/1.73 sqM); Anion Gap 13 mmol/L; Blood Urea Nitrogen 28 mg/dL (9-20); Calcium 9.2 mg/dL (8.4-10.2); Carbon Dioxide 18 mmol/L (22-30); Chloride 107 mmol/L (98-107); Glucose 108 mg/dL (74-99); Magnesium 1.8 mg/dL (1.6-2.3); Non-African American GFR(CKD) 32 (>60 ml/min/1.73 sqM); Sodium 138 mmol/L (137-145)
[2022-10-25 11:10] LABS: Appearance,Urine Cloudy (Clear); Bilirubin,Urine Negative (Negative); Blood,Urine Negative (Negative); Color,Urine Yellow; Glucose,Urine (UA) Negative (Negative); Hyaline Casts,Urine 39 /lpf (0-2); Ketones,Urine Trace (Negative); Leukocyte Esterase,Urine Negative (Negative); Mucus,Urine Few /hpf; Nitrite,Urine Negative (Negative); Protein,Urine 1+ (Negative); RBC,Urine 1 /hpf (0-5); Specific Gravity,Urine 1.024 (1.001-1.035); Squamous Epithelial Cell,Urine <1 /hpf (0-4); Urobilinogen,Urine <2.0 mg/dL (<2.0); WBC,Urine 7 /hpf (0-5)
[2022-10-25] MEDS ORDERED: DICYCLOMINE 10 MG CAP PO PRN (13:32)
[2022-10-25] MEDS ORDERED: NITROGLYCERIN SL TABS 0.4 MG TAB SUBLINGUAL PRN (13:32)
[2022-10-25] MEDS ORDERED: ALBUTEROL NEBULIZED 2.5 MG/3 ML INHALATION PRN (13:32)
--- NOTE | 2022-10-25 14:20 | P.HPIM ---
History of Present Illness H&P Date: 10/25/22 HISTORY OF PRESENT ILLNESS: This is a 67-year-old male with a previous medical history significant for hypertension and hypertensive cardiovascular disease, hyperlipidemia, chronic obstructive pulmonary disease, CAD, hypothyroidism, osteoarthritis status post right total knee arthroplasty, GERD with esophagitis, major depressive disorder and anxiety disorder, history of quad tendon tear treated at [facility] for repair with and had intraparenchymal bleed that was resolved patient ended up admitted to the hospital multiple times after that after he was getting off the pain medication thought due to withdrawal from codeine, history of EEG that found small hiatal hernia and superficial erosions at the GE junction consistent with LA grade B reflux esophagitis. Patient states that he woke up around 6 AM and went to the bathroom to urinate that he went back to bed syndrome onset of cramping in the lower abdomen and he then proceeded to have 3 normal consistency bowel movements. The fourth bowel movement was loose. He then developed vomiting and dry heaves. No fever or chills. Regarding marijuana use he states he has cut back but continues to use it on a regular basis. EKG sinus tachycardia with a first-degree block with a ventricular rate of 110. CAT scan of the abdomen and pelvis without contrast revealed no hydronephrosis or ureteral lithiasis. Bowel loops are nondilated. Appendix normal. Diverticulosis of the sigmoid colon. No evidence of acute diverticulitis. No acute inflammatory processes seen involving the bowel. No acute process within the abdomen or pelvis. WBC 15.1, hemoglobin 18.4, platelet count 289. Sodium 139, potassium 4.2, chloride 101, CO2 15, initial BUN 23 and now at 28. Creatinine initially 3.2 now 2.06. Blood sugar 130. Alkaline phosphatase 160 and other liver function tests are normal. CK is 116. Lipase 80. Urinalysis reveals WBC 7, ketones trace. Patient is seen today in the emergency center waiting for a bed on the [facility] floor. Nephrology is on consult, patient is on IV fluids at 75 mL per hour. Repeat blood work ordered for tomorrow. REVIEW OF SYSTEMS: Constitutional: No documented fever, no chills, no night sweats. No weight change. positive for weakness, fatigue no lethargy. No daytime sleepiness. HEENT: No headache. No blurred vision or double vision, no loss of vision. No loss of Hearing, no ringing in the ears, no dizziness. No nasal drainage or congestion. No epistaxis. No sore throat. Lungs: No shortness of breath, no cough, no sputum production. No wheezing. Reports dyspnea with activity. Cardiovascular: No chest pain, no lower extremity edema. No palpitations. No paroxysmal nocturnal dyspnea. No orthopnea. No lightheadedness or dizziness. No syncopal episodes. Abdominal: Reports abdominal pain. positive for nausea, positive for vomiting. Reports diarrhea last bowel movement was yesterday. No constipation. No bloody or tarry stools reports loss of appetite. Genitourinary: No dysuria, increased frequency, urgency. No urinary retention. Musculoskeletal: No myalgias. positive for muscle weakness and leg cramps , no gait dysfunction, no frequent falls. No back pain. No neck pain. Integumentary: No wounds, no lesions. No rash or pruritus. No unusual bruising. No change in hair or nails. Neurologic: No aphasia. No facial droop. No change in mentation. No head injury. No headache. No paralysis. No paresthesia. Psychiatric: positive for depression. No anxiety. No mood swings. Endocrine: No abnormal blood sugars. No weight change. PAST MEDICAL HISTORY: Hypertension and hypertensive cardiovascular disease. Hyperlipidemia. Abdominal aortic thrombus COPD. CAD of [place] artery. Hypothyroidism. Osteoarthritis. GERD with esophagitis. Chronic low back pain status post PE LDF of L3 L5. PAST SURGICAL HISTORY: Left heart catheterization with PCI of the LCx 10/16/2021 Right knee arthroscopic surgery. Right total knee arthroplasty March 2022. P LDF L3 L5 with Tarlov cyst 1999 Hiatal hernia repair 1989. Colonoscopy 2019. Laparoscopic cholecystectomy 1989. Right elbow repair. Left heart catheterization with PCI of the proximal OM1 06/18/2019. Left heart catheterization with PCI of the RCA 11/17/2013. Left heart catheterization with PCI of the LAD 07/03/2007. Left tib-fib Fed ORIF. Left hand surgery. Right Qaudriceps tendon repair SOCIAL HISTORY: Patient used to smoke about pack every day at the age of 17 and he quit at the age of 27, he smokes marijuana, he drinks alcohol 1-2 drinks at a time no more than 4 drinks a week, he denies any other drug use or abuse. FAMILY HISTORY: Father at age of 80 from motor vehicle accident and had a history of dementia, mother at age of 87 with hypertension and atrial for relation, patient has one brother okay and had 4 sisters one with thyroid disease one with skin cancer and the other 2 are okay patient has 2 sons alive and well and one daughter alive and well as well. PHYSICAL EXAMINATION: General: 67-year-old male resting on the ER stretcher in no distress. HEENT: Head is atraumatic, normocephalic, pupils were equal round reactive to light and recommendation, extraocular muscle movement were intact, sclera nonicteric, conjunctivae were pale, mucous membranes of the mouth are somewhat dry. Neck: Supple, no JVP, normal carotid upstroke bilaterally, no lymphadenopathy. Chest: Decreased breath sounds at the bases, few rhonchi, minimal expiratory wheezes, no chest wall tenderness, no intercostal retractions. Heart: First heart sound is normal, second heart sound is normal there is LUIS 2/6 located at the left sternal border. Abdomen: Soft, nontender, nondistended, positive bowel sounds. Extremities: There is no edema no calf tenderness DP +2 bilaterally. Neurologic examination: Patient is awake alert and oriented X 3, cranial nerves II-12 appear grossly intact, muscle power were 5 out of 5 in upper extremities and 5 out of 5 in bilateral lower extremities, deep tendon reflexes normal bilaterally. ASSESSMENT AND PLAN: 1. Acute kidney injury due to acute tubular necrosis due to gastrointestinal fluid loss. Continue patient on on IV fluid in the form of normal saline at 75 cc/hr, nephrology consultation, repeat blood work in the morning. 2. Vomiting and diarrhea possibly due to marijuana use and gastitis. Continue patient on Protonix 40 mg twice daily. 3. Coronary artery disease status post multiple PCI's. Continue Plavix and ASA continue patient on isosorbide mononitrate 30 mg once every day, continue Repat mccray 140 mg subcu venously every 2 weeks, monitor lipid panel, keep LDL 5570. 4. Hypertension and hypertensive cardiovascular disease. Continue patient on amlodipine 10 mg orally daily, continue patient on clonidine 0.1 mg orally twice every day, monitor the patient blood pressure very closely. 5. Mixed hyperlipidemia. Patient is intolerant to statins. Continue with Repatha 140 mg subcutaneously every 2 weeks keep LDL less than 50 6. Hypothyroidism. Continue Synthroid 75 g orally once every day. 7. GERD with esophagitis and hiatal hernia. Continue patient on pantoprazole 40 mg oral twice daily. 8. Generalized anxiety disorder and depressive disorder. Continue patient on Escitalopram 20 mg orally once every day . 9. DVT prophylaxis. Continue patient on Lovenox 40 mg subcutaneously every 24 hours. 10. GI prophylaxis. Continue PPI. 11. Admit to inpatient. Estimated length of stay 2 midnights. 12. Patient is full code. Impression and plan of care have been directed as dictated by the signing physician. Mae Meléndez nurse practitioner acting as scribe for signing physician. Past Medical History Past Medical History: Atrial Fibrillation, Coronary Artery Disease (CAD), Chest Pain / Angina, COPD, Deep Vein Thrombosis (DVT), GERD/Reflux, GI Bleed, Hyperlipidemia, Hypertension, Myocardial Infarction (DC), Musculoskeletal Disorder, Osteoarthritis (OA), Pneumonia, Renal Disease, Syncope, Thyroid Disorder Additional Past Medical History / Comment(s): Paroxysmal afib, hx of fall with fx stenum/ribs, episodes of acute renal failure associated with dehydration, past melana stools, diverticulitis, IBS, return of hiatal hernia, bronchitis, hypothyroid, chronic low back pain with bilateral sciatica, lumbar DDD, past migraines, DJD, numbness/tingling bilateral legs/feet, 4 DVTs L leg surgically removed. ,covid + July 2021, hx of hematemesis with recent egd- erosions. Last Myocardial Infarction Date:: 10/15/21 History of Any Multi-Drug Resistant Organisms: None Reported Past Surgical History: Back Surgery, Cholecystectomy, Heart Catheterization, Heart Catheterization With Stent, Hernia Repair, Orthopedic Surgery Additional Past Surgical History / Comment(s): Back fusions L3-L5, ORIF L ankle, L hand fracture with surgery, R knee arthroscopy x2, R elbow tendon release, R shoulder arthroscopy, L shoulder arthroscopy, lumbar spine cyst removed, pain clinic procedures, taylor fundoplication, EGD, colonoscopy, 2019 arteriogram/thrombus extraction at [facility]. PTCA w/ 3 stents now. rt knee replacemnt, right quad repair Past Anesthesia/Blood Transfusion Reactions: No Reported Reaction Date of Last Stent Placement:: 10/15/21 Past Psychological History: No Psychological Hx Reported Smoking Status: Former smoker Past Alcohol Use History: Occasional Past Drug Use History: Marijuana - Past Family History Mother Family Medical History: No Reported History, Thyroid Disorder Additional Family Medical History / Comment(s): . Father Family Medical History: Coronary Artery Disease (CAD), Diabetes Mellitus Additional Family Medical History / Comment(s): Father had CABG. He at the age of 84 yrs in a MVA. Sister(s) Family Medical History: Cancer Additional Family Medical History / Comment(s): Sister #1 skin cancer, sister #2 thyroid cancer. Medications and Allergies Home Medications Medication Instructions Recorded Confirmed Type Levothyroxine Sodium [Synthroid] 75 mcg PO DAILY 05/04/16 10/25/22 History Escitalopram [Lexapro] 20 mg PO DAILY 12/16/16 10/25/22 History Nitroglycerin Sl Tabs [Nitrostat] 0.4 mg SL Q5M PRN 07/23/21 10/25/22 History Aspirin 81 mg PO DAILY #30 tab 10/17/21 10/25/22 Rx Pantoprazole [Protonix] 40 mg PO AC-BID #60 tab 10/22/21 10/25/22 Rx cloNIDine HCL [Catapres] 0.1 mg PO BID tab 10/22/21 10/25/22 Rx Evolocumab [Repatha Sureclick] 140 mg SQ Q14D 04/20/22 10/25/22 History Isosorbide Mononitrate ER [Imdur] 30 mg PO DAILY 04/20/22 10/25/22 History Pregabalin [Lyrica] 75 mg PO BID 06/10/22 10/25/22 History amLODIPine [Norvasc] 10 mg PO DAILY 06/10/22 10/25/22 History Clopidogrel [Plavix] 75 mg PO DAILY 09/24/22 10/25/22 History Dicyclomine [Bentyl] 10 mg PO TID PRN 09/24/22 10/25/22 History Albuterol Sulfate [Proair 1 puff INHALATION RT-Q6H PRN 10/07/22 10/25/22 History Respiclick] Allergies Allergy/AdvReac Type Severity Reaction Status Date / Time rivaroxaban [From Xarelto] AdvReac Severe Nausea & Verified 10/25/22 06:53 Vomiting & Diarrhea,cramps,sweating paroxetine HCl [From Paxil] AdvReac Unknown Nausea & Verified 10/25/22 06:53 Vomiting & Diarrhea,cramps,sweating apixaban [From Eliquis] AdvReac Nausea & Verified 10/25/22 06:53 Vomiting & Diarrhea,cramps,sweating atorvastatin [From Lipitor] AdvReac Nausea & Verified 10/25/22 06:53 Vomiting & Diarrhea,cramps,sweating Beta-Blockers AdvReac Nausea & Verified 10/25/22 06:53 (Beta-Adrenergic Bloc Vomiting & Diarrhea,cramps,sweating gabapentin AdvReac Nausea & Verified 10/25/22 06:53 Vomiting & Diarrhea,cramps,sweating [id number] Reductase AdvReac Nausea & Verified 10/25/22 06:53 Inhibitor Vomiting & Diarrhea,cramps,sweating warfarin AdvReac Nausea & Verified 10/25/22 06:53 Vomiting & Diarrhea,cramps,sweating Physical Exam Vitals: Vital Signs Temp Pulse Resp BP Pulse Ox 10/25/22 12:00 98.1 F 64 18 142/88 99 10/25/22 11:00 66 18 157/85 99 10/25/22 10:00 67 18 142/79 98 10/25/22 09:00 68 18 133/84 99 10/25/22 07:21 83 18 145/83 98 10/25/22 02:28 98.2 F 10/25/22 02:00 88 18 149/90 96 10/25/22 01:00 86 18 140/87 94 L 10/25/22 00:52 94 L 10/24/22 21:31 97.5 F L 122 H 28 H 141/99 98 Intake and Output 10/24/22 10/25/22 10/25/22 22:59 06:59 14:59 Other: Weight 104.326 kg Results CBC & Chem 7: 10/24/22 22:00 10/25/22 07:54 Labs: Abnormal Lab Results - Last 24 Hours (Table) 10/24/22 10/24/22 10/25/22 Range/Units 22:00 23:19 07:54 WBC 15.1 H (3.8-10.6) k/uL RBC 6.24 H (4.30-5.90) m/uL Hgb 18.4 H D (13.0-17.5) gm/dL Neutrophils # 12.5 H (1.3-7.7) k/uL Carbon Dioxide 15 L 18 L (22-30) mmol/L BUN 23 H 28 H (9-20) mg/dL Creatinine 3.20 H 2.06 H (0.66-1.25) mg/dL Glucose 130 H 108 H (74-99) mg/dL Calcium 11.6 H (8.4-10.2) mg/dL Alkaline Phosphatase 160 H (38-126) U/L Total Protein 9.8 H (6.3-8.2) g/dL Albumin 5.9 H (3.5-5.0) g/dL Urine Protein (Negative) Urine Ketones (Negative) Urine WBC (0-5) /hpf Hyaline Casts (0-2) /lpf Urine Mucus (None) /hpf 10/25/22 Range/Units 10:40 WBC (3.8-10.6) k/uL RBC (4.30-5.90) m/uL Hgb (13.0-17.5) gm/dL Neutrophils # (1.3-7.7) k/uL Carbon Dioxide (22-30) mmol/L BUN (9-20) mg/dL Creatinine (0.66-1.25) mg/dL Glucose (74-99) mg/dL Calcium (8.4-10.2) mg/dL Alkaline Phosphatase (38-126) U/L Total Protein (6.3-8.2) g/dL Albumin (3.5-5.0) g/dL Urine Protein 1+ H (Negative) Urine Ketones Trace H (Negative) Urine WBC 7 H (0-5) /hpf Hyaline Casts 39 H (0-2) /lpf Urine Mucus Few H (None) /hpf
[2022-10-25] MEDS: ISOSORBIDE MONONITRATE ER 30 MG TAB.ER.24H PO SCH (15:00)
[2022-10-25] MEDS: CLOPIDOGREL 75 MG TAB PO SCH (15:00)
[2022-10-25] MEDS: amLODIPine 10 MG TAB PO SCH (15:00)
[2022-10-25] MEDS: PANTOPRAZOLE 40 MG TABLET PO SCH (18:17)
[2022-10-25] MEDS: cloNIDine HCL 0.1 MG TAB PO SCH (21:27)
[2022-10-25] MEDS: PREGABALIN 75 MG CAP PO SCH (21:28)
[2022-10-26] MEDS: MORPHINE SULFATE 4 MG/ML SYRINGE IV PRN ×3 (02:07→12:39)
[2022-10-26] MEDS ORDERED: LEVOTHYROXINE 75 MCG TAB PO SCH (06:30)
[2022-10-26] MEDS: PANTOPRAZOLE 40 MG TABLET PO SCH (06:30)
[2022-10-26 08:00] VITALS: RESP 19
[2022-10-26] MEDS: PREGABALIN 75 MG CAP PO SCH (08:07)
[2022-10-26] MEDS: ISOSORBIDE MONONITRATE ER 30 MG TAB.ER.24H PO SCH (08:07)
[2022-10-26] MEDS: CLOPIDOGREL 75 MG TAB PO SCH (08:07)
[2022-10-26] MEDS: cloNIDine HCL 0.1 MG TAB PO SCH (08:07)
[2022-10-26] MEDS: amLODIPine 10 MG TAB PO SCH (08:07)
[2022-10-26] MEDS: SODIUM CHLORIDE 0.9% 1,000 ML IV SCH (08:09)
[2022-10-26 08:31] LABS: African American GFR (CKD) >90 (>60 ml/min/1.73 sqM); Anion Gap 8 mmol/L; Blood Urea Nitrogen 19 mg/dL (9-20); Carbon Dioxide 23 mmol/L (22-30); Chloride 107 mmol/L (98-107); Glucose 118 mg/dL (74-99); Magnesium 1.8 mg/dL (1.6-2.3); Non-African American GFR(CKD) 81 (>60 ml/min/1.73 sqM); Potassium 4.3 mmol/L (3.5-5.1); Sodium 138 mmol/L (137-145)
[2022-10-26] MEDS ORDERED: ENOXAPARIN 40 MG/0.4 ML SYRINGE SQ SCH (09:00)
[2022-10-26] MEDS ORDERED: ESCITALOPRAM 20 MG TAB PO SCH (09:00)
[2022-10-26] MEDS ORDERED: ASPIRIN 81 MG PO SCH (09:00)
--- NOTE | 2022-10-26 10:05 | P.PN ---
Subjective Patient is seen in follow for acute kidney injury. Renal function back to baseline. Calcium level normal. Oral intake is good. No vomiting or diarrhea today. Vital signs are stable. General: No acute distress. HEENT: Head exam is unremarkable. LUNGS: No audible rhonchi or wheezes. HEART: Rate and Rhythm are regular. ABDOMEN: Nontender. EXTREMITITES: No edema. Objective - Vital Signs Vital signs: Vital Signs Temp 98.1 F 10/26/22 07:45 Pulse 64 10/26/22 07:45 Resp 19 10/26/22 07:45 BP 149/84 10/26/22 07:45 Pulse Ox 97 10/26/22 07:45 FiO2 Intake & Output 10/25/22 10/26/22 10/26/22 18:59 06:59 18:59 Weight 104.326 kg Other: Voiding Method Urinal # Voids 3 - Labs CBC & Chem 7: 10/24/22 22:00 10/26/22 07:59 Labs: Abnormal Lab Results - Last 24 Hours (Table) 10/25/22 10/26/22 Range/Units 10:40 07:59 Glucose 118 H (74-99) mg/dL Urine Protein 1+ H (Negative) Urine Ketones Trace H (Negative) Urine WBC 7 H (0-5) /hpf Hyaline Casts 39 H (0-2) /lpf Urine Mucus Few H (None) /hpf Assessment and Plan Plan: assessment: 1. Acute kidney injury secondary to vasomotor nephropathy secondary to hypercalcemia and hypovolemia. Creatinine 3.2 on admission - 0.97 today. Baseline creatinine near 1. No hydronephrosis noted on CAT scan. 2. Metabolic acidosis secondary to acute kidney injury and GI losses. 3. Hypercalcemia secondary to volume contraction. PTH related peptide negative dated 09/25/2022. Serum and urine immunofixation negative. PTH elevated at 142 in September 2022. Parathyroid nuclear scan negative September 2022. Vitamin D 29. 1,25D3 level 83. Albumin elevated at 5.9. Corrected calcium in the normal range. 4. Benign hypertension. Stable. Plan: Hep-Lock IV fluids. Encouraged oral intake. Avoid nephrotoxins. Continue to monitor renal function and urine output.
[2022-10-26 10:30] LABS: Urine Alcohol Negative (Negative); Urine Barbiturate Negative (Negative); Urine Cocaine Negative (Negative); Urine Methadone Negative (Negative); Urine Opiates Positive (Negative); Urine Phencyclidine Negative (Negative)
--- NOTE | 2022-10-26 14:06 | P.DS ---
Providers Date of admission: 10/25/22 02:31 Expected date of discharge: 10/26/22 Attending physician: Sammie Mercedes Consults: 10/25/22 02:31 Consult Physician Routine Consulting Provider: Rafaela Browne Consult Reason/Comments: JOSIE on CKD Do you want consulting provider notified?: Yes, Notify in am Primary care physician: Sammie Mercedes Hospital Course: HISTORY OF PRESENT ILLNESS: This is a 67-year-old male with a previous medical history significant for hypertension and hypertensive cardiovascular disease, hyperlipidemia, chronic obstructive pulmonary disease, CAD, hypothyroidism, osteoarthritis status post right total knee arthroplasty, GERD with esophagitis, major depressive disorder and anxiety disorder, history of quad tendon tear treated at [facility] for repair with and had intraparenchymal bleed that was resolved patient ended up admitted to the hospital multiple times after that after he was getting off the pain medication thought due to withdrawal from codeine, history of EEG that found small hiatal hernia and superficial erosions at the GE junction consistent with LA grade B reflux esophagitis. Patient states that he woke up around 6 AM and went to the bathroom to urinate that he went back to bed syndrome onset of cramping in the lower abdomen and he then proceeded to have 3 normal consistency bowel movements. The fourth bowel movement was loose. He then developed vomiting and dry heaves. No fever or chills. Regarding marijuana use he states he has cut back but continues to use it on a regular basis. EKG sinus tachycardia with a first-degree block with a ventricular rate of 110. CAT scan of the abdomen and pelvis without contrast revealed no hydronephrosis or ureteral lithiasis. Bowel loops are nondilated. Appendix normal. Diverticulosis of the sigmoid colon. No evidence of acute diverticulitis. No acute inflammatory processes seen involving the bowel. No acute process within the abdomen or pelvis. WBC 15.1, hemoglobin 18.4, platelet count 289. Sodium 139, potassium 4.2, chloride 101, CO2 15, initial BUN 23 and now at 28. Creatinine initially 3.2 now 2.06. Blood sugar 130. Alkaline phosphatase 160 and other liver function tests are normal. CK is 116. Lipase 80. Urinalysis reveals WBC 7, ketones trace. Patient is seen today in the emergency center waiting for a bed on the [facility] floor. Nephrology is on consult, patient is on IV fluids at 75 mL per hour. Repeat blood work ordered for tomorrow. 10/26: Patient is seen today on the observation unit. he has been seen and followed by nephrology. He is currently off IV and fluids. His renal function has normalized with a BUN of 19, creatinine 0.97, sodium is 138 potassium 4.3. Patient states that the nausea, vomiting and diarrhea have completely resolved. He was able to eat breakfast and lunch with no nausea. Patient will be discharged home today in stable condition. DISCHARGE DIAGNOSES: 1. Acute kidney injury due to acute tubular necrosis due to gastrointestinal fluid loss. 2. Vomiting and diarrhea possibly due to marijuana use and gastitis. 3. Coronary artery disease status post multiple PCI's. 4. Hypertension and hypertensive cardiovascular disease. 5. Mixed hyperlipidemia. Patient is intolerant to statins. 6. Hypothyroidism. 7. GERD with esophagitis and hiatal hernia. 8. Generalized anxiety disorder and depressive disorder. Discharge plan: Home Greater than 35 minutes was utilized and coordinating patient's discharge. Impression and plan of care have been directed as dictated by the signing physician. Mae Meléndez nurse practitioner acting as scribe for signing physician. members of the leg. There is no febrile with patient Patient Condition at Discharge: Stable Plan - Discharge Summary New Discharge Prescriptions: Continue Levothyroxine Sodium [Synthroid] 75 mcg PO DAILY Escitalopram [Lexapro] 20 mg PO DAILY Pantoprazole [Protonix] 40 mg PO AC-BID #60 tab cloNIDine HCL [Catapres] 0.1 mg PO BID tab Isosorbide Mononitrate ER [Imdur] 30 mg PO DAILY Pregabalin [Lyrica] 75 mg PO BID Dicyclomine [Bentyl] 10 mg PO TID PRN PRN Reason: ibs Clopidogrel [Plavix] 75 mg PO DAILY Albuterol Sulfate [Proair Respiclick] 1 puff INHALATION RT-Q6H PRN PRN Reason: Shortness Of Breath Nitroglycerin Sl Tabs [Nitrostat] 0.4 mg SL Q5M PRN PRN Reason: Chest Pain Aspirin 81 mg PO DAILY #30 tab Evolocumab [Repatha Sureclick] 140 mg SQ Q14D amLODIPine [Norvasc] 10 mg PO DAILY Discharge Medication List Levothyroxine Sodium [Synthroid] 75 mcg PO DAILY 05/04/16 [History] Escitalopram [Lexapro] 20 mg PO DAILY 12/16/16 [History] Nitroglycerin Sl Tabs [Nitrostat] 0.4 mg SL Q5M PRN 07/23/21 [History] Aspirin 81 mg PO DAILY #30 tab 10/17/21 [Rx] Pantoprazole [Protonix] 40 mg PO AC-BID #60 tab 10/22/21 [Rx] cloNIDine HCL [Catapres] 0.1 mg PO BID tab 10/22/21 [Rx] Evolocumab [Repatha Sureclick] 140 mg SQ Q14D 04/20/22 [History] Isosorbide Mononitrate ER [Imdur] 30 mg PO DAILY 04/20/22 [History] Pregabalin [Lyrica] 75 mg PO BID 06/10/22 [History] amLODIPine [Norvasc] 10 mg PO DAILY 06/10/22 [History] Clopidogrel [Plavix] 75 mg PO DAILY 09/24/22 [History] Dicyclomine [Bentyl] 10 mg PO TID PRN 09/24/22 [History] Albuterol Sulfate [Proair Respiclick] 1 puff INHALATION RT-Q6H PRN 10/07/22 [History] Follow up Appointment(s)/Referral(s): Sammie Mercedes MD [Primary Care Provider] - 1 Week Rafaela Browne MD [STAFF PHYSICIAN] - 2 Weeks Discharge Disposition: HOME SELF-CARE
[2022-10-26 14:24] VITALS: BP 122/64; PULSE 71; TEMP 98
== END 2022-10-26 14:53 | disposition home or self-care (01) | DRG 896 ==
LOC: EC 21:00 → 4SSUR 10-25 02:31 → 1SOBS 10-25 15:54
PROVIDERS: ADMIT Internal Medicine; ATTEND Internal Medicine
DX: F12.188 Cannabis abuse with other cannabis-induced disorder (principal); N17.0 Acute kidney failure with tubular necrosis; J44.0 Chronic obstructive pulmonary disease with (acute) lower respiratory infection; E86.0 Dehydration; I25.10 Atherosclerotic heart disease of native coronary artery without angina pectoris; I12.9 Hypertensive chronic kidney disease with stage 1 through stage 4 chronic kidney disease, or unspecified chronic kidney disease; N18.9 Chronic kidney disease, unspecified; E78.5 Hyperlipidemia, unspecified; E03.9 Hypothyroidism, unspecified; K21.00 Gastro-esophageal reflux disease with esophagitis, without bleeding; K44.9 Diaphragmatic hernia without obstruction or gangrene; F32.A Depression, unspecified; F41.1 Generalized anxiety disorder; E83.52 Hypercalcemia; R11.2 Nausea with vomiting, unspecified; G89.29 Other chronic pain; M54.50 Low back pain, unspecified; I48.0 Paroxysmal atrial fibrillation; I25.2 Old myocardial infarction; K21.9 Gastro-esophageal reflux disease without esophagitis; M19.90 Unspecified osteoarthritis, unspecified site; Z88.8 Allergy status to other drugs, medicaments and biological substances; Z87.01 Personal history of pneumonia (recurrent); Z87.19 Personal history of other diseases of the digestive system
CPT/HCPCS: 36415; 74176; 80048; 80053; 80306; 81001; 82150; 82550; 82553; 83690; 83735; 85025; 86316; 93005; 96361; 96374; 96375; 99285

== ENCOUNTER → 2022-11-15 | Outpatient (CLI) | payer MEDICARE ==
[2022-11-15 11:33] VITALS: BP 122/78; PULSE 98; RESP 15; TEMP 98.2
--- NOTE | 2022-11-15 14:37 | P.PAINPG ---
PQRS Measure Charge Sheet Comment: A 67 yr old male with a history of severe and chronic LBP secondary to L3-L5 fusion, post laminectomy syndrome presents today for evaluation. Pain level is provoked at 7 /10 in intensity, constant, localized in the lumbar spine, sharp in character w shooting towards the BLEs. Pain is provoked by walking for periods of 20 min or more. Pain is alleviated with heat, THC buttocks, repositioning and rest. Oswestry axial pain score at 24. Interventional pain procedures completed include BL RFA L3-L4 & L5-S1 (Jul 2020) Patient is currently on THC products Patient denies any side effects of the medication(s), denies excessive drowsiness or sleepiness, denies suicidal ideation and reports that the current pain medication is helping to control the pain and improve activities of daily living. Patient denies any motor or sensory deficits. Patient denies any fever or night sweats, denies any change in the bowel movements or urination. Physical Examination: -Constitutional: Cooperative. Not in acute distress . - Neurologic: Cranial nerve II to XII intact. No focal neurological deficits. - Psychatric: Alert & oriented x 3. Matching mood & appropriate affect. Judgment and insight intact. - Musculoskeletal: Cervical spine: Muscle bulk/ tone/ strength in the bilateral upper extremities normal Vertebral body tenderness to palpation over Spurling test positive Distraction test positive Facet loading test positive TTP Thoracic spine Muscle bulk / tone/ strength in the bilateral paraspinal muscles normal Vertebral body tender to palpation over Facet loading test positive TTP Lumbar spine: Motor bulk/ tone/ strength lower extremities , thigh and legs : 5/5 Deep tendon reflexes : Normal Knee Jerk. Normal Ankle Jerk . Vertebral body tenderness to palpation over Norman Test positive Lumbar Facet Loading Test positive Straight Leg Raise: positive at 30 degrees right side/ left side Gaenslen's Test positive Sacral spine : Severe tenderness over the Sacroiliac joint: right side / left side Range of motion: Flexion of the lumbar spine <60 degrees Range of motion: Extension of the lumbar spine <20 degrees Gaenslen's Test positive right side / left side Sam test: positive right side / left side Thigh Thrust Test positive right side / left side Sacral Thrust Test positive right side / left side Imaging: MRI noncontrast of the lumbar spine from 12/17/19 reviewed Assessment and plan: Chronic LBP secondary to lumbar DDD, spondylosis with facet arthropathy without myelopathy Recommendation of x ray of the lumbar spine M51.36. May need additional testing if indicated. PT x 6 wks M51.36 Follow up in 6 wks for a re evaluation. All questions answered. I have spent less than 30 minutes on patient care today. Dr Barger was available by phone for the evaluation of this patient. The time was used to review the medical records including relevant urine studies and Prescription history (MAPs), review of the available imaging, evaluation and examination of the patient, coordination of care with the medical staff and if applicable referring physicians, as well as creation of the medical record PQRS Narrative: Smoking Status Former smoker Narcotic Agreement Date Signed 12/25/14 Home Medications: Ambulatory Orders Levothyroxine Sodium [Synthroid] 75 mcg PO DAILY 05/04/16 Escitalopram [Lexapro] 20 mg PO DAILY 12/16/16 Nitroglycerin Sl Tabs [Nitrostat] 0.4 mg SL Q5M PRN 07/23/21 Aspirin 81 mg PO DAILY #30 tab 10/17/21 Pantoprazole [Protonix] 40 mg PO AC-BID #60 tab 10/22/21 cloNIDine HCL [Catapres] 0.1 mg PO BID tab 10/22/21 Evolocumab [Repatha Sureclick] 140 mg SQ Q14D 04/20/22 Isosorbide Mononitrate ER [Imdur] 30 mg PO DAILY 04/20/22 Pregabalin [Lyrica] 75 mg PO BID 06/10/22 amLODIPine [Norvasc] 10 mg PO DAILY 06/10/22 Clopidogrel [Plavix] 75 mg PO DAILY 09/24/22 Dicyclomine [Bentyl] 10 mg PO TID PRN 09/24/22 Albuterol Sulfate [Proair Respiclick] 1 puff INHALATION RT-Q6H PRN 10/07/22 Controlled Substance Measures - Controlled Substance Measures Is patient prescribed a controlled substance at discharge?: No
== END ==
LOC: PNWHC3 08:41
PROVIDERS: ATTEND Specialist
DX: M51.36 Other intervertebral disc degeneration, lumbar region (principal); M47.816 Spondylosis without myelopathy or radiculopathy, lumbar region; G89.29 Other chronic pain; Z87.891 Personal history of nicotine dependence; Z88.8 Allergy status to other drugs, medicaments and biological substances; Z88.6 Allergy status to analgesic agent; Z88.1 Allergy status to other antibiotic agents
CPT/HCPCS: 99211

== ENCOUNTER → 2022-11-15 | Outpatient (CLI) | payer MEDICARE ==
--- NOTE | 2022-11-15 10:09 | XR ---
EXAM TYPE: LUMBAR SPINE X RAY SERIES COMPARISON: None HISTORY: Pain TECHNIQUE: 4 views are submitted. FINDINGS: Surgical clips in the gallbladder fossa there is diffuse osteopenia. There is postsurgical change at levels L3-S1 with grade 1 anterolisthesis L3-4 and L4-5. No compression deformities. Large anterior s purring noted in the mid and upper lumbar spine. Pedicles of the nonsurgical levels are intact. IMPRESSION: 1. Diffuse osteopenia with postoperative changes
== END | disposition home or self-care (01) ==
LOC: RADXRMAIN 09:48
PROVIDERS: ATTEND Physician Assistant Medical
DX: M51.36 Other intervertebral disc degeneration, lumbar region (principal); M85.88 Other specified disorders of bone density and structure, other site; Z98.890 Other specified postprocedural states
CPT/HCPCS: 72100

== ENCOUNTER 2022-12-09 05:13 | Inpatient (IN) | payer MEDICARE ==
[2022-12-09] MEDS ORDERED: MORPHINE SULFATE 4 MG/ML SYRINGE IVP STA (06:15)
[2022-12-09] MEDS ORDERED: SODIUM CHLORIDE 0.9% 1,000 ML IV STA ×2 (06:15→09:57)
[2022-12-09] MEDS ORDERED: ONDANSETRON 4 MG/2 ML VIAL IVP STA (06:15)
--- NOTE | 2022-12-09 06:17 | ED ---
Nausea/Vomiting/Diarrhea HPI - General Chief complaint: Nausea/Vomiting/Diarrhea Stated complaint: Vomitting Time Seen by Provider: 12/09/22 06:06 Source: patient Mode of arrival: ambulatory - History of Present Illness Initial comments: The patient is a 67-year-old gentleman with a history of hypertension, hyperlipidemia, coronary artery disease, peripheral arterial disease and other comorbidities who presents emergency room with complaints of persistent nausea vomiting and body cramping. Patient states this started yesterday morning. He has some mild abdominal pain. States that after retching and throwing up multiple times he has blood streaked vomit. He is on Plavix. Patient states that he becomes very winded with ambulating. Denies any cough congestion, hemoptysis, chest pain. Denies any cuts patient diarrhea, dysuria or hematuria. Denies any sick contacts. States he was taking medical marijuana however quit on December 07. - Related Data Home Medications Medication Instructions Recorded Confirmed Levothyroxine Sodium [Synthroid] 75 mcg PO DAILY 05/04/16 10/25/22 Escitalopram [Lexapro] 20 mg PO DAILY 12/16/16 10/25/22 Nitroglycerin Sl Tabs [Nitrostat] 0.4 mg SL Q5M PRN 07/23/21 10/25/22 Evolocumab [Repatha Sureclick] 140 mg SQ Q14D 04/20/22 10/25/22 Isosorbide Mononitrate ER [Imdur] 30 mg PO DAILY 04/20/22 10/25/22 Pregabalin [Lyrica] 75 mg PO BID 06/10/22 10/25/22 amLODIPine [Norvasc] 10 mg PO DAILY 06/10/22 10/25/22 Clopidogrel [Plavix] 75 mg PO DAILY 09/24/22 10/25/22 Dicyclomine [Bentyl] 10 mg PO TID PRN 09/24/22 10/25/22 Albuterol Sulfate [Proair 1 puff INHALATION RT-Q6H PRN 10/07/22 10/25/22 Respiclick] Previous Rx's Medication Instructions Recorded Aspirin 81 mg PO DAILY #30 tab 10/17/21 Pantoprazole [Protonix] 40 mg PO AC-BID #60 tab 10/22/21 cloNIDine HCL [Catapres] 0.1 mg PO BID tab 10/22/21 Allergies Allergy/AdvReac Type Severity Reaction Status Date / Time rivaroxaban [From Xarelto] AdvReac Severe Nausea & Verified 10/25/22 06:53 Vomiting & Diarrhea,cramps,sweating paroxetine HCl [From Paxil] AdvReac Unknown Nausea & Verified 10/25/22 06:53 Vomiting & Diarrhea,cramps,sweating apixaban [From Eliquis] AdvReac Nausea & Verified 10/25/22 06:53 Vomiting & Diarrhea,cramps,sweating atorvastatin [From Lipitor] AdvReac Nausea & Verified 10/25/22 06:53 Vomiting & Diarrhea,cramps,sweating Beta-Blockers AdvReac Nausea & Verified 10/25/22 06:53 (Beta-Adrenergic Bloc Vomiting & Diarrhea,cramps,sweating gabapentin AdvReac Nausea & Verified 10/25/22 06:53 Vomiting & Diarrhea,cramps,sweating [id number]-[id number]-JpI Reductase AdvReac Nausea & Verified 10/25/22 06:53 Inhibitor Vomiting & Diarrhea,cramps,sweating warfarin AdvReac Nausea & Verified 10/25/22 06:53 Vomiting & Diarrhea,cramps,sweating Review of Systems ROS Statement: Those systems with pertinent positive or pertinent negative responses have been documented in the HPI. ROS Other: All systems not noted in ROS Statement are negative. Past Medical History Past Medical History: Atrial Fibrillation, Coronary Artery Disease (CAD), Chest Pain / Angina, COPD, Deep Vein Thrombosis (DVT), GERD/Reflux, GI Bleed, Hyperli pidemia, Hypertension, Myocardial Infarction (CA), Musculoskeletal Disorder, Osteoarthritis (OA), Pneumonia, Renal Disease, Syncope, Thyroid Disorder Additional Past Medical History / Comment(s): Paroxysmal afib, hx of fall with fx stenum/ribs, episodes of acute renal failure associated with dehydration, past melana stools, diverticulitis, IBS, return of hiatal hernia, bronchitis, hypothyroid, chronic low back pain with bilateral sciatica, lumbar DDD, past migraines, DJD, numbness/tingling bilateral legs/feet, 4 DVTs L leg surgically removed. ,covid + July 2021, hx of hematemesis with recent egd- erosions. Last Myocardial Infarction Date:: 10/15/21 History of Any Multi-Drug Resistant Organisms: None Reported Past Surgical History: Back Surgery, Cholecystectomy, Heart Catheterization, Heart Catheterization With Stent, Hernia Repair, Orthopedic Surgery Additional Past Surgical History / Comment(s): Back fusions L3-L5, ORIF L ankle, L hand fracture with surgery, R knee arthroscopy x2, R elbow tendon release, R shoulder arthroscopy, L shoulder arthroscopy, lumbar spine cyst removed, pain clinic procedures, taylor fundoplication, EGD, colonoscopy, 2019 arteriogram /thrombus extraction at [facility]. PTCA w/ 3 stents now. rt knee replacemnt, right quad repair Past Anesthesia/Blood Transfusion Reactions: No Reported Reaction Date of Last Stent Placement:: 10/15/21 Past Psychological History: No Psychological Hx Reported Smoking Status: Former smoker Past Alcohol Use History: Occasional Past Drug Use History: Marijuana - Past Family History Mother Family Medical History: No Reported History, Thyroid Disorder Additional Family Medical History / Comment(s): . Father Family Medical History: Coronary Artery Disease (CAD), Diabetes Mellitus Additional Family Medical History / Comment(s): Father had CABG. He at the age of 84 yrs in a MVA. Sister(s) Family Medical History: Cancer Additional Family Medical History / Comment(s): Sister #1 skin cancer, sister #2 thyroid cancer. General Exam Limitations: no limitations General appearance: alert Head exam: Present: atraumatic Eye exam: Present: normal appearance, PERRL ENT exam: Present: normal exam Neck exam: Present: normal inspection Respiratory exam: Present: normal lung sounds bilaterally Cardiovascular Exam: Present: tachycardia GI/Abdominal exam: Present: soft Extremities exam: Present: full ROM Back exam: Present: full ROM Neurological exam: Present: alert, oriented X3, CN II-XII intact Psychiatric exam: Present: normal affect, normal mood Skin exam: Present: warm, dry Course Vital Signs 12/09/22 12/09/22 12/09/22 05:31 07:00 11:11 Temperature 97.8 F 98.8 F Pulse Rate 109 H 75 105 H Respiratory 22 16 18 Rate Blood Pressure 109/79 160/117 133/96 O2 Sat by Pulse 95 98 96 Oximetry 12/09/22 13:11 Temperature Pulse Rate Respiratory Rate Blood Pressure O2 Sat by Pulse 96 Oximetry - Reevaluation(s) Reevaluation #1: 12/09/22 14:05 Patient is feeling better after pain medication IV fluids and Zofran emergency room. I discussed admission for observation given the elevated troponin, lactic acidosis and gastric enteritis. He understands agrees to this plan. Medical Decision Making - Medical Decision Making Was pt. sent in by a medical professional or institution ([facility], SITE PHYSICIAN, urgent care, hospital, or fpc...) When possible be specific @ -[No] Did you speak to anyone other than the patient for history (EMS, parent, family, police, friend...)? What history was obtained from this source @ -[No] Did you review nursing and triage notes (agree or disagree)? Why? @ -[I reviewed and agree with nursing and triage notes] Were old charts reviewed (outside hosp., previous admission, EMS record, old EKG, old radiological studies, urgent care reports/EKG's, fpc records)? Report findings @ -Yes old charts reviewed. Patient's medical history including medications and previous imaging studies were reviewed. Differential Diagnosis (chest pain, altered mental status, abdominal pain women, abdominal pain men, vaginal bleeding, weakness, fever, dyspnea, syncope, headache, dizziness, GI bleed, back pain, seizure, CVA, palpatations, mental health, musculoskeletal)? @ -Bowel obstruction, colitis, diverticulitis, COVID-19, influenza, cannabinoid hyperemesis EKG interpreted by me (3pts min.). @ -EKG showing sinus rhythm with first-degree AV block, right bundle-branch block, rate of 99 bpm, nonspecific inferior T changes, EKG is consistent with 2021 EKG in our system. X-rays interpreted by me (1pt min.). @ -[None done] CT interpreted by me (1pt min.). @ -Computed tomography scan shows gastric enteritis. There is no mass or obstruction or other acute changes seen. U/S interpreted by me (1pt. min.). @ -[None done] What testing was considered but not performed or refused? (CT, X-rays, U/S, labs)? Why? @ -[None] What meds were considered but not given or refused? Why? @ -[None] Did you discuss the management of the patient with other professionals (professionals i.e. , [facility], SITE PHYSICIAN, lab, RT, psych nurse, drug abuse social worker, service cleaner, teacher, senior administrative services officer, case picker)? Give summary @ -[No] Was smoking cessation discussed for >3mins.? @ -[No] Was critical care preformed (if so, how long)? @ -[No] Were there social determinants of health that impacted care today? How? (Homelessness, low income, unemployed, alcoholism, drug addiction, transportation, low edu. Level, literacy, decrease access to med. care, assisted, rehab)? @ -[No] Was there de-escalation of care discussed even if they declined (Discuss DNR or withdrawal of care, Hospice)? DNR status @ -[No] What co-morbidities impacted this encounter? (DM, HTN, Smoking, COPD, CAD, Cancer, CVA, ARF, Chemo, Hep., AIDS, mental health diagnosis, sleep apnea, morbid obesity)? @ -Hypertension, coronary artery disease, hyperlipidemia. Was patient admitted / discharged? Hospital course, mention meds given and route, prescriptions, significant lab abnormalities, going to OR and other pertinent info. @ -patient will be admitted to the hospital for further evaluation and repeat troponins given the elevated troponin and lactic acidosis. He will be hydrated for the renal failure. He is stable at this time and is feeling much better. I discussed the admission plan and workup with attending ED physician Dr. Minor today. Undiagnosed new problem with uncertain prognosis? @ -[No] Drug Therapy requiring intensive monitoring for toxicity (Heparin, Nitro, Insulin, Cardizem)? @ -[No] Were any procedures done? @ -[No] Diagnosis/symptom? @ elevated troponin, COVID-19, gastroenteritis, dehydration, renal failure, metabolic acidosis or Chronic, or Acute on Chronic? @ -acute] Uncomplicated (without systemic symptoms) or Complicated (systemic symptoms)? @ complicatedeffects of treatment? @ -[No] Exacerbation, Progression, or Severe Exacerbation? @ -[No] Poses a threat to life or bodily function? How? (Chest pain, USA, CA, pneumonia, PE, COPD, DKA, ARF, appy, cholecystitis, CVA, Diverticulitis, Homicidal, Suicidal, threat to staff... and all critical care pts) @ -[the patient is at risk of worsening renal failure, permanent disability, if condition is not address and reversed - Lab Data Result diagrams: 12/09/22 06:07 12/09/22 08:03 Lab Results 12/09/22 12/09/22 12/09/22 Range/Units 06:07 06:49 08:03 WBC 14.9 H (3.8-10.6) k/uL RBC 6.75 H (4.30-5.90) m/uL Hgb 19.8 H* (13.0-17.5) gm/dL Hct 56.4 H (39.0-53.0) % MCV 83.5 (80.0-100.0) fL MCH 29.4 (25.0-35.0) pg MCHC 35.2 (31.0-37.0) g/dL RDW 13.9 (11.5-15.5) % Plt Count 356 (150-450) k/uL MPV 8.7 Neutrophils % 83 % Lymphocytes % 12 % Monocytes % 4 % Eosinophils % 0 % Basophils % 0 % Neutrophils # 12.4 H (1.3-7.7) k/uL Lymphocytes # 1.8 (1.0-4.8) k/uL Monocytes # 0.6 (0-1.0) k/uL Eosinophils # 0.1 (0-0.7) k/uL Basophils # 0.0 (0-0.2) k/uL Sodium (137-145) mmol/L Potassium (3.5-5.1) mmol/L Chloride (98-107) mmol/L Carbon Dioxide (22-30) mmol/L Anion Gap mmol/L BUN (9-20) mg/dL Creatinine (0.66-1.25) mg/dL Est GFR (CKD-EPI)AfAm (>60 ml/min/1.73 sqM) Est GFR (CKD-EPI)NonAf (>60 ml/min/1.73 sqM) Glucose (74-99) mg/dL Lactic Ac Sepsis Rflx Plasma Lactic Acid Chacorta 3.0 H* (0.7-2.0) mmol/L Calcium (8.4-10.2) mg/dL Magnesium (1.6-2.3) mg/dL Total Bilirubin (0.2-1.3) mg/dL AST (17-59) U/L ALT (4-49) U/L Alkaline Phosphatase (38-126) U/L Troponin I 0.035 H* (0.000-0.034) ng/mL Total Protein (6.3-8.2) g/dL Albumin (3.5-5.0) g/dL Lipase (23-300) U/L Influenza Type A (PCR) (Not Detectd) Influenza Type B (PCR) (Not Detectd) RSV (PCR) (Not Detectd) SARS-CoV-2 (PCR) (Not Detectd) 12/09/22 12/09/22 12/09/22 Range/Units 08:03 09:01 09:04 WBC (3.8-10.6) k/uL RBC (4.30-5.90) m/uL Hgb (13.0-17.5) gm/dL Hct (39.0-53.0) % MCV (80.0-100.0) fL MCH (25.0-35.0) pg MCHC (31.0-37.0) g/dL RDW (11.5-15.5) % Plt Count (150-450) k/uL MPV Neutrophils % % Lymphocytes % % Monocytes % % Eosinophils % % Basophils % % Neutrophils # (1.3-7.7) k/uL Lymphocytes # (1.0-4.8) k/uL Monocytes # (0-1.0) k/uL Eosinophils # (0-0.7) k/uL Basophils # (0-0.2) k/uL Sodium 138 (137-145) mmol/L Potassium 4.1 (3.5-5.1) mmol/L Chloride 101 (98-107) mmol/L Carbon Dioxide 15 L (22-30) mmol/L Anion Gap 22 mmol/L BUN 28 H (9-20) mg/dL Creatinine 4.06 H (0.66-1.25) mg/dL Est GFR (CKD-EPI)AfAm 16 (>60 ml/min/1.73 sqM) Est GFR (CKD-EPI)NonAf 14 (>60 ml/min/1.73 sqM) Glucose 140 H (74-99) mg/dL Lactic Ac Sepsis Rflx Y Plasma Lactic Acid Chacorta (0.7-2.0) mmol/L Calcium 11.1 H (8.4-10.2) mg/dL Magnesium 2.1 (1.6-2.3) mg/dL Total Bilirubin 0.9 (0.2-1.3) mg/dL AST 32 (17-59) U/L ALT 28 (4-49) U/L Alkaline Phosphatase 131 H (38-126) U/L Troponin I (0.000-0.034) ng/mL Total Protein 9.5 H (6.3-8.2) g/dL Albumin 5.7 H (3.5-5.0) g/dL Lipase 96 (23-300) U/L Influenza Type A (PCR) Not Detected (Not Detectd) Influenza Type B (PCR) Not Detected (Not Detectd) RSV (PCR) Not Detected (Not Detectd) SARS-CoV-2 (PCR) Detected A (Not Detectd) - EKG Data -: EKG Interpreted by Me (EKG shows sinus rhythm with first-degree AV block rate of 99 bpm ) - Radiology Data Radiology results: report reviewed, image reviewed Disposition Clinical Impression: COVID-19, Gastroenteritis, Renal failure, Elevated troponin, Dehydration, Metabolic acidosis Disposition: ADMITTED IP TO THIS [facility] Condition: Fair Is patient prescribed a controlled substance at d/c from ED?: No When asked, does pt state using other controlled substances?: No Referrals: Sammie Mercedes MD [Primary Care Provider] - 1-2 days Decision to Admit Reason: Admit from EC Decision Time: 01:54
[2022-12-09 06:25] LABS: Basophils % (A) 0 %; Eosinophils # (A) 0.1 k/uL (0-0.7); Eosinophils % (A) 0 %; Lymphocytes # (A) 1.8 k/uL (1.0-4.8); Lymphocytes % (A) 12 %; MCH 29.4 pg (25.0-35.0); MCHC 35.2 g/dL (31.0-37.0); MCV 83.5 fL (80.0-100.0); Mean Platelet Volume 8.7; Monocytes # (A) 0.6 k/uL (0-1.0); Monocytes % (A) 4 %; Neutrophils # (A) 12.4 k/uL (1.3-7.7); Neutrophils % (A) 83 %; Platelet Count 356 k/uL (150-450); RBC 6.75 m/uL (4.30-5.90); RDW 13.9 % (11.5-15.5); WBC 14.9 k/uL (3.8-10.6)
[2022-12-09 06:31] LABS: HCT 56.4 % (39.0-53.0); HGB 19.8 gm/dL (13.0-17.5)
[2022-12-09] MEDS ORDERED: PANTOPRAZOLE 40 MG/10 ML VIAL IVP STA (08:08)
[2022-12-09] MEDS ORDERED: HYDROmorphone 1 MG/ML 1 ML SYRINGE IVP STA (08:57)
[2022-12-09 09:34] LABS: ALT 28 U/L (4-49); AST 32 U/L (17-59); African American GFR (CKD) 16 (>60 ml/min/1.73 sqM); Albumin 5.7 g/dL (3.5-5.0); Alkaline Phosphatase 131 U/L (38-126); Anion Gap 22 mmol/L; Blood Urea Nitrogen 28 mg/dL (9-20); Calcium 11.1 mg/dL (8.4-10.2); Carbon Dioxide 15 mmol/L (22-30); Chloride 101 mmol/L (98-107); Glucose 140 mg/dL (74-99); Lipase 96 U/L (23-300); Magnesium 2.1 mg/dL (1.6-2.3); Non-African American GFR(CKD) 14 (>60 ml/min/1.73 sqM); Potassium 4.1 mmol/L (3.5-5.1); Sodium 138 mmol/L (137-145); Total Bilirubin 0.9 mg/dL (0.2-1.3); Total Protein 9.5 g/dL (6.3-8.2)
--- NOTE | 2022-12-09 12:34 | CT ---
EXAMINATION TYPE: CT abdomen pelvis wo con DATE OF EXAM: 12/09/2022 COMPARISON: 10/25/2022 INDICATION: Vomiting, pain DLP: 1146 mGycm, Automated exposure control for dose reduction was used. CONTRAST: 0 mL of Isovue 300. Study performed without Oral Contrast TECHNIQUE: Axial images were obtained from above the diaphragm to the pubic rami in the axial plane a t 5 mm thick sections. Reconstructed images are reviewed on the computer in the coronal plane. FINDINGS: Limited CT sections are obtained the lung bases. The lung bases are clear. Coronary artery calcific ation is noted. CT ABDOMEN: Liver: There is a 2.9 cm hepatic cyst. Spleen: Normal. Splenule is at the hilum. Pancreas: Normal Adrenal glands: The adrenal glands are normal. Gallbladder: Surgically absent Kidneys: No masses are evident. No hydronephrosis is present. No cysts are present. No renal stone s are evident. Aorta: Vascular calcification is within the aorta. Inferior vena cava: Normal. CT PELVIS: Stomach appears distended with fluid. Proximal small bowel loops are fluid. No suspicious dilated str ucture with transition zone in to suggest obstruction. Some fluid may be within the colon. Consider g astroenteritis. Follow-up can be performed as clinically indicated. Scattered diverticula are present without evidence of acute diverticulitis. Appendix: Normal as visualized. Urinary bladder: Decompressed with limited evaluation Genitourinary structures: Prostate appears unremarkable. Osseous structures: No suspicious lytic or sclerotic lesions. Postsurgical changes are within the lum bar spine. IMPRESSION: 1. Consider gastroenteritis. Follow-up studies can be performed as clinically indicated.
[2022-12-09] MEDS ORDERED: NALOXONE 0.4 MG/ML 1 ML VIAL IV PRN (13:43)
[2022-12-09] MEDS: ONDANSETRON 4 MG/2 ML VIAL IVP PRN ×2 (14:13→22:02)
[2022-12-09] MEDS: SODIUM CHLORIDE 0.9% 1,000 ML IV SCH ×2 (14:13→22:09)
[2022-12-09] MEDS: MORPHINE SULFATE 4 MG/ML SYRINGE IV PRN ×3 (14:13→22:01)
[2022-12-09] MEDS ORDERED: NITROGLYCERIN SL TABS 0.4 MG TAB SUBLINGUAL PRN (19:30)
[2022-12-09] MEDS ORDERED: ALBUTEROL NEBULIZED 2.5 MG/3 ML INHALATION PRN (19:30)
[2022-12-09] MEDS ORDERED: DICYCLOMINE 10 MG CAP PO PRN (19:30)
[2022-12-09] MEDS: cloNIDine HCL 0.1 MG TAB PO SCH (20:05)
[2022-12-09] MEDS: PREGABALIN 75 MG CAP PO SCH (20:05)
[2022-12-09] MEDS: HEPARIN SODIUM,PORCINE 5,000 UNIT/ML 1 ML VIAL SQ SCH (20:05)
[2022-12-09 21:57] LABS: Appearance,Urine Cloudy (Clear); Bacteria,Urine Rare /hpf; Bilirubin,Urine Negative (Negative); Blood,Urine Small (Negative); Color,Urine Yellow; Glucose,Urine (UA) Trace (Negative); Granular Casts,Urine 1 /lpf (0); Hyaline Casts,Urine 4 /lpf (0-2); Ketones,Urine Negative (Negative); Leukocyte Esterase,Urine Negative (Negative); Mucus,Urine Few /hpf; Nitrite,Urine Negative (Negative); PH, Urine 5.5 (5.0-8.0); Protein,Urine 1+ (Negative); RBC,Urine 1 /hpf (0-5); Specific Gravity,Urine 1.017 (1.001-1.035); Urobilinogen,Urine <2.0 mg/dL (<2.0); WBC,Urine 6 /hpf (0-5)
[2022-12-10] MEDS: MORPHINE SULFATE 4 MG/ML SYRINGE IV PRN ×5 (02:45→22:39)
[2022-12-10] MEDS: PANTOPRAZOLE 40 MG TABLET PO SCH ×2 (05:51→16:36)
[2022-12-10] MEDS: SODIUM CHLORIDE 0.9% 1,000 ML IV SCH ×4 (05:51→19:38)
[2022-12-10] MEDS: LEVOTHYROXINE 75 MCG TAB PO SCH (05:51)
[2022-12-10] MEDS: ONDANSETRON 4 MG/2 ML VIAL IVP PRN (06:02)
[2022-12-10] MEDS: PREGABALIN 75 MG CAP PO SCH ×2 (08:45→19:38)
[2022-12-10] MEDS: ASPIRIN 81 MG PO SCH (08:45)
[2022-12-10] MEDS: amLODIPine 10 MG TAB PO SCH (08:46)
[2022-12-10] MEDS: HEPARIN SODIUM,PORCINE 5,000 UNIT/ML 1 ML VIAL SQ SCH ×2 (08:46→19:38)
[2022-12-10] MEDS: ESCITALOPRAM 20 MG TAB PO SCH (08:46)
[2022-12-10] MEDS: cloNIDine HCL 0.1 MG TAB PO SCH ×2 (08:46→19:38)
[2022-12-10] MEDS: CLOPIDOGREL 75 MG TAB PO SCH (08:46)
[2022-12-10] MEDS: ISOSORBIDE MONONITRATE ER 30 MG TAB.ER.24H PO SCH (08:46)
[2022-12-10 09:27] LABS: Basophils % (A) 0 %; Eosinophils # (A) 0.1 k/uL (0-0.7); Eosinophils % (A) 1 %; HCT 41.7 % (39.0-53.0); Lymphocytes # (A) 2.2 k/uL (1.0-4.8); Lymphocytes % (A) 23 %; MCHC 33.8 g/dL (31.0-37.0); MCV 85.9 fL (80.0-100.0); Mean Platelet Volume 8.5; Monocytes # (A) 0.6 k/uL (0-1.0); Monocytes % (A) 7 %; Neutrophils # (A) 6.3 k/uL (1.3-7.7); Neutrophils % (A) 67 %; Platelet Count 193 k/uL (150-450); RBC 4.86 m/uL (4.30-5.90); WBC 9.4 k/uL (3.8-10.6)
[2022-12-10 09:28] LABS: ALT 24 U/L (4-49); AST 38 U/L (17-59); African American GFR (CKD) 36 (>60 ml/min/1.73 sqM); Albumin 4.2 g/dL (3.5-5.0); Alkaline Phosphatase 94 U/L (38-126); Anion Gap 11 mmol/L; Blood Urea Nitrogen 31 mg/dL (9-20); Calcium 9.2 mg/dL (8.4-10.2); Carbon Dioxide 24 mmol/L (22-30); Chloride 103 mmol/L (98-107); Glucose 129 mg/dL (74-99); Magnesium 2.1 mg/dL (1.6-2.3); Non-African American GFR(CKD) 31 (>60 ml/min/1.73 sqM); Potassium 3.9 mmol/L (3.5-5.1); Sodium 138 mmol/L (137-145); Total Bilirubin 0.6 mg/dL (0.2-1.3); Total Protein 6.8 g/dL (6.3-8.2)
[2022-12-10 09:35] LABS: HGB 14.1 gm/dL (13.0-17.5)
--- NOTE | 2022-12-10 11:04 | P.NPCON ---
History of Present Illness - Reason for Consult acute renal failure - History of Present Illness Reason for consultation: Acute kidney injury History of present illness: Patient is a 67-year-old male seen in renal consultation for acute kidney injury. Patient's baseline creatinine is near 1 and was elevated at 4.06 on admission. It is down to 2.13 today. Patient has received IV hydration this admission. Patient came to the hospital due to vomiting. Patient states he had a bowel movement and subsequently developed intractable vomiting afterwards. This recurred again the same day. Oral intake was poor prior to admission. He denies use of nonsteroidals. No history of diabetes. Denies family history of renal disease. He does have history of coronary disease with cardiac stenting. Patient states he had cramping of muscles prior to admission but resolved now. Hemodynamically stable. No chest pain or shortness of breath. No hematuria or dysuria. Admits to good urine output. Patient has been admitted similar complaints in the past. Vital signs are stable. General: No acute distress. HEENT: Head exam is unremarkable. LUNGS: No audible rhonchi or wheezes. HEART: Rate and Rhythm are regular. ABDOMEN: Soft, nontender. EXTREMITITES: No edema. Past Medical History Past Medical History: Atrial Fibrillation, Coronary Artery Disease (CAD), Chest Pain / Angina, COPD, Deep Vein Thrombosis (DVT), GERD/Reflux, GI Bleed, Hyperlipidemia, Hypertension, Myocardial Infarction (MA), Musculoskeletal Disorder, Osteoarthritis (OA), Pneumonia, Renal Disease, Syncope, Thyroid Disorder Additional Past Medical History / Comment(s): Paroxysmal afib, hx of fall with fx stenum/ribs, episodes of acute renal failure associated with dehydration, past melana stools, diverticulitis, IBS, return of hiatal hernia, bronchitis, hypothyroid, chronic low back pain with bilateral sciatica, lumbar DDD, past migraines, DJD, numbness/tingling bilateral legs/feet, 4 DVTs L leg surgically removed. ,covid + July 2021, hx of hematemesis with recent egd- erosions. Last Myocardial Infarction Date:: 10/15/21 History of Any Multi-Drug Resistant Organisms: None Reported Past Surgical History: Back Surgery, Cholecystectomy, Heart Catheterization, Heart Catheterization With Stent, Hernia Repair, Orthopedic Surgery Additional Past Surgical History / Comment(s): Back fusions L3-L5, ORIF L ankle, L hand fracture with surgery, R knee arthroscopy x2, R elbow tendon release, R shoulder arthroscopy, L shoulder arthroscopy, lumbar spine cyst removed, pain clinic procedures, taylor fundoplication, EGD, colonoscopy, 2019 arteriogram/thrombus extraction at [facility]. PTCA w/ 3 stents now. rt knee replacemnt, right quad repair Past Anesthesia/Blood Transfusion Reactions: No Reported Reaction Date of Last Stent Placement:: 10/15/21 Past Psychological History: No Psychological Hx Reported Additional Psychological History / Comment(s): . Smoking Status: Former smoker Past Alcohol Use History: Occasional Additional Past Alcohol Use History / Comment(s): Smoked from 1971 to 1983 SMOKED 1PPD. Past Drug Use History: Marijuana Additional Drug Use History / Comment(s): current medical marijuana - Past Family History Mother Family Medical History: No Reported History, Thyroid Disorder Additional Family Medical History / Comment(s): . Father Family Medical History: Coronary Artery Disease (CAD), Diabetes Mellitus Additional Family Medical History / Comment(s): Father had CABG. He at the age of 84 yrs in a MVA. Sister(s) Family Medical History: Cancer Additional Family Medical History / Comment(s): Sister #1 skin cancer, sister #2 thyroid cancer. Medications and Allergies Home Medications Medication Instructions Recorded Confirmed Type Levothyroxine Sodium [Synthroid] 75 mcg PO DAILY 05/04/16 12/09/22 History Escitalopram [Lexapro] 20 mg PO DAILY 12/16/16 12/09/22 History Nitroglycerin Sl Tabs [Nitrostat] 0.4 mg SL Q5M PRN 07/23/21 12/09/22 History Aspirin 81 mg PO DAILY #30 tab 10/17/21 12/09/22 Rx Pantoprazole [Protonix] 40 mg PO AC-BID #60 tab 10/22/21 12/09/22 Rx cloNIDine HCL [Catapres] 0.1 mg PO BID tab 10/22/21 12/09/22 Rx Evolocumab [Repatha Sureclick] 140 mg SQ Q14D 04/20/22 12/09/22 History Isosorbide Mononitrate ER [Imdur] 30 mg PO DAILY 04/20/22 12/09/22 History Pregabalin [Lyrica] 75 mg PO BID 06/10/22 12/09/22 History amLODIPine [Norvasc] 10 mg PO DAILY 06/10/22 12/09/22 History Clopidogrel [Plavix] 75 mg PO DAILY 09/24/22 12/09/22 History Dicyclomine [Bentyl] 10 mg PO TID PRN 09/24/22 12/09/22 History Albuterol Sulfate [Proair 1 puff INHALATION RT-Q6H PRN 10/07/22 12/09/22 History Respiclick] Allergies Allergy/AdvReac Type Severity Reaction Status Date / Time rivaroxaban [From Xarelto] AdvReac Severe Nausea & Verified 12/09/22 14:12 Vomiting & Diarrhea,cramps,sweating paroxetine HCl [From Paxil] AdvReac Unknown Nausea & Verified 12/09/22 14:12 Vomiting & Diarrhea,cramps,sweating apixaban [From Eliquis] AdvReac Nausea & Verified 12/09/22 14:12 Vomiting & Diarrhea,cramps,sweating atorvastatin [From Lipitor] AdvReac Nausea & Verified 12/09/22 14:12 Vomiting & Diarrhea,cramps,sweating Beta-Blockers AdvReac Nausea & Verified 12/09/22 14:12 (Beta-Adrenergic Bloc Vomiting & Diarrhea,cramps,sweating gabapentin AdvReac Nausea & Verified 12/09/22 14:12 Vomiting & Diarrhea,cramps,sweating [id number] Reductase AdvReac Nausea & Verified 12/09/22 14:12 Inhibitor Vomiting & Diarrhea,cramps,sweating warfarin AdvReac Nausea & Verified 12/09/22 14:12 Vomiting & Diarrhea,cramps,sweating Physical Exam Vitals: Vital Signs Temp Pulse Pulse Resp BP BP Pulse Ox 12/10/22 08:44 97.9 F 59 L 16 142/79 97 12/10/22 04:00 66 18 144/83 97 12/10/22 00:00 63 18 105/67 94 L 12/09/22 20:00 97.8 F 65 18 123/84 98 12/09/22 16:47 97.5 F L 76 18 148/81 97 12/09/22 16:00 75 18 144/93 97 12/09/22 14:00 73 16 121/69 98 12/09/22 13:11 96 12/09/22 11:11 98.8 F 105 H 18 133/96 96 Intake and Output 12/09/22 12/10/22 12/10/22 22:59 06:59 14:59 Intake Total 540 358 Output Total 300 700 Balance -300 -160 358 Intake: Oral 540 358 Output: Urine 300 700 Other: Voiding Method Toilet Toilet Weight 104.326 kg Results - Lab Results Most recent lab results Calcium 9.2 mg/dL (8.4-10.2) 12/10/22 08:48 Magnesium 2.1 mg/dL (1.6-2.3) 12/10/22 08:48 12/10/22 08:48 12/10/22 08:48 Assessment and Plan Plan: Assessment: 1. Acute kidney injury secondary to vasomotor nephropathy secondary to hypovolemia from vomiting. Creatinine 4.06 on admission and is 2.13 today. Baseline creatinine near 1. 2. Hypercalcemia secondary to volume contraction. Resolved with IV hydration. Workup has been negative in the past. 3. Metabolic acidosis secondary to acute kidney injury and lactic acidosis. Improved. 4. Benign hypertension. Stable. Plan: Resume normal saline at 75 mL an hour. Avoid nephrotoxins. Thank you for the consultation. I will continue to follow the patient with you during his hospital stay.
[2022-12-11] MEDS: MORPHINE SULFATE 4 MG/ML SYRINGE IV PRN ×5 (05:10→22:37)
[2022-12-11] MEDS: LEVOTHYROXINE 75 MCG TAB PO SCH (05:13)
[2022-12-11] MEDS: PANTOPRAZOLE 40 MG TABLET PO SCH ×2 (05:13→16:42)
--- NOTE | 2022-12-11 07:48 | P.HPIM ---
History of Present Illness H&P Date: 12/10/22 Chief Complaint: Acute kidney injury HISTORY OF PRESENT ILLNESS: This is a 67-year-old male with a previous medical history significant for hypertension and hypertensive cardiovascular disease, hyperlipidemia, chronic obstructive pulmonary disease, CAD, hypothyroidism, osteoarthritis status post right total knee arthroplasty, GERD with esophagitis, major depress calvin disorder and anxiety disorder, history of quad tendon tear treated at [facility] for repair with and had intraparenchymal bleed that was resolved patient ended up admitted to the hospital multiple times after that after he was getting off the pain medication thought due to withdrawal from codeine, history of EGD that found small hiatal hernia and superficial erosions at the GE junction consistent with LA grade B reflux esophagitis. Patient was hospitalized multiple times at [facility] with similar episode of recurrent intractable nausea vomiting and severe diarrhea that led to an acute kidney injury and elevated creatinine due to acute necrosis that was treated with IV fluid resuscitation and sodium bicarbonate drip on and off, patient stated that he was doing fine up until yesterday when he woke up and started having profuse sweating with the severe nausea and intractable vomiting and he had an episode of diarrhea followed by a normal stool after that, patient could not keep anything down, he ended up going to the ER for evaluation, he was found to have an elevated creatinine 4.2, patient was evaluated in the office few weeks back and his chromogranin a was elevated and he was supposed to go for a computed tomography scan of the chest to rule out any carcinoid tumor as the patient did have another computed tomography scan of the abdomen and pelvis multiple time he also did have a repeat computed tomography scan of the abdomen and pelvis in the ER this time that did not show any evidence of acute of normalities did show evidence of gastroenteritis, patient was started on IV fluid resuscitation, he was admitted to the hospital and nephrology consultation was obtained, patient also was found to be positive for COVID-19 but the patient was sick with COVID-19 2 weeks ago. At all conversation with the patient that his urine drug screen that was done in the office was positive for opiates which I'm not prescribing and marijuana and I advised him to stop THC and opiates at this point in time, he stated that he took a few of the oxycodone from his nephew which I advised him not to do this. I believe the patient will need to have counseling and he will need to be referred for substance abuse. REVIEW OF SYSTEMS: Constitutional: No documented fever, no chills, no night sweats. No weight change. positive for weakness, fatigue no lethargy. No daytime sleepiness. HEENT: No headache. No blurred vision or double vision, no loss of vision. No loss of Hearing, no ringing in the ears, no dizziness. No nasal drainage or congestion. No epistaxis. No sore throat. Lungs: No shortness of breath, no cough, no sputum production. No wheezing. Reports dyspnea with activity. Cardiovascular: No chest pain, no lower extremity edema. No palpitations. No paroxysmal nocturnal dyspnea. No orthopnea. No lightheadedness or dizziness. No syncopal episodes. Abdominal: Reports abdominal pain. positive for nausea, positive for vomiting. Reports diarrhea last bowel movement was yesterday. No constipation. No bloody or tarry stools reports loss of appetite. Genitourinary: No dysuria, increased frequency, urgency. No urinary retention. Musculoskeletal: No myalgias. positive for muscle weakness and leg cramps , no gait dysfunction, no frequent falls. No back pain. No neck pain. Integumentary: No wounds, no lesions. No rash or pruritus. No unusual bruising. No change in hair or nails. Neurologic: No aphasia. No facial droop. No change in mentation. No head injury. No headache. No paralysis. No paresthesia. Psychiatric: positive for depression. No anxiety. No mood swings. Endocrine: No abnormal blood sugars. No weight change. PAST MEDICAL HISTORY: Hypertension and hypertensive cardiovascular disease. Hyperlipidemia. Abdominal aortic thrombus COPD. CAD of [place] artery. Hypothyroidism. Osteoarthritis. GERD with esophagitis. Chronic low back pain status post PE LDF of L3 L5. PAST SURGICAL HISTORY: Left heart catheterization with PCI of the LCx 10/16/2021 Right knee arthroscopic surgery. Right total knee arthroplasty March 2022. P LDF L3 L5 with Tarlov cyst 1999 Hiatal hernia repair 1989. Colonoscopy 2019. Laparoscopic cholecystectomy 1989. Right elbow repair. Left heart catheterization with PCI of the proximal OM1 06/18/2019. Left heart catheterization with PCI of the RCA 11/17/2013. Left heart catheterization with PCI of the LAD 07/03/2007. Left tib-fib Fed ORIF. Left hand surgery. Right Qaudriceps tendon repair SOCIAL HISTORY: Patient used to smoke about pack every day at the age of 17 and he quit at the age of 27, he smokes marijuana, he drinks alcohol 1-2 drinks at a time no more than 4 drinks a week, he denies any other drug use or abuse. FAMILY HISTORY: Father at age of 80 from motor vehicle accident and had a history of dementia, mother at age of 87 with hypertension and atrial for relation, patient has one brother okay and had 4 sisters one with thyroid disease one with skin cancer and the other 2 are okay patient has 2 sons alive and well and one daughter alive and well as well. PHYSICAL EXAMINATION: General: 67-year-old male resting on the ER stretcher in no distress. HEENT: Head is atraumatic, normocephalic, pupils were equal round reactive to light and recommendation, extraocular muscle movement were intact, sclera nonicteric, conjunctivae were pale, mucous membranes of the mouth are somewhat dry. Neck: Supple, no JVP, normal carotid upstroke bilaterally, no lymphadenopathy. Chest: Decreased breath sounds at the bases, few rhonchi, minimal expiratory wheezes, no chest wall tenderness, no intercostal retractions. Heart: First heart sound is normal, second heart sound is normal there is LUIS 2/6 located at the left sternal border. Abdomen: Soft, nontender, nondistended, positive bowel sounds. Extremities: There is no edema no calf tenderness DP +2 bilaterally. Neurologic examination: Patient is awake alert and oriented X 3, cranial nerves II-12 appear grossly intact, muscle power were 5 out of 5 in upper extremities and 5 out of 5 in bilateral lower extremities, deep tendon reflexes normal bilaterally. ASSESSMENT AND PLAN: 1. Acute kidney injury due to acute tubular necrosis due to gastrointestinal fluid loss. Continue patient on on IV fluid in the form of normal saline at 75 cc/hr, nephrology consultation, repeat blood work in the morning. 2. Vomiting and diarrhea possibly due to marijuana use and gastitis. Continue patient on Protonix 40 mg twice daily. 3. Coronary artery disease status post multiple PCI's. Continue Plavix and ASA continue patient on isosorbide mononitrate 30 mg once every day, continue Repatha 140 mg subcu venously every 2 weeks, monitor lipid panel, keep LDL 5570. 4. Hypertension and hypertensive cardiovascular disease. Continue patient on amlodipine 10 mg orally daily, continue patient on clonidine 0.1 mg orally twice every day, monitor the patient blood pressure very closely. 5. Mixed hyperlipidemia. Patient is intolerant to statins. Continue with Repatha 140 mg subcutaneously every 2 weeks keep LDL less than 50 6. Hypothyroidism. Continue Synthroid 75 g orally once every day. 7. GERD with esophagitis and hiatal hernia. Continue patient on pantoprazole 40 mg oral twice daily. 8. Generalized anxiety disorder and depressive disorder. Continue patient on Escitalopram 20 mg orally once every day . 9. DVT prophylaxis. Continue patient on Lovenox 40 mg subcutaneously every 24 hours. 10. GI prophylaxis. Continue PPI. 11. opiate dependence with marijuana use likely the culprit for his condition patient will need referral for substance abuse program. 12. Admit to inpatient. Estimated length of stay 2 midnights. 13. Patient is full code. Past Medical History Past Medical History: Atrial Fibrillation, Coronary Artery Disease (CAD), Chest Pain / Angina, COPD, Deep Vein Thrombosis (DVT), GERD/Reflux, GI Bleed, Hyperlipidemia, Hypertension, Myocardial Infarction (HI), Musculoskeletal Dis order, Osteoarthritis (OA), Pneumonia, Renal Disease, Syncope, Thyroid Disorder Additional Past Medical History / Comment(s): Paroxysmal afib, hx of fall with fx stenum/ribs, episodes of acute renal failure associated with dehydration, past melana stools, diverticulitis, IBS, return of hiatal hernia, bronchitis, hypothyroid, chronic low back pain with bilateral sciatica, lumbar DDD, past migraines, DJD, numbness/tingling bilateral legs/feet, 4 DVTs L leg surgically removed. ,covid + July 2021, hx of hematemesis with recent egd- erosions. Last Myocardial Infarction Date:: 10/15/21 History of Any Multi-Drug Resistant Organisms: None Reported Past Surgical History: Back Surgery, Cholecystectomy, Heart Catheterization, Heart Catheterization With Stent, Hernia Repair, Orthopedic Surgery Additional Past Surgical History / Comment(s): Back fusions L3-L5, ORIF L ankle, L hand fracture with surgery, R knee arthroscopy x2, R elbow tendon release, R shoulder arthroscopy, L shoulder arthroscopy, lumbar spine cyst removed, pain clinic procedures, taylor fundoplication, EGD, colonoscopy, 2019 arteriogram/thrombus extraction at [facility]. PTCA w/ 3 stents now. rt knee replacemnt, right quad repair Past Anesthesia/Blood Transfusion Reactions: No Reported Reaction Date of Last Stent Placement:: 10/15/21 Past Psychological History: No Psychological Hx Reported Additional Psychological History / Comment(s): . Smoking Status: Former smoker Past Alcohol Use History: Occasional Additional Past Alcohol Use History / Comment(s): Smoked from 1971 to 1983 SMOKED 1PPD. Past Drug Use History: Marijuana Additional Drug Use History / Comment(s): current medical marijuana - Past Family History Mother Family Medical History: No Reported History, Thyroid Disorder Additional Family Medical History / Comment(s): . Father Family Medical History: Coronary Artery Disease (CAD), Diabetes Mellitus Additional Family Medical History / Comment(s): Father had CABG. He at the age of 84 yrs in a MVA. Sister(s) Family Medical History: Cancer Additional Family Medical History / Comment(s): Sister #1 skin cancer, sister #2 thyroid cancer. Medications and Allergies Home Medications Medication Instructions Recorded Confirmed Type Levothyroxine Sodium [Synthroid] 75 mcg PO DAILY 05/04/16 12/09/22 History Escitalopram [Lexapro] 20 mg PO DAILY 12/16/16 12/09/22 History Nitroglycerin Sl Tabs [Nitrostat] 0.4 mg SL Q5M PRN 07/23/21 12/09/22 History Aspirin 81 mg PO DAILY #30 tab 10/17/21 12/09/22 Rx Pantoprazole [Protonix] 40 mg PO AC-BID #60 tab 10/22/21 12/09/22 Rx cloNIDine HCL [Catapres] 0.1 mg PO BID tab 10/22/21 12/09/22 Rx Evolocumab [Repatha Sureclick] 140 mg SQ Q14D 04/20/22 12/09/22 History Isosorbide Mononitrate ER [Imdur] 30 mg PO DAILY 04/20/22 12/09/22 History Pregabalin [Lyrica] 75 mg PO BID 06/10/22 12/09/22 History amLODIPine [Norvasc] 10 mg PO DAILY 06/10/22 12/09/22 History Clopidogrel [Plavix] 75 mg PO DAILY 09/24/22 12/09/22 History Dicyclomine [Bentyl] 10 mg PO TID PRN 09/24/22 12/09/22 History Albuterol Sulfate [Proair 1 puff INHALATION RT-Q6H PRN 10/07/22 12/09/22 History Respiclick] Allergies Allergy/AdvReac Type Severity Reaction Status Date / Time rivaroxaban [From Xarelto] AdvReac Severe Nausea & Verified 12/09/22 14:12 Vomiting & Diarrhea,cramps,sweating paroxetine HCl [From Paxil] AdvReac Unknown Nausea & Verified 12/09/22 14:12 Vomiting & Diarrhea,cramps,sweating apixaban [From Eliquis] AdvReac Nausea & Verified 12/09/22 14:12 Vomiting & Diarrhea,cramps,sweating atorvastatin [From Lipitor] AdvReac Nausea & Verified 12/09/22 14:12 Vomiting & Diarrhea,cramps,sweating Beta-Blockers AdvReac Nausea & Verified 12/09/22 14:12 (Beta-Adrenergic Bloc Vomiting & Diarrhea,cramps,sweating gabapentin AdvReac Nausea & Verified 12/09/22 14:12 Vomiting & Diarrhea,cramps,sweating [id number] Reductase AdvReac Nausea & Verified 12/09/22 14:12 Inhibitor Vomiting & Diarrhea,cramps,sweating warfarin AdvReac Nausea & Verified 12/09/22 14:12 Vomiting & Diarrhea,cramps,sweating Physical Exam Vitals: Vital Signs Temp Pulse Resp BP Pulse Ox 12/11/22 04:00 69 16 142/83 97 12/10/22 23:56 65 16 107/56 95 12/10/22 20:00 97.9 F 66 16 122/72 94 L 12/10/22 15:54 63 16 122/74 97 12/10/22 12:15 64 16 121/74 98 12/10/22 08:44 97.9 F 59 L 16 142/79 97 Intake and Output 12/10/22 12/11/22 12/11/22 22:59 06:59 14:59 Intake Total 776 780 Balance 776 780 Intake: Oral 776 780 Other: Voiding Method Toilet Toilet # Voids 1 Results CBC & Chem 7: 12/10/22 08:48 12/10/22 08:48 Labs: Abnormal Lab Results - Last 24 Hours (Table) 12/10/22 Range/Units 08:48 BUN 31 H (9-20) mg/dL Creatinine 2.13 H (0.66-1.25) mg/dL Glucose 129 H (74-99) mg/dL Microbiology - Last 24 Hours (Table) 12/09/22 08:00 Blood Culture - Preliminary Blood Thrombosis Risk Factor Assmnt - Choose All That Apply Any of the Below Risk Factors Present?: Yes Each Factor Represents 1 point: Obesity (BMI >25) Each Risk Factor Represents 2 Points: Age 61-74 years Thrombosis Risk Factor Assessment Total Risk Factor Score: 3 Thrombosis Risk Factor Assessment Level: Moderate Risk
[2022-12-11] MEDS: ALBUTEROL HFA INHALER INHALATION PRN ×2 (08:49→12:14)
[2022-12-11] MEDS: amLODIPine 10 MG TAB PO SCH (09:37)
[2022-12-11] MEDS: ESCITALOPRAM 20 MG TAB PO SCH (09:37)
[2022-12-11] MEDS: ASPIRIN 81 MG PO SCH (09:37)
[2022-12-11] MEDS: CLOPIDOGREL 75 MG TAB PO SCH (09:38)
[2022-12-11] MEDS: cloNIDine HCL 0.1 MG TAB PO SCH ×2 (09:38→19:46)
[2022-12-11] MEDS: ISOSORBIDE MONONITRATE ER 30 MG TAB.ER.24H PO SCH (09:38)
[2022-12-11] MEDS: PREGABALIN 75 MG CAP PO SCH ×2 (09:38→19:45)
[2022-12-11] MEDS: HEPARIN SODIUM,PORCINE 5,000 UNIT/ML 1 ML VIAL SQ SCH ×2 (09:38→19:46)
[2022-12-11 10:25] LABS: African American GFR (CKD) 86 (>60 ml/min/1.73 sqM); Anion Gap 14 mmol/L; Blood Urea Nitrogen 19 mg/dL (9-20); Calcium 9.3 mg/dL (8.4-10.2); Carbon Dioxide 18 mmol/L (22-30); Chloride 108 mmol/L (98-107); Glucose 148 mg/dL (74-99); Non-African American GFR(CKD) 75 (>60 ml/min/1.73 sqM); Sodium 140 mmol/L (137-145)
--- NOTE | 2022-12-11 11:07 | P.PN ---
Subjective Patient is seen in follow-up for acute kidney injury. Renal function improving with IV fluids. No further vomiting or diarrhea. Tolerating oral intake. Vital signs are stable. General: No acute distress. HEENT: Head exam is unremarkable. LUNGS: No audible rhonchi or wheezes. HEART: Rate and Rhythm are regular. ABDOMEN: Nontender. EXTREMITITES: No edema. Objective - Vital Signs Vital signs: Vital Signs Temp 98.1 F 12/11/22 09:45 Pulse 69 12/11/22 09:45 Resp 18 12/11/22 09:46 BP 146/78 12/11/22 09:45 Pulse Ox 97 12/11/22 09:45 FiO2 Intake & Output 12/10/22 12/11/22 12/11/22 18:59 06:59 18:59 Intake Total 830 1320 490 Balance 830 1320 490 Intake: IV 10 Invasive Line 1 10 Oral 830 1320 480 Other: Voiding Method Toilet Toilet # Voids 1 - Labs CBC & Chem 7: 12/10/22 08:48 12/11/22 09:00 Labs: Abnormal Lab Results - Last 24 Hours (Table) 12/11/22 Range/Units 09:00 Chloride 108 H (98-107) mmol/L Carbon Dioxide 18 L (22-30) mmol/L Glucose 148 H (74-99) mg/dL Microbiology - Last 24 Hours (Table) 12/09/22 08:00 Blood Culture - Preliminary Blood Assessment and Plan Plan: Assessment: 1. Acute kidney injury secondary to vasomotor nephropathy secondary to hypovolemia from vomiting. Creatinine 4.06 on admission and is 1.03 today. Baseline creatinine near 1. 2. Hypercalcemia secondary to volume contraction. Resolved with IV hydration. Workup has been negative in the past. 3. Metabolic acidosis secondary to acute kidney injury, IV fluids, and lactic acidosis. 4. Benign hypertension. Stable. Plan: Hep-Lock IV fluids.
--- NOTE | 2022-12-11 12:45 | US ---
EXAMINATION TYPE: US venous doppler duplex LE DATE OF EXAM: 12/11/2022 12:31 PM COMPARISON: NONE CLINICAL INDICATION: Male, 67 years old with history of calf pain; BILATERAL CALF CRAMPS X A FEW DAYS , Hx DVT 7 YRS AGO LT LEG SIDE PERFORMED: Bilateral TECHNIQUE: The lower extremity deep venous system is examined utilizing real time linear array sonog pat with graded compression, doppler sonography and color-flow sonography. VESSELS IMAGED: Common Femoral Vein Deep Femoral Vein Greater Saphenous Vein * Femoral Vein Popliteal Vein Small Saphenous Vein * Proximal Calf Veins (* superficial vessels) Right Leg: Negative for DVT Left Leg: Negative for DVT IMPRESSION: Grayscale, color doppler, spectral doppler imaging performed of the deep veins of the lo wer extremities. There is normal flow, compressibility, vascular waveforms.
--- NOTE | 2022-12-11 13:20 | P.PN ---
Subjective Progress Note Date: 12/11/22 This is a 67-year-old male with a previous medical history significant for hypertension and hypertensive cardiovascular disease, hyperlipidemia, chronic obstructive pulmonary disease, CAD, hypothyroidism, osteoarthritis status post right total knee arthroplasty, GERD with esophagitis, major dep ressive disorder and anxiety disorder, history of quad tendon tear treated at [facility] for repair with and had intraparenchymal bleed that was resolved patient ended up admitted to the hospital multiple times after that after he was getting off the pain medication thought due to withdrawal from codeine, history of EGD that found small hiatal hernia and superficial erosions at the GE junction consistent with LA grade B reflux esophagitis. Patient was hospitalized multiple times at [facility] with similar episode of recurrent intractable nausea vomiting and severe diarrhea that led to an acute kidney injury and elevated creatinine due to acute necrosis that was treated with IV fluid resuscitation and sodium bicarbonate drip on and off, patient stated that he was doing fine up until yesterday when he woke up and started having profuse sweating with the severe nausea and intractable vomiting and he had an episode of diarrhea followed by a normal stool after that, patient could not keep anything down, he ended up going to the ER for evaluation, he was found to have an elevated creatinine 4.2, patient was evaluated in the office few weeks back and his chromogranin a was elevated and he was supposed to go for a computed tomography scan of the chest to rule out any carcinoid tumor as the patient did have another computed tomography scan of the abdomen and pelvis multiple time he also did have a repeat computed tomography scan of the abdomen and pelvis in the ER this time that did not show any evidence of acute of normalities did show evidence of gastroenteritis, patient was started on IV fluid resuscitation, he was admitted to the hospital and nephrology consultation was obtained, patient also was found to be positive for COVID-19 but the patient was sick with COVID-19 2 weeks ago. At all conversation with the patient that his urine drug screen that was done in the office was positive for opiates which I'm not prescribing and marijuana and I advised him to stop THC and opiates at this point in time, he stated that he took a few of the oxycodone from his nephew which I advised him not to do this. I believe the patient will need to have counseling and he will need to be referred for substance abuse. 12/11. Patient seen and examined. Lab work WBC 9.4, hemoglobin 14.1, platelet count 193, sodium 1:30, potassium 3.9, BUN 31, creatinine 2.13,. Complaining of cramps in bilateral lower extremities REVIEW OF SYSTEMS: CONSTITUTIONAL: No fever, no malaise,. CARDIOVASCULAR: No chest pain, no palpitations, no syncope. PULMONARY: No shortness of breath, no cough, GASTROINTESTINAL: No diarrhea, no nausea, no vomiting, no abdominal pain. NEUROLOGICAL: No headaches, no weakness, PHYSICAL EXAMINATION: GENERAL: The patient is alert and oriented x3, not in any acute distress. Well developed, well nourished. HEENT: Pupils are round and equally reacting to light. EOMI. No scleral icterus. No conjunctival pallor. Normocephalic, atraumatic. No pharyngeal erythema. No thyromegaly. CARDIOVASCULAR: S1 and S2 present. No murmurs, rubs, or gallops. PULMONARY: Chest is clear to auscultation, no wheezing or crackles. ABDOMEN: Soft, nontender, nondistended, normoactive bowel sounds. No palpable organomegaly. MUSCULOSKELETAL: No joint swelling or deformity. EXTREMITIES: No cyanosis, clubbing, or pedal edema. NEUROLOGICAL: Gross neurological examination did not reveal any focal deficits. SKIN: No rashes. Assessment and plan Acute kidney injury due to acute tubular necrosis due to gastrointestinal fluid loss. Hypercalcemia Metabolic acidosis Vomiting and diarrhea possibly due to marijuana use and gastitis. Coronary artery disease status post multiple PCI's. Hypertension and hypertensive cardiovascular disease. Continue patient on amlodipine 10 mg orally daily, continue patient on clonidine 0.1 mg orally twice every day, monitor the patient blood pressure very closely. Mixed hyperlipidemia Hypothyroidism. GERD with esophagitis and hiatal hernia. Continue patient on pantoprazole 40 mg oral twice daily. Generalized anxiety disorder and depressive disorder. Continue patient on Escitalopram 20 mg orally once every day . opiate dependence with marijuana use Monitor vital signs Monitor CBC Monitor CMP Continue telemetry monitoring Encourage use of incentive spirometer Avoid nephrotoxic agents Strict I's and O's, daily weights and DC fluids Regards to hyperlipidemia, Continue with Repatha 140 mg subcutaneously every 2 weeks In regards to hypothyroid continue Synthyroid 75 MCG daily In regards to depression and generalized anxiety disorder, continue escitalopram Continue Plavix and ASA continue patient on isosorbide mononitrate 30 mg once every day, continue Repatha 140 mg subcu venously every 2 weeks, monitor lipid panel, keep LDL 5570 Nephrology following Labs and medication were reviewed.. Continue same treatment. Continue with symptomatic treatment. Resume home medication. Monitor labs and vitals. DVT and GI prophylaxis. Further recommendations as per clinical course of the patient Dictation was produced using [employer] dictation software. please excuse any grammatical, word or spelling errors. Objective - Vital Signs Vital signs: Vital Signs Temp 97.9 F 12/10/22 20:00 Pulse 69 12/11/22 04:00 Resp 16 12/11/22 04:00 BP 142/83 12/11/22 04:00 Pulse Ox 97 12/11/22 04:00 FiO2 Intake & Output 12/10/22 12/11/22 12/11/22 18:59 06:59 18:59 Intake Total 830 1320 480 Balance 830 1320 480 Intake: Oral 830 1320 480 Other: Voiding Method Toilet # Voids 1 - Labs CBC & Chem 7: 12/10/22 08:48 12/11/22 09:00 Labs: Abnormal Lab Results - Last 24 Hours (Table) 12/10/22 Range/Units 08:48 BUN 31 H (9-20) mg/dL Creatinine 2.13 H (0.66-1.25) mg/dL Glucose 129 H (74-99) mg/dL Microbiology - Last 24 Hours (Table) 12/09/22 08:00 Blood Culture - Preliminary Blood
[2022-12-11] MEDS: ONDANSETRON 4 MG/2 ML VIAL IVP PRN (14:28)
[2022-12-12] MEDS: MORPHINE SULFATE 4 MG/ML SYRINGE IV PRN ×2 (02:29→06:27)
[2022-12-12] MEDS: PANTOPRAZOLE 40 MG TABLET PO SCH ×2 (06:00→09:46)
[2022-12-12] MEDS: LEVOTHYROXINE 75 MCG TAB PO SCH (06:00)
[2022-12-12] MEDS: PREGABALIN 75 MG CAP PO SCH (09:00)
[2022-12-12] MEDS: ASPIRIN 81 MG PO SCH (09:00)
[2022-12-12] MEDS: CLOPIDOGREL 75 MG TAB PO SCH (09:01)
[2022-12-12] MEDS: amLODIPine 10 MG TAB PO SCH (09:01)
[2022-12-12] MEDS: HEPARIN SODIUM,PORCINE 5,000 UNIT/ML 1 ML VIAL SQ SCH (09:01)
[2022-12-12] MEDS: ESCITALOPRAM 20 MG TAB PO SCH (09:01)
[2022-12-12] MEDS: cloNIDine HCL 0.1 MG TAB PO SCH (09:01)
[2022-12-12] MEDS: ISOSORBIDE MONONITRATE ER 30 MG TAB.ER.24H PO SCH (09:01)
[2022-12-12 09:14] VITALS: BP 158/70; PULSE 69; RESP 16; TEMP 97.9
[2022-12-12 10:11] LABS: HCT 39.1 % (39.0-53.0); HGB 13.8 gm/dL (13.0-17.5); MCH 30.3 pg (25.0-35.0); MCHC 35.4 g/dL (31.0-37.0); MCV 85.7 fL (80.0-100.0); Mean Platelet Volume 8.2; Platelet Count 178 k/uL (150-450); RBC 4.56 m/uL (4.30-5.90); RDW 13.7 % (11.5-15.5); WBC 6.4 k/uL (3.8-10.6)
[2022-12-12 10:23] LABS: ALT 27 U/L (4-49); AST 35 U/L (17-59); African American GFR (CKD) 85 (>60 ml/min/1.73 sqM); Albumin 4.4 g/dL (3.5-5.0); Alkaline Phosphatase 101 U/L (38-126); Anion Gap 10 mmol/L; Blood Urea Nitrogen 15 mg/dL (9-20); Calcium 9.6 mg/dL (8.4-10.2); Carbon Dioxide 28 mmol/L (22-30); Chloride 102 mmol/L (98-107); Glucose 113 mg/dL (74-99); Non-African American GFR(CKD) 74 (>60 ml/min/1.73 sqM); Potassium 4.8 mmol/L (3.5-5.1); Sodium 140 mmol/L (137-145); Total Bilirubin 0.6 mg/dL (0.2-1.3); Total Protein 7.4 g/dL (6.3-8.2)
--- NOTE | 2022-12-12 10:57 | P.PN ---
Subjective Patient is seen in follow-up for acute kidney injury. Renal function at baseline. No further vomiting or diarrhea. Tolerating oral intake. No active complaints. Vital signs are stable. General: No acute distress. HEENT: Head exam is unremarkable. LUNGS: No audible rhonchi or wheezes. HEART: Rate and Rhythm are regular. ABDOMEN: Nontender. EXTREMITITES: No edema. Objective - Vital Signs Vital signs: Vital Signs Temp 97.9 F 12/12/22 08:58 Pulse 69 12/12/22 08:58 Resp 16 12/12/22 08:58 BP 158/70 12/12/22 08:58 Pulse Ox 98 12/12/22 08:58 FiO2 Intake & Output 12/11/22 12/12/22 12/12/22 19:59 06:59 18:59 Intake Total 10 Output Total Balance 10 Intake: IV 10 Invasive Line 1 10 Intake, IV Titration Amount Sodium Chloride 0.9% 1, 000 ml @ 75 mls/hr IV . [id number] Rx#:[id number] Oral Output: Urine Other: Voiding Method Toilet # Voids # Bowel Movements - Labs CBC & Chem 7: 12/12/22 09:47 12/12/22 09:47 Labs: Abnormal Lab Results - Last 24 Hours (Table) 12/12/22 Range/Units 09:47 Glucose 113 H (74-99) mg/dL Microbiology - Last 24 Hours (Table) 12/09/22 08:00 Blood Culture - Preliminary Blood Assessment and Plan Plan: Assessment: 1. Acute kidney injury secondary to vasomotor nephropathy secondary to hypovolemia from vomiting. Creatinine 4.06 on admission and is 1.04 today. Baseline creatinine near 1. 2. Hypercalcemia secondary to volume contraction. Resolved with IV hydration. Workup has been negative in the past. 3. Metabolic acidosis secondary to acute kidney injury, IV fluids, and lactic acidosis. 4. Benign hypertension. Plan: Hep-Lock IV fluids. Home antihypertensives resumed. Being discharge today. Follow-up outpatient in 1-2 weeks.
--- NOTE | 2022-12-12 11:58 | P.DS ---
Providers Date of admission: 12/09/22 14:51 Expected date of discharge: 12/12/22 Attending physician: Sammie Mercedes Consults: 12/09/22 13:46 Consult Physician Urgent Consulting Provider: Kristian Cason Consult Reason/Comments: Renal Failure Do you want consulting provider notified?: Yes Primary care physician: Sammie Mercedes Hospital Course: Discharge diagnoses; Acute kidney injury due to acute tubular necrosis due to gastrointestinal fluid loss. Hypercalcemia Metabolic acidosis Vomiting and diarrhea possibly due to marijuana use and gastitis. Coronary artery disease status post multiple PCI's. Hypertension and hypertensive cardiovascular disease. Continue patient on amlodipine 10 mg orally daily, continue patient on clonidine 0.1 mg orally twice every day, monitor the patient blood pressure very closely. Mixed hyperlipidemia Hypothyroidism. GERD with esophagitis and hiatal hernia. Continue patient on pantoprazole 40 mg oral twice daily. Generalized anxiety disorder and depressive disorder. Continue patient on Escitalopram 20 mg orally once every day . opiate dependence with marijuana use Regards to hyperlipidemia, Continue with Repatha 140 mg subcutaneously every 2 weeks In regards to hypothyroid continue Synthyroid 75 MCG daily In regards to depression and generalized anxiety disorder, continue escitalopram Continue Plavix and ASA continue patient on isosorbide mononitrate 30 mg once every day, continue Repatha 140 mg subcu venously every 2 weeks, monitor lipid panel, keep LDL 5570 Outpatient follow-up in nephrology Hospital course; This is a 67-year-old male with a previous medical history significant for hypertension and hypertensive cardiovascular disease, hyperlipidemia, chronic obstructive pulmonary disease, CAD, hypothyroidism, osteoarthritis status post right total knee arthroplasty, GERD with esophagitis, major depressive disorder and anxiety disorder, history of quad tendon tear treated at [facility] for repair with and had intraparenchymal bleed that was resolved patient ended up admitted to the hospital multiple times after that after he was getting off the pain medication thought due to withdrawal from codeine, history of EGD that found small hiatal hernia and superficial erosions at the GE junction consistent with LA grade B reflux esophagitis. Patient was hospitalized multiple times at [facility] with similar episode of recurrent intractable nausea vomiting and severe diarrhea that led to an acute kidney injury and elevated creatinine due to acute necrosis that was treated with IV fluid resuscitation and sodium bicarbonate drip on and off, patient stated that he was doing fine up until yesterday when he woke up and started having profuse sweating with the severe nausea and intractable vomiting and he had an episode of diarrhea followed by a normal stool after that, patient could not keep anything down, he ended up going to the ER for evaluation, he was found to have an elevated creatinine 4.2, patient was evaluated in the office few weeks back and his chromogranin a was elevated and he was supposed to go for a computed tomography scan of the chest to rule out any carcinoid tumor as the patient did have another computed tomography scan of the abdomen and pelvis multiple time he also did have a repeat computed tomography scan of the abdomen and pelvis in the ER this time that did not show any evidence of acute of normalities did show evidence of gastroenteritis, patient was started on IV fluid resuscitation, he was admitted to the hospital and nephrology consultation was obtained, patient also was found to be positive for COVID-19 but the patient was sick with COVID-19 2 weeks ago. At all conversation with the patient that his urine drug screen that was done in the office was positive for opiates which I'm not prescribing and marijuana and I advised him to stop THC and opiates at this point in time, he stated that he took a few of the oxycodone from his nephew which I advised him not to do this. I believe the patient will need to have counseling and he will need to be referred for substance abuse. 12/11. Patient seen and examined. Lab work WBC 9.4, hemoglobin 14.1, platelet count 193, sodium 1:30, potassium 3.9, BUN 31, creatinine 2.13,. Complaining of cramps in bilateral lower extremities 12/12. Patient seen and examined. Renal function normalized. Ultrasound lower extremities negative for DVT. Clear for discharge PHYSICAL EXAMINATION: GENERAL: The patient is alert and oriented x3, not in any acute distress. Well developed, well nourished. HEENT: Pupils are round and equally reacting to light. EOMI. No scleral icterus. No conjunctival pallor. Normocephalic, atraumatic. No pharyngeal erythema. No thyromegaly. CARDIOVASCULAR: S1 and S2 present. No murmurs, rubs, or gallops. PULMONARY: Chest is clear to auscultation, no wheezing or crackles. ABDOMEN: Soft, nontender, nondistended, normoactive bowel sounds. No palpable organomegaly. MUSCULOSKELETAL: No joint swelling or deformity. EXTREMITIES: No cyanosis, clubbing, or pedal edema. NEUROLOGICAL: Gross neurological examination did not reveal any focal deficits. SKIN: No rashes. Dictation was produced using [employer] dictation software. please excuse any grammatical, word or spelling errors. Patient Condition at Discharge: Good Plan - Discharge Summary Discharge Rx Participant: No New Discharge Prescriptions: Continue Levothyroxine Sodium [Synthroid] 75 mcg PO DAILY Escitalopram [Lexapro] 20 mg PO DAILY Pantoprazole [Protonix] 40 mg PO AC-BID #60 tab cloNIDine HCL [Catapres] 0.1 mg PO BID tab Isosorbide Mononitrate ER [Imdur] 30 mg PO DAILY Pregabalin [Lyrica] 75 mg PO BID Dicyclomine [Bentyl] 10 mg PO TID PRN PRN Reason: ibs Clopidogrel [Plavix] 75 mg PO DAILY Albuterol Sulfate [Proair Respiclick] 1 puff INHALATION RT-Q6H PRN PRN Reason: Shortness Of Breath Nitroglycerin Sl Tabs [Nitrostat] 0.4 mg SL Q5M PRN PRN Reason: Chest Pain Aspirin 81 mg PO DAILY #30 tab Evolocumab [Repatha Sureclick] 140 mg SQ Q14D amLODIPine [Norvasc] 10 mg PO DAILY Discharge Medication List Levothyroxine Sodium [Synthroid] 75 mcg PO DAILY 05/04/16 [History] Escitalopram [Lexapro] 20 mg PO DAILY 12/16/16 [History] Nitroglycerin Sl Tabs [Nitrostat] 0.4 mg SL Q5M PRN 07/23/21 [History] Aspirin 81 mg PO DAILY #30 tab 10/17/21 [Rx] Pantoprazole [Protonix] 40 mg PO AC-BID #60 tab 10/22/21 [Rx] cloNIDine HCL [Catapres] 0.1 mg PO BID tab 10/22/21 [Rx] Evolocumab [Repatha Sureclick] 140 mg SQ Q14D 04/20/22 [History] Isosorbide Mononitrate ER [Imdur] 30 mg PO DAILY 04/20/22 [History] Pregabalin [Lyrica] 75 mg PO BID 06/10/22 [History] amLODIPine [Norvasc] 10 mg PO DAILY 06/10/22 [History] Clopidogrel [Plavix] 75 mg PO DAILY 09/24/22 [History] Dicyclomine [Bentyl] 10 mg PO TID PRN 09/24/22 [History] Albuterol Sulfate [Proair Respiclick] 1 puff INHALATION RT-Q6H PRN 10/07/22 [History] Follow up Appointment(s)/Referral(s): Sammie Mercedes MD [Primary Care Provider] - 1-2 days Discharge Disposition: HOME SELF-CARE
[2022-12-23] MEDS ORDERED: NON FORMULARY DRUG (Evolocumab [Repatha Sureclick] 140 MG/ML Each) SQ SCH (09:00)
== END 2022-12-12 10:32 | disposition home or self-care (01) | DRG 682 ==
LOC: EC 05:13 → 3SCARD 14:51
PROVIDERS: ADMIT Internal Medicine; ATTEND Internal Medicine
DX: N17.0 Acute kidney failure with tubular necrosis (principal); U07.1 COVID-19; F11.20 Opioid dependence, uncomplicated; I74.09 Other arterial embolism and thrombosis of abdominal aorta; F32.A Depression, unspecified; I11.9 Hypertensive heart disease without heart failure; J44.9 Chronic obstructive pulmonary disease, unspecified; E66.9 Obesity, unspecified; Z68.32 Body mass index [BMI] 32.0-32.9, adult; I73.9 Peripheral vascular disease, unspecified; E03.9 Hypothyroidism, unspecified; K44.9 Diaphragmatic hernia without obstruction or gangrene; E78.2 Mixed hyperlipidemia; E83.52 Hypercalcemia; E86.0 Dehydration; M54.32 Sciatica, left side; M54.31 Sciatica, right side; M51.36 Other intervertebral disc degeneration, lumbar region; G89.29 Other chronic pain; K29.70 Gastritis, unspecified, without bleeding; K21.00 Gastro-esophageal reflux disease with esophagitis, without bleeding; R25.2 Cramp and spasm; Z79.3 Long term (current) use of hormonal contraceptives; E86.1 Hypovolemia; F41.1 Generalized anxiety disorder; I25.10 Atherosclerotic heart disease of native coronary artery without angina pectoris; I25.2 Old myocardial infarction; I44.0 Atrioventricular block, first degree; I45.10 Unspecified right bundle-branch block; G43.909 Migraine, unspecified, not intractable, without status migrainosus; Z91.81 History of falling; K58.9 Irritable bowel syndrome, unspecified; I48.0 Paroxysmal atrial fibrillation; Z87.19 Personal history of other diseases of the digestive system; Z79.02 Long term (current) use of antithrombotics/antiplatelets; Z79.82 Long term (current) use of aspirin; Z79.890 Hormone replacement therapy; Z79.899 Other long term (current) drug therapy; Z82.49 Family history of ischemic heart disease and other diseases of the circulatory system; Z86.16 Personal history of COVID-19; Z95.5 Presence of coronary angioplasty implant and graft; Z96.651 Presence of right artificial knee joint; Z86.73 Personal history of transient ischemic attack (TIA), and cerebral infarction without residual deficits; Z71.51 Drug abuse counseling and surveillance of drug abuser; Z88.8 Allergy status to other drugs, medicaments and biological substances; Z87.01 Personal history of pneumonia (recurrent); Z87.898 Personal history of other specified conditions
CPT/HCPCS: 36415; 74176; 80048; 80053; 81001; 83605; 83690; 83735; 84484; 85025; 85027; 87040; 87636; 93005; 93970; 94640; 96361; 96374; 96375; 96376; 99285

== ENCOUNTER 2023-03-07 17:50 | Emergency (ER) | payer MEDICARE ==
--- NOTE | 2023-03-07 18:16 | ED ---
Nausea/Vomiting/Diarrhea HPI - General Chief complaint: Nausea/Vomiting/Diarrhea Stated complaint: Vomiting Time Seen by Provider: 03/07/23 18:14 Source: patient, RN notes reviewed Mode of arrival: ambulatory Limitations: no limitations - History of Present Illness Initial comments: This is a 67-year-old male who presents to the emergency department for nausea and vomiting. States that it started around 5 AM. Reports generalized abdominal discomfort from all of the vomiting. Denies any fevers or chills. He does report body aches. Denies any sick contacts. Believes that he has zofran or another nausea medication at home, but did not take it. MD complaint: nausea, vomiting, abdominal pain - Related Data Home Medications Medication Instructions Recorded Confirmed Levothyroxine Sodium [Synthroid] 75 mcg PO DAILY 05/04/16 12/09/22 Escitalopram [Lexapro] 20 mg PO DAILY 12/16/16 12/09/22 Nitroglycerin Sl Tabs [Nitrostat] 0.4 mg SL Q5M PRN 07/23/21 12/09/22 Evolocumab [Repatha Sureclick] 140 mg SQ Q14D 04/20/22 12/09/22 Isosorbide Mononitrate ER [Imdur] 30 mg PO DAILY 04/20/22 12/09/22 Pregabalin [Lyrica] 75 mg PO BID 06/10/22 12/09/22 amLODIPine [Norvasc] 10 mg PO DAILY 06/10/22 12/09/22 Clopidogrel [Plavix] 75 mg PO DAILY 09/24/22 12/09/22 Dicyclomine [Bentyl] 10 mg PO TID PRN 09/24/22 12/09/22 Albuterol Sulfate [Proair 1 puff INHALATION RT-Q6H PRN 10/07/22 12/09/22 Respiclick] Previous Rx's Medication Instructions Recorded Aspirin 81 mg PO DAILY #30 tab 10/17/21 Pantoprazole [Protonix] 40 mg PO AC-BID #60 tab 10/22/21 cloNIDine HCL [Catapres] 0.1 mg PO BID tab 10/22/21 Metoclopramide [Reglan] 10 mg PO Q6H PRN #30 tab 03/07/23 Allergies Allergy/AdvReac Type Severity Reaction Status Date / Time rivaroxaban [From Xarelto] AdvReac Severe Nausea & Verified 03/07/23 17:59 Vomiting & Diarrhea,cramps,sweating paroxetine HCl [From Paxil] AdvReac Unknown Nausea & Verified 03/07/23 17:59 Vomiting & Diarrhea,cramps,sweating apixaban [From Eliquis] AdvReac Nausea & Verified 03/07/23 17:59 Vomiting & Diarrhea,cramps,sweating atorvastatin [From Lipitor] AdvReac Nausea & Verified 03/07/23 17:59 Vomiting & Diarrhea,cramps,sweating Beta-Blockers AdvReac Nausea & Verified 03/07/23 17:59 (Beta-Adrenergic Bloc Vomiting & Diarrhea,cramps,sweating gabapentin AdvReac Nausea & Verified 03/07/23 17:59 Vomiting & Diarrhea,cramps,sweating Axptzyt-EXF-PxS Reductase AdvReac Nausea & Verified 03/07/23 17:59 Inhibitor Vomiting & Diarrhea,cramps,sweating warfarin AdvReac Nausea & Verified 03/07/23 17:59 Vomiting & Diarrhea,cramps,sweating Review of Systems ROS Statement: Those systems with pertinent positive or pertinent negative responses have been documented in the HPI. ROS Other: All systems not noted in ROS Statement are negative. Past Medical History Past Medical History: Atrial Fibrillation, Coronary Artery Disease (CAD), Chest Pain / Angina, COPD, Deep Vein Thrombosis (DVT), GERD/Reflux, GI Bleed, Hyperlipidemia, Hypertension, Myocardial Infarction ([place]), Musculoskeletal Disorder, Osteoarthritis (OA), Pneumonia, Renal Disease, Syncope, Thyroid D isorder Additional Past Medical History / Comment(s): Paroxysmal afib, hx of fall with fx stenum/ribs, episodes of acute renal failure associated with dehydration, past melana stools, diverticulitis, IBS, return of hiatal hernia, bronchitis, hypothyroid, chronic low back pain with bilateral sciatica, lumbar DDD, past migraines, DJD, numbness/tingling bilateral legs/feet, 4 DVTs L leg surgically removed. ,covid + July 2021, hx of hematemesis with recent egd- erosions. Last Myocardial Infarction Date:: 10/15/21 History of Any Multi-Drug Resistant Organisms: None Reported Past Surgical History: Back Surgery, Cholecystectomy, Heart Catheterization, Heart Catheterization With Stent, Hernia Repair, Orthopedic Surgery Additional Past Surgical History / Comment(s): Back fusions L3-L5, ORIF L ankle, L hand fracture with surgery, R knee arthroscopy x2, R elbow tendon release, R shoulder arthroscopy, L shoulder arthroscopy, lumbar spine cyst removed, pain clinic procedures, taylor fundoplication, EGD, colonoscopy, 2019 arteriogram/thrombus extraction at [facility]. PTCA w/ 3 stents now. rt knee replacemnt, right quad repair Past Anesthesia/Blood Transfusion Reactions: No Reported Reaction Date of Last Stent Placement:: 10/15/21 Past Psychological History: No Psychological Hx Reported Smoking Status: Former smoker Past Alcohol Use History: Occasional Past Drug Use History: Marijuana - Past Family History Mother Family Medical History: No Reported History, Thyroid Disorder Additional Family Medical History / Comment(s): . Father Family Medical History: Coronary Artery Disease (CAD), Diabetes Mellitus Additional Family Medical History / Comment(s): Father had CABG. He at the age of 84 yrs in a MVA. Sister(s) Family Medical History: Cancer Additional Family Medical History / Comment(s): Sister #1 skin cancer, sister #2 thyroid cancer. General Exam - General Exam Comments Initial Comments: Visual Physical Exam Vital signs reviewed General: Vomiting, in distress Head: Normocephalic, atraumatic Eyes: PERRLA, EOMI ENT: Airway patent Chest: Nonlabored breathing Skin: No visual rash, normal skin tone Neuro: Alert and oriented 3 Musculoskeletal: No gross abnormalities Limitations: no limitations General appearance: alert, in distress Head exam: Present: atraumatic, normocephalic, normal inspection Respiratory exam: Present: normal lung sounds bilaterally. Absent: respiratory distress, wheezes, rales, rhonchi, stridor Cardiovascular Exam: Present: regular rate, normal rhythm, normal heart sounds. Absent: systolic murmur, diastolic murmur, rubs, gallop, clicks GI/Abdominal exam: Present: soft, normal bowel sounds. Absent: distended, tenderness, guarding, rebound, rigid Neurological exam: Present: alert, oriented X3, CN II-XII intact Psychiatric exam: Present: normal affect, normal mood Skin exam: Present: warm, dry, intact, normal color. Absent: rash Course Vital Signs 03/07/23 03/07/23 03/07/23 17:57 20:00 20:30 Temperature 97.6 F Pulse Rate 98 88 Respiratory 24 Rate Blood Pressure 186/125 189/70 130/88 O2 Sat by Pulse 99 98 Oximetry 03/07/23 22:51 Temperature 97.8 F Pulse Rate 92 Respiratory 18 Rate Blood Pressure 130/92 O2 Sat by Pulse 98 Oximetry Medical Decision Making - Medical Decision Making I performed the QuickNote portion of this chart. Signed Carolann Hurd PA-C. This is a 67-year-old male who presents to the emergency department for nausea and vomiting. Was pt. sent in by a medical professional or institution? @ -No Did you speak to anyone other than the patient for history? @ -No Did you review nursing and triage notes? @ -Yes, and I agree, it is accurate with regards to the patient's symptoms. Were old charts reviewed? @ -No Differential Diagnosis? @ -Differential Nausea and Vomiting: Gastroenteritis, cholecystitis, appendicitis, pancreatitis, migraine, benign positional vertigo, food borne illness, pyelonephritis, irritable bowel syndrome, influenza, Covid, GERD, incarcerated hernia, intestinal obstruction, this is not meant to be an all-inclusive list. EKG interpreted by me (3pts min.)? @ -Not obtained X-rays interpreted by me (1pt min.)? @ -Chest x-ray obtained, my interpretation identifies no localized consolidations or infiltrates. CT interpreted by me (1pt min.)? @ -Not obtained U/S interpreted by me (1pt. min.)? @ -Not obtained What testing was considered but not performed? (CT, X-rays, U/S, labs)? Why? @ -None What meds were considered but not given? Why? @ -None Did you discuss the management of the patient with other professionals? @ -No Did you reconcile home meds? @ -No Was smoking cessation discussed for >3mins.? @ -No Was critical care preformed (if so, how long)? @ -No Were there social determinants of health that impacted care today? How? (Homelessness, low income, unemployed, alcoholism, drug addiction, transportation, low edu. Level, literacy, decrease access to med. care, fci, rehab)? @ -No Was there de-escalation of care discussed even if they declined? (Discuss DNR or withdrawal of care, Hospice)? @ -No What co-morbidities impacted this encounter? (DM, HTN, Smoking, COPD, CAD, Cancer, CVA, Hep., AIDS, mental health diagnosis, sleep apnea, morbid obesity)? @ -CAD, renal disease, HTN, HLD Was patient admitted / discharged? @ -Discharged. Lab work obtained revealing mild leukocytosis and signs of dehydration. Patient did test positive for COVID-19. Patient treated with a liter bolus of IV fluids and Zofran initially, however he continued to have nausea and vomiting. He was subsequently given a dose of Reglan, which he felt was much more beneficial. He was tolerating oral intake afterwards and felt stable for discharge home. Rx for Reglan provided with dosing instructions reviewed. Advised he slowly advance his diet as tolerated and remain well- hydrated. Undiagnosed new problem with uncertain prognosis? @ -None Drug Therapy requiring intensive monitoring for toxicity (Heparin, Nitro, Insulin, Cardizem)? @ -None Were any procedures done? @ -None Diagnosis/symptom? @ -Nausea and vomiting, COVID-19 Acute, or Chronic, or Acute on Chronic? @ -Acute Uncomplicated (without systemic symptoms) or Complicated (systemic symptoms)? @ -Uncomplicated Side effects of treatment? @ -None Exacerbation, Progression, or Severe Exacerbation] @ -Not applicable Poses a threat to life or bodily function? @ -No Return precautions reviewed in depth, the patient is instructed to return to the emergency department with any new, worsening, or concerning symptoms. Patient verbalized understanding. This case was discussed in detail with the attending ED physician, Dr. Lee. Presentation, findings, and treatment plan discussed in detail as well. - Lab Data Result diagrams: 03/07/23 18:01 03/07/23 18:01 Lab Results 03/07/23 03/07/23 03/07/23 Range/Units 18:01 18:01 18:01 WBC 12.1 H (3.8-10.6) k/uL RBC 5.72 (4.30-5.90) m/uL Hgb 17.8 H (13.0-17.5) gm/dL Hct 48.3 (39.0-53.0) % MCV 84.3 (80.0-100.0) fL MCH 31.0 (25.0-35.0) pg MCHC 36.8 (31.0-37.0) g/dL RDW 14.4 (11.5-15.5) % Plt Count 256 (150-450) k/uL MPV 8.8 Neutrophils % 83 % Lymphocytes % 11 % Monocytes % 5 % Eosinophils % 0 % Basophils % 0 % Neutrophils # 10.0 H (1.3-7.7) k/uL Lymphocytes # 1.3 (1.0-4.8) k/uL Monocytes # 0.6 (0-1.0) k/uL Eosinophils # 0.0 (0-0.7) k/uL Basophils # 0.1 (0-0.2) k/uL Sodium 142 (137-145) mmol/L Potassium 4.2 (3.5-5.1) mmol/L Chloride 109 H (98-107) mmol/L Carbon Dioxide 12 L (22-30) mmol/L Anion Gap 21 mmol/L BUN 20 (9-20) mg/dL Creatinine 1.61 H (0.66-1.25) mg/dL Est GFR (CKD-EPI)AfAm 50 (>60 ml/min/1.73 sqM) Est GFR (CKD-EPI)NonAf 44 (>60 ml/min/1.73 sqM) Glucose 133 H (74-99) mg/dL Calcium 11.6 H (8.4-10.2) mg/dL Magnesium 1.9 (1.6-2.3) mg/dL Total Bilirubin 1.1 (0.2-1.3) mg/dL AST 29 (17-59) U/L ALT 29 (4-49) U/L Alkaline Phosphatase 164 H (38-126) U/L Troponin I <0.012 (0.000-0.034) ng/mL Total Protein 9.5 H (6.3-8.2) g/dL Albumin 5.7 H (3.5-5.0) g/dL Amylase 63 (30-110) U/L Lipase 79 (23-300) U/L Influenza Type A (PCR) (Not Detectd) Influenza Type B (PCR) (Not Detectd) RSV (PCR) (Not Detectd) SARS-CoV-2 (PCR) (Not Detectd) 03/07/23 Range/Units 18:39 WBC (3.8-10.6) k/uL RBC (4.30-5.90) m/uL Hgb (13.0-17.5) gm/dL Hct (39.0-53.0) % MCV (80.0-100.0) fL MCH (25.0-35.0) pg MCHC (31.0-37.0) g/dL RDW (11.5-15.5) % Plt Count (150-450) k/uL MPV Neutrophils % % Lymphocytes % % Monocytes % % Eosinophils % % Basophils % % Neutrophils # (1.3-7.7) k/uL Lymphocytes # (1.0-4.8) k/uL Monocytes # (0-1.0) k/uL Eosinophils # (0-0.7) k/uL Basophils # (0-0.2) k/uL Sodium (137-145) mmol/L Potassium (3.5-5.1) mmol/L Chloride (98-107) mmol/L Carbon Dioxide (22-30) mmol/L Anion Gap mmol/L BUN (9-20) mg/dL Creatinine (0.66-1.25) mg/dL Est GFR (CKD-EPI)AfAm (>60 ml/min/1.73 sqM) Est GFR (CKD-EPI)NonAf (>60 ml/min/1.73 sqM) Glucose (74-99) mg/dL Calcium (8.4-10.2) mg/dL Magnesium (1.6-2.3) mg/dL Total Bilirubin (0.2-1.3) mg/dL AST (17-59) U/L ALT (4-49) U/L Alkaline Phosphatase (38-126) U/L Troponin I (0.000-0.034) ng/mL Total Protein (6.3-8.2) g/dL Albumin (3.5-5.0) g/dL Amylase (30-110) U/L Lipase (23-300) U/L Influenza Type A (PCR) Not Detected (Not Detectd) Influenza Type B (PCR) Not Detected (Not Detectd) RSV (PCR) Not Detected (Not Detectd) SARS-CoV-2 (PCR) Detected A (Not Detectd) - Radiology Data Radiology results: report reviewed, image reviewed Disposition Clinical Impression: Nausea & vomiting, COVID-19 Disposition: HOME SELF-CARE Instructions (If sedation given, give patient instructions): Coronavirus Disease 2019 (COVID-19), Acute Nausea and Vomiting (ED) Additional Instructions: Return to the emergency department with any new, worsening, or concerning symptoms. You can take the Reglan up to every 6 hours as needed for nausea and vomiting. Slowly advance your diet as tolerated and remain well-hydrated. Prescriptions: Metoclopramide [Reglan] 10 mg PO Q6H PRN #30 tab PRN Reason: Nausea And Vomiting Is patient prescribed a controlled substance at d/c from ED?: No Referrals: Sammie Mercedes MD [Primary Care Provider] - 1-2 days Time of Disposition: 22:29
[2023-03-07] MEDS: SODIUM CHLORIDE 0.9% 1,000 ML IV STA (18:32)
[2023-03-07] MEDS: ONDANSETRON 4 MG/2 ML VIAL IVP STA (18:34)
--- NOTE | 2023-03-07 19:01 | XR ---
EXAMINATION TYPE: XR chest 2V DATE OF EXAM: 03/07/2023 COMPARISON: 06/10/2022 HISTORY: Shortness of breath TECHNIQUE: Frontal and lateral views of the chest are obtained. FINDINGS: Scattered senescent parenchymal changes noted. Hyperinflation compatible with COPD. No evidence for infiltrate. No evidence for atelectasis. Heart size is stable. Mediastinal structures are stable and grossly unremarkable. No evidence for hilar prominence. Degenerative changes dorsal spine. IMPRESSION: 1. No evidence for acute pulmonary disease.
[2023-03-07 19:06] LABS: Basophils # (A) 0.1 k/uL (0-0.2); Basophils % (A) 0 %; Eosinophils % (A) 0 %; HCT 48.3 % (39.0-53.0); HGB 17.8 gm/dL (13.0-17.5); Lymphocytes # (A) 1.3 k/uL (1.0-4.8); Lymphocytes % (A) 11 %; MCHC 36.8 g/dL (31.0-37.0); MCV 84.3 fL (80.0-100.0); Mean Platelet Volume 8.8; Monocytes # (A) 0.6 k/uL (0-1.0); Monocytes % (A) 5 %; Neutrophils % (A) 83 %; Platelet Count 256 k/uL (150-450); RBC 5.72 m/uL (4.30-5.90); RDW 14.4 % (11.5-15.5); WBC 12.1 k/uL (3.8-10.6)
[2023-03-07] MEDS: METOCLOPRAMIDE 5 MG/ML 2 ML VIAL IVP STA (19:42)
[2023-03-07] MEDS: HYDROmorphone 1 MG/ML 1 ML SYRINGE IVP STA ×2 (19:43→22:03)
[2023-03-07 19:44] LABS: ALT 29 U/L (4-49); AST 29 U/L (17-59); African American GFR (CKD) 50 (>60 ml/min/1.73 sqM); Albumin 5.7 g/dL (3.5-5.0); Alkaline Phosphatase 164 U/L (38-126); Amylase 63 U/L (30-110); Anion Gap 21 mmol/L; Blood Urea Nitrogen 20 mg/dL (9-20); Calcium 11.6 mg/dL (8.4-10.2); Carbon Dioxide 12 mmol/L (22-30); Chloride 109 mmol/L (98-107); Glucose 133 mg/dL (74-99); Lipase 79 U/L (23-300); Magnesium 1.9 mg/dL (1.6-2.3); Non-African American GFR(CKD) 44 (>60 ml/min/1.73 sqM); Potassium 4.2 mmol/L (3.5-5.1); Sodium 142 mmol/L (137-145); Total Bilirubin 1.1 mg/dL (0.2-1.3); Total Protein 9.5 g/dL (6.3-8.2)
[2023-03-07] MEDS: METOCLOPRAMIDE 10 MG TAB PO STA (22:45)
[2023-03-07 23:04] VITALS: BP 130/92; PULSE 92; RESP 18; TEMP 97.8
== END 2023-03-07 22:52 | disposition home or self-care (01) ==
LOC: EC 17:50
DX: U07.1 COVID-19 (principal); I10 Essential (primary) hypertension; I25.10 Atherosclerotic heart disease of native coronary artery without angina pectoris; I25.2 Old myocardial infarction; J44.9 Chronic obstructive pulmonary disease, unspecified; E03.9 Hypothyroidism, unspecified; I48.0 Paroxysmal atrial fibrillation; F12.90 Cannabis use, unspecified, uncomplicated; Z87.891 Personal history of nicotine dependence; Z79.02 Long term (current) use of antithrombotics/antiplatelets; Z79.899 Other long term (current) drug therapy; Z88.8 Allergy status to other drugs, medicaments and biological substances; Z86.718 Personal history of other venous thrombosis and embolism
CPT/HCPCS: 36415; 80053; 82150; 83690; 83735; 84484; 85025; 87636; 71046; 99284; 96374; 96375 ×2; 96376; J2765; J2405; J1170

== ENCOUNTER → 2023-06-01 | Outpatient (CLI) | payer MEDICARE ==
--- NOTE | 2023-06-02 17:39 | MR ---
EXAMINATION TYPE: MR lumbar spine wo con DATE OF EXAM: 06/01/2023 COMPARISON: CT abdomen and pelvis December 09, 2022 HISTORY: Evaluate arthrodesis status, Low back pain into both legs, Hx Back surgery 1999 TECHNIQUE: Multiplanar, multisequence imaging of the lumbar spine is performed without IV contrast. FINDINGS: Sagittal images of the lumbar spine show vertebral body heights and alignment to remain sat isfactory. Susceptibility artifact from posterior rods and screws with artificial disc material at L3 -L5 levels is redemonstrated. Multilevel disc desiccation above and below surgical levels. Mild disc space narrowing at L2-L3 level. The conus medullaris is normal in position and signal ending at supe rior L1 level. Mild multilevel anterior spurring is redemonstrated. Axial images show T12-L1 and L1-L2 levels to appear within normal limits. Axial images at L2-L3 level show mild broad disc bulge minimally effaces the anterior thecal sac. The re is susceptibility artifact from metallic surgical hardware. Posterior decompression changes are pr esent. Axial images at L3-L4 and L4-L5 levels are degraded by sensibility artifact. Extensive posterior ossi fic resection is seen. Spinal canal is grossly preserved. Bilateral neural foramina are likely patent . Axial images at L5-S1 level show mild to moderate facet arthropathy bilaterally. No significant disc herniation. Spinal canal is preserved. Bilateral neural foramina are patent. Posterior paraspinal muscular atrophy is noted. IMPRESSION: Postsurgical changes L3-L5 levels with stable and satisfactory alignment. Successful post erior decompression. Some mild multilevel degenerative changes are present as detailed above.
== END | disposition home or self-care (01) ==
LOC: RADMRIMAIN 17:43
PROVIDERS: ATTEND Neurological Surgery
DX: M47.817 Spondylosis without myelopathy or radiculopathy, lumbosacral region (principal); Z98.1 Arthrodesis status
CPT/HCPCS: 72148

== ENCOUNTER 2023-11-28 10:03 | Emergency (ER) | payer MEDICARE ==
--- NOTE | 2023-11-28 10:22 | ED ---
URI HPI - General Chief Complaint: Upper Respiratory Infection Stated Complaint: Cough Time Seen by Provider: 11/28/23 10:20 Source: patient, RN notes reviewed Mode of arrival: ambulatory Limitations: no limitations - History of Present Illness Initial Comments: This is a 68-year-old male with a history of COPD presenting to the emergency department chief complaint of productive cough over the past approximately 3 weeks. Patient states that he went to his primary care provider on Tuesday where he was tested for COVID that resulted negative and he was started on azithromycin on Tuesday. His symptoms have not been improving. He has been coughing frequently which has resulted in him having episodes of emesis and one- time passing out. States that he has pain in the right lower lobe of his lung. He is unaware if he has been experiencing fevers. He endorses nausea with episodes of pain. Patient denies use of daily steroids or inhalants for COPD. Denies current steroid use. - Related Data Home Medications Medication Instructions Recorded Confirmed Levothyroxine Sodium [Synthroid] 75 mcg PO DAILY 05/04/16 11/28/23 Evolocumab [Repatha Sureclick] 140 mg SQ Q14D 04/20/22 11/28/23 Isosorbide Mononitrate ER [Imdur] 30 mg PO DAILY 04/20/22 11/28/23 amLODIPine [Norvasc] 10 mg PO DAILY 06/10/22 11/28/23 Clopidogrel [Plavix] 75 mg PO DAILY 09/24/22 11/28/23 Dicyclomine [Bentyl] 10 mg PO TID PRN 06/30/23 11/28/23 Azithromycin [Zithromax Z Pack] See Taper PO DIRECTED 11/28/23 11/28/23 DULoxetine HCL [Cymbalta] 30 mg PO HS 11/28/23 11/28/23 Previous Rx's Medication Instructions Recorded Aspirin 81 mg PO DAILY #30 tab 10/17/21 Pantoprazole [Protonix] 40 mg PO AC-BID #60 tab 10/22/21 cloNIDine HCL [Catapres] 0.1 mg PO BID tab 10/22/21 Benzonatate [Tessalon Perles] 100 mg PO TID PRN #15 capsule 11/28/23 predniSONE 50 mg PO DAILY #5 tab 11/28/23 Allergies Allergy/AdvReac Type Severity Reaction Status Date / Time rivaroxaban [From Xarelto] AdvReac Severe Nausea & Verified 11/28/23 11:36 Vomiting & Diarrhea,cramps,sweating paroxetine HCl [From Paxil] AdvReac Unknown Nausea & Verified 11/28/23 11:36 Vomiting & Diarrhea,cramps,sweating apixaban [From Eliquis] AdvReac Nausea & Verified 11/28/23 11:36 Vomiting & Diarrhea,cramps,sweating atorvastatin [From Lipitor] AdvReac Nausea & Verified 11/28/23 11:36 Vomiting & Diarrhea,cramps,sweating Beta-Blockers AdvReac Nausea & Verified 11/28/23 11:36 (Beta-Adrenergic Bloc Vomiting & Diarrhea,cramps,sweating gabapentin AdvReac Nausea & Verified 11/28/23 11:36 Vomiting & Diarrhea,cramps,sweating pregabalin AdvReac Nausea & Verified 11/28/23 11:36 Vomiting & Diarrhea Dfsomfa-HTY-TyB Reductase AdvReac Nausea & Verified 11/28/23 11:36 Inhibitor Vomiting & Diarrhea,cramps,sweating warfarin AdvReac Nausea & Verified 11/28/23 11:36 Vomiting & Diarrhea,cramps,sweating Review of Systems ROS Statement: Those systems with pertinent positive or pertinent negative responses have been documented in the HPI. ROS Other: All systems not noted in ROS Statement are negative. Past Medical History Past Medical History: Atrial Fibrillation, Coronary Artery Disease (CAD), Chest Pain / Angina, COPD, Deep Vein Thrombosis (DVT), GERD/Reflux, GI Bleed, Hyperlipidemia, Hypertension, Myocardial Infarction (VA), Musculoskeletal Disor arin, Osteoarthritis (OA), Pneumonia, Renal Disease, Syncope, Thyroid Disorder Additional Past Medical History / Comment(s): Paroxysmal afib, hx of fall with fx stenum/ribs, episodes of acute renal failure associated with dehydration, past melana stools, diverticulitis, IBS, return of hiatal hernia, bronchitis, hypothyroid, chronic low back pain with bilateral sciatica, lumbar DDD, past migraines, DJD, numbness/tingling bilateral legs/feet, 4 DVTs L leg surgically removed. ,covid + July 2021, hx of hematemesis with recent egd- erosions. Last Myocardial Infarction Date:: 10/15/21 History of Any Multi-Drug Resistant Organisms: None Reported Past Surgical History: Back Surgery, Cholecystectomy, Heart Catheterization, Heart Catheterization With Stent, Hernia Repair, Orthopedic Surgery Additional Past Surgical History / Comment(s): Back fusions L3-L5, ORIF L ankle, L hand fracture with surgery, R knee arthroscopy x2, R elbow tendon release, R shoulder arthroscopy, L shoulder arthroscopy, lumbar spine cyst removed, pain clinic procedures, taylor fundoplication, EGD, colonoscopy, 2019 arteriogram/thrombus extraction at [facility]. PTCA w/ 3 stents now. rt knee replacemnt, right quad repair Past Anesthesia/Blood Transfusion Reactions: No Reported Reaction Date of Last Stent Placement:: 10/15/21 Past Psychological History: No Psychological Hx Reported Smoking Status: Former smoker Past Alcohol Use History: Heavy, Occasional Past Drug Use History: Marijuana - Past Family History Mother Family Medical History: No Reported History, Thyroid Disorder Additional Family Medical History / Comment(s): . Father Family Medical History: Coronary Artery Disease (CAD), Diabetes Mellitus Additional Family Medical History / Comment(s): Father had CABG. He at the age of 84 yrs in a MVA. Sister(s) Family Medical History: Cancer Additional Family Medical History / Comment(s): Sister #1 skin cancer, sister #2 thyroid cancer. General Exam Limitations: no limitations General appearance: alert, in no apparent distress Eye exam: Present: normal appearance, PERRL, EOMI. Absent: scleral icterus, conjunctival injection, periorbital swelling ENT exam: Present: normal exam, mucous membranes moist Neck exam: Present: normal inspection. Absent: tenderness, meningismus, lymphadenopathy Respiratory exam: Present: wheezes, rhonchi, chest wall tenderness (posterior right), decreased breath sounds. Absent: normal lung sounds bilaterally, stridor, accessory muscle use Cardiovascular Exam: Present: regular rate, normal rhythm, normal heart sounds. Absent: systolic murmur, diastolic murmur, rubs, gallop, clicks GI/Abdominal exam: Present: soft, normal bowel sounds. Absent: distended, tenderness, guarding, rebound, rigid Extremities exam: Present: normal inspection, full ROM, normal capillary refill. Absent: tenderness, pedal edema, joint swelling, calf tenderness Back exam: Present: normal inspection Neurological exam: Present: alert, oriented X3, CN II-XII intact Skin exam: Present: warm, dry, intact, normal color. Absent: rash Course Vital Signs 11/28/23 11/28/23 10:08 10:53 Temperature 98.2 F 98.6 F Pulse Rate 79 62 Respiratory 16 17 Rate Blood Pressure 145/96 158/117 O2 Sat by Pulse 99 96 Oximetry Medical Decision Making - Medical Decision Making Was pt. sent in by a medical professional or institution (, [facility], OPHTHALMIC AIDE, urgent care, hospital, or snf...) When possible be specific @ -No Did you speak to anyone other than the patient for history (EMS, parent, family, police, friend...)? What history was obtained from this source @ -No Did you review nursing and triage notes (agree or disagree)? Why? @ -I reviewed and agree with nursing and triage notes Were old charts reviewed (outside hosp., previous admission, EMS record, old EKG, old radiological studies, urgent care reports/EKG's, snf records)? Report findings @ -No old charts were reviewed Differential Diagnosis (chest pain, altered mental status, abdominal pain women, abdominal pain men, vaginal bleeding, weakness, fever, dyspnea, syncope, headache, dizziness, GI bleed, back pain, seizure, CVA, palpatations, mental health, musculoskeletal)? @ -COVID 19, RSV, influenza, pneumonia, acute bronchitis, URI, this list is not all inclusive EKG interpreted by me (3pts min.). @ -None X-rays interpreted by me (1pt min.). @ -Chest x-ray no evidence for acute cardiopulmonary process or disease. CT interpreted by me (1pt min.). @ -None done U/S interpreted by me (1pt. min.). @ -None done What testing was considered but not performed or refused? (CT, X-rays, U/S, labs)? Why? @ -None What meds were considered but not given or refused? Why? @ -None Did you discuss the management of the patient with other professionals (professionals i.e. [facility] Mathur, OPHTHALMIC AIDE, lab, RT, psych nurse, social work job titles, silo operator, teacher, biological technical officer, rn case management)? Give summary @ -No Was smoking cessation discussed for >3mins.? @ -No Was critical care preformed (if so, how long)? @ -No Were there social determinants of health that impacted care today? How? (Homelessness, low income, unemployed, alcoholism, drug addiction, transportation, low edu. Level, literacy, decrease access to med. care, skilled nursing, rehab)? @ -No Was there de-escalation of care discussed even if they declined (Discuss DNR or withdrawal of care, Hospice)? DNR status @ -No What co-morbidities impacted this encounter? (DM, HTN, Smoking, COPD, CAD, Cancer, CVA, ARF, Chemo, Hep., AIDS, mental health diagnosis, sleep apnea, morbid obesity)? @ -COPD Was patient admitted / discharged? Hospital course, mention meds given and route, prescriptions, significant lab abnormalities, going to OR and other pertinent info. @ -Discharged. 68-year-old male with productive cough. On my evaluation patient is resting comfortably no signs acute distress. His vitals are stable. Pulmonary examination remarkable for bilateral decreased breath sounds with wheezing and rhonchi. No signs of difficulty breathing. Patient will be evaluated via chest x-ray, viral swabs, laboratory studies for further evaluation. He is agree with this plan. Chest x-ray unremarkable, COVID, flu, RSV negative, labs remarkable for mildly elevated lactic at 2.2 which is likely secondary to mild dehydration. Patient is able to tolerate oral liquids therefore fluids are not administered and recommend that he increase hydration. Patient is provided with dose of steroids and DuoNeb breathing to the emergency department and will be discharged home with oral course of steroids and Tessalon Perles for COPD exacerbation. Additionally, patient has been taking azithromycin prescribed his primary care provider over the past few days recommend that he completes his full course. Discussed with Dr. Lee Undiagnosed new problem with uncertain prognosis? @ -No Drug Therapy requiring intensive monitoring for toxicity (Heparin, Nitro, Insulin, Cardizem)? @ -No Were any procedures done? @ -No Diagnosis/symptom? @ -COPD exacerbation, cough Acute, or Chronic, or Acute on Chronic? @ -acute Uncomplicated (without systemic symptoms) or Complicated (systemic symptoms)? @ -uncomplicated Side effects of treatment? @ -No Exacerbation, Progression, or Severe Exacerbation? @ -No Poses a threat to life or bodily function? How? (Chest pain, USA, VA, pneumonia, PE, COPD, DKA, ARF, appy, cholecystitis, CVA, Diverticulitis, Homicidal, Suicidal, threat to staff... and all critical care pts) @ -No - Lab Data Result diagrams: 11/28/23 10:36 11/28/23 10:36 Lab Results 11/28/23 11/28/23 11/28/23 Range/Units 10:36 10:36 10:36 WBC 7.8 (3.8-10.6) k/uL RBC 4.89 (4.30-5.90) m/uL Hgb 15.1 (13.0-17.5) gm/dL Hct 44.9 (39.0-53.0) % MCV 91.7 (80.0-100.0) fL MCH 30.8 (25.0-35.0) pg MCHC 33.6 (31.0-37.0) g/dL RDW 13.2 (11.5-15.5) % Plt Count 231 (150-450) k/uL MPV 7.6 Neutrophils % 71 % Lymphocytes % 20 % Monocytes % 6 % Eosinophils % 2 % Basophils % 0 % Neutrophils # 5.5 (1.3-7.7) k/uL Lymphocytes # 1.6 (1.0-4.8) k/uL Monocytes # 0.4 (0-1.0) k/uL Eosinophils # 0.1 (0-0.7) k/uL Basophils # 0.0 (0-0.2) k/uL Sodium 139 (137-145) mmol/L Potassium 4.2 (3.5-5.1) mmol/L Chloride 107 (98-107) mmol/L Carbon Dioxide 23 (22-30) mmol/L Anion Gap 9 mmol/L BUN 16 (9-20) mg/dL Creatinine 0.87 (0.66-1.25) mg/dL Est GFR (CKD-EPI)AfAm >90 (>60 ml/min/1.73 sqM) Est GFR (CKD-EPI)NonAf 88 (>60 ml/min/1.73 sqM) Glucose 117 H (74-99) mg/dL Plasma Lactic Acid Chacorta 2.2 H* (0.7-2.0) mmol/L Calcium 9.7 (8.4-10.2) mg/dL Total Bilirubin 0.8 (0.2-1.3) mg/dL AST 23 (17-59) U/L ALT 21 (4-49) U/L Alkaline Phosphatase 98 (38-126) U/L Total Protein 6.7 (6.3-8.2) g/dL Albumin 4.3 (3.5-5.0) g/dL Influenza Type A (PCR) (Not Detectd) Influenza Type B (PCR) (Not Detectd) RSV (PCR) (Not Detectd) SARS-CoV-2 (PCR) (Not Detectd) 11/28/23 Range/Units 10:36 WBC (3.8-10.6) k/uL RBC (4.30-5.90) m/uL Hgb (13.0-17.5) gm/dL Hct (39.0-53.0) % MCV (80.0-100.0) fL MCH (25.0-35.0) pg MCHC (31.0-37.0) g/dL RDW (11.5-15.5) % Plt Count (150-450) k/uL MPV Neutrophils % % Lymphocytes % % Monocytes % % Eosinophils % % Basophils % % Neutrophils # (1.3-7.7) k/uL Lymphocytes # (1.0-4.8) k/uL Monocytes # (0-1.0) k/uL Eosinophils # (0-0.7) k/uL Basophils # (0-0.2) k/uL Sodium (137-145) mmol/L Potassium (3.5-5.1) mmol/L Chloride (98-107) mmol/L Carbon Dioxide (22-30) mmol/L Anion Gap mmol/L BUN (9-20) mg/dL Creatinine (0.66-1.25) mg/dL Est GFR (CKD-EPI)AfAm (>60 ml/min/1.73 sqM) Est GFR (CKD-EPI)NonAf (>60 ml/min/1.73 sqM) Glucose (74-99) mg/dL Plasma Lactic Acid Chacorta (0.7-2.0) mmol/L Calcium (8.4-10.2) mg/dL Total Bilirubin (0.2-1.3) mg/dL AST (17-59) U/L ALT (4-49) U/L Alkaline Phosphatase (38-126) U/L Total Protein (6.3-8.2) g/dL Albumin (3.5-5.0) g/dL Influenza Type A (PCR) Not Detected (Not Detectd) Influenza Type B (PCR) Not Detected (Not Detectd) RSV (PCR) Not Detected (Not Detectd) SARS-CoV-2 (PCR) Not Detected (Not Detectd) Disposition Clinical Impression: COPD exacerbation, Productive cough Disposition: HOME SELF-CARE Condition: Good Instructions (If sedation given, give patient instructions): COPD (Chronic Obstructive Pulmonary Disease) (ED) Additional Instructions: Please return to the Emergency Department if symptoms worsen or any other concerns. Recommend that you start taking steroid, prednisone, tomorrow and complete full course. Additionally, take Tessalon Perles as needed for intermittent cough. Complete full course azithromycin as prescribed by her primary care provider. Prescriptions: predniSONE 50 mg PO DAILY #5 tab Benzonatate [Tessalon Perles] 100 mg PO TID PRN #15 capsule PRN Reason: Cough Is patient prescribed a controlled substance at d/c from ED?: No Referrals: Sammie Mercedes MD [Primary Care Provider] - 1-2 days Time of Disposition: 11:35
[2023-11-28] MEDS: methylPREDNISolone SOD SUCCI 125 MG/2 ML VIAL IV STA (10:41)
[2023-11-28 10:47] LABS: Basophils % (A) 0 %; Eosinophils # (A) 0.1 k/uL (0-0.7); Eosinophils % (A) 2 %; HCT 44.9 % (39.0-53.0); HGB 15.1 gm/dL (13.0-17.5); Lymphocytes # (A) 1.6 k/uL (1.0-4.8); Lymphocytes % (A) 20 %; MCH 30.8 pg (25.0-35.0); MCHC 33.6 g/dL (31.0-37.0); MCV 91.7 fL (80.0-100.0); Mean Platelet Volume 7.6; Monocytes # (A) 0.4 k/uL (0-1.0); Monocytes % (A) 6 %; Neutrophils # (A) 5.5 k/uL (1.3-7.7); Neutrophils % (A) 71 %; Platelet Count 231 k/uL (150-450); RBC 4.89 m/uL (4.30-5.90); RDW 13.2 % (11.5-15.5); WBC 7.8 k/uL (3.8-10.6)
--- NOTE | 2023-11-28 10:58 | XR ---
EXAMINATION TYPE: XR chest 2V DATE OF EXAM: 11/28/2023 10:51 AM CLINICAL INDICATION: Male, 68 years old with history of cough, congestion; COMPARISON: Chest radiographs from 07/01/2023 TECHNIQUE: XR chest 2V Frontal view of the chest. FINDINGS: Lungs/Pleura: There is no evidence of pleural effusion, focal consolidation, or pneumothorax. Pulmonary vascularity: Unremarkable. Heart/mediastinum: Cardiomediastinal silhouette is unremarkable. Musculoskeletal: No acute osseous pathology. IMPRESSION: No acute cardiopulmonary disease/process. [facility], , 11/28/2023 10:56 AM
[2023-11-28 11:11] LABS: ALT 21 U/L (4-49); AST 23 U/L (17-59); African American GFR (CKD) >90 (>60 ml/min/1.73 sqM); Albumin 4.3 g/dL (3.5-5.0); Alkaline Phosphatase 98 U/L (38-126); Anion Gap 9 mmol/L; Blood Urea Nitrogen 16 mg/dL (9-20); Calcium 9.7 mg/dL (8.4-10.2); Carbon Dioxide 23 mmol/L (22-30); Chloride 107 mmol/L (98-107); Glucose 117 mg/dL (74-99); Non-African American GFR(CKD) 88 (>60 ml/min/1.73 sqM); Potassium 4.2 mmol/L (3.5-5.1); Sodium 139 mmol/L (137-145); Total Bilirubin 0.8 mg/dL (0.2-1.3); Total Protein 6.7 g/dL (6.3-8.2)
[2023-11-28] MEDS: IPRATROPIUM-ALBUTEROL 3 ML NEB INHALATION STA (11:38)
[2023-11-28] MEDS: ONDANSETRON 4 MG/2 ML VIAL IVP STA (11:54)
[2023-11-28 12:04] VITALS: BP 144/86; PULSE 63; RESP 20; TEMP 97.6
== END 2023-11-28 12:04 | disposition home or self-care (01) ==
LOC: EC 10:03
CPT/HCPCS: 36415; 71046; 80053; 83605; 85025; 87636; 94640; 96374; 96375; 99283

== ENCOUNTER 2023-12-30 12:21 | Emergency (ER) | payer MEDICARE ==
[2023-12-30 12:40] VITALS: BP 170/118; PULSE 84; RESP 18; TEMP 97.6
--- NOTE | 2023-12-30 12:52 | ED ---
Upper Extremity HPI - General Source: patient, RN notes reviewed Mode of arrival: ambulatory Limitations: no limitations - History of Present Illness Complaint: Injury to:: left, finger Other Extremity Injury: Fingers: Left Place: home Severity scale (1-10): 10 <JobHermes - Last Filed: 12/30/23 12:50> - General Source: patient, RN notes reviewed Mode of arrival: ambulatory Limitations: no limitations - History of Present Illness MD Complaint: Injury to:: left, finger <Carolann Hurd - Last Filed: 12/30/23 17:03> - General Chief Complaint: Extremity Injury, Upper Stated Complaint: L hand lac Time Seen by Provider: 12/30/23 12:37 - History of Present Illness Initial Comments: Quick note: This is a 68-year-old male presenting with left ring finger injury/pain (11/16) x 3 days. Patient states he was cutting a deer when he accidentally cut the affected finger. Patient states he went to an urgent care, was referred to the ER. Patient endorses significant pain. Patient denies any other injury. (Hermes Kaiser) This is a 68-year-old male who presents to the emergency department for an injury to the left ring finger. States that 3 days ago he was cutting a deer and accidentally cut his finger. States that he skinned the top of it with the knife. He originally went to urgent care and was advised that based on how he injured it it was not repairable with sutures. They bandaged this up and he returned today to have it rechecked. They advised that this was healing well. However, patient states that he is unable to sleep as result of the pain and he was sent here to discuss options for pain control. (Carolann Hurd) - Related Data Home Medications Medication Instructions Recorded Confirmed Levothyroxine Sodium [Synthroid] 75 mcg PO DAILY 05/04/16 11/28/23 Evolocumab [Repatha Sureclick] 140 mg SQ Q14D 04/20/22 11/28/23 Isosorbide Mononitrate ER [Imdur] 30 mg PO DAILY 04/20/22 11/28/23 amLODIPine [Norvasc] 10 mg PO DAILY 06/10/22 11/28/23 Clopidogrel [Plavix] 75 mg PO DAILY 09/24/22 11/28/23 Dicyclomine [Bentyl] 10 mg PO TID PRN 06/30/23 11/28/23 Azithromycin [Zithromax Z Pack] See Taper PO DIRECTED 11/28/23 11/28/23 DULoxetine HCL [Cymbalta] 30 mg PO HS 11/28/23 11/28/23 Previous Rx's Medication Instructions Recorded Aspirin 81 mg PO DAILY #30 tab 10/17/21 Pantoprazole [Protonix] 40 mg PO AC-BID #60 tab 10/22/21 cloNIDine HCL [Catapres] 0.1 mg PO BID tab 10/22/21 Benzonatate [Tessalon Perles] 100 mg PO TID PRN #15 capsule 11/28/23 predniSONE 50 mg PO DAILY #5 tab 11/28/23 HYDROcodone/APAP 7.5-325MG [[place] 1 tab PO Q6HR PRN 3 Days #12 tab 12/30/23 7.5-325] Allergies Allergy/AdvReac Type Severity Reaction Status Date / Time rivaroxaban [From Xarelto] AdvReac Severe Nausea & Verified 12/30/23 12:37 Vomiting & Diarrhea,cramps,sweating paroxetine HCl [From Paxil] AdvReac Unknown Nausea & Verified 12/30/23 12:37 Vomiting & Diarrhea,cramps,sweating apixaban [From Eliquis] AdvReac Nausea & Verified 12/30/23 12:37 Vomiting & Diarrhea,cramps,sweating atorvastatin [From Lipitor] AdvReac Nausea & Verified 12/30/23 12:37 Vomiting & Diarrhea,cramps,sweating Beta-Blockers AdvReac Nausea & Verified 12/30/23 12:37 (Beta-Adrenergic Bloc Vomiting & Diarrhea,cramps,sweating gabapentin AdvReac Nausea & Verified 12/30/23 12:37 Vomiting & Diarrhea,cramps,sweating pregabalin AdvReac Nausea & Verified 12/30/23 12:37 Vomiting & Diarrhea Rfbfeay-IAV-IdO Reductase AdvReac Nausea & Verified 12/30/23 12:37 Inhibitor Vomiting & Diarrhea,cramps,sweating warfarin AdvReac Nausea & Verified 12/30/23 12:37 Vomiting & Diarrhea,cramps,sweating Review of Systems ROS Other: All systems not noted in ROS Statement are negative. <Job,Hermes - Last Filed: 12/30/23 12:50> ROS Other: All systems not noted in ROS Statement are negative. <Carolann Hurd - Last Filed: 12/30/23 17:03> ROS Statement: Those systems with pertinent positive or pertinent negative responses have been documented in the HPI. Past Medical History Past Medical History: Atrial Fibrillation, Coronary Artery Disease (CAD), Chest Pain / Angina, COPD, Deep Vein Thrombosis (DVT), GERD/Reflux, GI Bleed, Hyperlipidemia, Hypertension, Myocardial Infarction (VA), Musculoskeletal Disorder, Osteoarthritis (OA), Pneumonia, Renal Disease, Syncope, Thyroid Disorder Additional Past Medical History / Comment(s): Paroxysmal afib, hx of fall with fx stenum/ribs, episodes of acute renal failure associated with dehydration, past melana stools, diverticulitis, IBS, return of hiatal hernia, bronchitis, hypothyroid, chronic low back pain with bilateral sciatica, lumbar DDD, past migraines, DJD, numbness/tingling bilateral legs/feet, 4 DVTs L leg surgically removed. ,covid + July 2021, hx of hematemesis with recent egd- erosions. Last Myocardial Infarction Date:: 10/15/21 History of Any Multi-Drug Resistant Organisms: None Reported Past Surgical History: Back Surgery, Cholecystectomy, Heart Catheterization, Heart Catheterization With Stent, Hernia Repair, Orthopedic Surgery Additional Past Surgical History / Comment(s): Back fusions L3-L5, ORIF L ankle, L hand fracture with surgery, R knee arthroscopy x2, R elbow tendon release, R shoulder arthroscopy, L shoulder arthroscopy, lumbar spine cyst removed, pain clinic procedures, taylor fundoplication, EGD, colonoscopy, 2019 arteriogram/thrombus extraction at [facility]. PTCA w/ 3 stents now. rt knee replacemnt, right quad repair Past Anesthesia/Blood Transfusion Reactions: No Reported Reaction Date of Last Stent Placement:: 10/15/21 Past Psychological History: No Psychological Hx Reported Smoking Status: Former smoker Past Alcohol Use History: Heavy, Occasional Past Drug Use History: Marijuana - Past Family History Mother Family Medical History: No Reported History, Thyroid Disorder Additional Family Medical History / Comment(s): . Father Family Medical History: Coronary Artery Disease (CAD), Diabetes Mellitus Additional Family Medical History / Comment(s): Father had CABG. He at the age of 84 yrs in a MVA. Sister(s) Family Medical History: Cancer Additional Family Medical History / Comment(s): Sister #1 skin cancer, sister #2 thyroid cancer. <Hermes Kaiser - Last Filed: 12/30/23 12:50> General Exam Limitations: no limitations <Hermes Kaiser - Last Filed: 12/30/23 12:50> Limitations: no limitations General appearance: alert, in no apparent distress Head exam: Present: atraumatic, normocephalic, normal inspection Respiratory exam: Present: normal lung sounds bilaterally. Absent: respiratory distress, wheezes, rales, rhonchi, stridor Cardiovascular Exam: Present: regular rate, normal rhythm, normal heart sounds. Absent: systolic murmur, diastolic murmur, rubs, gallop, clicks Neurological exam: Present: alert, oriented X3, CN II-XII intact Psychiatric exam: Present: normal affect, normal mood Skin exam: Present: other (Skin avulsion to the left ring finger. This is well- healing.) <Carolann Hurd - Last Filed: 12/30/23 17:03> - General Exam Comments Initial Comments: Visual Physical Exam Vital signs reviewed General: Well-appearing, nontoxic, no acute distress. Head: Normocephalic, atraumatic Eyes: PERRLA, EOMI ENT: Airway patent Chest: Nonlabored breathing Skin: No visual rash, normal skin tone Neuro: Alert and oriented 3 Musculoskeletal: No gross abnormalities. Left ring finger is wrapped in Kerlix and placed in finger splint. (Hermes Kaiser) Course Vital Signs 12/30/23 12:37 Temperature 97.6 F Pulse Rate 84 Respiratory 18 Rate Blood Pressure 170/118 O2 Sat by Pulse 97 Oximetry Medical Decision Making <Hermes Kaiser - Last Filed: 12/30/23 12:50> <Carolann Hurd - Last Filed: 12/30/23 17:03> - Medical Decision Making I completed the quick note portion of this chart signed RENA Fuentes (Hermes Kaiser) This is a 68-year-old male who presents to the emergency department for a laceration to the left ring finger. Was pt. sent in by a medical professional or institution? @ -No Did you speak to anyone other than the patient for history? @ -No Did you review nursing and triage notes? @ -Yes, and I agree, it is accurate with regards to the patient's symptoms. Were old charts reviewed? @ -No Differential Diagnosis? @ -Laceration, abrasion, burn, this is not meant to be an all-inclusive list. EKG interpreted by me (3pts min.)? @ -Not obtained X-rays interpreted by me (1pt min.)? @ -Not obtained CT interpreted by me (1pt min.)? @ -Not obtained U/S interpreted by me (1pt. min.)? @ -Not obtained What testing was considered but not performed? (CT, X-rays, U/S, labs)? Why? @ -None What meds were considered but not given? Why? @ -None Did you discuss the management of the patient with other professionals? @ -No Did you reconcile home meds? @ -No Was smoking cessation discussed for >3mins.? @ -No Was critical care preformed (if so, how long)? @ -No Were there social determinants of health that impacted care today? How? (Homelessness, low income, unemployed, alcoholism, drug addiction, transportation, low edu. Level, literacy, decrease access to med. care, correction, rehab)? @ -No Was there de-escalation of care discussed even if they declined? (Discuss DNR or withdrawal of care, Hospice)? @ -No What co-morbidities impacted this encounter? (DM, HTN, Smoking, COPD, CAD, Cancer, CVA, Hep., AIDS, mental health diagnosis, sleep apnea, morbid obesity)? @ -None Was patient admitted / discharged? @ -Discharged. On exam the wound appeared to be healing well. This was cleaned, bacitracin ointment was applied, and it was rebandaged. Rx for 3-day course of pain medication provided to be taken very sparingly when his pain is the most severe. Otherwise advised ibuprofen and Tylenol. Patient discharged home in stable condition. Case discussed with ED attending Dr. Rich. Return precautions reviewed in depth, the patient is instructed to return to the emergency department with any new, worsening, or concerning symptoms. Patient verbalized understanding. Undiagnosed new problem with uncertain prognosis? @ -None Drug Therapy requiring intensive monitoring for toxicity (Heparin, Nitro, Insulin, Cardizem)? @ -None Were any procedures done? @ -None Diagnosis/symptom? @ -Skin avulsion of finger Acute, or Chronic, or Acute on Chronic? @ -Acute Uncomplicated (without systemic symptoms) or Complicated (systemic symptoms)? @ -Uncomplicated Side effects of treatment? @ -None Exacerbation, Progression, or Severe Exacerbation] @ -Not applicable Poses a threat to life or bodily function? @ -No (Carolann Hurd) Disposition <Hermes Kaiser - Last Filed: 12/30/23 12:50> Is patient prescribed a controlled substance at d/c from ED?: Yes When asked, does pt state using other controlled substances?: Yes If prescribed controlled substance>3 days was MAPS reviewed?: Prescribed <3 Days Time of Disposition: 15:26 <Carolann Hurd - Last Filed: 12/30/23 17:03> Clinical Impression: Avulsion of skin of finger Disposition: HOME SELF-CARE Instructions (If sedation given, give patient instructions): Skin Avulsion (ED) Additional Instructions: Return to the emergency department with any new, worsening, or concerning symptoms. Take the [place] sparingly when your pain is the most severe. Follow up with your primary care provider in 1-2 days. Prescriptions: HYDROcodone/APAP 7.5-325MG [[place] 7.5-325] 1 tab PO Q6HR PRN 3 Days #12 tab PRN Reason: Pain Referrals: Sammie Mercedes MD [Primary Care Provider] - 1-2 days
[2023-12-30] MEDS: HYDROcodone/APAP 7.5-325MG 1 EACH TAB PO ONE (14:37)
[2023-12-30] MEDS: LIDOCAINE-PRILOCAINE 2.5-2.5% CREAM 5 GM TUBE TOPICAL STA (15:13)
[2023-12-30] MEDS: BACITRACIN OINT 1 EACH PACKET TOPICAL ONE (15:14)
== END 2023-12-30 16:16 | disposition home or self-care (01) ==
LOC: EC 12:21
DX: S61.215A Laceration without foreign body of left ring finger without damage to nail, initial encounter (principal); Z87.891 Personal history of nicotine dependence; Z88.8 Allergy status to other drugs, medicaments and biological substances; W26.0XXA Contact with knife, initial encounter
CPT/HCPCS: 99283

== ENCOUNTER 2024-01-15 09:45 | Emergency (ER) | payer MEDICARE ==
--- NOTE | 2024-01-15 10:21 | ED ---
General Adult HPI - General Chief complaint: Abdominal Pain Stated complaint: Abd pain,Vomiting Time Seen by Provider: 01/15/24 09:59 Source: patient, RN notes reviewed Mode of arrival: ambulatory Limitations: no limitations - History of Present Illness Initial comments: Patient is a 68-year-old male present to the emergency department with concerns with abdominal discomfort. Onset of symptoms was over a week ago. Patient has discomfort of his lower abdomen. Patient has had 2 or 3 episodes of diarrhea just today. Patient has been vomiting a few times per day for the past week. Patient's less nausea. Discomfort has progressively worsened. Patient does have a mild headache as well, just today. No fever. No weakness. - Related Data Home Medications Medication Instructions Recorded Confirmed Levothyroxine Sodium [Synthroid] 75 mcg PO DAILY 05/04/16 11/28/23 Evolocumab [Repatha Sureclick] 140 mg SQ Q14D 04/20/22 11/28/23 Isosorbide Mononitrate ER [Imdur] 30 mg PO DAILY 04/20/22 11/28/23 amLODIPine [Norvasc] 10 mg PO DAILY 06/10/22 11/28/23 Clopidogrel [Plavix] 75 mg PO DAILY 09/24/22 11/28/23 Dicyclomine [Bentyl] 10 mg PO TID PRN 06/30/23 11/28/23 Azithromycin [Zithromax Z Pack] See Taper PO DIRECTED 11/28/23 11/28/23 DULoxetine HCL [Cymbalta] 30 mg PO HS 11/28/23 11/28/23 Previous Rx's Medication Instructions Recorded Aspirin 81 mg PO DAILY #30 tab 10/17/21 Pantoprazole [Protonix] 40 mg PO AC-BID #60 tab 10/22/21 cloNIDine HCL [Catapres] 0.1 mg PO BID tab 10/22/21 Benzonatate [Tessalon Perles] 100 mg PO TID PRN #15 capsule 11/28/23 predniSONE 50 mg PO DAILY #5 tab 11/28/23 HYDROcodone/APAP 7.5-325MG [Hulen 1 tab PO Q6HR PRN 3 Days #12 tab 12/30/23 7.5-325] Amoxic-Pot Clav 875-125Mg 1 tab PO BID #28 tab 01/15/24 [Augmentin 875-125] Allergies Allergy/AdvReac Type Severity Reaction Status Date / Time rivaroxaban [From Xarelto] AdvReac Severe Nausea & Verified 01/15/24 09:58 Vomiting & Diarrhea,cramps,sweating paroxetine HCl [From Paxil] AdvReac Unknown Nausea & Verified 01/15/24 09:58 Vomiting & Diarrhea,cramps,sweating apixaban [From Eliquis] AdvReac Nausea & Verified 01/15/24 09:58 Vomiting & Diarrhea,cramps,sweating atorvastatin [From Lipitor] AdvReac Nausea & Verified 01/15/24 09:58 Vomiting & Diarrhea,cramps,sweating Beta-Blockers AdvReac Nausea & Verified 01/15/24 09:58 (Beta-Adrenergic Bloc Vomiting & Diarrhea,cramps,sweating gabapentin AdvReac Nausea & Verified 01/15/24 09:58 Vomiting & Diarrhea,cramps,sweating pregabalin AdvReac Nausea & Verified 01/15/24 09:58 Vomiting & Diarrhea [id number]-TAH-ZgU Reductase AdvReac Nausea & Verified 01/15/24 09:58 Inhibitor Vomiting & Diarrhea,cramps,sweating warfarin AdvReac Nausea & Verified 01/15/24 09:58 Vomiting & Diarrhea,cramps,sweating Review of Systems ROS Statement: Those systems with pertinent positive or pertinent negative responses have been documented in the HPI. ROS Other: All systems not noted in ROS Statement are negative. Constitutional: Denies: fever, chills Eyes: Denies: eye pain ENT: Denies: ear pain Respiratory: Denies: cough, dyspnea Cardiovascular: Denies: chest pain Endocrine: Denies: fatigue Gastrointestinal: Reports: as per HPI, abdominal pain, nausea, vomiting, diarrhea Genitourinary: Denies: dysuria Musculoskeletal: Denies: back pain Past Medical History Past Medical History: Atrial Fibrillation, Coronary Artery Disease (CAD), Chest Pain / Angina, COPD, Deep Vein Thrombosis (DVT), GERD/Reflux, GI Bleed, Hyperlipidemia, Hypertension, Myocardial Infarction ([place]), Musculoskeletal Disorder, Osteoarthritis (OA), Pneumonia, Renal Disease, Syncope, Thyroid Disorder Additional Past Medical History / Comment(s): Paroxysmal afib, hx of fall with fx stenum/ribs, episodes of acute renal failure associated with dehydration, past melana stools, diverticulitis, IBS, return of hiatal hernia, bronchitis, hypothyroid, chronic low back pain with bilateral sciatica, lumbar DDD, past migraines, DJD, numbness/tingling bilateral legs/feet, 4 DVTs L leg surgically removed. ,covid + July 2021, hx of hematemesis with recent egd- erosions. Last Myocardial Infarction Date:: 10/15/21 History of Any Multi-Drug Resistant Organisms: None Reported Past Surgical History: Back Surgery, Cholecystectomy, Heart Catheterization, Heart Catheterization With Stent, Hernia Repair, Orthopedic Surgery Additional Past Surgical History / Comment(s): Back fusions L3-L5, ORIF L ankle, L hand fracture with surgery, R knee arthroscopy x2, R elbow tendon release, R shoulder arthroscopy, L shoulder arthroscopy, lumbar spine cyst removed, pain clinic procedures, taylor fundoplication, EGD, colonoscopy, 2019 arteriogram/thr ombus extraction at [facility]. PTCA w/ 3 stents now. rt knee replacemnt, right quad repair Past Anesthesia/Blood Transfusion Reactions: No Reported Reaction Date of Last Stent Placement:: 10/15/21 Past Psychological History: No Psychological Hx Reported Smoking Status: Former smoker Past Alcohol Use History: Heavy, Occasional Past Drug Use History: Marijuana - Past Family History Mother Family Medical History: No Reported History, Thyroid Disorder Additional Family Medical History / Comment(s): . Father Family Medical History: Coronary Artery Disease (CAD), Diabetes Mellitus Additional Family Medical History / Comment(s): Father had CABG. He at the age of 84 yrs in a MVA. Sister(s) Family Medical History: Cancer Additional Family Medical History / Comment(s): Sister #1 skin cancer, sister #2 thyroid cancer. General Exam Limitations: no limitations General appearance: alert Head exam: Present: normocephalic Eye exam: Present: normal appearance, PERRL, EOMI ENT exam: Present: normal oropharynx Neck exam: Present: normal inspection. Absent: tenderness, meningismus Respiratory exam: Present: normal lung sounds bilaterally Cardiovascular Exam: Present: regular rate, normal rhythm Expanded Peripheral pulses: 2+: Dorsalis Pedis (R), Dorsalis Pedis (L) GI/Abdominal exam: Present: soft, tenderness (Mild tenderness lower abdomen), normal bowel sounds. Absent: distended, guarding, rebound, rigid, pulsatile mass Extremities exam: Present: normal inspection Neurological exam: Present: alert, oriented X3, CN II-XII intact. Absent: motor sensory deficit Expanded Neurological exam: Present: protecting the airway Speech: Present: fluid speech Cranial nerves: EOM's Intact: Normal Motor strength exam: RUE: 5, LUE: 5, RLE: 5, LLE: 5 Eye Response: (4) open spontaneously Motor Response: (6) obeys commands Verbal Response: (5) oriented Psychiatric exam: Present: normal affect, normal mood Skin exam: Present: normal color Course Vital Signs 01/15/24 01/15/24 09:56 13:12 Temperature 98.3 F Pulse Rate 96 78 Respiratory 20 18 Rate Blood Pressure 131/92 117/85 O2 Sat by Pulse 99 95 Oximetry Medical Decision Making - Medical Decision Making Was pt. sent in by a medical professional or institution (, PA, BRICK UNLOADER TENDER, urgent care, hospital, or detention...) When possible be specific @ -No Did you speak to anyone other than the patient for history (EMS, parent, family, police, friend...)? What history was obtained from this source @ -No Did you review nursing and triage notes (agree or disagree)? Why? @ -I reviewed and agree with nursing and triage notes Were old charts reviewed (outside hosp., previous admission, EMS record, old EKG, old radiological studies, urgent care reports/EKG's, detention records)? Report findings @ -No old charts were reviewed Differential Diagnosis (chest pain, altered mental status, abdominal pain women, abdominal pain men, vaginal bleeding, weakness, fever, dyspnea, syncope, headache, dizziness, GI bleed, back pain, seizure, CVA, palpatations, mental health, musculoskeletal)? @ -Differential Abdominal Pain Men: Appendicitis, cholecystitis, diverticulosis, ischemic bowel, pancreatitis, hepatitis, UTI, gastroenteritis, AAA, incarcerated hernia, bowel obstruction, constipation, inflammatory bowel, hepatitis, peptic ulcer disease, splenic infarction, perforated viscus, testicular torsion, this is not meant to be an all-inclusive list EKG interpreted by me (3pts min.). @ -As above X-rays interpreted by me (1pt min.). @ -None done CT interpreted by me (1pt min.). @ -CT scan abdomen pelvis shows diverticulitis U/S interpreted by me (1pt. min.). @ -None done What testing was considered but not performed or refused? (CT, X-rays, U/S, labs)? Why? @ -None What meds were considered but not given or refused? Why? @ -None Did you discuss the management of the patient with other professionals (abigial dee i.e. , PA, BRICK UNLOADER TENDER, lab, RT, psych nurse, social professionals, machine hamper maker, teacher, mortgage loan officer originator, social work case manager)? Give summary @ -No Was smoking cessation discussed for >3mins.? @ -No Was critical care preformed (if so, how long)? @ -No Were there social determinants of health that impacted care today? How? (Homelessness, low income, unemployed, alcoholism, drug addiction, transportation, low edu. Level, literacy, decrease access to med. care, fpc, rehab)? @ -No Was there de-escalation of care discussed even if they declined (Discuss DNR or withdrawal of care, Hospice)? DNR status @ -No What co-morbidities impacted this encounter? (DM, HTN, Smoking, COPD, CAD, Cancer, CVA, ARF, Chemo, Hep., AIDS, mental health diagnosis, sleep apnea, morbid obesity)? @ -None Was patient admitted / discharged? Hospital course, mention meds given and route, prescriptions, significant lab abnormalities, going to OR and other pertinent info. @ -Patient presents with nausea vomiting and abdominal discomfort with some diarrhea. CT scan concerning for diverticulitis. Patient reevaluated and still has some discomfort however is requesting discharge home. Patient is updated on results and plan and need for follow-up. Undiagnosed new problem with uncertain prognosis? @ -No Drug Therapy requiring intensive monitoring for toxicity (Heparin, Nitro, Insulin, Cardizem)? @ -No Were any procedures done? @ -No Diagnosis/symptom? @ -Diverticulitis Acute, or Chronic, or Acute on Chronic? @ -Acute Uncomplicated (without systemic symptoms) or Complicated (systemic symptoms)? @ -Default Side effects of treatment? @ -No Exacerbation, Progression, or Severe Exacerbation? @ -No Poses a threat to life or bodily function? How? (Chest pain, [place], [place], pneumonia, PE, COPD, DKA, ARF, appy, cholecystitis, CVA, Diverticulitis, Homicidal, Suicidal, threat to staff... and all critical care pts) @ -Threat to bowel function - Lab Data Result diagrams: 01/15/24 10:45 01/15/24 10:45 Lab Results 01/15/24 01/15/24 01/15/24 Range/Units 10:45 10:45 10:45 WBC 12.6 H (3.8-10.6) k/uL RBC 4.87 (4.30-5.90) m/uL Hgb 15.0 (13.0-17.5) gm/dL Hct 43.5 (39.0-53.0) % MCV 89.4 (80.0-100.0) fL MCH 30.9 (25.0-35.0) pg MCHC 34.6 (31.0-37.0) g/dL RDW 13.0 (11.5-15.5) % Plt Count 200 (150-450) k/uL MPV 7.8 Neutrophils % 79 % Lymphocytes % 13 % Monocytes % 5 % Eosinophils % 2 % Basophils % 0 % Neutrophils # 9.9 H (1.3-7.7) k/uL Lymphocytes # 1.6 (1.0-4.8) k/uL Monocytes # 0.7 (0-1.0) k/uL Eosinophils # 0.2 (0-0.7) k/uL Basophils # 0.0 (0-0.2) k/uL PT 11.0 (10.0-12.5) sec INR 1.0 (<1.2) APTT 23.9 (22.0-30.0) sec Sodium 135 L (137-145) mmol/L Potassium 4.1 (3.5-5.1) mmol/L Chloride 110 H (98-107) mmol/L Carbon Dioxide 17 L (22-30) mmol/L Anion Gap 8 mmol/L BUN 12 (9-20) mg/dL Creatinine 0.80 (0.66-1.25) mg/dL Est GFR (CKD-EPI)AfAm >90 (>60 ml/min/1.73 sqM) Est GFR (CKD-EPI)NonAf >90 (>60 ml/min/1.73 sqM) Glucose 130 H (74-99) mg/dL Calcium 9.3 (8.4-10.2) mg/dL Total Bilirubin 1.8 H (0.2-1.3) mg/dL AST 22 (17-59) U/L ALT 18 (4-49) U/L Alkaline Phosphatase 87 (38-126) U/L Total Protein 6.7 (6.3-8.2) g/dL Albumin 4.4 (3.5-5.0) g/dL Amylase 36 (30-110) U/L Lipase 43 (23-300) U/L Urine Color Urine Appearance (Clear) Urine pH (5.0-8.0) Ur Specific [place] (1.001-1.035) Urine Protein (Negative) Urine Glucose (UA) (Negative) Urine Ketones (Negative) Urine Blood (Negative) Urine Nitrite (Negative) Urine Bilirubin (Negative) Urine Urobilinogen (<2.0) mg/dL Ur Leukocyte Esterase (Negative) 01/15/24 Range/Units 11:54 WBC (3.8-10.6) k/uL RBC (4.30-5.90) m/uL Hgb (13.0-17.5) gm/dL Hct (39.0-53.0) % MCV (80.0-100.0) fL MCH (25.0-35.0) pg MCHC (31.0-37.0) g/dL RDW (11.5-15.5) % Plt Count (150-450) k/uL MPV Neutrophils % % Lymphocytes % % Monocytes % % Eosinophils % % Basophils % % Neutrophils # (1.3-7.7) k/uL Lymphocytes # (1.0-4.8) k/uL Monocytes # (0-1.0) k/uL Eosinophils # (0-0.7) k/uL Basophils # (0-0.2) k/uL PT (10.0-12.5) sec INR (<1.2) APTT (22.0-30.0) sec Sodium (137-145) mmol/L Potassium (3.5-5.1) mmol/L Chloride (98-107) mmol/L Carbon Dioxide (22-30) mmol/L Anion Gap mmol/L BUN (9-20) mg/dL Creatinine (0.66-1.25) mg/dL Est GFR (CKD-EPI)AfAm (>60 ml/min/1.73 sqM) Est GFR (CKD-EPI)NonAf (>60 ml/min/1.73 sqM) Glucose (74-99) mg/dL Calcium (8.4-10.2) mg/dL Total Bilirubin (0.2-1.3) mg/dL AST (17-59) U/L ALT (4-49) U/L Alkaline Phosphatase (38-126) U/L Total Protein (6.3-8.2) g/dL Albumin (3.5-5.0) g/dL Amylase (30-110) U/L Lipase (23-300) U/L Urine Color Yellow Urine Appearance Clear (Clear) Urine pH 7.0 (5.0-8.0) Ur Specific [place] >1.050 H (1.001-1.035) Urine Protein Trace H (Negative) Urine Glucose (UA) Negative (Negative) Urine Ketones Negative (Negative) Urine Blood Negative (Negative) Urine Nitrite Negative (Negative) Urine Bilirubin Negative (Negative) Urine Urobilinogen 4.0 (<2.0) mg/dL Ur Leukocyte Esterase Negative (Negative) Disposition Clinical Impression: Diverticulitis Disposition: HOME SELF-CARE Condition: Stable Instructions (If sedation given, give patient instructions): Diverticulitis (ED) Additional Instructions: Please follow-up with primary care physician beginning the week. Prescription sent to pharmacy. Return for fevers, increased vomiting, increased pain, worsening or changing symptoms or any other concerns. Prescriptions: Amoxic-Pot Clav 875-125Mg [Augmentin 875-125] 1 tab PO BID #28 tab Is patient prescribed a controlled substance at d/c from ED?: No Referrals: Sammie Mercedes MD [Primary Care Provider] - 1-2 days Time of Disposition: 14:21
[2024-01-15] MEDS: ONDANSETRON 4 MG/2 ML VIAL IVP STA (11:00)
[2024-01-15] MEDS: HYDROmorphone 1 MG/ML 1 ML SYRINGE IVP STA ×2 (11:00→14:14)
[2024-01-15] MEDS: FAMOTIDINE 20 MG/2 ML VIAL IV STA (11:00)
[2024-01-15] MEDS: SODIUM CHLORIDE 0.9% 1,000 ML IV STA (11:01)
[2024-01-15 11:02] LABS: Basophils % (A) 0 %; Eosinophils # (A) 0.2 k/uL (0-0.7); Eosinophils % (A) 2 %; HCT 43.5 % (39.0-53.0); Lymphocytes # (A) 1.6 k/uL (1.0-4.8); Lymphocytes % (A) 13 %; MCH 30.9 pg (25.0-35.0); MCHC 34.6 g/dL (31.0-37.0); MCV 89.4 fL (80.0-100.0); Mean Platelet Volume 7.8; Monocytes # (A) 0.7 k/uL (0-1.0); Monocytes % (A) 5 %; Neutrophils # (A) 9.9 k/uL (1.3-7.7); Neutrophils % (A) 79 %; Platelet Count 200 k/uL (150-450); RBC 4.87 m/uL (4.30-5.90); WBC 12.6 k/uL (3.8-10.6)
[2024-01-15 11:13] LABS: Partial Thromboplastin Time 23.9 sec (22.0-30.0)
[2024-01-15 11:15] LABS: ALT 18 U/L (4-49); AST 22 U/L (17-59); African American GFR (CKD) >90 (>60 ml/min/1.73 sqM); Albumin 4.4 g/dL (3.5-5.0); Alkaline Phosphatase 87 U/L (38-126); Amylase 36 U/L (30-110); Anion Gap 8 mmol/L; Blood Urea Nitrogen 12 mg/dL (9-20); Calcium 9.3 mg/dL (8.4-10.2); Carbon Dioxide 17 mmol/L (22-30); Chloride 110 mmol/L (98-107); Glucose 130 mg/dL (74-99); Lipase 43 U/L (23-300); Non-African American GFR(CKD) >90 (>60 ml/min/1.73 sqM); Potassium 4.1 mmol/L (3.5-5.1); Sodium 135 mmol/L (137-145); Total Bilirubin 1.8 mg/dL (0.2-1.3); Total Protein 6.7 g/dL (6.3-8.2)
--- NOTE | 2024-01-15 11:52 | CT ---
EXAMINATION TYPE: CT abdomen pelvis w con DATE OF EXAM: 01/15/2024 COMPARISON: 07/12/2022 CLINICAL INDICATION: Male, 68 years old with history of abdominal pain; PHH, Abdominal pain, hx diver ticulitis TECHNIQUE: Performed without Oral Contrast and with IV Contrast, patient injected with 100 mL of Isovue 300. CT DLP: 1564.[address] CTDI: mGy Automated exposure control for dose reduction was used. FINDINGS: The lung bases are clear. There is a [id number]-[id number] hiatal hernia. There is surgical absence of the gallbladder. There is a stable 3.6 cm hepatic cyst. There is no foca l abnormality of the spleen, pancreas or adrenal glands is no organomegaly. There is no biliary ducta l dilatation. There is no solid renal mass or hydronephrosis and there is homogeneous contrast enhancement of the r enal parenchyma. The caliber the abdominal aorta is normal is no retroperitoneal adenopathy or hemorr nicole. There are inflammatory changes involving the bowel wall and pericolic fat in the proximal sigmoid col on consistent with acute diverticulitis. There is no bowel obstruction, abdominal or pelvic abscess. There is no free intraperitoneal air or fluid. No pelvic mass, free fluid, abscess or adenopathy. The osseous structures and soft tissues are intact. IMPRESSION: 1. Acute diverticulitis of the proximal sigmoid colon without bowel obstruction, abscess, free intrap eritoneal air or fluid. 2. Issue-rj-zsjafbwx hiatal hernia. [facility], , 01/15/2024 11:49 AM
[2024-01-15 12:13] LABS: Appearance,Urine Clear (Clear); Bilirubin,Urine Negative (Negative); Blood,Urine Negative (Negative); Color,Urine Yellow; Glucose,Urine (UA) Negative (Negative); Ketones,Urine Negative (Negative); Leukocyte Esterase,Urine Negative (Negative); Nitrite,Urine Negative (Negative); Protein,Urine Trace (Negative)
[2024-01-15 12:14] LABS: Specific Gravity,Urine >1.050 (1.001-1.035)
[2024-01-15 13:13] VITALS: RESP 18
[2024-01-15] MEDS ORDERED: HYDROmorphone 1 MG/ML 1 ML SYRINGE IVP STA (13:23)
[2024-01-15] MEDS ORDERED: ACET/COD 300 MG/30 MG STARTER PACK 6 TAB BTL PO STA (14:23)
[2024-01-15] MEDS: AMOXIC-POT CLAV 875MG STARTER PACK 2 TAB BTL PO STA (14:45)
[2024-01-15] MEDS: ACET/COD 300 MG/30 MG STARTER PACK 6 TAB BTL PO STA (14:46)
[2024-01-15 14:53] VITALS: BP 150/99; PULSE 92; TEMP 97.7
== END 2024-01-15 14:53 | disposition home or self-care (01) ==
LOC: EC 09:45
DX: K57.32 Diverticulitis of large intestine without perforation or abscess without bleeding (principal); Z88.8 Allergy status to other drugs, medicaments and biological substances; Z87.891 Personal history of nicotine dependence; Z86.16 Personal history of COVID-19; Z90.49 Acquired absence of other specified parts of digestive tract
CPT/HCPCS: 36415; 80053; 82150; 83690; 85025; 85610; 85730; 81003; 74177; 99284; 96374; 96375 ×2; 96376; 96361 ×2; J2405; J3490; J1171; Q9967

== ENCOUNTER 2024-01-20 18:05 | Emergency (ER) | payer MEDICARE ==
[2024-01-20] MEDS: ONDANSETRON 4 MG/2 ML VIAL IVP STA (19:20)
[2024-01-20] MEDS: HYDROmorphone 0.5 MG/0.5 ML SYRINGE IVP STA (19:22)
[2024-01-20] MEDS: SODIUM CHLORIDE 0.9% 1,000 ML IV STA (19:24)
[2024-01-20 19:32] LABS: Basophils % (A) 0 %; Eosinophils # (A) 0.2 k/uL (0-0.7); Eosinophils % (A) 3 %; HCT 43.9 % (39.0-53.0); Lymphocytes # (A) 2.1 k/uL (1.0-4.8); Lymphocytes % (A) 25 %; MCH 30.5 pg (25.0-35.0); MCHC 34.3 g/dL (31.0-37.0); MCV 89.1 fL (80.0-100.0); Monocytes # (A) 0.6 k/uL (0-1.0); Monocytes % (A) 7 %; Neutrophils # (A) 5.3 k/uL (1.3-7.7); Neutrophils % (A) 62 %; Platelet Count 223 k/uL (150-450); RBC 4.92 m/uL (4.30-5.90); RDW 12.8 % (11.5-15.5); WBC 8.5 k/uL (3.8-10.6)
[2024-01-20 19:41] LABS: ALT 25 U/L (4-49); AST 30 U/L (17-59); African American GFR (CKD) >90 (>60 ml/min/1.73 sqM); Albumin 4.4 g/dL (3.5-5.0); Alkaline Phosphatase 86 U/L (38-126); Amylase 46 U/L (30-110); Anion Gap 10 mmol/L; Blood Urea Nitrogen 11 mg/dL (9-20); Calcium 9.5 mg/dL (8.4-10.2); Carbon Dioxide 17 mmol/L (22-30); Chloride 109 mmol/L (98-107); Glucose 92 mg/dL (74-99); Lipase 68 U/L (23-300); Non-African American GFR(CKD) 79 (>60 ml/min/1.73 sqM); Potassium 4.4 mmol/L (3.5-5.1); Sodium 136 mmol/L (137-145); Total Protein 6.8 g/dL (6.3-8.2)
--- NOTE | 2024-01-20 19:50 | CT ---
EXAMINATION TYPE: CT abdomen pelvis wo con DATE OF EXAM: 01/20/2024 7:22 PM COMPARISON: CT abdomen pelvis most recent from CLINICAL INDICATION: Male, 68 years old with history of Abdominal pain left lower quadrant; LLQ abdom inal pain. TECHNIQUE: Axial CT abdomen pelvis wo con;Sagittal and coronal reformats were created on a separate workstation. Contrast used: mL of , (none if empty) Oral contrast used: without Oral Contrast (none if empty) CT DLP: 1030.2 mGycm, Automated exposure control for dose reduction was used. FINDINGS: LOWER CHEST: The heart is enlarged for size. ABDOMEN LIVER: Simple appearing right hepatic lobe cyst. GALLBLADDER AND BILE DUCTS: The gallbladder is surgically absent. PANCREAS: Unremarkable. SPLEEN: Unremarkable. ADRENAL GLANDS: Unremarkable. KIDNEYS AND URETERS: No evidence of hydronephrosis or renal calculus. The ureters are unremarkable. PELVIS BLADDER: No evidence for wall thickening or mass given limitations of exam. REPRODUCTIVE: Unremarkable. ABDOMEN & PELVIS STOMACH AND BOWEL: There are colonic diverticula present, one of which has adjacent fat stranding migue nges. No organizing fluid collection or evidence of pneumoperitoneum. Epiphrenic diverticulum. No kai dence of bowel obstruction. Appendix is normal. PERITONEUM/RETROPERITONEUM: No evidence of pneumoperitoneum or free fluid. VASCULATURE: Moderate atherosclerotic calcifications are present throughout the abdominal aorta and i ts branches. No evidence of aortic aneurysm. MUSCULOSKELETAL: No acute osseous abnormalities. Moderate disc degeneration changes are present throu ghout the thoracolumbar spine. Abnormality to the femoral heads with subchondral sclerosis. No signif icant collapse of the femoral head. Fixation hardware in the spine at L4 3 L4 and L5 appears intact. Mild degeneration changes of the hips with osteophyte formation and joint space tearing. LYMPH NODES: No gross evidence for lymphadenopathy. SOFT TISSUE/ABDOMINAL WALL: Unremarkable IMPRESSION: 1. Acute uncomplicated sigmoid diverticulitis. 2. Phrenic esophageal diverticulum. 3. Right hepatic lobe simple appearing cyst. 4. Bilateral avascular necrosis of the femoral heads. No evidence for subchondral collapse at this t lenin. [facility], , 01/20/2024 7:48 PM
--- NOTE | 2024-01-20 20:54 | ED ---
General Adult HPI - General Chief complaint: Abdominal Pain Stated complaint: Abdominal Pain Time Seen by Provider: 01/20/24 18:30 Source: patient, RN notes reviewed, old records reviewed Mode of arrival: wheelchair Limitations: no limitations - History of Present Illness Initial comments: 68-year-old male who presents to the emergency department complaining of lower abdominal cramping. Patient states has been nauseous and vomited 3 times prior to arrival. Patient states about 5 days ago he was diagnosed with acute diverticulitis and sent home on antibiotics. Patient states she has had no diarrhea. Patient denies any fever chills or cough. Patient denies any back pain. Patient denies any dysuria hematuria urinary frequency - Related Data Home Medications Medication Instructions Recorded Confirmed Levothyroxine Sodium [Synthroid] 75 mcg PO DAILY 05/04/16 01/20/24 Clopidogrel [Plavix] 75 mg PO DAILY 09/24/22 01/20/24 DULoxetine HCL [Cymbalta] 30 mg PO HS 11/28/23 01/20/24 Amoxic-Pot Clav 875-125Mg 1 tab PO Q12HR 01/20/24 01/20/24 [Augmentin 875-125] Previous Rx's Medication Instructions Recorded Aspirin 81 mg PO DAILY #30 tab 10/17/21 Pantoprazole [Protonix] 40 mg PO AC-BID #60 tab 10/22/21 cloNIDine HCL [Catapres] 0.1 mg PO BID tab 10/22/21 Allergies Allergy/AdvReac Type Severity Reaction Status Date / Time rivaroxaban [From Xarelto] AdvReac Severe Nausea & Verified 01/20/24 20:14 Vomiting & Diarrhea,cramps,sweating paroxetine HCl [From Paxil] AdvReac Unknown Nausea & Verified 01/20/24 20:14 Vomiting & Diarrhea,cramps,sweating apixaban [From Eliquis] AdvReac Nausea & Verified 01/20/24 20:14 Vomiting & Diarrhea,cramps,sweating atorvastatin [From Lipitor] AdvReac Nausea & Verified 01/20/24 20:14 Vomiting & Diarrhea,cramps,sweating Beta-Blockers AdvReac Nausea & Verified 01/20/24 20:14 (Beta-Adrenergic Bloc Vomiting & Diarrhea,cramps,sweating gabapentin AdvReac Nausea & Verified 01/20/24 20:14 Vomiting & Diarrhea,cramps,sweating pregabalin AdvReac Nausea & Verified 01/20/24 20:14 Vomiting & Diarrhea Puzgohw-AUL-JzF Reductase AdvReac Nausea & Verified 01/20/24 20:14 Inhibitor Vomiting & Diarrhea,cramps,sweating warfarin AdvReac Nausea & Verified 01/20/24 20:14 Vomiting & Diarrhea,cramps,sweating Review of Systems ROS Statement: Those systems with pertinent positive or pertinent negative responses have been documented in the HPI. ROS Other: All systems not noted in ROS Statement are negative. Past Medical History Past Medical History: Atrial Fibrillation, Coronary Artery Disease (CAD), Chest Pain / Angina, COPD, Deep Vein Thrombosis (DVT), GERD/Reflux, GI Bleed, Hyperlipidemia, Hypertension, Myocardial Infarction (AK), Musculoskeletal Disorder, Osteoarthritis (OA), Pneumonia, Renal Disease, Syncope, Thyroid Disorder Additional Past Medical History / Comment(s): Paroxysmal afib, hx of fall with fx stenum/ribs, episodes of acute renal failure associated with dehydration, past melana stools, diverticulitis, IBS, return of hiatal hernia, bronchitis, hypothyroid, chronic low back pain with bilateral sciatica, lumbar DDD, past migraines, DJD, numbness/tingling bilateral legs/feet, 4 DVTs L leg surgically removed. ,covid + July 2021, hx of hematemesis with recent egd- erosions. Last Myocardial Infarction Date:: 10/15/21 History of Any Multi-Drug Resistant Organisms: None Reported Past Surgical History: Back Surgery, Cholecystectomy, Heart Catheterization, Heart Catheterization With Stent, Hernia Repair, Orthopedic Surgery Additional Past Surgical History / Comment(s): Back fusions L3-L5, ORIF L ankle, L hand fracture with surgery, R knee arthroscopy x2, R elbow tendon release, R shoulder arthroscopy, L shoulder arthroscopy, lumbar spine cyst removed, pain clinic procedures, taylor fundoplication, EGD, colonoscopy, 2019 arteriogram/thrombus extraction at [facility]. PTCA w/ 3 stents now. rt knee replacemnt, right quad repair Past Anesthesia/Blood Transfusion Reactions: No Reported Reaction Date of Last Stent Placement:: 10/15/21 Past Psychological History: No Psychological Hx Reported Smoking Status: Former smoker Past Alcohol Use History: Heavy, Occasional Past Drug Use History: Marijuana - Past Family History Mother Family Medical History: No Reported History, Thyroid Disorder Additional Family Medical History / Comment(s): . Father Family Medical History: Coronary Artery Disease (CAD), Diabetes Mellitus Additional Family Medical History / Comment(s): Father had CABG. He at the age of 84 yrs in a MVA. Sister(s) Family Medical History: Cancer Additional Family Medical History / Comment(s): Sister #1 skin cancer, sister #2 thyroid cancer. General Exam - General Exam Comments Initial Comments: GENERAL: Patient is well-developed and well-nourished. Patient is nontoxic and well- hydrated and is in mild distress. ENT: Neck is soft and supple. No significant lymphadenopathy is noted. Oropharynx is clear. Moist mucous membranes. Neck has full range of motion without den citing any pain. EYES: The sclera were anicteric and conjunctiva were pink and moist. Extraocular movements were intact and pupils were equal round and reactive to light. Eyelids were unremarkable. PULMONARY: Unlabored respirations. Good breath sounds bilaterally. No audible rales rhonchi or wheezing was noted. CARDIOVASCULAR: There is a regular rate and rhythm without any murmurs gallops or rubs. ABDOMEN: Soft and nontender with normal bowel sounds. No point tenderness SKIN: Skin is clear with no lesions or rashes and otherwise unremarkable. NEUROLOGIC: Patient is alert and oriented x3. Cranial nerves II through XII are grossly intact. Motor and sensory are also intact. Normal speech, volume and content. Symmetrical smile. MUSCULOSKELETAL: Normal extremities with adequate strength and full range of motion. No lower extremity swelling or edema. No calf tenderness. LYMPHATICS: No significant lymphadenopathy is noted PSYCHIATRIC: Normal psychiatric evaluation. Limitations: no limitations Course Vital Signs 01/20/24 01/20/24 18:17 20:00 Temperature 99.1 F Pulse Rate 93 69 Respiratory 28 H 17 Rate Blood Pressure 187/111 134/76 O2 Sat by Pulse 99 Oximetry Medical Decision Making - Medical Decision Making Was pt. sent in by a medical professional or institution (, [facility], [employer]ING [employer]ACH[employer], urgent care, hospital, or shelter...) When possible be specific @ -No Did you speak to anyone other than the patient for history (EMS, parent, family, police, friend...)? What history was obtained from this source @ -No Did you review nursing and triage notes (agree or disagree)? Why? @ -I reviewed and agree with nursing and triage notes Were old charts reviewed (outside hosp., previous admission, EMS record, old EKG, old radiological studies, urgent care reports/EKG's, shelter records)? Report findings @ -No old charts were reviewed Differential Diagnosis? @ -Differential abdominal pain man EKG interpreted by me (3pts min.). @ -As above X-rays interpreted by me (1pt min.). @ -None done CT interpreted by me (1pt min.). @ -Acute diverticulosis without any surrounding abscess U/S interpreted by me (1pt. min.). @ -None done What testing was considered but not performed or refused? (CT, X-rays, U/S, labs)? Why? @ -None What meds were considered but not given or refused? Why? @ -None Did you discuss the management of the patient with other professionals (professionals i.e. DrTeresa, PA, ROPING MACHINE TENDER, lab, RT, psych nurse, social worker health services, dental scheduling coordinator, teacher, aviation ordnance officer, leather case finisher)? Give summary @ -No Was smoking cessation discussed for >3mins.? @ -No Was critical care preformed (if so, how long)? @ -No Were there social determinants of health that impacted care today? How? (Homelessness, low income, unemployed, alcoholism, drug addiction, transportation, low edu. Level, literacy, decrease access to med. care, care home, rehab)? @ -No Was there de-escalation of care discussed even if they declined (Discuss DNR or withdrawal of care, Hospice)? DNR status @ -No What co-morbidities impacted this encounter? (DM, HTN, Smoking, COPD, CAD, Cancer, CVA, ARF, Chemo, Hep., AIDS, mental health diagnosis, sleep apnea, morbid obesity)? @ -None Was patient admitted / discharged? Hospital course, mention meds given and route, prescriptions, significant lab abnormalities, going to OR and other pertinent info. @ -Patient received Zofran in the emergency department well as some IV fluids. Patient was reevaluated by myself after results came back. Patient was feeling considerably better and will be discharged home to continue his antibiotic regime Undiagnosed new problem with uncertain prognosis? @ -No Drug Therapy requiring intensive monitoring for toxicity (Heparin, Nitro, Insulin, Cardizem)? @ -No Were any procedures done? @ -No Diagnosis/symptom? @ -Acute diverticulitis Acute, or Chronic, or Acute on Chronic? @ -Acute Uncomplicated (without systemic symptoms) or Complicated (systemic symptoms)? @ -Complicated Side effects of treatment? @ -No Exacerbation, Progression, or Severe Exacerbation? @ -No Poses a threat to life or bodily function? How? (Chest pain, [place], AK, pneumonia, PE, COPD, DKA, ARF, appy, cholecystitis, CVA, Diverticulitis, Homicidal, Suicidal, threat to staff... and all critical care pts) @ -No - Lab Data Result diagrams: 01/20/24 19:04 01/20/24 19:04 Lab Results 01/20/24 01/20/24 01/20/24 Range/Units 19:04 19:04 19:04 WBC 8.5 (3.8-10.6) k/uL RBC 4.92 (4.30-5.90) m/uL Hgb 15.0 (13.0-17.5) gm/dL Hct 43.9 (39.0-53.0) % MCV 89.1 (80.0-100.0) fL MCH 30.5 (25.0-35.0) pg MCHC 34.3 (31.0-37.0) g/dL RDW 12.8 (11.5-15.5) % Plt Count 223 (150-450) k/uL MPV 8.0 Neutrophils % 62 % Lymphocytes % 25 % Monocytes % 7 % Eosinophils % 3 % Basophils % 0 % Neutrophils # 5.3 (1.3-7.7) k/uL Lymphocytes # 2.1 (1.0-4.8) k/uL Monocytes # 0.6 (0-1.0) k/uL Eosinophils # 0.2 (0-0.7) k/uL Basophils # 0.0 (0-0.2) k/uL Sodium 136 L (137-145) mmol/L Potassium 4.4 (3.5-5.1) mmol/L Chloride 109 H (98-107) mmol/L Carbon Dioxide 17 L (22-30) mmol/L Anion Gap 10 mmol/L BUN 11 (9-20) mg/dL Creatinine 0.98 (0.66-1.25) mg/dL Est GFR (CKD-EPI)AfAm >90 (>60 ml/min/1.73 sqM) Est GFR (CKD-EPI)NonAf 79 (>60 ml/min/1.73 sqM) Glucose 92 (74-99) mg/dL Plasma Lactic Acid Chac[place] 1.6 (0.7-2.0) mmol/L Calcium 9.5 (8.4-10.2) mg/dL Total Bilirubin 1.0 (0.2-1.3) mg/dL AST 30 (17-59) U/L ALT 25 (4-49) U/L Alkaline Phosphatase 86 (38-126) U/L Total Protein 6.8 (6.3-8.2) g/dL Albumin 4.4 (3.5-5.0) g/dL Amylase 46 (30-110) U/L Lipase 68 (23-300) U/L Disposition Clinical Impression: Acute diverticulitis Disposition: HOME SELF-CARE Condition: Good Instructions (If sedation given, give patient instructions): Diverticulitis (ED) Is patient prescribed a controlled substance at d/c from ED?: No Referrals: Sammie Mercedes MD [Primary Care Provider] - 1-2 days Time of Disposition: 20:54
[2024-01-20 21:16] VITALS: BP 146/88; PULSE 71; RESP 18; TEMP 98.1
== END 2024-01-20 21:21 | disposition home or self-care (01) ==
LOC: EC 18:05
DX: K57.32 Diverticulitis of large intestine without perforation or abscess without bleeding (principal); K57.90 Diverticulosis of intestine, part unspecified, without perforation or abscess without bleeding; Z87.891 Personal history of nicotine dependence; Z86.16 Personal history of COVID-19; Z88.8 Allergy status to other drugs, medicaments and biological substances
CPT/HCPCS: 36415; 80053; 82150; 83605; 83690; 85025; 74176; 99284; 96374; 96375; 96361; J2405; J1171

== ENCOUNTER 2024-01-26 13:05 | Observation (INO) | payer MEDICARE ==
--- NOTE | 2024-01-26 14:04 | ED ---
Abdominal Pain HPI - General Source: patient, RN notes reviewed, old records reviewed Mode of arrival: ambulatory Limitations: no limitations <Diana Wilkerson - Last Filed: 01/26/24 16:01> - General Source: patient, RN notes reviewed, old records reviewed Mode of arrival: ambulatory Limitations: no limitations - History of Present Illness Onset/Timin -: days(s) Location: LLQ Radiation: none Migration to: no migration Severity scale (1-10): 10 Quality: cramping Improves With: nothing Worsens With: nothing Associated Symptoms: nausea, diarrhea <Hermes Kaiser - Last Filed: 01/27/24 03:59> - General Chief Complaint: Abdominal Pain Stated Complaint: Abdominal Pain Time Seen by Provider: 01/26/24 14:02 - History of Present Illness Initial Comments: 68-year-old male presenting to the ER for evaluation of abdominal pain. Patient was seen here on 01-15-2024 and again on 01-20-2024 for similar complaint. He was diagnosed with diverticulitis and started on Augmentin. Patient reports he had an increase in pain on 01-20-2024 for which he was seen again here. Patient presents today for uncontrolled abdominal pain. He has not tried any oral medications. He has tried sitting in a bath. He admits to diarrhea and nausea. No known fevers. No other complaints. (Diana Wilkerson) This is a 68-year-old male with history of CAD, AMI, DVT, COPD and renal dysfunction presenting with ongoing left lower quadrant pain x 12 days. Patient endorses being seen in this ER on 01/15/2024 and 01/20/2024 for recurring diverticulitis, not resolving following previous prescription of p.o. Augmentin nearly 1 week ago. Patient describes pain as cramping (10/10) with associated nausea and diarrhea. Patient states all attempts to relieve pain have been unsuccessful. Denies fever, chills, dizziness, chest pain, dyspnea, vomiting, hematochezia, melena. (Hermes Kaiser) - Related Data Home Medications Medication Instructions Recorded Confirmed Levothyroxine Sodium [Synthroid] 75 mcg PO DAILY 05/04/16 01/20/24 Clopidogrel [Plavix] 75 mg PO DAILY 09/24/22 01/20/24 DULoxetine HCL [Cymbalta] 30 mg PO HS 11/28/23 01/20/24 Amoxic-Pot Clav 875-125Mg 1 tab PO Q12HR 01/20/24 01/20/24 [Augmentin 875-125] Previous Rx's Medication Instructions Recorded Aspirin 81 mg PO DAILY #30 tab 10/17/21 Pantoprazole [Protonix] 40 mg PO AC-BID #60 tab 10/22/21 cloNIDine HCL [Catapres] 0.1 mg PO BID tab 10/22/21 Allergies Allergy/AdvReac Type Severity Reaction Status Date / Time rivaroxaban [From Xarelto] AdvReac Severe Nausea & Verified 01/20/24 20:14 Vomiting & Diarrhea,cramps,sweating paroxetine HCl [From Paxil] AdvReac Unknown Nausea & Verified 01/20/24 20:14 Vomiting & Diarrhea,cramps,sweating apixaban [From Eliquis] AdvReac Nausea & Verified 01/20/24 20:14 Vomiting & Diarrhea,cramps,sweating atorvastatin [From Lipitor] AdvReac Nausea & Verified 01/20/24 20:14 Vomiting & Diarrhea,cramps,sweating Beta-Blockers AdvReac Nausea & Verified 01/20/24 20:14 (Beta-Adrenergic Bloc Vomiting & Diarrhea,cramps,sweating gabapentin AdvReac Nausea & Verified 01/20/24 20:14 Vomiting & Diarrhea,cramps,sweating pregabalin AdvReac Nausea & Verified 01/20/24 20:14 Vomiting & Diarrhea Jmvljit-[id number]-GgP Reductase AdvReac Nausea & Verified 01/20/24 20:14 Inhibitor Vomiting & Diarrhea,cramps,sweating warfarin AdvReac Nausea & Verified 01/20/24 20:14 Vomiting & Diarrhea,cramps,sweating Review of Systems ROS Other: All systems not noted in ROS Statement are negative. <Diana Wilkerson - Last Filed: 01/26/24 16:01> ROS Other: All systems not noted in ROS Statement are negative. <Hermes Kaiser - Last Filed: 01/27/24 03:59> ROS Statement: Those systems with pertinent positive or pertinent negative responses have been documented in the HPI. Past Medical History Past Medical History: Atrial Fibrillation, Coronary Artery Disease (CAD), Chest Pain / Angina, COPD, Deep Vein Thrombosis (DVT), GERD/Reflux, GI Bleed, Hyperlipidemia, Hypertension, Myocardial Infarction (DC), Musculoskeletal D isorder, Osteoarthritis (OA), Pneumonia, Renal Disease, Syncope, Thyroid Disorder Additional Past Medical History / Comment(s): Paroxysmal afib, hx of fall with fx stenum/ribs, episodes of acute renal failure associated with dehydration, past melana stools, diverticulitis, IBS, return of hiatal hernia, bronchitis, hypothyroid, chronic low back pain with bilateral sciatica, lumbar DDD, past migraines, DJD, numbness/tingling bilateral legs/feet, 4 DVTs L leg surgically removed. ,covid + July 2021, hx of hematemesis with recent egd- erosions. Last Myocardial Infarction Date:: 10/15/21 History of Any Multi-Drug Resistant Organisms: None Reported Past Surgical History: Back Surgery, Cholecystectomy, Heart Catheterization, Heart Catheterization With Stent, Hernia Repair, Orthopedic Surgery Additional Past Surgical History / Comment(s): Back fusions L3-L5, ORIF L ankle, L hand fracture with surgery, R knee arthroscopy x2, R elbow tendon release, R shoulder arthroscopy, L shoulder arthroscopy, lumbar spine cyst removed, pain clinic procedures, taylor fundoplication, EGD, colonoscopy, 2019 arteriogram/thrombus extraction at [facility]. PTCA w/ 3 stents now. rt knee replacemnt, right quad repair Past Anesthesia/Blood Transfusion Reactions: No Reported Reaction Date of Last Stent Placement:: 10/15/21 Past Psychological History: No Psychological Hx Reported Smoking Status: Former smoker Past Alcohol Use History: Heavy, Occasional Past Drug Use History: Marijuana - Past Family History Mother Family Medical History: No Reported History, Thyroid Disorder Additional Family Medical History / Comment(s): . Father Family Medical History: Coronary Artery Disease (CAD), Diabetes Mellitus Additional Family Medical History / Comment(s): Father had CABG. He at the age of 84 yrs in a MVA. Sister(s) Family Medical History: Cancer Additional Family Medical History / Comment(s): Sister #1 skin cancer, sister #2 thyroid cancer. <Diana Wilkerson - Last Filed: 01/26/24 16:01> General Exam Limitations: no limitations General appearance: alert, in no apparent distress Respiratory exam: Present: normal lung sounds bilaterally. Absent: respiratory distress, wheezes, rales, rhonchi, stridor Cardiovascular Exam: Present: regular rate, normal rhythm, normal heart sounds. Absent: systolic murmur, diastolic murmur, rubs, gallop, clicks GI/Abdominal exam: Present: soft, tenderness (RLQ/LLQ), normal bowel sounds Neurological exam: Present: alert, oriented X3, CN II-XII intact Skin exam: Present: warm, dry, intact, normal color. Absent: rash <Diana Wilkerson - Last Filed: 01/26/24 16:01> Limitations: no limitations General appearance: alert, in no apparent distress Head exam: Present: atraumatic, normocephalic, normal inspection Eye exam: Present: normal appearance, PERRL, EOMI. Absent: scleral icterus, conjunctival injection, periorbital swelling ENT exam: Present: normal exam, mucous membranes moist Neck exam: Present: normal inspection. Absent: tenderness, meningismus, lymphadenopathy Respiratory exam: Present: normal lung sounds bilaterally. Absent: respiratory distress, wheezes, rales, rhonchi, stridor Cardiovascular Exam: Present: regular rate, normal rhythm, normal heart sounds. Absent: systolic murmur, diastolic murmur, rubs, gallop, clicks GI/Abdominal exam: Present: soft, tenderness, normal bowel sounds. Absent: distended, guarding, rebound, rigid Extremities exam: Present: normal inspection, full ROM, normal capillary refill. Absent: tenderness, pedal edema, joint swelling, calf tenderness Back exam: Present: normal inspection Neurological exam: Present: alert, oriented X3, CN II-XII intact Psychiatric exam: Present: normal affect, normal mood Skin exam: Present: warm, dry, intact, normal color. Absent: rash <Hermes Kaiser - Last Filed: 01/27/24 03:59> Course Vital Signs 01/26/24 01/26/24 01/26/24 13:28 19:03 23:21 Temperature 97.3 F L 98.6 F Pulse Rate 95 86 72 Respiratory 16 18 19 Rate Blood Pressure 152/102 145/89 148/84 O2 Sat by Pulse 99 95 97 Oximetry Medical Decision Making <Diana Wilkerson - Last Filed: 01/26/24 16:01> - Lab Data Result diagrams: 01/26/24 15:53 01/26/24 15:53 <Hermes Kaiser - Last Filed: 01/27/24 03:59> - Medical Decision Making Was pt. sent in by a medical professional or institution ([employer]ur, EMPLOYEE SERVICES MANAGER, urgent care, hospital, or senior care...) When possible be specific @ -No Did you speak to anyone other than the patient for history (EMS, parent, family, police, friend...)? What history was obtained from this source @ -No Did you review nursing and triage notes (agree or disagree)? Why? @ -I reviewed and agree with nursing and triage notes Were old charts reviewed (outside hosp., previous admission, EMS record, old E KG, old radiological studies, urgent care reports/EKG's, senior care records)? Report findings @ -Patient seen here on 01-15-2024 and diagnosed with diverticulitis. Patient was started on Augmentin. Patient seen here again on 01-20-2024 for pain control. Differential Diagnosis (chest pain, altered mental status, abdominal pain women, abdominal pain men, vaginal bleeding, weakness, fever, dyspnea, syncope, headache, dizziness, GI bleed, back pain, seizure, CVA, palpatations, mental health, musculoskeletal)? @ -Differential Abdominal Pain Men:Appendicitis, cholecystitis, diverticulosis, ischemic bowel, pancreatitis, hepatitis, UTI, gastroenteritis, AAA, incarcerated hernia, bowel obstruction, constipation, inflammatory bowel, hepatitis, peptic ulcer disease, splenic infarction, perforated viscus, testicular torsion, this is not meant to be an all-inclusive list EKG interpreted by me (3pts min.). @ -None done X-rays interpreted by me (1pt min.). @ -None done CT interpreted by me (1pt min.). @ -Pending U/S interpreted by me (1pt. min.). @ -None done What testing was considered but not performed or refused? (CT, X-rays, U/S, labs)? Why? @ -None What meds were considered but not given or refused? Why? @ -None Did you discuss the management of the patient with other professionals (professionals i.e. [employer] Mathur, EMPLOYEE SERVICES MANAGER, lab, RT, psych nurse, psychiatric social worker supervisor, motor transport inspector, teacher, antisubmarine weapons officer, behavioral health case manager)? Give summary @ -No Was smoking cessation discussed for >3mins.? @ -No Was critical care preformed (if so, how long)? @ -No Were there social determinants of health that impacted care today? How? (Homelessness, low income, unemployed, alcoholism, drug addiction, transportat ion, low edu. Level, literacy, decrease access to med. care, correction, rehab)? @ -No Was there de-escalation of care discussed even if they declined (Discuss DNR or withdrawal of care, Hospice)? DNR status @ -No What co-morbidities impacted this encounter? (DM, HTN, Smoking, COPD, CAD, Cancer, CVA, ARF, Chemo, Hep., AIDS, mental health diagnosis, sleep apnea, morbid obesity)? @ -History of diverticulitis Was patient admitted / discharged? Hospital course, mention meds given and route, prescriptions, significant lab abnormalities, going to OR and other pertinent info. @ -68-year-old male presented to the ER for evaluation of abdominal pain. Patient recently diagnosed with diverticulitis and started on Augmentin. History and physical exam completed. Vitals within normal limits. Patient is tender to the right and left lower quadrants. No rebound or guarding. Laboratory studies and CT scan ordered and pending at time of sign out. Patient signed out to Genevieve Martines PA-C pending laboratory results and disposition. (Diana Wilkerson) Was pt. sent in by a medical professional or institution ([employer]ur, EMPLOYEE SERVICES MANAGER, urgent care, hospital, or senior care...) When possible be specific @ -No Did you speak to anyone other than the patient for history (EMS, parent, family, police, friend...)? What history was obtained from this source @ -No Did you review nursing and triage notes (agree or disagree)? Why? @ -I reviewed and agree with nursing and triage notes Were old charts reviewed (outside hosp., previous admission, EMS record, old EKG, old radiological studies, urgent care reports/EKG's, senior care records)? Report findings @ -CT imaging from previous visit reviewed. Differential Diagnosis (chest pain, altered mental status, abdominal pain women, abdominal pain men, vaginal bleeding, weakness, fever, dyspnea, syncope, headache, dizziness, GI bleed, back pain, seizure, CVA, palpatations, mental health, musculoskeletal)? @ -Differential Abdominal Pain Men: Appendicitis, cholecystitis, diverticulosis, ischemic bowel, pancreatitis, hepatitis, UTI, gastroenteritis, AAA, incarcerated hernia, bowel obstruction, constipation, inflammatory bowel, hepatitis, peptic ulcer disease, splenic infarction, perforated viscus, testicular torsion, this is not meant to be an all-inclusive list EKG interpreted by me (3pts min.). @ -Not done X-rays interpreted by me (1pt min.). @ -None done CT interpreted by me (1pt min.). @ -Abdominal/pelvic CT shows no changes compared to last week's abdominal CT with ongoing uncomplicated sigmoid diverticulitis without abscess or perforation. U/S interpreted by me (1pt. min.). @ -None done What testing was considered but not performed or refused? (CT, X-rays, U/S, labs)? Why? @ -None What meds were considered but not given or refused? Why? @ -None Did you discuss the management of the patient with other professionals (professionals i.e. , PA, EMPLOYEE SERVICES MANAGER, lab, RT, psych nurse, psychiatric social worker supervisor, motor transport inspector, teacher, antisubmarine weapons officer, behavioral health case manager)? Give summary @ -Spoke to Dr. Mercedes who agreed to patient admission. Was smoking cessation discussed for >3mins.? @ -No Was critical care preformed (if so, how long)? @ -No Were there social determinants of health that impacted care today? How? (Homelessness, low income, unemployed, alcoholism, drug addiction, transportation, low edu. Level, literacy, decrease access to med. care, correction, rehab)? @ -No Was there de-escalation of care discussed even if they declined (Discuss DNR or withdrawal of care, Hospice)? DNR status @ -No What co-morbidities impacted this encounter? (DM, HTN, Smoking, COPD, CAD, Cancer, CVA, ARF, Chemo, Hep., AIDS, mental health diagnosis, sleep apnea, morbid obesity)? @ -Renal dysfunction Was patient admitted / discharged? Hospital course, mention meds given and route, prescriptions, significant lab abnormalities, going to OR and other pertinent info. @ -Lab work shows minor leukocytosis (12.6) and elevated BUN/creatinine. UA negative for UTI. Abdominal/pelvic CT shows no changes compared to last week's abdominal CT with ongoing uncomplicated sigmoid diverticulitis without abscess or perforation. Given IV normal saline, Zofran, Toradol and Dilaudid. Patient notes pain relief following Dilaudid administration. IV Zosyn given following discovery of ongoing diverticulitis and patient admitted, after speaking to Dr. Mercedes, due to intractable abdominal pain and unresolving diverticulitis. Undiagnosed new problem with uncertain prognosis? @ -No Drug Therapy requiring intensive monitoring for toxicity (Heparin, Nitro, Insulin, Cardizem)? @ -No Were any procedures done? @ -No Diagnosis/symptom? @ -Intractable diverticulitis Acute, or Chronic, or Acute on Chronic? @ -Acute Uncomplicated (without systemic symptoms) or Complicated (systemic symptoms)? @ -Complicated Side effects of treatment? @ -No Exacerbation, Progression, or Severe Exacerbation? @ -No Poses a threat to life or bodily function? How? (Chest pain, USA, DC, pneumonia, PE, COPD, DKA, ARF, appy, cholecystitis, CVA, Diverticulitis, Homicidal, Suicidal, threat to staff... and all critical care pts) @ -Diverticulitis (Hermes Kaiser) - Lab Data Lab Results 01/26/24 01/26/24 01/26/24 Range/Units 15:53 15:53 15:53 WBC 12.6 H (3.8-10.6) k/uL RBC 5.65 (4.30-5.90) m/uL Hgb 17.7 H (13.0-17.5) gm/dL Hct 50.7 (39.0-53.0) % MCV 89.8 (80.0-100.0) fL MCH 31.4 (25.0-35.0) pg MCHC 34.9 (31.0-37.0) g/dL RDW 12.8 (11.5-15.5) % Plt Count 289 (150-450) k/uL MPV 7.9 Neutrophils % 72 % Lymphocytes % 19 % Monocytes % 5 % Eosinophils % 2 % Basophils % 1 % Neutrophils # 9.1 H (1.3-7.7) k/uL Lymphocytes # 2.4 (1.0-4.8) k/uL Monocytes # 0.6 (0-1.0) k/uL Eosinophils # 0.3 (0-0.7) k/uL Basophils # 0.1 (0-0.2) k/uL Sodium 138 (137-145) mmol/L Potassium 4.8 (3.5-5.1) mmol/L Chloride 107 (98-107) mmol/L Carbon Dioxide 16 L (22-30) mmol/L Anion Gap 15 mmol/L BUN 24 H (9-20) mg/dL Creatinine 1.28 H (0.66-1.25) mg/dL Est GFR (CKD-EPI)AfAm 66 (>60 ml/min/1.73 sqM) Est GFR (CKD-EPI)NonAf 57 (>60 ml/min/1.73 sqM) Glucose 104 H (74-99) mg/dL Plasma Lactic Acid Chacorta 1.8 (0.7-2.0) mmol/L Calcium 10.8 H (8.4-10.2) mg/dL Total Bilirubin 1.3 (0.2-1.3) mg/dL AST 39 (17-59) U/L ALT 33 (4-49) U/L Alkaline Phosphatase 104 (38-126) U/L Total Protein 8.5 H (6.3-8.2) g/dL Albumin 5.4 H (3.5-5.0) g/dL Urine Color Urine Appearance (Clear) Urine pH (5.0-8.0) Ur Specific [place] (1.001-1.035) Urine Protein (Negative) Urine Glucose (UA) (Negative) Urine Ketones (Negative) Urine Blood (Negative) Urine Nitrite (Negative) Urine Bilirubin (Negative) Urine Urobilinogen (<2.0) mg/dL Ur Leukocyte Esterase (Negative) Urine RBC (0-5) /hpf Urine WBC (0-5) /hpf Ur Squamous Epith Cells (0-4) /hpf Urine Mucus (None) /hpf 01/26/24 Range/Units 18:11 WBC (3.8-10.6) k/uL RBC (4.30-5.90) m/uL Hgb (13.0-17.5) gm/dL Hct (39.0-53.0) % MCV (80.0-100.0) fL MCH (25.0-35.0) pg MCHC (31.0-37.0) g/dL RDW (11.5-15.5) % Plt Count (150-450) k/uL MPV Neutrophils % % Lymphocytes % % Monocytes % % Eosinophils % % Basophils % % Neutrophils # (1.3-7.7) k/uL Lymphocytes # (1.0-4.8) k/uL Monocytes # (0-1.0) k/uL Eosinophils # (0-0.7) k/uL Basophils # (0-0.2) k/uL Sodium (137-145) mmol/L Potassium (3.5-5.1) mmol/L Chloride (98-107) mmol/L Carbon Dioxide (22-30) mmol/L Anion Gap mmol/L BUN (9-20) mg/dL Creatinine (0.66-1.25) mg/dL Est GFR (CKD-EPI)AfAm (>60 ml/min/1.73 sqM) Est GFR (CKD-EPI)NonAf (>60 ml/min/1.73 sqM) Glucose (74-99) mg/dL Plasma Lactic Acid [place] (0.7-2.0) mmol/L Calcium (8.4-10.2) mg/dL Total Bilirubin (0.2-1.3) mg/dL AST (17-59) U/L ALT (4-49) U/L Alkaline Phosphatase (38-126) U/L Total Protein (6.3-8.2) g/dL Albumin (3.5-5.0) g/dL Urine Color Dark Brown Urine Appearance Cloudy (Clear) Urine pH 5.5 (5.0-8.0) Ur Specific [place] 1.036 H (1.001-1.035) Urine Protein 2+ H (Negative) Urine Glucose (UA) Trace H (Negative) Urine Ketones Trace H (Negative) Urine Blood Negative (Negative) Urine Nitrite Negative (Negative) Urine Bilirubin 1+ H (Negative) Urine Urobilinogen 3.0 (<2.0) mg/dL Ur Leukocyte Esterase Negative (Negative) Urine RBC 9 H (0-5) /hpf Urine WBC 6 H (0-5) /hpf Ur Squamous Epith Cells 1 (0-4) /hpf Urine Mucus Many H (None) /hpf Disposition <Diana Wilkerson - Last Filed: 01/26/24 16:01> Is patient prescribed a controlled substance at d/c from ED?: No Time of Disposition: 23:45 Decision Date: 01/26/24 Decision Time: 23:45 <Hermes Kaiser - Last Filed: 01/27/24 03:59> Clinical Impression: Diverticulitis of sigmoid colon Disposition: ADMITTED IP TO THIS HOSP Condition: Good
[2024-01-26] MEDS: HYDROmorphone 0.5 MG/0.5 ML SYRINGE IVP STA ×2 (16:00→17:17)
[2024-01-26] MEDS: KETOROLAC 15 MG/ML 1 ML VIAL IVP STA (16:02)
[2024-01-26] MEDS: ONDANSETRON 4 MG/2 ML VIAL IVP STA (16:03)
[2024-01-26] MEDS: SODIUM CHLORIDE 0.9% 1,000 ML IV STA (16:07)
[2024-01-26 16:21] LABS: Basophils # (A) 0.1 k/uL (0-0.2); Basophils % (A) 1 %; Eosinophils # (A) 0.3 k/uL (0-0.7); Eosinophils % (A) 2 %; HCT 50.7 % (39.0-53.0); HGB 17.7 gm/dL (13.0-17.5); Lymphocytes # (A) 2.4 k/uL (1.0-4.8); Lymphocytes % (A) 19 %; MCH 31.4 pg (25.0-35.0); MCHC 34.9 g/dL (31.0-37.0); MCV 89.8 fL (80.0-100.0); Mean Platelet Volume 7.9; Monocytes # (A) 0.6 k/uL (0-1.0); Monocytes % (A) 5 %; Neutrophils # (A) 9.1 k/uL (1.3-7.7); Neutrophils % (A) 72 %; Platelet Count 289 k/uL (150-450); RBC 5.65 m/uL (4.30-5.90); RDW 12.8 % (11.5-15.5); WBC 12.6 k/uL (3.8-10.6)
[2024-01-26 16:33] LABS: ALT 33 U/L (4-49); African American GFR (CKD) 66 (>60 ml/min/1.73 sqM); Anion Gap 15 mmol/L; Blood Urea Nitrogen 24 mg/dL (9-20); Calcium 10.8 mg/dL (8.4-10.2); Carbon Dioxide 16 mmol/L (22-30); Chloride 107 mmol/L (98-107); Glucose 104 mg/dL (74-99); Non-African American GFR(CKD) 57 (>60 ml/min/1.73 sqM); Sodium 138 mmol/L (137-145); Total Bilirubin 1.3 mg/dL (0.2-1.3)
[2024-01-26 16:41] LABS: AST 39 U/L (17-59); Albumin 5.4 g/dL (3.5-5.0); Alkaline Phosphatase 104 U/L (38-126); Potassium 4.8 mmol/L (3.5-5.1); Total Protein 8.5 g/dL (6.3-8.2)
[2024-01-26 18:23] LABS: Appearance,Urine Cloudy (Clear); Bilirubin,Urine 1+ (Negative); Blood,Urine Negative (Negative); Color,Urine Dark Brown; Glucose,Urine (UA) Trace (Negative); Ketones,Urine Trace (Negative); Leukocyte Esterase,Urine Negative (Negative); Mucus,Urine Many /hpf; Nitrite,Urine Negative (Negative); PH, Urine 5.5 (5.0-8.0); Protein,Urine 2+ (Negative); RBC,Urine 9 /hpf (0-5); Specific Gravity,Urine 1.036 (1.001-1.035); Squamous Epithelial Cell,Urine 1 /hpf (0-4); WBC,Urine 6 /hpf (0-5)
--- NOTE | 2024-01-26 20:50 | CT ---
INDICATION: Patient age:Male; 68 years old; Reason for study: LLQ abd pain; PHH. COMPARISON: CT abdomen/pelvis 01/20/2024. TECHNIQUE: Standard CT of the abdomen and pelvis following the administration of 80 cc of Isovue 30 0 IV contrast material. Coronal and sagittal reformats were performed. One or more CT dose reduction strategies were utilized during this examination. Total DLP administered was 1463.2 mGycm. FINDINGS: LOWER CHEST: Unremarkable ABDOMEN LIVER: Redemonstrated right hepatic cyst.. GALLBLADDER AND BILE DUCTS: The gallbladder is surgically absent. PANCREAS: Atrophic. SPLEEN: Splenule is noted. ADRENAL GLANDS: Unremarkable. KIDNEYS AND URETERS: No evidence of hydronephrosis or renal calculus. The ureters are unremarkable. PELVIS URINARY BLADDER: Incompletely distended but grossly unremarkable. REPRODUCTIVE: No pelvic masses. ABDOMEN & PELVIS STOMACH AND BOWEL: Small hiatal hernia. Small bowel is of normal caliber. Redemonstrated sigmoid colo buck diverticula with associated surrounding fat stranding. No pneumatosis. No pericolonic fluid colle ctions. No evidence of bowel obstruction. PERITONEUM: No evidence of pneumoperitoneum or free fluid. 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 Post surgical changes of the lumbar spine. No acute osseous abnormality LYMPH NODES: Unremarkable. SOFT TISSUE/ABDOMINAL WALL: Unremarkable IMPRESSION: No significant changes in the findings when compared to the CT for a few days prior. Similar uncompli cated sigmoid diverticulitis. [facility], , 01/26/2024 8:47 PM
[2024-01-26] MEDS: HYDROmorphone 1 MG/ML 1 ML SYRINGE IVP STA (21:14)
[2024-01-26] MEDS: PIPERACILLIN-TAZOBACTAM 3.375 GM in SODIUM CHLORIDE 0.9% 100 ML IVPB STA (21:25)
[2024-01-26] MEDS ORDERED: NALOXONE 0.4 MG/ML 1 ML VIAL IV PRN (23:18)
[2024-01-26] MEDS: SODIUM CHLORIDE 0.9% 1,000 ML IV SCH (23:41)
[2024-01-27] MEDS: HYDROmorphone 0.5 MG/0.5 ML SYRINGE IVP PRN (00:21)
[2024-01-27] MEDS: HYDROmorphone 1 MG/ML 1 ML SYRINGE IVP PRN (03:08)
[2024-01-27] MEDS: PIPERACILLIN-TAZOBACTAM 3.375 GM in SODIUM CHLORIDE 0.9% 100 ML IVPB SCH (05:17)
[2024-01-27] MEDS ORDERED: DICYCLOMINE 20 MG TAB PO PRN (06:49)
[2024-01-27] MEDS: LEVOTHYROXINE 75 MCG TAB PO SCH (07:04)
[2024-01-27] MEDS: PANTOPRAZOLE 40 MG TABLET PO SCH (07:04)
[2024-01-27] MEDS: ASPIRIN 81 MG PO SCH (08:00)
[2024-01-27] MEDS: cloNIDine HCL 0.1 MG TAB PO SCH (08:00)
[2024-01-27] MEDS: CLOPIDOGREL 75 MG TAB PO SCH (08:00)
--- NOTE | 2024-01-27 11:59 | P.CONS ---
History of Present Illness - Reason for Consult Consult date: 01/27/24 Intractable abdominal pain, diverticulitis Requesting physician: Hermes Kaiser - Chief Complaint Abdominal pain - History of Present Illness This is a pleasant 68-year-old male well-known to gastroenterology for IBS and abdominal pain who has had a history of previous diverticulitis presenting to the hospital with complaints of intractable abdominal pain. He is been seen in the emergency department on 01/15/2024 as well as 01/20/[address] scans at that time showing uncomplicated dictated diverticulitis. He was discharged with oral Augmentin and states he has been taking it but he has not had any improvement in his abdominal pain. Past medical history includes coronary artery disease DVT, COPD, chronic kidney disorder and he is takes aspirin and Plavix. He had a repeat CT of the abdomen and pelvis again showing uncomplicated diverticulitis. He is currently on Zosyn. He has been afebrile. No nausea or vomiting. Denies any blood in his stool. Does have some loose stools. WBC 12.6 hemoglobin 17.7 hematocrit 50 platelet count 289,000 sodium 138 po tassium 4.8 BUN 24 creatinine 1.2 total bilirubin 1.3 AST 39 ALT 33 alkaline phosphatase 104 Review of Systems REVIEW OF SYSTEMS: CARDIOPULMONARY: No chest pain or shortness of breath. Gastrointestinal: Abdominal pain, mostly in the lower abdomen. No nausea or vomiting. No hematemesis, coffee-ground emesis. No rectal bleeding, or melena. GENITOURINARY: No dysuria or hematuria. MUSCULOSKELETAL: Reports normal range of motion. SKIN: No rashes. No jaundice. ENDOCRINE: No chills, fevers. No excessive weight gain or loss. No polydipsia or polyuria. PSYCHIATRIC: Unremarkable. NEUROLOGY: No change in mental status. Denies dizziness, headache. ENT: Vision unremarkable. CONSTITUTIONAL: No recent weight loss. No fever, chills, night sweats. Past Medical History Past Medical History: Atrial Fibrillation, Coronary Artery Disease (CAD), Chest Pain / Angina, COPD, Deep Vein Thrombosis (DVT), GERD/Reflux, GI Bleed, Hype rlipidemia, Hypertension, Myocardial Infarction ([place]), Musculoskeletal Disorder, Osteoarthritis (OA), Pneumonia, Renal Disease, Syncope, Thyroid Disorder Additional Past Medical History / Comment(s): Paroxysmal afib, hx of fall with fx stenum/ribs, episodes of acute renal failure associated with dehydration, past melana stools, diverticulitis, IBS, return of hiatal hernia, bronchitis, hypothyroid, chronic low back pain with bilateral sciatica, lumbar DDD, past migraines, DJD, numbness/tingling bilateral legs/feet, 4 DVTs L leg surgically removed. ,covid + July 2021, hx of hematemesis with recent egd- erosions. Last Myocardial Infarction Date:: 10/15/21 History of Any Multi-Drug Resistant Organisms: None Reported Past Surgical History: Back Surgery, Cholecystectomy, Heart Catheterization, Heart Catheterization With Stent, Hernia Repair, Orthopedic Surgery Additional Past Surgical History / Comment(s): Back fusions L3-L5, ORIF L ankle, L hand fracture with surgery, R knee arthroscopy x2, R elbow tendon release, R shoulder arthroscopy, L shoulder arthroscopy, lumbar spine cyst removed, pain clinic procedures, taylor fundoplication, EGD, colonoscopy, 2019 arteriog jose/thrombus extraction at [facility]. PTCA w/ 3 stents now. rt knee replacemnt, right quad repair Past Anesthesia/Blood Transfusion Reactions: No Reported Reaction Date of Last Stent Placement:: 10/15/21 Past Psychological History: No Psychological Hx Reported Smoking Status: Former smoker Past Alcohol Use History: Heavy, Occasional Past Drug Use History: Marijuana - Past Family History Mother Family Medical History: No Reported History, Thyroid Disorder Additional Family Medical History / Comment(s): . Father Family Medical History: Coronary Artery Disease (CAD), Diabetes Mellitus Additional Family Medical History / Comment(s): Father had CABG. He at the age of 84 yrs in a MVA. Sister(s) Family Medical History: Cancer Additional Family Medical History / Comment(s): Sister #1 skin cancer, sister #2 thyroid cancer. Medications and Allergies Home Medications Medication Instructions Recorded Confirmed Type Levothyroxine Sodium [Synthroid] 75 mcg PO DAILY 05/04/16 01/27/24 History Aspirin 81 mg PO DAILY #30 tab 10/17/21 01/27/24 Rx Pantoprazole [Protonix] 40 mg PO AC-BID #60 tab 10/22/21 01/27/24 Rx cloNIDine HCL [Catapres] 0.1 mg PO BID tab 10/22/21 01/27/24 Rx Clopidogrel [Plavix] 75 mg PO DAILY 09/24/22 01/27/24 History DULoxetine HCL [Cymbalta] 30 mg PO HS 11/28/23 01/27/24 History Amoxic-Pot Clav 875-125Mg 1 tab PO Q12HR 01/20/24 01/27/24 History [Augmentin 875-125] Allergies Allergy/AdvReac Type Severity Reaction Status Date / Time rivaroxaban [From Xarelto] AdvReac Severe Nausea & Verified 01/27/24 11:26 Vomiting & Diarrhea,cramps,sweating paroxetine HCl [From Paxil] AdvReac Unknown Nausea & Verified 01/27/24 11:26 Vomiting & Diarrhea,cramps,sweating apixaban [From Eliquis] AdvReac Nausea & Verified 01/27/24 11:26 Vomiting & Diarrhea,cramps,sweating atorvastatin [From Lipitor] AdvReac Nausea & Verified 01/27/24 11:26 Vomiting & Diarrhea,cramps,sweating Beta-Blockers AdvReac Nausea & Verified 01/27/24 11:26 (Beta-Adrenergic Bloc Vomiting & Diarrhea,cramps,sweating gabapentin AdvReac Nausea & Verified 01/27/24 11:26 Vomiting & Diarrhea,cramps,sweating pregabalin AdvReac Nausea & Verified 01/27/24 11:26 Vomiting & Diarrhea Taktnbe-SSZ-KfQ Reductase AdvReac Nausea & Verified 01/27/24 11:26 Inhibitor Vomiting & Diarrhea,cramps,sweating warfarin AdvReac Nausea & Verified 01/27/24 11:26 Vomiting & Diarrhea,cramps,sweating Physical Exam Vitals: Vital Signs Temp Pulse Resp BP Pulse Ox 01/27/24 05:00 81 16 140/76 98 01/26/24 23:21 98.6 F 72 19 148/84 97 01/26/24 19:03 86 18 145/89 95 01/26/24 13:28 97.3 F L 95 16 152/102 99 Intake and Output 01/26/24 01/26/24 01/27/24 14:59 22:59 06:59 Other: Weight 102.058 kg General appearance: The patient is alert, oriented, appears in no acute distress. HET: Head is normocephalic and atraumatic. Conjunctiva pink. Sclera anicteric. Neck: Supple without lymphadenopathy. Trachea midline. Heart: Regular. Lungs: Equal expansion, normal respiratory effort. Abdomen: Soft, mild left lower quadrant tenderness, nondistended. Skin: No rashes. No jaundice. Extremities: Normal skin color and turgor. No pedal edema. Neurological: No focal deficits. Alert and oriented x3. Results CBC & Chem 7: 01/26/24 15:53 01/26/24 15:53 Labs: Abnormal Lab Results - Last 24 Hours (Table) 01/26/24 01/26/24 01/26/24 Range/Units 15:53 15:53 18:11 WBC 12.6 H (3.8-10.6) k/uL Hgb 17.7 H (13.0-17.5) gm/dL Neutrophils # 9.1 H (1.3-7.7) k/uL Carbon Dioxide 16 L (22-30) mmol/L BUN 24 H (9-20) mg/dL Creatinine 1.28 H (0.66-1.25) mg/dL Glucose 104 H (74-99) mg/dL Calcium 10.8 H (8.4-10.2) mg/dL Total Protein 8.5 H (6.3-8.2) g/dL Albumin 5.4 H (3.5-5.0) g/dL Ur Specific [place] 1.036 H (1.001-1.035) Urine Protein 2+ H (Negative) Urine Glucose (UA) Trace H (Negative) Urine Ketones Trace H (Negative) Urine Bilirubin 1+ H (Negative) Urine RBC 9 H (0-5) /hpf Urine WBC 6 H (0-5) /hpf Urine Mucus Many H (None) /hpf Comments: CT abdomen pelvis reports no significant changes in the findings when compared to the CT for a few days prior. Similar uncomplicated sigmoid diverticulitis. Assessment and Plan (1) Diverticulitis of sigmoid colon Narrative/Plan: 68-year-old male with history of IBS and chronic intermittent abdominal pain as well as previous history of diverticulitis presents back to the hospital for abdominal pain despite being on outpatient Augmentin. Patient now admitted for IV antibiotics and pain medication. No further workup indicated. Continue with IV antibiotics until pain improves and then patient may be discharged home. Will add Bentyl as needed. Last EGD and colonoscopy October 2022. Upper endoscopy every field mild antral gastritis and irregular GE junction but no evidence of esophagitis or Romero's esophagus. Colonoscopy revealed cecal polyp and ascending colon polyp status post polypectomy and scattered sigmoid diverticulosis. Current Visit: Yes Status: Acute Code(s): K57.32 - DVTRCLI OF LG INT W/O PERFORATION OR ABSCESS W/O BLEEDING SNOMED Code(s): 495233551 (2) Abdominal pain Current Visit: No Status: Acute Code(s): R10.9 - UNSPECIFIED ABDOMINAL PAIN SNOMED Code(s): 51109053 Plan: 1. Continue symptomatic and supportive care 2. Pain medication as needed 3. Continue IV antibiotics 4. Will order Bentyl as needed 5. If pain continues would recommend downgrading diet 6. No plans on endoscopic evaluation. No further workup from gastroenterology. Increased pain likely secondary to IBS Thank you for this consultation, there will be no further GI coverage. Once patient's abdominal pain is improved he may be discharged. Recommend continuing oral antibiotics as an outpatient Dr. Carmela Patrick I agree with the dictator's note, documented as a scribe by Brii Yodre.
--- NOTE | 2024-01-27 17:33 | P.HPIM ---
History of Present Illness H&P Date: 01/27/24 Chief Complaint: Abdominal pain/acute diverticulitis HISTORY OF PRESENT ILLNESS: This is a 68-year-old male with a previous medical history significant for hypertension and hypertensive cardiovascular disease, hyperlipidemia, chronic obstructive pulmonary disease, CAD, hypothyroidism, osteoarthritis status post right total knee arthroplasty, GERD with esophagitis, major depressive disorder and anxiety disorder, history of quad tendon tear treated at [facility] for repair with and had intraparenchymal bleed that was resolved patient was recently seen in the emergency department at [facility] January 14 and January 19 he was diagnosed with acute diverticulitis, he was placed on oral antibiotic in the form of amoxicillin/clavulanate 875 mg orally twice every day for 7 days, and patient was supposed to come to see me in the office yesterday but instead he ended up coming to the emergency department because of intractable abdominal pain associated with nausea but no vomiting but significant diarrhea, patient was evaluated in the emergency department, had leukocytosis mild and he did not have any other abnormalities, he still have few more days of oral antibiotic, but the patient is not doing better, therefore he was admitted to the hospital for evaluation by gastroenterology, he was placed on IV fluid resuscitation, and he was started on Zosyn 3.375 g piggyback every 8 hours, GI consultation was obtained from Dr. Patrick REVIEW OF SYSTEMS: Constitutional: No documented fever, no chills, no night sweats. No weight ch dari. positive for weakness, fatigue no lethargy. No daytime sleepiness. HEENT: No headache. No blurred vision or double vision, no loss of vision. No loss of Hearing, no ringing in the ears, no dizziness. No nasal drainage or congestion. No epistaxis. No sore throat. Lungs: No shortness of breath, no cough, no sputum production. No wheezing. Reports dyspnea with activity. Cardiovascular: No chest pain, no lower extremity edema. No palpitations. No paroxysmal nocturnal dyspnea. No orthopnea. No lightheadedness or dizziness. No syncopal episodes. Abdominal: Reports abdominal pain. positive for nausea, positive for vomiting. Reports diarrhea last bowel movement was yesterday. No constipation. No bloody or tarry stools reports loss of appetite. Genitourinary: No dysuria, increased frequency, urgency. No urinary retention. Musculoskeletal: No myalgias. positive for muscle weakness and leg cramps , no gait dysfunction, no frequent falls. Positive for back pain. No neck pain. Integumentary: No wounds, no lesions. No rash or pruritus. No unusual bruising. No change in hair or nails. Neurologic: No aphasia. No facial droop. No change in mentation. No head injury. No headache. No paralysis. No paresthesia. Psychiatric: positive for depression. No anxiety. No mood swings. Endocrine: No abnormal blood sugars. No weight change. PAST MEDICAL HISTORY: Hypertension and hypertensive cardiovascular disease. Hyperlipidemia. Abdominal aortic thrombus COPD. CAD of [place] artery. Hypothyroidism. Osteoarthritis. GERD with esophagitis. Chronic low back pain status post PE LDF of L3 L5. PAST SURGICAL HISTORY: Left heart catheterization with PCI of the LCx 10/16/2021 Right knee arthroscopic surgery. Right total knee arthroplasty March 2022. P LDF L3 L5 with Tarlov cyst 1999 Hiatal hernia repair 1989. Colonoscopy 2019. Laparoscopic cholecystectomy 1989. Right elbow repair. Left heart catheterization with PCI of the proximal OM1 06/18/2019. Left heart catheterization with PCI of the RCA 11/17/2013. Left heart catheterization with PCI of the LAD 07/03/2007. Left tib-fib Fed ORIF. Left hand surgery. Right Qaudriceps tendon repair SOCIAL HISTORY: Patient used to smoke about pack every day at the age of 17 and he quit at the age of 27, he smokes marijuana, he drinks alcohol 1-2 drinks at a time no more than 4 drinks a week, he denies any other drug use or abuse. FAMILY HISTORY: Father at age of 80 from motor vehicle accident and had a history of dementia, mother at age of 87 with hypertension and atrial for relation, patient has one brother okay and had 4 sisters one with thyroid disease one with skin cancer and the other 2 are okay patient has 2 sons alive and well and one daughter alive and well as well. PHYSICAL EXAMINATION: General: 68-year-old male he is laying down in bed in minimal distress.. HEENT: Head is atraumatic, normocephalic, pupils were equal round reactive to light and recommendation, extraocular muscle movement were intact, sclera nonicteric, conjunctivae were pale, mucous membranes of the mouth are somewhat dry. Neck: Supple, no JVP, normal carotid upstroke bilaterally, no lymphadenopathy. Chest: Decreased breath sounds at the bases, few rhonchi, minimal expiratory wheezes, no chest wall tenderness, no intercostal retractions. Heart: First heart sound is normal, second heart sound is normal there is LUIS 2/6 located at the left sternal border. Abdomen: Soft, moderate tenderness to the left lower quadrant and right lower quadrant, nondistended, positive bowel sounds. Extremities: There is no edema no calf tenderness DP +2 bilaterally. Neurologic examination: Patient is awake alert and oriented X 3, cranial nerves II-12 appear grossly intact, muscle power were 5 out of 5 in upper extremities and 5 out of 5 in bilateral lower extremities, deep tendon reflexes normal bilaterally. ASSESSMENT AND PLAN: 1. Acute diverticulitis. Continue patient on IV antibiotic in the form of Zosyn 3.375 g piggyback every 8 hours, obtain stool for C. difficile, stool culture, continue IV fluid resuscitation in the form of normal saline at 100 cc an hour, continue current pain management, continue patient on clear liquid diet, GI consultation with Dr. Patrick 2. Intractable nausea and vomiting likely related to acute diverticulitis. Check stool for C. difficile toxins A and B continue treatment as in the previous paragraph. 3. Acute kidney injury due to acute tubular necrosis. Continue IV fluid resuscitation in the form of normal saline at 100 cc an hour, repeat the patient blood work tomorrow morning including CMP avoid nephrotoxins. 4. Coronary artery disease status post multiple PCI's. Continue Plavix and ASA , continue Repatha 140 mg subcu venously every 2 weeks, monitor lipid panel, keep LDL 5570. 5. Hypertension and hypertensive cardiovascular disease, continue patient on clonidine 0.1 mg orally twice every day, monitor the patient blood pressure very closely. 6. Mixed hyperlipidemia. Patient is intolerant to statins. Continue with Repatha 140 mg subcutaneously every 2 weeks keep LDL less than 50 7. Hypothyroidism. Continue Synthroid 75 g orally once every day. 8. GERD with esophagitis and hiatal hernia. Continue patient on pantoprazole 40 mg oral twice daily. 9. Generalized anxiety disorder and depressive disorder. Continue patient on duloxetine 30 mg orally once every day. 10. DVT prophylaxis. Continue patient on Lovenox 40 mg subcutaneously every 24 hours. 11. GI prophylaxis. Continue pantoprazole 40 mg orally twice every day. 12. Admit to inpatient. Estimated length of stay 2 midnights. 13. Patient is full code. Past Medical History Past Medical History: Atrial Fibrillation, Coronary Artery Disease (CAD), Chest Pain / Angina, COPD, Deep Vein Thrombosis (DVT), GERD/Reflux, GI Bleed, Hyperlipidemia, Hypertension, Myocardial Infarction ([place]), Musculoskeletal Disorder, Osteoarthritis ([place]), Pneumonia, Renal Disease, Syncope, Thyroid Disorder Additional Past Medical History / Comment(s): Paroxysmal afib, hx of fall with fx stenum/ribs, episodes of acute renal failure associated with dehydration, past melana stools, diverticulitis, IBS, return of hiatal hernia, bronchitis, hypothyroid, chronic low back pain with bilateral sciatica, lumbar DDD, past migraines, DJD, numbness/tingling bilateral legs/feet, 4 DVTs L leg surgically removed. ,covid + July 2021, hx of hematemesis with recent egd- erosions. Last Myocardial Infarction Date:: 10/15/21 History of Any Multi-Drug Resistant Organisms: None Reported Past Surgical History: Back Surgery, Cholecystectomy, Heart Catheterization, Heart Catheterization With Stent, Hernia Repair, Orthopedic Surgery Additional Past Surgical History / Comment(s): Back fusions L3-L5, ORIF L ankle, L hand fracture with surgery, R knee arthroscopy x2, R elbow tendon release, R shoulder arthroscopy, L shoulder arthroscopy, lumbar spine cyst removed, pain clinic procedures, taylor fundoplication, EGD, colonoscopy, 2019 arteriogram/thrombus extraction at [facility]. PTCA w/ 3 stents now. rt knee replacemnt, right quad repair Past Anesthesia/Blood Transfusion Reactions: No Reported Reaction Date of Last Stent Placement:: 10/15/21 Smoking Status: Former smoker - Past Family History Mother Family Medical History: No Reported History, Thyroid Disorder Additional Family Medical History / Comment(s): . Father Family Medical History: Coronary Artery Disease (CAD), Diabetes Mellitus Additional Family Medical History / Comment(s): Father had CABG. He at the age of 84 yrs in a MVA. Sister(s) Family Medical History: Cancer Additional Family Medical History / Comment(s): Sister #1 skin cancer, sister #2 thyroid cancer. Medications and Allergies Home Medications Medication Instructions Recorded Confirmed Type Levothyroxine Sodium [Synthroid] 75 mcg PO DAILY 05/04/16 01/27/24 History Aspirin 81 mg PO DAILY #30 tab 10/17/21 01/27/24 Rx Pantoprazole [Protonix] 40 mg PO AC-BID #60 tab 10/22/21 01/27/24 Rx cloNIDine HCL [Catapres] 0.1 mg PO BID tab 10/22/21 01/27/24 Rx Clopidogrel [Plavix] 75 mg PO DAILY 09/24/22 01/27/24 History DULoxetine HCL [Cymbalta] 30 mg PO HS 11/28/23 01/27/24 History Amoxic-Pot Clav 875-125Mg 1 tab PO Q12HR 01/20/24 01/27/24 History [Augmentin 875-125] Allergies Allergy/AdvReac Type Severity Reaction Status Date / Time rivaroxaban [From Xarelto] AdvReac Severe Nausea & Verified 01/27/24 11:26 Vomiting & Diarrhea,cramps,sweating paroxetine HCl [From Paxil] AdvReac Unknown Nausea & Verified 01/27/24 11:26 Vomiting & Diarrhea,cramps,sweating apixaban [From Eliquis] AdvReac Nausea & Verified 01/27/24 11:26 Vomiting & Diarrhea,cramps,sweating atorvastatin [From Lipitor] AdvReac Nausea & Verified 01/27/24 11:26 Vomiting & Diarrhea,cramps,sweating Beta-Blockers AdvReac Nausea & Verified 01/27/24 11:26 (Beta-Adrenergic Bloc Vomiting & Diarrhea,cramps,sweating gabapentin AdvReac Nausea & Verified 01/27/24 11:26 Vomiting & Diarrhea,cramps,sweating pregabalin AdvReac Nausea & Verified 01/27/24 11:26 Vomiting & Diarrhea Jmyflti-MBT-QdD Reductase AdvReac Nausea & Verified 01/27/24 11:26 Inhibitor Vomiting & Diarrhea,cramps,sweating warfarin AdvReac Nausea & Verified 01/27/24 11:26 Vomiting & Diarrhea,cramps,sweating Physical Exam Vitals: Vital Signs Temp Pulse Pulse Resp BP BP Pulse Ox 01/27/24 17:12 97.5 F L 69 17 161/95 98 01/27/24 14:37 97.6 F 75 20 149/96 98 01/27/24 08:00 98 F 78 20 144/86 98 01/27/24 05:00 81 16 140/76 98 01/26/24 23:21 98.6 F 72 19 148/84 97 01/26/24 19:03 86 18 145/89 95 Intake and Output 01/27/24 01/27/24 01/27/24 06:59 14:59 22:59 Intake Total 1600 Balance 1600 Intake: Intake, IV Titration 1000 Amount Piperacillin-Tazobactam 3 100 .375 gm In Sodium Chloride 0.9% 100 ml @ 200 mls/hr IVPB Q8HR CYNDIE Rx#:[id number] Sodium Chloride 0.9% 1, 900 000 ml @ 130 mls/hr IV . [id number] CYNDIE Rx#:[id number] Oral 600 Other: # Voids 3 # Bowel Movements 0 Weight 102.058 kg Results CBC & Chem 7: 01/26/24 15:53 01/26/24 15:53 Labs: Abnormal Lab Results - Last 24 Hours (Table) 01/26/24 Range/Units 18:11 Ur Specific [place] 1.036 H (1.001-1.035) Urine Protein 2+ H (Negative) Urine Glucose (UA) Trace H (Negative) Urine Ketones Trace H (Negative) Urine Bilirubin 1+ H (Negative) Urine RBC 9 H (0-5) /hpf Urine WBC 6 H (0-5) /hpf Urine Mucus Many H (None) /hpf
[2024-01-27] MEDS: DULoxetine HCL 30 MG CAPSULE.DR PO SCH (20:31)
[2024-01-28] MEDS: ENOXAPARIN 40 MG/0.4 ML SYRINGE SQ SCH (08:32)
[2024-01-28 10:43] LABS: Basophils # (A) 0.04 X 10*3/uL (0.00-0.10); Basophils % (A) 0.6 %; Eosinophils # (A) 0.29 X 10*3/uL (0.04-0.35); Eosinophils % (A) 4.1 %; HGB 15.1 g/dL (13.0-17.0); Lymphocytes # (A) 1.79 X 10*3/uL (0.90-5.00); Lymphocytes % (A) 25.2 %; MCH 29.8 pg (27.0-32.0); MCHC 33.6 g/dL (32.0-37.0); MCV 88.8 FL (80.0-97.0); Mean Platelet Volume 11.2 FL (9.5-12.2); Monocytes # (A) 0.61 X 10*3/uL (0.20-1.00); Monocytes % (A) 8.6 %; NRBC Per 100 WBC 0 X 10*3/uL (0.00-0.01); Neutrophils # (A) 4.32 X 10*3/uL (1.80-7.70); Neutrophils % (A) 60.9 %; Platelet Count 252 X 10*3/uL (140-440); RBC 5.07 X 10*6/uL (4.40-5.60); RDW 12.7 % (11.5-14.5); WBC 7.09 X 10*3/uL (4.50-10.00)
[2024-01-28 10:59] LABS: ALT 28 U/L (10-49); AST 28 U/L (14-35); Albumin 4.4 g/dL (3.8-4.9); Albumin/Globulin Ratio 1.91 Ratio (1.60-3.17); Alkaline Phosphatase 100 U/L (41-126); Blood Urea Nitrogen 15.3 mg/dL (9.0-27.0); Calcium 9.3 mg/dL (8.7-10.3); Carbon Dioxide 22.4 mmol/L (21.6-31.8); Chloride 103 mmol/L (96-109); Globulin 2.3 g/dL (1.6-3.3); Glucose 110 mg/dL (70-110); Sodium 139 mmol/L (135-145); Total Bilirubin 0.7 mg/dL (0.3-1.2); Total Protein 6.7 g/dL (6.2-8.2)
--- NOTE | 2024-01-28 13:37 | P.PN ---
Subjective Progress Note Date: 01/28/24 This is a 68-year-old male with a previous medical history significant for hypertension and hypertensive cardiovascular disease, hyperlipidemia, chronic obstructive pulmonary disease, CAD, hypothyroidism, osteoarthritis status post right total knee arthroplasty, GERD with esophagitis, major depr essive disorder and anxiety disorder, history of quad tendon tear treated at [facility] for repair with and had intraparenchymal bleed that was resolved patient was recently seen in the emergency department at [facility] January 14 and January 19 he was diagnosed with acute diverticulitis, he was placed on oral antibiotic in the form of amoxicillin/clavulanate 875 mg orally twice every day for 7 days, and patient was supposed to come to see me in the office yesterday but instead he ended up coming to the emergency department because of intractable abdominal pain associ ated with nausea but no vomiting but significant diarrhea, patient was evaluated in the emergency department, had leukocytosis mild and he did not have any other abnormalities, he still have few more days of oral antibiotic, but the patient is not doing better, therefore he was admitted to the hospital for evaluation by gastroenterology, he was placed on IV fluid resuscitation, and he was started on Zosyn 3.375 g piggyback every 8 hours, GI consultation was obtained from Dr. Patrick 01/27. Patient seen examined. States he still having terminal pain, was currently on a regular diet, told patient that we need to switch him to clear liquid diet. REVIEW OF SYSTEMS: CONSTITUTIONAL: No fever, no malaise,. CARDIOVASCULAR: No chest pain, no palpitations, no syncope. PULMONARY: No shortness of breath, no cough, GASTROINTESTINAL: No diarrhea, no nausea, no vomiting, NEUROLOGICAL: No headaches, no weakness, PHYSICAL EXAMINATION: GENERAL: The patient is alert and oriented x3, not in any acute distress. Well developed, well nourished. HEENT: Pupils are round and equally reacting to light. EOMI. No scleral icterus. No conjunctival pallor. Normocephalic, atraumatic. No pharyngeal erythema. No thyromegaly. CARDIOVASCULAR: S1 and S2 present. No murmurs, rubs, or gallops. PULMONARY: Chest is clear to auscultation, no wheezing or crackles. ABDOMEN: Soft, nontender, nondistended, normoactive bowel sounds. No palpable organomegaly. MUSCULOSKELETAL: No joint swelling or deformity. EXTREMITIES: No cyanosis, clubbing, or pedal edema. NEUROLOGICAL: Gross neurological examination did not reveal any focal deficits. SKIN: No rashes. Assessment and plan Acute diverticulitis. Monitor vital signs monitor CBC Monitor CMP Continue pain management continue IV fluids Continue IV Zosyn Change diet to clear liquid GI evaluated, recommend continuation of antibiotics. ID consulted 2. Intractable nausea and vomiting likely related to acute diverticulitis. Continue antiemetics 3. Acute kidney injury due to acute tubular necrosis. Monitor BMP Continue IV fluids 4. Coronary artery disease status post multiple PCI's. Continue Plavix and ASA , continue Repatha 140 mg subcu venously every 2 weeks, monitor lipid panel, keep LDL 5570. 5. Hypertension and hypertensive cardiovascular disease, continue patient on clonidine 0.1 mg orally twice every day, monitor the patient blood pressure very closely. 6. Mixed hyperlipidemia. Patient is intolerant to statins. Continue with Repatha 140 mg subcutaneously every 2 weeks keep LDL less than 50 7. Hypothyroidism. Continue Synthroid 75 g orally once every day. 8. GERD with esophagitis and hiatal hernia. Continue patient on pantoprazole 40 mg oral twice daily. 9. Generalized anxiety disorder and depressive disorder. Continue patient on duloxetine 30 mg orally once every day. 10. DVT prophylaxis. Continue patient on Lovenox 40 mg subcutaneously every 24 hours. 11. GI prophylaxis. Continue pantoprazole 40 mg orally twice every day. Labs and medication were reviewed.. Continue same treatment. Continue with symptomatic treatment. Resume home medication. Monitor labs and vitals. DVT and GI prophylaxis. Further recommendations as per clinical course of the patient Dictation was produced using [employer] dictation software. please excuse any grammatical, word or spelling errors. Objective - Vital Signs Vital signs: Vital Signs Temp 97.7 F 01/28/24 07:30 Pulse 69 01/28/24 07:30 Resp 17 01/28/24 07:30 BP 166/98 01/28/24 07:30 Pulse Ox 99 01/28/24 07:30 FiO2 Intake & Output 01/27/24 01/28/24 01/28/24 18:59 06:59 18:59 Intake Total 1600 118 118 Balance 1600 118 118 Weight 102.058 kg Intake: Intake, IV Titration 1000 Amount Piperacillin-Tazobactam 3 100 .375 gm In Sodium Chloride 0.9% 100 ml @ 200 mls/hr IVPB Q8HR CYNDIE Rx#:[id number] Sodium Chloride 0.9% 1, 900 000 ml @ 130 mls/hr IV . Q7H42M CYNDIE Rx#:[id number] Oral 600 118 118 Other: # Voids 3 3 # Bowel Movements 0 1 - Labs CBC & Chem 7: 01/28/24 05:58 01/28/24 05:58 Labs: Abnormal Lab Results - Last 24 Hours (Table) 01/28/24 Range/Units 05:58 Anion Gap 13.60 H (4.00-12.00) mmol/L
[2024-01-28] MEDS: ONDANSETRON 4 MG/2 ML VIAL IVP PRN (19:56)
--- NOTE | 2024-01-29 07:45 | P.CONS ---
History of Present Illness - Reason for Consult Consult date: 01/28/24 Acute diverticulitis, failed outpatient therapy Requesting physician: Socrates Boyer - Chief Complaint Abdominal pain x 2 weeks - History of Present Illness Patient is a 68-year-old male with a past medical history significant for atrial fibrillation coronary artery disease COPD DVT hypertension hyperlipidemia, diverticulitis presenting to the hospital for evaluation of abdominal pain and this patient apparently has been seen in the ER on 01/15/2024 as well as 01/20/2024 has been diagnosed with diverticulitis and has been treated with oral Augmentin however patient has been complaining of increasing pain to the left lower quadrant area for the last 12 days patient will describe the pain to be sharp almost 10 of 10 in severity without any radiation patient has been complaining of some nausea but no vomiting did have some constipation on presentation to the hospital the patient was afebrile no fever have been recorded subsequently patient was not tachycardic hypotensive or hypoxic patient did have white count of 12.6 with a left shift BUN and creatinine has been mildly elevated liver enzymes are normal urine has been mildly positive patient did have a CT abdominal pelvis with evidence of uncomplicated diverticulitis and did not mention any perforation or abscess patient was started on Zosyn infectious was consulted today for further management of antibiotic therapy Review of Systems Positive point and negatives has been mentioned in the HPI, complete review of systems was performed and all other systems are negative Past Medical History Past Medical History: Atrial Fibrillation, Coronary Artery Disease (CAD), Chest Pain / Angina, COPD, Deep Vein Thrombosis (DVT), GERD/Reflux, GI Bleed, Hyperlipidemia, Hypertension, Myocardial Infarction ([place]), Musculoskeletal Disorder, Osteoarthritis (OA), Pneumonia, Renal Disease, Syncope, Thyroid Disorder Additional Past Medical History / Comment(s): Paroxysmal afib, hx of fall with fx stenum/ribs, episodes of acute renal failure associated with dehydration, past melana stools, diverticulitis, IBS, return of hiatal hernia, bronchitis, hypothyroid, chronic low back pain with bilateral sciatica, lumbar DDD, past migraines, DJD, numbness/tingling bilateral legs/feet, 4 DVTs L leg surgically removed. ,covid + July 2021, hx of hematemesis with recent egd- erosions. Last Myocardial Infarction Date:: 10/15/21 History of Any Multi-Drug Resistant Organisms: None Reported Past Surgical History: Back Surgery, Cholecystectomy, Heart Catheterization, Heart Catheterization With Stent, Hernia Repair, Orthopedic Surgery Additional Past Surgical History / Comment(s): Back fusions L3-L5, ORIF L ankle, L hand fracture with surgery, R knee arthroscopy x2, R elbow tendon release, R shoulder arthroscopy, L shoulder arthroscopy, lumbar spine cyst removed, pain clinic procedures, taylor fundoplication, EGD, colonoscopy, 2019 arteriogram/thrombus extraction at [facility]. PTCA w/ 3 stents now. rt knee replacemnt, right quad repair Past Anesthesia/Blood Transfusion Reactions: No Reported Reaction Date of Last Stent Placement:: 10/15/21 Smoking Status: Former smoker - Past Family History Mother Family Medical History: No Reported History, Thyroid Disorder Additional Family Medical History / Comment(s): . Father Family Medical History: Coronary Artery Disease (CAD), Diabetes Mellitus Additional Family Medical History / Comment(s): Father had CABG. He at the age of 84 yrs in a MVA. Sister(s) Family Medical History: Cancer Additional Family Medical History / Comment(s): Sister #1 skin cancer, sister #2 thyroid cancer. Medications and Allergies Home Medications Medication Instructions Recorded Confirmed Type Levothyroxine Sodium [Synthroid] 75 mcg PO DAILY 05/04/16 01/27/24 History Aspirin 81 mg PO DAILY #30 tab 10/17/21 01/27/24 Rx Pantoprazole [Protonix] 40 mg PO AC-BID #60 tab 10/22/21 01/27/24 Rx cloNIDine HCL [Catapres] 0.1 mg PO BID tab 10/22/21 01/27/24 Rx Clopidogrel [Plavix] 75 mg PO DAILY 09/24/22 01/27/24 History DULoxetine HCL [Cymbalta] 30 mg PO HS 11/28/23 01/27/24 History Amoxic-Pot Clav 875-125Mg 1 tab PO Q12HR 01/20/24 01/27/24 History [Augmentin 875-125] Allergies Allergy/AdvReac Type Severity Reaction Status Date / Time rivaroxaban [From Xarelto] AdvReac Severe Nausea & Verified 01/27/24 11:26 Vomiting & Diarrhea,cramps,sweating paroxetine HCl [From Paxil] AdvReac Unknown Nausea & Verified 01/27/24 11:26 Vomiting & Diarrhea,cramps,sweating apixaban [From Eliquis] AdvReac Nausea & Verified 01/27/24 11:26 Vomiting & Diarrhea,cramps,sweating atorvastatin [From Lipitor] AdvReac Nausea & Verified 01/27/24 11:26 Vomiting & Diarrhea,cramps,sweating Beta-Blockers AdvReac Nausea & Verified 01/27/24 11:26 (Beta-Adrenergic Bloc Vomiting & Diarrhea,cramps,sweating gabapentin AdvReac Nausea & Verified 01/27/24 11:26 Vomiting & Diarrhea,cramps,sweating pregabalin AdvReac Nausea & Verified 01/27/24 11:26 Vomiting & Diarrhea Afjjwih-ZMG-GmI Reductase AdvReac Nausea & Verified 01/27/24 11:26 Inhibitor Vomiting & Diarrhea,cramps,sweating warfarin AdvReac Nausea & Verified 01/27/24 11:26 Vomiting & Diarrhea,cramps,sweating Physical Exam Vitals: Vital Signs Temp Pulse Resp BP BP Pulse Ox 01/28/24 07:30 97.7 F 69 17 166/98 99 01/28/24 01:49 97.8 F 76 16 129/81 98 01/27/24 18:50 98.6 F 74 18 137/81 96 01/27/24 17:12 97.5 F L 69 17 161/95 98 01/27/24 14:37 97.6 F 75 20 149/96 98 Intake and Output 01/27/24 01/28/24 01/28/24 22:59 06:59 14:59 Intake Total 118 118 Balance 118 118 Intake: Oral 118 118 Other: # Voids 1 3 # Bowel Movements 1 Weight 102.058 kg GENERAL DESCRIPTION: Elderly male lying in bed, no distress. No tachypnea or accessory muscle of respiration use. HEENT: Shows Pallor , no scleral icterus. Oral mucous membrane is dry. No pharyngeal erythema or thrush NECK: Trachea central, no thyromegaly. LUNGS: Unlabored breathing. Clear to auscultation anteriorly. No wheeze or crackle. HEART: S1, S2, regular rate and rhythm. No loud murmur ABDOMEN: Soft, left-sided tenderness , no guarding or rigidity EXTREMITIES: No edema of feet. SKIN: No rash, no masses palpable. NEUROLOGICAL: The patient is awake, alert, oriented x3, mood and affect normal. Results CBC & Chem 7: 01/28/24 05:58 01/28/24 05:58 Labs: Abnormal Lab Results - Last 24 Hours (Table) 01/28/24 Range/Units 05:58 Anion Gap 13.60 H (4.00-12.00) mmol/L Assessment and Plan (1) Failure of outpatient treatment Current Visit: Yes Status: Acute Code(s): Z78.9 - OTHER SPECIFIED HEALTH STATUS SNOMED Code(s): 537181965 (2) Diverticulitis of sigmoid colon Current Visit: Yes Status: Acute Code(s): K57.32 - DVTRCLI OF LG INT W/O PERFORATION OR ABSCESS W/O BLEEDING SNOMED Code(s): 978217156 Plan: 1patient presented to hospital with abdominal pain left-sided in this patient who did have elevated white count CT abdominal pelvis did shows evidence of uncomplicated diverticulitis failing outpatient oral Augmentin therapy 2patient will be advised Zosyn 3.375 g every 8 hour along with bowel rest 3if the patient continue to improve finishing therapy with oral Ceftin and Flagyl and dietary precautions Question concern answered We will follow on clinical condition and cultures to further adjust medication if needed Thank you for this consultation we will follow the patient along with you Dictation was produced using [employer] dictation software. please excuse any grammatical, word or spelling errors. Time with Patient: Greater than 30
--- NOTE | 2024-01-29 13:12 | P.PN ---
Subjective Progress Note Date: 01/29/24 This is a 68-year-old male with a previous medical history significant for hypertension and hypertensive cardiovascular disease, hyperlipidemia, chronic obstructive pulmonary disease, CAD, hypothyroidism, osteoarthritis status post right total knee arthroplasty, GERD with esophagitis, major depr essive disorder and anxiety disorder, history of quad tendon tear treated at [facility] for repair with and had intraparenchymal bleed that was resolved patient was recently seen in the emergency department at [facility] January 14 and January 19 he was diagnosed with acute diverticulitis, he was placed on oral antibiotic in the form of amoxicillin/clavulanate 875 mg orally twice every day for 7 days, and patient was supposed to come to see me in the office yesterday but instead he ended up coming to the emergency department because of intractable abdominal pain associ ated with nausea but no vomiting but significant diarrhea, patient was evaluated in the emergency department, had leukocytosis mild and he did not have any other abnormalities, he still have few more days of oral antibiotic, but the patient is not doing better, therefore he was admitted to the hospital for evaluation by gastroenterology, he was placed on IV fluid resuscitation, and he was started on Zosyn 3.375 g piggyback every 8 hours, GI consultation was obtained from Dr. Patrick 01/27. Patient seen examined. States he still having terminal pain, was currently on a regular diet, told patient that we need to switch him to clear liquid diet. 01/28. Patient seen and examined. States he feels slightly better compared to yesterday, diet advanced from clear liquid to full liquid today REVIEW OF SYSTEMS: CONSTITUTIONAL: No fever, no malaise,. CARDIOVASCULAR: No chest pain, no palpitations, no syncope. PULMONARY: No shortness of breath, no cough, GASTROINTESTINAL: No diarrhea, no nausea, no vomiting, NEUROLOGICAL: No headaches, no weakness, PHYSICAL EXAMINATION: GENERAL: The patient is alert and oriented x3, not in any acute distress. Well developed, well nourished. HEENT: Pupils are round and equally reacting to light. EOMI. No scleral icterus. No conjunctival pallor. Normocephalic, atraumatic. No pharyngeal erythema. No thyromegaly. CARDIOVASCULAR: S1 and S2 present. No murmurs, rubs, or gallops. PULMONARY: Chest is clear to auscultation, no wheezing or crackles. ABDOMEN: Soft, nontender, nondistended, normoactive bowel sounds. No palpable organomegaly. MUSCULOSKELETAL: No joint swelling or deformity. EXTREMITIES: No cyanosis, clubbing, or pedal edema. NEUROLOGICAL: Gross neurological examination did not reveal any focal deficits. SKIN: No rashes. Assessment and plan Acute diverticulitis. Monitor vital signs monitor CBC Monitor CMP Continue pain management continue IV fluids Continue IV Zosyn Advance diet to full liquid GI evaluated, recommend continuation of antibiotics. ID following 2. Intractable nausea and vomiting likely related to acute diverticulitis. Continue antiemetics 3. Acute kidney injury due to acute tubular necrosis. Monitor BMP Continue IV fluids 4. Coronary artery disease status post multiple PCI's. Continue Plavix and ASA , continue Repatha 140 mg subcu venously every 2 weeks, monitor lipid panel, keep LDL 5570. 5. Hypertension and hypertensive cardiovascular disease, continue patient on clonidine 0.1 mg orally twice every day, monitor the patient blood pressure very closely. 6. Mixed hyperlipidemia. Patient is intolerant to statins. Continue with Repatha 140 mg subcutaneously every 2 weeks keep LDL less than 50 7. Hypothyroidism. Continue Synthroid 75 g orally once every day. 8. GERD with esophagitis and hiatal hernia. Continue patient on pantoprazole 40 mg oral twice daily. 9. Generalized anxiety disorder and depressive disorder. Continue patient on duloxetine 30 mg orally once every day. 10. DVT prophylaxis. Continue patient on Lovenox 40 mg subcutaneously every 24 hours. 11. GI prophylaxis. Continue pantoprazole 40 mg orally twice every day. Labs and medication were reviewed.. Continue same treatment. Continue with symptomatic treatment. Resume home medication. Monitor labs and vitals. DVT and GI prophylaxis. Further recommendations as per clinical course of the patient Dictation was produced using [employer] dictation software. please excuse any grammatical, word or spelling errors. Objective - Vital Signs Vital signs: Vital Signs Temp 97.6 F 01/29/24 07:15 Pulse 80 01/29/24 07:15 Resp 16 01/29/24 07:15 BP 129/88 01/29/24 07:15 Pulse Ox 95 01/29/24 07:15 FiO2 Intake & Output 01/28/24 01/29/24 01/29/24 18:59 06:59 18:59 Intake Total 442 Balance 442 Intake: Oral 442 Other: Voiding Method Toilet # Voids 5 5 # Bowel Movements 1 - Labs CBC & Chem 7: 01/28/24 05:58 01/28/24 05:58 Labs: Abnormal Lab Results - Last 24 Hours (Table) 01/28/24 Range/Units 05:58 Anion Gap 13.60 H (4.00-12.00) mmol/L
[2024-01-30 07:42] VITALS: BP 145/91; PULSE 75; RESP 18; TEMP 98.1
--- NOTE | 2024-01-30 08:34 | P.PN ---
Subjective Progress Note Date: 01/29/24 Principal diagnosis: Reason for follow-up is diverticulitis Patient is a 68-year-old male with a past medical history significant for atrial fibrillation coronary artery disease COPD DVT hypertension hyperlipidemia, diverticulitis presenting to the hospital for evaluation of abdominal pain and has been diagnosed with diverticulitis failing outpatient oral Augmentin therapy. On today's evaluation that is 01/29/2024, Patient is afebrile patient is currently on room air and denies having any shortness of breath, the patient denies any chest pain or cough, the patient denies any nausea vomiting and abdominal pain has slightly decreased in intensity. Patient white count 7.09, creatinine is 1.0 Objective - Vital Signs Vital signs: Vital Signs Temp 97.7 F 01/29/24 01:35 Pulse 73 01/29/24 01:35 Resp 16 01/29/24 01:35 BP 146/94 01/29/24 01:35 Pulse Ox 98 01/29/24 01:35 FiO2 Intake & Output 01/28/24 01/29/24 01/29/24 18:59 06:59 18:59 Intake Total 442 Balance 442 Intake: Oral 442 Other: Voiding Method Toilet # Voids 5 5 # Bowel Movements 1 - Exam GENERAL DESCRIPTION: An elderly male lying in bed in no distress RESPIRATORY SYSTEM: Unlabored breathing , decreased breath sounds at bases HEART: S1 S2 regular rate and rhythm , ABDOMEN: Soft , no tenderness EXTREMITIES: No edema feet - Labs CBC & Chem 7: 01/28/24 05:58 01/28/24 05:58 Labs: Abnormal Lab Results - Last 24 Hours (Table) 01/28/24 Range/Units 05:58 Anion Gap 13.60 H (4.00-12.00) mmol/L Assessment and Plan (1) Failure of outpatient treatment Current Visit: Yes Status: Acute Code(s): Z78.9 - OTHER SPECIFIED HEALTH STATUS SNOMED Code(s): 847700991 (2) Diverticulitis of sigmoid colon Current Visit: Yes Status: Acute Code(s): K57.32 - DVTRCLI OF LG INT W/O PERFORATION OR ABSCESS W/O BLEEDING SNOMED Code(s): 901043752 Plan: 1patient presented to hospital with abdominal pain left-sided in this patient who did have elevated white count CT abdominal pelvis did shows evidence of uncomplicated diverticulitis failing outpatient oral Augmentin therapy 2patient did have some improvement in his abdominal pain white count normalized, to continue Zosyn 3.375 g every 8 hour along with bowel rest, finishing therapy with oral Ceftin and Flagyl and dietary precautions Question concern answered Dictation was produced using [employer] dictation software. please excuse any grammatical, word or spelling errors. Time with Patient: Less than 30
--- NOTE | 2024-01-30 14:04 | P.DS ---
Providers Date of admission: 01/27/24 00:36 Expected date of discharge: 01/30/24 Attending physician: Sammie Mercedes Consults: 01/26/24 23:18 Consult Physician Stat Consulting Provider: Caridad Patrick Consult Reason/Comments: Diverticulitis with intractable pain Do you want consulting provider notified?: Yes, Notify in am 01/28/24 11:22 Consult Physician Routine Consulting Provider: Shady Morel Consult Reason/Comments: Acute diverticulitis, failed outpatient treatment Do you want consulting provider notified?: Yes Primary care physician: Sammie Mercedes Hospital Course: Discharge diagnoses; Acute diverticulitis. Monitor vital signs monitor CBC Monitor CMP Continue pain management continue IV fluids Continue IV Zosyn Advance diet to full liquid GI evaluated, recommend continuation of antibiotics. ID following 01/29 tolerating diet, being discharged on oral Ceftin and Flagyl for 7 more days to complete a 10-day course of antibiotics 2. Intractable nausea and vomiting resolved 3. Acute kidney injury due to acute tubular necrosis. Resolved 4. Coronary artery disease status post multiple PCI's. Continue Plavix and ASA , continue Repatha 140 mg subcu venously every 2 weeks, monitor lipid panel, keep LDL 5570. 5. Hypertension and hypertensive cardiovascular disease, continue patient on clonidine 0.1 mg orally twice every day, monitor the patient blood pressure very closely. 6. Mixed hyperlipidemia. Patient is intolerant to statins. Continue with Repatha 140 mg subcutaneously every 2 weeks keep LDL less than 50 7. Hypothyroidism. Continue Synthroid 75 g orally once every day. 8. GERD with esophagitis and hiatal hernia. Continue patient on pantoprazole 40 mg oral twice daily. 9. Generalized anxiety disorder and depressive disorder. Continue patient on duloxetine 30 mg orally once every day. Hospital course; This is a 68-year-old male with a previous medical history significant for hypertension and hypertensive cardiovascular disease, hyperlipidemia, chronic obstructive pulmonary disease, CAD, hypothyroidism, osteoarthritis status post right total knee arthroplasty, GERD with esophagitis, major depressive disorder and anxiety disorder, history of quad tendon tear treated at [facility] for repair with and had intraparenchymal bleed that was resolved patient was recently seen in the emergency department at [facility] January 14 and January 19 he was diagnosed with acute diverticulitis, he was placed on oral antibiotic in the form of amoxicillin/clavulanate 875 mg orally twice every day for 7 days, and patient was supposed to come to see me in the office yesterday but instead he ended up coming to the emergency department because of intractable abdominal pain associated with nausea but no vomiting but significant diarrhea, patient was evaluated in the emergency department, had leukocytosis mild and he did not have any other abnormalities, he still have few more days of oral antibiotic, but the patient is not doing better, therefore he was admitted to the hospital for evaluation by gastroenterology, he was placed on IV fluid resuscitation, and he was started on Zosyn 3.375 g piggyback every 8 hours, GI consultation was obtained from Dr. Patrick 01/27. Patient seen examined. States he still having terminal pain, was currently on a regular diet, told patient that we need to switch him to clear liquid diet. 01/28. Patient seen and examined. States he feels slightly better compared to yesterday, diet advanced from clear liquid to full liquid today 01/29. Patient seen and examined. Tolerating diet. Discussed with ID, they recommended Ceftin and Flagyl at discharge to complete a 10-day course of antibiotics. Patient will need outpatient colonoscopy in 4 to 6 weeks PHYSICAL EXAMINATION: GENERAL: The patient is alert and oriented x3, not in any acute distress. Well developed, well nourished. HEENT: Pupils are round and equally reacting to light. EOMI. No scleral icterus. No conjunctival pallor. Normocephalic, atraumatic. No pharyngeal erythema. No thyromegaly. CARDIOVASCULAR: S1 and S2 present. No murmurs, rubs, or gallops. PULMONARY: Chest is clear to auscultation, no wheezing or crackles. ABDOMEN: Soft, nontender, nondistended, normoactive bowel sounds. No palpable organomegaly. MUSCULOSKELETAL: No joint swelling or deformity. EXTREMITIES: No cyanosis, clubbing, or pedal edema. NEUROLOGICAL: Gross neurological examination did not reveal any focal deficits. SKIN: No rashes. Dictation was produced using [employer] dictation software. please excuse any grammatical, word or spelling errors. Patient Condition at Discharge: Good Plan - Discharge Summary New Discharge Prescriptions: New Dicyclomine [Bentyl] 20 mg PO QID PRN 7 Days #28 tab PRN Reason: Dyspepsia metroNIDAZOLE [Flagyl] 500 mg PO TID 7 Days #21 tab cefuroxime axetiL [Ceftin] 500 mg PO BID 7 Days #14 tab Continue Levothyroxine Sodium [Synthroid] 75 mcg PO DAILY Pantoprazole [Protonix] 40 mg PO AC-BID #60 tab cloNIDine HCL [Catapres] 0.1 mg PO BID tab Clopidogrel [Plavix] 75 mg PO DAILY DULoxetine HCL [Cymbalta] 30 mg PO HS Aspirin 81 mg PO DAILY #30 tab Discontinued Amoxic-Pot Clav 875-125Mg [Augmentin 875-125] 1 tab PO Q12HR Discharge Medication List Levothyroxine Sodium [Synthroid] 75 mcg PO DAILY 05/04/16 [History] Aspirin 81 mg PO DAILY #30 tab 10/17/21 [Rx] Pantoprazole [Protonix] 40 mg PO AC-BID #60 tab 10/22/21 [Rx] cloNIDine HCL [Catapres] 0.1 mg PO BID tab 10/22/21 [Rx] Clopidogrel [Plavix] 75 mg PO DAILY 09/24/22 [History] DULoxetine HCL [Cymbalta] 30 mg PO HS 11/28/23 [History] Dicyclomine [Bentyl] 20 mg PO QID PRN 7 Days #28 tab 01/30/24 [Rx] cefuroxime axetiL [Ceftin] 500 mg PO BID 7 Days #14 tab 01/30/24 [Rx] metroNIDAZOLE [Flagyl] 500 mg PO TID 7 Days #21 tab 01/30/24 [Rx] Follow up Appointment(s)/Referral(s): Sammie Mercedes MD [Primary Care Provider] - 1-2 days Discharge Disposition: HOME SELF-CARE
--- NOTE | 2024-01-30 22:55 | P.PN ---
Subjective Progress Note Date: 01/30/24 Principal diagnosis: Reason for follow-up is diverticulitis Patient is a 68-year-old male with a past medical history significant for atrial fibrillation coronary artery disease COPD DVT hypertension hyperlipidemia, diverticulitis presenting to the hospital for evaluation of abdominal pain and has been diagnosed with diverticulitis failing outpatient oral Augmentin therapy. On today's evaluation that is 01/30/2024, the patient continues to be afebrile, patient is breathing comfortably on room air. Denies having any chest pain shortness of breath or cough no nausea vomiting abdominal pain has decreased in intensity feeling better wants to go home. Patient did not have any new lab draw today and no culture were done Objective - Vital Signs Vital signs: Vital Signs Temp 98.1 F 01/30/24 07:41 Pulse 75 01/30/24 07:41 Resp 18 01/30/24 07:41 BP 145/91 01/30/24 07:41 Pulse Ox 96 01/30/24 07:41 FiO2 Intake & Output 01/29/24 01/30/24 01/30/24 18:59 06:59 18:59 Other: Voiding Method Toilet # Voids 7 2 # Bowel Movements 0 - Exam GENERAL DESCRIPTION: An elderly male lying in bed in no distress RESPIRATORY SYSTEM: Unlabored breathing , decreased breath sounds at bases HEART: S1 S2 regular rate and rhythm , ABDOMEN: Soft , no tenderness EXTREMITIES: No edema feet - Labs CBC & Chem 7: 01/28/24 05:58 01/28/24 05:58 Assessment and Plan (1) Failure of outpatient treatment Status: Acute Code(s): Z78.9 - OTHER SPECIFIED HEALTH STATUS SNOMED Code(s): 237162355 (2) Diverticulitis of sigmoid colon Status: Acute Code(s): K57.32 - DVTRCLI OF LG INT W/O PERFORATION OR ABSCESS W/O BLEEDING SNOMED Code(s): 928891673 Plan: 1patient presented to hospital with abdominal pain left-sided in this patient who did have elevated white count CT abdominal pelvis did shows evidence of uncomplicated diverticulitis failing outpatient oral Augmentin therapy 2patient did have improvement in his abdominal pain the patient white count already normalized we will consider a 10-day course of oral Ceftin and Flagyl on discharge discussed with the covering admitting team Dictation was produced using dragon dictation software. please excuse any grammatical, word or spelling errors. Time with Patient: Less than 30
== END 2024-01-30 14:40 | disposition home or self-care (01) ==
LOC: EC 13:05 → 6NMEDSUR 01-27 00:36
PROVIDERS: ADMIT Internal Medicine; ATTEND Internal Medicine
DX: K57.32 Diverticulitis of large intestine without perforation or abscess without bleeding (principal); N17.0 Acute kidney failure with tubular necrosis; I25.10 Atherosclerotic heart disease of native coronary artery without angina pectoris; I11.9 Hypertensive heart disease without heart failure; E78.2 Mixed hyperlipidemia; E03.9 Hypothyroidism, unspecified; K21.00 Gastro-esophageal reflux disease with esophagitis, without bleeding; K44.9 Diaphragmatic hernia without obstruction or gangrene; F41.1 Generalized anxiety disorder; F32.9 Major depressive disorder, single episode, unspecified; I25.2 Old myocardial infarction; I48.0 Paroxysmal atrial fibrillation; Z95.5 Presence of coronary angioplasty implant and graft; J44.9 Chronic obstructive pulmonary disease, unspecified; K58.9 Irritable bowel syndrome, unspecified; Z79.02 Long term (current) use of antithrombotics/antiplatelets; Z79.82 Long term (current) use of aspirin; Z79.890 Hormone replacement therapy; Z79.899 Other long term (current) drug therapy; Z87.891 Personal history of nicotine dependence; Z90.49 Acquired absence of other specified parts of digestive tract; Z88.8 Allergy status to other drugs, medicaments and biological substances
CPT/HCPCS: 96376 ×6; 96366 ×5; 96372 ×2; 96361; 96365; 96375; 99285; 36415; 80053 ×2; 83605; 85025 ×2; 81001; 74177; G0378 ×4; J2543 ×5; J2405 ×2; J1650 ×2; J1171 ×8; J1885; Q9967